=== PATIENT | female | born 1955 | race Caucasian/White ===

== ENCOUNTER 2020-06-06 23:49 | Inpatient (IN) | payer BC ==
--- OUTSIDE RECORDS SUMMARY | 2020-06-06 23:52 | XMS REPORT | Continuity of Care Document ---
:1955 Author Organization [facility] t Address [address] [place] [address] Care Team Providers Name Role Phone Kael MEADOWS MD, A Primary Care Physician Yadira MURPHY Attending Clinician Unavailable Kaci PARSONS, R. 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 2-02 [facility] disease disease 00:00: st involving involving 00 [place] 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 pectoris SOB SOB Disease Active [place] (shortness (shortness 2-02 Me thodi of breath) of breath) 00:00: st 00 Aortic Aortic Disease Active [place] valve valve 2-02 [facility] disorder disorder 00:00: st 00 Allergies, Adverse Reactions, Alerts Allergy Allergy Status Severity Reaction(s) Onset Inactive Treating Comm ents Source Name Type Date Date Clinician Latex, Propensi Active Itching [place] Natural ty to Methodi Rubber adverse st reaction s to drug Family History Family Member Diagnosis Comments Start Date Stop Date Source Natural father Cancer [facility] Natural mother Heart disease [place] [facility] Social History Social Habit Start Date Stop Date Quantity Comments Source History [facility] Alcohol Std Drinks History [facility] Alcohol Binge Alcohol intake 2018-03-19 2018-03-19 Current [place] [facility] 00:00:00 00:00:00 non-drinker of alcohol (finding) History SDOH 2018-03-19 2018-03-19 1 [place] [facility] Alcohol Frequency 00:00:00 00:00:00 Tobacco use and 2018-03-19 2018-03-19 Never used [place] Ryan [facility]ist exposure 00:00:00 00:00:00 [birth year] [place] [facility] 00:00:00 00:00:00 Smoking Status Start Date Stop Date Source Former smoker 2018-03-19 00:00:00 2018-03-19 00:00:00 [place] [facility] Medications Ordered Filled Start Stop Current Ordering Indication Dosage Frequency Signature Comments Components Source Medication Medication Date Date Medication? Clinician (SIG) Name Name lisinopriL- Yes Aortic 1{tbl} QD Take 1 [place] hydrochloro 1-25 valve tablet by [place] thodi thiazide 00:00: disorder mouth st (PRINZIDE) 00 daily. 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 st enteric 47 coated tablet fexofenadin Yes Take by Timmy roberto e HCl 8- mouth as Methodi (JAYCOB 11:39: needed. st ODT ORAL) 47 cetirizine Yes 10mg Q24H Take 10 mg [place] (ZyrTEC) 10 8-13 by mouth Meth denis MG tablet 11:39: daily as st 47 needed for allergies. mvit,calc,m Yes Take by Timmy roberto in-folic 8- mouth. [facility] [id number] 11:39: st 200 mcg 47 tablet coenzyme Yes [place] Q10 (CO 09-23 [facility] Q-10) 100 00:00: st mg capsule 00 cholecalcif Yes Enrrique severino alex, 09-17 [facility] vitamin D3, 00:00: st (VITAMIN 00 D3) 5,000 unit tablet docusate Yes [place] sodium 01 [facility] (COLACE) 00:00: st 100 MG 00 capsule ferrous Yes [place] sulfate 325 7-17 [facility] (65 FE) MG 00:00: st tablet 00 sertraline Yes [place] (ZOLOFT) 7-15 [facility] 100 MG 00:00: st tablet 00 Vital Signs Vital Name Observation Time Observation Value Comments Source Systolic blood 2019-09-27 11:07:00 123 mm[Hg] Enrrique n [facility] pressure Diastolic blood 2019-09-27 11:07:00 80 mm[Hg] [place] on [facility] pressure Heart rate 2019-09-27 11:07:00 70 /min Marino Elliott Body height 2019-09-27 11:07:00 154.9 cm Marino Elliott Body weight 2019-09-27 11:07:00 129.275 kg Marino Elliott BMI 2019-09-27 11:07:00 53.85 kg/m2 Marino Elliott Procedures This patient has no known procedures. Plan of Care Planned Activity Planned Date Details Comments Source Future Scheduled 2020-09-16 INFLUENZA VACCINE [place] [facility] Test 00:00:00 [code = INFLUENZA VACCINE] Future Scheduled 2006 BREAST CANCER [facility] Test 00:00:00 SCREENING [code = BREAST CANCER SCREENING] Future Scheduled 2006 COLONOSCOPY SCREENING [place] [facility] Test 00:00:00 [code = COLONOSCOPY SCREENING] Future Scheduled 2006 SHINGLES VACCINES [place] [facility] Test 00:00:00 (#1) [code = SHINGLES VACCINES (#1)] Future Scheduled 1977 Screening for [facility] Test 00:00:00 malignant neoplasm of cervix (procedure) [code = 066165067] Future Scheduled 1974 Hepatitis C screening [place] [facility] Test 00:00:00 (procedure) [code = 187064200] Future Scheduled 1972 COVID-19 VACCINE (1) Timmy ston [facility] Test 00:00:00 [code = COVID-19 VACCINE (1)] Encounters Start End Encounter Admission Attending Care Care Encounter Source Date/Time Date/Time Type Type Clinicians Facility Department ID 2019-09-27 2019-09-27 Outpatient [facility] [id number] 395 [place] 00:00:00 00:00:00 [facility] [address] Results This patient has no known results.
[2020-06-07 00:56] LABS: Absolute Lymphocytes (CBC) 1.4 K/uL (0.7-4.9); Basophils % 1.1 % (0-1.3); Hematocrit 40.9 % (36.0-45.0); Lymphocytes % 14.7 % (15.3-44.8); MPV 8.1 fL (7.6-11.3); RBC Red Blood Cell Count 5.03 M/uL (3.86-4.86)
[2020-06-07] MEDS ORDERED: FAMOTIDINE 20 MG/2 ML VIAL IV ONE (01:01)
[2020-06-07] MEDS ORDERED: MORPHINE 2 MG/ML SYR ONE ×2 (01:01→03:08)
[2020-06-07] MEDS ORDERED: ONDANSETRON 4 MG/2 ML VIAL ONE ×3 (01:01→09:26)
[2020-06-07] MEDS ORDERED: NA CHLORIDE 0.9% 1,000 ML ONE ×3 (01:01→14:28)
[2020-06-07 01:03] LABS: ALT/SGPT 19 U/L (12-78); AST/SGOT 14 U/L (15-37); Albumin 3.5 g/dL (3.4-5.0); Alkaline Phosphatase 115 U/L (45-117); BUN Blood Urea Nitrogen 11 mg/dL (7-18); Bicarbonate 28 mmol/L (21-32); Bilirubin Direct < 0.1 mg/dL (0-0.2); Bilirubin Total 0.3 mg/dL (0.2-1.0); Glucose Level 114 mg/dL (74-106); Lipase 172 U/L (73-393); Magnesium 1.9 mg/dL (1.8-2.4); Potassium 3.5 mmol/L (3.5-5.1); Protein, Total 7.6 g/dL (6.4-8.2); Sodium Level 142 mmol/L (136-145); Troponin (Emerg Dept Use Only) < 0.02 ng/mL (0.0-0.045)
[2020-06-07] MEDS ORDERED: PIPER/TAZO/NS 3.375gm 3.375 GM/100 ML BAG ONE ×4 (02:35→18:36)
[2020-06-07] MEDS ORDERED: NA CHLORIDE 0.9% 500 ML ONE (02:35)
--- NOTE | 2020-06-07 03:09 | EDPHYS ---
Physician Documentation [facility] Name: Kindra Novoa Age: 64 yrs Sex: Female : 1955 Arrival Date: 06/06/2020 Time: 23:50 Bed 5 Private MD: ED Physician Esa Swain HPI: 06/07 00:39 This 64 yrs old Female presents to ER via Wheelchair with complaints of mingo Abdominal Pain. 00:39 The patient presents with abdominal pain in the upper abdomen, abdominal distention in mingo the upper abdomen, in the lower abdomen. Onset: The symptoms/episode began/occurred 14 day(s) ago. The symptoms do not radiate. Associated signs and symptoms: none. The symptoms are described as burning, crampy. Modifying factors: The symptoms are alleviated by nothing, the symptoms are aggravated by food. Severity of pain: At its worst the pain was mild moderate in the emergency department the pain is unchanged. The patient has experienced similar episodes in the past, a few times. Historical: - Allergies: 00:03 Latex, Natural Rubber; iw 00:03 BUSPIRONE; iw - Home Meds: 00:03 bupropion HCl 75 mg Oral tab 1 tab 3 times per day [Active]; ferrous sulfate 325 mg (65 iw mg iron) Oral tab daily [Active]; levothyroxine 25 mcg tab 1 tab once daily [Active]; lisinopril-hydrochlorothiazide 10-12.5 mg oral tab 1 tab once daily [Active]; metformin 500 mg Oral tr24 1 tab once daily [Active]; metoprolol tartrate 50 mg Oral tab 1 tab 2 times per day [Active]; sertraline 50 mg oral tab 1 tab once daily [Active]; sertraline 100 mg oral tab 1 tab nightly [Active]; naltrexone 50 mg oral tab 1 tab once daily [Active]; - PMHx: 00:03 Colitis; Hypothyroidism; Hypertension; Depression; iw - PSHx: 00:03 None; iw - Immunization history:: Adult Immunizations not up to date. - Social history:: Smoking status: Patient denies any tobacco usage or history of. - Family history:: not pertinent. ROS: 00:39 Constitutional: Negative for fever, chills, and weight loss, Eyes: Negative for injury, mingo pain, redness, and discharge, ENT: Negative for injury, pain, and discharge, Neck: Negative for injury, pain, and swelling, Cardiovascular: Negative for chest pain, palpitations, and edema, Respiratory: Negative for shortness of breath, cough, wheezing, and pleuritic chest pain, Back: Negative for injury and pain, : Negative for injury, bleeding, discharge, and swelling, MS/Extremity: Negative for injury and deformity, Skin: Negative for injury, rash, and discoloration, Neuro: Negative for headache, weakness, numbness, tingling, and seizure, Psych: Negative for depression, anxiety, suicide ideation, homicidal ideation, and hallucinations, Allergy/Immunology: Negative for hives, rash, and allergies, Endocrine: Negative for neck swelling, polydipsia, polyuria, polyphagia, and marked weight changes, Hematologic/Lymphatic: Negative for swollen nodes, abnormal bleeding, and unusual bruising. 00:39 Abdomen/GI: Positive for abdominal pain, nausea and vomiting, abdominal cramps, abdominal distension. Exam: 00:43 Constitutional: This is a well developed, well nourished patient who is awake, alert, mingo and in no acute distress. Head/Face: Normocephalic, atraumatic. Eyes: Pupils equal round and reactive to light, extra-ocular motions intact. Lids and lashes normal. Conjunctiva and sclera are non-icteric and not injected. Cornea within normal limits. Periorbital areas with no swelling, redness, or edema. ENT: Nares patent. No nasal discharge, no septal abnormalities noted. Tympanic membranes are normal and external auditory canals are clear. Oropharynx with no redness, swelling, or masses, exudates, or evidence of obstruction, uvula midline. Mucous membranes moist. Neck: Trachea midline, no thyromegaly or masses palpated, and no cervical lymphadenopathy. Supple, full range of motion without nuchal rigidity, or vertebral point tenderness. No Meningismus. Chest/axilla: Normal chest wall appearance and motion. Nontender with no deformity. No lesions are appreciated. Cardiovascular: Regular rate and rhythm with a normal S1 and S2. No gallops, murmurs, or rubs. Normal PMI, no JVD. No pulse deficits. Respiratory: Lungs have equal breath sounds bilaterally, clear to auscultation and percussion. No rales, rhonchi or wheezes noted. No increased work of breathing, no retractions or nasal flaring. Back: No spinal tenderness. No costovertebral tenderness. Full range of motion. Female : Normal external genitalia. Skin: Warm, dry with normal turgor. Normal color with no rashes, no lesions, and no evidence of cellulitis. MS/ Extremity: Pulses equal, no cyanosis. Neurovascular intact. Full, normal range of motion. Neuro: Awake and alert, GCS 15, oriented to person, place, time, and situation. Cranial nerves II-XII grossly intact. Motor strength 5/5 in all extremities. Sensory grossly intact. Cerebellar exam normal. Normal gait. Psych: Awake, alert, with orientation to person, place and time. Behavior, mood, and affect are within normal limits. 00:43 Abdomen/GI: Inspection: abdomen appears normal, Bowel sounds: normal, Palpation: moderate abdominal tenderness, in the umbilical area, right upper quadrant and left upper quadrant, Liver: no appreciated palpable abnormalities, Hernia: not appreciated. 01:41 ECG was reviewed by the Attending Physician. mingo Vital Signs: 06/06 23:59 BP 137 / 108; Pulse 81; Resp 16; Temp 97.9(O); Pulse Ox 96% on R/A; Weight 127.01 kg; iw Height 5 ft. 0 in. (152.40 cm); Pain 11/25; 06/07 02:38 BP 128 / 75; Pulse 74; Resp 16; Pulse Ox 100% on R/A; rv 03:58 BP 135 / 78; Pulse 68; Resp 16; Pulse Ox 94% on 2 lpm NC; rv 07:12 BP 119 / 67; Pulse 61; Resp 11; Pulse Ox 99% on R/A; ld1 09:00 BP 134 / 76; Pulse 69; Resp 12; Pulse Ox 96% on 2 lpm NC; Pain 8/10; ld1 10:55 BP 117 / 70; Pulse 63; Resp 13; Pulse Ox 99% on 2 lpm NC; ld1 12:47 BP 128 / 67; Pulse 77; Resp 12; Pulse Ox 98% on 2 lpm NC; Pain 4/10; ld1 14:00 BP 106 / 62; Pulse 68; Resp 12; Temp 97.7; Pulse Ox 98% on 2 lpm NC; Pain 3/10; ld1 15:50 BP 116 / 70; Pulse 66; Resp 12; Pulse Ox 98% on 2 lpm NC; Pain 3/10; ld1 06/06 23:59 Body Mass Index 54.68 (127.01 kg, 152.40 cm) iw MDM: 00:20 Patient medically screened. imngo 00:44 Differential diagnosis: bowel obstruction, coronary artery disease, cholecystitis, mingo Cholelithiasis, gastritis, gastroesophageal reflux disease, non-specific abd pain, pancreatitis, Peptic Ulcer Disease. Data reviewed: vital signs, nurses notes, lab test result(s), EKG, radiologic studies, CT scan, plain films. 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 Test interpretation: by ED physician or midlevel provider: ECG, plain radiologic studies. Counseling: I had a detailed discussion with the patient and/or guardian regarding: the historical points, exam findings, and any diagnostic results supporting the discharge/admit diagnosis, lab results, radiology results. 06/07 00:19 Order name: Basic Metabolic Panel; Complete Time: 02:01 06/07 00:19 Order name: CBC with Diff; Complete Time: 02: 06/07 00:19 Order name: Hepatic Function; Complete Time: 02:01 06/07 00:19 Order name: Lipase; Complete Time: 02:01 06/07 00:45 Order name: Troponin (Emerg Dept Use Only); Complete Time: 02:01 [facility] 06/07 00:45 Order name: Magnesium; Complete Time: 02:01 [facility] 06/07 03:31 Order name: SARS-COV-2 RT PCR [facility] 06/07 00:38 Order name: XRAY Chest (1 view) [facility] 06/07 00:38 Order name: CT Abd/Pelvis - IV Contrast Only [facility] 06/07 06:18 Order name: CBC with Automated Diff [facility] 06/07 06:42 Order name: Comprehensive Metabolic Panel [facility] 06/07 07:11 Order name: T4 Free EDCT 06/07 07:11 Order name: Thyroid Stimulating Hormone [facility] 06/07 08:30 Order name: Urinalysis [facility] 06/07 08:55 Order name: Urine Microscopic Only [facility] 06/07 16:14 Order name: RAD [facility] 06/07 00:19 Order name: IV Saline Lock; Complete Time: 00:19 06/07 00:19 Order name: Labs collected and sent; Complete Time: 00:19 rv 06/07 00:38 Order name: EKG; Complete Time: 00:39 06/07 00:38 Order name: Cardiac monitoring; Complete Time: 00:51 06/07 00:38 Order name: EKG - Nurse/Tech; Complete Time: 00:51 06/07 00:38 Order name: O2 Per Protocol; Complete Time: 00:51 06/07 00:38 Order name: O2 Sat Monitoring; Complete Time: 00:51 06/07 02:12 Order name: NPO; Complete Time: 02:13 06/07 04:08 Order name: CONS Physician Consult EDMS EC:41 Rate is 64 beats/min. Rhythm is regular. QRS [place] is Normal. [place] interval is normal. QRS mingo interval is normal. QT interval is normal. No Q waves. T waves are Normal. No ST changes noted. Clinical impression: NSR w/ Non-specific ST/T Changes and No evidence of ischemia. Interpreted by me. Reviewed by me. Administered Medications: 00:48 Drug: Pepcid (famotidine) 20 mg Route: IVP; Site: right wrist; rr5 04:10 Follow up: Response: No adverse reaction rv 00:50 Drug: morphine 2 mg {Note: rass 0.} Route: IVP; Site: right wrist; rr5 00:50 Drug: Zofran (Ondansetron) 4 mg Route: IVP; Site: right wrist; rr5 04:06 Follow up: Response: No adverse reaction rv 00:50 Drug: NS 0.9% 500 ml Route: IV; Rate: bolus; Site: right wrist; rr5 04:05 Follow up: IV Status: Completed infusion; IV Intake: 500ml rv 01:31 Drug: NS 0.9% 1000 ml Route: IV; Rate: 125 ml/hr; Site: right wrist; rr5 04:05 Follow up: IV Status: Completed infusion rv 02:27 Drug: NS 0.9% 500 ml Route: IV; Rate: bolus; Site: right wrist; iw 02:58 Follow up: IV Status: Completed infusion; IV Intake: 500ml rv 02:37 Drug: Zosyn 3.375 grams Route: IVPB; Infused Over: 60 mins; Site: right wrist; rv 04:05 Follow up: IV Status: Completed infusion; IV Intake: 100ml rv 02:58 Drug: morphine 2 mg Route: IVP; Site: right wrist; rv 04:09 Follow up: Response: No adverse reaction rv 03:23 Drug: morphine 4 mg Route: IVP; Site: right wrist; rv 04:04 Follow up: Response: No adverse reaction rv 03:23 Drug: Zofran (Ondansetron) 4 mg Route: IVP; Site: right wrist; rv 04:04 Follow up: Response: No adverse reaction rv Disposition: 06/07/20 03:08 Hospitalization ordered by Leon Oliveira for Inpatient Admission. Preliminary diagnosis are Abdominal tenderness, Ileus, unspecified, Diverticulitis of large intestine without perforation or abscess without bleeding, Obesity, unspecified. - Bed requested for Telemetry/MedSurg (Inpatient). - Status is Inpatient Admission. bp - Condition is Fair. - Problem is new. - Symptoms are unchanged. Signatures: Dispatcher [employer] EDTracy Holcomb, RN Esa Green MD MD cha Williams, Irene RN CHRISTIANO iw Danny Nam, RN RN Dov Pro RN RN rv Kevin Rascon, RN RN rr5 Corrections: (The following items were deleted from the chart) 00:20 00:20 IV Saline Lock ordered. rr5 rr5 00:20 00:20 Labs collected and sent ordered. rr5 rr5 00:27 00:20 BASIC METABOLIC PANEL+C.LAB.BRZ ordered. EDCT EDCT 00:27 00:20 CBC+H.LAB.BRZ ordered. EDCT EDCT 00:27 00:20 HEPATIC FUNCTION+C.LAB.BRZ ordered. EDCT EDMS 00:27 00:20 LIPASE+C.LAB.BRZ ordered. EDCT EDMS 00:44 00:39 MAGNESIUM+C.LAB.BRZ ordered. EDCT EDCT 00:44 00:39 TROPONIN (EMERG DEPT USE ONLY)+C.LAB.BRZ ordered. EDCT EDMS 02:41 02:12 CORONAVIRUS+MR.LAB.BRZ ordered. EDCT EDMS 04:41 03:08 Hospitalization Ordered by Leon Oliveira MD for Inpatient Admission. Preliminary iw diagnosis is Abdominal tenderness; Ileus, unspecified; Diverticulitis of large intestine without perforation or abscess without bleeding; Obesity, unspecified. Bed requested for Telemetry/MedSurg (Inpatient). Status is Inpatient Admission. Condition is Fair. Problem is new. Symptoms are unchanged. mingo 16:13 04:41 06/07/2020 03:08 Hospitalization Ordered by Leon Oliveira MD for Inpatient dw Admission. Preliminary diagnosis is Abdominal tenderness; Ileus, unspecified; Diverticulitis of large intestine without perforation or abscess without bleeding; Obesity, unspecified. Bed requested for [facility] ER HOLD. Status is Inpatient Admission. Condition is Fair. Problem is new. Symptoms are unchanged. iw 17:38 16:13 06/07/2020 03:08 Hospitalization Ordered by Leon Oliveira MD for Inpatient bp Admission. Preliminary diagnosis is Abdominal tenderness; Ileus, unspecified; Diverticulitis of large intestine without perforation or abscess without bleeding; Obesity, unspecified. Bed requested for Telemetry/MedSurg (Inpatient). Status is Inpatient Admission. Condition is Fair. Problem is new. Symptoms are unchanged. dw
--- NOTE | 2020-06-07 03:09 | ER ---
Nurse's Notes [facility] Name: Kindra Novoa Age: 64 yrs Sex: Female : 1955 Arrival Date: 06/06/2020 Time: 23:50 Bed 5 Private MD: Diagnosis: Abdominal tenderness;Ileus, unspecified;Diverticulitis of large intestine without perforation or abscess without bleeding;Obesity, unspecified Presentation: 06/06 23:59 Chief complaint: Patient states: upper abd pain X 2 weeks, hurts more after eating, no iw N/VD. Coronavirus screen: At this time, the client does not indicate any symptoms associated with coronavirus-19. Ebola Screen: Patient negative for fever greater than or equal to 101.5 degrees Fahrenheit, and additional compatible Ebola Virus Disease symptoms Patient denies exposure to infectious person. Patient denies travel to an Ebola-affected area in the 21 days before illness onset. No symptoms or risks identified at this time. Initial Sepsis Screen: Does the patient meet any 2 criteria? No. Patient's initial sepsis screen is negative. Does the patient have a suspected source of infection? No. Patient's initial sepsis screen is negative. Risk Assessment: Do you want to hurt yourself or someone else? Patient reports no desire to harm self or others. Onset of symptoms was May 26, 2020. 23:59 Method Of Arrival: Wheelchair iw 23:59 Acuity: KAROL 3 iw Historical: - Allergies: 06/07 00:03 Latex, Natural Rubber; iw 00:03 BUSPIRONE; iw - Home Meds: 00:03 bupropion HCl 75 mg Oral tab 1 tab 3 times per day [Active]; ferrous sulfate 325 mg (65 iw mg iron) Oral tab daily [Active]; levothyroxine 25 mcg tab 1 tab once daily [Active]; lisinopril-hydrochlorothiazide 10-12.5 mg oral tab 1 tab once daily [Active]; metformin 500 mg Oral tr24 1 tab once daily [Active]; metoprolol tartrate 50 mg Oral tab 1 tab 2 times per day [Active]; sertraline 50 mg oral tab 1 tab once daily [Active]; sertraline 100 mg oral tab 1 tab nightly [Active]; naltrexone 50 mg oral tab 1 tab once daily [Active]; - PMHx: 00:03 Colitis; Hypothyroidism; Hypertension; Depression; iw - PSHx: 00:03 None; iw - Immunization history:: Adult Immunizations not up to date. - Social history:: Smoking status: Patient denies any tobacco usage or history of. - Family history:: not pertinent. Screenin:30 Abuse screen: Denies threats or abuse. Denies injuries from another. Nutritional rr5 screening: No deficits noted. Tuberculosis screening: No symptoms or risk factors identified. 00:30 Fall Risk IV access (20 points). Mental Status- Oriented to own ability (0 pts). rr5 Assessment: 00:30 General: Appears in no apparent distress. uncomfortable, Behavior is calm, cooperative, rr5 appropriate for age. Pain: Complains of pain in epigastric area and left upper quadrant Pain currently is 10 out of 10 on a pain scale. Quality of pain is described as aching, Pain began gradually, Is intermittent. Neuro: Level of Consciousness is awake, alert, obeys commands, Oriented to person, place, time, situation. Cardiovascular: Capillary refill < 3 seconds Patient's skin is warm and dry. Respiratory: Airway is patent Respiratory effort is even, unlabored, Respiratory pattern is regular, symmetrical. GI: Abdomen is round obese, Abd is soft and non tender Reports upper abdominal pain, nausea, vomiting. : No signs and/or symptoms were reported regarding the genitourinary system. EENT: No signs and/or symptoms were reported regarding the EENT system. Derm: Skin is intact, is healthy with good turgor, Skin temperature is warm. Musculoskeletal: Capillary refill < 3 seconds. 01:32 Reassessment: Patient appears in no apparent distress at this time. Patient is alert, rr5 oriented x 3, equal unlabored respirations, skin warm/dry/pink. Patient states feeling better. Patient states symptoms have improved. 07:00 Reassessment: RECD REPORT FROM BOBBI ALVARADO. 64YO WF P/W BOWEL PERFORATION, TO BE TREATED bp WITHI IV ABX PER DR AGUIRRE. SEE [facility]. 11:02 Reassessment: Patient and/or family updated on plan of care and expected duration. Pain ld1 level reassessed. Patient is alert, oriented x 3, equal unlabored respirations, skin warm/dry/pink. Patient laying in bed talking with at bedside. 12:47 Reassessment: Patient and/or family updated on plan of care and expected duration. Pain ld1 level reassessed. Patient is alert, oriented x 3, equal unlabored respirations, skin warm/dry/pink. 15:50 Reassessment: Patient and/or family updated on plan of care and expected duration. Pain ld1 level reassessed. Patient is alert, oriented x 3, equal unlabored respirations, skin warm/dry/pink. Patient states her N/V is doing much better. Pain has decreased to a 3/10. No complaints at this time. Patient states feeling better. Patient states symptoms have improved. 17:37 Reassessment: ADMIT COMPLETE, PT CARLOS EDUARDO TO GERI ALVARADO. bp Vital Signs: 06/06 23:59 BP 137 / 108; Pulse 81; Resp 16; Temp 97.9(O); Pulse Ox 96% on R/A; Weight 127.01 kg; iw Height 5 ft. 0 in. (152.40 cm); Pain 10/10; 06/07 02:38 BP 128 / 75; Pulse 74; Resp 16; Pulse Ox 100% on R/A; rv 03:58 BP 135 / 78; Pulse 68; Resp 16; Pulse Ox 94% on 2 lpm NC; rv 07:12 BP 119 / 67; Pulse 61; Resp 11; Pulse Ox 99% on R/A; ld1 09:00 BP 134 / 76; Pulse 69; Resp 12; Pulse Ox 96% on 2 lpm NC; Pain 8/10; ld1 10:55 BP 117 / 70; Pulse 63; Resp 13; Pulse Ox 99% on 2 lpm NC; ld1 12:47 BP 128 / 67; Pulse 77; Resp 12; Pulse Ox 98% on 2 lpm NC; Pain 4/10; ld1 14:00 BP 106 / 62; Pulse 68; Resp 12; Temp 97.7; Pulse Ox 98% on 2 lpm NC; Pain 3/10; ld1 15:50 BP 116 / 70; Pulse 66; Resp 12; Pulse Ox 98% on 2 lpm NC; Pain 3/10; ld1 06/06 23:59 Body Mass Index 54.68 (127.01 kg, 152.40 cm) iw ED Course: 06/06 23:50 Patient arrived in ED. am4 06/07 00:00 Triage completed. iw 00:13 Kevin Rascon, RN is Primary Nurse. rr5 00:20 Esa Swain MD is Attending Physician. mingo 00:30 Patient has correct armband on for positive identification. Bed in low position. Call rr5 light in reach. Side rails up X 1. school lunch monitor on. Pulse ox on. NIBP on. 00:32 Arm band placed on right wrist. rr5 00:40 Inserted saline lock: 20 gauge in right wrist, using aseptic technique. Blood collected.rr5 00:51 EKG done, by ED staff, reviewed by Esa Swain MD. rr5 01:11 XRAY Chest (1 view) In Process Unspecified. EDMS 01:35 CT Abd/Pelvis - IV Contrast Only In Process Unspecified. EDMS 03:03 Leon Oliveira MD is Hospitalizing Provider. mingo 04:03 No provider procedures requiring assistance completed. IV is patent, with fluids rv infusing freely, Patient admitted, IV remains in place. Administered Medications: 00:48 Drug: Pepcid (famotidine) 20 mg Route: IVP; Site: right wrist; rr5 04:10 Follow up: Response: No adverse reaction rv 00:50 Drug: morphine 2 mg {Note: rass 0.} Route: IVP; Site: right wrist; rr5 00:50 Drug: Zofran (Ondansetron) 4 mg Route: IVP; Site: right wrist; rr5 04:06 Follow up: Response: No adverse reaction rv 00:50 Drug: NS 0.9% 500 ml Route: IV; Rate: bolus; Site: right wrist; rr5 04:05 Follow up: IV Status: Completed infusion; IV Intake: 500ml rv 01:31 Drug: NS 0.9% 1000 ml Route: IV; Rate: 125 ml/hr; Site: right wrist; rr5 04:05 Follow up: IV Status: Completed infusion rv 02:27 Drug: NS 0.9% 500 ml Route: IV; Rate: bolus; Site: right wrist; iw 02:58 Follow up: IV Status: Completed infusion; IV Intake: 500ml rv 02:37 Drug: Zosyn 3.375 grams Route: IVPB; Infused Over: 60 mins; Site: right wrist; rv 04:05 Follow up: IV Status: Completed infusion; IV Intake: 100ml rv 02:58 Drug: morphine 2 mg Route: IVP; Site: right wrist; rv 04:09 Follow up: Response: No adverse reaction rv 03:23 Drug: morphine 4 mg Route: IVP; Site: right wrist; rv 04:04 Follow up: Response: No adverse reaction rv 03:23 Drug: Zofran (Ondansetron) 4 mg Route: IVP; Site: right wrist; rv 04:04 Follow up: Response: No adverse reaction rv Intake: 02:58 IV: 500ml; Total: 500ml. rv 04:05 IV: 100ml; Total: 600ml. rv 04:05 IV: 500ml; Total: 1100ml. rv Outcome: 03:08 Decision to Hospitalize by Provider. mingo 04:03 Admitted to ER Hold. Please see [facility] for further documentation. rv 04:03 Condition: good 04:03 Instructed on the need for admit. 17:38 Patient left the ED. bp Signatures: Dispatcher [employer] EDMS Esa Swain MD MD cha Williams, Irene, RN RN Danny Nam RN RN bp Vicente, Ronaldo, RN RN rv Kevin Rascon RN RN rr5 Daphne Castañeda am4 Soraida Edmonds RN RN ld1 Corrections: (The following items were deleted from the chart) 07:11 07:08 Reassessment: Patient here for ABD pain, ER HOLD. Report received by CHRISTIANO Kraft. See [facility] for orders. ld1 10:58 10:55 BP 117 / 70; Pulse 63bpm; Resp 13bpm; Pulse Ox 90% 2 lpm Nasal Cannula; ld1 ld1
[2020-06-07] MEDS ORDERED: MORPHINE 4 MG/ML SYR ONE ×3 (03:35→11:55)
[2020-06-07] MEDS ORDERED: DIAZEPAM 10 MG/2 ML INJ SYRINGE ONE (04:14)
[2020-06-07 04:27] VITALS: BMI 54.6
--- NOTE | 2020-06-07 04:27 | P.HP ---
Certification for Inpatient Patient admitted to: Inpatient With expected LOS: >2 Midnights Patient will require the following post-hospital care: None Practitioner: I am a practitioner with admitting privileges, knowledge of patient current condition, hospital course, and medical plan of care. Services: Services provided to patient in accordance with Admission requirements found in Title 42 Section 412.3 of the Code of Federal Regulations <NilsonDavid Blair - Last Filed: 06/07/20 04:35> Patient History Date of Service: 06/07/20 Reason for admission: LBO History of Present Illness: Ms. Novoa is a 64 yo F with HTN, hypothyroidism here today for 2 weeks of worsening 10/10 abdominal pain and bloating. She reports night sweats, chills, nausea, vomiting, and constipation. Pain worse with eating, relieved by hot showers. She said she has had similar flares of abdominal pain in the past with certain food sbut never this bad. CT scan some distended loops of small bowel with air fl8uid levels measuring up to 4cm in diameter suggestive of ileus obstruction and fluid and stranding in the RLQ adjacent to proximal colon and terminal lumen with scattered locuses of air which may represent intraperitoneal free air. There are minimal colonic diverticula and bowel wall thickening involving adjacent loop of distended small bowel which may be reactive, suggestive of perforated diverticulitis or colitis. - Past Medical/Surgical History Diabetic: No -: HTN -: prediabetes -: hypothyroidism -: depression Past Surgical History: Patient denies surgical history - Family History Father -: Cancer Mother -: Heart disease - Social History Smoking Status: Never smoker Alcohol use: No CD- Drugs: No Caffeine use: Yes Place of Residence: Home <David Devine - Last Filed: 06/07/20 04:35> Date of Service: 06/07/20 <Leon Oliveira - Last Filed: 06/08/20 17:35> Allergies latex [Latex] Allergy (Verified 05/12/11 07:41) Itching/Hives/Rash Latex, Natural Rubber Allergy (Verified 06/07/20 05:52) Unknown Home Medications: Ciprofloxacin HCl [Cipro*] 500 mg PO BID 10 Days tab 02/15/13 Mesalamine [Pentasa*] 1,000 mg PO QID #120 capsule.er 02/15/13 metroNIDAZOLE [Flagyl*] 500 mg PO TID 10 Days tablet 02/15/13 Review of Systems General: Chills, Sweats, As per HPI Eyes: Unremarkable ENT: Unremarkable Respiratory: Unremarkable Cardiovascular: Unremarkable Gastrointestinal: Nausea, Vomiting, Abdominal Pain, Constipation, As per HPI Genitourinary: Unremarkable Musculoskeletal: Back Pain Integumentary: Unremarkable Neurological: Unremarkable Lymphatics: Unremarkable <NilsonDavid - Last Filed: 06/07/20 04:35> Physical Examination - Physical Exam General: Alert, In no apparent distress, Oriented x3, Cooperative HEENT: Atraumatic, Normocephalic, PERRLA, Mucous membr. moist/pink Neck: Supple, 2+ carotid pulse no bruit, JVD not distended, No Thyromegaly, No LAD Respiratory: Clear to auscultation bilaterally, Normal air movement Cardiovascular: No edema, Normal pulses, Regular rate/rhythm, Normal S1 S2, No gallops, No rubs, No murmurs Capillary refill: <2 Seconds Gastrointestinal: Hypoactive, Soft and benign, No ascites, No masses, No rebound, No guarding Musculoskeletal: No clubbing, No swelling, No contractures, No erythema, No tenderness, No warmth Integumentary: No rashes, No breakdown, No significant lesion, No tenderness/swelling, No erythema, No warmth Neurological: Normal speech, Normal strength at 5/5 x4 extr, Normal tone, Sensation intact, Cranial nerves 3-12 intact, Normal affect Lymphatics: No axilla or inguinal lymphadenopathy - Studies Laboratory Data (last 24 hrs) 06/07/20 00:38: Magnesium Cancelled 06/07/20 00:20: WBC Cancelled, Hgb Cancelled, Hct Cancelled, Plt Count Cancelled 06/07/20 00:20: Sodium Cancelled, Potassium Cancelled, BUN Cancelled, Creatinine Cancelled, Glucose Cancelled, Total Bilirubin Cancelled, AST Cancelled, ALT Cancelled, Alkaline Phosphatase Cancelled, Lipase Cancelled 06/07/20 00:20: WBC 9.80, Hgb 13.1, Hct 40.9, Plt Count 520 H 06/07/20 00:20: Sodium 142, Potassium 3.5, BUN 11, Creatinine 0.91, Glucose 114 H, Magnesium 1.9, Total Bilirubin 0.3, AST 14 L, ALT 19, Alkaline Phosphatase 115, Lipase 172 <David Devine S - Last Filed: 06/07/20 04:35> Assessment and Plan - Problems (Diagnosis) (1) Hypertension Current Visit: Yes Status: Chronic Qualifiers: Hypertension type: essential hypertension Qualified Code(s): I10 - Essential (primary) hypertension (2) Prediabetes Current Visit: Yes Status: Chronic (3) Hypothyroidism Current Visit: Yes Status: Chronic Qualifiers: Hypothyroidism type: unspecified Qualified Code(s): E03.9 - Hypothyroidism, unspecified (4) Depression Current Visit: Yes Status: Chronic Qualifiers: Depression Type: unspecified Qualified Code(s): F32.9 - Major depressive disorder, single episode, unspecified (5) Obstructive ileus of small intestine due to impaction Current Visit: Yes Status: Acute - Plan Surgery consulted clear liquid diet and continue IVF, Zosyn and Flagyl for abx coverage and morphine 4mg q2hr for pain control per surgery recommendations will continue to monitor BP, currently stable will continue to monitor BG, currently stable will reconcile and continue other home medications Discharge Plan: Home Plan to discharge in: 48 Hours - Advance Directives Does patient have a Living Will: No Does patient have a Durable POA for Healthcare: No - Code Status/Comfort Care Code Status Assessed: Yes (full code) Critical Care: No Time Spent Managing Pts Care (In Minutes): 70 <David Devine - Last Filed: 06/07/20 04:35> Date of Service: 06/07/20 Agree with findings as mentioned above. Await General surgery recommendations. <Leon Oliveira - Last Filed: 06/08/20 17:35>
[2020-06-07] MEDS: NA CHLORIDE 0.9% 1,000 ML IV SCH ×2 (04:30→15:00)
[2020-06-07] MEDS ORDERED: METRONIDAZOLE 500mg IVPB 500 MG/100 ML BAG IV ONE ×2 (04:59→11:55)
[2020-06-07] MEDS: METRONIDAZOLE 500mg IVPB 500 MG/100 ML BAG IV SCH ×3 (05:53→18:10)
[2020-06-07 06:10] LABS: Absolute Lymphocytes (CBC) 1.4 K/uL (0.7-4.9); Basophils % 0.7 % (0-1.3); Hematocrit 36.1 % (36.0-45.0); Lymphocytes % 15.1 % (15.3-44.8); MPV 7.8 fL (7.6-11.3); RBC Red Blood Cell Count 4.43 M/uL (3.86-4.86)
[2020-06-07 06:41] LABS: Albumin 2.9 g/dL (3.4-5.0); Bilirubin Total 0.4 mg/dL (0.2-1.0); Potassium 3.5 mmol/L (3.5-5.1); Protein, Total 6.7 g/dL (6.4-8.2)
--- NOTE | 2020-06-07 07:55 | RAD REPORT ---
EXAM DESCRIPTION: RAD - Chest Single View - 06/07/2020 1:11 am CLINICAL HISTORY: ABDOMINAL DISTENTION COMPARISON: Two view chest August 2016 TECHNIQUE: AP portable chest image was obtained 06/07/2020 1:11 am . FINDINGS: Lung volumes are low. Under penetrated portable technique and large body habitus further l imit the examination. No focal lung parenchymal process seen. Interstitial pattern is accentuated by the low lung volumes. Heart and vasculature are normal. No measurable pleural effusion and no pneumot horax. No acute bony abnormality seen. No acute aortic findings suspected. IMPRESSION: No acute cardiopulmonary finding confirmed. Low lung volumes accentuate the interstitial pattern which could potentially mask minimal interstitia l edema or infiltrate.
[2020-06-07] MEDS: PIPER/TAZO/NS 3.375gm 3.375 GM/100 ML BAG IVPB SCH ×3 (08:00→18:28)
[2020-06-07] MEDS ORDERED: ENOXAPARIN 40 MG/0.4 ML SQ ONE (08:11)
[2020-06-07] MEDS: ENOXAPARIN 40 MG/0.4 ML SQ SCH (08:23)
[2020-06-07 08:29] LABS: Urine Appearance CLEAR (Clear); Urine Bilirubin NEGATIVE (Negataive); Urine Blood TRACE (Negative); Urine Color YELLOW (Yellow); Urine Glucose NEGATIVE (Negative); Urine Protein NEGATIVE (Negative); Urine Specific Gravity >=1.030 (1.005-1.030); Urine Urobilinogen 0.2 mg/dL (0.2-1.0)
[2020-06-07 08:30] LABS: Urine Microscopic Reflex ORDER UMIC
[2020-06-07 08:55] LABS: Urine Bacteria NONE SEEN /HPF (<20); Urine RBC <5 /HPF (NONE SEEN)
[2020-06-07] MEDS: MORPHINE 4 MG/ML SYR IV PRN ×2 (09:00→11:30)
[2020-06-07] MEDS: ONDANSETRON 4 MG/2 ML VIAL IV PRN (09:00)
--- NOTE | 2020-06-07 11:22 | RAD REPORT ---
EXAM DESCRIPTION: CT - Abdomen Pelvis W Contrast - 06/07/2020 6:34 am ADDENDUM #1 THIS REPORT CONTAINS FINDINGS THAT MAY BE CRITICAL TO PATIENT CARE: The findings were verbally discu ssed via telephone conference with Dr. Esa Swain by Dr. Edouard Garber on 06/07/2020 2:12 AM CDT .The results were acknowledged and understood. Electronically signed by: Edouard Garber MD 06/07/2020 2:12 AM CDT End of Addendum CLINICAL HISTORY: The patient is 64 years old and is Female; ABD PAIN TECHNIQUE: Axial computed tomography images of the abdomen and pelvis with intravenous contrast. Sagittal and coronal reformatted images were created and reviewed. This CT exam was performed usin g one or more of the following dose reduction techniques: automated exposure control, adjustment of the mA and/or kV according to patient size, and/or use of iterative reconstruction technique. COMPARISON: No relevant prior studies available. FINDINGS: Lung bases: Unremarkable. No mass. No consolidation. ABDOMEN: Liver: Unremarkable. No mass. Gallbladder and bile ducts: Unremarkable. No calcified stones. No ductal dilation. Pancreas: Unremarkable. No mass. No ductal dilation. Spleen: Unremarkable. No splenomegaly. Adrenals: Unremarkable. No mass. Kidneys and ureters: Scattered simple appearing cysts of the kidney measuring up to 1.7 cm and t he right kidney. ACR White Paper guidelines (Hercaridad, et al. JACR 2018; 15(2):264-273) suggest no follo w-up is necessary. No hydronephrosis. Stomach and bowel: There are some distended loops of small bowel with air-fluid levels measuring up to 4 cm in diameter. Scattered colonic diverticula. No mucosal thickening. PELVIS: Appendix: No findings to suggest acute appendicitis. Bladder: Unremarkable. No mass. Reproductive: Unremarkable as visualized. ABDOMEN and PELVIS: Intraperitoneal space: There is fluid and stranding in the right lower quadrant adjacent to the proximal colon and terminal ileum. There are scattered locules of air, some of which may represent in traperitoneal free air. There are minimal colonic diverticula. There is bowel wall thickening involvi ng an adjacent loop of distended small bowel which may be reactive. Bones/joints: No acute fracture. No dislocation. Soft tissues: Unremarkable. Vasculature: Unremarkable. No abdominal aortic aneurysm. Lymph nodes: Unremarkable. No enlarged lymph nodes. IMPRESSION: 1. There are some distended loops of small bowel with air-fluid levels measuring up to 4 cm in diameter. Findings are suggestive of ileus or obstruction. 2. There is fluid and stranding in the right lower quadrant adjacent to the proximal colon and term inal ileum. There are scattered locules of air, some of which may represent intraperitoneal free air. There are minimal colonic diverticula. There is bowel wall thickening involving an adjacent loop of distended small bowel which may be reactive. Findings are suggestive of perforated diverticulitis o r colitis. Electronically signed by: Edouard Garber MD 06/07/2020 2:03 AM CDT Due to temporary technical issues with the PACS/Fluency reporting system, reports are being signed by the in house radiologist without review as a courtesy to ensure prompt reporting. The interpreting r adiologist is fully responsible for the content of the report.
--- NOTE | 2020-06-07 11:40 | P.CNS ---
Date of Consult: 06/07/20 PC: This 64-year-old female presents emergency room with severe lower abdominal pain for diagnosis and treatment. HPC: Patient is been home with abdominal pain for the last 2 weeks. During that time she has had intermittent bouts of cramping abdominal pain, some nausea, and occasional vomiting. No temperature or fever. Has not had much of an appetite. PMH: Hypertension, diabetes, depression PSHx: Denies any prior surgeries SOC: Allergic to latex SYS REVIEW: States in apart for abdominal pain she has been relatively good health. Pain however just got to the point where she could no longer stand it so she came to the ER for evaluation. Had a colonoscopy but it was a good number of years ago and she is not exactly sure but probably greater than 10. Denies any urinary complaints O/E awake alert vital signs are stable. Patient is afebrile. Does not look septic. HEENT: Not jaundiced Chest: Chest movement equal bilaterally ABD: Patient does have some lower abdominal tenderness no true guarding or rebound. Tenderness appears to be lower midline, about a half spread from the emboli kiss. LOCO: Intact DATA: White cell count normal but does have a left shift, CT scan suggests inflammatory process in the right lower quadrant with portions small-bowel obstruction. There is discussion of free air. But a minimal amount. IMPRESSION: Acute episode of diverticulitis with probable small micro perforation. PLAN: This patient is already 2 weeks in to this episode. There is not appear to be a large abscess or gross contamination of the peritoneal cavity. She has been admitted at this time for IV antibiotics, and pain medicine. We will continue to follow her clinically.
--- NOTE | 2020-06-07 13:09 | P.PN ---
Date of Service: 06/07/20 S: Patient states he feels somewhat better today, having some rumblings in her abdomen. Pain is under control and she feels better than yesterday. Had some nauseated earlier. O: Vital signs are stable, clinically patient looks better. The abdomen is softer, still has some abdominal tenderness. A: Appears to be responding to antibiotics and pain medicine. P: Continue current therapy.
[2020-06-07] MEDS ORDERED: METOCLOPRAMIDE 10 MG/2mL INJ ONE (13:30)
[2020-06-07] MEDS: METOCLOPRAMIDE 10 MG/2mL INJ IV PRN (13:30)
[2020-06-07] MEDS ORDERED: HYDROMORPHONE HCL 1 MG/ML INJ ONE (13:31)
[2020-06-07] MEDS ORDERED: HYDROMORPHONE HCL 1 MG/ML INJ IV ONE (14:03)
--- NOTE | 2020-06-07 16:14 | RAD REPORT ---
EXAM DESCRIPTION: RAD - Abdomen W Erect - 06/07/2020 4:08 pm CLINICAL HISTORY: SBO Pain COMPARISON: Abdomen Pelvis W Contrast dated 06/07/2020 FINDINGS: Several dilated small bowel loops in a stacked pattern are again seen in the mid and left aspect of abdomen. This is compatible with a mild to moderate mechanical obstruction. No suspicious c alcifications. Contrast is seen in the urinary bladder. No evidence of free air. IMPRESSION: Persistent findings of mild to moderate mechanical small-bowel obstruction seen.
[2020-06-08] MEDS: METRONIDAZOLE 500mg IVPB 500 MG/100 ML BAG IV SCH ×5 (00:55→23:46)
[2020-06-08] MEDS: PIPER/TAZO/NS 3.375gm 3.375 GM/100 ML BAG IVPB SCH ×3 (01:34→16:45)
[2020-06-08] MEDS: NA CHLORIDE 0.9% 1,000 ML IV SCH ×3 (01:37→21:00)
[2020-06-08] MEDS ORDERED: PIPER/TAZO/NS 3.375gm 3.375 GM/100 ML BAG ONE ×2 (01:46→02:05)
[2020-06-08 06:36] LABS: Absolute Lymphocytes (CBC) 1.2 K/uL (0.7-4.9); Basophils % 0.2 % (0-1.3); Hematocrit 32.8 % (36.0-45.0); Lymphocytes % 16.7 % (15.3-44.8); MPV 7.6 fL (7.6-11.3); RBC Red Blood Cell Count 3.97 M/uL (3.86-4.86)
[2020-06-08 06:55] LABS: Albumin 2.6 g/dL (3.4-5.0); Bilirubin Total 0.3 mg/dL (0.2-1.0); Phosphorus 2.4 mg/dL (2.5-4.9); Potassium 4.1 mmol/L (3.5-5.1); Protein, Total 5.9 g/dL (6.4-8.2)
[2020-06-08] MEDS ORDERED: CALCIUM ACETATE 667 MG TAB PO SCH (08:00)
--- NOTE | 2020-06-08 08:27 | RAD REPORT ---
EXAM DESCRIPTION: Bhakti Single View06/08/2020 5:18 am CLINICAL HISTORY: Chest pain COMPARISON: June 07, 2020 FINDINGS: Interstitial pattern appears mildly prominent within the right lung. Left lung appears eric ar. Heart is normal size IMPRESSION: Prominence of the interstitial pattern within the right lung may indicate viral pneumon ia or pneumonitis
[2020-06-08] MEDS: ENOXAPARIN 40 MG/0.4 ML SQ SCH (08:51)
[2020-06-08] MEDS: ACETAMINOPHEN 500 MG TAB PO PRN (11:48)
--- NOTE | 2020-06-08 17:37 | P.PN ---
Subjective Date of Service: 06/08/20 No worsening abnormality noted on chest x-ray. No free air. Remains with his obstructive picture. General surgery being covered by Dr. Soriano. NPO at this time. Review of Systems 10-point ROS is otherwise unremarkable Physical Examination - Vital Signs Temperature: 97.8 F Blood Pressure: 125/61 Pulse: 63 Respirations: 16 Pulse Ox (%): 100 - Physical Exam General: Alert, In no apparent distress, Oriented x3 HEENT: Atraumatic, PERRLA, EOMI Neck: Supple, JVD not distended Respiratory: Clear to auscultation bilaterally, Normal air movement Cardiovascular: Regular rate/rhythm, Normal S1 S2 Gastrointestinal: Hypoactive, No rebound, No guarding, Tenderness Musculoskeletal: No tenderness Integumentary: No rashes Neurological: Normal speech, Normal tone, Normal affect Lymphatics: No axilla or inguinal lymphadenopathy - Studies Medications List Reviewed: Yes Assessment & Plan - Problems (Diagnosis) (1) Diverticulitis of colon with perforation Current Visit: Yes Status: Acute (2) Small bowel obstruction Current Visit: Yes Status: Acute (3) Depression Current Visit: Yes Status: Chronic Qualifiers: Depression Type: unspecified Qualified Code(s): F32.9 - Major depressive disorder, single episode, unspecified (4) Hypertension Current Visit: Yes Status: Chronic Qualifiers: Hypertension type: essential hypertension Qualified Code(s): I10 - Essential (primary) hypertension (5) Hypothyroidism Current Visit: Yes Status: Chronic Qualifiers: Hypothyroidism type: unspecified Qualified Code(s): E03.9 - Hypothyroidism, unspecified - Plan 1. Continue with IV hydration 2. Continue with IV antibiotics 3. Continue with pain control 4. NPO 5. Appreciate general surgery consultation 6. Serial H&H, and we will monitor CBC, BMP, LFTs and lipase along with electrolytes. 7. Repeat imaging studies 8. GI and DVT prophylaxis Discharge Plan: Home Plan to discharge in: Greater than 2 days - Advance Directives Does patient have a Living Will: No Does patient have a Durable POA for Healthcare: No - Code Status/Comfort Care Code Status Assessed: Yes Code Status: Full Code Critical Care: No Time Spent Managing PTS Care (In Minutes): 45
[2020-06-08] MEDS: HYDROMORPHONE HCL 1 MG/ML INJ IV PRN (20:16)
[2020-06-08] MEDS: ONDANSETRON 4 MG/2 ML VIAL IV PRN (20:22)
[2020-06-09] MEDS: PIPER/TAZO/NS 3.375gm 3.375 GM/100 ML BAG IVPB SCH ×3 (00:57→19:51)
[2020-06-09] MEDS: METRONIDAZOLE 500mg IVPB 500 MG/100 ML BAG IV SCH ×3 (05:20→17:51)
[2020-06-09] MEDS: NA CHLORIDE 0.9% 1,000 ML IV SCH ×2 (06:36→19:56)
[2020-06-09] MEDS: ENOXAPARIN 40 MG/0.4 ML SQ SCH (10:02)
[2020-06-09] MEDS: ONDANSETRON 4 MG/2 ML VIAL IV PRN (12:42)
[2020-06-09] MEDS: HYDROMORPHONE HCL 1 MG/ML INJ IV PRN (12:42)
[2020-06-09] MEDS: METOCLOPRAMIDE 10 MG/2mL INJ IV PRN (19:56)
[2020-06-10] MEDS: METRONIDAZOLE 500mg IVPB 500 MG/100 ML BAG IV SCH ×4 (01:08→17:04)
[2020-06-10] MEDS: PIPER/TAZO/NS 3.375gm 3.375 GM/100 ML BAG IVPB SCH ×3 (01:09→17:00)
[2020-06-10] MEDS: NA CHLORIDE 0.9% 1,000 ML IV SCH ×3 (03:00→22:54)
[2020-06-10] MEDS: METOCLOPRAMIDE 10 MG/2mL INJ IV PRN (06:25)
[2020-06-10 06:43] LABS: Absolute Lymphocytes (CBC) 1.5 K/uL (0.7-4.9); Basophils % 0.3 % (0-1.3); Hematocrit 31.9 % (36.0-45.0); Lymphocytes % 23.7 % (15.3-44.8); MPV 7.7 fL (7.6-11.3); RBC Red Blood Cell Count 3.89 M/uL (3.86-4.86)
[2020-06-10 06:47] LABS: BUN Blood Urea Nitrogen 4 mg/dL (7-18); Bicarbonate 27 mmol/L (21-32); Glucose Level 88 mg/dL (74-106); Magnesium 1.8 mg/dL (1.8-2.4); Phosphorus 1.7 mg/dL (2.5-4.9); Potassium 3.3 mmol/L (3.5-5.1); Sodium Level 145 mmol/L (136-145)
[2020-06-10] MEDS: ENOXAPARIN 40 MG/0.4 ML SQ SCH (08:40)
--- NOTE | 2020-06-10 09:59 | RAD REPORT ---
EXAM DESCRIPTION: CT - Abdomen Pelvis W Contrast - 06/10/2020 9:24 am CLINICAL HISTORY: Abdominal pain COMPARISON: June 07, 2020 TECHNIQUE: Computed axial tomography of the abdomen pelvis was obtained. 100 cc Isovue-300 was admin istered intravenously. Oral contrast was given All CT scans are performed using dose optimization technique as appropriate and may include automated exposure control or mA/KV adjustment according to patient size. FINDINGS: Fatty liver. Spleen, pancreas, adrenal and left kidney appear unremarkable. Small right renal cyst. Moderate thickening involves the wall of several loops of distal ileum. Ill-defined fluid is present within the mesenteric. Extraluminal air bubbles seen on the prior exam have resolved. No pneumoperito neum. No abscess. Small amount of free fluid within the abdomen pelvis. Mild dilatation of small bowel probably an ileus IMPRESSION: Moderate thickening of the wall of several loops of distal ileum probably indicating inf lammation or infection. Pneumoperitoneum is not noted
[2020-06-10] MEDS ORDERED: POTASSIUM CL SA 10 MEQ TAB PO ONE ×2 (10:00→17:01)
[2020-06-11] MEDS: ONDANSETRON 4 MG/2 ML VIAL IV PRN (00:04)
[2020-06-11] MEDS: METRONIDAZOLE 500mg IVPB 500 MG/100 ML BAG IV SCH ×3 (00:04→12:00)
[2020-06-11] MEDS: PIPER/TAZO/NS 3.375gm 3.375 GM/100 ML BAG IVPB SCH ×3 (00:55→18:35)
[2020-06-11 06:12] LABS: BUN Blood Urea Nitrogen 3 mg/dL (7-18); Bicarbonate 23 mmol/L (21-32); Glucose Level 81 mg/dL (74-106); Potassium 3.5 mmol/L (3.5-5.1); Sodium Level 146 mmol/L (136-145)
--- NOTE | 2020-06-11 06:51 | P.PN ---
Date of Service: 06/09/20 Subjective Patient abdominal pain has improved. Will get a CT scan. Patient has had a bowel movement so will give some mineral oil to assist. Review of Systems 10-point ROS is otherwise unremarkable Physical Examination - Vital Signs Reviewed - Physical Exam General: Alert, In no apparent distress, Oriented x3 Respiratory: Clear to auscultation bilaterally, Normal air movement Cardiovascular: Regular rate/rhythm, Normal S1 S2 Gastrointestinal: Hypoactive, No rebound, No guarding, Tenderness Neurological: Normal speech, Normal tone, Normal affect Assessment & Plan - Problems (Diagnosis) (1) Diverticulitis of colon with perforation Current Visit: Yes Status: Acute (2) Small bowel obstruction Current Visit: Yes Status: Acute (3) Depression Current Visit: Yes Status: Chronic Qualifiers: Depression Type: unspecified Qualified Code(s): F32.9 - Major depressive disorder, single episode, unspecified (4) Hypertension Current Visit: Yes Status: Chronic Qualifiers: Hypertension type: essential hypertension Qualified Code(s): I10 - Essential (primary) hypertension (5) Hypothyroidism Current Visit: Yes Status: Chronic Qualifiers: Hypothyroidism type: unspecified Qualified Code(s): E03.9 - Hypothyroidism, unspecified - Plan Continue with plan of care as mentioned below 1. Continue with IV hydration 2. Continue with IV antibiotics 3. Continue with pain control 4. Started on clear liquid diet 5. Appreciate general surgery consultation ; will readdress on Thursday; repeat CT scan to see if patient needs any surgical intervention 6. Serial H&H, and we will monitor CBC, BMP, LFTs and lipase along with electrolytes. 7. Repeat imaging studies 8. GI and DVT prophylaxis Discharge Plan: Home Plan to discharge in: Greater than 2 days - Advance Directives Does patient have a Living Will: No Does patient have a Durable POA for Healthcare: No - Code Status/Comfort Care Code Status Assessed: Yes Code Status: Full Code Critical Care: No Time Spent Managing PTS Care (In Minutes): 45
--- NOTE | 2020-06-11 06:52 | P.PN ---
Date of Service: 06/10/20 Subjective Patient continues to improve with no new complaints. CT imaging study reveals improvement of diverticulitis Review of Systems 10-point ROS is otherwise unremarkable Physical Examination - Vital Signs Reviewed - Physical Exam General: Alert, In no apparent distress, Oriented x3 Respiratory: Clear to auscultation bilaterally, Normal air movement Cardiovascular: Regular rate/rhythm, Normal S1 S2 Gastrointestinal: Hypoactive, No rebound, No guarding, Tenderness Neurological: Normal speech, Normal tone, Normal affect Assessment & Plan - Problems (Diagnosis) (1) Diverticulitis of colon with perforation Current Visit: Yes Status: Acute (2) Small bowel obstruction Current Visit: Yes Status: Acute (3) Depression Current Visit: Yes Status: Chronic Qualifiers: Depression Type: unspecified Qualified Code(s): F32.9 - Major depressive disorder, single episode, unspecified (4) Hypertension Current Visit: Yes Status: Chronic Qualifiers: Hypertension type: essential hypertension Qualified Code(s): I10 - Essential (primary) hypertension (5) Hypothyroidism Current Visit: Yes Status: Chronic Qualifiers: Hypothyroidism type: unspecified Qualified Code(s): E03.9 - Hypothyroidism, unspecified - Plan Continue with plan of care as mentioned below 1. Continue with IV hydration 2. Continue with IV antibiotics 3. Continue with pain control 4. Started on clear liquid diet; may advance diet to a full liquid if surgery agreeable 5. Appreciate general surgery consultation ; will readdress on Thursday; repeat CT scan to see if patient needs any surgical intervention 6. Serial H&H, and we will monitor CBC, BMP, LFTs and lipase along with electrolytes. 7. Repeat imaging studies 8. GI and DVT prophylaxis Discharge Plan: Home Plan to discharge in: Greater than 2 days - Advance Directives Does patient have a Living Will: No Does patient have a Durable POA for Healthcare: No - Code Status/Comfort Care Code Status Assessed: Yes Code Status: Full Code Critical Care: No Time Spent Managing PTS Care (In Minutes): 45
[2020-06-11] MEDS: ENOXAPARIN 40 MG/0.4 ML SQ SCH (09:00)
[2020-06-11] MEDS ORDERED: POTASSIUM CL SA 10 MEQ TAB PO ONE (09:00)
[2020-06-11] MEDS: NA CHLORIDE 0.9% 1,000 ML IV SCH (09:41)
[2020-06-11 09:50] LABS: Absolute Lymphocytes (CBC) 1.2 K/uL (0.7-4.9); Basophils % 0.6 % (0-1.3); Hematocrit 33.8 % (36.0-45.0); Lymphocytes % 19.3 % (15.3-44.8); MPV 7.7 fL (7.6-11.3); RBC Red Blood Cell Count 4.13 M/uL (3.86-4.86)
--- NOTE | 2020-06-11 15:22 | P.PN ---
Subjective Date of Service: 06/11/20 Chief Complaint: LBO Subjective: Improving Physical Examination - Vital Signs Temperature: 97.8 F Blood Pressure: 145/70 Pulse: 69 Respirations: 17 Pulse Ox (%): 99 - Studies Medications List Reviewed: Yes Assessment & Plan Discharge Plan: Home Plan to discharge in: 24 Hours Physician Review Additional Text: Physical exam: Patient alert, cooperative. No complaints noted at this time. Tolerating full liquid diet. Heart: Regular rate and rhythm Lungs: Clear to auscultation Abdomen: Soft no significant pain noted. Pain improved. Extremities: Good range of motion to the upper lower extremities Impression: Acute diverticulitis with microperforation Anemia of chronic disease Obesity, BMI-54 Plan: Patient improved. Patient tolerating full liquid diet. Will advance to soft diet. If significantly improved will consider discharge as early as tomorrow. Will discuss with surgery as well. Time Spent Managing Pts Care (In Minutes): 55
[2020-06-11] MEDS: NACHLORIDE 0.45% 1,000 ML IV SCH (18:35)
[2020-06-12] MEDS: PIPER/TAZO/NS 3.375gm 3.375 GM/100 ML BAG IVPB SCH ×2 (00:39→09:00)
[2020-06-12] MEDS: ACETAMINOPHEN 500 MG TAB PO PRN (01:11)
[2020-06-12] MEDS: NACHLORIDE 0.45% 1,000 ML IV SCH (05:20)
[2020-06-12 05:46] LABS: BUN Blood Urea Nitrogen 2 mg/dL (7-18); Bicarbonate 26 mmol/L (21-32); Glucose Level 88 mg/dL (74-106); Magnesium 1.7 mg/dL (1.8-2.4); Phosphorus 2.7 mg/dL (2.5-4.9); Potassium 3.2 mmol/L (3.5-5.1); Sodium Level 145 mmol/L (136-145)
[2020-06-12] MEDS ORDERED: MAGNESIUM SULFATE 1 gm IVPB 1 GM/100 ML BAG IV ONE (06:03)
--- NOTE | 2020-06-12 08:34 | P.DS ---
Admission Date: 06/07/20 Discharge Date: 06/12/20 Primary Care Provider: Dr. Scruggs Disposition: ROUTINE DISCHARGE Discharge Condition: GOOD Reason for Admission: LBO Consultations: Surgery-Dr. Bella Procedures: COVID: Negative CT scan: COMPARISON: No relevant prior studies available. FINDINGS: Lung bases: Unremarkable. No mass. No consolidation. ABDOMEN: Liver: Unremarkable. No mass. Gallbladder and bile ducts: Unremarkable. No calcified stones. No ductal dilation. Pancreas: Unremarkable. No mass. No ductal dilation. Spleen: Unremarkable. No splenomegaly. Adrenals: Unremarkable. No mass. Kidneys and ureters: Scattered simple appearing cysts of the kidney me asuring up to 1.7 cm and the right kidney. ACR White Paper guidelines (Herts, et al. JACR 2018; 15(2):264-273) suggest no follow-up is necessary. No hydronephrosis. Stomach and bowel: There are some distended loops of small bowel with air- fluid levels measuring up to 4 cm in diameter. Scattered colonic diverticula. No mucosal thickening. PELVIS: Appendix: No findings to suggest acute appendicitis. Bladder: Unremarkable. No mass. Reproductive: Unremarkable as visualized. ABDOMEN and PELVIS: Intraperitoneal space: There is fluid and stranding in the right lower quadrant adjacent to the proximal colon and terminal ileum. There are scattered locules of air, some of which may represent intraperitoneal free air. There are minimal colonic diverticula. There is bowel wall thickening involving an adjacent loop of distended small bowel which may be reactive. Bones/joints: No acute fracture. No dislocation. Soft tissues: Unremarkable. Vasculature: Unremarkable. No abdominal aortic aneurysm. Lymph nodes: Unremarkable. No enlarged lymph nodes. IMPRESSION: 1. There are some distended loops of small bowel with air-fluid levels measuring up to 4 cm in diameter. Findings are suggestive of ileus or obstruction. 2. There is fluid and stranding in the right lower quadrant adjacent to the proximal colon and terminal ileum. There are scattered locules of air, some of which may represent intraperitoneal free air. There are minimal colonic diverticula. There is bowel wall thickening involving an adjacent loop of distended small bowel which may be reactive. Findings are suggestive of perforated diverticulitis or colitis. Follow up CT scan: FINDINGS: Fatty liver. Spleen, pancreas, adrenal and left kidney appear unremarkable. Small right renal cyst. Moderate thickening involves the wall of several loops of distal ileum. Ill- defined fluid is present within the mesenteric. Extraluminal air bubbles seen on the prior exam have resolved. No pneumoperitoneum. No abscess. Small amount of free fluid within the abdomen pelvis. Mild dilatation of small bowel probably an ileus IMPRESSION: Moderate thickening of the wall of several loops of distal ileum probably indicating inflammation or infection. Pneumoperitoneum is not noted Medical Problem List: Acute diverticulitis of distal ileum/proximal colon with microperforation Anemia of chronic disease Fatty liver Obesity, BMI-54 Brief History of Present Illness: 64 yo female presented with 2 weeks of worsening 10 out of 10 abdominal pain, bloating. She reports night sweats, chills, nausea, vomiting, and constipation. Pain worse with eating, relieved by hot showers. She said she has had similar flares of abdominal pain in the past with certain food but never this bad. CT scan revealed inflammation to the distal ileum and proximal colon suspicious for diverticulitis with microperforation. Patient was admitted for further evaluation and treatment. Surgery was consulted. Hospital Course: Patient presented with abdominal pain secondary to acute diverticulitis of the distal ileum/proximal colon with microperforation. Patient required hospitalization with IV antibiotic therapy and treatment. Her condition improved. No surgical intervention was required. Patient was seen and evaluated by surgery. Her diet was advanced. At discharge she is without significant abdominal pain. No significant nausea or vomiting. She is able to tolerate a soft diet. At discharge patient will continue with Cipro 500 mg 1 pill twice daily, Flagyl 500 mg 3 times a day for 10 days. Patient will continue with lactobacillus 3 times a day. Recommend follow-up with surgery in 1 to 2 weeks to follow-up hospitalization. Patient will need to follow-up and establish care with GI as an outpatient. Patient will require colonoscopy in 4 to 6 weeks with GI. Education on diverticulitis provided. If symptoms worsen she is to follow-up with surgery or GI or return back to the hospital. CT scan did reveal fatty liver. Education on fatty liver provided. BMI 54.7. Lifestyle modification education provided. Patient with mild anemia likely of chronic disease. Recommend to recheck CBC in 2 to 4 weeks to monitor her progress. This can be further monitored and addressed by GI in the future. Vital Signs/Physical Exam: Temp Pulse Resp BP Pulse Ox 98.2 F 62 16 145/70 H 99 06/12/20 04:00 06/12/20 04:00 06/12/20 04:00 06/12/20 04:00 06/12/20 04:00 General: Alert, In no apparent distress, Oriented x3, Cooperative HEENT: Atraumatic, Mucous membr. moist/pink Neck: Supple Respiratory: Clear to auscultation bilaterally, Normal air movement Cardiovascular: Normal pulses, Regular rate/rhythm Gastrointestinal: Normal bowel sounds, Soft and benign, Non-distended, No ascites, No tenderness, No masses, No rebound, No guarding Musculoskeletal: No erythema, No tenderness, No warmth Integumentary: No tenderness/swelling, No erythema, No warmth, No cyanosis Neurological: Normal speech, Normal strength at 5/5 x4 extr, Normal tone, Normal affect Laboratory Data at Discharge: WBC 6.40 K/uL (4.3-10.9) 06/11/20 09:27 Hgb 10.7 g/dL (12.0-15.0) L 06/11/20 09:27 Hct 33.8 % (36.0-45.0) L 06/11/20 09:27 Plt Count 386 K/uL (152-406) 06/11/20 09:27 Sodium 145 mmol/L (136-145) 06/12/20 05:06 Potassium 3.2 mmol/L (3.5-5.1) L 06/12/20 05:06 BUN 2 mg/dL (7-18) L 06/12/20 05:06 Creatinine 0.54 mg/dL (0.55-1.3) L 06/12/20 05:06 Glucose 88 mg/dL (74-106) 06/12/20 05:06 Phosphorus 2.7 mg/dL (2.5-4.9) D 06/12/20 05:06 Magnesium 1.7 mg/dL (1.8-2.4) L 06/12/20 05:06 Total Bilirubin 0.3 mg/dL (0.2-1.0) 06/08/20 06:20 AST 28 U/L (15-37) 06/08/20 06:20 ALT 40 U/L (12-78) 06/08/20 06:20 Alkaline Phosphatase 101 U/L (45-117) 06/08/20 06:20 Triglycerides 80 mg/dL (<150) 06/08/20 06:20 Cholesterol 129 mg/dL (<200) 06/08/20 06:20 HDL Cholesterol 48 mg/dL (40-60) 06/08/20 06:20 Cholesterol/HDL Ratio 2.69 06/08/20 06:20 Lipase 172 U/L (73-393) 06/07/20 00:20 Lipase Cancelled 06/07/20 00:20 Home Medications: Ciprofloxacin HCl [Cipro 500 MG Tablet] 500 mg PO BID #20 tab 06/12/20 Lactobacillus Acidophilus [Acidophilus Lactobacilli] 1 each PO TID #90 capsule 06/12/20 metroNIDAZOLE [Flagyl] 500 mg PO Q8H #30 tablet 06/12/20 New Medications: Lactobacillus Acidophilus [Acidophilus Lactobacilli] 1 each PO TID #90 capsule Ciprofloxacin HCl [Cipro 500 MG Tablet] 500 mg PO BID #20 tab metroNIDAZOLE [Flagyl] 500 mg PO Q8H #30 tablet Physician Discharge Instructions: Patient presented with abdominal pain secondary to acute diverticulitis of the distal ileum/proximal colon with microperforation. Patient required hospitalization with IV antibiotic therapy and treatment. Her condition improved. No surgical intervention was required. Patient was seen and evaluated by surgery. Her diet was advanced. At discharge she is without significant abdominal pain. No significant nausea or vomiting. She is able to tolerate a soft diet. At discharge patient will continue with Cipro 500 mg 1 pill twice daily, Flagyl 500 mg 3 times a day for 10 days. Patient will continue with lactobacillus 3 times a day. Recommend follow-up with surgery in 1 to 2 weeks to follow-up hospitalization. Patient will need to follow-up and establish care with GI as an outpatient. Patient will require colonoscopy in 4 to 6 weeks with GI. Education on diverticulitis provided. If symptoms worsen she is to follow-up with surgery or GI or return back to the hospital. CT scan did reveal fatty liver. Education on fatty liver provided. BMI 54.7. Lifestyle modification education provided. Patient with mild anemia likely of chronic disease. Recommend to recheck CBC in 2 to 4 weeks to monitor her progress. This can be further monitored and addressed by GI in the future. Diet: AHA Activity: Ad jaylen Followup: OOTOOT [Primary Care Provider] - Time spent managing pt's care (in minutes): 55
[2020-06-12] MEDS ORDERED: POTASSIUM 25 MEQ EFFERV TAB PO ONE (09:00)
[2020-06-12] MEDS: ENOXAPARIN 40 MG/0.4 ML SQ SCH (09:00)
[2020-06-12 09:25] VITALS: BP 178/81; TEMP 97.4
[2020-06-12 10:08] VITALS: O2SAT 100
== END 2020-06-12 10:35 | disposition home or self-care (01) | DRG 392 ==
LOC: ER 23:49 → ERHOLD 06-07 04:11 → 2ND 06-07 16:53
PROVIDERS: ADMIT Hospitalist; ATTEND Family Medicine
DX: K57.20 Diverticulitis of large intestine with perforation and abscess without bleeding (principal); K56.699 Other intestinal obstruction unspecified as to partial versus complete obstruction; K56.49 Other impaction of intestine; Z68.43 Body mass index [BMI] 50.0-59.9, adult; R73.03 Prediabetes; Z88.8 Allergy status to other drugs, medicaments and biological substances; Z91.040 Latex allergy status; Z79.890 Hormone replacement therapy; Z79.84 Long term (current) use of oral hypoglycemic drugs; Z79.899 Other long term (current) drug therapy; Z20.822 Contact with and (suspected) exposure to COVID-19; E03.9 Hypothyroidism, unspecified; I10 Essential (primary) hypertension; K59.00 Constipation, unspecified; F32.9 Major depressive disorder, single episode, unspecified; D63.8 Anemia in other chronic diseases classified elsewhere; E66.9 Obesity, unspecified; K76.0 Fatty (change of) liver, not elsewhere classified
CPT/HCPCS: 36415; 71045; 74019; 74177; 80048; 80053; 80061; 80076; 81003; 81015; 82947; 83605; 83690; 83735; 83880; 84100; 84132; 84145; 84439; 84443; 84484; 85025; 93005; 94010; 94760; 96361; 96365; 96375; 99285; J1170; J1650; J2270; J2405; J2543; J2765; J3360; J3475; J7030; J7040; Q9967; U0003

== ENCOUNTER 2020-07-12 16:05 | Inpatient (IN) | payer BC ==
--- OUTSIDE RECORDS SUMMARY | 2020-07-12 16:08 | XMS REPORT | Continuity of Care Document ---
:1955 Author Organization [facility] t Address [address] [place] [address] Care Team Providers Name Role Phone Kael MEADOWS MD, A Primary Care Physician Kaci PARSONS, R. Attending Clinician Yadira MURPHY Attending Clinician Unavailable Payers Payer Name Policy Type Policy Effective Date Expiration Date [facility] ce Number BCBSBCBS CHOICE [id number] 2010 [place] PPO/FEDERAL 00:00:00 Religious EMPL [id number] 2010-Presen tPPO Problems Condition Condition Condition Status Onset Resolution Last Treating Co mments Source Name Details Category Date Date Treatment Clinician Date Essential Essential Disease Active Timmy ston hypertensi hypertensi 8-13 [facility] on on 00:00: st 00 Chest pain Chest pain Disease Active [place] 2-02 [facility] 00:[facility]: st 00 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 2-02 [facility] disease disease 00:00: st involving involving 00 ione 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 pectoris SOB SOB Disease Active [place] (shortness (shortness 2-02 Me thodi of breath) of breath) 00:00: st 00 Aortic Aortic Disease Active [place] valve valve 2-02 [facility] disorder disorder 00:00: st 00 Allergies, Adverse Reactions, Alerts Allergy Allergy Status Severity Reaction(s) Onset Inactive Treating Comm ents Source Name Type Date Date Clinician Latex, Propensi Active Itching [place] Natural ty to [facility] Rubber adverse st reaction s to drug Family History Family Member Diagnosis Comments Start Date Stop Date Source Natural father Cancer [facility] thodist Natural mother Heart disease [facility] Social History Social Habit Start Date Stop Date Quantity Comments Source History [facility] od[facility] Alcohol Std Drinks History [facility] Alcohol Binge Tobacco use and 2018-03-19 2018-03-19 Never used [facility] exposure 00:00:00 00:00:00 Alcohol intake 2018-03-19 2018-03-19 Current [facility] 00:00:00 00:00:00 non-drinker of alcohol (finding) History [facility] 2018-03-19 2018-03-19 1 [place] [facility] Alcohol Frequency 00:00:00 00:00:00 [birth year] [facility] 00:00:00 00:00:00 Smoking Status Start Date Stop Date Source Former smoker 2018-03-19 00:00:00 2018-03-19 00:00:00 [facility] Medications Ordered Filled Start Stop Current Ordering Indication Dosage Frequency Signature Comments Components Source Medication Medication Date Date Medication? Clinician (SIG) Name Name metoprolol Yes Aortic TAKE 1 Timmy ston tartrate 4-26 valve TABLET(50 Metho di (LOPRESSOR) 00:00: disorder MG) BY st 50 mg 00 MOUTH tablet TWICE DAILY lisinopriL- Yes Aortic 1{tbl} QD TAKE 1 [place] hydrochloro 4-26 valve TABLET BY Ma [facility] thiazide 00:00: disorder MOUTH st (PRINZIDE) 00 DAILY 10-12.5 mg per tablet lisinopriL- 2020- No Aortic 1{tbl} QD Take 1 [facility] hydrochloro 1-25 04-[facility] (PRINZIDE) 00 :00 daily. 10-12.5 mg per tablet metoprolol 2020- No Aortic 50mg Q.5D Take 1 [place] tartrate 1-25 04-26 valve tablet (50 Met hodi (LOPRESSOR) 00:00: 00:00 disorder mg total) st 50 mg 00 :00 by mouth 2 tablet (two) times a day. lisinopril- Aortic 1{tbl} QD TAKE 1 [place] hydrochloro 03-17 valve TABLET BY Ryan zamarripadenis thiazide 00:00: 00:[address] (PRINZIDE) 00 :00 DAILY 10-12.5 mg per tablet metoprolol Aortic TAKE 1 [place] tartrate 03-17 valve TABLET(50 Meth denis (LOPRESSOR) 00:00: 00:00 [...] mvit,calc,m Yes Take by Timmy roberto in-folic 8-13 mouth. [facility] [id number] 11:39: st 200 mcg 47 tablet coenzyme Yes [place] Q10 (CO 09-23 [facility] Q-10) 100 00:00: st mg capsule 00 cholecalcif Yes Enrrique severino alex, 8 [facility] vitamin D3, 00:00: st (VITAMIN 00 D3) 5,000 unit tablet docusate Yes [place] sodium 8 [facility] (COLACE) 00:00: st 100 MG 00 capsule ferrous Yes [facility] sulfate 325 7-17 [facility] (65 FE) MG 00:00: st tablet 00 sertraline Yes [place] (ZOLOFT) 7-15 [facility] 100 MG 00:00: st tablet 00 Vital Signs Vital Name Observation Time Observation Value Comments Source Systolic blood 2019-09-27 11:07:00 123 mm[Hg] [place] [facility] pressure Diastolic blood 2019-09-27 11:07:00 80 mm[Hg] [place] [facility] pressure Heart rate 2019-09-27 11:07:00 70 /min Mar[place] Elliott Body height 2019-09-27 11:07:00 154.9 cm Mar[facility] Elliott Body weight 2019-09-27 11:07:00 129.275 kg Mar[place] Elliott BMI 2019-09-27 11:07:00 53.85 kg/m2 [facility] Procedures This patient has no known procedures. Plan of Care Planned Activity Planned Date Details Comments Source Future Scheduled 2020-09-16 INFLUENZA VACCINE [place] [facility] Test 00:00:00 [code = INFLUENZA VACCINE] Future Scheduled 2006 BREAST CANCER [facility] Test 00:00:00 SCREENING [code = BREAST CANCER SCREENING] Future Scheduled 2006 COLONOSCOPY SCREENING [place] [facility] Test 00:00:00 [code = COLONOSCOPY SCREENING] Future Scheduled 2006 SHINGLES VACCINES [place] [facility] Test 00:00:00 (#1) [code = SHINGLES VACCINES (#1)] Future Scheduled 1977 Screening for [facility] thodist Test 00:00:00 malignant neoplasm of cervix (procedure) [code = 888875471] Future Scheduled 1974 Hepatitis C screening [place] [facility] Test 00:00:00 (procedure) [code = 284984376] Future Scheduled 1968 COVID-19 VACCINE (1) Timmy ston [facility] Test 00:00:00 [code = COVID-19 VACCINE (1)] Encounters Start End Encounter Admission Attending Care Care Encounter Source Date/Time Date/Time Type Type Clinicians Facility Department ID 2019-09-27 2019-09-27 [id number] [place] 00:00:00 00:00:[facility] [address] Results This patient has no known results.
[2020-07-12] MEDS ORDERED: MORPHINE 4 MG/ML SYR ONE (17:15)
[2020-07-12] MEDS ORDERED: ONDANSETRON 4 MG/2 ML VIAL ONE (17:15)
[2020-07-12] MEDS ORDERED: NA CHLORIDE 0.9% 1,000 ML ONE ×2 (17:16→19:09)
[2020-07-12 17:22] LABS: Basophils % 0.9 % (0-1.3); Hematocrit 41.8 % (36.0-45.0); Lymphocytes % 21.4 % (15.3-44.8); MPV 8.1 fL (7.6-11.3); RBC Red Blood Cell Count 5.07 M/uL (3.86-4.86)
[2020-07-12 17:43] LABS: Albumin 3.5 g/dL (3.4-5.0); Bilirubin Direct 0.2 mg/dL (0-0.2); Bilirubin Total 0.6 mg/dL (0.2-1.0); Potassium 3.6 mmol/L (3.5-5.1); Protein, Total 7.7 g/dL (6.4-8.2)
--- NOTE | 2020-07-12 18:22 | RAD REPORT ---
EXAM DESCRIPTION: CT - Abdomen Pelvis W Contrast - 07/12/2020 6:04 pm CLINICAL HISTORY: ABD PAIN COMPARISON: Abdomen Pelvis W Contrast dated 06/10/2020; Abdomen Pelvis W Contrast dated 06/07/2020 TECHNIQUE: Biphasic, helical CT imaging of the abdomen and pelvis was performed following 100 ml non -ionic IV contrast. No oral contrast. All CT scans are performed using dose optimization technique as appropriate and may include automated exposure control or mA/KV adjustment according to patient size. FINDINGS: No suspicious findings in the lung bases. The liver, spleen, and pancreas show no suspicious findings. Liver does show diffuse fatty infiltrati on pattern. No biliary tree dilatation. Patient appears to have multiple gallstones. No gross evidenc e for acute cholecystitis. Symmetric renal function is seen with no hydronephrosis or suspicious renal mass. No pyelonephritis o r acute parenchymal process. Small renal cysts present on the right. Urinary bladder is fully contrac jennifer limiting assessment. Small uterus and atrophic ovaries show no suspicious findings. No adrenal ab normalities. Small hiatal hernia is present. No gastric wall thickening or mass. Stomach is decompressed. Fluid-fi lled nondilated duodenum is present. Jejunum progressively dilates in the dilatation extends into the distal ileum. Small bowel loops dilate to as much as 4.5 cm. Intraperitoneal findings focus primaril y around the ileocecal valve. There appears to be a pronounced postinfectious/postinflammatory strict ure. Jaquez of the terminal ileum show thickening. There is an additional stricture involving the mid ileum. This is the abrupt transition of the dilated small bowel loops. There are multiple small lymph nodes in this region. No calcifications are present. Possibility of carcinoid or other peritoneal ne oplastic process is possible. A normal appendix is not identified. Stomach is decompressed. Trace amount of free fluid is present. There is no free air or pneumatosis. No suspicious bony findings. IMPRESSION: Mechanical small bowel obstruction with small bowel dilated up to 4.5 cm. There is an ab rupt transition of the mid ileum which is in close proximity to the ileocecal valve. There is no free air, abscess or other surgically emergent finding. At the ileocecal valve there is additional stricture. The terminal ileum is not dilated but does show wall thickening. In the right lower quadrant ileocecal valve region there are numerous small lymph nodes present and i ll-defined soft tissue attenuation. Scarring and stricture related to inflammatory bowel disease is a probable etiology. Right lower quad rant carcinoid tumor is a lesser consideration. The appendix is not clearly defined but in acute appe ndicitis etiology is not suspected.
--- NOTE | 2020-07-12 18:47 | ER ---
Nurse's Notes [facility] Name: Kindra Novoa Age: 65 yrs Sex: Female : 1955 Arrival Date: 07/12/2020 Time: 16:08 Bed 7 Private MD: Diagnosis: Small Bowel Obstruction Presentation: 07/12 16:13 Chief complaint: Patient states: Was admitted on June 07 for abdominal pain, a week ca1 after discharge pain started again off and on. Today, has just been unbearable and am not ever eating much, but mashed potatoes, crackers and broth. Reports nausea. Coronavirus screen: Client denies travel out of the [place] in the last 14 days. nausea, Client presents with at least one sign or symptom that may indicate coronavirus-19. Standard/surgical mask placed on the client. Provider contacted for isolation considerations. Ebola Screen: Patient negative for fever greater than or equal to 101.5 degrees Fahrenheit, and additional compatible Ebola Virus Disease symptoms Patient denies exposure to infectious person. Patient denies travel to an Ebola-affected area in the 21 days before illness onset. No symptoms or risks identified at this time. Initial Sepsis Screen: Does the patient meet any 2 criteria? No. Patient's initial sepsis screen is negative. Does the patient have a suspected source of infection? No. Patient's initial sepsis screen is negative. Risk Assessment: Do you want to hurt yourself or someone else? Patient reports no desire to harm self or others. Onset of symptoms was July 12, 2020. 16:13 Method Of Arrival: Ambulatory ca1 16:13 Acuity: KAROL 3 ca1 Historical: - Allergies: 16:18 Latex, Natural Rubber; ca1 16:18 BUSPIRONE; ca1 20:01 Ciprofloxacin; rr5 20:01 Flagyl; rr5 - Home Meds: 16:18 bupropion HCl 75 mg Oral tab 1 tab 3 times per day [Active]; ferrous sulfate 325 mg (65 ca1 mg iron) Oral tab daily [Active]; levothyroxine 25 mcg tab 1 tab once daily [Active]; metformin 500 mg Oral tr24 1 tab once daily [Active]; metoprolol tartrate 50 mg Oral tab 1 tab 2 times per day [Active]; lisinopril-hydrochlorothiazide 10-12.5 mg Oral tab 1 tab once daily [Active]; sertraline 50 mg Oral tab 1 tab once daily [Active]; naltrexone 50 mg Oral tab 1 tab once daily [Active]; sertraline 100 mg Oral tab 1 tab nightly [Active]; - PMHx: 16:18 Colitis; Depression; Hypertension; Hypothyroidism; ca1 - PSHx: 16:18 None; ca1 - Immunization history:: Client reports having NOT received the Covid vaccine. Flu vaccine is not up to date. - Social history:: Smoking status: Patient denies any tobacco usage or history of. Screenin:55 Abuse screen: Denies threats or abuse. Nutritional screening: No deficits noted. em Tuberculosis screening: No symptoms or risk factors identified. Fall Risk None identified. Assessment: 17:00 General: Appears in no apparent distress. uncomfortable, Behavior is calm, cooperative, em appropriate for age. Pain: Complains of pain in abdomen Pain currently is 3 out of 10 on a pain scale. Neuro: Level of Consciousness is awake, alert, obeys commands, Oriented to person, place, time, situation. Cardiovascular: Capillary refill < 3 seconds Patient's skin is warm and dry. Respiratory: Airway is patent Respiratory effort is even, unlabored, Respiratory pattern is regular, symmetrical. GI: Bowel sounds present X 4 quads. Abd is soft and non tender X 4 quads. Derm: Skin is intact, is healthy with good turgor, Skin is pink, warm \T\ dry. Musculoskeletal: Capillary refill < 3 seconds, Range of motion: intact in all extremities. 17:15 Reassessment: Patient appears in no apparent distress at this time. Patient and/or em family updated on plan of care and expected duration. Pain level reassessed. Patient is alert, oriented x 3, equal unlabored respirations, skin warm/dry/pink. Patient states feeling better. Patient states symptoms have improved. 19:20 Reassessment: hospitalist at bedside examining the patient, patient complained of rr5 itchiness and redness at the IV site. antibiotics ( Flagyl and ciprofloxacin) and ordered for anti allergy medicine. 19:50 General: Appears in no apparent distress. uncomfortable, Behavior is calm, cooperative, rr5 appropriate for age. Neuro: Level of Consciousness is awake, alert, Oriented to person, place, time. Cardiovascular: Capillary refill < 3 seconds Patient's skin is warm and dry. Respiratory: Airway is patent Respiratory effort is even, unlabored, Respiratory pattern is regular, symmetrical. GI: Abdomen is round obese, Reports lower abdominal pain, upper abdominal pain, nausea, vomiting. : No signs and/or symptoms were reported regarding the genitourinary system. EENT: No signs and/or symptoms were reported regarding the EENT system. Derm: Skin temperature is warm. Musculoskeletal: Capillary refill < 3 seconds. 20:59 Reassessment: Patient appears in no apparent distress at this time. Patient is alert, rr5 oriented x 3, equal unlabored respirations, skin warm/dry/pink. awaiting for room assignment Patient states symptoms have improved. Vital Signs: 16:13 BP 157 / 97; Pulse 114; Resp 18 S; Temp 97.1(TE); Pulse Ox 99% on R/A; Weight 114.31 kg ca1 (R); Height 5 ft. 1 in. (154.94 cm) (R); Pain 5/10; 17:11 BP 139 / 93; Pulse 91; Resp 18; Pulse Ox 98% on R/A; Pain 0/10; em 19:00 BP 131 / 62; Pulse 89; Resp 17; Pulse Ox 97% ; rr5 20:00 BP 135 / 89; Pulse 85; Resp 15; Pulse Ox 100% ; rr5 20:59 BP 149 / 64; Pulse 90; Resp 17; Pulse Ox 98% ; rr5 16:13 Body Mass Index 47.61 (114.31 kg, 154.94 cm) ca1 ED Course: 16:08 Patient arrived in ED. mr 16:17 Triage completed. ca1 16:18 Arm band placed on right wrist. ca1 16:19 Selena Lerma FNP-C is PHCP. kb 16:19 Chad Xiong MD is Attending Physician. kb 16:50 Kwame Blackwood, CHRISTIANO is Primary Nurse. em 16:55 Patient has correct armband on for positive identification. Bed in low position. Call em light in reach. Adult w/ patient. Pulse ox on. NIBP on. 17:00 Initial lab(s) drawn, by me, sent to lab. Inserted saline lock: 20 gauge in right em forearm, using aseptic technique. Blood collected. 18:04 CT Abd/Pelvis - IV Contrast Only In Process Unspecified. EDMS 18:46 Juan Ramon Wahl DO is Hospitalizing Provider. kb 19:30 NGT: inserted 16 Fr. via left nare. verified placement of air over stomach, verified rr5 return of gastric contents, to intermittent suction. Returned gastric contents. Returned bile. Patient tolerated well. 21:50 No provider procedures requiring assistance completed. Patient admitted, IV remains in rr5 place. intact, No redness/swelling at site. Administered Medications: Discontinued: Flagyl (metroNIDAZOLE) 500 mg 100 ml IVPB at 200 ml/hr once over 30 mins Discontinued: Ciprofloxacin 400 mg 200 ml IVPB once over 60 mins 17:00 Drug: NS 0.9% 1000 ml Route: IV; Rate: 1000 ml; Site: right forearm; em 18:00 Follow up: Response: No adverse reaction; IV Status: Completed infusion; IV Intake: hb 1000ml 17:00 Drug: Zofran (Ondansetron) 4 mg Route: IVP; Site: right forearm; em 17:12 Follow up: Response: No adverse reaction; Marked relief of symptoms em 17:02 Drug: morphine 4 mg Route: IVP; Site: right forearm; em 17:12 Follow up: Response: No adverse reaction; Marked relief of symptoms; Pain is decreased em 18:57 Drug: Ciprofloxacin 400 mg Volume: 200 ml; Route: IVPB; Infused Over: 60 mins; Site: hb right forearm; 19:15 Follow up: Response: Adverse reaction, Physician notified; IV Status: Order to rr5 discontinue infusion 18:58 Drug: NS 0.9% 1000 ml Route: IV; Rate: 125 ml/hr; Site: right forearm; hb 21:52 Follow up: Response: No adverse reaction; IV Status: Infusion continued upon admission; rr5 IV Intake: 375ml 18:58 Drug: Flagyl (metroNIDAZOLE) 500 mg Volume: 100 ml; Route: IVPB; Rate: 200 ml/hr; hb Infused Over: 30 mins; Site: right forearm; 19:15 Follow up: Response: Adverse reaction, Physician notified rr5 19:25 Drug: SOLU-Medrol (methylPrednisoLONE) 60 mg Route: IVP; Site: right forearm; rr5 20:20 Follow up: Response: No adverse reaction rr5 19:27 Drug: Benadryl (diphenhydrAMINE) 12.5 mg Route: IVP; Site: right forearm; rr5 20:25 Follow up: Response: No adverse reaction rr5 19:31 Drug: morphine 2 mg {Note: Administered by CHRISTIANO Brown.} Route: IVP; Site: right wrist; jb4 20:30 Follow up: Response: No adverse reaction; RASS: Alert and Calm (0) rr5 19:34 Dru.375 grams of (Zosyn (piperacillin-tazobactam) 3.375 grams, NS 0.9% 100 ml) rr5 Route: IVPB; Infused Over: 60 mins; Site: right forearm; 20:22 Follow up: Response: No adverse reaction; IV Status: Completed infusion; IV Intake: rr5 100ml Intake: 18:00 IV: 1000ml; Total: 1000ml. hb 20:22 IV: 100ml; Total: 1100ml. rr5 21:52 IV: 375ml; Total: 1475ml. rr5 Outcome: 18:46 Decision to Hospitalize by Provider. kb 21:50 Admitted to Med/surg accompanied by nurse, via wheelchair, room 207, with chart, Report rr5 called to carnm 21:50 Condition: stable 21:50 Instructed on the need for admit. 21:56 Patient left the ED. rr5 Signatures: Dispatcher [employer] EDMS Selena Lerma, AUDIOLOGY DOCTORKimberleeC AUDIOLOGY DOCTOR-Ninfa Thapa Kwame Blackwood, Tana Nicole RN, RN RN hb Bryson, James, RN RN jb4 Kevin Rascon RN RN rr5 Martha Lo RN RN ca1
--- NOTE | 2020-07-12 18:47 | EDPHYS ---
Physician Documentation [facility] Name: Kindra Novoa Age: 65 yrs Sex: Female : 1955 Arrival Date: 07/12/2020 Time: 16:08 Bed 7 Private MD: ED Physician Chad Xiong HPI: 07/12 21:26 This 65 yrs old Female presents to ER via Ambulatory with complaints of kb Abdominal Pain. 21:26 The patient presents with abdominal pain in the upper abdomen. Onset: The kb symptoms/episode began/occurred 2.5 week(s) ago. The symptoms do not radiate. Associated signs and symptoms: Pertinent positives: nausea and vomiting. The symptoms are described as constant. Modifying factors: The symptoms are alleviated by nothing, the symptoms are aggravated by nothing. Severity of pain: At its worst the pain was moderate in the emergency department the pain is unchanged. The patient has not experienced similar symptoms in the past. The patient has not recently seen a physician. Pt reports abd pain for 2.5 weeks with nausea and intermittent vomiting. . Historical: - Allergies: 16:18 Latex, Natural Rubber; ca1 16:18 BUSPIRONE; ca1 20:01 Ciprofloxacin; rr5 20:01 Flagyl; rr5 - Home Meds: 16:18 bupropion HCl 75 mg Oral tab 1 tab 3 times per day [Active]; ferrous sulfate 325 mg (65 ca1 mg iron) Oral tab daily [Active]; levothyroxine 25 mcg tab 1 tab once daily [Active]; metformin 500 mg Oral tr24 1 tab once daily [Active]; metoprolol tartrate 50 mg Oral tab 1 tab 2 times per day [Active]; lisinopril-hydrochlorothiazide 10-12.5 mg Oral tab 1 tab once daily [Active]; sertraline 50 mg Oral tab 1 tab once daily [Active]; naltrexone 50 mg Oral tab 1 tab once daily [Active]; sertraline 100 mg Oral tab 1 tab nightly [Active]; - PMHx: 16:18 Colitis; Depression; Hypertension; Hypothyroidism; ca1 - PSHx: 16:18 None; ca1 - Immunization history:: Client reports having NOT received the Covid vaccine. Flu vaccine is not up to date. - Social history:: Smoking status: Patient denies any tobacco usage or history of. ROS: 21:26 Constitutional: Negative for fever, chills, and weight loss. kb 21:26 Abdomen/GI: Positive for abdominal pain, nausea and vomiting. 21:26 All other systems are negative. Exam: 21:33 Constitutional: This is a well developed, well nourished patient who is awake, alert, kb and in no acute distress. Head/Face: Normocephalic, atraumatic. ENT: Moist Mucous membranes Cardiovascular: Regular rate and rhythm with a normal S1 and S2. No gallops, murmurs, or rubs. No pulse deficits. Respiratory: Respirations even and unlabored. No increased work of breathing, no retractions or nasal flaring. Skin: Warm, dry with normal turgor. Normal color. MS/ Extremity: Pulses equal, no cyanosis. Neurovascular intact. Full, normal range of motion. Neuro: Awake and alert, GCS 15, oriented to person, place, time, and situation. Moves all extremities. Normal gait. Psych: Awake, alert, with orientation to person, place and time. Behavior, mood, and affect are within normal limits. 21:33 Abdomen/GI: Inspection: distension, that is mild, Bowel sounds: normal, in all quadrants, Palpation: soft, in all quadrants, moderate abdominal tenderness, in the right upper quadrant and left upper quadrant. Vital Signs: 16:13 BP 157 / 97; Pulse 114; Resp 18 S; Temp 97.1(TE); Pulse Ox 99% on R/A; Weight 114.31 kg ca1 (R); Height 5 ft. 1 in. (154.94 cm) (R); Pain 5/10; 17:11 BP 139 / 93; Pulse 91; Resp 18; Pulse Ox 98% on R/A; Pain 0/10; em 19:00 BP 131 / 62; Pulse 89; Resp 17; Pulse Ox 97% ; rr5 20:00 BP 135 / 89; Pulse 85; Resp 15; Pulse Ox 100% ; rr5 20:59 BP 149 / 64; Pulse 90; Resp 17; Pulse Ox 98% ; rr5 16:13 Body Mass Index 47.61 (114.31 kg, 154.94 cm) ca1 MDM: 16:44 Patient medically screened. kb 18:44 Data reviewed: vital signs, nurses notes. Data interpreted: Pulse oximetry: on room air kb is 98 %. Interpretation: normal. Counseling: I had a detailed discussion with the patient and/or guardian regarding: the historical points, exam findings, and any diagnostic results supporting the discharge/admit diagnosis, lab results, radiology results, the need for further work-up and treatment in the hospital. Physician consultation: Ray GAONA was contacted at 18:44, regarding admission, to the medical/surgical unit. patient's condition, and will see patient in ED, shortly. 18:57 Physician consultation: Samuel Bella MD was contacted at 18:45, regarding consult, patient's condition, Dr Bella is out of town and unavailable for consult. . 18:58 Physician consultation: Ken Soriano MD was contacted at 18:50, regarding consult, patient's condition, and will see patient in inpatient room. 07/12 16:45 Order name: Basic Metabolic Panel; Complete Time: 17:48 kb 07/12 16:45 Order name: CBC with Diff; Complete Time: 17:31 kb 07/12 16:45 Order name: Hepatic Function; Complete Time: 17:48 kb 07/12 16:45 Order name: Lipase; Complete Time: 17:48 kb 07/12 19:59 Order name: SARS-COV-2 RT PCR; Complete Time: 20:00 EDMS 07/12 16:45 Order name: CT Abd/Pelvis - IV Contrast Only; Complete Time: 18:24 kb 07/12 16:45 Order name: IV Saline Lock; Complete Time: 17:03 kb 07/12 16:45 Order name: Labs collected and sent; Complete Time: 17:03 kb 07/12 18:54 Order name: NG Tube; Complete Time: 19:35 kb Administered Medications: Discontinued: Flagyl (metroNIDAZOLE) 500 mg 100 ml IVPB at 200 ml/hr once over 30 mins Discontinued: Ciprofloxacin 400 mg 200 ml IVPB once over 60 mins 17:00 Drug: NS 0.9% 1000 ml Route: IV; Rate: 1000 ml; Site: right forearm; em 18:00 Follow up: Response: No adverse reaction; IV Status: Completed infusion; IV Intake: hb 1000ml 17:00 Drug: Zofran (Ondansetron) 4 mg Route: IVP; Site: right forearm; em 17:12 Follow up: Response: No adverse reaction; Marked relief of symptoms em 17:02 Drug: morphine 4 mg Route: IVP; Site: right forearm; em 17:12 Follow up: Response: No adverse reaction; Marked relief of symptoms; Pain is decreased em 18:57 Drug: Ciprofloxacin 400 mg Volume: 200 ml; Route: IVPB; Infused Over: 60 mins; Site: hb right forearm; 19:15 Follow up: Response: Adverse reaction, Physician notified; IV Status: Order to rr5 discontinue infusion 18:58 Drug: NS 0.9% 1000 ml Route: IV; Rate: 125 ml/hr; Site: right forearm; hb 21:52 Follow up: Response: No adverse reaction; IV Status: Infusion continued upon admission; rr5 IV Intake: 375ml 18:58 Drug: Flagyl (metroNIDAZOLE) 500 mg Volume: 100 ml; Route: IVPB; Rate: 200 ml/hr; hb Infused Over: 30 mins; Site: right forearm; 19:15 Follow up: Response: Adverse reaction, Physician notified rr5 19:25 Drug: SOLU-Medrol (methylPrednisoLONE) 60 mg Route: IVP; Site: right forearm; rr5 20:20 Follow up: Response: No adverse reaction rr5 19:27 Drug: Benadryl (diphenhydrAMINE) 12.5 mg Route: IVP; Site: right forearm; rr5 20:25 Follow up: Response: No adverse reaction rr5 19:31 Drug: morphine 2 mg {Note: Administered by CHRISTIANO Brown.} Route: IVP; Site: right wrist; jb4 20:30 Follow up: Response: No adverse reaction; RASS: Alert and Calm (0) rr5 19:34 Dru.375 grams of (Zosyn (piperacillin-tazobactam) 3.375 grams, NS 0.9% 100 ml) rr5 Route: IVPB; Infused Over: 60 mins; Site: right forearm; 20:22 Follow up: Response: No adverse reaction; IV Status: Completed infusion; IV Intake: rr5 100ml Disposition: 07/13 06:37 Co-signature as Attending Physician, Chad Xiong MD I agree with the assessment and kdr plan of care. Disposition: 07/12/20 18:46 Hospitalization ordered by Juan Ramon Wahl for Inpatient Admission. Preliminary diagnosis is Small Bowel Obstruction. - Bed requested for Telemetry/MedSurg (Inpatient). - Status is Inpatient Admission. rr5 - Condition is Stable. - Problem is new. - Symptoms are unchanged. Signatures: Dispatcher [employer] EDMT Selena Lerma, CHEMICAL RESEARCH WORKER-C CHEMICAL RESEARCH WORKER-Ckb Chad Xiong MD MD kdr Munoz, Edgar, RN RN em Elida Arriola, RN RN Tana Tam, RN RN Samuel Suarez, RN RN jb4 Kevin Rascon, RN RN rr5 Martha Lo RN RN ca1 Corrections: (The following items were deleted from the chart) 07/12 19:16 18:52 CORONAVIRUS+MR.LAB.BRZ ordered. [facility] 21:11 18:46 Hospitalization Ordered by Juan Ramon Wahl DO for Inpatient Admission. Preliminary cg diagnosis is Small Bowel Obstruction. Bed requested for Telemetry/MedSurg (Inpatient). Status is Inpatient Admission. Condition is Stable. Problem is new. Symptoms are unchanged. kb 21:56 21:11 07/12/2020 18:46 Hospitalization Ordered by Juan Ramon Wahl DO for Inpatient rr5 Admission. Preliminary diagnosis is Small Bowel Obstruction. Bed requested for Telemetry/MedSurg (Inpatient). Status is Inpatient Admission. Condition is Stable. Problem is new. Symptoms are unchanged. cg
[2020-07-12] MEDS ORDERED: METRONIDAZOLE 500mg IVPB 500 MG/100 ML BAG IV ONE (19:10)
[2020-07-12] MEDS ORDERED: CIPROFLOXACIN 400mg IV 400 MG/200 ML BAG IV ONE (19:10)
[2020-07-12] MEDS ORDERED: METHYLPREDNISOLONE 125 MG INJ ONE (19:31)
[2020-07-12] MEDS ORDERED: DIPHENHYDRAMINE 50 MG/ML VIAL ONE (19:31)
[2020-07-12] MEDS ORDERED: PIPER/TAZO/NS 3.375gm 3.375 GM/100 ML BAG ONE (19:31)
[2020-07-12] MEDS ORDERED: MORPHINE 2 MG/ML SYR ONE (19:49)
--- NOTE | 2020-07-12 20:27 | P.HP ---
Certification for Inpatient Patient admitted to: Inpatient With expected LOS: >2 Midnights Patient will require the following post-hospital care: None Practitioner: I am a practitioner with admitting privileges, knowledge of patient current condition, hospital course, and medical plan of care. Services: Services provided to patient in accordance with Admission requirements found in Title 42 Section 412.3 of the Code of Federal Regulations Patient History Date of Service: 07/12/20 Reason for admission: SBO History of Present Illness: 65-year-old female with history of hypertension, hypothyroidism, colitis, patient with admission last month for diverticulitis with microperforation. Patient was treated for diverticulitis with microperforation with IV antibiotics, no surgery was necessary, was discharged on p.o. antibiotics and recommended to have outpatient colonoscopy. Patient presented today for 2 weeks of abdominal pain, increasing. Patient reports small stools periodically. Patient was evaluated in the emergency department, labs significant for white blood cell count 9.4 GFR [address] abdomen pelvis with contrast demonstrates mechanical small bowel obstruction with small bowel dilated up to 4.5 cm with abrupt transition of the mid ileum which is in close proximity to the ileocecal valve. General surgery was consulted while patient was in the emergency department, recommended NGT to low intermittent wall suction, IV antibiotics, NPO and admission. Allergies latex [Latex] Allergy (Verified 05/12/11 07:41) Itching/Hives/Rash Latex, Natural Rubber Allergy (Verified 06/07/20 05:52) Unknown Home Medications: Ciprofloxacin HCl [Cipro 500 MG Tablet] 500 mg PO BID #20 tab 06/12/20 Lactobacillus Acidophilus [Acidophilus Lactobacilli] 1 each PO TID #90 capsule 06/12/20 metroNIDAZOLE [Flagyl] 500 mg PO Q8H #30 tablet 06/12/20 - Past Medical/Surgical History Diabetic: No -: HTN -: prediabetes -: hypothyroidism -: depression -: Diverticulitis with micro perforation -: Colitis -: Bowel obstruction -: - Family History Father -: Cancer Mother -: Heart disease - Social History Smoking Status: Former smoker Alcohol use: No CD- Drugs: No Caffeine use: Yes Place of Residence: Home Review of Systems 10-point ROS is otherwise unremarkable Gastrointestinal: Nausea, Abdominal Pain, Constipation Physical Examination - Physical Exam General: Alert, In no apparent distress, Oriented x3 HEENT: Atraumatic, PERRLA, Mucous membr. moist/pink, EOMI, Sclerae nonicteric Neck: Supple, 2+ carotid pulse no bruit, No LAD, Without JVD or thyroid abnormality Respiratory: Clear to auscultation bilaterally, Normal air movement Cardiovascular: Regular rate/rhythm, Normal S1 S2 Gastrointestinal: Normal bowel sounds, No tenderness, No masses, No rebound, No guarding Musculoskeletal: No tenderness Integumentary: No rashes Neurological: Normal speech, Normal strength at 5/5 x4 extr, Normal tone, Normal affect - Studies Laboratory Data (last 24 hrs) 07/12/20 17:00: WBC 9.40, Hgb 13.5, Hct 41.8, Plt Count 514 H 07/12/20 17:00: Sodium 141, Potassium 3.6, BUN 11, Creatinine 0.72, Glucose 107 H, Total Bilirubin 0.6, AST 22, ALT 25, Alkaline Phosphatase 125 H, Lipase 66 L Assessment and Plan - Plan Assessment Abdominal pain, constipation secondary to mechanical small bowel obstruction with history of diverticulitis with microperforation Hypertension, hyperlipidemia Plan Abdominal pain, constipation secondary to mechanical small bowel obstruction with history of diverticulitis with microperforation: Case was discussed with General Surgery. NPO, NGT to low intermittent wall suction, IV antibiotics. Patient was initially given Cipro and Flagyl but appear to have allergic reaction with itching and hives, unsure which antibiotic she is allergic to, will switch patient to Zosyn for now. P.r.n. anti emetics, antipyretics, pain medications. DVT prophylaxis Lovenox 40 mg once daily. Serial abdominal exams. Appreciate further input from general surgery. Hypertension, hyperlipidemia: Continue home medication when appropriate. Discharge Plan: Home Plan to discharge in: Greater than 2 days - Advance Directives Does patient have a Living Will: No Does patient have a Durable POA for Healthcare: No - Code Status/Comfort Care Code Status Assessed: Yes (Full code) Critical Care: No Time Spent Managing Pts Care (In Minutes): 55
[2020-07-12 22:30] VITALS: BMI 47.0
[2020-07-12] MEDS ORDERED: D5.45NS W/KCL 20MEQ 1,000 ML IV SCH (22:59)
[2020-07-12] MEDS ORDERED: ONDANSETRON 4 MG/2 ML VIAL IV PRN (22:59)
[2020-07-13] MEDS ORDERED: PIPER/TAZO/NS 3.375gm 3.375 GM/100 ML BAG ONE (00:19)
[2020-07-13] MEDS: PIPER/TAZO/NS 3.375gm 3.375 GM/100 ML BAG IVPB SCH ×3 (00:43→17:34)
[2020-07-13 05:55] LABS: Absolute Lymphocytes (CBC) 0.9 K/uL (0.7-4.9); Basophils % 0.4 % (0-1.3); Hematocrit 37.4 % (36.0-45.0)
[2020-07-13 06:07] LABS: Bilirubin Total 0.5 mg/dL (0.2-1.0); Magnesium 2.1 mg/dL (1.8-2.4); Potassium 3.9 mmol/L (3.5-5.1); Protein, Total 6.9 g/dL (6.4-8.2)
[2020-07-13] MEDS: ENOXAPARIN 40 MG/0.4 ML SQ SCH (09:00)
--- NOTE | 2020-07-13 09:10 | RAD REPORT ---
EXAM DESCRIPTION: RAD - Abdomen W Erect - 07/13/2020 5:01 am CLINICAL HISTORY: eval SBO Pain COMPARISON: Abdomen W Erect dated 06/07/2020 FINDINGS: Multiple dilated small bowel loops in the upper abdomen compatible with a moderate mechani mook small-bowel obstruction. Enteric tube coils in the stomach. No pneumoperitoneum. IMPRESSION: Moderately severe mechanical small bowel obstruction.
[2020-07-13] MEDS: MORPHINE 2 MG/ML SYR IV PRN (09:46)
[2020-07-13] MEDS: METHYLPREDNISOLONE 40 MG INJ IV SCH ×2 (09:46→17:34)
[2020-07-13] MEDS: D5 0.45 NS 1,000 ML IV SCH ×2 (09:47→18:00)
[2020-07-13 10:15] LABS: C-Reactive Protein 23.5 mg/L (<3.00)
--- NOTE | 2020-07-13 11:00 | CON ---
Date of Consultation: 07/13/2020 Brief History Of Present Illness: The patient is a 65-year-old female with a history of hy pertension, hypothyroidism, colitis, who was admitted last month for diverticulitis with microperfora tion, treated with antibiotics with Cipro and Flagyl, who ultimately presents back with approximately 1-week history of worsening abdominal pain, nausea, vomiting, inability to tolerate p.o. She states that whenever she takes p.o., she feels nausea, vomiting, multiple episodes of vomiting, decreased b owel function, increased abdominal distention, pain, bloating similar to her previous experience, but on a much worse basis at this particular occasion. Findings had a last colonoscopy in 2011, which h ad an incidental finding of multiple polyps, 1 of which she states was too large to remove at that po int and as such, she did not get it removed in 2012. She did state that she had a possible diagnosis of Crohn disease as well on that particular occasion, but it was never confirmed and she does not canseco ve any followup. 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 She did not want to continue care with that particular provider. As such, she has had no treatment for her possi ble inflammatory bowel disease. Now, she comes in with similar complaints as described above. Past Medical History: Significant for hypertension, diabetes, hypothyroidism, depression, diverticul itis, colitis, bowel obstructions in the past, possible inflammatory bowel disease/Crohn disease, pos sible colonic mass of uncertain etiology. Past Surgical History: She denies any abdominal surgery. She denies having any C-sections or any ot her types of abdominal surgery. She has only had a colonoscopy in 2012. Home Medications: Included Cipro, Flagyl, and lactobacillus. Allergies: TO LATEX, NATURAL RUBBER, BUSPAR, POSSIBLE REACTIONS. NOT ALLERGIES TO CIPRO AND FLAGYL BY HER REPORT. Family History: Significant for cancer in her father. Mother had heart disease. Social History: She is a former smoker. Denies alcohol or recreational drug use. Review of Systems: Ten-point review of systems other than HPI, denies. Physical Examination: Vital Signs: At the time of my examination; her BMI is 47. Her vital signs were blood pressure 148/ 89, pulse is 68, respiratory rate 20, temperature 98.4. General: She is awake, alert, and oriented. Psychiatric: She is appropriate. Conversive. HEENT: Normocephalic. Sclerae icteric. Mucous membranes are moist. Oropharynx is clear. Neck: Supple without JVD. Chest: Normal expansion and excursion. Cardiovascular: Regular rate and rhythm. Pulmonary: Clear to auscultation bilaterally. Abdomen: Soft with global tenderness to palpation. No rebound. No guarding. No focal peritonitis. She has an NG tube in place with greenish brown effluent. Her oxygen saturation was 99% on room ai r. Laboratory Data: Reveals a white blood count of 6.6, hemoglobin 12.0, hematocrit 37.4, platelet coun t was 457. Her neutrophils 84%. Her sodium is 142, potassium 3.9, chloride 109, carbon dioxide 27, BUN 9, creatinine 0.7, glucose was 145, total bilirubin was 0.5. Her AST is 22, ALT 25, alkaline germain sphatase is 114. She had a lipase of 66 on admission. Her COVID was negative. She had imaging perf ormed, which included a CT abdomen and pelvis on 07/12, officially read as a small hiatal hernia pres ent. No gastric wall thickening or mass. Fluid-filled nondilated duodenum is present. Jejunum prog ressively dilates in the dilatation, extends to the distal ileum. Small bowel loops are dilated too as much as 4.5 cm. Intraperitoneal findings focused primarily around the ileocecal valve. There parth ears to be pronounced post infectious/post inflammatory stricture hanson of the terminal ileum showed thickening. There is additional stricture involving the mid ileum. There is an abrupt transition of dilated small bowel loops. There are multiple small bowel lymph nodes in this region. No calcifica tions present, possibility of carcinoid or other peritoneal neoplastic process is a possibility. No appendix is not identified. Stomach is decompressed. Assessment And Plan: This is a 65-year-old female, who comes in with evidence of a bowel obstruction . I suspect this is likely related to her inflammatory bowel disease, although she has never had the diagnosis confirmed, however and also could be related to an obstructive mass near the ileocecal anusha ve, possible carcinoid as she had a long history of untreated possible mass by her description on her last colonoscopy. As such, I recommend steroid treatment to treat her inflammatory bowel disease at this point. If she does not resolve, I would recommend a bowel prep and possibly EGD and colonoscop y to see if there is an obstructing mass to the ileocecal valve on colonoscopy and possibly obtain bi opsies to confirm a possible diagnosis of inflammatory bowel disease. This could be done as an outpa tient if the patient continues to improve and as such, I recommend continued n.p.o., NG tube decompre ssion, serial abdominal exams and medical management. I have explained the risks, benefits, and alte rnatives of the above stated plan. The patient agrees to proceed as indicated. Thank you for this interesting consult. RODGER/ALIREZA Voice ID: [id number] Report ID: [id number]
--- NOTE | 2020-07-13 12:44 | P.PN ---
Subjective Date of Service: 07/13/20 Primary Care Provider: Unknown Chief Complaint: SBO Subjective: Other (NG tube in place. Patient reports no passage of gas or stool. Pain controlled) Physical Examination - Vital Signs Temperature: 97.8 F Blood Pressure: 159/71 Pulse: 61 Respirations: 20 Pulse Ox (%): 99 - Studies Laboratory Data (last 24 hrs) 07/12/20 17:00: WBC 9.40, Hgb 13.5, Hct 41.8, Plt Count 514 H 07/12/20 17:00: Sodium 141, Potassium 3.6, BUN 11, Creatinine 0.72, Glucose 107 H, Total Bilirubin 0.6, AST 22, ALT 25, Alkaline Phosphatase 125 H, Lipase 66 L Assessment & Plan Discharge Plan: Home Plan to discharge in: Greater than 2 days Physician Review Additional Text: Physical exam: Patient alert, cooperative. No significant distress noted. HEENT: NG tube in place Neck: Supple Heart: Regular rate rhythm Lungs: Clear to auscultation Abdomen: No significant distention. Pain well controlled. patient appears to be improved. Extremities: Good range of motion to the upper lower extremities Psych: Patient with good mentation Impression: Abdominal pain, constipation secondary to mechanical small bowel obstruction with history of diverticulitis with microperforation and Crohn's Hypertension Hyperlipidemia Obesity, BMI 47 Plan Abdominal pain, constipation secondary to mechanical small bowel obstruction with history of diverticulitis with microperforation and Crohn's: NG tube in place. Continue NPO status. Continue IV antibiotic therapy. Case discussed with General surgery. Patient with history of Crohn's. Surgery recommends to continue current management but add IV Solu-Medrol. Anticipate improvement with IV steroids. Continue monitor the patient closely with IV Zosyn. DVT prophylaxis in place. Encourage incentive spirometer. Encourage ambulation. Will continue monitor serial enzymes. If no improvement patient may require surgical intervention. If improved surgery will consider EGD/colonoscopy in the future. Anticipate improvement over the next 48-72 hr. Hypertension: Will provide medication IV if required. Hyperlipidemia: Hold medication Obesity, BMI 47: Continue lifestyle modification education. Code status: Patient is full code DVT prophylaxis: Patient currently on Lovenox Advanced care planning-30 min: Patient desires to go home at discharge.
[2020-07-13] MEDS ORDERED: KCL 20 MEQ/100 mL IVPB 20 MEQ/100 ML BAG IV SCH (13:00)
[2020-07-13] MEDS: FAMOTIDINE 20 MG/2 ML VIAL IV SCH (20:14)
[2020-07-13 22:14] LABS: Urine Appearance TURBID (Clear); Urine Blood NEGATIVE (Negative); Urine Color DK YELLOW (Yellow); Urine Glucose NEGATIVE (Negative); Urine Protein NEGATIVE (Negative); Urine Specific Gravity >=1.030 (1.005-1.030); Urine Urobilinogen 0.2 mg/dL (0.2-1.0)
[2020-07-13 22:22] LABS: Urine Bilirubin NEGATIVE (Negative)
[2020-07-13 22:23] LABS: Urine Microscopic Reflex ORDER UMIC
[2020-07-13 22:44] LABS: Urine Amorphous Sediment 2+ /HPF (NONE SEEN); Urine Bacteria LOADED /HPF (<20); Urine Mucus 2+ /HPF (NONE SEEN); Urine RBC NONE SEEN /HPF (NONE SEEN)
[2020-07-14] MEDS: PIPER/TAZO/NS 3.375gm 3.375 GM/100 ML BAG IVPB SCH ×3 (00:44→16:31)
[2020-07-14] MEDS: D5 0.45 NS 1,000 ML IV SCH ×2 (00:44→12:46)
[2020-07-14] MEDS: METHYLPREDNISOLONE 40 MG INJ IV SCH ×3 (00:45→16:30)
[2020-07-14] MEDS: MORPHINE 2 MG/ML SYR IV PRN ×2 (01:11→16:30)
[2020-07-14 05:57] LABS: Absolute Lymphocytes (CBC) 1.2 K/uL (0.7-4.9); Basophils % 0.7 % (0-1.3); Hematocrit 37.8 % (36.0-45.0); Lymphocytes % 12.5 % (15.3-44.8); MPV 8.4 fL (7.6-11.3); RBC Red Blood Cell Count 4.53 M/uL (3.86-4.86)
[2020-07-14 06:17] LABS: Bilirubin Total 0.3 mg/dL (0.2-1.0); Magnesium 2.2 mg/dL (1.8-2.4); Potassium 3.7 mmol/L (3.5-5.1); Protein, Total 6.9 g/dL (6.4-8.2)
[2020-07-14] MEDS: ENOXAPARIN 40 MG/0.4 ML SQ SCH (08:59)
[2020-07-14] MEDS: FAMOTIDINE 20 MG/2 ML VIAL IV SCH ×2 (08:59→21:23)
--- NOTE | 2020-07-14 12:28 | P.PN ---
Subjective Date of Service: 07/14/20 Primary Care Provider: Unknown Chief Complaint: SBO Subjective: Improving, Doing well (Pain well controlled. Patient without significant bowel movement or gas.) Physical Examination - Vital Signs Temperature: 97.1 F Blood Pressure: 169/72 Pulse: 58 Respirations: 16 Pulse Ox (%): 97 Assessment & Plan Discharge Plan: Home Plan to discharge in: 48 Hours Physician Review Additional Text: Physical exam: Patient alert, cooperative. No significant distress noted. HEENT: NG tube in place Neck: Supple Heart: Regular rate rhythm Lungs: Clear to auscultation Abdomen: No significant pain noted Extremities: Good range of motion to the upper lower extremities Psych: Patient with good mentation Impression: Abdominal pain, constipation secondary to mechanical small bowel obstruction with history of diverticulitis with microperforation and Crohn's Hypertension Hyperlipidemia Obesity, BMI 47 Plan Abdominal pain, constipation secondary to mechanical small bowel obstruction with history of diverticulitis with microperforation and Crohn's: NG tube in place. Continue NPO status. Continue IV antibiotic therapy and IV Solu-Medrol. Patient overall improved. Continue to encourage ambulation. Still no bowel movement or passage of gas. Will discuss with surgery on further plan of care. Anticipate continued improvement. DVT prophylaxis in place. Encourage incentive spirometer. Encourage ambulation. Will continue monitor serial enzymes. If no improvement patient may require surgical intervention. If improved surgery will consider EGD/colonoscopy in the future. Anticipate improvement over the next 48-72 hr. Hypertension: Will provide medication IV if required. Hyperlipidemia: Hold medication Obesity, BMI 47: Continue lifestyle modification education. Code status: Patient is full code DVT prophylaxis: Patient currently on Lovenox Advanced care planning-30 min: Patient desires to go home at discharge. Time Spent Managing Pts Care (In Minutes): 55
[2020-07-15] MEDS: D5 0.45 NS 1,000 ML IV SCH
[2020-07-15] MEDS: PIPER/TAZO/NS 3.375gm 3.375 GM/100 ML BAG IVPB SCH ×3 (00:37→16:45)
[2020-07-15] MEDS: METHYLPREDNISOLONE 40 MG INJ IV SCH ×3 (00:37→17:00)
[2020-07-15 04:42] VITALS: O2SAT 97
[2020-07-15] MEDS ORDERED: LEVOTHYROXINE SODIUM 100 MCG VIAL IV SCH (06:00)
[2020-07-15 06:09] LABS: Potassium 4.2 mmol/L (3.5-5.1)
--- NOTE | 2020-07-15 07:32 | RAD REPORT ---
EXAM DESCRIPTION: RAD - Abdomen 1 View ([facility]) - 07/15/2020 7:00 am CLINICAL HISTORY: follow up SBO Abdominal pain COMPARISON: Abdomen W Erect dated 07/13/2020; Abdomen Pelvis W Contrast dated 07/12/2020 FINDINGS: Multiple air-filled distended to mildly dilated small bowel loops are present showing impr ovement from the July 13 imaging. Colon is decompressed. Tip of the NG tube is in the third portion of the duodenum. No free air or pneumatosis identified. No suspicious calcifications. No significant bony findings IMPRESSION: Small bowel dilation pattern has significantly improved but not fully resolved since July 13. No free air or pneumatosis have developed. Tip of the NG tube is well into the duodenum.
[2020-07-15] MEDS: D5W 1,000 ML IV SCH (07:55)
[2020-07-15] MEDS: ENOXAPARIN 40 MG/0.4 ML SQ SCH (08:54)
[2020-07-15] MEDS: FAMOTIDINE 20 MG/2 ML VIAL IV SCH ×2 (08:55→20:38)
[2020-07-15] MEDS: HYDRALAZINE HCL 20 MG/ML VIAL IV PRN ×2 (11:53→20:43)
--- NOTE | 2020-07-15 13:22 | P.PN ---
Subjective Date of Service: 07/15/20 Primary Care Provider: Unknown Chief Complaint: SBO Subjective: Improving (She is passing gas. No pain.) Physical Examination - Vital Signs Temperature: 97.4 F Blood Pressure: 180/68 Pulse: 60 Respirations: 18 Pulse Ox (%): 99 Assessment & Plan Discharge Plan: Home Plan to discharge in: 48 Hours Physician Review Additional Text: Physical exam: Patient alert, cooperative. No significant distress noted. HEENT: NG tube in place Neck: Supple Heart: Regular rate rhythm Lungs: Clear to auscultation Abdomen: No significant pain noted Extremities: Good range of motion to the upper lower extremities Psych: Patient with good mentation Impression: Abdominal pain, constipation secondary to mechanical small bowel obstruction with history of diverticulitis with microperforation and Crohn's Hypernatremia Hypertension Hyperlipidemia Diabetes mellitus type 2 Hypothyroidism Depression Obesity, BMI 47 Plan Abdominal pain, constipation secondary to mechanical small bowel obstruction with history of diverticulitis with microperforation and Crohn's: Patient has improved. Spoke with surgery. Surgery plans to remove NG tube and start on clear liquid diet. X-ray shows improvement. Continue IV fluids, antibiotic therapy and Solu-Medrol. DVT prophylaxis in place. Encourage incentive spirometer. Encourage ambulation. Anticipate continued improvement over the next 48 hr. I will turn the service over to the hospitalist team tomorrow. I will go plan of care with him. Hypernatremia: IV fluids changed to D5 W. Recheck lab this afternoon. If improved will adjust IV fluids appropriately. Hypertension: Restart home medication. Will provide medication IV if required. Hypothyroidism: Restart home medication. Diabetes mellitus type 2: Hold metformin. Continue sliding scale. Accu-Cheks in place. Check A1c. Depression: Restart home medication. Hyperlipidemia: Restart home medication Obesity, BMI 47: Continue lifestyle modification education. Code status: Patient is full code DVT prophylaxis: Patient currently on Lovenox Advanced care planning-30 min: Patient desires to go home at discharge. Time Spent Managing Pts Care (In Minutes): 55
[2020-07-15 15:05] LABS: Potassium 4.1 mmol/L (3.5-5.1)
[2020-07-15] MEDS: METOPROLOL TAR 50 MG TAB PO SCH (20:36)
[2020-07-15] MEDS ORDERED: buPROPion HCL 100 MG TAB PO SCH (21:00)
[2020-07-15] MEDS ORDERED: Bupropion Hcl [Wellbutrin] 75 MG Tablet PO SCH (21:00)
[2020-07-16] MEDS: MORPHINE 2 MG/ML SYR IV PRN (00:10)
[2020-07-16] MEDS: PIPER/TAZO/NS 3.375gm 3.375 GM/100 ML BAG IVPB SCH ×2 (00:10→10:04)
[2020-07-16] MEDS: METHYLPREDNISOLONE 40 MG INJ IV SCH ×2 (00:11→10:04)
[2020-07-16 05:39] LABS: Magnesium 2.2 mg/dL (1.8-2.4)
[2020-07-16 05:48] LABS: Absolute Lymphocytes (CBC) 1.4 K/uL (0.7-4.9); Basophils % 0.1 % (0-1.3); Hematocrit 37.4 % (36.0-45.0); Lymphocytes % 16.8 % (15.3-44.8); MPV 8.2 fL (7.6-11.3); RBC Red Blood Cell Count 4.51 M/uL (3.86-4.86)
[2020-07-16] MEDS: D5W 1,000 ML IV SCH (05:52)
[2020-07-16] MEDS ORDERED: LEVOTHYROXINE SOD 0.025 MG TAB PO SCH (06:30)
[2020-07-16] MEDS ORDERED: VITAMIN D 5,000 UNIT CAP PO SCH (09:00)
[2020-07-16] MEDS ORDERED: buPROPion HCL 100 MG TAB PO SCH (09:00)
[2020-07-16] MEDS ORDERED: HOME MED 1 EA UNK (Levothyroxine Sodium [Levothyroxine] 25 MCG Capsule) PO SCH (09:00)
[2020-07-16] MEDS ORDERED: SERTRALINE HCL 100 MG TAB PO SCH (09:00)
[2020-07-16] MEDS ORDERED: SERTRALINE HCL 50 MG TAB PO SCH (09:00)
[2020-07-16] MEDS ORDERED: HOME MED 1 EA UNK (Bupropion Hcl [Wellbutrin] 75 MG Tablet) PO SCH (09:00)
[2020-07-16] MEDS ORDERED: lisinopriL 10 MG TAB PO SCH (09:00)
[2020-07-16] MEDS: ENOXAPARIN 40 MG/0.4 ML SQ SCH (09:00)
[2020-07-16] MEDS ORDERED: hydroCHLOROthiazide 12.5 MG CAP PO SCH (09:00)
[2020-07-16] MEDS ORDERED: HOME MED 1 EA UNK (Lisinopril/Hydrochlorothiazide [Lisinopril-Hctz 10-12.5 Mg Tab] Tablet) PO SCH (09:00)
[2020-07-16] MEDS: METOPROLOL TAR 50 MG TAB PO SCH (10:03)
[2020-07-16] MEDS: FAMOTIDINE 20 MG/2 ML VIAL IV SCH (10:04)
--- NOTE | 2020-07-16 10:20 | RAD REPORT ---
EXAM DESCRIPTION: RAD - Abdomen 1 View ([facility]) - 07/16/2020 6:11 am CLINICAL HISTORY: Abdomen pain. FINDINGS: Several moderately dilated loops small bowel have mildly increased in caliber. Air in the colon is diminished. This is compatible with a mild worsening in the small bowel obstruction
[2020-07-16 17:17] VITALS: BP 177/80; TEMP 97.5
--- NOTE | 2020-07-17 18:30 | P.PN ---
Subjective Date of Service: 07/14/20 Primary Care Provider: Unknown Chief Complaint: SBO Subjective: Improving (Patient feeling better, no gas, minimal pain, no BM) Physical Examination - Vital Signs Temperature: 97.5 F Blood Pressure: 177/80 Pulse: 51 Respirations: 18 Pulse Ox (%): 97 - Physical Exam General: Alert, In no apparent distress, Cooperative Respiratory: Clear to auscultation bilaterally Cardiovascular: Regular rate/rhythm Gastrointestinal: Other (soft, mild global TTP, ND, no peritonitis) Assessment And Plan - Current Problems (Diagnosis) (1) Small bowel obstruction Status: Acute Plan: - NGT to LIWS - Continue IV Hydration - Steroids - Antibiotics - Patient will need EGD / Colonoscopy for possible IBD Physician Review Additional Text: Physical exam: Patient alert, cooperative. No significant distress noted. HEENT: NG tube in place Neck: Supple Heart: Regular rate rhythm Lungs: Clear to auscultation Abdomen: No significant pain noted Extremities: Good range of motion to the upper lower extremities Psych: Patient with good mentation Impression: Abdominal pain, constipation secondary to mechanical small bowel obstruction with history of diverticulitis with microperforation and Crohn's Hypernatremia Hypertension Hyperlipidemia Diabetes mellitus type 2 Hypothyroidism Depression Obesity, BMI 47 Plan Abdominal pain, constipation secondary to mechanical small bowel obstruction with history of diverticulitis with microperforation and Crohn's: Patient has improved. Spoke with surgery. Surgery plans to remove NG tube and start on clear liquid diet. X-ray shows improvement. Continue IV fluids, antibiotic therapy and Solu-Medrol. DVT prophylaxis in place. Encourage incentive spirometer. Encourage ambulation. Anticipate continued improvement over the next 48 hr. I will turn the service over to the hospitalist team tomorrow. I will go plan of care with him. Hypernatremia: IV fluids changed to D5 W. Recheck lab this afternoon. If improved will adjust IV fluids appropriately. Hypertension: Restart home medication. Will provide medication IV if required. Hypothyroidism: Restart home medication. Diabetes mellitus type 2: Hold metformin. Continue sliding scale. Accu-Cheks in place. Check A1c. Depression: Restart home medication. Hyperlipidemia: Restart home medication Obesity, BMI 47: Continue lifestyle modification education. Code status: Patient is full code DVT prophylaxis: Patient currently on Lovenox Advanced care planning-30 min: Patient desires to go home at discharge.
--- NOTE | 2020-07-17 18:32 | P.PN ---
Subjective Date of Service: 08/15/20 Primary Care Provider: Unknown Chief Complaint: SBO Subjective: Improving (passing gas, non-tender) Physical Examination - Vital Signs Temperature: 97.5 F Blood Pressure: 177/80 Pulse: 51 Respirations: 18 Pulse Ox (%): 97 - Physical Exam General: Alert, In no apparent distress, Cooperative HEENT: Mucous membr. moist/pink Neck: Other (NGT in place) Respiratory: Clear to auscultation bilaterally, Normal air movement Cardiovascular: Regular rate/rhythm Gastrointestinal: Soft and benign, Non-distended, No ascites, No tenderness, No masses, No rebound, No guarding Assessment And Plan - Current Problems (Diagnosis) (1) Small bowel obstruction Status: Acute Plan: - DC NGT - Continue IV Hydration - Steroids - Antibiotics - Patient will need EGD / Colonoscopy for possible IBD Physician Review Additional Text: Physical exam: Patient alert, cooperative. No significant distress noted. HEENT: NG tube in place Neck: Supple Heart: Regular rate rhythm Lungs: Clear to auscultation Abdomen: No significant pain noted Extremities: Good range of motion to the upper lower extremities Psych: Patient with good mentation Impression: Abdominal pain, constipation secondary to mechanical small bowel obstruction with history of diverticulitis with microperforation and Crohn's Hypernatremia Hypertension Hyperlipidemia Diabetes mellitus type 2 Hypothyroidism Depression Obesity, BMI 47 Plan Abdominal pain, constipation secondary to mechanical small bowel obstruction with history of diverticulitis with microperforation and Crohn's: Patient has improved. Spoke with surgery. Surgery plans to remove NG tube and start on clear liquid diet. X-ray shows improvement. Continue IV fluids, antibiotic therapy and Solu-Medrol. DVT prophylaxis in place. Encourage incentive spirometer. Encourage ambulation. Anticipate continued improvement over the next 48 hr. I will turn the service over to the hospitalist team tomorrow. I will go plan of care with him. Hypernatremia: IV fluids changed to D5 W. Recheck lab this afternoon. If impro jonny will adjust IV fluids appropriately. Hypertension: Restart home medication. Will provide medication IV if required. Hypothyroidism: Restart home medication. Diabetes mellitus type 2: Hold metformin. Continue sliding scale. Accu-Cheks in place. Check A1c. Depression: Restart home medication. Hyperlipidemia: Restart home medication Obesity, BMI 47: Continue lifestyle modification education. Code status: Patient is full code DVT prophylaxis: Patient currently on Lovenox Advanced care planning-30 min: Patient desires to go home at discharge.
--- NOTE | 2020-07-17 18:33 | P.PN ---
Subjective Date of Service: 07/16/20 Primary Care Provider: Unknown Chief Complaint: SBO Subjective: Improving (NGT out, passing gas, +BM, pain free,) Physical Examination - Vital Signs Temperature: 97.5 F Blood Pressure: 177/80 Pulse: 51 Respirations: 18 Pulse Ox (%): 97 - Physical Exam General: Alert, In no apparent distress, Cooperative HEENT: Mucous membr. moist/pink Respiratory: Clear to auscultation bilaterally, Normal air movement Cardiovascular: Regular rate/rhythm Gastrointestinal: Soft and benign, Non-distended, No ascites, No tenderness, No rebound Assessment And Plan - Current Problems (Diagnosis) (1) Small bowel obstruction Status: Acute Plan: - Start clears - Continue IV Hydration - wean - Steroids - Antibiotics - wean - Patient will need EGD / Colonoscopy for possible IBD Physician Review Additional Text: Physical exam: Patient alert, cooperative. No significant distress noted. HEENT: NG tube in place Neck: Supple Heart: Regular rate rhythm Lungs: Clear to auscultation Abdomen: No significant pain noted Extremities: Good range of motion to the upper lower extremities Psych: Patient with good mentation Impression: Abdominal pain, constipation secondary to mechanical small bowel obstruction with history of diverticulitis with microperforation and Crohn's Hypernatremia Hypertension Hyperlipidemia Diabetes mellitus type 2 Hypothyroidism Depression Obesity, BMI 47 Plan Abdominal pain, constipation secondary to mechanical small bowel obstruction with history of diverticulitis with microperforation and Crohn's: Patient has improved. Spoke with surgery. Surgery plans to remove NG tube and start on clear liquid diet. X-ray shows improvement. Continue IV fluids, antibiotic therapy and Solu-Medrol. DVT prophylaxis in place. Encourage incentive spirometer. Encourage ambulation. Anticipate continued improvement over the next 48 hr. I will turn the service over to the hospitalist team tomorrow. I will go plan of care with him. Hypernatremia: IV fluids changed to D5 W. Recheck lab this afternoon. If improved will adjust IV fluids appropriately. Hypertension: Restart home medication. Will provide medication IV if required. Hypothyroidism: Restart home medication. Diabetes mellitus type 2: Hold metformin. Continue sliding scale. Accu-Cheks in place. Check A1c. Depression: Restart home medication. Hyperlipidemia: Restart home medication Obesity, BMI 47: Continue lifestyle modification education. Code status: Patient is full code DVT prophylaxis: Patient currently on Lovenox Advanced care planning-30 min: Patient desires to go home at discharge.
--- NOTE | 2020-07-17 18:34 | P.PN ---
Subjective Date of Service: 07/17/20 Primary Care Provider: Unknown Chief Complaint: SBO Subjective: Improving (Tolerated diet, passing gas, having bowel movements, pain free, ambulatory) Physical Examination - Vital Signs Temperature: 97.5 F Blood Pressure: 177/80 Pulse: 51 Respirations: 18 Pulse Ox (%): 97 - Physical Exam General: Alert, In no apparent distress, Cooperative HEENT: Mucous membr. moist/pink Respiratory: Normal air movement Cardiovascular: Regular rate/rhythm Gastrointestinal: Soft and benign, Non-distended, No ascites, No tenderness, No masses, No rebound, No guarding Assessment And Plan - Current Problems (Diagnosis) (1) Small bowel obstruction Status: Acute Plan: - Advance diet, low residue diet - Continue IV Hydration - wean - Steroids - taper - Antibiotics - wean - Patient will need EGD / Colonoscopy for possible IBD Physician Review Additional Text: Physical exam: Patient alert, cooperative. No significant distress noted. HEENT: NG tube in place Neck: Supple Heart: Regular rate rhythm Lungs: Clear to auscultation Abdomen: No significant pain noted Extremities: Good range of motion to the upper lower extremities Psych: Patient with good mentation Impression: Abdominal pain, constipation secondary to mechanical small bowel obstruction with history of diverticulitis with microperforation and Crohn's Hypernatremia Hypertension Hyperlipidemia Diabetes mellitus type 2 Hypothyroidism Depression Obesity, BMI 47 Plan Abdominal pain, constipation secondary to mechanical small bowel obstruction wit h history of diverticulitis with microperforation and Crohn's: Patient has improved. Spoke with surgery. Surgery plans to remove NG tube and start on clear liquid diet. X-ray shows improvement. Continue IV fluids, antibiotic therapy and Solu-Medrol. DVT prophylaxis in place. Encourage incentive spirometer. Encourage ambulation. Anticipate continued improvement over the next 48 hr. I will turn the service over to the hospitalist team tomorrow. I will go plan of care with him. Hypernatremia: IV fluids changed to D5 W. Recheck lab this afternoon. If improved will adjust IV fluids appropriately. Hypertension: Restart home medication. Will provide medication IV if required. Hypothyroidism: Restart home medication. Diabetes mellitus type 2: Hold metformin. Continue sliding scale. Accu-Cheks in place. Check A1c. Depression: Restart home medication. Hyperlipidemia: Restart home medication Obesity, BMI 47: Continue lifestyle modification education. Code status: Patient is full code DVT prophylaxis: Patient currently on Lovenox Advanced care planning-30 min: Patient desires to go home at discharge.
--- NOTE | 2020-07-23 03:42 | P.DS ---
Discharge Date: 07/16/20 Primary Care Provider: Unknown Disposition: ROUTINE DISCHARGE Discharge Condition: GOOD Reason for Admission: SBO Consultations: General surgeon Brief History of Present Illness: 65-year-old female with history of hypertension, hypothyroidism, colitis, patient with admission last month for diverticulitis with microperforation. Patient was treated for diverticulitis with microperforation with IV antibiotics, no surgery was necessary, was discharged on p.o. antibiotics and recommended to have outpatient colonoscopy. Patient presented today for 2 weeks of abdominal pain, increasing. Patient reports small stools periodically. Patient was evaluated in the emergency department, labs significant for white blood cell count 9.4 GFR [address] abdomen pelvis with contrast demonstrates mechanical small bowel obstruction with small bowel dilated up to 4.5 cm with abrupt transition of the mid ileum which is in close proximity to the ileocecal valve. General surgery was consulted while patient was in the emergency department, recommended NGT to low intermittent wall suction, IV antibiotics, NPO and admission. Hospital Course: Patient done well during hospitalization. Patient is clinically doing well. Patient small-bowel obstruction has resolved and patient is tolerating diet and moving bowels. At this time, patient is stable for discharge with outpatient follow-up. Vital Signs/Physical Exam: Temp Pulse Resp BP Pulse Ox 97.5 F 51 18 177/80 H 97 07/17/20 18:34 07/17/20 18:34 07/17/20 18:34 07/17/20 18:34 07/17/20 18:34 General: Alert, In no apparent distress, Oriented x3 Laboratory Data at Discharge: WBC 8.10 K/uL (4.3-10.9) D 07/16/20 05:15 Hgb 12.2 g/dL (12.0-15.0) 07/16/20 05:15 Hct 37.4 % (36.0-45.0) 07/16/20 05:15 Plt Count 468 K/uL (152-406) H 07/16/20 05:15 Sodium 144 mmol/L (136-145) 07/16/20 05:15 Potassium 4.0 mmol/L (3.5-5.1) 07/16/20 05:15 BUN 10 mg/dL (7-18) 07/16/20 05:15 Creatinine 0.69 mg/dL (0.55-1.3) 07/16/20 05:15 Glucose 115 mg/dL (74-106) H 07/16/20 05:15 Magnesium 2.2 mg/dL (1.8-2.4) 07/16/20 05:15 Total Bilirubin 0.3 mg/dL (0.2-1.0) 07/14/20 05:26 AST 12 U/L (15-37) L 07/14/20 05:26 ALT 22 U/L (12-78) 07/14/20 05:26 Alkaline Phosphatase 102 U/L (45-117) 07/14/20 05:26 Lipase 66 U/L (73-393) L 07/12/20 17:00 Home Medications: Bupropion HCl [Wellbutrin] 75 mg PO BEDTIME 07/13/20 Bupropion HCl [Wellbutrin] 150 mg PO DAILY 07/13/20 Cholecalciferol (Vitamin D3) [Vitamin D 5,000 IU Cap*] 5,000 units PO DAILY 07/13/20 Ferrous Sulfate 325 mg PO BID 07/13/20 Levothyroxine Sodium [Levothyroxine] 25 mcg PO DAILY 07/13/20 Lisinopril/Hydrochlorothiazide [Lisinopril-Hctz 10-12.5 mg Tab] 1 each PO DAILY 07/13/20 Metformin HCl [Glucophage Xr] 500 mg PO DAILY AT SUPPER 07/13/20 Metoprolol Tartrate 50 mg PO BID 07/13/20 Naltrexone [Naltrexone Base Monohydrate] 50 mg PO DAILY 07/13/20 Sertraline [Zoloft*] 50 mg PO DAILY 07/13/20 Sertraline [Zoloft*] 100 mg PO DAILY 07/13/20 Cefdinir [Omnicef] 300 mg PO BID #14 capsule 07/16/20 Mesalamine [Asacol Hd] 800 mg PO DAILY #30 tablet. 07/16/20 predniSONE [Deltasone] 20 mg PO DAILY #5 tab 07/16/20 New Medications: Mesalamine [Asacol Hd] 800 mg PO DAILY #30 tablet. Cefdinir [Omnicef] 300 mg PO BID #14 capsule predniSONE [Deltasone] 20 mg PO DAILY #5 tab Physician Discharge Instructions: OK TO DC IV AND DC HOME FOLLOW-UP WITH PRIMARY CARE PROVIDER IN 1-2 WEEKS FOLLOW-UP WITH Surgery IN 1-2 WEEKS RETURN TO THE ER IF symptoms worsen CALL or TEXT DR. MOORE AT [phone] IF ANY QUESTIONS REGARDING HOSPITAL STAY. PLEASE CALL THE FLOOR AT [phone] IF ANY MEDICATION OR NURSING QUESTIONS. Diet: AHA Activity: Fall precautions Followup: Ken Soriano MD [ACTIVE - CAN ADMIT] - Moriah Vasquez NP [Primary Care Provider] - Time spent managing pt's care (in minutes): 35
== END 2020-07-16 17:21 | disposition home or self-care (01) | DRG 389 ==
LOC: ER 16:05 → ERHOLD 20:01 → 2ND 21:50
PROVIDERS: ADMIT Family Medicine; ATTEND Hospitalist
DX: K56.609 Unspecified intestinal obstruction, unspecified as to partial versus complete obstruction (principal); Z68.42 Body mass index [BMI] 45.0-49.9, adult; E87.0 Hyperosmolality and hypernatremia; E66.9 Obesity, unspecified; K59.00 Constipation, unspecified; E03.9 Hypothyroidism, unspecified; E78.5 Hyperlipidemia, unspecified; E11.9 Type 2 diabetes mellitus without complications; F32.9 Major depressive disorder, single episode, unspecified; I10 Essential (primary) hypertension; Z88.8 Allergy status to other drugs, medicaments and biological substances; Z88.1 Allergy status to other antibiotic agents; Z91.040 Latex allergy status; Z79.890 Hormone replacement therapy; Z79.84 Long term (current) use of oral hypoglycemic drugs; Z79.52 Long term (current) use of systemic steroids; Z79.899 Other long term (current) drug therapy; Z87.891 Personal history of nicotine dependence; Z20.822 Contact with and (suspected) exposure to COVID-19
CPT/HCPCS: 36415; 74018; 74019; 74177; 80048; 80053; 80076; 81003; 81015; 82378; 83036; 83690; 83735; 85025; 85652; 86038; 86140; 87086; 87088; 94010; 99285; J0360; J0744; J1200; J1650; J2270; J2405; J2543; J2920; J2930; J3480; J7030; J7799; Q9967; U0003

== ENCOUNTER 2020-07-27 12:47 | Inpatient (IN) | payer BC ==
[2020-07-27] MEDS ORDERED: ONDANSETRON 4 MG/2 ML VIAL ONE (13:36)
[2020-07-27] MEDS ORDERED: MORPHINE 4 MG/ML SYR ONE (13:36)
[2020-07-27] MEDS ORDERED: NA CHLORIDE 0.9% 500 ML ONE (13:37)
[2020-07-27 13:44] LABS: Absolute Lymphocytes (CBC) 1.3 K/uL (0.7-4.9); Basophils % 0.3 % (0-1.3); Lymphocytes % 6.6 % (15.3-44.8); MPV 8.1 fL (7.6-11.3); RBC Red Blood Cell Count 5.37 M/uL (3.86-4.86)
[2020-07-27 14:00] LABS: Albumin 3.5 g/dL (3.4-5.0); Bilirubin Direct 0.2 mg/dL (0-0.2); Bilirubin Total 0.7 mg/dL (0.2-1.0); Potassium 3.8 mmol/L (3.5-5.1); Protein, Total 7.8 g/dL (6.4-8.2)
--- NOTE | 2020-07-27 14:08 | RAD REPORT ---
EXAM DESCRIPTION: CTAbdomen Pelvis W Contrast - 07/27/2020 1:55 pm CLINICAL HISTORY: Abdominal pain. ABD PAIN COMPARISON: Abdomen Pelvis W Contrast dated 07/12/2020; Abdomen Pelvis W Contrast dated 06/10/2020 ; Abdomen Pelvis W Contrast dated 06/07/2020; CT ABD PELVIS W CONTRAST dated 02/13/2013 TECHNIQUE: Biphasic CT imaging of the abdomen and pelvis was performed with 100 ml non-ionic IV cont rast. All CT scans are performed using dose optimization technique as appropriate and may include automated exposure control or mA/KV adjustment according to patient size. FINDINGS: The lung bases are clear. The liver, spleen, pancreas, adrenal glands and kidneys are within normal limits. 17 mm superior righ t renal cyst. Multiple dilated small bowel loops are present in the left abdomen compatible with moderate to signif icant mechanical small-bowel obstruction. The most dilated small bowel loop measures 5.6 cm in transv erse dimension. There is an abrupt caliber change with tapering of the small bowel in the lower abdom en (image 64/94). Mild sigmoid diverticulosis coli without diverticulitis. Small umbilical hernia. No pneumoperitoneum. No free fluid or abscess. No evidence of significant lymphadenopathy. No suspicious bony findings. IMPRESSION: Significant small-bowel obstruction is present with very abrupt transition point in the lower midline abdomen as detailed. This may be indicate a significant adhesion or closed loop obstruc tion.
[2020-07-27] MEDS ORDERED: PIPER/TAZO/NS 3.375gm 3.375 GM/100 ML BAG ONE (14:50)
[2020-07-27] MEDS ORDERED: METRONIDAZOLE 500mg IVPB 500 MG/100 ML BAG IV ONE (14:51)
--- NOTE | 2020-07-27 15:43 | ER ---
Nurse's Notes [facility] Name: Kindra Novoa Age: 65 yrs Sex: Female : 1955 Arrival Date: 07/27/2020 Time: 12:48 Bed 7 Private MD: Diagnosis: Abdominal and pelvic pain;Small Bowel Obstruction Presentation: 07/27 13:03 Chief complaint: Patient states: abd pain since yesterday , also having vomiting, was iw here two weeks ago with bowel obstruction. Coronavirus screen: At this time, the client does not indicate any symptoms associated with coronavirus-19. Ebola Screen: Patient negative for fever greater than or equal to 101.5 degrees Fahrenheit, and additional compatible Ebola Virus Disease symptoms Patient denies exposure to infectious person. Patient denies travel to an Ebola-affected area in the 21 days before illness onset. No symptoms or risks identified at this time. Initial Sepsis Screen: Does the patient meet any 2 criteria? No. Patient's initial sepsis screen is negative. Does the patient have a suspected source of infection? No. Patient's initial sepsis screen is negative. Risk Assessment: Do you want to hurt yourself or someone else? Patient reports no desire to harm self or others. Onset of symptoms was July 26, 2020. 13:03 Method Of Arrival: Wheelchair iw 13:03 Acuity: KAROL 3 iw Triage Assessment: 13:08 General: Appears distressed, uncomfortable, obese, Behavior is cooperative, appropriate bp for age, agitated, anxious. Pain: Complains of pain in abdomen. EENT: No deficits noted. Neuro: No deficits noted. Cardiovascular: No deficits noted. Respiratory: No deficits noted. GI: Reports lower abdominal pain, nausea, vomiting. : No signs and/or symptoms were reported regarding the genitourinary system. Derm: No deficits noted. Musculoskeletal: No deficits noted. Historical: - Allergies: 13:07 BUSPIRONE; iw 13:07 Ciprofloxacin; iw 13:07 Flagyl; iw 13:07 Latex, Natural Rubber; iw - Home Meds: 13:07 bupropion HCl 150 mg oral Tb24 once daily [Active]; bupropion HCl 75 mg Oral tab iw nightly [Active]; cholecalciferol (vitamin D3) 5,000 unit oral cap daily [Active]; ferrous sulfate 325 mg (65 mg iron) Oral tab daily [Active]; levothyroxine 25 mcg tab 1 tab once daily [Active]; lisinopril-hydrochlorothiazide 10-12.5 mg Oral tab 1 tab once daily [Active]; metformin 500 mg Oral tr24 1 tab once daily [Active]; sertraline 100 mg Oral tab 1 tab nightly [Active]; metoprolol tartrate 50 mg Oral tab 1 tab 2 times per day [Active]; - PMHx: 13:07 Colitis; Depression; Hypertension; Hypothyroidism; iw - Immunization history:: Client reports having NOT received the Covid vaccine. - Social history:: Smoking status: Patient denies any tobacco usage or history of. Screenin:09 Abuse screen: Denies threats or abuse. Denies injuries from another. Nutritional bp screening: No deficits noted. Tuberculosis screening: No symptoms or risk factors identified. Fall Risk None identified. Assessment: 13:09 General: SEE TRIAGE NOTE. bp 13:45 Reassessment: Patient and/or family updated on plan of care and expected duration. Pain bp level reassessed. Patient is alert, oriented x 3, equal unlabored respirations, skin warm/dry/pink. PT TO CT. 15:39 Reassessment: Patient and/or family updated on plan of care and expected duration. Pain bp level reassessed. Patient is alert, oriented x 3, equal unlabored respirations, skin warm/dry/pink. 16:18 Reassessment: No changes from previously documented assessment. Patient and/or family bp updated on plan of care and expected duration. Pain level reassessed. Patient is alert, oriented x 3, equal unlabored respirations, skin warm/dry/pink. NGT PLACED, PT TOLERATED WELL. ADMIT INITIATED. 17:09 Reassessment: ADMIT COMPLETE, REPORT TO VILMA ALVARADO FOR RM 409. TRANSPORT ON HOLD PENDING bp COVID RESULTS. Vital Signs: 12:50 BP 161 / 90; Pulse 115; Resp 16; Pulse Ox 96% ; bp 13:00 BP 153 / 96; Pulse 115; Resp 16; Pulse Ox 96% ; bp 13:03 Height 5 ft. 1 in. (154.94 cm); Pain 10/10; iw 14:00 BP 117 / 83; Pulse 102; Resp 17; Pulse Ox 99% ; bp 15:00 BP 139 / 69; Pulse 75; Resp 16; Pulse Ox 93% ; bp 16:00 BP 118 / 71; Pulse 76; Resp 17; Pulse Ox 94% ; bp ED Course: 12:48 Patient arrived in ED. am2 13:04 Triage completed. iw 13:06 Danny Nam, RN is Primary Nurse. bp 13:07 Arm band placed on. iw 13:09 Patient has correct armband on for positive identification. Bed in low position. Call bp light in reach. Side rails up X2. Adult w/ patient. 13:13 Chad Xiong MD is Attending Physician. kdr 13:30 Inserted saline lock: 20 gauge in left antecubital area, using aseptic technique. Blood bp collected. 13:55 CT Abd/Pelvis - IV Contrast Only In Process Unspecified. EDMS 15:40 Juan Ramon Wahl DO is Hospitalizing Provider. kdr 16:15 NGT: inserted 14 Fr. via right nare. verified placement of air over stomach, verified bp return of gastric contents, to intermittent suction. Returned bile. Patient tolerated well. 17:11 No provider procedures requiring assistance completed. Patient admitted, IV remains in bp place. Administered Medications: 13:30 Drug: NS 0.9% 500 ml Route: IV; Rate: bolus; Site: left antecubital; bp 17:13 Follow up: IV Status: Completed infusion; IV Intake: 500ml bp 13:30 Drug: morphine 4 mg Route: IVP; Site: left antecubital; bp 14:11 Follow up: Response: Pain is decreased bp 13:30 Drug: Zofran (Ondansetron) 4 mg Route: IVP; Site: left antecubital; bp 14:11 Follow up: Response: No adverse reaction bp 14:30 Drug: Zosyn (piperacillin-tazobactam) 3.375 grams Route: IVPB; Infused Over: 60 mins; bp Site: left antecubital; 17:12 Follow up: IV Status: Completed infusion; IV Intake: 100ml bp 15:38 Drug: Flagyl (metroNIDAZOLE) 500 mg Volume: 100 ml; Route: IVPB; Rate: 200 ml/hr; bp Infused Over: 30 mins; Site: left antecubital; 17:12 Follow up: IV Status: Completed infusion; IV Intake: 100ml bp Intake: 17:12 IV: 100ml; Total: 100ml. bp 17:12 IV: 100ml; Total: 200ml. bp 17:13 IV: 500ml; Total: 700ml. bp Outcome: 15:42 Decision to Hospitalize by Provider. kdr 17:10 Admitted to Med/surg accompanied by sebastien, room 409, with chart, Report called to bp VILMA ALVARADO 17:10 Condition: stable 17:10 Instructed on the need for admit. 18:05 Patient left the ED. bp Signatures: Dispatcher [employer] EDMS Chad Xiong MD MD kdr Adriane Moran, RN RN Maida Mead Danny Looney RN RN bp Corrections: (The following items were deleted from the chart) 16:20 16:18 Reassessment: No changes from previously documented assessment. Patient and/or bp family updated on plan of care and expected duration. Pain level reassessed. Patient is alert, oriented x 3, equal unlabored respirations, skin warm/dry/pink. NGT PLACED, PT TOLERATED WELL. DISPO PENDING bp
--- NOTE | 2020-07-27 15:43 | EDPHYS ---
Physician Documentation [facility] Name: Kindra Novoa Age: 65 yrs Sex: Female : 1955 Arrival Date: 07/27/2020 Time: 12:48 Bed 7 Private MD: ED Physician Chad Xiong HPI: 07/27 18:06 This 65 yrs old Female presents to ER via Wheelchair with complaints of kdr Abdominal Pain. 18:06 The patient presents with abdominal pain that is diffuse. Onset: The symptoms/episode kdr began/occurred yesterday. The symptoms do not radiate. Associated signs and symptoms: Pertinent positives: nausea and vomiting, Pertinent negatives: chest pain, constipation, diarrhea, dysuria, fever, headache, hematuria, palpitations, shortness of breath, vaginal discharge, vomiting blood. The symptoms are described as achy, constant, crampy, steady. Modifying factors: The symptoms are alleviated by nothing, the symptoms are aggravated by movement, pressure, touching the area. Severity of pain: At its worst the pain was mild moderate just prior to arrival, in the emergency department the pain is unchanged. The patient has experienced similar episodes in the past, a few times. The patient has been recently seen by a physician: The patient has been recently been admitted at [facility], was discharged last week. Historical: - Allergies: 13:07 BUSPIRONE; iw 13:07 Ciprofloxacin; iw 13:07 Flagyl; iw 13:07 Latex, Natural Rubber; iw - Home Meds: 13:07 bupropion HCl 150 mg oral Tb24 once daily [Active]; bupropion HCl 75 mg Oral tab iw nightly [Active]; cholecalciferol (vitamin D3) 5,000 unit oral cap daily [Active]; ferrous sulfate 325 mg (65 mg iron) Oral tab daily [Active]; levothyroxine 25 mcg tab 1 tab once daily [Active]; lisinopril-hydrochlorothiazide 10-12.5 mg Oral tab 1 tab once daily [Active]; metformin 500 mg Oral tr24 1 tab once daily [Active]; sertraline 100 mg Oral tab 1 tab nightly [Active]; metoprolol tartrate 50 mg Oral tab 1 tab 2 times per day [Active]; - PMHx: 13:07 Colitis; Depression; Hypertension; Hypothyroidism; iw - Immunization history:: Client reports having NOT received the Covid vaccine. - Social history:: Smoking status: Patient denies any tobacco usage or history of. ROS: 18:06 Constitutional: Negative for fever, chills, and weight loss, Eyes: Negative for injury, kdr pain, redness, and discharge, ENT: Negative for injury, pain, and discharge, Neck: Negative for injury, pain, and swelling, Cardiovascular: Negative for chest pain, palpitations, and edema, Respiratory: Negative for shortness of breath, cough, wheezing, and pleuritic chest pain, Back: Negative for injury and pain, : Negative for injury, bleeding, discharge, and swelling, MS/Extremity: Negative for injury and deformity, Skin: Negative for injury, rash, and discoloration, Neuro: Negative for headache, weakness, numbness, tingling, and seizure activity. Psych: Negative for depression, anxiety, suicide ideation, homicidal ideation, and hallucinations, Allergy/Immunology: Negative for hives, rash, and allergies, Endocrine: Negative for neck swelling, polydipsia, polyuria, polyphagia, and marked weight changes, Hematologic/Lymphatic: Negative for swollen nodes, abnormal bleeding, and unusual bruising. 18:06 Abdomen/GI: Positive for abdominal pain, nausea and vomiting, Negative for diarrhea, constipation, abdominal cramps, black/tarry stool, rectal pain, rectal bleeding. Exam: 18:06 Constitutional: This is a well developed, well nourished patient who is awake, alert, kdr and in no acute distress. Head/Face: Normocephalic, atraumatic. Eyes: Pupils equal round and reactive to light, extra-ocular motions intact. Lids and lashes normal. Conjunctiva and sclera are non-icteric and not injected. Cornea within normal limits. Periorbital areas with no swelling, redness, or edema. Neck: Trachea midline, no thyromegaly or masses palpated, and no cervical lymphadenopathy. Supple, full range of motion without nuchal rigidity, or vertebral point tenderness. No Meningismus. Chest/axilla: Normal chest wall appearance and motion. Nontender with no deformity. No lesions are appreciated. Cardiovascular: Regular rate and rhythm with a normal S1 and S2. No gallops, murmurs, or rubs. Normal PMI, no JVD. No pulse deficits. Respiratory: Lungs have equal breath sounds bilaterally, clear to auscultation and percussion. No rales, rhonchi or wheezes noted. No increased work of breathing, no retractions or nasal flaring. Back: No spinal tenderness. No costovertebral tenderness. Full range of motion. Skin: Warm, dry with normal turgor. Normal color with no rashes, no lesions, and no evidence of cellulitis. MS/ Extremity: Pulses equal, no cyanosis. Neurovascular intact. Full, normal range of motion. Neuro: Awake and alert, GCS 15, oriented to person, place, time, and situation. Cranial nerves II-XII grossly intact. Motor strength 5/5 in all extremities. Sensory grossly intact. Cerebellar exam normal. Normal gait. Psych: Awake, alert, with orientation to person, place and time. Behavior, mood, and affect are within normal limits. 18:06 Abdomen/GI: Inspection: abdomen appears normal, Bowel sounds: active, diminished, in all quadrants, Palpation: soft, mild abdominal tenderness, in all quadrants. Vital Signs: 12:50 BP 161 / 90; Pulse 115; Resp 16; Pulse Ox 96% ; bp 13:00 BP 153 / 96; Pulse 115; Resp 16; Pulse Ox 96% ; bp 13:03 Height 5 ft. 1 in. (154.94 cm); Pain 10/10; iw 14:00 BP 117 / 83; Pulse 102; Resp 17; Pulse Ox 99% ; bp 15:00 BP 139 / 69; Pulse 75; Resp 16; Pulse Ox 93% ; bp 16:00 BP 118 / 71; Pulse 76; Resp 17; Pulse Ox 94% ; bp MDM: 15:42 Patient medically screened. kdr 18:06 Data reviewed: vital signs, nurses notes, lab test result(s), radiologic studies. kdr Counseling: I had a detailed discussion with the patient and/or guardian regarding: the historical points, exam findings, and any diagnostic results supporting the discharge/admit diagnosis, lab results, radiology results, the need for further work-up and treatment in the hospital. Physician consultation:. 18:10 Physician consultation: Shoaib Bahena MD and will see patient in inpatient room, If Dr. sánchez Soriano not available. 07/27 13:09 Order name: Basic Metabolic Panel; Complete Time: 14:18 iw 06/11 13:09 Order name: CBC with Diff iw 07/27 13:09 Order name: Hepatic Function; Complete Time: 14:18 iw 07/27 13:09 Order name: Lipase; Complete Time: 14:18 iw 07/27 13:51 Order name: CREATININE WHOLE BLOOD; Complete Time: 13:56 EDCT 07/27 15:44 Order name: COVID-19 : Document "Date of Symptom Onset" if Symptomatic. kdr 07/27 13:24 Order name: CT Abd/Pelvis - IV Contrast Only; Complete Time: 14:18 kdr 07/27 16:11 Order name: CBC Smear Scan EDCT 07/27 17:21 Order name: SARS-COV-2 RT PCR EDCT 07/27 13:09 Order name: IV Saline Lock; Complete Time: 13:44 iw 07/27 13:09 Order name: Labs collected and sent; Complete Time: 13:43 iw 07/27 15:40 Order name: NG Tube; Complete Time: 16:18 kdr Administered Medications: 13:30 Drug: NS 0.9% 500 ml Route: IV; Rate: bolus; Site: left antecubital; bp 17:13 Follow up: IV Status: Completed infusion; IV Intake: 500ml bp 13:30 Drug: morphine 4 mg Route: IVP; Site: left antecubital; bp 14:11 Follow up: Response: Pain is decreased bp 13:30 Drug: Zofran (Ondansetron) 4 mg Route: IVP; Site: left antecubital; bp 14:11 Follow up: Response: No adverse reaction bp 14:30 Drug: Zosyn (piperacillin-tazobactam) 3.375 grams Route: IVPB; Infused Over: 60 mins; bp Site: left antecubital; 17:12 Follow up: IV Status: Completed infusion; IV Intake: 100ml bp 15:38 Drug: Flagyl (metroNIDAZOLE) 500 mg Volume: 100 ml; Route: IVPB; Rate: 200 ml/hr; bp Infused Over: 30 mins; Site: left antecubital; 17:12 Follow up: IV Status: Completed infusion; IV Intake: 100ml bp Disposition: 07/27/20 15:42 Hospitalization ordered by Juan Ramon Wahl for Inpatient Admission. Preliminary diagnosis are Abdominal and pelvic pain, Small Bowel Obstruction. - Bed requested for Telemetry/MedSurg (Inpatient). - Status is Inpatient Admission. bp - Condition is Fair. - Problem is an acute exacerbation. - Symptoms have improved. Signatures: Dispatcher [employer] EDMS Chad Xiong MD MD [facility] Adriane Moran, CHRISTIANO ALVARADO Danny Nam RN RN bp Botello, Elizabeth eb Corrections: (The following items were deleted from the chart) 16:29 15:42 Hospitalization Ordered by Juan Ramon Wahl DO for Inpatient Admission. Preliminary eb diagnosis is Abdominal and pelvic pain; Small Bowel Obstruction. Bed requested for Telemetry/MedSurg (Inpatient). Status is Inpatient Admission. Condition is Fair. Problem is an acute exacerbation. Symptoms have improved. kdr 18:05 16:29 07/27/2020 15:42 Hospitalization Ordered by Juan Ramon Wahl DO for Inpatient bp Admission. Preliminary diagnosis is Abdominal and pelvic pain; Small Bowel Obstruction. Bed requested for Telemetry/MedSurg (Inpatient). Status is Inpatient Admission. Condition is Fair. Problem is an acute exacerbation. Symptoms have improved. eb
--- NOTE | 2020-07-27 16:08 | P.HP ---
Certification for Inpatient Patient admitted to: Inpatient With expected LOS: >2 Midnights Patient will require the following post-hospital care: None Practitioner: I am a practitioner with admitting privileges, knowledge of patient current condition, hospital course, and medical plan of care. Services: Services provided to patient in accordance with Admission requirements found in Title 42 Section 412.3 of the Code of Federal Regulations Patient History Date of Service: 07/27/20 Primary Care Provider: Fox Vasquez NP; Surgery-Dr. Soriano Reason for admission: Recurrent abdominal pain, nausea, vomiting History of Present Illness: 65-year-old female with history of HTN, Prediabetesm hypothyroidism, depression, and Crohn's. Patient presents with recurrent nausea, vomiting and abdominal pain. Patient has been hospitalized multiple times over the last 3 months for recurrent small-bowel obstruction. Most recently patient hospitalized last month for similar issues thought to be related to Crohn's. Patient has responded well to antibiotics and steroids. There was a plan in place for her to follow up with surgery-Dr. Soriano for a colonoscopy. She had just finished her oral antibiotics and steroids when she start to have increasing abdominal pain. Pain mainly to the periumbilical region. Pain was 10/10 in intensity. He was associated with some increased nausea and vomiting. She was not able to keep anything down. She reports some small bowel movement. Some mild fever and poor intake. She came to the ER for further evaluation. In the ER patient was seen. Vital signs stable. White count elevated at 18.9, hemoglobin 14. Platelet count 488. Sodium 139, potassium 3.8. BUN 18, creatinine 0.89 with a GFR 56. Glucose 129. AST 40, ALT 178. CT scan revealed significant small-bowel obstruction present with very abrupt transition point in the lower midline abdomen. This may indicate significant adhesion or closed- loop obstruction. Patient admitted for further treatment. ER discussed case with both Drs. Soriano and Josef. Dr. Soriano is out of town. Dr. Soriano spoke to Dr. Bahena who will cover. Allergies ciprofloxacin Allergy (Verified 07/12/20 22:34) Itching/Hives/Rash latex [Latex] Allergy (Verified 05/12/11 07:41) Itching/Hives/Rash Latex, Natural Rubber Allergy (Verified 06/07/20 05:52) Unknown metronidazole Allergy (Verified 07/12/20 22:34) Itching/Hives/Rash buspirone Adverse Reaction (Verified 07/12/20 22:35) Nausea/Vomiting Home medications list reviewed: Yes Home Medications: Bupropion HCl [Wellbutrin] 75 mg PO BEDTIME 07/13/20 Bupropion HCl [Wellbutrin] 150 mg PO DAILY 07/13/20 Cholecalciferol (Vitamin D3) [Vitamin D 5,000 IU Cap*] 5,000 units PO DAILY 07/13/20 Ferrous Sulfate 325 mg PO BID 07/13/20 Levothyroxine Sodium [Levothyroxine] 25 mcg PO DAILY 07/13/20 Lisinopril/Hydrochlorothiazide [Lisinopril-Hctz 10-12.5 mg Tab] 1 each PO DAILY 07/13/20 Metformin HCl [Glucophage Xr] 500 mg PO DAILY AT SUPPER 07/13/20 Metoprolol Tartrate 50 mg PO BID 07/13/20 Naltrexone [Naltrexone Base Monohydrate] 50 mg PO DAILY 07/13/20 Sertraline [Zoloft*] 50 mg PO DAILY 07/13/20 Sertraline [Zoloft*] 100 mg PO DAILY 07/13/20 Cefdinir [Omnicef] 300 mg PO BID #14 capsule 07/16/20 Mesalamine [Asacol Hd] 800 mg PO DAILY #30 tablet. 07/16/20 predniSONE [Deltasone] 20 mg PO DAILY #5 tab 07/16/20 - Past Medical/Surgical History Diabetic: No -: HTN -: Prediabetes -: Hypothyroidism -: Depression -: Recurrent SBO -: GERD -: Psychosocial/ Personal History: Patient is . - Family History Father -: Cancer Mother -: Heart disease - Social History Smoking Status: Never smoker Alcohol use: No CD- Drugs: No Caffeine use: Yes Place of Residence: Home Review of Systems General: Fever, Weakness, Malaise, As per HPI Eyes: Unremarkable ENT: Unremarkable Respiratory: Unremarkable Cardiovascular: Unremarkable Gastrointestinal: Nausea, Abdominal Pain, As per HPI Genitourinary: Unremarkable Musculoskeletal: Unremarkable Integumentary: Unremarkable Neurological: Unremarkable Lymphatics: Unremarkable Physical Examination - Physical Exam General: Alert, In no apparent distress, Oriented x3, Cooperative HEENT: Atraumatic, Normocephalic, Other (dry mucous membranes) Respiratory: Clear to auscultation bilaterally, Normal air movement Cardiovascular: Normal pulses, Regular rate/rhythm Gastrointestinal: Hypoactive, Non-distended, Tenderness (pain to the upper quadrant and periumbilical region) Musculoskeletal: No erythema, No tenderness, No warmth Integumentary: No tenderness/swelling, No erythema, No warmth, No cyanosis Neurological: Normal speech, Normal strength at 5/5 x4 extr, Normal tone, Normal affect - Studies Laboratory Data (last 24 hrs) 07/27/20 13:30: WBC 18.90 H D, Hgb 14.4, Hct 45.0 D, Plt Count 488 H 07/27/20 13:30: Sodium 139, Potassium 3.8, BUN 18, Creatinine 0.99, Glucose 129 H, Total Bilirubin 0.7, AST 40 H, ALT 101 H, Alkaline Phosphatase 178 H, Lipase 113 Assessment and Plan - Plan Impression: Abdominal pain, nausea and vomiting secondary to recurrent small-bowel obstruction complicated with history of Crohn's Elevated liver function with history of fatty liver Hypertension Hypothyroidism Depression Prediabetes Plan: Abdominal pain, nausea and vomiting secondary to recurrent small-bowel obstruction complicated with history of Crohn's: Patient will be admitted for further evaluation and treatment. Will keep the patient NPO. Will start IV Zosyn. Will also start IV Solu-Medrol. NG tube will be placed. Recheck abdominal x-ray tomorrow. Case discussed at length with Dr. Soriano-surgery. He has spoken to Dr. Bahena who has been consulted to help cover until Dr. Soriano returns back on Thursday to see the patient. Dr. Soriano planned for colonoscopy as an outpatient. Will monitor serial exams. Anticipate improvement on IV fluids, bowel rest, and IV antibiotic therapy. Will provide medication for pain. DVT prophylaxis-Lovenox in place. Anticipate improvement over the next 3-5 days. Elevated liver function likely related to above: Will monitor liver function test. Hypertension: Will provide medication for blood pressure control. Hypothyroidism: Will continue with IV medication Depression: Will provide medication for agitation. Once the patient is able to take oral intake then will restart home medication. Prediabetes: Will monitor blood sugars. DVT prophylaxis: Lovenox Code status: Patient is full code Advanced care planning-30 min: Patient desires to go home at discharge. Discharge Plan: Home Plan to discharge in: Greater than 2 days - Advance Directives Does patient have a Living Will: No Does patient have a Durable POA for Healthcare: No - Code Status/Comfort Care Code Status Assessed: Yes (Patient is full code) Time Spent Managing Pts Care (In Minutes): 55
[2020-07-27 16:10] LABS: Blood Morphology Comment NOT SEEN (NOT SEEN); Platelet Estimate INCR; White Blood Cell Scan OK (OK)
[2020-07-27] MEDS ORDERED: MORPHINE 2 MG/ML SYR IV PRN (18:06)
[2020-07-27] MEDS ORDERED: SODIUM CHLORIDE 0.9% 10ML INJ IV PRN (18:06)
[2020-07-27] MEDS ORDERED: LORazepam 2 MG/ML VIAL IV PRN (18:06)
[2020-07-27] MEDS ORDERED: ONDANSETRON 4 MG/2 ML VIAL IV PRN (18:06)
[2020-07-27] MEDS ORDERED: ACETAMINOPHEN 650MG/RECT SUPP PR PRN (18:06)
[2020-07-27 18:30] VITALS: BMI 46.5
[2020-07-27] MEDS ORDERED: NA CHLORIDE 0.9% 1,000 ML IV ONE (19:00)
[2020-07-27] MEDS ORDERED: PIPER/TAZO/NS 3.375gm 3.375 GM/100 ML BAG IVPB SCH (19:00)
[2020-07-27] MEDS: D5 0.9 NS 1,000 ML IV SCH (19:57)
[2020-07-27] MEDS: METHYLPREDNISOLONE 40 MG INJ IV SCH (19:59)
[2020-07-27] MEDS: ENOXAPARIN 40 MG/0.4 ML SQ SCH (20:00)
[2020-07-27] MEDS ORDERED: KCL 20 MEQ/100 mL IVPB 20 MEQ/100 ML BAG IV SCH (21:00)
[2020-07-27 21:32] LABS: Urine Appearance CLEAR (Clear); Urine Blood NEGATIVE (Negative); Urine Color DK YELLOW (Yellow); Urine Glucose NEGATIVE (Negative); Urine Protein TRACE (Negative); Urine Specific Gravity >=1.030 (1.005-1.030)
[2020-07-27 21:46] LABS: Urine Bilirubin NEGATIVE (Negative); Urine Microscopic Reflex ORDER UMIC
[2020-07-27 22:07] LABS: Calcium Oxalate Crystals- Ur FEW (NONE SEEN); Urine Bacteria <20 /HPF (<20); Urine Mucus 1+ /HPF (NONE SEEN); Urine RBC <5 /HPF (NONE SEEN)
[2020-07-28] MEDS: METHYLPREDNISOLONE 40 MG INJ IV SCH ×3 (01:07→16:01)
[2020-07-28] MEDS: PIPER/TAZO/NS 3.375gm 3.375 GM/100 ML BAG IVPB SCH ×3 (01:08→16:01)
[2020-07-28] MEDS: LEVOTHYROXINE SODIUM 100 MCG VIAL IV SCH (05:15)
--- NOTE | 2020-07-28 06:00 | P.PN ---
Subjective Date of Service: 07/28/20 Primary Care Provider: Fox Vasquez NP; Surgery-Dr. Soriano Chief Complaint: Recurrent abdominal pain, nausea, vomiting Subjective: Other (Pain is better controlled. No more nausea or vomiting. Currently NPO with NG tube. No gas or passge of stool.) Physical Examination - Vital Signs Temperature: 97.4 F Blood Pressure: 131/64 Pulse: 63 Respirations: 16 Pulse Ox (%): 95 - Studies Laboratory Data (last 24 hrs) 07/27/20 13:30: WBC 18.90 H D, Hgb 14.4, Hct 45.0 D, Plt Count 488 H 07/27/20 13:30: Sodium 139, Potassium 3.8, BUN 18, Creatinine 0.99, Glucose 129 H, Total Bilirubin 0.7, AST 40 H, ALT 101 H, Alkaline Phosphatase 178 H, Lipase 113 Assessment & Plan Discharge Plan: Home Plan to discharge in: Greater than 2 days Physician Review Additional Text: CT Scan: COMPARISON: Abdomen Pelvis W Contrast dated 07/12/2020; Abdomen Pelvis W Contrast dated 06/10/2020; Abdomen Pelvis W Contrast dated 06/07/2020; CT ABD PELVIS W CONTRAST dated 02/13/2013 TECHNIQUE: Biphasic CT imaging of the abdomen and pelvis was performed with 100 ml non-ionic IV contrast. All CT scans are performed using dose optimization technique as appropriate and may include automated exposure control or mA/KV adjustment according to patient size. FINDINGS: The lung bases are clear. The liver, spleen, pancreas, adrenal glands and kidneys are within normal limits. 17 mm superior right renal cyst. Multiple dilated small bowel loops are present in the left abdomen compatible with moderate to significant mechanical small-bowel obstruction. The most dilated small bowel loop measures 5.6 cm in transverse dimension. There is an abrupt caliber change with tapering of the small bowel in the lower abdomen (image 64/94). Mild sigmoid diverticulosis coli without diverticulitis. Small umbilical hernia. No pneumoperitoneum. No free fluid or abscess. No evidence of significant lymphadenopathy. No suspicious bony findings. IMPRESSION: Significant small-bowel obstruction is present with very abrupt transition point in the lower midline abdomen as detailed. This may be indicate a significant adhesion or closed loop obstruction. Follow up KUB: COMPARISON: Abdomen 1 View (KUB) dated 07/16/2020; Abdomen Pelvis W Contrast dated 07/27/2020 FINDINGS: CT imaging showed multiple dilated fluid-filled small bowel loops. Current pattern is consistent with the prior day finding. There does appear to be some diminished prominence of the small bowel. No free air or pneumatosis have developed. Contrast is present in the urinary bladder from earlier CT study. No suspicious calcifications. Stomach is decompressed around an NG tube. No significant bony findings IMPRESSION: Dilated fluid-filled small bowel pattern has improved but not fully resolved. Stomach is fully decompressed around the NG tube. Impression: Abdominal pain, nausea and vomiting secondary to recurrent small-bowel obstruction complicated with history of Crohn's Elevated liver function with history of fatty liver Hypertension Hypothyroidism Depression Prediabetes Plan: Abdominal pain, nausea and vomiting secondary to recurrent small-bowel obstruction complicated with history of Crohn's: Patient doing slightly better. Continue n.p.o. status. NG tube remains in place. Continue IV antibiotic therapyZosyn, continue IV Solu-Medrol, continue IV fluids. KUB shows improvement but not completely resolved. Encourage incentive spirometer. Encourage ambulation. Case discussed at length with Dr. Soriano-surgery yesterday. He has spoken to Dr. Bahena who has been consulted to help cover until Dr. Soriano returns back on Thursday to see the patient. Dr. Soriano planned for colonoscopy as an outpatient. Will continue to monitor serial exams. Anticipate improvement on IV fluids, bowel rest, and IV antibiotic therapy. Will discuss with surgery today. Will provide medication for pain. DVT prophylaxis-Lovenox in place. Anticipate improvement over the next 3-5 days. Elevated liver function likely related to above: Will monitor liver function test. Hypertension: Will provide medication for blood pressure control. Hypothyroidism: Will continue with IV medication Depression: Will provide medication for agitation. Once the patient is able to take oral intake then will restart home medication. Prediabetes: Will monitor blood sugars. DVT prophylaxis: Lovenox Code status: Patient is full code Advanced care planning-30 min: Patient desires to go home at discharge. Time Spent Managing Pts Care (In Minutes): 55
[2020-07-28 06:12] LABS: Absolute Lymphocytes (CBC) 0.8 K/uL (0.7-4.9); Basophils % 0.5 % (0-1.3); Hematocrit 37.9 % (36.0-45.0); Lymphocytes % 10.5 % (15.3-44.8); MPV 7.9 fL (7.6-11.3)
[2020-07-28 06:26] LABS: Magnesium 2.2 mg/dL (1.8-2.4); Potassium 3.9 mmol/L (3.5-5.1)
[2020-07-28] MEDS: ENOXAPARIN 40 MG/0.4 ML SQ SCH (07:49)
[2020-07-28] MEDS: PANTOPRAZOLE 40 MG INJ IVP SCH (07:49)
[2020-07-28] MEDS: THIAMINE 200 MG/2 ML INJ IVP SCH (07:49)
[2020-07-28] MEDS: D5 0.9 NS 1,000 ML IV SCH ×2 (07:51→15:14)
[2020-07-28] MEDS ORDERED: KCL 20 MEQ/100 mL IVPB 20 MEQ/100 ML BAG IV SCH (08:00)
--- NOTE | 2020-07-28 08:07 | RAD REPORT ---
EXAM DESCRIPTION: RAD - Abdomen 1 View (KUB) - 07/28/2020 6:19 am CLINICAL HISTORY: follow up recurrent SBO COMPARISON: Abdomen 1 View (KUB) dated 07/16/2020; Abdomen Pelvis W Contrast dated 07/27/2020 FINDINGS: CT imaging showed multiple dilated fluid-filled small bowel loops. Current pattern is cons istent with the prior day finding. There does appear to be some diminished prominence of the small delicia wel. No free air or pneumatosis have developed. Contrast is present in the urinary bladder from [facility] CT study. No suspicious calcifications. Stomach is decompressed around an NG tube. No significant bony findings IMPRESSION: Dilated fluid-filled small bowel pattern has improved but not fully resolved. Stomach is fully decompressed around the NG tube.
[2020-07-28] MEDS ORDERED: FOLIC ACID 5 MG/ML VIAL IVP SCH (09:00)
[2020-07-28] MEDS: FOLIC ACID 1 MG in NA CHLORIDE 0.9% 50 ML IV SCH (09:00)
--- NOTE | 2020-07-28 11:09 | CON ---
Date of Consultation: 07/27/2020 Reason For Consultation: Small bowel obstruction. History Of Present Illness: The patient is a 65-year-old female who comes in with recurrent abdomina l pain for the third time in the last couple of months. She was seen by Dr. Soriano and he was plann ing on doing the colonoscopy as she has a history of Crohn disease, however, she had just finished he r oral antibiotics and steroids and then she started having increasing abdominal pain in the periumbi lical region. There was some nausea and vomiting. She was not able to keep anything down. She did have a small bowel movement yesterday and passed gas, but has not today. She had some mild fever and she came to the emergency room. She is today awake and alert. No pain. No nausea or vomiting. No sore throat, runny nose, cough, headaches, or dizziness. Please note, Dr. Soriano did contact me an d he helped with the history of this patient. Review of Systems: Otherwise unremarkable. Past Medical History: Significant for Crohn disease which was reportedly diagnosed by Dr. Milton in 2011, hypertension, prediabetes, hypothyroidism, depression, GERD. Past Surgical History: . Allergies: CIPRO, LATEX, METRONIDAZOLE, BUSPIRONE. Habits: The patient does not smoke or drink alcohol. Family History: Significant for unknown type of cancer in the father and mother with heart disease. Physical Examination: Vital Signs: Stable. She is afebrile. General: She is awake, alert, and oriented x3. Head and Neck: Cranial nerves 2 through 12 are grossly within normal limits. No neck masses. No JV D. Throat clear. Neck is supple. Chest: Clear. Heart: S1 and S2. Abdomen: Soft, nondistended. Positive bowel sounds, somewhat hypoactive, and nondistended. No tend erness. No rebound, rigidity, or guarding. Extremities: Adequately perfused. Nontender. Neuro: Nonfocal. Laboratory Data: Showed a white count of 18.9 yesterday, however, today it is normal and there is a slight left shift. Chemistry reviewed, essentially unremarkable. Urinalysis unremarkable and COVID test negative. CT of the abdomen and pelvis shows significant small bowel obstruction present with v kathrine abrupt transition point in the lower midline abdomen as detailed, may indicate a significant adhe belkys or closed loop obstruction. The patient had an x-ray this morning which showed dilated fluid fi lled small bowel pattern has improved, but not fully resolved. Stomach is fully decompressed around the NG tube. Assessment: Small bowel obstruction in a patient with a history of Crohn disease. Recommendations: Continue steroids and antibiotics as ordered, n.p.o. NG tube today until the x-ray looks a little bit better and she starts having more bowel function. Medical management right now fo r the Crohn disease as this may be an exacerbation and then GI followup for further management. Ther e is no need for any acute surgical intervention at this time and Dr. Soriano will take over care of the patient on Thursday when he returns. We will follow this patient through the weekend. JOHN/ALIREZA Voice ID: [id number] Report ID: [id number]
[2020-07-29] MEDS: METHYLPREDNISOLONE 40 MG INJ IV SCH ×3 (00:30→16:58)
[2020-07-29] MEDS: PIPER/TAZO/NS 3.375gm 3.375 GM/100 ML BAG IVPB SCH ×3 (00:30→16:58)
[2020-07-29] MEDS: D5 0.9 NS 1,000 ML IV SCH (00:32)
--- NOTE | 2020-07-29 06:08 | P.PN ---
Subjective Date of Service: 07/29/20 Primary Care Provider: Fox Vasquez NP; Surgery-Dr. Soriano Chief Complaint: Recurrent abdominal pain, nausea, vomiting Subjective: Other (Doing well. No nausea or vomiting. No pain. No passage of gas or stool.) Physical Examination - Vital Signs Temperature: 97.0 F Blood Pressure: 139/66 Pulse: 69 Respirations: 16 Pulse Ox (%): 96 Assessment & Plan Discharge Plan: Home Plan to discharge in: Greater than 2 days Physician Review Additional Text: CT Scan: COMPARISON: Abdomen Pelvis W Contrast dated 07/12/2020; Abdomen Pelvis W Contrast dated 06/10/2020; Abdomen Pelvis W Contrast dated 06/07/2020; CT ABD PELVIS W CONTRAST dated 02/13/2013 TECHNIQUE: Biphasic CT imaging of the abdomen and pelvis was performed with 100 ml non-ionic IV contrast. All CT scans are performed using dose optimization technique as appropriate and may include automated exposure control or mA/KV adjustment according to patient size. FINDINGS: The lung bases are clear. The liver, spleen, pancreas, adrenal glands and kidneys are within normal limits. 17 mm superior right renal cyst. Multiple dilated small bowel loops are present in the left abdomen compatible with moderate to significant mechanical small-bowel obstruction. The most dilated small bowel loop measures 5.6 cm in transverse dimension. There is an abrupt caliber change with tapering of the small bowel in the lower abdomen (image 64/94). Mild sigmoid diverticulosis coli without diverticulitis. Small umbilical hernia. No pneumoperitoneum. No free fluid or abscess. No evidence of significant lymphadenopathy. No suspicious bony findings. IMPRESSION: Significant small-bowel obstruction is present with very abrupt transition point in the lower midline abdomen as detailed. This may be indicate a significant adhesion or closed loop obstruction. Follow up AB cxr: COMPARISON: Abdomen W Erect dated 07/13/2020; Abdomen 1 View (KUB) dated 07/28/2020 FINDINGS: Enteric tube coils in the stomach. Mildly prominent small bowel loop in the left abdomen appear unchanged since prior study. No pneumothorax seen. Impression: Abdominal pain, nausea and vomiting secondary to recurrent small-bowel obstruction complicated with history of Crohn's Elevated liver function with history of fatty liver Hypertension Hypothyroidism Depression Prediabetes Plan: Abdominal pain, nausea and vomiting secondary to recurrent small-bowel obstruction complicated with history of Crohn's: Patient remains stable. Still no passage of gas her stool. Repeat x-ray shows no significant change since yesterday. Continue n.p.o. status. NG tube remains in place. Continue IV antibiotic therapyZosyn, continue IV Solu-Medrol, continue IV fluids. Encourage incentive spirometer. Encourage ambulation. Dr. Bahena who has been consulted to help cover until Dr. Soriano returns back on Thursday to see the pat ient. Spoke with Dr. Bahena yesterday. Will discuss further with him today. Will also try to reach GI-Dr. Cesar who has seen the patient in the past for further recommendation. Will continue to monitor serial exams. Anticipate improvement on IV fluids, bowel rest, and IV antibiotic therapy. Will provide medication for pain. DVT prophylaxis-Lovenox in place. Anticipate improvement over the next 3-[address] Soriano to return tomorrow. I will turn the service over to the hospitalist team tomorrow. I will go plan of care with him. Elevated liver function likely related to above: Liver function test back to baseline. Hypertension: Will provide medication for blood pressure control. Hypothyroidism: Will continue with IV medication Depression: Will provide medication for agitation. Once the patient is able to take oral intake then will restart home medication. Prediabetes: Will monitor blood sugars. DVT prophylaxis: Lovenox Code status: Patient is full code Advanced care planning-30 min: Patient desires to go home at discharge. Time Spent Managing Pts Care (In Minutes): 55
[2020-07-29] MEDS: LEVOTHYROXINE SODIUM 100 MCG VIAL IV SCH (06:22)
[2020-07-29 06:23] LABS: Absolute Lymphocytes (CBC) 0.9 K/uL (0.7-4.9); Basophils % 0.2 % (0-1.3); Hematocrit 36.5 % (36.0-45.0); Lymphocytes % 12.7 % (15.3-44.8); MPV 8.1 fL (7.6-11.3)
[2020-07-29 06:42] LABS: Albumin 2.6 g/dL (3.4-5.0); Bilirubin Total 0.2 mg/dL (0.2-1.0); Magnesium 2.3 mg/dL (1.8-2.4); Potassium 4.1 mmol/L (3.5-5.1); Protein, Total 6.2 g/dL (6.4-8.2)
[2020-07-29] MEDS: D5 0.45 NS 1,000 ML IV SCH ×2 (08:06→17:00)
[2020-07-29] MEDS: ENOXAPARIN 40 MG/0.4 ML SQ SCH (08:07)
[2020-07-29] MEDS: PANTOPRAZOLE 40 MG INJ IVP SCH (08:08)
[2020-07-29] MEDS: THIAMINE 200 MG/2 ML INJ IVP SCH (08:10)
[2020-07-29] MEDS: FOLIC ACID 1 MG in NA CHLORIDE 0.9% 50 ML IV SCH (09:32)
--- NOTE | 2020-07-29 10:44 | RAD REPORT ---
EXAM DESCRIPTION: RAD - Abdomen W Erect - 07/29/2020 8:40 am CLINICAL HISTORY: SBO Pain COMPARISON: Abdomen W Erect dated 07/13/2020; Abdomen 1 View (KUB) dated 07/28/2020 FINDINGS: Enteric tube coils in the stomach. Mildly prominent small bowel loop in the left abdomen a ppear unchanged since prior study. No pneumothorax seen.
--- NOTE | 2020-07-29 14:16 | PN ---
Date of Progress Note: 07/29/2020 Subjective: The patient is awake and alert, had a bowel movement, passing gas. No nausea or vomitin g. Minimal amount of gastric output. No abdominal pain. Objective: Vital Signs: Stable, afebrile. Imaging Studies: X-ray has been done and report is pending. Laboratory Data: Reviewed. White count is normal. Left shift is improving. Chemistry reviewed. Assessment: Small bowel obstruction in the patient with Crohn disease. Recommendation: Continue current medical management. We will clamp NG tube and start the patient on clear liquids after we get the official report of the x-ray to make sure it has not gotten worse. T he patient is clinically slowly improving. She may need outpatient workup for her Crohn disease and if she continues to have recurrent bowel obstruction, may benefit from surgical intervention. /MODL Voice ID: [id number] Report ID: [id number]
[2020-07-30] MEDS: PIPER/TAZO/NS 3.375gm 3.375 GM/100 ML BAG IVPB SCH ×3 (00:29→16:31)
[2020-07-30] MEDS: METHYLPREDNISOLONE 40 MG INJ IV SCH ×3 (00:29→16:32)
[2020-07-30 04:09] LABS: Absolute Lymphocytes (CBC) 1.1 K/uL (0.7-4.9); Basophils % 0.3 % (0-1.3); Hematocrit 34.4 % (36.0-45.0); Lymphocytes % 15.8 % (15.3-44.8); RBC Red Blood Cell Count 4.07 M/uL (3.86-4.86)
[2020-07-30 04:24] LABS: Albumin 2.6 g/dL (3.4-5.0); Bilirubin Total 0.2 mg/dL (0.2-1.0); Magnesium 1.9 mg/dL (1.8-2.4)
[2020-07-30] MEDS: LEVOTHYROXINE SODIUM 100 MCG VIAL IV SCH (06:29)
[2020-07-30] MEDS: D5 0.45 NS 1,000 ML IV SCH ×2 (06:29→12:44)
[2020-07-30] MEDS: FOLIC ACID 1 MG in NA CHLORIDE 0.9% 50 ML IV SCH (08:21)
[2020-07-30] MEDS: ENOXAPARIN 40 MG/0.4 ML SQ SCH (08:22)
[2020-07-30] MEDS: THIAMINE 200 MG/2 ML INJ IVP SCH (08:22)
[2020-07-30] MEDS: PANTOPRAZOLE 40 MG INJ IVP SCH (08:22)
--- NOTE | 2020-07-30 08:55 | RAD REPORT ---
EXAM DESCRIPTION: RAD - Abdomen W Erect - 07/30/2020 6:32 am CLINICAL HISTORY: SBO Pain COMPARISON: Abdomen W Erect dated 07/29/2020 FINDINGS: Multiple dilated small bowel loops are present in the upper and left upper quadrant compat ible with mechanical bowel obstruction. This appears to have mildly to moderately worsened since yest terry's study. No pneumoperitoneum seen.
--- NOTE | 2020-07-30 12:41 | P.PN ---
Subjective Date of Service: 07/30/20 Abdominal x-ray showed worsening small-bowel obstruction. Patient is had numerous admissions in the recent past for similar events. Patient is recent abdominal x-ray revealed a transition point in the midline of the lower abdomen. It was felt to be secondary to an adhesion. Repeat x-ray in the morning. Continue NPO with NG tube in place. Patient may benefit from small-bowel series. Review of Systems 10-point ROS is otherwise unremarkable Physical Examination - Vital Signs Temperature: 97.9 F Blood Pressure: 164/73 Pulse: 50 Respirations: 16 Pulse Ox (%): 97 - Physical Exam General: Alert, In no apparent distress, Oriented x3 HEENT: Other (NG tube in place) Respiratory: Crackles/rales, Expiratory wheezes Cardiovascular: Regular rate/rhythm, Normal S1 S2, No murmurs Gastrointestinal: Normal bowel sounds, Soft and benign, Non-distended, No tenderness Musculoskeletal: No clubbing, No swelling, No tenderness Integumentary: No rashes Neurological: Normal strength at 5/5 x4 extr, Normal tone, Sensation intact, Cranial nerves 3-12 intact, Normal affect - Studies Medications List Reviewed: Yes Assessment & Plan - Problems (Diagnosis) (1) Small bowel obstruction Current Visit: No Status: Acute (2) Depression Current Visit: No Status: Chronic Qualifiers: Depression Type: unspecified Qualified Code(s): F32.9 - Major depressive disorder, single episode, unspecified (3) Hypertension Current Visit: No Status: Chronic Qualifiers: Hypertension type: essential hypertension Qualified Code(s): I10 - Essential (primary) hypertension (4) Hypothyroidism Current Visit: No Status: Chronic Qualifiers: Hypothyroidism type: unspecified Qualified Code(s): E03.9 - Hypothyroidism, unspecified - Plan 1. Continue with IV hydration 2. Continue with IV antibiotics 3. Continue with pain control 4. NPO 5. Surgery consultation appreciated. 6. Serial H&H, and we will monitor CBC, BMP, LFTs and lipase along with electrolytes. 7. Repeat abdominal film in the morning/may perform small-bowel series if obstruction relieved 8. GI and DVT prophylaxis Discharge Plan: Home - Advance Directives Does patient have a Living Will: No Does patient have a Durable POA for Healthcare: No - Code Status/Comfort Care Code Status Assessed: Yes Code Status: Full Code Critical Care: No Time Spent Managing PTS Care (In Minutes): 35
[2020-07-30] MEDS: HYDRALAZINE HCL 20 MG/ML VIAL IV PRN (14:33)
[2020-07-31] MEDS: PIPER/TAZO/NS 3.375gm 3.375 GM/100 ML BAG IVPB SCH ×3 (00:58→16:14)
[2020-07-31] MEDS: METHYLPREDNISOLONE 40 MG INJ IV SCH ×3 (00:58→16:14)
[2020-07-31] MEDS: D5 0.45 NS 1,000 ML IV SCH ×3 (02:00→16:15)
[2020-07-31 04:01] LABS: Absolute Lymphocytes (CBC) 1.1 K/uL (0.7-4.9); Basophils % 0.3 % (0-1.3); Hematocrit 36.4 % (36.0-45.0); Lymphocytes % 17.7 % (15.3-44.8); MPV 8.1 fL (7.6-11.3); RBC Red Blood Cell Count 4.32 M/uL (3.86-4.86)
[2020-07-31] MEDS: LEVOTHYROXINE SODIUM 100 MCG VIAL IV SCH (05:58)
--- NOTE | 2020-07-31 06:57 | RAD REPORT ---
EXAM DESCRIPTION: RAD - Abdomen 1 View (KUB) - 07/31/2020 6:02 am CLINICAL HISTORY: SBO COMPARISON: Abdomen 1 View (KUB) dated 07/28/2020; Abdomen W Erect dated 07/30/2020 FINDINGS: Multiple distended and dilated air-filled small bowel loops are present. Air is seen in no ndilated colon down to the level of the distal rectum. No free air or pneumatosis have developed. No obstruction, free air or pneumatosis. No suspicious calcifications. No significant bony findings IMPRESSION: Multiple dilated small bowel loops with no free air or pneumatosis identifiable. Pattern is not significantly different from prior day imaging.
[2020-07-31] MEDS: PANTOPRAZOLE 40 MG INJ IVP SCH (08:10)
[2020-07-31] MEDS: ENOXAPARIN 40 MG/0.4 ML SQ SCH (08:10)
[2020-07-31] MEDS: THIAMINE 200 MG/2 ML INJ IVP SCH (08:15)
[2020-07-31] MEDS: HYDRALAZINE HCL 20 MG/ML VIAL IV PRN (08:17)
[2020-07-31] MEDS: FOLIC ACID 1 MG in NA CHLORIDE 0.9% 50 ML IV SCH (09:55)
--- NOTE | 2020-07-31 10:14 | P.PN ---
Date of Service: 07/31/20 Subjective Will proceed with a small-bowel series. Patient with chronic obstruction. Patient states she has been here before and will review medical records. There is a questionable history of Crohn's disease. Review of Systems 10-point ROS is otherwise unremarkable Physical Examination - Vital Signs reviewed - Physical Exam General: Alert, In no apparent distress, Oriented x3 HEENT: Other (NG tube in place) Respiratory: Crackles/rales, Expiratory wheezes Cardiovascular: Regular rate/rhythm, Normal S1 S2, No murmurs Gastrointestinal: Soft and benign, Non-distended, mildly tender in the bilateral lower quadrants; bowel sounds hypoactive Musculoskeletal: No clubbing, No swelling, No tenderness Integumentary: No rashes Neurological: Normal strength at 5/5 x4 extr, Normal tone, Sensation intact, Cranial nerves 3-12 intact, Normal affect Assessment & Plan - Problems (Diagnosis) (1) Small bowel obstruction Current Visit: No Status: Acute (2) Depression Current Visit: No Status: Chronic Qualifiers: Depression Type: unspecified Qualified Code(s): F32.9 - Major depressive disorder, single episode, unspecified (3) Hypertension Current Visit: No Status: Chronic Qualifiers: Hypertension type: essential hypertension Qualified Code(s): I10 - Essential (primary) hypertension (4) Hypothyroidism Current Visit: No Status: Chronic Qualifiers: Hypothyroidism type: unspecified Qualified Code(s): E03.9 - Hypothyroidism, unspecified - Plan Continue with plan of care as mentioned below: 1. Continue with IV hydration 2. Continue with IV antibiotics 3. Continue with pain control 4. Depending on results of small-bowel series will probably start clear liquids today 5. Surgery consultation appreciated. 6. Serial H&H, and we will monitor CBC, BMP, LFTs and lipase along with electrolytes. Prior Prometheus screening was positive for Crohn's disease 7. Small-bowel series pending 8. GI and DVT prophylaxis
--- NOTE | 2020-07-31 14:00 | RAD REPORT ---
EXAM DESCRIPTION: RAD - Small Bowel Series - 07/31/2020 1:51 pm CLINICAL HISTORY: contrast (through NGT) COMPARISON: Abdomen Pelvis W Contrast dated 07/27/2020 FINDINGS: Private [employer] images show multiple distended to dilated small bowel loops in the mid and left-side d abdomen. Air is present in nondilated colon. NG tube is curled in the stomach which is decompressed . No free air or pneumatosis. No suspicious calcifications. Gastric size and mucosal fold pattern are normal. No delay in transit of contrast into the small juan jose l. Proximal small bowel loops are normal in diameter with a normal mucosal fold pattern seen. Distend ed and dilated distal small bowel loops are identifiable. Strictured small bowel loops are present in the distal ileum and ileocecal valve region corresponding to the areas of stricture on the CT study. No extravasation of contrast. No mass lesion identifiable. Transit time to the colon is 2.5 hours. IMPRESSION: Strictured and narrowed small bowel loops near the ileocecal valve and terminal ileum ma tching the July 27 CT study. Transit time to the colon was 2.5 hours, slightly delayed.
[2020-07-31] MEDS: ACETAMINOPHEN 500 MG TAB PO PRN (21:52)
[2020-08-01] MEDS: PIPER/TAZO/NS 3.375gm 3.375 GM/100 ML BAG IVPB SCH ×3 (00:54→16:01)
[2020-08-01] MEDS: METHYLPREDNISOLONE 40 MG INJ IV SCH ×2 (00:57→08:33)
[2020-08-01] MEDS ORDERED: KETOROLAC 30 MG/ML INJ IV ONE (03:54)
[2020-08-01] MEDS: D5 0.45 NS 1,000 ML IV SCH ×4 (04:08→16:01)
[2020-08-01] MEDS: LEVOTHYROXINE SODIUM 100 MCG VIAL IV SCH (06:00)
[2020-08-01] MEDS: HYDRALAZINE HCL 20 MG/ML VIAL IV PRN (08:28)
[2020-08-01] MEDS: ENOXAPARIN 40 MG/0.4 ML SQ SCH (08:32)
[2020-08-01] MEDS: PANTOPRAZOLE 40 MG INJ IVP SCH (08:33)
[2020-08-01] MEDS: THIAMINE 200 MG/2 ML INJ IVP SCH (08:33)
--- NOTE | 2020-08-01 09:15 | P.PN ---
Subjective Date of Service: 07/31/20 Primary Care Provider: Fox Vasquez NP; Surgery-Dr. Soriano Chief Complaint: Recurrent abdominal pain, nausea, vomiting Subjective: Improving Physical Examination - Vital Signs Temperature: 97.1 F Blood Pressure: 178/79 Pulse: 52 Respirations: 15 Pulse Ox (%): 96 - Physical Exam General: Alert, In no apparent distress, Cooperative Respiratory: Clear to auscultation bilaterally, Normal air movement Cardiovascular: Regular rate/rhythm Gastrointestinal: Soft and benign, No ascites, No tenderness, No masses, No rebound, No guarding - Studies Medications List Reviewed: Yes Assessment And Plan - Current Problems (Diagnosis) (1) Small bowel obstruction Current Visit: No Status: Acute Plan: Small bowel series shows contrast gets to colon in 2.5 hrs with stricture @ ilececal valve - DC NGT - start clears - patient will need outpatient endoscopy and workup for crohns and possible lower GI neoplasm - continue medical management Physician Review Additional Text: CT Scan: COMPARISON: Abdomen Pelvis W Contrast dated 07/12/2020; Abdomen Pelvis W Contrast dated 06/10/2020; Abdomen Pelvis W Contrast dated 06/07/2020; CT ABD PELVIS W CONTRAST dated 02/13/2013 TECHNIQUE: Biphasic CT imaging of the abdomen and pelvis was performed with 100 ml non-ionic IV contrast. All CT scans are performed using dose optimization technique as appropriate and may include automated exposure control or mA/KV adjustment according to patient size. FINDINGS: The lung bases are clear. The liver, spleen, pancreas, adrenal glands and kidneys are within normal limits. 17 mm superior right renal cyst. Multiple dilated small bowel loops are present in the left abdomen compatible with moderate to significant mechanical small-bowel obstruction. The most dilated small bowel loop measures 5.6 cm in transverse dimension. There is an abrupt caliber change with tapering of the small bowel in the lower abdomen (image 64/94). Mild sigmoid diverticulosis coli without diverticulitis. Small umbilical hernia. No pneumoperitoneum. No free fluid or abscess. No evidence of significant lymphadenopathy. No suspicious bony findings. IMPRESSION: Significant small-bowel obstruction is present with very abrupt transition point in the lower midline abdomen as detailed. This may be indicate a significant adhesion or closed loop obstruction. Follow up AB cxr: COMPARISON: Abdomen W Erect dated 07/13/2020; Abdomen 1 View (KUB) dated 07/28/2020 FINDINGS: Enteric tube coils in the stomach. Mildly prominent small bowel loop in the left abdomen appear unchanged since prior study. No pneumothorax seen. Impression: Abdominal pain, nausea and vomiting secondary to recurrent small-bowel obstruction complicated with history of Crohn's Elevated liver function with history of fatty liver Hypertension Hypothyroidism Depression Prediabetes Plan: Abdominal pain, nausea and vomiting secondary to recurrent small-bowel obstruction complicated with history of Crohn's: Patient remains stable. Still no passage of gas her stool. Repeat x-ray shows no significant change since yesterday. Continue n.p.o. status. NG tube remains in place. Continue IV antibiotic therapyZosyn, continue IV Solu-Medrol, continue IV fluids. Encourage incentive spirometer. Encourage ambulation. Dr. Bahena who has been consulted to help cover until Dr. Soriano returns back on Thursday to see the patient. Spoke with Dr. Bahena yesterday. Will discuss further with him today. Will also try to reach GI-Dr. Cesar who has seen the patient in the past for further recommendation. Will continue to monitor serial exams. Anticipate improvement on IV fluids, bowel rest, and IV antibiotic therapy. Will provide medication for pain. DVT prophylaxis-Lovenox in place. Anticipate improvement over the next 3-[address] Soriano to return tomorrow. I will turn the service over to the hospitalist team tomorrow. I will go plan of care with him. Elevated liver function likely related to above: Liver function test back to baseline. Hypertension: Will provide medication for blood pressure control. Hypothyroidism: Will continue with IV medication Depression: Will provide medication for agitation. Once the patient is able to take oral intake then will restart home medication. Prediabetes: Will monitor blood sugars. DVT prophylaxis: Lovenox Code status: Patient is full code Advanced care planning-30 min: Patient desires to go home at discharge.
[2020-08-01] MEDS: FOLIC ACID 1 MG in NA CHLORIDE 0.9% 50 ML IV SCH (09:45)
[2020-08-01] MEDS: KETOROLAC 10 MG TAB PO PRN ×2 (11:10→21:08)
[2020-08-01] MEDS: METHYLPREDNISOLONE 125 MG INJ IV SCH ×2 (12:27→17:26)
--- NOTE | 2020-08-01 13:28 | CON ---
Date of Consultation: 07/30/2020 Brief History Of Present Illness: The patient is a 65-year-old female with past medical hi story of hypertension, diabetes, hypothyroidism, depression, and possible Crohn disease, who was rece ntly seen by myself in the hospital with concern of a small bowel obstruction likely due to Crohn str icture at the ileocecal valve. She presents with similar complaints on this particular occasion with enlargement of intestine. She had been noncompliant with her diet when given a diet for low residue diet and predominantly liquid diet as an outpatient. As such, she came back with nausea, vomiting, and abdominal pain and inability to have a bowel movement for approximately a day and a half. Upon m y examination of her, she had been here for several days, seen by Dr. Bahena and Dr. Wahl, feeling s ignificantly better and started to have return of her bowel function with passage of gas and bowel mo vement prior to my arrival. She told me she was pain free at this point and as such, she felt signif icant improvement. Past Medical History: Hypertension, diabetes, hypothyroidism, depression, small bowel obstruction, G ERD, possible Crohn disease. Past Surgical History: Includes only . Social History: The patient is . She denies smoking, alcohol, or recreational drug use. Medications: Include Wellbutrin, vitamin D, ferrous sulfate, levothyroxine, lisinopril, hydrochlorot hiazide, Glucophage, metoprolol, Zoloft, naltrexone, Omnicef, Asacol, and Deltasone. Allergies: TO CIPRO, LATEX, FLAGYL, AND BUSPAR. Review of Systems: Ten-point review of systems other than HPI, denies. Physical Examination: General: At the time of my examination; she is awake, alert, and oriented. Psychiatric: She is appropriate, conversive. HEENT: Normocephalic. Sclerae anicteric. Mucous membranes moist. Oropharynx clear. Neck: Supple without JVD. Chest: Normal expansion and excursion. Cardiovascular: Regular rate and rhythm. Pulmonary: Clear to auscultation bilaterally. Abdomen: Soft, nontender, nondistended. No rebound. No guarding. No focal peritonitis. Extremities: No clubbing, cyanosis, edema. Skin: Warm and dry. Laboratory Data: Revealed a white blood cell count of 7.0, hemoglobin 11.1, hematocrit 34.4, platele t count is 321. Her neutrophil is 81%. Her sodium is 145, potassium 4.0, chloride 112, carbon dioxi de 28, BUN 8, creatinine 0.7, glucose is 139. AST 12, ALT 47, alkaline phosphatase 122. She had chad ging performed, which included a CT of the abdomen and pelvis, showed significant small bowel obstruc tion present with a very abrupt transition point in lower midline of abdomen, detailed may be indicat ed of significant adhesions or closed loop obstruction. She had further KUBs, which showed no change in her overall clinical picture. Assessment And Plan: This is a 65-year-old female, who comes in with possible Crohn disease of the i leocecal versus partial small bowel obstruction versus possible mass in the colon/ileocecal valve. 1.IV fluid hydration. 2.NG tube decompression. 3.Serial abdominal exams. 4.We will get small bowel series. 5.The patient needs a proper workup for Crohn disease and an endoscopy to rule out possible mass, wh ich may be causing obstruction as she believes there was a mass in her colon/small bowel last time sh e had an endoscopy in 2011. I have explained risks, benefits, and alternatives of the above stated p sanjana. The patient agrees to proceed as indicated. Thank you for this interesting consult. Thank you Dr. Bahena for cross-coverage. RODGER/ALIREZA Voice ID: [id number] Report ID: [id number]
[2020-08-01] MEDS: MESALAMINE 400 MG CAPSULE.DR PO SCH (21:03)
[2020-08-02] MEDS: METHYLPREDNISOLONE 125 MG INJ IV SCH ×4 (00:04→17:22)
[2020-08-02] MEDS: PIPER/TAZO/NS 3.375gm 3.375 GM/100 ML BAG IVPB SCH ×3 (00:04→17:22)
[2020-08-02] MEDS: KETOROLAC 10 MG TAB PO PRN (04:43)
[2020-08-02] MEDS: D5 0.45 NS 1,000 ML IV SCH ×3 (04:44→17:21)
[2020-08-02] MEDS: LEVOTHYROXINE SODIUM 100 MCG VIAL IV SCH (06:00)
[2020-08-02] MEDS: HYDRALAZINE HCL 20 MG/ML VIAL IV PRN (06:02)
[2020-08-02 06:50] LABS: Potassium 3.1 mmol/L (3.5-5.1)
[2020-08-02] MEDS ORDERED: POTASSIUM 25 MEQ EFFERV TAB PO ONE (08:00)
[2020-08-02] MEDS: THIAMINE 200 MG/2 ML INJ IVP SCH (09:00)
[2020-08-02] MEDS: MESALAMINE 400 MG CAPSULE.DR PO SCH ×2 (09:07→20:57)
[2020-08-02] MEDS: ENOXAPARIN 40 MG/0.4 ML SQ SCH (09:07)
[2020-08-02] MEDS: ACETAMINOPHEN 500 MG TAB PO PRN (09:08)
[2020-08-02] MEDS: PANTOPRAZOLE 40 MG INJ IVP SCH (09:08)
[2020-08-02] MEDS: FOLIC ACID 1 MG in NA CHLORIDE 0.9% 50 ML IV SCH (09:32)
[2020-08-02] MEDS ORDERED: POTASSIUM CL SA 10 MEQ TAB PO ONE ×2 (21:01→21:21)
[2020-08-03] MEDS: KETOROLAC 10 MG TAB PO PRN (00:30)
[2020-08-03] MEDS: HYDRALAZINE HCL 20 MG/ML VIAL IV PRN ×2 (00:30→07:57)
[2020-08-03] MEDS: METHYLPREDNISOLONE 125 MG INJ IV SCH ×3 (00:30→14:13)
[2020-08-03] MEDS: PIPER/TAZO/NS 3.375gm 3.375 GM/100 ML BAG IVPB SCH ×2 (00:30→07:57)
--- NOTE | 2020-08-03 01:36 | P.PN ---
Date of Service: 08/01/20 Subjective Small-bowel series did not reveal an obstruction. Patient tolerating clear liquid diet. Slowly advance diet. Patient with numerous readmissions and will make sure patient is doing well prior to discharging on this hospitalization. Review of Systems 10-point ROS is otherwise unremarkable Physical Examination - Vital Signs reviewed - Physical Exam General: Alert, In no apparent distress, Oriented x3 HEENT: Within normal limits Respiratory: Clear bilaterally Cardiovascular: Regular rate/rhythm, Normal S1 S2, No murmurs Gastrointestinal: Soft and benign, Non-distended, still mildly tender in the bilateral lower quadrants; bowel sounds hypoactive Musculoskeletal: No clubbing, No swelling, No tenderness Integumentary: No rashes Neurological: Normal strength at 5/5 x4 extr, Normal tone, Sensation intact, Cranial nerves 3-12 intact, Normal affect Assessment & Plan - Problems (Diagnosis) (1) Small bowel obstruction Current Visit: No Status: Acute (2) Depression Current Visit: No Status: Chronic Qualifiers: Depression Type: unspecified Qualified Code(s): F32.9 - Major depressive disorder, single episode, unspecified (3) Hypertension Current Visit: No Status: Chronic Qualifiers: Hypertension type: essential hypertension Qualified Code(s): I10 - Essential (primary) hypertension (4) Hypothyroidism Current Visit: No Status: Chronic Qualifiers: Hypothyroidism type: unspecified Qualified Code(s): E03.9 - Hypothyroidism, unspecified - Plan Continue with plan of care as mentioned below: 1. Continue with IV hydration 2. Continue with IV antibiotics 3. Continue with pain control 4. Started on clear liquids and slowly advanced diet 5. Surgery consultation appreciated. 6. Monitor labs and check Prometheus screening 7. Small-bowel series with no evidence of obstruction 8. GI and DVT prophylaxis
--- NOTE | 2020-08-03 01:38 | P.PN ---
Date of Service: 08/02/20 Subjective Patient continues to do well. However, she was really nervous about being discharged home. Her potassium was a little low today. She is still having some abdominal discomfort. She got tearful will we talked about her discharging today. However, if she continues to tolerate soft diet. I did advise her that she should be stable for discharge in the morning. Do not have any additional information that with require continued hospitalization. Tolerating full liquid diet. Reviewed prior medical records and patient with Prometheus screening positive for Crohn's disease. Review of Systems 10-point ROS is otherwise unremarkable Physical Examination - Vital Signs reviewed - Physical Exam General: Alert, In no apparent distress, Oriented x3 HEENT: Within normal limits Respiratory: Clear bilaterally Cardiovascular: Regular rate/rhythm, Normal S1 S2, No murmurs Gastrointestinal: Soft and benign, Non-distended, still mildly tender in the bilateral lower quadrants; bowel sounds hypoactive Musculoskeletal: No clubbing, No swelling, No tenderness Integumentary: No rashes Neurological: Normal strength at 5/5 x4 extr, Normal tone, Sensation intact, Cranial nerves 3-12 intact, Normal affect Assessment & Plan - Problems (Diagnosis) (1) Small bowel obstruction Current Visit: No Status: Acute (2) Depression Current Visit: No Status: Chronic Qualifiers: Depression Type: unspecified Qualified Code(s): F32.9 - Major depressive disorder, single episode, unspecified (3) Hypertension Current Visit: No Status: Chronic Qualifiers: Hypertension type: essential hypertension Qualified Code(s): I10 - Essential (primary) hypertension (4) Hypothyroidism Current Visit: No Status: Chronic Qualifiers: Hypothyroidism type: unspecified Qualified Code(s): E03.9 - Hypothyroidism, unspecified - Plan Continue with plan of care as mentioned below: 1. Continue with IV hydration and continue with IV steroids; will start Pentasa 1g Q i.d. 2. Continue with IV antibiotics 3. Continue with pain control 4. Advanced to full liquid diet 5. Surgery consultation appreciated. 6. Monitor labs and check Prometheus screening 7. Small-bowel series with no evidence of obstruction 8. GI and DVT prophylaxis
[2020-08-03 04:08] LABS: Absolute Lymphocytes (CBC) 0.7 K/uL (0.7-4.9); Basophils % 0.3 % (0-1.3); Hematocrit 37.3 % (36.0-45.0); Lymphocytes % 10.1 % (15.3-44.8); MPV 8.3 fL (7.6-11.3); RBC Red Blood Cell Count 4.46 M/uL (3.86-4.86)
[2020-08-03 04:26] LABS: Potassium 3.6 mmol/L (3.5-5.1)
[2020-08-03] MEDS: D5 0.45 NS 1,000 ML IV SCH ×2 (05:31→07:00)
[2020-08-03] MEDS ORDERED: POTASSIUM CL SA 10 MEQ TAB PO ONE (06:00)
[2020-08-03] MEDS: ENOXAPARIN 40 MG/0.4 ML SQ SCH (07:55)
[2020-08-03] MEDS: THIAMINE 200 MG/2 ML INJ IVP SCH (07:56)
[2020-08-03] MEDS: PANTOPRAZOLE 40 MG INJ IVP SCH (07:56)
[2020-08-03] MEDS: MESALAMINE 400 MG CAPSULE.DR PO SCH (07:56)
--- NOTE | 2020-08-03 09:03 | RAD REPORT ---
EXAM DESCRIPTION: RAD - Abdomen W Erect - 08/03/2020 6:49 am CLINICAL HISTORY: SBO Pain COMPARISON: Abdomen W Erect dated 07/30/2020; Small Bowel Series dated 07/31/2020 FINDINGS: There continues to be several dilated small bowel loops in the left aspect of the abdomen, likely related to partial obstruction. This appears mildly improved since comparative radiograph Con trast is noted in the colon, however. No pneumoperitoneum.
--- NOTE | 2020-08-03 09:10 | P.PN ---
Subjective Date of Service: 08/02/20 Primary Care Provider: Fox Vasquez NP; Surgery-Dr. Soriano Chief Complaint: Recurrent abdominal pain, nausea, vomiting Subjective: Improving (normal bowel function, no pain, tolerating diet) Physical Examination - Vital Signs Temperature: 97.0 F Blood Pressure: 195/90 Pulse: 56 Respirations: 16 Pulse Ox (%): 96 - Physical Exam General: Alert, In no apparent distress, Cooperative Respiratory: Clear to auscultation bilaterally Gastrointestinal: Soft and benign, Non-distended, No ascites, No tenderness, No masses, No rebound, No guarding - Studies Medications List Reviewed: Yes Assessment And Plan - Current Problems (Diagnosis) (1) Small bowel obstruction Current Visit: No Status: Acute Plan: Small bowel series shows contrast gets to colon in 2.5 hrs with stricture @ ilececal valve - recommend predominantly liquid diet with ensure, then supplement soft diet - patient will need outpatient endoscopy and workup for crohns and possible lower GI neoplasm - continue medical management Physician Review Additional Text: CT Scan: COMPARISON: Abdomen Pelvis W Contrast dated 07/12/2020; Abdomen Pelvis W Contrast dated 06/10/2020; Abdomen Pelvis W Contrast dated 06/07/2020; CT ABD PELVIS W CONTRAST dated 02/13/2013 TECHNIQUE: Biphasic CT imaging of the abdomen and pelvis was performed with 100 ml non-ionic IV contrast. All CT scans are performed using dose optimization technique as appropriate and may include automated exposure control or mA/KV adjustment according to patient size. FINDINGS: The lung bases are clear. The liver, spleen, pancreas, adrenal glands and kidneys are within normal limits. 17 mm superior right renal cyst. Multiple dilated small bowel loops are present in the left abdomen compatible with moderate to significant mechanical small-bowel obstruction. The most dilated small bowel loop measures 5.6 cm in transverse dimension. There is an abrupt caliber change with tapering of the small bowel in the lower abdomen (image 64/94). Mild sigmoid diverticulosis coli without diverticulitis. Small umbilical hernia. No pneumoperitoneum. No free fluid or abscess. No evidence of significant lymphadenopathy. No suspicious bony findings. IMPRESSION: Significant small-bowel obstruction is present with very abrupt transition point in the lower midline abdomen as detailed. This may be indicate a significant adhesion or closed loop obstruction. Follow up AB cxr: COMPARISON: Abdomen W Erect dated 07/13/2020; Abdomen 1 View (KUB) dated 07/28/2020 FINDINGS: Enteric tube coils in the stomach. Mildly prominent small bowel loop in the left abdomen appear unchanged since prior study. No pneumothorax seen. Impression: Abdominal pain, nausea and vomiting secondary to recurrent small-bowel obstruction complicated with history of Crohn's Elevated liver function with history of fatty liver Hypertension Hypothyroidism Depression Prediabetes Plan: Abdominal pain, nausea and vomiting secondary to recurrent small-bowel obstruction complicated with history of Crohn's: Patient remains stable. Still no passage of gas her stool. Repeat x-ray shows no significant change since yesterday. Continue n.p.o. status. NG tube remains in place. Continue IV antibiotic therapyZosyn, continue IV Solu-Medrol, continue IV fluids. Encourage incentive spirometer. Encourage ambulation. Dr. Bahena who has been consulted to help cover until Dr. Soraino returns back on Thursday to see the patient. Spoke with Dr. Bahena yesterday. Will discuss further with him today. Will also try to reach GI-Dr. Cesar who has seen the patient in the past for further recommendation. Will continue to monitor serial exams. Anticipate improvement on IV fluids, bowel rest, and IV antibiotic therapy. Will provide medication for pain. DVT prophylaxis-Lovenox in place. Anticipate improvement over the next 3-[address] Soriano to return tomorrow. I will turn the service over to the hospitalist team tomorrow. I will go plan of care with him. Elevated liver function likely related to above: Liver function test back to baseline. Hypertension: Will provide medication for blood pressure control. Hypothyroidism: Will continue with IV medication Depression: Will provide medication for agitation. Once the patient is able to take oral intake then will restart home medication. Prediabetes: Will monitor blood sugars. DVT prophylaxis: Lovenox Code status: Patient is full code Advanced care planning-30 min: Patient desires to go home at discharge.
--- NOTE | 2020-08-03 09:11 | P.PN ---
Subjective Date of Service: 08/03/20 Primary Care Provider: Fox Vasquez NP; Surgery-Dr. Soriano Chief Complaint: Recurrent abdominal pain, nausea, vomiting Subjective: No new changes Review of Systems 10-point ROS is otherwise unremarkable Neurological: Other (headache) Physical Examination - Vital Signs Temperature: 97.0 F Blood Pressure: 195/90 Pulse: 56 Respirations: 16 Pulse Ox (%): 96 - Physical Exam General: Alert, In no apparent distress, Cooperative HEENT: Atraumatic, Normocephalic Neck: Supple Respiratory: Clear to auscultation bilaterally Cardiovascular: No edema, Normal pulses, Regular rate/rhythm Gastrointestinal: Soft and benign, Non-distended, No tenderness, No masses, No rebound, No guarding Neurological: Normal speech - Studies Medications List Reviewed: Yes Assessment And Plan - Current Problems (Diagnosis) (1) Small bowel obstruction Current Visit: No Status: Acute Plan: Small bowel series shows contrast gets to colon in 2.5 hrs with stricture @ ilececal valve - recommend predominantly liquid diet with ensure, then supplement soft diet - patient will need outpatient endoscopy and workup for crohns and possible lower GI neoplasm - continue medical management Physician Review Additional Text: CT Scan: COMPARISON: Abdomen Pelvis W Contrast dated 07/12/2020; Abdomen Pelvis W Contrast dated 06/10/2020; Abdomen Pelvis W Contrast dated 06/07/2020; CT ABD PELVIS W CONTRAST dated 02/13/2013 TECHNIQUE: Biphasic CT imaging of the abdomen and pelvis was performed with 100 ml non-ionic IV contrast. All CT scans are performed using dose optimization technique as appropriate and may include automated exposure control or mA/KV adjustment according to patient size. FINDINGS: The lung bases are clear. The liver, spleen, pancreas, adrenal glands and kidneys are within normal limits. 17 mm superior right renal cyst. Multiple dilated small bowel loops are present in the left abdomen compatible with moderate to significant mechanical small-bowel obstruction. The most dilated small bowel loop measures 5.6 cm in transverse dimension. There is an abrupt caliber change with tapering of the small bowel in the lower abdomen (image 64/94). Mild sigmoid diverticulosis coli without diverticulitis. Small umbilical hernia. No pneumoperitoneum. No free fluid or abscess. No evidence of significant lymphadenopathy. No suspicious bony findings. IMPRESSION: Significant small-bowel obstruction is present with very abrupt transition point in the lower midline abdomen as detailed. This may be indicate a significant adhesion or closed loop obstruction. Follow up AB cxr: COMPARISON: Abdomen W Erect dated 07/13/2020; Abdomen 1 View (KUB) dated 07/28/2020 FINDINGS: Enteric tube coils in the stomach. Mildly prominent small bowel loop in the left abdomen appear unchanged since prior study. No pneumothorax seen. Impression: Abdominal pain, nausea and vomiting secondary to recurrent small-bowel obstruction complicated with history of Crohn's Elevated liver function with history of fatty liver Hypertension Hypothyroidism Depression Prediabetes Plan: Abdominal pain, nausea and vomiting secondary to recurrent small-bowel obstruction complicated with history of Crohn's: Patient remains stable. Still no passage of gas her stool. Repeat x-ray shows no significant change since yesterday. Continue n.p.o. status. NG tube remains in place. Continue IV antibiotic therapyZosyn, continue IV Solu-Medrol, continue IV fluids. Encourage incentive spirometer. Encourage ambulation. Dr. Bahena who has been consulted to help cover until Dr. Soriano returns back on Thursday to see the patient. Spoke with Dr. Bahena yesterday. Will discuss further with him today. Will also try to reach GI-Dr. Cesar who has seen the patient in the past for further recommendation. Will continue to monitor serial exams. Anticipate improvement on IV fluids, bowel rest, and IV antibiotic therapy. Will provide medication for pain. DVT prophylaxis-Lovenox in place. Anticipate improvement over the next 3-[address] Soriano to return tomorrow. I will turn the service over to the hospitalist team tomorrow. I will go plan of care with him. Elevated liver function likely related to above: Liver function test back to baseline. Hypertension: Will provide medication for blood pressure control. Hypothyroidism: Will continue with IV medication Depression: Will provide medication for agitation. Once the patient is able to take oral intake then will restart home medication. Prediabetes: Will monitor blood sugars. DVT prophylaxis: Lovenox Code status: Patient is full code Advanced care planning-30 min: Patient desires to go home at discharge.
[2020-08-03 11:06] VITALS: O2SAT 98
[2020-08-03] MEDS: FOLIC ACID 1 MG in NA CHLORIDE 0.9% 50 ML IV SCH (11:10)
[2020-08-03] MEDS: LEVOTHYROXINE SODIUM 100 MCG VIAL IV SCH (11:11)
[2020-08-03] MEDS: ACETAMINOPHEN 500 MG TAB PO PRN (11:22)
[2020-08-03 12:42] VITALS: BP 146/70; TEMP 97.5
== END 2020-08-03 14:30 | disposition home or self-care (01) | DRG 389 ==
LOC: ER 12:47 → ERHOLD 15:39 → 4TH 17:22
PROVIDERS: ADMIT Family Medicine; ATTEND Family Medicine
DX: K56.609 Unspecified intestinal obstruction, unspecified as to partial versus complete obstruction (principal); K50.90 Crohn's disease, unspecified, without complications; R73.03 Prediabetes; I10 Essential (primary) hypertension; E03.9 Hypothyroidism, unspecified; F32.9 Major depressive disorder, single episode, unspecified; R79.89 Other specified abnormal findings of blood chemistry; Z91.040 Latex allergy status; Z20.822 Contact with and (suspected) exposure to COVID-19
CPT/HCPCS: 36415; 74018; 74019; 74177; 74250; 80048; 80053; 80076; 81003; 81015; 82565; 83690; 83735; 84132; 84145; 85025; 85652; 86140; 87040; 87205; 94010; 96361; 96365; 96366; 96375; 99285; C9113; J0360; J1650; J2405; J2543; J2920; J2930; J3411; J3480; J7030; J7040; J7042; J7799; Q9967; U0003

== ENCOUNTER 2020-10-27 23:11 | Inpatient (IN) | payer BC ==
--- OUTSIDE RECORDS SUMMARY | 2020-10-27 23:15 | XMS REPORT | Continuity of Care Document ---
:1955 Author Organization [facility] t Address [address] [place] [address] Care Team Providers Name Role Phone Kael MEADOWS MD, A Primary Care Physician Silas PARSONS, R. 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:00: [facility]osp[facility] involving involving 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 pectoris SOB SOB Disease Active [facility] (shortness (shortness 2-02 st of breath) of breath) 00:00: Ho spita 00 l Aortic Aortic Disease Active [facility] valve valve 2-02 st disorder disorder 00:00: Hospit a 00 l Allergies, Adverse Reactions, Alerts Allergy Allergy Status Severity Reaction(s) Onset Inactive Treating Comm ents Source Name Type Date Date Clinician Latex, Propensi Active Itching [facility] Natural ty to st Rubber adverse Hospita reaction l s to drug Family History Family Member Diagnosis Comments Start Date Stop Date Source [facility] Social History Social Habit Start Date Stop Date Quantity Comments Source History [facility] St[facility] Drinks [facility] History [facility] Alcohol intake 2018-03-19 2018-03-19 Current [facility] 00:[facility]:00:00 non-drinker of Hospital alcohol (finding) History SDOH 2018-03-19 2018-03-19 1 [facility] Frequency 00:00:00 00:00:00 Hospita l Tobacco use and 2018-03-19 2018-03-19 Never used Church exposure 00:00:00 00:00:00 Hospital Sex Ass[birth year] At [birth year] [facility] 00:[facility]00 Hospital Smoking Status Start Date Stop Date Source Former smoker 2018-03-19 00:00:00 2018-03-19 00:00:00 [facility] Medications Ordered Filled Start Stop Current Ordering Indication Dosage Frequency Signature Comments Components Source Medication Medication Date Date Medication? Clinician (SIG) Name Name lisinopriL- 0 Yes [id number] 1{tbl} QD TAKE 1 [facility] hydrochloro 7-[address] thiazide 00:00: MOUTH Hospita (PRINZIDE) 00 DAILY l 10-12.5 mg per tablet metoprolol 0 Yes [id number] TAKE 1 Me thodi tartrate 7-29 TABLET(50 st (LOPRESSOR) 00:00: MG) BY Hosp [facility] 50 mg 00 MOUTH l tablet TWICE DAILY metoprolol 2020- No [id number] TAKE 1 M [facility] tartrate 4-26 07-29 TABLET(50 st (LOPRESSOR) 00:00: 00:00 MG) BY Hos alba 50 mg 00 :00 MOUTH l tablet TWICE DAILY lisinopriL- 0 2020- No [id number] 1{tbl} QD TAKE 1 [facility] hydrochloro 4-26 07-[address] thiazide 00:00: 00:00 MOUTH [facility]ospita (PRINZIDE) 00 :00 DAILY l 10-12.5 mg per tablet lisinopriL- 2020- No [id number] 1{tbl} QD Take 1 [facility] hydrochloro 1-25 04-[address] thiazide 00:00: 00:00 mouth Hospita (PRINZIDE) 00 :00 daily. l 10-12.5 mg per tablet metoprolol 2020- No [id number] 50mg Q.5D Take 1 M [facility]i tartrate 1-10 06-26 tablet (50 st (LOPRESSOR) 00:00: 00:00 mg total) Hospita 50 mg 00 :00 by mouth 2 l tablet (two) times a day. lisinopril- 2020- No [id number] 1{tbl} QD TAKE 1 [facility] hydrochloro -30 -[address] thiazide 00:00: 00:00 MOUTH [facility]ospita (PRINZIDE) 00 :00 DAILY l 10-12.5 mg per tablet metoprolol 2020- No [id number] TAKE 1 M [facility]i tartrate 03-17- TABLET(50 st (LOPRESSOR) 00:00: 00:00 MG) BY Hos alba 50 mg 00 :00 MOUTH l tablet TWICE DAILY aspirin Yes 81mg QD Take 81 mg Meth denis (ECOTRIN) 8-[address] 81 MG 16:39: daily. Hospita enteric 47 l coated tablet fexofenadin Yes Take by Met brianne e HCl 8-[address] (JAYCOB 16:39: needed. Hospit a ODT ORAL) 47 l cetirizine Yes 10mg Q24H Take 10 mg M [facility]i (ZyrTEC) 10 8-[address] MG tablet 16:39: daily as Hosp mich 47 needed for l allergies. mvit,calc,m Yes Take by Met brianne in-folic 8-[address] [id number] 16:39: Hospita 200 mcg 47 l tablet coenzyme Yes [facility] Q10 (CO 09-23 st Q-10) 100 00:00: Hospita mg capsule 00 l cholecalcif Yes Method i alex, 09-17 st vitamin D3, 00:00: Hospit a (VITAMIN 00 l D3) 5,000 unit tablet docusate Yes [facility] sodium 8-01 st (COLACE) 00:00: Hospita 100 MG 00 l capsule ferrous 2019-0 Yes [facility] sulfate 325 7-17 st (65 FE) MG 00:00: Hospita tablet 00 l sertraline 2019-0 Yes [facility] (ZOLOFT) 7-15 st 100 MG 00:00: Hospita tablet 00 l Procedures This patient has no known procedures. Plan of Care Planned Activity Planned Date Details Comments Source Future Scheduled Test COVID-19 VACCINE (1) [facility] [code = COVID-19 VACCINE (1)] Future Scheduled Test Hepatitis C screening [facility] (procedure) [code = 739332809] Future Scheduled Test Screening for malignant [facility] neoplasm of cervix (procedure) [code = 023432508] Future Scheduled Test BREAST CANCER SCREENING [facility] [code = BREAST CANCER SCREENING] Future Scheduled Test COLONOSCOPY SCREENING [facility] [code = COLONOSCOPY SCREENING] Future Scheduled Test SHINGLES VACCINES (#1) [facility] [code = SHINGLES VACCINES (#1)] Future Scheduled Test INFLUENZA VACCINE [code [facility] = INFLUENZA VACCINE] Encounters Start End Encounter Admission Attending Care Care Encounter Source Date/Time Date/Time Type Type Clinicians Facility Department ID 2020-09-12 2020-09-12 Refevan Clemons, [id number] [facility] 00:00:00 00:00:[address] Gu[id number] [id number] Hospit a .[id number] l .8 2020-06-11 2020-06-11 Toby Clemons [id number] [facility] 00:00:00 00:00:00 Guerline [id number] 3.430.2.7 Hospit a .[id number] l .8 2020-03-12 2020-03-12 Javier Kelly [id number] [facility] 00:00:00 00:00:[id number] 3.430.2.7 Hospit a .3.077000 l .8 2019-09-27 2019-09-27 Outpatient [facility]ILAS [facility] [id number] [address] [place] [address] 00:00:00 00:00:[address] Results This patient has no known results.
[2020-10-28 01:01] LABS: Basophils % 0.7 % (0-1.3); Hematocrit 41.9 % (36.0-45.0); MPV 7.6 fL (7.6-11.3); RBC Red Blood Cell Count 4.89 M/uL (3.86-4.86)
[2020-10-28] MEDS ORDERED: ONDANSETRON 4 MG/2 ML VIAL ONE ×2 (01:15→08:12)
[2020-10-28] MEDS ORDERED: MORPHINE 4 MG/ML SYR ONE ×2 (01:15→04:17)
[2020-10-28 01:17] LABS: Albumin 3.3 g/dL (3.4-5.0); Bilirubin Direct 0.1 mg/dL (0-0.2); Bilirubin Total 0.4 mg/dL (0.2-1.0); Potassium 3.2 mmol/L (3.5-5.1); Protein, Total 7.2 g/dL (6.4-8.2)
--- NOTE | 2020-10-28 03:04 | EDPHYS ---
Physician Documentation [facility] Name: Kindra Novoa Age: 65 yrs Sex: Female : 1955 Arrival Date: 10/27/2020 Time: 23:18 Bed 19 Private MD: ED Physician Wild Lilly HPI: 10/28 05:16 This 65 yrs old Female presents to ER via Ambulatory with complaints of tw4 Abdominal Pain, Nausea, SIDE AND LOW BACK PAIN. 05:16 The patient presents to the emergency department with nausea, vomiting, abdominal pain. tw4 Onset: The symptoms/episode began/occurred today. Possible causes: unknown. The symptoms are aggravated by nothing. The symptoms are alleviated by nothing. Associated signs and symptoms: Pertinent positives: abdominal pain. Severity of symptoms: At their worst the symptoms were moderate in the emergency department the symptoms have resolved. The patient has experienced similar episodes in the past, several times. Patient has a history of small bowel obstruction she states that her abdominal pain started tonight it was been intense. She has had nausea vomiting with it. Patient denies any diarrhea. Patient has any fevers or chills. There are no sick contacts no recent travel. Generally very infectious related to patient's pain.. Historical: - Allergies: 10/27 23:49 Flagyl; bs2 23:49 Ciprofloxacin; bs2 23:49 Latex, Natural Rubber; bs2 23:49 buspirone; bs2 - Home Meds: 23:49 bupropion HCl 150 mg Oral Tb24 once daily [Active]; bupropion HCl 75 mg Oral tab bs2 nightly [Active]; cholecalciferol (vitamin D3) 5,000 unit Oral cap daily [Active]; ferrous sulfate 325 mg (65 mg iron) Oral tab daily [Active]; levothyroxine 25 mcg tab 1 tab once daily [Active]; lisinopril-hydrochlorothiazide 10-12.5 mg Oral tab 1 tab once daily [Active]; metformin 500 mg Oral tr24 1 tab once daily [Active]; metoprolol tartrate 50 mg Oral tab 1 tab 2 times per day [Active]; sertraline 100 mg Oral tab 1 tab nightly [Active]; sertraline 50 mg Oral tab 1 tab once daily [Active]; Pentasa Oral [Active]; Humira Pen subcutaneous [Active]; - PMHx: 23:49 Colitis; Depression; Hypertension; Hypothyroidism; insulin resistance; Crohn's disease; bs2 - PSHx: 23:49 None; bs2 - Immunization history:: Adult Immunizations not up to date, Client reports having NOT received the Covid vaccine. - Social history:: Smoking status: Patient denies any tobacco usage or history of. ROS: 10/28 05:16 Constitutional: Negative for fever, chills, and weight loss, Eyes: Negative for injury, tw4 pain, redness, and discharge. Back: Negative for injury and pain, MS/Extremity: Negative for injury and deformity, Skin: Negative for injury, rash, and discoloration, Neuro: Negative for headache, weakness, numbness, tingling, and seizure. Abdomen/GI: Positive for abdominal pain, nausea and vomiting, nausea, vomiting, and diarrhea, nausea, vomiting, Negative for diarrhea, constipation, abdominal cramps, black/tarry stool, rectal pain, rectal bleeding, bowel incontinence. Exam: 05:16 Constitutional: This is a well developed, well nourished patient who is awake, alert, tw4 and in no acute distress. Head/Face: Normocephalic, atraumatic. Chest/axilla: Normal chest wall appearance and motion. Nontender with no deformity. No lesions are appreciated. Cardiovascular: Regular rate and rhythm with a normal S1 and S2. No gallops, murmurs, or rubs. Normal PMI, no JVD. No pulse deficits. Respiratory: Lungs have equal breath sounds bilaterally, clear to auscultation and percussion. No rales, rhonchi or wheezes noted. No increased work of breathing, no retractions or nasal flaring. 05:16 Back: No spinal tenderness. No costovertebral tenderness. Full range of motion. MS/ Extremity: Pulses equal, no cyanosis. Neurovascular intact. Full, normal range of motion. Neuro: Awake and alert, GCS 15, oriented to person, place, time, and situation. Cranial nerves II-XII grossly intact. Motor strength 5/5 in all extremities. Sensory grossly intact. Cerebellar exam normal. Normal gait. 05:16 Abdomen/GI: Inspection: abdomen appears normal, Bowel sounds: diminished, Palpation: moderate abdominal tenderness, in all quadrants. Vital Signs: 10/27 23:47 BP 139 / 78; Pulse 77; Resp 20; Temp 98.1(O); Pulse Ox 97% on R/A; Weight 101.15 kg bs2 (R); Height 5 ft. 0 in. (152.40 cm); Pain 1010; 10/28 02:17 BP 114 / 64; Pulse 66; Resp 18; Pulse Ox 99% on R/A; lp1 03:04 BP 105 / 61; Pulse 64; Resp 18; Pulse Ox 95% on R/A; lp1 04:07 BP 125 / 75; Pulse 68; Resp 18; Pulse Ox 99% on R/A; lp1 05:58 BP 123 / 75; Pulse 72; Resp 18; Pulse Ox 95% on R/A; lp1 10/27 23:47 Body Mass Index 43.55 (101.15 kg, 152.40 cm) bs2 MDM: 00:49 Patient medically screened. tw4 05:16 Differential diagnosis: Nonspecific abd pain, gastritis, cholecystitis, pancreatitis. tw4 Data reviewed: vital signs, nurses notes. Data reviewed: lab test result(s), CBC, electrolytes, radiologic studies, CT scan. Data interpreted: Pulse oximetry: Interpretation: normal. Test interpretation: by ED physician or midlevel provider: not applicable. Counseling: I had a detailed discussion with the patient and/or guardian regarding: the historical points, exam findings, and any diagnostic results supporting the discharge/admit diagnosis, lab results, radiology results. Physician consultation: Jefferson Mac MD regarding admission, to the medical/surgical unit. patient's condition, and will see patient in inpatient room. ED course: Patient was complaining surgeon emergency room. Patient CT scan revealed small bowel obstruction. Patient has had previous from obstructions. We will place in the G-tube and consult surgery for further management. 10/28 00:49 Order name: Basic Metabolic Panel tw4 10/28 00:49 Order name: CBC with Diff tw4 10/28 00:49 Order name: Hepatic Function tw4 10/28 00:49 Order name: Lipase tw4 10/28 00:50 Order name: Basic Metabolic Panel EDMS 10/28 00:50 Order name: CBC with Automated Diff EDMS 10/28 00:50 Order name: Liver (Hepatic) Function EDMS 10/28 00:50 Order name: Lipase EDMS 10/28 04:37 Order name: SARS-COV-2 RT PCR EDMS 10/28 05:04 Order name: CBC with Automated Diff EDMS 10/28 05:04 Order name: CBC with Automated Diff EDMS 10/28 05:04 Order name: Comprehensive Metabolic Panel EDMS 10/28 05:04 Order name: Comprehensive Metabolic Panel EDMS 10/28 00:49 Order name: IV Saline Lock; Complete Time: 00:54 tw4 10/28 00:49 Order name: Labs collected and sent; Complete Time: 00:54 tw4 10/28 00:49 Order name: CT Abd/Pelvis - IV Contrast Only tw4 10/28 04:57 Order name: CONS Physician Consult EDMS 10/28 05:04 Order name: NPO EDMS 10/28 05:04 Order name: Magnesium EDMS 10/28 05:04 Order name: Magnesium EDMS 10/28 05:04 Order name: Phosphorus EDMS 10/28 05:04 Order name: Phosphorus EDMS 10/28 05:22 Order name: Nasogastric Tube; Complete Time: 07:14 tw4 Administered Medications: 00:50 Drug: morphine 4 mg Route: IVP; Site: right antecubital; lp1 03:05 Follow up: Response: Pain is decreased lp1 00:50 Drug: Zofran (Ondansetron) 4 mg Route: IVP; Site: right antecubital; lp1 03:06 Follow up: Response: No adverse reaction lp1 04:05 Drug: morphine 4 mg Route: IVP; Site: right antecubital; lp1 07:40 Follow up: Response: No adverse reaction ll1 07:50 Drug: Zofran (Ondansetron) 4 mg Route: IVP; Site: left antecubital; ll1 Disposition Summary: 10/28/20 03:03 Hospitalization Ordered Hospitalization Status: Inpatient Admission tw4 Provider: Jefferson Mac tw4 Condition: Stable tw4 Problem: new tw4 Symptoms: have improved tw4 Bed/Room Type: Standard tw4 Location: Telemetry/MedSurg (Inpatient)(10/28/20 07:18) dw Room Assignment: [facility](10/28/20 07:18) dw Diagnosis - Other intestinal obstruction tw4 Forms: - Medication Reconciliation Form tw4 - SBAR form tw4 Signatures: Dispatcher [employer] EDMS Mariposa Green RN RN mw Tracy Mandujano RN RN dw Ros Solis, RN RN lp1 Wild Lilly MD MD tw4 [place] RN RN ll1 Sara Eduardo RN RN bs2 Corrections: (The following items were deleted from the chart) 03:28 03:09 CORONAVIRUS+MR.LAB.BRZ ordered. EDPA EDMS 03:44 03:03 Telemetry/MedSurg (Inpatient) 4 mw 03:44 03:03 tw mw 07:18 03:44 [facility] ER HOLD mw dw 07:18 03:44 ERHOLD- mw dw
--- NOTE | 2020-10-28 03:04 | ER ---
Nurse's Notes [facility] Name: Kindra Novoa Age: 65 yrs Sex: Female : 1955 Arrival Date: 10/27/2020 Time: 23:18 Bed 19 Private MD: Diagnosis: Other intestinal obstruction Presentation: 10/27 23:47 Chief complaint: Patient states: diagnosed with Chrons here. having flare up, abd pain, bs2 constipation. Coronavirus screen: Vaccine status: Patient reports being unvaccinated. Ebola Screen: No symptoms or risks identified at this time. Initial Sepsis Screen: Does the patient meet any 2 criteria? No. Patient's initial sepsis screen is negative. Does the patient have a suspected source of infection? No. Patient's initial sepsis screen is negative. Risk Assessment: Do you want to hurt yourself or someone else? Patient reports no desire to harm self or others. Onset of symptoms was October 27, 2020. 23:47 Method Of Arrival: Ambulatory bs2 23:47 Acuity: KAROL 3 bs2 Triage Assessment: 23:49 General: Appears uncomfortable, obese, Behavior is calm, cooperative, appropriate for bs2 age. Pain: Complains of pain in back and abdomen Pain currently is 10 out of 10 on a pain scale. GI: Reports lower abdominal pain, upper abdominal pain, constipation, nausea. Historical: - Allergies: 23:49 Flagyl; bs2 23:49 Ciprofloxacin; bs2 23:49 Latex, Natural Rubber; bs2 23:49 buspirone; bs2 - Home Meds: 23:49 bupropion HCl 150 mg Oral Tb24 once daily [Active]; bupropion HCl 75 mg Oral tab bs2 nightly [Active]; cholecalciferol (vitamin D3) 5,000 unit Oral cap daily [Active]; ferrous sulfate 325 mg (65 mg iron) Oral tab daily [Active]; levothyroxine 25 mcg tab 1 tab once daily [Active]; lisinopril-hydrochlorothiazide 10-12.5 mg Oral tab 1 tab once daily [Active]; metformin 500 mg Oral tr24 1 tab once daily [Active]; metoprolol tartrate 50 mg Oral tab 1 tab 2 times per day [Active]; sertraline 100 mg Oral tab 1 tab nightly [Active]; sertraline 50 mg Oral tab 1 tab once daily [Active]; Pentasa Oral [Active]; Humira Pen subcutaneous [Active]; - PMHx: 23:49 Colitis; Depression; Hypertension; Hypothyroidism; insulin resistance; Crohn's disease; bs2 - PSHx: 23:49 None; bs2 - Immunization history:: Adult Immunizations not up to date, Client reports having NOT received the Covid vaccine. - Social history:: Smoking status: Patient denies any tobacco usage or history of. Screenin/12 00:18 Abuse screen: Denies threats or abuse. Denies injuries from another. Nutritional lp1 screening: No deficits noted. Tuberculosis screening: No symptoms or risk factors identified. 04:05 Fall Risk None identified. lp1 Assessment: 02:55 GI: Abdomen is round distended, Last BM was October 27, 2020. Bowel sounds present X lp1 4 quads. 04:05 GI: Abdomen is tender to palpation X 4 quads. lp1 04:05 Pain: Complains of pain in abdomen Goal of pain control is to sleep comfortably. lp1 04:06 Reassessment: Pt states pain 10/10 diffuse through abd. No N/V noted. Abd round and lp1 firm. Bowel sounds present. 07:00 Reassessment: No changes from previously documented assessment. Patient and/or family ll1 updated on plan of care and expected duration. Pain level reassessed. Patient is alert, oriented x 3, equal unlabored respirations, skin warm/dry/pink. going to room 215 after report is given.. Vital Signs: 10/27 23:47 BP 139 / 78; Pulse 77; Resp 20; Temp 98.1(O); Pulse Ox 97% on R/A; Weight 101.15 kg bs2 (R); Height 5 ft. 0 in. (152.40 cm); Pain 11/25; 10/28 02:17 BP 114 / 64; Pulse 66; Resp 18; Pulse Ox 99% on R/A; lp1 03:04 BP 105 / 61; Pulse 64; Resp 18; Pulse Ox 95% on R/A; lp1 04:07 BP 125 / 75; Pulse 68; Resp 18; Pulse Ox 99% on R/A; lp1 05:58 BP 123 / 75; Pulse 72; Resp 18; Pulse Ox 95% on R/A; lp1 10/27 23:47 Body Mass Index 43.55 (101.15 kg, 152.40 cm) bs2 ED Course: 10/27 23:18 Patient arrived in ED. cf2 23:33 Triage completed. bs2 23:49 Arm band placed on right wrist. bs2 10/28 00:17 Ros Solis RN is Primary Nurse. lp1 00:49 Wild Lilly MD is Attending Physician. tw4 00:53 Inserted saline lock: 20 gauge in right antecubital area, using aseptic technique. lp1 Blood collected. 00:54 Patient has correct armband on for positive identification. Placed in gown. Pulse ox lp1 on. NIBP on. 02:08 CT Abd/Pelvis - IV Contrast Only In Process Unspecified. EDMS 03:03 Jefferson Mac MD is Hospitalizing Provider. tw4 03:06 Basic Metabolic Panel Sent. lp1 03:06 CBC with Diff Sent. lp1 03:06 Hepatic Function Sent. lp1 03:06 Lipase Sent. lp1 05:58 No provider procedures requiring assistance completed. lp1 05:59 Patient admitted, IV remains in place. lp1 07:13 NGT: inserted 14 Fr. via left nare. lp1 Administered Medications: 00:50 Drug: morphine 4 mg Route: IVP; Site: right antecubital; lp1 03:05 Follow up: Response: Pain is decreased lp1 00:50 Drug: Zofran (Ondansetron) 4 mg Route: IVP; Site: right antecubital; lp1 03:06 Follow up: Response: No adverse reaction lp1 04:05 Drug: morphine 4 mg Route: IVP; Site: right antecubital; lp1 07:40 Follow up: Response: No adverse reaction ll1 07:50 Drug: Zofran (Ondansetron) 4 mg Route: IVP; Site: left antecubital; ll1 Outcome: 03:03 Decision to Hospitalize by Provider. tw4 05:59 Admitted to ER Hold. Please see [facility] for further documentation. lp1 05:59 Condition: stable 05:59 Instructed on the need for admit. 08:20 Patient left the ED. ll1 Signatures: Dispatcher [employer] EDDE Ros Solis RN RN lp1 Wild Lilly MD MD tw4 Vandana Saucedo cf2 Santo Ceballos RN RN ll1 Sara dEuardo RN RN bs2 Corrections: (The following items were deleted from the chart) 10/27 23:28 Chief complaint: Patient states: pt tested covid positive yesterday bs2 bs2 23:28 Coronavirus screen: Vaccine status: Patient reports receiving the 2nd dose of the bs2 covid vaccine. Date May 07, 2020 maderna, Patient reports receiving the 1st dose of the Covid vaccine. Date April 11, 2020 chills, congestion, cough unrelated to allergies, difficulty breathing, fatigue, headache, nausea, shortness of breath, loss of taste or smell, pt was covid positive February of 2020, as well bs2 23:28 Ebola Screen: No symptoms or risks identified at this time. bs2 bs2 23:28 Initial Sepsis Screen: Does the patient meet any 2 criteria? RR > 20 per min. HR bs2 > 90 bpm. Does the patient have a suspected source of infection? No. Patient's initial sepsis screen is negative. 2 23:28 Risk Assessment: Do you want to hurt yourself or someone else? Patient reports no bs2 desire to harm self or others. 2 23:28 Onset of symptoms was October 27, 2020 bs2 2 23:28 Method Of Arrival: Ambulatory bs2 bs2 23:28 BP 149 / 92; Pulse 145bpm; Resp 23bpm; Pulse Ox 100% RA; Temp 98.7F Oral; 61.23 bs2 kg; Height 5 ft. 3 in.; BMI: 23.9; Pain 3/10; bs2 23:28 Acuity: KAROL 3 bs2 bs2 10/28 03:28 03:12 CORONAVIRUS+MR.LAB.BRZ drawn and sent. lp1 EDMS
[2020-10-28] MEDS: KCL 20 MEQ/100 mL IVPB 20 MEQ/100 ML BAG IV SCH ×2 (05:02→09:40)
[2020-10-28] MEDS: NA CHLORIDE 0.9% 1,000 ML IV SCH ×2 (05:02→16:15)
[2020-10-28] MEDS ORDERED: ACETAMINOPHEN 500 MG TAB PO PRN (05:02)
[2020-10-28] MEDS: PIPER/TAZO/NS 3.375gm 3.375 GM/100 ML BAG IVPB SCH ×2 (05:30→16:14)
--- NOTE | 2020-10-28 05:36 | P.HP ---
Certification for Inpatient Patient admitted to: Inpatient With expected LOS: <2 Midnights Patient will require the following post-hospital care: None Practitioner: I am a practitioner with admitting privileges, knowledge of patient current condition, hospital course, and medical plan of care. Services: Services provided to patient in accordance with Admission requirements found in Title 42 Section 412.3 of the Code of Federal Regulations Patient History Date of Service: 10/28/20 Reason for admission: SBO History of Present Illness: Ms. Novoa is a 65 yo F with HTN, hypothyroidism and Crohns who presents with nausea, vomiting, abdominal pain and distension. She reports she is also having some back pain. She had a small meal at 6pm yesterday and a small BM at 8pm last night. She has been hospitalized multiple times over the last few months for recurrent SBO. She is now following with Dr. Adair for her Crohns and her next appointment is Thursday. CT shows small bowel obstruction with transition point in the RLQ with similar appearnce to 07/27/2020 study, severe sigmoid colon diverticulosis and hepatomegaly. K 3.2. Allergies ciprofloxacin Allergy (Verified 07/12/20 22:34) Itching/Hives/Rash latex [Latex] Allergy (Verified 05/12/11 07:41) Itching/Hives/Rash Latex, Natural Rubber Allergy (Verified 06/07/20 05:52) Unknown metronidazole Allergy (Verified 07/12/20 22:34) Itching/Hives/Rash buspirone Adverse Reaction (Verified 07/12/20 22:35) Nausea/Vomiting Home Medications: Bupropion HCl [Wellbutrin] 75 mg PO BEDTIME 07/27/20 Cholecalciferol (Vitamin D3) [Vitamin D3] 5,000 unit PO DAILY 07/27/20 Ferrous Sulfate 325 mg PO BID 07/27/20 Levothyroxine Sodium 25 mcg PO DAILY 07/27/20 Lisinopril/Hydrochlorothiazide [Lisinopril-Hctz 10-12.5 mg Tab] 1 tab PO DAILY 07/27/20 Metformin HCl [Glucophage*] 1 tab PO DAILY AT SUPPER 07/27/20 Metoprolol Tartrate 1 tab PO BID 07/27/20 Sertraline [Zoloft*] 150 mg PO DAILY 07/27/20 buPROPion HCL [Wellbutrin*] 150 mg PO DAILY 07/27/20 predniSONE [Prednisone*] 20 mg PO DAILY 07/27/20 Mesalamine [Pentasa] 1,000 mg PO TID #130 capsule.er 08/03/20 predniSONE [Deltasone] 20 mg PO TID #25 tab 08/31/20 - Past Medical/Surgical History Diabetic: No -: HTN -: Prediabetes -: Hypothyroidism -: Depression -: Recurrent SBO -: GERD -: Bowel obstruction -: Psychosocial/ Personal History: Patient is . - Family History Father -: Cancer Mother -: Heart disease - Social History Smoking Status: Never smoker Alcohol use: No CD- Drugs: No Caffeine use: Yes Place of Residence: Home Review of Systems 10-point ROS is otherwise unremarkable Gastrointestinal: Nausea, Vomiting, Abdominal Pain, Distention Musculoskeletal: Back Pain Physical Examination - Physical Exam General: Alert, In no apparent distress HEENT: Atraumatic, PERRLA, Mucous membr. moist/pink, EOMI, Sclerae nonicteric Neck: Supple, 2+ carotid pulse no bruit, No LAD, Without JVD or thyroid abnormality Respiratory: Clear to auscultation bilaterally, Normal air movement Cardiovascular: Regular rate/rhythm, Normal S1 S2 Gastrointestinal: Normal bowel sounds, Soft and benign, No ascites, No masses, No rebound, No guarding, Tenderness Musculoskeletal: No tenderness Integumentary: No rashes Neurological: Normal gait, Normal speech, Normal strength at 5/5 x4 extr, Normal tone, Normal affect Lymphatics: No axilla or inguinal lymphadenopathy - Studies Laboratory Data (last 24 hrs) 10/28/20 00:50: WBC 11.00 H, Hgb 13.8, Hct 41.9, Plt Count 445 H 10/28/20 00:50: Sodium 140, Potassium 3.2 L, BUN 20 H, Creatinine 0.96, Glucose 107 H, Total Bilirubin 0.4, AST 11 L, ALT 17, Alkaline Phosphatase 131 H, Lipase 54 L Assessment and Plan - Problems (Diagnosis) (1) Small bowel obstruction Current Visit: No Status: Acute (2) Depression Current Visit: No Status: Chronic Qualifiers: Depression Type: unspecified Qualified Code(s): F32.9 - Major depressive disorder, single episode, unspecified (3) Hypertension Current Visit: No Status: Chronic Qualifiers: Hypertension type: primary hypertension Qualified Code(s): I10 - Essential (primary) hypertension (4) Hypothyroidism Current Visit: No Status: Chronic Qualifiers: Hypothyroidism type: unspecified Qualified Code(s): E03.9 - Hypothyroidism, unspecified (5) Prediabetes Current Visit: No Status: Chronic - Plan surgery consulted NPO, IV antibiotics, IVF hydration morphine and zofran PRN DVT ppx reconcile and continue home medications Discharge Plan: Home Plan to discharge in: 48 Hours - Advance Directives Does patient have a Living Will: No Does patient have a Durable POA for Healthcare: No - Code Status/Comfort Care Code Status Assessed: Yes (full code ) Critical Care: No Time Spent Managing Pts Care (In Minutes): 70
[2020-10-28] MEDS ORDERED: KCL 20 MEQ/100 mL IVPB 20 MEQ/100 ML BAG IV ONE (06:33)
[2020-10-28] MEDS ORDERED: NA CHLORIDE 0.9% 1,000 ML ONE (06:33)
[2020-10-28] MEDS ORDERED: PIPER/TAZO/NS 3.375gm 3.375 GM/100 ML BAG ONE (06:34)
[2020-10-28] MEDS: MORPHINE 2 MG/ML SYR IV PRN ×2 (07:15→18:28)
[2020-10-28] MEDS ORDERED: MORPHINE 2 MG/ML SYR ONE (07:23)
[2020-10-28] MEDS: INSULIN -REGULAR HUMAN 50 UNIT/0.5 ML ML SQ SCH ×4 (07:30→21:00)
[2020-10-28] MEDS: ONDANSETRON 4 MG/2 ML VIAL IV PRN ×2 (07:58→18:28)
[2020-10-28 08:07] VITALS: BMI 43.3
--- NOTE | 2020-10-28 10:45 | P.PN ---
Date of Service: 10/28/20 Patient is in her room She is still NPO. Will continue bowel rest and antibiotics.
--- NOTE | 2020-10-28 18:32 | CON ---
Date of Consultation: 10/28/2020 Brief History Of Present Illness: The patient is a 65-year-old female, known to me from previous admissions with small bowel obstruction, who in the interim has been diagnosed with confirmed Crohn disease via Dr. Adair. She also has a history of hypertension and hypothyroidism, who presented with nausea, vomiting, abdominal pain, distention consistent with bowel obstructions that she has had multiple in the past. Since being admitted and as is her typical course, she was treated medically and had significant improvement of symptoms. An NG-tube is in place. She no longer has any nausea, vomiting. She has had multiple bowel movements with significant relief of her abdominal distention, pain, and she essentially feels asymptomatic at this time. She has just initiated her Crohn treatment by her report and is due to follow up with Dr. Adair for ongoing treatment. Past Medical History: As above. Hypertension, hypothyroidism, Crohn disease, depression, bowel obstructions, GERD. Past Surgical History: Includes . Home Medications: Include Wellbutrin, vitamin D, ferrous sulfate, levothyroxine, lisinopril, hydrochlorothiazide, metformin, metoprolol, Zoloft, bupropion, prednisone, Pentasa, on occasion, but those were last given on 08/31/2020. Social History: She denies smoking, alcohol, or recreational drug use. Review of Systems: Ten-point review of systems other than HPI, denies. Physical Examination: Vital Signs: At the time of my examination; her BMI is 43.4. Her blood pressure 138/72, heart rate 73, respiratory rate 17, temperature 97.9, SpO2 94% on room air. General: She is awake, alert, oriented. Psychiatric: She is appropriate, conversive. HEENT: She is normocephalic. Sclerae anicteric. Mucous membranes are moist. Oropharynx is clear. Neck: Supple without JVD. Chest: Normal expansion and excursion. Cardiovascular: Regular rate and rhythm. Pulmonary: Clear to auscultation bilaterally. Abdomen: Soft, nontender, nondistended. No rebound or guarding. No focal peritonitis. She is obese generally. Extremities: No clubbing, cyanosis, or edema. Skin: Warm and dry. Laboratory Data: Reveals a white blood cell count of 11.0, hemoglobin 13.8, hematocrit of 41.9, platelet count was 445. Neutrophils are normal at 62%. Her sodium 140, potassium 3.2, chloride 107, carbon dioxide 26, BUN 20, creatinine 0.9, glucose was 107. Her total bilirubin was 0.4, direct component was 0.1, AST is 11, ALT 17, alkaline phosphatase 131, lipase is 54. COVID was negative. She had imaging performed, which included a CT of the abdomen and pelvis, which was read as small bowel obstruction with transition point in right lower quadrant is similar to July 27, 2020. Neoplasm at the site of obstruction is not excluded the absence of other causes, severe sigmoid colonic diverticulosis and hepatomegaly. Assessment And Plan: 1. This is a 65-year-old female, who comes in with recurrent small bowel obstruction right lower quadrant, likely ileocecal valve and history of Crohn disease. The etiology of her intermittent obstructions has not been completely elicited; however, it is believed to be due to Crohn disease versus a possible neoplastic process. Dr. Adair is working this up. I continued to await the confirmatory diagnosis to rule out a neoplastic process. 2. Continue medical management at this point with nonoperative management for her bowel obstruction. If she continues to improve, I recommend p.o. diet at that point and we will treat her nonoperatively going forward. 3. I have explained risks, benefits, and alternatives to the patient. She agrees to proceed as indicated. RODGER/ALIREZA Voice ID: [id number] Report ID: [id number] JIL
--- NOTE | 2020-10-28 22:25 | RAD REPORT ---
EXAM DESCRIPTION: CT Abdomen and Pelvis COMPARISON: CT abdomen pelvis July 27, 2020 CLINICAL HISTORY: [facility] MAIN ABD PAIN TECHNIQUE: CT of the abdomen and pelvis was acquired with IV contrast material. Coronal and sagitt al reconstructions were obtained. Automated exposure control was utilized on this examination as a dose lowering technique. FINDINGS: Lung bases: Clear. Liver: The liver measures 18.1 cm midclavicular line. Gallbladder and biliary: Normal gallbladder. Unremarkable biliary tree. Pancreas: Normal. Spleen: Normal. Adrenal glands: Normal adrenal glands. Kidneys: Small right renal cyst. Stomach and Small Bowel: Normal stomach. There are multiple dilated loops of small bowel measuring up to 4.7 cm with areas of bowel wall thickening. There is a transition point in the right lower quadra nt. Urinary bladder: Normal. Uterus and Adnexa: Normal. Colon and Appendix: Severe sigmoid colon diverticulosis. No evidence of appendicitis. Retroperitoneum and lymph nodes: Mild central mesenteric fat stranding. A few mesenteric lymph nodes are likely reactive. Vascular: Mild atherosclerosis. Peritoneal cavity: No ascites or free air. Musculoskeletal and soft tissues: Soft tissues are unremarkable. No aggressive bone lesions. No com pression fracture. ABDOMEN/PELVIS IMPRESSION 1. Small bowel obstruction with transition point in the right lower quad rant. This has a similar appearance to July 27, 2020. Neoplasm at the site of obstruction is not excl uded in the absence of other causes. 2. Severe sigmoid colon diverticulosis. 3. Hepatomegaly. Electronically signed by: Luis Fernando Cain MD 10/28/2020 2:26 AM CDT Due to temporary technical issues with the PACS/Fluency reporting system, reports are being signed by the in house radiologists without review as a courtesy to insure prompt reporting. The interpreting radiologist is fully responsible for the content of the report.
[2020-10-29] MEDS: PIPER/TAZO/NS 3.375gm 3.375 GM/100 ML BAG IVPB SCH ×3 (00:15→17:04)
[2020-10-29] MEDS: NA CHLORIDE 0.9% 1,000 ML IV SCH ×2 (00:15→08:41)
[2020-10-29 05:54] LABS: Albumin 2.6 g/dL (3.4-5.0); Bilirubin Total 0.4 mg/dL (0.2-1.0); Magnesium 1.7 mg/dL (1.8-2.4); Phosphorus 3.3 mg/dL (2.5-4.9); Potassium 4.1 mmol/L (3.5-5.1); Protein, Total 5.6 g/dL (6.4-8.2)
[2020-10-29 06:05] LABS: Absolute Lymphocytes (CBC) 2.4 K/uL (0.7-4.9); Basophils % 0.5 % (0-1.3); Hematocrit 35.4 % (36.0-45.0); Lymphocytes % 39.9 % (15.3-44.8); MPV 7.7 fL (7.6-11.3); RBC Red Blood Cell Count 4.04 M/uL (3.86-4.86)
[2020-10-29] MEDS: INSULIN -REGULAR HUMAN 50 UNIT/0.5 ML ML SQ SCH ×4 (07:20→21:00)
[2020-10-29] MEDS ORDERED: MAGNESIUM SULFATE 1 gm IVPB 1 GM/100 ML BAG IV ONE (09:00)
--- NOTE | 2020-10-29 09:55 | P.PN ---
Subjective Date of Service: 10/29/20 Chief Complaint: SBO Subjective: Improving (Patient feels well, no pain, + BM) Physical Examination - Vital Signs Temperature: 97.4 F Blood Pressure: 121/63 Pulse: 69 Respirations: 18 Pulse Ox (%): 93 - Physical Exam General: Alert, In no apparent distress, Cooperative Respiratory: Normal air movement Cardiovascular: Regular rate/rhythm Gastrointestinal: Soft and benign, Non-distended, No tenderness, No masses, No rebound, No guarding Assessment And Plan - Current Problems (Diagnosis) (1) Crohn's disease Current Visit: Yes Status: Acute Plan: - continue medical management - keep NGT for today, likely DC tomorrow if output drops - serial exams
--- NOTE | 2020-10-29 14:00 | P.PN ---
Subjective Date of Service: 10/29/20 Chief Complaint: SBO Subjective: No new changes Review of Systems 10-point ROS is otherwise unremarkable Physical Examination - Vital Signs Temperature: 97.5 F Blood Pressure: 125/64 Pulse: 78 Respirations: 18 Pulse Ox (%): 97 - Physical Exam General: Alert, In no apparent distress HEENT: Atraumatic, PERRLA, EOMI Neck: Supple, JVD not distended Respiratory: Clear to auscultation bilaterally, Normal air movement Cardiovascular: Regular rate/rhythm, Normal S1 S2 Gastrointestinal: Normal bowel sounds, No tenderness Musculoskeletal: No tenderness Integumentary: No rashes Neurological: Normal speech, Normal tone, Normal affect Lymphatics: No axilla or inguinal lymphadenopathy Assessment & Plan - Problems (Diagnosis) (1) Small bowel obstruction Current Visit: No Status: Acute Plan: continue ng to suction. Possible clamp and po trial tomorrow. (2) Crohn's disease Current Visit: Yes Status: Acute Plan: Patient is stable Qualifiers: Gastrointestinal tract location: unspecified location (3) Hypertension Current Visit: No Status: Chronic Plan: stable at this time. Will give the patient hydralazine if elevated Qualifiers: Hypertension type: primary hypertension Qualified Code(s): I10 - Essential (primary) hypertension Discharge Plan: Home Plan to discharge in: 24 Hours - Code Status/Comfort Care Code Status Assessed: No Code Status: Full Code Physician Review: Patient Assessed, Agree with Above Assessment and Plan Critical Care: No Time Spent Managing Pts Care (In Minutes): 20
[2020-10-29] MEDS: D5 0.45 NS 1,000 ML IV SCH (17:04)
[2020-10-30] MEDS: PIPER/TAZO/NS 3.375gm 3.375 GM/100 ML BAG IVPB SCH ×3 (01:05→16:17)
[2020-10-30] MEDS: D5 0.45 NS 1,000 ML IV SCH ×3 (02:07→23:00)
[2020-10-30] MEDS: INSULIN -REGULAR HUMAN 50 UNIT/0.5 ML ML SQ SCH ×4 (07:30→21:00)
[2020-10-30] MEDS ORDERED: MAGNESIUM SULFATE 1 gm IVPB 1 GM/100 ML BAG IV ONE (09:00)
--- NOTE | 2020-10-30 11:27 | P.PN ---
Subjective Date of Service: 10/30/20 Chief Complaint: SBO Subjective: No new changes (still has significant drainaged from her NG tube.) Review of Systems 10-point ROS is otherwise unremarkable Gastrointestinal: Other (difficulty with the NG tube. ) Physical Examination - Vital Signs Temperature: 96.6 F Blood Pressure: 137/66 Pulse: 72 Respirations: 18 Pulse Ox (%): 94 - Physical Exam General: Alert, In no apparent distress HEENT: Atraumatic, PERRLA, Other (ng tube in place), EOMI Neck: Supple, JVD not distended Respiratory: Clear to auscultation bilaterally, Normal air movement Cardiovascular: Regular rate/rhythm, Normal S1 S2 Gastrointestinal: Normal bowel sounds, No tenderness Musculoskeletal: No tenderness Integumentary: No rashes Neurological: Normal speech, Normal tone, Normal affect Lymphatics: No axilla or inguinal lymphadenopathy Assessment & Plan - Problems (Diagnosis) (1) Small bowel obstruction Current Visit: No Status: Acute Plan: continue ng to suction. Possible clamp and po trial tomorrow. 10/30 Continue ng tube to suction. Will consult Dr. Adair (2) Crohn's disease Current Visit: Yes Status: Acute Plan: Patient is stable Qualifiers: Gastrointestinal tract location: unspecified location (3) Hypertension Current Visit: No Status: Chronic Plan: stable at this time. Will give the patient hydralazine if elevated Qualifiers: Hypertension type: primary hypertension Qualified Code(s): I10 - Essential (primary) hypertension Discharge Plan: Home Plan to discharge in: Greater than 2 days - Code Status/Comfort Care Code Status Assessed: No Physician Review: Patient Assessed, Agree with Above Assessment and Plan Critical Care: No Time Spent Managing Pts Care (In Minutes): 20
--- NOTE | 2020-10-30 11:48 | P.PN ---
Subjective Date of Service: 10/30/20 Chief Complaint: SBO Subjective: Improving (patient feels well generally but has some bloating in epigastrium) Physical Examination - Vital Signs Temperature: 96.6 F Blood Pressure: 137/66 Pulse: 72 Respirations: 18 Pulse Ox (%): 94 - Physical Exam General: Alert, In no apparent distress, Cooperative Respiratory: Clear to auscultation bilaterally Gastrointestinal: Soft and benign, No ascites, No tenderness, No masses, No rebound, No guarding, Distended (minimal epigastric fullness, non-tender) Assessment And Plan - Current Problems (Diagnosis) (1) Crohn's disease Current Visit: Yes Status: Acute Plan: - continue medical management - keep NGT for today, likely DC tomorrow if output drops - serial exams - Dr. Adair recs pending Qualifiers: Gastrointestinal tract location: unspecified location Physician Review: Patient Assessed, Agree with Above Assessment and Plan
[2020-10-30] MEDS: MORPHINE 2 MG/ML SYR IV PRN (12:03)
[2020-10-30] MEDS: METHYLPREDNISOLONE 125 MG INJ IV SCH ×2 (13:22→19:42)
[2020-10-30] MEDS ORDERED: METHYLPRED NA SUC 80 MG in NA CHLORIDE 0.9% 100 ML IV SCH (21:00)
[2020-10-31] MEDS: PIPER/TAZO/NS 3.375gm 3.375 GM/100 ML BAG IVPB SCH ×3 (00:23→17:57)
[2020-10-31] MEDS: MORPHINE 2 MG/ML SYR IV PRN (00:30)
[2020-10-31] MEDS: D5 0.45 NS 1,000 ML IV SCH ×2 (05:37→17:57)
[2020-10-31] MEDS: INSULIN -REGULAR HUMAN 50 UNIT/0.5 ML ML SQ SCH ×4 (07:30→21:00)
[2020-10-31 08:03] LABS: Absolute Lymphocytes (CBC) 1.4 K/uL (0.7-4.9); Basophils % 0.2 % (0-1.3); Hematocrit 36.5 % (36.0-45.0); Lymphocytes % 23.6 % (15.3-44.8); MPV 7.3 fL (7.6-11.3); RBC Red Blood Cell Count 4.21 M/uL (3.86-4.86)
[2020-10-31 08:13] LABS: BUN Blood Urea Nitrogen 6 mg/dL (7-18); Bicarbonate 28 mmol/L (21-32); Glucose Level 110 mg/dL (74-106); Potassium 3.3 mmol/L (3.5-5.1); Sodium Level 144 mmol/L (136-145)
[2020-10-31] MEDS: METHYLPREDNISOLONE 125 MG INJ IV SCH ×2 (09:40→20:12)
[2020-10-31] MEDS ORDERED: POTASSIUM 25 MEQ EFFERV TAB PO ONE ×2 (10:00→21:09)
--- NOTE | 2020-10-31 10:53 | P.PN ---
Subjective Date of Service: 10/31/20 Chief Complaint: SBO Subjective: Improving Review of Systems 10-point ROS is otherwise unremarkable Gastrointestinal: Other (had a bowel movement) Physical Examination - Vital Signs Temperature: 97.5 F Blood Pressure: 146/69 Pulse: 72 Respirations: 18 Pulse Ox (%): 98 - Physical Exam General: Alert, In no apparent distress HEENT: Atraumatic, PERRLA, EOMI Neck: Supple, JVD not distended Respiratory: Clear to auscultation bilaterally, Normal air movement Cardiovascular: Regular rate/rhythm, Normal S1 S2 Gastrointestinal: Normal bowel sounds, No tenderness Musculoskeletal: No tenderness Integumentary: No rashes Neurological: Normal speech, Normal tone, Normal affect Lymphatics: No axilla or inguinal lymphadenopathy Assessment & Plan - Problems (Diagnosis) (1) Small bowel obstruction Current Visit: No Status: Acute Plan: continue ng to suction. Possible clamp and po trial tomorrow. 10/31 Improving on nasal suction. She was going to have humira injection on Thursday. She most likely will be seen by Dr. Adair before discharge (2) Crohn's disease Current Visit: Yes Status: Acute Plan: Patient is stable Qualifiers: Gastrointestinal tract location: unspecified location (3) Hypertension Current Visit: No Status: Chronic Plan: stable at this time. Will give the patient hydralazine if elevated Qualifiers: Hypertension type: primary hypertension Qualified Code(s): I10 - Essential (primary) hypertension Discharge Plan: Home Plan to discharge in: 24 Hours - Code Status/Comfort Care Code Status Assessed: No Physician Review: Patient Assessed, Agree with Above Assessment and Plan Critical Care: No Time Spent Managing Pts Care (In Minutes): 20
[2020-10-31] MEDS: KCL 20 MEQ/100 mL IVPB 20 MEQ/100 ML BAG IV SCH ×2 (11:17→14:37)
--- NOTE | 2020-10-31 18:17 | P.PN ---
Subjective Date of Service: 10/31/20 Chief Complaint: SBO Subjective: Improving (no pain, +BM, no other complaints) Physical Examination - Vital Signs Temperature: 97.3 F Blood Pressure: 141/72 Pulse: 70 Respirations: 18 Pulse Ox (%): 95 - Physical Exam General: Alert, In no apparent distress, Cooperative Gastrointestinal: Soft and benign, Non-distended, No ascites, No tenderness, No masses, No rebound Assessment And Plan - Current Problems (Diagnosis) (1) Crohn's disease Current Visit: Yes Status: Acute Plan: - continue medical management - keep NGT for today, likely DC tomorrow if output drops - serial exams - Dr. Mana frazier pending - steroid pulse - ambulate with assist Qualifiers: Gastrointestinal tract location: unspecified location Physician Review: Patient Assessed, Agree with Above Assessment and Plan
[2020-10-31 21:13] VITALS: O2SAT 96
[2020-11-01] MEDS: PIPER/TAZO/NS 3.375gm 3.375 GM/100 ML BAG IVPB SCH ×3 (00:35→18:55)
[2020-11-01] MEDS: D5 0.45 NS 1,000 ML IV SCH ×3 (04:40→21:38)
[2020-11-01 05:50] LABS: Absolute Lymphocytes (CBC) 1.6 K/uL (0.7-4.9); Basophils % 0.6 % (0-1.3); Hematocrit 33.8 % (36.0-45.0); Lymphocytes % 19.6 % (15.3-44.8); MPV 7.6 fL (7.6-11.3); RBC Red Blood Cell Count 3.93 M/uL (3.86-4.86)
[2020-11-01 05:59] LABS: BUN Blood Urea Nitrogen 7 mg/dL (7-18); Bicarbonate 26 mmol/L (21-32); Glucose Level 118 mg/dL (74-106); Potassium 3.6 mmol/L (3.5-5.1); Sodium Level 142 mmol/L (136-145)
[2020-11-01] MEDS: INSULIN -REGULAR HUMAN 50 UNIT/0.5 ML ML SQ SCH ×4 (07:30→21:00)
[2020-11-01] MEDS ORDERED: POTASSIUM 25 MEQ EFFERV TAB PO ONE (09:00)
[2020-11-01] MEDS: METHYLPREDNISOLONE 125 MG INJ IV SCH ×2 (10:52→21:28)
--- NOTE | 2020-11-01 14:19 | P.PN ---
Subjective Date of Service: 11/01/20 Chief Complaint: SBO Subjective: Improving (pain free, no complaints) Physical Examination - Vital Signs Temperature: 97.3 F Blood Pressure: 158/72 Pulse: 62 Respirations: 16 Pulse Ox (%): 98 - Physical Exam General: Alert, In no apparent distress, Cooperative Respiratory: Diminished Gastrointestinal: Soft and benign, Non-distended, No ascites, No tenderness, No masses, No rebound, No guarding Assessment And Plan - Current Problems (Diagnosis) (1) Crohn's disease Current Visit: Yes Status: Acute Plan: - continue medical management - keep NGT for today, likely DC tomorrow if output drops - serial exams - Dr. Mana frazier pending - steroid pulse - ambulate with assist - advance diet Qualifiers: Gastrointestinal tract location: unspecified location Physician Review: Patient Assessed, Agree with Above Assessment and Plan
--- NOTE | 2020-11-01 16:50 | P.PN ---
Subjective Date of Service: 11/01/20 Chief Complaint: SBO Subjective: Improving ng tube has been removed. tolerating a liquid diet. Review of Systems 10-point ROS is otherwise unremarkable Physical Examination - Vital Signs Temperature: 97.3 F Blood Pressure: 158/72 Pulse: 62 Respirations: 16 Pulse Ox (%): 98 - Physical Exam General: Alert, In no apparent distress HEENT: Atraumatic, PERRLA, EOMI Neck: Supple, JVD not distended Respiratory: Clear to auscultation bilaterally, Normal air movement Cardiovascular: Regular rate/rhythm, Normal S1 S2 Gastrointestinal: Normal bowel sounds, No tenderness Musculoskeletal: No tenderness Integumentary: No rashes Neurological: Normal speech, Normal tone, Normal affect Lymphatics: No axilla or inguinal lymphadenopathy Assessment & Plan - Problems (Diagnosis) (1) Small bowel obstruction Current Visit: No Status: Acute Plan: continue ng to suction. Possible clamp and po trial tomorrow. 11/01 NG has been removed. Will advance the diet as tolerated. (2) Crohn's disease Current Visit: Yes Status: Acute Plan: Patient is stable 11/01 discussed the patient with Dr. Adair. She is improving on steroids. will consider discharge tomorrow. She can get her outpatient humira injection tomorrow. A delay till Thursday is also acceptable. Qualifiers: Gastrointestinal tract location: unspecified location (3) Hypertension Current Visit: No Status: Chronic Plan: stable at this time. Will give the patient hydralazine if elevated Qualifiers: Hypertension type: primary hypertension Qualified Code(s): I10 - Essential (primary) hypertension Discharge Plan: Home Plan to discharge in: 24 Hours - Code Status/Comfort Care Code Status Assessed: No Physician Review: Patient Assessed, Agree with Above Assessment and Plan Critical Care: No Time Spent Managing Pts Care (In Minutes): 20
[2020-11-02] MEDS: PIPER/TAZO/NS 3.375gm 3.375 GM/100 ML BAG IVPB SCH ×2 (00:48→10:30)
[2020-11-02 05:47] LABS: Absolute Lymphocytes (CBC) 1.3 K/uL (0.7-4.9); Basophils % 0.3 % (0-1.3); Hematocrit 34.1 % (36.0-45.0); Lymphocytes % 21.2 % (15.3-44.8); MPV 7.3 fL (7.6-11.3)
[2020-11-02 05:56] LABS: Potassium 4.4 mmol/L (3.5-5.1)
[2020-11-02] MEDS: INSULIN -REGULAR HUMAN 50 UNIT/0.5 ML ML SQ SCH (07:30)
--- NOTE | 2020-11-02 09:43 | P.PN ---
Subjective Date of Service: 11/02/20 Chief Complaint: SBO Subjective: Improving (tolerating diet, normal bowel function, no pain no other complaints) Physical Examination - Vital Signs Temperature: 96.9 F Blood Pressure: 162/76 Pulse: 61 Respirations: 19 Pulse Ox (%): 98 - Physical Exam General: Alert, In no apparent distress, Oriented x3 Cardiovascular: Regular rate/rhythm Gastrointestinal: Soft and benign, No tenderness, No masses, No rebound, No guarding Assessment And Plan - Current Problems (Diagnosis) (1) Crohn's disease Current Visit: Yes Status: Acute Plan: - continue medical management - serial exams - Dr. Mana frazier pending - steroid pulse - ambulate with assist - DC home from surgical standpoint Qualifiers: Gastrointestinal tract location: unspecified location Physician Review: Patient Assessed, Agree with Above Assessment and Plan
[2020-11-02] MEDS: METHYLPREDNISOLONE 125 MG INJ IV SCH (10:30)
--- NOTE | 2020-11-02 10:51 | P.DS ---
Admission Date: 10/28/20 Discharge Date: 11/02/20 Disposition: ROUTINE DISCHARGE Discharge Condition: GOOD Reason for Admission: SBO - Problems (1) Small bowel obstruction Current Visit: No Status: Acute (2) Crohn's disease Current Visit: Yes Status: Acute Qualifiers: Gastrointestinal tract location: unspecified location (3) Hypertension Current Visit: No Status: Chronic Qualifiers: Hypertension type: primary hypertension Qualified Code(s): I10 - Essential (primary) hypertension Brief History of Present Illness: Patient presented with small bowel obstruction. Placed on an ng tube. Kept npo. Hospital Course: Patient is doing better started on steroids. Discussed the patient with Dr. Adair and Dr. Soriano. NG tube was dc. She is tolerating a soft diet and is has been having regular bowel movement. Will have her follow up with Dr. Adair for her humira. Will start her on prednisone with a weekly taper 40-30-20-10 then 5mg continuously. Thank you for allowing me to take part in her care. Vital Signs/Physical Exam: Temp Pulse Resp BP Pulse Ox 96.9 F 61 19 162/76 H 98 11/02/20 09:42 11/02/20 09:42 11/02/20 09:42 11/02/20 09:42 11/02/20 09:42 Laboratory Data at Discharge: WBC 6.20 K/uL (4.3-10.9) D 11/02/20 04:55 Hgb 11.2 g/dL (12.0-15.0) L 11/02/20 04:55 Hct 34.1 % (36.0-45.0) L 11/02/20 04:55 Plt Count 386 K/uL (152-406) 11/02/20 04:55 Sodium 144 mmol/L (136-145) 11/02/20 04:55 Potassium 4.4 mmol/L (3.5-5.1) 11/02/20 04:55 BUN 6 mg/dL (7-18) L 11/02/20 04:55 Creatinine 0.73 mg/dL (0.55-1.3) 11/02/20 04:55 Glucose 132 mg/dL (74-106) H 11/02/20 04:55 Phosphorus 3.3 mg/dL (2.5-4.9) 10/29/20 05:03 Magnesium 1.8 mg/dL (1.8-2.4) 10/30/20 05:32 Total Bilirubin 0.4 mg/dL (0.2-1.0) 10/29/20 05:03 AST 13 U/L (15-37) L 10/29/20 05:03 ALT 17 U/L (12-78) 10/29/20 05:03 Alkaline Phosphatase 140 U/L (45-117) H 10/29/20 05:03 Lipase 54 U/L (73-393) L 10/28/20 00:50 Home Medications: Bupropion HCl [Wellbutrin] 75 mg PO BEDTIME 07/27/20 Cholecalciferol (Vitamin D3) [Vitamin D3] 5,000 unit PO DAILY 07/27/20 Ferrous Sulfate 325 mg PO BID 07/27/20 Levothyroxine Sodium 25 mcg PO DAILY 07/27/20 Lisinopril/Hydrochlorothiazide [Lisinopril-Hctz 10-12.5 mg Tab] 1 tab PO DAILY 07/27/20 Metformin HCl [Glucophage*] 1 tab PO DAILY AT SUPPER 07/27/20 Metoprolol Tartrate 1 tab PO DAILY 07/27/20 Sertraline [Zoloft*] 150 mg PO DAILY 07/27/20 buPROPion HCL [Wellbutrin*] 150 mg PO DAILY 07/27/20 Adalimumab [Humira 40 MG/0.8 ML*] 40 mg SQ Q14D 10/28/20 Mesalamine [Pentasa*] 500 mg PO BID 10/28/20 Mesalamine [Pentasa] 500 mg PO BID 10/28/20 predniSONE [Deltasone] 10 mg PO DAILY 28 Days #75 tab 11/02/20 New Medications: predniSONE [Deltasone] 10 mg PO DAILY 28 Days #75 tab Followup: Neris CUMMINGSOT [Primary Care Provider] - Ash Adair MD [ACTIVE - CAN ADMIT] -
[2020-11-02 12:46] VITALS: BP 141/61; TEMP 97
== END 2020-11-02 12:26 | disposition home or self-care (01) | DRG 389 ==
LOC: ER 23:11 → ERHOLD 10-28 05:20 → 2ND 10-28 07:32
PROVIDERS: ADMIT Internal Medicine; ATTEND Internal Medicine
DX: K56.609 Unspecified intestinal obstruction, unspecified as to partial versus complete obstruction (principal); K50.90 Crohn's disease, unspecified, without complications; I10 Essential (primary) hypertension; E03.9 Hypothyroidism, unspecified; F32.9 Major depressive disorder, single episode, unspecified; Z91.040 Latex allergy status; Z20.822 Contact with and (suspected) exposure to COVID-19
CPT/HCPCS: 36415; 74177; 80048; 80053; 80076; 82565; 82947; 83690; 83735; 84100; 84132; 85025; 94760; 99285; J2270; J2405; J2543; J2930; J3475; J3480; J7030; J7799; Q9967; U0003

== ENCOUNTER 2020-12-09 16:30 | Inpatient (IN) | payer BC ==
[2020-12-09] MEDS ORDERED: ONDANSETRON 4 MG/2 ML VIAL ONE (17:25)
[2020-12-09] MEDS ORDERED: FAMOTIDINE 20 MG/2 ML VIAL IV ONE (17:25)
[2020-12-09] MEDS ORDERED: MORPHINE 2 MG/ML SYR ONE ×2 (17:25→19:47)
--- NOTE | 2020-12-09 17:30 | RAD REPORT ---
EXAM DESCRIPTION: RAD - Chest Single View - 12/09/2020 5:20 pm CLINICAL HISTORY: ABDOMINAL DISTENTION Chest pain. COMPARISON: Abdomen 1 View (KUB) dated 07/31/2020; Abdomen 1 View (KUB) dated 07/28/2020; Abdomen 1 Vi ew (KUB) dated 07/16/2020; Abdomen 1 View (KUB) dated 07/15/2020 FINDINGS: Portable technique limits examination quality. The lungs are grossly clear. The heart is normal in size. No displaced fractures. IMPRESSION: No acute intrathoracic process suspected.
[2020-12-09 17:33] LABS: Absolute Lymphocytes (CBC) 1.6 K/uL (0.7-4.9); Basophils % 0.5 % (0-1.3); Hematocrit 40.8 % (36.0-45.0); Lymphocytes % 22.4 % (15.3-44.8); MPV 6.9 fL (7.6-11.3); Protime INR 0.93
[2020-12-09 17:48] LABS: ALT/SGPT 27 U/L (12-78); AST/SGOT 13 U/L (15-37); Albumin 2.7 g/dL (3.4-5.0); Alkaline Phosphatase 113 U/L (45-117); BUN Blood Urea Nitrogen 13 mg/dL (7-18); Bicarbonate 30 mmol/L (21-32); Bilirubin Direct 0.2 mg/dL (0-0.2); Bilirubin Total 0.4 mg/dL (0.2-1.0); Glucose Level 132 mg/dL (74-106); Lipase 55 U/L (73-393); Magnesium 1.9 mg/dL (1.8-2.4); NT PRO-BNP 200 pg/mL (<125); Potassium 3.8 mmol/L (3.5-5.1); Protein, Total 6.5 g/dL (6.4-8.2); Sodium Level 142 mmol/L (136-145); Troponin (Emerg Dept Use Only) < 0.02 ng/mL (0.0-0.045)
--- NOTE | 2020-12-09 17:56 | RAD REPORT ---
EXAM DESCRIPTION: CTAbdomen Pelvis W Contrast - 12/09/2020 5:44 pm CLINICAL HISTORY: Abdominal pain. ABD PAIN COMPARISON: Abdomen Pelvis W Contrast dated 10/28/2020; Abdomen Pelvis W Contrast dated 07/27/2020 ; Abdomen Pelvis W Contrast dated 07/12/2020; Abdomen Pelvis W Contrast dated 06/10/2020 TECHNIQUE: Biphasic CT imaging of the abdomen and pelvis was performed with 100 ml non-ionic IV cont rast. All CT scans are performed using dose optimization technique as appropriate and may include automated exposure control or mA/KV adjustment according to patient size. FINDINGS: The lung bases are clear. The liver, spleen, pancreas, adrenal glands and kidneys are within normal limits. 17 mm benign cyst r ight kidney noted. Moderate small bowel dilatation is seen in the left aspect the abdomen extending inferiorly compatibl e with mechanical small bowel obstruction. Small bowel loops are dilated up to 5 cm in transverse dim ension. There is abrupt point transition seen where soft tissue is noted in the lower abdomen (image 64/95). Sigmoid diverticulosis is present without diverticulitis. No free intraperitoneal air. No abs cess seen. No evidence of significant lymphadenopathy. Small fat containing umbilical hernia. No suspicious bony findings. IMPRESSION: Moderate mechanical small-bowel obstruction is present as detailed above.
--- NOTE | 2020-12-09 18:25 | EDPHYS ---
Physician Documentation [facility] Name: Kindra Novoa Age: 65 yrs Sex: Female : 1955 Arrival Date: 12/09/2020 Time: 16:31 Bed 16 Private MD: ED Physician Esa Swain HPI: 12/09 18:14 This 65 yrs old Female presents to ER via Ambulatory with complaints of mingo Abdominal Pain, Vomiting. 18:14 The patient presents to the emergency department with nausea, abdominal pain, of the mingo right upper quadrant and left upper quadrant. Onset: The symptoms/episode began/occurred 2 day(s) ago. Possible causes: flare up of bowel problem, Crohn's disease. The symptoms are aggravated by movement, pressure, food , The symptoms are alleviated by nothing. Associated signs and symptoms: Pertinent positives: abdominal pain, nausea. Severity of symptoms: At their worst the symptoms were moderate in the emergency department the symptoms are unchanged. The patient has experienced similar episodes in the past, multiple times. Historical: - Allergies: 16:50 buspirone; ll1 16:50 Ciprofloxacin; ll1 16:50 Flagyl; ll1 16:50 Latex, Natural Rubber; ll1 - Home Meds: 17:31 bupropion HCl 150 mg Oral Tb24 once daily [Active]; bupropion HCl 75 mg Oral tab jw6 nightly [Active]; cholecalciferol (vitamin D3) 5,000 unit Oral cap daily [Active]; ferrous sulfate 325 mg (65 mg iron) Oral tab daily [Active]; Humira Pen subcutaneous [Active]; levothyroxine 25 mcg tab 1 tab once daily [Active]; lisinopril-hydrochlorothiazide 10-12.5 mg Oral tab 1 tab once daily [Active]; metformin 500 mg Oral tr24 1 tab once daily [Active]; metoprolol tartrate 50 mg Oral tab 1 tab 2 times per day [Active]; Pentasa Oral [Active]; sertraline 50 mg Oral tab 1 tab once daily [Active]; sertraline 100 mg Oral tab 1 tab nightly [Active]; - PMHx: 16:50 Colitis; Hypertension; Depression; Crohn's Disease; Hypothyroidism; Insulin Resistance; ll1 - Immunization history:: Client reports having NOT received the Covid vaccine. - Social history:: Smoking status: Patient denies any tobacco usage or history of. ROS: 18:15 Constitutional: Negative for fever, chills, and weight loss, Eyes: Negative for injury, mingo pain, redness, and discharge, ENT: Negative for injury, pain, and discharge, Neck: Negative for injury, pain, and swelling, Cardiovascular: Negative for chest pain, palpitations, and edema, Respiratory: Negative for shortness of breath, cough, wheezing, and pleuritic chest pain, Back: Negative for injury and pain, : Negative for injury, bleeding, discharge, and swelling, MS/Extremity: Negative for injury and deformity, Skin: Negative for injury, rash, and discoloration, Neuro: Negative for headache, weakness, numbness, tingling, and seizure. 18:15 Abdomen/GI: Positive for abdominal pain, nausea and vomiting, of the right upper quadrant and left upper quadrant. Exam: 18:15 Constitutional: This is a well developed, well nourished patient who is awake, alert, mingo and in no acute distress. Head/Face: Normocephalic, atraumatic. Eyes: Pupils equal round and reactive to light, extra-ocular motions intact. Lids and lashes normal. Conjunctiva and sclera are non-icteric and not injected. Cornea within normal limits. Periorbital areas with no swelling, redness, or edema. ENT: Nares patent. No nasal discharge, no septal abnormalities noted. Tympanic membranes are normal and external auditory canals are clear. Oropharynx with no redness, swelling, or masses, exudates, or evidence of obstruction, uvula midline. Mucous membranes moist. Neck: Trachea midline, no thyromegaly or masses palpated, and no cervical lymphadenopathy. Supple, full range of motion without nuchal rigidity, or vertebral point tenderness. No Meningismus. Chest/axilla: Normal chest wall appearance and motion. Nontender with no deformity. No lesions are appreciated. Cardiovascular: Regular rate and rhythm with a normal S1 and S2. No gallops, murmurs, or rubs. Normal PMI, no JVD. No pulse deficits. Respiratory: Lungs have equal breath sounds bilaterally, clear to auscultation and percussion. No rales, rhonchi or wheezes noted. No increased work of breathing, no retractions or nasal flaring. Back: No spinal tenderness. No costovertebral tenderness. Full range of motion. Female : Normal external genitalia. Skin: Warm, dry with normal turgor. Normal color with no rashes, no lesions, and no evidence of cellulitis. MS/ Extremity: Pulses equal, no cyanosis. Neurovascular intact. Full, normal range of motion. Neuro: Awake and alert, GCS 15, oriented to person, place, time, and situation. Cranial nerves II-XII grossly intact. Motor strength 5/5 in all extremities. Sensory grossly intact. Cerebellar exam normal. Normal gait. Psych: Awake, alert, with orientation to person, place and time. Behavior, mood, and affect are within normal limits. 18:15 Abdomen/GI: Inspection: distension, that is moderate, Bowel sounds: active, Palpation: mild abdominal tenderness, in the right upper quadrant and left upper quadrant, Liver: no appreciated palpable abnormalities, Hernia: not appreciated. 18:43 ECG was reviewed by the Attending Physician. [facility] Vital Signs: 16:51 BP 126 / 79; Pulse 89; Resp 17; Temp 97.4; Pulse Ox 97% on R/A; Weight 105.23 kg; ll1 Height 5 ft. 0 in. (152.40 cm); Pain 10/10; 17:27 BP 121 / 82; Pulse 78; Resp 22; Pulse Ox 97% on R/A; jw6 19:30 BP 112 / 79; Pulse 71; Resp 18; Temp 97.2; Pulse Ox 98% ; Pain 8/10; dc2 20:00 BP 137 / 75; Pulse 65; Resp 18; Pulse Ox 96% ; Pain 3/10; dc2 21:00 BP 142 / 81; Pulse 68; Resp 18; Pulse Ox 96% ; Pain 3/10; dc2 22:30 BP 139 / 76; Pulse 71; Resp 17; Temp 98.0; Pulse Ox 98% ; Pain 4/10; dc2 16:51 Body Mass Index 45.31 (105.23 kg, 152.40 cm) ll1 MDM: 16:53 Patient medically screened. [facility] 18:18 Differential diagnosis: Nonspecific abd pain, gastritis, cholecystitis, pancreatitis, mingo diverticulitis. Data reviewed: vital signs, nurses notes, lab test result(s), EKG, radiologic studies, CT scan, plain films. Data interpreted: internet security specialist: not applicable for this patient encounter. rate is 78 beats/min, rhythm is regular. Test interpretation: by ED physician or midlevel provider: ECG, plain radiologic studies. Counseling: I had a detailed discussion with the patient and/or guardian regarding: the historical points, exam findings, and any diagnostic results supporting the discharge/admit diagnosis, lab results, radiology results, the need for further work-up and treatment in the hospital. 12/09 16:55 Order name: Basic Metabolic Panel; Complete Time: 17:51 [facility] 12/09 16:55 Order name: CBC with Diff; Complete Time: 17:51 12/09 16:55 Order name: LFT's; Complete Time: 17:51 mingo 12/09 16:55 Order name: Magnesium; Complete Time: 17:51 [facility] 12/09 16:55 Order name: NT PRO-BNP; Complete Time: 17:51 12/09 16:55 Order name: PT-INR; Complete Time: 17:51 [facility] 12/09 16:55 Order name: Troponin (emerg Dept Use Only); Complete Time: 17:51 [facility] 12/09 16:55 Order name: XRAY Chest (1 view); Complete Time: 17:51 12/09 16:55 Order name: Lipase; Complete Time: 17:51 [facility] 12/09 16:55 Order name: Urine Culture [facility] 12/09 16:55 Order name: CT Abd/Pelvis - IV Contrast Only; Complete Time: 18:13 12/09 16:55 Order name: Lactate; Complete Time: 17:51 [facility] 12/09 19:21 Order name: COVID-19 SARS RT PCR (Document "Date of Onset" if Symptomatic) tt3 12/09 21:19 Order name: COVID-19/FLU A+B/RSV EDMS 12/09 16:55 Order name: EKG; Complete Time: 16:56 12/09 16:55 Order name: Cardiac monitoring; Complete Time: 17:14 [facility] 12/09 16:55 Order name: EKG - Nurse/Tech; Complete Time: 18:38 [facility] 12/09 16:55 Order name: IV Saline Lock; Complete Time: 17:22 [facility] 12/09 16:55 Order name: Labs collected and sent; Complete Time: 17:22 [facility] 12/09 16:55 Order name: O2 Per Protocol; Complete Time: 17:14 [facility] 12/09 16:55 Order name: O2 Sat Monitoring; Complete Time: 17:14 [facility] 12/09 16:55 Order name: Urine Dipstick-Ancillary (obtain specimen) [facility] 12/09 18:18 Order name: NG Tube: to low int suction; Complete Time: 19:54 [facility] 12/09 19:17 Order name: CONS Physician Consult; Complete Time: 20:32 EDMS EC:43 Rate is 78 beats/min. Rhythm is regular. QRS [place] is Normal. NC interval is normal. QRS mingo interval is normal. QT interval is normal. No Q waves. T waves are Normal. No ST changes noted. Clinical impression: Normal ECG and No evidence of ischemia. Interpreted by me. Reviewed by me. Administered Medications: 17:32 Drug: Pepcid (famotidine) 20 mg Route: IVP; Site: left antecubital; jw6 17:32 Follow up: Response: No adverse reaction [facility] 17:32 Drug: Zofran (Ondansetron) 4 mg Route: IVP; Site: left antecubital; jw6 17:32 Follow up: Response: No adverse reaction [facility] 17:32 Drug: morphine 2 mg Route: IVP; Site: left antecubital; jw6 19:08 Drug: Zosyn (piperacillin-tazobactam) 3.375 grams Route: IVPB; Infused Over: 60 mins; jw6 Site: right antecubital; 20:08 Follow up: IV Status: Completed infusion; IV Intake: 100ml dc2 19:29 Drug: morphine 2 mg Route: IVP; Site: left antecubital; dc2 20:10 Follow up: Response: Pain is decreased dc2 Disposition Summary: 12/09/20 18:24 Hospitalization Ordered Hospitalization Status: Inpatient Admission mingo Provider: Leon Oliveira cha Location: Telemetry/MedSurg (Inpatient) mingo Condition: Stable mingo Problem: new mingo Symptoms: have improved mingo Bed/Room Type: Standard [facility] Room Assignment: 216(12/09/20 22:01) em Diagnosis - Abdominal pain, Generalized mingo - Vomiting mingo - Crohn's disease, unspecified, without complications - history mingo - Other intestinal obstruction - mechanical small bowel obs mingo Forms: - Medication Reconciliation Form mingo - SBAR form mingo Signatures: Dispatcher [employer] EDEsa Vanegas MD MD cha Munoz, Edgar, RN RN Santo Ventura RN RN ll1 Bernie Alcocer RN RN [email or web address] Lucille [email or web address] Corrections: (The following items were deleted from the chart) 22:01 18:24 mingo love
--- NOTE | 2020-12-09 18:25 | ER ---
Nurse's Notes [facility] Name: Kindra Novoa Age: 65 yrs Sex: Female : 1955 Arrival Date: 12/09/2020 Time: 16:31 Bed 16 Private MD: Diagnosis: Abdominal pain, Generalized;Vomiting;Crohn's disease, unspecified, without complications-history;Other intestinal obstruction-mechanical small bowel obs Presentation: 12/09 16:51 Chief complaint: Patient states: Abd pain with N/V for 2 days. Has history of Chron's. ll1 No known fever. Coronavirus screen: Vaccine status: Patient reports being unvaccinated. Client denies travel out of the [place] in the last 14 days. At this time, the client does not indicate any symptoms associated with coronavirus-19. Ebola Screen: Patient denies travel to an Ebola-affected area in the 21 days before illness onset. Initial Sepsis Screen: Does the patient meet any 2 criteria? No. Patient's initial sepsis screen is negative. Does the patient have a suspected source of infection? Yes: Acute abdominal pain. Risk Assessment: Do you want to hurt yourself or someone else? Patient reports no desire to harm self or others. Onset of symptoms was December 08, 2020. 16:51 Method Of Arrival: Ambulatory ll1 16:51 Acuity: KAROL 3 ll1 Triage Assessment: 17:30 General: Appears distressed, Behavior is restless. Pain: Complains of pain in abdomen jw6 Pain does not radiate. Pain currently is 10 out of 10 on a pain scale. EENT: No deficits noted. Neuro: No deficits noted. Cardiovascular: No deficits noted. Respiratory: No deficits noted. GI: Reports Pain is 10 out of 10 on a pain scale. : No deficits noted. Derm: No deficits noted. Musculoskeletal: No deficits noted. Historical: - Allergies: 16:50 buspirone; ll1 16:50 Ciprofloxacin; ll1 16:50 Flagyl; ll1 16:50 Latex, Natural Rubber; ll1 - Home Meds: 17:31 bupropion HCl 150 mg Oral Tb24 once daily [Active]; bupropion HCl 75 mg Oral tab jw6 nightly [Active]; cholecalciferol (vitamin D3) 5,000 unit Oral cap daily [Active]; ferrous sulfate 325 mg (65 mg iron) Oral tab daily [Active]; Humira Pen subcutaneous [Active]; levothyroxine 25 mcg tab 1 tab once daily [Active]; lisinopril-hydrochlorothiazide 10-12.5 mg Oral tab 1 tab once daily [Active]; metformin 500 mg Oral tr24 1 tab once daily [Active]; metoprolol tartrate 50 mg Oral tab 1 tab 2 times per day [Active]; Pentasa Oral [Active]; sertraline 50 mg Oral tab 1 tab once daily [Active]; sertraline 100 mg Oral tab 1 tab nightly [Active]; - PMHx: 16:50 Colitis; Hypertension; Depression; Crohn's Disease; Hypothyroidism; Insulin Resistance; ll1 - Immunization history:: Client reports having NOT received the Covid vaccine. - Social history:: Smoking status: Patient denies any tobacco usage or history of. Screenin:27 Abuse screen: Denies threats or abuse. Denies injuries from another. Nutritional jw6 screening: No deficits noted. Tuberculosis screening: No symptoms or risk factors identified. Fall Risk IV access (20 points). Assessment: 17:27 General: Appears distressed, Behavior is restless. Pain: Complains of pain in abdomen jw6 Pain does not radiate. Pain currently is 10 out of 10 on a pain scale. Neuro: No deficits noted. Cardiovascular: No deficits noted. Respiratory: No deficits noted. GI: Bowel sounds present X 4 quads. Abd is soft Abdomen is tender to palpation X 4 quads. : No deficits noted. EENT: No deficits noted. Derm: No deficits noted. Musculoskeletal: No deficits noted. 22:46 Reassessment: attempt report, Per Kelvin Ulloa is in with patient and will call back. dc2 23:09 Reassessment: Report given to CHRISTIANO Warren on 2nd floor at this time. dc2 Vital Signs: 16:51 BP 126 / 79; Pulse 89; Resp 17; Temp 97.4; Pulse Ox 97% on R/A; Weight 105.23 kg; ll1 Height 5 ft. 0 in. (152.40 cm); Pain 10/10; 17:27 BP 121 / 82; Pulse 78; Resp 22; Pulse Ox 97% on R/A; jw6 19:30 BP 112 / 79; Pulse 71; Resp 18; Temp 97.2; Pulse Ox 98% ; Pain 8/10; dc2 20:00 BP 137 / 75; Pulse 65; Resp 18; Pulse Ox 96% ; Pain 3/10; dc2 21:00 BP 142 / 81; Pulse 68; Resp 18; Pulse Ox 96% ; Pain 3/10; dc2 22:30 BP 139 / 76; Pulse 71; Resp 17; Temp 98.0; Pulse Ox 98% ; Pain 4/10; dc2 16:51 Body Mass Index 45.31 (105.23 kg, 152.40 cm) 1 ED Course: 16:31 Patient arrived in ED. as 16:42 Esa Swain MD is Attending Physician. [facility] 16:52 Triage completed. 1 16:52 Arm band placed on Patient placed in an exam room, on a stretcher. 1 16:56 Lucille Eugene is Primary Nurse. 6 17:16 Initial lab(s) drawn, by tn, sent to lab. Inserted saline lock: 20 gauge in left 3 antecubital area, using aseptic technique. Blood collected. 17:20 XRAY Chest (1 view) In Process Unspecified. EDMS 17:27 Patient has correct armband on for positive identification. Bed in low position. Call jw6 light in reach. Side rails up X 1. childhood development teacher on. Pulse ox on. NIBP on. 17:27 No provider procedures requiring assistance completed. jw6 17:44 CT Abd/Pelvis - IV Contrast Only In Process Unspecified. EDMS 18:20 Leon Oliveira MD is Hospitalizing Provider. [facility] 18:38 EKG done, by ED staff, reviewed by Esa Swain MD. [facility] 19:20 NGT: inserted 14 Fr. via left nare. verified placement of air over stomach, verified dc2 return of gastric contents, to intermittent suction. Returned gastric contents. contents cloudy water. 19:45 Admitting physician to see patient. dc2 19:54 COVID-19 SARS RT PCR (Document "Date of Onset" if Symptomatic) Sent. dc2 21:00 No apparent distress. Awaiting bed assignment. dc2 22:00 childhood development teacher on. Pulse ox on. NIBP on. dc2 22:00 IV Flushed Converted IV to saline lock on left antecubital area dc2 22:05 No apparent distress. Resting quietly. Awaiting bed assignment. dc2 Administered Medications: 17:32 Drug: Pepcid (famotidine) 20 mg Route: IVP; Site: left antecubital; jw6 17:32 Follow up: Response: No adverse reaction jw6 17:32 Drug: Zofran (Ondansetron) 4 mg Route: IVP; Site: left antecubital; jw6 17:32 Follow up: Response: No adverse reaction jw6 17:32 Drug: morphine 2 mg Route: IVP; Site: left antecubital; jw6 19:08 Drug: Zosyn (piperacillin-tazobactam) 3.375 grams Route: IVPB; Infused Over: 60 mins; jw6 Site: right antecubital; 20:08 Follow up: IV Status: Completed infusion; IV Intake: 100ml dc2 19:29 Drug: morphine 2 mg Route: IVP; Site: left antecubital; dc2 20:10 Follow up: Response: Pain is decreased dc2 Intake: 20:08 IV: 100ml; Total: 100ml. dc2 Output: 22:50 Gastric: 100ml (NGT); Total: 100ml. dc2 Outcome: 18:24 Decision to Hospitalize by Provider. [place] 22:45 Admitted to Tele accompanied by tech, via stretcher, room 216, with chart. dc2 22:45 Condition: stable 12/10 00:11 Patient left the ED. dc2 Signatures: Dispatcher [employer] EDEsa Vanegas MD MD cha Martinez, Amelia as Herrera, Deanna 3 Santo Ceballos RN RN 1 Bernie Alcocer RN RN [email or web address] Lucille Eugene jw6
[2020-12-09] MEDS ORDERED: NA CHLORIDE 0.9% 0 ML ONE (18:57)
[2020-12-09] MEDS ORDERED: PIPERACIL/TAZO 3.375 GM VIAL IV ONE (18:57)
--- NOTE | 2020-12-09 20:05 | P.HP ---
Certification for Inpatient Patient admitted to: Inpatient With expected LOS: >2 Midnights Patient will require the following post-hospital care: None Practitioner: I am a practitioner with admitting privileges, knowledge of patient current condition, hospital course, and medical plan of care. Services: Services provided to patient in accordance with Admission requirements found in Title 42 Section 412.3 of the Code of Federal Regulations Patient History Date of Service: 12/09/20 Reason for admission: SBO History of Present Illness: Ms. Novoa is a 65 yo F with HTN, hypothyroidism and Crohns who presents with RUQ and LUQ abdominal pain beginning yesterday. She reports nausea but no vomiting. She had a piece of toast this morning. She had her last BM right before arrival to the ED. She has been hospitalized multiple times over the last few months for recurrent SBO. She follows with Dr. Adair for her Crohns disease. NG Tube placed in the ED. CT ABDOMEN PELVIS: Moderate small bowel dilatation is seen in the left aspect the abdomen extending inferiorly compatible with mechanical small bowel obstruction. Small bowel loops are dilated up to 5 cm in transverse dimension. There is abrupt point transition seen where soft tissue is noted in the lower abdomen (image 64/95). Sigmoid diverticulosis is present without diverticulitis. No free intraperitoneal air. No abscess seen. No evidence of significant lymphadenopathy. Small fat containing umbilical hernia. Allergies ciprofloxacin Allergy (Verified 07/12/20 22:34) Itching/Hives/Rash latex [Latex] Allergy (Verified 05/12/11 07:41) Itching/Hives/Rash Latex, Natural Rubber Allergy (Verified 06/07/20 05:52) Unknown metronidazole Allergy (Verified 07/12/20 22:34) Itching/Hives/Rash buspirone Adverse Reaction (Verified 07/12/20 22:35) Nausea/Vomiting Home Medications: Bupropion HCl [Wellbutrin] 75 mg PO BEDTIME 07/27/20 Cholecalciferol (Vitamin D3) [Vitamin D3] 5,000 unit PO DAILY 07/27/20 Ferrous Sulfate 325 mg PO BID 07/27/20 Levothyroxine Sodium 25 mcg PO DAILY 07/27/20 Lisinopril/Hydrochlorothiazide [Lisinopril-Hctz 10-12.5 mg Tab] 1 tab PO DAILY 07/27/20 Metformin HCl [Glucophage*] 1 tab PO DAILY AT SUPPER 07/27/20 Metoprolol Tartrate 1 tab PO DAILY 07/27/20 Sertraline [Zoloft*] 150 mg PO DAILY 07/27/20 buPROPion HCL [Wellbutrin*] 150 mg PO DAILY 07/27/20 Adalimumab [Humira 40 MG/0.8 ML*] 40 mg SQ Q14D 10/28/20 Mesalamine [Pentasa*] 500 mg PO BID 10/28/20 Mesalamine [Pentasa] 500 mg PO BID 10/28/20 predniSONE [Deltasone] 10 mg PO DAILY 28 Days #75 tab 11/02/20 - Past Medical/Surgical History Diabetic: No -: HTN -: Prediabetes -: Hypothyroidism -: Depression -: Recurrent SBO -: GERD -: Bowel obstruction -: Psychosocial/ Personal History: Patient is . - Family History Family History: Reviewed- Non-Contributory - Family History Father -: Cancer Mother -: Heart disease - Social History Smoking Status: Never smoker Alcohol use: No CD- Drugs: No Caffeine use: Yes Place of Residence: Home Review of Systems 10-point ROS is otherwise unremarkable Gastrointestinal: Nausea, Abdominal Pain Physical Examination - Physical Exam General: Alert, In no apparent distress HEENT: Atraumatic, PERRLA, Mucous membr. moist/pink, EOMI, Sclerae nonicteric Neck: Supple, 2+ carotid pulse no bruit, No LAD, Without JVD or thyroid abnormality Respiratory: Clear to auscultation bilaterally, Normal air movement Cardiovascular: Regular rate/rhythm, Normal S1 S2 Gastrointestinal: Normal bowel sounds, Soft and benign, Non-distended, No ascites, No masses, No rebound, No guarding, Tenderness Musculoskeletal: No tenderness Integumentary: No rashes Neurological: Normal gait, Normal speech, Normal strength at 5/5 x4 extr, Normal tone, Normal affect Lymphatics: No axilla or inguinal lymphadenopathy - Studies Laboratory Data (last 24 hrs) 12/09/20 17:16: PT 10.7, INR 0.93 12/09/20 17:16: WBC 7.20, Hgb 13.4, Hct 40.8, Plt Count 348 12/09/20 17:16: Sodium 142, Potassium 3.8, BUN 13, Creatinine 0.99, Glucose 132 H, Magnesium 1.9, Total Bilirubin 0.4, AST 13 L, ALT 27, Alkaline Phosphatase 113, Lipase 55 L Assessment and Plan - Problems (Diagnosis) (1) Crohn's disease Current Visit: No Status: Chronic Qualifiers: Gastrointestinal tract location: unspecified location Digestive disease complication type: with intestinal obstruction Qualified Code(s): K50.912 - Crohn's disease, unspecified, with intestinal obstruction (2) Small bowel obstruction Current Visit: No Status: Acute (3) Hypertension Current Visit: No Status: Chronic Qualifiers: (4) Hypothyroidism Current Visit: No Status: Chronic Qualifiers: - Plan NPO, NG tube placed in ED Surgery and GI consult continue IV fluids, antiemetics, and IV anbiotics pain management as needed DVT ppx Discharge Plan: Home Plan to discharge in: 48 Hours - Advance Directives Does patient have a Living Will: No Does patient have a Durable POA for Healthcare: No - Code Status/Comfort Care Code Status Assessed: Yes (full code ) Critical Care: No Time Spent Managing Pts Care (In Minutes): 70
[2020-12-09 21:18] LABS: SARS-COV-2 RT PCR NEGATIVE (NEGATIVE)
[2020-12-09] MEDS ORDERED: ACETAMINOPHEN 500 MG TAB PO PRN (23:15)
[2020-12-09] MEDS ORDERED: NA CHLORIDE 0.9% 1,000 ML IV SCH (23:15)
[2020-12-10] MEDS: PIPER TAZO 3.375 GM in NA CHLORIDE 0.9% 100 ML IV SCH ×3 (00:35→17:37)
[2020-12-10] MEDS: ONDANSETRON 4 MG/2 ML VIAL IV PRN (00:36)
[2020-12-10] MEDS: MORPHINE 2 MG/ML SYR IV PRN ×4 (00:36→18:55)
[2020-12-10 00:54] VITALS: BMI 44.1
[2020-12-10 01:58] LABS: Urine Appearance CLEAR (Clear); Urine Bilirubin NEGATIVE (Negative); Urine Blood NEGATIVE (Negative); Urine Color YELLOW (Yellow); Urine Glucose NEGATIVE (Negative); Urine Protein NEGATIVE (Negative); Urine Specific Gravity >=1.030 (1.005-1.030); Urine Urobilinogen 0.2 mg/dL (0.2-1.0)
[2020-12-10 02:11] LABS: Urine Microscopic Reflex NO UMIC
[2020-12-10 05:41] LABS: Absolute Lymphocytes (CBC) 2.1 K/uL (0.7-4.9); Basophils % 0.5 % (0-1.3); Hematocrit 35.9 % (36.0-45.0); Lymphocytes % 33.8 % (15.3-44.8); MPV 7.1 fL (7.6-11.3); RBC Red Blood Cell Count 4.05 M/uL (3.86-4.86)
[2020-12-10 06:04] LABS: Albumin 2.4 g/dL (3.4-5.0); Bilirubin Total 0.4 mg/dL (0.2-1.0); Phosphorus 3.2 mg/dL (2.5-4.9); Potassium 3.6 mmol/L (3.5-5.1); Protein, Total 5.6 g/dL (6.4-8.2)
[2020-12-10 06:05] LABS: Magnesium 1.9 mg/dL (1.8-2.4)
[2020-12-10] MEDS ORDERED: MAGNESIUM SULFATE 1 gm IVPB 1 GM/100 ML BAG IV ONE (06:26)
[2020-12-10] MEDS ORDERED: KCL 20 MEQ/100 mL IVPB 20 MEQ/100 ML BAG IV ONE (07:00)
[2020-12-10] MEDS ORDERED: INFLUENZA VACCINE (for 6+ mo) 0.5 ML DOSE IMVAC ONE (08:00)
[2020-12-10] MEDS: D5 0.45 NS 1,000 ML IV SCH ×2 (08:00→20:50)
[2020-12-10] MEDS: METHYLPREDNISOLONE 40 MG INJ IV SCH ×2 (09:55→20:50)
--- NOTE | 2020-12-10 12:51 | P.PN ---
Subjective Date of Service: 12/10/20 Chief Complaint: SBO Subjective: Other (NG tube in place. Pain improved. No passage of gas noted. Patient reported bowel movement yesterday prior to admission.) Physical Examination - Vital Signs Temperature: 97.5 F Blood Pressure: 116/57 Pulse: 69 Respirations: 16 Pulse Ox (%): 95 - Studies Laboratory Data (last 24 hrs) 12/09/20 17:16: PT 10.7, INR 0.93 12/09/20 17:16: WBC 7.20, Hgb 13.4, Hct 40.8, Plt Count 348 12/09/20 17:16: Sodium 142, Potassium 3.8, BUN 13, Creatinine 0.99, Glucose 132 H, Magnesium 1.9, Total Bilirubin 0.4, AST 13 L, ALT 27, Alkaline Phosphatase 113, Lipase 55 L Assessment & Plan Discharge Plan: Home Plan to discharge in: Greater than 2 days Physician Review Additional Text: COVID: Negative CT Scan Ab/Pelvis: COMPARISON: Abdomen Pelvis W Contrast dated 10/28/2020; Abdomen Pelvis W Contrast dated 07/27/2020; Abdomen Pelvis W Contrast dated 07/12/2020; Abdomen Pelvis W Contrast dated 06/10/2020 TECHNIQUE: Biphasic CT imaging of the abdomen and pelvis was performed with 100 ml non-ionic IV contrast. All CT scans are performed using dose optimization technique as appropriate and may include automated exposure control or mA/KV adjustment according to patient size. FINDINGS: The lung bases are clear. The liver, spleen, pancreas, adrenal glands and kidneys are within normal limits. 17 mm benign cyst right kidney noted. Moderate small bowel dilatation is seen in the left aspect the abdomen extending inferiorly compatible with mechanical small bowel obstruction. Small bowel loops are dilated up to 5 cm in transverse dimension. There is abrupt point transition seen where soft tissue is noted in the lower abdomen (image 64/95). Sigmoid diverticulosis is present without diverticulitis. No free intraperitoneal air. No abscess seen. No evidence of significant lymphadenopathy. Small fat containing umbilical hernia. No suspicious bony findings. IMPRESSION: Moderate mechanical small-bowel obstruction is present as detailed above. CXR: COMPARISON: Abdomen 1 View (KUB) dated 07/31/2020; Abdomen 1 View (KUB) dated 07/28/2020; Abdomen 1 View (KUB) dated 07/16/2020; Abdomen 1 View (KUB) dated 07/15/2020 FINDINGS: Portable technique limits examination quality. The lungs are grossly clear. The heart is normal in size. No displaced fractures. IMPRESSION: No acute intrathoracic process suspected Physical Exam: General: Alert, In no apparent distress HEENT: NG tube in place Respiratory: Clear to auscultation bilaterally, Normal air movement Cardiovascular: Regular rate/rhythm, Normal S1 S2 Gastrointestinal: Decreased bowel sounds, Soft and benign, Non-distended, No ascites, No masses, No rebound, No guarding, minimal tenderness tenderness Musculoskeletal: No tenderness Integumentary: No rashes Neurological: Normal gait, Normal speech, Normal strength at 5/5 x4 extr, Normal tone, Normal affect Lymphatics: No axilla or inguinal lymphadenopathy Impression: Nausea, vomiting secondary to moderate mechanical recurrent small bowel obstruction complicated with history of Crohn's disease Hypertension Hypothyroidism Depression with anxiety Diabetes mellitus type 2 Plan: Nausea, vomiting secondary to moderate mechanical recurrent small bowel obstruction complicated with history of Crohn's disease: Patient remains n.p.o. at this time. NG tube in place. We will continue to monitor closely. Will provide medication for pain. Patient on IV antibiotic therapyZosyn. Will start IV Solu-Medrol as the patient was taking prednisone recently. Patient had been taking Humira and Pentasa for Crohn's. Will consult GI for further recommendation. Await recommendations by surgery. Anticipate continued improvement over the next 72 hours. Hypertension: Blood pressure stable off medication. Continue to hold metoprolol and lisinopril/hydrochlorothiazide. Will provide IV medication as needed Hypothyroidism: Will provide IV levothyroxine 25 mcg daily. Depression with anxiety: Restart home medication of Zoloft, bupropion once patient is able to take good oral intake. Diabetes mellitus type 2: Hold Metformin. June 2020 A1c 5.5. Continue Accu- Cheks and sliding scale. DVT prophylaxis: Lovenox CODE STATUS: Full code Advanced care [id number] minutes: Home at discharge Time Spent Managing Pts Care (In Minutes): 55
[2020-12-10] MEDS: ENOXAPARIN 40 MG/0.4 ML SQ SCH (17:37)
[2020-12-10] MEDS: ENSURE HIGH PROTEIN 237 ML CAN PO SCH ×2 (20:48→21:00)
[2020-12-11] MEDS: MORPHINE 2 MG/ML SYR IV PRN ×5 (00:22→22:19)
[2020-12-11] MEDS: PIPER TAZO 3.375 GM in NA CHLORIDE 0.9% 100 ML IV SCH ×3 (00:53→15:48)
[2020-12-11] MEDS: D5 0.45 NS 1,000 ML IV SCH ×2 (03:29→14:00)
[2020-12-11 05:44] LABS: Magnesium 2.7 mg/dL (1.8-2.4); Potassium 4.1 mmol/L (3.5-5.1)
[2020-12-11 05:46] LABS: Basophils % 0.3 % (0-1.3); Hematocrit 36.6 % (36.0-45.0); Lymphocytes % 23.2 % (15.3-44.8)
[2020-12-11] MEDS ORDERED: LEVOTHYROXINE SODIUM 100 MCG VIAL IV SCH (06:00)
--- NOTE | 2020-12-11 06:29 | P.PN ---
Subjective Date of Service: 12/11/20 Chief Complaint: SBO Subjective: Other (No nausea or vomiting noted. Still no passage of gas or stool.) Physical Examination - Vital Signs Temperature: 97.1 F Blood Pressure: 148/80 Pulse: 66 Respirations: 18 Pulse Ox (%): 98 Assessment & Plan Discharge Plan: Home Plan to discharge in: 72 Hours Physician Review Additional Text: COVID: Negative CT Scan Ab/Pelvis: COMPARISON: Abdomen Pelvis W Contrast dated 10/28/2020; Abdomen Pelvis W Contrast dated 07/27/2020; Abdomen Pelvis W Contrast dated 07/12/2020; Abdomen Pelvis W Contrast dated 06/10/2020 TECHNIQUE: Biphasic CT imaging of the abdomen and pelvis was performed with 100 ml non-ionic IV contrast. All CT scans are performed using dose optimization technique as appropriate and may include automated exposure control or mA/KV adjustment according to patient size. FINDINGS: The lung bases are clear. The liver, spleen, pancreas, adrenal glands and kidneys are within normal limits . 17 mm benign cyst right kidney noted. Moderate small bowel dilatation is seen in the left aspect the abdomen extending inferiorly compatible with mechanical small bowel obstruction. Small bowel loops are dilated up to 5 cm in transverse dimension. There is abrupt point transition seen where soft tissue is noted in the lower abdomen (image 64/95). Sigmoid diverticulosis is present without diverticulitis. No free intraperitoneal air. No abscess seen. No evidence of significant lymphadenopathy. Small fat containing umbilical hernia. No suspicious bony findings. IMPRESSION: Moderate mechanical small-bowel obstruction is present as detailed above. CXR: COMPARISON: Abdomen 1 View (KUB) dated 07/31/2020; Abdomen 1 View (KUB) dated 07/28/2020; Abdomen 1 View (KUB) dated 07/16/2020; Abdomen 1 View (KUB) dated 07/15/2020 FINDINGS: Portable technique limits examination quality. The lungs are grossly clear. The heart is normal in size. No displaced fract ures. IMPRESSION: No acute intrathoracic process suspected Follow up KUB 12/11/2020: FINDINGS: No significant change in the dilated small bowel with diminished air in the colon compatible with an obstruction. Nasogastric tube lies 4 centimeters from the GE junction Physical Exam: General: Alert, In no apparent distress HEENT: NG tube in place Respiratory: Clear to auscultation bilaterally, Normal air movement Cardiovascular: Regular rate/rhythm, Normal S1 S2 Gastrointestinal: Decreased bowel sounds, Soft and benign, Non-distended, No ascites, No masses, No rebound, No guarding, minimal tenderness tenderness Musculoskeletal: No tenderness Integumentary: No rashes Neurological: Normal gait, Normal speech, Normal strength at 5/5 x4 extr, Normal tone, Normal affect Lymphatics: No axilla or inguinal lymphadenopathy Impression: Nausea, vomiting secondary to moderate mechanical recurrent small bowel obstruction complicated with history of Crohn's disease Hypertension Hypothyroidism Depression with anxiety Diabetes mellitus type 2 Plan: Nausea, vomiting secondary to moderate mechanical recurrent small bowel obstruction complicated with history of Crohn's disease: Patient remains n.p.o. at this time. NG tube in place. Still no passage of gas or stool. KUB today still shows no change in obstruction. Continue IV Zosyn and Solu-Medrol. Will discuss with GI. Await surgical recommendations. Patient had been taking Humira and Pentasa for Crohn's. Encourage ambulation. Provide incentive spirometer. Anticipate improvement over the next 72 hours. Hypertension: Blood pressure stable off medication. Continue to hold metoprolol and lisinopril/hydrochlorothiazide. Will provide IV medication as needed Hypothyroidism: Will provide IV levothyroxine 25 mcg daily. Depression with anxiety: Restart home medication of Zoloft, bupropion once patient is able to take good oral intake. Diabetes mellitus type 2: Hold Metformin. June 2020 A1c 5.5. Continue Accu- Cheks and sliding scale. DVT prophylaxis: Lovenox CODE STATUS: Full code Advanced care [id number] minutes: Home at discharge Time Spent Managing Pts Care (In Minutes): 55
--- NOTE | 2020-12-11 07:53 | RAD REPORT ---
EXAM DESCRIPTION: RAD - Abdomen 1 View (KUB) - 12/11/2020 5:59 am CLINICAL HISTORY: Abdomen pain. FINDINGS: No significant change in the dilated small bowel with diminished air in the colon compatib le with an obstruction. Nasogastric tube lies 4 centimeters from the GE junction
[2020-12-11] MEDS: ENSURE HIGH PROTEIN 237 ML CAN PO SCH ×2 (09:00→21:00)
[2020-12-11] MEDS: METHYLPREDNISOLONE 40 MG INJ IV SCH ×2 (09:06→22:19)
[2020-12-11] MEDS: ENOXAPARIN 40 MG/0.4 ML SQ SCH (15:49)
--- NOTE | 2020-12-11 21:51 | RAD REPORT ---
EXAM DESCRIPTION: RAD - Abdomen 1 View (KUB) - 12/11/2020 8:03 pm CLINICAL HISTORY: advanced ngt COMPARISON: Abdomen 1 View (KUB) dated 12/11/2020; Abdomen 1 View (KUB) dated 07/31/2020; Abdomen 1 V iew (KUB) dated 07/28/2020; Abdomen 1 View (KUB) dated 07/16/2020 FINDINGS: NG tube terminates in the proximal stomach. The proximal side port terminates in the dista l esophagus. Lungs are clear. Dilated small bowel which is only partially imaged. IMPRESSION: The NG tube has only been slightly advanced with proximal side-port in the distal esopha brian. Suggest advancing by an additional 6 cm
[2020-12-11] MEDS ORDERED: PHENOL 1.4% ORAL SPRAY 180ML MM PRN (22:46)
[2020-12-12] MEDS: PIPER TAZO 3.375 GM in NA CHLORIDE 0.9% 100 ML IV SCH ×3 (00:01→16:04)
[2020-12-12] MEDS: MORPHINE 2 MG/ML SYR IV PRN ×3 (05:14→19:52)
--- NOTE | 2020-12-12 06:05 | P.PN ---
Subjective Date of Service: 12/12/20 Chief Complaint: SBO Subjective: Other (No pain noted. Still no bowel movement or passage of gas.) Physical Examination - Vital Signs Temperature: 97.2 F Blood Pressure: 162/80 Pulse: 78 Respirations: 18 Pulse Ox (%): 96 Assessment & Plan Discharge Plan: Home Plan to discharge in: 48 Hours Physician Review Additional Text: COVID: Negative CT Scan Ab/Pelvis: COMPARISON: Abdomen Pelvis W Contrast dated 10/28/2020; Abdomen Pelvis W Contrast dated 07/27/2020; Abdomen Pelvis W Contrast dated 07/12/2020; Abdomen Pelvis W Contrast dated 06/10/2020 TECHNIQUE: Biphasic CT imaging of the abdomen and pelvis was performed with 100 ml non-ionic IV contrast. All CT scans are performed using dose optimization technique as appropriate and may include automated exposure control or mA/KV adjustment according to patient size. FINDINGS: The lung bases are clear. The liver, spleen, pancreas, adrenal glands and kidneys are within normal limits. 17 mm benign cyst right kidney noted. Moderate small bowel dilatation is seen in the left aspect the abdomen extending inferiorly compatible with mechanical small bowel obstruction. Small bowel loops are dilated up to 5 cm in transverse dimension. There is abrupt point transition seen where soft tissue is noted in the lower abdomen (image 64/95). Sigmoid diverticulosis is present without diverticulitis. No free intraperitoneal air. No abscess seen. No evidence of significant lymphadenopathy. Small fat containing umbilical hernia. No suspicious bony findings. IMPRESSION: Moderate mechanical small-bowel obstruction is present as detailed above. CXR: COMPARISON: Abdomen 1 View (KUB) dated 07/31/2020; Abdomen 1 View (KUB) dated 07/28/2020; Abdomen 1 View (KUB) dated 07/16/2020; Abdomen 1 View (KUB) dated 07/15/2020 FINDINGS: Portable technique limits examination quality. The lungs are grossly clear. The heart is normal in size. No displaced fractures. IMPRESSION: No acute intrathoracic process suspected Follow up KUB 12/12/2020: COMPARISON: Abdomen 1 View (KUB) dated 12/11/2020; Abdomen 1 View (KUB) dated 12/11/2020; Abdomen 1 View (KUB) dated 07/31/2020; Abdomen 1 View (KUB) dated 07/28/2020; Abdomen Pelvis W Contrast dated 12/09/2020; Abdomen Pelvis W Contrast dated 10/28/2020 FINDINGS: Persistent dilated small bowel within the central abdomen without significant change. No acute osseous abnormality.Visualized lungs are unremarkable.No abnormal calcifications. NG tube overlies the stomach. IMPRESSION: Persistent, unchanged small-bowel dilatation consistent with known small bowel obstruction Physical Exam: General: Alert, In no apparent distress HEENT: NG tube in place Respiratory: Clear to auscultation bilaterally, Normal air movement Cardiovascular: Regular rate/rhythm, Normal S1 S2 Gastrointestinal: Decreased bowel sounds, Soft and benign, Non-distended, No ascites, No masses, No rebound, No guarding, minimal tenderness tenderness Musculoskeletal: No tenderness Integumentary: No rashes Neurological: Normal gait, Normal speech, Normal strength at 5/5 x4 extr, Normal tone, Normal affect Lymphatics: No axilla or inguinal lymphadenopathy Impression: Nausea, vomiting secondary to moderate mechanical recurrent small bowel obstruction complicated with history of Crohn's disease Hypertension Hypothyroidism Depression with anxiety Diabetes mellitus type 2 Plan: Nausea, vomiting secondary to moderate mechanical recurrent small bowel obstruction complicated with history of Crohn's disease: Patient remains n.p.o. at this time. NG tube was advanced with good placement. Still no passage of gas or stool. KUB still shows obstruction unchanged. Case discussed with surgery yesterday. Await to discuss with surgery today. Continue IV Zosyn and Solu-Medrol. No changes from GI noted.Patient had been taking Humira and Pentasa for Crohn's. Encourage ambulation. Provide incentive spirometer. Anticipate improvement over the next 72 hours. Hypertension: Blood pressure stable off medication. Continue to hold metoprolol and lisinopril/hydrochlorothiazide. Will provide IV medication as needed Hypothyroidism: Restart home medication once taking good oral intake. Depression with anxiety: Restart home medication of Zoloft, bupropion once patient is able to take good oral intake. Diabetes mellitus type 2: Hold Metformin. June 2020 A1c 5.5. Continue Accu- Cheks and sliding scale. DVT prophylaxis: Lovenox CODE STATUS: Full code Advanced care minutes: Home at discharge Time Spent Managing Pts Care (In Minutes): 55
[2020-12-12 06:22] LABS: Absolute Lymphocytes (CBC) 1.3 K/uL (0.7-4.9); Basophils % 0.6 % (0-1.3); Hematocrit 35.3 % (36.0-45.0); Lymphocytes % 22.6 % (15.3-44.8); MPV 7.2 fL (7.6-11.3); RBC Red Blood Cell Count 3.96 M/uL (3.86-4.86)
[2020-12-12 06:31] LABS: Magnesium 2.2 mg/dL (1.8-2.4); Potassium 4.4 mmol/L (3.5-5.1)
[2020-12-12 07:54] LABS: Blood Morphology Comment NOT SEEN (NOT SEEN); Platelet Estimate ADEQ
[2020-12-12] MEDS: METHYLPREDNISOLONE 40 MG INJ IV SCH ×2 (08:23→19:51)
[2020-12-12] MEDS: ENSURE HIGH PROTEIN 237 ML CAN PO SCH ×2 (08:27→19:37)
--- NOTE | 2020-12-12 08:34 | RAD REPORT ---
EXAM DESCRIPTION: RAD - Abdomen 1 View (KUB) - 12/12/2020 6:27 am CLINICAL HISTORY: follow up SBO COMPARISON: Abdomen 1 View (KUB) dated 12/11/2020; Abdomen 1 View (KUB) dated 12/11/2020; Abdomen 1 View (KUB) dated 07/31/2020; Abdomen 1 View (KUB) dated 07/28/2020; Abdomen Pelvis W Contrast dated ; Abdomen Pelvis W Contrast dated 10/28/2020 FINDINGS: Persistent dilated small bowel within the central abdomen without significant change. No a cute osseous abnormality.Visualized lungs are unremarkable.No abnormal calcifications. NG tube overli es the stomach. IMPRESSION: Persistent, unchanged small-bowel dilatation consistent with known small bowel obstructi on
[2020-12-12] MEDS: D5 0.45 NS 1,000 ML IV SCH ×3 (12:33→19:52)
--- NOTE | 2020-12-12 15:01 | P.PN ---
Date of Service: 12/12/20 S: Patient feels much better today, has noticed that her stomach is growling. Also had a large bowel movement. Pain is much improved. O: Vital signs are stable, abdomen remains soft, A: Appears to be much improved P: We will DC NG tube, patient will have mineral oil after it has been removed. We will repeat mineral oil in the a.m. Anticipate discharge soon.
[2020-12-12] MEDS ORDERED: MINERAL OIL 30 ML UCUP FT ONE (16:00)
[2020-12-12] MEDS: ENOXAPARIN 40 MG/0.4 ML SQ SCH (16:04)
[2020-12-12] MEDS: ONDANSETRON 4 MG/2 ML VIAL IV PRN (23:35)
[2020-12-13] MEDS: PIPER TAZO 3.375 GM in NA CHLORIDE 0.9% 100 ML IV SCH ×2 (00:47→09:28)
[2020-12-13] MEDS: MORPHINE 2 MG/ML SYR IV PRN (04:03)
[2020-12-13 04:55] VITALS: BP 144/70; TEMP 97.1
--- NOTE | 2020-12-13 05:55 | P.PN ---
Subjective Date of Service: 12/13/20 Chief Complaint: SBO Subjective: Improving (Patient had bowel movement yesterday and last night. Patient much improved. No significant abdominal pain noted. No nausea vomiting.) Physical Examination - Vital Signs Temperature: 97.1 F Blood Pressure: 144/70 Pulse: 58 Respirations: 18 Pulse Ox (%): 97 Assessment & Plan Discharge Plan: Home Plan to discharge in: 24 Hours Physician Review Additional Text: COVID: Negative CT Scan Ab/Pelvis: COMPARISON: Abdomen Pelvis W Contrast dated 10/28/2020; Abdomen Pelvis W Contrast dated 07/27/2020; Abdomen Pelvis W Contrast dated 07/12/2020; Abdomen Pelvis W Contrast dated 06/10/2020 TECHNIQUE: Biphasic CT imaging of the abdomen and pelvis was performed with 100 ml non-ionic IV contrast. All CT scans are performed using dose optimization technique as appropriate and may include automated exposure control or mA/KV adjustment according to patient size. FINDINGS: The lung bases are clear. The liver, spleen, pancreas, adrenal glands and kidneys are within normal limits. 17 mm benign cyst right kidney noted. Moderate small bowel dilatation is seen in the left aspect the abdomen extending inferiorly compatible with mechanical small bowel obstruction. Small bowel loops are dilated up to 5 cm in transverse dimension. There is abrupt point transition seen where soft tissue is noted in the lower abdomen (image 64/95). Sigmoid diverticulosis is present without diverticulitis. No free intraperitoneal air. No abscess seen. No evidence of significant lymphadenopathy. Small fat containing umbilical hernia. No suspicious bony findings. IMPRESSION: Moderate mechanical small-bowel obstruction is present as detailed above. CXR: COMPARISON: Abdomen 1 View (KUB) dated 07/31/2020; Abdomen 1 View (KUB) dated 07/28/2020; Abdomen 1 View (KUB) dated 07/16/2020; Abdomen 1 View (KUB) dated 07/15/2020 FINDINGS: Portable technique limits examination quality. The lungs are grossly clear. The heart is normal in size. No displaced fractures. IMPRESSION: No acute intrathoracic process suspected Follow up KUB 12/12/2020: COMPARISON: Abdomen 1 View (KUB) dated 12/11/2020; Abdomen 1 View (KUB) dated 12/11/2020; Abdomen 1 View (KUB) dated 07/31/2020; Abdomen 1 View (KUB) dated 07/28/2020; Abdomen Pelvis W Contrast dated 12/09/2020; Abdomen Pelvis W Contrast dated 10/28/2020 FINDINGS: Persistent dilated small bowel within the central abdomen without significant change. No acute osseous abnormality.Visualized lungs are unremarkab le.No abnormal calcifications. NG tube overlies the stomach. IMPRESSION: Persistent, unchanged small-bowel dilatation consistent with known small bowel obstruction Physical Exam: General: Alert, In no apparent distress HEENT: NG tube in place Respiratory: Clear to auscultation bilaterally, Normal air movement Cardiovascular: Regular rate/rhythm, Normal S1 S2 Gastrointestinal: Good bowel sounds noted. Soft, nondistended. No pain noted. Musculoskeletal: No tenderness Integumentary: No rashes Neurological: Normal gait, Normal speech, Normal strength at 5/5 x4 extr, Normal tone, Normal affect Lymphatics: No axilla or inguinal lymphadenopathy Impression: Nausea, vomiting secondary to moderate mechanical recurrent small bowel obstruction complicated with history of Crohn's disease Hypertension Hypothyroidism Depression with anxiety Diabetes mellitus type 2 Plan: Nausea, vomiting secondary to moderate mechanical recurrent small bowel obstruction complicated with history of Crohn's disease: Patient has passed gas and had bowel movement yesterday and last night. Patient much improved. Obstruction appears resolved. Will start clear liquid diet and advance as tolerated. Continue with ambulation. Continue with IV antibiotic therapy and IV steroid. Case discussed with surgery yesterday. Consider possible discharge later today if much improved. Discussed at length about the importance of a strict low residue GI diet. Will reassess this afternoon for possible discharge. Hypertension: Blood pressure slightly elevated. Will restart lisinopril. Hold metoprolol and hydrochlorothiazide. Hypothyroidism: Restart levothyroxine. Depression with anxiety: Restart home medication of Zoloft, bupropion. Diabetes mellitus type 2: Blood sugars well controlled. Continue to hold Metformin. June 2020 A1c 5.5. Continue Accu-Cheks and sliding scale. DVT prophylaxis: Lovenox CODE STATUS: Full code Advanced care minutes: Home at discharge Time Spent Managing Pts Care (In Minutes): 55
[2020-12-13 05:57] LABS: Absolute Lymphocytes (CBC) 1.6 K/uL (0.7-4.9); Basophils % 0.2 % (0-1.3); Hematocrit 35.7 % (36.0-45.0); Lymphocytes % 27.5 % (15.3-44.8); RBC Red Blood Cell Count 3.98 M/uL (3.86-4.86)
[2020-12-13 05:59] LABS: Magnesium 2.1 mg/dL (1.8-2.4); Potassium 3.3 mmol/L (3.5-5.1)
[2020-12-13] MEDS: D5 0.45 NS 1,000 ML IV SCH (06:00)
[2020-12-13] MEDS ORDERED: MINERAL OIL 30 ML UCUP FT ONE (08:01)
[2020-12-13 08:32] VITALS: O2SAT 97
[2020-12-13] MEDS ORDERED: SERTRALINE HCL 100 MG TAB PO SCH (09:00)
[2020-12-13] MEDS: ENSURE HIGH PROTEIN 237 ML CAN PO SCH (09:00)
[2020-12-13] MEDS ORDERED: lisinopriL 5 MG TAB PO SCH (09:00)
[2020-12-13] MEDS ORDERED: buPROPion HCL 100 MG TAB PO SCH ×2 (09:00→21:00)
[2020-12-13] MEDS ORDERED: KCL 20 MEQ/100 mL IVPB 20 MEQ/100 ML BAG IV SCH ×2 (09:00)
[2020-12-13] MEDS: METHYLPREDNISOLONE 40 MG INJ IV SCH (09:28)
[2020-12-13] MEDS ORDERED: POTASSIUM CL SA 10 MEQ TAB PO ONE (10:12)
--- NOTE | 2020-12-13 13:40 | P.DS ---
Admission Date: 12/09/20 Discharge Date: 12/13/20 Primary Care Provider: Fox Vasquez NP; GI-Dr. Adair Disposition: ROUTINE DISCHARGE Discharge Condition: GOOD Reason for Admission: SBO Consultations: Surgery-Dr. Bella GI-Dr. Adair Procedures: COVID: Negative CT Scan Ab/Pelvis: COMPARISON: Abdomen Pelvis W Contrast dated 10/28/2020; Abdomen Pelvis W Contrast dated 07/27/2020; Abdomen Pelvis W Contrast dated 07/12/2020; Abdomen Pelvis W Contrast dated 06/10/2020 TECHNIQUE: Biphasic CT imaging of the abdomen and pelvis was performed with 100 ml non-ionic IV contrast. All CT scans are performed using dose optimization technique as appropriate and may include automated exposure control or mA/KV adjustment according to patient size. FINDINGS: The lung bases are clear. The liver, spleen, pancreas, adrenal glands and kidneys are within normal limits. 17 mm benign cyst right kidney noted. Moderate small bowel dilatation is seen in the left aspect the abdomen extending inferiorly compatible with mechanical small bowel obstruction. Small bowel loops are dilated up to 5 cm in transverse dimension. There is abrupt point transition seen where soft tissue is noted in the lower abdomen (image 64/95). Sigmoid diverticulosis is present without diverticulitis. No free intraperitoneal air. No abscess seen. No evidence of significant lymphadenopathy. Small fat containing umbilical hernia. No suspicious bony findings. IMPRESSION: Moderate mechanical small-bowel obstruction is present as detailed above. CXR: COMPARISON: Abdomen 1 View (KUB) dated 07/31/2020; Abdomen 1 View (KUB) dated 07/28/2020; Abdomen 1 View (KUB) dated 07/16/2020; Abdomen 1 View (KUB) dated 07/15/2020 FINDINGS: Portable technique limits examination quality. The lungs are grossly clear. The heart is normal in size. No displaced fractures. IMPRESSION: No acute intrathoracic process suspected Medical Problem List: Nausea, vomiting secondary to moderate mechanical recurrent small bowel obstruction complicated Crohn's disease Hypertension Hypothyroidism Depression with anxiety Prediabetes Obesity, BMI 44.1 Brief History of Present Illness: 65-year-old female with history of hypertension, hypothyroidism, and Crohn's disease. Patient came in with abdominal pain. Patient found to have recurrent small bowel obstruction. This was likely related to Crohn's exacerbation. Patient admitted for treatment. Hospital Course: Patient presented with nausea, vomiting secondary to moderate mechanical recurrent small bowel obstruction complicated with Crohn's disease. Patient required hospitalization. Patient did require NG tube with improvement. Her condition improved. Obstruction resolved. Patient was seen and evaluated by GI and surgery. No surgical intervention was required. At discharge she is without significant nausea, vomiting or abdominal pain. She was able to pass gas and have multiple BMs. At discharge the patient will continue with a low residue diet. Patient will continue with prednisone 20 mg 1 pill twice daily for 7 days then 1 pill once daily for 7 days then half a tablet 1 pill daily for 7 days. The patient will continue with lactobacillus 1 pill 3 times a day to help replenish GI normal kareen. Patient will continue with Augmentin 500 mg 1 pill twice daily for 5 days. At discharge the patient will also continue with her medications including Pentasa 500 mg 1 pill twice daily and Humira every 14 days. Recommend follow-up with GI in 1 to 2 weeks to follow-up his hospitalization and continue her care. GI will consider sending patient to a Crohn's specialist in the near future. Compliance with low residue diet was addressed in detail. Recommend follow-up with her PCP to monitor her condition. Patient with hypertension. Medications were adjusted during the course of her stay as the patient did not require her multiple medications. Patient previously on lisinopril hydrochlorothiazide 10/12.5 mg and metoprolol 25 mg pilo ly. Blood pressures have remained stable with low-dose lisinopril. At discharge patient will continue with lisinopril 5 mg 1 pill daily. Recommend to maintain blood pressure less than 130/80. Hold medication if blood pressure systolic less than 110. If blood pressures remain above 140/90 further adjustment in medication may be required. This can be done with the help of her PCP. Patient with hypothyroidism. At discharge patient will continue with levothyroxine 25 mcg daily. Patient with depression with anxiety. At discharge patient will continue with Zoloft 150 mg daily and bupropion 150 mg daily and 75 mg at bedtime. Patient with prediabetes. Patient previously on Metformin 500 mg daily. Prior hemoglobin A1c in June 2020 was 5.5. Will recommend to discontinue Metformin as this may cause some GI irritation. Recommend to recheck hemoglobin A1c every 3 to 6 months to monitor her progress. Patient previously on naltrexone for weight loss. Recommend to discontinue medication and continue with dietary changes. Vital Signs/Physical Exam: Temp Pulse Resp BP Pulse Ox 97.1 F 58 18 144/70 H 97 12/13/20 08:52 12/13/20 08:52 12/13/20 08:52 12/13/20 09:29 12/13/20 08:52 General: Alert, In no apparent distress, Oriented x3, Cooperative HEENT: Atraumatic Neck: Supple Respiratory: Clear to auscultation bilaterally, Normal air movement Cardiovascular: Normal pulses, Regular rate/rhythm Gastrointestinal: Normal bowel sounds, No ascites, No tenderness, No masses, No rebound, No guarding Musculoskeletal: No tenderness, No warmth Integumentary: No tenderness/swelling, No erythema, No warmth, No cyanosis Neurological: Normal speech, Normal strength at 5/5 x4 extr, Normal tone, Normal affect Laboratory Data at Discharge: WBC 5.90 K/uL (4.3-10.9) 12/13/20 05:27 Hgb 11.6 g/dL (12.0-15.0) L 12/13/20 05:27 Hct 35.7 % (36.0-45.0) L 12/13/20 05:27 Plt Count 321 K/uL (152-406) 12/13/20 05:27 PT 10.7 SECONDS (9.5-12.5) 12/09/20 17:16 INR 0.93 12/09/20 17:16 Sodium 145 mmol/L (136-145) 12/13/20 05:27 Potassium 3.3 mmol/L (3.5-5.1) L 12/13/20 05:27 BUN 6 mg/dL (7-18) L 12/13/20 05:27 Creatinine 0.80 mg/dL (0.55-1.3) 12/13/20 05:27 Glucose 130 mg/dL (74-106) H 12/13/20 05:27 Phosphorus 3.2 mg/dL (2.5-4.9) 12/10/20 05:07 Magnesium 2.1 mg/dL (1.8-2.4) 12/13/20 05:27 Total Bilirubin 0.4 mg/dL (0.2-1.0) 12/10/20 05:07 AST 31 U/L (15-37) 12/10/20 05:07 ALT 33 U/L (12-78) 12/10/20 05:07 Alkaline Phosphatase 117 U/L (45-117) 12/10/20 05:07 Lipase 55 U/L (73-393) L 12/09/20 17:16 Home Medications: Bupropion HCl [Wellbutrin] 75 mg PO BEDTIME 07/27/20 Cholecalciferol (Vitamin D3) [Vitamin D3] 5,000 unit PO DAILY 07/27/20 Levothyroxine Sodium 25 mcg PO DAILY 07/27/20 Sertraline [Zoloft*] 150 mg PO DAILY 07/27/20 Adalimumab [Humira 40 MG/0.8 ML*] 40 mg SQ Q14D 10/28/20 Mesalamine [Pentasa*] 500 mg PO BID 10/28/20 Ondansetron [Zofran (Odt)*] 4 mg PO Q6H PRN 12/10/20 buPROPion HCL [Bupropion HCl] 150 mg PO DAILY 12/10/20 Amoxicillin/Potassium Clav [Augmentin 500-125 Tablet] 1 each PO BID #10 tablet 12/13/20 Lactobacillus Acidophilus [Acidophilus Lactobacilli] 1 each PO TID #90 capsule 12/13/20 lisinopriL [Prinivil*] 5 mg PO DAILY #30 tab 12/13/20 predniSONE [Prednisone*] 20 mg PO SEECOM #25 tab 12/13/20 New Medications: Lactobacillus Acidophilus [Acidophilus Lactobacilli] 1 each PO TID #90 capsule Amoxicillin/Potassium Clav [Augmentin 500-125 Tablet] 1 each PO BID #10 tablet predniSONE [Prednisone*] 20 mg PO SEECOM #25 tab lisinopriL [Prinivil*] 5 mg PO DAILY #30 tab Physician Discharge Instructions: Patient presented with nausea, vomiting secondary to moderate mechanical recurrent small bowel obstruction complicated with Crohn's disease. Patient required hospitalization. Patient did require NG tube with improvement. Her condition improved. Obstruction resolved. Patient was seen and evaluated by GI and surgery. No surgical intervention was required. At discharge she is without significant nausea, vomiting or abdominal pain. She was able to pass gas and have multiple BMs. At discharge the patient will continue with a low residue diet. Patient will continue with prednisone 20 mg 1 pill twice daily for 7 days then 1 pill once daily for 7 days then half a tablet 1 pill daily for 7 days. The patient will continue with lactobacillus 1 pill 3 times a day to help replenish GI normal kareen. Patient will continue with Augmentin 500 mg 1 pill twice daily for 5 days. At discharge the patient will also continue with her medications including Pentasa 500 mg 1 pill twice daily and Humira every 14 days. Recommend follow-up with GI in 1 to 2 weeks to follow-up his hospit alization and continue her care. GI will consider sending patient to a Crohn's specialist in the near future. Compliance with low residue diet was addressed in detail. Recommend follow-up with her PCP to monitor her condition. Patient with hypertension. Medications were adjusted during the course of her stay as the patient did not require her multiple medications. Patient previously on lisinopril hydrochlorothiazide 10/12.5 mg and metoprolol 25 mg daily. Blood pressures have remained stable with low-dose lisinopril. At discharge patient will continue with lisinopril 5 mg 1 pill daily. Recommend to maintain blood pressure less than 130/80. Hold medication if blood pressure systolic less than 110. If blood pressures remain above 140/90 further adjustment in medication may be required. This can be done with the help of her PCP. Patient with hypothyroidism. At discharge patient will continue with levothyroxine 25 mcg daily. Patient with depression with anxiety. At discharge patient will continue with Zoloft 150 mg daily and bupropion 150 mg daily and 75 mg at bedtime. Patient with prediabetes. Patient previously on Metformin 500 mg daily. Prior hemoglobin A1c in June 2020 was 5.5. Will recommend to discontinue Metformin as this may cause some GI irritation. Recommend to recheck hemoglobin A1c every 3 to 6 months to monitor her progress. Patient previously on naltrexone for weight loss. Recommend to discontinue medication and continue with dietary changes. Diet: low residu Followup: NONE,NONE [Primary Care Provider] - Time spent managing pt's care (in minutes): 55
[2020-12-14] MEDS ORDERED: LEVOTHYROXINE SOD 0.025 MG TAB PO SCH (07:30)
== END 2020-12-13 15:22 | disposition home or self-care (01) | DRG 386 ==
LOC: ER 16:30 → ERHOLD 19:16 → 2ND 23:01
PROVIDERS: ADMIT Family Medicine; ATTEND Family Medicine
DX: K50.012 Crohn's disease of small intestine with intestinal obstruction (principal); Z68.41 Body mass index [BMI] 40.0-44.9, adult; I10 Essential (primary) hypertension; E03.9 Hypothyroidism, unspecified; F41.8 Other specified anxiety disorders; E11.65 Type 2 diabetes mellitus with hyperglycemia; E66.9 Obesity, unspecified; Z91.040 Latex allergy status; Z20.822 Contact with and (suspected) exposure to COVID-19
CPT/HCPCS: 0241U; 36415; 71045; 74018; 74177; 80048; 80053; 80076; 81003; 82565; 83605; 83690; 83735; 83880; 84100; 84484; 85025; 85610; 93005; 94010; 94760; 96365; 96375; 99285; J1650; J2270; J2405; J2543; J2920; J3475; J3480; J7030; J7799; Q9967

== ENCOUNTER 2021-01-08 16:48 | Inpatient (IN) | payer BC ==
--- OUTSIDE RECORDS SUMMARY | 2021-01-08 16:51 | XMS REPORT | Continuity of Care Document ---
:[address] [facility] t Address 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 [...] Date Stop Date Source Natural father [facility] Natural mother [facility] Social History Social Habit Start Date Stop Date Quantity Comments Source History [facility] History SDOH 2018-03-19 2018-03-19 1 [facility] Frequency 00:00:00 00:00:00 Hospita l Tobacco use and 2018-03-19 2018-03-19 Never used [facility] 00:[facility]:00 00:00:00 Hospital Alcohol intake 2018-03-19 2018-03-19 Current [facility] 00:[facility]:00 00:[facility]:00 non-drinker of Hospital alcohol (finding) Sex Ass[birth year] At [birth year] [facility] Smoking Status Start Date Stop Date Source Former smoker 2018-03-19 00:00:00 2018-03-19 00:00:00 [facility] Medications Ordered Filled Start Stop Current Ordering Indication Dosage Frequency Signature Comments Components Source Medication Medication Date Date Medication? Clinician (SIG) Name Name lisinopriL- Yes [id number] 1{tbl} QD TAKE 1 [facility] hydrochloro 7-[address] thiazide 00:00: MOUTH Hospita (PRINZIDE) 00 DAILY l 10-12.5 mg per tablet metoprolol Yes [id number] TAKE 1 Me thodi tartrate 7-29 TABLET(50 st (LOPRESSOR) 00:00: MG) BY Hosp [facility] 50 mg 00 MOUTH l tablet TWICE DAILY metoprolol 2020- No [id number] TAKE 1 M [facility] tartrate 4-26 07-29 TABLET(50 st (LOPRESSOR) 00:00: 00:00 MG) BY Hos [facility] 50 mg 00 :00 MOUTH l tablet TWICE DAILY lisinopriL- 0 2020- No [id number] 1{tbl} QD TAKE 1 [facility] hydrochloro 4-26 07-[address] thiazide 00:00: 00:00 MOUTH [facility]osp[facility] (PRINZIDE) 00 :00 DAILY l 10-12.5 mg per tablet lisinopriL- 2020- No [id number] 1{tbl} QD Take 1 [facility] hydrochloro 1-25 04-[address] thiazide 00:00: 00:00 mouth Hospita (PRINZIDE) 00 :00 daily. l 10-12.5 mg per tablet metoprolol 2020- No [id number] 50mg Q.5D Take 1 M [facility] tartrate 1-25 04-26 tablet (50 st (LOPRESSOR) 00:00: 00:00 mg total) Hospita 50 mg 00 :00 by mouth 2 l tablet (two) times a day. lisinopril- 2020- No [id number] 1{tbl} QD TAKE 1 [facility] hydrochloro 1-30 -[address] thiazide 00:00: 00:00 MOUTH [facility]osp[facility] (PRINZIDE) 00 :00 DAILY l 10-12.5 mg per tablet metoprolol 2020- No [id number] TAKE 1 M [facility] tartrate 03-17-25 TABLET(50 st (LOPRESSOR) 00:00: 00:00 MG) BY [...] by Met brianne in-folic 8-[address] [id number] 16:39: Hospita 200 mcg 47 l tablet [...] Source Future Scheduled Test COVID-19 VACCINE (1) [facility] [code = COVID-19 VACCINE (1)] Future Scheduled Test Hepatitis C screening [facility] (procedure) [code = 769241053] Future Scheduled Test Screening for malignant [facility] neoplasm of cervix (procedure) [code = 666713207] Future Scheduled Test BREAST CANCER SCREENING [facility] [code = BREAST CANCER SCREENING] Future Scheduled Test COLONOSCOPY SCREENING [facility] [code = COLONOSCOPY SCREENING] Future Scheduled Test SHINGLES VACCINES (#1) [facility] [code = SHINGLES VACCINES (#1)] Future Scheduled Test INFLUENZA VACCINE [code [facility] = INFLUENZA VACCINE] Encounters Start End Encounter Admission Attending Care Care Encounter Source Date/Time Date/Time Type Type Clinicians Facility Department ID 2020-09-12 2020-09-12 Refill Kaci, 1.2.840.1 [id number] [facility] 00:00:00 00:00:00 Ace Taylor [address] 3.430.2.7 Hospit a .3.135401 l .8 2020-06-11 2020-06-11 Refill Kaci [id number] [facility] 00:00:00 00:00:00 Ace Taylor [address] 3.430.2.7 Hospit a .3.669103 l .8 2020-03-12 2020-03-12 Orders Javier May 1.2.840.1 [id number] [facility] 00:[facility]:00 00:00:[address] 3.430.2.7 Hospit a .3.765810 l .8 Results This patient has no known results.
[2021-01-08] MEDS ORDERED: ONDANSETRON 4 MG/2 ML VIAL ONE ×2 (17:13→18:32)
[2021-01-08] MEDS ORDERED: MORPHINE 4 MG/ML SYR ONE ×2 (17:13→18:32)
[2021-01-08 17:32] LABS: Absolute Lymphocytes (CBC) 2.4 K/uL (0.7-4.9); Basophils % 0.6 % (0-1.3); Hematocrit 39.5 % (36.0-45.0); Lymphocytes % 30.4 % (15.3-44.8); MPV 7.1 fL (7.6-11.3); RBC Red Blood Cell Count 4.37 M/uL (3.86-4.86)
[2021-01-08 17:43] LABS: Bilirubin Direct 0.1 mg/dL (0-0.2); Bilirubin Total 0.3 mg/dL (0.2-1.0); Potassium 3.6 mmol/L (3.5-5.1); Protein, Total 6.6 g/dL (6.4-8.2)
--- NOTE | 2021-01-08 18:35 | RAD REPORT ---
EXAM DESCRIPTION: CT - Abdomen Pelvis W Contrast - 01/08/2021 6:19 pm CLINICAL HISTORY: ABD PAIN COMPARISON: Abdomen Pelvis W Contrast dated 12/09/2020 TECHNIQUE: Biphasic, helical CT imaging of the abdomen and pelvis was performed following 100 ml non -ionic IV contrast. No oral contrast administered. All CT scans are performed using dose optimization technique as appropriate and may include automated exposure control or mA/KV adjustment according to patient size. FINDINGS: No suspicious findings in the lung bases. The liver, spleen, and pancreas show no suspicious findings. Jaquez of the gallbladder appears slightl y thickened but not clearly different from comparison. An acute gallbladder process is not suspected. No abnormal biliary tree dilatation. Symmetric renal function is seen with no hydronephrosis or suspicious renal mass. No pyelonephritis o r acute parenchymal process. No bladder abnormalities. No adrenal abnormalities. Upper pole right benji al cyst again noted. Uterus and ovaries show no suspicious findings. Fluid fills but does not dilate the stomach. No outlet obstruction. No duodenum abnormality identifie d. Proximal jejunum is unremarkable. Dilated small bowel loops are present in the mid abdomen. Small bowel is dilated up to 6 cm. Where the small bowel extends into the right lower quadrant there is sof t tissue mass density and stranding that radiates from the small bowel to the terminal ileum and ileo cecal valve region. This is a region of scarring and lumen stricture that matches the December 09 imag ing. Distal ileum is otherwise decompressed. Colon is mostly decompressed. Prominent sigmoid divertic ulosis present without diverticulitis. No abscess, extraluminal free air or other surgically emergent finding. No pneumatosis seen. No bulky lymphadenopathy or new mass lesion. Stable bony degenerative changes noted. IMPRESSION: Mechanical small bowel obstruction with small bowel dilated to 6 cm. Abrupt transition with scarring and stricture seen in the right lower quadrant similar to the December 09 study. No abscess, free air or surgically emergent complication.
[2021-01-08] MEDS ORDERED: METHYLPREDNISOLONE 125 MG INJ ONE (18:55)
[2021-01-08] MEDS ORDERED: PIPERACIL/TAZO 3.375 GM VIAL IV ONE (18:55)
[2021-01-08] MEDS ORDERED: NA CHLORIDE 0.9% 100 ML ONE (18:55)
--- NOTE | 2021-01-08 18:56 | EDPHYS ---
Physician Documentation [facility] Name: Kindra Novoa Age: 65 yrs Sex: Female : 1955 Arrival Date: 01/08/2021 Time: 16:50 Bed 13 Private MD: ED Physician Chad Xiong HPI: 01/08 18:28 This 65 yrs old Female presents to ER via Ambulatory with complaints of Abdominal Pain. jr8 18:28 This is a 65-year-old female with a history of Crohn's disease and bowel obstructions jr8 that presented to the emergency room with a 1 day history of acute onset mid upper abdominal pain with nausea. Denies any vomiting or abnormal bowel movements at this time. Denies fevers as well. Patient stated that the pain that she is feeling today is similar to that of which she has had in the past and the being a bowel obstruction.. Historical: - Allergies: 16:58 buspirone; iw 16:58 Ciprofloxacin; iw 16:58 Flagyl; iw 16:58 Latex, Natural Rubber; iw - Home Meds: 16:58 bupropion HCl 150 mg Oral Tb24 once daily [Active]; bupropion HCl 75 mg Oral tab iw nightly [Active]; cholecalciferol (vitamin D3) 5,000 unit Oral cap daily [Active]; ferrous sulfate 325 mg (65 mg iron) Oral tab daily [Active]; Humira Pen subcutaneous [Active]; levothyroxine 25 mcg tab 1 tab once daily [Active]; lisinopril-hydrochlorothiazide 10-12.5 mg Oral tab 1 tab once daily [Active]; metformin 500 mg Oral tr24 1 tab once daily [Active]; metoprolol tartrate 50 mg Oral tab 1 tab 2 times per day [Active]; Pentasa Oral [Active]; sertraline 50 mg Oral tab 1 tab once daily [Active]; sertraline 100 mg Oral tab 1 tab nightly [Active]; - PMHx: 16:58 Colitis; Crohn's Disease; Depression; Hypertension; Hypothyroidism; Insulin Resistance; iw - Immunization history:: Client reports having NOT received the Covid vaccine. - Social history:: Smoking status: Patient reports the use of cigarette tobacco products, Patient denies any tobacco usage or history of. ROS: 18:28 Eyes: Negative for injury, pain, redness, and discharge, ENT: Negative for injury, jr8 pain, and discharge, Neck: Negative for injury, pain, and swelling, Cardiovascular: Negative for chest pain, palpitations, and edema, Respiratory: Negative for shortness of breath, cough, wheezing, and pleuritic chest pain, Back: Negative for injury and pain, MS/Extremity: Negative for injury and deformity, Skin: Negative for injury, rash, and discoloration, Neuro: Negative for headache, weakness, numbness, tingling, and seizure. 18:28 Abdomen/GI: Positive for abdominal pain, nausea, Negative for vomiting, diarrhea, abdominal distension, hematemesis, black/tarry stool, rectal pain, rectal bleeding, bowel incontinence, flatulence. Exam: 18:28 Cardiovascular: Regular rate and rhythm with a normal S1 and S2. No gallops, murmurs, jr8 or rubs. Normal PMI, no JVD. No pulse deficits. Respiratory: Lungs have equal breath sounds bilaterally, clear to auscultation and percussion. No rales, rhonchi or wheezes noted. No increased work of breathing, no retractions or nasal flaring. Back: No spinal tenderness. No costovertebral tenderness. Full range of motion. Skin: Warm, dry with normal turgor. Normal color with no rashes, no lesions, and no evidence of cellulitis. MS/ Extremity: Pulses equal, no cyanosis. Neurovascular intact. Full, normal range of motion. Neuro: Awake and alert, GCS 15, oriented to person, place, time, and situation. Cranial nerves II-XII grossly intact. Motor strength 5/5 in all extremities. Sensory grossly intact. 18:28 Constitutional: The patient appears alert, awake, in obvious pain. 18:28 Abdomen/GI: Inspection: obese Bowel sounds: active, all quadrants, Palpation: soft, in all quadrants, moderate abdominal tenderness, in the Mid upper abdomen, mass, is not appreciated, rebound tenderness, is not appreciated, voluntary guarding, is not appreciated, involuntary guarding, is not appreciated, no appreciated organomegaly, Indicators: McBurney's point is not tender, Rios's sign is negative, Rovsing's sign is negative. Vital Signs: 16:57 BP 162 / 68; Pulse 102; Resp 20 S; Pulse Ox 95% on R/A; Weight 105.23 kg; Height 5 ft. iw 1 in. (154.94 cm); Pain 10/10; 17:15 BP 114 / 69; Pulse 84; Resp 18; Pulse Ox 100% on R/A; Pain 10/10; jh6 20:40 BP 131 / 64; Pulse 79; Resp 18; Pulse Ox 91% on R/A; df1 16:57 Body Mass Index 43.84 (105.23 kg, 154.94 cm) iw MDM: 17:08 Patient medically screened. jr8 18:53 Data reviewed: vital signs, nurses notes, lab test result(s), radiologic studies, CT jr8 scan. Data interpreted: Pulse oximetry: on room air is 100 %. Interpretation: normal. Counseling: I had a detailed discussion with the patient and/or guardian regarding: the historical points, exam findings, and any diagnostic results supporting the discharge/admit diagnosis, lab results, radiology results, the need for further work-up and treatment in the hospital. ED course: Dr. Soriano notified about bowel obstruction. Will see patient for consult . 01/08 17:02 Order name: Basic Metabolic Panel; Complete Time: 18:34 iw 01/08 17:02 Order name: CBC with Diff; Complete Time: 18:34 iw 01/08 17:02 Order name: Hepatic Function; Complete Time: 18:34 iw 01/08 17:02 Order name: Lipase; Complete Time: 18:34 iw 01/08 17:07 Order name: CT Abd/Pelvis - IV Contrast Only; Complete Time: 18:46 [facility] 01/08 18:50 Order name: SARS-COV-2 RT PCR (Document "Date of Onset" if Symptomatic); Complete Time: iw 20:11 01/08 17:02 Order name: IV Saline Lock; Complete Time: 17:23 iw 01/08 20:06 Order name: XRAY Chest (1 view) bb 01/08 17:02 Order name: Labs collected and sent; Complete Time: 17:23 iw Administered Medications: 17:21 Drug: morphine 4 mg Route: IVP; Site: left antecubital; iw 17:30 Follow up: Response: Pain is decreased jh6 18:22 Follow up: Response: No adverse reaction jh6 17:21 Drug: Zofran (Ondansetron) 4 mg Route: IVP; Site: left antecubital; iw 17:30 Follow up: Response: Pain is decreased jh6 18:22 Follow up: Response: No adverse reaction jh6 20:43 Follow up: Response: No adverse reaction df1 18:45 Drug: morphine 4 mg Route: IVP; Site: left antecubital; jh6 20:43 Follow up: Response: Pain is decreased df1 18:45 Drug: Zofran (Ondansetron) 4 mg Route: IVP; Site: left antecubital; jh6 20:43 Follow up: Response: No adverse reaction df1 19:06 Drug: SOLU-Medrol (methylPrednisoLONE) 125 mg Route: IVP; Site: left antecubital; 6 20:43 Follow up: Response: No adverse reaction df1 19:06 Drug: Zosyn (piperacillin-tazobactam) 3.375 grams Route: IVPB; Infused Over: 60 mins; 6 Site: left antecubital; Disposition: 01/09 08:16 Co-signature as Attending Physician, Chad Xiong MD I agree with the assessment and kdr plan of care. Disposition Summary: 01/08/21 18:55 Hospitalization Ordered Hospitalization Status: Inpatient Admission 8 Provider: Kevin Costa jr Location: Telemetry/MedSurg (Inpatient) 8 Condition: Stable jr8 Problem: new jr8 Symptoms: have improved jr8 Bed/Room Type: Standard [facility] Room Assignment: 216(01/08/21 20:21) Diagnosis - Small Bowel Obstruction jr8 - Crohn's disease of small intestine with intestinal obstruction jr8 Forms: - Medication Reconciliation Form jr8 - SBAR form jr8 Signatures: Dispatcher [employer] Mariposa Mckeon RN RN mw Rittger, Kevin, MD MD kdr Williams, Irene, RN RN iw Roszak, Josh, PA PA jr8 Ray Barroso FNP-C [employer]-Moriah Gregory RN RN 6 Padmini Bonilla df1 Corrections: (The following items were deleted from the chart) 01/08 20:21 18:55 jr8 mw
--- NOTE | 2021-01-08 18:56 | ER ---
Nurse's Notes [facility] Name: Kindra Novoa Age: 65 yrs Sex: Female : 1955 Arrival Date: 01/08/2021 Time: 16:50 Bed 13 Private MD: Diagnosis: Small Bowel Obstruction;Crohn's disease of small intestine with intestinal obstruction Presentation: 01/08 16:57 Chief complaint: Patient states: mid abd pain started today, no vomiting or diarrhea, iw +nausea, hx of bowel obstruction. Coronavirus screen: At this time, the client does not indicate any symptoms associated with coronavirus-19. Ebola Screen: Patient negative for fever greater than or equal to 101.5 degrees Fahrenheit, and additional compatible Ebola Virus Disease symptoms Patient denies exposure to infectious person. Patient denies travel to an Ebola-affected area in the 21 days before illness onset. No symptoms or risks identified at this time. Initial Sepsis Screen: Does the patient meet any 2 criteria? No. Patient's initial sepsis screen is negative. Does the patient have a suspected source of infection? No. Patient's initial sepsis screen is negative. Risk Assessment: Do you want to hurt yourself or someone else? Patient reports no desire to harm self or others. Onset of symptoms was January 08, 2021. 16:57 Method Of Arrival: Ambulatory iw 16:57 Acuity: KAROL 3 iw Historical: - Allergies: 16:58 buspirone; iw 16:58 Ciprofloxacin; iw 16:58 Flagyl; iw 16:58 Latex, Natural Rubber; iw - Home Meds: 16:58 bupropion HCl 150 mg Oral Tb24 once daily [Active]; bupropion HCl 75 mg Oral tab iw nightly [Active]; cholecalciferol (vitamin D3) 5,000 unit Oral cap daily [Active]; ferrous sulfate 325 mg (65 mg iron) Oral tab daily [Active]; Humira Pen subcutaneous [Active]; levothyroxine 25 mcg tab 1 tab once daily [Active]; lisinopril-hydrochlorothiazide 10-12.5 mg Oral tab 1 tab once daily [Active]; metformin 500 mg Oral tr24 1 tab once daily [Active]; metoprolol tartrate 50 mg Oral tab 1 tab 2 times per day [Active]; Pentasa Oral [Active]; sertraline 50 mg Oral tab 1 tab once daily [Active]; sertraline 100 mg Oral tab 1 tab nightly [Active]; - PMHx: 16:58 Colitis; Crohn's Disease; Depression; Hypertension; Hypothyroidism; Insulin Resistance; iw - Immunization history:: Client reports having NOT received the Covid vaccine. - Social history:: Smoking status: Patient reports the use of cigarette tobacco products, Patient denies any tobacco usage or history of. Screenin:15 Abuse screen: Denies threats or abuse. Nutritional screening: No deficits noted. jh6 Tuberculosis screening: No symptoms or risk factors identified. Fall Risk None identified. Assessment: 17:15 Pain: Complains of pain in abdomen Pain does not radiate. Pain currently is 10 out of jh6 10 on a pain scale. Quality of pain is described as crampy, Pain began Is continuous, Aggravated by eating, increased activity. 17:15 GI: Bowel sounds present X 4 quads. present in right upper quadrant, left upper jh6 quadrant, right lower quadrant and left lower quadrant Abd is soft Abdomen is tender to palpation in left upper quadrant. 17:20 General: Appears in no apparent distress. uncomfortable, Behavior is calm, cooperative. 6 Vital Signs: 16:57 BP 162 / 68; Pulse 102; Resp 20 S; Pulse Ox 95% on R/A; Weight 105.23 kg; Height 5 ft. iw 1 in. (154.94 cm); Pain 10/10; 17:15 BP 114 / 69; Pulse 84; Resp 18; Pulse Ox 100% on R/A; Pain 10/10; jh6 20:40 BP 131 / 64; Pulse 79; Resp 18; Pulse Ox 91% on R/A; df1 16:57 Body Mass Index 43.84 (105.23 kg, 154.94 cm) iw ED Course: 16:50 Patient arrived in ED. rg4 16:58 Triage completed. iw 16:59 Arm band placed on. iw 17:07 Jb Doherty PA is PHCP. jr8 17:07 Chad Xiong MD is Attending Physician. jr8 17:09 Moriah Godinez, CHRISTIANO is Primary Nurse. 6 17:17 Initial lab(s) drawn, by in, sent to lab. Inserted saline lock: 22 gauge in left kj1 antecubital area, using aseptic technique. Blood collected. 18:18 CT Abd/Pelvis - IV Contrast Only In Process Unspecified. EDMS 18:[address] Scan. jh6 18:55 Kevin Costa MD is Hospitalizing Provider. jr8 19:06 SARS-COV-2 RT PCR (Document "Date of Onset" if Symptomatic) Sent. jh6 20:40 Patient has correct armband on for positive identification. Placed in gown. Bed in low df1 position. Call light in reach. Side rails up X 1. Adult w/ patient. 20:40 No provider procedures requiring assistance completed. df1 21:05 Patient admitted, IV remains in place. df1 Administered Medications: 17:21 Drug: morphine 4 mg Route: IVP; Site: left antecubital; iw 17:30 Follow up: Response: Pain is decreased jh6 18:22 Follow up: Response: No adverse reaction jh6 17:21 Drug: Zofran (Ondansetron) 4 mg Route: IVP; Site: left antecubital; iw 17:30 Follow up: Response: Pain is decreased jh6 18:22 Follow up: Response: No adverse reaction jh6 20:43 Follow up: Response: No adverse reaction df1 18:45 Drug: morphine 4 mg Route: IVP; Site: left antecubital; jh6 20:43 Follow up: Response: Pain is decreased df1 18:45 Drug: Zofran (Ondansetron) 4 mg Route: IVP; Site: left antecubital; jh6 20:43 Follow up: Response: No adverse reaction df1 19:06 Drug: SOLU-Medrol (methylPrednisoLONE) 125 mg Route: IVP; Site: left antecubital; jh6 20:43 Follow up: Response: No adverse reaction df1 19:06 Drug: Zosyn (piperacillin-tazobactam) 3.375 grams Route: IVPB; Infused Over: 60 mins; 6 Site: left antecubital; Outcome: 18:55 Decision to Hospitalize by Provider. jr8 21:05 Admitted to Med/surg accompanied by tech. df1 21:05 Condition: good 21:05 Instructed on the need for admit. 21:05 Patient left the ED. df1 Signatures: Dispatcher [employer] EDMS Adriane Moran RN RN iw Jb Doherty PA PA jr8 Uyen Arriola rg4 Irene Lerma kj1 Padmini Bonilla df1 Moriah Godinez, RN RN jh6
--- NOTE | 2021-01-08 19:41 | P.HP ---
Certification for Inpatient Patient admitted to: Inpatient With expected LOS: >2 Midnights Patient will require the following post-hospital care: None Practitioner: I am a practitioner with admitting privileges, knowledge of patient current condition, hospital course, and medical plan of care. Services: Services provided to patient in accordance with Admission requirements found in Title 42 Section 412.3 of the Code of Federal Regulations Patient History Date of Service: 01/08/21 Primary Care Provider: Moriah Vasquez Reason for admission: SBO History of Present Illness: 65-year-old female with history of Crohn's disease, hypertension, hypothyroidism, prediabetes, obesity presents emergency department for abdominal pain that began yesterday. Patient with history of multiple small bowel obstructions in the past, none have required surgery. Patient was evaluated in the emergency department labs were unremarkable CT abdomen pelvis with IV contrast demonstrated mechanical small bowel obstruction with small bowel dilated to 6 cm with abrupt transition with scarring and stricture seen in the right lower quadrant similar to the December 09 study. No abscess, free air or surgically emergent complication noted. Emergency department provider discussed case with general surgery who recommended admission to hospital service, n.p.o., IV fluids, IV antibiotics and steroids. When I saw and examined patient she is alert, oriented x4 in no distress with mild abdominal pain and mild abdominal tenderness. Patient without active vomiting no NG tube in place at this time. Allergies ciprofloxacin Allergy (Verified 07/12/20 22:34) Itching/Hives/Rash latex [Latex] Allergy (Verified 05/12/11 07:41) Itching/Hives/Rash Latex, Natural Rubber Allergy (Verified 06/07/20 05:52) Unknown metronidazole Allergy (Verified 07/12/20 22:34) Itching/Hives/Rash buspirone Adverse Reaction (Verified 07/12/20 22:35) Nausea/Vomiting Home Medications: Bupropion HCl [Wellbutrin] 75 mg PO BEDTIME 07/27/20 Cholecalciferol (Vitamin D3) [Vitamin D3] 5,000 unit PO DAILY 07/27/20 Levothyroxine Sodium 25 mcg PO DAILY 07/27/20 Sertraline [Zoloft*] 150 mg PO DAILY 07/27/20 Adalimumab [Humira 40 MG/0.8 ML*] 40 mg SQ Q14D 10/28/20 Mesalamine [Pentasa*] 500 mg PO BID 10/28/20 Ondansetron [Zofran (Odt)*] 4 mg PO Q6H PRN 12/10/20 buPROPion HCL [Bupropion HCl] 150 mg PO DAILY 12/10/20 Amoxicillin/Potassium Clav [Augmentin 500-125 Tablet] 1 each PO BID #10 tablet 12/13/20 Lactobacillus Acidophilus [Acidophilus Lactobacilli] 1 each PO TID #90 capsule 12/13/20 lisinopriL [Prinivil*] 5 mg PO DAILY #30 tab 12/13/20 predniSONE [Prednisone*] 20 mg PO SEECOM #25 tab 12/13/20 - Past Medical/Surgical History Diabetic: No -: HTN -: Prediabetes -: Hypothyroidism -: Depression -: Recurrent SBO -: GERD -: Psychosocial/ Personal History: Patient is . - Family History Father -: Cancer Mother -: Heart disease - Social History Smoking Status: Never smoker Alcohol use: No CD- Drugs: No Caffeine use: Yes Place of Residence: Home Review of Systems 10-point ROS is otherwise unremarkable Gastrointestinal: Nausea, Abdominal Pain, Distention Physical Examination - Physical Exam General: Alert, In no apparent distress, Oriented x3 HEENT: Atraumatic, PERRLA, Mucous membr. moist/pink, EOMI, Sclerae nonicteric Neck: Supple, 2+ carotid pulse no bruit, No LAD, Without JVD or thyroid abnormality Respiratory: Clear to auscultation bilaterally, Normal air movement Cardiovascular: Regular rate/rhythm, Normal S1 S2 Gastrointestinal: Hypoactive, No rebound, No guarding, Distended, Tenderness (Mild generalized abdominal tenderness) Musculoskeletal: No tenderness Integumentary: No rashes Neurological: Normal speech, Normal strength at 5/5 x4 extr, Normal tone, Normal affect - Studies Laboratory Data (last 24 hrs) 01/08/21 17:17: WBC 8.00, Hgb 12.9, Hct 39.5, Plt Count 351 01/08/21 17:17: Sodium 144, Potassium 3.6, BUN 14, Creatinine 0.89, Glucose 104, Total Bilirubin 0.3, AST 15, ALT 22, Alkaline Phosphatase 112, Lipase 89 Assessment and Plan - Plan Assessment: Recurrent small bowel obstruction complicated with history of Crohn's disease Hypertension Hypothyroidism Prediabetes Obesity Plan: Recurrent small bowel obstruction complicated with history of Crohn's disease: Continue with IV fluids, IV steroids, IV Zosyn. N.p.o. General surgery consult in place, encouraged ambulation. NG tube for worsening abdominal pain, distention or vomiting. Hypertension: Patient is n.p.o. at this time will need to provide as needed medications through IV, restart home medications when appropriate Hypothyroidism: Obtain thyroid panel, continue home medications when appropriate Prediabetes: Patient reports that during her last hospitalization she was taken off of her Metformin as she was told it could be contributing to her GI issues. Patient reports insulin resistance without diagnosis of diabetes obtain A1c. Obesity: Counseled on Lifestyle Changes DVT PPX: Lovenox Code status: Full Discharge Plan: Home Plan to discharge in: Greater than 2 days - Advance Directives Does patient have a Living Will: No Does patient have a Durable POA for Healthcare: No - Code Status/Comfort Care Code Status Assessed: Yes (Full code) Critical Care: No Time Spent Managing Pts Care (In Minutes): 55
--- NOTE | 2021-01-08 21:09 | RAD REPORT ---
EXAM DESCRIPTION: RAD - Chest Single View - 01/08/2021 8:56 pm CLINICAL HISTORY: abdominal pain COMPARISON: December 11, December 09 TECHNIQUE: AP portable chest image was obtained 01/08/2021 8:56 pm . FINDINGS: Lungs are clear. Interstitial pattern matches comparison. Heart and vasculature are normal . No measurable pleural effusion and no pneumothorax. No acute bony abnormality seen. No acute aortic findings suspected. IMPRESSION: No acute cardiopulmonary process. No significant change from comparison study.
[2021-01-08 21:13] VITALS: BMI 44.6
[2021-01-08] MEDS: INSULIN -REGULAR HUMAN 50 UNIT/0.5 ML ML SQ SCH (21:40)
[2021-01-08] MEDS ORDERED: GLUCAGON 1 MG/VIAL IM PRN (21:58)
[2021-01-08] MEDS ORDERED: D50W 25 GM/50 ML SYRINGE IV PRN (21:58)
[2021-01-08] MEDS: D5.45NS W/KCL 20MEQ 1,000 ML IV SCH (22:28)
[2021-01-08] MEDS: MORPHINE 2 MG/ML SYR IV PRN (22:29)
[2021-01-08] MEDS: ONDANSETRON 4 MG/2 ML VIAL IV PRN (22:39)
[2021-01-09] MEDS ORDERED: INSULIN -REGULAR HUMAN 50 UNIT/0.5 ML ML SQ SCH
[2021-01-09] MEDS: METHYLPREDNISOLONE 40 MG INJ IV SCH ×3 (00:30→16:18)
[2021-01-09] MEDS: ONDANSETRON 4 MG/2 ML VIAL IV PRN (04:09)
[2021-01-09] MEDS: MORPHINE 2 MG/ML SYR IV PRN ×4 (04:09→21:32)
[2021-01-09 05:33] LABS: Basophils % 0.2 % (0-1.3); Hematocrit 37.8 % (36.0-45.0); Lymphocytes % 20.7 % (15.3-44.8); MPV 7.2 fL (7.6-11.3); RBC Red Blood Cell Count 4.17 M/uL (3.86-4.86)
[2021-01-09 06:01] LABS: Albumin 2.6 g/dL (3.4-5.0); Bilirubin Total 0.2 mg/dL (0.2-1.0); Magnesium 2.2 mg/dL (1.8-2.4); Protein, Total 6.2 g/dL (6.4-8.2); Thyroid Stimulating Hormone 0.619 uIU/mL (0.360-3.740)
[2021-01-09] MEDS: INSULIN -REGULAR HUMAN 50 UNIT/0.5 ML ML SQ SCH ×4 (07:30→20:10)
[2021-01-09] MEDS: D5.45NS W/KCL 20MEQ 1,000 ML IV SCH ×2 (07:40→16:18)
[2021-01-09] MEDS ORDERED: INFLUENZA VACCINE (for 6+ mo) 0.5 ML DOSE IMVAC ONE (08:00)
[2021-01-09] MEDS: ENOXAPARIN 40 MG/0.4 ML SQ SCH (11:53)
--- NOTE | 2021-01-09 14:44 | P.PN ---
Date of Service: 01/09/21 Subjective: No acute events since admission Reports a little bit of improvement in her pain/discomfort No flatus, no BM. Urinating without issue No nausea/vomiting this morning Pain is in the upper abdomen ROS: 10 point ROS as noted above, otherwise negative Physical exam GEN: Alert, oriented, NAD HEENT: Normal conjunctiva, sclera anicteric CV: Regular rate and rhythm, no edema Pulm: Nonlabored respiration on room air ABD: mild tenderness in epigastrium, minimally distended MSK: No joint tenderness Integumentary: No rashes Neuro: Normal speech, normal affect Problem List Recurrent small bowel obstruction complicated with history of Crohn's disease Hypertension Hypothyroidism Prediabetes Obesity Continue n.p.o., IV fluids, Zosyn. Started on steroids given history of Crohn's disease General surgery consulted No nausea/vomiting, can hold off on NG tube for now Patient needs bowel rest for this mechanical obstruction Hopefully can avoid surgery She has had multiple episodes of this Check KUB in a.m. Dispo: Anticipate DC home in 1-2 days, once obstruction resolves Time Spent Managing Pts Care (In Minutes): 35
--- NOTE | 2021-01-09 19:14 | CON ---
Date of Consultation: 01/09/2021 Brief History Of Present Illness: The patient is a 65-year-old female known to me with a p revious history of Crohn disease particularly in the terminal ileum, who presents with hypertension, hypothyroidism, prediabetes, obesity, and multiple abdominal partial obstruction due to Crohn exacerb ations. She was treated successfully on multiple occasions with bowel obstructions, with steroid pul se treatment of her Crohn disease and she usually has significant improvement within the several days of her admission. She is currently receiving Humira and Pentasa by her report. Whenever she attemp ts a steroid taper, she states she gets recurrence of her intraabdominal complications. She currentl y states that she had pain similar to her previous episodes with some nausea, no vomiting, but she di d have a bowel movement yesterday and has significant symptomatic improvement at this point and is hu ngry and has no abdominal pain during my examination. Past Medical History: As described Crohn disease, hypertension, hypothyroidism, prediabetes, and obe sity. Past Surgical History: She has had a . Social History: She is . She denies smoking, alcohol, or recreational drug use. Medications: Her home medications include potassium, Humira, Zofran, bupropion, Augmentin, lactobaci llus, lisinopril, and prednisone. Allergies: SHE IS ALLERGIC TO LASIX, CIPRO, FLAGYL, AND BUSPAR. Review of Systems: Ten-point review of systems other than HPI, denies. Physical Examination: Vital Signs: At the time of my examination, her BMI is 44.6, blood pressure is 130/70, SpO2 is 99% o n room air, heart rate is 60, respiratory rate 18, and temperature 97.0. General: She is awake, alert, and oriented. Psychiatric: She is appropriately conversive. HEENT: Normocephalic. Sclerae anicteric. Mucous membranes moist. Oropharynx clear. Neck: Supple without JVD. Chest: Normal expansion and excursion. Cardiovascular: Regular rate and rhythm. Pulmonary: Clear to auscultation bilaterally. Abdomen: Soft, nontender, and nondistended. No rebound. No guarding. No focal peritonitis. She i s obese generally. Extremities: No clubbing, cyanosis, or edema. Skin: Warm and dry. Laboratory Data: Laboratory exam reveals a white blood cell count of 5.0, hemoglobin 12.2, hematocri t 37.8, platelet count is 305, and neutrophils are 77%. Her sodium is 143, potassium 5.0, chloride 1 10, carbon dioxide 29, BUN 11, creatinine 0.8, and glucose is 151. COVID was negative. She had imag ing performed, which included an abdomen and pelvis CT, officially read as mechanical small bowel obs truction with small bowel dilated to 6 cm abrupt transition with scarring and stricture seen in the r ight lower quadrant similar to December 09 study. No free air, abscess, or surgically emergent compli cation. Assessment And Plan: This is a 65-year-old female with a history of Crohn disease, who presents with recurrent Crohn exacerbation causing small-bowel obstruction of similar location. 1.IV fluid hydration. 2.N.p.o. 3.Serial abdominal exams. 4.Pulse steroids per Gastroenterology recommendation. 5.The patient is going to follow up with gastrologist for likely modification of her Crohn disease t reatment plan to help reduce these exacerbations. I do not recommend surgical intervention at this t sara and we will continue to follow. RODGER/ALIREZA Voice ID: [id number] Report ID: [id number]
[2021-01-09 23:07] VITALS: O2SAT 96
[2021-01-10] MEDS: MORPHINE 2 MG/ML SYR IV PRN ×2 (01:43→08:24)
[2021-01-10] MEDS: METHYLPREDNISOLONE 40 MG INJ IV SCH ×3 (01:43→16:52)
[2021-01-10] MEDS: D5.45NS W/KCL 20MEQ 1,000 ML IV SCH ×2 (01:53→11:45)
[2021-01-10 06:19] LABS: Basophils % 0.2 % (0-1.3); Hematocrit 39.6 % (36.0-45.0); Lymphocytes % 16.4 % (15.3-44.8); MPV 7.4 fL (7.6-11.3); RBC Red Blood Cell Count 4.34 M/uL (3.86-4.86)
[2021-01-10 06:40] LABS: Bilirubin Total 0.2 mg/dL (0.2-1.0); C-Reactive Protein 4.26 mg/L (<3.00); Magnesium 2.3 mg/dL (1.8-2.4); Potassium 4.7 mmol/L (3.5-5.1); Protein, Total 6.6 g/dL (6.4-8.2)
--- NOTE | 2021-01-10 07:18 | RAD REPORT ---
EXAM DESCRIPTION: RAD - Abdomen 1 View (KUB) - 01/10/2021 6:43 am CLINICAL HISTORY: Abdomen pain. FINDINGS: A few moderately dilated loops of small bowel are mild diminished in size from the CAT scan. This probably indicates mild improvement in a small bowel obstruction Air is present within portions of the colon. No free air is not visualized.
[2021-01-10] MEDS: INSULIN -REGULAR HUMAN 50 UNIT/0.5 ML ML SQ SCH ×4 (07:30→20:48)
[2021-01-10] MEDS: lisinopriL 5 MG TAB PO SCH (08:23)
[2021-01-10] MEDS: buPROPion HCL 100 MG TAB PO SCH (08:23)
[2021-01-10] MEDS: LEVOTHYROXINE SOD 0.025 MG TAB PO SCH (08:23)
[2021-01-10] MEDS: SERTRALINE HCL 100 MG TAB PO SCH (08:24)
[2021-01-10] MEDS: ENOXAPARIN 40 MG/0.4 ML SQ SCH (08:24)
--- NOTE | 2021-01-10 13:19 | P.PN ---
Subjective Date of Service: 01/10/21 Primary Care Provider: Moriah Vasquez Chief Complaint: SBO Subjective: Improving (tolerated clears and fulls, no pain, passing gas) Physical Examination - Vital Signs Temperature: 97.2 F Blood Pressure: 150/67 Pulse: 70 Respirations: 18 Pulse Ox (%): 97 - Physical Exam General: Alert, In no apparent distress, Cooperative Respiratory: Clear to auscultation bilaterally, Normal air movement Cardiovascular: Regular rate/rhythm Gastrointestinal: Soft and benign, Non-distended, No ascites, No tenderness, No masses, No rebound, No guarding Assessment And Plan - Current Problems (Diagnosis) (1) Crohn's disease Current Visit: No Status: Chronic Plan: - advance diet - continue medical management - no surgical intervention - follow up with Dr. Maki as outpatient Qualifiers: Gastrointestinal tract location: unspecified location Digestive disease complication type: with intestinal obstruction Qualified Code(s): K50.912 - Crohn's disease, unspecified, with intestinal obstruction
--- NOTE | 2021-01-10 14:00 | P.PN ---
Date of Service: 01/10/21 Subjective: No BM, passing more flatus overnight Feels less distended/bloated, no nausea/vomiting Tolerated some clear liquid diet, overall feeling better ROS: 10 point ROS as noted above, otherwise negative Physical exam GEN: Alert, oriented, NAD HEENT: Normal conjunctiva, sclera anicteric CV: Regular rate and rhythm, no edema Pulm: Nonlabored respirations on room air ABD: mild tenderness in epigastrium, no distention MSK: No joint tenderness Integumentary: No rashes Neuro: Normal speech, normal affect Problem List Recurrent small bowel obstruction complicated with history of Crohn's disease Hypertension Hypothyroidism Prediabetes Obesity Advanced to clear liquid diet yesterday evening, tolerating well, KUB with improvement as well. Advance to full liquid diet for lunch, possibly soft diet for dinner Continue empiric antibiotics, continue steroids given history of Crohn's disease Has had another recent Crohn's flareup. Patient will need to follow-up with GI on discharge General surgery consulted -recommend continued medical management, advance diet slowly Continue home medication, levothyroxine and antihypertensive Dispo: Anticipate DC home in 24-48 hours Time Spent Managing Pts Care (In Minutes): 35
[2021-01-10] MEDS ORDERED: buPROPion HCL 100 MG TAB PO SCH (21:00)
[2021-01-10 22:14] LABS: Urine Appearance Clear (Clear); Urine Bilirubin Negative (Negative); Urine Blood Negative (Negative); Urine Color Yellow (Yellow); Urine Glucose Negative (Negative); Urine Protein Negative (Negative); Urine Urobilinogen 0.2 mg/dL (0.2-1.0)
[2021-01-10 22:17] LABS: Urine Microscopic Reflex NO UMIC
[2021-01-11] MEDS: METHYLPREDNISOLONE 40 MG INJ IV SCH ×3 (00:29→08:25)
[2021-01-11] MEDS: MORPHINE 2 MG/ML SYR IV PRN (01:01)
[2021-01-11 05:50] LABS: Albumin 2.8 g/dL (3.4-5.0); Bilirubin Total 0.2 mg/dL (0.2-1.0); Magnesium 2.1 mg/dL (1.8-2.4); Potassium 3.9 mmol/L (3.5-5.1); Protein, Total 6.1 g/dL (6.4-8.2)
--- NOTE | 2021-01-11 07:24 | P.DS ---
Admission Date: 01/08/21 Discharge Date: 01/11/21 Primary Care Provider: Moriah Vasquez Disposition: ROUTINE DISCHARGE Reason for Admission: SBO Consultations: General surgery - Dr. Soriano Procedures: CT Abd/pelvis (01/08): IMPRESSION: Mechanical small bowel obstruction with small bowel dilated to 6 cm. Abrupt transition with scarring and stricture seen in the right lower quadrant similar to the December 09 study. No abscess, free air or surgically emergent complication. CXR (01/08): IMPRESSION: No acute cardiopulmonary process. No significant change from comparison study. KUB (01/10): FINDINGS: A few moderately dilated loops of small bowel are mild diminished in size from the January 08 CT scan. This probably indicates mild improvement in a small bowel obstruction Air is present within portions of the colon. No free air is not visualized. Problem List Recurrent small bowel obstruction complicated with history of Crohn's disease, with possible crohn's flare Hypertension Hypothyroidism Prediabetes Obesity Brief History of Present Illness: 65-year-old female with history of Crohn's disease, hypertension, hypothyroidism, prediabetes, obesity presents emergency department for abdominal pain that began yesterday. Patient with history of multiple small bowel obstructions in the past, none have required surgery. Patient was evaluated in the emergency department labs were unremarkable CT abdomen pelvis with IV contrast demonstrated mechanical small bowel obstruction with small bowel dilated to 6 cm with abrupt transition with scarring and stricture seen in the right lower quadrant similar to the December 09 study. No abscess, free air or surgically emergent complication noted. Emergency department provider discussed case with general surgery who recommended admission to hospital service, n.p.o., IV fluids, IV antibiotics and steroids. When I saw and examined patient she is alert, oriented x4 in no distress with mild abdominal pain and mild abdominal tenderness. Patient without active vomiting no NG tube in place at this time. Hospital Course: Patient was empirically treated with steroids, as this was suspected to be part of a Crohn's flareup, CT noted some peripheral stranding. General surgery was consulted, and recommended medical management. Patient had gradual improvement, and diet was advanced to soft foods which patient tolerated well. She was having bowel movements and feeling back to her baseline. Discharge home to continue prednisone taper. She remained afebrile and did not receive antibiotics She is to follow-up with her GI doctor in the next few weeks. Vital Signs/Physical Exam: Physical exam GEN: Alert, oriented, NAD HEENT: Normal conjunctiva, sclera anicteric CV: Regular rate and rhythm, no edema Pulm: Nonlabored respirations on room air ABD: non-tender, no distention Temp Pulse Resp BP Pulse Ox 97.3 F 77 18 155/79 H 98 01/11/21 04:00 01/11/21 04:00 01/11/21 04:00 01/11/21 04:00 01/11/21 04:00 Laboratory Data at Discharge: WBC 5.90 K/uL (4.3-10.9) D 01/10/21 05:53 Hgb 12.9 g/dL (12.0-15.0) 01/10/21 05:53 Hct 39.6 % (36.0-45.0) 01/10/21 05:53 Plt Count 341 K/uL (152-406) 01/10/21 05:53 Sodium 146 mmol/L (136-145) H 01/11/21 05:02 Potassium 3.9 mmol/L (3.5-5.1) 01/11/21 05:02 BUN 7 mg/dL (7-18) 01/11/21 05:02 Creatinine 0.72 mg/dL (0.55-1.3) 01/11/21 05:02 Glucose 120 mg/dL (74-106) H 01/11/21 05:02 Magnesium 2.1 mg/dL (1.8-2.4) 01/11/21 05:02 Total Bilirubin 0.2 mg/dL (0.2-1.0) 01/11/21 05:02 AST 7 U/L (15-37) L 01/11/21 05:02 ALT 22 U/L (12-78) 01/11/21 05:02 Alkaline Phosphatase 96 U/L (45-117) 01/11/21 05:02 Triglycerides 66 mg/dL (<150) 01/09/21 05:05 Cholesterol 196 mg/dL (<200) 01/09/21 05:05 HDL Cholesterol 76 mg/dL (40-60) H 01/09/21 05:05 Cholesterol/HDL Ratio 2.58 01/09/21 05:05 Lipase 89 U/L (73-393) 01/08/21 17:17 Home Medications: Bupropion HCl [Wellbutrin] 75 mg PO BEDTIME 07/27/20 Cholecalciferol (Vitamin D3) [Vitamin D3] 1,000 unit PO DAILY 07/27/20 Levothyroxine Sodium 25 mcg PO DAILY 07/27/20 Sertraline [Zoloft*] 150 mg PO DAILY 07/27/20 Adalimumab [Humira 40 MG/0.8 ML*] 40 mg SQ Q14D 10/28/20 Mesalamine [Pentasa*] 500 mg PO BID 10/28/20 Ondansetron [Zofran (Odt)*] 4 mg PO Q6H PRN 12/10/20 buPROPion HCL [Bupropion HCl] 150 mg PO DAILY 12/10/20 Lactobacillus Acidophilus [Acidophilus Lactobacilli] 1 each PO TID #90 capsule 12/13/20 lisinopriL [Prinivil*] 5 mg PO DAILY #30 tab 12/13/20 predniSONE [Prednisone*] 20 mg PO DAILY 28 Days #35 tab 01/11/21 New Medications: predniSONE [Prednisone*] 20 mg PO DAILY 28 Days #35 tab Physician Discharge Instructions: Small bowel obstruction, possible start of crohns flare up. improved with bowel rest and steroids. no evidence of infection. follow up with GI in next few weeks. Diet: soft Activity: Ad jaylen Followup: Moriah Vasquez NP [Primary Care Provider] - Time spent managing pt's care (in minutes): 45
[2021-01-11] MEDS: INSULIN -REGULAR HUMAN 50 UNIT/0.5 ML ML SQ SCH (07:30)
[2021-01-11] MEDS: buPROPion HCL 100 MG TAB PO SCH (08:14)
[2021-01-11] MEDS: SERTRALINE HCL 100 MG TAB PO SCH (08:14)
[2021-01-11] MEDS: ENOXAPARIN 40 MG/0.4 ML SQ SCH (08:14)
[2021-01-11] MEDS: LEVOTHYROXINE SOD 0.025 MG TAB PO SCH (08:15)
[2021-01-11] MEDS: lisinopriL 5 MG TAB PO SCH (08:15)
[2021-01-11 08:16] VITALS: BP 134/79
[2021-01-11] MEDS ORDERED: POTASSIUM CL SA 10 MEQ TAB PO ONE (09:00)
[2021-01-11 09:14] VITALS: TEMP 97.2
== END 2021-01-11 10:03 | disposition home or self-care (01) | DRG 386 ==
LOC: ER 16:48 → ERHOLD 19:44 → 2ND 20:30
PROVIDERS: ADMIT Hospitalist; ATTEND Hospitalist
DX: K50.912 Crohn's disease, unspecified, with intestinal obstruction (principal); Z68.41 Body mass index [BMI] 40.0-44.9, adult; I10 Essential (primary) hypertension; E03.9 Hypothyroidism, unspecified; R73.03 Prediabetes; E66.9 Obesity, unspecified; Z91.040 Latex allergy status; Z20.822 Contact with and (suspected) exposure to COVID-19
CPT/HCPCS: 36415; 71045; 74018; 74177; 80048; 80053; 80061; 80076; 81003; 82947; 83036; 83690; 83735; 84439; 84443; 85025; 85652; 86140; 96374; 96375; 99285; J1650; J2270; J2405; J2543; J2920; J2930; Q9967; U0003

== ENCOUNTER 2021-02-02 21:39 | Emergency (ER) | payer BC ==
--- OUTSIDE RECORDS SUMMARY | 2021-02-02 21:42 | XMS REPORT | Continuity of Care Document ---
:1955 Author Organization [facility] t Address [address] [place] [address] Care Team Providers Name Role Phone Kael MEADOWS MD, A Primary Care Physician MARTA Attending Clinician Unavailable Kaci PARSONS, R. Attending Clinician Yadira MURPYH Attending Clinician Unavailable Payers Payer Name Policy Type Policy Number Effective Date Expiration Date S ource PPO/EPO - BCBS [id number] Problems Condition Condition Condition Status Onset Resolution [...] disease 00:00: Hospita involving involving 00 l [employer] shell tribe little shell tribe 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 pectoris SOB SOB Disease Active [facility] (shortness (shortness 2-02 st of breath) of breath) 00:00: Ho spita 00 l Aortic Aortic Disease Active [facility] valve valve 2-02 st disorder disorder 00:00: Hospit a 00 l Allergies, Adverse Reactions, Alerts Allergy Allergy Status Severity Reaction(s) Onset Inactive Treating Comm ents Source Name Type Date Date Clinician Latex Propensi Active Rash 2020-02 [facility] ty to 2-10 College adverse 00:00: of reaction 00 Medicin s to e substanc e Latex, Propensi Active Itching [facility] Natural ty to st Rubber adverse Hospita reaction l s to drug Family History Family Member Diagnosis Comments Start Date Stop Date Source Natural father [facility] Natural mother Heart disease [facility] Social History Social Habit Start Date Stop Date Quantity Comments Source Exposure to Not sure [facility] SARS-CoV-2 Medicine (event) History [facility] Drinks History [facility] Tobacco use and 2021-01-25 2021-01-25 Smokeless tobacco [employer] of exposure 00:00:00 00:00:00 non-user Medicine History SDOH 2018-03-19 2018-03-19 1 [facility] Alcohol Frequency 00:00:00 00:00:00 Hospita l Alcohol intake 2018-03-19 2018-03-19 Current [facility] 00:00:00 00:00:00 non-drinker of Hospital alcohol (finding) Sex Ass[birth year] F [facility] [employer] of 00:00:00 00:00:00 Medicine Smoking Status Start Date Stop Date Source Never smoked tobacco [facility] Former smoker 2018-03-19 00:00:00 2018-03-19 00:00:00 [facility] Medications Ordered Filled Start Stop Current Ordering Indication Dosage Frequency Signature Comments Components Source Medication Medication Date Date Medication? Clinician (SIG) Name Name MINERAL OIL 2020-02 Yes Take by Sixto adams OR 2-10 mouth. College 09:20: of 34 Medicin e Cholecalcif 2020-02 Yes Take by Sixto adams alex 2-[address] [facility] (VITAMIN D) 09:20: of 125 MCG 34 Medicin (5000 UT) e CAPS ferrous 2020-02 Yes 325mg Take 325 Baylo r sulfate 2-[address] [facility] (FEROSUL) 09:19: mouth of 325 (65 Fe) 41 daily. Medici n MG tablet e Mesalamine 2020-02 Yes Take by [facility] (PENTASA) 2-[address] [facility] 500 MG CPCR 09:19: of 41 Medicin e predniSONE 2020-02 Yes [facility] (DELTASONE) 1- [facility] 20 MG 00:00: of tablet 00 Medicin e ondansetron 2020-02 Yes TAKE 1 [facility] or (ZOFRAN) 4 1-15 TABLET BY [facility] ege MG tablet 00:00: MOUTH of 00 EVERY 6 Medicin HOURS e NEEDED FORNAUSEA AND VOMITING pantoprazol 2020-02 Yes 40mg Take 40 mg [facility] e 1-[address] [facility] (PROTONIX) 00:00: daily. of 40 MG 00 Medicin tablet e lisinopril 2020-02 Yes 1 po daily B ambrocio (PRINIVIL, [address] [facility] ZESTRIL) 5 00:00: morning of MG tablet 00 Medicin e sertraline 2020-02 Yes [facility] (ZOLOFT) 1 [facility] 100 MG 00:00: of tablet 00 Medicin e buPROPion 2020-02 Yes TAKE 2 [facility] (WELLBUTRIN 1-02 TABLETS BY [facility]uis ) 75 MG 00:00: MOUTH of tablet 00 EVERY Medicin MORNING e AND 1 TABLET BY MOUTH EVERY EVENING Adalimumab 2020-02 Yes [facility] (HUMIRA 0-25 [facility] PEN) 40 00:00: of MG/0.8ML 00 Medicin injection e levothyroxi Yes levothyrox [facility] ne 8-[facility] [address] [facility] [place] (SYNTHROID) 00:00: tablet of 25 MCG 00 TAKE 1 Medicin tablet TABLET BY e MOUTH DAILY IN THE MORNING WITH JUST A SIP OF WATER. WAIT 30 MINUTES BEFORE EATING OR DRINKING ANYTHING lisinopriL- Yes [id number] 1{tbl} QD TAKE 1 [facility] hydrochloro 7-[address] thiazide 00:00: MOUTH Hospita (PRINZIDE) 00 DAILY l 10-12.5 mg per tablet metoprolol Yes [id number] TAKE 1 Me thodi tartrate 7-29 TABLET(50 st (LOPRESSOR) 00:00: MG) BY Hosp [facility] 50 mg 00 MOUTH l tablet TWICE DAILY metoprolol 2020- No [id number] TAKE 1 M [facility] tartrate 4-26 07-29 TABLET(50 st (LOPRESSOR) 00:00: 00:00 MG) BY Hos alba 50 mg 00 :00 MOUTH l tablet TWICE DAILY lisinopriL- 2020- No [id number] 1{tbl} QD TAKE 1 [facility] hydrochloro -10 09-[address] thiazide 00:00: 00:00 MOUTH Hospita (PRINZIDE) 00 :00 DAILY l 10-12.5 mg per tablet lisinopriL- 2020- No [id number] 1{tbl} QD Take 1 [facility] hydrochloro -10 06- tablet by st thiazide 00:00: 00:00 mouth Hospita (PRINZIDE) 00 :00 daily. l 10-12.5 mg per tablet metoprolol 2020- No [id number] 50mg Q.5D Take 1 M [facility] tartrate 03-12- tablet (50 st (LOPRESSOR) 00:00: 00:00 mg total) Hospita 50 mg 00 :00 by mouth 2 l tablet (two) times a day. lisinopril- No [id number] 1{tbl} QD TAKE 1 [facility] hydrochloro 03-17- TABLET BY st thiazide 00:00: 00:00 MOUTH Hospita (PRINZIDE) 00 :00 DAILY l 10-12.5 mg per tablet metoprolol 2020- No [id number] TAKE 1 M [facility] tartrate 03-17-25 TABLET(50 st (LOPRESSOR) 00:00: 00:00 MG) BY Hos alba 50 mg 00 :00 MOUTH l tablet TWICE DAILY sertraline Yes sertraline [facility] (ZOLOFT) 50 1-02 50 mg College MG tablet 00:00: tablet of 00 Medicin e aspirin Yes 81mg QD Take 81 mg Meth denis (ECOTRIN) 8-[address] 81 MG 16:39: daily. Hospita enteric 47 l coated tablet fexofenadin Yes Take by Met hodi e HCl 8-[address] (JAYCOB 16:39: needed. Hospit a ODT ORAL) 47 l cetirizine Yes 10mg Q24H Take 10 mg M [facility]i (ZyrTEC) 10 8-[address] MG tablet 16:39: daily as Hosp mich 47 needed for l allergies. mvit,calc,m Yes Take by Met hodi in-folic 09-[address] [id number] 16:39: Hospita 200 mcg 47 l tablet coenzyme Yes [facility] Q10 (CO 09-23 st Q-10) 100 00:00: Hospita mg capsule 00 l cholecalcif Yes [facility] alex, 09-17 st vitamin D3, 00:00: Hospit a (VITAMIN 00 l D3) 5,000 unit tablet docusate Yes [facility] sodium 8 st (COLACE) 00:00: Hospita 100 MG 00 l capsule ferrous Yes [facility] sulfate [address] (65 FE) MG 00:00: Hospita tablet 00 l sertraline Yes [facility] (ZOLOFT) 7-15 st 100 MG 00:00: Hospita tablet 00 l Vital Signs Vital Name Observation Time Observation Value Comments Source Systolic blood 2021-01-25 15:06:00 122 mm[Hg] [facility] pressure Medicine Diastolic blood 2021-01-25 15:06:00 80 mm[Hg] [facility] pressure Medicine Heart rate 2021-01-25 15:06:00 81 /min [facility] Body temperature 2021-01-25 15:06:00 36.28 Nadiya [facility] Respiratory rate 2021-01-25 15:06:00 14 /min [facility] Body height 2021-01-25 15:06:00 154.9 cm [facility] Body weight 2021-01-25 15:06:00 106.142 kg [facility] BMI 2021-01-25 15:06:00 44.21 kg/m2 [facility] Procedures This patient has no known procedures. Plan of Care Planned Activity Planned Date Details Comments Source Future Scheduled 2021-01-25 Screening for malignant [facility] 09:15:59 neoplasm of colon Medicine (procedure) [code = 089661619] Future Scheduled 2021-01-25 Screening for malignant [facility] Test 09:15:59 neoplasm of breast Medicine (procedure) [code = 373024743] Future Scheduled 2021-01-25 TETANUS SHOT (ADULT) [facility] Test 09:15:59 [code = TETANUS SHOT Medicin e (ADULT)] Future Scheduled 2021-01-25 Hepatitis C screening [facility] 09:15:59 (procedure) [code = Medicine 165526461] Future Scheduled 2021-01-25 Human immunodeficiency B [facility] 09:15:59 virus screening Medicine (procedure) [code = 718146215] Future Scheduled 2021-01-25 Screening for malignant [facility] 09:15:59 neoplasm of cervix Medicine (procedure) [code = 433948570] Future Scheduled 2021-01-25 ZOSTER VACCINE (1 of 2) [facility] 09:15:59 [code = ZOSTER VACCINE (1 Me dicine of 2)] Future Scheduled 2021-01-25 FLU VACCINE > 6 MONTHS B [facility] Test 09:15:59 [code = FLU VACCINE > 6 Medi cine MONTHS] Future Scheduled 2021-01-25 COVID-19 Vaccine (2 - Ba [facility] Test 09:15:59 Pfizer 2-dose series) Medici ne [code = COVID-19 Vaccine (2 - Pfizer 2-dose series)] Future Scheduled COVID-19 VACCINE (1) [facility] Test [code = COVID-19 VACCINE Hos pital (1)] Future Scheduled Hepatitis C screening [facility] Test (procedure) [code = Hospital 327517168] Future Scheduled Screening for malignant [facility] neoplasm of cervix Hospital (procedure) [code = 248520372] Future Scheduled BREAST CANCER SCREENING [facility] [code = BREAST CANCER Hospit al SCREENING] Future Scheduled COLONOSCOPY SCREENING [facility] Test [code = COLONOSCOPY Hospital SCREENING] Future Scheduled SHINGLES VACCINES (#1) M [facility] Test [code = SHINGLES VACCINES Ho spital (#1)] Future Scheduled INFLUENZA VACCINE [code = [facility] INFLUENZA VACCINE] Hospital Encounters Start End Encounter Admission Attending Care Care Encounter Source Date/Time Date/Time Type Type Clinicians Facility Department ID 2021-01-25 2021-01-25 Office ADINA LOZANO [id number] [facility] 00:00:00 00:00:00 Visit [facility] [id number] College Y [id number] of [id number] Medi renea 325 e 2020-09-12 2020-09-12 Toby Clemons, 1.2.840.1 [id number] [facility] 00:00:00 00:00:00 [place] 3.430.2.7 Hospit a .3.160337 l .8 2020-06-11 2020-06-11 Toby Clemons [id number] [facility] 00:00:00 00:00:00 Ace R. [address]70.1.[address] 3.430.2.7 Hospit a .3.974930 l .8 2020-03-12 2020-03-12 Javier Kelly 1.2.840.1 [id number] [facility] 00:00:00 00:00:[address] 3.430.2.7 Hospit a .3.601814 l .8 Results This patient has no known results.
[2021-02-02 23:04] LABS: Absolute Lymphocytes (CBC) 3.2 K/uL (0.7-4.9); Hematocrit 41.9 % (36.0-45.0); Lymphocytes % 30.6 % (15.3-44.8); MPV 6.9 fL (7.6-11.3); RBC Red Blood Cell Count 4.64 M/uL (3.86-4.86)
[2021-02-02] MEDS ORDERED: NA CHLORIDE 0.9% 1,000 ML ONE (23:06)
[2021-02-02] MEDS ORDERED: ONDANSETRON 4 MG/2 ML VIAL ONE (23:06)
[2021-02-02] MEDS ORDERED: MORPHINE 4 MG/ML SYR ONE (23:06)
[2021-02-02] MEDS ORDERED: FAMOTIDINE 20 MG/2 ML VIAL IV ONE (23:06)
[2021-02-02 23:22] LABS: Urine Blood Negative (Negative); Urine Glucose Negative (Negative); Urine Protein Negative (Negative); Urine Specific Gravity 1.015 (1.005-1.030)
[2021-02-02 23:28] LABS: Albumin 2.9 g/dL (3.4-5.0); Bilirubin Direct 0.1 mg/dL (0-0.2); Bilirubin Total 0.4 mg/dL (0.2-1.0); Protein, Total 6.4 g/dL (6.4-8.2)
--- NOTE | 2021-02-03 01:36 | EDPHYS ---
Physician Documentation [facility] Name: Kindra Novoa Age: 65 yrs Sex: Female : 1955 Arrival Date: 02/02/2021 Time: 21:44 Bed 14 Private MD: Moriah Vasquez ED Physician Phillip Mccray HPI: 02/02 22:50 This 65 yrs old Female presents to ER via Wheelchair with complaints of mh7 Abdominal Pain. 22:50 The patient presents with abdominal pain in the upper abdomen. Onset: The mh7 symptoms/episode began/occurred yesterday. The symptoms do not radiate. Associated signs and symptoms: Pertinent positives: nausea, Pertinent negatives: anorexia, blood in stools, chest pain, constipation, diarrhea, dysuria, fever, headache, hematuria, palpitations, shortness of breath, vaginal discharge, vomiting, vomiting blood. The symptoms are described as intermittent, vague, waxing/waning. Modifying factors: The symptoms are alleviated by nothing, the symptoms are aggravated by nothing. Severity of pain: At its worst the pain was moderate last night, in the emergency department the pain is unchanged. The patient has experienced similar episodes in the past, multiple times. Historical: - Allergies: 22:30 buspirone; bb 22:30 Ciprofloxacin; bb 22:30 Flagyl; bb 22:30 Latex, Natural Rubber; bb - PMHx: 22:30 Colitis; Crohn's Disease; Depression; Hypertension; Hypothyroidism; Insulin Resistance; bb - Immunization history:: Adult Immunizations up to date, Client reports having NOT received the Covid vaccine. - Social history:: Smoking status: Patient denies any tobacco usage or history of. Patient uses alcohol, occasionally. Patient/guardian denies using street drugs. ROS: 22:50 Constitutional: Negative for fever, chills, and weight loss, Eyes: Negative for injury, mh7 pain, redness, and discharge, ENT: Negative for injury, pain, and discharge, Neck: Negative for injury, pain, and swelling, Cardiovascular: Negative for chest pain, palpitations, and edema, Respiratory: Negative for shortness of breath, cough, wheezing, and pleuritic chest pain, Back: Negative for injury and pain, : Negative for injury, bleeding, discharge, and swelling, MS/Extremity: Negative for injury and deformity, Skin: Negative for injury, rash, and discoloration, Neuro: Negative for headache, weakness, numbness, tingling, and seizure, Psych: Negative for depression, anxiety, suicide ideation, homicidal ideation, and hallucinations, Allergy/Immunology: Negative for hives, rash, and allergies, Endocrine: Negative for neck swelling, polydipsia, polyuria, polyphagia, and marked weight changes, Hematologic/Lymphatic: Negative for swollen nodes, abnormal bleeding, and unusual bruising. Exam: 22:50 Head/Face: Normocephalic, atraumatic. Eyes: Pupils equal round and reactive to light, mh7 extra-ocular motions intact. Lids and lashes normal. Conjunctiva and sclera are non-icteric and not injected. Cornea within normal limits. Periorbital areas with no swelling, redness, or edema. Neck: Trachea midline, no thyromegaly or masses palpated, and no cervical lymphadenopathy. Supple, full range of motion without nuchal rigidity, or vertebral point tenderness. No Meningismus. Chest/axilla: Normal chest wall appearance and motion. Nontender with no deformity. No lesions are appreciated. Cardiovascular: Regular rate and rhythm with a normal S1 and S2. No gallops, murmurs, or rubs. Normal PMI, no JVD. No pulse deficits. Respiratory: Lungs have equal breath sounds bilaterally, clear to auscultation and percussion. No rales, rhonchi or wheezes noted. No increased work of breathing, no retractions or nasal flaring. 22:50 Back: No spinal tenderness. No costovertebral tenderness. Full range of motion. Skin: Warm, dry with normal turgor. Normal color with no rashes, no lesions, and no evidence of cellulitis. MS/ Extremity: Pulses equal, no cyanosis. Neurovascular intact. Full, normal range of motion. Neuro: Awake and alert, GCS 15, oriented to person, place, time, and situation. Cranial nerves II-XII grossly intact. Motor strength 5/5 in all extremities. Sensory grossly intact. Cerebellar exam normal. Normal gait. Psych: Awake, alert, with orientation to person, place and time. Behavior, mood, and affect are within normal limits. 22:50 Constitutional: The patient appears in no acute distress, alert, awake, uncomfortable. 22:50 Abdomen/GI: Inspection: obese Bowel sounds: active, all quadrants, Palpation: moderate abdominal tenderness, in the epigastric area, right upper quadrant and left upper quadrant, mass, is not appreciated, rebound tenderness, is not appreciated, voluntary guarding, is not appreciated, involuntary guarding, is not appreciated, no appreciated organomegaly, Rectal exam: the exam is deferred, because of patient request, Indicators: McBurney's point is not tender, Rios's sign is negative, Rovsing's sign is negative, Obturator sign is negative, Psoas sign is negative, Liver: no appreciated palpable abnormalities, Hernia: not appreciated. Vital Signs: 22:28 BP 107 / 77; Pulse 94; Resp 20 S; Temp 97.6(O); Pulse Ox 96% on R/A; Weight 105.23 kg bb (R); Height 5 ft. 1 in. (154.94 cm) (R); Pain 10/10; 23:35 BP 124 / 64; Pulse 76; Resp 18; Pulse Ox 98% on R/A; mk 02/03 00:00 BP 121 / 74; Pulse 82; Resp 18; Pulse Ox 100% on R/A; mk 00:32 BP 94 / 78; Pulse 73; Resp 16; Pulse Ox 98% on R/A; mk 01:00 BP 110 / 61; Pulse 76; Resp 18; Pulse Ox 96% on R/A; mk 02:06 BP 111 / 57; Pulse 74; Resp 16; Pulse Ox 100% on R/A; mk 03:01 BP 137 / 74; Pulse 81; Resp 18; Pulse Ox 97% on R/A; mk 04:03 BP 114 / 80; Pulse 75; Resp 18; Pulse Ox 97% on R/A; mk 02/02 22:28 Body Mass Index 43.84 (105.23 kg, 154.94 cm) bb Bangs Coma Score: 02/02 23:35 Eye Response: spontaneous(4). Verbal Response: oriented(5). Motor Response: obeys mk commands(6). Total: 15. 23:35 Eye Response: spontaneous(4). Verbal Response: oriented(5). Motor Response: obeys mk commands(6). Total: 15. 19 00:32 Eye Response: spontaneous(4). Verbal Response: oriented(5). Motor Response: obeys mk commands(6). Total: 15. 01:00 Eye Response: spontaneous(4). Verbal Response: oriented(5). Motor Response: obeys mk commands(6). Total: 15. 02:06 Eye Response: spontaneous(4). Verbal Response: oriented(5). Motor Response: obeys mk commands(6). Total: 15. 03:01 Eye Response: spontaneous(4). Verbal Response: oriented(5). Motor Response: obeys mk commands(6). Total: 15. 04:03 Eye Response: spontaneous(4). Verbal Response: oriented(5). Motor Response: obeys mk commands(6). Total: 15. MDM: 01:31 Differential diagnosis: bowel obstruction, diverticulitis, gastritis, gastroesophageal mh7 reflux disease, non-specific abd pain, pancreatitis, Peptic Ulcer Disease, urinary tract infection. Data reviewed: vital signs, nurses notes, old medical records, lab test result(s), CBC, electrolytes, urinalysis, EKG, radiologic studies, CT scan. Data interpreted: Pulse oximetry: on room air is 96 %. Interpretation: normal. Counseling: I had a detailed discussion with the patient and/or guardian regarding: the historical points, exam findings, and any diagnostic results supporting the discharge/admit diagnosis, lab results, radiology results, the need to transfer to another facility, [facility] does not immediately have the required specialist. Response to treatment: the patient's symptoms have mildly improved after treatment. Physician consultation: Samuel Bella MD was contacted at 00:45, regarding patient's condition, after a discussion of the case, a recommendation for transfer for higher level of care is made, Discussed with Dr. Barry for general surgery. He recommends transfer due to patient will need colorectal specialist.. 01:36 Patient medically screened. [facility] 02/02 22:50 Order name: Basic Metabolic Panel; Complete Time: 23:29 [facility] 02/02 22:50 Order name: CBC with Diff; Complete Time: 23:29 [facility] 02/02 22:50 Order name: Hepatic Function; Complete Time: 23:29 [facility] 02/02 22:50 Order name: Lipase; Complete Time: 23:29 [facility] 02/02 23:21 Order name: Urine Dipstick-Ancillary; Complete Time: 23:29 [facility] 02/02 22:50 Order name: CT Abd/Pelvis - IV Contrast Only [facility] 02/03 01:13 Order name: SARS-COV-2 RT PCR; Complete Time: 02:05 [facility] 02/03 02:40 Order name: Urine Dipstick-Ancillary; Complete Time: 02:42 [facility] 02/02 22:50 Order name: IV Saline Lock; Complete Time: 23:17 [facility] 02/02 22:50 Order name: Labs collected and sent; Complete Time: 23:17 [facility] 02/02 22:50 Order name: Urine Dipstick-Ancillary (obtain specimen); Complete Time: 23:23 [facility] 02/02 22:50 Order name: EKG; Complete Time: 22:50 [facility] 02/02 22:50 Order name: EKG - Nurse/Tech; Complete Time: 23:17 [facility] Administered Medications: 02/02 23:29 Drug: NS 0.9% 1000 ml Route: IV; Rate: 1000 ml; Site: left antecubital; 23:29 Drug: morphine 2 mg Route: IVP; Site: left antecubital; 23:29 Drug: Zofran (Ondansetron) 4 mg Route: IVP; Site: left antecubital; 02/03 02:06 Follow up: Response: No adverse reaction 02/02 23:29 Drug: Pepcid (famotidine) 20 mg Route: IVP; Site: left antecubital; 02/03 02:06 Follow up: Response: No adverse reaction 02:06 Drug: morphine 2 mg Route: IVP; Site: left antecubital; 02:06 Drug: Zosyn (piperacillin-tazobactam) 3.375 grams Route: IVPB; Infused Over: 60 mins; Site: left antecubital; 04:00 Drug: morphine 2 mg Route: IVP; Site: left antecubital; 04:00 Drug: Zofran (Ondansetron) 2 mg Route: IVP; Site: left antecubital; Disposition Summary: 02/03/21 01:36 Transfer Ordered Transfer Location: [place] [id number] Reason: Higher level of care [facility] Condition: Stable [facility] Problem: an acute exacerbation [facility] Symptoms: have improved mh7 Accepting Physician: Dr. 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 EDMS EDMS 02:48 01:36 Colorectal [place] [id number] 04:11 02:48 Dr. Dunham [facility]
--- NOTE | 2021-02-03 01:36 | ER ---
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 Coronavirus screen: At this time, the client does not indicate any symptoms associated with coronavirus-19. Ebola Screen: No symptoms or risks identified at this time. Initial Sepsis Screen: Does the patient meet any 2 criteria? No. Patient's initial sepsis screen is negative. Does the patient have a suspected source of infection? No. Patient's initial sepsis screen is negative. Risk Assessment: Do you want to hurt yourself or someone else? Patient reports no desire to harm self or others. Onset of symptoms was February 01, 2021. 22:28 Method Of Arrival: Wheelchair bb 22:28 Acuity: KAROL 3 bb Triage Assessment: 23:35 General: Appears distressed, uncomfortable, Behavior is cooperative. Pain: Complains of mk pain in abdomen Pain currently is 10 out of 10 on a pain scale. Quality of pain is described as crampy, Pain began 2-3 days ago. Is continuous, intermittent, Current management is with. Neuro: Level of Consciousness is awake, alert, obeys commands, Oriented to person, place, time, situation, Auto Headlight Mechanic are equal bilaterally Gait is steady, Speech is normal. Cardiovascular:. Cardiovascular: Heart tones S1 S2 Capillary refill < 3 seconds fingers toes Pulses are 2+ in right radial artery, right dorsalis pedis artery, left radial artery and left dorsalis pedis artery Rhythm is regular. Respiratory: Airway is patent Breath sounds are clear bilaterally. GI: Abdomen is flat, round Bowel sounds Abdomen is tender to palpation in right upper quadrant and left upper quadrant. GI: Reports upper abdominal pain, cramping, Patient currently denies constipation, diarrhea. : Derm: Skin Skin is dry, Skin is pink, warm \T\ dry. Skin temperature is warm. Musculoskeletal: Range of motion: intact in all extremities. Historical: - Allergies: 22:30 buspirone; bb 22:30 Ciprofloxacin; bb 22:30 Flagyl; bb 22:30 Latex, Natural Rubber; bb - PMHx: 22:30 Colitis; Crohn's Disease; Depression; Hypertension; Hypothyroidism; Insulin Resistance; bb - Immunization history:: Adult Immunizations up to date, Client reports having NOT received the Covid vaccine. - Social history:: Smoking status: Patient denies any tobacco usage or history of. Patient uses alcohol, occasionally. Patient/guardian denies using street drugs. Screenin/19 01:20 Abuse screen: Denies threats or abuse. Nutritional screening: No deficits noted. mk 01:24 Fall Risk No fall in past 12 months (0 pts). No secondary diagnosis (0 pts). IV access mk (20 points). Ambulatory Aid- None/Bed Rest/Nurse Assist (0 pts). Gait- Normal/Bed Rest/Wheelchair (0 pts) Mental Status- Oriented to own ability (0 pts). 01:25 Tuberculosis screening: No symptoms or risk factors identified. mk Assessment: 02/02 23:35 General: Appears uncomfortable, Behavior is cooperative, appropriate for age. Pain: mk Complains of pain in abdomen Pain currently is 10 out of 10 on a pain scale. Pain began gradually, 2-3 days ago. Is lasting more than 1 hour. Alleviated by rest. Neuro: Level of Consciousness is awake, alert, obeys commands, Oriented to person, place, time, situation, Auto Headlight Mechanic are equal bilaterally Moves all extremities. Full function Gait is steady, Speech is normal, Facial symmetry appears normal. Cardiovascular: Heart tones S1 S2 present Capillary refill < 3 seconds fingers toes Patient's skin is warm and dry. Pulses are 2+ in right radial artery, right dorsalis pedis artery, left radial artery and left dorsalis pedis artery Rhythm is regular. Respiratory: Airway is patent Respiratory effort is even, unlabored, Respiratory pattern is regular, symmetrical, Breath sounds are clear. GI: Abdomen is round Abd is soft Abdomen is tender to palpation in right upper quadrant and left upper quadrant Reports anorexia, bloating, epigastric pain, Pain is 10 out of 10 on a pain scale. : No signs and/or symptoms were reported regarding the genitourinary system. Derm: Skin is intact, Skin is dry, Skin is pink, warm \T\ dry. Skin temperature is warm. Musculoskeletal: Range of motion: intact in all extremities. 02/03 01:05 Reassessment: Patient and/or family updated on plan of care and expected duration. Pain mk level reassessed. Patient is alert, oriented x 3, equal unlabored respirations, skin warm/dry/pink. Patient states feeling better. Pain: Complains of pain in abdomen Pain currently is 7 out of 10 on a pain scale. 02:05 Reassessment: Patient appears in no apparent distress at this time. Patient and/or mk family updated on plan of care and expected duration. Pain level reassessed. Patient is alert, oriented x 3, equal unlabored respirations, skin warm/dry/pink. Patient states feeling better. 02:05 Pain: Pain currently is 9 out of 10 on a pain scale. mk 03:09 Reassessment: Patient appears in no apparent distress at this time. Patient and/or mk family updated on plan of care and expected duration. Pain level reassessed. Patient is alert, oriented x 3, equal unlabored respirations, skin warm/dry/pink. 04:04 General: Appears uncomfortable, Behavior is cooperative, appropriate for age. Pain: mk Complains of pain in abdomen Pain currently is 10 out of 10 on a pain scale. Is lasting a few minutes. Alleviated by medications. 04:16 Reassessment: this RN called report to Soha ALVARADO at [facility] for transfer and mk report given to EMS. Pain:. Vital Signs: 02/02 22:28 BP 107 / 77; Pulse 94; Resp 20 S; Temp 97.6(O); Pulse Ox 96% on R/A; Weight 105.23 kg bb (R); Height 5 ft. 1 in. (154.94 cm) (R); Pain 10/10; 23:35 BP 124 / 64; Pulse 76; Resp 18; Pulse Ox 98% on R/A; mk 02/03 00:00 BP 121 / 74; Pulse 82; Resp 18; Pulse Ox 100% on R/A; mk 00:32 BP 94 / 78; Pulse 73; Resp 16; Pulse Ox 98% on R/A; mk 01:00 BP 110 / 61; Pulse 76; Resp 18; Pulse Ox 96% on R/A; mk 02:06 BP 111 / 57; Pulse 74; Resp 16; Pulse Ox 100% on R/A; mk 03:01 BP 137 / 74; Pulse 81; Resp 18; Pulse Ox 97% on R/A; mk 04:03 BP 114 / 80; Pulse 75; Resp 18; Pulse Ox 97% on R/A; mk 02/02 22:28 Body Mass Index 43.84 (105.23 kg, 154.94 cm) bb Eliseo Coma Score: 02/02 23:35 Eye Response: spontaneous(4). Verbal Response: oriented(5). Motor Response: obeys mk commands(6). Total: 15. 23:35 Eye Response: spontaneous(4). Verbal Response: oriented(5). Motor Response: obeys mk commands(6). Total: 15. 02/03 00:32 Eye Response: spontaneous(4). Verbal Response: oriented(5). Motor Response: obeys mk commands(6). Total: 15. 01:00 Eye Response: spontaneous(4). Verbal Response: oriented(5). Motor Response: obeys mk commands(6). Total: 15. 02:06 Eye Response: spontaneous(4). Verbal Response: oriented(5). Motor Response: obeys mk commands(6). Total: 15. 03:01 Eye Response: spontaneous(4). Verbal Response: oriented(5). Motor Response: obeys mk commands(6). Total: 15. 04:03 Eye Response: spontaneous(4). Verbal Response: oriented(5). Motor Response: obeys mk commands(6). Total: 15. ED Course: 02/02 21:44 Patient arrived in ED. mr 21:44 Moriah Vasquez is Private Physician. mr 22:30 Triage completed. bb 22:30 Arm band placed on Patient placed in an exam room, on a stretcher, on pulse oximetry. bb Family accompanied patient. 22:37 Phillip Mccray MD is Attending Physician. mh7 23:01 Alessandro Mathew, CHRISTIANO is Primary Nurse. as6 23:03 Basic Metabolic Panel Sent. mk 23:03 CBC with Diff Sent. mk 23:03 Hepatic Function Sent. mk 23:03 Lipase Sent. mk 23:05 Inserted saline lock: 18 gauge in left antecubital area, using aseptic technique. mk 23:54 CT Abd/Pelvis - IV Contrast Only In Process Unspecified. EDHI 02/03 00:13 Primary Nurse role handed off by Alessandro Mathew, CHRISTIANO cs9 00:31 Bernice Carrera, CHRISTIANO is Primary Nurse. mk 01:20 No provider procedures requiring assistance completed. mk 01:25 Patient has correct armband on for positive identification. Allergy band placed. Fall mk risk band placed. Side rails up X 1. 01:44 SARS-COV-2 RT PCR Sent. mk 03:41 NGT: inserted 12 Fr. via left nare. mk 04:11 Patient transferred, IV remains in place. mk Administered Medications: 02/02 23:29 Drug: NS 0.9% 1000 ml Route: IV; Rate: 1000 ml; Site: left antecubital; 23:29 Drug: morphine 2 mg Route: IVP; Site: left antecubital; 23:29 Drug: Zofran (Ondansetron) 4 mg Route: IVP; Site: left antecubital; 02/03 02:06 Follow up: Response: No adverse reaction 02/02 23:29 Drug: Pepcid (famotidine) 20 mg Route: IVP; Site: left antecubital; 02/03 02:06 Follow up: Response: No adverse reaction mk 02:06 Drug: morphine 2 mg Route: IVP; Site: left antecubital; 02:06 Drug: Zosyn (piperacillin-tazobactam) 3.375 grams Route: IVPB; Infused Over: 60 mins; Site: left antecubital; 04:00 Drug: morphine 2 mg Route: IVP; Site: left antecubital; 04:00 Drug: Zofran (Ondansetron) 2 mg Route: IVP; Site: left antecubital; Outcome: 01:36 ER care complete, transfer ordered by . Raisa 04:10 Transferred by ground EMS to [facility], Transfer form completed. 04:10 Condition: improved 04:10 Condition: improved 04:10 Instructed on the need for transfer. 04:11 Patient left the ED. mk Signatures: Dispatcher [facility] Ninfa Salazar Brenda, CHRISTIANO Phillip Charles MD MD [id number] Teresa Atkinson 9 Alessandro Mathew RN RN as6 Bernice Carrera RN RN iris Corrections: (The following items were deleted from the chart) 01:20 18 23:35 BP 135 / 87; Pulse 63bpm; Resp 18bpm; Pulse Ox 98% RA; mk mk
[2021-02-03] MEDS ORDERED: NA CHLORIDE 0.9% 100 ML ONE (01:50)
[2021-02-03] MEDS ORDERED: MORPHINE 2 MG/ML SYR ONE ×2 (01:50→03:57)
[2021-02-03] MEDS ORDERED: PIPERACIL/TAZO 3.375 GM VIAL IV ONE (01:51)
[2021-02-03 02:40] LABS: Urine Blood Negative (Negative); Urine Glucose Negative (Negative); Urine Protein Negative (Negative); Urine pH 5.5 (5.0-7.0)
[2021-02-03] MEDS ORDERED: LIDOCAINE VISCOUS 2% SOLN 15 ML UDC ONE (03:12)
[2021-02-03] MEDS ORDERED: ONDANSETRON 4 MG/2 ML VIAL ONE (03:38)
[2021-02-03 04:33] VITALS: TEMP 97.6
[2021-02-03 04:53] VITALS: O2SAT 97
[2021-02-03 04:54] VITALS: BP 114/80
--- NOTE | 2021-02-03 15:53 | RAD REPORT ---
EXAM DESCRIPTION: CT - Abdomen Pelvis W Contrast - 02/03/2021 6:00 am CLINICAL HISTORY: 65 years Female ABD PAIN COMPARISON: None TECHNIQUE: Images were obtained in axial, sagittal, and coronal planes. Intravenous contrast was adm inistered. This exam was performed according to our departmental dose-optimization program which includes use of Automated Exposure Control, adjustment of the mA and/or kV according to patient size and/or use of iterative reconstruction technique. Arterial and venous phase axial imaging was performed. FINDINGS: No abnormality involving the liver, spleen, pancreas, or adrenal glands bilaterally. The e longated gallbladder with mild gallbladder wall thickening. No obstructing renal or ureteral calculi bilaterally. No hydronephrosis bilaterally. Unremarkable star dder. Right renal cyst. Appendix not well identified. Abnormal mucosal thickening terminal ileum and distal ileum with deform ity and spiculation involving small bowel loops right lower abdomen. Mild mesenteric adenopathy. No p erforation or abscess. Dilated air and fluid-filled small bowel loops proximal to distal ileum consis tent with small bowel obstruction. Appearance is similar to prior study. Focal narrowing and small delicia wel strictures identified. Fistulous communication of the terminal ileum and right colon suspected. Dependent atelectatic change right lower lobe. No acute osseous abnormality. No abnormality of abdominal aorta or portal vein. IMPRESSION: 1. Abnormal mucosal thickening terminal ileum and distal ileum with deformity and spic ulation involving bowel loops right lower abdomen. Focal narrowing with small bowel strictures identi fied. The findings could be consistent with Crohn's disease however other etiologies such as carcinoi d or lymphoma could have a similar appearance. Fistulous communication of the terminal ileum and righ t colon suspected. 2. Small bowel obstruction proximal to the distal ileum. 3. Elongated gallbladder with mild gallbladder wall thickening. Electronically signed by: Cristal Arita MD 02/03/2021 12:17 AM SOFTWARE ARCHITECT Due to temporary technical issues with the PACS/Fluency reporting system, reports are being signed by the in house radiologists without review as a courtesy to insure prompt reporting. The interpreting radiologist is fully responsible for the content of the report.
--- NOTE | 2021-02-04 08:11 | EKG ---
Test Date: 2021-02-02 Test Time: 23:13:31 Graining Operator: MEASUREMENT RESULTS: Intervals: Rate: 87 AL: 132 QRSD: 66 QT: 358 QTc: 430 [place]: P: 32 AL: 132 QRS: 12 T: 30 INTERPRETIVE STATEMENTS: Normal sinus rhythm Normal ECG Compared to ECG 12/09/2020 18:32:20 No significant changes Electronically Signed On 02-04-21 08:10:46 HOME APPRAISER by Curt Hanley
== END 2021-02-03 04:11 | disposition short-term general hospital (02) ==
LOC: ER 21:39
DX: K56.609 Unspecified intestinal obstruction, unspecified as to partial versus complete obstruction (principal); K50.90 Crohn's disease, unspecified, without complications; I10 Essential (primary) hypertension; Z88.1 Allergy status to other antibiotic agents; Z88.8 Allergy status to other drugs, medicaments and biological substances; Z91.040 Latex allergy status; Z91.048 Other nonmedicinal substance allergy status
CPT/HCPCS: 93005; 85025; 80048; 36415; 80076; 81003 ×2; 83690; 74177; 96375; 96374; 99285; U0003; Q9967; J2543; J2270 ×2; J7030; J2405 ×2

== ENCOUNTER 2021-03-06 23:13 | Observation (INO) | payer BC ==
--- OUTSIDE RECORDS SUMMARY | 2021-03-06 23:17 | XMS REPORT | Continuity of Care Document ---
:1955 Author Organization [facility] t Address [address] [place] [address] Care Team Providers Name Role Phone Kael MEADOWS MD, A Primary Care Physician MARTA Attending Clinician Unavailable LUIS FELIPE Attending Clinician Unavailable Ca VANN Attending Clinician Unavailable Kaci PARSONS, R. Attending Clinician Yadira MURPHY Attending Clinician Unavailable Ca VANN Admitting Clinician Unavailable Payers Payer Name Policy Type Policy Number Effective Date Expiration Date S ource PPO/EPO - BCBS [id number] BCBS PPO POS EPO [id number] 2010 00:00:00 CHOICE Problems Condition Condition Condition Status Onset Resolution Last Treating Co mments Source Name Details Category Date Date Treatment Clinician Date Essential Essential Disease Active 2018- Met hodi hypertensi hypertensi 8-13 st on on 00:00: Hospita 00 l Chest pain Chest pain Disease Active 2018- M ethodi 2-02 st 00:00: Hospita 00 l Coronary Coronary Disease Active 2018- Metho di artery artery 2-02 st disease disease 00:00: Hospita involving involving 00 l [place] 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 pectoris SOB SOB Disease Active [facility] (shortness (shortness 2-02 st of breath) of breath) 00:00: Ho spita 00 l Aortic Aortic Disease Active [facility] valve valve 2-02 st disorder disorder 00:00: Hospit a 00 l Allergies, Adverse Reactions, Alerts Allergy Allergy Status Severity Reaction(s) Onset Inactive Treating Comm ents Source Name Type Date Date Clinician LATEX Allergy Active Low Itching 2020-[address] [facility] Latex Propensi Active Rash 2020-02 [facility] ty to 2-10 College adverse 00:00: of reaction 00 Medicin s to e substanc e NO KNOWN Allergy Active [facility] S Latex, Propensi Active Itching [facility] Natural ty to st Rubber adverse Hospita reaction l s to drug Family History Family Member Diagnosis Comments Start Date Stop Date Source Natural father [facility] Natural mother Heart disease [facility] Social History Social Habit Start Date Stop Date Quantity Comments Source Exposure to Not sure [facility] of SARS-CoV-2 Medicine (event) History [facility] Drinks History [facility] Tobacco use and 2021-01-25 2021-01-25 Smokeless tobacco [facility]o [facility] [employer] of exposure 00:00:00 00:00:00 non-user Medicine History SDOH 2018-03-19 2018-03-19 1 [facility] Frequency 00:00:00 00:00:00 Hospita l Alcohol intake 2018-03-19 2018-03-19 Current [facility] 00:00:00 00:00:00 non-drinker of Hospital alcohol (finding) Sex Ass[birth year] F [facility] [employer] of 00:00:00 00:00:00 Medicine Smoking Status Start Date Stop Date Source Never smoked tobacco [facility] Eric ege of Medicine Former smoker 2018-03-19 00:00:00 2018-03-19 [facility] Ordered Filled Start Stop Current Ordering Indication Dosage Frequency Signature Comments Components Source Medication Medication Date Date Medication? Clinician (SIG) Name Name MINERAL OIL 2020-02 Yes Take by Sixto adams OR 2-10 mouth. College 09:20: of 34 Medicin e Cholecalcif 2020-02 Yes Take by [facility] alex 2-10 mouth. [facility] (VITAMIN D) 09:20: of 125 MCG 34 Medicin (5000 UT) e CAPS ferrous 2020-02 Yes 325mg Take 325 Baylo r sulfate 2-10 mg by [facility] (FEROSUL) 09:19: mouth of 325 (65 Fe) 41 daily. Medici n MG tablet e Mesalamine 2020-02 Yes Take by [facility] (PENTASA) 2-10 mouth. [facility] 500 MG CPCR 09:19: of 41 Medicin e predniSONE 2020-02 Yes [facility] (DELTASONE) 1 [facility] 20 MG 00:00: of tablet 00 Medicin e ondansetron 2020-02 Yes TAKE 1 [facility] or (ZOFRAN) 4 1-15 TABLET BY [facility] ege MG tablet 00:00: MOUTH of 00 EVERY 6 Medicin HOURS e NEEDED FORNAUSEA AND VOMITING pantoprazol 2020-02 Yes 40mg Take 40 mg [facility] e 1-12 by mouth [facility] (PROTONIX) 00:00: daily. of 40 MG 00 Medicin tablet e lisinopril 2020-02 Yes 1 po daily [facility] (PRINIVIL, 02-23 in the [facility] ZESTRIL) 5 00:00: morning of MG tablet 00 Medicin e sertraline 2020-02 Yes [facility] (ZOLOFT) 02-17 [facility] 100 MG 00:00: of tablet 00 Medicin e buPROPion 2020-02 Yes TAKE 2 [facility] (WELLBUTRIN 1-02 TABLETS BY Co jose luis ) 75 MG 00:00: MOUTH of tablet 00 EVERY Medicin MORNING e AND 1 TABLET BY MOUTH EVERY EVENING Adalimumab 2020-02 Yes [facility] (HUMIRA 0-25 [facility] PEN) 40 00:00: of MG/0.8ML 00 Medicin injection e levothyroxi Yes levothyrox [facility] ne 8 ine 25 mcg [facility] (SYNTHROID) 00:00: tablet of 25 MCG 00 TAKE 1 Medicin tablet TABLET BY e MOUTH DAILY IN THE MORNING WITH JUST A SIP OF WATER. WAIT 30 MINUTES BEFORE EATING OR DRINKING ANYTHING lisinopriL- Yes [id number] 1{tbl} QD TAKE 1 [facility] hydrochloro 7-29 TABLET BY thiazide 00:00: MOUTH Hospita (PRINZIDE) 00 DAILY l 10-12.5 mg per tablet metoprolol Yes [id number] TAKE 1 Me thodi tartrate 7-29 TABLET(50 st (LOPRESSOR) 00:00: MG) BY Hosp mich 50 mg 00 MOUTH l tablet TWICE DAILY metoprolol 2020- No [id number] TAKE 1 M ethodi tartrate 06-11- TABLET(50 st (LOPRESSOR) 00:00: 00:00 MG) BY Hos alba 50 mg 00 :00 MOUTH l tablet TWICE DAILY lisinopriL- 2020- No [id number] 1{tbl} QD TAKE 1 [facility] hydrochloro -10 09- TABLET BY st thiazide 00:00: 00:00 MOUTH Hospita (PRINZIDE) 00 :00 DAILY l 10-12.5 mg per tablet lisinopriL- 2020- No [id number] 1{tbl} QD Take 1 [facility] hydrochloro 03-12- tablet by st thiazide 00:00: 00:00 mouth Hospita (PRINZIDE) 00 :00 daily. l 10-12.5 mg per tablet metoprolol 2020- No [id number] 50mg Q.5D Take 1 M ethodi tartrate 1- tablet (50 st (LOPRESSOR) 00:00: 00:00 mg total) Hospita 50 mg 00 :00 by mouth 2 l tablet (two) times a day. lisinopril- 2020- No [id number] 1{tbl} QD TAKE 1 [facility] hydrochloro -17 03- TABLET BY st thiazide 00:00: 00:00 MOUTH Hospita (PRINZIDE) 00 :00 DAILY l 10-12.5 mg per tablet metoprolol 2020- No [id number] TAKE 1 M ethodi tartrate 1- TABLET(50 st (LOPRESSOR) 00:00: 00:00 MG) BY [...] Take 10 mg M ethodi (ZyrTEC) [address] MG tablet 16:39: daily as Hosp mich 47 needed for l allergies. mvit,calc,m Yes Take by Met brianne in-folic [address] [id number] 16:39: Hospita 200 mcg 47 l tablet coenzyme Yes [facility] Q10 (CO 09-23 st Q-10) 100 00:00: Hospita mg capsule 00 l cholecalcif Yes Method i alex, 8 st vitamin D3, 00:00: Hospit a (VITAMIN 00 l D3) 5,000 unit tablet docusate Yes [facility] sodium 8-01 st (COLACE) 00:00: Hospita 100 MG 00 l capsule ferrous Yes [facility] sulfate 325 7-17 st (65 FE) MG 00:00: Hospita tablet 00 l sertraline Yes [facility] (ZOLOFT) 7-15 st 100 MG 00:00: Hospita tablet 00 l Vital Signs Vital Name Observation Time Observation Value Comments Source HEIGHT 2021-02-03 05:20:00 154.9 cm WEIGHT 2021-02-03 05:20:00 106.505 kg HEIGHT 2021-02-03 05:20:00 154.9 cm WEIGHT 2021-02-03 05:20:00 106.505 kg Systolic blood 2021-01-25 15:06:00 122 mm[Hg] [facility] pressure Medicine Diastolic blood 2021-01-25 15:06:00 80 mm[Hg] [facility] pressure Medicine Heart rate 2021-01-25 15:06:00 81 /min [facility] Body temperature 2021-01-25 15:06:00 36.28 Nadiya [facility] Respiratory rate 2021-01-25 15:06:00 14 /min [facility] Body height 2021-01-25 15:06:00 154.9 cm [facility] Body weight 2021-01-25 15:06:00 106.142 kg [facility] BMI 2021-01-25 15:06:00 44.21 kg/m2 [facility] Procedures This patient has no known procedures. Plan of Care Planned Activity Planned Date Details Comments Source Future Scheduled 2021-01-25 Screening for malignant [facility] Test 09:15:59 neoplasm of colon Medicine (procedure) [code = 138013538] Future Scheduled 2021-01-25 Screening for malignant [facility] Test 09:15:59 neoplasm of breast Medicine (procedure) [code = 410154974] Future Scheduled 2021-01-25 TETANUS SHOT (ADULT) [facility] 09:15:59 [code = TETANUS SHOT Medicin e (ADULT)] Future Scheduled 2021-01-25 Hepatitis C screening [facility] 09:15:59 (procedure) [code = Medicine 751044817] Future Scheduled 2021-01-25 Human immunodeficiency B [facility] 09:15:59 virus screening Medicine (procedure) [code = 397420492] Future Scheduled 2021-01-25 Screening for malignant [facility] 09:15:59 neoplasm of cervix Medicine (procedure) [code = 005658721] Future Scheduled 2021-01-25 ZOSTER VACCINE (1 of 2) [facility] 09:15:59 [code = ZOSTER VACCINE (1 Me dicine of 2)] Future Scheduled 2021-01-25 FLU VACCINE > 6 MONTHS B [facility] Test 09:15:59 [code = FLU VACCINE > 6 Medi cine MONTHS] Future Scheduled 2021-01-25 COVID-19 Vaccine (2 - [facility] Test 09:15:59 Pfizer 2-dose series) Medici ne [code = COVID-19 Vaccine (2 - Pfizer 2-dose series)] Future Scheduled COVID-19 VACCINE (1) Met [facility]odist Test [code = COVID-19 VACCINE Hos pital (1)] Future Scheduled Hepatitis C screening [facility] Test (procedure) [code = Hospital 412532228] Future Scheduled Screening for malignant [facility] neoplasm of cervix Hospital (procedure) [code = 396413894] Future Scheduled BREAST CANCER SCREENING [facility] [code = BREAST CANCER Hospit al SCREENING] Future Scheduled COLONOSCOPY SCREENING Me [facility] Test [code = COLONOSCOPY Hospital SCREENING] Future Scheduled SHINGLES VACCINES (#1) M ethodist Test [code = SHINGLES VACCINES Ho spital (#1)] Future Scheduled INFLUENZA VACCINE [code = [facility] INFLUENZA VACCINE] Hospital Encounters Start End Encounter Admission Attending Care Care Encounter Source Date/Time Date/Time Type Type Clinicians Facility Department ID 2021-03-01 2021-03-01 Outpatient ADINA LOZANO [facility] [id number] [facility] 08:19:59 11:07:59 [facility] [employer] [facility] 2021-02-03 2021-02-06 Inpatient ER [facility] [id number] [facility] 05:14:00 16:07:00 FANG-JAMAL 2021-01-25 2021-01-25 Office ADINA LOZANO [id number] [facility] 00:00:00 19:54:04 Visit [facility] [id number] College Y 0.2.7.2.686 of [id number] Medi renea 325 e 2020-09-12 2020-09-12 Refill Kaci 1.2.840.1 [id number] [facility] 00:00:00 00:00:00 Ace Taylor [address] 3.430.2.7 Hospit a .3.605091 l .8 2020-06-11 2020-06-11 Refill Kaci 1.2.840.1 [id number] [facility] 00:00:00 00:00:00 Ace Taylor [address]1.[address] 3.430.2.7 Hospit a .3.577505 l .8 2020-03-12 2020-03-12 Javier Kelly 1.2.840.1 [id number] [facility] 00:00:00 00:00:[address] 3.430.2.7 Hospit a .3.985508 l .8 Results Test Description Test Time Test Comments Results Result Comments Source HEPATITIS B PANEL 2021-02-06 20:49:20 Test Item Value Reference Range Interpretation Comme nts HEPATITIS B CORE TOTAL ANTIBODY (BEAKER) (test code = Nonreactive Nonreactive 497) HEPATITIS B SURFACE ANTIBODY (BEAKER) (test code = 647) < mIU/mL <8.0 HEPATITIS B SURFACE ANTIGEN (2) (BEAKER) (test code = Nonreactive Nonreactive 2585) Demand Generator Manager ID - BSOperator ID - BSVITAMIN D, [id number] 18:58:29 Test Item Value Reference Range Interpretation Comments VITAMIN D 25-OH (BEAKER) (test 48.0 ng/mL 6.6-49.9 code = 2764) Effective 11/26/2016: Reference Range ChangeNew: 6.6-49.9 ng/mL Previous: 13.0-47.8 ng/mLRecommended Vitamin D Target Range: 30.0-40.0 ng/mLOperator ID - BSC. DIFFICILE GDH [id number] 13:19:34 Test Item Value Reference Range Interpretation Comments CDT TOXIN (test code Negative Negative = [id number]) CDT GDH ANTIGEN (test Negative Negative No ind ication of code = 9607207665) Clostridi um difficile infection and n o colonization. Discontinue ent randy isolation and t herapy. Testing performed by [employer] Rapid Cassette Assay. For GDH, published sensitivity of the assay is 98.7% compared to cytotoxicity testing. For Toxin AB, published sensitivity is 87.8% and specificity 99.4% compared to cytotoxicity testing.Verification of kit performance was done by the [facility] Microbiology Lab prior to clinical use.BASIC METABOLIC [id number] 05:52:32 Test Item Value Reference Range Interpretation Comments SODIUM (BEAKER) 142 meq/L 136-145 (test code = 381) POTASSIUM (BEAKER) 3.8 meq/L 3.5-5.1 (test code = 379) CHLORIDE (BEAKER) 104 meq/L 98-107 (test code = 382) CO2 (BEAKER) (test 31 meq/L 22-29 H code = 355) BLOOD UREA NITROGEN 7 mg/dL 7-21 (BEAKER) (test code = 354) CREATININE (BEAKER) 0.73 mg/dL 0.57-1.25 (test code = 358) GLUCOSE RANDOM 107 mg/dL 70-105 H (BEAKER) (test code = 652) CALCIUM (BEAKER) 9.5 mg/dL 8.4-10.2 (test code = 697) EGFR (BEAKER) (test 80 mL/min/1.73 ESTIMA CHAPARRO GFR IS code = 1092) sq m NOT ACCURATE CREATININE CLEARANCE IN PREDICTING GLOMERULAR FILTRATION RATE . ESTIMATED GFR I S NOT APPLICABLE FOR DIALYSIS PATIEN TS. Demand Generator Manager ID - PIAYA LCBC (HEMOGRAM ONLY)2021-02-06 05:38:48 Test Item Value Reference Range Interpretation Comments WHITE BLOOD CELL COUNT (BEAKER) 5.9 K/ L 3.5-10.5 (test code = 775) RED BLOOD CELL COUNT (BEAKER) 4.01 M/ L 3.93-5.22 (test code = 761) HEMOGLOBIN (BEAKER) (test code = 11.9 GM/DL 11.2-15.7 410) HEMATOCRIT (BEAKER) (test code = 37.8 % 34.1-44.9 411) MEAN CORPUSCULAR VOLUME (BEAKER) 94.3 fL 79.4-94.8 (test code = 753) MEAN CORPUSCULAR HEMOGLOBIN 29.7 pg 25.6-32.2 (BEAKER) (test code = 751) MEAN CORPUSCULAR HEMOGLOBIN CONC 31.5 GM/DL 32.2-35.5 L (BEAKER) (test code = 752) RED CELL DISTRIBUTION WIDTH 14.3 % 11.7-14.4 (BEAKER) (test code = 412) PLATELET COUNT (BEAKER) (test 276 K/CU MM 150-450 code = 756) MEAN PLATELET VOLUME (BEAKER) 9.1 fL 9.4-12.3 L (test code = 754) NUCLEATED RED BLOOD CELLS 0 /100 WBC 0-0 (BEAKER) (test code = 413) BASIC METABOLIC [id number] 05:38:29 Test Item Value Reference Range Interpretation Comments SODIUM (BEAKER) 143 meq/L 136-145 (test code = 381) POTASSIUM (BEAKER) 3.9 meq/L 3.5-5.1 (test code = 379) CHLORIDE (BEAKER) 102 meq/L 98-107 (test code = 382) CO2 (BEAKER) (test 33 meq/L 22-29 H code = 355) BLOOD UREA NITROGEN 6 mg/dL 7-21 L (BEAKER) (test code = 354) CREATININE (BEAKER) 0.76 mg/dL 0.57-1.25 (test code = 358) GLUCOSE RANDOM 75 mg/dL 70-105 (BEAKER) (test code = 652) CALCIUM (BEAKER) 9.5 mg/dL 8.4-10.2 (test code = 697) EGFR (BEAKER) (test 77 mL/min/1.73 ESTIMA CHAPARRO GFR IS code = 1092) sq m NOT ACCURATE CREATININE CLEARANCE IN PREDICTING GLOMERULAR FILTRATION RATE . ESTIMATED GFR I S NOT APPLICABLE FOR DIALYSIS PATIEN TS. Demand Generator Manager ID - DEANNA MC-REACTIVE [id number] 05:38:29 Test Item Value Reference Range Interpretation Comments C-REACTIVE PROTEIN (BEAKER) (test 3.86 mg/dL 0.00-0.50 H code = 676) Demand Generator Manager ID - DEANNA MCBC (HEMOGRAM ONLY)2021-02-05 05:28:27 Test Item Value Reference Range Interpretation Comments WHITE BLOOD CELL COUNT (BEAKER) 6.1 K/ L 3.5-10.5 (test code = 775) RED BLOOD CELL COUNT (BEAKER) 4.17 M/ L 3.93-5.22 (test code = 761) HEMOGLOBIN (BEAKER) (test code = 12.5 GM/DL 11.2-15.7 410) HEMATOCRIT (BEAKER) (test code = 39.9 % 34.1-44.9 411) MEAN CORPUSCULAR VOLUME (BEAKER) 95.7 fL 79.4-94.8 H (test code = 753) MEAN CORPUSCULAR HEMOGLOBIN 30.0 pg 25.6-32.2 (BEAKER) (test code = 751) MEAN CORPUSCULAR HEMOGLOBIN CONC 31.3 GM/DL 32.2-35.5 L (BEAKER) (test code = 752) RED CELL DISTRIBUTION WIDTH 14.5 % 11.7-14.4 H (BEAKER) (test code = 412) PLATELET COUNT (BEAKER) (test 265 K/CU MM 150-450 code = 756) MEAN PLATELET VOLUME (BEAKER) 9.1 fL 9.4-12.3 L (test code = 754) NUCLEATED RED BLOOD CELLS 0 /100 WBC 0-0 (BEAKER) (test code = 413) CT, [id number] 16:56:00Unlisted Reason for Exam - Click Yes and Enter Reason Below->NoIs this for enterography?->NoWill this procedure require oral contrast?->No [facility] 1955 Sex: FFINAL REPORT TECHNIQUE: CT of the abdomen and pelvis WITH intravenous contrast and WITHOUT oral contrast. Dose modulation, iterative reconstruction, and/or weight-based adjustment of the mA/kV was utilized to reduce the radiation dose to as low as reasonably achievable. INDICATION: Abdominal infection suspected. COMPARISON: None. FINDINGS: LOWER THORAX: Mild bibasilar ate lectasis. Calcification of the aortic valve. HEPATOBILIARY: No focal hepatic lesions. There is mild,nonspecific thickening of the gallbladder wall. No biliary ductal dilatation.SPLEEN: No splenomegaly. The spleen measures 11.9 cm in length.PANCREAS: No focal masses or ductal dilatation. ADRENALS: A right adrenal nodule measures 1.5 cm and less than 10 Hounsfield units, consistent with an adenoma. KIDNEYS/URETERS: No hydronephrosis or stones. A right upper pole simple renal cyst measures 2.2 cm. A left interpolar fat density renal mass measures 2 cm. PELVIC ORGANS/BLADDER: Unremarkable. PERITONEUM/RETROPERITONEUM: No free air or fluid. Small, fat filled umbilical hernia. LYMPH NODES: No lymphadenopathy.VESSELS: Unremarkable. GI TRACT: Moderate diverticulosis of the sigmoid colon. A NG tube has its tip in the first portion the duodenum. There is thickening with engorged vasculature along the terminal ileum which measures at least 10 cm in length. There is also abnormal thickening and fat stranding adjacent to a portion of distal jejunum which measures at least 18 cm in length. A complex fistulain the right lower quadrant connects the right colon (at a few sites) with the abnormally thickened terminal ileum, abnormally thickened jejunum, and an additional portion of ileum. This is best seen on coronal image 41. BONES AND SOFT TISSUES: Moderate degenerative facet changes of the lower lumbar spine. 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 2.There is mild, nonspecific thickening of the gallbladder wall. 3.A right adrenal adenoma measures 1.5 cm. No routine follow-up imaging is recommended. 4.A left interpolar fat density renal mass is most consistent with an angiomyolipoma. Signed: Reed Hunter MDReport Verified Date/Time: 02/04/2021 16:56:27 Reading Location: [facility] Diagnostic Imaging Reading Room - [place] [address] VITAMIN B12 AND [id number] 07:14:11 Test Item Value Reference Range Interpretation Comments VITAMIN B12 187 pg/mL 213-816 L (BEAKER) (test code = 774) FOLATE (BEAKER) 18.90 ng/mL See_Comment [Automated message] (test code = 362) The system which generated this result transmitted ref erence range: >=7.00. The reference range was not used to interpr et this result as normal/abnormal . Demand Generator Manager ID - LIDA [id number] 07:14:10 Test Item Value Reference Range Interpretation Comments FERRITIN (BEAKER) (test code = 110.79 ng/mL 5.00-275.00 361) Demand Generator Manager ID - LIDA FIRON, TIBC, % SAT. (WITHOUT FERRITIN)2021-02-04 06:55:40 Test Item Value Reference Range Interpretation Comments IRON (BEAKER) (test code = 547) 75.0 ug/dL 40.0-160.0 TOTAL IRON BINDING CAPACITY 258 ug/dL 250-450 (BEAKER) (test code = 769) IRON % SATURATION (2) (BEAKER) 29 % 20-55 (test code = 2590) Demand Generator Manager ID - LIDA FHEPATIC FUNCTION [id number] 16:57:11 Test Item Value Reference Range Interpretation Comments TOTAL PROTEIN (BEAKER) 6.2 gm/dL 6.0-8.3 Speci men slightly (test code = 770) hemolyzed ALBUMIN (BEAKER) (test 3.5 g/dL 3.5-5.0 Speci men slightly code = 1145) hemolyzed BILIRUBIN TOTAL 0.7 mg/dL 0.2-1.2 Specimen sli ghtly (BEAKER) (test code = hemoly zed 377) BILIRUBIN DIRECT 0.2 mg/dL 0.1-0.5 Specimen sl ightly (BEAKER) (test code = hemoly zed 706) ALKALINE PHOSPHATASE 149 U/L 40-150 (BEAKER) (test code = 346) AST (SGOT) (BEAKER) 73 U/L 5-34 H Specimen slightly (test code = 353) hemolyzed ALT (SGPT) (BEAKER) 51 U/L 6-55 Specimen slightly (test code = 347) hemolyzed Demand Generator Manager ID Kimberlee PERAZA LHEMOGLOBIN [id number] 12:28:44 Test Item Value Reference Range Interpretation Comments HEMOGLOBIN A1C (BEAKER) (test code = 5.3 % 4.3-6.1 368) [id number] 09:47:42 Test Item Value Reference Range Interpretation Comments PHOSPHORUS (BEAKER) 3.5 mg/dL 2.3-4.7 Specimen slightly (test code = 604) hemolyzed Demand Generator Manager ID Kimberlee PERAZA LBASIC METABOLIC [id number] 09:47:42 Test Item Value Reference Range Interpretation Comments SODIUM (BEAKER) 138 meq/L 136-145 (test code = 381) POTASSIUM (BEAKER) 4.1 meq/L 3.5-5.1 Specimen slightly (test code = 379) hemolyzed CHLORIDE (BEAKER) 101 meq/L 98-107 (test code = 382) CO2 (BEAKER) (test 28 meq/L 22-29 code = 355) BLOOD UREA NITROGEN 14 mg/dL 7-21 (BEAKER) (test code = 354) CREATININE (BEAKER) 0.84 mg/dL 0.57-1.25 Specimen slightly (test code = 358) hemolyzed GLUCOSE RANDOM 95 mg/dL 70-105 (BEAKER) (test code = 652) CALCIUM (BEAKER) 9.1 mg/dL 8.4-10.2 (test code = 697) EGFR (BEAKER) (test 68 mL/min/1.73 ESTIMA CHAPARRO GFR IS code = 1092) sq m NOT ACCURATE CREATININE CLEARANCE IN PREDICTING GLOMERULAR FILTRATION RATE . ESTIMATED GFR I S NOT APPLICABLE FOR DIALYSIS PATIEN TS. Demand Generator Manager ID - KARMEN [id number] 09:47:41 Test Item Value Reference Range Interpretation Comments MAGNESIUM (BEAKER) 2.2 mg/dL 1.6-2.6 Specimen slightly (test code = 627) hemolyzed Demand Generator Manager ID - KARMEN LC-REACTIVE [id number] 09:45:23 Test Item Value Reference Range Interpretation Comments C-REACTIVE PROTEIN (BEAKER) (test 3.67 mg/dL 0.00-0.50 H code = 676) Demand Generator Manager ID - KARMEN LCBC W/PLT COUNT & AUTO [id number] 09:23:38 Test Item Value Reference Range Interpretation Comments WHITE BLOOD CELL COUNT (BEAKER) 12.2 K/ L 3.5-10.5 H (test code = 775) RED BLOOD CELL COUNT (BEAKER) 4.45 M/ L 3.93-5.22 (test code = 761) HEMOGLOBIN (BEAKER) (test code = 13.4 GM/DL 11.2-15.7 410) HEMATOCRIT (BEAKER) (test code = 40.8 % 34.1-44.9 411) MEAN CORPUSCULAR VOLUME (BEAKER) 91.7 fL 79.4-94.8 (test code = 753) MEAN CORPUSCULAR HEMOGLOBIN 30.1 pg 25.6-32.2 (BEAKER) (test code = 751) MEAN CORPUSCULAR HEMOGLOBIN CONC 32.8 GM/DL 32.2-35.5 (BEAKER) (test code = 752) RED CELL DISTRIBUTION WIDTH 14.6 % 11.7-14.4 H (BEAKER) (test code = 412) PLATELET COUNT (BEAKER) (test 346 K/CU MM 150-450 code = 756) MEAN PLATELET VOLUME (BEAKER) 8.8 fL 9.4-12.3 L (test code = 754) NUCLEATED RED BLOOD CELLS 0 /100 WBC 0-0 (BEAKER) (test code = 413) NEUTROPHILS RELATIVE PERCENT 76 % (BEAKER) (test code = 429) LYMPHOCYTES RELATIVE PERCENT 17 % (BEAKER) (test code = 430) MONOCYTES RELATIVE PERCENT 6 % (BEAKER) (test code = 431) EOSINOPHILS RELATIVE PERCENT 1 % (BEAKER) (test code = 432) BASOPHILS RELATIVE PERCENT 0 % (BEAKER) (test code = 437) NEUTROPHILS ABSOLUTE COUNT 9.24 K/ L 1.56-6.13 H (BEAKER) (test code = 670) LYMPHOCYTES ABSOLUTE COUNT 2.02 K/ L 1.18-3.74 (BEAKER) (test code = 414) MONOCYTES ABSOLUTE COUNT (BEAKER) 0.76 K/ L 0.24-0.36 H (test code = 415) EOSINOPHILS ABSOLUTE COUNT 0.07 K/ L 0.04-0.36 (BEAKER) (test code = 416) BASOPHILS ABSOLUTE COUNT (BEAKER) 0.03 K/ L 0.01-0.08 (test code = 417) IMMATURE GRANULOCYTES-RELATIVE 1 % 0-1 PERCENT (BEAKER) (test code = 2801) RAD, ABDOMEN/KUB, 1 VIEW [id number] 07:28:00Reason for exam:->NGT tube placementShould this be performed at the bedside?->Yes [facility] 1955 Sex: FFINAL REPORT RAD, ABDOMEN/KUB, 1 VIEW AP INDICATION: NGT tube placementCOMPARISON: None TECHNIQUE: Limited portable radiograph of the lower chest and upper abdomen was acquired for purposes of evaluating tube placement FINDINGS/IMPRESSION:NG side-port overlies the stomach Signed: Rory Grossman Verified Date/Time: 02/03/2021 07:28:00
[2021-03-06] MEDS ORDERED: METHYLPREDNISOLONE 125 MG INJ ONE (23:44)
[2021-03-06] MEDS ORDERED: NA CHLORIDE 0.9% 1,000 ML ONE (23:45)
[2021-03-06] MEDS ORDERED: ONDANSETRON 4 MG/2 ML VIAL ONE (23:45)
[2021-03-06] MEDS ORDERED: MORPHINE 4 MG/ML SYR ONE (23:45)
[2021-03-07 00:22] LABS: Absolute Lymphocytes (CBC) 1.5 K/uL (0.7-4.9); Hematocrit 42.4 % (36.0-45.0); Lymphocytes % 13.2 % (15.3-44.8); MPV 7.2 fL (7.6-11.3); RBC Red Blood Cell Count 4.63 M/uL (3.86-4.86)
[2021-03-07 00:33] LABS: ALT/SGPT 30 U/L (12-78); AST/SGOT 15 U/L (15-37); Alkaline Phosphatase 96 U/L (45-117); BUN Blood Urea Nitrogen 24 mg/dL (7-18); Bicarbonate 27 mmol/L (21-32); Bilirubin Direct < 0.1 mg/dL (0-0.2); Bilirubin Total 0.3 mg/dL (0.2-1.0); Glucose Level 162 mg/dL (74-106); Lipase 93 U/L (73-393); Potassium 4.2 mmol/L (3.5-5.1); Protein, Total 6.4 g/dL (6.4-8.2); Sodium Level 140 mmol/L (136-145)
--- NOTE | 2021-03-07 02:59 | ER ---
Nurse's Notes [facility] Name: Kindra Novoa Age: 65 yrs Sex: Female : 1955 Arrival Date: 03/06/2021 Time: 23:15 Bed 4 Private MD: Diagnosis: Crohn's disease of small intestine with intestinal obstruction-Partial Presentation: 03/06 23:34 Chief complaint: Patient states: has a hx of Crohn's dx, abd pain started this morning, sm5 no diarrhea but had bowel movement today. Coronavirus screen: Vaccine status: Patient reports being unvaccinated. Ebola Screen: No symptoms or risks identified at this time. Initial Sepsis Screen: Does the patient meet any 2 criteria? No. Patient's initial sepsis screen is negative. Does the patient have a suspected source of infection? No. Patient's initial sepsis screen is negative. Risk Assessment: Do you want to hurt yourself or someone else? Patient reports no desire to harm self or others. Onset of symptoms was March 06, 2021. 23:34 Method Of Arrival: Wheelchair [facility] 23:34 Acuity: KAROL 3 sm5 Triage Assessment: 23:36 General: Appears distressed, Behavior is crying. Pain: Complains of pain in abdomen 5 Pain currently is 10 out of 10 on a pain scale. Neuro: No deficits noted. Level of Consciousness is awake, alert, Oriented to person, place, time, situation. Cardiovascular: No deficits noted. Capillary refill < 3 seconds Patient's skin is warm and dry. Respiratory: No deficits noted. Airway is patent Trachea midline Respiratory effort is even, unlabored. GI: Abdomen is obese, Reports lower abdominal pain, upper abdominal pain, Patient currently denies diarrhea. Historical: - Allergies: 23:36 buspirone; sm5 23:36 Ciprofloxacin; sm5 23:36 Flagyl; sm5 23:36 Latex, Natural Rubber; sm5 - PMHx: 23:36 Colitis; Crohn's Disease; Depression; Hypertension; Hypothyroidism; Insulin Resistance; sm5 - PSHx: 23:36 None; sm5 - Immunization history:: Client reports having NOT received the Covid vaccine. - Social history:: Smoking status: unknown. - Family history:: not pertinent. - Hospitalizations: : No recent hospitalization is reported. Screenin/20 00:08 Abuse screen: Denies threats or abuse. Denies injuries from another. Nutritional as6 screening: No deficits noted. Tuberculosis screening: No symptoms or risk factors identified. Fall Risk None identified. Assessment: 00:01 General: Appears uncomfortable, Behavior is cooperative, crying, restless. Pain: as6 Complains of pain in abdomen Noted to be crying, grimacing, restless. Neuro: Level of Consciousness is awake, alert, obeys commands, Oriented to person, place, time. Cardiovascular: Capillary refill < 3 seconds Patient's skin is warm and dry. Respiratory: Airway is patent Trachea midline Respiratory effort is even, unlabored, Respiratory pattern is regular, symmetrical. GI: Reports lower abdominal pain, upper abdominal pain, cramping, nausea, normal bowel habits. Derm: Skin is intact. 01:13 Reassessment: Patient and/or family updated on plan of care and expected duration. Pain as6 level reassessed. Patient is alert, oriented x 3, equal unlabored respirations, skin warm/dry/pink. Vital Signs: 03/06 23:34 BP 158 / 85; Pulse 68; Resp 21; Temp 98.1(O); Pulse Ox 98% on R/A; Weight 107.05 kg; 5 Height 5 ft. (152.40 cm); Pain 10/10; 03/07 01:12 BP 110 / 58; Pulse 55; Resp 18 S; Pulse Ox 93% on R/A; as6 04:00 BP 100 / 61; Pulse 51; Resp 18 S; Pulse Ox 94% on R/A; as6 03/06 23:34 Body Mass Index 46.09 (107.05 kg, 152.40 cm) [facility] ED Course: 03/06 23:15 Patient arrived in ED. kc5 23:29 Cindy Villa, RN is Primary Nurse. st1 23:31 Patrick Costa MD is Attending Physician. rn 23:35 Triage completed. 5 23:59 Liver (Hepatic) Function Sent. as6 23:59 Basic Metabolic Panel Sent. as6 23:59 COVID-19 SARS RT PCR (Document "Date of Onset" if Symptomatic) Sent. as6 23:59 Basic Metabolic Panel Sent. as6 23:59 Hepatic Function Sent. as6 03/07 00:00 CBC with Diff Sent. as6 00:00 Lipase Sent. as6 00:00 Inserted saline lock: 20 gauge in left antecubital area, using aseptic technique. Blood as6 collected. 00:08 Arm band placed on. as6 00:08 Bed in low position. Call light in reach. Side rails up X2. Adult w/ patient. Pulse ox as6 on. NIBP on. Warm blanket given. 02:01 CT Abd/Pelvis - PO and IV Contrast In Process Unspecified. EDMS 02:58 Juan Ramon Wahl DO is Hospitalizing Provider. rn 09:03 No provider procedures requiring assistance completed. Patient admitted, IV remains in vg1 place. Administered Medications: 03/06 23:58 Drug: NS 0.9% 1000 ml Route: IV; Rate: 1000 ml; Site: left antecubital; as6 03/07 03:17 Follow up: Response: No adverse reaction; IV Status: Completed infusion; IV Intake: as6 1000ml 03/06 23:59 Drug: morphine 4 mg Route: IVP; Site: left antecubital; as6 03/07 03:16 Follow up: Response: No adverse reaction; RASS: Alert and Calm (0) as6 03/06 23:59 Drug: Zofran (Ondansetron) 4 mg Route: IVP; Site: left antecubital; as6 03/07 03:17 Follow up: Response: No adverse reaction as6 03/06 23:59 Drug: SOLU-Medrol (methylPrednisoLONE) 125 mg Route: IVP; Site: left antecubital; as6 03/07 03:17 Follow up: Response: No adverse reaction as6 03:12 Drug: Zosyn (piperacillin-tazobactam) 3.375 grams Route: IVPB; Infused Over: 60 mins; as6 Site: left antecubital; Intake: 03:17 IV: 1000ml; Total: 1000ml. as6 Outcome: 02:58 Decision to Hospitalize by Provider. rn 09:02 Admitted to Tele accompanied by tech, via wheelchair, with chart, Report called to 1 Zahra ALVARADO 09:02 Condition: good vg1 09:02 Instructed on the need for admit. 09:09 Patient left the ED. vg1 Signatures: Dispatcher [employer] EDDC Patrick Costa MD MD rn Garcia, Victoria, RN RN vg1 Alessandro Mathew RN RN as6 Madelyn Pelayo kc5 Nargis Maldonado, RN RN sm5 Cindy Villa, RN RN st1 Corrections: (The following items were deleted from the chart) 09:03 09:02 Admitted to Tele accompanied by tech, via wheelchair, with oxygen, vg1 vg1
--- NOTE | 2021-03-07 02:59 | EDPHYS ---
Physician Documentation [facility] Name: Kindra Novoa Age: 65 yrs Sex: Female : 1955 Arrival Date: 03/06/2021 Time: 23:15 Bed 4 Private MD: ED Physician Patrick Costa HPI: 03/06 23:41 This 65 yrs old Female presents to ER via Wheelchair with complaints of rn Abdominal Pain, Crohn's flare up. 23:41 The patient presents with abdominal pain that is diffuse. Onset: The symptoms/episode rn began/occurred today. The symptoms do not radiate. Associated signs and symptoms: Pertinent positives: nausea, Pertinent negatives: blood in stools, chest pain, constipation, diarrhea, dysuria, fever. The symptoms are described as intermittent, sharp. Modifying factors: The symptoms are alleviated by nothing, the symptoms are aggravated by pressure, touching the area. Severity of pain: At its worst the pain was moderate in the emergency department the pain is unchanged. The patient has experienced similar episodes in the past. The patient has not recently seen a physician. Patient reports abdominal pain, diffuse, intermittent, began earlier today. Reports nausea but has been having normal bowel movements. Is passing gas. Does not feel as bad as when had bowel obstruction last visit. At that time was transferred to [place] for possible fistula but surgery was not performed, got better with fluids and symptomatic treatment. Patient reports pain continued to worsen so came in for evaluation today. No fever. No blood in stool.. Historical: - Allergies: 23:36 buspirone; sm5 23:36 Ciprofloxacin; sm5 23:36 Flagyl; sm5 23:36 Latex, Natural Rubber; sm5 - PMHx: 23:36 Colitis; Crohn's Disease; Depression; Hypertension; Hypothyroidism; Insulin Resistance; sm5 - PSHx: 23:36 None; sm5 - Immunization history:: Client reports having NOT received the Covid vaccine. - Social history:: Smoking status: unknown. - Family history:: not pertinent. - Hospitalizations: : No recent hospitalization is reported. ROS: 23:41 Constitutional: Negative for fever, chills, and weight loss, Eyes: Negative for injury, rn pain, redness, and discharge, Neck: Negative for injury, pain, and swelling, Cardiovascular: Negative for chest pain, palpitations, and edema, Respiratory: Negative for shortness of breath, cough, wheezing, and pleuritic chest pain, Abdomen/GI: Positive for abdominal pain and nausea Back: Negative for injury and pain, : Negative for injury, bleeding, discharge, and swelling, MS/Extremity: Negative for injury and deformity, Skin: Negative for injury, rash, and discoloration, Neuro: Negative for headache, weakness, numbness, tingling, and seizure. Exam: 23:41 Constitutional: This is a well developed, well nourished patient who is awake, alert, rn appears uncomfortable, holding abdomen while being pushed to room in wheelchair Head/Face: Normocephalic, atraumatic. Eyes: Periorbital areas with no swelling, redness, or edema. Cardiovascular: Regular rate and rhythm. No pulse deficits. Respiratory: Mild tachypnea, speaking full sentences, tearful Abdomen/GI: Soft, tender periumbilical and epigastric region, no peritoneal signs Skin: Warm, dry MS/ Extremity: Pulses equal, no cyanosis. Neuro: Awake and alert, GCS 15 Vital Signs: 23:34 BP 158 / 85; Pulse 68; Resp 21; Temp 98.1(O); Pulse Ox 98% on R/A; Weight 107.05 kg; 5 Height 5 ft. (152.40 cm); Pain 10/10; 03/07 01:12 BP 110 / 58; Pulse 55; Resp 18 S; Pulse Ox 93% on R/A; as6 04:00 BP 100 / 61; Pulse 51; Resp 18 S; Pulse Ox 94% on R/A; as6 03/06 23:34 Body Mass Index 46.09 (107.05 kg, 152.40 cm) [facility] MDM: 03/06 23:31 Patient medically screened. rn 03/07 00:58 ED course: Marked improvement in pain, patient resting comfortably and is thankful. rn Able to tolerate entire bottle of contrast. Pending CT and labs.. 02:56 Differential diagnosis: appendicitis, bowel obstruction, diverticulitis, gastritis, rn non-specific abd pain, Peptic Ulcer Disease, Colitis, enteritis, Crohn's flare. Data reviewed: vital signs, nurses notes, lab test result(s), radiologic studies, CT scan, and as a result, I will admit patient. Counseling: I had a detailed discussion with the patient and/or guardian regarding: the historical points, exam findings, and any diagnostic results supporting the discharge/admit diagnosis, lab results, radiology results, the need for further work-up and treatment in the hospital. Response to treatment: the patient's symptoms have markedly improved after treatment, and as a result, I will admit patient. Admission orders: after a detailed discussion of the patient's condition and case, the admit orders are written by me. ED course: CT shows similar findings to previous with possible partial small bowel obstruction and irregular appearing ileum. Patient with a history of Crohn's disease and this is likely inflammation causing narrowing of the lumen and not a true mechanical bowel obstruction. Patient was treated medically last visit as well and showed more severe findings of bowel obstruction. Patient without any emesis here and pain nearly resolved after 1 dose of pain medication. Will admit to hospitalist service and consult GI. Patient states has seen Dr. Adair in past. 03/06 23:33 Order name: Basic Metabolic Panel rn 03/06 23:33 Order name: CBC with Diff; Complete Time: 01: rn 03/06 23:33 Order name: Hepatic Function rn 03/06 23:33 Order name: Lipase; Complete Time: 01: rn 03/06 23:33 Order name: COVID-19 SARS RT PCR (Document "Date of Onset" if Symptomatic); Complete rn Time: 03:04 03/06 23:33 Order name: Basic Metabolic Panel; Complete Time: 01: EDLA 03/06 23:33 Order name: IV Saline Lock; Complete Time: 23:59 rn 03/06 23:33 Order name: CT Abd/Pelvis - PO and IV Contrast rn 03/06 23:34 Order name: Liver (Hepatic) Function; Complete Time: 01:13 EDLA 03/06 23:33 Order name: Labs collected and sent; Complete Time: 23:59 rn Administered Medications: 03/06 23:58 Drug: NS 0.9% 1000 ml Route: IV; Rate: 1000 ml; Site: left antecubital; 03/07 03:17 Follow up: Response: No adverse reaction; IV Status: Completed infusion; IV Intake: as6 1000ml 03/06 23:59 Drug: morphine 4 mg Route: IVP; Site: left antecubital; 03/07 03:16 Follow up: Response: No adverse reaction; RASS: Alert and Calm (0) as6 03/06 23:59 Drug: Zofran (Ondansetron) 4 mg Route: IVP; Site: left antecubital; as6 03/07 03:17 Follow up: Response: No adverse reaction as6 03/06 23:59 Drug: SOLU-Medrol (methylPrednisoLONE) 125 mg Route: IVP; Site: left antecubital; as6 03/07 03:17 Follow up: Response: No adverse reaction as6 03:12 Drug: Zosyn (piperacillin-tazobactam) 3.375 grams Route: IVPB; Infused Over: 60 mins; as6 Site: left antecubital; Disposition Summary: 03/07/21 02:58 Hospitalization Ordered Hospitalization Status: Inpatient Admission rn Provider: Juan Ramon Wahl rn Condition: Stable rn Problem: an acute exacerbation rn Symptoms: have improved rn Bed/Room Type: Standard rn Location: Telemetry/MedSurg (Inpatient)(03/07/21 06:03) eb1 Room Assignment: 219(03/07/21 06:03) eb1 Diagnosis - Crohn's disease of small intestine with intestinal obstruction - Partial rn Forms: - Medication Reconciliation Form rn - SBAR form rn Signatures: Dispatcher [employer] EDMS Patrick Costa MD MD rn Attema, Lee, FLIGHT COMMUNICATIONS SPECIALIST-C FLIGHT COMMUNICATIONS SPECIALIST-Cla1 Marlen Morillo, RN RN eb1 Alessandro Mathew, RN RN as6 Nargis Maldonado, RN RN sm5 Corrections: (The following items were deleted from the chart) 03:01 02:58 Telemetry/MedSurg (Inpatient) rn eb1 03:01 02:58 rn eb1 06:03 03:01 [facility] ER HOLD eb1 eb1 06:03 03:01 ERHOLD- eb1 eb1
[2021-03-07] MEDS ORDERED: NA CHLORIDE 0.9% 100 ML ONE (03:02)
[2021-03-07] MEDS ORDERED: PIPERACIL/TAZO 3.375 GM VIAL IV ONE (03:02)
--- NOTE | 2021-03-07 03:10 | P.HP ---
Certification for Inpatient Patient admitted to: Inpatient With expected LOS: >2 Midnights Patient will require the following post-hospital care: None Practitioner: I am a practitioner with admitting privileges, knowledge of patient current condition, hospital course, and medical plan of care. Services: Services provided to patient in accordance with Admission requirements found in Title 42 Section 412.3 of the Code of Federal Regulations Patient History Date of Service: 03/07/21 Reason for admission: Crohn's flare History of Present Illness: 65-year-old female with history of Crohn's, bowel obstructions, hypertension, hypothyroidism, depression presents emergency department for abdominal pain. Patient reports epigastric pain increasing over the course of last 24 hours, reports last bowel movement was yesterday evening and normal for her, still passing gas, no vomiting but does report some nausea. Patient reports this pain feels typical of a Crohn's flare to her, white blood cell count 11.6 creatinine 1.48 GFR 36 glucose 162 baseline creatinine around 0.9. COVID-negative CT abdomen pelvis with IV contrast and p.o. contrast demonstrates persistent distention of proximal and mid small bowel loops possibly secondary to partial small bowel obstruction, continued irregular appearance of the terminal ileum. Her identification and records commander is on-call currently will admit for further evaluation and management of Crohn's flare with possible partial small bowel obstruction. Allergies ciprofloxacin Allergy (Verified 07/12/20 22:34) Itching/Hives/Rash latex [Latex] Allergy (Verified 05/12/11 07:41) Itching/Hives/Rash Latex, Natural Rubber Allergy (Verified 06/07/20 05:52) Unknown metronidazole Allergy (Verified 07/12/20 22:34) Itching/Hives/Rash buspirone Adverse Reaction (Verified 07/12/20 22:35) Nausea/Vomiting Home Medications: Bupropion HCl [Wellbutrin] 75 mg PO BEDTIME 07/27/20 Cholecalciferol (Vitamin D3) [Vitamin D3] 1,000 unit PO DAILY 07/27/20 Levothyroxine Sodium 25 mcg PO DAILY 07/27/20 Sertraline [Zoloft*] 150 mg PO DAILY 07/27/20 Adalimumab [Humira 40 MG/0.8 ML*] 40 mg SQ Q14D 10/28/20 Mesalamine [Pentasa*] 500 mg PO BID 09/12/21 Ondansetron [Zofran (Odt)*] 4 mg PO Q6H PRN 12/10/20 buPROPion HCL [Bupropion HCl] 150 mg PO DAILY 12/10/20 Lactobacillus Acidophilus [Acidophilus Lactobacilli] 1 each PO TID #90 capsule 12/13/20 lisinopriL [Prinivil*] 5 mg PO DAILY #30 tab 12/13/20 predniSONE [Prednisone*] 20 mg PO DAILY 28 Days #35 tab 01/11/21 - Past Medical/Surgical History Diabetic: No -: HTN -: Prediabetes -: Hypothyroidism -: Depression -: Recurrent SBO -: GERD -: Bowel obstruction -: Psychosocial/ Personal History: Patient is . - Family History Father -: Cancer Mother -: Heart disease - Social History Smoking Status: Never smoker Alcohol use: No CD- Drugs: No Caffeine use: No Place of Residence: Home Review of Systems 10-point ROS is otherwise unremarkable Gastrointestinal: Nausea, Abdominal Pain Physical Examination - Physical Exam General: Alert, In no apparent distress, Oriented x3 HEENT: Atraumatic, PERRLA, Mucous membr. moist/pink, EOMI, Sclerae nonicteric Neck: Supple, 2+ carotid pulse no bruit, No LAD, Without JVD or thyroid abnormality Respiratory: Clear to auscultation bilaterally, Normal air movement Cardiovascular: Regular rate/rhythm, Normal S1 S2 Gastrointestinal: Normal bowel sounds, Tenderness (Mild epigastric abdominal tenderness) Musculoskeletal: No tenderness Integumentary: No rashes Neurological: Normal gait, Normal speech, Normal strength at 5/5 x4 extr, Normal tone, Normal affect Lymphatics: No axilla or inguinal lymphadenopathy - Studies Laboratory Data (last 24 hrs) 03/06/21 23:56: WBC 11.60 H, Hgb 13.5, Hct 42.4, Plt Count 342 03/06/21 23:56: Sodium 140, Potassium 4.2, BUN 24 H, Creatinine 1.48 H, Glucose 162 H, Total Bilirubin 0.3, AST 15, ALT 30, Alkaline Phosphatase 96, Lipase 93 Assessment and Plan - Plan Assessment: Abdominal pain, nausea secondary to suspected Crohn's flare with possible partial small bowel obstruction Acute kidney injury Hypertension Hypothyroidism Depression with anxiety Plan: Abdominal pain, nausea secondary to suspected Crohn's flare with possible partial small bowel obstruction: N.p.o., IV fluids, IV antibiotics, IV steroids. We will consult GI, patient reports last bowel movement this last evening and normal for her still passing gas without vomiting doubt significant bowel obstruction this time. We will consult general surgery as necessary. Acute kidney injury: Continue IV fluids, recheck renal function daily, consult nephrology for worsening. Hypertension: Obtain and continue home medications when appropriate, n.p.o. at this time. Hypothyroidism:Obtain and continue home medications when appropriate, n.p.o. at this time. Depression with anxiety:Obtain and continue home medications when appropriate, n.p.o. at this time. DVT PPX: SCD Code status: Full Discharge Plan: Home Plan to discharge in: 72 Hours - Advance Directives Does patient have a Living Will: No Does patient have a Durable POA for Healthcare: No - Code Status/Comfort Care Code Status Assessed: Yes (Full code) Critical Care: No Time Spent Managing Pts Care (In Minutes): 55
[2021-03-07] MEDS ORDERED: ONDANSETRON 4 MG/2 ML VIAL IV PRN (03:30)
--- NOTE | 2021-03-07 06:15 | P.PN ---
Subjective Date of Service: 03/07/21 Chief Complaint: Crohn's flare Subjective: Improving (Patient reports some improvement. Passage of gas. Less pain noted.) Physical Examination - Studies Laboratory Data (last 24 hrs) 03/06/21 23:56: WBC 11.60 H, Hgb 13.5, Hct 42.4, Plt Count 342 03/06/21 23:56: Sodium 140, Potassium 4.2, BUN 24 H, Creatinine 1.48 H, Glucose 162 H, Total Bilirubin 0.3, AST 15, ALT 30, Alkaline Phosphatase 96, Lipase 93 Assessment & Plan Discharge Plan: Home Plan to discharge in: 48 Hours Physician Review Additional Text: COVID: negative CT scan: Impression: Persistent distention of proximal to mid small bowel loops, possible secondary to partial small bowel obstruction. Continued irregular appearance of terminal ileum. Physical exam: General: Alert, In no apparent distress, Oriented x3 HEENT: Atraumatic, PERRLA, Mucous membr. moist/pink, EOMI, Sclerae nonicteric Neck: Supple, 2+ carotid pulse no bruit, No LAD, Without JVD or thyroid abnormality Respiratory: Clear to auscultation bilaterally, Normal air movement Cardiovascular: Regular rate/rhythm, Normal S1 S2 Gastrointestinal: No significant pain to the abdomen noted. Normal bowel sounds noted. Musculoskeletal: No tenderness Integumentary: No rashes Neurological: Normal gait, Normal speech, Normal strength at 5/5 x4 extr, Normal tone, Normal affect Lymphatics: No axilla or inguinal lymphadenopathy Impression: Abdominal pain, nausea secondary to Crohn's exacerbation Acute kidney injury Hypertension Hypothyroidism Depression with anxiety Plan: Abdominal pain, nausea secondary to Crohn's exacerbation: Patient is passing gas. Less pain noted. Doubt partial small bowel obstruction. We will start clear liquid diet. Continue IV antibiotic therapyZosyn. Continue IV steroid. GI consulted. Await further recommendations. Encourage ambulation. Anticipate improvement over the next 2 to 3 days. Acute kidney injury: Continue IV fluids. Will monitor renal function. Electrolyte protocol in place. Hypertension: Blood pressure stable without medication at this time. Hold lisinopril 5 mg daily. Consider restarting if blood pressure remains elevated. Hypothyroidism: Continue levothyroxine 25 mcg daily. Depression with anxiety: Continue bupropion 150 mg daily and Zoloft 150 mg daily. DVT PPX: Heparin Code status: Full code Discharge Plan: Home at discharge Time Spent Managing Pts Care (In Minutes): 55
[2021-03-07] MEDS: buPROPion HCL 100 MG TAB PO SCH (09:38)
[2021-03-07] MEDS: THIAMINE HCL 100 MG TABLET PO SCH (09:38)
[2021-03-07] MEDS: METHYLPREDNISOLONE 40 MG INJ IV SCH ×2 (09:39→16:16)
[2021-03-07] MEDS: VITAMIN D 1000 UNIT TAB PO SCH (09:39)
[2021-03-07] MEDS: MORPHINE 2 MG/ML SYR IV PRN ×3 (09:39→21:01)
[2021-03-07] MEDS: PIPER TAZO 3.375 GM in NA CHLORIDE 0.9% 100 ML IV SCH ×2 (09:40→16:16)
[2021-03-07] MEDS: LEVOTHYROXINE SOD 0.025 MG TAB PO SCH (09:41)
[2021-03-07] MEDS: SERTRALINE HCL 100 MG TAB PO SCH (09:41)
[2021-03-07] MEDS: FOLIC ACID 1 MG TABLET PO SCH (09:42)
[2021-03-07] MEDS: D5 0.45 NS 1,000 ML IV SCH (09:58)
--- NOTE | 2021-03-07 14:08 | RAD REPORT ---
EXAM DESCRIPTION: CT - Abdomen Pelvis W Contrast - 03/07/2021 7:07 am CLINICAL HISTORY: ABD PAIN COMPARISON: 02/02/2021. TECHNIQUE: CT ABDOMEN PELVIS WITH IV CONTRAST on 03/06/2021 11:33 PM FORGING DIE FINISHER This exam was performed according to our departmental dose-optimization program, which includes autom ated exposure control, adjustment of the mA and/or kV according to patient size and/or use of iterati ve reconstruction technique. FINDINGS: Lower lungs are clear. Abdomen: The liver is normal in appearance. There is no biliary dilatation. Gallbladder is mildly dis tended. There is a tiny hiatal hernia. The gallbladder wall is slightly irregular. The pancreas and s pleen are normal in appearance. Adrenal glands are normal. Kidneys are mildly atrophic with a small c yst in the mid to upper pole of the right kidney. Abdominal aorta is normal in course and caliber without aneurysm. There is no free air. There is no r etroperitoneal adenopathy. The terminal ileum is slightly hyperenhancing with irregularity of the wal l.. Pelvis: There is moderate diverticulosis of the distal colon. There is mild distention of multiple sm all bowel loops in the left mid to upper abdomen with relative decompression of distal abdominal loop s. Urinary bladder is unremarkable. There is no free fluid. Uterus is normal in size. The appendix is only partially visualized. Skeleton: There are no acute osseous findings. No suspicious bony lesions. IMPRESSION: Persistent distention of proximal to mid small bowel loops, possibly secondary to a part ial small bowel obstruction. Continued irregular appearance of the terminal ileum. Electronically signed by: Karel Chandler MD 03/07/2021 2:23 AM FORGING DIE FINISHER Due to temporary technical issues with the PACS/Fluency reporting system, reports are being signed by the in house radiologists without review as a courtesy to insure prompt reporting. The interpreting radiologist is fully responsible for the content of the report.
[2021-03-07 17:25] VITALS: BMI 46.0
[2021-03-07 18:32] LABS: Urine Appearance CLEAR (Clear); Urine Bilirubin NEGATIVE (Negative); Urine Blood NEGATIVE (Negative); Urine Color YELLOW (Yellow); Urine Glucose NEGATIVE (Negative); Urine Protein NEGATIVE (Negative); Urine Specific Gravity >=1.030 (1.005-1.030); Urine Urobilinogen 0.2 mg/dL (0.2-1.0); Urine pH 5.5 (5.0-7.0)
[2021-03-07 18:35] LABS: Urine Microscopic Reflex NO UMIC
[2021-03-08 00:42] VITALS: O2SAT 93
[2021-03-08 00:56] VITALS: BP 106/52; TEMP 97.6
[2021-03-08] MEDS: PIPER TAZO 3.375 GM in NA CHLORIDE 0.9% 100 ML IV SCH ×2 (01:28→10:37)
[2021-03-08] MEDS: METHYLPREDNISOLONE 40 MG INJ IV SCH ×2 (01:28→10:38)
[2021-03-08] MEDS: MORPHINE 2 MG/ML SYR IV PRN (02:37)
[2021-03-08 05:25] LABS: Absolute Lymphocytes (CBC) 1.2 K/uL (0.7-4.9); Hematocrit 39.1 % (36.0-45.0); Lymphocytes % 13.5 % (15.3-44.8); MPV 7.1 fL (7.6-11.3); RBC Red Blood Cell Count 4.24 M/uL (3.86-4.86)
[2021-03-08] MEDS: D5 0.45 NS 1,000 ML IV SCH ×2 (05:37→10:00)
[2021-03-08 05:41] LABS: Albumin 2.9 g/dL (3.4-5.0); Bilirubin Total 0.4 mg/dL (0.2-1.0); Potassium 4.9 mmol/L (3.5-5.1); Protein, Total 6.2 g/dL (6.4-8.2)
--- NOTE | 2021-03-08 06:02 | P.PN ---
Subjective Date of Service: 03/08/21 Primary Care Provider: GI-Dr. Lopez(Crohn specialist) Chief Complaint: Crohn's flare Subjective: Improving Physical Examination - Vital Signs Temperature: 97.6 F Blood Pressure: 106/52 Pulse: 53 Respirations: 18 Pulse Ox (%): 97 Assessment & Plan Discharge Plan: Home Plan to discharge in: 24 Hours Physician Review Additional Text: COVID: negative CT scan: Impression: Persistent distention of proximal to mid small bowel loops, possible secondary to partial small bowel obstruction. Continued irregular appearance of terminal ileum. Physical exam: General: Alert, In no apparent distress, Oriented x3 HEENT: Atraumatic, PERRLA, Mucous membr. moist/pink, EOMI, Sclerae nonicteric Neck: Supple, 2+ carotid pulse no bruit, No LAD, Without JVD or thyroid abnormality Respiratory: Clear to auscultation bilaterally, Normal air movement Cardiovascular: Regular rate/rhythm, Normal S1 S2 Gastrointestinal: No significant pain to the abdomen noted. Normal bowel sounds noted. Musculoskeletal: No tenderness Integumentary: No rashes Neurological: Normal gait, Normal speech, Normal strength at 5/5 x4 extr, Normal tone, Normal affect Lymphatics: No axilla or inguinal lymphadenopathy Impression: Abdominal pain, nausea secondary to Crohn's exacerbation Acute kidney injury Hypertension Hypothyroidism Depression with anxiety Plan: Abdominal pain, nausea secondary to Crohn's exacerbation: Patient doing well. No significant nausea, vomiting or abdominal pain. Patient tolerated clear liquid diet. Will try GI soft diet this morning. If doing well will discharge home. Spoke with GI yesterday. Patient is seen by Crohn's specialistDr. Cantu in [place]. She is to start infusions for treatment April 08. Anticipate likely discharge later today with antibiotics in steroid treatment. Will reassess later for possible discharge. Acute kidney injury: Continue IV fluids. Will monitor renal function. Electrolyte protocol in place. Hypertension: Blood pressure stable without medication at this time. Hold lisinopril 5 mg daily. Consider restarting if blood pressure remains elevated. Hypothyroidism: Continue levothyroxine 25 mcg daily. Depression with anxiety: Continue bupropion 150 mg daily and Zoloft 150 mg daily. DVT PPX: Heparin Code status: Full code Discharge Plan: Home at discharge Time Spent Managing Pts Care (In Minutes): 55
--- NOTE | 2021-03-08 10:10 | P.DS ---
Admission Date: 03/07/21 Discharge Date: 03/08/21 Primary Care Provider: [facility]-Dr. Lopez(Crohn specialist) Disposition: ROUTINE DISCHARGE Discharge Condition: GOOD Reason for Admission: Crohn's flare Consultations: GI-Dr. Adair Procedures: COVID: negative CT scan: Impression: Persistent distention of proximal to mid small bowel loops, possible secondary to partial small bowel obstruction. Continued irregular appearance of terminal ileum. Medical Problem List: Abdominal pain, nausea secondary to Crohn's exacerbation Acute kidney injury Hypertension Hypothyroidism Depression with anxiety Brief History of Present Illness: 65-year-old female with history of Crohn's, bowel obstructions, hypertension, hypothyroidism, depression presents emergency department for abdominal pain. Patient reports epigastric pain increasing over the course of last 24 hours, reports last bowel movement was yesterday evening and normal for her, still passing gas, no vomiting but does report some nausea. Patient reports this pain feels typical of a Crohn's flare to her, white blood cell count 11.6 creatinine 1.48 GFR 36 glucose 162 baseline creatinine around 0.9. COVID-negative CT abdomen pelvis with IV contrast and p.o. contrast demonstrates persistent distention of proximal and mid small bowel loops possibly secondary to partial small bowel obstruction vs Crohn's flareup. Patient admitted for treatment. Hospital Course: Patient presented with nausea, abdominal pain secondary to Crohn's colitis. Patient has had a history of Crohn's in the past. Patient is seen by GI specialistDr. Cantu. Dr. Cantu is a specialist that deals with Crohn's colitis. Patient is to start IV infusion treatments in March. Patient required hospitalization. Patient improved with IV antibiotic therapy, IV steroids. Patient had mild acute renal insufficiency likely from dehydration. This improved. At discharge patient tolerating soft diet. No further intervention required. Case discussed with GI who was consulted. No GI intervention recommended. At discharge patient will continue with a soft diet. At discharge she will continue with prednisone 20 mg 1 pill twice daily for 7 days then continue with prednisone 20 mg daily. Patient will continue with her 20 mg of prednisone daily thereafter to maintain her Crohn's. Patient had been using prednisone prior to admission. Patient will also continue with lactobacillus 3 times a day. Patient will continue with her Pentasa 500 mg 1 pill twice daily as well. Patient will follow-up with her GI specialist in [place] in the next 1 to 2 weeks to follow-up his hospitalization. Patient will start IV infusions for her Crohn's April 08. Education on Crohn's provided. Follow-up with PCP to further monitor and follow-up this hospitalization. Recommend to recheck labBMP in 1 week to monitor progress. Patient with history of hypertension. Patient has been taking lisinopril. Medication has been discontinued as blood pressure is well controlled. No need for lisinopril at discharge. Recommend to monitor her blood pressure daily. Recommend to maintain blood pressure less than 130/80. If blood pressure remains above 140/90 medication may need to be started. Will recommend to use a different type of medication instead of lisinopril if required in the future. This can be further addressed by her PCP. Patient with hypothyroidism. At discharge we will continue with levothyroxine 25 mcg daily. Patient with depression with anxiety. At discharge we will continue with Wellbutrin 150 mg daily and 75 mg at bedtime along with Zoloft 150 mg daily. Vital Signs/Physical Exam: Temp Pulse Resp BP Pulse Ox 97.6 F 53 18 106/52 L 97 03/08/21 08:56 03/08/21 08:56 03/08/21 08:56 03/08/21 08:56 03/08/21 08:56 General: Alert, In no apparent distress, Oriented x3, Cooperative HEENT: Atraumatic Neck: Supple Respiratory: Clear to auscultation bilaterally, Normal air movement Cardiovascular: Normal pulses, Regular rate/rhythm Gastrointestinal: Normal bowel sounds, No tenderness, No masses, No rebound, No guarding Musculoskeletal: No erythema, No tenderness, No warmth Integumentary: No tenderness/swelling, No erythema, No warmth, No cyanosis Neurological: Normal speech, Normal strength at 5/5 x4 extr, Normal tone, Normal affect Laboratory Data at Discharge: WBC 8.90 K/uL (4.3-10.9) D 03/08/21 05:04 Hgb 12.4 g/dL (12.0-15.0) 03/08/21 05:04 Hct 39.1 % (36.0-45.0) 03/08/21 05:04 Plt Count 308 K/uL (152-406) 03/08/21 05:04 Sodium 141 mmol/L (136-145) 03/08/21 05:04 Potassium 4.9 mmol/L (3.5-5.1) 03/08/21 05:04 BUN 13 mg/dL (7-18) 03/08/21 05:04 Creatinine 1.17 mg/dL (0.55-1.3) 03/08/21 05:04 Glucose 143 mg/dL (74-106) H 03/08/21 05:04 Total Bilirubin 0.4 mg/dL (0.2-1.0) 03/08/21 05:04 AST 11 U/L (15-37) L 03/08/21 05:04 ALT 28 U/L (12-78) 03/08/21 05:04 Alkaline Phosphatase 74 U/L (45-117) 03/08/21 05:04 Lipase 93 U/L (73-393) 03/06/21 23:56 Home Medications: Bupropion HCl [Wellbutrin] 75 mg PO BEDTIME 07/27/20 Cholecalciferol (Vitamin D3) [Vitamin D3] 1,000 unit PO DAILY 07/27/20 Levothyroxine Sodium 25 mcg PO DAILY 07/27/20 Sertraline [Zoloft*] 150 mg PO DAILY 07/27/20 Adalimumab [Humira 40 MG/0.8 ML*] 40 mg SQ Q14D 10/28/20 Mesalamine [Pentasa*] 500 mg PO BID 10/28/20 buPROPion HCL [Bupropion HCl] 150 mg PO DAILY 12/10/20 predniSONE [Prednisone*] 20 mg PO DAILY 28 Days #35 tab 01/11/21 Amoxicillin/Potassium Clav [Augmentin 500-125 Tablet] 1 each PO BID #14 tablet 03/08/21 Lactobacillus Acidophilus [Acidophilus Lactobacilli] 1 each PO TID #90 capsule 03/08/21 Ondansetron [Zofran (Odt)*] 4 mg PO Q6H PRN #10 tab 03/08/21 predniSONE [Prednisone*] 20 mg PO SEECOM #21 tab 03/08/21 New Medications: Lactobacillus Acidophilus [Acidophilus Lactobacilli] 1 each PO TID #90 capsule Amoxicillin/Potassium Clav [Augmentin 500-125 Tablet] 1 each PO BID #14 tablet predniSONE [Prednisone*] 20 mg PO SEECOM #21 tab Ondansetron [Zofran (Odt)*] 4 mg PO Q6H PRN #10 tab PRN Reason: Nausea / Vomiting Physician Discharge Instructions: Patient presented with nausea, abdominal pain secondary to Crohn's colitis. Patient has had a history of Crohn's in the past. Patient is seen by GI specialistDr. Cantu. Dr. Cantu is a specialist that deals with Crohn's colitis. Patient is to start IV infusion treatments in March. Patient required hospitalization. Patient improved with IV antibiotic therapy, IV steroids. Patient had mild acute renal insufficiency likely from dehydration. This im proved. At discharge patient tolerating soft diet. No further intervention required. Case discussed with GI who was consulted. No GI intervention recommended. At discharge patient will continue with a soft diet. At discharge she will continue with prednisone 20 mg 1 pill twice daily for 7 days then continue with prednisone 20 mg daily. Patient will continue with her 20 mg of prednisone daily thereafter to maintain her Crohn's. Patient had been using prednisone prior to admission. Patient will also continue with lactobacillus 3 times a day. Patient will continue with her Pentasa 500 mg 1 pill twice daily as well. Patient will follow-up with her GI specialist in [place] in the next 1 to 2 weeks to follow-up his hospitalization. Patient will start IV infusions for her Crohn's April 08. Education on Crohn's provided. Follow-up with PCP to further monitor and follow-up this hospitalization. Recommend to recheck labBMP in 1 week to monitor progress. Patient with history of hypertension. Patient has been taking lisinopril. Medication has been discontinued as blood pressure is well controlled. No need for lisinopril at discharge. Recommend to monitor her blood pressure daily. Recommend to maintain blood pressure less than 130/80. If blood pressure remains above 140/90 medication may need to be started. Will recommend to use a different type of medication instead of lisinopril if required in the future. This can be further addressed by her PCP. Patient with hypothyroidism. At discharge we will continue with levothyroxine 25 mcg daily. Patient with depression with anxiety. At discharge we will continue with Wellbutrin 150 mg daily and 75 mg at bedtime along with Zoloft 150 mg daily. Diet: Soft Activity: Ad jaylen Followup: NONE,NONE [Primary Care Provider] - Time spent managing pt's care (in minutes): 55
[2021-03-08] MEDS: SERTRALINE HCL 100 MG TAB PO SCH (10:38)
[2021-03-08] MEDS: LEVOTHYROXINE SOD 0.025 MG TAB PO SCH (10:38)
[2021-03-08] MEDS: buPROPion HCL 100 MG TAB PO SCH (10:38)
[2021-03-08] MEDS: VITAMIN D 1000 UNIT TAB PO SCH (10:38)
[2021-03-08] MEDS: THIAMINE HCL 100 MG TABLET PO SCH (10:38)
[2021-03-08] MEDS: FOLIC ACID 1 MG TABLET PO SCH (10:39)
== END 2021-03-08 13:20 | disposition home or self-care (01) ==
LOC: ER 23:13 → INTOOBSV 03-07 03:20 → ERHOLD 03-07 03:20 → 2ND 03-07 06:25
PROVIDERS: ADMIT Family Medicine; ATTEND Family Medicine
DX: K50.90 Crohn's disease, unspecified, without complications (principal); N17.9 Acute kidney failure, unspecified; I10 Essential (primary) hypertension; E03.9 Hypothyroidism, unspecified; F41.8 Other specified anxiety disorders; K21.9 Gastro-esophageal reflux disease without esophagitis; R73.03 Prediabetes; Z20.822 Contact with and (suspected) exposure to COVID-19; Z88.8 Allergy status to other drugs, medicaments and biological substances; Z88.3 Allergy status to other anti-infective agents; Z91.040 Latex allergy status; Z82.49 Family history of ischemic heart disease and other diseases of the circulatory system; Z80.9 Family history of malignant neoplasm, unspecified
CPT/HCPCS: 96361; 85025 ×2; 80048; 36415 ×2; 80076; 81003; 83690; 80053; 74177; 96375; 96374; 99285; U0003; Q9967; J2543 ×5; J2270 ×4; J7799 ×2; J7030; J2930; J2405; J2920 ×4

== ENCOUNTER 2021-04-04 20:32 | Inpatient (IN) | payer BC ==
--- OUTSIDE RECORDS SUMMARY | 2021-04-04 20:35 | XMS REPORT | Continuity of Care Document ---
:1955 Author Organization [facility] t Address [address] [place] [address] Care Team Providers Name Role Phone Kael MEADOWS MD, A Primary Care Physician Karin PARSONS Attending Clinician Ca VANN Attending Clinician Unavailable LUIS FELIPE Attending Clinician Unavailable KARIN Attending Clinician Unavailable Kaci PARSONS, R. Attending Clinician Yadira MURPHY Attending Clinician Unavailable Ca VANN Admitting Clinician Unavailable Payers Payer Name Policy Type Policy Number Effective Date Expiration Date S ource BCBS PPO POS EPO [id number] 2010 00:00:00 CHOICE Problems Condition Condition Condition Status Onset Resolution Last Treating Co mments Source Name Details Category Date Date Treatment Clinician Date Crohn's Crohn's Disease Active 2020-02 [facility] disease disease 2-22 [place] (HCCode) (HCCode) 00:00: of 00 Medicin e Essential Essential Disease Active 2018-0 [facility] hypertensi hypertensi [facility]-13 [facility] on on 00:00: Hospita 00 l Chest pain Chest pain Disease Active M ethodi 2-02 st 00:00: Hospita 00 l 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:00: Hospita 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 [...] Allergy Active Low Itching 2020-[address] [facility] Latex Propensi Active Rash 2020-02 [facility] ty to 2-10 College adverse 00:00: of reaction 00 Medicin s to e substanc e Latex, Propensi Active Itching [facility] Natural ty to st Rubber adverse Hospita reaction l s to drug NO KNOWN Allergy Active SLEH ALLERGIE S Family History Family Member Diagnosis Comments Start Date Stop Date Source Natural father Cancer [facility] Natural mother Heart disease [facility] Social History Social Habit Start Date Stop Date Quantity Comments Source Exposure to Not sure [facility] SARS-CoV-2 Medicine (event) History [facility] Std [facility] Drinks History [facility] Binge [facility] Tobacco use and 2021-01-25 2021-01-25 Smokeless tobacco [facility] of exposure 00:00:00 00:00:00 non-user Medicine History SDOH 2018-03-19 2018-03-19 1 [facility] Alcohol Frequency 00:00:00 00:00:00 Hospita l Alcohol intake 2018-03-19 2018-03-19 Current [facility] 00:00:00 00:00:00 non-drinker of Hospital alcohol (finding) Sex Ass[birth year] F [facility] Co llege of 00:00:00 00:00:00 Medicine Smoking Status Start Date Stop Date Source Never smoked tobacco [facility] ege [facility] Former smoker 2018-03-19 00:00:00 2018-03-19 00:00:00 [facility] Medications Ordered Filled Start Stop Current Ordering Indication Dosage Frequency Signature Comments Components Source Medication Medication Date Date Medication? Clinician (SIG) Name Name MINERAL OIL 2021- No Take by Kamala albrecht OR 03-29 mouth. [place] 12:06: 00:00 of 07 :00 Medicin e MINERAL OIL 2021- No Take by Kamala albrecht OR 03-29 mouth. [place] 12:06: 00:00 of 07 :00 Medicin e Mesalamine 2021- No Take by Sixto ylor (PENTASA) 03-29 mouth. [place] 500 MG CPCR 12:04: 00:00 of 57 :00 Medicin e Mesalamine 2021- No Take by Ba ylor (PENTASA) 03-29 mouth. [place] 500 MG CPCR 12:04: 00:00 of 57 :00 Medicin e ferrous 2021- No 325mg Take 325 [facility] or sulfate 325 03-29 mg by Colleg e (65 Fe) MG 12:04: 00:00 mouth of tablet 30 :00 daily. Medicin e ferrous 2021- No 325mg Take 325 [facility] or sulfate 325 03-29 mg by Colleg e (65 Fe) MG 12:04: 00:00 mouth of tablet 30 :00 daily. Medicin e bisacodyl 2021- No 5mg Take 5 mg Ba ylor (DULCOLAX) 03-29 by mouth Eric ege 5 MG EC 12:03: 00:00 daily as of tablet 26 :00 needed for Medicin Constipati e on. Lactobacill 2021- No Take by Kamala albrecht us 03-29 mouth. [place] (ACIDOPHILU 12:03: 00:00 of S OR) 05 :00 Medicin e Cholecalcif 0 Yes Take by Ba ylor laex - mouth. [place] (VITAMIN D) 11:46: of 125 MCG 58 Medicin (5000 UT) e CAPS Cholecalcif 2021-0 Yes Take by Sixto ylor alex -11 mouth. [place] (VITAMIN D) 11:46: of 125 MCG 58 Medicin (5000 UT) e CAPS atorvastati Yes 10mg Take 10 mg Ran n (LIPITOR) 2-11 by mouth Eric ege 10 MG 11:46: daily. of tablet 58 Medicin e Cetirizine Yes Take 1 Baylo r HCl (ZYRTEC 2-11 Chew Tab Eric ege ALLERGY) 10 11:46: by mouth of MG CAPS 58 daily. Medicin e hyoscyamine Yes .125mg Take 0.125 [facility] (LEVSIN) 2-11 mg by [place] 0.125 MG 11:46: mouth of tablet 58 every 4 Medicin hours as e needed for Cramping. metFORMIN Yes Take 1 Ran 500 MG TB24 2-11 capsule by Co jose luis 11:46: mouth of 58 daily. Medicin e metoprolol Yes 50mg Take 50 mg [facility] (TOPROL-XL) 2-11 by mouth Eric ege 50 MG XL 11:46: daily. of tablet 58 Medicin e Acetaminoph Yes Take by Sixto adams en (TYLENOL 2-11 mouth. Colleg e CHILDRENS) 11:29: Take by of 160 MG/5ML 58 mouth q 4 Medi renea SUSP hours prn e predniSONE Yes [id number] 20mg Take 1 B [facility] (DELTASONE) 2-11 Tablet by Col lege 20 MG 00:00: mouth of tablet 00 daily. Medicin Taper by 5 e mg every week. MINERAL OIL 2020-02 Yes Take by Sixto adams OR 2-10 mouth. [place] 09:20: of 34 Medicin e Cholecalcif 2020-02 Yes Take by Sixto adams alex 2-10 mouth. [place] (VITAMIN D) 09:20: of 125 MCG 34 Medicin (5000 UT) e CAPS ferrous 2020-02 Yes 325mg Take 325 Baylo r sulfate 2-10 mg by [place] (FEROSUL) 09:19: mouth of 325 (65 Fe) 41 daily. Medici n MG tablet e Mesalamine 2020-02 Yes Take by Niko herman (PENTASA) 2-10 mouth. [place] 500 MG CPCR 09:19: of 41 Medicin e predniSONE 2020-02 Yes [facility] (DELTASONE) 1-26 College 20 MG 00:00: of tablet 00 Medicin e predniSONE 2020-02- No 20mg Take 20 mg [facility] (DELTASONE) 03-13 by mouth Col lege 20 MG 00:00: 00:00 daily. of tablet 00 :00 Medicin e predniSONE 2020-02- No 20mg Take 20 mg [facility] (DELTASONE) 03-13 by mouth Col lege 20 MG 00:00: 00:00 daily. of tablet 00 :00 Medicin e ondansetron 2020-02 Yes TAKE 1 [facility] (ZOFRAN) 4 1-15 TABLET BY Eric ege MG tablet 00:00: MOUTH of 00 EVERY 6 Medicin HOURS e NEEDED FORNAUSEA AND VOMITING ondansetron 2020-02 Yes TAKE 1 [facility] or (ZOFRAN) 4 1-15 TABLET BY Reic ege MG tablet 00:00: MOUTH of 00 EVERY 6 Medicin HOURS e NEEDED FORNAUSEA AND VOMITING ondansetron 2020-02 Yes TAKE 1 [facility] or (ZOFRAN) 4 1-15 TABLET BY Eric ege MG tablet 00:00: MOUTH of 00 EVERY 6 Medicin HOURS e NEEDED FORNAUSEA AND VOMITING pantoprazol 2020-02 Yes 40mg Take 40 mg Ran e 02-27 by [facility] (PROTONIX) 00:00: daily. of 40 MG 00 Medicin tablet e pantoprazol 2020-02- No 40mg Take 40 mg [facility] e 02-27 by [facility] (PROTONIX) 00:00: 00:00 daily. of 40 MG 00 :00 Medicin tablet e pantoprazol 2020-02- No 40mg Take 40 mg [facility] e 02-27 by [facility] (PROTONIX) 00:00: 00:00 daily. of 40 MG 00 :00 Medicin tablet e lisinopril 2020-02 Yes 1 po daily [facility] (PRINIVIL, 02-23 in [facility]) 5 00:00: morning of MG tablet 00 Medicin e lisinopril 2020-02 Yes 1 po daily B [facility] (PRINIVIL, 02-23 in [facility]) 5 00:00: morning of MG tablet 00 Medicin e lisinopril 2020-02 Yes 1 po daily B ayherman (PRINIVIL, 08 in the [facility]) 5 00:00: morning of MG tablet 00 Medicin e sertraline 2020-02 Yes [facility] (ZOLOFT) 02-17 [place] 100 MG 00:00: of tablet 00 Medicin e buPROPion 2020-02 Yes TAKE 2 [facility] (WELLBUTRIN 1-02 TABLETS BY Co llSignicaste ) 75 MG 00:00: MOUTH of tablet 00 EVERY Medicin MORNING e AND 1 TABLET BY MOUTH EVERY EVENING sertraline 2020-02 Yes [facility] (ZOLOFT) 02-17 [place] 100 MG 00:00: of tablet 00 Medicin e buPROPion 2020-02 Yes TAKE 2 [facility] (WELLBUTRIN 1-02 TABLETS BY Co llege ) 75 MG 00:00: MOUTH of tablet 00 EVERY Medicin MORNING e AND 1 TABLET BY MOUTH EVERY EVENING sertraline 2020-02 Yes [facility] (ZOLOFT) 02-17 [place] 100 MG 00:00: of tablet 00 Medicin e buPROPion 2020-02 Yes TAKE 2 Ran (WELLBUTRIN 1-02 TABLETS BY Co llege ) 75 MG 00:00: MOUTH of tablet 00 EVERY Medicin MORNING e AND 1 TABLET BY MOUTH EVERY EVENING Adalimumab 2020-02 Yes [facility] (HUMIRA 0-25 [facility]) 40 00:00: of MG/0.8ML 00 Medicin injection e Adalimumab 2020-02- No [facility] (HUMIRA 0-25 01-14 [place] PEN) 40 00:00: 00:00 of MG/0.8ML 00 :00 Medicin injection e levothyroxi Yes levothyrox [facility] 09-17 ine 25 mcg [place] (SYNTHROID) 00:00: tablet of 25 MCG 00 TAKE 1 Medicin tablet TABLET BY e MOUTH DAILY IN THE MORNING WITH JUST A SIP OF WATER. WAIT 30 MINUTES BEFORE EATING OR DRINKING ANYTHING levothyroxi Yes levothyrox [facility] 09-17 ine 25 mcg [place] (SYNTHROID) 00:00: tablet of 25 MCG 00 TAKE 1 Medicin tablet TABLET BY e MOUTH DAILY IN THE MORNING WITH JUST A SIP OF WATER. WAIT 30 MINUTES BEFORE EATING OR DRINKING ANYTHING levothyroxi Yes levothyrox [facility] 09-17 ine 25 mcg College (SYNTHROID) 00:00: tablet of 25 MCG 00 TAKE 1 Medicin tablet TABLET BY e MOUTH DAILY IN THE MORNING WITH JUST A SIP OF WATER. WAIT 30 MINUTES BEFORE EATING OR DRINKING ANYTHING lisinopriL- Yes [id number] 1{tbl} QD TAKE 1 [facility] hydrochloro 7-[address] thiazide 00:00: MOUTH Hospita (PRINZIDE) 00 DAILY l 10-12.5 mg per tablet metoprolol Yes [id number] TAKE 1 Me thodi tartrate 7-29 TABLET(50 st (LOPRESSOR) 00:00: MG) BY Hosp mich 50 mg 00 MOUTH l tablet TWICE DAILY metoprolol 2020- No [id number] TAKE 1 M ethodi tartrate 4-10 09- TABLET(50 st (LOPRESSOR) 00:00: 00:00 MG) BY Hos alba 50 mg 00 :00 MOUTH l tablet TWICE DAILY lisinopriL- 2020- No [id number] 1{tbl} QD TAKE 1 [facility] hydrochloro -10 09- TABLET BY st thiazide 00:00: 00:00 MOUTH Hospita (PRINZIDE) 00 :00 DAILY l 10-12.5 mg per tablet lisinopriL- 2020- No [id number] 1{tbl} QD Take 1 [facility] hydrochloro 1-25 04- tablet by st thiazide 00:00: 00:00 mouth Hospita (PRINZIDE) 00 :00 daily. l 10-12.5 mg per tablet metoprolol 2020- No [id number] 50mg Q.5D Take 1 M ethodi tartrate 1-10 06-26 tablet (50 st (LOPRESSOR) 00:00: 00:00 mg total) Hospita 50 mg 00 :00 by mouth 2 l tablet (two) times a day. lisinopril- 2020- No [id number] 1{tbl} QD TAKE 1 [facility] hydrochloro -30 -[address] thiazide 00:00: 00:00 MOUTH Hospita (PRINZIDE) 00 :00 DAILY l 10-12.5 mg per tablet metoprolol 2020- No [id number] TAKE 1 M ethodi tartrate 1-30 -25 TABLET(50 st (LOPRESSOR) 00:00: 00:00 MG) BY Hos alba 50 mg 00 :00 MOUTH l tablet TWICE DAILY sertraline Yes sertraline B [facility] (ZOLOFT) 50 02-17 50 mg College MG tablet 00:00: tablet of 00 Medicin e sertraline 2021- No sertraline Ran (ZOLOFT) 50 02-17 50 mg Colleg e MG tablet 00:00: 00:00 tablet of 00 :00 Medicin e sertraline 2021- No sertraline Ran (ZOLOFT) 50 02-17 50 mg Colleg e MG tablet 00:00: 00:00 tablet of 00 :00 Medicin e aspirin Yes 81mg QD Take 81 mg Meth denis (ECOTRIN) [address] 81 MG 16:39: daily. Hospita enteric 47 l coated tablet fexofenadin Yes Take by Met brianne e HCl [address] (JAYCOB 16:39: needed. Hospit a ODT ORAL) 47 l cetirizine Yes 10mg Q24H Take 10 mg M ethodi (ZyrTEC) 10 8-[address] MG tablet 16:39: daily as Hosp mich 47 needed for l allergies. mvit,calc,m Yes Take by Met brianne in-folic 8-[address] [id number] 16:39: Hospita 200 mcg 47 l tablet [...] Name Observation Time Observation Value Comments Source Body weight 2021-03-29 17:28:00 110.678 kg [facility] BMI 2021-03-29 17:28:00 46.10 [facility] Systolic blood 2021-03-29 17:28:00 143 mm[Hg] [facility] pressure Medicine Diastolic blood 2021-03-29 17:28:00 82 mm[Hg] [facility] Medicine Heart rate 2021-03-29 17:28:00 60 /min [facility] Body temperature 2021-03-29 17:28:00 36.22 [facility] Respiratory rate 2021-03-29 17:28:00 16 /min [facility] Body height 2021-03-29 17:28:00 154.9 cm [facility] Body height 2021-03-01 15:04:00 154.9 [facility] Body weight 2021-03-01 15:04:00 107.593 [facility] BMI 2021-03-01 15:04:00 44.82 kg/m2 [facility] HEIGHT 2021-02-03 05:20:00 154.9 cm WEIGHT 2021-02-03 05:20:00 106.505 kg HEIGHT 2021-02-03 05:20:00 154.9 cm WEIGHT 2021-02-03 05:20:00 106.505 kg Systolic blood 2021-01-25 15:06:00 122 mm[Hg] [facility] Medicine Diastolic blood 2021-01-25 15:06:00 80 mm[Hg] [facility] Medicine Heart rate 2021-01-25 15:06:00 81 /min [facility] Body temperature 2021-01-25 15:06:00 36.28 [facility] Respiratory rate 2021-01-25 15:06:00 14 /min [facility] Body height 2021-01-25 15:06:00 154.9 cm [facility] Body weight 2021-01-25 15:06:00 106.142 kg [facility] C ollege of Medicine BMI 2021-01-25 15:06:00 44.21 kg/m2 [facility] Procedures This patient has no known procedures. Plan of Care Planned Activity Planned Date Details Comments Source Future Scheduled 2021-04-04 Screening for malignant [facility] of Test 13:40:02 neoplasm of colon Medicine (procedure) [code = 478736438] Future Scheduled 2021-04-04 Screening for malignant [facility] of Test 13:40:02 neoplasm of breast Medicine (procedure) [code = 041403622] Future Scheduled 2021-04-04 TETANUS SHOT (ADULT) [facility] of Test 13:40:02 [code = TETANUS SHOT Medicin e (ADULT)] Future Scheduled 2021-04-04 BMI FOLLOW UP PLAN [code [facility] of Test 13:40:02 = BMI FOLLOW UP PLAN] Medici ne Future Scheduled 2021-04-04 Hepatitis C screening [facility] Test 13:40:02 (procedure) [code = Medicine 268605953] Future Scheduled 2021-04-04 Human immunodeficiency B [facility] Test 13:40:02 virus screening Medicine (procedure) [code = 944812860] Future Scheduled 2021-04-04 Screening for malignant [facility] of Test 13:40:02 neoplasm of cervix Medicine (procedure) [code = 334483310] Future Scheduled 2021-04-04 ZOSTER VACCINE (1 of 2) [facility] Test 13:40:02 [code = ZOSTER VACCINE Medic ine (1 of 2)] Future Scheduled 2021-04-04 FLU VACCINE > 6 MONTHS B [facility] Test 13:40:02 [code = FLU VACCINE > 6 Medi cine MONTHS] Future Scheduled 2021-04-04 COVID-19 Vaccine (2 - Ba [facility] of Test 13:40:02 Pfizer 3-dose series) Medici ne [code = COVID-19 Vaccine (2 - Pfizer 3-dose series)] Future Scheduled 2021-04-04 Screening for malignant [facility] of Test 13:40:02 neoplasm of colon Medicine (procedure) [code = 261810932] Future Scheduled 2021-04-04 Screening for malignant [facility] of Test 13:40:02 neoplasm of breast Medicine (procedure) [code = 905653943] Future Scheduled 2021-04-04 TETANUS SHOT (ADULT) [facility] of Test 13:40:02 [code = TETANUS SHOT Medicin e (ADULT)] Future Scheduled 2021-04-04 BMI FOLLOW UP PLAN [code [facility] of Test 13:40:02 = BMI FOLLOW UP PLAN] Medici ne Future Scheduled 2021-04-04 Hepatitis C screening [facility] Test 13:40:02 (procedure) [code = Medicine 006736293] Future Scheduled 2021-04-04 Human immunodeficiency B [facility] of Test 13:40:02 virus screening Medicine (procedure) [code = 103440960] Future Scheduled 2021-04-04 Screening for malignant [facility] Test 13:40:02 neoplasm of cervix Medicine (procedure) [code = 274285229] Future Scheduled 2021-04-04 ZOSTER VACCINE (1 of 2) [facility] Test 13:40:02 [code = ZOSTER VACCINE Medic ine (1 of 2)] Future Scheduled 2021-04-04 FLU VACCINE > 6 MONTHS B [facility] Test 13:40:02 [code = FLU VACCINE > 6 Medi cine MONTHS] Future Scheduled 2021-04-04 COVID-19 Vaccine (2 - Ba [facility] of Test 13:40:02 Pfizer 3-dose series) Medici ne [code = COVID-19 Vaccine (2 - Pfizer 3-dose series)] Future Scheduled 2021-01-25 Screening for malignant [facility] of Test 09:15:59 neoplasm of colon Medicine (procedure) [code = 086868297] Future Scheduled 2021-01-25 Screening for malignant [facility] of Test 09:15:59 neoplasm of breast Medicine (procedure) [code = 744639012] Future Scheduled 2021-01-25 TETANUS SHOT (ADULT) [facility] of Test 09:15:59 [code = TETANUS SHOT Medicin e (ADULT)] Future Scheduled 2021-01-25 Hepatitis C screening [facility] of Test 09:15:59 (procedure) [code = Medicine 992593382] Future Scheduled 2021-01-25 Human immunodeficiency B [facility] of Test 09:15:59 virus screening Medicine (procedure) [code = 937015280] Future Scheduled 2021-01-25 Screening for malignant [facility] of Test 09:15:59 neoplasm of cervix Medicine (procedure) [code = 136369404] Future Scheduled 2021-01-25 ZOSTER VACCINE (1 of 2) [facility] Test 09:15:59 [code = ZOSTER VACCINE Medic ine (1 of 2)] Future Scheduled 2021-01-25 FLU VACCINE > 6 MONTHS B [facility] Test 09:15:59 [code = FLU VACCINE > 6 Medi cine MONTHS] Future Scheduled 2021-01-25 COVID-19 Vaccine (2 - Ba [facility] Test 09:15:59 Pfizer 2-dose series) Medici ne [code = COVID-19 Vaccine (2 - Pfizer 2-dose series)] Future Scheduled COVID-19 VACCINE (1) [facility] Test [code = COVID-19 VACCINE Hos pital (1)] Future Scheduled Hepatitis C screening [facility] Test (procedure) [code = Hospital 083261055] Future Scheduled Screening for malignant [facility] neoplasm of cervix Hospital (procedure) [code = 991049410] Future Scheduled BREAST CANCER SCREENING [facility] Test [code = BREAST CANCER Hospit al SCREENING] Future Scheduled COLONOSCOPY SCREENING [facility] Test [code = COLONOSCOPY Hospital SCREENING] Future Scheduled SHINGLES VACCINES (#1) M ethodist Test [code = SHINGLES Hospital VACCINES (#1)] Future Scheduled INFLUENZA VACCINE [code [facility] Test = INFLUENZA VACCINE] Hospita l Future Appointment 2021-04-08 Mn 1, [facility] llege of 09:00:00 Medicine Future Appointment 2021-04-08 Mn 1, [facility] llege of 09:00:00 Medicine Encounters Start End Encounter Admission Attending Care Care Encounter Source Date/Time Date/Time Type Type Clinicians Facility Department ID 2021-03-29 2021-03-29 Office ADINA Frazier [id number] [facility] 11:00:00 13:34:50 Visit Manreet AMBULATOR 350.1.13.21 College Y 0.2.7.2.686 of [id number] Medi renea 325 e 2021-03-01 2021-03-01 Office ADINA Frazier [id number] [facility] 09:00:00 11:07:59 Visit Manreet AMBULATOR 350.1.13.21 College Y 0.2.7.2.686 of [id number] Medi renea 325 e 2021-02-03 2021-02-06 Inpatient ER LUIS FELIPE [facility] [id number] [facility] 05:14:00 16:07:00 OBINNA 2021-01-25 2021-01-25 Office ADINA FRAZIER [id number] [place] [address] 00:00:00 19:54:04 Visit MANREET AMBULATOR 350.1.13.21 College Y 0.2.7.2.686 of [id number] Medi renea 325 e 2020-09-12 2020-09-12 Refill Kaci, 1.2.840.1 [id number] [facility]i 00:00:00 00:00:[address] [place] 3.430.2.7 Hospit a .3.856539 l .8 2020-06-11 2020-06-11 Refill Kaci, 1.2.840.1 [id number] [facility]i 00:00:00 00:00:00 [place] R[address]06.1.[address] 3.430.2.7 Hospit a .3.746905 l .8 2020-03-12 2020-03-12 Orders Javier May 1.2.840.1 [id number] Methodi 00:00:00 00:00:[address] 3.430.2.7 Hospit a .3.982716 l .8 Results Test Description Test Time Test Comments Results Result Comments Source HEPATITIS B PANEL 2021-02-06 20:49:20 Test Item Value Reference Range Interpretation Comme nts HEPATITIS B CORE TOTAL ANTIBODY (BEAKER) (test code = Nonreactive Nonreactive 497) HEPATITIS B SURFACE ANTIBODY (BEAKER) (test code = 647) < mIU/mL <8.0 HEPATITIS B SURFACE ANTIGEN (2) (BEAKER) (test code = Nonreactive Nonreactive 2585) Second Watch Sergeant ID - BSOperator ID - BSVITAMIN D, [id number] 18:58:29 Test Item Value Reference Range Interpretation Comments VITAMIN D 25-OH (BEAKER) (test 48.0 ng/mL 6.6-49.9 code = 2764) Effective 11/26/2016: Reference Range ChangeNew: 6.6-49.9 ng/mL Previous: 13.0-47.8 ng/mLRecommended Vitamin D Target Range: 30.0-40.0 ng/mLOperator ID - [facility]. DIFFICILE GDH [id number] 13:19:34 Test Item Value Reference Range Interpretation Comments CDT TOXIN (test code Negative Negative = [id number]) CDT GDH ANTIGEN (test Negative Negative No ind ication of code = 2421664302) Clostridi um difficile infection and n o colonization. Discontinue ent randy isolation and t herapy. Testing performed by [employer] Rapid Cassette Assay. For GDH, published sensitivity of the assay is 98.7% compared to cytotoxicity testing. For Toxin AB, published sensitivity is 87.8% and specificity 99.4% compared to cytotoxicity testing.Verification of kit performance was done by the [facility] Microbiology Lab prior to clinical use.BASIC METABOLIC [id number] 05:52:32 Test Item Value Reference Range Interpretation [...] S NOT APPLICABLE FOR DIALYSIS PATIEN TS. Second Watch Sergeant ID - PIAYA LCBC (HEMOGRAM ONLY)2021-02-06 05:38:48 [...] (BEAKER) (test code = 413) BASIC METABOLIC [id number] 05:38:29 Test Item Value Reference Range Interpretation [...] S NOT APPLICABLE FOR DIALYSIS PATIEN TS. Second Watch Sergeant ID - DEANNA MC-REACTIVE [id number] 05:38:29 Test Item Value Reference Range Interpretation Comments C-REACTIVE PROTEIN (BEAKER) (test 3.86 mg/dL 0.00-0.50 H code = 676) Second Watch Sergeant ID - DEANNA MCBC (HEMOGRAM ONLY)2021-02-05 05:28:27 [...] 0-0 (BEAKER) (test code = 413) CT, [id number] 16:56:00Unlisted Reason for Exam - Click Yes and Enter Reason Below->NoIs this for enterography?->NoWill this procedure require oral contrast?->No [facility] 1955 Sex: FFINAL [...] MDReport Verified Date/Time: 02/04/2021 16:56:27 Reading Location: [facility] Diagnostic Imaging Reading Room - [place] [id number] VITAMIN B12 AND [id number] 07:14:11 Test Item Value Reference Range Interpretation Comments VITAMIN B12 187 pg/mL 213-816 L (BEAKER) (test code = 774) FOLATE (BEAKER) 18.90 ng/mL See_Comment [Automated message] (test code = 362) The system which generated this result transmitted ref erence range: >=7.00. The reference range was not used to interpr et this result as normal/abnormal . Second Watch Sergeant ID - LIDA [id number] 07:14:10 Test Item Value Reference Range Interpretation Comments FERRITIN (BEAKER) (test code = 110.79 ng/mL 5.00-275.00 361) Second Watch Sergeant ID - LIDA FIRON, TIBC, % SAT. (WITHOUT FERRITIN)2021-02-04 06:55:40 Test Item Value Reference Range Interpretation Comments IRON (BEAKER) (test code = 547) 75.0 ug/dL 40.0-160.0 TOTAL IRON BINDING CAPACITY 258 ug/dL 250-450 (BEAKER) (test code = 769) IRON % SATURATION (2) (BEAKER) 29 % 20-55 (test code = 2590) Second Watch Sergeant ID - LIDA FHEPATIC FUNCTION [id number] 16:57:11 Test Item Value Reference Range Interpretation [...] Specimen slightly (test code = 347) hemolyzed Second Watch Sergeant ID - PIAYA LHEMOGLOBIN [id number] 12:28:44 Test Item Value Reference Range Interpretation Comments HEMOGLOBIN A1C (BEAKER) (test code = 5.3 % 4.3-6.1 368) [id number] 09:47:42 Test Item Value Reference Range Interpretation Comments PHOSPHORUS (BEAKER) 3.5 mg/dL 2.3-4.7 Specimen slightly (test code = 604) hemolyzed Second Watch Sergeant ID - PIAYA LBASIC METABOLIC [id number] 09:47:42 Test Item Value Reference Range Interpretation [...] S NOT APPLICABLE FOR DIALYSIS PATIEN TS. Second Watch Sergeant ID - PIAYA [id number] 09:47:41 Test Item Value Reference Range Interpretation Comments MAGNESIUM (BEAKER) 2.2 mg/dL 1.6-2.6 Specimen slightly (test code = 627) hemolyzed Second Watch Sergeant ID - PIAYA LC-REACTIVE [id number] 09:45:23 Test Item Value Reference Range Interpretation Comments C-REACTIVE PROTEIN (BEAKER) (test 3.67 mg/dL 0.00-0.50 H code = 676) Second Watch Sergeant AMADA PERAZA LCBC W/PLT COUNT & AUTO [id number] 09:23:38 Test Item Value Reference Range Interpretation [...] code = 2801) RAD, ABDOMEN/KUB, 1 VIEW [id number] 07:28:00Reason for exam:->NGT tube placementShould this be performed at the bedside?->Yes [facility] 1955 Sex: FFINAL REPORT RAD, ABDOMEN/KUB, 1 VIEW AP INDICATION: NGT tube placementCOMPARISON: None TECHNIQUE: Limited portable radiograph of the lower chest and upper abdomen was acquired for purposes of evaluating tube placement FINDINGS/IMPRESSION:NG side-port overlies the stomach Signed: Rory Grossman [facility] Verified Date/Time: 02/03/2021 07:28:00
[2021-04-04] MEDS ORDERED: NA CHLORIDE 0.9% 1,000 ML ONE (22:57)
[2021-04-04] MEDS ORDERED: FAMOTIDINE 20 MG/2 ML VIAL IV ONE (22:57)
[2021-04-04] MEDS ORDERED: MORPHINE 2 MG/ML SYR ONE (22:58)
[2021-04-04] MEDS ORDERED: ONDANSETRON 4 MG/2 ML VIAL ONE (22:58)
[2021-04-04 23:07] LABS: Protime INR 0.88
[2021-04-04 23:11] LABS: Absolute Lymphocytes (CBC) 1.9 K/uL (0.7-4.9); Hematocrit 40.5 % (36.0-45.0); Lymphocytes % 16.9 % (15.3-44.8); MPV 7.4 fL (7.6-11.3); RBC Red Blood Cell Count 4.49 M/uL (3.86-4.86)
[2021-04-04 23:20] LABS: ALT/SGPT 22 U/L (12-78); AST/SGOT 11 U/L (15-37); Albumin 2.9 g/dL (3.4-5.0); Alkaline Phosphatase 93 U/L (45-117); BUN Blood Urea Nitrogen 19 mg/dL (7-18); Bicarbonate 28 mmol/L (21-32); Bilirubin Direct < 0.1 mg/dL (0-0.2); Bilirubin Total 0.3 mg/dL (0.2-1.0); Glucose Level 154 mg/dL (74-106); Lipase 95 U/L (73-393); NT PRO-BNP 196 pg/mL (<125); Potassium 3.6 mmol/L (3.5-5.1); Protein, Total 6.6 g/dL (6.4-8.2); Sodium Level 142 mmol/L (136-145)
[2021-04-05] MEDS ORDERED: PIPERACIL/TAZO 3.375 GM VIAL IV ONE (00:45)
[2021-04-05] MEDS ORDERED: NA CHLORIDE 0.9% 100 ML IV ONE (00:45)
--- NOTE | 2021-04-05 00:45 | ER ---
Nurse's Notes [facility] Name: Kindra Novoa Age: 65 yrs Sex: Female : 1955 Arrival Date: 04/04/2021 Time: 20:34 Bed 18 Private MD: Diagnosis: Nausea;Obesity due to excess calories;Other intestinal obstruction-small bowel;Crohn's disease, unspecified, without complications;Other cholelithiasis without obstruction Presentation: 04/04 20:50 Chief complaint: Patient states: Was eating crab and potatoes and a little while later ll3 started having nausea and abdominal pain. Coronavirus screen: Vaccine status: Patient reports being unvaccinated. Ebola Screen: No symptoms or risks identified at this time. Initial Sepsis Screen: Does the patient meet any 2 criteria? No. Patient's initial sepsis screen is negative. Does the patient have a suspected source of infection? No. Patient's initial sepsis screen is negative. Risk Assessment: Do you want to hurt yourself or someone else? Patient reports no desire to harm self or others. Onset of symptoms was April 04, 2021 at 19:00. 20:50 Method Of Arrival: Wheelchair ll3 20:50 Acuity: KAROL 3 ll3 Triage Assessment: 20:54 General: Appears comfortable, Behavior is cooperative, crying, fussy, Moaning . Pain: 3 Complains of pain in epigastric area Pain currently is 10 out of 10 on a pain scale. Quality of pain is described as pressure, Pain began 7 PM. Neuro: Level of Consciousness is awake, alert, obeys commands, Oriented to person, place, time, situation. Respiratory: Respiratory effort is even, unlabored, Respiratory pattern is regular, symmetrical. GI: Abdomen is round Reports upper abdominal pain, epigastric pain, nausea. Derm: Skin is pink, warm \\T\\ dry. Historical: - Allergies: 20:54 Ciprofloxacin; ll3 20:54 Latex, Natural Rubber; ll3 - Home Meds: 20:54 atorvastatin 10 mg oral tab [Active]; bupropion HCl 75 mg Oral tab [Active]; ll3 hyoscyamine sulfate 0.125 mg oral tab [Active]; metoprolol tartrate 50 mg Oral tab [Active]; ondansetron HCl 4 mg Oral tab [Active]; sertraline 100 mg oral tab [Active]; - PMHx: 20:54 Colitis; Crohn's Disease; Depression; Hypertension; Hypothyroidism; Insulin Resistance; ll3 - Immunization history:: Client reports having NOT received the Covid vaccine. - Social history:: Smoking status: Patient denies any tobacco usage or history of. - Family history:: not pertinent. Screenin/18 02:24 Abuse screen: Denies threats or abuse. Nutritional screening: No deficits noted. al4 Tuberculosis screening: No symptoms or risk factors identified. Fall Risk No fall in past 12 months (0 pts). IV access (20 points). Ambulatory Aid- None/Bed Rest/Nurse Assist (0 pts). Gait- Normal/Bed Rest/Wheelchair (0 pts) Mental Status- Oriented to own ability (0 pts). Total Ferrell Fall Scale indicates No Risk (0-24 pts). Assessment: 04/04 23:17 General: Appears in no apparent distress. uncomfortable, Behavior is calm, cooperative, al4 patient reports upper abdominal pain on both sides that started yesterday. patient states "this is my chrons acting up" and is at bedside. Pain: Complains of pain in abdomen Pain currently is 10 out of 10 on a pain scale. Neuro: Level of Consciousness is awake, alert, obeys commands, Oriented to person, place, time, situation. Cardiovascular: Capillary refill < 3 seconds Patient's skin is warm and dry. Respiratory: Airway is patent Respiratory effort is even, unlabored, Respiratory pattern is regular, symmetrical. GI: Abdomen is round Bowel sounds present X 4 quads. Reports upper abdominal pain, Patient currently denies diarrhea, nausea, vomiting. : Denies burning with urination, urinary frequency. EENT: No signs and/or symptoms were reported regarding the EENT system. Derm: No signs and/or symptoms reported regarding the dermatologic system. Musculoskeletal: Range of motion: intact in all extremities. 04/05 00:30 Reassessment: Patient is alert, oriented x 3, equal unlabored respirations, skin al4 warm/dry/pink. 01:33 Reassessment: Patient is alert, oriented x 3, equal unlabored respirations, skin al4 warm/dry/pink. Patient denies pain at this time. 02:23 Reassessment: patient ambulated to restroom. alert and oriented. . al4 02:25 Reassessment: called lab and they confirmed they have the covid test for patient. al4 03:07 Reassessment: Patient is alert, oriented x 3, equal unlabored respirations, skin al4 warm/dry/pink. Vital Signs: 04/04 20:50 BP 138 / 84; Pulse 75; Resp 19; Temp 97.7(TE); Pulse Ox 98% on R/A; Weight 108.86 kg ll3 (R); Height 5 ft. 1 in. (154.94 cm) (R); Pain 10/10; 23:00 BP 139 / 73; Pulse 62; Resp 18; Pulse Ox 98% on R/A; Pain 10/10; al4 04/05 01:19 BP 101 / 47; Pulse 63; Resp 17; Pulse Ox 95% on R/A; al4 02:15 BP 118 / 58; Pulse 60; Resp 18 S; Pulse Ox 98% on R/A; al4 02:45 BP 131 / 72; Pulse 62; Resp 18 S; Pulse Ox 95% on R/A; al4 04/04 20:50 Body Mass Index 45.35 (108.86 kg, 154.94 cm) ll3 ED Course: 04/04 20:34 Patient arrived in ED. wm 20:54 Triage completed. ll3 20:54 Arm band placed on. ll3 22:15 Esa Swain MD is Attending Physician. mingo 22:24 Jigar Sharma is Primary Nurse. al4 22:41 US Abdomen Limited In Process Unspecified. EDMS 22:48 XRAY Chest (1 view) In Process Unspecified. EDMS 22:55 Inserted saline lock: 20 gauge in left antecubital area, using aseptic technique. Blood ds4 collected. 23:53 CT Abd/Pelvis - IV Contrast Only In Process Unspecified. EDMS 04/05 00:41 Santos Avina MD is Hospitalizing Provider. mingo 00:51 SARS-COV-2 RT PCR (Document "Date of Onset" if Symptomatic) Sent. al4 02:23 SARS-COV-2 RT PCR (Document "Date of Onset" if Symptomatic) Sent. al4 02:25 Patient has correct armband on for positive identification. Bed in low position. Call al4 light in reach. Side rails up X2. 03:10 No provider procedures requiring assistance completed. Patient admitted, IV remains in al4 place. Administered Medications: 04/04 23:17 Drug: NS 0.9% 1000 ml Route: IV; Rate: 125 ml/hr; Site: left antecubital; al4 23:17 Drug: Pepcid (famotidine) 20 mg Route: IVP; Site: left antecubital; al4 04/05 00:00 Follow up: Response: No adverse reaction al4 04/04 23:17 Drug: morphine 2 mg Route: IVP; Site: left antecubital; al4 04/05 00:00 Follow up: Response: No adverse reaction; RASS: Alert and Calm (0) al4 04/04 23:17 Drug: Zofran (Ondansetron) 4 mg Route: IVP; Site: left antecubital; al4 04/05 00:00 Follow up: Response: No adverse reaction al4 00:47 Drug: Zosyn (piperacillin-tazobactam) 3.375 grams Route: IVPB; Infused Over: 60 mins; al4 Site: left antecubital; 02:23 Follow up: Response: No adverse reaction; IV Status: Completed infusion al4 01:19 Drug: SOLU-Medrol (methylPrednisoLONE) 125 mg {Note: given by CHRISTIANO Malagon.} Route: IVP; al4 Site: left antecubital; 02:23 Follow up: Response: No adverse reaction al4 02:22 Drug: morphine 2 mg Route: IVP; Site: left antecubital; al4 02:54 Follow up: Response: No adverse reaction; RASS: Alert and Calm (0) al4 Outcome: 00:45 Decision to Hospitalize by Provider. mingo 03:10 Admitted to Med/surg room 225, Report called to CHRISTIANO Cortes al4 03:10 Condition: stable 03:10 Instructed on the need for admit, Demonstrated understanding of instructions. 03:25 Patient left the ED. al4 Signatures: Dispatcher [employer] EDMS Esa Swain MD MD cha Swanson, Donovan ds4 Jocelyn Saab Lyn[place], RN RN ll3 Jigar Sharma al4 Corrections: (The following items were deleted from the chart) 04/04 20:58 20:54 Allergies: buspirone; ll3 ll3
--- NOTE | 2021-04-05 00:45 | EDPHYS ---
Physician Documentation [facility] Name: Kindra Novoa Age: 65 yrs Sex: Female : 1955 Arrival Date: 04/04/2021 Time: 20:34 Bed 18 Private MD: ED Physician Esa Swain HPI: 04/05 00:35 This 65 yrs old Female presents to ER via Wheelchair with complaints of mingo Epigastric Pain. 00:35 The patient presents with abdominal pain in the epigastric area, in the upper abdomen, mingo abdominal distention in the upper abdomen, in the lower abdomen. Onset: The symptoms/episode began/occurred 1 day(s) ago. The patient presents to the emergency department with nausea, abdominal pain, of the right upper quadrant and left upper quadrant, described as crampy. Onset: The symptoms/episode began/occurred today. Possible causes: unknown. The symptoms are aggravated by nothing. The symptoms are alleviated by remaining still. Associated signs and symptoms: Pertinent positives: abdominal pain, nausea. The symptoms do not radiate. Historical: - Allergies: 04/04 20:54 Ciprofloxacin; ll3 20:54 Latex, Natural Rubber; ll3 - Home Meds: 20:54 atorvastatin 10 mg oral tab [Active]; bupropion HCl 75 mg Oral tab [Active]; ll3 hyoscyamine sulfate 0.125 mg oral tab [Active]; metoprolol tartrate 50 mg Oral tab [Active]; ondansetron HCl 4 mg Oral tab [Active]; sertraline 100 mg oral tab [Active]; - PMHx: 20:54 Colitis; Crohn's Disease; Depression; Hypertension; Hypothyroidism; Insulin Resistance; ll3 - Immunization history:: Client reports having NOT received the Covid vaccine. - Social history:: Smoking status: Patient denies any tobacco usage or history of. - Family history:: not pertinent. ROS: 04/05 00:35 Constitutional: Negative for fever, chills, and weight loss, Eyes: Negative for injury, mingo pain, redness, and discharge, ENT: Negative for injury, pain, and discharge, Neck: Negative for injury, pain, and swelling, Cardiovascular: Negative for chest pain, palpitations, and edema, Respiratory: Negative for shortness of breath, cough, wheezing, and pleuritic chest pain, Back: Negative for injury and pain, : Negative for injury, bleeding, discharge, and swelling, MS/Extremity: Negative for injury and deformity, Skin: Negative for injury, rash, and discoloration, Neuro: Negative for headache, weakness, numbness, tingling, and seizure, Psych: Negative for depression, anxiety, suicide ideation, homicidal ideation, and hallucinations, Allergy/Immunology: Negative for hives, rash, and allergies, Endocrine: Negative for neck swelling, polydipsia, polyuria, polyphagia, and marked weight changes, Hematologic/Lymphatic: Negative for swollen nodes, abnormal bleeding, and unusual bruising. Abdomen/GI: Positive for abdominal pain, nausea, of the right upper quadrant and left upper quadrant. Exam: 00:35 Constitutional: This is a well developed, well nourished patient who is awake, alert, mingo and in no acute distress. Head/Face: Normocephalic, atraumatic. Eyes: Pupils equal round and reactive to light, extra-ocular motions intact. Lids and lashes normal. Conjunctiva and sclera are non-icteric and not injected. Cornea within normal limits. Periorbital areas with no swelling, redness, or edema. ENT: Nares patent. No nasal discharge, no septal abnormalities noted. Tympanic membranes are normal and external auditory canals are clear. Oropharynx with no redness, swelling, or masses, exudates, or evidence of obstruction, uvula midline. Mucous membranes moist. Neck: Trachea midline, no thyromegaly or masses palpated, and no cervical lymphadenopathy. Supple, full range of motion without nuchal rigidity, or vertebral point tenderness. No Meningismus. Chest/axilla: Normal chest wall appearance and motion. Nontender with no deformity. No lesions are appreciated. Cardiovascular: Regular rate and rhythm with a normal S1 and S2. No gallops, murmurs, or rubs. Normal PMI, no JVD. No pulse deficits. Respiratory: Lungs have equal breath sounds bilaterally, clear to auscultation and percussion. No rales, rhonchi or wheezes noted. No increased work of breathing, no retractions or nasal flaring. Back: No spinal tenderness. No costovertebral tenderness. Full range of motion. Female : Normal external genitalia. Skin: Warm, dry with normal turgor. Normal color with no rashes, no lesions, and no evidence of cellulitis. MS/ Extremity: Pulses equal, no cyanosis. Neurovascular intact. Full, normal range of motion. Neuro: Awake and alert, GCS 15, oriented to person, place, time, and situation. Cranial nerves II-XII grossly intact. Motor strength 5/5 in all extremities. Sensory grossly intact. Cerebellar exam normal. Normal gait. Psych: Awake, alert, with orientation to person, place and time. Behavior, mood, and affect are within normal limits. 00:35 Abdomen/GI: Inspection: abdomen appears normal, Bowel sounds: active, Palpation: mild abdominal tenderness, in all quadrants, Liver: no appreciated palpable abnormalities, Hernia: not appreciated. 00:45 ECG was reviewed by the Attending Physician. [facility] Vital Signs: 04/04 20:50 BP 138 / 84; Pulse 75; Resp 19; Temp 97.7(TE); Pulse Ox 98% on R/A; Weight 108.86 kg ll3 (R); Height 5 ft. 1 in. (154.94 cm) (R); Pain 10/10; 23:00 BP 139 / 73; Pulse 62; Resp 18; Pulse Ox 98% on R/A; Pain 10/10; al4 18 01:19 BP 101 / 47; Pulse 63; Resp 17; Pulse Ox 95% on R/A; al4 02:15 BP 118 / 58; Pulse 60; Resp 18 S; Pulse Ox 98% on R/A; al4 02:45 BP 131 / 72; Pulse 62; Resp 18 S; Pulse Ox 95% on R/A; al4 04/04 20:50 Body Mass Index 45.35 (108.86 kg, 154.94 cm) ll3 MDM: 04/04 22:15 Patient medically screened. [facility] 04/05 00:39 Differential diagnosis: Nonspecific abd pain, cholecystitis, pancreatitis, mingo appendicitis, diverticulitis, viral gastroenteritis, gastroenteritis, cholecystitis, Cholelithiasis, diverticulitis, gastritis, non-specific abd pain, Peptic Ulcer Disease, Peritonitis, Pyelonephritis, Ureterolithiasis, urinary tract infection. Data reviewed: vital signs, nurses notes, lab test result(s), EKG, radiologic studies, CT scan, plain films, ultrasound. Data interpreted: mixing machine attendant: rate is 62 beats/min, rhythm is regular, Pulse oximetry: on room air is 98 %. Test interpretation: by ED physician or midlevel provider: ECG, plain radiologic studies. Counseling: I had a detailed discussion with the patient and/or guardian regarding: the historical points, exam findings, and any diagnostic results supporting the discharge/admit diagnosis, lab results, radiology results, the need for further work-up and treatment in the hospital. 04/04 21: Order name: Basic Metabolic Panel; Complete Time: 00:27 04/04: Order name: CBC with Diff; Complete Time: 00:09 04/04: Order name: LFT's; Complete Time: 00:27 04/04 22: Order name: Magnesium; Complete Time: 00:27 04/04: Order name: NT PRO-BNP; Complete Time: 00:27 04/04: Order name: PT-INR; Complete Time: 00:27 04/04: Order name: Troponin HS; Complete Time: 00:27 04/04 22:17 Order name: XRAY Chest (1 view) 04/04 22: Order name: Lipase; Complete Time: 00:27 04/04 22:17 Order name: US Abdomen Limited 04/04 22:17 Order name: CT Abd/Pelvis - IV Contrast Only 04/05 00:47 Order name: SARS-COV-2 RT PCR (Document "Date of Onset" if Symptomatic) 04/04: Order name: EKG; Complete Time: 22:18 04/04 22: Order name: Cardiac monitoring; Complete Time: 22:55 04/04: Order name: EKG - Nurse/Tech; Complete Time: 22:55 04/04: Order name: IV Saline Lock; Complete Time: 22:55 04/04 22: Order name: Labs collected and sent; Complete Time: 22:55 04/04: Order name: O2 Per Protocol; Complete Time: 22:55 04/04: Order name: O2 Sat Monitoring; Complete Time: 22:55 04/05 00:27 Order name: NPO; Complete Time: 00:51 la1 EC:45 Rate is 64 beats/min. Rhythm is regular. QRS [place] is Normal. [place] interval is normal. QRS mingo interval is normal. QT interval is normal. No Q waves. T waves are Normal. No ST changes noted. Clinical impression: No evidence of ischemia. Interpreted by me. Reviewed by me. Administered Medications: 04/04 23:17 Drug: NS 0.9% 1000 ml Route: IV; Rate: 125 ml/hr; Site: left antecubital; al4 23:17 Drug: Pepcid (famotidine) 20 mg Route: IVP; Site: left antecubital; al4 04/05 00:00 Follow up: Response: No adverse reaction al4 04/04 23:17 Drug: morphine 2 mg Route: IVP; Site: left antecubital; al4 04/05 00:00 Follow up: Response: No adverse reaction; RASS: Alert and Calm (0) al4 04/04 23:17 Drug: Zofran (Ondansetron) 4 mg Route: IVP; Site: left antecubital; al4 04/05 00:00 Follow up: Response: No adverse reaction al4 00:47 Drug: Zosyn (piperacillin-tazobactam) 3.375 grams Route: IVPB; Infused Over: 60 mins; al4 Site: left antecubital; 02:23 Follow up: Response: No adverse reaction; IV Status: Completed infusion al4 01:19 Drug: SOLU-Medrol (methylPrednisoLONE) 125 mg {Note: given by CHRISTIANO Malagon.} Route: IVP; al4 Site: left antecubital; 02:23 Follow up: Response: No adverse reaction al4 02:22 Drug: morphine 2 mg Route: IVP; Site: left antecubital; al4 02:54 Follow up: Response: No adverse reaction; RASS: Alert and Calm (0) al4 Disposition Summary: 04/05/21 00:45 Hospitalization Ordered Hospitalization Status: Inpatient Admission mingo Provider: Santos Avina cha Location: Telemetry/MedSurg (Inpatient) mingo Condition: Fair mingo Problem: new mingo Symptoms: have improved mingo Bed/Room Type: Standard mingo Room Assignment: 225(04/05/21 02:49) cg Diagnosis - Nausea mingo - Obesity due to excess calories mingo - Other intestinal obstruction - small bowel mingo - Crohn's disease, unspecified, without complications mingo - Other cholelithiasis without obstruction mingo Forms: - Medication Reconciliation Form mingo - SBAR form mingo Signatures: Dispatcher [employer] EDEsa Vanegas MD MD cha Attema, Lee, LADLE LINER-C [id number] Elida Arriola RN RN Vesna Clark RN RN 3 Jigar Sharma Corrections: (The following items were deleted from the chart) 04/04 20:58 20:54 Allergies: buspirone; ll3 ll3 04/05 02:49 00:45 mingo
--- NOTE | 2021-04-05 01:00 | P.HP ---
Certification for Inpatient Patient admitted to: Inpatient With expected LOS: >2 Midnights Patient will require the following post-hospital care: None Practitioner: I am a practitioner with admitting privileges, knowledge of patient current condition, hospital course, and medical plan of care. Services: Services provided to patient in accordance with Admission requirements found in Title 42 Section 412.3 of the Code of Federal Regulations Patient History Date of Service: 04/05/21 Reason for admission: SBO History of Present Illness: 65-year-old female with history of Crohn's, hypertension, hypothyroidism and multiple small bowel obstructions in the past presents emergency department for epigastric pain. Patient reports that her last bowel movement was yesterday around noon and normal reports some nausea today after eating potato and crab followed by severe epigastric pain which led her to the emergency department. Patient was evaluated in the emergency department her labs were significant for white blood cell count 1.3 GFR 42 glucose 154 BNP [address] abdomen pelvis demonstrates small bowel obstruction with transition zone in the right lower quadrant as well as irregular scarring in the region of the terminal ileum with adherent small bowel loops focal narrowing and small bowel strictures with possible fistula formation between the loops of small bowel in the proximal colon these findings suggest changes from Crohn's disease, these findings are similar when compared to previous studies. also noted cholelithiasis with gallbladder wall thickening. Ultrasound of the gallbladder reviewed again cholelithiasis with gallbladder wall thickening normal size CBD no pericholecystic fluid. Patient was started on Zosyn given a dose of IV steroids in the ER, ED provider wishes to admit for further evaluation and management. Allergies ciprofloxacin Allergy (Verified 07/12/20 22:34) Itching/Hives/Rash latex [Latex] Allergy (Verified 05/12/11 07:41) Itching/Hives/Rash Latex, Natural Rubber Allergy (Verified 06/07/20 05:52) Unknown metronidazole Allergy (Verified 07/12/20 22:34) Itching/Hives/Rash buspirone Adverse Reaction (Verified 07/12/20 22:35) Nausea/Vomiting Home Medications: Bupropion HCl [Wellbutrin] 75 mg PO BEDTIME 07/27/20 Cholecalciferol (Vitamin D3) [Vitamin D3] 1,000 unit PO DAILY 07/27/20 Levothyroxine Sodium 25 mcg PO DAILY 07/27/20 Sertraline [Zoloft*] 150 mg PO DAILY 07/27/20 Adalimumab [Humira 40 MG/0.8 ML*] 40 mg SQ Q14D 10/28/20 Mesalamine [Pentasa*] 500 mg PO BID 10/28/20 buPROPion HCL [Bupropion HCl] 150 mg PO DAILY 12/10/20 predniSONE [Prednisone*] 20 mg PO DAILY 28 Days #35 tab 01/11/21 Amoxicillin/Potassium Clav [Augmentin 500-125 Tablet] 1 each PO BID #14 tablet 03/08/21 Lactobacillus Acidophilus [Acidophilus Lactobacilli] 1 each PO TID #90 capsule 03/08/21 Ondansetron [Zofran (Odt)*] 4 mg PO Q6H PRN #10 tab 03/08/21 predniSONE [Prednisone*] 20 mg PO SEECOM #21 tab 03/08/21 - Past Medical/Surgical History Diabetic: No -: HTN -: Prediabetes -: Hypothyroidism -: Depression -: Recurrent SBO -: GERD -: Bowel obstruction -: Psychosocial/ Personal History: Patient is . - Family History Father -: Cancer Mother -: Heart disease - Social History Smoking Status: Never smoker Alcohol use: No CD- Drugs: No Caffeine use: No Place of Residence: Home Review of Systems 10-point ROS is otherwise unremarkable Gastrointestinal: Nausea, Abdominal Pain Physical Examination - Physical Exam General: Alert, In no apparent distress, Oriented x3, Obese HEENT: Atraumatic, PERRLA, Mucous membr. moist/pink, EOMI, Sclerae nonicteric Neck: Supple, 2+ carotid pulse no bruit, No LAD, Without JVD or thyroid abnormality Respiratory: Clear to auscultation bilaterally, Normal air movement Cardiovascular: Regular rate/rhythm, Normal S1 S2 Gastrointestinal: Normal bowel sounds, Tenderness (Mild generalized abdominal tenderness slightly worse in right upper quadrant) Musculoskeletal: No tenderness Integumentary: No rashes Neurological: Normal speech, Normal strength at 5/5 x4 extr, Normal tone, Normal affect Lymphatics: No axilla or inguinal lymphadenopathy - Studies Laboratory Data (last 24 hrs) 04/04/21 22:41: PT 10.1, INR 0.88 04/04/21 22:41: WBC 11.30 H, Hgb 13.2, Hct 40.5, Plt Count 342 04/04/21 22:41: Sodium 142, Potassium 3.6, BUN 19 H, Creatinine 1.28, Glucose 154 H, Magnesium 2.0, Total Bilirubin 0.3, AST 11 L, ALT 22, Alkaline Phosphatase 93, Lipase 95 Assessment and Plan - Plan Assessment: Recurrent small bowel obstruction complicated with history of Crohn's Hypertension Hyperlipidemia Hypothyroidism Plan: Recurrent small bowel obstruction complicated with history of Crohn's: N.p.o., IVF, IV Zosyn, IV steroids, as needed pain medications and antiemetics, KUB in the morning daily. General surgery consulted, case discussed. Hypertension: As needed IV antihypertensive until patient is tolerating p.o. Hyperlipidemia: Hold oral medications at this time restart when appropriate Hypothyroidism: Hold oral medications at this time restart when appropriate DVT PPX: SCD Code status: Full Discharge Plan: Home Plan to discharge in: 48 Hours - Advance Directives Does patient have a Living Will: No Does patient have a Durable POA for Healthcare: No - Code Status/Comfort Care Code Status Assessed: Yes (Full code) Critical Care: No Time Spent Managing Pts Care (In Minutes): 55
[2021-04-05] MEDS ORDERED: METHYLPREDNISOLONE 125 MG INJ ONE (01:13)
[2021-04-05] MEDS ORDERED: MORPHINE 2 MG/ML SYR ONE (02:19)
[2021-04-05] MEDS: PIPER TAZO 3.375 GM in NA CHLORIDE 0.9% 100 ML IV SCH ×3 (03:28→18:16)
[2021-04-05] MEDS ORDERED: HYDRALAZINE HCL 20 MG/ML VIAL IV PRN (03:28)
[2021-04-05] MEDS: METHYLPREDNISOLONE 40 MG INJ IV SCH ×3 (03:28→18:17)
[2021-04-05] MEDS: MORPHINE 2 MG/ML SYR IV PRN ×4 (04:05→22:21)
[2021-04-05] MEDS: ONDANSETRON 4 MG/2 ML VIAL IV PRN ×4 (04:05→22:21)
[2021-04-05] MEDS: D5 0.45 NS 1,000 ML IV SCH ×4 (04:06→23:24)
[2021-04-05 05:01] VITALS: BMI 44.9
[2021-04-05 05:26] LABS: Hematocrit 38.3 % (36.0-45.0); Lymphocytes % 12.6 % (15.3-44.8); MPV 7.2 fL (7.6-11.3); RBC Red Blood Cell Count 4.27 M/uL (3.86-4.86)
[2021-04-05 05:43] LABS: Albumin 2.8 g/dL (3.4-5.0); Bilirubin Total 0.3 mg/dL (0.2-1.0); Potassium 3.8 mmol/L (3.5-5.1); Protein, Total 6.3 g/dL (6.4-8.2)
[2021-04-05 05:58] LABS: Blood Morphology Comment NOT SEEN (NOT SEEN); Platelet Estimate ADEQ; White Blood Cell Scan OK (OK)
[2021-04-05 06:20] LABS: Urine Appearance CLEAR (Clear); Urine Bilirubin NEGATIVE (Negative); Urine Blood NEGATIVE (Negative); Urine Color YELLOW (Yellow); Urine Glucose NEGATIVE (Negative); Urine Protein NEGATIVE (Negative); Urine Specific Gravity >=1.030 (1.005-1.030); Urine Urobilinogen 0.2 mg/dL (0.2-1.0); Urine pH 5.5 (5.0-7.0)
[2021-04-05 06:23] LABS: Urine Microscopic Reflex NO UMIC
--- NOTE | 2021-04-05 07:50 | RAD REPORT ---
EXAM DESCRIPTION: RAD - Abdomen 1 View (KUB) - 04/05/2021 5:35 am CLINICAL HISTORY: eval SBO COMPARISON: Abdomen 1 View (KUB) dated 01/10/2021; Abdomen 1 View (KUB) dated 12/12/2020; Abdomen 1 View (KUB) dated 12/11/2020; Abdomen 1 View (KUB) dated 12/11/2020; Abdomen Pelvis W Contrast dated 04/04/2021 FINDINGS: Dilated small bowel centrally. Less gas is seen distally within the colon. No acute osseou s abnormality.Visualized lungs are unremarkable.No abnormal calcifications. IMPRESSION: Findings remain consistent with mechanical small-bowel obstruction. No improvement noted .
--- NOTE | 2021-04-05 07:52 | RAD REPORT ---
EXAM DESCRIPTION: RAD - Chest Single View - 04/04/2021 10:48 pm CLINICAL HISTORY: ABDOMINAL DISTENTION COMPARISON: Abdomen 1 View (KUB) dated 01/10/2021; Chest Single View dated 01/08/2021; Abdomen 1 Vie w (KUB) dated 12/12/2020; Abdomen 1 View (KUB) dated 12/11/2020 FINDINGS: Lines: None. Lungs: No evidence of edema or pneumonia. Pleural: No significant pleural effusions or pneumothorax. Cardiac: The heart size is within normal limits. Bones: No acute fractures. Other: IMPRESSION: No acute cardiopulmonary disease.
[2021-04-05] MEDS ORDERED: KCL 20 MEQ/100 mL IVPB 20 MEQ/100 ML BAG IV SCH (09:00)
--- NOTE | 2021-04-05 11:34 | P.PN ---
Subjective Date of Service: 04/05/21 Chief Complaint: SBO Subjective: No new changes (No nausea, states no bowel movement intact or gas passage yet) Physical Examination - Vital Signs Temperature: 97.9 F Blood Pressure: 95/50 Pulse: 59 Respirations: 20 Pulse Ox (%): 95 - Studies Laboratory Data (last 24 hrs) 04/04/21 22:41: PT 10.1, INR 0.88 04/04/21 22:41: WBC 11.30 H, Hgb 13.2, Hct 40.5, Plt Count 342 04/04/21 22:41: Sodium 142, Potassium 3.6, BUN 19 H, Creatinine 1.28, Glucose 154 H, Magnesium 2.0, Total Bilirubin 0.3, AST 11 L, ALT 22, Alkaline Phosphatase 93, Lipase 95 Assessment And Plan Physician Review: Patient Assessed, Agree with Above Assessment and Plan Physician Review Additional Text: 04/05/21 11:32 Physical examination Generalobese elderly female, calm HEENT pupil equal reactive to extraocular motor movement intact, pink conjunctiva Neckno JVD no carotid bruit Respiratorygood air entry bilaterally no crepitation CardiovascularS1-S2 GIfull abdomen, mild right upper quadrant tenderness, + hyperactive Extremityno pedal edema Neuroalert oriented Assessment: Recurrent small bowel obstruction complicated with history of Crohn's Hypertension Hyperlipidemia Hypothyroidism Plan: Recurrent small bowel obstruction complicated with history of Crohn's: Extensive open small bowel obstruction with adhesions of the lower intestine and possible fistula in the colon noted on CT. Follow general surgery KUB today and daily Continue n.p.o. status Continue empiric antibiotics with Zosyn since likely due to chronic Crohn's enteritis with obstruction Hypokalemiaresolved Hypertension: As needed IV antihypertensive until patient is tolerating p.o. Hyperlipidemia: Hold oral medications at this time restart when appropriate Hypothyroidism: Hold oral medications at this time restart when appropriate DVT PPX: SCD Code status: Full
--- NOTE | 2021-04-05 12:55 | RAD REPORT ---
EXAM DESCRIPTION: US - Abdomen Exam Limited - 04/04/2021 11:01 pm CLINICAL HISTORY: 65 years, Female, ABD PAIN COMPARISON: Previous CT scan performed 03/07/2021. TECHNIQUE: Utilizing a curved array transducer, real-time ultrasound evaluation of the abdominal vis cera was performed. Color Doppler imaging was used to assess vascular flow. FINDINGS: The liver demonstrate to be within normal limits. There is normal portal flow. There is lack of normal visualization of the gallbladder with the presence of a several echogenic str uctures with posterior shadowing corresponding to cholelithiasis. There is global thickening measurin g 5.8 mm. No pericholecystic fluid. The common bile duct measures 4.0 mm. No intra or extrahepati c biliary duct dilatation was identified. There is no evidence for significant free fluid within the upper abdomen. The right kidney, liver, pancreas were fully assessed. IMPRESSION: CHOLELITHIASIS. GALLBLADDER WALL THICKENING. NORMAL SIZE COMMON BILE DUCT. Electronically signed by: David Estrella MD 04/04/2021 10:54 PM PROGRAM PRODUCTION SPECIALIST Due to temporary technical issues with the PACS/Fluency reporting system, reports are being signed by the in house radiologist without review as a courtesy to ensure prompt reporting. The interpreting r adiologist is fully responsible for the content of the report.
--- NOTE | 2021-04-05 13:04 | EKG ---
Test Date: 2021-04-04 Test Time: 22:53:28 Dehydrating Press Operator: AGUSTIN MEASUREMENT RESULTS: Intervals: Rate: 64 CT: 142 QRSD: 80 QT: 394 QTc: 406 [place]: P: 29 CT: 142 QRS: 14 T: 108 INTERPRETIVE STATEMENTS: Normal sinus rhythm Cannot rule out Anterior infarct, age undetermined Abnormal ECG Compared to ECG 02/02/2021 23:13:31 Myocardial infarct finding now present Electronically Signed On 04-05-21 13:02:51 CIRCUIT BOARD INSPECTOR by Curt Hanley
--- NOTE | 2021-04-05 13:50 | RAD REPORT ---
EXAM DESCRIPTION: CT - Abdomen Pelvis W Contrast - 04/05/2021 6:43 am CLINICAL HISTORY: 65 years Female ABD PAIN COMPARISON: 03/07/2021. TECHNIQUE: Contiguous axial images obtained through the abdomen and pelvis following IV contrast. Re formatted images obtained. This exam was performed according to our department optimization program which includes automated exp osure control, adjustment of the mA and/or kv according to patient size and/or use of iterative recon struction technique. FINDINGS: Minimal atelectatic changes. The liver measures 19 cm in length. The spleen and pancreas appear unremarkable. No adrenal masses. 2.3 cm diameter right renal cyst. Probable 0.7 cm left renal angiomyolipoma. No hydronephrosis. There are probable stones in the gallbladder with mild gallbladder wall thickening. The appearance is similar compared to the prior study. No aneurysmal dilatation of the aorta. There are dilated loops of small bowel in the central abdomen measuring up to approximately 5.2 cm in diameter. There is a transition zone in the right lower quadrant. There appears to be irregular scar ring in the region of the terminal ileum with adherent small bowel loops, focal narrowing and small b owel structures with possible fistula formation between the loops of small bowel and the proximal col on. The findings suggest changes from Crohn's disease. The appearance of these findings is similar co mpared to the prior study. The appendix is not visualized. There is colonic diverticulosis most pro nounced in the sigmoid colon. No significant free pelvic fluid. Small fat-containing umbilical hernia. Degenerative changes in the lower lumbar spine. IMPRESSION: 1. There are dilated loops of small bowel in the central abdomen with a transition zon e in the right lower quadrant suggesting small bowel obstruction. 2. There appears to be irregular scarring in the region of the terminal ileum with adherent small b owel loops, focal narrowing and small bowel strictures with possible fistula formation between the lo ops of small bowel and the proximal colon. The findings suggest changes from Crohn's disease. 3. Cholelithiasis with mild gallbladder wall thickening. 4. The appearance of the above findings is similar compared to the prior study. Electronically signed by: Laith Quick MD 04/05/2021 12:18 AM WEIGHT REDUCTION SPECIALIST Due to temporary technical issues with the PACS/Fluency reporting system, reports are being signed by the in house radiologist without review as a courtesy to ensure prompt reporting. The interpreting r zachogist is fully responsible for the content of the report.
--- NOTE | 2021-04-05 14:15 | CON ---
Date of Consultation: 04/05/2021 Brief History Of Present Illness: Patient is a 65-year-old female, known to me from previous admissi ons with a history of Crohn disease and multiple bowel obstructions secondary to Crohn's inflammatory process, resolved with nonoperative management with pulse steroid treatment, who presents with simil ar complaints before and a similar type obstructive pattern, which she recognized at this point. She has been admitted. She says in the range of 9 times to different facilities, I know her well. Jarrod luis managed her nonoperatively. She is currently being managed with a physician respooler osman Pichardo, due to start Remicade. She is no longer taking Humira. She presents with the same type o f symptoms, nausea, no vomiting, abdominal pain predominantly. She has been having gas and bowel move ments as of yesterday. She continues to pass gas as of today. Her abdominal pain is significantly i mproved at this point. She has been given steroids overnight, but she states this is similar to all of her previous episodes. Past Medical History: Significant for hypertension, diabetes, hypothyroidism, depression, bowel obst ructions, GERD, Crohn disease. Past Surgical History: Includes . Allergies: CIPRO, LATEX, FLAGYL, BUSPAR. Home Medications: Include Wellbutrin, vitamin D, levothyroxine, Zoloft, Humira, Pentasa, bupropion, prednisone, Augmentin, Zofran. Family History: Significant for cancer in the father and heart disease in the mother. Social History: She denies smoking, alcohol, recreational drug use. Review of Systems: 10-point review of systems other than HPI, denies. Physical Examination: At the time of my examination: General: She is awake, alert, oriented. Psychiatric: She is appropriate, conversive. HEENT: She is normocephalic. Sclerae icteric. Mucous membranes moist. Oropharynx is clear. Neck: Supple without JVD. Chest: Normal expansion and excursion. Cardiovascular: Regular rhythm. Pulmonary: Clear to auscultation bilaterally. Abdomen: Soft, nontender at this point, nondistended. No rebound. No guarding. No focal peritonit is. Extremities: No clubbing, cyanosis, or edema. Skin: Warm and dry. Her BMI is 45. Laboratory Data: Revealed a white blood cell count of 7.7, hemoglobin 12.7, hematocrit 38.3, platele t count is 299. Her neutrophils were 85.9. PT 10.1, INR 0.88. Sodium is 142, potassium 3.8, chlori de 108, carbon dioxide 29, BUN 17, creatinine 0.9, glucose was 161. Her UA was negative. Her COVID was negative. She had imaging performed, which included a CT of the abdomen and pelvis on 04/04, [facility] was read by the night radiologist. Official read is there are dilated loops of small bowel in the central abdomen with transition zone in the right lower quadrant suggesting small bowel obstruction, appears to be irregular, scarring in the region of the terminal ileum with adherent small bowel loop s, focal narrowing, and small bowel strictures with possible fistula formation between loops of small bowel in the proximal colon. The findings suggest changes of Crohn disease, cholelithiasis with mil d gallbladder wall thickening. The appearance of above is similar compared to the previous study. Assessment And Plan: This is a 65-year-old female, who comes in with a likely recurrent flare of her Crohn disease. 1.IV fluid hydration. 2.N.p.o. 3.Serial abdominal exams. 4.Steroid treatment. 5.Patient is due to follow up with her respooler as an outpatient regarding this. 6.Continue medical management. I explained. 7.the risks, benefits, and alternatives to the above-stated plan. Patient agrees to proceed as cielo cated. RODGER/ALIREZA Voice ID: [id number] Report ID: [id number]
[2021-04-06] MEDS: METHYLPREDNISOLONE 40 MG INJ IV SCH ×3 (00:01→18:51)
[2021-04-06] MEDS: PIPER TAZO 3.375 GM in NA CHLORIDE 0.9% 100 ML IV SCH ×3 (00:01→18:52)
[2021-04-06] MEDS: D5 0.45 NS 1,000 ML IV SCH ×3 (02:26→19:28)
[2021-04-06 05:46] LABS: Absolute Lymphocytes (CBC) 1.1 K/uL (0.7-4.9); Hematocrit 37.7 % (36.0-45.0); Lymphocytes % 13.6 % (15.3-44.8); MPV 7.3 fL (7.6-11.3)
[2021-04-06 06:12] LABS: Albumin 2.6 g/dL (3.4-5.0); Bilirubin Total 0.3 mg/dL (0.2-1.0); Potassium 3.6 mmol/L (3.5-5.1)
[2021-04-06] MEDS ORDERED: KCL 20 MEQ/100 mL IVPB 20 MEQ/100 ML BAG IV SCH (08:00)
--- NOTE | 2021-04-06 08:03 | RAD REPORT ---
EXAM DESCRIPTION: RAD - Abdomen 1 View (KUB) - 04/06/2021 6:54 am CLINICAL HISTORY: eval SBO COMPARISON: Abdomen 1 View (KUB) dated 04/05/2021; Abdomen 1 View (KUB) dated 01/10/2021 FINDINGS: Multiple prominent air-filled small bowel loops are present in the mid upper abdomen. Smal l bowel diameter has decreased since April 05. Colon remains decompressed. No free air or pneumato sis identifiable. No suspicious calcifications. IMPRESSION: Moderate improvement in the small bowel dilatation pattern since prior day imaging. No free air or pneumatosis.
[2021-04-06] MEDS: MORPHINE 2 MG/ML SYR IV PRN ×2 (10:14→18:51)
[2021-04-06] MEDS: ONDANSETRON 4 MG/2 ML VIAL IV PRN ×2 (10:15→18:51)
--- NOTE | 2021-04-06 12:51 | P.PN ---
Subjective Date of Service: 04/06/21 Chief Complaint: SBO Subjective: No new changes, No C/O voiced Physical Examination - Vital Signs Temperature: 98.0 F Blood Pressure: 131/63 Pulse: 58 Respirations: 17 Pulse Ox (%): 94 Assessment And Plan Physician Review: Patient Assessed, Agree with Above Assessment and Plan Physician Review Additional Text: 04/05/21 11:32 Physical examination Generalobese elderly female, calm HEENT pupil equal reactive to extraocular motor movement intact, pink conjunctiva Neckno JVD no carotid bruit Respiratorygood air entry bilaterally no crepitation CardiovascularS1-S2 GIfull abdomen, mild right upper quadrant tenderness, + hyperactive Extremityno pedal edema Neuroalert oriented Assessment: Recurrent small bowel obstruction complicated with history of Crohn's Hypertension Hyperlipidemia Hypothyroidism Plan: Recurrent small bowel obstruction complicated with history of Crohn's: KUB shows improving bowel obstruction Abdominal pain much improved Start full liquid diet and advance as tolerated today Extensive open small bowel obstruction with adhesions of the lower intestine and possible fistula in the colon noted on CT. Continue empiric antibiotics with Zosyn since likely due to chronic Crohn's enteritis with obstruction Hypokalemiaresolved Hypertension: As needed IV antihypertensive until patient is tolerating p.o. Hyperlipidemia: Hold oral medications Hypothyroidism: Resume Synthroid DVT PPX: SCD Code status: Full 04/06/21 12:49 Time Spent Managing PTS Care (In Minutes): 35
[2021-04-06 13:53] VITALS: O2SAT 99
[2021-04-07] MEDS: D5 0.45 NS 1,000 ML IV SCH (00:47)
[2021-04-07] MEDS: PIPER TAZO 3.375 GM in NA CHLORIDE 0.9% 100 ML IV SCH ×2 (00:47→09:01)
[2021-04-07] MEDS: METHYLPREDNISOLONE 40 MG INJ IV SCH ×2 (00:48→09:01)
[2021-04-07] MEDS: MORPHINE 2 MG/ML SYR IV PRN ×2 (03:38→09:06)
[2021-04-07] MEDS: ONDANSETRON 4 MG/2 ML VIAL IV PRN ×2 (03:38→09:06)
[2021-04-07 05:51] LABS: Absolute Lymphocytes (CBC) 0.9 K/uL (0.7-4.9); Hematocrit 38.5 % (36.0-45.0); Lymphocytes % 9.9 % (15.3-44.8); MPV 7.4 fL (7.6-11.3)
[2021-04-07 06:04] LABS: Albumin 2.9 g/dL (3.4-5.0); Bilirubin Total 0.2 mg/dL (0.2-1.0); Potassium 3.8 mmol/L (3.5-5.1); Protein, Total 6.3 g/dL (6.4-8.2)
[2021-04-07] MEDS ORDERED: LEVOTHYROXINE SOD 0.025 MG TAB PO SCH (09:00)
[2021-04-07] MEDS ORDERED: POTASSIUM CL SA 10 MEQ TAB PO ONE (09:00)
--- NOTE | 2021-04-07 09:31 | RAD REPORT ---
EXAM DESCRIPTION: RAD - Abdomen 1 View (KUB) - 04/07/2021 6:44 am CLINICAL HISTORY: Abdomen pain. FINDINGS: Since April 06, 2021 the small bowel caliber has increased with moderate dilatation pre sent. Air within the colon is diminished This is compatible with worsening small bowel obstruction
[2021-04-07 09:46] VITALS: BP 144/66; TEMP 96.9
--- NOTE | 2021-04-07 10:05 | P.DS ---
Admission Date: 04/05/21 Discharge Date: 04/07/21 Disposition: ROUTINE DISCHARGE Discharge Condition: GOOD Reason for Admission: SBO Brief History of Present Illness: History of Present Illness: 65-year-old female with history of Crohn's, hypertension, hypothyroidism and multiple small bowel obstructions in the past presents emergency department for epigastric pain. Patient reports that her last bowel movement was yesterday around noon and normal reports some nausea today after eating potato and crab followed by severe epigastric pain which led her to the emergency department. Patient was evaluated in the emergency department her labs were significant for white blood cell count 1.3 GFR 42 glucose 154 BNP [address] abdomen pelvis demonstrates small bowel obstruction with transition zone in the right lower quadrant as well as irregular scarring in the region of the terminal ileum with adherent small bowel loops focal narrowing and small bowel strictures with possible fistula formation between the loops of small bowel in the proximal colon these findings suggest changes from Crohn's disease, these findings are similar when compared to previous studies. also noted cholelithiasis with gallbladder wall thickening. Ultrasound of the gallbladder reviewed again cholelithiasis with gallbladder wall thickening normal size CBD no pericholecystic fluid. Patient was started on Zosyn given a dose of IV steroids in the ER, ED provider wishes to admit for further evaluation and management. Hospital Course: Hospital course Patient with history of Crohn's, recurrent small bowel obstruction admitted for nausea vomiting and abdominal pain. Noted with recurrent small bowel obstruction with high-grade adhesions and possible fistula. Patient was kept n.p.o., surgical evaluation was obtained. Serial KUB shows improving level of obstruction. She was started on clear liquids which was gradually advanced. She is tolerating p.o. better now. Abdominal pain has significantly improved. She will be discharged home today. She is scheduled to receive her outpatient dose of Remicade for Crohn's disease in a.m. in [place]. Physical Examination - Physical Exam General: Alert, In no apparent distress, Oriented x3, Obese HEENT: Atraumatic, PERRLA, Mucous membr. moist/pink, EOMI, Sclerae nonicteric Neck: Supple, 2+ carotid pulse no bruit, No LAD, Without JVD or thyroid abnormality Respiratory: Clear to auscultation bilaterally, Normal air movement Cardiovascular: Regular rate/rhythm, Normal S1 S2 Gastrointestinal: Normal bowel sounds, resolved tenderness Musculoskeletal: No tenderness Integumentary: No rashes Neurological: Normal speech, Normal strength at 5/5 x4 extr, Normal tone, Normal affect Lymphatics: No axilla or inguinal lymphadenopathy Vital Signs/Physical Exam: Temp Pulse Resp BP Pulse Ox 96.9 F 61 18 144/66 H 98 04/07/21 08:00 04/07/21 08:00 04/07/21 08:00 04/07/21 08:00 04/07/21 08:00 Laboratory Data at Discharge: WBC 8.60 K/uL (4.3-10.9) 04/07/21 05:23 Hgb 12.7 g/dL (12.0-15.0) 04/07/21 05:23 Hct 38.5 % (36.0-45.0) 04/07/21 05:23 Plt Count 327 K/uL (152-406) 04/07/21 05:23 PT 10.1 SECONDS (9.5-12.5) 04/04/21 22:41 INR 0.88 04/04/21 22:41 Sodium 141 mmol/L (136-145) 04/07/21 05:23 Potassium 3.8 mmol/L (3.5-5.1) 04/07/21 05:23 BUN 14 mg/dL (7-18) 04/07/21 05:23 Creatinine 0.95 mg/dL (0.55-1.3) 04/07/21 05:23 Glucose 139 mg/dL (74-106) H 04/07/21 05:23 Magnesium 2.0 mg/dL (1.8-2.4) 04/04/21 22:41 Total Bilirubin 0.2 mg/dL (0.2-1.0) 04/07/21 05:23 AST 8 U/L (15-37) L 04/07/21 05:23 ALT 19 U/L (12-78) 04/07/21 05:23 Alkaline Phosphatase 71 U/L (45-117) 04/07/21 05:23 Lipase 95 U/L (73-393) 04/04/21 22:41 Home Medications: Levothyroxine Sodium 25 mcg PO DAILY 07/27/20 Sertraline [Zoloft*] 200 mg PO BEDTIME 07/27/20 buPROPion HCL [Bupropion HCl] 150 mg PO DAILY 12/10/20 Ondansetron [Zofran (Odt)*] 4 mg PO Q6H PRN #10 tab 03/08/21 predniSONE [Prednisone*] 20 mg PO SEECOM #21 tab 03/08/21 Acetaminophen 160 mg PO Q4HR PRN 04/05/21 Atorvastatin Calcium 10 mg PO DAILY 04/05/21 Cetirizine HCl [Zyrtec] 10 mg PO DAILY 04/05/21 Hyoscyamine Sulfate [Levsin TAB*] 0.125 mg PO Q4H PRN 04/05/21 Lisinopril [Zestril] 5 mg PO DAILY 04/05/21 Metoprolol Succinate [Toprol Xl*] 50 mg PO DAILY 04/05/21 Diet: ADA Activity: Ad jaylen Followup: EMILIANO CUMMINGS [Primary Care Provider] - Physician Review: Patient Assessed, Agree with Above Assessment and Plan Time spent managing pt's care (in minutes): 35
== END 2021-04-07 12:00 | disposition home or self-care (01) | DRG 386 ==
LOC: ER 20:32 → ERHOLD 04-05 01:05 → 2ND 04-05 03:12
PROVIDERS: ADMIT Internal Medicine; ATTEND Internal Medicine
DX: K50.012 Crohn's disease of small intestine with intestinal obstruction (principal); Z68.42 Body mass index [BMI] 45.0-49.9, adult; I10 Essential (primary) hypertension; E03.9 Hypothyroidism, unspecified; E78.5 Hyperlipidemia, unspecified; K80.20 Calculus of gallbladder without cholecystitis without obstruction; K50.013 Crohn's disease of small intestine with fistula; E87.6 Hypokalemia; E11.9 Type 2 diabetes mellitus without complications; E66.9 Obesity, unspecified; Z20.822 Contact with and (suspected) exposure to COVID-19; Z91.040 Latex allergy status
CPT/HCPCS: 36415; 71045; 74018; 74177; 76705; 80048; 80053; 80076; 81003; 83690; 83735; 83880; 84484; 85025; 85610; 93005; 96365; 96366; 96375; 99285; J2270; J2405; J2543; J2920; J2930; J3480; J7030; J7799; Q9967; U0003

== ENCOUNTER 2021-04-16 23:33 | Inpatient (IN) | payer BC ==
--- OUTSIDE RECORDS SUMMARY | 2021-04-16 23:36 | XMS REPORT | Continuity of Care Document ---
:1955 Author Organization [facility] t Address [address] [place] [address] Care Team Providers Name Role Phone Kael MEADOWS MD, A Primary Care Physician Karin PARSONS Attending Clinician LUIS FELIPE Attending Clinician Unavailable Ca VANN Attending Clinician Unavailable KARIN Attending Clinician Unavailable Kaci PARSONS, R. Attending Clinician Yadira MURPHY Attending Clinician Unavailable Ca VANN Admitting Clinician Unavailable Payers Payer Name Policy Type Policy Number Effective Date Expiration Date S ource PPO/EPO - BCBS [id number] BCBS PPO POS EPO [id number] 2010 00:00:00 CHOICE Problems Condition Condition Condition Status Onset Resolution Last Treating Co mments Source Name Details Category Date Date Treatment Clinician Date Crohn's Crohn's Disease Active 2020-02 [facility] disease disease 2-22 [facility] of 00 Medicin e Essential Essential Disease Active Met hodi hypertensi hypertensi 8-13 st on on 00:00: Hospita 00 l Chest pain Chest pain Disease Active M ethodi 2-02 st 00:00: Hospita 00 l 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:00: Hospita involving involving 00 l blackfeet blackfeet 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 [...] 00 Center Latex Propensi Active Rash 2020-02 [facility] ty to 2-10 College adverse 00:00: of reaction 00 Medicin s to e substanc e Latex, Propensi Active Itching Methodi Natural ty to st Rubber adverse Hospita reaction l s to drug NO KNOWN Allergy Active [facility] ALLERGIE S Family History Family Member Diagnosis Comments Start Date Stop Date Source Natural father Cancer [facility] Natural mother Heart disease [facility] Social History Social Habit Start Date Stop Date Quantity Comments Source Exposure to Not sure [facility] of SARS-CoV-2 Medicine (event) History [facility] St[facility] Drinks History [facility] Binge [facility] Tobacco use and 2021-01-25 2021-01-25 Smokeless tobacco [facility] of exposure 00:00:00 00:00:00 non-user Medicine History SDOH 2018-03-19 2018-03-19 1 [facility] Alcohol Frequency 00:00:00 00:00:00 Hospita l Alcohol intake 2018-03-19 2018-03-19 Current [facility] 00:00:00 00:00:00 non-drinker of Hospital alcohol (finding) Sex Ass[birth year] F [facility] Co llege of 00:00:00 00:00:00 Medicine Smoking Status Start Date Stop Date Source Never smoked tobacco [facility] Eric ege of Medicine Former smoker 2018-03-19 00:00:00 2018-03-19 00:00:00 [facility] Medications Ordered Filled Start Stop Current Ordering Indication Dosage Frequency Signature Comments Components Source Medication Medication Date Date Medication? Clinician (SIG) Name Name MINERAL OIL 2021- No Take by Kamala albrecht OR 03-29 mouth. [facility]ra 12:06: 00:00 of 07 :00 Medicin e MINERAL OIL 2021- No Take by Kamala albrecht OR 03-29 mouth. [facility] 12:06: 00:00 of 07 :00 Medicin e Mesalamine 2021- No Take by Ba ylor (PENTASA) 03-29 mouth. [facility]ra 500 MG CPCR 12:04: 00:00 of 57 :00 Medicin e Mesalamine 2021- No Take by [facility] (PENTASA) 03-29 mouth. [facility] 500 MG CPCR 12:04: 00:00 of 57 [...] Take by Kamala albrecht us 03-29 mouth. [facility] (ACIDOPHILU 12:03: 00:00 of S OR) 05 :00 Medicin e Cholecalcif Yes Take by Ba [facility]lor alex - mouth. [facility] (VITAMIN D) 11:46: of 125 MCG 58 Medicin (5000 UT) e CAPS Cholecalcif Yes Take by Ba [facility]lor alex - mouth. [facility] (VITAMIN D) 11:46: of 125 MCG 58 [...] Medicin e hyoscyamine Yes .125mg Take 0.125 Ran (LEVSIN) 2-11 mg by Electra 0.125 MG 11:46: mouth of tablet 58 every 4 Medicin hours as e needed for Cramping. metFORMIN Yes Take 1 [facility] 500 MG TB24 2-11 capsule by Co llege 11:46: mouth of 58 daily. Medicin e metoprolol Yes 50mg Take 50 mg [facility] (TOPROL-XL) 2-11 by mouth Eric ege 50 MG XL 11:46: daily. of tablet 58 Medicin e Acetaminoph Yes Take by Sixto adams en (TYLENOL 2-11 mouth. Colleg e CHILDRENS) 11:29: Take by of 160 MG/5ML 58 mouth q 4 Medi renea SUSP hours prn e predniSONE Yes [id number] 20mg Take 1 [facility] (DELTASONE) 2-11 Tablet by Col lege 20 MG 00:00: mouth of tablet 00 daily. Medicin Taper by 5 e mg every week. MINERAL OIL 2020-02 Yes Take by Sixto adams OR 2-10 mouth. Electra 09:20: of 34 Medicin e Cholecalcif 2020-02 Yes Take by Sixto adams alex 2-10 mouth. [facility] (VITAMIN D) 09:20: of 125 MCG 34 Medicin (5000 UT) e CAPS ferrous 2020-02 Yes 325mg Take 325 Baylo r sulfate 2-10 mg by [facility] (FEROSUL) 09:19: mouth of 325 (65 Fe) 41 daily. Medici n MG tablet e Mesalamine 2020-02 Yes Take by [facility] (PENTASA) 2-10 mouth. Electra 500 MG CPCR 09:19: of 41 Medicin e predniSONE 2020-02 Yes [facility] (DELTASONE) 03-13 College 20 MG 00:00: of tablet 00 Medicin e predniSONE 2020-02- No 20mg Take 20 mg Ran (DELTASONE) 03-13 by mouth Col lege 20 MG 00:00: 00:00 daily. of tablet 00 :00 Medicin e predniSONE 2020-02- No 20mg Take 20 mg [facility] (DELTASONE) 03-13 by mouth Col [...] pantoprazol 2020-02 Yes 40mg Take 40 mg [facility] e 02-27 [place] [facility] [place]IX) 00:00: daily. of 40 MG 00 Medicin tablet e pantoprazol 2020-02- No 40mg Take 40 mg Ran e 02-27 [place] [facility] [place]PROTONIX) 00:00: 00:00 daily. of 40 MG 00 :00 Medicin tablet e pantoprazol 2020-02- No 40mg Take 40 mg Ran e 02-27 [place] [facility] [place]PROTONIX) 00:00: 00:00 daily. of 40 MG 00 :00 Medicin tablet e lisinopril 2020-02 Yes 1 po daily [facility] (PRINIVIL, 02-23 in [facility]) 5 00:00: morning of MG tablet 00 Medicin e lisinopril 2020-02 Yes 1 po daily [facility] (PRINIVIL, 02-23 in [facility]) 5 00:00: morning of MG tablet 00 Medicin e lisinopril 2020-02 Yes 1 po daily B ayherman (PRINIVIL, 02-23 in the [facility]) 5 00:00: morning of MG tablet 00 Medicin e sertraline 2020-02 Yes Ran (ZOLOFT) 1 College 100 MG 00:00: of tablet 00 Medicin e buPROPion 2020-02 Yes TAKE 2 [facility] (WELLBUTRIN 1-02 TABLETS BY Co llege ) 75 MG 00:00: MOUTH of tablet 00 EVERY Medicin MORNING e AND 1 TABLET BY MOUTH EVERY EVENING sertraline 2020-02 Yes [facility] (ZOLOFT) 02-17 College 100 MG 00:00: of tablet 00 Medicin e buPROPion 2020-02 Yes TAKE 2 [facility] (WELLBUTRIN 1-02 TABLETS BY Co llege ) 75 MG 00:00: MOUTH of tablet 00 EVERY Medicin MORNING e AND 1 TABLET BY MOUTH EVERY EVENING sertraline 2020-02 Yes [facility] (ZOLOFT) 02-17 [facility] 100 MG 00:00: of tablet 00 Medicin e buPROPion 2020-02 Yes TAKE 2 [facility] (WELLBUTRIN 1-02 TABLETS BY Co llege ) 75 MG 00:00: MOUTH of tablet 00 EVERY Medicin MORNING e AND 1 TABLET BY MOUTH EVERY EVENING Adalimumab 2020-02 Yes [facility] (HUMIRA 0-25 [facility]ra PEN) 40 00:00: of MG/0.8ML 00 Medicin injection e Adalimumab 2020-02- No [facility] (HUMIRA 0-25 -14 [facility]ra PEN) 40 00:00: 00:00 of MG/0.8ML 00 :00 Medicin injection e levothyroxi Yes levothyrox [facility] 09-17 ine 25 mcg [facility] (SYNTHROID) 00:00: tablet of 25 MCG 00 TAKE 1 Medicin tablet TABLET BY e MOUTH DAILY IN THE MORNING WITH JUST A SIP OF WATER. WAIT 30 MINUTES BEFORE EATING OR DRINKING ANYTHING levothyroxi Yes levothyrox [facility] 09-17 ine 25 mcg [facility] (SYNTHROID) 00:00: tablet of 25 MCG 00 TAKE 1 Medicin tablet TABLET BY e MOUTH DAILY IN THE MORNING WITH JUST A SIP OF WATER. WAIT 30 MINUTES BEFORE EATING OR DRINKING ANYTHING levothyroxi Yes levothyrox [facility] ne 802 ine 25 mcg College (SYNTHROID) 00:00: tablet of 25 MCG 00 TAKE 1 Medicin tablet TABLET BY e MOUTH DAILY IN THE MORNING WITH JUST A SIP OF WATER. WAIT 30 MINUTES BEFORE EATING OR DRINKING ANYTHING lisinopriL- Yes [id number] 1{tbl} QD TAKE 1 [facility] hydrochloro 7-[address] thiazide 00:00: MOUTH Hospita (PRINZIDE) 00 DAILY l 10-12.5 mg per tablet metoprolol Yes [id number] TAKE 1 Me thodi tartrate 7-29 TABLET(50 st (LOPRESSOR) 00:00: MG) BY Hosp mich 50 mg 00 MOUTH l tablet TWICE DAILY metoprolol 2020- No [id number] TAKE 1 M ethodi tartrate 4-26 07-29 TABLET(50 st (LOPRESSOR) 00:00: 00:00 MG) BY Hos alba 50 mg 00 :00 MOUTH l tablet TWICE DAILY lisinopriL- 2020- No [id number] 1{tbl} QD TAKE 1 [facility] hydrochloro 4-26 07-[address] thiazide 00:00: 00:00 MOUTH Hospita (PRINZIDE) 00 :00 DAILY l 10-12.5 mg per tablet lisinopriL- 2020- No [id number] 1{tbl} QD Take 1 [facility] hydrochloro 1-25 04-[address] thiazide 00:00: 00:00 mouth Hospita (PRINZIDE) 00 :00 daily. l 10-12.5 mg per tablet metoprolol 2020- No [id number] 50mg Q.5D Take 1 M ethodi tartrate 1-25 04-26 tablet (50 st (LOPRESSOR) 00:00: 00:00 mg total) Hospita 50 mg 00 :00 by mouth 2 l tablet (two) times a day. lisinopril- 2020- No [id number] 1{tbl} QD TAKE 1 [facility] hydrochloro 1-30 01-[address] thiazide 00:00: 00:00 MOUTH Hospita (PRINZIDE) 00 :00 DAILY l 10-12.5 mg per tablet metoprolol 2020- No [id number] TAKE 1 M ethodi tartrate 03-17- TABLET(50 st (LOPRESSOR) 00:00: 00:00 MG) BY Hos alba 50 mg 00 :00 MOUTH l tablet TWICE DAILY sertraline Yes sertraline [facility] (ZOLOFT) 50 02-17 50 mg College MG tablet 00:00: tablet of 00 Medicin e sertraline 2021- No sertraline [facility] (ZOLOFT) 50 02-17- 50 mg Colleg e MG tablet 00:00: 00:00 tablet of 00 :00 Medicin e sertraline 2021- No sertraline Ran (ZOLOFT) 50 02-17- 50 mg Colleg e MG tablet 00:00: 00:00 tablet of 00 :00 Medicin e aspirin Yes 81mg QD Take 81 mg Meth denis (ECOTRIN) [address] 81 MG 16:39: daily. Hospita enteric 47 l coated tablet fexofenadin Yes Take by Met brianne e HCl 09-[address] (JAYCOB 16:39: needed. Hospit a ODT ORAL) 47 l cetirizine Yes 10mg Q24H Take 10 mg M ethodi (ZyrTEC) 10 09-[address] MG tablet 16:39: daily as Hosp mich 47 needed for l allergies. mvit,calc,m Yes Take by Met [facility] in-folic [address] [id number] 16:39: Hospita 200 mcg 47 l tablet coenzyme Yes [facility] Q10 (CO 09-23 st Q-10) 100 00:00: Hospita mg capsule 00 l cholecalcif Yes Method i alex, 8 st vitamin D3, 00:00: Hospit a (VITAMIN 00 l D3) 5,000 unit tablet docusate Yes [facility] sodium 8- st (COLACE) 00:00: Hospita 100 MG 00 l capsule ferrous Yes [facility] sulfate 325 7-17 st (65 FE) MG 00:00: Hospita tablet 00 l sertraline Yes [facility]i (ZOLOFT) 7-15 st 100 MG 00:00: Hospita tablet 00 l Vital Signs Vital Name Observation Time Observation Value Comments Source Body weight 2021-03-29 17:28:00 110.678 kg [facility] BMI 2021-03-29 17:28:00 46.10 [facility] Systolic blood 2021-03-29 17:28:00 143 mm[Hg] [facility] Medicine Diastolic blood 2021-03-29 17:28:00 82 mm[Hg] [facility] Medicine Heart rate 2021-03-29 17:28:00 60 /min [facility] Body temperature 2021-03-29 17:28:00 36.22 Nadiya [facility] Respiratory rate 2021-03-29 17:28:00 16 /min [facility] Body height 2021-03-29 17:28:00 154.9 cm [facility] Body height 2021-03-01 15:04:00 154.9 cm [facility] Body weight 2021-03-01 15:04:00 107.593 kg [facility] BMI 2021-03-01 15:04:00 44.82 kg/m2 [facility] HEIGHT 2021-02-03 05:20:00 154.9 cm WEIGHT 2021-02-03 05:20:00 106.505 kg HEIGHT 2021-02-03 05:20:00 154.9 cm WEIGHT 2021-02-03 05:20:00 106.505 kg Systolic blood 2021-01-25 15:06:00 122 mm[Hg] [facility] Medicine Diastolic blood 2021-01-25 15:06:00 80 mm[Hg] [facility] Medicine Heart rate 2021-01-25 15:06:00 81 /min [facility] Body temperature 2021-01-25 15:06:00 36.28 Nadiya [facility] Respiratory rate 2021-01-25 15:06:00 14 /min [facility] Body height 2021-01-25 15:06:00 154.9 cm [facility] Body weight 2021-01-25 15:06:00 106.142 kg [facility] BMI 2021-01-25 15:06:00 44.21 kg/m2 [facility] Procedures This patient has no known procedures. Plan of Care Planned Activity Planned Date Details Comments Source Future Scheduled 2021-04-04 Screening for malignant [facility] Test 13:40:02 neoplasm of colon Medicine (procedure) [code = 670999092] Future Scheduled 2021-04-04 Screening for malignant [facility] Test 13:40:02 neoplasm of breast Medicine (procedure) [code = 506974548] Future Scheduled 2021-04-04 TETANUS SHOT (ADULT) [facility] Test 13:40:02 [code = TETANUS SHOT Medicin e (ADULT)] Future Scheduled 2021-04-04 BMI FOLLOW UP PLAN [code [facility] Test 13:40:02 = BMI FOLLOW UP PLAN] Medici ne Future Scheduled 2021-04-04 Hepatitis C screening [facility] Test 13:40:02 (procedure) [code = Medicine [id number]] Future Scheduled 2021-04-[address] [facility] Test 13:40:02 virus screening Medicine (procedure) [code = 409405408] Future Scheduled 2021-04-04 Screening for malignant [facility] Test 13:40:02 neoplasm of cervix Medicine (procedure) [code = 887564277] Future Scheduled 2021-04-04 ZOSTER VACCINE (1 of 2) [facility] Test 13:40:02 [code = ZOSTER VACCINE (1 Me dicine of 2)] Future Scheduled 2021-04-04 FLU VACCINE > 6 MONTHS B [facility] of Test 13:40:02 [code = FLU VACCINE > 6 Medi cine MONTHS] Future Scheduled 2021-04-04 COVID-19 Vaccine (2 - Ba [facility] of Test 13:40:02 Pfizer 3-dose series) Medici ne [code = COVID-19 Vaccine (2 - Pfizer 3-dose series)] Future Scheduled 2021-04-04 Screening for malignant [facility] Test 13:40:02 neoplasm of colon Medicine (procedure) [code = 048974704] Future Scheduled 2021-04-04 Screening for malignant [facility] Test 13:40:02 neoplasm of breast Medicine (procedure) [code = 488743900] Future Scheduled 2021-04-04 TETANUS SHOT (ADULT) [facility] of Test 13:40:02 [code = TETANUS SHOT Medicin e (ADULT)] Future Scheduled 2021-04-04 BMI FOLLOW UP PLAN [code [facility] Test 13:40:02 = BMI FOLLOW UP PLAN] Medici ne Future Scheduled 2021-04-04 Hepatitis C screening [facility] Test 13:40:02 (procedure) [code = Medicine 084762844] Future Scheduled 2021-04-[address] [facility] Test 13:40:02 virus screening Medicine (procedure) [code = 738455185] Future Scheduled 2021-04-04 Screening for malignant [facility] Test 13:40:02 neoplasm of cervix Medicine (procedure) [code = 619122520] Future Scheduled 2021-04-04 ZOSTER VACCINE (1 of 2) [facility] Test 13:40:02 [code = ZOSTER VACCINE (1 Me dicine of 2)] Future Scheduled 2021-04-04 FLU VACCINE > [address] [facility] Test 13:40:02 [code = FLU VACCINE > 6 Medi cine MONTHS] Future Scheduled 2021-04-04 COVID-19 Vaccine (2 - Ba [facility] Test 13:40:02 Pfizer 3-dose series) Medici ne [code = COVID-19 Vaccine (2 - Pfizer 3-dose series)] Future Scheduled 2021-01-25 Screening for malignant [facility] Test 09:15:59 neoplasm of colon Medicine (procedure) [code = 493207725] Future Scheduled 2021-01-25 Screening for malignant [facility] Test 09:15:59 neoplasm of breast Medicine (procedure) [code = 065313418] Future Scheduled 2021-01-25 TETANUS SHOT (ADULT) [facility] of Test 09:15:59 [code = TETANUS SHOT Medicin e (ADULT)] Future Scheduled 2021-01-25 Hepatitis C screening [facility] of Test 09:15:59 (procedure) [code = Medicine 840826175] Future Scheduled 2021-01-[address] [facility] Test 09:15:59 virus screening Medicine (procedure) [code = 544796116] Future Scheduled 2021-01-25 Screening for malignant [facility] Test 09:15:59 neoplasm of cervix Medicine (procedure) [code = 253374349] Future Scheduled 2021-01-25 ZOSTER VACCINE (1 of 2) [facility] Test 09:15:59 [code = ZOSTER VACCINE (1 Me dicine of 2)] Future Scheduled 2021-01-25 FLU VACCINE > 6 MONTHS B [facility] of Test 09:15:59 [code = FLU VACCINE > 6 Medi cine MONTHS] Future Scheduled 2021-01-25 COVID-19 Vaccine (2 - Ba [facility] of Test 09:15:59 Pfizer 2-dose series) Medici ne [code = COVID-19 Vaccine (2 - Pfizer 2-dose series)] Future Scheduled COVID-19 VACCINE (1) Met [facility] Test [code = COVID-19 VACCINE Hos pital (1)] Future Scheduled Hepatitis C screening [facility] Test (procedure) [code = Hospital 809172290] Future Scheduled Screening for malignant [facility] neoplasm of cervix Hospital (procedure) [code = 694130911] Future Scheduled BREAST CANCER SCREENING [facility] [code = BREAST CANCER Hospit al SCREENING] Future Scheduled COLONOSCOPY SCREENING [facility] Test [code = COLONOSCOPY Hospital SCREENING] Future Scheduled SHINGLES VACCINES (#1) M ethodist Test [code = SHINGLES VACCINES Ho spital (#1)] Future Scheduled INFLUENZA VACCINE [code = [facility] Test INFLUENZA VACCINE] Hospital Encounters Start End Encounter Admission Attending Care Care Encounter Source Date/Time Date/Time Type Type Clinicians Facility Department ID 2021-04-08 2021-04-08 Outpatient [facility] [id number] [facility] 08:22:34 23:59:00 Colleg e of Medicin e 2021-03-29 2021-03-29 Office ADINA Frazier [id number] [facility] 11:00:00 13:34:50 Visit Manreet AMBULATOR 350.1.13.21 College Y 0.2.7.2.686 of [id number] Medi renea 325 e 2021-03-01 2021-03-01 Office ADINA Frazier [id number] [facility] 09:00:00 11:07:59 Visit Manreet AMBULATOR 350.1.13.21 College Y 0.2.7.2.686 of [id number] Medi renea 325 e 2021-02-03 2021-02-06 Inpatient ER LUIS FELIPE, [facility] [id number] [facility] 05:14:00 16:07:00 OBINNA 2021-01-25 2021-01-25 Office ADINA FRAZIER [id number] [place] [address] 00:00:00 19:54:04 Visit MANREET AMBULATOR 350.1.13.21 College Y 0.2.7.2.686 of [id number] [facility] 325 e 2020-09-12 2020-09-12 Refill Kaci, 1.2.840.1 [id number] Methodi 00:00:00 00:00:00 [place]. [address]1.[address] 3.430.2.7 Hospit a .3.976895 l .8 2020-06-11 2020-06-11 Refill Kaci, 1.2.840.1 [id number] [facility]i 00:00:00 00:00:00 Ace R. [address]69.1.[address] 3.430.2.7 Hospit a .3.872011 l .8 2020-03-12 2020-03-12 Javier Kelly 1.2.840.1 [id number] Methodi 00:00:00 00:00:[address] 3.430.2.7 Hospit a .3.222193 l .8 Results Test Description Test Time Test Comments Results Result Comments Source HEPATITIS B PANEL 2021-02-06 20:49:20 Test Item Value Reference Range Interpretation Comme nts HEPATITIS B CORE TOTAL ANTIBODY (BEAKER) (test code = Nonreactive Nonreactive 497) HEPATITIS B SURFACE ANTIBODY (BEAKER) (test code = 647) < mIU/mL <8.0 HEPATITIS B SURFACE ANTIGEN (2) (BEAKER) (test code = Nonreactive Nonreactive 2585) Electronic Components Assembler ID - BSOperator ID - BSVITAMIN D, [id number] 18:58:29 Test Item Value Reference Range Interpretation Comments VITAMIN D 25-OH (BEAKER) (test 48.0 ng/mL 6.6-49.9 code = 2764) Effective 11/26/2016: Reference Range ChangeNew: 6.6-49.9 ng/mL Previous: 13.0-47.8 ng/mLRecommended Vitamin D Target Range: 30.0-40.0 ng/mLOperator ID - [facility] [place] [place]. DIFFICILE GDH [id number] 13:19:34 Test Item Value Reference Range Interpretation Comments CDT TOXIN (test code Negative Negative = [id number]) CDT GDH ANTIGEN (test Negative Negative No ind ication of code = 8204714094) Clostridi um difficile infection and n o colonization. Discontinue ent randy isolation and t herapy. Testing performed by [employer] Rapid Cassette Assay. For GDH, published sensitivity of the assay is 98.7% compared to cytotoxicity testing. For Toxin AB, published sensitivity is 87.8% and specificity 99.4% compared to cytotoxicity testing.Verification of kit performance was done by the [facility] Microbiology Lab prior to clinical use.BASIC METABOLIC [id number] 05:52:32 Test Item Value Reference Range Interpretation [...] S NOT APPLICABLE FOR DIALYSIS PATIEN TS. Electronic Components Assembler ID - PIAYA LCBC (HEMOGRAM ONLY)2021-02-06 05:38:48 [...] (BEAKER) (test code = 413) BASIC METABOLIC [id number] 05:38:29 Test Item Value Reference Range Interpretation [...] S NOT APPLICABLE FOR DIALYSIS PATIEN TS. Electronic Components Assembler ID - DEANNA MC-REACTIVE [id number] 05:38:29 Test Item Value Reference Range Interpretation Comments C-REACTIVE PROTEIN (BEAKER) (test 3.86 mg/dL 0.00-0.50 H code = 676) Electronic Components Assembler ID - DEANNA MCBC (HEMOGRAM ONLY)2021-02-05 05:28:27 [...] 0-0 (BEAKER) (test code = 413) CT, [id number] 16:56:00Unlisted Reason for Exam - Click Yes and Enter Reason Below->NoIs this for enterography?->NoWill this procedure require oral contrast?->No [facility] : 1955 Sex: FFINAL REPORT [...] MDReport Verified Date/Time: 02/04/2021 16:56:27 Reading Location: [facility] Diagnostic Imaging Reading Room - [place] [id number] VITAMIN B12 AND [id number] 07:14:11 Test Item Value Reference Range Interpretation Comments VITAMIN B12 187 pg/mL 213-816 L (BEAKER) (test code = 774) FOLATE (BEAKER) 18.90 ng/mL See_Comment [Automated message] (test code = 362) The system which generated this result transmitted ref erence range: >=7.00. The reference range was not used to interpr et this result as normal/abnormal . Electronic Components Assembler ID - LIDA [id number] 07:14:10 Test Item Value Reference Range Interpretation Comments FERRITIN (BEAKER) (test code = 110.79 ng/mL 5.00-275.00 361) Electronic Components Assembler ID - LIDA FIRON, TIBC, % SAT. (WITHOUT FERRITIN)2021-02-04 06:55:40 Test Item Value Reference Range Interpretation Comments IRON (BEAKER) (test code = 547) 75.0 ug/dL 40.0-160.0 TOTAL IRON BINDING CAPACITY 258 ug/dL 250-450 (BEAKER) (test code = 769) IRON % SATURATION (2) (BEAKER) 29 % 20-55 (test code = 2590) [employer]onents Assembler ID - LIDA FHEPATIC FUNCTION [id number] 16:57:11 Test Item Value Reference Range Interpretation [...] Specimen slightly (test code = 347) hemolyzed Electronic Components Assembler ID - PIAYA LHEMOGLOBIN [id number] 12:28:44 Test Item Value Reference Range Interpretation Comments HEMOGLOBIN A1C (BEAKER) (test code = 5.3 % 4.3-6.1 368) [id number] 09:47:42 Test Item Value Reference Range Interpretation Comments PHOSPHORUS (BEAKER) 3.5 mg/dL 2.3-4.7 Specimen slightly (test code = 604) hemolyzed [employer] Assembler ID - PIAYA LBASIC METABOLIC [id number] 09:47:42 Test Item Value Reference Range Interpretation [...] S NOT APPLICABLE FOR DIALYSIS PATIEN TS. Electronic Components Assembler ID - PIAYA [id number] 09:47:41 Test Item Value Reference Range Interpretation Comments MAGNESIUM (BEAKER) 2.2 mg/dL 1.6-2.6 Specimen slightly (test code = 627) hemolyzed [employer] Assembler ID - PIAYA LC-REACTIVE [id number] 09:45:23 Test Item Value Reference Range Interpretation Comments C-REACTIVE PROTEIN (BEAKER) (test 3.67 mg/dL 0.00-0.50 H code = 676) Electronic Components Assembler AMADA PERAZA LCBC W/PLT COUNT & AUTO [id number] 09:23:38 Test Item Value Reference Range Interpretation [...] code = 2801) RAD, ABDOMEN/KUB, 1 VIEW [id number] 07:28:00Reason for exam:->NGT tube placementShould this be performed at the bedside?->Yes [facility] 1955 Sex: FFINAL REPORT RAD, ABDOMEN/KUB, 1 VIEW AP INDICATION: NGT tube placementCOMPARISON: None TECHNIQUE: Limited portable radiograph of the lower chest and upper abdomen was acquired for purposes of evaluating tube placement FINDINGS/IMPRESSION:NG side-port overlies the stomach Signed: [facility] Verified Date/Time: 02/03/2021 07:28:00
[2021-04-16 23:53] LABS: Urine Blood Negative (Negative); Urine Glucose Negative (Negative); Urine Protein Negative (Negative); Urine Specific Gravity 1.025 (1.005-1.030)
[2021-04-17] MEDS ORDERED: ONDANSETRON 4 MG/2 ML VIAL ONE (00:08)
[2021-04-17] MEDS ORDERED: NA CHLORIDE 0.9% 500 ML ONE (00:08)
[2021-04-17] MEDS ORDERED: MORPHINE 4 MG/ML SYR ONE ×2 (00:08→02:06)
[2021-04-17 00:22] LABS: Absolute Lymphocytes (CBC) 1.8 K/uL (0.7-4.9); Hematocrit 40.3 % (36.0-45.0); Lymphocytes % 15.3 % (15.3-44.8); MPV 7.5 fL (7.6-11.3); RBC Red Blood Cell Count 4.49 M/uL (3.86-4.86)
[2021-04-17 00:34] LABS: Albumin 3.1 g/dL (3.4-5.0); Bilirubin Direct 0.1 mg/dL (0-0.2); Bilirubin Total 0.4 mg/dL (0.2-1.0); Protein, Total 6.5 g/dL (6.4-8.2); Urine Bacteria <20 /HPF (<20); Urine RBC <5 /HPF (NONE SEEN); Urine Urothelial Cells <5 /HPF (NONE SEEN)
[2021-04-17] MEDS ORDERED: METHYLPREDNISOLONE 125 MG INJ ONE (01:47)
[2021-04-17] MEDS ORDERED: NA CHLORIDE 0.9% 1,000 ML ONE (02:07)
[2021-04-17] MEDS ORDERED: NA CHLORIDE 0.9% 100 ML IV ONE (02:07)
[2021-04-17] MEDS ORDERED: PIPERACIL/TAZO 3.375 GM VIAL IV ONE (02:07)
--- NOTE | 2021-04-17 02:19 | ER ---
Nurse's Notes [facility] Name: Kindra Novoa Age: 65 yrs Sex: Female : 1955 Arrival Date: 04/16/2021 Time: 23:36 Bed 18 Private MD: Moriah Vasquez Diagnosis: Crohn's disease of both small and large intestine with intestinal obstruction Presentation: 04/16 23:40 Chief complaint: Patient states: Pt c/o epigastric pain due to crohn's disease. Began ss7 at noon today. + nausea. denies vomiting. + diarrhea on yesterday. Coronavirus screen: Vaccine status: Patient reports being unvaccinated. Ebola Screen: No symptoms or risks identified at this time. Initial Sepsis Screen: Does the patient meet any 2 criteria? No. Patient's initial sepsis screen is negative. Does the patient have a suspected source of infection? No. Patient's initial sepsis screen is negative. Risk Assessment: Do you want to hurt yourself or someone else? Patient reports no desire to harm self or others. Onset of symptoms was April 15, 2021. 23:40 Method Of Arrival: Wheelchair ss7 23:40 Acuity: KAROL 3 ss7 Triage Assessment: 23:56 General: Appears in no apparent distress. uncomfortable, Behavior is cooperative, lr4 anxious. Pain: Complains of pain in abdomen Pain currently is 10 out of 10 on a pain scale. Quality of pain is described as aching, crampy. Neuro: No deficits noted. Cardiovascular: No deficits noted. Respiratory: No deficits noted. GI: Reports upper abdominal pain, cramping, diarrhea, epigastric pain, nausea, Pain is 10 out of 10 on a pain scale. Historical: - Allergies: 23:42 Ciprofloxacin; ss7 23:42 Flagyl; ss7 23:42 Latex, Natural Rubber; ss7 - PMHx: 23:42 Colitis; Crohn's Disease; Depression; Hypertension; Hypothyroidism; Insulin Resistance; ss7 - PSHx: 23:42 None; ss7 - Immunization history:: Adult Immunizations Client reports having NOT received the Covid vaccine. Pneumococcal vaccine is not up to date, Flu vaccine is not up to date. - Social history:: Smoking status: Patient denies any tobacco usage or history of. Patient/guardian denies using tobacco, but has a distant history of tobacco abuse. Screenin:58 Abuse screen: Denies threats or abuse. Nutritional screening: No deficits noted. lr4 Tuberculosis screening: No symptoms or risk factors identified. Fall Risk None identified. Assessment: 04/17 03:40 General: Appears in no apparent distress. uncomfortable, Behavior is calm, cooperative, sf1 appropriate for age. Pain: Complains of pain in abdomen. Neuro: No deficits noted. Cardiovascular: No deficits noted. Respiratory: No deficits noted. GI: Bowel sounds present X 4 quads. hyperactive in umbilical area, right upper quadrant, left upper quadrant, right lower quadrant and left lower quadrant. : No deficits noted. Musculoskeletal: No deficits noted. 03:42 GI: sf1 Vital Signs: 04/16 23:40 BP 150 / 74; Pulse 72; Resp 22; Pulse Ox 97% ; Weight 108.86 kg; Height 5 ft. 1 in. ss7 (154.94 cm); Pain 10/10; 23:54 Temp 98.2; sf1 04/17 01:02 BP 116 / 62; Pulse 57; Resp 20; Pulse Ox 91% ; sf1 01:45 Pain 2/10; sf1 01:49 BP 105 / 59; Pulse 58; Resp 18; Pulse Ox 94% on R/A; Pain 5/10; sf1 03/ 23:40 Body Mass Index 45.35 (108.86 kg, 154.94 cm) 7 ED Course: 04/16 23:36 Patient arrived in ED. es 23:36 Moriah Vasquez is Private Physician. es 23:39 Esa Betts PA is PHCP. cp 23:39 Patrick Costa MD is Attending Physician. cp 23:42 Triage completed. ss7 23:42 Arm band placed on left wrist. ss7 23:54 Conchita Varela RN is Primary Nurse. sf1 23:56 Inserted saline lock: 20 gauge in left wrist, using aseptic technique. lr4 04/17 00:13 Liver (Hepatic) Function Sent. sf1 00:13 Basic Metabolic Panel Sent. sf1 00:13 Urine Microscopic Only Sent. sf1 00:13 Basic Metabolic Panel Sent. sf1 00:13 Hepatic Function Sent. sf1 00:14 CBC with Diff Sent. sf1 00:14 Lipase Sent. sf1 01:30 CT Abd/Pelvis - IV Contrast Only In Process Unspecified. EDMS 02:17 Prince Mendez MD is Hospitalizing Provider. cp 02:21 COVID-19 SARS RT PCR (Document "Date of Onset" if Symptomatic) Sent. sf1 03:40 Patient has correct armband on for positive identification. Bed in low position. Call sf1 light in reach. 03:40 No provider procedures requiring assistance completed. sf1 Administered Medications: 00:12 Drug: NS 0.9% 500 ml Route: IV; Rate: 500 ml/hr; Site: left hand; sf1 02:21 Follow up: IV Status: Completed infusion; IV Intake: 500ml sf1 00:13 Drug: morphine 4 mg Route: IVP; Site: left hand; sf1 01:45 Follow up: Pain 2/10 Adult; Response: Pain is decreased sf1 00:13 Drug: Zofran (Ondansetron) 4 mg Route: IVP; Site: left hand; sf1 02:24 Follow up: Response: Nausea is decreased sf1 01:49 Drug: SOLU-Medrol (methylPrednisoLONE) 125 mg Route: IVP; Site: left hand; sf1 02:22 Follow up: Response: No adverse reaction sf1 02:10 Drug: morphine 4 mg Route: IVP; Site: left hand; sf1 02:22 Follow up: Response: Pain is decreased sf1 02:16 Drug: NS 0.9% 1000 ml Route: IV; Rate: 100 ml/hr; Site: left hand; sf1 02:16 Drug: Zosyn (piperacillin-tazobactam) 3.375 grams Route: IVPB; Infused Over: 60 mins; sf1 Site: left hand; Intake: 02:21 IV: 500ml; Total: 500ml. sf1 Outcome: 02:18 Decision to Hospitalize by Provider. cp 03:42 Admitted to Med/surg accompanied by tech, via wheelchair, Report called to ayla hines rn 03:42 Condition: stable 04:06 Patient left the ED. sf1 Signatures: Dispatcher [employer] Irene Watters Corey, PA PA cp Fillers, Samantha, RN RN sf1 Viola Eduardo RN RN ss7 Lori Hills RN RN lr4
--- NOTE | 2021-04-17 02:19 | EDPHYS ---
Physician Documentation [facility] Name: Kindra Novoa Age: 65 yrs Sex: Female : 1955 Arrival Date: 04/16/2021 Time: 23:36 Bed 18 Private MD: Moriah Vasquez ED Physician Patrick Costa HPI: 04/16 23:50 This 65 yrs old Female presents to ER via Wheelchair with complaints of cp Abdominal Pain. 23:50 The patient presents with abdominal pain in the upper abdomen. cp 23:50 Onset: The symptoms/episode began/occurred today, around noon. cp 23:50 The symptoms do not radiate. Associated signs and symptoms: Pertinent positives: cp nausea, diarrhea yesterday, Pertinent negatives: blood in stools, chest pain, constipation, dysuria, fever, vomiting. The symptoms are described as constant. Severity of pain: in the emergency department the pain is unchanged despite home interventions. The patient has experienced similar episodes in the past, multiple times. Historical: - Allergies: 23:42 Ciprofloxacin; ss7 23:42 Flagyl; ss7 23:42 Latex, Natural Rubber; ss7 - PMHx: 23:42 Colitis; Crohn's Disease; Depression; Hypertension; Hypothyroidism; Insulin Resistance; ss7 - PSHx: 23:42 None; ss7 - Immunization history:: Adult Immunizations Client reports having NOT received the Covid vaccine. Pneumococcal vaccine is not up to date, Flu vaccine is not up to date. - Social history:: Smoking status: Patient denies any tobacco usage or history of. Patient/guardian denies using tobacco, but has a distant history of tobacco abuse. ROS: 23:55 Constitutional: Negative for body aches, chills, fever, poor PO intake. cp 23:55 Eyes: Negative for injury, pain, redness, and discharge. cp 23:55 Cardiovascular: Negative for chest pain, edema, palpitations. 23:55 Respiratory: Negative for cough, shortness of breath, wheezing. 23:55 Abdomen/GI: Positive for abdominal pain, nausea, Negative for vomiting, diarrhea, constipation. Exam: 23:59 Constitutional: The patient appears in no acute distress, alert, awake, cp non-diaphoretic, non-toxic, well developed, well nourished, obese. 23:59 Head/Face: Normocephalic, atraumatic. cp 23:59 Eyes: Periorbital structures: appear normal, Conjunctiva: normal, no exudate, no injection, Sclera: no appreciated abnormality, Lids and lashes: appear normal, bilaterally. 23:59 ENT: External ear(s): are unremarkable, Nose: is normal, Mouth: Lips: moist, Posterior pharynx: Airway: no evidence of obstruction, patent. 23:59 Chest/axilla: Inspection: normal. 23:59 Cardiovascular: Rate: normal, Rhythm: regular. 23:59 Respiratory: the patient does not display signs of respiratory distress, Respirations: normal, no use of accessory muscles, no retractions, labored breathing, is not present, Breath sounds: are clear throughout, no decreased breath sounds, no stridor, no wheezing. 23:59 Abdomen/GI: Inspection: obese Bowel sounds: active, all quadrants, Palpation: soft, in all quadrants, severe abdominal tenderness, in the right upper quadrant and left upper quadrant, rebound tenderness, is not appreciated, voluntary guarding, is elicited in the right upper quadrant and left upper quadrant. 23:59 Back: pain, is absent, ROM is normal. Vital Signs: 23:40 BP 150 / 74; Pulse 72; Resp 22; Pulse Ox 97% ; Weight 108.86 kg; Height 5 ft. 1 in. ss7 (154.94 cm); Pain 10/10; 23:54 Temp 98.2; sf1 03/02 01:02 BP 116 / 62; Pulse 57; Resp 20; Pulse Ox 91% ; sf1 01:45 Pain 2/10; sf1 01:49 BP 105 / 59; Pulse 58; Resp 18; Pulse Ox 94% on R/A; Pain 5/10; sf1 03/ 23:40 Body Mass Index 45.35 (108.86 kg, 154.94 cm) ss7 MDM: 03 23:40 Patient medically screened. cp 04/17 00:00 Differential diagnosis: bowel obstruction, diverticulitis, non-specific abd pain, cp pancreatitis, Pyelonephritis, Ureterolithiasis, urinary tract infection, colitis. 02:18 Data reviewed: vital signs, nurses notes, lab test result(s), radiologic studies, CT cp scan. 02:18 Counseling: I had a detailed discussion with the patient and/or guardian regarding: the cp historical points, exam findings, and any diagnostic results supporting the discharge/admit diagnosis, lab results, radiology results, the need for further work-up and treatment in the hospital. Response to treatment: the patient's symptoms have mildly improved after treatment, and as a result, I will admit patient. 04/16 23:53 Order name: Urine Dipstick-Ancillary; Complete Time: 00:23 EDMS 04/16 23:58 Order name: Basic Metabolic Panel cp 04/16 23:58 Order name: CBC with Diff; Complete Time: 00:23 cp 04/17 00:51 Interpretation: Normal except: WBC 11.70; MPV 7.5; AIREL% 79.7; NEUT A 9.3. cp 04/16 23:58 Order name: Hepatic Function cp 04/16 23:58 Order name: Lipase; Complete Time: 00:50 cp 04/16 23:59 Order name: Urine Microscopic Only; Complete Time: 00:50 cp 04/17 00:50 Interpretation: Reviewed. 04/16 23:59 Order name: Basic Metabolic Panel; Complete Time: 00:35 EDMS 04/16 23:59 Order name: Liver (Hepatic) Function; Complete Time: 00:50 EDMS 04/17 00:50 Interpretation: Normal except: AST 13; ALB 3.1; A/G 0.9. 04/17 00:23 Order name: CT Abd/Pelvis - IV Contrast Only cp 04/17 02:15 Order name: COVID-19 SARS RT PCR (Document "Date of Onset" if Symptomatic) la1 04/16 23:58 Order name: IV Saline Lock; Complete Time: 00:13 cp 04/16 23:58 Order name: Labs collected and sent; Complete Time: 00:13 cp Administered Medications: 00:12 Drug: NS 0.9% 500 ml Route: IV; Rate: 500 ml/hr; Site: left hand; sf1 02:21 Follow up: IV Status: Completed infusion; IV Intake: 500ml sf1 00:13 Drug: morphine 4 mg Route: IVP; Site: left hand; sf1 01:45 Follow up: Pain 2/10 Adult; Response: Pain is decreased sf1 00:13 Drug: Zofran (Ondansetron) 4 mg Route: IVP; Site: left hand; sf1 02:24 Follow up: Response: Nausea is decreased sf1 01:49 Drug: SOLU-Medrol (methylPrednisoLONE) 125 mg Route: IVP; Site: left hand; sf1 02:22 Follow up: Response: No adverse reaction sf1 02:10 Drug: morphine 4 mg Route: IVP; Site: left hand; sf1 02:22 Follow up: Response: Pain is decreased sf1 02:16 Drug: NS 0.9% 1000 ml Route: IV; Rate: 100 ml/hr; Site: left hand; sf1 02:16 Drug: Zosyn (piperacillin-tazobactam) 3.375 grams Route: IVPB; Infused Over: 60 mins; sf1 Site: left hand; Disposition: 04:15 Co-signature as Attending Physician, Patrick Costa MD I agree with the assessment and rn plan of care. Attestation: The patient's history, exam findings, diagnostics, and a summary of any interventions or procedures was reviewed in detail with Esa SKINNER. Disposition Summary: 04/17/21 02:18 Hospitalization Ordered Hospitalization Status: Inpatient Admission cp Provider: Prince lavon Mendez Location: Telemetry/MedSurg (Inpatient) cp Condition: Stable cp Problem: an acute exacerbation cp Symptoms: have improved cp Bed/Room Type: Standard Room Assignment: 202(04/17/21 03:24) Diagnosis - Crohn's disease of both small and large intestine with intestinal obstruction cp Forms: - Medication Reconciliation Form cp - SBAR form cp Signatures: Dispatcher [employer] EDMS Mariposa Green RN RN mw Nieto, Roman, MD MD rn Attema, Lee, BERNICE-C [employer]CH[employer]-[facility] Esa Betts PA PA cp Conchita Varela RN RN sf1 Viola Eduardo RN RN ss7 Corrections: (The following items were deleted from the chart) 00:24 00:23 Abdomen Pelvis W Con+CT.RAD.BRZ ordered. EDMS EDMS 03:24 02:18 cp mw
--- NOTE | 2021-04-17 02:34 | P.HP ---
Certification for Inpatient Patient admitted to: Inpatient With expected LOS: >2 Midnights Patient will require the following post-hospital care: None Practitioner: I am a practitioner with admitting privileges, knowledge of patient current condition, hospital course, and medical plan of care. Services: Services provided to patient in accordance with Admission requirements found in Title 42 Section 412.3 of the Code of Federal Regulations Patient History Date of Service: 04/17/21 Reason for admission: Recurrent small bowel obstruction History of Present Illness: 65-year-old female with history of Crohn's, recurrent small bowel obstructions presents the emergency department with epigastric pain, nausea and some diarrhea. Patient was evaluated here in the emergency department her labs were significant for white blood cell count 11.7 with left shift GFR 42 glucose 137 urinalysis negative Covid test pending CT abdomen pelvis with IV contrast demonstrated recurrent small bowel obstruction with inflammatory and scarlike changes within the right lower quadrant consistent with Crohn's disease. Patient was started on Zosyn, IV fluids and given pain medications. Will need to admit for further evaluation and management of recurrent small bowel obstruction. Allergies ciprofloxacin Allergy (Verified 07/12/20 22:34) Itching/Hives/Rash latex [Latex] Allergy (Verified 05/12/11 07:41) Itching/Hives/Rash Latex, Natural Rubber Allergy (Verified 06/07/20 05:52) Unknown metronidazole Allergy (Verified 07/12/20 22:34) Itching/Hives/Rash buspirone Adverse Reaction (Verified 07/12/20 22:35) Nausea/Vomiting Home Medications: Levothyroxine Sodium 25 mcg PO DAILY 07/27/20 Sertraline [Zoloft*] 200 mg PO BEDTIME 07/27/20 buPROPion HCL [Bupropion HCl] 150 mg PO DAILY 12/10/20 Ondansetron [Zofran (Odt)*] 4 mg PO Q6H PRN #10 tab 03/08/21 predniSONE [Prednisone*] 20 mg PO SEECOM #21 tab 03/08/21 Acetaminophen 160 mg PO Q4HR PRN 04/05/21 Atorvastatin Calcium 10 mg PO DAILY 04/05/21 Cetirizine HCl [Zyrtec] 10 mg PO DAILY 04/05/21 Hyoscyamine Sulfate [Levsin TAB*] 0.125 mg PO Q4H PRN 04/05/21 Lisinopril [Zestril] 5 mg PO DAILY 04/05/21 Metoprolol Succinate [Toprol Xl*] 50 mg PO DAILY 04/05/21 - Past Medical/Surgical History Diabetic: No -: HTN -: Prediabetes -: Hypothyroidism -: Depression -: Recurrent SBO -: GERD -: Bowel obstruction -: Psychosocial/ Personal History: Patient is . - Family History Father -: Cancer Mother -: Heart disease - Social History Smoking Status: Never smoker Alcohol use: No CD- Drugs: No Caffeine use: No Place of Residence: Home Review of Systems 10-point ROS is otherwise unremarkable Gastrointestinal: Nausea, Abdominal Pain, Diarrhea, As per HPI Physical Examination - Physical Exam General: Alert, In no apparent distress, Oriented x3, Obese HEENT: Atraumatic, PERRLA, Mucous membr. moist/pink, EOMI, Sclerae nonicteric Neck: Supple, 2+ carotid pulse no bruit, No LAD, Without JVD or thyroid abnormality Respiratory: Clear to auscultation bilaterally, Normal air movement Cardiovascular: Regular rate/rhythm, Normal S1 S2 Gastrointestinal: Normal bowel sounds, No rebound, No guarding, Tenderness (Mild epigastric tenderness) Musculoskeletal: No tenderness Integumentary: No rashes Neurological: Normal gait, Normal speech, Normal strength at 5/5 x4 extr, Normal tone, Normal affect Lymphatics: No axilla or inguinal lymphadenopathy - Studies Laboratory Data (last 24 hrs) 04/16/21 23:51: WBC 11.70 H D, Hgb 13.4, Hct 40.3, Plt Count 348 04/16/21 23:51: Sodium 140, Potassium 4.0, BUN 18, Creatinine 1.27, Glucose 137 H, Total Bilirubin 0.4, AST 13 L, ALT 23, Alkaline Phosphatase 99, Lipase 104 Assessment and Plan - Plan Assessment: Recurrent small bowel obstruction with history of Crohn's disease Hypothyroidism Prediabetes GERD Plan: Recurrent small bowel obstruction with history of Crohn's disease: N.p.o., IVF, Zosyn, general surgery consult in place. We will also give IV steroids as patient has improved with these in the past. NGT if patient has worsening abdominal distention, vomiting or pain. Hypothyroidism: Continue home medications when appropriate Prediabetes: Every 6 hours Accu-Chek, mild sliding scale insulin GERD: Daily Protonix IV. DVT PPX: Lovenox Code status: Full Discharge Plan: Home Plan to discharge in: Greater than 2 days - Advance Directives Does patient have a Living Will: No Does patient have a Durable POA for Healthcare: No - Code Status/Comfort Care Code Status Assessed: Yes (Full code) Critical Care: No Time Spent Managing Pts Care (In Minutes): 55
[2021-04-17] MEDS ORDERED: SODIUM CHLORIDE 0.9% 10ML INJ IV PRN (04:11)
[2021-04-17] MEDS ORDERED: HYDROMORPHONE HCL 0.5 MG/0.5 ML INJ IV ONE (04:23)
[2021-04-17] MEDS ORDERED: D50W 25 GM/50 ML SYRINGE IV PRN (04:43)
[2021-04-17] MEDS ORDERED: GLUCAGON 1 MG/VIAL IM PRN (04:43)
[2021-04-17 05:02] VITALS: BMI 44.9
[2021-04-17] MEDS: INSULIN -REGULAR HUMAN 50 UNIT/0.5 ML ML SQ SCH ×3 (06:00→18:00)
[2021-04-17] MEDS: D5 0.45 NS 1,000 ML IV SCH ×3 (06:15→20:33)
[2021-04-17] MEDS ORDERED: INSULIN -REGULAR HUMAN 50 UNIT/0.5 ML ML SQ SCH (07:30)
[2021-04-17 08:16] LABS: Hematocrit 38.2 % (36.0-45.0); Lymphocytes % 12.9 % (15.3-44.8); MPV 7.6 fL (7.6-11.3); RBC Red Blood Cell Count 4.25 M/uL (3.86-4.86)
[2021-04-17] MEDS: METHYLPREDNISOLONE 40 MG INJ IV SCH ×2 (09:25→16:08)
[2021-04-17] MEDS: ENOXAPARIN 40 MG/0.4 ML SQ SCH (09:25)
[2021-04-17] MEDS: PANTOPRAZOLE 40 MG INJ IVP SCH (09:25)
[2021-04-17] MEDS: PIPER TAZO 3.375 GM in NA CHLORIDE 0.9% 100 ML IV SCH ×2 (09:25→16:08)
[2021-04-17] MEDS: MORPHINE 4 MG/ML SYR IV PRN ×3 (09:37→21:08)
[2021-04-17] MEDS: ONDANSETRON 4 MG/2 ML VIAL IV PRN ×3 (09:38→21:08)
--- NOTE | 2021-04-17 12:18 | RAD REPORT ---
EXAM DESCRIPTION: CT - Abdomen Pelvis W Contrast - 04/17/2021 6:30 am CLINICAL HISTORY: ABD PAIN COMPARISON: 04/04/2021. TECHNIQUE: CT ABDOMEN PELVIS WITH IV CONTRAST on 04/17/2021 12:23 AM OFFICE SUPERVISOR This exam was performed according to our departmental dose-optimization program, which includes autom ated exposure control, adjustment of the mA and/or kV according to patient size and/or use of iterati ve reconstruction technique. FINDINGS: Lower lungs are clear. Abdomen: The liver is normal in appearance. There is no biliary dilatation. Gallbladder is normally d istended. The pancreas and spleen are normal in appearance. Adrenal glands are normal. Kidneys are mi ldly atrophic. There is a small upper pole right renal cyst. Abdominal aorta is normal in course and caliber without aneurysm. There is no free air. There is no r etroperitoneal adenopathy. Pelvis: There is mild colonic diverticulosis. There are mildly dilated small bowel loops within most of the left abdomen. There is scarring and mild inflammation in the region of the terminal ileum. Uri nary bladder is unremarkable. There is no free fluid. Uterus is normal in size. The appendix is not c learly seen. Skeleton: There are no acute osseous findings. No suspicious bony lesions. IMPRESSION: Recurrent or persistent small bowel obstruction, slightly improved. Inflammatory and scarlike changes within the right lower quadrant, consistent with Crohn's disease. Electronically signed by: Karel Chandler MD 04/17/2021 1:54 AM OFFICE SUPERVISOR Due to temporary technical issues with the PACS/Fluency reporting system, reports are being signed by the in house radiologist without review as a courtesy to ensure prompt reporting. The interpreting r adiologist is fully responsible for the content of the report.
--- NOTE | 2021-04-17 13:28 | CON ---
Date of Consultation: 04/17/2021 Brief History Of Present Illness: The patient is a 65-year-old female, known to me from pr evious admissions with known history of Crohn disease with exacerbation, who presents to the hospital with recurrent epigastric and generalized abdominal pain. She has had multiple admissions for the s brady issues, which were related to her Crohn disease and partial small bowel obstructions. She comes with similar complaints before. She generally had been admitted very frequently with nonoperative ma vikki being her primary treatment. She is generally treated with pulse steroids. She recognized her symptoms and as such, she states that she returns with similar complaints. Since being discharge d from her last admission less than a month ago, she was discontinued on her Humira treatment and sta rted infliximab/Remicade treatment, but she has only received 1 treatment of this. She states that w hile her pain returned in a similar fashion, it has been much worse than her previous exacerbations a nd she already feels significantly better than her previous admissions. Past Medical History: Significant for hypertension, diabetes, hypothyroidism, depression, multiple b owel obstructions, GERD, Crohn disease. Past Surgical History: Includes . Allergies: CIPRO, LATEX, FLAGYL, AND BUSPAR. Home Medications: Include Wellbutrin, vitamin D, levothyroxine, Zoloft, infliximab/Remicade, antacid , bupropion, prednisone, Augmentin, and Zofran. Family History: Significant for cancer in father, heart disease in her mother. Social History: She denies smoking, alcohol, or recreational drug use. Review of Systems: Ten-point review of systems other than HPI, denies. Physical Examination: Vital Signs: At the time of my examination; her blood pressure was 109/57, pulse was 56, respiratory rate was 18, temperature 97.5, her O2 saturations were 91% on room air. General: She is awake, alert, oriented. Psychiatric: She is appropriate, conversive. HEENT: Normocephalic. Sclerae icteric. Mucous membranes moist. Oropharynx clear. Neck: Supple without JVD. Chest: Normal expansion and excursion. Cardiovascular: Regular rate and rhythm. Pulmonary: Clear to auscultation bilaterally. Abdomen: Soft with mild global tenderness to palpation. Very minimal tenderness overall. No reboun d. No guarding. No focal peritonitis. Extremities: No clubbing, cyanosis, or edema. Skin: Warm and dry. Laboratory Data: Reveals a white blood cell count of 7.8, hemoglobin of 12.6, hematocrit of 38.2, pl atelet count was 304. Neutrophils were 86%. Her sodium is 141, potassium 4.0, chloride 108, carbon dioxide 30, BUN 16, creatinine 1.02, her glucose was 156. AST 13, ALT 23, alkaline phosphatase was 9 9. She had UA, which was essentially negative with the exception of trace leukocyte esterase. COVID was negative. She had imaging performed, which included a CT of the abdomen and pelvis, which was r ead by the night radiologist as recurrent or persistent small bowel obstruction, slightly improved, i nflammatory and scar like changes to the right lower quadrant consistent with Crohn disease. Assessment And Plan: This is a 65-year-old female, who comes in with an additional episode of recurr ent partial small bowel obstruction due to Crohn exacerbation, recently started on infliximab. 1.IV fluid hydration. 2.N.p.o. 3.Serial abdominal exams. 4.Recommend steroid treatment once again with pulse steroid treatment into a taper and continued med ical management. 5.I have explained risks, benefits, and alternatives of the above stated plan and the patient agrees to proceed as indicated. Thank you for this interesting consult. RODGER/ALIREZA Voice ID: [id number] Report ID: [id number]
[2021-04-17 22:15] VITALS: O2SAT 96
[2021-04-18] MEDS: METHYLPREDNISOLONE 40 MG INJ IV SCH ×3 (00:16→18:03)
[2021-04-18] MEDS: PIPER TAZO 3.375 GM in NA CHLORIDE 0.9% 100 ML IV SCH ×3 (00:16→18:03)
[2021-04-18] MEDS ORDERED: ONDANSETRON 4 MG/2 ML VIAL IV PRN (00:30)
[2021-04-18] MEDS: MORPHINE 4 MG/ML SYR IV PRN ×3 (00:45→20:22)
[2021-04-18 05:37] LABS: Absolute Lymphocytes (CBC) 1.1 K/uL (0.7-4.9); Hematocrit 36.3 % (36.0-45.0); MPV 7.5 fL (7.6-11.3); RBC Red Blood Cell Count 4.05 M/uL (3.86-4.86)
[2021-04-18 05:55] LABS: Albumin 2.9 g/dL (3.4-5.0); Bilirubin Total 0.4 mg/dL (0.2-1.0); Magnesium 2.1 mg/dL (1.8-2.4); Potassium 3.8 mmol/L (3.5-5.1); Protein, Total 6.1 g/dL (6.4-8.2)
[2021-04-18] MEDS: INSULIN -REGULAR HUMAN 50 UNIT/0.5 ML ML SQ SCH ×3 (06:00→12:00)
[2021-04-18 07:14] LABS: Blood Morphology Comment NOT SEEN (NOT SEEN); Platelet Estimate ADEQ
--- NOTE | 2021-04-18 08:32 | RAD REPORT ---
EXAM DESCRIPTION: RAD - Abdomen 1 View (KUB) - 04/18/2021 5:39 am CLINICAL HISTORY: eval sbo Pain COMPARISON: Abdomen 1 View (KUB) dated 04/07/2021; Abdomen 1 View (KUB) dated 04/06/2021; Abdomen 1 Vi ew (KUB) dated 04/05/2021; Abdomen 1 View (KUB) dated 01/10/2021; Abdomen Pelvis W Contrast dated 04/17/2021 FINDINGS: Distention of small bowel loops in the central abdomen is again noted, appearing slightly less prominent relative to yesterday's CT study. No free intraperitoneal air or abnormal calcificatio ns seen. No significant bony findings. IMPRESSION: Slight improvement is suspected SBO pattern since yesterday.
[2021-04-18] MEDS ORDERED: POTASSIUM CL SA 10 MEQ TAB PO ONE (09:00)
[2021-04-18] MEDS: PANTOPRAZOLE 40 MG INJ IVP SCH (09:14)
[2021-04-18] MEDS: ENOXAPARIN 40 MG/0.4 ML SQ SCH (09:15)
[2021-04-18] MEDS: D5 0.45 NS 1,000 ML IV SCH ×2 (09:20→20:23)
--- NOTE | 2021-04-18 14:57 | P.PN ---
Subjective Date of Service: 04/18/21 Chief Complaint: Recurrent small bowel obstruction Subjective: Improving (Patient's diet advanced today. This improvement is also reflected in her KUB.) Physical Examination - Vital Signs Temperature: 96.9 F Blood Pressure: 135/60 Pulse: 59 Respirations: 17 Pulse Ox (%): 97 - Physical Exam General: Alert, In no apparent distress, Cooperative, Obese HEENT: Atraumatic, Normocephalic Respiratory: Clear to auscultation bilaterally, Normal air movement Cardiovascular: Regular rate/rhythm, Normal S1 S2, Systolic murmur Gastrointestinal: Normal bowel sounds, Soft and benign, Non-distended Neurological: Normal speech, Normal affect Assessment And Plan - Current Problems (Diagnosis) (1) Small bowel obstruction Current Visit: No Status: Acute (2) Crohn's disease Current Visit: No Status: Chronic Qualifiers: Gastrointestinal tract location: unspecified location Digestive disease complication type: with intestinal obstruction Qualified Code(s): K50.912 - Crohn's disease, unspecified, with intestinal obstruction (3) Depression Current Visit: No Status: Chronic Qualifiers: Depression Type: unspecified Qualified Code(s): F32.9 - Major depressive disorder, single episode, unspecified (4) Hypertension Current Visit: No Status: Chronic Qualifiers: (5) Hypothyroidism Current Visit: No Status: Chronic Qualifiers: Physician Review Additional Text: 04/18/21 14:56 Assessment Patient is a 65-year-old female with known history of Crohn's disease and recurrent bowel obstructions. She is currently admitted with another small bowel obstruction after she presented with epigastric pain. She has responded to conservative therapy which mainly consisted of bowel rest and IV fluid. No NG tube was placed. Small bowel obstruction Crohn disease Morbid obesity Hypothyroidism Hypertension Plan: Advance diet as tolerated Continue systemic steroids She is due for another treatment of infliximab early next week I am obtaining a 2D echo today to assess her murmur If the above echo is normal, he can be discharged home tomorrow
[2021-04-18] MEDS ORDERED: ONDANSETRON 4 MG (ODT) TAB PO PRN (15:00)
[2021-04-18] MEDS ORDERED: HYOSCYAMINE SULF 0.125 MG TAB PO PRN (15:00)
[2021-04-18] MEDS ORDERED: ACETAMINOPHEN 160 MG/5 ML UCUP PO PRN (15:25)
[2021-04-18] MEDS: METOPROLOL XL 50 MG TAB PO SCH (20:23)
[2021-04-18] MEDS ORDERED: SERTRALINE HCL 100 MG TAB PO SCH (21:00)
[2021-04-19] MEDS: INSULIN -REGULAR HUMAN 50 UNIT/0.5 ML ML SQ SCH
[2021-04-19] MEDS: METHYLPREDNISOLONE 40 MG INJ IV SCH ×2 (01:30→09:50)
[2021-04-19] MEDS: PIPER TAZO 3.375 GM in NA CHLORIDE 0.9% 100 ML IV SCH ×2 (01:30→09:00)
[2021-04-19] MEDS: MORPHINE 4 MG/ML SYR IV PRN (01:40)
[2021-04-19 05:39] VITALS: BP 167/76; TEMP 97
[2021-04-19 06:20] LABS: Absolute Lymphocytes (CBC) 0.9 K/uL (0.7-4.9); Hematocrit 34.9 % (36.0-45.0); Lymphocytes % 10.4 % (15.3-44.8); MPV 7.4 fL (7.6-11.3); RBC Red Blood Cell Count 3.91 M/uL (3.86-4.86)
[2021-04-19 06:49] LABS: Bilirubin Total 0.3 mg/dL (0.2-1.0); Magnesium 2.1 mg/dL (1.8-2.4); Potassium 3.7 mmol/L (3.5-5.1)
--- NOTE | 2021-04-19 06:51 | ECHO ---
HEIGHT: 5 ft 1 in WEIGHT: 237 lb 6.4 oz DATE OF STUDY: 04/18/[address]: Prince Mireille Mendez MD 2-DIMENSIONAL: YES M.MODE: YES DOPPLER: YES COLOR FLOW: YES TDS: NO PORTABLE: NO DEFINITY: NO BUBBLE STUDY: NO DIAGNOSIS: SBO CARDIAC HISTORY: CATHERIZATION: SURGERY: PROSTHETIC VALVE: PACEMAKER: MEASUREMENTS (cm) DIASTOLIC (NORMALS) SYSTOLIC (NORMALS) IVSd 1.0 (0.6-1.2) LA Diam 4.3 (1.9-4.0) LVEF >60% LVIDd 4.2 (3.5-5.7) LVIDs 2.3 (2.0-3.5) %FS 46% LVPWd 0.9 (0.6-1.2) Ao Diam 2.0 (2.0-3.7) 2 DIMENSIONAL ASSESSMENT: RIGHT ATRIUM: NORMAL LEFT ATRIUM: ENLARGED RIGHT VENTRICLE: NORMAL LEFT VENTRICLE: NORMAL TRICUSPID VALVE: MILD TRICUSPID REGURGITATION MITRAL VALVE: MILD MITRAL ANNULAR CALCIFICATION, MILD MITRAL REGURGITATION PULMONIC VALVE: NORMAL AORTIC VALVE: MILD AORTIC STENOSIS PERICARDIAL EFFUSION: NONE AORTIC ROOT: NORMAL LEFT VENTRICULAR WALL MOTION: NORMAL. DOPPLER/COLOR FLOW: SEE BELOW. COMMENTS: NORMAL LEFT VENTRICULAR EJECTION FRACTION GREATER THAN 60% WITH NORMAL WALL MOTION. MILD TRICUSPID AND MITRAL REGURGITATION. MILD AORTIC STENOSIS. LEFT ATRIAL ENLARGEMENT. DIASTOLIC DYSFUNCTION - (MODERATE). TECHNOLOGIST: ENRIQUE MELENDEZ
--- NOTE | 2021-04-19 07:22 | RAD REPORT ---
EXAM DESCRIPTION: RAD - Abdomen 1 View (KUB) - 04/19/2021 5:47 am CLINICAL HISTORY: eval sbo COMPARISON: Abdomen 1 View (KUB) dated 04/18/2021; Abdomen 1 View (KUB) dated 04/07/2021; Abdomen 1 Vie w (KUB) dated 04/06/2021; Abdomen 1 View (KUB) dated 04/05/2021; Abdomen Pelvis W Contrast dated 2021; Abdomen Pelvis W Contrast dated 04/04/2021 FINDINGS: Slight decreased small bowel dilatation centrally with diminished bowel gas. No acute osse ous abnormality.Visualized lungs are unremarkable.No abnormal calcifications. IMPRESSION: Mild decreased bowel gas and slight decreased small bowel dilatation. Overall, stable to minimally improved.
--- NOTE | 2021-04-19 08:54 | P.PN ---
Subjective Date of Service: 04/18/21 Chief Complaint: Recurrent small bowel obstruction Subjective: Improving (Patient feels much better, no pain, passing gas. no nausea or emesis) Physical Examination - Vital Signs Temperature: 97.0 F Blood Pressure: 167/76 Pulse: 55 Respirations: 18 Pulse Ox (%): 97 - Physical Exam General: Alert, In no apparent distress, Cooperative Neck: Supple Respiratory: Clear to auscultation bilaterally Gastrointestinal: Soft and benign, Non-distended, No tenderness, No masses, No rebound, No guarding Assessment And Plan - Current Problems (Diagnosis) (1) Crohn's disease Current Visit: No Status: Chronic Plan: - continue medical management - advance diet as tolerated - follow up with outpatient GI regarding maintenance therapy Qualifiers: Gastrointestinal tract location: unspecified location Digestive disease complication type: with intestinal obstruction Qualified Code(s): K50.912 - Crohn's disease, unspecified, with intestinal obstruction
--- NOTE | 2021-04-19 08:55 | P.PN ---
Subjective Date of Service: 04/19/21 Chief Complaint: Recurrent small bowel obstruction Subjective: Improving Review of Systems 10-point ROS is otherwise unremarkable Physical Examination - Vital Signs Temperature: 97.0 F Blood Pressure: 167/76 Pulse: 55 Respirations: 18 Pulse Ox (%): 97 - Physical Exam General: Alert, In no apparent distress, Cooperative Respiratory: Clear to auscultation bilaterally Cardiovascular: Regular rate/rhythm Gastrointestinal: Soft and benign, Non-distended, No tenderness, No masses, No rebound, No guarding Assessment And Plan - Current Problems (Diagnosis) (1) Crohn's disease Current Visit: No Status: Chronic Plan: - continue medical management - advance diet as tolerated - follow up with outpatient GI regarding maintenance therapy Qualifiers: Gastrointestinal tract location: unspecified location Digestive disease complication type: with intestinal obstruction Qualified Code(s): K50.912 - Crohn's disease, unspecified, with intestinal obstruction
[2021-04-19] MEDS ORDERED: CETIRIZINE HCL 5 MG TABLET PO SCH (09:00)
[2021-04-19] MEDS ORDERED: POTASSIUM 25 MEQ EFFERV TAB PO ONE (09:00)
[2021-04-19] MEDS ORDERED: BUPROPION HCL XL 150 MG TAB PO SCH (09:00)
[2021-04-19] MEDS ORDERED: ATORVASTATIN 10 MG TAB PO SCH (09:00)
[2021-04-19] MEDS ORDERED: lisinopriL 5 MG TAB PO SCH (09:00)
[2021-04-19] MEDS ORDERED: LEVOTHYROXINE SOD 0.025 MG TAB PO SCH (09:00)
[2021-04-19 09:05] LABS: Urine Appearance CLEAR (Clear); Urine Bilirubin NEGATIVE (Negative); Urine Blood NEGATIVE (Negative); Urine Color YELLOW (Yellow); Urine Glucose NEGATIVE (Negative); Urine Microscopic Reflex NO UMIC; Urine Protein NEGATIVE (Negative); Urine Specific Gravity <=1.005 (1.005-1.030); Urine Urobilinogen 0.2 mg/dL (0.2-1.0); Urine pH 5.5 (5.0-7.0)
--- NOTE | 2021-04-19 09:44 | P.DS ---
Admission Date: 04/17/21 Discharge Date: 04/19/21 Disposition: ROUTINE DISCHARGE Reason for Admission: Recurrent small bowel obstruction - Problems (1) Small bowel obstruction Current Visit: No Status: Acute (2) Crohn's disease Current Visit: No Status: Chronic Qualifiers: Gastrointestinal tract location: unspecified location Digestive disease complication type: with intestinal obstruction Qualified Code(s): K50.912 - Crohn's disease, unspecified, with intestinal obstruction (3) Depression Current Visit: No Status: Chronic Qualifiers: Depression Type: unspecified Qualified Code(s): F32.A - Depression, unspecified (4) Hypertension Current Visit: No Status: Chronic Qualifiers: (5) Hypothyroidism Current Visit: No Status: Chronic Qualifiers: Hospital Course: Patient is a 65-year-old female with known history of Crohn's disease and recurrent bowel obstructions. She was admitted with another small bowel obstruction after she presented with epigastric pain. She has responded to conservative therapy which mainly consisted of bowel rest and IV fluid. No NG tube was placed. Her diet was advanced. She is now having bowel movement. She is due for a treatment of Infliximab in 3 days. Vital Signs/Physical Exam: Temp Pulse Resp BP Pulse Ox 97.0 F 55 18 167/76 H 97 04/19/21 08:55 04/19/21 08:55 04/19/21 08:55 04/19/21 08:55 04/19/21 08:55 General: Alert, In no apparent distress, Cooperative HEENT: Atraumatic, Normocephalic Neck: Supple Respiratory: Clear to auscultation bilaterally, Normal air movement Cardiovascular: Regular rate/rhythm, Normal S1 S2, Systolic murmur Gastrointestinal: Normal bowel sounds, Soft and benign, Non-distended Musculoskeletal: No clubbing, No swelling, No contractures, No erythema Neurological: Normal speech, Normal affect Laboratory Data at Discharge: WBC 8.90 K/uL (4.3-10.9) 04/19/21 05:55 Hgb 11.8 g/dL (12.0-15.0) L 04/19/21 05:55 Hct 34.9 % (36.0-45.0) L 04/19/21 05:55 Plt Count 285 K/uL (152-406) 04/19/21 05:55 Sodium 140 mmol/L (136-145) 04/19/21 05:55 Potassium 3.7 mmol/L (3.5-5.1) 04/19/21 05:55 BUN 9 mg/dL (7-18) 04/19/21 05:55 Creatinine 1.01 mg/dL (0.55-1.3) 04/19/21 05:55 Glucose 151 mg/dL (74-106) H 04/19/21 05:55 Magnesium 2.1 mg/dL (1.8-2.4) 04/19/21 05:55 Total Bilirubin 0.3 mg/dL (0.2-1.0) 04/19/21 05:55 AST 14 U/L (15-37) L 04/19/21 05:55 ALT 24 U/L (12-78) 04/19/21 05:55 Alkaline Phosphatase 69 U/L (45-117) 04/19/21 05:55 Lipase 104 U/L (73-393) 04/16/21 23:51 Home Medications: Levothyroxine Sodium 25 mcg PO DAILY 07/27/20 Sertraline [Zoloft*] 200 mg PO BEDTIME 07/27/20 buPROPion HCL [Bupropion HCl] 150 mg PO DAILY 12/10/20 Ondansetron [Zofran (Odt)*] 4 mg PO Q6H PRN #10 tab 03/08/21 Acetaminophen 160 mg PO Q4HR PRN 04/05/21 Atorvastatin Calcium 10 mg PO DAILY 04/05/21 Cetirizine HCl [Zyrtec] 10 mg PO DAILY 04/05/21 Hyoscyamine Sulfate [Levsin TAB*] 0.125 mg PO Q4H PRN 04/05/21 Lisinopril [Zestril] 5 mg PO DAILY 04/05/21 Metoprolol Succinate [Toprol Xl*] 50 mg PO BID 04/05/21 predniSONE [Prednisone*] 10 mg PO SEECOM 04/17/21 Followup: NONE,NONE [Primary Care Provider] -
[2021-04-19] MEDS: PANTOPRAZOLE 40 MG INJ IVP SCH (09:50)
[2021-04-19] MEDS: METOPROLOL XL 50 MG TAB PO SCH (09:50)
[2021-04-19] MEDS: ENOXAPARIN 40 MG/0.4 ML SQ SCH (09:52)
== END 2021-04-19 11:00 | disposition home or self-care (01) | DRG 386 ==
LOC: ER 23:33 → ERHOLD 04-17 02:16 → 2ND 04-17 03:43
PROVIDERS: ADMIT Internal Medicine; ATTEND Internal Medicine
DX: K50.812 Crohn's disease of both small and large intestine with intestinal obstruction (principal); Z68.41 Body mass index [BMI] 40.0-44.9, adult; E66.01 Morbid (severe) obesity due to excess calories; E03.9 Hypothyroidism, unspecified; F32.A Depression, unspecified; K21.9 Gastro-esophageal reflux disease without esophagitis; I10 Essential (primary) hypertension; R73.03 Prediabetes; Z88.8 Allergy status to other drugs, medicaments and biological substances; Z91.040 Latex allergy status; Z88.1 Allergy status to other antibiotic agents; Z79.890 Hormone replacement therapy; Z79.52 Long term (current) use of systemic steroids; Z79.899 Other long term (current) drug therapy
CPT/HCPCS: 36415; 74018; 74177; 80048; 80053; 80076; 81003; 81015; 82947; 83690; 83735; 85025; 93306; 96361; 96374; 96375; 99285; C9113; J1170; J1650; J2405; J2543; J2920; J2930; J7030; J7040; J7799; Q9967; U0003

== ENCOUNTER 2021-05-03 15:01 | Inpatient (IN) | payer BC ==
--- OUTSIDE RECORDS SUMMARY | 2021-05-03 15:05 | XMS REPORT | Continuity of Care Document ---
:1955 Author Organization [facility] t Address Formerly [facility] [place] [address] Care Team Providers Name Role Phone Kael MEADOWS MD, A Primary Care Physician Karin PARSONS Attending Clinician Ca VANN Attending Clinician Unavailable LUIS FELIPE Attending Clinician Unavailable KARIN Attending Clinician Unavailable Kaci PARSONS, R. Attending Clinician Yadira MURPHY Attending Clinician Unavailable Ca VANN Admitting Clinician Unavailable Payers Payer Name Policy Type Policy Number Effective Date Expiration Date S ource PPO/EPO - BCBS [id number] BCBS PPO POS EPO [id number] 2010 00:00:00 CHOICE Problems Condition Condition Condition Status Onset Resolution Last Treating Co mments Source Name Details Category Date Date Treatment Clinician Date Crohn's Crohn's Disease Active 2020-02 [facility] disease disease 2-22 [place] [facility] 00:[facility]: of 00 Medicin e Essential Essential Disease Active Met hodi hypertensi hypertensi 8-13 st on on 00:00: Hospita 00 l Chest pain Chest pain Disease Active M ethodi 2-02 st 00:00: Hospita 00 l 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 Social History Social Habit Start Date Stop Date Quantity Comments Source Exposure to Not sure [facility] Colle e of SARS-CoV-2 Medicine (event) History [facility] Drinks History [facility] Tobacco use and 2021-01-25 2021-01-25 Smokeless tobacco [facility] of exposure 00:00:00 00:00:00 non-user Medicine History SDOH 2018-03-19 2018-03-19 1 [facility] Frequency 00:00:00 00:00:00 Hospita l Alcohol intake 2018-03-19 2018-03-19 Current [facility] 00:00:00 00:00:00 non-drinker of Hospital alcohol (finding) Sex Ass[birth year] F [facility] Co llege of 00:00:00 00:00:00 Medicine Smoking Status Start Date Stop Date Source Never smoked tobacco [facility] Eric ege of Medicine Former smoker 2018-03-19 00:00:00 2018-03-19 00:00:[address] [facility] Medications Ordered Filled Start Stop Current Ordering Indication Dosage Frequency Signature Comments Components Source Medication Medication Date Date Medication? Clinician (SIG) Name Name MINERAL OIL 2021- No Take by Kamala albrecht OR 03-29 mouth. [place] 12:06: 00:00 of 07 :00 Medicin e MINERAL OIL 2021- No Take by Kamala albrecht OR 03-29 mouth. [place] 12:06: 00:00 of 07 :00 Medicin e Mesalamine 2021- No Take by Sixto ylor (PENTASA) 03-29 mouth. [place] 500 MG CPCR 12:04: 00:00 of 57 :00 Medicin e Mesalamine 2021- No Take by Sixto ylor (PENTASA) 03-29 mouth. [place] 500 MG CPCR 12:04: 00:00 of 57 [...] Take by Kamala albrecht us 03-29 mouth. [place] (ACIDOPHILU 12:03: 00:00 of S OR) 05 :00 Medicin e Cholecalcif Yes Take by Ba ylor alex 03-29 mouth. [place] (VITAMIN D) 11:46: of 125 MCG 58 Medicin (5000 UT) e CAPS Cholecalcif Yes Take by Ba ylor alex - mouth. [place] (VITAMIN D) 11:46: of 125 MCG 58 Medicin (5000 UT) e CAPS atorvastati Yes 10mg Take 10 mg [facility] n (LIPITOR) 2-11 by mouth Eric ege 10 MG 11:46: daily. of tablet 58 Medicin e Cetirizine Yes Take 1 Baylo r HCl (ZYRTEC 2-11 Chew Tab Eric ege ALLERGY) 10 11:46: by mouth of MG CAPS 58 daily. Medicin e hyoscyamine Yes .125mg Take 0.125 [facility] (LEVSIN) 2-11 mg by [place] 0.125 MG 11:46: mouth of tablet 58 every 4 Medicin hours as e needed for Cramping. metFORMIN Yes Take 1 [facility] 500 MG TB24 2-11 capsule [...] renea SUSP hours prn e predniSONE Yes [id number] 20mg Take 1 [facility] (DELTASONE) 2-11 Tablet by Col lege 20 MG 00:00: mouth of tablet 00 daily. Medicin Taper by 5 e mg every week. MINERAL OIL 2020-02 Yes Take by Sixto adams OR 2-10 mouth. [place] 09:20: of 34 Medicin e Cholecalcif 2020-02 Yes Take by Sixto adams alex 2-10 mouth. [place] (VITAMIN D) 09:20: of 125 MCG 34 Medicin (5000 UT) e CAPS ferrous 2020-02 Yes 325mg Take 325 Baylo r sulfate 2-10 mg by [place] (FEROSUL) 09:19: mouth of 325 (65 Fe) 41 daily. Medici n MG tablet e Mesalamine 2020-02 Yes Take by [facility] (PENTASA) 2-10 mouth. [place] 500 MG CPCR 09:19: of 41 Medicin e predniSONE 2020-02 Yes [facility] (DELTASONE) 03-13 College 20 MG 00:00: of tablet 00 Medicin e predniSONE 2020-02- No 20mg Take 20 mg Ran (DELTASONE) 03-13 by mouth Col lege 20 MG 00:00: 00:00 daily. of tablet 00 :00 Medicin e predniSONE 2020-02- No 20mg Take 20 mg [facility] (DELTASONE) 03-13 by mouth Col [...] Take 40 mg Ran e 02-27 by [facility] (PROTONIX) 00:00: daily. of 40 MG 00 Medicin tablet e pantoprazol 2020-02- No 40mg Take 40 mg [facility] e 02-27 by [facility] (PROTONIX) 00:00: 00:00 daily. of 40 MG 00 :00 Medicin tablet e pantoprazol 2020-02- No 40mg Take 40 mg Ran e 02-27 by [facility] (PROTONIX) 00:00: 00:00 daily. of 40 MG 00 :00 Medicin tablet e lisinopril 2020-02 Yes 1 po daily [facility] (PRINIVIL, 02-23 in [facility]) 5 00:00: morning of MG tablet 00 Medicin e lisinopril 2020-02 Yes 1 po daily [facility] (PRINIVIL, 02-23 in the College ZESTRIL) 5 00:00: morning of MG tablet 00 Medicin e lisinopril 2020-02 Yes 1 po daily [facility] (PRINIVIL, 08 in the [facility]) 5 00:00: morning of MG tablet 00 Medicin e sertraline 2020-02 Yes [facility] (ZOLOFT) 02-17 College 100 MG 00:00: of tablet 00 Medicin e buPROPion 2020-02 Yes TAKE 2 [facility] (WELLBUTRIN 1-02 TABLETS BY Co llRethinkDBe ) 75 MG 00:00: MOUTH of tablet 00 EVERY Medicin MORNING e AND 1 TABLET BY MOUTH EVERY EVENING sertraline 2020-02 Yes [facility] (ZOLOFT) 02-17 College 100 MG 00:00: of tablet 00 Medicin e buPROPion 2020-02 Yes TAKE 2 [facility] (WELLBUTRIN 1-02 TABLETS BY Co llege ) 75 MG 00:00: MOUTH of tablet 00 EVERY Medicin MORNING e AND 1 TABLET BY MOUTH EVERY EVENING sertraline 2020-02 Yes [facility] (ZOLOFT) 02-17 [place] 100 MG 00:00: of tablet 00 Medicin e buPROPion 2020-02 Yes TAKE 2 Ran (WELLBUTRIN 1-02 TABLETS BY Co llege ) 75 MG 00:00: MOUTH of tablet 00 EVERY Medicin MORNING e AND 1 TABLET BY MOUTH EVERY EVENING Adalimumab 2020-02 Yes [facility] (HUMIRA 0-25 [place] PEN) 40 00:00: of MG/0.8ML 00 Medicin injection e Adalimumab 2020-02- No [facility] (HUMIRA 0-25 -14 [place] PEN) 40 00:00: 00:00 of MG/0.8ML 00 :00 Medicin injection e levothyroxi Yes levothyrox [facility] 09-17 ine 25 mcg [place] (SYNTHROID) 00:00: tablet of 25 MCG 00 TAKE 1 Medicin tablet TABLET BY e MOUTH DAILY IN THE MORNING WITH JUST A SIP OF WATER. WAIT 30 MINUTES BEFORE EATING OR DRINKING ANYTHING levothyroxi Yes levothyrox [facility] 09-17 ine 25 mcg [place] (SYNTHROID) 00:00: tablet of 25 MCG 00 TAKE 1 Medicin tablet TABLET BY e MOUTH DAILY IN THE MORNING WITH JUST A SIP OF WATER. WAIT 30 MINUTES BEFORE EATING OR DRINKING ANYTHING levothyroxi Yes levothyrox [facility] 8-02 ine 25 mcg College (SYNTHROID) 00:00: tablet of 25 MCG 00 TAKE 1 Medicin tablet TABLET BY e MOUTH DAILY IN THE MORNING WITH JUST A SIP OF WATER. WAIT 30 MINUTES BEFORE EATING OR DRINKING ANYTHING lisinopriL- Yes [id number] 1{tbl} QD TAKE 1 [facility] hydrochloro 7-[address] thiazide 00:00: MOUTH Hospita (PRINZIDE) 00 DAILY l 10-12.5 mg per tablet metoprolol Yes [id number] TAKE 1 Me thodi tartrate 7-29 TABLET(50 st (LOPRESSOR) 00:00: MG) BY [facility]osp [facility] 50 mg 00 MOUTH l tablet TWICE DAILY metoprolol 2020- No [id number] TAKE 1 M ethodi tartrate 4-26 07-29 TABLET(50 st (LOPRESSOR) 00:00: 00:00 MG) BY Hos alba 50 mg 00 :00 MOUTH l tablet TWICE DAILY lisinopriL- 2020- No [id number] 1{tbl} QD TAKE 1 [facility] hydrochloro 4-26 07-[address] thiazide 00:00: 00:00 MOUTH Hospita (PRINZIDE) 00 :00 DAILY l 10-12.5 mg per tablet lisinopriL- 2020- No [id number] 1{tbl} QD Take 1 [facility] hydrochloro 1-25 04-[address] thiazide 00:00: 00:00 mouth Hospita (PRINZIDE) 00 :00 daily. l 10-12.5 mg per tablet metoprolol 2020- No [id number] 50mg Q.5D Take 1 M ethodi tartrate 1-25 04-26 tablet (50 st (LOPRESSOR) 00:00: 00:00 mg total) Hospita 50 mg 00 :00 by mouth 2 l tablet (two) times a day. lisinopril- 2020- No [id number] 1{tbl} QD TAKE 1 [facility] hydrochloro 1-30 01-[address] thiazide 00:00: 00:00 MOUTH Hospita (PRINZIDE) 00 :00 DAILY l 10-12.5 mg per tablet metoprolol 2020- No [id number] TAKE 1 M ethodi tartrate 03-17 01-25 TABLET(50 st (LOPRESSOR) 00:00: 00:00 MG) BY Hos alba 50 mg 00 :00 MOUTH l tablet TWICE DAILY sertraline Yes sertraline [facility] (ZOLOFT) 50 02-17 50 mg College MG tablet 00:00: tablet of 00 Medicin e sertraline 2021- No sertraline Ran (ZOLOFT) 50 02-17- 50 mg Colleg e MG tablet 00:00: 00:00 tablet of 00 :00 Medicin e sertraline 2021- No sertraline [facility] (ZOLOFT) 50 02-17- 50 mg [...] mvit,calc,m Yes Take by [facility] in-folic 8- mouth. st [id number] 16:39: Hospita 200 mcg 47 l tablet [...] Source Body weight 2021-03-29 17:28:00 [facility] BMI 2021-03-29 17:28:00 46.10 kg/m2 [facility] Medicine Systolic blood 2021-03-29 17:28:00 143 mm[Hg] [facility] pressure Medicine Diastolic blood 2021-03-29 17:28:00 82 mm[Hg] [facility] Medicine Heart rate 2021-03-29 17:28:00 60 /min [facility] Body temperature 2021-03-29 17:28:00 36.22 [facility] Respiratory rate 2021-03-29 17:28:00 16 /min [facility] Body height 2021-03-29 17:28:00 [facility]9 [facility] Body height 2021-03-01 15:04:00 154.9 [facility] Body weight 2021-03-01 15:04:00 107.593 [facility] BMI 2021-03-01 15:04:00 44.82 kg/m2 [facility] HEIGHT 2021-02-03 05:20:00 154.9 cm WEIGHT 2021-02-03 05:20:00 106.505 kg HEIGHT 2021-02-03 05:20:00 154.9 cm WEIGHT 2021-02-03 05:20:00 106.505 kg Systolic blood 2021-01-25 15:06:00 122 mm[Hg] [facility] pressure Medicine Diastolic blood 2021-01-25 15:06:00 80 mm[Hg] [facility] Medicine Heart rate 2021-01-25 15:06:00 81 /min [facility] Body temperature 2021-01-25 15:06:00 36.28 [facility] Respiratory rate 2021-01-25 15:06:00 14 /min [facility] Body height 2021-01-25 15:06:00 154.9 cm [facility] Body weight 2021-01-25 15:06:00 106.142 kg [facility] BMI 2021-01-25 15:06:00 44.21 kg/m2 [facility] Procedures This patient has no known procedures. Plan of Care Planned Activity Planned Date Details Comments Source Future Scheduled 2021-04-04 Screening for malignant [facility] Test 13:40:02 neoplasm of colon Medicine (procedure) [code = 651622636] Future Scheduled 2021-04-04 Screening for malignant [facility] Test 13:40:02 neoplasm of breast Medicine (procedure) [code = 193326246] Future Scheduled 2021-04-04 TETANUS SHOT (ADULT) [facility] Test 13:40:02 [code = TETANUS SHOT Medicin e (ADULT)] Future Scheduled 2021-04-04 BMI FOLLOW UP PLAN [code [facility] Test 13:40:02 = BMI FOLLOW UP PLAN] Medici ne Future Scheduled 2021-04-04 Hepatitis C screening [facility] Test 13:40:02 (procedure) [code = Medicine 971691965] Future Scheduled 2021-04-04 Human immunodeficiency B [facility] Test 13:40:02 virus screening Medicine (procedure) [code = 076802437] Future Scheduled 2021-04-04 Screening for malignant [facility] Test 13:40:02 neoplasm of cervix Medicine (procedure) [code = 466894954] Future Scheduled 2021-04-04 ZOSTER VACCINE (1 of 2) [facility] Test 13:40:02 [code = ZOSTER VACCINE (1 Me dicine of 2)] Future Scheduled 2021-04-04 FLU VACCINE > 6 MONTHS B [facility] Test 13:40:02 [code = FLU VACCINE > 6 Medi cine MONTHS] Future Scheduled 2021-04-04 COVID-19 Vaccine (2 - Ba [facility] of Test 13:40:02 Pfizer 3-dose series) Medici ne [code = COVID-19 Vaccine (2 - Pfizer 3-dose series)] Future Scheduled 2021-04-04 Screening for malignant [facility] Test 13:40:02 neoplasm of colon Medicine (procedure) [code = 754796682] Future Scheduled 2021-04-04 Screening for malignant [facility] Test 13:40:02 neoplasm of breast Medicine (procedure) [code = 766064606] Future Scheduled 2021-04-04 TETANUS SHOT (ADULT) [facility] of Test 13:40:02 [code = TETANUS SHOT Medicin e (ADULT)] Future Scheduled 2021-04-04 BMI FOLLOW UP PLAN [code [facility] Test 13:40:02 = BMI FOLLOW UP PLAN] Medici ne Future Scheduled 2021-04-04 Hepatitis C screening [facility] Test 13:40:02 (procedure) [code = Medicine 967785794] Future Scheduled 2021-04-04 Human immunodeficiency B [facility] Test 13:40:02 virus screening Medicine (procedure) [code = 523524506] Future Scheduled 2021-04-04 Screening for malignant [facility] Test 13:40:02 neoplasm of cervix Medicine (procedure) [code = 739992460] Future Scheduled 2021-04-04 ZOSTER VACCINE (1 of 2) [facility] Test 13:40:02 [code = ZOSTER VACCINE (1 Me dicine of 2)] Future Scheduled 2021-04-04 FLU VACCINE > 6 MONTHS B [facility] Test 13:40:02 [code = FLU VACCINE > 6 Medi cine MONTHS] Future Scheduled 2021-04-04 COVID-19 Vaccine (2 - Ba [facility] Test 13:40:02 Pfizer 3-dose series) Medici ne [code = COVID-19 Vaccine (2 - Pfizer 3-dose series)] Future Scheduled 2021-01-25 Screening for malignant [facility] Test 09:15:59 neoplasm of colon Medicine (procedure) [code = 289048504] Future Scheduled 2021-01-25 Screening for malignant [facility] Test 09:15:59 neoplasm of breast Medicine (procedure) [code = 877685259] Future Scheduled 2021-01-25 TETANUS SHOT (ADULT) [facility] of Test 09:15:59 [code = TETANUS SHOT Medicin e (ADULT)] Future Scheduled 2021-01-25 Hepatitis C screening [facility] of Test 09:15:59 (procedure) [code = Medicine 147821492] Future Scheduled 2021-01-25 Human immunodeficiency B [facility] of Test 09:15:59 virus screening Medicine (procedure) [code = 644192458] Future Scheduled 2021-01-25 Screening for malignant [facility] Test 09:15:59 neoplasm of cervix Medicine (procedure) [code = 206668649] Future Scheduled 2021-01-25 ZOSTER VACCINE (1 of 2) [facility] Test 09:15:59 [code = ZOSTER VACCINE (1 Me dicine of 2)] Future Scheduled 2021-01-25 FLU VACCINE > 6 MONTHS B [facility] of Test 09:15:59 [code = FLU VACCINE > 6 Medi cine MONTHS] Future Scheduled 2021-01-25 COVID-19 Vaccine (2 - Ba [facility] Test 09:15:59 Pfizer 2-dose series) Medici ne [code = COVID-19 Vaccine (2 - Pfizer 2-dose series)] Future Scheduled COVID-19 VACCINE (1) [facility] Test [code = COVID-19 VACCINE Hos pital (1)] Future Scheduled Hepatitis C screening [facility] Test (procedure) [code = Hospital 684935929] Future Scheduled Screening for malignant [facility] neoplasm of cervix Hospital (procedure) [code = 035190755] Future Scheduled BREAST CANCER SCREENING [facility] [code = BREAST CANCER Hospit al SCREENING] Future Scheduled COLONOSCOPY SCREENING [facility] Test [code = COLONOSCOPY Hospital SCREENING] Future Scheduled SHINGLES VACCINES (#1) M ethodist Test [code = SHINGLES VACCINES Ho spital (#1)] Future Scheduled INFLUENZA VACCINE [code = [facility] INFLUENZA VACCINE] Hospital Encounters Start End Encounter Admission Attending Care Care Encounter Source Date/Time Date/Time Type Type Clinicians Facility Department ID 2021-04-22 2021-04-22 Outpatient [facility] [id number] [facility] 08:34:02 23:59:00 Colleg e of Medicin e 2021-04-08 2021-04-08 Outpatient [facility] [id number] [facility] 08:22:34 23:59:00 Colleg e of Medicin e 2021-03-29 2021-03-29 Office ADINA Frazier [id number] [facility] 11:00:00 13:34:50 Visit Manreet AMBULATOR 350.1.13.21 College Y 0.2.7.2.686 of [id number] Medi renea 325 e 2021-03-01 2021-03-01 Office ADINA Frazier [id number] [facility] 09:00:00 11:07:59 Visit Manreet AMBULATOR 350.1.13.21 College Y 0.2.7.2.686 of [id number] [facility] 325 e 2021-02-03 2021-02-06 Inpatient ER PAULO BRISCO[facility] 3 [id number] [facility] 05:14:00 16:07:00 OBINNA 2021-01-25 2021-01-25 Office ADINA FRAZIER [id number] [facility] 00:00:00 19:54:04 Visit MANREET AMBULATOR 350.1.13.21 College Y 0.2.7.2.686 of [id number] [facility] 325 e 2020-09-12 2020-09-12 Refevan Clemons 1.2.840.1 [id number] Methodi 00:00:00 00:00:00 Ace Taylor [address] 3.430.2.7 Hospit a .3.713215 l .8 2020-06-11 2020-06-11 Refevan Clemons 1.2.840.1 [id number] Methodi 00:00:00 00:00:00 Ace Taylor [address]883.1.[address] 3.430.2.7 Hospit a .3.468829 l .8 2020-03-12 2020-03-12 Javier Kelly 1.2.840.1 [id number] Methodi 00:00:00 00:00:[address] 3.430.2.7 Hospit a .3.570814 l .8 Results Test Description Test Time Test Comments Results Result Comments Source HEPATITIS B PANEL 2021-02-06 20:49:20 Test Item Value Reference Range Interpretation Comme nts HEPATITIS B CORE TOTAL ANTIBODY (BEAKER) (test code = Nonreactive Nonreactive 497) HEPATITIS B SURFACE ANTIBODY (BEAKER) (test code = 647) < mIU/mL <8.0 HEPATITIS B SURFACE ANTIGEN (2) (BEAKER) (test code = Nonreactive Nonreactive 2585) Hazardous Materials Handler ID - BSOperator ID - BSVITAMIN D, [id number] 18:58:29 Test Item Value Reference Range Interpretation Comments VITAMIN D 25-OH (BEAKER) (test 48.0 ng/mL 6.6-49.9 code = 2764) Effective 11/26/2016: Reference Range ChangeNew: 6.6-49.9 ng/mL Previous: 13.0-47.8 ng/mLRecommended Vitamin D Target Range: 30.0-40.0 ng/mLOperator ID - BSC. DIFFICILE GDH [id number] 13:19:34 Test Item Value Reference Range Interpretation Comments CDT TOXIN (test code Negative Negative = [id number]) CDT GDH ANTIGEN (test Negative Negative No ind ication of code = 0508307387) Clostridi um difficile infection and n o colonization. Discontinue ent randy isolation and t herapy. Testing performed by [email or web address] Rapid Cassette Assay. For GDH, published sensitivity of the assay is 98.7% compared to cytotoxicity testing. For Toxin AB, published sensitivity is 87.8% and specificity 99.4% compared to cytotoxicity testing.Verification of kit performance was done by the [facility] Microbiology Lab prior to clinical use.BASIC METABOLIC [id number] 05:52:32 Test Item Value Reference Range Interpretation [...] S NOT APPLICABLE FOR DIALYSIS PATIEN TS. Hazardous Materials Handler ID - PIAYA LCBC (HEMOGRAM ONLY)2021-02-06 05:38:48 [...] (BEAKER) (test code = 413) BASIC METABOLIC [id number] 05:38:29 Test Item Value Reference Range Interpretation [...] S NOT APPLICABLE FOR DIALYSIS PATIEN TS. Hazardous Materials Handler ID - DEANNA MC-REACTIVE [id number] 05:38:29 Test Item Value Reference Range Interpretation Comments C-REACTIVE PROTEIN (BEAKER) (test 3.86 mg/dL 0.00-0.50 H code = 676) Hazardous Materials Handler ID - DEANNA MCBC (HEMOGRAM ONLY)2021-02-05 05:28:27 [...] 0-0 (BEAKER) (test code = 413) CT, [id number] 16:56:00Unlisted Reason for Exam - Click Yes and Enter Reason Below->NoIs this for enterography?->NoWill this procedure require oral contrast?->No [facility]ENTER[facility]ESH [facility]OA : 1955 Sex: FFINAL [...] MDReport Verified Date/Time: 02/04/2021 16:56:27 Reading Location: [facility] Diagnostic Imaging Reading Room - [place] [id number] VITAMIN B12 AND [id number] 07:14:11 Test Item Value Reference Range Interpretation Comments VITAMIN B12 187 pg/mL 213-816 L (BEAKER) (test code = 774) FOLATE (BEAKER) 18.90 ng/mL See_Comment [Automated message] (test code = 362) The system which generated this result transmitted ref erence range: >=7.00. The reference range was not used to interpr et this result as normal/abnormal . Hazardous Materials Handler ID - LIDA [id number] 07:14:10 Test Item Value Reference Range Interpretation Comments FERRITIN (BEAKER) (test code = 110.79 ng/mL 5.00-275.00 361) Hazardous Materials Handler ID - LIDA FIRON, TIBC, % SAT. (WITHOUT FERRITIN)2021-02-04 06:55:40 Test Item Value Reference Range Interpretation Comments IRON (BEAKER) (test code = 547) 75.0 ug/dL 40.0-160.0 TOTAL IRON BINDING CAPACITY 258 ug/dL 250-450 (BEAKER) (test code = 769) IRON % SATURATION (2) (BEAKER) 29 % 20-55 (test code = 2590) Hazardous Materials Handler ID - LIDA FHEPATIC FUNCTION [id number] 16:57:11 Test Item Value Reference Range Interpretation [...] Specimen slightly (test code = 347) hemolyzed Hazardous Materials Handler ID - PINANCIE LHEMOGLOBIN [id number] 12:28:44 Test Item Value Reference Range Interpretation Comments HEMOGLOBIN A1C (BEAKER) (test code = 5.3 % 4.3-6.1 368) [id number] 09:47:42 Test Item Value Reference Range Interpretation Comments PHOSPHORUS (BEAKER) 3.5 mg/dL 2.3-4.7 Specimen slightly (test code = 604) hemolyzed Hazardous Materials Handler ID - PIAYA LBASIC METABOLIC [id number] 09:47:42 Test Item Value Reference Range Interpretation [...] S NOT APPLICABLE FOR DIALYSIS PATIEN TS. Hazardous Materials Handler ID - PIAYA [id number] 09:47:41 Test Item Value Reference Range Interpretation Comments MAGNESIUM (BEAKER) 2.2 mg/dL 1.6-2.6 Specimen slightly (test code = 627) hemolyzed Hazardous Materials Handler AMADA PERZAA LC-REACTIVE [id number] 09:45:23 Test Item Value Reference Range Interpretation Comments C-REACTIVE PROTEIN (BEAKER) (test 3.67 mg/dL 0.00-0.50 H code = 676) Hazardous Materials Handler AMADA PERAZA LCBC W/PLT COUNT & AUTO [id number] 09:23:38 Test Item Value Reference Range Interpretation [...] code = 2801) RAD, ABDOMEN/KUB, 1 VIEW [id number] 07:28:00Reason for exam:->NGT tube placementShould this be performed at the bedside?->Yes [facility] 1955 Sex: FFINAL REPORT RAD, ABDOMEN/KUB, 1 VIEW AP INDICATION: NGT tube placementCOMPARISON: None TECHNIQUE: Limited portable radiograph of the lower chest and upper abdomen was acquired for purposes of evaluating tube placement FINDINGS/IMPRESSION:NG side-port overlies the stomach Signed: Rory Quiroga Verified Date/Time: 02/03/2021 07:28:00
[2021-05-03 20:37] LABS: Absolute Lymphocytes (CBC) 2.7 K/uL (0.7-4.9); Hematocrit 38.7 % (36.0-45.0); Lymphocytes % 32.6 % (15.3-44.8); MPV 7.1 fL (7.6-11.3); RBC Red Blood Cell Count 4.32 M/uL (3.86-4.86)
[2021-05-03] MEDS ORDERED: MORPHINE 4 MG/ML SYR ONE (20:40)
[2021-05-03] MEDS ORDERED: NA CHLORIDE 0.9% 1,000 ML ONE (20:41)
[2021-05-03] MEDS ORDERED: ONDANSETRON 4 MG/2 ML VIAL ONE (20:41)
[2021-05-03 20:52] LABS: Urine Blood Negative (Negative); Urine Glucose Negative (Negative); Urine Protein Negative (Negative)
[2021-05-03 20:59] LABS: Albumin 3.2 g/dL (3.4-5.0); Bilirubin Total 0.5 mg/dL (0.2-1.0); Potassium 3.5 mmol/L (3.5-5.1); Protein, Total 6.8 g/dL (6.4-8.2)
--- NOTE | 2021-05-03 22:15 | RAD REPORT ---
EXAM DESCRIPTION: CTAbdomen Pelvis W Contrast - 05/03/2021 9:53 pm CLINICAL HISTORY: Abdominal pain. ABD PAIN COMPARISON: Abdomen Pelvis W Contrast dated 04/17/2021; Abdomen Pelvis W Contrast dated 04/04/2021; Abdomen Pelvis W Contrast dated 03/07/2021; Abdomen Pelvis W Contrast dated 02/02/2021 TECHNIQUE: Biphasic CT imaging of the abdomen and pelvis was performed with 100 ml non-ionic IV cont rast. All CT scans are performed using dose optimization technique as appropriate and may include automated exposure control or mA/KV adjustment according to patient size. FINDINGS: The lung bases are clear. The liver, spleen, pancreas, adrenal glands and kidneys are within normal limits. Bilateral renal cys ts are present, benign in appearance. Multiple moderately dilated small bowel loops are seen in the central abdomen likely mechanical small -bowel obstruction. This is likely attributable to adhesions/ scarring present in the right lower fay drant (image 67/92). Mild sigmoid diverticulosis is present without diverticulitis. Nonvisualized parth endix. Small fat containing umbilical hernia. No evidence of significant lymphadenopathy. No free intraperitoneal air is seen. No free fluid or abscess. Mild lumbosacral degenerative changes. IMPRESSION: Moderate mechanical small-bowel obstruction is present. No pneumoperitoneum is seen.
[2021-05-03 22:22] LABS: Urine Bacteria 20-50 /HPF (<20); Urine RBC <5 /HPF (NONE SEEN)
--- NOTE | 2021-05-03 23:13 | EDPHYS ---
Physician Documentation [facility] Name: Kindra Novoa Age: 65 yrs Sex: Female : 1955 Arrival Date: 05/03/2021 Time: 15:03 Bed 25 Private MD: Moriah Vasquez ED Physician Chad Xiong HPI: 05/03 20:30 This 65 yrs old Female presents to ER via Wheelchair with complaints of crohns cp flare- pain. 20:30 The patient presents with abdominal pain mid abdomen. cp 20:30 Onset: The symptoms/episode began/occurred 3 day(s) ago. The symptoms do not radiate. cp Associated signs and symptoms: Pertinent positives: diarrhea, nausea, Pertinent negatives: blood in stools, chest pain, constipation, dysuria, fever, vomiting. The symptoms are described as constant. Modifying factors: the symptoms are aggravated by movement, pressure. Severity of pain: in the emergency department the pain is unchanged despite home interventions. 20:30 The patient has experienced similar episodes in the past, multiple times, today's cp symptoms are similar, to previous flare up of Crohn's disease. Historical: - Allergies: 15:48 Ciprofloxacin; ll1 15:48 Flagyl; ll1 15:48 Latex, Natural Rubber; ll1 - PMHx: 15:48 Colitis; Crohn's Disease; Depression; Hypertension; Hypothyroidism; Insulin Resistance; ll1 - PSHx: 15:48 None; ll1 - Immunization history:: Client reports having NOT received the Covid vaccine. Flu vaccine status is unknown. - Social history:: Smoking status: Patient denies any tobacco usage or history of. ROS: 20:35 Constitutional: Negative for body aches, chills, fever, poor PO intake. cp 20:35 Eyes: Negative for injury, pain, redness, and discharge. cp 20:35 ENT: Negative for ear pain, sore throat, difficulty swallowing, difficulty handling secretions. 20:35 Cardiovascular: Negative for chest pain, edema, palpitations. 20:35 Respiratory: Negative for cough, shortness of breath, wheezing. 20:35 Abdomen/GI: Positive for abdominal pain, nausea, diarrhea, Negative for vomiting, constipation, black/tarry stool, rectal bleeding. 20:35 : Negative for urinary symptoms. 20:35 Neuro: Negative for altered mental status, headache, weakness. 20:35 All other systems are negative. Exam: 20:40 Constitutional: The patient appears in no acute distress, alert, awake, cp non-diaphoretic, non-toxic, well developed, well nourished, uncomfortable. 20:40 Head/Face: Normocephalic, atraumatic. cp 20:40 Eyes: Periorbital structures: appear normal, Conjunctiva: normal, no exudate, no injection, Sclera: no appreciated abnormality, Lids and lashes: appear normal, bilaterally. 20:40 ENT: External ear(s): are unremarkable, Nose: is normal, Mouth: Lips: moist, Oral mucosa: moist, Posterior pharynx: Airway: no evidence of obstruction, patent. 20:40 Chest/axilla: Inspection: normal, Palpation: is normal, no crepitus, no tenderness. 20:40 Cardiovascular: Rate: normal, Rhythm: regular, Edema: is not appreciated, JVD: is not appreciated. 20:40 Respiratory: the patient does not display signs of respiratory distress, Respirations: normal, no use of accessory muscles, no retractions, labored breathing, is not present, Breath sounds: are clear throughout, no decreased breath sounds, no stridor, no wheezing. 20:40 Abdomen/GI: Inspection: distension, that is moderate, Bowel sounds: active, all quadrants, Palpation: soft, in all quadrants, moderate abdominal tenderness, in the mid abdomen, rebound tenderness, is not appreciated, voluntary guarding, is elicited in the mid abdomen. 20:40 Back: CVA tenderness, is absent. 20:40 Neuro: Orientation: to person, place \\T\\ time. Mentation: is normal, Motor: moves all fours, strength is normal, Sensation: is normal. Vital Signs: 15:49 Pulse 82; Resp 16; Temp 98.2; Pulse Ox 97% ; Weight 107.95 kg; Height 5 ft. 1 in. ll1 (154.94 cm); Pain 10/10; 15:49 BP 131 / 72; ll1 20:10 BP 134 / 70; Pulse 69; Resp 18; Temp 97.8; Pulse Ox 99% ; cs9 22:03 BP 116 / 46; Pulse 78; Resp 18; Temp 97.9; Pulse Ox 98% ; cs9 15:49 Body Mass Index 44.97 (107.95 kg, 154.94 cm) ll1 MDM: 20:20 Patient medically screened. 23:15 Data reviewed: vital signs, nurses notes, lab test result(s), radiologic studies, CT cp scan. 23:15 Counseling: I had a detailed discussion with the patient and/or guardian regarding: the cp historical points, exam findings, and any diagnostic results supporting the discharge/admit diagnosis, lab results, radiology results, the need for further work-up and treatment in the hospital. Response to treatment: the patient's symptoms have mildly improved after treatment. Physician consultation: Ray Barroso was contacted at 23:10, regarding admission, to the medical/surgical unit. patient's condition, and will see patient in ED, shortly. 05/03 20:20 Order name: CBC with Diff; Complete Time: 21:15 cp 05/03 20:20 Order name: CMP; Complete Time: 21:15 cp 05/03 20:20 Order name: Lipase; Complete Time: 21:15 cp 05/03 20:20 Order name: Urine Microscopic Only; Complete Time: 23:10 cp 05/03 20:52 Order name: Urine Dipstick-Ancillary; Complete Time: 21:15 EDMS 05/03 20:53 Order name: Urine Culture 2 05/03 21:17 Order name: CT Abd/Pelvis - IV Contrast Only; Complete Time: 23:10 cp 05/03 23:10 Interpretation: Report reviewed. 05/03 22:39 Order name: COVID-19/FLU A+B (Document "Date of Onset" if Symptomatic) 05/04 00:22 Order name: Lactate la1 05/04 04:24 Order name: CBC with Automated Diff EDMS 05/04 04:32 Order name: Lactate EDMS 05/04 04:34 Order name: Comprehensive Metabolic Panel EDMS 05/03 20:20 Order name: IV Saline Lock; Complete Time: 20:40 cp 05/03 20:20 Order name: Labs collected and sent; Complete Time: 20:40 cp 05/03 20:20 Order name: Urine Dipstick-Ancillary (obtain specimen); Complete Time: 20:51 cp Administered Medications: 20:45 Drug: Zofran (Ondansetron) 4 mg Route: IVP; Site: left antecubital; bb 21:00 Follow up: Response: No adverse reaction bb 20:45 Drug: NS 0.9% 500 ml Route: IV; Rate: bolus; Site: left antecubital; bb :45 Follow up: IV Status: Completed infusion; IV Intake: 500ml bb :47 Drug: morphine 4 mg {Note: RASS 0.} Route: IVP; Site: left antecubital; bb 21:00 Follow up: Response: No adverse reaction; Pain is decreased; RASS: Alert and Calm (0) bb :45 Drug: NS 0.9% 500 ml Route: IV; Rate: 125 ml/hr; Site: left antecubital; bb 23:29 Drug: SOLU-Medrol (methylPrednisoLONE) 125 mg Route: IVP; Site: left antecubital; bb 23:47 Follow up: Response: No adverse reaction bb 23: Drug: Zosyn (piperacillin-tazobactam) 4.5 grams Route: IVPB; Infused Over: 60 mins; bb Site: left antecubital; 05/04 00:40 Not Given (Other Intervention Used): morphine 4 mg IVP once; RASS on ADMIN: Combtv4, bb Very Agttd3, Agttd2, Rstlss1, AlertClm0, Drwsy-1, Lt Sdtn-2, Mod Sdtn-3, Dp Sdtn-4, UnArsble-5 00:40 Not Given (Other Intervention Used): Zofran (Ondansetron) 4 mg IVP once; over 2 minutes bb Disposition: 05/05 09:35 Co-signature as Attending Physician, Chad Xiong MD I agree with the assessment and kdr plan of care. Disposition Summary: 05/03/21 23:12 Hospitalization Ordered Hospitalization Status: Inpatient Admission cp Provider: eKvin Costa cp Condition: Stable cp Problem: an acute exacerbation cp Symptoms: have improved cp Bed/Room Type: Standard cp Location: Telemetry/MedSurg (Inpatient)(05/04/21 17:21) ja1 Room Assignment: 407(05/04/21 17:21) ja1 Diagnosis - Small Bowel Obstruction cp Forms: - Medication Reconciliation Form cp - SBAR form cp Signatures: Dispatcher [employer] EDChad Chong MD MD kdr Ballard, Brenda, RN RN Esa Espino PA PA cp Garcia, Cindy, RN RN cg Helder Wilson RN RN ja1 Santo Ceballos RN RN 1 Corrections: (The following items were deleted from the chart) 05/03 23:48 23:12 Telemetry/MedSurg (Inpatient) cp cg 23:48 23:12 cp cg 05/04 17:21 05/03 23:48 [facility] ER HOLD cg ja 05/04 17:05/03 23:48 ERHOLD- cg [facility]
--- NOTE | 2021-05-03 23:13 | ER ---
Nurse's Notes [facility] Name: Kindra Novoa Age: 65 yrs Sex: Female : 1955 Arrival Date: 05/03/2021 Time: 15:03 Bed 25 Private MD: Moriah Vasquez Diagnosis: Small Bowel Obstruction Presentation: 05/03 15:49 Chief complaint: Patient states: Abd pain for 3 days. Diarrhea for 1 week. Coronavirus ll1 screen: Vaccine status: Patient reports being unvaccinated. Client denies travel out of the [place] in the last 14 days. At this time, the client does not indicate any symptoms associated with coronavirus-19. Ebola Screen: Patient denies travel to an Ebola-affected area in the 21 days before illness onset. Initial Sepsis Screen: Does the patient meet any 2 criteria? No. Patient's initial sepsis screen is negative. Does the patient have a suspected source of infection? Yes: Acute abdominal pain. Risk Assessment: Do you want to hurt yourself or someone else? Patient reports no desire to harm self or others. Onset of symptoms was April 26, 2021. 15:49 Method Of Arrival: Wheelchair ll1 15:49 Acuity: KAROL 3 ll1 Triage Assessment: 15:50 General: Appears uncomfortable, Behavior is calm, cooperative, appropriate for age. ll1 Pain: Complains of pain in abd. Historical: - Allergies: 15:48 Ciprofloxacin; ll1 15:48 Flagyl; ll1 15:48 Latex, Natural Rubber; ll1 - PMHx: 15:48 Colitis; Crohn's Disease; Depression; Hypertension; Hypothyroidism; Insulin Resistance; ll1 - PSHx: 15:48 None; ll1 - Immunization history:: Client reports having NOT received the Covid vaccine. Flu vaccine status is unknown. - Social history:: Smoking status: Patient denies any tobacco usage or history of. Screenin:30 Abuse screen: Denies threats or abuse. Nutritional screening: No deficits noted. bb Tuberculosis screening: No symptoms or risk factors identified. Fall Risk None identified. Assessment: 20:30 General: Appears uncomfortable, obese, Behavior is cooperative, anxious. Pain: bb Complains of pain in abdomen. Neuro: Level of Consciousness is awake, alert, obeys commands, Oriented to person, place, time, situation. Cardiovascular: Heart tones S1 S2 present Capillary refill < 3 seconds. Respiratory: Airway is patent Respiratory effort is even, unlabored, Respiratory pattern is regular. GI: Abdomen is distended, Bowel sounds diminished in right upper quadrant, left upper quadrant, right lower quadrant and left lower quadrant Abdomen is tender to palpation in right upper quadrant and left upper quadrant Reports nausea. Derm: Skin is pink, warm \T\ dry. 22:15 Reassessment: Patient is alert, oriented x 3, equal unlabored respirations, skin bb warm/dry/pink. IV site intact, patent, with fluids infusing, family at bedside. 23:45 Reassessment: Patient is alert, oriented x 3, equal unlabored respirations, skin bb warm/dry/pink. pt states pain is coming back. Report given to Miko ALVARADO pt IV site intact, patent with fluids infusing. Vital Signs: 15:49 Pulse 82; Resp 16; Temp 98.2; Pulse Ox 97% ; Weight 107.95 kg; Height 5 ft. 1 in. ll1 (154.94 cm); Pain 10/10; 15:49 BP 131 / 72; ll1 20:10 BP 134 / 70; Pulse 69; Resp 18; Temp 97.8; Pulse Ox 99% ; cs9 22:03 BP 116 / 46; Pulse 78; Resp 18; Temp 97.9; Pulse Ox 98% ; cs9 15:49 Body Mass Index 44.97 (107.95 kg, 154.94 cm) ll1 ED Course: 15:03 Patient arrived in ED. as 15:04 Moriah Vasquez is Private Physician. as 15:49 Arm band placed on. ll1 15:50 Triage completed. ll1 20:04 Esa Betts PA is PHCP. cp 20:04 Chad Xiong MD is Attending Physician. cp 20:30 Patient has correct armband on for positive identification. Placed in gown. Bed in low bb position. Call light in reach. Side rails up X 1. Adult w/ patient. Pulse ox on. NIBP on. Warm blanket given. 20:35 Estephania Thacker, CHRISTIANO is Primary Nurse. bb 20:40 CMP Sent. cs9 20:40 Lipase Sent. cs9 21:53 CT Abd/Pelvis - IV Contrast Only In Process Unspecified. EDMS 23:11 Kevin Costa MD is Hospitalizing Provider. cp 23:49 No provider procedures requiring assistance completed. Patient admitted, IV remains in bb place. Administered Medications: 20:45 Drug: Zofran (Ondansetron) 4 mg Route: IVP; Site: left antecubital; bb 21:00 Follow up: Response: No adverse reaction bb 20:45 Drug: NS 0.9% 500 ml Route: IV; Rate: bolus; Site: left antecubital; bb 21:45 Follow up: IV Status: Completed infusion; IV Intake: 500ml bb 20:47 Drug: morphine 4 mg {Note: RASS 0.} Route: IVP; Site: left antecubital; bb 21:00 Follow up: Response: No adverse reaction; Pain is decreased; RASS: Alert and Calm (0) bb :45 Drug: NS 0.9% 500 ml Route: IV; Rate: 125 ml/hr; Site: left antecubital; bb 23:29 Drug: SOLU-Medrol (methylPrednisoLONE) 125 mg Route: IVP; Site: left antecubital; bb 23:47 Follow up: Response: No adverse reaction bb 23:29 Drug: Zosyn (piperacillin-tazobactam) 4.5 grams Route: IVPB; Infused Over: 60 mins; bb Site: left antecubital; 05/04 00:40 Not Given (Other Intervention Used): morphine 4 mg IVP once; RASS on ADMIN: Combtv4, bb Very Agttd3, Agttd2, Rstlss1, AlertClm0, Drwsy-1, Lt Sdtn-2, Mod Sdtn-3, Dp Sdtn-4, UnArsble-5 00:40 Not Given (Other Intervention Used): Zofran (Ondansetron) 4 mg IVP once; over 2 minutes bb Intake: 05/03 21:45 IV: 500ml; Total: 500ml. bb Outcome: 23:12 Decision to Hospitalize by Provider. cp 23:48 Admitted to ER Hold. Please see [facility] for further documentation. bb 23:48 Condition: stable 23:48 Instructed on the need for admit. 05/04 18:41 Patient left the ED. ll1 Signatures: Dispatcher [employer] EDLaura Sharpe Brenda, RN RN bb Esa Betts PA PA cp Lewis, Lynsay RN RN ll1 Teresa Atkinson 9
[2021-05-03] MEDS ORDERED: PIPERACIL/TAZO 4.5 GM VIAL IV ONE (23:22)
[2021-05-03] MEDS ORDERED: METHYLPREDNISOLONE 125 MG INJ ONE (23:22)
[2021-05-03] MEDS ORDERED: NA CHLORIDE 0.9% 100 ML IV ONE (23:23)
--- NOTE | 2021-05-03 23:43 | P.HP ---
Certification for Inpatient Patient admitted to: Inpatient With expected LOS: >2 Midnights Patient will require the following post-hospital care: None Practitioner: I am a practitioner with admitting privileges, knowledge of patient current condition, hospital course, and medical plan of care. Services: Services provided to patient in accordance with Admission requirements found in Title 42 Section 412.3 of the Code of Federal Regulations Patient History Date of Service: 05/03/21 Reason for admission: SBO History of Present Illness: 65-year-old female who has frequent small obstructions, Crohn's presents emergency department with abdominal pain, last bowel movement this morning, has not had any gas at the day today. She was evaluated in the emergency department her labs were significant for unremarkable CT was positive for recurrent small bowel obstruction. Patient without severe abdominal distention/pain or active vomiting will hold off on NG tube at this time admit for further evaluation and management with surgical consult. Allergies ciprofloxacin Allergy (Verified 07/12/20 22:34) Itching/Hives/Rash latex [Latex] Allergy (Verified 05/12/11 07:41) Itching/Hives/Rash Latex, Natural Rubber Allergy (Verified 06/07/20 05:52) Unknown metronidazole Allergy (Verified 07/12/20 22:34) Itching/Hives/Rash buspirone Adverse Reaction (Verified 07/12/20 22:35) Nausea/Vomiting Home Medications: Levothyroxine Sodium 25 mcg PO DAILY 07/27/20 Sertraline [Zoloft*] 200 mg PO BEDTIME 07/27/20 buPROPion HCL [Bupropion HCl] 150 mg PO DAILY 12/10/20 Ondansetron [Zofran (Odt)*] 4 mg PO Q6H PRN #10 tab 03/08/21 Acetaminophen 160 mg PO Q4HR PRN 04/05/21 Atorvastatin Calcium 10 mg PO DAILY 04/05/21 Cetirizine HCl [Zyrtec] 10 mg PO DAILY 04/05/21 Hyoscyamine Sulfate [Levsin TAB*] 0.125 mg PO Q4H PRN 04/05/21 Lisinopril [Zestril] 5 mg PO DAILY 04/05/21 Metoprolol Succinate [Toprol Xl*] 50 mg PO BID 04/05/21 predniSONE [Prednisone*] 10 mg PO SEECOM 04/17/21 - Past Medical/Surgical History Diabetic: No -: HTN -: Prediabetes -: Hypothyroidism -: Depression -: Recurrent SBO -: GERD -: Psychosocial/ Personal History: Patient is . - Family History Father -: Cancer Notes: lung Cx Mother -: Heart disease - Social History Alcohol use: No CD- Drugs: No Caffeine use: Yes Place of Residence: Home Review of Systems 10-point ROS is otherwise unremarkable Gastrointestinal: Nausea, Abdominal Pain Physical Examination - Physical Exam General: Alert, In no apparent distress, Oriented x3 HEENT: Atraumatic, PERRLA, Mucous membr. moist/pink, EOMI, Sclerae nonicteric Neck: Supple, 2+ carotid pulse no bruit, No LAD, Without JVD or thyroid abnormality Respiratory: Clear to auscultation bilaterally, Normal air movement Cardiovascular: Regular rate/rhythm, Normal S1 S2 Gastrointestinal: Normal bowel sounds, Tenderness (Mild generalized abdominal tenderness) Musculoskeletal: No tenderness Integumentary: No rashes Neurological: Normal speech, Normal strength at 5/5 x4 extr, Normal tone, Normal affect - Studies Laboratory Data (last 24 hrs) 05/03/21 20:25: Sodium 142, Potassium 3.5, BUN 11, Creatinine 1.00, Glucose 97, Total Bilirubin 0.5, AST 16, ALT 21, Alkaline Phosphatase 103, Lipase 76 05/03/21 20:25: WBC 8.10, Hgb 13.0, Hct 38.7, Plt Count 296 Assessment and Plan - Plan Assessment: Recurrent small bowel obstruction with history of Crohn's hypertension hypothyroidism Plan: Recurrent small bowel obstruction with history of Crohn's: NPO, IVF, Zosyn, IV steroids, encourage ambulation. Surgical consult in place. Repeat KUB in AM. hypertension: PRN antihypertensives hypothyroidism: continue home meds when appropriate. DVT PPX: Lovenox Code status: Full Discharge Plan: Home Plan to discharge in: Greater than 2 days - Advance Directives Does patient have a Living Will: No Does patient have a Durable POA for Healthcare: No - Code Status/Comfort Care Code Status Assessed: Yes (Full code) Critical Care: No Time Spent Managing Pts Care (In Minutes): 55
[2021-05-03] MEDS ORDERED: ONDANSETRON 4 MG/2 ML VIAL IV PRN (23:59)
[2021-05-04] MEDS ORDERED: NA CHLORIDE 0.9% 1,000 ML ONE ×2 (00:12→08:22)
[2021-05-04] MEDS ORDERED: ONDANSETRON 4 MG/2 ML VIAL ONE (00:12)
[2021-05-04] MEDS ORDERED: FENTANYL CITR 100 MCG/2 ML IV ONE (00:14)
[2021-05-04] MEDS: NA CHLORIDE 0.9% 1,000 ML IV SCH ×3 (00:19→19:59)
[2021-05-04 00:29] LABS: SARS-COV-2 RT PCR NEGATIVE (NEGATIVE)
[2021-05-04] MEDS ORDERED: FENTANYL CITR 100 MCG/2 ML ONE (00:32)
[2021-05-04] MEDS ORDERED: METHYLPREDNISOLONE 40 MG INJ ONE ×3 (00:33→17:13)
[2021-05-04] MEDS: METHYLPREDNISOLONE 40 MG INJ IV SCH ×3 (00:34→17:13)
[2021-05-04 01:06] VITALS: BMI 44.9
[2021-05-04 04:22] LABS: Hematocrit 37.4 % (36.0-45.0); Lymphocytes % 14.3 % (15.3-44.8); MPV 7.3 fL (7.6-11.3); RBC Red Blood Cell Count 4.15 M/uL (3.86-4.86)
[2021-05-04 04:32] LABS: Albumin 2.9 g/dL (3.4-5.0); Bilirubin Total 0.6 mg/dL (0.2-1.0); Potassium 3.8 mmol/L (3.5-5.1); Protein, Total 6.4 g/dL (6.4-8.2)
--- NOTE | 2021-05-04 06:39 | P.PN ---
Date of Service: 05/04/21 Subjective: No significant change, may be slightly better, less distended/more soft No flatus/no BM overnight ROS: 10 point ROS as noted above, otherwise negative Physical exam GEN: Alert, oriented, NAD HEENT: Normal conjunctiva, sclera anicteric CV: Regular rate and rhythm, no edema Pulm: Nonlabored respiration on room air ABD: Soft, mild generalized abdominal tenderness Problem List Recurrent small bowel obstruction with history of Crohn's hypertension hypothyroidism NPO, IVF, Zosyn IV steroids, encourage ambulation. Surgical consult in place. Repeat KUB in AM. Continue antihypertensive as needed Continue home medications bowel rest Has not worked with PT yet Code: Full Dispo: Home, 2 days Time Spent Managing Pts Care (In Minutes): 35
[2021-05-04] MEDS ORDERED: KCL 20 MEQ/100 mL IVPB 20 MEQ/100 ML BAG IV SCH (08:00)
[2021-05-04] MEDS ORDERED: ENOXAPARIN 40 MG/0.4 ML SQ ONE (08:21)
[2021-05-04] MEDS ORDERED: PIPERACIL/TAZO 3.375 GM VIAL IV ONE ×2 (08:21→17:13)
[2021-05-04] MEDS ORDERED: MORPHINE 2 MG/ML SYR ONE ×2 (08:48→17:09)
[2021-05-04] MEDS ORDERED: NA CHLORIDE 0.9% 100 ML IV ONE ×2 (08:48→17:13)
[2021-05-04] MEDS: ENOXAPARIN 40 MG/0.4 ML SQ SCH (09:48)
[2021-05-04] MEDS: PIPER TAZO 3.375 GM in NA CHLORIDE 0.9% 100 ML IV SCH ×2 (09:49→17:13)
[2021-05-04] MEDS: MORPHINE 2 MG/ML SYR IV PRN ×2 (09:49→17:12)
[2021-05-04] MEDS ORDERED: KCL 20 MEQ/100 mL IVPB 100 ML IV ONE (10:11)
--- NOTE | 2021-05-04 23:22 | P.CNS ---
Date of Consult: 05/04/21 PC: This 65-year-old female presented to the emergency room with severe abdominal pain for diagnosis and treatment. HPC: Patient is known to have Crohn's disease. She has presented on numerous occasions with partial small bowel obstruction. I had seen her on one of her prior visits. She stated the pain became so severe she had a choice to come to the emergency room to try and get some relief. At the current time she feels somewhat better and has began to pass some flatus per rectum. 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 Social Hx: Allergies noted Sys R: No cough, wheeze, shortness of breath. Patient has a classic history however of sleep apnea. No urinary complaints. States she has been doing better with her abdominal pain, has been on this treatment for 2 months. O/E: Awake alert comfortable tonight HEENT: Within normal limits Chest: Chest movement equal bilaterally Abd: Soft nontender not tympanic anymore [place]: Intact Data: Strengths areas of narrowing small bowel. Impression: Patient has a history of probable strictures from her prior inflammatory disease episodes. Plan: Patient appears to be much improved this evening. She is is in good spirits. She states that her pain started to subside. Anticipate patient being started on a regular diet tomorrow, and anticipate discharge soon. She will follow-up with her truck cleaner, and maybe start conversations with her about having elective surgery. A sleep study as she has significant sleep apnea. May explain that while she gets so bloated when she sleeps .
[2021-05-05] MEDS: METHYLPREDNISOLONE 40 MG INJ IV SCH ×3 (00:13→16:30)
[2021-05-05] MEDS: PIPER TAZO 3.375 GM in NA CHLORIDE 0.9% 100 ML IV SCH ×3 (00:13→16:17)
[2021-05-05] MEDS: MORPHINE 2 MG/ML SYR IV PRN ×3 (00:14→23:30)
[2021-05-05] MEDS: NA CHLORIDE 0.9% 1,000 ML IV SCH ×2 (02:23→13:04)
[2021-05-05 03:56] LABS: Absolute Lymphocytes (CBC) 0.9 K/uL (0.7-4.9); Hematocrit 34.2 % (36.0-45.0); Lymphocytes % 13.5 % (15.3-44.8); MPV 7.2 fL (7.6-11.3); RBC Red Blood Cell Count 3.87 M/uL (3.86-4.86)
[2021-05-05 04:15] LABS: Albumin 2.9 g/dL (3.4-5.0); Bilirubin Total 0.4 mg/dL (0.2-1.0); Potassium 3.6 mmol/L (3.5-5.1); Protein, Total 6.3 g/dL (6.4-8.2)
[2021-05-05] MEDS ORDERED: KCL 20 MEQ/100 mL IVPB 20 MEQ/100 ML BAG IV SCH (06:00)
[2021-05-05] MEDS ORDERED: INFLUENZA VACCINE (for 6+ mo) 0.5 ML DOSE IMVAC ONE (09:00)
--- NOTE | 2021-05-05 09:31 | RAD REPORT ---
EXAM DESCRIPTION: RAD - Abdomen 1 View (KUB) - 05/05/2021 8:46 am CLINICAL HISTORY: f/u SBO COMPARISON: Abdomen 1 View (KUB) dated 04/19/2021; Abdomen Pelvis W Contrast dated 05/03/2021 FINDINGS: Multiple dilated small bowel loops are present. Pattern has improved slightly from the Apr imaging. No free air or pneumatosis identifiable. No suspicious calcifications. IMPRESSION: Multiple dilated small bowel loops showing a slight improvement from the May 03 CT chad ging.
[2021-05-05] MEDS: ENOXAPARIN 40 MG/0.4 ML SQ SCH (09:42)
--- NOTE | 2021-05-05 13:54 | P.PN ---
Date of Service: 05/05/21 Subjective: Passing flatus since yesterday afternoon, no BM Pain is less severe, less frequent, but still continues Feels slightly less distended ROS: 10 point ROS as noted above, otherwise negative Physical exam GEN: Alert, oriented, NAD HEENT: Normal conjunctiva, sclera anicteric CV: Regular rate and rhythm, no edema Pulm: Non-labored respiration on room air ABD: Soft, mild generalized abdominal tenderness Problem List Recurrent small bowel obstruction with history of Crohn's UTI hypertension hypothyroidism Decrease IV fluids, continue Zosyn Start clear liquid diet for lunch Repeat KUB with slight improvement General surgery consulted Urine growing Klebsiella pneumonia, patient denies any significant UTI symptoms, however states that she does not get symptoms with prior infections zosyn covers this for now, with ongoing abd pain, unclear if this is truly asymptomatic bacteriuria PT consulted Code: Full Dispo: Home, 1-2 days Time Spent Managing Pts Care (In Minutes): 35
--- NOTE | 2021-05-05 16:39 | P.PN ---
Date of Service: 05/05/21 S: Patient has no specific complaints today. States she feels much better actually had small BM today. O: Vital signs are stable, patient looks well, has been up ambulating. A: Partial small bowel obstruction appears to be relieved. P: Patient is easily much improved. Looks much more relaxed today. 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 She is going to also inquire about getting a sleep study done locally.
[2021-05-05] MEDS ORDERED: SERTRALINE HCL 100 MG TAB PO SCH (21:00)
[2021-05-06] MEDS: PIPER TAZO 3.375 GM in NA CHLORIDE 0.9% 100 ML IV SCH ×2 (00:37→08:47)
[2021-05-06] MEDS: METHYLPREDNISOLONE 40 MG INJ IV SCH ×2 (00:37→08:48)
[2021-05-06] MEDS: NA CHLORIDE 0.9% 1,000 ML IV SCH (00:38)
[2021-05-06 01:56] VITALS: O2SAT 99
[2021-05-06 03:49] LABS: Absolute Lymphocytes (CBC) 1.1 K/uL (0.7-4.9); Hematocrit 32.8 % (36.0-45.0); Lymphocytes % 16.4 % (15.3-44.8); MPV 7.3 fL (7.6-11.3); RBC Red Blood Cell Count 3.73 M/uL (3.86-4.86)
[2021-05-06 04:13] LABS: Albumin 2.9 g/dL (3.4-5.0); Bilirubin Total 0.3 mg/dL (0.2-1.0); Potassium 3.9 mmol/L (3.5-5.1)
[2021-05-06] MEDS ORDERED: POTASSIUM CL SA 10 MEQ TAB PO ONE ×2 (04:58→09:00)
--- NOTE | 2021-05-06 06:20 | P.PN ---
Date of Service: 05/06/21 Subjective: ROS: 10 point ROS as noted above, otherwise negative Physical exam GEN: Alert, oriented, NAD HEENT: Normal conjunctiva, sclera anicteric CV: Regular rate and rhythm, no edema Pulm: Non-labored respiration on room air ABD: Soft, mild generalized abdominal tenderness Problem List Recurrent small bowel obstruction with history of Crohn's UTI hypertension hypothyroidism Decrease IV fluids, continue Zosyn Start clear liquid diet for lunch Repeat KUB with slight improvement General surgery consulted Urine growing Klebsiella pneumonia, patient denies any significant UTI symptoms, however states that she does not get symptoms with prior infections zosyn covers this for now, with ongoing abd pain, unclear if this is truly asymptomatic bacteriuria PT consulted Code: Full Dispo: Home, 1-2 days Time Spent Managing Pts Care (In Minutes): 35
[2021-05-06] MEDS ORDERED: LEVOTHYROXINE SOD 0.025 MG TAB PO SCH (06:30)
[2021-05-06] MEDS: ENOXAPARIN 40 MG/0.4 ML SQ SCH (08:47)
[2021-05-06] MEDS ORDERED: ATORVASTATIN 10 MG TAB PO SCH (09:00)
[2021-05-06] MEDS ORDERED: BUPROPION HCL XL 150 MG TAB PO SCH (09:00)
[2021-05-06] MEDS ORDERED: BUPROPION HCL 75 MG PO SCH (09:00)
[2021-05-06 13:54] VITALS: BP 169/87; TEMP 97.7
--- NOTE | 2021-05-06 17:52 | P.DS ---
Admission Date: 05/03/21 Discharge Date: 05/06/21 Disposition: ROUTINE DISCHARGE Discharge Condition: GOOD Reason for Admission: SBO Consultations: General Surgery - Dr. Bella Procedures: Problem List Recurrent small bowel obstruction with history of Crohn's UTI hypertension hypothyroidism Brief History of Present Illness: 65-year-old female who has frequent small obstructions, Crohn's presents emergency department with abdominal pain, last bowel movement this morning, has not had any gas at the day today. She was evaluated in the emergency department her labs were significant for unremarkable CT was positive for recurrent small bowel obstruction. Patient without severe abdominal distention/pain or active vomiting will hold off on NG tube at this time admit for further evaluation and management with surgical consult. Hospital Course: Patient was found to have partial small bowel obstruction. Improved with bowel rest and IV hydration. She was empirically treated with IV antibiotics as well. On day of discharge she was passing flatus and had 2 small bowel movements She was also noted to have klebsiella in her urine concerning for UTI. Patient is discharged with 7 more days of antibiotic (augmentin). Follow up with PCP within 1 week. Follow up with GI as scheduled in the next few weeks. Recommend discussing with your PCP or following up with a Data Capture Clerk, Dr. Martini, to discuss having a sleep study performed. Vital Signs/Physical Exam: Temp Pulse Resp BP Pulse Ox 97.7 F 56 20 169/87 H 99 05/06/21 12:00 05/06/21 12:00 05/06/21 12:00 05/06/21 12:00 05/06/21 12:00 General: Alert, In no apparent distress, Oriented x3 HEENT: Sclerae nonicteric Neck: Supple Respiratory: Clear to auscultation bilaterally, Normal air movement Cardiovascular: No edema, Regular rate/rhythm Gastrointestinal: Soft and benign, Non-distended, No tenderness Musculoskeletal: No erythema, No tenderness Neurological: Normal speech, Normal affect Laboratory Data at Discharge: WBC 7.00 K/uL (4.3-10.9) 05/06/21 03:15 Hgb 11.3 g/dL (12.0-15.0) L 05/06/21 03:15 Hct 32.8 % (36.0-45.0) L 05/06/21 03:15 Plt Count 272 K/uL (152-406) 05/06/21 03:15 Sodium 142 mmol/L (136-145) 05/06/21 03:15 Potassium 3.9 mmol/L (3.5-5.1) 05/06/21 03:15 BUN 9 mg/dL (7-18) 05/06/21 03:15 Creatinine 0.75 mg/dL (0.55-1.3) 05/06/21 03:15 Glucose 116 mg/dL (74-106) H 05/06/21 03:15 Total Bilirubin 0.3 mg/dL (0.2-1.0) 05/06/21 03:15 AST 12 U/L (15-37) L 05/06/21 03:15 ALT 19 U/L (12-78) 05/06/21 03:15 Alkaline Phosphatase 77 U/L (45-117) 05/06/21 03:15 Lipase 76 U/L (73-393) 05/03/21 20:25 Home Medications: Levothyroxine Sodium 25 mcg PO DAILY 07/27/20 Sertraline [Zoloft*] 200 mg PO BEDTIME 07/27/20 buPROPion HCL [Bupropion HCl] 150 mg PO DAILY 12/10/20 Ondansetron [Zofran (Odt)*] 4 mg PO Q6H PRN #10 tab 03/08/21 Acetaminophen 160 mg PO Q4HR PRN 04/05/21 Atorvastatin Calcium 10 mg PO DAILY 04/05/21 Cetirizine HCl [Zyrtec] 10 mg PO DAILY 04/05/21 Hyoscyamine Sulfate [Levsin TAB*] 0.125 mg PO Q4H PRN 04/05/21 Lisinopril [Zestril] 5 mg PO DAILY 04/05/21 Metoprolol Succinate [Toprol Xl*] 50 mg PO BID 04/05/21 predniSONE [Prednisone*] 10 mg PO SEECOM 04/17/21 Amox/Clavulanate [Augmentin 875-125 Tab] 875 mg PO BID 7 Days #14 tab 05/06/21 New Medications: Amox/Clavulanate [Augmentin 875-125 Tab] 875 mg PO BID 7 Days #14 tab Physician Discharge Instructions: Patient was found to have partial small bowel obstruction. Improved with bowel rest and IV hydration. She was empirically treated with IV antibiotics as well. On day of discharge she was passing flatus and had 2 small bowel movements She was also noted to have klebsiella in her urine concerning for UTI. Patient is discharged with 7 more days of antibiotic (augmentin). Follow up with PCP within 1 week. Follow up with GI as scheduled in the next few weeks. Recommend discussing with your PCP or following up with a Data Capture Clerk, Dr. Martini, to discuss having a sleep study performed. Diet: soft Activity: Ad jaylen Followup: Abel Martini MD [ACTIVE - CAN ADMIT] - (desktop support manager- call to schedule an appointment ) Moriah Vasquez NP [Primary Care Provider] - 1 Week (Call to schedule an appointment ) Time spent managing pt's care (in minutes): 45
== END 2021-05-06 14:02 | disposition home or self-care (01) | DRG 386 ==
LOC: ER 15:01 → ERHOLD 23:35 → 4TH 05-04 17:58
PROVIDERS: ADMIT Hospitalist; ATTEND Hospitalist
DX: K50.012 Crohn's disease of small intestine with intestinal obstruction (principal); N39.0 Urinary tract infection, site not specified; E03.9 Hypothyroidism, unspecified; I10 Essential (primary) hypertension; K21.9 Gastro-esophageal reflux disease without esophagitis; B96.1 Klebsiella pneumoniae [K. pneumoniae] as the cause of diseases classified elsewhere; Z88.8 Allergy status to other drugs, medicaments and biological substances; Z88.1 Allergy status to other antibiotic agents; Z91.040 Latex allergy status; Z79.890 Hormone replacement therapy; Z79.52 Long term (current) use of systemic steroids; Z79.899 Other long term (current) drug therapy; Z20.822 Contact with and (suspected) exposure to COVID-19
CPT/HCPCS: 0240U; 36415; 74018; 74177; 80053; 81003; 81015; 83605; 83690; 85025; 87077; 87086; 87088; 87186; 96361; 96374; 96375; 99285; J1650; J2270; J2405; J2543; J2920; J2930; J3010; J3480; J7030; Q9967

== ENCOUNTER 2021-05-16 16:00 | Emergency (ER) | payer BC ==
--- OUTSIDE RECORDS SUMMARY | 2021-05-16 16:03 | XMS REPORT | Continuity of Care Document ---
:1955 Author Organization [facility] t Address [address] [place] [address] Care Team Providers Name Role Phone Kael MEADOWS MD, A Primary Care Physician Karin PARSONS Attending Clinician LUIS FELIEP Attending Clinician Unavailable Ca VANN Attending Clinician Unavailable KARIN Attending Clinician Unavailable Kaci PARSONS, R. Attending Clinician Yadira MURPHY Attending Clinician Unavailable Ca VANN Admitting Clinician Unavailable Payers Payer Name Policy Type Policy Number Effective Date Expiration Date S ource PPO/EPO - BCBS [id number] BCBS PPO POS EPO [id number] 2010 00:00:00 CHOICE Problems Condition Condition Condition Status Onset Resolution Last Treating Co mments Source Name Details Category Date Date Treatment Clinician Date Crohn's Crohn's Disease Active 2020-02 [facility] disease disease 2-22 [facility] of 00 Medicin e Essential Essential Disease Active Met hodi hypertensi hypertensi 8-13 st on on 00:00: Hospita 00 l Chest pain Chest pain Disease Active M ethodi 2-02 st 00:00: Hospita 00 l 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:00: [facility] involving involving [place] 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 [...] 00 Center Latex Propensi Active Rash 2020-02 [facility] ty to 2-10 College adverse 00:00: of reaction 00 Medicin s to e substanc e Latex, Propensi Active Itching Methodi Natural ty to st Rubber adverse Hospita reaction l s to drug NO KNOWN Allergy Active SLEH ALLERGIE S Family History Family Member Diagnosis Comments Start Date Stop Date Source Natural father [facility] Natural mother Heart disease [facility] Social History Social Habit Start Date Stop Date Quantity Comments Source History [facility] Drinks History [facility] Exposure to Not sure [facility] of SARS-CoV-2 Medicine (event) Tobacco use and 2021-01-25 2021-01-25 Smokeless tobacco [facility] of exposure 00:00:00 00:00:00 non-user Medicine History SDOH 2018-03-19 2018-03-19 1 [facility] Frequency 00:00:00 00:00:00 Hospita l Alcohol intake 2018-03-19 2018-03-19 Current [facility] 00:00:00 00:00:00 non-drinker of Hospital alcohol (finding) Sex Ass[birth year] F [facility] llege of 00:00:00 00:00:00 Medicine Smoking Status Start Date Stop Date Source Never smoked tobacco [facility] Eric ege of Medicine Former smoker 2018-03-19 00:00:00 2018-03-19 00:00:00 [facility] Medications Ordered Filled Start Stop Current Ordering Indication Dosage Frequency Signature Comments Components Source Medication Medication Date Date Medication? Clinician (SIG) Name Name MINERAL OIL 2021- No Take by Kamala albrecht OR 03-29 mouth. [place] 12:06: 00:00 of 07 :00 Medicin e MINERAL OIL 2021- No Take by Kamala albrecht OR 03-29 mouth. [place] 12:06: 00:00 of 07 :00 Medicin e Mesalamine 2021- No Take by [facility] (PENTASA) 03-29 mouth. [place] 500 MG CPCR 12:04: 00:00 of 57 :00 Medicin e Mesalamine 2021- No Take by [facility] (PENTASA) 03-29 mouth. [place] 500 MG CPCR 12:04: 00:00 of 57 [...] Take by Kamala albrecht us 03-29 mouth. [place] (ACIDOPHILU 12:03: 00:00 of S OR) 05 :00 Medicin e Cholecalcif Yes Take by [facility] alex - mouth. [place] (VITAMIN D) 11:46: of 125 MCG 58 Medicin (5000 UT) e CAPS Cholecalcif Yes Take by [facility] alex - mouth. [place] (VITAMIN D) 11:46: of 125 MCG 58 [...] Take 0.125 Ran (LEVSIN) 2-11 mg by [place] 0.125 MG 11:46: mouth of tablet 58 every 4 Medicin hours as e needed for Cramping. metFORMIN Yes Take 1 [facility] 500 MG TB24 2-11 capsule by Co [...] renea SUSP hours prn e predniSONE Yes [id number] 20mg Take 1 [facility] (DELTASONE) 2-11 Tablet by Col lege 20 MG 00:00: mouth of tablet 00 daily. Medicin Taper by 5 e mg every week. MINERAL OIL 2020-02 Yes Take by Sixto adams OR 2-10 mouth. [place] 09:20: of 34 Medicin e Cholecalcif 2020-02 Yes Take by Sixto adams alex 2-10 mouth. [place] (VITAMIN D) 09:20: of 125 MCG 34 Medicin (5000 UT) e CAPS ferrous 2020-02 Yes 325mg Take 325 Baylo r sulfate 2-10 mg by [place] (FEROSUL) 09:19: mouth of 325 (65 Fe) 41 daily. Medici n MG tablet e Mesalamine 2020-02 Yes Take by [facility] (PENTASA) 2-10 mouth. [place] 500 MG CPCR 09:19: of 41 Medicin e predniSONE 2020-02 Yes [facility] (DELTASONE) 03-13 College 20 MG 00:00: of tablet 00 Medicin e predniSONE 2020-02- No 20mg Take 20 mg Ran (DELTASONE) 03-13 by mouth Col lege 20 MG 00:00: 00:00 daily. of tablet 00 :00 Medicin e predniSONE 2020-02- No 20mg Take 20 mg [facility] (DELTASONE) 03-13 by mouth Col lege 20 [...] pantoprazol 2020-02 Yes 40mg Take 40 mg [facility] e 02-27 by [facility] (PROTONIX) 00:00: daily. of 40 MG 00 Medicin tablet e pantoprazol 2020-02- No 40mg Take 40 mg Ran e 02-27 by [facility] (PROTONIX) 00:00: 00:00 daily. of 40 MG 00 :00 Medicin tablet e pantoprazol 2020-02- No 40mg Take 40 mg Ran e 02-27 by [facility] (PROTONIX) 00:00: 00:00 daily. of 40 MG 00 :00 Medicin tablet e lisinopril 2020-02 Yes 1 po daily [facility] (PRINIVIL, 02-23 in [facility]) 5 00:00: morning of MG tablet 00 Medicin e lisinopril 2020-02 Yes 1 po daily [facility] (PRINIVIL, 02-23 in [facility]) 5 00:00: morning of MG tablet 00 Medicin e lisinopril 2020-02 Yes 1 po daily B ayherman (PRINIVIL, 02-23 in the [facility]) 5 00:00: morning of MG tablet 00 Medicin e sertraline 2020-02 Yes Ran (ZOLOFT) 1 College 100 MG 00:00: of tablet 00 Medicin e buPROPion 2020-02 Yes TAKE 2 [facility] (WELLBUTRIN 1-02 TABLETS BY Co llege ) 75 MG 00:00: MOUTH of tablet 00 EVERY Medicin MORNING e AND 1 TABLET BY MOUTH EVERY EVENING sertraline 2020-02 Yes [facility] (ZOLOFT) 02-17 College 100 MG 00:00: of tablet 00 Medicin e buPROPion 2020-02 Yes TAKE 2 [facility] (WELLBUTRIN 1-02 TABLETS BY Co llege ) 75 MG 00:00: MOUTH of tablet 00 EVERY Medicin MORNING e AND 1 TABLET BY MOUTH EVERY EVENING sertraline 2020-02 Yes [facility] (ZOLOFT) 02-17 [place] 100 MG 00:00: of tablet 00 Medicin e buPROPion 2020-02 Yes TAKE 2 [facility] (WELLBUTRIN 1-02 TABLETS BY Co llege ) 75 MG 00:00: MOUTH of tablet 00 EVERY Medicin MORNING e AND 1 TABLET BY MOUTH EVERY EVENING Adalimumab 2020-02 Yes [facility] (HUMIRA 0-25 [place] PEN) 40 00:00: of MG/0.8ML 00 Medicin injection e Adalimumab 2020-02- No [facility] (HUMIRA 0-25 -14 [place] PEN) 40 00:00: 00:00 of MG/0.8ML 00 :00 Medicin injection e levothyroxi Yes levothyrox [facility] 09-17 ine 25 mcg [facility] (SYNTHROID) 00:00: tablet of 25 MCG 00 TAKE 1 Medicin tablet TABLET BY e MOUTH DAILY IN THE MORNING WITH JUST A SIP OF WATER. WAIT 30 MINUTES BEFORE EATING OR DRINKING ANYTHING levothyroxi Yes levothyrox [facility] 09-17 ine 25 mcg [facility] (SYNTHROID) 00:00: tablet of 25 MCG 00 TAKE 1 Medicin tablet TABLET BY e MOUTH DAILY IN THE MORNING WITH JUST A SIP OF WATER. WAIT 30 MINUTES BEFORE EATING OR DRINKING ANYTHING levothyroxi Yes levothyrox [facility] ne 802 ine 25 mcg College (SYNTHROID) 00:00: tablet of 25 MCG 00 TAKE 1 Medicin tablet TABLET BY e MOUTH DAILY IN THE MORNING WITH JUST A SIP OF WATER. WAIT 30 MINUTES BEFORE EATING OR DRINKING ANYTHING lisinopriL- Yes [id number] 1{tbl} QD TAKE 1 [facility] hydrochloro 7-[address] thiazide 00:00: MOUTH Hospita (PRINZIDE) 00 DAILY l 10-12.5 mg per tablet metoprolol Yes [id number] TAKE 1 Me thodi tartrate 7-29 TABLET(50 st (LOPRESSOR) 00:00: MG) BY Hosp [facility] 50 mg 00 MOUTH l tablet TWICE DAILY metoprolol 2020- No [id number] TAKE 1 M ethodi tartrate 4-26 07-29 TABLET(50 st (LOPRESSOR) 00:00: 00:00 MG) BY Hos alba 50 mg 00 :00 MOUTH l tablet TWICE DAILY lisinopriL- 2020- No [id number] 1{tbl} QD TAKE 1 [facility] hydrochloro 4-26 07-[address] thiazide 00:00: 00:00 MOUTH Hospita (PRINZIDE) 00 :00 DAILY l 10-12.5 mg per tablet lisinopriL- 2020- No [id number] 1{tbl} QD Take 1 [facility] hydrochloro 1-25 04-[address] thiazide 00:00: 00:00 mouth Hospita (PRINZIDE) 00 :00 daily. l 10-12.5 mg per tablet metoprolol 2020- No [id number] 50mg Q.5D Take 1 M ethodi tartrate 1-25 04-26 tablet (50 st (LOPRESSOR) 00:00: 00:00 mg total) Hospita 50 mg 00 :00 by mouth 2 l tablet (two) times a day. lisinopril- 2020- No [id number] 1{tbl} QD TAKE 1 [facility] hydrochloro 1-30 01-[address] thiazide 00:00: 00:00 MOUTH Hospita (PRINZIDE) 00 :00 DAILY l 10-12.5 mg per tablet metoprolol 2020- No [id number] TAKE 1 M ethodi tartrate 03-17 01-25 TABLET(50 st (LOPRESSOR) 00:00: 00:00 MG) BY Hos alba 50 mg 00 :00 MOUTH l tablet TWICE DAILY sertraline Yes sertraline [facility] (ZOLOFT) 50 02-17 50 mg College MG tablet 00:00: tablet of 00 Medicin e sertraline 2021- No sertraline [facility] (ZOLOFT) 50 02-17- 50 mg Colleg e MG tablet 00:00: 00:00 tablet of 00 :00 Medicin e sertraline 2021- No sertraline Ran (ZOLOFT) 50 02-17- 50 mg Colleg e MG tablet 00:00: 00:00 tablet of 00 :00 Medicin e cetirizine Yes 10mg Q24H Take 10 mg M ethodi (ZyrTEC) [address] MG tablet 16:39: daily as Hosp [facility] 47 needed for l allergies. mvit,calc,m Yes Take by Met hodi in-folic 8-[address] [id number] 16:39: Hospita 200 mcg 47 l tablet aspirin Yes 81mg QD Take 81 mg Meth denis (ECOTRIN) [address] 81 MG 16:39: daily. Hospita enteric 47 l coated tablet fexofenadin Yes Take by Met hodosman e HCl 8-[address] (JAYCOB 16:39: needed. Hospit a ODT ORAL) 47 l coenzyme Yes [facility] Q10 (CO 09-23 st [...] Source Body weight 2021-03-29 17:28:00 110.678 kg [place] [facility] BMI 2021-03-29 17:28:00 46.10 [facility] Systolic blood 2021-03-29 17:28:00 143 mm[Hg] [facility] Medicine Diastolic blood 2021-03-29 17:28:00 82 mm[Hg] [facility] Medicine Heart rate 2021-03-29 17:28:00 60 /min [facility] Body temperature 2021-03-29 17:28:00 36.22 Nadiya [facility] Respiratory rate 2021-03-29 17:28:00 16 /min [facility] Body height 2021-03-29 17:28:00 154.9 cm [facility] Body height 2021-03-01 15:04:00 154.9 cm [place] [facility] Body weight 2021-03-01 15:04:00 107.593 kg [facility] BMI 2021-03-01 15:04:00 44.82 kg/m2 [facility] HEIGHT 2021-02-03 05:20:00 154.9 cm WEIGHT 2021-02-03 05:20:00 106.505 kg HEIGHT 2021-02-03 05:20:00 154.9 cm WEIGHT 2021-02-03 05:20:00 106.505 kg Systolic blood 2021-01-25 15:06:00 122 mm[Hg] [facility] Medicine Diastolic blood 2021-01-25 15:06:00 80 mm[Hg] [facility] Medicine Heart rate 2021-01-25 15:06:00 81 /min [facility] Body temperature 2021-01-25 15:06:00 36.28 Nadiya [facility] Respiratory rate 2021-01-25 15:06:00 14 /min [facility] Body height 2021-01-25 15:06:00 154.9 cm [facility] Body weight 2021-01-25 15:06:00 106.142 kg [facility] BMI 2021-01-25 15:06:00 44.21 kg/m2 [facility] Procedures This patient has no known procedures. Plan of Care Planned Activity Planned Date Details Comments Source Future Scheduled 2021-04-[address] [facility] of Test 13:40:02 neoplasm of colon Medicine (procedure) [code = 196365195] Future Scheduled 2021-04-[address] [facility] Test 13:40:02 neoplasm of breast Medicine (procedure) [code = 617048189] Future Scheduled 2021-04-04 TETANUS SHOT (ADULT) [facility] Test 13:40:02 [code = TETANUS SHOT Medicin e (ADULT)] Future Scheduled 2021-04-04 BMI FOLLOW UP PLAN [code [facility] Test 13:40:02 = BMI FOLLOW UP PLAN] Medici ne Future Scheduled 2021-04-04 Hepatitis C screening [facility] Test 13:40:02 (procedure) [code = Medicine [id number]] Future Scheduled 2021-04-04 Human immunodeficiency B [facility] Test 13:40:02 virus screening Medicine (procedure) [code = 843154484] Future Scheduled 2021-04-[address] [facility] of Test 13:40:02 neoplasm of cervix Medicine (procedure) [code = 398994065] Future Scheduled 2021-04-04 ZOSTER VACCINE (1 of 2) [facility] Test 13:40:02 [code = ZOSTER VACCINE (1 Me dicine of 2)] Future Scheduled 2021-04-04 FLU VACCINE > 6 MONTHS B [facility] of Test 13:40:02 [code = FLU VACCINE > 6 Medi cine MONTHS] Future Scheduled 2021-04-04 COVID-19 Vaccine (2 - Ba [facility] of Test 13:40:02 Pfizer 3-dose series) Medici ne [code = COVID-19 Vaccine (2 - Pfizer 3-dose series)] Future Scheduled 2021-04-[address] [facility] Test 13:40:02 neoplasm of colon Medicine (procedure) [code = 925361816] Future Scheduled 2021-04-[address] [facility] Test 13:40:02 neoplasm of breast Medicine (procedure) [code = 073736597] Future Scheduled 2021-04-04 TETANUS SHOT (ADULT) [facility] of Test 13:40:02 [code = TETANUS SHOT Medicin e (ADULT)] Future Scheduled 2021-04-04 BMI FOLLOW UP PLAN [code [facility] Test 13:40:02 = BMI FOLLOW UP PLAN] Medici ne Future Scheduled 2021-04-04 Hepatitis C screening [facility] Test 13:40:02 (procedure) [code = Medicine 045230998] Future Scheduled 2021-04-04 Human immunodeficiency B [facility] Test 13:40:02 virus screening Medicine (procedure) [code = 369227316] Future Scheduled 2021-04-[address] [facility] Test 13:40:02 neoplasm of cervix Medicine (procedure) [code = 554195653] Future Scheduled 2021-04-04 ZOSTER VACCINE (1 of 2) [facility] Test 13:40:02 [code = ZOSTER VACCINE (1 Me dicine of 2)] Future Scheduled 2021-04-04 FLU VACCINE > 6 MONTHS B [facility] Test 13:40:02 [code = FLU VACCINE > 6 Medi cine MONTHS] Future Scheduled 2021-04-04 COVID-19 Vaccine (2 - [facility] 13:40:02 Pfizer 3-dose series) Medici ne [code = COVID-19 Vaccine (2 - Pfizer 3-dose series)] Future Scheduled 2021-01-[address] [facility] of Test 09:15:59 neoplasm of colon Medicine (procedure) [code = 459917406] Future Scheduled 2021-01-[address] [facility] of Test 09:15:59 neoplasm of breast Medicine (procedure) [code = 659582452] Future Scheduled 2021-01-25 TETANUS SHOT (ADULT) [facility] of Test 09:15:59 [code = TETANUS SHOT Medicin e (ADULT)] Future Scheduled 2021-01-25 Hepatitis C screening [facility] of Test 09:15:59 (procedure) [code = Medicine 267442202] Future Scheduled 2021-01-25 Human immunodeficiency B [facility] Test 09:15:59 virus screening Medicine (procedure) [code = 583051967] Future Scheduled 2021-01-[address] [facility] of Test 09:15:59 neoplasm of cervix Medicine (procedure) [code = 178363528] Future Scheduled 2021-01-25 ZOSTER VACCINE (1 of 2) [facility] Test 09:15:59 [code = ZOSTER VACCINE (1 Me dicine of 2)] Future Scheduled 2021-01-25 FLU VACCINE > 6 MONTHS B [facility] of Test 09:15:59 [code = FLU VACCINE > 6 Medi cine MONTHS] Future Scheduled 2021-01-25 COVID-19 Vaccine (2 - [facility] [place] 09:15:59 Pfizer 2-dose series) Medici ne [code = COVID-19 Vaccine (2 - Pfizer 2-dose series)] Future Scheduled COVID-19 VACCINE (1) [facility] Test [code = COVID-19 VACCINE Hos pital (1)] Future Scheduled Hepatitis C screening [facility] Test (procedure) [code = Hospital 682770509] Future Scheduled Screening for malignant [facility] neoplasm of cervix Hospital (procedure) [code = 055074488] Future Scheduled BREAST CANCER SCREENING [facility] Test [code = BREAST CANCER Hospit al SCREENING] Future Scheduled COLONOSCOPY SCREENING [facility] Test [code = COLONOSCOPY Hospital SCREENING] Future Scheduled SHINGLES VACCINES (#1) M [facility]ist Test [code = SHINGLES VACCINES Ho spital (#1)] Future Scheduled INFLUENZA VACCINE [code = [facility] Test INFLUENZA VACCINE] Hospital Encounters Start End Encounter Admission Attending Care Care Encounter Source Date/Time Date/Time Type Type Clinicians Facility Department ID 2021-04-22 2021-04-22 Outpatient [facility] [id number] [facility] 08:34:02 23:59:00 [facility] Medic[facility] e 2021-04-08 2021-04-08 Outpatient [facility] [id number] [facility] 08:22:34 23:59:00 Colleg e of Medicin e 2021-03-29 2021-03-29 Office ADINA Frazier [id number] [facility] 11:00:00 13:34:50 Visit Manreet AMBULATOR 350.1.13.21 College Y 0.2.7.2.686 of [id number] Medi renea 325 e 2021-03-01 2021-03-01 Office ADINA Frazier [id number] [facility] 09:00:00 11:07:59 Visit Manreet AMBULATOR 350.1.13.21 College Y 0.2.7.2.686 of [id number] [facility] 325 e 2021-02-03 2021-02-06 Inpatient ER PAULO BRISCOE [facility] 3 [id number] [facility] 05:14:00 16:07:00 OBINNA 2021-01-25 2021-01-25 Office ADINA FRAZIER [id number] [facility] 00:00:00 19:54:04 Visit MANREET AMBULATOR 350.1.13.21 College Y 0.2.7.2.686 of [id number] [facility] 325 e 2020-09-12 2020-09-12 Refevan Clemons 1.2.840.1 [id number] [facility] 00:00:00 00:00:[address] 3.430.2.7 Hospit a .3.918575 l .8 2020-06-11 2020-06-11 Toby Clemons 1.2.840.1 [id number] [facility] 00:00:00 00:00:00 Ace RFelix [address]676.1.[address] 3.430.2.7 Hospit a .3.857109 l .8 2020-03-12 2020-03-12 Javier Kelly 1.2.840.1 [id number] [facility] 00:00:00 00:00:[address] 3.430.2.7 Hospit a .3.180421 l .8 Results Test Description Test Time Test Comments Results Result Comments Source HEPATITIS B PANEL 2021-02-06 20:49:20 Test Item Value Reference Range Interpretation Comme nts HEPATITIS B CORE TOTAL ANTIBODY (BEAKER) (test code = Nonreactive Nonreactive 497) HEPATITIS B SURFACE ANTIBODY (BEAKER) (test code = 647) < mIU/mL <8.0 HEPATITIS B SURFACE ANTIGEN (2) (BEAKER) (test code = Nonreactive Nonreactive 2585) [facility] ID - BSOperator ID - BSVITAMIN D, [id number] 18:58:29 Test Item Value Reference Range Interpretation Comments VITAMIN D 25-OH (BEAKER) (test 48.0 ng/mL 6.6-49.9 code = 2764) Effective 11/26/2016: Reference Range ChangeNew: 6.6-49.9 ng/mL Previous: 13.0-47.8 ng/mLRecommended Vitamin D Target Range: 30.0-40.0 ng/mLOperator ID - BS. DIFFICILE GDH [id number] 13:19:34 Test Item Value Reference Range Interpretation Comments CDT TOXIN (test code Negative Negative = [id number]) CDT GDH ANTIGEN (test Negative Negative No ind ication of code = 9521535800) Clostridi um difficile infection and n o colonization. Discontinue ent randy isolation and t herapy. Testing performed by Intersect ENT Rapid Cassette Assay. For GDH, published sensitivity of the assay is 98.7% compared to cytotoxicity testing. For Toxin AB, published sensitivity is 87.8% and specificity 99.4% compared to cytotoxicity testing.Verification of kit performance was done by the [facility] prior to clinical use.BASIC METABOLIC [id number] 05:52:32 Test Item Value Reference Range Interpretation [...] S NOT APPLICABLE FOR DIALYSIS PATIEN TS. [facility] ID - KARMEN PALAFOXBC (HEMOGRAM ONLY)2021-02-06 05:38:48 Test Item Value Reference [...] (BEAKER) (test code = 413) BASIC METABOLIC [id number] 05:38:29 Test Item Value Reference Range Interpretation [...] S NOT APPLICABLE FOR DIALYSIS PATIEN TS. [facility] ID - DEANNA MC-REACTIVE [id number] 05:38:29 Test Item Value Reference Range Interpretation Comments C-REACTIVE PROTEIN (BEAKER) (test 3.86 mg/dL 0.00-0.50 H code = 676) [facility] ID - DEANNA MCBC (HEMOGRAM ONLY)2021-02-05 05:28:27 [...] 0-0 (BEAKER) (test code = 413) CT, [id number] 16:56:00Unlisted Reason for Exam - Click Yes and Enter Reason Below->NoIs this for enterography?->NoWill this procedure require oral contrast?->No [facility] : 1955 Sex: FFINAL [...] MDReport Verified Date/Time: 02/04/2021 16:56:27 Reading Location: [facility] Diagnostic Imaging Reading Room - [place] [address] VITAMIN B12 AND [id number] 07:14:11 Test Item Value Reference Range Interpretation Comments VITAMIN B12 187 pg/mL 213-816 L (BEAKER) (test code = 774) FOLATE (BEAKER) 18.90 ng/mL See_Comment [Automated message] (test code = 362) The system which generated this result transmitted ref erence range: >=7.00. The reference range was not used to interpr et this result as normal/abnormal . [facility] ID - LIDA [id number] 07:14:10 Test Item Value Reference Range Interpretation Comments FERRITIN (BEAKER) (test code = 110.79 ng/mL 5.00-275.00 361) [facility] ID - LIDA ALANIZON, TIBC, % SAT. (WITHOUT FERRITIN)2021-02-04 06:55:40 Test Item Value Reference Range Interpretation Comments IRON (BEAKER) (test code = 547) 75.0 ug/dL 40.0-160.0 TOTAL IRON BINDING CAPACITY 258 ug/dL 250-450 (BEAKER) (test code = 769) IRON % SATURATION (2) (BEAKER) 29 % 20-55 (test code = 2590) [facility] ID - LIDA FHEPATIC FUNCTION [id number] 16:57:11 Test Item Value Reference Range Interpretation [...] Specimen slightly (test code = 347) hemolyzed [facility] ID - KARMEN LHEMOGLOBIN [id number] 12:28:44 Test Item Value Reference Range Interpretation Comments HEMOGLOBIN A1C (BEAKER) (test code = 5.3 % 4.3-6.1 368) [id number] 09:47:42 Test Item Value Reference Range Interpretation Comments PHOSPHORUS (BEAKER) 3.5 mg/dL 2.3-4.7 Specimen slightly (test code = 604) hemolyzed [facility] ID - KARMEN LBASIC METABOLIC [id number] 09:47:42 Test Item Value Reference Range Interpretation [...] S NOT APPLICABLE FOR DIALYSIS PATIEN TS. [facility] ID - PINANCIE [id number] 09:47:41 Test Item Value Reference Range Interpretation Comments MAGNESIUM (BEAKER) 2.2 mg/dL 1.6-2.6 Specimen slightly (test code = 627) hemolyzed [facility] AMADA PERAZA LC-REACTIVE [id number] 09:45:23 Test Item Value Reference Range Interpretation Comments C-REACTIVE PROTEIN (BEAKER) (test 3.67 mg/dL 0.00-0.50 H code = 676) [facility] ID - KARMEN LCBC W/PLT COUNT & AUTO [id number] 09:23:38 Test Item Value Reference Range Interpretation [...] code = 2801) RAD, ABDOMEN/KUB, 1 VIEW [id number] 07:28:00Reason for exam:->NGT tube placementShould this be performed at the bedside?->Yes [facility] : 1955 Sex: FFINAL REPORT RAD, ABDOMEN/KUB, 1 VIEW AP INDICATION: NGT tube placementCOMPARISON: None TECHNIQUE: Limited portable radiograph of the lower chest and upper abdomen was acquired for purposes of evaluating tube placement FINDINGS/IMPRESSION:NG side-port overlies the stomach Signed: Rory Quiroga Verified Date/Time: 02/03/2021 07:28:00
[2021-05-16] MEDS ORDERED: ONDANSETRON 4 MG/2 ML VIAL ONE ×2 (17:33→20:09)
[2021-05-16] MEDS ORDERED: MORPHINE 4 MG/ML SYR ONE (17:33)
[2021-05-16] MEDS ORDERED: FAMOTIDINE 20 MG/2 ML VIAL IV ONE (17:34)
[2021-05-16 17:52] LABS: Absolute Lymphocytes (CBC) 2.7 K/uL (0.7-4.9); Hematocrit 36.7 % (36.0-45.0); Lymphocytes % 36.4 % (15.3-44.8); MPV 7.3 fL (7.6-11.3); RBC Red Blood Cell Count 4.09 M/uL (3.86-4.86)
[2021-05-16] MEDS ORDERED: NA CHLORIDE 0.9% 500 ML ONE ×2 (17:56→20:01)
[2021-05-16 18:08] LABS: Albumin 3.2 g/dL (3.4-5.0); Bilirubin Total 0.3 mg/dL (0.2-1.0); Potassium 3.6 mmol/L (3.5-5.1); Protein, Total 6.6 g/dL (6.4-8.2)
--- NOTE | 2021-05-16 18:46 | RAD REPORT ---
EXAM DESCRIPTION: CT - Abdomen Pelvis W Contrast - 05/16/2021 6:29 pm CLINICAL HISTORY: ABD PAIN COMPARISON: CT study 05/03/2021 TECHNIQUE: Biphasic, helical CT imaging of the abdomen and pelvis was performed following 100 ml non -ionic IV contrast. No oral contrast administered. All CT scans are performed using dose optimization technique as appropriate and may include automated exposure control or mA/KV adjustment according to patient size. FINDINGS: No suspicious findings in the lung bases. The liver, spleen, and pancreas show no suspicious findings. Gallbladder and biliary tree are also wi thout suspicious finding. Symmetric renal function is seen with no hydronephrosis or suspicious renal mass. No pyelonephritis o r acute parenchymal process. No bladder abnormalities. No adrenal abnormalities. Benign right renal c yst matches comparison. Uterus and ovaries show no suspicious findings. Fluid fills but does not distend the stomach. No acute gastric finding. Duodenum is unremarkable. Pro ximal jejunum is unremarkable. There is multiple dilated small bowel loops in the mid abdomen. There is a transition point evident in the low pelvis. Stranding is seen in the mesenteric fat. This is in proximity to the terminal ileum which itself is not dilated. This mechanical small bowel obstruction is very similar to the May 03 study. No pneumatosis or free air have developed. There is no abscess or spill of intraluminal content. No mass or bulky lymphadenopathy. Small periumbilical fat only her wali seen. No suspicious bony findings. IMPRESSION: Mechanical small bowel obstruction is present similar to the May 03 study. This is lik trace due to adhesions in the lower pelvis near the terminal ileum which itself is not obstructed. No abscess, free air or spill of intraluminal content.
--- NOTE | 2021-05-16 18:54 | ER ---
Nurse's Notes [facility] Name: Kindra Novoa Age: 65 yrs Sex: Female : 1955 Arrival Date: 05/16/2021 Time: 16:04 Bed 20 Private MD: Diagnosis: Crohn's disease of both small and large intestine with intestinal obstruction Presentation: 05/16 16:24 Chief complaint: Patient states: she started having upper abdominal pain Estefany night. ap3 Patient denies nausea and vomiting, but reports Diarrhea. Patient states her current pain is a 9/10. Coronavirus screen: At this time, the client does not indicate any symptoms associated with coronavirus-19. Ebola Screen: No symptoms or risks identified at this time. Initial Sepsis Screen: Does the patient meet any 2 criteria? RR > 20 per min. Does the patient have a suspected source of infection? No. Patient's initial sepsis screen is negative. Risk Assessment: Do you want to hurt yourself or someone else? Patient reports no desire to harm self or others. Onset of symptoms was May 14, 2021. 16:24 Method Of Arrival: Ambulatory ap3 16:24 Acuity: KAROL 3 ap3 Triage Assessment: 16:29 General: Appears uncomfortable, Behavior is calm, cooperative. Pain: Complains of pain ap3 in right upper quadrant and left upper quadrant Pain currently is 9 out of 10 on a pain scale. Pain began 2-3 days ago. Noted to be guarding. Neuro: Level of Consciousness is awake, alert, obeys commands, Oriented to person, place, time, situation, Appropriate for age Gait is steady, Speech is normal. Cardiovascular: Patient's skin is warm and dry. Respiratory: Airway is patent Respiratory effort is even, unlabored, Respiratory pattern is regular, symmetrical. GI: Reports upper abdominal pain, diarrhea. Historical: - Allergies: 16:26 Ciprofloxacin; ap3 16:26 Flagyl; ap3 16:26 Latex, Natural Rubber; ap3 - Home Meds: 16:26 atorvastatin 10 mg Oral tab [Active]; bupropion HCl 75 mg Oral tab [Active]; ap3 hyoscyamine sulfate 0.125 mg Oral tab [Active]; metoprolol tartrate 50 mg Oral tab [Active]; ondansetron HCl 4 mg Oral tab [Active]; sertraline 100 mg Oral tab [Active]; cetirizine 10 mg oral cap [Active]; levothyroxine 25 mcg cap [Active]; lisinopril 5 mg Oral tab [Active]; prednisone 10 mg Oral tab [Active]; - PMHx: 16:26 Colitis; Crohn's Disease; Depression; Hypertension; Hypothyroidism; Insulin Resistance; ap3 - Immunization history:: Client reports having NOT received the Covid vaccine. Flu vaccine is not up to date. - Social history:: Smoking status: Patient denies any tobacco usage or history of. Screenin:30 Abuse screen: Denies threats or abuse. Nutritional screening: No deficits noted. ap3 Tuberculosis screening: No symptoms or risk factors identified. 18:13 Fall Risk IV access (20 points). canseco Assessment: 18:13 GI: Bowel sounds present X 4 quads. Abd is soft Abd is non tender. canseco 19:25 General: Appears in no apparent distress. Behavior is cooperative. Pain: Complains of sm5 pain in abdomen and left upper quadrant and right upper quadrant. Neuro: No deficits noted. Level of Consciousness is awake, alert, obeys commands, Oriented to person, place, time, situation. Cardiovascular: No deficits noted. Capillary refill < 3 seconds Patient's skin is warm and dry. Respiratory: No deficits noted. Airway is patent Trachea midline Respiratory effort is even, unlabored. GI: Abd is soft Abd is non tender Reports upper abdominal pain, Patient currently denies vomiting. 21:00 General: Spoke to patient and at the bedside. They were updated on transfer tw5 process.. 21:32 Reassessment: No changes from previously documented assessment. Patient and/or family sm5 updated on plan of care and expected duration. Pain level reassessed. 05/17 02:06 Reassessment: No changes from previously documented assessment. Patient and/or family sm5 updated on plan of care and expected duration. Pain level reassessed. 04:33 Reassessment: Patient and/or family updated on plan of care and expected duration. Pain sm5 level reassessed. Patient is alert, oriented x 3, equal unlabored respirations, skin warm/dry/pink. Vital Signs: 05/16 16:24 BP 120 / 82; Pulse 68; Resp 20; Temp 97.7; Pulse Ox 96% on R/A; Weight 108.86 kg; ap3 Height 5 ft. (152.40 cm); Pain 9/10; 18:12 BP 115 / 52; Pulse 62; Resp 18; Pulse Ox 96% on R/A; canseco 21:31 BP 94 / 48; Pulse 62; Resp 18; Pulse Ox 94% on R/A; sm5 22:47 BP 108 / 52; Pulse 58; Resp 18; Pulse Ox 97% on R/A; sm5 05/17 02:05 BP 105 / 49; Pulse 60; Resp 17; Pulse Ox 94% on R/A; sm5 04:33 BP 112 / 50; Pulse 60; Resp 19; Pulse Ox 97% on R/A; sm5 05/16 16:24 Body Mass Index 46.87 (108.86 kg, 152.40 cm) ap3 ED Course: 05/16 16:04 Patient arrived in ED. kz 16:26 Triage completed. ap3 16:30 Arm band placed on left wrist. ap3 16:37 Esa Betts PA is PHCP. cp 16:38 Patrick Costa MD is Attending Physician. cp 17:50 CBC with Diff Sent. canseco 18:13 Placed in gown. Bed in low position. canseco 18:13 No provider procedures requiring assistance completed. Inserted saline lock: 20 gauge canseco in left antecubital area, using aseptic technique. 18:31 CT Abd/Pelvis - IV Contrast Only In Process Unspecified. EDMS 18:41 Maida Russo, CHRISTIANO is Primary Nurse. ap3 18:52 Kevin Costa MD is Hospitalizing Provider. cp 05/17 04:17 Lactate Sent. [facility] 04:34 Patient transferred, IV remains in place. 5 Administered Medications: 05/16 17:50 Drug: Pepcid (famotidine) 20 mg Route: IVP; Site: left antecubital; canseco 17:50 Follow up: Response: No adverse reaction canseco 17:50 Drug: Zofran (Ondansetron) 4 mg Route: IVP; Site: left antecubital; canseco 17:51 Follow up: Response: No adverse reaction canseco 17:50 Drug: morphine 4 mg Route: IVP; Site: left antecubital; canseco 17:50 Follow up: Response: No adverse reaction canseco 18:12 Drug: NS 0.9% 500 ml Route: IV; Rate: bolus; Site: left antecubital; canseco 20:15 Drug: NS 0.9% 500 ml Route: IV; Rate: bolus; Site: left antecubital; 5 20:15 Drug: morphine 2 mg Route: IVP; Site: left antecubital; sm5 20:15 Drug: Zofran (Ondansetron) 4 mg Route: IVP; Site: left antecubital; 5 20:16 Drug: SOLU-Medrol (methylPrednisoLONE) 125 mg Route: IVP; Site: left antecubital; 5 20:16 Drug: Zosyn (piperacillin-tazobactam) 3.375 grams Route: IVPB; Infused Over: 60 mins; 5 Site: left antecubital; 21:48 Drug: NS 0.9% 1000 ml Route: IV; Rate: 125 ml/hr; Site: left antecubital; 5 21:48 Drug: NS 0.9% 1000 ml Route: IV; Rate: 1 bolus; Site: left antecubital; 5 05/17 02:50 Drug: morphine 2 mg Route: IVP; Site: left antecubital; 5 Outcome: 05/16 18:53 Decision to Hospitalize by Provider. cp 19:53 ER care complete, transfer ordered by MD. 05/17 04:33 Transferred by ground EMS to [facility], Transfer form completed. 5 X-rays sent w/ patient. Condition: stable Instructed on the need for transfer. 05:10 Patient left the ED. 5 Signatures: Dispatcher [employer] EDMS Esa Betts PA PA cp Prokisch, Amanda, RN RN ap3 Wood, Tiffany tw5 Nargis Maldonado RN RN 5 Tana Rangel RN RN ha Zapata, Kelly kz
--- NOTE | 2021-05-16 18:54 | EDPHYS ---
Physician Documentation [facility] Name: Kindra Novoa Age: 65 yrs Sex: Female : 1955 Arrival Date: 05/16/2021 Time: 16:04 Bed 20 Private MD: ED Physician Patrick Costa HPI: 05/16 17:30 This 65 yrs old Female presents to ER via Ambulatory with complaints of cp Abdominal Pain. 17:30 The patient presents with abdominal pain in the upper abdomen, abdominal distention cp that is diffuse. 17:30 Onset: The symptoms/episode began/occurred 2 day(s) ago. The symptoms do not radiate. cp Associated signs and symptoms: Pertinent positives: diarrhea, nausea, Pertinent negatives: blood in stools, constipation, fever, headache, vomiting. The symptoms are described as constant. Historical: - Allergies: 16:26 Ciprofloxacin; ap3 16:26 Flagyl; ap3 16:26 Latex, Natural Rubber; ap3 - Home Meds: 16:26 atorvastatin 10 mg Oral tab [Active]; bupropion HCl 75 mg Oral tab [Active]; ap3 hyoscyamine sulfate 0.125 mg Oral tab [Active]; metoprolol tartrate 50 mg Oral tab [Active]; ondansetron HCl 4 mg Oral tab [Active]; sertraline 100 mg Oral tab [Active]; cetirizine 10 mg oral cap [Active]; levothyroxine 25 mcg cap [Active]; lisinopril 5 mg Oral tab [Active]; prednisone 10 mg Oral tab [Active]; - PMHx: 16:26 Colitis; Crohn's Disease; Depression; Hypertension; Hypothyroidism; Insulin Resistance; ap3 - Immunization history:: Client reports having NOT received the Covid vaccine. Flu vaccine is not up to date. - Social history:: Smoking status: Patient denies any tobacco usage or history of. ROS: 17:35 Constitutional: Negative for body aches, chills, fever, poor PO intake. cp 17:35 Eyes: Negative for injury, pain, redness, and discharge. cp 17:35 Cardiovascular: Negative for chest pain, palpitations. 17:35 Respiratory: Negative for cough, shortness of breath, wheezing. 17:35 Abdomen/GI: Positive for abdominal pain, nausea, diarrhea, Negative for vomiting, constipation, black/tarry stool, rectal bleeding. 17:35 Back: Negative for pain at rest, pain with movement, radiated pain. 17:35 : Negative for urinary symptoms. 17:35 Neuro: Negative for altered mental status, dizziness, headache, weakness. 17:35 All other systems are negative. Exam: 17:40 Constitutional: The patient appears in no acute distress, alert, awake, cp non-diaphoretic, non-toxic, well developed, well nourished, obese. 17:40 Head/Face: Normocephalic, atraumatic. cp 17:40 Eyes: Periorbital structures: appear normal, Conjunctiva: normal, no exudate, no injection, Sclera: no appreciated abnormality, Lids and lashes: appear normal, bilaterally. 17:40 ENT: External ear(s): are unremarkable, Nose: is normal, Mouth: Lips: moist, Oral mucosa: pink and intact, moist, Posterior pharynx: Airway: no evidence of obstruction, patent. 17:40 Chest/axilla: Inspection: normal, Palpation: is normal, no crepitus, no tenderness. 17:40 Cardiovascular: Rate: normal, Rhythm: regular, Edema: is not appreciated, JVD: is not appreciated. 17:40 Respiratory: the patient does not display signs of respiratory distress, Respirations: normal, no use of accessory muscles, no retractions, labored breathing, is not present, Breath sounds: are clear throughout, no decreased breath sounds, no stridor, no wheezing. 17:40 Abdomen/GI: Inspection: distension, that is mild, Bowel sounds: active, all quadrants, Palpation: soft, in all quadrants, moderate abdominal tenderness, in all quadrants, rebound tenderness, is not appreciated, voluntary guarding, is elicited in all quadrants. 17:40 Back: CVA tenderness, is absent. 17:40 Neuro: Orientation: to person, place \\T\\ time. Mentation: is normal. Vital Signs: 16:24 BP 120 / 82; Pulse 68; Resp 20; Temp 97.7; Pulse Ox 96% on R/A; Weight 108.86 kg; ap3 Height 5 ft. (152.40 cm); Pain 9/10; 18:12 BP 115 / 52; Pulse 62; Resp 18; Pulse Ox 96% on R/A; canseco 21:31 BP 94 / 48; Pulse 62; Resp 18; Pulse Ox 94% on R/A; sm5 22:47 BP 108 / 52; Pulse 58; Resp 18; Pulse Ox 97% on R/A; sm5 04/01 02:05 BP 105 / 49; Pulse 60; Resp 17; Pulse Ox 94% on R/A; sm5 04:33 BP 112 / 50; Pulse 60; Resp 19; Pulse Ox 97% on R/A; sm5 05/16 16:24 Body Mass Index 46.87 (108.86 kg, 152.40 cm) ap3 MDM: 05/16 17:21 Patient medically screened. 19:00 Data reviewed: vital signs, nurses notes, lab test result(s), radiologic studies, CT scan. 19:00 Counseling: I had a detailed discussion with the patient and/or guardian regarding: the historical points, exam findings, and any diagnostic results supporting the discharge/admit diagnosis, lab results, radiology results. Response to treatment: the patient's symptoms have mildly improved after treatment. 19:50 Physician consultation: Ray Barroso was contacted at 19:50, regarding admission, to the medical/surgical unit. patient's condition, after a discussion of the case, a recommendation for transfer for higher level of care is made, spoke with DR Castañeda who requests transfer for GI consult due to history of Crohn's Disease and multiple bowel obstructions. 21:31 Physician consultation: was contacted at 21:20, regarding regarding transfer, to [facility]. consult, patient's condition, spoke with DR García, general surgery, will consult on patient and requests transfer to hospitalist services. 22:45 Physician consultation: was contacted at 22:45, regarding regarding transfer, to [facility]. patient's condition, spoke with hospitalist, DR Tipton, who requests repeat lactate and blood pressure monitoring. 05/16 17:21 Order name: CBC with Diff; Complete Time: 18:49 05/16 18:49 Interpretation: Normal except: RDW 15.3; MPV 7.3. 05/16 17:21 Order name: CMP; Complete Time: 18:49 05/16 18:49 Interpretation: Normal except: CO2 33; GFR 56. 05/16 17:21 Order name: Lipase; Complete Time: 18:49 05/16 17:28 Order name: Lactate; Complete Time: 21:04 cp 05/16 17:28 Order name: Procalcitonin; Complete Time: 21:04 cp 05/16 17:28 Order name: Blood Culture Adult (2) cp 05/16 17:28 Order name: Magnesium; Complete Time: 21:04 cp 05/16 17:28 Order name: PT-INR; Complete Time: 21:04 cp 05/16 17:50 Order name: CT Abd/Pelvis - IV Contrast Only; Complete Time: 18:49 cp 05/16 19:51 Order name: COVID-19/FLU A+B (Document "Date of Onset" if Symptomatic); Complete Time: sm5 22:00 05/16 22:50 Order name: Lactate cp 05/17 03:47 Order name: Lactate EDMS 05/16 17:21 Order name: IV Saline Lock; Complete Time: 17:50 cp 05/16 17:21 Order name: Labs collected and sent; Complete Time: 17:50 cp Administered Medications: 17:50 Drug: Pepcid (famotidine) 20 mg Route: IVP; Site: left antecubital; canseco 17:50 Follow up: Response: No adverse reaction canseco 17:50 Drug: Zofran (Ondansetron) 4 mg Route: IVP; Site: left antecubital; canseco 17:51 Follow up: Response: No adverse reaction canseco 17:50 Drug: morphine 4 mg Route: IVP; Site: left antecubital; canseco 17:50 Follow up: Response: No adverse reaction canseco 18:12 Drug: NS 0.9% 500 ml Route: IV; Rate: bolus; Site: left antecubital; canseco 20:15 Drug: NS 0.9% 500 ml Route: IV; Rate: bolus; Site: left antecubital; sm5 20:15 Drug: morphine 2 mg Route: IVP; Site: left antecubital; sm5 20:15 Drug: Zofran (Ondansetron) 4 mg Route: IVP; Site: left antecubital; sm5 20:16 Drug: SOLU-Medrol (methylPrednisoLONE) 125 mg Route: IVP; Site: left antecubital; sm5 20:16 Drug: Zosyn (piperacillin-tazobactam) 3.375 grams Route: IVPB; Infused Over: 60 mins; 5 Site: left antecubital; 21:48 Drug: NS 0.9% 1000 ml Route: IV; Rate: 125 ml/hr; Site: left antecubital; 5 21:48 Drug: NS 0.9% 1000 ml Route: IV; Rate: 1 bolus; Site: left antecubital; 5 05/17 02:50 Drug: morphine 2 mg Route: IVP; Site: left antecubital; 5 Disposition: 16:30 Co-signature as Attending Physician, Patrick Costa MD. rn Disposition Summary: 05/16/21 19:53 Transfer Ordered Transfer Location: [facility] cp Reason: Higher level of care cp Condition: Stable(05/16/21 19:53) cp Problem: an ongoing problem(05/16/21 19:53) cp Symptoms: have improved(05/16/21 19:53) cp Accepting Physician: DR Tipton(05/17/21 05:10) 5 Diagnosis - Crohn's disease of both small and large intestine with intestinal obstruction cp Forms: - Medication Reconciliation Form cp - SBAR form cp Signatures: Dispatcher [employer] EDPatrick Macdonald MD MD rn Page, Corey, PA PA cp Maida Russo RN RN ap3 Florinda Nagel 5 Nargis Maldonado RN RN 5 Tana Rangel RN RN Corrections: (The following items were deleted from the chart) 05/16 19:53 18:53 Inpatient Admission cp cp 19:53 18:53 Kevin Costa cp cp 19:53 18:53 Telemetry/MedSurg (Inpatient) cp cp 19:53 18:53 Stable cp cp 19:53 18:53 an ongoing problem cp cp 19:53 18:53 have improved cp cp 19:53 18:53 Standard cp cp 19:53 18:53 cp cp 19:53 18:53 Small Bowel Obstruction cp cp 05/17 00:42 05/16 19:53 Doctor cp cp 05/17 01:50 05/16 17:30 The patient presents with abdominal pain that is diffuse, abdominal cp distention that is diffuse. cp 05/17 01:57 05/16 22:05 Physician consultation: was contacted at 22:05, regarding regarding cp transfer, to [facility]. patient's condition, spoke with hospitalist, DR Tipton, who requests repeat lactate and blood pressure monitoring, cp 05/17 05:10 00:42 DR Tipton sm5
[2021-05-16 19:48] LABS: Protime INR 0.9
[2021-05-16] MEDS ORDERED: MORPHINE 2 MG/ML SYR ONE (20:01)
[2021-05-16] MEDS ORDERED: METHYLPREDNISOLONE 125 MG INJ ONE (20:01)
[2021-05-16] MEDS ORDERED: PIPERACIL/TAZO 3.375 GM VIAL IV ONE (20:01)
[2021-05-16] MEDS ORDERED: NA CHLORIDE 0.9% 100 ML IV ONE (20:02)
[2021-05-16 21:26] LABS: SARS-COV-2 RT PCR NEGATIVE (NEGATIVE)
[2021-05-16] MEDS ORDERED: NA CHLORIDE 0.9% 2,000 ML ONE (21:37)
[2021-05-17] MEDS ORDERED: MORPHINE 2 MG/ML SYR ONE (02:48)
[2021-05-17 07:22] VITALS: TEMP 97.7
[2021-05-17 07:28] VITALS: BP 112/50; O2SAT 97
== END 2021-05-17 05:10 | disposition short-term general hospital (02) ==
LOC: ER 16:00 → UNDOADMIN 20:53 → ERHOLD 20:53 → UNDODISIN 05-17 05:10
DX: K50.112 Crohn's disease of large intestine with intestinal obstruction (principal); K50.012 Crohn's disease of small intestine with intestinal obstruction; I10 Essential (primary) hypertension; E03.9 Hypothyroidism, unspecified; F32.A Depression, unspecified; Z20.822 Contact with and (suspected) exposure to COVID-19
CPT/HCPCS: 87040 ×2; 85025; 36415; 83735; 85610; 83605 ×2; 83690; 80053; 84145; 0240U; 74177; 96375; 96374; 99285; Q9967; J2543; J2270 ×2; J7040 ×2; J7030; J2930; J2405 ×2

== ENCOUNTER 2021-05-20 19:14 | Inpatient (IN) | payer BC ==
--- OUTSIDE RECORDS SUMMARY | 2021-05-20 19:19 | XMS REPORT | Continuity of Care Document ---
:1955 Author Organization [facility] t Address [address] [place] [address] Care Team Providers Name Role Phone Kael MEADOWS MD, A Primary Care Physician NILDA PEREZ Attending Clinician Unavailable CASEY Attending Clinician Unavailable Karin PARSONS Attending Clinician Ca VANN Attending Clinician Unavailable LUIS FELIPE Attending Clinician Unavailable KARIN Attending Clinician Unavailable Kaic PARSONS, R. Attending Clinician Yadira MURPHY Attending Clinician Unavailable CASEY Admitting Clinician Unavailable Ca VANN Admitting Clinician Unavailable Payers Payer Name Policy Type Policy Number Effective Date Expiration Date S ource PPO/EPO - BCBS [id number] BCBS PPO POS EPO [id number] 2010 00:00:00 CHOICE Problems Condition Condition Condition Status Onset Resolution Last Treating Co mments Source Name Details Category Date Date Treatment Clinician Date Crohn's Crohn's Disease Active 2020-02 [facility] disease disease 2-22 College (HCCode) (HCCode) 00:00: of 00 Medicin e Essential Essential Disease Active Met hodi hypertensi hypertensi 8-13 [facility] on on 00:00: Hospita 00 l Chest pain Chest pain Disease Active M ethodi 2-02 st 00:00: Hospita 00 l 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:00: [facility]ospita involving involving 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 pectoris SOB SOB Disease Active Methodi (shortness (shortness 2-02 st of breath) of breath) 00:00: Ho spita 00 l Aortic Aortic Disease Active Methodi valve valve 2-02 st disorder disorder 00:00: Hospit a 00 l Allergies, Adverse Reactions, Alerts Allergy Allergy Status Severity Reaction(s) Onset Inactive Treating Comm ents Source Name Type Date Date Clinician BUSPIRON Allergy Active [facility] E 4- 00:00: 00 CIPROFLO Allergy Active [facility] XACIN 4-01 00:00: 00 FUROSEMI Allergy Active [facility] DE 4-01 00:00: 00 METRONID Allergy Active [facility] AZOLE 4-01 HCL 00:00: 00 LATEX Allergy Active Low Itching 2020-[address] [facility] Latex Propensi Active Rash 2020-02 [facility] ty to 2-10 College adverse 00:00: of reaction 00 Medicin s to e substanc e Latex, Propensi Active Itching Methodi Natural ty to st Rubber adverse Hospita reaction l s to drug NO KNOWN Allergy Active [facility] ALLERGIE S Family History Family Member Diagnosis Comments Start Date Stop Date Source Natural father [facility] Natural mother Heart disease [facility]i [facility] Social History Social Habit Start Date Stop Date Quantity Comments Source Exposure to Not sure [facility] of SARS-CoV-2 Medicine (event) History [facility] Drinks History [facility] Tobacco use and 2021-01-25 2021-01-25 Smokeless tobacco [facility] College of exposure 00:00:00 00:00:00 non-user Medicine History SDIA 2018-03-19 2018-03-19 1 [facility] Frequency 00:00:00 00:00:00 Hospita l Alcohol intake 2018-03-19 2018-03-19 Current [facility] 00:00:00 00:00:00 non-drinker of Hospital alcohol (finding) Sex [birth year] [facility] llege of 00:00:00 00:00:00 Medicine Smoking Status Start Date Stop Date Source Never smoked tobacco [facility] Eric ege of Medicine Former smoker 2018-03-19 00:00:00 2018-03-19 [facility] Medic[facility] Ordered Filled Start Stop Current Ordering Indication Dosage Frequency Signature Comments Components Source Medication Medication Date Date Medication? Clinician (SIG) Name Name MINERAL OIL 2021- No Take by Kamala aylor OR 03-29 mouth. College 12:06: 00:00 of 07 :00 Medicin e MINERAL OIL 2021- No Take by B ayherman OR 03-29 mouth. College 12:06: 00:00 of 07 :00 Medicin e Mesalamine 2021- No Take by Ba ylor (PENTASA) 03-29 mouth. College 500 MG CPCR 12:04: 00:00 of 57 :00 Medicin e Mesalamine 2021- No Take by Ba ylor (PENTASA) 03-29 mouth. College 500 MG CPCR 12:04: 00:00 of 57 [...] e on. Lactobacill 2021- No Take by B ambrocio us 2-11 02-11 mouth. Bier (ACIDOPHILU 12:03: 00:00 of S OR) 05 :00 Medicin e Cholecalcif Yes Take by Sixto adams alex 2-11 mouth. Bier (VITAMIN D) 11:46: of 125 MCG 58 Medicin (5000 UT) e CAPS Cholecalcif 0 Yes Take by Sixto adams alex 2-11 mouth. Bier (VITAMIN D) 11:46: of 125 MCG 58 [...] Take 0.125 Ran (LEVSIN) 2-11 mg by Bier 0.125 MG 11:46: mouth of tablet 58 every 4 Medicin hours as e needed for Cramping. metFORMIN Yes Take 1 Ran 500 MG TB24 2-11 capsule by Kirk amaya 11:46: mouth of 58 daily. Medicin e metoprolol Yes 50mg Take 50 mg B aylor (TOPROL-XL) 2-11 by mouth Eric ege 50 MG XL 11:46: daily. of tablet 58 Medicin e Acetaminoph Yes Take by Sixto adams en (TYLENOL 2-11 mouth. Colleg e CHILDRENS) 11:29: Take by of 160 MG/5ML 58 mouth q 4 Medi renea SUSP hours prn e predniSONE Yes [id number] 20mg Take 1 B aylor (DELTASONE) 2-11 Tablet by Col lege 20 MG 00:00: mouth of tablet 00 daily. Medicin Taper by 5 e mg every week. MINERAL OIL 2020-02 Yes Take by Sixto adams OR 2-10 mouth. College 09:20: of 34 Medicin e Cholecalcif 2020-02 Yes Take by Sixto adams alex 2-10 mouth. Bier (VITAMIN D) 09:20: of 125 MCG 34 Medicin (5000 UT) e CAPS ferrous 2020-02 Yes 325mg Take 325 Baylo r sulfate 2-10 mg by Bier (FEROSUL) 09:19: mouth of 325 (65 Fe) 41 daily. Medici n MG tablet e Mesalamine 2020-02 Yes Take by [facility] (PENTASA) 2-10 mouth. Bier 500 MG CPCR 09:19: of 41 Medicin e predniSONE 2020-02 Yes [facility] (DELTASONE) 03-13 College 20 MG 00:00: of tablet 00 Medicin e predniSONE 2020-02- No 20mg Take 20 mg [facility] (DELTASONE) 03-13 by mouth Col [...] 2020-02 Yes 40mg Take 40 mg [facility] e 02-27 by mouth Bier (PROTONIX) 00:00: daily. of 40 MG 00 Medicin tablet e pantoprazol 2020-02- No 40mg Take 40 mg [facility] e 02-27 by [facility] [place]PROTONIX) 00:00: 00:00 daily. of 40 MG 00 :00 Medicin tablet e pantoprazol 2020-02- No 40mg Take 40 mg Ran e 02-27 by mouth Bier (PROTONIX) 00:00: 00:00 daily. of 40 MG 00 :00 Medicin tablet e lisinopril 2020-02 Yes 1 po daily B aylor (PRINIVIL, 02-23 in the [facility]) 5 00:00: morning of MG tablet 00 Medicin e lisinopril 2020-02 Yes 1 po daily B aylor (PRINIVIL, 02-23 in the [facility]) 5 00:00: morning of MG tablet 00 Medicin e lisinopril 2020-02 Yes 1 po daily B aylor (PRINIVIL, 02-23 in the [facility]) 5 00:00: morning of MG tablet 00 Medicin e sertraline 2020-02 Yes [facility] (ZOLOFT) 02-17 Bier 100 MG 00:00: of tablet 00 Medicin e buPROPion 2020-02 Yes TAKE 2 Ran (WELLBUTRIN 1-02 TABLETS BY Co llege ) 75 MG 00:00: MOUTH of tablet 00 EVERY Medicin MORNING e AND 1 TABLET BY MOUTH EVERY EVENING sertraline 2020-02 Yes [facility] (ZOLOFT) 02-17 Bier 100 MG 00:00: of tablet 00 Medicin e buPROPion 2020-02 Yes TAKE 2 Ran (WELLBUTRIN 1-02 TABLETS BY Co llege ) 75 MG 00:00: MOUTH of tablet 00 EVERY Medicin MORNING e AND 1 TABLET BY MOUTH EVERY EVENING sertraline 2020-02 Yes [facility] (ZOLOFT) 02-17 Bier 100 MG 00:00: of tablet 00 Medicin e buPROPion 2020-02 Yes TAKE 2 Ran (WELLBUTRIN 1-02 TABLETS BY Co llege ) 75 MG 00:00: MOUTH of tablet 00 EVERY Medicin MORNING e AND 1 TABLET BY MOUTH EVERY EVENING Adalimumab 2020-02 Yes [facility] (HUMIRA 0-25 Bier PEN) 40 00:00: of MG/0.8ML 00 Medicin injection e Adalimumab 2020-02- No [facility] (HUMIRA 0-25 -14 Bier PEN) 40 00:00: 00:00 of MG/0.8ML 00 :00 Medicin injection e levothyroxi Yes levothyrox [facility] 25 mcg Bier (SYNTHROID) 00:00: tablet of 25 MCG 00 TAKE 1 Medicin tablet TABLET BY e MOUTH DAILY IN THE MORNING WITH JUST A SIP OF WATER. WAIT 30 MINUTES BEFORE EATING OR DRINKING ANYTHING levothyroxi 0 Yes levothyrox [facility] 09-17 ine 25 mcg Bier (SYNTHROID) 00:00: tablet of 25 MCG 00 TAKE 1 Medicin tablet TABLET BY e MOUTH DAILY IN THE MORNING WITH JUST A SIP OF WATER. WAIT 30 MINUTES BEFORE EATING OR DRINKING ANYTHING levothyroxi 0 Yes levothyrox [facility] 09-17 ine 25 mcg Bier (SYNTHROID) 00:00: tablet of 25 MCG 00 TAKE 1 Medicin tablet TABLET BY e MOUTH DAILY IN THE MORNING WITH JUST A SIP OF WATER. WAIT 30 MINUTES BEFORE EATING OR DRINKING ANYTHING lisinopriL- 0 Yes [id number] 1{tbl} QD TAKE 1 [facility]i hydrochloro 7-[address] thiazide 00:00: MOUTH Hospita (PRINZIDE) 00 DAILY l 10-12.5 mg per tablet metoprolol 2020-0 Yes [id number] TAKE 1 Me thodi tartrate 7-29 TABLET(50 st (LOPRESSOR) 00:00: MG) BY Hosp mich 50 mg 00 MOUTH l tablet TWICE DAILY metoprolol 2020-0 202- No [id number] TAKE 1 M ethodi tartrate 4-26 07-29 TABLET(50 st (LOPRESSOR) 00:00: 00:00 MG) BY Hos alba 50 mg 00 :00 MOUTH l tablet TWICE DAILY lisinopriL- 2020-0 202- No [id number] 1{tbl} QD TAKE 1 [facility] hydrochloro 4-26 07-[address] thiazide 00:00: 00:00 MOUTH Hospita (PRINZIDE) 00 :00 DAILY l 10-12.5 mg per tablet lisinopriL- 2020-0 202- No [id number] 1{tbl} QD Take 1 [facility] hydrochloro 1-25 04-[address] thiazide 00:00: 00:00 mouth Hospita (PRINZIDE) 00 :00 daily. l 10-12.5 mg per tablet metoprolol 2020-0 202- No [id number] 50mg Q.5D Take 1 M ethodi tartrate 1-25 04-26 tablet (50 st (LOPRESSOR) 00:00: 00:00 mg total) Hospita 50 mg 00 :00 by mouth 2 l tablet (two) times a day. lisinopril- 2020- No [id number] 1{tbl} QD TAKE 1 [facility] hydrochloro 03-[address] thiazide 00:00: 00:00 MOUTH Hospita (PRINZIDE) 00 :00 DAILY l 10-12.5 mg per tablet metoprolol 2020- No [id number] TAKE 1 M ethodi tartrate 03-17 TABLET(50 st (LOPRESSOR) 00:00: 00:00 MG) BY [...] 2021- No sertraline Ran (ZOLOFT) 50 02-17 02-11 50 mg Colleg e MG tablet 00:00: [...] by Met hodi in-folic 8-[address] ac-vet703 16:39: Hospita 200 mcg 47 l tablet coenzyme Yes [facility] Q10 (CO 09-23 st Q-10) 100 00:00: Hospita mg capsule 00 l cholecalcif Yes Method i alex, 8-02 st vitamin D3, 00:00: Hospit a (VITAMIN 00 l D3) 5,000 unit tablet docusate 2018-0 Yes [facility] sodium 8-01 st (COLACE) 00:00: Hospita 100 MG 00 l capsule ferrous 2018-0 Yes [facility] sulfate 325 7-17 st (65 FE) MG 00:00: Hospita tablet 00 l sertraline 0 Yes [facility] (ZOLOFT) 7-15 st 100 MG 00:00: Hospita tablet 00 l Vital Signs Vital Name Observation Time Observation Value Comments Source WEIGHT 2021-05-17 12:46:00 52.98 kg WEIGHT 2021-05-17 06:25:00 107.911 kg WEIGHT 2021-05-17 12:46:00 52.98 kg WEIGHT 2021-05-17 06:25:00 107.911 kg Body weight 2021-03-29 17:28:00 [facility] BMI 2021-03-29 17:28:00 46.10 kg/m2 [facility] Systolic blood 2021-03-29 17:28:00 143 mm[Hg] [facility] pressure Medicine Diastolic blood 2021-03-29 17:28:00 82 mm[Hg] [facility] pressure Medicine Heart rate 2021-03-29 17:28:00 60 /min [facility] Body temperature 2021-03-29 17:28:00 36.22 Nadiya [facility] Respiratory rate 2021-03-29 17:28:00 16 /min [facility] Body height 2021-03-29 17:28:00 154.[address] [facility] ollege of Medicine Body height 2021-03-01 15:04:00 154.9 [facility] weight 2021-03-01 15:04:00 107.593 kg [facility] BMI 2021-03-01 15:04:00 44.82 kg/m2 [facility] HEIGHT 2021-02-03 05:20:00 154.9 cm WEIGHT 2021-02-03 05:20:00 106.505 kg HEIGHT 2021-02-03 05:20:00 154.9 cm WEIGHT 2021-02-03 05:20:00 106.505 kg Systolic blood 2021-01-25 15:06:00 122 mm[Hg] [facility] Medicine Diastolic blood 2021-01-25 15:06:00 80 mm[Hg] [facility] Medicine Heart rate 2021-01-25 15:06:00 81 /min [facility] Body temperature 2021-01-25 15:06:00 36.28 Nadiya [facility] Respiratory rate 2021-01-25 15:06:00 14 /min [facility] Body height 2021-01-25 15:06:00 154.9 cm [facility] Body weight 2021-01-25 15:06:00 106.142 kg [facility] BMI 2021-01-25 15:06:00 44.21 kg/m2 [facility] Procedures This patient has no known procedures. Plan of Care Planned Activity Planned Date Details Comments Source Future Scheduled 2021-04-04 Screening for malignant [facility] Test 13:40:02 neoplasm of colon Medicine (procedure) [code = 670940413] Future Scheduled 2021-04-04 Screening for malignant [facility] Test 13:40:02 neoplasm of breast Medicine (procedure) [code = 726695077] Future Scheduled 2021-04-04 TETANUS SHOT (ADULT) [facility] Test 13:40:02 [code = TETANUS SHOT Medicin e (ADULT)] Future Scheduled 2021-04-04 BMI FOLLOW UP PLAN [code [facility] Test 13:40:02 = BMI FOLLOW UP PLAN] Medici ne Future Scheduled 2021-04-04 Hepatitis C screening [facility] Test 13:40:02 (procedure) [code = Medicine 272016473] Future Scheduled 2021-04-04 Human immunodeficiency B [facility] Test 13:40:02 virus screening Medicine (procedure) [code = 835442340] Future Scheduled 2021-04-04 Screening for malignant [facility] Test 13:40:02 neoplasm of cervix Medicine (procedure) [code = 266741863] Future Scheduled 2021-04-04 ZOSTER VACCINE (1 of 2) [facility] Test 13:40:02 [code = ZOSTER VACCINE (1 Me dicine of 2)] Future Scheduled 2021-04-04 FLU VACCINE > 6 MONTHS B [facility] of Test 13:40:02 [code = FLU VACCINE > 6 Medi cine MONTHS] Future Scheduled 2021-04-04 COVID-19 Vaccine (2 - Ba [facility] of Test 13:40:02 Pfizer 3-dose series) Medici ne [code = COVID-19 Vaccine (2 - Pfizer 3-dose series)] Future Scheduled 2021-04-04 Screening for malignant [facility] of Test 13:40:02 neoplasm of colon Medicine (procedure) [code = 677777939] Future Scheduled 2021-04-04 Screening for malignant [facility] of Test 13:40:02 neoplasm of breast Medicine (procedure) [code = 034377464] Future Scheduled 2021-04-04 TETANUS SHOT (ADULT) [facility] of Test 13:40:02 [code = TETANUS SHOT Medicin e (ADULT)] Future Scheduled 2021-04-04 BMI FOLLOW UP PLAN [code [facility] of Test 13:40:02 = BMI FOLLOW UP PLAN] Medici ne Future Scheduled 2021-04-04 Hepatitis C screening [facility] of Test 13:40:02 (procedure) [code = Medicine 520096759] Future Scheduled 2021-04-04 Human immunodeficiency [facility] of Test 13:40:02 virus screening Medicine (procedure) [code = 588302888] Future Scheduled 2021-04-04 Screening for malignant [facility] of Test 13:40:02 neoplasm of cervix Medicine (procedure) [code = 673238955] Future Scheduled 2021-04-04 ZOSTER VACCINE (1 of 2) [facility] Test 13:40:02 [code = ZOSTER VACCINE (1 Me dicine of 2)] Future Scheduled 2021-04-04 FLU VACCINE > 6 MONTHS B [facility] of Test 13:40:02 [code = FLU VACCINE > 6 Medi cine MONTHS] Future Scheduled 2021-04-04 COVID-19 Vaccine (2 - Ba [facility] of Test 13:40:02 Pfizer 3-dose series) Medici ne [code = COVID-19 Vaccine (2 - Pfizer 3-dose series)] Future Scheduled 2021-01-25 Screening for malignant [facility] of Test 09:15:59 neoplasm of colon Medicine (procedure) [code = 497586484] Future Scheduled 2021-01-25 Screening for malignant [facility] Test 09:15:59 neoplasm of breast Medicine (procedure) [code = 509469177] Future Scheduled 2021-01-25 TETANUS SHOT (ADULT) [facility] Test 09:15:59 [code = TETANUS SHOT Medicin e (ADULT)] Future Scheduled 2021-01-25 Hepatitis C screening [facility] 09:15:59 (procedure) [code = Medicine 839214811] Future Scheduled 2021-01-25 Human immunodeficiency B [facility] 09:15:59 virus screening Medicine (procedure) [code = 939445060] Future Scheduled 2021-01-25 Screening for malignant [facility] Test 09:15:59 neoplasm of cervix Medicine (procedure) [code = 461078427] Future Scheduled 2021-01-25 ZOSTER VACCINE (1 of 2) [facility] 09:15:59 [code = ZOSTER VACCINE (1 Me dicine of 2)] Future Scheduled 2021-01-25 FLU VACCINE > 6 MONTHS B [facility] Test 09:15:59 [code = FLU VACCINE > 6 Medi cine MONTHS] Future Scheduled 2021-01-25 COVID-19 Vaccine (2 - Ba [facility] Test 09:15:59 Pfizer 2-dose series) Medici ne [code = COVID-19 Vaccine (2 - Pfizer 2-dose series)] Future Scheduled COVID-19 VACCINE (1) [facility] Test [code = COVID-19 VACCINE Hos pital (1)] Future Scheduled Hepatitis C screening [facility] Test (procedure) [code = Hospital 340216852] Future Scheduled [facility] malignant [facility] neoplasm of cervix Hospital (procedure) [code = 118012117] Future Scheduled BREAST CANCER SCREENING [facility] [code = BREAST CANCER Hospit al SCREENING] Future Scheduled COLONOSCOPY SCREENING [facility] Test [code = COLONOSCOPY Hospital SCREENING] Future Scheduled SHINGLES VACCINES (#1) M ethodist Test [code = SHINGLES VACCINES Ho spital (#1)] Future Scheduled INFLUENZA VACCINE [code = [facility] INFLUENZA VACCINE] Hospital Encounters Start End Encounter Admission Attending Care Care Encounter Source Date/Time Date/Time Type Type Clinicians Facility Department ID 2021-05-20 2021-05-20 Outpatient M [facility] [id number] [facility] 08:32:32 08:32:32 Colleg e of Medicin e 2021-05-17 2021-05-19 [id number] 05:35:00 16:42:00 AHMED 2021-04-22 2021-04-22 [id number] [facility] 08:34:02 23:59:00 Colleg e of Medicin e 2021-04-08 2021-04-08 [id number] 08:22:34 23:59:00 Colleg e of Medicin e 2021-03-29 2021-03-29 Office Frazier ADINA [id number] [facility] 11:00:00 13:34:50 Visit Manreet AMBULATOR [id number] College Y 0.2.7.2.686 of [id number] Medi renea 325 e 2021-03-01 2021-03-01 Office KIM Frazier [id number] [place] [address] 09:00:00 11:07:59 Visit Manreet AMBULATOR [id number] College Y 0.2.7.2.686 of [id number] Medi renea 325 e 2021-02-03 2021-02-06 Inpatient ER [facility] [id number] [facility] 05:14:00 16:07:00 LIYAVENUG 2021-01-25 2021-01-25 Office FRAZIER KIM [id number] [place] [address] 00:00:00 19:54:04 Visit MANREET AMBULATOR 350.1.13.21 College Y 0.2.7.2.686 of [id number] Medi renea 325 e 2020-09-12 2020-09-12 Kiki Barone2.840.1 [id number] Method 00:00:00 00:00:00 Ace Taylor [address]74.1.[address] 3.430.2.7 Hospit a .3.530124 l .8 2020-06-11 2020-06-11 Toby Clemons 1.2.840.1 [id number] Methodi 00:00:00 00:00:00 Ace Taylor [address]0002.1.[address] 3.430.2.7 Hospit a .3.505169 l .8 2020-03-12 2020-03-12 Orders Javier May 1.2.840.1 [id number] Methodi 00:00:00 00:00:[address] 3.430.2.7 Hospit a .3.007425 l .8 Results Test Description Test Time Test Comments Results Result Comments Source BASIC METABOLIC PANEL 2021-05-19 05:35:09 Test Item Value Reference Range Interpretation Comme nts SODIUM (BEAKER) (test code 143 meq/L 136-145 = 381) POTASSIUM (BEAKER) (test 4.1 meq/L 3.5-5.1 code = 379) CHLORIDE (BEAKER) (test 107 meq/L 98-107 code = 382) CO2 (BEAKER) (test code = 30 meq/L 22-29 H 355) BLOOD UREA NITROGEN 7 mg/dL 7-21 (BEAKER) (test code = 354) CREATININE (BEAKER) (test 0.89 mg/dL 0.57-1.25 code = 358) GLUCOSE RANDOM (BEAKER) 82 mg/dL 70-105 (test code = 652) CALCIUM (BEAKER) (test code 8.9 mg/dL 8.4-10.2 = 697) EGFR (BEAKER) (test code = 64 mL/min/1.73 sq m ESTIMATED GFR IS NOT 1092) ACCURATE CRE ATININE CLEARANCE IN NM EDICTING GLOMERULAR FILT RATION RATE. ESTIMATED GFR IS NOT APPLICABLE FOR DIALYSIS PATIENTS. Trial Manager ID - PIAYA LLACTIC ACID, [id number] 05:11:20 Test Item Value Reference Range Interpretation Comments LACTATE BLOOD VENOUS (2) (BEAKER) 2.49 mmol/L 0.50-2.20 H (test code = 2872) Trial Manager ID - DBCBC W/PLT COUNT & AUTO [id number] 05:00:57 Test Item Value Reference Range Interpretation Comments WHITE BLOOD CELL COUNT (BEAKER) 7.2 K/ L 3.5-10.5 (test code = 775) RED BLOOD CELL COUNT (BEAKER) 3.72 M/ L 3.93-5.22 L (test code = 761) HEMOGLOBIN (BEAKER) (test code = 10.8 GM/DL 11.2-15.7 L 410) HEMATOCRIT (BEAKER) (test code = 35.9 % 34.1-44.9 411) MEAN CORPUSCULAR VOLUME (BEAKER) 96.5 fL 79.4-94.8 H (test code = 753) MEAN CORPUSCULAR HEMOGLOBIN 29.0 pg 25.6-32.2 (BEAKER) (test code = 751) MEAN CORPUSCULAR HEMOGLOBIN CONC 30.1 GM/DL 32.2-35.5 L (BEAKER) (test code = 752) RED CELL DISTRIBUTION WIDTH 14.8 % 11.7-14.4 H (BEAKER) (test code = 412) PLATELET COUNT (BEAKER) (test 250 K/CU MM 150-450 code = 756) MEAN PLATELET VOLUME (BEAKER) 9.2 fL 9.4-12.3 L (test code = 754) NUCLEATED RED BLOOD CELLS 0 /100 WBC 0-0 (BEAKER) (test code = 413) NEUTROPHILS RELATIVE PERCENT 47 % (BEAKER) (test code = 429) LYMPHOCYTES RELATIVE PERCENT 42 % (BEAKER) (test code = 430) MONOCYTES RELATIVE PERCENT 9 % (BEAKER) (test code = 431) EOSINOPHILS RELATIVE PERCENT 2 % (BEAKER) (test code = 432) BASOPHILS RELATIVE PERCENT 0 % (BEAKER) (test code = 437) NEUTROPHILS ABSOLUTE COUNT 3.34 K/ L 1.56-6.13 (BEAKER) (test code = 670) LYMPHOCYTES ABSOLUTE COUNT 2.97 K/ L 1.18-3.74 (BEAKER) (test code = 414) MONOCYTES ABSOLUTE COUNT (BEAKER) 0.62 K/ L 0.24-0.36 H (test code = 415) EOSINOPHILS ABSOLUTE COUNT 0.15 K/ L 0.04-0.36 (BEAKER) (test code = 416) BASOPHILS ABSOLUTE COUNT (BEAKER) 0.03 K/ L 0.01-0.08 (test code = 417) IMMATURE GRANULOCYTES-RELATIVE 1 % 0-1 PERCENT (BEAKER) (test code = 2801) [id number] 06:40:18 Test Item Value Reference Range Interpretation Comments PHOSPHORUS (BEAKER) 3.3 mg/dL 2.3-4.7 Specimen slightly (test code = 604) hemolyzed Trial Manager ID - DBBASIC METABOLIC [id number] 06:40:18 Test Item Value Reference Range Interpretation Comments SODIUM (BEAKER) 141 meq/L 136-145 (test code = 381) POTASSIUM (BEAKER) 3.7 meq/L 3.5-5.1 Specimen slightly (test code = 379) hemolyzed CHLORIDE (BEAKER) 106 meq/L 98-107 (test code = 382) CO2 (BEAKER) (test 24 meq/L 22-29 code = 355) BLOOD UREA NITROGEN 9 mg/dL 7-21 (BEAKER) (test code = 354) CREATININE (BEAKER) 0.94 mg/dL 0.57-1.25 Specimen slightly (test code = 358) hemolyzed GLUCOSE RANDOM 76 mg/dL 70-105 (BEAKER) (test code = 652) CALCIUM (BEAKER) 9.0 mg/dL 8.4-10.2 (test code = 697) EGFR (BEAKER) (test 60 mL/min/1.73 ESTIMA CHAPARRO GFR IS code = 1092) sq m NOT ACCURATE CREATININE CLEARANCE IN PREDICTING GLOMERULAR FILTRATION RATE . ESTIMATED GFR I S NOT APPLICABLE FOR DIALYSIS PATIEN TS. Trial Manager ID - [id number] 06:40:17 Test Item Value Reference Range Interpretation Comments MAGNESIUM (BEAKER) 1.9 mg/dL 1.6-2.6 Specimen slightly (test code = 627) hemolyzed Trial Manager ID - DBCBC (HEMOGRAM ONLY)2021-05-18 05:39:35 Test Item Value Reference Range Interpretation Comments WHITE BLOOD CELL COUNT (BEAKER) 7.3 K/ L 3.5-10.5 (test code = 775) RED BLOOD CELL COUNT (BEAKER) 3.87 M/ L 3.93-5.22 L (test code = 761) HEMOGLOBIN (BEAKER) (test code = 11.5 GM/DL 11.2-15.7 410) HEMATOCRIT (BEAKER) (test code = 36.4 % 34.1-44.9 411) MEAN CORPUSCULAR VOLUME (BEAKER) 94.1 fL 79.4-94.8 (test code = 753) MEAN CORPUSCULAR HEMOGLOBIN 29.7 pg 25.6-32.2 (BEAKER) (test code = 751) MEAN CORPUSCULAR HEMOGLOBIN CONC 31.6 GM/DL 32.2-35.5 L (BEAKER) (test code = 752) RED CELL DISTRIBUTION WIDTH 14.8 % 11.7-14.4 H (BEAKER) (test code = 412) PLATELET COUNT (BEAKER) (test 291 K/CU MM 150-450 code = 756) MEAN PLATELET VOLUME (BEAKER) 9.2 fL 9.4-12.3 L (test code = 754) NUCLEATED RED BLOOD CELLS 0 /100 WBC 0-0 (BEAKER) (test code = 413) SARS-COV2/RT-PCR ([facility])2021-05-17 14:30:52 Test Item Value Reference Range Interpretation Comments SARS-COV2/RT-PCR (test Negative Not Detected, Negative, code = 3150702) See external report for linked test SARS-COV-2 PERFORMING LAB [facility] (test code = 1729851) Negative result for this test determines that SARS-CoV-2 RNA was not present in the specimen above the Limit of Detection (LOD). However, Negative results do not preclude SARS-CoV-2 infection and should not be used as the sole basis for treatment or patient management decisions. Negative results mustbe combined with clinical observations, patient history, and epidemiological information. A false negative result may occur if a specimen is improperly collected, transported or handled. A false negative result should be considered if patient's recent exposures or clinical presentation indicate that COVID-19 (SARS-CoV-2) is likely and diagnostic tests for other causes of illness are negative. Re-testing should be considered in cases of suspected false negatives.The limit of detection for this assay is 800 copies/mL.This SARS CoV-2 test is a real-time RT-PCR test intended for the qualitative detection of nucleic acid from SARS-CoV-2 in a nasopharyngeal swab specimen collected from individuals susp ected of COVID-19 by their healthcare provider.This test has not been Food and Drug Administration (FDA) cleared or approved. This is a modified version of an approved Emergency Use Authorization (EUA) and is in the process of review by the FDA. Once authorized by the FDA, the issued EUA will be effective until the declaration that circumstances exist justifying the authorization of the emergency use of in vitro diagnostic tests for detection and/or diagnosis of COVID-19 is terminated under Section 564(b)(2) of the Act or the EUA is revoked under Section 564(g) of the Act.Fact Sheet for Healthcare Providers:https://www.BME[employer]/sites/default/files/product/documents/Fact_Shee l_XD_Pvluhnfoc_Aeba_GPGY-BzU-8.pdfFact Sheet for Healthcare Patients:https://www.[employer]/sites/default/files/product/ documents/Rmxz_Jzohl_Izcguzeg_Zufr_KJKW-VdN-7.pdfPerforming Laboratory:[facility], [place] [address]ZLY, CHEST, 1 VIEW, NON [id number] 11:04:00Reason for exam:->new admission with possible entero-enteric fistulaShould this be performed at the bedside?->Yes [facility] 1955 Sex: FFINAL REPORT 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 FINDINGS: Lines, tubes, and devices: None.Lungs and pleura: Clear lungs. No effusion.Heart and mediastinum: Normal heart size. Unremarkable mediastinal contours.Osseous structures: No acute abnormality. Mild spondylosis and facet arthropathy are present within the spine. Other: None. IMPRESSION: No acute intrathoracic abnormality. Signed: John Becerril MDReport Verified Date/Time: 05/17/2021 11:04:57 Reading Location: [facility] Radiology Reading Room RAD, ABDOMEN/KUB, 1 VIEW [id number] 10:21:00Reason for exam:->concern for small bowel obstructionShould this be performed at the bedside?->Yes [facility] 1955 Sex: FFINAL REPORT RAD, ABDOMEN/KUB, 1 VIEW AP CLINICAL INDICATION: concern for small bowel obstruction COMPARISON: 02/03/2021 TECHNIQUE: Frontal radiograph(s) of the abdomen.FINDINGS: The bowel gas pattern consists of dilated small bowel loops and air- filled large bowel loops. Evaluation for free air is limited by portable supine technique. Within these limitations, no f ree air is identified. Contrast is seen within the urinary bladder. IMPRESSION: Dilated small bowel loops with air-filled large bowel loops, which may represent ileus or partial small bowel obstruction. Signed: John Becerril MDReport Verified Date/Time: 05/17/2021 10:21:20 Reading Location: [facility] Radiology Reading Room [id number] 09:42:25 Test Item Value Reference Range Interpretation Comments PHOSPHORUS (BEAKER) (test code = 2.6 mg/dL 2.3-4.7 604) Trial Manager ID - DBBASIC METABOLIC [id number] 09:42:24 Test Item Value Reference Range Interpretation Comments SODIUM (BEAKER) 142 meq/L 136-145 (test code = 381) POTASSIUM (BEAKER) 4.0 meq/L 3.5-5.1 (test code = 379) CHLORIDE (BEAKER) 106 meq/L 98-107 (test code = 382) CO2 (BEAKER) (test 26 meq/L 22-29 code = 355) BLOOD UREA NITROGEN 10 mg/dL 7-21 (BEAKER) (test code = 354) CREATININE (BEAKER) 0.84 mg/dL 0.57-1.25 (test code = 358) GLUCOSE RANDOM 122 mg/dL 70-105 H (BEAKER) (test code = 652) CALCIUM (BEAKER) 8.8 mg/dL 8.4-10.2 (test code = 697) EGFR (BEAKER) (test 68 mL/min/1.73 ESTIMA CHAPARRO GFR IS code = 1092) sq m NOT ACCURATE CREATININE CLEARANCE IN PREDICTING GLOMERULAR FILTRATION RATE . ESTIMATED GFR I S NOT APPLICABLE FOR DIALYSIS PATIEN TS. Trial Manager ID - [id number] 09:42:24 Test Item Value Reference Range Interpretation Comments MAGNESIUM (BEAKER) (test code = 1.9 mg/dL 1.6-2.6 627) Trial Manager ID - DBPROTHROMBIN [id number] 09:28:59 Test Item Value Reference Range Interpretation Comments PROTIME (BEAKER) 12.9 seconds 11.9-14.2 (test code = 759) INR (BEAKER) (test 0.99 See_Comment [Automat ed message] code = 370) The system [employer] generated this result transmitted ref erence range: <=5.90. The reference range was not used to int erpret this result as normal/abnormal . RECOMMENDED COUMADIN/WARFARIN INR THERAPY RANGESSTANDARD DOSE: 2.0 - 3.0 Includes: PROPHYLAXIS forvenous thrombosis, systemic embolization; TREATMENT for venous thrombosis and/or pulmonary embolus.HIGH RISK: Target INR is 2.5-3.5 for patients with mechanical heart valves.CBC (HEMOGRAM ONLY)2021-05-17 09:16:15 Test Item Value Reference Range Interpretation Comments WHITE BLOOD CELL COUNT (BEAKER) 6.1 K/ L 3.5-10.5 (test code = 775) RED BLOOD CELL COUNT (BEAKER) 3.71 M/ L 3.93-5.22 L (test code = 761) HEMOGLOBIN (BEAKER) (test code = 10.9 GM/DL 11.2-15.7 L 410) HEMATOCRIT (BEAKER) (test code = 35.2 % 34.1-44.9 411) MEAN CORPUSCULAR VOLUME (BEAKER) 94.9 fL 79.4-94.8 H (test code = 753) MEAN CORPUSCULAR HEMOGLOBIN 29.4 pg 25.6-32.2 (BEAKER) (test code = 751) MEAN CORPUSCULAR HEMOGLOBIN CONC 31.0 GM/DL 32.2-35.5 L (BEAKER) (test code = 752) RED CELL DISTRIBUTION WIDTH 14.5 % 11.7-14.4 H (BEAKER) (test code = 412) PLATELET COUNT (BEAKER) (test 261 K/CU MM 150-450 code = 756) MEAN PLATELET VOLUME (BEAKER) 9.2 fL 9.4-12.3 L (test code = 754) NUCLEATED RED BLOOD CELLS 0 /100 WBC 0-0 (BEAKER) (test code = 413) HEPATITIS B [id number] 20:49:20 Test Item Value Reference Range Interpretation Comments HEPATITIS B CORE TOTAL ANTIBODY Nonreactive Nonreactive (BEAKER) (test code = 497) HEPATITIS B SURFACE ANTIBODY < mIU/mL <8.0 (BEAKER) (test code = 647) HEPATITIS B SURFACE ANTIGEN (2) Nonreactive Nonreactive (BEAKER) (test code = 2585) Trial Manager ID - BSOperator ID - BSVITAMIN D, [id number] 18:58:29 Test Item Value Reference Range Interpretation Comments VITAMIN D 25-OH (BEAKER) (test 48.0 ng/mL 6.6-49.9 code = 2764) Effective 11/26/2016: Reference Range ChangeNew: 6.6-49.9 ng/mL Previous: 13.0-47.8 ng/mLRecommended Vitamin D Target Range: 30.0-40.0 ng/mLOperator ID - BSC. DIFFICILE GDH [id number] 13:19:34 Test Item Value Reference Range Interpretation Comments CDT TOXIN (test code Negative Negative = [id number]) CDT GDH ANTIGEN (test Negative Negative No ind ication of code = [id number]) Clostridi um difficile infection and n o colonization. Discontinue ent randy isolation and t herapy. Testing performed by [employer] Rapid Cassette Assay. For GDH, published sensitivity of the assay is 98.7% compared to cytotoxicity testing. For Toxin AB, published sensitivity is 87.8% and specificity 99.4% compared to cytotoxicity testing.Verification of kit performance was done by the [facility] Microbiology Lab prior to clinical use.BASIC METABOLIC [id number] 05:52:32 Test Item Value Reference Range Interpretation [...] S NOT APPLICABLE FOR DIALYSIS PATIEN TS. Trial Manager ID - PIAYA LCBC (HEMOGRAM ONLY)2021-02-06 [...] (BEAKER) (test code = 413) BASIC METABOLIC [id number] 05:38:29 Test Item Value Reference Range Interpretation [...] S NOT APPLICABLE FOR DIALYSIS PATIEN TS. Trial Manager ID - DEANNA MC-REACTIVE [id number] 05:38:29 Test Item Value Reference Range Interpretation Comments C-REACTIVE PROTEIN (BEAKER) (test 3.86 mg/dL 0.00-0.50 H code = 676) Trial Manager ID - DEANNA MCBC (HEMOGRAM ONLY)2021-02-05 [...] 0-0 (BEAKER) (test code = 413) CT, [id number] 16:56:00Unlisted Reason for Exam - Click Yes and Enter Reason Below->NoIs this for enterography?->NoWill this procedure require oral contrast?->No [facility] 1955 Sex: FFINAL REPORT TECHNIQUE: CT [...] MDReport Verified Date/Time: 02/04/2021 16:56:27 Reading Location: [facility] Diagnostic Imaging Reading Room - [place] [address] VITAMIN B12 AND [id number] 07:14:11 Test Item Value Reference Range Interpretation Comments VITAMIN B12 187 pg/mL 213-816 L (BEAKER) (test code = 774) FOLATE (BEAKER) 18.90 ng/mL See_Comment [Automated message] (test code = 362) The system which generated this result transmitted ref erence range: >=7.00. The reference range was not used to interpr et this result as normal/abnormal . Trial Manager ID - LIDA [id number] 07:14:10 Test Item Value Reference Range Interpretation Comments FERRITIN (BEAKER) (test code = 110.79 ng/mL 5.00-275.00 361) Trial Manager ID - LIDA ALANIZON, TIBC, % SAT. (WITHOUT FERRITIN)2021-02-04 06:55:40 Test Item Value Reference Range Interpretation Comments IRON (BEAKER) (test code = 547) 75.0 ug/dL 40.0-160.0 TOTAL IRON BINDING CAPACITY 258 ug/dL 250-450 (BEAKER) (test code = 769) IRON % SATURATION (2) (BEAKER) 29 % 20-55 (test code = 2590) Trial Manager ID - LIDA FHEPATIC FUNCTION [id number] 16:57:11 Test Item Value Reference Range Interpretation [...] Specimen slightly (test code = 347) hemolyzed Trial Manager ID Kimberlee PERAZA LHEMOGLOBIN [id number] 12:28:44 Test Item Value Reference Range Interpretation Comments HEMOGLOBIN A1C (BEAKER) (test code = 5.3 % 4.3-6.1 368) [id number] 09:47:42 Test Item Value Reference Range Interpretation Comments PHOSPHORUS (BEAKER) 3.5 mg/dL 2.3-4.7 Specimen slightly (test code = 604) hemolyzed Trial Manager ID - KARMEN LBASIC METABOLIC [id number] 09:47:42 Test Item Value Reference Range Interpretation [...] S NOT APPLICABLE FOR DIALYSIS PATIEN TS. Trial Manager ID - KARMEN [id number] 09:47:41 Test Item Value Reference Range Interpretation Comments MAGNESIUM (BEAKER) 2.2 mg/dL 1.6-2.6 Specimen slightly (test code = 627) hemolyzed Trial Manager ID - KARMEN LC-REACTIVE [id number] 09:45:23 Test Item Value Reference Range Interpretation Comments C-REACTIVE PROTEIN (BEAKER) (test 3.67 mg/dL 0.00-0.50 H code = 676) Trial Manager ID - KARMEN LCBC W/PLT COUNT & AUTO [id number] 09:23:38 Test Item Value Reference Range Interpretation [...] code = 2801) RAD, ABDOMEN/KUB, 1 VIEW [id number] 07:28:00Reason for exam:->NGT tube placementShould this be performed at the bedside?->Yes [facility] 1955 Sex: FFINAL REPORT RAD, ABDOMEN/KUB, 1 VIEW AP INDICATION: NGT tube placementCOMPARISON: None TECHNIQUE: Limited portable radiograph of the lower chest and upper abdomen was acquired for purposes of evaluating tube placement FINDINGS/IMPRESSION:NG side-port overlies the stomach Signed: Rory Quiroga Verified Date/Time: 02/03/2021 07:28:00
[2021-05-20] MEDS ORDERED: METHYLPREDNISOLONE 125 MG INJ ONE (20:24)
[2021-05-20 20:26] LABS: Absolute Lymphocytes (CBC) 1.8 K/uL (0.7-4.9); Lymphocytes % 24.6 % (15.3-44.8); RBC Red Blood Cell Count 4.17 M/uL (3.86-4.86)
[2021-05-20] MEDS ORDERED: NA CHLORIDE 0.9% 1,000 ML ONE (20:26)
[2021-05-20] MEDS ORDERED: ONDANSETRON 4 MG/2 ML VIAL ONE (20:26)
[2021-05-20] MEDS ORDERED: MORPHINE 4 MG/ML SYR ONE ×2 (20:26→22:16)
[2021-05-20 20:47] LABS: Albumin 3.2 g/dL (3.4-5.0); Bilirubin Total 0.5 mg/dL (0.2-1.0); Potassium 3.4 mmol/L (3.5-5.1); Protein, Total 6.6 g/dL (6.4-8.2)
--- NOTE | 2021-05-20 21:46 | RAD REPORT ---
EXAM DESCRIPTION: CT - Abdomen Pelvis W Contrast - 05/20/2021 9:27 pm CLINICAL HISTORY: Abdominal pain COMPARISON: April 2021 TECHNIQUE: Computed axial tomography of the abdomen pelvis was obtained. 100 cc Isovue-300 was admin istered intravenously. Oral contrast was not requested which limits evaluation of bowel. All CT scans are performed using dose optimization technique as appropriate and may include automated exposure control or mA/KV adjustment according to patient size. FINDINGS: The liver, spleen, pancreas, adrenal and kidneys appear unremarkable. Moderate to marked dilatation of jejunum. There is an abrupt transition within the central upper abdo men of small bowel caliber. The ileum is decompressed. There is questionable soft tissue within and t he jejunum at the transition point. Mucosal thickening involves the cecum and terminal ileum with stranding in the adjacent fat. Small umbilical hernia IMPRESSION: Small bowel obstruction. Questionable soft tissue within the distal jejunum at the site of obstruction. Mucosal thickening involving cecum and terminal ileum with stricture may be the sequela of Crohn's di mirnae
--- NOTE | 2021-05-20 21:59 | EDPHYS ---
Physician Documentation [facility] Name: Kindra Novoa Age: 65 yrs Sex: Female : 1955 Arrival Date: 05/20/2021 Time: 19:16 Bed 20 Private MD: DANETTE Physician Esa Swain HPI: 05/20 19:59 This 65 yrs old Female presents to ER via Wheelchair with complaints of jmm Abdominal Pain. 19:59 The patient presents with abdominal pain. Onset: The symptoms/episode began/occurred jmm gradually, this morning. The symptoms do not radiate. Associated signs and symptoms: Pertinent positives: nausea and vomiting. The symptoms are described as achy. The patient has experienced similar episodes in the past, chronically. This is a 65-year-old female with a history of Crohn's disease the presents emerged department with complaints of diffuse abdominal pain beginning earlier this morning. Symptoms began after an IV infusion of Remicade. Patient is 1day after being discharged from an inpatient stay for Crohn's flare.. Historical: - Allergies: 19:50 Ciprofloxacin; bb 19:50 Flagyl; bb 19:50 Latex, Natural Rubber; bb - Home Meds: 05/21 00:19 sertraline 100 mg Oral tab [Active]; prednisone 10 mg Oral tab [Active]; ondansetron sm5 HCl 4 mg Oral tab [Active]; metoprolol tartrate 50 mg Oral tab [Active]; lisinopril 5 mg Oral tab [Active]; levothyroxine 25 mcg cap [Active]; hyoscyamine sulfate 0.125 mg Oral tab [Active]; cetirizine 10 mg Oral cap [Active]; bupropion HCl 75 mg Oral tab [Active]; atorvastatin 10 mg Oral tab [Active]; - PMHx: 00:19 Colitis; Crohn's Disease; Depression; Hypertension; Hypothyroidism; Insulin Resistance; sm5 - Immunization history:: Client reports having NOT received the Covid vaccine. - Social history:: Smoking status: Patient denies any tobacco usage or history of. ROS: 05/20 19:59 Constitutional: Negative for fever, chills, and weight loss, Cardiovascular: Negative jm for chest pain, palpitations, and edema, Respiratory: Negative for shortness of breath, cough, wheezing, and pleuritic chest pain. Abdomen/GI: Positive for abdominal pain, nausea and vomiting. All other systems are negative. Exam: 19:59 Constitutional: This is a well developed, well nourished patient who is awake, alert, jmm and in no acute distress. Head/Face: atraumatic. Eyes: EOMI, no conjunctival erythema appreciated ENT: Moist Mucus Membranes Neck: Trachea midline, Supple Chest/axilla: Normal chest wall appearance and motion. Cardiovascular: Regular rate and rhythm. No edema appreciated Respiratory: Normal respirations, no respiratory distress appreciated 19:59 Back: Normal ROM Skin: General appearance color normal MS/ Extremity: Moves all extremities, no obvious deformities appreciated, no edema noted to the lower extremities Neuro: Awake and alert Psych: Behavior is normal, Mood is normal, Patient is cooperative and pleasant 19:59 Abdomen/GI: Inspection: obese Bowel sounds: normal, Palpation: soft, moderate abdominal tenderness, in all quadrants. Vital Signs: 19:48 BP 170 / 78; Pulse 68; Resp 18 S; Temp 98.5(O); Pulse Ox 100% on R/A; Weight 109.77 kg bb (R); Height 5 ft. 1 in. (154.94 cm) (R); Pain 10/10; 22:16 BP 140 / 66; Pulse 68; Resp 17; Pulse Ox 95% on R/A; sm5 23:16 BP 135 / 78; Pulse 64; Resp 18; Pulse Ox 91% on R/A; sm5 05/21 00:00 BP 121 / 65; Pulse 64; Resp 17; Pulse Ox 95% on R/A; sm5 05/20 19:48 Body Mass Index 45.73 (109.77 kg, 154.94 cm) MDM: 05/20 19:59 Patient medically screened. [facility] 21:56 Data reviewed: vital signs, nurses notes. Counseling: I had a detailed discussion with [facility] the patient and/or guardian regarding: the historical points, exam findings, and any diagnostic results supporting the discharge/admit diagnosis, lab results, radiology results, the need for further work-up and treatment in the hospital. ED course: I discussed the patient with Dr. Soriano whom will consult on the admission. patient has a preference to stay in the hospital and not be transferred. I discussed the patient with Mrs Sena whom accepted the patient to Dr. ellis's service. . 04/04 20:06 Order name: CBC with Diff; Complete Time: 20:34 [facility] 05/20 20:06 Order name: CMP; Complete Time: 20:48 [facility] 05/20 20:06 Order name: Lipase; Complete Time: 20:48 [facility] 05/20 20:25 Order name: Lactate; Complete Time: 21:41 [facility] 05/20 22:57 Order name: COVID-19/FLU A+B (Document "Date of Onset" if Symptomatic) [facility] 05/21 02:19 Order name: Urinalysis [facility] 05/20 20:18 Order name: CT Abd/Pelvis - IV Contrast Only; Complete Time: 21:48 [facility] 05/21 03:40 Order name: Urine Microscopic Only [facility] 05/21 03:58 Order name: CBC with Automated Diff [facility] 05/21 04:16 Order name: Comprehensive Metabolic Panel [facility] 05/20 20:06 Order name: IV Saline Lock; Complete Time: 20:23 [facility] 05/20 20:06 Order name: Labs collected and sent; Complete Time: 20:23 [facility] Administered Medications: 20:33 Drug: morphine 4 mg Route: IVP; Site: left antecubital; 5 05/21 00:21 Follow up: Response: Pain is unchanged, physician notified 5 05/20 20:33 Drug: Zofran (Ondansetron) 4 mg Route: IVP; Site: left antecubital; 5 05/21 00:22 Follow up: Response: Nausea is decreased 5 05/20 20:33 Drug: SOLU-Medrol (methylPrednisoLONE) 125 mg Route: IVP; Site: left antecubital; 5 05/21 00:22 Follow up: Response: No adverse reaction 5 05/20 20:33 Drug: NS 0.9% 1000 ml Route: IV; Rate: 1 bolus; Site: left antecubital; 5 21:40 Follow up: IV Status: Completed infusion; IV Intake: 1000ml 5 22:16 Drug: morphine 4 mg Route: IVP; Site: left antecubital; 5 05/21 00:21 Follow up: Response: Pain is decreased [facility] Disposition Summary: 05/20/21 21:58 Hospitalization Ordered Hospitalization Status: Inpatient Admission aje Provider: Kovacev, Ken jmm Condition: Stable jmm Problem: an acute exacerbation jmm Symptoms: have improved jmm Bed/Room Type: Standard jmm Location: Telemetry/MedSurg (Inpatient)(05/21/21 11:24) bd Room Assignment: 207(05/21/21 11:24) bd Diagnosis - Small Bowel Obstruction jmm - Crohn's Flare jmm Forms: - Medication Reconciliation Form jmm - SBAR form jmm Addendum: 05/23/2021 07:19 Co-signature as Attending Physician, Esa Swain MD I agree with the assessment and c [facility] plan of care. Signatures: Dispatcher [employer] EDMS Pat Vieira Corey, MD MD cha Mickail, Joel, PA PA jmm Ballard, Brenda, RN RN Elida Smart, RN RN Nargis Medeiros RN RN sm5 Corrections: (The following items were deleted from the chart) 05/20 22:28 21:58 Telemetry/MedSurg (Inpatient) jmm cg 22:28 21:58 jmm cg 05/21 11:24 05/20 22:28 [facility] ER HOLD cg bd 05/21 11:24 05/20 22:28 ERHOLD- cg bd
--- NOTE | 2021-05-20 21:59 | ER ---
Nurse's Notes [facility] Name: Kindra Novoa Age: 65 yrs Sex: Female : 1955 Arrival Date: 05/20/2021 Time: 19:16 Bed 20 Private MD: Diagnosis: Small Bowel Obstruction;Crohn's Flare Presentation: 05/20 19:48 Chief complaint: Patient states: she was discharged from [facility] yesterday and bb had a Remicade injection today on the way home from that she started having severe abdominal pain again. Coronavirus screen: At this time, the client does not indicate any symptoms associated with coronavirus-19. Ebola Screen: No symptoms or risks identified at this time. Initial Sepsis Screen: Does the patient meet any 2 criteria? No. Patient's initial sepsis screen is negative. Does the patient have a suspected source of infection? No. Patient's initial sepsis screen is negative. Risk Assessment: Do you want to hurt yourself or someone else? Patient reports no desire to harm self or others. Onset of symptoms was May 20, 2021. 19:48 Method Of Arrival: Wheelchair 19:48 Acuity: KAROL 2 bb Triage Assessment: 19:50 General: Appears uncomfortable, Behavior is anxious, crying. Pain: Complains of pain in bb abdomen Pain currently is 10 out of 10 on a pain scale. Neuro: Level of Consciousness is awake, alert, obeys commands, Oriented to person, place, time, situation. Cardiovascular: Capillary refill < 3 seconds. Respiratory: Respiratory effort is even, unlabored, Respiratory pattern is regular. GI: Abdomen is obese, Abdomen is tender to palpation X 4 quads. Derm: Skin is pink, warm \T\ dry. Musculoskeletal: Circulation, motion, and sensation intact. Historical: - Allergies: 19:50 Ciprofloxacin; bb 19:50 Flagyl; bb 19:50 Latex, Natural Rubber; bb - Home Meds: 05/21 00:19 sertraline 100 mg Oral tab [Active]; prednisone 10 mg Oral tab [Active]; ondansetron sm5 HCl 4 mg Oral tab [Active]; metoprolol tartrate 50 mg Oral tab [Active]; lisinopril 5 mg Oral tab [Active]; levothyroxine 25 mcg cap [Active]; hyoscyamine sulfate 0.125 mg Oral tab [Active]; cetirizine 10 mg Oral cap [Active]; bupropion HCl 75 mg Oral tab [Active]; atorvastatin 10 mg Oral tab [Active]; - PMHx: 00:19 Colitis; Crohn's Disease; Depression; Hypertension; Hypothyroidism; Insulin Resistance; sm5 - Immunization history:: Client reports having NOT received the Covid vaccine. - Social history:: Smoking status: Patient denies any tobacco usage or history of. Screenin:19 Abuse screen: Denies threats or abuse. Denies injuries from another. Nutritional 5 screening: No deficits noted. Tuberculosis screening: No symptoms or risk factors identified. Fall Risk IV access (20 points). Total Ferrell Fall Scale indicates No Risk (0-24 pts). Assessment: 05/20 22:17 General: Appears uncomfortable, Behavior is cooperative. Pain: Complains of pain in 5 abdomen. Neuro: Level of Consciousness is awake, alert, obeys commands, Oriented to person, place, time, situation. Cardiovascular: No deficits noted. Capillary refill < 3 seconds Patient's skin is warm and dry. Respiratory: No deficits noted. Airway is patent Trachea midline Respiratory effort is even, unlabored. GI: Abdomen is round obese, Bowel sounds present X 4 quads. Reports lower abdominal pain, upper abdominal pain. 23:20 Reassessment: No changes from previously documented assessment. Patient and/or family 5 updated on plan of care and expected duration. Pain level reassessed. 05/21 00:23 Reassessment: No changes from previously documented assessment. [facility] Vital Signs: 05/20 19:48 BP 170 / 78; Pulse 68; Resp 18 S; Temp 98.5(O); Pulse Ox 100% on R/A; Weight 109.77 kg bb (R); Height 5 ft. 1 in. (154.94 cm) (R); Pain 10/10; 22:16 BP 140 / 66; Pulse 68; Resp 17; Pulse Ox 95% on R/A; 5 23:16 BP 135 / 78; Pulse 64; Resp 18; Pulse Ox 91% on R/A; sm5 05/21 00:00 BP 121 / 65; Pulse 64; Resp 17; Pulse Ox 95% on R/A; sm5 05/20 19:48 Body Mass Index 45.73 (109.77 kg, 154.94 cm) bb ED Course: 05/20 19:16 Patient arrived in ED. ds1 19:50 Triage completed. bb 19:50 Arm band placed on Patient placed in waiting room, Patient notified of wait time. bb Family accompanied patient. 19:59 Julian Cadet PA is PHCP. [facility] 19:59 Esa Sawin MD is Attending Physician. [facility] 20:02 Nargis Maldonado RN is Primary Nurse. 5 20:23 CBC with Diff Sent. sm5 20:23 CMP Sent. sm5 20:23 Lipase Sent. 5 21:29 CT Abd/Pelvis - IV Contrast Only In Process Unspecified. EDMS 21:57 Ken Soriano MD is Hospitalizing Provider. [facility] 05/21 00:19 Patient has correct armband on for positive identification. Placed in gown. Bed in low sm5 position. Call light in reach. Side rails up X2. Pulse ox on. NIBP on. 00:20 No provider procedures requiring assistance completed. [facility] Administered Medications: 05/20 20:33 Drug: morphine 4 mg Route: IVP; Site: left antecubital; 5 05/21 00:21 Follow up: Response: Pain is unchanged, physician notified [facility] 05/20 20:33 Drug: Zofran (Ondansetron) 4 mg Route: IVP; Site: left antecubital; 5 05/21 00:22 Follow up: Response: Nausea is decreased [facility] 05/20 20:33 Drug: SOLU-Medrol (methylPrednisoLONE) 125 mg Route: IVP; Site: left antecubital; 5 05/21 00:22 Follow up: Response: No adverse reaction 5 05/20 20:33 Drug: NS 0.9% 1000 ml Route: IV; Rate: 1 bolus; Site: left antecubital; 5 21:40 Follow up: IV Status: Completed infusion; IV Intake: 1000ml [facility] 22:16 Drug: morphine 4 mg Route: IVP; Site: left antecubital; 5 05/21 00:21 Follow up: Response: Pain is decreased [facility] Intake: 05/20 21:40 IV: 1000ml; Total: 1000ml. [facility] Outcome: 21:58 Decision to Hospitalize by Provider. tessa 05/21 12:27 Patient left the ED. [facility] Signatures: Dispatcher [employer] EDNC Julian Cadet PA PA jmm Sanford, Demi ds1 Estephania Thacker RN RN Nargis Arcos RN RN sm5 Tana Rangel RN RN ha
[2021-05-21] MEDS: D5.45NS W/KCL 20MEQ 1,000 ML IV SCH ×3 (00:31→20:31)
[2021-05-21] MEDS ORDERED: ZOLPIDEM TARTRATE 5 MG TABLET PO PRN (00:31)
[2021-05-21] MEDS ORDERED: ONDANSETRON 4 MG/2 ML VIAL IV PRN (00:31)
[2021-05-21 00:37] VITALS: BMI 45.7
[2021-05-21 01:08] LABS: SARS-COV-2 RT PCR NEGATIVE (NEGATIVE)
--- NOTE | 2021-05-21 01:14 | P.HP ---
Certification for Inpatient Patient admitted to: Inpatient With expected LOS: >2 Midnights Patient will require the following post-hospital care: None Practitioner: I am a practitioner with admitting privileges, knowledge of patient current condition, hospital course, and medical plan of care. Services: Services provided to patient in accordance with Admission requirements found in Title 42 Section 412.3 of the Code of Federal Regulations Patient History Date of Service: 05/21/21 Primary Care Provider: Ladonna Reason for admission: SBO, Crohns Flare History of Present Illness: Patient is a 65-year-old female who presented to the ED with complaints of severe abdominal pain. Patient was recently admitted here and transferred to the [facility] for treatment of small bowel obstruction. She was treated medically and discharged 2 days ago. She states today her pain became a 10/10 but she has been having bowel movements and passing gas. WBC within normal limits. CT abdomen pelvis showed small bowel obstruction with questionable soft tissue within the distal jejunum at the site obstruction. I spoke with patient after she had received morphine. She states her pain had greatly improved. She denies nausea or vomiting. Dr. Soriano has been notified and has agreed to consult. Will admit patient for medical management. Allergies ciprofloxacin Allergy (Verified 07/12/20 22:34) Itching/Hives/Rash latex [Latex] Allergy (Verified 05/12/11 07:41) Itching/Hives/Rash Latex, Natural Rubber Allergy (Verified 06/07/20 05:52) Unknown metronidazole Allergy (Verified 07/12/20 22:34) Itching/Hives/Rash buspirone Adverse Reaction (Verified 07/12/20 22:35) Nausea/Vomiting Home medications list reviewed: Yes Home Medications: Levothyroxine Sodium 25 mcg PO DAILY 07/27/20 Sertraline [Zoloft*] 200 mg PO BEDTIME 07/27/20 buPROPion HCL [Bupropion HCl] 150 mg PO DAILY 12/10/20 Ondansetron [Zofran (Odt)*] 4 mg PO Q6H PRN #10 tab 03/08/21 Acetaminophen 160 mg PO Q4HR PRN 04/05/21 Atorvastatin Calcium 10 mg PO DAILY 04/05/21 Cetirizine HCl [Zyrtec] 10 mg PO DAILY 04/05/21 Hyoscyamine Sulfate [Levsin TAB*] 0.125 mg PO Q4H PRN 04/05/21 Lisinopril [Zestril] 5 mg PO DAILY 04/05/21 Metoprolol Succinate [Toprol Xl*] 50 mg PO BID 04/05/21 predniSONE [Prednisone*] 10 mg PO SEECOM 04/17/21 Amox/Clavulanate [Augmentin 875-125 Tab] 875 mg PO BID 7 Days #14 tab 05/06/21 - Past Medical/Surgical History Has patient received pneumonia vaccine in the past: No Diabetic: No -: HTN -: Prediabetes -: Hypothyroidism -: Depression -: Recurrent SBO -: GERD -: Crohn's disease -: Psychosocial/ Personal History: Patient is . - Family History Father -: Cancer Notes: lung Cx Mother -: Heart disease - Social History Smoking Status: Never smoker Alcohol use: No CD- Drugs: No Caffeine use: Yes Place of Residence: Home Review of Systems Gastrointestinal: Abdominal Pain, As per HPI Physical Examination - Physical Exam General: Alert, In no apparent distress, Oriented x3, Obese HEENT: Atraumatic, PERRLA, Mucous membr. moist/pink, EOMI, Sclerae nonicteric Neck: Supple, 2+ carotid pulse no bruit, No LAD, Without JVD or thyroid abnormality Respiratory: Clear to auscultation bilaterally, Normal air movement Cardiovascular: Regular rate/rhythm, Normal S1 S2 Gastrointestinal: Normal bowel sounds, Hypoactive, No masses, No rebound, No guarding, Tenderness Musculoskeletal: No tenderness Integumentary: No rashes Neurological: Normal speech, Normal strength at 5/5 x4 extr, Normal tone, Normal affect - Studies Laboratory Data (last 24 hrs) 05/20/21 20:19: Sodium 144, Potassium 3.4 L, BUN 7, Creatinine 0.80, Glucose 104, Total Bilirubin 0.5, AST 14 L, ALT 23, Alkaline Phosphatase 83, Lipase 71 L 05/20/21 20:19: WBC 7.5, Hgb 12.4, Hct 37.0, Plt Count 295 Assessment and Plan - Problems (Diagnosis) (1) Small bowel obstruction Current Visit: Yes Status: Chronic (2) Crohn's disease Current Visit: Yes Status: Chronic Qualifiers: Gastrointestinal tract location: small and large intestine Digestive disease complication type: with intestinal obstruction Qualified Code(s): K50.812 - Crohn's disease of both small and large intestine with intestinal obstruction (3) Hypertension Current Visit: Yes Status: Chronic Qualifiers: Hypertension type: primary hypertension (4) Hypothyroidism Current Visit: Yes Status: Chronic Qualifiers: Hypothyroidism type: acquired Qualified Code(s): E03.9 - Hypothyroidism, unspecified (5) Prediabetes Current Visit: No Status: Chronic - Plan -We will admit patient for pain control and medical management with general surgery consulting. -N.p.o. and IV fluids -Zofran as needed nausea -We will hold off on NG tube unless intractable vomiting occurs -WBC is not elevated. Will hold off on antibiotics -Patient reports she has been having bowel movements and passing gas today. We will continue to monitor. Vital signs stable -Continue home medications as appropriate DVT PPx: Lovenox Code: Full Discharge Plan: Home Plan to discharge in: Greater than 2 days - Advance Directives Does patient have a Living Will: No Does patient have a Durable POA for Healthcare: No - Code Status/Comfort Care Code Status Assessed: Yes (Full) Critical Care: No Time Spent Managing Pts Care (In Minutes): 70
[2021-05-21] MEDS ORDERED: D5.45NS W/KCL 20MEQ 1,000 ML IV ONE (02:03)
[2021-05-21] MEDS: MORPHINE 4 MG/ML SYR IV PRN ×5 (02:14→21:53)
[2021-05-21] MEDS ORDERED: MORPHINE 4 MG/ML SYR ONE ×3 (02:15→11:24)
[2021-05-21 02:19] LABS: Urine Appearance Clear (Clear); Urine Bilirubin Negative (Negative); Urine Blood Trace-intact (Negative); Urine Color Yellow (Yellow); Urine Glucose Negative (Negative); Urine Protein Negative (Negative); Urine Specific Gravity 1.015 (1.005-1.030); Urine Urobilinogen 0.2 mg/dL (0.2-1.0); Urine pH 6.5 (5.0-7.0)
[2021-05-21 02:22] LABS: Urine Microscopic Reflex ORDER UMIC
[2021-05-21 03:40] LABS: Urine Bacteria >50 /HPF (<20); Urine RBC <5 /HPF (NONE SEEN); Urine Urothelial Cells <5 /HPF (NONE SEEN)
[2021-05-21 03:57] LABS: Absolute Lymphocytes (CBC) 0.9 K/uL (0.7-4.9); Hematocrit 33.9 % (36.0-45.0); Lymphocytes % 14.1 % (15.3-44.8); MPV 7.3 fL (7.6-11.3)
[2021-05-21 04:16] LABS: Albumin 2.9 g/dL (3.4-5.0); Bilirubin Total 0.4 mg/dL (0.2-1.0); Potassium 3.9 mmol/L (3.5-5.1); Protein, Total 6.2 g/dL (6.4-8.2)
[2021-05-21] MEDS: ENOXAPARIN 40 MG/0.4 ML SQ SCH (09:00)
[2021-05-21] MEDS ORDERED: ENOXAPARIN 40 MG/0.4 ML SQ ONE (11:24)
[2021-05-21 16:37] VITALS: O2SAT 95
--- NOTE | 2021-05-21 18:09 | CON ---
Date of Consultation: 05/21/2021 Brief History Of Present Illness: The patient is a 65-year-old female, known to me from pr evious multiple admissions for small bowel obstruction due to Crohn exacerbations. She has been curr ently changing her Crohn treatment due to a new treatment protocol. She is activated with a gastroen terologist in [facility]. She was previously on Humira, but is now currently on Remicade treatment . She was treated yesterday with the last treatment prior to her arrival. She noted that she had si milar abdominal pain, nausea, and some cramping as she has had multiple times before in the past rela jennifer to her multiple small bowel obstructions. She states that her pain is significantly improved aft er being given steroids in the ER and is currently having bowel movements prior to my arrival and her pain is almost completely resolved at this point. There is no nausea, no vomiting. Past Medical History: Significant for Crohn disease, hypertension, diabetes, depression, small bowel obstruction, GERD. Past Surgical History: Includes C-sections. Allergies: TO CIPRO, LATEX, FLAGYL, BUSPAR. Home Medications: Include levothyroxine, Zoloft, bupropion, Zofran, acetaminophen, atorvastatin, Zyr juancarlos, Hyoscyamine, Zestril, metoprolol, prednisone, and Augmentin. Review of Systems: Ten-point review of systems other than HPI, then denies currently. Social History: She denies smoking, alcohol, recreational drug use. Physical Examination: General: At the time of my examination; she is awake, alert, and oriented. Psychiatric: She is appropriate, conversive. HEENT: She is normocephalic. Sclerae anicteric. Mucous membranes moist. Oropharynx clear. Neck: Supple without JVD. Chest: Normal expansion and excursion. Cardiovascular: Regular rate and rhythm. Pulmonary: Clear to auscultation bilaterally. Abdomen: Soft, nontender, nondistended. No rebound. No guarding. No focal peritonitis. Extremities: No clubbing, cyanosis, or edema. Skin: Warm and dry. Laboratory Data: Revealed a white blood cell count of 7.5, hemoglobin 12.4, hematocrit 37.0, platele t count was 295. Her sodium 144, potassium 3.4, chloride 109, carbon dioxide 29, BUN 7, creatinine 0 .8, glucose was 104, lactic acid 0.6, total bilirubin 0.5, direct component was not measured. AST 14 , ALT 23, alkaline phosphatase is 83, lipase is 71. She had imaging, which included a CT of the abdo men and pelvis on 05/20, which was officially read as small bowel obstruction, questionable soft tiss ue within the distal jejunum at the site of obstruction, mucosal thickening involving the cecum and t erminal ileum with stricture may be a sequela of Crohn disease. Assessment And Plan: This is a 65-year-old female with a recurrent small bowel obstruction likely du e to Crohn exacerbation. 1.IV fluid hydration. 2.N.p.o. status. 3.Serial abdominal exams. 4.Pulse steroid treatment. 5.Explained risks, benefits, and alternatives of nonoperative versus operative management. We will attempt nonoperative measures again, which would have been successful on multiple times for the past. The patient agrees to proceed as indicated. Thank you for this interesting consult. RODGER/ALIREZA Voice ID: [id number] Report ID: [id number]
--- NOTE | 2021-05-21 20:05 | P.PN ---
Date of Service: 05/21/21 Patient seen and examined. She states she feels better. She reports passing gas. She reports bowel movement before her abdominal pain and after onset of her abdominal pain. Diagnosis: Small bowel obstruction. Crohn's disease flare. Plan: Continue medical management Supportive measures with IV hydration, pain management as needed. N.p.o. Serial abdominal examination Serial KUB. Monitor and optimize electrolytes.
[2021-05-22] MEDS: D5.45NS W/KCL 20MEQ 1,000 ML IV SCH (00:53)
[2021-05-22] MEDS: PIPER TAZO 3.375 GM in NA CHLORIDE 0.9% 100 ML IV SCH ×2 (00:54→09:01)
[2021-05-22] MEDS: METHYLPREDNISOLONE 40 MG INJ IV SCH ×2 (00:54→09:02)
[2021-05-22] MEDS: MORPHINE 4 MG/ML SYR IV PRN ×3 (03:34→13:56)
[2021-05-22 06:32] LABS: Albumin 2.9 g/dL (3.4-5.0); Bilirubin Total 0.3 mg/dL (0.2-1.0); Potassium 4.2 mmol/L (3.5-5.1); Protein, Total 5.9 g/dL (6.4-8.2)
[2021-05-22 06:38] LABS: Absolute Lymphocytes (CBC) 0.6 K/uL (0.7-4.9); Hematocrit 42.1 % (36.0-45.0); Lymphocytes % 11.7 % (15.3-44.8)
[2021-05-22] MEDS: ENOXAPARIN 40 MG/0.4 ML SQ SCH (09:02)
[2021-05-22 12:14] VITALS: BP 135/61; TEMP 97.5
--- NOTE | 2021-05-22 13:05 | P.DS ---
Admission Date: 05/20/21 Discharge Date: 05/22/21 Primary Care Provider: Ladonna Disposition: ROUTINE DISCHARGE Discharge Condition: FAIR Reason for Admission: SBO, Crohns Flare Consultations: General Surgery-Dr. Soriano. - Problems (1) Crohn's disease Status: Chronic Qualifiers: Gastrointestinal tract location: small and large intestine Digestive disease complication type: with intestinal obstruction Qualified Code(s): K50.812 - Crohn's disease of both small and large intestine with intestinal obstruction (2) Small bowel obstruction Status: Chronic Brief History of Present Illness: Patient is a 65-year-old female who presented to the ED with complaints of severe abdominal pain. Patient was recently admitted here and transferred to the [facility] for treatment of small bowel obstruction. She was treated medically and discharged 2 days ago. She states today her pain became a 10/10 but she has been having bowel movements and passing gas. WBC within normal limits. CT abdomen pelvis showed small bowel obstruction with questionable soft tissue within the distal jejunum at the site obstruction. She denied any nausea or vomiting. Dr. Soriano was notified of the bowel ob struction and patient admitted for further management. Hospital Course: Patient was treated with IV steroid, IV antibiotics and supportive measures. She was seen and evaluated by general surgery Dr. Soriano who recommended medical management. Patient continued to have bowel movement and flatus. She tolerated diet advancement from clear liquid to soft diet. Patient deemed stable for discharge per general surgery. She is prescribed a tapering dose of prednisone. She will follow with GI as an outpatient to continue Remicade. Vital Signs/Physical Exam: Temp Pulse Resp BP Pulse Ox 97.5 F 65 16 135/61 96 05/22/21 12:00 05/22/21 12:00 05/22/21 12:00 05/22/21 12:00 05/22/21 12:00 General: In no apparent distress, Oriented x3 HEENT: Mucous membr. moist/pink Neck: JVD not distended Respiratory: Clear to auscultation bilaterally, Normal air movement Cardiovascular: No edema, Regular rate/rhythm, Normal S1 S2 Gastrointestinal: Normal bowel sounds, Soft and benign, Non-distended, No tenderness Musculoskeletal: No swelling Integumentary: No rashes Neurological: Normal strength at 5/5 x4 extr Laboratory Data at Discharge: WBC 5.2 K/uL (4.3-10.9) D 05/22/21 06:00 Hgb 13.8 g/dL (12.0-15.0) 05/22/21 06:00 Hct 42.1 % (36.0-45.0) D 05/22/21 06:00 Plt Count 186 K/uL (152-406) D 05/22/21 06:00 Sodium 144 mmol/L (136-145) 05/22/21 06:00 Potassium 4.2 mmol/L (3.5-5.1) 05/22/21 06:00 BUN 7 mg/dL (7-18) 05/22/21 06:00 Creatinine 0.90 mg/dL (0.55-1.3) 05/22/21 06:00 Glucose 140 mg/dL (74-106) H 05/22/21 06:00 Total Bilirubin 0.3 mg/dL (0.2-1.0) 05/22/21 06:00 AST 13 U/L (15-37) L 05/22/21 06:00 ALT 20 U/L (12-78) 05/22/21 06:00 Alkaline Phosphatase 71 U/L (45-117) 05/22/21 06:00 Lipase 71 U/L (73-393) L 05/20/21 20:19 Home Medications: Levothyroxine Sodium 25 mcg PO DAILY 07/27/20 Sertraline [Zoloft*] 150 mg PO BEDTIME 07/27/20 buPROPion HCL [Bupropion HCl] 150 mg PO BID 12/10/20 Ondansetron [Zofran (Odt)*] 4 mg PO Q6H PRN #10 tab 03/08/21 Atorvastatin Calcium 10 mg PO DAILY 04/05/21 Metoprolol Succinate [Toprol Xl*] 50 mg PO BID 04/05/21 Pantoprazole [Protonix Tab*] 1 tab PO DAILY 05/21/21 predniSONE [Deltasone*] 10 mg PO DAILY #30 tab 05/22/21 New Medications: predniSONE [Deltasone*] 10 mg PO DAILY #30 tab Followup: NONE,NONE [Primary Care Provider] - Time spent managing pt's care (in minutes): 38
== END 2021-05-22 14:21 | disposition home or self-care (01) | DRG 386 ==
LOC: ER 19:14 → ERHOLD 22:56 → 2ND 05-21 12:15
PROVIDERS: ADMIT Internal Medicine; ATTEND Internal Medicine
DX: K50.812 Crohn's disease of both small and large intestine with intestinal obstruction (principal); Z68.42 Body mass index [BMI] 45.0-49.9, adult; I10 Essential (primary) hypertension; E03.9 Hypothyroidism, unspecified; F32.A Depression, unspecified; K21.9 Gastro-esophageal reflux disease without esophagitis; E66.9 Obesity, unspecified; R73.03 Prediabetes; Z91.040 Latex allergy status; Z20.822 Contact with and (suspected) exposure to COVID-19
CPT/HCPCS: 0240U; 36415; 74177; 80053; 81003; 81015; 83605; 83690; 85025; 87077; 87086; 87088; 87186; 96361; 96374; 96375; 99284; J1650; J2405; J2543; J2920; J2930; J7030; Q9967

== ENCOUNTER 2021-06-04 15:18 | Inpatient (IN) | payer BC ==
--- OUTSIDE RECORDS SUMMARY | 2021-06-04 15:22 | XMS REPORT | Continuity of Care Document ---
:1955 Author Organization [facility] t Address [address] [place] [address] Dr. Sandoval [address] [place] [address] Care Team Providers Name Role Phone Kael [...] Expiration Date S ource PPO/EPO - BCBS [id number] BCBS PPO POS EPO [id number] 2010 00:00:00 CHOICE Problems Condition Condition Condition Status Onset Resolution Last Treating Co mments Source Name Details Category Date Date Treatment Clinician Date Crohn's Crohn's Disease Active 2020-02 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:00: Hospita involving involving 00 l tribe tribe 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 pectoris SOB SOB Disease Active [facility] (shortness (shortness 2-02 st of breath) of breath) 00:00: Ho spita 00 l Aortic Aortic Disease Active [facility] valve valve 2 st disorder disorder 00:00: Hospit a 00 l Allergies, Adverse Reactions, Alerts Allergy Allergy Status Severity Reaction(s) Onset Inactive Treating Comm ents Source Name Type Date Date Clinician BUSPIRON Allergy Active [facility] E 4-01 00:00: 00 CIPROFLO Allergy Active [facility] XACIN 4-01 00:00: 00 FUROSEMI Allergy Active [facility] DE 4-01 00:00: 00 METRONID Allergy Active [facility] AZOLE 4-01 HCL 00:00: 00 LATEX Allergy Active Low Itching 2020-[address] [facility] [address] [facility] Latex Propensi Active Rash 2020-02 [facility] ty to 2-10 College adverse 00:00: of reaction 00 Medicin s to e substanc e NO KNOWN Allergy Active [facility] ALLERGIE S Latex, Propensi Active Itching [facility] Natural ty to st Rubber adverse Hospita reaction l s to drug Family History Family Member Diagnosis Comments Start Date Stop Date Source Natural father [facility] Natural mother [facility] disease [facility] Social History Social Habit Start Date Stop Date Quantity Comments Source Exposure to Not sure [facility] SARS-[facility]2 Medicine (event) History [facility] Worship Alcohol Std Hospital Drinks History [facility] Worship Alcohol Binge Hospital Tobacco use and 2021-01-25 2021-01-25 Smokeless tobacco [facility] of exposure 00:00:00 00:00:00 non-user Medicine History SDAZ 2018-03-19 2018-03-19 1 Worship Alcohol Frequency 00:00:00 00:00:00 Hospita l Alcohol intake 2018-03-19 2018-03-19 Current Worship 00:00:00 00:00:00 non-drinker of Hospital alcohol (finding) Sex Assigned At [address] [facility] Co llege of 00:00:00 00:00:00 Medicine Smoking Status Start Date Stop Date Source Never smoked tobacco [facility] Eric ege of Medicine Former smoker 2018-03-19 00:00:00 2018-03-19 00:00:00 [facility] Medications Ordered Filled Start Stop Current Ordering Indication Dosage Frequency Signature Comments Components Source Medication Medication Date Date Medication? Clinician (SIG) Name Name MINERAL OIL 2021- No Take by Kamala albrecht OR 03-29 mouth. College 12:06: 00:00 of 07 :00 Medicin e MINERAL OIL 2021- No Take by Kamala albrecht OR 03-29 mouth. College 12:06: 00:00 of [...] tablet 30 :00 daily. Medicin e ferrous 0 2021- No 325mg Take 325 Bayl or sulfate 325 03-29 mg by Colleg e (65 Fe) MG 12:04: 00:00 mouth of tablet 30 :00 daily. Medicin e bisacodyl 2021- No 5mg Take 5 mg Ba ylor (DULCOLAX) 03-29 by mouth Eric ege 5 MG EC 12:03: 00:00 daily as of tablet 26 :00 needed for Medicin Constipati e on. Lactobacill 0 2021- No Take by Kamala bernardlor us 2-11 02-11 mouth. College (ACIDOPHILU 12:03: 00:00 of S OR) 05 :00 Medicin e Cholecalcif Yes Take by Sixto adams alex 2-11 mouth. [place] (VITAMIN D) 11:46: of 125 MCG 58 Medicin (5000 UT) e CAPS Cholecalcif 0 Yes Take by Sixto lior alex 2-11 mouth. [place] (VITAMIN D) 11:46: of 125 MCG 58 Medicin (5000 UT) e CAPS atorvastati Yes 10mg Take [address] [facility] n (LIPITOR) 2-11 by mouth Eric ege 10 MG 11:46: daily. of tablet 58 Medicin e Cetirizine Yes Take 1 Baylo r HCl (ZYRTEC 2-11 Chew Tab Eric ege ALLERGY) 10 11:46: by mouth of MG CAPS 58 daily. Medicin e hyoscyamine Yes .125mg Take 0.125 Ran (LEVSIN) 2-11 mg by [place] 0.125 MG 11:46: mouth of tablet 58 [...] renea SUSP hours prn e predniSONE Yes [id number] 20mg Take 1 B [facility] (DELTASONE) 2-11 Tablet by Col lege 20 MG 00:00: mouth of tablet 00 daily. Medicin Taper by 5 e mg every week. MINERAL OIL 2020-02 Yes Take by Sixto adams OR 2-10 mouth. College 09:20: of 34 Medicin e Cholecalcif 2020-02 Yes Take by Sixto lior alex 2-10 mouth. [place] (VITAMIN D) 09:20: of 125 MCG 34 Medicin (5000 UT) e CAPS ferrous 2020-02 Yes 325mg Take 325 Baylo r sulfate 2-10 mg by [place] (FEROSUL) 09:19: mouth of 325 (65 Fe) 41 daily. Medici n MG tablet e Mesalamine 2020-02 Yes Take by [facility] (PENTASA) 2-10 mouth. [place] 500 MG CPCR 09:19: of 41 Medicin e predniSONE 2020-[address] [facility] (DELTASONE) 03-13 College 20 MG 00:00: of [...] 40 mg Ran e 02-27 by mouth [place] (PROTONIX) 00:00: daily. of 40 MG 00 Medicin tablet e pantoprazol 2020-02- No 40mg Take 40 mg Ran e 02-27 by [facility] (PROTONIX) 00:00: 00:00 daily. of 40 MG 00 :00 Medicin tablet e pantoprazol 2020-02- No 40mg Take [address] [facility] e 1-12 02-11 by mouth [place] (PROTONIX) 00:00: 00:00 daily. of 40 MG 00 :00 Medicin tablet e lisinopril 2020-02 Yes 1 po daily [facility] (PRINIVIL, 02-23 in the [facility]) 5 00:00: morning of MG tablet 00 Medicin e lisinopril 2020-02 Yes 1 po daily [facility] (PRINIVIL, 02-23 in the [facility]) 5 00:00: morning of MG tablet 00 Medicin e lisinopril 2020-02 Yes 1 po daily B [facility] (PRINIVIL, 02-23 in the [facility]) 5 00:00: morning of MG tablet 00 Medicin e sertraline 2020-[address] [facility] (ZOLOFT) 02-17 [place] 100 MG 00:00: of tablet 00 Medicin e buPROPion 2020-02 Yes TAKE 2 Ran (WELLBUTRIN 1-02 TABLETS BY Co llege ) 75 MG 00:00: MOUTH of tablet 00 EVERY Medicin MORNING e AND 1 TABLET BY MOUTH EVERY EVENING sertraline 2020-[address] [facility] (ZOLOFT) 1- [place] 100 MG 00:00: of tablet 00 Medicin e buPROPion 2020-[address] [facility] (WELLBUTRIN 1-02 TABLETS BY Co llege ) 75 MG 00:00: MOUTH of tablet 00 EVERY Medicin MORNING e AND 1 TABLET BY MOUTH EVERY EVENING sertraline 2020-[address] [facility] (ZOLOFT) 02-17 [place] 100 MG 00:00: of tablet 00 Medicin e buPROPion 2020-02 Yes TAKE 2 Ran (WELLBUTRIN 1-02 TABLETS BY Co llege ) 75 MG 00:00: MOUTH of tablet 00 EVERY Medicin MORNING e AND 1 TABLET BY MOUTH EVERY EVENING Adalimumab 2020-[address] [facility] (HUMIRA 0-25 [place] PEN) 40 00:00: of MG/0.8ML 00 Medicin injection e Adalimumab 2020-02- No [facility] (HUMIRA 0-25 01-14 [place] PEN) 40 00:00: 00:00 of MG/0.8ML 00 :00 Medicin injection e levothyroxi Yes levothyrox [facility] 8- [facility] 25 mcg [place] (SYNTHROID) 00:00: tablet of 25 MCG 00 TAKE 1 Medicin tablet TABLET BY e MOUTH DAILY IN THE MORNING WITH JUST A SIP OF WATER. WAIT 30 MINUTES BEFORE EATING OR DRINKING ANYTHING levothyroxi Yes levothyrox [facility] 09-17 ine 25 mcg [place] (SYNTHROID) 00:00: tablet of 25 MCG 00 TAKE 1 Medicin tablet TABLET BY e MOUTH DAILY IN THE MORNING WITH JUST A SIP OF WATER. WAIT 30 MINUTES BEFORE EATING OR DRINKING ANYTHING levothyroxi Yes levothyrox [facility] 09-17 ine 25 mcg [place] (SYNTHROID) 00:00: tablet of 25 MCG 00 TAKE 1 Medicin tablet TABLET BY e MOUTH DAILY IN THE MORNING WITH JUST A SIP OF WATER. WAIT 30 MINUTES BEFORE EATING OR DRINKING ANYTHING lisinopriL- 0 Yes [id number] 1{tbl} QD TAKE 1 [facility] hydrochloro 7-[address] thiazide 00:00: MOUTH Hospita (PRINZIDE) 00 DAILY l 10-12.5 mg per tablet metoprolol 0 Yes [id number] TAKE 1 Me thodi tartrate 7-29 TABLET(50 st (LOPRESSOR) 00:00: MG) BY Hosp [facility] 50 mg 00 MOUTH l tablet TWICE DAILY metoprolol 2020-0 2020- No [id number] TAKE 1 M ethodi tartrate 4-26 07-29 TABLET(50 st (LOPRESSOR) 00:00: 00:00 MG) BY Hos alba 50 mg 00 :00 MOUTH l tablet TWICE DAILY lisinopriL- 2020-0 2020- No [id number] 1{tbl} QD TAKE 1 [facility] hydrochloro 4-26 07-[address] thiazide 00:00: 00:00 MOUTH Hospita (PRINZIDE) 00 :00 DAILY l 10-12.5 mg per tablet lisinopriL- 2020-0 2020- No [id number] 1{tbl} QD Take 1 [facility] hydrochloro 1-25 04-[address] thiazide 00:00: 00:00 mouth Hospita (PRINZIDE) 00 :00 daily. l 10-12.5 mg per tablet metoprolol 2020-0 2020- No [id number] 50mg Q.5D Take 1 M ethodi tartrate 1-25 04-26 tablet (50 st (LOPRESSOR) 00:00: 00:00 mg total) Hospita 50 mg 00 :00 by mouth 2 l tablet (two) times a day. lisinopril- 2020- No [id number] 1{tbl} QD TAKE 1 [facility] hydrochloro 03-[address] thiazide 00:00: 00:00 MOUTH Hospita (PRINZIDE) 00 :00 DAILY l 10-12.5 mg per tablet metoprolol 2020- No [id number] TAKE 1 M ethodi tartrate 03-17 TABLET(50 [...] 2021- No sertraline Ran (ZOLOFT) 50 02-17 02- 50 mg Colleg e MG tablet 00:00: [...] by Met brianne in-folic 8-[address] [id number] 16:39: Hospita 200 mcg 47 l tablet coenzyme Yes [facility] Q10 (CO 09-23 st Q-10) 100 00:00: Hospita mg capsule 00 l cholecalcif Yes Method i alex, 09-17 st vitamin D3, 00:00: Hospit a (VITAMIN 00 l D3) 5,000 unit tablet docusate 0 Yes [facility] sodium 8 st (COLACE) 00:00: Hospita 100 MG 00 l capsule ferrous 2018-0 Yes [facility] sulfate [address] (65 FE) MG 00:00: Hospita tablet 00 l sertraline 0 Yes [facility] (ZOLOFT) 715 st 100 MG 00:00: Hospita tablet 00 l Vital Signs Vital Name Observation Time Observation Value Comments Source WEIGHT 2021-05-17 12:46:00 52.98 kg WEIGHT 2021-05-17 06:25:00 107.911 kg WEIGHT 2021-05-17 12:46:00 52.98 kg WEIGHT 2021-05-17 06:25:00 107.911 kg Body weight 2021-03-29 17:28:00 110.678 kg [facility] BMI 2021-03-29 17:28:00 46.10 kg/m2 [facility] Systolic blood 2021-03-29 17:28:00 143 mm[Hg] [facility] pressure Medicine Diastolic blood 2021-03-29 17:28:00 82 mm[Hg] [facility] pressure Medicine Heart rate 2021-03-29 17:28:00 60 /min [facility] Body temperature 2021-03-29 17:28:00 36.22 Nadiya [facility] Respiratory rate 2021-03-29 17:28:00 16 /min [facility] Body height 2021-03-29 17:28:00 154.9 cm [facility] Body height 2021-03-01 15:04:00 [facility].9 [facility] Body weight 2021-03-01 15:04:00 107.593 kg [facility] BMI 2021-03-01 15:04:00 44.82 kg/m2 [facility] HEIGHT 2021-02-03 05:20:00 154.9 cm WEIGHT 2021-02-03 05:20:00 106.505 kg HEIGHT 2021-02-03 05:20:00 154.9 cm WEIGHT 2021-02-03 05:20:00 106.505 kg Systolic blood 2021-01-25 15:06:00 122 mm[Hg] [facility] pressure Medicine Diastolic blood 2021-01-25 15:06:00 80 mm[Hg] [facility] Medicine Heart rate 2021-01-25 15:06:00 81 /min [facility] Body temperature 2021-01-25 15:06:00 36.28 Nadiya [facility] Respiratory rate 2021-01-25 15:06:00 14 /min [facility] Body height 2021-01-25 15:06:00 154.9 cm [facility] Body weight 2021-01-25 15:06:00 106.142 kg [facility] BMI 2021-01-25 15:06:00 44.21 kg/m2 [facility] Procedures This patient has no known procedures. Plan of Care Planned Activity Planned Date Details Comments Source Future Scheduled 2021-04-04 Screening for malignant [facility] Test 13:40:02 neoplasm of colon Medicine (procedure) [code = 201868617] Future Scheduled 2021-04-04 Screening for malignant [facility] Test 13:40:02 neoplasm of breast Medicine (procedure) [code = 705011937] Future Scheduled 2021-04-04 TETANUS SHOT (ADULT) [facility] Test 13:40:02 [code = TETANUS SHOT Medicin e (ADULT)] Future Scheduled 2021-04-04 BMI FOLLOW UP PLAN [code [facility] Test 13:40:02 = BMI FOLLOW UP PLAN] Medici ne Future Scheduled 2021-04-04 Hepatitis C screening [facility] Test 13:40:02 (procedure) [code = Medicine 357768553] Future Scheduled 2021-04-04 Human immunodeficiency B [facility] Test 13:40:02 virus screening Medicine (procedure) [code = 470665285] Future Scheduled 2021-04-04 Screening for malignant [facility] Test 13:40:02 neoplasm of cervix Medicine (procedure) [code = 894868543] Future Scheduled 2021-04-04 ZOSTER VACCINE (1 of 2) [facility] Test 13:40:02 [code = ZOSTER VACCINE (1 Me dicine of 2)] Future Scheduled 2021-04-04 FLU VACCINE > 6 MONTHS B [facility] of Test 13:40:02 [code = FLU VACCINE > 6 Medi cine MONTHS] Future Scheduled 2021-04-04 COVID-19 Vaccine (2 - Ba [facility] of Test 13:40:02 Pfizer 3-dose series) Medici ne [code = COVID-19 Vaccine (2 - Pfizer 3-dose series)] Future Scheduled 2021-04-04 Screening for malignant [facility] of Test 13:40:02 neoplasm of colon Medicine (procedure) [code = 346374006] Future Scheduled 2021-04-04 Screening for malignant [facility] of Test 13:40:02 neoplasm of breast Medicine (procedure) [code = 817937067] Future Scheduled 2021-04-04 TETANUS SHOT (ADULT) [facility] of Test 13:40:02 [code = TETANUS SHOT Medicin e (ADULT)] Future Scheduled 2021-04-04 BMI FOLLOW UP PLAN [code [facility] of Test 13:40:02 = BMI FOLLOW UP PLAN] Medici ne Future Scheduled 2021-04-04 Hepatitis C screening [facility] of Test 13:40:02 (procedure) [code = Medicine 233400408] Future Scheduled 2021-04-04 Human immunodeficiency B [facility] of Test 13:40:02 virus screening Medicine (procedure) [code = 196528124] Future Scheduled 2021-04-04 Screening for malignant [facility] of Test 13:40:02 neoplasm of cervix Medicine (procedure) [code = 855932713] Future Scheduled 2021-04-04 ZOSTER VACCINE (1 of 2) [facility] of Test 13:40:02 [code = ZOSTER VACCINE (1 Me dicine of 2)] Future Scheduled 2021-04-04 FLU VACCINE > 6 MONTHS B [facility] of Test 13:40:02 [code = FLU VACCINE > 6 Medi cine MONTHS] Future Scheduled 2021-04-04 COVID-19 Vaccine (2 - Ba [facility] of Test 13:40:02 Pfizer 3-dose series) Medici ne [code = COVID-19 Vaccine (2 - Pfizer 3-dose series)] Future Scheduled 2021-01-25 Screening for malignant [facility] of Test 09:15:59 neoplasm of colon Medicine (procedure) [code = 550433279] Future Scheduled 2021-01-25 Screening for malignant [facility] 09:15:59 neoplasm of breast Medicine (procedure) [code = 730025621] Future Scheduled 2021-01-25 TETANUS SHOT (ADULT) [facility] Test 09:15:59 [code = TETANUS SHOT Medicin e (ADULT)] Future Scheduled 2021-01-25 Hepatitis C screening [facility] 09:15:59 (procedure) [code = Medicine 012573166] Future Scheduled 2021-01-25 Human immunodeficiency B [facility] 09:15:59 virus screening Medicine (procedure) [code = 599609310] Future Scheduled 2021-01-25 Screening for malignant [facility] Test 09:15:59 neoplasm of cervix Medicine (procedure) [code = 094828191] Future Scheduled 2021-01-25 ZOSTER VACCINE (1 of 2) [facility] 09:15:59 [code = ZOSTER VACCINE (1 Me dicine of 2)] Future Scheduled 2021-01-25 FLU VACCINE > 6 MONTHS B [facility] Test 09:15:59 [code = FLU VACCINE > 6 Medi cine MONTHS] Future Scheduled 2021-01-25 COVID-19 Vaccine (2 - Ba [facility] Test 09:15:59 Pfizer 2-dose series) Medici ne [code = COVID-19 Vaccine (2 - Pfizer 2-dose series)] Future Scheduled COVID-19 VACCINE (1) [facility] Test [code = COVID-19 VACCINE Hos pital (1)] Future Scheduled Hepatitis C screening [facility] Test (procedure) [code = Hospital 965228061] Future Scheduled Screening for malignant [facility]orship Test neoplasm of cervix Hospital (procedure) [code = 730666288] Future Scheduled BREAST CANCER SCREENING Worship Test [code = BREAST CANCER Hospit al SCREENING] Future Scheduled COLONOSCOPY SCREENING [facility]ist Test [code = COLONOSCOPY Hospital SCREENING] Future Scheduled SHINGLES VACCINES (#1) M ethodist Test [code = SHINGLES VACCINES Ho spital (#1)] Future Scheduled INFLUENZA VACCINE [code = Worship Test INFLUENZA VACCINE] Hospital Encounters Start End Encounter Admission Attending Care Care Encounter Source Date/Time Date/Time Type Type Clinicians Facility Department ID 2021-05-20 2021-05-20 Outpatient [facility] [id number] [facility] 08:32:32 23:59:00 Colleg e of Medicin e 2021-05-17 2021-05-19 [id number] [facility] 05:35:00 16:42:00 AHMED 2021-05-17 2021-05-17 Outpatient [facility] [id number] [facility] 00:00:00 23:59:00 Colleg e of Medicin e 2021-04-22 2021-04-22 Outpatient B[facility] [id number] [facility] 08:34:02 23:59:00 Colleg e of Medicin e 2021-04-08 2021-04-08 Outpatient [facility] [id number] [facility] 08:22:34 23:59:00 Colleg e of Medicin e 2021-03-29 2021-03-29 Office Frazier, KIM [id number] [facility] 11:00:00 13:34:50 Visit Manreet AMBULATOR 350.1.13.21 College Y 0.2.7.2.686 of [id number] Medi renea 325 e 2021-03-01 2021-03-01 Office Frazier, [facility] [id number] [facility] 09:00:00 11:07:59 Visit Manreet AMBULATOR 350.1.13.21 College Y 0.2.7.2.686 of [id number] Medi renea 325 e 2021-02-03 2021-02-06 Inpatient ER [facility] [id number] [facility] 05:14:00 16:07:00 FANG-JAMAL 2021-01-25 2021-01-25 Office FRAZIER, [facility] [id number] [facility] 00:00:00 19:54:04 Visit MANREET AMBULATOR 350.1.13.21 College Y 0.2.7.2.686 of [id number] Medi renea 325 e 2020-09-12 2020-09-12 Toby Clemons 1.2.840.1 [id number] [address] 00:00:00 00:00:00 [place]. [address].1.[address] 3.430.2.7 Hospit a .3.018849 l .8 2020-06-11 2020-06-11 Refill Kaci 1.2.840.1 [id number] [facility]i 00:00:00 00:00:00 Ace R. [address]37.1.[address] 3.430.2.7 Hospit a .3.576744 l .8 2020-03-12 2020-03-12 Orders Javier May 1.2.840.1 [id number] [facility] 00:00:00 00:00:[address] 3.430.2.7 Hospit a .3.335512 l .8 Results Test Description Test Time [...] NOT 1092) ACCURATE CRE ATININE CLEARANCE IN [place] EDICTING GLOMERULAR FILT RATION RATE. ESTIMATED GFR IS NOT APPLICABLE FOR DIALYSIS PATIENTS. Waste Collector ID - KARMEN LLACTIC ACID, [id number] 05:11:20 Test Item Value Reference Range Interpretation Comments LACTATE BLOOD VENOUS (2) (BEAKER) 2.49 mmol/L 0.50-2.20 H (test code = 2872) Waste Collector ID - DBCBC W/PLT COUNT & AUTO [id number] 05:00:57 Test Item Value Reference Range Interpretation [...] 0-1 PERCENT (BEAKER) (test code = 2801) [id number] 06:40:18 Test Item Value Reference Range Interpretation Comments PHOSPHORUS (BEAKER) 3.3 mg/dL 2.3-4.7 Specimen slightly (test code = 604) hemolyzed Waste Collector ID - DBBASIC METABOLIC [id number] 06:40:18 Test Item Value Reference Range Interpretation [...] S NOT APPLICABLE FOR DIALYSIS PATIEN TS. Waste Collector ID - [id number] 06:40:17 Test Item Value Reference Range Interpretation Comments MAGNESIUM (BEAKER) 1.9 mg/dL 1.6-2.6 Specimen slightly (test code = 627) hemolyzed Waste Collector ID - DBCBC (HEMOGRAM ONLY)2021-05-18 05:39:35 Test [...] 0-0 (BEAKER) (test code = 413) SARS-COV2/RT-PCR ([facility])2021-05-17 14:30:52 Test Item Value Reference Range Interpretation Comments SARS-COV2/RT-PCR (test Negative Not Detected, Negative, code = 8820103) See external report for linked test SARS-COV-2 PERFORMING LAB [facility] (test code = 1309837) Negative result for this test determines that [...] 564(g) of the Act.Fact Sheet for Healthcare Providers:https://www.SQMOS/sites/default/files/product/documents/Fact_Shee w_JK_Pwdjrynmc_Leww_ZMSS-RhR-5.pdfFact Sheet for Healthcare Patients:https://www.SQMOS/sites/default/files/product/ documents/Oarl_Fdnop_Lqatrbnl_Bgml_ZHXF-RbT-7.pdfPerforming Laboratory:[facility], [place] [address]YVO, CHEST, 1 VIEW, NON [id number] 11:04:00Reason for exam:->new admission with possible entero-enteric fistulaShould this be performed at the bedside?->Yes [facility] 1955 Sex: FFINAL [...] No acute intrathoracic abnormality. Signed: John Becerril Verified Date/Time: 05/17/2021 11:04:57 Reading Location: [facility] Radiology Reading Room RAD, ABDOMEN/KUB, 1 VIEW [id number] 10:21:00Reason for exam:->concern for small bowel obstructionShould this be performed at the bedside?->Yes [facility] 1955 Sex: FFINAL [...] partial small bowel obstruction. Signed: John Becerril Verified Date/Time: 05/17/2021 10:21:20 Reading Location: [facility] Radiology Reading Room [id number] 09:42:25 Test Item Value Reference Range Interpretation Comments PHOSPHORUS (BEAKER) (test code = 2.6 mg/dL 2.3-4.7 604) Waste Collector ID - DBBASIC METABOLIC [id number] 09:42:24 Test Item Value Reference Range Interpretation [...] S NOT APPLICABLE FOR DIALYSIS PATIEN TS. Waste Collector ID - [id number] 09:42:24 Test Item Value Reference Range Interpretation Comments MAGNESIUM (BEAKER) (test code = 1.9 mg/dL 1.6-2.6 627) Waste Collector ID - DBPROTHROMBIN [id number] 09:28:59 Test Item Value Reference Range Interpretation Comments PROTIME (BEAKER) 12.9 seconds 11.9-14.2 (test code = 759) INR (BEAKER) (test 0.99 See_Comment [Automat ed message] code = 370) The system PPI generated this result transmitted ref erence range: [...] (BEAKER) (test code = 413) HEPATITIS B [id number] 20:49:20 Test Item Value Reference Range Interpretation Comments HEPATITIS B CORE TOTAL ANTIBODY Nonreactive Nonreactive (BEAKER) (test code = 497) HEPATITIS B SURFACE ANTIBODY < mIU/mL <8.0 (BEAKER) (test code = 647) HEPATITIS B SURFACE ANTIGEN (2) Nonreactive Nonreactive (BEAKER) (test code = 2585) Waste Collector ID - BSOperator ID - BSVITAMIN D, [id number] 18:58:29 Test Item Value Reference Range Interpretation Comments VITAMIN D 25-OH (BEAKER) (test 48.0 ng/mL 6.6-49.9 code = 2764) Effective 11/26/2016: Reference Range ChangeNew: 6.6-49.9 ng/mL Previous: 13.0-47.8 ng/mLRecommended Vitamin D Target Range: 30.0-40.0 ng/mLOperator ID - BS. DIFFICILE GDH [id number] 13:19:34 Test Item Value Reference Range Interpretation Comments CDT TOXIN (test code Negative Negative = [id number]) CDT GDH ANTIGEN (test Negative Negative No ind ication of code = 9907977419) Clostridi um difficile infection and n o colonization. Discontinue ent randy isolation and t herapy. Testing performed by [employer] Rapid Cassette Assay. For GDH, published sensitivity of the assay is 98.7% compared to cytotoxicity testing. For Toxin AB, published sensitivity is 87.8% and specificity 99.4% compared to cytotoxicity testing.Verification of kit performance was done by the [facility] Microbiology Lab prior to clinical use.BASIC METABOLIC [id number] 05:52:32 Test Item Value Reference Range Interpretation [...] S NOT APPLICABLE FOR DIALYSIS PATIEN TS. Waste Collector ID - PIAYA LCBC (HEMOGRAM ONLY)2021-02-06 05:38:48 [...] (BEAKER) (test code = 413) BASIC METABOLIC [id number] 05:38:29 Test Item Value Reference Range Interpretation [...] S NOT APPLICABLE FOR DIALYSIS PATIEN TS. Waste Collector ID - DEANNA MC-REACTIVE [id number] 05:38:29 Test Item Value Reference Range Interpretation Comments C-REACTIVE PROTEIN (BEAKER) (test 3.86 mg/dL 0.00-0.50 H code = 676) Waste Collector ID - DEANNA MCBC (HEMOGRAM ONLY)2021-02-05 05:28:27 [...] 0-0 (BEAKER) (test code = 413) CT, [id number] 16:56:00Unlisted Reason for Exam - Click Yes and Enter Reason Below->NoIs this for enterography?->NoWill this procedure require oral contrast?->No [facility] 1955 Sex: FFINAL [...] MDReport Verified Date/Time: 02/04/2021 16:56:27 Reading Location: [facility] Diagnostic Imaging Reading Room - [place] [id number] VITAMIN B12 AND [id number] 07:14:11 Test Item Value Reference Range Interpretation Comments VITAMIN B12 187 pg/mL 213-816 L (BEAKER) (test code = 774) FOLATE (BEAKER) 18.90 ng/mL See_Comment [Automated message] (test code = 362) The system which generated this result transmitted ref erence range: >=7.00. The reference range was not used to interpr et this result as normal/abnormal . Waste Collector ID - LIDA [id number] 07:14:10 Test Item Value Reference Range Interpretation Comments FERRITIN (BEAKER) (test code = 110.79 ng/mL 5.00-275.00 361) Waste Collector ID - LIDA FIRON, TIBC, % SAT. (WITHOUT FERRITIN)2021-02-04 06:55:40 Test Item Value Reference Range Interpretation Comments IRON (BEAKER) (test code = 547) 75.0 ug/dL 40.0-160.0 TOTAL IRON BINDING CAPACITY 258 ug/dL 250-450 (BEAKER) (test code = 769) IRON % SATURATION (2) (BEAKER) 29 % 20-55 (test code = 2590) Waste Collector ID - LIDA FHEPATIC FUNCTION [id number] 16:57:11 Test Item Value Reference Range Interpretation [...] Specimen slightly (test code = 347) hemolyzed Waste Collector ID - KARMEN LHEMOGLOBIN [id number] 12:28:44 Test Item Value Reference Range Interpretation Comments HEMOGLOBIN A1C (BEAKER) (test code = 5.3 % 4.3-6.1 368) [id number] 09:47:42 Test Item Value Reference Range Interpretation Comments PHOSPHORUS (BEAKER) 3.5 mg/dL 2.3-4.7 Specimen slightly (test code = 604) hemolyzed Waste Collector ID - PINANCIE LBASIC METABOLIC [id number] 09:47:42 Test Item Value Reference Range Interpretation [...] S NOT APPLICABLE FOR DIALYSIS PATIEN TS. Waste Collector ID - PINANCIE [id number] 09:47:41 Test Item Value Reference Range Interpretation Comments MAGNESIUM (BEAKER) 2.2 mg/dL 1.6-2.6 Specimen slightly (test code = 627) hemolyzed Waste Collector ID - KARMEN LC-REACTIVE [id number] 09:45:23 Test Item Value Reference Range Interpretation Comments C-REACTIVE PROTEIN (BEAKER) (test 3.67 mg/dL 0.00-0.50 H code = 676) Waste Collector ID - PIAYA LCBC W/PLT COUNT & AUTO [id number] 09:23:38 Test Item Value Reference Range Interpretation [...] code = 2801) RAD, ABDOMEN/KUB, 1 VIEW [id number] 07:28:00Reason for exam:->NGT tube placementShould this be performed at the bedside?->Yes [facility] 1955 Sex: FFINAL REPORT RAD, ABDOMEN/KUB, 1 VIEW AP INDICATION: NGT tube placementCOMPARISON: None TECHNIQUE: Limited portable radiograph of the lower chest and upper abdomen was acquired for purposes of evaluating tube placement FINDINGS/IMPRESSION:NG side-port overlies the stomach Signed: Rory Quiroga Verified Date/Time: 02/03/2021 07:28:00
[2021-06-04 17:11] LABS: Absolute Lymphocytes (CBC) 3.8 K/uL (0.7-4.9); Hematocrit 39.5 % (36.0-45.0); Lymphocytes % 32.2 % (15.3-44.8); MPV 7.2 fL (7.6-11.3); RBC Red Blood Cell Count 4.39 M/uL (3.86-4.86)
[2021-06-04 17:25] LABS: Albumin 3.3 g/dL (3.4-5.0); Bilirubin Total 0.4 mg/dL (0.2-1.0); Potassium 3.4 mmol/L (3.5-5.1); Protein, Total 6.9 g/dL (6.4-8.2)
[2021-06-04] MEDS ORDERED: MORPHINE 4 MG/ML SYR ONE ×2 (18:03→20:57)
[2021-06-04] MEDS ORDERED: ONDANSETRON 4 MG/2 ML VIAL ONE ×2 (18:03→20:57)
[2021-06-04] MEDS ORDERED: NA CHLORIDE 0.9% 1,000 ML ONE (18:03)
--- NOTE | 2021-06-04 18:36 | RAD REPORT ---
EXAM DESCRIPTION: CT - Abdomen Pelvis W Contrast - 06/04/2021 6:12 pm CLINICAL HISTORY: Abdominal pain, acute, nonlocalized COMPARISON: Abdomen Pelvis W Contrast dated 05/20/2021 TECHNIQUE: Biphasic, helical CT imaging of the abdomen and pelvis was performed following 100 ml non -ionic IV contrast. No oral contrast administered. All CT scans are performed using dose optimization technique as appropriate and may include automated exposure control or mA/KV adjustment according to patient size. FINDINGS: No suspicious findings in the lung bases. The liver, spleen, and pancreas show no suspicious findings. Gallbladder and biliary tree are also wi thout suspicious finding. Symmetric renal function is seen with no hydronephrosis or suspicious renal mass. Small renal cysts a re unchanged. No pyelonephritis or acute parenchymal process. No bladder abnormalities. No adrenal ab normalities. Uterus and ovaries show no suspicious findings. Food and fluid distended do not dilate the stomach. No acute gastric finding. No duodenal abnormality seen. Multiple dilated mid small bowel loops are present. Transition point is present in the lower r ight abdomen where there is adhesion and scarring changes that involve the mid small bowel and termin al ileum. Small bowel obstruction pattern is very similar to the May 20 examination. No free air or pneumatosis. No abnormal free fluid. No new mass or bulky lymphadenopathy. No omental thickening. No suspicious bony findings. IMPRESSION: Small bowel obstruction pattern without free air, pneumatosis or other surgically emerge nt finding. The obstruction pattern matches the May 20 study. There are focal bowel and mesenteric scarring hollingsworth ges in the lower right abdomen near the ileocecal valve involving the terminal ileum and loops of mid small bowel.
--- NOTE | 2021-06-04 19:30 | ER ---
Nurse's Notes [facility] Name: Kindra Novoa Age: 65 yrs Sex: Female : 1955 Arrival Date: 06/04/2021 Time: 15:33 Bed 17 Private MD: Moriah Vasquez Diagnosis: Small Bowel Obstruction Presentation: 06/04 16:28 Chief complaint: Patient states: upper abd pain since this morning, no vomiting, mild iw nausea, is having watery stools, this feels the same as when she has had bowel obstructions. Coronavirus screen: At this time, the client does not indicate any symptoms associated with coronavirus-19. Ebola Screen: Patient negative for fever greater than or equal to 101.5 degrees Fahrenheit, and additional compatible Ebola Virus Disease symptoms Patient denies exposure to infectious person. Patient denies travel to an Ebola-affected area in the 21 days before illness onset. No symptoms or risks identified at this time. Initial Sepsis Screen: Does the patient meet any 2 criteria? No. Patient's initial sepsis screen is negative. Does the patient have a suspected source of infection? No. Patient's initial sepsis screen is negative. Risk Assessment: Do you want to hurt yourself or someone else? Patient reports no desire to harm self or others. Onset of symptoms was June 04, 2021. 16:28 Method Of Arrival: Ambulatory iw 16:28 Acuity: KAROL 3 iw Triage Assessment: 23:02 General: Appears in no apparent distress. Behavior is calm, cooperative, appropriate ag7 for age. Historical: - Allergies: 16:30 Ciprofloxacin; iw 16:30 Flagyl; iw 16:30 Latex, Natural Rubber; iw - PMHx: 16:30 Colitis; Crohn's Disease; Depression; Hypertension; Hypothyroidism; Insulin Resistance; iw bowel obstruction; - Immunization history:: Adult Immunizations up to date. - Social history:: Smoking status: Patient denies any tobacco usage or history of. Screenin:45 Abuse screen: Denies threats or abuse. Nutritional screening: No deficits noted. vg1 Tuberculosis screening: No symptoms or risk factors identified. Fall Risk No fall in past 12 months (0 pts). No secondary diagnosis (0 pts). IV access (20 points). Ambulatory Aid- None/Bed Rest/Nurse Assist (0 pts). Gait- Normal/Bed Rest/Wheelchair (0 pts) Mental Status- Oriented to own ability (0 pts). Total Ferrell Fall Scale indicates No Risk (0-24 pts). Assessment: 17:45 Pain: Complains of pain in epigastric area Pain currently is 9 out of 10 on a pain vg1 scale. Pain began this morning. Neuro: Level of Consciousness is awake, alert, obeys commands, Oriented to person, place, time, situation. Cardiovascular: Patient's skin is warm and dry. Respiratory: Airway is patent Respiratory effort is even, unlabored. GI: Abdomen is round Bowel sounds present X 4 quads. Abdomen is tender to palpation in epigastric area Reports diarrhea, nausea. : No signs and/or symptoms were reported regarding the genitourinary system. EENT: No signs and/or symptoms were reported regarding the EENT system. Derm: Skin is intact, is healthy with good turgor. Musculoskeletal: Circulation, motion, and sensation intact. 19:15 Reassessment: Patient and/or family updated on plan of care and expected duration. Pain ag7 level reassessed. Patient is alert, oriented x 3, equal unlabored respirations, skin warm/dry/pink. pain to abdomen 5/10 Patient states feeling better. Patient states symptoms have improved. 20:15 Reassessment: Patient and/or family updated on plan of care and expected duration. Pain ag7 level reassessed. Patient is alert, oriented x 3, equal unlabored respirations, skin warm/dry/pink. Patient states feeling better. Patient states symptoms have improved. 21:15 Reassessment: No changes from previously documented assessment. ag7 22:15 Reassessment: No changes from previously documented assessment. ag7 06/05 02:14 Reassessment: Verbal order received from Janina SKINNER Morphine 4 mg and Zofran 4 mg ag7 IVP, read back. Vital Signs: 06/04 16:28 BP 124 / 81; Pulse 68; Resp 16; Temp 98.1; Pulse Ox 97% on R/A; iw 17:45 BP 114 / 58; Pulse 60; Resp 16; Pulse Ox 96% on R/A; vg1 19:00 BP 117 / 49; Pulse 53; Resp 16 S; Pulse Ox 96% ; Pain 5/10; ag7 20:00 BP 99 / 33; Pulse 53; Resp 16 S; Pulse Ox 94% ; Pain 5/10; ag7 20:12 BP 139 / 59; Pulse 54; Resp 16; Pulse Ox 94% ; Pain 5/10; ag7 21:00 BP 93 / 52; Pulse 55; Resp 16; Pulse Ox 92% on R/A; Pain 9/10; ag7 21:30 Pain 3/10; ag7 21:30 BP 92 / 66; Pulse 55; Resp 16 S; Pulse Ox 92% on R/A; Pain 3/10; ag7 22:00 BP 99 / 83; Pulse 58; Resp 16; Pulse Ox 96% ; Pain 3/10; ag7 04/20 03:10 Pain 6/10; ag7 03:10 Pain 6/10; ag7 03:15 Pain 7/10; ag7 ED Course: 06/04 15:33 Patient arrived in ED. am2 15:34 Moriah Vasquez is Private Physician. am2 15:49 Esa Betts PA is PHCP. cp 15:49 Leon Tian MD is Attending Physician. cp 16:30 Triage completed. iw 16:30 Arm band placed on. iw 17:15 COVID-19 SARS RT PCR (Document "Date of Onset" if Symptomatic) Sent. ll1 17:41 Vandana Arriola, RN is Primary Nurse. vg1 17:45 Patient has correct armband on for positive identification. Bed in low position. Call vg1 light in reach. Side rails up X 1. Adult w/ patient. 18:13 CT Abd/Pelvis - IV Contrast Only In Process Unspecified. EDMS 19:05 Report given to Vane ALVARADO. vg1 19:29 Janina Sena PA is Hospitalizing Provider. cp 21:53 No provider procedures requiring assistance completed. ag7 Administered Medications: 16:02 Drug: morphine 4 mg Route: IVP; Site: right antecubital; vg1 18:44 Follow up: Response: No adverse reaction; Marked relief of symptoms vg1 17:58 Drug: NS 0.9% 1000 ml Route: IV; Rate: 500 ml/hr; Site: right antecubital; vg1 18:00 Drug: Zofran (Ondansetron) 4 mg Route: IVP; Site: right antecubital; vg1 18:44 Follow up: Response: No adverse reaction; Marked relief of symptoms vg1 19:43 Drug: SOLU-Medrol (methylPrednisoLONE) 125 mg Route: IVP; Site: right antecubital; ag7 20:15 Follow up: Response: No adverse reaction; Marked relief of symptoms ag7 19:43 Drug: Zosyn (piperacillin-tazobactam) 3.375 grams Route: IVPB; Infused Over: 60 mins; ag7 Site: right antecubital; 21:30 Follow up: Response: No adverse reaction; IV Status: Completed infusion; IV Intake: ag7 100ml 21:02 Drug: morphine 4 mg {Note: RASS 0.} Route: IVP; Site: right antecubital; ag7 21:30 Follow up: Pain 3/10 Adult; Response: No adverse reaction; Marked relief of symptoms ag7 06/05 03:15 Follow up: Pain 7/10 Adult; Response: No adverse reaction ag7 06/04 21:02 Drug: Zofran (Ondansetron) 4 mg Route: IVP; Site: right antecubital; ag7 21:30 Follow up: Response: No adverse reaction; Marked relief of symptoms 7 06/05 02:39 CANCELLED (Different dose orderedd): morphine 4 mg IVP once; RASS on ADMIN: Combtv4, vc1 Very Agttd3, Agttd2, Rstlss1, AlertClm0, Drwsy-1, Lt Sdtn-2, Mod Sdtn-3, Dp Sdtn-4, UnArsble-5 02:41 Drug: Zofran (Ondansetron) 4 mg Route: IVP; Site: right antecubital; vc1 03:10 Follow up: Pain 6/10 Adult; Response: No adverse reaction ag7 03:15 Follow up: Response: No adverse reaction ag7 02:41 Drug: morphine 2 mg Route: IVP; Site: right antecubital; vc1 03:10 Follow up: Pain 6/10 Adult; Response: No adverse reaction; Pain is decreased ag7 Intake: 06/04 21:30 IV: 100ml; Total: 100ml. ag7 Outcome: 19:29 Decision to Hospitalize by Provider. cp 06/05 13:52 Patient left the ED. vg1 Signatures: Dispatcher [employer] Adriane Melo RN RN iw Esa Betts PA PA cp Moreno, Amanda am2 Vandana Arriola RN RN vg1 [place], RN RN ll1 Oneida Covington RN RN vc1 Vane Aparicio RN RN ag7 Corrections: (The following items were deleted from the chart) 06/04 16:30 16:28 Pulse 68bpm; Resp 16bpm; Pulse Ox 97% RA; Temp 98.1F; iw ammy
--- NOTE | 2021-06-04 19:30 | EDPHYS ---
Physician Documentation [facility] Name: Kindra Novoa Age: 65 yrs Sex: Female : 1955 Arrival Date: 06/04/2021 Time: 15:33 Bed 17 Private MD: Moriah Vasquez ED Physician Leon Tian HPI: 06/04 17:00 This 65 yrs old Female presents to ER via Ambulatory with complaints of cp Abdominal Pain. 17:00 The patient presents with abdominal pain in the upper abdomen. cp 17:00 Onset: The symptoms/episode began/occurred this morning. Associated signs and symptoms: cp Pertinent positives: diarrhea, nausea, Pertinent negatives: blood in stools, chest pain, vomiting. The symptoms are described as constant. Severity of pain: in the emergency department the pain is unchanged despite home interventions. The patient has experienced similar episodes in the past, multiple times, today's symptoms are similar, to when the patient was apparently diagnosed with bowel obstruction. Historical: - Allergies: 16:30 Ciprofloxacin; iw 16:30 Flagyl; iw 16:30 Latex, Natural Rubber; iw - PMHx: 16:30 Colitis; Crohn's Disease; Depression; Hypertension; Hypothyroidism; Insulin Resistance; iw bowel obstruction; - Immunization history:: Adult Immunizations up to date. - Social history:: Smoking status: Patient denies any tobacco usage or history of. ROS: 17:05 Constitutional: Negative for body aches, chills, fever, poor PO intake. cp 17:05 Eyes: Negative for injury, pain, redness, and discharge. cp 17:05 ENT: Negative for drainage from ear(s), ear pain, sore throat, difficulty swallowing, difficulty handling secretions. 17:05 Cardiovascular: Negative for chest pain, edema, palpitations. 17:05 Respiratory: Negative for cough, shortness of breath, wheezing. 17:05 Abdomen/GI: Positive for abdominal pain, nausea, diarrhea, Negative for vomiting, hematemesis, black/tarry stool, rectal bleeding. 17:05 : Negative for urinary symptoms. 17:05 Neuro: Negative for altered mental status, headache, weakness. 17:05 All other systems are negative. Exam: 17:10 Constitutional: The patient appears in no acute distress, alert, awake, cp non-diaphoretic, non-toxic, well developed, well nourished, obese. 17:10 Head/Face: Normocephalic, atraumatic. cp 17:10 Eyes: Periorbital structures: appear normal, Conjunctiva: normal, no exudate, no injection, Sclera: no appreciated abnormality, Lids and lashes: appear normal, bilaterally. 17:10 ENT: External ear(s): are unremarkable, Nose: is normal, Mouth: Lips: moist, Oral mucosa: pink and intact, moist, Posterior pharynx: Airway: no evidence of obstruction, patent. 17:10 Chest/axilla: Inspection: normal. 17:10 Cardiovascular: Rate: normal, Rhythm: regular, Edema: is not appreciated, JVD: is not appreciated. 17:10 Respiratory: the patient does not display signs of respiratory distress, Respirations: normal, no use of accessory muscles, no retractions, labored breathing, is not present, Breath sounds: are clear throughout, no decreased breath sounds, no stridor, no wheezing. 17:10 Abdomen/GI: Inspection: distension, that is moderate, in the abdomen diffusely, Bowel sounds: active, all quadrants, Palpation: soft, in all quadrants, moderate abdominal tenderness, in the right upper quadrant and left upper quadrant, rebound tenderness, is not appreciated, voluntary guarding, is elicited in the right upper quadrant and left upper quadrant. 17:10 Back: CVA tenderness, is absent. 17:10 Neuro: Orientation: to person, place \\T\\ time. Mentation: is normal, Motor: moves all fours, strength is normal. Vital Signs: 16:28 BP 124 / 81; Pulse 68; Resp 16; Temp 98.1; Pulse Ox 97% on R/A; iw 17:45 BP 114 / 58; Pulse 60; Resp 16; Pulse Ox 96% on R/A; vg1 19:00 BP 117 / 49; Pulse 53; Resp 16 S; Pulse Ox 96% ; Pain 5/10; ag7 20:00 BP 99 / 33; Pulse 53; Resp 16 S; Pulse Ox 94% ; Pain 5/10; ag7 20:12 BP 139 / 59; Pulse 54; Resp 16; Pulse Ox 94% ; Pain 5/10; ag7 21:00 BP 93 / 52; Pulse 55; Resp 16; Pulse Ox 92% on R/A; Pain 9/10; ag7 21:30 Pain 3/10; ag7 21:30 BP 92 / 66; Pulse 55; Resp 16 S; Pulse Ox 92% on R/A; Pain 3/10; ag7 22:00 BP 99 / 83; Pulse 58; Resp 16; Pulse Ox 96% ; Pain 3/10; ag7 06/05 03:10 Pain 6/10; ag7 03:10 Pain 6/10; ag7 03:15 Pain 7/10; ag7 MDM: 06/04 17:05 Patient medically screened. 19:25 Data reviewed: vital signs, nurses notes, lab test result(s), radiologic studies, CT cp scan. 06/04 16:32 Order name: CBC with Diff; Complete Time: 17:45 iw 06/04 19:25 Interpretation: Normal except: WBC 11.9; PLT 372; MPV 7.2. 06/04 16:32 Order name: CMP; Complete Time: 17:45 iw 06/04 16:32 Order name: Lipase; Complete Time: 17:45 06/04 16:54 Order name: COVID-19 SARS RT PCR (Document "Date of Onset" if Symptomatic); Complete iw Time: 19:24 06/04 17:06 Order name: Lactate; Complete Time: 18:44 cp 06/05 04:02 Order name: Urine Dipstick-Ancillary EDUT 06/04 17:46 Order name: CT Abd/Pelvis - IV Contrast Only; Complete Time: 18:44 cp 06/04 18:44 Interpretation: Report reviewed. 06/05 04:25 Order name: Urinalysis EDUT 06/05 04:52 Order name: Urine Microscopic Only EDUT 06/05 05:43 Order name: CBC with Automated Diff EDMS 06/05 05:57 Order name: Comprehensive Metabolic Panel EDMS 06/05 05:57 Order name: Phosphorus EDMS 06/05 05:57 Order name: Magnesium EDMS 06/04 16:32 Order name: IV Saline Lock; Complete Time: 17:15 iw 06/04 16:32 Order name: Labs collected and sent; Complete Time: 17:15 iw Administered Medications: 16:02 Drug: morphine 4 mg Route: IVP; Site: right antecubital; vg1 18:44 Follow up: Response: No adverse reaction; Marked relief of symptoms vg1 17:58 Drug: NS 0.9% 1000 ml Route: IV; Rate: 500 ml/hr; Site: right antecubital; vg1 18:00 Drug: Zofran (Ondansetron) 4 mg Route: IVP; Site: right antecubital; vg1 18:44 Follow up: Response: No adverse reaction; Marked relief of symptoms vg1 19:43 Drug: SOLU-Medrol (methylPrednisoLONE) 125 mg Route: IVP; Site: right antecubital; ag7 20:15 Follow up: Response: No adverse reaction; Marked relief of symptoms ag7 19:43 Drug: Zosyn (piperacillin-tazobactam) 3.375 grams Route: IVPB; Infused Over: 60 mins; ag7 Site: right antecubital; 21:30 Follow up: Response: No adverse reaction; IV Status: Completed infusion; IV Intake: ag7 100ml 21:02 Drug: morphine 4 mg {Note: RASS 0.} Route: IVP; Site: right antecubital; ag7 21:30 Follow up: Pain 3/10 Adult; Response: No adverse reaction; Marked relief of symptoms ag7 06/05 03:15 Follow up: Pain 7/10 Adult; Response: No adverse reaction ag7 06/04 21:02 Drug: Zofran (Ondansetron) 4 mg Route: IVP; Site: right antecubital; ag7 21:30 Follow up: Response: No adverse reaction; Marked relief of symptoms ag7 06/05 02:39 CANCELLED (Different dose orderedd): morphine 4 mg IVP once; RASS on ADMIN: Combtv4, vc1 Very Agttd3, Agttd2, Rstlss1, AlertClm0, Drwsy-1, Lt Sdtn-2, Mod Sdtn-3, Dp Sdtn-4, UnArsble-5 02:41 Drug: Zofran (Ondansetron) 4 mg Route: IVP; Site: right antecubital; vc1 03:10 Follow up: Pain 6/10 Adult; Response: No adverse reaction ag7 03:15 Follow up: Response: No adverse reaction ag7 02:41 Drug: morphine 2 mg Route: IVP; Site: right antecubital; vc1 03:10 Follow up: Pain 6/10 Adult; Response: No adverse reaction; Pain is decreased ag7 Disposition Summary: 06/04/21 19:29 Hospitalization Ordered Hospitalization Status: Inpatient Admission cp Provider: Janina Sena cp Condition: Stable cp Problem: an ongoing problem cp Symptoms: have improved cp Bed/Room Type: Standard cp Location: Telemetry/MedSurg (Inpatient)(06/05/21 09:16) dw Room Assignment: 403(06/05/21 09:16) dw Diagnosis - Small Bowel Obstruction cp Forms: - Medication Reconciliation Form cp - SBAR form cp Addendum: 06/06/2021 18:37 Co-signature as Attending Physician, Leon jc a2 Signatures: Dispatcher [employer] EDMS Pat Vieira Diana, RN RN dw Williams, Irene RN CHRISTIANO iw Esa Betts PA PA cp Garcia, Cindy, Leon Vora RN, MD MD ma2 Vandana Arriola RN RN vg1 Oneida Covington RN RN vc1 Janina Sena, BRODY PA sb3 Vane Aparicio, RN RN ag7 Corrections: (The following items were deleted from the chart) 06/04 21:14 19:29 Telemetry/MedSurg (Inpatient) cp cg 21:14 19:29 cp cg 23:42 17:00 The patient presents with abdominal pain that is diffuse, cp cp 06/05 02:39 02:14 morphine 4 mg IVP once; RASS on ADMIN: Combtv4, Very Agttd3, Agttd2, Rstlss1, vc1 AlertClm0, Drwsy-1, Lt Sdtn-2, Mod Sdtn-3, Dp Sdtn-4, UnArsble-5 ordered. ag7 09:15 06/04 21:14 [facility] ER HOLD cg bd 06/05 09:15 06/04 21:14 ERHOLD- cg bd 06/05 09:16 09:15 Telemetry/MedSurg (Inpatient) bd dw 09:16 09:15 403 bd dw
[2021-06-04] MEDS ORDERED: METHYLPREDNISOLONE 125 MG INJ ONE (19:37)
[2021-06-04] MEDS ORDERED: PIPERACIL/TAZO 3.375 GM VIAL IV ONE (19:37)
[2021-06-04] MEDS ORDERED: NA CHLORIDE 0.9% 100 ML IV ONE (19:37)
--- NOTE | 2021-06-04 20:40 | P.HP ---
Certification for Inpatient Patient admitted to: Inpatient With expected LOS: <2 Midnights Patient will require the following post-hospital care: None Practitioner: I am a practitioner with admitting privileges, knowledge of patient current condition, hospital course, and medical plan of care. Services: Services provided to patient in accordance with Admission requirements found in Title 42 Section 412.3 of the Code of Federal Regulations Patient History Date of Service: 06/04/21 Reason for admission: SBO History of Present Illness: Patient is a 65-year-old female with past medical history of hypertension, hypothyroidism, Crohn's disease, recurrent small bowel obstructions who presented to the ED with complaints of abdominal pain that b angelito last night. Patient reports the pain is similar to her previous bowel obstructions. She reports having a bowel movement this morning and passing gas throughout the day. She reports some nausea but denies vomiting. She states that her abdominal pain has been under control since her last discharge. In the ED, labs are significant for white blood cell count of 11.4. CT abdomen pelvis "Small bowel obstruction pattern without free air, pneumatosis or other surgically emergent finding. The obstruction pattern matches the May 20 study. There are focal bowel and mesenteric scarring changes in the lower right abdomen near the ileocecal valve involving the terminal ileum and loops of mid small bowel." GI and general surgery both notified. They wish for patient to be started on Zosyn, Solu-Medrol, and NPO. Patient reports her pain is improved after morphine. Will admit patient for further evaluation and treatment. Allergies ciprofloxacin Allergy (Verified 07/12/20 22:34) Itching/Hives/Rash latex [Latex] Allergy (Verified 05/12/11 07:41) Itching/Hives/Rash Latex, Natural Rubber Allergy (Verified 06/07/20 05:52) Unknown metronidazole Allergy (Verified 07/12/20 22:34) Itching/Hives/Rash buspirone Adverse Reaction (Verified 07/12/20 22:35) Nausea/Vomiting Home medications list reviewed: Yes Home Medications: Levothyroxine Sodium 25 mcg PO DAILY 07/27/20 Sertraline [Zoloft*] 150 mg PO BEDTIME 07/27/20 buPROPion HCL [Bupropion HCl] 150 mg PO BID 12/10/20 Ondansetron [Zofran (Odt)*] 4 mg PO Q6H PRN #10 tab 03/08/21 Atorvastatin Calcium 10 mg PO DAILY 04/05/21 Metoprolol Succinate [Toprol Xl*] 50 mg PO BID 04/05/21 Pantoprazole [Protonix Tab*] 1 tab PO DAILY 05/21/21 predniSONE [Deltasone*] 10 mg PO DAILY #30 tab 05/22/21 - Past Medical/Surgical History Diabetic: No -: HTN -: Prediabetes -: Hypothyroidism -: Depression -: Recurrent SBO -: GERD -: Crohn's disease -: Psychosocial/ Personal History: Patient is . - Family History Father -: Cancer Notes: lung Cx Mother -: Heart disease - Social History Smoking Status: Never smoker Alcohol use: No CD- Drugs: No Caffeine use: Yes Place of Residence: Home Review of Systems Gastrointestinal: Nausea, Abdominal Pain, No Distention, As per HPI Physical Examination - Physical Exam General: Alert, In no apparent distress HEENT: Atraumatic, PERRLA, Mucous membr. moist/pink, EOMI, Sclerae nonicteric Neck: Supple, 2+ carotid pulse no bruit, No LAD, Without JVD or thyroid abnormality Respiratory: Clear to auscultation bilaterally, Normal air movement Cardiovascular: Regular rate/rhythm, Normal S1 S2 Gastrointestinal: Normal bowel sounds, Soft and benign, Non-distended, No masses, No rebound, No guarding, Tenderness (mild) Musculoskeletal: No tenderness Integumentary: No rashes Neurological: Normal speech, Normal strength at 5/5 x4 extr, Normal tone, Normal affect - Studies Laboratory Data (last 24 hrs) 06/04/21 17:00: Sodium 141, Potassium 3.4 L, BUN 21 H, Creatinine 1.35 H, Glucose 100, Total Bilirubin 0.4, AST 9 L, ALT 21, Alkaline Phosphatase 96, Lipase 91 06/04/21 17:00: WBC 11.9 H D, Hgb 13.0, Hct 39.5, Plt Count 372 D Assessment and Plan - Problems (Diagnosis) (1) Small bowel obstruction Current Visit: Yes Status: Chronic (2) Crohn's disease Current Visit: Yes Status: Chronic Qualifiers: Gastrointestinal tract location: unspecified location Digestive disease co mplication type: with intestinal obstruction Qualified Code(s): K50.912 - Crohn's disease, unspecified, with intestinal obstruction (3) Hypertension Current Visit: Yes Status: Chronic Qualifiers: Hypertension type: primary hypertension Qualified Code(s): I10 - Essential (primary) hypertension (4) Hypothyroidism Current Visit: Yes Status: Chronic Qualifiers: Hypothyroidism type: acquired Qualified Code(s): E03.9 - Hypothyroidism, unspecified - Plan -General surgery and GI consulted -White blood cell count slightly elevated 11.4. Started on Zosyn and Solu- Medrol -N.p.o. and IV fluids -Zofran as needed nausea -hold off on NG tube unless intractable vomiting occurs -Patient reports she has been having bowel movements and passing gas today. We will continue to monitor. Vital signs stable -Continue home medications as appropriate -Lovenox for DVT prophylaxis Discharge Plan: Home Plan to discharge in: 48 Hours - Advance Directives Does patient have a Living Will: No Does patient have a Durable POA for Healthcare: No - Code Status/Comfort Care Code Status Assessed: Yes (Full) Critical Care: No Time Spent Managing Pts Care (In Minutes): 50
[2021-06-05 00:21] VITALS: BMI 44.7
[2021-06-05] MEDS: NA CHLORIDE 0.9% 1,000 ML IV SCH ×3 (00:22→22:16)
[2021-06-05] MEDS: METHYLPREDNISOLONE 125 MG INJ IV SCH ×4 (00:22→17:47)
[2021-06-05] MEDS ORDERED: NA CHLORIDE 0.9% 1,000 ML ONE ×2 (00:30→09:16)
[2021-06-05] MEDS: PIPER TAZO 3.375 GM in NA CHLORIDE 0.9% 100 ML IV SCH ×3 (01:00→16:12)
[2021-06-05] MEDS ORDERED: PIPERACIL/TAZO 3.375 GM VIAL IV ONE ×2 (01:10→09:16)
[2021-06-05] MEDS ORDERED: NA CHLORIDE 0.9% 100 ML IV ONE ×2 (01:10→09:16)
[2021-06-05] MEDS ORDERED: METHYLPREDNISOLONE 125 MG INJ ONE ×3 (01:10→11:50)
[2021-06-05] MEDS ORDERED: MORPHINE 4 MG/ML SYR ONE ×3 (02:26→11:50)
[2021-06-05] MEDS ORDERED: ONDANSETRON 4 MG/2 ML VIAL ONE ×3 (02:27→11:50)
[2021-06-05 04:02] LABS: Urine Blood Negative (Negative); Urine Glucose Negative (Negative); Urine Protein Negative (Negative); Urine Specific Gravity 1.025 (1.005-1.030); Urine pH 5.5 (5.0-7.0)
[2021-06-05 04:25] LABS: Urine Appearance Clear (Clear); Urine Bilirubin Negative (Negative); Urine Blood Negative (Negative); Urine Color Yellow (Yellow); Urine Glucose Negative (Negative); Urine Protein Negative (Negative); Urine Urobilinogen 0.2 mg/dL (0.2-1.0); Urine pH 5.5 (5.0-7.0)
[2021-06-05 04:26] LABS: Urine Microscopic Reflex ORDER UMIC
[2021-06-05 04:52] LABS: Urine Bacteria 20-50 /HPF (<20); Urine RBC <5 /HPF (NONE SEEN)
[2021-06-05 05:40] LABS: Absolute Lymphocytes (CBC) 1.1 K/uL (0.7-4.9); Hematocrit 37.2 % (36.0-45.0); MPV 7.5 fL (7.6-11.3)
[2021-06-05] MEDS: MORPHINE 4 MG/ML SYR IV PRN ×4 (05:40→22:13)
[2021-06-05] MEDS: ONDANSETRON 4 MG/2 ML VIAL IV PRN ×4 (05:41→22:13)
[2021-06-05 05:55] LABS: Albumin 3.2 g/dL (3.4-5.0); Bilirubin Total 0.4 mg/dL (0.2-1.0); Phosphorus 3.8 mg/dL (2.5-4.9); Protein, Total 6.9 g/dL (6.4-8.2)
[2021-06-05] MEDS: ENOXAPARIN 40 MG/0.4 ML SQ SCH (09:00)
[2021-06-05] MEDS ORDERED: ENOXAPARIN 40 MG/0.4 ML SQ ONE (09:16)
--- NOTE | 2021-06-05 16:01 | P.PN ---
Subjective Date of Service: 06/05/21 Chief Complaint: SBO Patient states she is already feeling better. She is passing flatus. Abdominal pain is improved. No nausea or vomiting. No BM yet. Physical Examination - Vital Signs Temperature: 97.8 F Blood Pressure: 108/59 Pulse: 58 Respirations: 18 Pulse Ox (%): 96 - Physical Exam General: Alert, In no apparent distress, Oriented x3 HEENT: Mucous membr. moist/pink, Sclerae nonicteric Neck: Supple, JVD not distended Respiratory: Clear to auscultation bilaterally, Normal air movement Cardiovascular: No edema, Regular rate/rhythm, Normal S1 S2, No murmurs Gastrointestinal: Normal bowel sounds, Soft and benign, Non-distended, No tenderness Musculoskeletal: No swelling, No tenderness Integumentary: No rashes, No cyanosis Neurological: Normal strength at 5/5 x4 extr, Cranial nerves 3-12 intact - Studies Laboratory Data (last 24 hrs) 06/04/21 17:00: Sodium 141, Potassium 3.4 L, BUN 21 H, Creatinine 1.35 H, Glucose 100, Total Bilirubin 0.4, AST 9 L, ALT 21, Alkaline Phosphatase 96, Lipase 91 06/04/21 17:00: WBC 11.9 H D, Hgb 13.0, Hct 39.5, Plt Count 372 D Assessment And Plan - Current Problems (Diagnosis) (1) Crohn's disease Current Visit: Yes Status: Chronic Qualifiers: Gastrointestinal tract location: unspecified location Digestive disease complication type: with intestinal obstruction Qualified Code(s): K50.912 - Crohn's disease, unspecified, with intestinal obstruction (2) Hypertension Current Visit: Yes Status: Chronic Qualifiers: Hypertension type: primary hypertension Qualified Code(s): I10 - Essential (primary) hypertension (3) Hypothyroidism Current Visit: Yes Status: Chronic Qualifiers: Hypothyroidism type: acquired Qualified Code(s): E03.9 - Hypothyroidism, unspecified (4) Small bowel obstruction Current Visit: Yes Status: Chronic (5) Prediabetes Current Visit: No Status: Chronic - Plan Patient is clinically improving. Continue supportive measures with IV fluid. IV steroid, IV antibiotics. Serial abdominal examination. GI and general surgery consulted. Clear liquid diet when okay by surgery. Blood sugar readings within normal range. Soft blood pressure. Hold antihypertensives. Monitor and optimize electrolytes especially potassium and magnesium.
[2021-06-05 18:09] VITALS: O2SAT 96
--- NOTE | 2021-06-05 22:53 | CON ---
Date of Consultation: 06/05/2021 Brief History Of Present Illness: The patient is a 65-year-old female, known to me, with a past medical history of hypertension, hypothyroidism, and Crohn disease with recurrent small bowel o bstructions multiple times, particularly isolated to the ileocecal valve, who has been on a new treat ment with Humira with her change management up in [place] without much improvement of her symptoms, who presents with recurrent small bowel obstruction. She has had this multiple times before in the p ast and is familiar with her particular sensations and comes in with similar findings. Past Medical History: As described above, hypertension, diabetes, hypothyroidism, depression, recurr ent small bowel obstruction, GERD, Crohn disease. Past Surgical History: Includes C-sections. Allergies: CIPRO, LATEX, FLAGYL, BUSPAR. Home Medications: Include levothyroxine, Zoloft, bupropion, atorvastatin, metoprolol, pantoprazole, prednisone, and Humira. Social History: She denies smoking, alcohol, recreational drug use from the social history standpoin t. Family History: Significant for lung cancer in the father. Mother had heart disease. Review of Systems: Ten-point review of systems other than HPI denies. Physical Examination: General: She is awake, alert, oriented. Psychiatric: Appropriate and conversive. HEENT: She is normocephalic. Sclerae anicteric. Mucous membranes moist. Oropharynx clear. She canseco s some swelling and erythema of the right eye sclera. Neck: Supple without JVD. Chest: Normal expansion and excursion. Cardiovascular: Regular rate and rhythm. Pulmonary: Clear to auscultation bilaterally. Abdomen: Soft, nontender, nondistended. No rebound. No guarding. No focal peritonitis. Extremities: No clubbing, cyanosis, or edema. Skin: Warm and dry. Laboratory Data: Revealed a white blood cell count of 7.8, hemoglobin 12.3, hematocrit 37.2, platele t count was 346. Sodium 144, potassium 4.0, chloride 109, carbon dioxide 28, BUN 21, creatinine 1.22 , glucose was 140, lactic acid is 1.5 on admission. AST 20, ALT 31, alkaline phosphatase 104, lipase is 91. UA showed 20-50 bacteria, 2+ leukocyte esterase. She had imaging which includes a CT scan o f the abdomen and pelvis, officially read as small bowel obstruction pattern without free air, pneuma tosis, or other surgically emergent findings. The obstruction pattern matches the May 20 study. There are focal bowel and mesentery scarring changes in the right lower abdomen near the ileocecal va lve involving the terminal ileum and loops of mid bowel. Assessment And Plan: This is a 65-year-old woman, who comes in with resolving partial small bowel ob struction, likely due to Crohn's exacerbation. 1.IV fluids. 2.Antibiotic coverage. 3.Pulse steroids. 4.Clear liquid diet and advance slowly as tolerated. 5.The patient should follow up with her change management to discuss the change of her medication t herapy, as she has had multiple recurrent bowel obstructions while attempts at Humira treatments have been ongoing. Thank you for this interesting consult. RODGER/ALIREZA Voice ID: [id number] Report ID: [id number]
[2021-06-06] MEDS: PIPER TAZO 3.375 GM in NA CHLORIDE 0.9% 100 ML IV SCH ×2 (00:35→08:29)
[2021-06-06] MEDS: METHYLPREDNISOLONE 125 MG INJ IV SCH ×3 (00:35→12:38)
[2021-06-06 03:56] LABS: Absolute Lymphocytes (CBC) 1.2 K/uL (0.7-4.9); Hematocrit 33.5 % (36.0-45.0); Lymphocytes % 16.4 % (15.3-44.8); MPV 7.5 fL (7.6-11.3); RBC Red Blood Cell Count 3.69 M/uL (3.86-4.86)
[2021-06-06 04:33] LABS: Albumin 2.9 g/dL (3.4-5.0); Bilirubin Total 0.3 mg/dL (0.2-1.0); Potassium 4.6 mmol/L (3.5-5.1); Protein, Total 6.1 g/dL (6.4-8.2)
[2021-06-06] MEDS: ONDANSETRON 4 MG/2 ML VIAL IV PRN (04:45)
[2021-06-06] MEDS: MORPHINE 4 MG/ML SYR IV PRN ×2 (04:45→10:37)
[2021-06-06] MEDS: NA CHLORIDE 0.9% 1,000 ML IV SCH (06:22)
[2021-06-06] MEDS: ENOXAPARIN 40 MG/0.4 ML SQ SCH (08:29)
[2021-06-06 12:05] VITALS: BP 143/60; TEMP 97.3
--- NOTE | 2021-06-06 14:12 | P.DS ---
Admission Date: 06/04/21 Discharge Date: 06/06/21 Disposition: ROUTINE DISCHARGE Discharge Condition: FAIR Reason for Admission: SBO Consultations: General surgery_Dr. Soriano - Problems (1) Crohn's disease Current Visit: Yes Status: Chronic Qualifiers: Gastrointestinal tract location: unspecified location Digestive disease complication type: with intestinal obstruction Qualified Code(s): K50.912 - Crohn's disease, unspecified, with intestinal obstruction (2) Hypertension Current Visit: Yes Status: Chronic Qualifiers: Hypertension type: primary hypertension Qualified Code(s): I10 - Essential (primary) hypertension (3) Hypothyroidism Current Visit: Yes Status: Chronic Qualifiers: Hypothyroidism type: acquired Qualified Code(s): E03.9 - Hypothyroidism, unspecified (4) Small bowel obstruction Current Visit: Yes Status: Chronic (5) Prediabetes Current Visit: No Status: Chronic Brief History of Present Illness: Patient is a 65-year-old female with past medical history of hypertension, hypothyroidism, Crohn's disease, recurrent small bowel obstructions who presented to the ED with complaints of abdominal pain that began last night. Patient reports the pain is similar to her previous bowel obstructions. She reports having a bowel movement this morning and passing gas throughout the day. She reported some nausea but denied vomiting. She stated that her abdominal pain has been under control since her last discharge. In the ED, labs are significant for white blood cell count of 11.4. CT abdomen pelvis "Small bowel obstruction pattern without free air, pneumatosis or other surgically emergent finding. The obstruction pattern matches the May 20 study. There are focal bowel and mesenteric scarring changes in the lower right abdomen near the ileocecal valve involving the terminal ileum and loops of mid small bowel." GI and general surgery both notified. Patient admitted for further management. Hospital Course: Patient admitted to the medical floor and started on supportive measures with IV fluid. Seen by general surgery and medical management recommended. Patient treated with IV antibiotic, initially kept n.p.o.. Her symptoms improved, had flatus. She later tolerated diet advancement to soft consistency. No abdominal distention. Abdominal pain significantly improved. Patient deemed stable for discharge per general surgery. She is prescribed a tapering dose of prednisone and antibiotics. Vital Signs/Physical Exam: Temp Pulse Resp BP Pulse Ox 97.3 F 62 18 143/60 H 98 06/06/21 12:00 06/06/21 12:00 06/06/21 12:00 06/06/21 12:00 06/06/21 12:00 General: Alert, In no apparent distress, Oriented x3 HEENT: Mucous membr. moist/pink Neck: JVD not distended Respiratory: Clear to auscultation bilaterally, Normal air movement Cardiovascular: No edema, Regular rate/rhythm, Normal S1 S2 Gastrointestinal: Soft and benign, Non-distended, No tenderness Musculoskeletal: No swelling Integumentary: No rashes Neurological: Normal strength at 5/5 x4 extr Laboratory Data at Discharge: WBC 7.4 K/uL (4.3-10.9) 06/06/21 03:32 Hgb 11.0 g/dL (12.0-15.0) L 06/06/21 03:32 Hct 33.5 % (36.0-45.0) L 06/06/21 03:32 Plt Count 288 K/uL (152-406) 06/06/21 03:32 Sodium 144 mmol/L (136-145) 06/06/21 03:32 Potassium 4.6 mmol/L (3.5-5.1) 06/06/21 03:32 BUN 14 mg/dL (7-18) 06/06/21 03:32 Creatinine 0.87 mg/dL (0.55-1.3) 06/06/21 03:32 Glucose 144 mg/dL (74-106) H 06/06/21 03:32 Phosphorus 3.8 mg/dL (2.5-4.9) 06/05/21 05:15 Magnesium 1.9 mg/dL (1.8-2.4) 06/05/21 17:47 Total Bilirubin 0.3 mg/dL (0.2-1.0) 06/06/21 03:32 AST 10 U/L (15-37) L 06/06/21 03:32 ALT 22 U/L (12-78) 06/06/21 03:32 Alkaline Phosphatase 76 U/L (45-117) 06/06/21 03:32 Lipase 91 U/L (73-393) 06/04/21 17:00 Home Medications: Levothyroxine Sodium 25 mcg PO DAILY 07/27/20 Sertraline [Zoloft*] 200 mg PO BEDTIME 07/27/20 buPROPion HCL [Bupropion HCl] 150 mg PO BID 12/10/20 Ondansetron [Zofran (Odt)*] 4 mg PO Q6H PRN #10 tab 03/08/21 Atorvastatin Calcium 10 mg PO DAILY 04/05/21 Metoprolol Succinate [Toprol Xl*] 50 mg PO BID 04/05/21 predniSONE [Deltasone*] 10 mg PO DAILY #30 tab 05/22/21 Acetaminophen 160 mg PO Q4H PRN 06/05/21 Cetirizine HCl [Zyrtec] 1 tab PO DAILY 06/05/21 Hyoscyamine Sulfate [Levsin TAB*] 0.125 tab PO Q4H 06/05/21 Lisinopril [Zestril] 5 mg PO DAILY 06/05/21 Pantoprazole Sodium [Protonix] 1 tab PO DAILY 06/05/21 Amox/Clavulanate [Augmentin 875-125 Tab] 1 each PO BID #10 tab 06/06/21 Hydrocodone 5/APAP 325 [[place] 5/325] 1 tab PO Q6H PRN #20 tab 06/06/21 predniSONE [Deltasone*] 10 mg PO DAILY #45 tab 06/06/21 New Medications: Amox/Clavulanate [Augmentin 875-125 Tab] 1 each PO BID #10 tab predniSONE [Deltasone*] 10 mg PO DAILY #45 tab Hydrocodone 5/APAP 325 [[place] 5/325] 1 tab PO Q6H PRN #20 tab PRN Reason: Pain Diet: AHA (Progress from soft diet and advance as tolerated) Activity: Ad jaylen Followup: Moriah Vasquez NP [Primary Care Provider] - Time spent managing pt's care (in minutes): 35
== END 2021-06-06 14:29 | disposition home or self-care (01) | DRG 387 ==
LOC: ER 15:18 → ERHOLD 19:59 → 4TH 06-05 13:14
PROVIDERS: ADMIT Internal Medicine; ATTEND Internal Medicine
DX: K50.012 Crohn's disease of small intestine with intestinal obstruction (principal); I10 Essential (primary) hypertension; E03.9 Hypothyroidism, unspecified; R73.03 Prediabetes; F32.A Depression, unspecified; K21.9 Gastro-esophageal reflux disease without esophagitis; N30.90 Cystitis, unspecified without hematuria; B96.1 Klebsiella pneumoniae [K. pneumoniae] as the cause of diseases classified elsewhere; Z82.49 Family history of ischemic heart disease and other diseases of the circulatory system; Z80.1 Family history of malignant neoplasm of trachea, bronchus and lung; Z20.822 Contact with and (suspected) exposure to COVID-19; Z91.040 Latex allergy status
CPT/HCPCS: 36415; 74177; 80053; 81003; 81015; 82947; 83605; 83690; 83735; 84100; 85025; 87077; 87086; 87088; 87186; 96365; 96366; 96375; 99284; J1650; J2405; J2543; J2930; J7030; Q9967; U0003

== ENCOUNTER 2021-06-19 18:40 | Inpatient (IN) | payer BC, OTHER ==
--- OUTSIDE RECORDS SUMMARY | 2021-06-19 18:43 | XMS REPORT | Continuity of Care Document ---
:1955 Author Organization [facility] t Address [address] [place] [address] Care Team Providers Name Role Phone Kael MEADOWS MD, A Primary Care Physician JENKINS Attending Clinician Unavailable NILDA PEREZ Attending Clinician Unavailable CASEY Attending Clinician Unavailable Karin PARSONS Attending Clinician Ca VANN Attending Clinician Unavailable LUIS FELIPE Attending Clinician Unavailable KARIN Attending Clinician Unavailable Kaci PARSONS, R. Attending Clinician Yadira MURPHY Attending Clinician Unavailable CASEY Admitting Clinician Unavailable Ca VANN Admitting Clinician Unavailable Payers Payer Name Policy Type Policy Number Effective Date Expiration Date S ource PPO/EPO - BCBS [id number] BCBS PPO POS EPO [id number] 2010 00:00:00 CHOICE Problems Condition Condition Condition Status Onset Resolution Last Treating Co mments Source Name Details Category Date Date Treatment Clinician Date Crohn's Crohn's Disease Active 2020-02 [facility] disease disease 2-22 [place] (HCCode) (HCCode) 00:00: of 00 Medicin e Essential Essential Disease Active Met hodi hypertensi hypertensi 8-13 [facility] on on 00:00: Hospita 00 l Chest pain Chest pain Disease Active M ethodi 2-02 st 00:00: Hospita 00 l 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:00: Hospita 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 [...] 00 Center Latex Propensi Active Rash 2020-02 [facility] ty to 2-10 College adverse 00:00: of reaction 00 Medicin s to e substanc e Latex, Propensi Active Itching Methodi Natural ty to st Rubber adverse Hospita reaction l s to drug NO KNOWN Allergy Active [facility] ALLERGIE S Family History Family Member Diagnosis Comments Start Date Stop Date Source Natural father [facility] Natural mother Heart disease [facility] Social History Social Habit Start Date Stop Date Quantity Comments Source Exposure to Not sure [facility] of SARS-CoV-2 Medicine (event) History [facility] Alcohol Std Hospital Drinks History [facility] Tobacco use and 2021-01-25 2021-01-25 Smokeless tobacco [facility] of exposure 00:00:00 00:00:00 non-user Medicine History SDOH 2018-03-19 2018-03-19 1 [facility] Alcohol Frequency 00:00:00 00:00:00 Hospita l Alcohol intake 2018-03-19 2018-03-19 Current [facility] 00:00:00 00:00:00 non-drinker of Hospital alcohol (finding) Sex Ass[birth year] F [facility] Co llege of 00:00:00 00:00:00 Medicine Smoking Status Start Date Stop Date Source Never smoked tobacco [facility] Eric ege of Medicine Former smoker 2018-03-19 00:00:00 2018-03-19 00:00:00 [facility] Medications Ordered Filled Start Stop Current Ordering Indication Dosage Frequency Signature Comments Components Source Medication Medication Date Date Medication? Clinician (SIG) Name Name MINERAL OIL 2021- No Take by B ayl[facility] OR 03-29 mouth. College 12:06: 00:00 [...] Lactobacill 0 2021- No Take by Kamala albrecht us 2-11 02-11 mouth. [place] (ACIDOPHILU 12:03: 00:00 of S OR) 05 :00 Medicin e Cholecalcif Yes Take by Sixto lior alex 2-11 mouth. [place] (VITAMIN D) 11:46: of 125 MCG 58 Medicin (5000 UT) e CAPS Cholecalcif Yes Take by Sixto lior alex 2-11 mouth. [place] (VITAMIN D) 11:46: of 125 MCG 58 Medicin (5000 UT) e CAPS atorvastati Yes 10mg Take 10 mg [facility] n (LIPITOR) 2-11 by mouth Eric ege 10 MG 11:46: daily. of tablet 58 Medicin e Cetirizine Yes Take 1 Baylo r HCl (ZYRTEC 2-11 Chew Tab Eric ege ALLERGY) 10 11:46: by mouth of MG CAPS 58 daily. Medicin e hyoscyamine Yes .125mg Take 0.125 Ran (LEVSIN) 2-11 mg by [place] 0.125 MG 11:46: mouth of tablet 58 [...] renea SUSP hours prn e predniSONE Yes [id number] 20mg Take 1 [facility] (DELTASONE) 2-11 Tablet by Col lege 20 MG 00:00: mouth of tablet 00 daily. Medicin Taper by 5 e mg every week. MINERAL OIL 2020-02 Yes Take by Sixto adams OR 2-10 mouth. College 09:20: of 34 Medicin e Cholecalcif 2020-02 Yes Take by Sixto lior alex 2-10 mouth. [place] (VITAMIN D) 09:20: of 125 MCG 34 Medicin (5000 UT) e CAPS ferrous 2020-02 Yes 325mg Take 325 Baylo r sulfate 2-10 mg by [place] (FEROSUL) 09:19: mouth of 325 (65 Fe) 41 daily. Medici n MG tablet e Mesalamine 2020-02 Yes Take by [facility] (PENTASA) 2-10 mouth. [place] 500 MG CPCR 09:19: of 41 Medicin e predniSONE 2020-02 Yes [facility] (DELTASONE) 03-13 College 20 MG 00:00: of tablet 00 Medicin e predniSONE 2020-02- No 20mg Take 20 mg [facility] (DELTASONE) 03-13 by mouth Col lege 20 [...] 40 mg Ran e 02-27 by mouth [place] (PROTONIX) 00:00: daily. of 40 MG 00 Medicin tablet e pantoprazol 2020-02- No 40mg Take 40 mg [facility] e 02-27 by mouth [place] (PROTONIX) 00:00: 00:00 daily. of 40 MG 00 :00 Medicin tablet e pantoprazol 2020-02- No 40mg Take 40 mg Ran e 02-27 by mouth [place] (PROTONIX) 00:00: 00:00 daily. of 40 MG 00 :00 Medicin tablet e lisinopril 2020-02 Yes 1 po daily [facility] (PRINIVIL, 02-23 in [facility]) 5 00:00: morning of MG tablet 00 Medicin e lisinopril 2020-02 Yes 1 po daily [facility] (PRINIVIL, 02-23 in [facility]) 5 00:00: morning of MG tablet 00 Medicin e lisinopril 2020-02 Yes 1 po daily [facility] (PRINIVIL, 02-23 in [facility]) 5 00:00: morning of MG tablet 00 Medicin e sertraline 2020-02 Yes [facility] (ZOLOFT) 02-17 [place] 100 MG 00:00: of tablet 00 Medicin e buPROPion 2020-02 Yes TAKE 2 [facility] (WELLBUTRIN 1-02 TABLETS BY Co llege ) 75 MG 00:00: MOUTH of tablet 00 EVERY Medicin MORNING e AND 1 TABLET BY MOUTH EVERY EVENING sertraline 2020-02 Yes [facility] (ZOLOFT) 1 [place] 100 MG 00:00: of tablet 00 Medicin e buPROPion 2020-02 Yes TAKE 2 [facility] (WELLBUTRIN 1-02 TABLETS BY Co llege ) 75 MG 00:00: MOUTH of tablet 00 EVERY Medicin MORNING e AND 1 TABLET BY MOUTH EVERY EVENING sertraline 2020-02 Yes [facility] (ZOLOFT) 02-17 [place] 100 MG 00:00: of tablet 00 Medicin e buPROPion 2020-02 Yes TAKE 2 [facility] (WELLBUTRIN 1-02 TABLETS BY Co llege ) 75 MG 00:00: MOUTH of tablet 00 EVERY Medicin MORNING e AND 1 TABLET BY MOUTH EVERY EVENING Adalimumab 2020-02 Yes [facility] (HUMIRA 0-25 [place] PEN) 40 00:00: of MG/0.8ML 00 Medicin injection e Adalimumab 2020-02 No [facility] (HUMIRA 0-25 -14 [place] PEN) 40 00:00: 00:00 of MG/0.8ML 00 :00 Medicin injection e levothyroxi Yes levothyrox [facility] 8- ine 25 mcg [place] (SYNTHROID) 00:00: tablet of 25 MCG 00 TAKE 1 Medicin tablet TABLET BY e MOUTH DAILY IN THE MORNING WITH JUST A SIP OF WATER. WAIT 30 MINUTES BEFORE EATING OR DRINKING ANYTHING levothyroxi Yes levothyrox [facility] 09-17 ine 25 mcg [place] (SYNTHROID) 00:00: tablet of 25 MCG 00 TAKE 1 Medicin tablet TABLET BY e MOUTH DAILY IN THE MORNING WITH JUST A SIP OF WATER. WAIT 30 MINUTES BEFORE EATING OR DRINKING ANYTHING levothyroxi Yes levothyrox [facility] 09-17 ine 25 mcg [place] (SYNTHROID) 00:00: tablet of 25 MCG 00 TAKE 1 Medicin tablet TABLET BY e MOUTH DAILY IN THE MORNING WITH JUST A SIP OF WATER. WAIT 30 MINUTES BEFORE EATING OR DRINKING ANYTHING lisinopriL- Yes [id number] 1{tbl} QD TAKE 1 [facility] hydrochloro 7-[address] thiazide 00:00: MOUTH Hospita (PRINZIDE) 00 DAILY l 10-12.5 mg per tablet metoprolol 0 Yes [id number] TAKE 1 Me thodi tartrate 7-29 TABLET(50 st (LOPRESSOR) 00:00: MG) BY Hosp mich 50 mg 00 MOUTH l tablet TWICE DAILY metoprolol 0 2020- No [id number] TAKE 1 M ethodi tartrate 4-26 07-29 TABLET(50 st (LOPRESSOR) 00:00: 00:00 MG) BY Hos alba 50 mg 00 :00 MOUTH l tablet TWICE DAILY lisinopriL- 2020-0 2020- No [id number] 1{tbl} QD TAKE 1 [facility] hydrochloro 4-26 07-[address] thiazide 00:00: 00:00 MOUTH Hospita (PRINZIDE) 00 :00 DAILY l 10-12.5 mg per tablet lisinopriL- 2020-0 2020- No [id number] 1{tbl} QD Take 1 [facility] hydrochloro 1-25 04-[address] thiazide 00:00: 00:00 mouth Hospita (PRINZIDE) 00 :00 daily. l 10-12.5 mg per tablet metoprolol 2020-0 2020- No [id number] 50mg Q.5D Take 1 M ethodi tartrate 1-25 04-26 tablet (50 st (LOPRESSOR) 00:00: 00:00 mg total) Hospita 50 mg 00 :00 by mouth 2 l tablet (two) times a day. lisinopril- 2020- No [id number] 1{tbl} QD TAKE 1 [facility] hydrochloro 03-[address] thiazide 00:00: 00:00 MOUTH Hospita (PRINZIDE) 00 :00 DAILY l 10-12.5 mg per tablet metoprolol 2020- No [id number] TAKE 1 M ethodi tartrate 03-17 TABLET(50 [...] st MG tablet 16:39: daily as Hosp mcih 47 needed for l allergies. mvit,calc,m Yes Take by Met brianne in-folic 8-[address] [id number] 16:39: Hospita 200 mcg 47 l tablet [...] kg Body weight 2021-03-29 17:28:00 110.678 kg [facility] BMI 2021-03-29 17:28:00 46.10 kg/m2 [facility] Systolic blood 2021-03-29 17:28:00 143 mm[Hg] [facility] pressure Medicine Diastolic blood 2021-03-29 17:28:00 82 mm[Hg] [facility] pressure Medicine Heart rate 2021-03-29 17:28:00 60 /min [facility] Body temperature 2021-03-29 17:28:00 36.22 Nadiya [facility] Respiratory rate 2021-03-29 17:28:00 16 /min [facility] Body height 2021-03-29 17:28:00 [facility] Body height 2021-03-01 15:04:00 154.9 cm [facility] Body weight 2021-03-01 15:04:00 107.593 kg [facility] BMI 2021-03-01 15:04:00 44.82 [facility] HEIGHT 2021-02-03 05:20:00 154.9 cm WEIGHT 2021-02-03 05:20:00 106.505 kg HEIGHT 2021-02-03 05:20:00 154.9 cm WEIGHT 2021-02-03 05:20:00 106.505 kg Systolic blood 2021-01-25 15:06:00 122 mm[Hg] [facility] pressure Medicine Diastolic blood 2021-01-25 15:06:00 80 mm[Hg] [facility] Medicine Heart rate 2021-01-25 15:06:00 81 /min [facility] Body temperature 2021-01-25 15:06:00 36.28 Nadiya [facility] Respiratory rate 2021-01-25 15:06:00 14 /min [facility] Body height 2021-01-25 15:06:00 154.9 cm [facility] Body weight 2021-01-25 15:06:00 106.142 kg [facility] BMI 2021-01-25 15:06:00 44.21 kg/m2 [facility] Procedures This patient has no known procedures. Plan of Care Planned Activity Planned Date Details Comments Source Future Scheduled 2021-04-04 Screening for malignant [facility] Test 13:40:02 neoplasm of colon Medicine (procedure) [code = 006105917] Future Scheduled 2021-04-04 Screening for malignant [facility] Test 13:40:02 neoplasm of breast Medicine (procedure) [code = 416881209] Future Scheduled 2021-04-04 TETANUS SHOT (ADULT) [facility] Test 13:40:02 [code = TETANUS SHOT Medicin e (ADULT)] Future Scheduled 2021-04-04 BMI FOLLOW UP PLAN [code [facility] Test 13:40:02 = BMI FOLLOW UP PLAN] Medici ne Future Scheduled 2021-04-04 Hepatitis C screening [facility] Test 13:40:02 (procedure) [code = Medicine 455353561] Future Scheduled 2021-04-04 Human immunodeficiency B [facility] Test 13:40:02 virus screening Medicine (procedure) [code = 826910449] Future Scheduled 2021-04-04 Screening for malignant [facility] Test 13:40:02 neoplasm of cervix Medicine (procedure) [code = 619107079] Future Scheduled 2021-04-04 ZOSTER VACCINE (1 of 2) [facility] Test 13:40:02 [code = ZOSTER VACCINE (1 Me dicine of 2)] Future Scheduled 2021-04-04 FLU VACCINE > 6 MONTHS B [facility] of Test 13:40:02 [code = FLU VACCINE > 6 Medi cine MONTHS] Future Scheduled 2021-04-04 COVID-19 Vaccine (2 - Ba [facility] of Test 13:40:02 Pfizer 3-dose series) Medici ne [code = COVID-19 Vaccine (2 - Pfizer 3-dose series)] Future Scheduled 2021-04-04 Screening for malignant [facility] of Test 13:40:02 neoplasm of colon Medicine (procedure) [code = 920672098] Future Scheduled 2021-04-04 Screening for malignant [facility] of Test 13:40:02 neoplasm of breast Medicine (procedure) [code = 858888442] Future Scheduled 2021-04-04 TETANUS SHOT (ADULT) [facility] of Test 13:40:02 [code = TETANUS SHOT Medicin e (ADULT)] Future Scheduled 2021-04-04 BMI FOLLOW UP PLAN [code [facility] of Test 13:40:02 = BMI FOLLOW UP PLAN] Medici ne Future Scheduled 2021-04-04 Hepatitis C screening [facility] of Test 13:40:02 (procedure) [code = Medicine 886203627] Future Scheduled 2021-04-04 Human immunodeficiency B [facility] of Test 13:40:02 virus screening Medicine (procedure) [code = 931200007] Future Scheduled 2021-04-04 Screening for malignant [facility] of Test 13:40:02 neoplasm of cervix Medicine (procedure) [code = 903121477] Future Scheduled 2021-04-04 ZOSTER VACCINE (1 of 2) [facility] of Test 13:40:02 [code = ZOSTER VACCINE (1 Me dicine of 2)] Future Scheduled 2021-04-04 FLU VACCINE > 6 MONTHS B [facility] of Test 13:40:02 [code = FLU VACCINE > 6 Medi cine MONTHS] Future Scheduled 2021-04-04 COVID-19 Vaccine (2 - Ba [facility] of Test 13:40:02 Pfizer 3-dose series) Medici ne [code = COVID-19 Vaccine (2 - Pfizer 3-dose series)] Future Scheduled 2021-01-25 Screening for malignant [facility] of Test 09:15:59 neoplasm of colon Medicine (procedure) [code = 462962746] Future Scheduled 2021-01-25 Screening for malignant [facility] 09:15:59 neoplasm of breast Medicine (procedure) [code = 111167900] Future Scheduled 2021-01-25 TETANUS SHOT (ADULT) [facility] Test 09:15:59 [code = TETANUS SHOT Medicin e (ADULT)] Future Scheduled 2021-01-25 Hepatitis C screening [facility] 09:15:59 (procedure) [code = Medicine 122664205] Future Scheduled 2021-01-25 Human immunodeficiency B [facility] 09:15:59 virus screening Medicine (procedure) [code = 952256024] Future Scheduled 2021-01-25 Screening for malignant [facility] Test 09:15:59 neoplasm of cervix Medicine (procedure) [code = 382265263] Future Scheduled 2021-01-25 ZOSTER VACCINE (1 of 2) [facility] 09:15:59 [code = ZOSTER VACCINE (1 Me dicine of 2)] Future Scheduled 2021-01-25 FLU VACCINE > 6 MONTHS B [facility] 09:15:59 [code = FLU VACCINE > 6 Medi cine MONTHS] Future Scheduled 2021-01-25 COVID-19 Vaccine (2 - [facility] 09:15:59 Pfizer 2-dose series) Medici ne [code = COVID-19 Vaccine (2 - Pfizer 2-dose series)] Future Scheduled COVID-19 VACCINE (1) [facility] Test [code = COVID-19 VACCINE Hos pital (1)] Future Scheduled Hepatitis C screening [facility] Test (procedure) [code = Hospital 445589392] Future Scheduled Screening for malignant [facility] Test neoplasm of cervix Hospital (procedure) [code = 909307980] Future Scheduled BREAST CANCER SCREENING [facility] Test [code = BREAST CANCER Hospit al SCREENING] Future Scheduled COLONOSCOPY SCREENING [facility] Test [code = COLONOSCOPY Hospital SCREENING] Future Scheduled SHINGLES VACCINES (#1) M ethodist Test [code = SHINGLES VACCINES Ho spital (#1)] Future Scheduled INFLUENZA VACCINE [code = [facility] Test INFLUENZA VACCINE] Hospital Encounters Start End Encounter Admission Attending Care Care Encounter Source Date/Time Date/Time Type Type Clinicians Facility Department ID 2021-06-11 2021-06-11 Outpatient JENKINS, MARCO BCM BC [id number] [facility] 14:50:55 15:38:46 Colleg e of Medicin e 2021-05-20 2021-05-20 Outpatient [facility] [id number] [facility] 08:32:32 23:59:00 Colleg e of Medicin e 2021-05-17 2021-05-19 [id number] 05:35:00 16:42:00 AHMED 2021-05-17 2021-05-17 [id number] [facility] 00:00:00 23:59:00 Colleg e of Medicin e 2021-04-22 2021-04-22 Outpatient [facility] [id number] [facility] 08:34:02 23:59:00 Colleg e of Medicin e 2021-04-08 2021-04-08 Outpatient [facility] [id number] [facility] 08:22:34 23:59:00 Colleg e of Medicin e 2021-03-29 2021-03-29 Office Frazier, [facility] [id number] [facility] 11:00:00 13:34:50 Visit Manreet AMBULATOR 350.1.13.21 College Y 0.2.7.2.686 of [id number] Medi renea 325 e 2021-03-01 2021-03-01 Office Frazier, [facility] [id number] [facility] 09:00:00 11:07:59 Visit Manreet AMBULATOR 350.1.13.21 College Y 0.2.7.2.686 of [id number] Medi renea 325 e 2021-02-03 2021-02-06 Inpatient ER [facility] Med [id number] [facility] 05:14:00 16:07:00 LIYA-JAMAL 2021-01-25 2021-01-25 Office FRAZIER, [facility] [id number] [facility] 00:00:00 19:54:04 Visit MANREET AMBULATOR 350.1.13.21 College Y 0.2.7.2.686 of [id number] Medi renea 325 e 2020-09-12 2020-09-12 Refill Kaci, 1.2.840.1 [id number] [facility]i 00:00:00 00:00:00 Ace R. [address].1.[address] 3.430.2.7 Hospit a .3.976551 l .8 2020-06-11 2020-06-11 Refill Kaci, 1.2.840.1 [id number] [facility] 00:00:00 00:00:00 Ace R. [address]177.1.[address] 3.430.2.7 Hospit a .3.102834 l .8 2020-03-12 2020-03-12 Orders Le, Javier 1.2.840.1 [id number] [facility]i 00:00:00 00:00:[address] 3.430.2.7 Hospit a .3.462149 l .8 Results Test Description Test Time [...] NOT 1092) ACCURATE CRE ATININE CLEARANCE IN TN EDICTING GLOMERULAR FILT RATION RATE. ESTIMATED GFR IS NOT APPLICABLE FOR DIALYSIS PATIENTS. Television Mechanic AMADA - KARMEN LLACTIC ACID, [id number] 05:11:20 Test Item Value Reference Range Interpretation Comments LACTATE BLOOD VENOUS (2) (BEAKER) 2.49 mmol/L 0.50-2.20 H (test code = 2872) Television Mechanic ID - DBCBC W/PLT COUNT & AUTO [id number] 05:00:57 Test Item Value Reference Range Interpretation [...] 0-1 PERCENT (BEAKER) (test code = 2801) [id number] 06:40:18 Test Item Value Reference Range Interpretation Comments PHOSPHORUS (BEAKER) 3.3 mg/dL 2.3-4.7 Specimen slightly (test code = 604) hemolyzed Television Mechanic ID - DBBASIC METABOLIC [id number] 06:40:18 Test Item Value Reference Range Interpretation [...] S NOT APPLICABLE FOR DIALYSIS PATIEN TS. Television Mechanic ID - [id number] 06:40:17 Test Item Value Reference Range Interpretation Comments MAGNESIUM (BEAKER) 1.9 mg/dL 1.6-2.6 Specimen slightly (test code = 627) hemolyzed Television Mechanic ID - DBCBC (HEMOGRAM ONLY)2021-05-18 05:39:35 Test [...] 0-0 (BEAKER) (test code = 413) SARS-COV2/RT-PCR ([facility])2021-05-17 14:30:52 Test Item Value Reference Range Interpretation Comments SARS-COV2/RT-PCR (test Negative Not Detected, Negative, code = 2545625) See external report for linked test SARS-COV-2 PERFORMING LAB [facility] (test code = 6457645) Negative result for this test determines that [...] 564(g) of the Act.Fact Sheet for Healthcare Providers:https://www.[employer]/sites/default/files/product/documents/Fact_Shee w_HH_Qyodljizg_Cfhj_NYTO-PiT-1.pdfFact Sheet for Healthcare Patients:https://www.[employer]/sites/default/files/product/ documents/Xwvw_Cfezk_Qqpfitak_Bksb_SWMU-BmZ-8.pdfPerforming Laboratory:[facility], [place] [address]BEL, CHEST, 1 VIEW, NON [id number] 11:04:00Reason for exam:->new admission with possible entero-enteric fistulaShould this be performed at the bedside?->Yes [facility] 1955 Sex: [...] Becerril Verified Date/Time: 05/17/2021 11:04:57 Reading Location: [facility] Radiology Reading Room RAD, ABDOMEN/KUB, 1 VIEW [id number] 10:21:00Reason for exam:->concern for small bowel obstructionShould this be performed at the bedside?->Yes [facility] 1955 Sex: [...] partial small bowel obstruction. Signed: John Becerril MDRepopal Verified Date/Time: 05/17/2021 10:21:20 Reading Location: [facility] Radiology Reading Room [id number] 09:42:25 Test Item Value Reference Range Interpretation Comments PHOSPHORUS (BEAKER) (test code = 2.6 mg/dL 2.3-4.7 604) Television Mechanic ID - DBBASIC METABOLIC [id number] 09:42:24 Test Item Value Reference Range Interpretation [...] S NOT APPLICABLE FOR DIALYSIS PATIEN TS. Television Mechanic ID - [id number] 09:42:24 Test Item Value Reference Range Interpretation Comments MAGNESIUM (BEAKER) (test code = 1.9 mg/dL 1.6-2.6 627) Television Mechanic ID - DBPROTHROMBIN [id number] 09:28:59 Test Item Value Reference Range Interpretation Comments PROTIME (BEAKER) 12.9 seconds 11.9-14.2 (test code = 759) INR (BEAKER) (test 0.99 See_Comment [Automat ed message] code = 370) The system [employer] generated this result transmitted ref erence range: [...] (BEAKER) (test code = 413) HEPATITIS B [id number] 20:49:20 Test Item Value Reference Range Interpretation Comments HEPATITIS B CORE TOTAL ANTIBODY Nonreactive Nonreactive (BEAKER) (test code = 497) HEPATITIS B SURFACE ANTIBODY < mIU/mL <8.0 (BEAKER) (test code = 647) HEPATITIS B SURFACE ANTIGEN (2) Nonreactive Nonreactive (BEAKER) (test code = 2585) Television Mechanic ID - BSOperator ID - BSVITAMIN D, [id number] 18:58:29 Test Item Value Reference Range Interpretation Comments VITAMIN D 25-OH (BEAKER) (test 48.0 ng/mL 6.6-49.9 code = 2764) Effective 11/26/2016: Reference Range ChangeNew: 6.6-49.9 ng/mL Previous: 13.0-47.8 ng/mLRecommended Vitamin D Target Range: 30.0-40.0 ng/mLOperator ID - BS. DIFFICILE GDH [id number] 13:19:34 Test Item Value Reference Range Interpretation Comments CDT TOXIN (test code Negative Negative = 9064813773) CDT GDH ANTIGEN (test Negative Negative No ind ication of code = 7920975257) Clostridi um difficile infection and n o colonization. Discontinue ent randy isolation and t herapy. Testing performed by [employer] Rapid Cassette Assay. For GDH, published sensitivity of the assay is 98.7% compared to cytotoxicity testing. For Toxin AB, published sensitivity is 87.8% and specificity 99.4% compared to cytotoxicity testing.Verification of kit performance was done by the [facility] Microbiology Lab prior to clinical use.BASIC METABOLIC [id number] 05:52:32 Test Item Value Reference Range Interpretation [...] S NOT APPLICABLE FOR DIALYSIS PATIEN TS. Television Mechanic ID - PIAYA LCBC (HEMOGRAM ONLY)2021-02-06 05:38:48 [...] (BEAKER) (test code = 413) BASIC METABOLIC [id number] 05:38:29 Test Item Value Reference Range Interpretation [...] S NOT APPLICABLE FOR DIALYSIS PATIEN TS. Television Mechanic ID - DEANNA MC-REACTIVE [id number] 05:38:29 Test Item Value Reference Range Interpretation Comments C-REACTIVE PROTEIN (BEAKER) (test 3.86 mg/dL 0.00-0.50 H code = 676) Television Mechanic ID - DEANNA MCBC (HEMOGRAM ONLY)2021-02-05 05:28:27 [...] 0-0 (BEAKER) (test code = 413) CT, [id number] 16:56:00Unlisted Reason for Exam - Click Yes and Enter Reason Below->NoIs this for enterography?->NoWill this procedure require oral contrast?->No [facility] 1955 Sex: [...] MDReport Verified Date/Time: 02/04/2021 16:56:27 Reading Location: [facility] Diagnostic Imaging Reading Room - [place] [address] VITAMIN B12 AND [id number] 07:14:11 Test Item Value Reference Range Interpretation Comments VITAMIN B12 187 pg/mL 213-816 L (BEAKER) (test code = 774) FOLATE (BEAKER) 18.90 ng/mL See_Comment [Automated message] (test code = 362) The system which generated this result transmitted ref erence range: >=7.00. The reference range was not used to interpr et this result as normal/abnormal . Television Mechanic ID - LIDA [id number] 07:14:10 Test Item Value Reference Range Interpretation Comments FERRITIN (BEAKER) (test code = 110.79 ng/mL 5.00-275.00 361) Television Mechanic ID - LIDA FIRON, TIBC, % SAT. (WITHOUT FERRITIN)2021-02-04 06:55:40 Test Item Value Reference Range Interpretation Comments IRON (BEAKER) (test code = 547) 75.0 ug/dL 40.0-160.0 TOTAL IRON BINDING CAPACITY 258 ug/dL 250-450 (BEAKER) (test code = 769) IRON % SATURATION (2) (BEAKER) 29 % 20-55 (test code = 2590) Television Mechanic ID - LIDA FHEPATIC FUNCTION [id number] 16:57:11 Test Item Value Reference Range Interpretation [...] Specimen slightly (test code = 347) hemolyzed Television Mechanic ID - PIAYA LHEMOGLOBIN [id number] 12:28:44 Test Item Value Reference Range Interpretation Comments HEMOGLOBIN A1C (BEAKER) (test code = 5.3 % 4.3-6.1 368) [id number] 09:47:42 Test Item Value Reference Range Interpretation Comments PHOSPHORUS (BEAKER) 3.5 mg/dL 2.3-4.7 Specimen slightly (test code = 604) hemolyzed Television Mechanic ID - PIAYA LBASIC METABOLIC [id number] 09:47:42 Test Item Value Reference Range Interpretation [...] S NOT APPLICABLE FOR DIALYSIS PATIEN TS. Television Mechanic ID - PIAYA [id number] 09:47:41 Test Item Value Reference Range Interpretation Comments MAGNESIUM (BEAKER) 2.2 mg/dL 1.6-2.6 Specimen slightly (test code = 627) hemolyzed Television Mechanic ID - PIAYA LC-REACTIVE [id number] 09:45:23 Test Item Value Reference Range Interpretation Comments C-REACTIVE PROTEIN (BEAKER) (test 3.67 mg/dL 0.00-0.50 H code = 676) Television Mechanic AMADA PERAZA LCBC W/PLT COUNT & AUTO [id number] 09:23:38 Test Item Value Reference Range Interpretation [...] code = 2801) RAD, ABDOMEN/KUB, 1 VIEW [id number] 07:28:00Reason for exam:->NGT tube placementShould this be performed at the bedside?->Yes [facility] 1955 Sex: FFINAL REPORT RAD, ABDOMEN/KUB, 1 VIEW AP INDICATION: NGT tube placementCOMPARISON: None TECHNIQUE: Limited portable radiograph of the lower chest and upper abdomen was acquired for purposes of evaluating tube placement FINDINGS/IMPRESSION:NG side-port overlies the stomach Signed: Rory Quiroga Verified Date/Time: 02/03/2021 07:28:00
[2021-06-19] MEDS ORDERED: MORPHINE 4 MG/ML SYR ONE ×2 (19:51→21:43)
[2021-06-19] MEDS ORDERED: ONDANSETRON 4 MG/2 ML VIAL ONE (19:52)
[2021-06-19] MEDS ORDERED: FAMOTIDINE 20 MG/2 ML VIAL IV ONE (19:52)
[2021-06-19 19:57] LABS: Urine Blood Negative (Negative); Urine Glucose Negative (Negative); Urine Protein Negative (Negative); Urine Specific Gravity 1.015 (1.005-1.030)
[2021-06-19 19:59] LABS: Absolute Lymphocytes (CBC) 2.3 K/uL (0.7-4.9); Hematocrit 38.4 % (36.0-45.0); Lymphocytes % 17.9 % (15.3-44.8); MPV 7.3 fL (7.6-11.3); RBC Red Blood Cell Count 4.24 M/uL (3.86-4.86)
[2021-06-19 20:13] LABS: Urine Bacteria <20 /HPF (<20); Urine RBC <5 /HPF (NONE SEEN)
[2021-06-19 20:15] LABS: Albumin 3.4 g/dL (3.4-5.0); Bilirubin Total 0.4 mg/dL (0.2-1.0); Protein, Total 6.4 g/dL (6.4-8.2)
--- NOTE | 2021-06-19 21:12 | RAD REPORT ---
EXAM DESCRIPTION: RAD - Abdomen Acute Series - 06/19/2021 9:04 pm CLINICAL HISTORY: ABD PAIN COMPARISON: Abdomen 1 View (KUB) dated 05/05/2021; Abdomen 1 View (KUB) dated 04/19/2021; Abdomen 1 Vie w (KUB) dated 04/18/2021; Abdomen 1 View (KUB) dated 04/07/2021; Abdomen Pelvis W Contrast dated 2021 FINDINGS: Dilated small bowel centrally measuring up to 5.8 cm. Colon is decompressed. No acute osse ous abnormality.Visualized lungs are unremarkable.No abnormal calcifications. IMPRESSION: Findings suggestive of a small bowel obstruction similar to 06/04/2021.
--- NOTE | 2021-06-19 21:22 | ER ---
Nurse's Notes [facility] Name: Kindra Novoa Age: 66 yrs Sex: Female : 1955 Arrival Date: 06/19/2021 Time: 18:42 Bed 13 Private MD: Moriah Vasquez Diagnosis: Crohn's disease of both small and large intestine with intestinal obstruction Presentation: 06/19 18:56 Chief complaint: Patient states: It's my chron's. Reports stabbing upper abdominal pain jl7 x 2 days, denies N/V/D, denies fever. Coronavirus screen: At this time, the client does not indicate any symptoms associated with coronavirus-19. Ebola Screen: No symptoms or risks identified at this time. Initial Sepsis Screen: Does the patient meet any 2 criteria? No. Patient's initial sepsis screen is negative. Does the patient have a suspected source of infection? No. Patient's initial sepsis screen is negative. Risk Assessment: Do you want to hurt yourself or someone else? Patient reports no desire to harm self or others. Onset of symptoms was June 17, 2021. 18:56 Method Of Arrival: Wheelchair jl7 18:56 Acuity: KAROL 3 jl7 Triage Assessment: 18:58 General: Appears in no apparent distress. uncomfortable, Behavior is calm, cooperative, jl7 appropriate for age. Pain: Complains of pain in epigastric area, right upper quadrant and left upper quadrant Pain currently is 10 out of 10 on a pain scale. GI: Patient currently denies diarrhea, nausea, vomiting. Historical: - Allergies: 18:58 Ciprofloxacin; jl7 18:58 Flagyl; jl7 18:58 Latex, Natural Rubber; jl7 - Home Meds: 18:58 atorvastatin 10 mg Oral tab [Active]; cetirizine 10 mg Oral cap [Active]; hyoscyamine jl7 sulfate 0.125 mg Oral tab [Active]; levothyroxine 25 mcg cap [Active]; lisinopril 5 mg Oral tab [Active]; metoprolol tartrate 50 mg Oral tab [Active]; ondansetron HCl 4 mg Oral tab [Active]; sertraline 100 mg Oral tab [Active]; bupropion HCl 75 mg Oral tab [Active]; prednisone 10 mg Oral tab [Active]; - PMHx: 18:58 bowel obstruction; Colitis; Crohn's Disease; Depression; Hypertension; Hypothyroidism; jl7 Insulin Resistance; - Immunization history:: Adult Immunizations up to date. - Social history:: Smoking status: Patient denies any tobacco usage or history of. Screenin:40 Abuse screen: Denies threats or abuse. Nutritional screening: No deficits noted. ll3 Tuberculosis screening: No symptoms or risk factors identified. Fall Risk No fall in past 12 months (0 pts). No secondary diagnosis (0 pts). IV access (20 points). Ambulatory Aid- None/Bed Rest/Nurse Assist (0 pts). Gait- Normal/Bed Rest/Wheelchair (0 pts) Mental Status- Oriented to own ability (0 pts). Total Ferrell Fall Scale indicates No Risk (0-24 pts). Assessment: 19:30 General: Appears uncomfortable, Behavior is calm, cooperative. Pain: Complains of pain ll3 in epigastric area Pain currently is 10 out of 10 on a pain scale. Pain began 2-3 days ago. Is continuous. Neuro: Level of Consciousness is awake, alert, obeys commands, Oriented to person, place, time, situation. Respiratory: No deficits noted. GI: Bowel sounds present X 4 quads. Abd is soft and non tender X 4 quads. Reports upper abdominal pain, Patient currently denies diarrhea, vomiting. Derm: Skin is pink, warm \T\ dry. 20:51 Reassessment: Patient and/or family updated on plan of care and expected duration. Pain ll3 level reassessed. Patient is alert, oriented x 3, equal unlabored respirations, skin warm/dry/pink. States pain is 5/10 Patient states feeling better. 21:53 Reassessment: Patient and/or family updated on plan of care and expected duration. Pain ll3 level reassessed. Patient is alert, oriented x 3, equal unlabored respirations, skin warm/dry/pink. C/o abdominal pain 7/10, Esa SKINNER, notified, medicated as ordered, tolerated well. 23:07 Reassessment: Patient and/or family updated on plan of care and expected duration. Pain ll3 level reassessed. Patient is alert, oriented x 3, equal unlabored respirations, skin warm/dry/pink. States pain is 4/10 Patient states feeling better. 05/05 00:29 Reassessment: Patient and/or family updated on plan of care and expected duration. Pain ll3 level reassessed. Patient is alert, oriented x 3, equal unlabored respirations, skin warm/dry/pink. Vital Signs: 06/19 18:56 BP 140 / 71; Pulse 67; Resp 17; Temp 97.3; Pulse Ox 99% ; Weight 106.59 kg; Height 5 jl7 ft. 0 in. (152.40 cm); Pain 10/10; 19:40 BP 114 / 62; Pulse 63; Resp 17; Pulse Ox 98% on R/A; ll3 20:51 BP 107 / 70; Pulse 57; Resp 18; Pulse Ox 98% on R/A; ll3 21:53 BP 122 / 59; Pulse 55; Resp 18; Pulse Ox 98% on R/A; ll3 23:07 BP 92 / 49; Pulse 54; Resp 17; Pulse Ox 97% on R/A; ll3 06/20 00:29 BP 100 / 57; Pulse 50; Resp 16; Pulse Ox 99% on R/A; ll3 06/19 18:56 Body Mass Index 45.89 (106.59 kg, 152.40 cm) jl7 ED Course: 06/19 18:42 Patient arrived in ED. as 18:42 Moriah Vasquez is Private Physician. as 18:58 Triage completed. jl7 18:58 Arm band placed on right wrist. jl7 19:13 Esa Betts PA is PHCP. cp 19:13 Patrick Costa MD is Attending Physician. cp 19:20 Chad Xiong MD is Attending Physician. cp 19:40 Patient has correct armband on for positive identification. Bed in low position. Call ll3 light in reach. Side rails up X 1. Adult w/ patient. Pulse ox on. NIBP on. 19:40 Inserted saline lock: 22 gauge in left antecubital area, using aseptic technique. Blood ll3 collected. 19:55 Vesna Garsia, CHRISTIANO is Primary Nurse. ll3 21:05 XRAY Abdomen Acute Series In Process Unspecified. EDMS 21:19 Janina Sena PA is Hospitalizing Provider. cp 06/20 00:06 Ventura Castillo is Hospitalizing Provider. cp 00:46 No provider procedures requiring assistance completed. Patient admitted, IV remains in ll3 place. intact, No redness/swelling at site. Administered Medications: 06/19 19:40 Drug: Zofran (Ondansetron) 4 mg Route: IVP; Site: left antecubital; ll3 20:48 Follow up: Response: No adverse reaction ll3 19:45 Drug: Pepcid (famotidine) 20 mg Route: IVP; Site: left antecubital; ll3 20:47 Follow up: Response: No adverse reaction ll3 19:50 Drug: morphine 4 mg Route: IVP; Site: left antecubital; ll3 20:47 Follow up: Response: No adverse reaction ll3 21:35 Drug: SOLU-Medrol (methylPrednisoLONE) 125 mg Route: IVP; Site: left antecubital; ll3 22:34 Follow up: Response: No adverse reaction ll3 21:38 Drug: Zosyn (piperacillin-tazobactam) 3.375 grams Route: IVPB; Infused Over: 60 mins; ll3 Site: left antecubital; 23:09 Follow up: Response: No adverse reaction; IV Status: Completed infusion; IV Intake: ll3 100ml 21:46 Drug: morphine 4 mg Route: IVP; Site: left antecubital; ll3 22:34 Follow up: Response: No adverse reaction; Marked relief of symptoms ll3 22:40 Drug: NS 0.9% 1000 ml Route: IV; Rate: 100 ml/hr; Site: left antecubital; ll3 Intake: 23:09 IV: 100ml; Total: 100ml. ll3 Outcome: 21:22 Decision to Hospitalize by Provider. lavon 06/20 00:46 Admitted to Med/surg accompanied by tech, via wheelchair, room 222, with chart, Report ll3 called to CHRISTIANO Evangelista Condition: stable Instructed on the need for admit, Demonstrated understanding of instructions. 00:46 Patient left the ED. ll3 Signatures: Dispatcher [employer] Laura Little Corey, PA PA cp Shay Scruggs RN RN jl7 Vesna Garsia RN RN ll3
--- NOTE | 2021-06-19 21:22 | EDPHYS ---
Physician Documentation [facility] Name: Kindra Novoa Age: 66 yrs Sex: Female : 1955 Arrival Date: 06/19/2021 Time: 18:42 Bed 13 Private MD: Moriah Vasquez ED Physician Chad Xiong HPI: 06/19 19:35 This 66 yrs old Female presents to ER via Wheelchair with complaints of cp Abdominal Pain. 19:35 The patient presents with abdominal pain in the upper abdomen. Onset: The cp symptoms/episode began/occurred 2 day(s) ago. Associated signs and symptoms: Pertinent positives: nausea. 19:35 The symptoms are described as constant. cp 19:35 Severity of pain: in the emergency department the pain is unchanged despite home cp interventions. The patient has experienced similar episodes in the past, multiple times, today's symptoms are similar, to when the patient was apparently diagnosed with bowel obstruction. Historical: - Allergies: 18:58 Ciprofloxacin; jl7 18:58 Flagyl; jl7 18:58 Latex, Natural Rubber; jl7 - Home Meds: 18:58 atorvastatin 10 mg Oral tab [Active]; cetirizine 10 mg Oral cap [Active]; hyoscyamine jl7 sulfate 0.125 mg Oral tab [Active]; levothyroxine 25 mcg cap [Active]; lisinopril 5 mg Oral tab [Active]; metoprolol tartrate 50 mg Oral tab [Active]; ondansetron HCl 4 mg Oral tab [Active]; sertraline 100 mg Oral tab [Active]; bupropion HCl 75 mg Oral tab [Active]; prednisone 10 mg Oral tab [Active]; - PMHx: 18:58 bowel obstruction; Colitis; Crohn's Disease; Depression; Hypertension; Hypothyroidism; jl7 Insulin Resistance; - Immunization history:: Adult Immunizations up to date. - Social history:: Smoking status: Patient denies any tobacco usage or history of. ROS: 19:40 Constitutional: Negative for body aches, chills, fever, poor PO intake. cp 19:40 Eyes: Negative for injury, pain, redness, and discharge. cp 19:40 ENT: Negative for drainage from ear(s), ear pain, sore throat, difficulty swallowing, difficulty handling secretions. 19:40 Cardiovascular: Negative for chest pain, edema, palpitations. 19:40 Respiratory: Negative for cough, shortness of breath, wheezing. 19:40 Abdomen/GI: Positive for abdominal pain, nausea, anorexia, Negative for vomiting, diarrhea, constipation, hematemesis, black/tarry stool, rectal bleeding. 19:40 Back: Negative for radiated pain. 19:40 : Negative for urinary symptoms. 19:40 Neuro: Negative for altered mental status, dizziness, headache, weakness. 19:40 All other systems are negative. Exam: 19:45 Constitutional: The patient appears in no acute distress, alert, awake, non-toxic, well cp developed, well nourished, obese. 19:45 Head/Face: Normocephalic, atraumatic. cp 19:45 Eyes: Periorbital structures: appear normal, Conjunctiva: normal, no exudate, no injection, Sclera: no appreciated abnormality, Lids and lashes: appear normal, bilaterally. 19:45 ENT: External ear(s): are unremarkable, Nose: is normal, Mouth: Lips: moist, Oral mucosa: pink and intact, moist, Posterior pharynx: Airway: no evidence of obstruction, patent. 19:45 Chest/axilla: Inspection: normal. 19:45 Cardiovascular: Rate: normal, Rhythm: regular, Edema: is not appreciated, JVD: is not appreciated. 19:45 Respiratory: the patient does not display signs of respiratory distress, Respirations: normal, no use of accessory muscles, no retractions, labored breathing, is not present, Breath sounds: are clear throughout, no decreased breath sounds, no stridor, no wheezing. 19:45 Abdomen/GI: Inspection: obese Bowel sounds: active, all quadrants, Palpation: soft, in all quadrants, moderate abdominal tenderness, in the right upper quadrant and left upper quadrant, rebound tenderness, is not appreciated, voluntary guarding, is elicited in the right upper quadrant and left upper quadrant. 19:45 Back: CVA tenderness, is absent. 19:45 Neuro: Orientation: to person, place \\T\\ time. Mentation: is normal, Motor: moves all fours, strength is normal, Sensation: is normal. Vital Signs: 18:56 BP 140 / 71; Pulse 67; Resp 17; Temp 97.3; Pulse Ox 99% ; Weight 106.59 kg; Height 5 7 ft. 0 in. (152.40 cm); Pain 10/10; 19:40 BP 114 / 62; Pulse 63; Resp 17; Pulse Ox 98% on R/A; ll3 20:51 BP 107 / 70; Pulse 57; Resp 18; Pulse Ox 98% on R/A; ll3 21:53 BP 122 / 59; Pulse 55; Resp 18; Pulse Ox 98% on R/A; ll3 23:07 BP 92 / 49; Pulse 54; Resp 17; Pulse Ox 97% on R/A; ll3 05/05 00:29 BP 100 / 57; Pulse 50; Resp 16; Pulse Ox 99% on R/A; ll3 0504 18:56 Body Mass Index 45.89 (106.59 kg, 152.40 cm) [facility] MDM: 06/19 19:14 Patient medically screened. 21:30 Physician consultation: Ken Soriano MD was contacted at 21:30, regarding consult, cp patient's condition. 21:30 Data reviewed: vital signs, nurses notes, lab test result(s), radiologic studies, plain cp films. 06/19 19:32 Order name: CBC with Diff; Complete Time: 20:20 06/19 20:33 Interpretation: Normal except: WBC 12.8. 06/19 19:32 Order name: CMP; Complete Time: 20:20 06/19 19:32 Order name: Lipase; Complete Time: 20:20 06/19 19:32 Order name: Urine Microscopic Only; Complete Time: 20:20 06/19 19:32 Order name: Lactate; Complete Time: 20:20 06/19 19:57 Order name: Urine Dipstick-Ancillary; Complete Time: 20:03 EDNH 06/19 20:03 Interpretation: Reviewed. 06/19 20:15 Order name: Urine Culture EDNH 06/19 20:40 Order name: XRAY Abdomen Acute Series; Complete Time: 21:22 cp 06/19 21:22 Interpretation: Report reviewed. 06/19 21:18 Order name: COVID-19/FLU A+B (Document "Date of Onset" if Symptomatic) 06/19 19:32 Order name: IV Saline Lock; Complete Time: 19:58 06/19 19:32 Order name: Labs collected and sent; Complete Time: 19:58 cp 06/19 19:32 Order name: Urine Dipstick-Ancillary (obtain specimen); Complete Time: 19:58 cp Administered Medications: 19:40 Drug: Zofran (Ondansetron) 4 mg Route: IVP; Site: left antecubital; ll3 20:48 Follow up: Response: No adverse reaction ll3 19:45 Drug: Pepcid (famotidine) 20 mg Route: IVP; Site: left antecubital; ll3 20:47 Follow up: Response: No adverse reaction ll3 19:50 Drug: morphine 4 mg Route: IVP; Site: left antecubital; ll3 20:47 Follow up: Response: No adverse reaction ll3 21:35 Drug: SOLU-Medrol (methylPrednisoLONE) 125 mg Route: IVP; Site: left antecubital; ll3 22:34 Follow up: Response: No adverse reaction ll3 21:38 Drug: Zosyn (piperacillin-tazobactam) 3.375 grams Route: IVPB; Infused Over: 60 mins; ll3 Site: left antecubital; 23:09 Follow up: Response: No adverse reaction; IV Status: Completed infusion; IV Intake: ll3 100ml 21:46 Drug: morphine 4 mg Route: IVP; Site: left antecubital; ll3 22:34 Follow up: Response: No adverse reaction; Marked relief of symptoms ll3 22:40 Drug: NS 0.9% 1000 ml Route: IV; Rate: 100 ml/hr; Site: left antecubital; ll3 Disposition: 06/20 00:48 Co-signature as Attending Physician, Chad Xiong MD I agree with the assessment and kdr plan of care. Disposition Summary: 06/19/21 21:22 Hospitalization Ordered Hospitalization Status: Inpatient Admission cp [facility] cp Condition: Stable cp Problem: an ongoing problem cp Symptoms: have improved cp Bed/Room Type: Standard cp Provider: Ventura Castillo(06/20/21 00:06) cp Room Assignment: [facility](06/20/21 00:27) cg Diagnosis - Crohn's disease of both small and large intestine with intestinal obstruction cp Forms: - Medication Reconciliation Form cp - SBAR form cp Signatures: Dispatcher [employer] Chad Seay MD MD [facility] Esa Betts PA PA cp Garcia, Cindy RN RN cg Shay Scruggs RN RN jl7 Vesna Garsia RN RN ll3 Janina Sena PA PA sb3 Corrections: (The following items were deleted from the chart) 00:06 06/19 21:22 Janina Sena cp cp 06/20 00:27 06/19 21:22 cp
[2021-06-19] MEDS ORDERED: PIPERACIL/TAZO 3.375 GM VIAL IV ONE (21:27)
[2021-06-19] MEDS ORDERED: NA CHLORIDE 0.9% 100 ML IV ONE (21:27)
[2021-06-19] MEDS ORDERED: METHYLPREDNISOLONE 125 MG INJ ONE (21:27)
--- NOTE | 2021-06-19 21:36 | P.HP ---
Certification for Inpatient Patient admitted to: Inpatient With expected LOS: <2 Midnights Patient will require the following post-hospital care: None Practitioner: I am a practitioner with admitting privileges, knowledge of patient current condition, hospital course, and medical plan of care. Services: Services provided to patient in accordance with Admission requirements found in Title 42 Section 412.3 of the Code of Federal Regulations Patient History Date of Service: 06/19/21 Reason for admission: SBO History of Present Illness: Patient is a 66-year-old female with Crohn's disease and recurrent SBO who presented to the ED with complaints of abdominal pain that began today. She reports the pain is similar to her previous episodes. She is frustrated that she keeps having to come to the ER every 2 weeks for the same symptoms. she denies nausea or vomiting. She reports passing gas and having bowel movements. She denies any changes in her medical history or medications. Work-up revealed a white blood cell count of 12.7, urine positive for UTI, and acute abdomen series showed small bowel obstruction unchanged from prior visits. General surgery consulted. She was started on Solu-Medrol, Zosyn, and IV fluids. Will admit patient for further evaluation and treatment. Allergies ciprofloxacin Allergy (Verified 07/12/20 22:34) Itching/Hives/Rash latex [Latex] Allergy (Verified 05/12/11 07:41) Itching/Hives/Rash Latex, Natural Rubber Allergy (Verified 06/07/20 05:52) Unknown metronidazole Allergy (Verified 07/12/20 22:34) Itching/Hives/Rash buspirone Adverse Reaction (Verified 07/12/20 22:35) Nausea/Vomiting Home medications list reviewed: Yes Home Medications: Levothyroxine Sodium 25 mcg PO DAILY 07/27/20 Sertraline [Zoloft*] 200 mg PO BEDTIME 07/27/20 buPROPion HCL [Bupropion HCl] 150 mg PO BID 12/10/20 Ondansetron [Zofran (Odt)*] 4 mg PO Q6H PRN #10 tab 03/08/21 Atorvastatin Calcium 10 mg PO DAILY 04/05/21 Metoprolol Succinate [Toprol Xl*] 50 mg PO BID 04/05/21 predniSONE [Deltasone*] 10 mg PO DAILY #30 tab 05/22/21 Acetaminophen 160 mg PO Q4H PRN 06/05/21 Cetirizine HCl [Zyrtec] 1 tab PO DAILY 06/05/21 Hyoscyamine Sulfate [Levsin TAB*] 0.125 tab PO Q4H 06/05/21 Lisinopril [Zestril] 5 mg PO DAILY 06/05/21 Pantoprazole Sodium [Protonix] 1 tab PO DAILY 06/05/21 Amox/Clavulanate [Augmentin 875-125 Tab] 1 each PO BID #10 tab 06/06/21 Hydrocodone 5/APAP 325 [[place] 5/325] 1 tab PO Q6H PRN #20 tab 06/06/21 predniSONE [Deltasone*] 10 mg PO DAILY #45 tab 06/06/21 - Past Medical/Surgical History Diabetic: No -: HTN -: Prediabetes -: Hypothyroidism -: Depression -: Recurrent SBO -: GERD -: Crohn's disease -: Psychosocial/ Personal History: Patient is . - Family History Father -: Cancer Notes: lung Cx Mother -: Heart disease - Social History Smoking Status: Never smoker Alcohol use: No CD- Drugs: No Caffeine use: Yes Review of Systems 10-point ROS is otherwise unremarkable Gastrointestinal: Abdominal Pain, No Distention Physical Examination - Physical Exam General: Alert, In no apparent distress HEENT: Atraumatic, PERRLA, EOMI, Sclerae nonicteric Neck: Supple, 2+ carotid pulse no bruit, No LAD, Without JVD or thyroid abnormal ity Respiratory: Clear to auscultation bilaterally, Normal air movement Cardiovascular: Regular rate/rhythm, Normal S1 S2 Gastrointestinal: Normal bowel sounds, Soft and benign, Non-distended, Tenderness (mild) Musculoskeletal: No tenderness Integumentary: No rashes Neurological: Normal speech, Normal strength at 5/5 x4 extr, Normal tone, Normal affect - Studies Laboratory Data (last 24 hrs) 06/19/21 19:47: Sodium 140, Potassium 4.0, BUN 21 H, Creatinine 1.11, Glucose 114 H, Total Bilirubin 0.4, AST 11 L, ALT 21, Alkaline Phosphatase 100, Lipase 113 06/19/21 19:47: WBC 12.8 H D, Hgb 12.5, Hct 38.4, Plt Count 339 Assessment and Plan - Problems (Diagnosis) (1) Small bowel obstruction Current Visit: Yes Status: Chronic (2) Crohn's disease Current Visit: Yes Status: Chronic Qualifiers: Gastrointestinal tract location: unspecified location Digestive disease complication type: with intestinal obstruction Qualified Code(s): K50.912 - Crohn's disease, unspecified, with intestinal obstruction (3) Hypertension Current Visit: No Status: Chronic Qualifiers: Hypertension type: primary hypertension Qualified Code(s): I10 - Essential (primary) hypertension (4) Hypothyroidism Current Visit: No Status: Chronic Qualifiers: Hypothyroidism type: acquired Qualified Code(s): E03.9 - Hypothyroidism, unspecified (5) Prediabetes Current Visit: No Status: Chronic (6) UTI (urinary tract infection) Current Visit: Yes Status: Acute Qualifiers: Urinary tract infection type: acute cystitis Hematuria presence: without hematuria Qualified Code(s): N30.00 - Acute cystitis without hematuria - Plan -General surgery and GI consult -Continue Zosyn, Solu-Medrol, IV fluids. N.p.o. -Morphine as needed for pain -No nausea or vomiting. NG tube unnecessary at this -Blood sugar control with sliding scale -Monitor and replete electrolytes as necessary -Reconcile continue home medications -Lovenox for VTE prophylax Discharge Plan: Home Plan to discharge in: 48 Hours - Advance Directives Does patient have a Living Will: No Does patient have a Durable POA for Healthcare: No - Code Status/Comfort Care Code Status Assessed: Yes (Full) Critical Care: No Time Spent Managing Pts Care (In Minutes): 70
[2021-06-19] MEDS ORDERED: NA CHLORIDE 0.9% 1,000 ML ONE (21:45)
[2021-06-19 22:23] LABS: SARS-COV-2 RT PCR NEGATIVE (NEGATIVE)
[2021-06-20 01:25] VITALS: O2SAT 99
[2021-06-20 01:30] VITALS: BMI 45.8
[2021-06-20] MEDS: MORPHINE 2 MG/ML SYR IV PRN ×5 (01:43→19:53)
[2021-06-20] MEDS: ONDANSETRON 4 MG/2 ML VIAL IV PRN ×3 (01:44→19:53)
[2021-06-20 05:59] LABS: Absolute Lymphocytes (CBC) 1.1 K/uL (0.7-4.9); Hematocrit 35.8 % (36.0-45.0); Lymphocytes % 14.8 % (15.3-44.8); MPV 7.3 fL (7.6-11.3)
[2021-06-20 06:14] LABS: Magnesium 2.2 mg/dL (1.8-2.4); Phosphorus 3.1 mg/dL (2.5-4.9); Potassium 4.4 mmol/L (3.5-5.1)
[2021-06-20] MEDS: PIPER TAZO 3.375 GM in NA CHLORIDE 0.9% 100 ML IV SCH ×2 (06:21→17:25)
[2021-06-20] MEDS: METHYLPREDNISOLONE 125 MG INJ IV SCH ×3 (06:22→17:25)
[2021-06-20] MEDS: NA CHLORIDE 0.9% 1,000 ML IV SCH ×3 (06:27→19:52)
[2021-06-20] MEDS: INSULIN -REGULAR HUMAN 50 UNIT/0.5 ML ML SQ SCH ×4 (07:30→20:43)
[2021-06-20] MEDS: ENOXAPARIN 40 MG/0.4 ML SQ SCH (09:30)
--- NOTE | 2021-06-20 16:57 | P.PN ---
Subjective Date of Service: 06/20/21 Chief Complaint: SBO Patient states she feels better today. She was seen by general surgery Dr. Soriano this morning and started on clear liquid diet. Patient states she has been having bowel movement. No vomiting. Physical Examination - Vital Signs Temperature: 97.7 F Blood Pressure: 110/58 Pulse: 55 Respirations: 17 Pulse Ox (%): 96 - Physical Exam General: Alert, In no apparent distress, Oriented x3 HEENT: Mucous membr. moist/pink Neck: JVD not distended Respiratory: Clear to auscultation bilaterally, Normal air movement Cardiovascular: No edema, Regular rate/rhythm, Normal S1 S2 Gastrointestinal: Normal bowel sounds, Soft and benign, Non-distended, No tenderness Musculoskeletal: No swelling Integumentary: No rashes Neurological: Normal strength at 5/5 x4 extr - Studies Laboratory Data (last 24 hrs) 06/19/21 19:47: Sodium 140, Potassium 4.0, BUN 21 H, Creatinine 1.11, Glucose 114 H, Total Bilirubin 0.4, AST 11 L, ALT 21, Alkaline Phosphatase 100, Lipase 113 06/19/21 19:47: WBC 12.8 H D, Hgb 12.5, Hct 38.4, Plt Count 339 Assessment And Plan - Current Problems (Diagnosis) (1) Partial small bowel obstruction Current Visit: Yes Status: Acute (2) Crohn's disease Current Visit: Yes Status: Chronic Qualifiers: Gastrointestinal tract location: unspecified location Digestive disease complication type: with intestinal obstruction Qualified Code(s): K50.912 - Crohn's disease, unspecified, with intestinal obstruction (3) Hypertension Current Visit: No Status: Chronic Qualifiers: Hypertension type: primary hypertension Qualified Code(s): I10 - Essential (primary) hypertension (4) Hypothyroidism Current Visit: No Status: Chronic Qualifiers: Hypothyroidism type: acquired Qualified Code(s): E03.9 - Hypothyroidism, unspecified - Plan Continue IV steroid, IV antibiotics. Serial abdominal examination. Patient started on clear liquid diet. Diet to be advanced as tolerated. Monitor and optimize electrolytes Blood sugar within normal range. Patient with multiple readmissions. Awaiting GI input.
[2021-06-20] MEDS ORDERED: BUPROPION HCL XL 150 MG TAB PO ONE (20:12)
[2021-06-20] MEDS: METOPROLOL XL 50 MG TAB PO SCH (21:00)
[2021-06-20] MEDS ORDERED: BUPROPRION HCL S.R. 150MG TAB PO SCH (21:00)
[2021-06-20] MEDS ORDERED: SERTRALINE HCL 100 MG TAB PO SCH (21:00)
[2021-06-21] MEDS: PIPER TAZO 3.375 GM in NA CHLORIDE 0.9% 100 ML IV SCH ×2 (00:27→08:19)
[2021-06-21] MEDS: METHYLPREDNISOLONE 125 MG INJ IV SCH ×3 (00:28→11:27)
[2021-06-21] MEDS: MORPHINE 2 MG/ML SYR IV PRN ×3 (00:33→11:30)
[2021-06-21] MEDS: ONDANSETRON 4 MG/2 ML VIAL IV PRN ×2 (04:22→11:30)
[2021-06-21] MEDS: NA CHLORIDE 0.9% 1,000 ML IV SCH (05:44)
[2021-06-21 06:10] LABS: Absolute Lymphocytes (CBC) 0.9 K/uL (0.7-4.9); Hematocrit 34.8 % (36.0-45.0); Lymphocytes % 11.1 % (15.3-44.8); MPV 7.6 fL (7.6-11.3); RBC Red Blood Cell Count 3.85 M/uL (3.86-4.86)
[2021-06-21 06:27] LABS: Magnesium 2.3 mg/dL (1.8-2.4); Phosphorus 2.7 mg/dL (2.5-4.9); Potassium 4.1 mmol/L (3.5-5.1)
[2021-06-21] MEDS ORDERED: PANTOPRAZOLE 40MG TABLET PO SCH (06:30)
[2021-06-21 07:01] LABS: Blood Morphology Comment NOT SEEN (NOT SEEN); Platelet Estimate ADEQ; White Blood Cell Scan OK (OK)
[2021-06-21] MEDS: INSULIN -REGULAR HUMAN 50 UNIT/0.5 ML ML SQ SCH ×2 (07:30→11:27)
[2021-06-21] MEDS ORDERED: LEVOTHYROXINE SOD 0.025 MG TAB PO SCH (07:30)
[2021-06-21] MEDS ORDERED: PIPERACIL/TAZO 3.375 GM VIAL IV ONE (07:34)
[2021-06-21] MEDS ORDERED: NA CHLORIDE 0.9% 100 ML ONE (07:45)
[2021-06-21] MEDS: HYDROCODONE/APAP 5/325 MG TAB PO PRN ×2 (08:19→15:08)
[2021-06-21] MEDS: ENOXAPARIN 40 MG/0.4 ML SQ SCH (08:20)
[2021-06-21] MEDS: METOPROLOL XL 50 MG TAB PO SCH (08:21)
[2021-06-21] MEDS ORDERED: ATORVASTATIN 10 MG TAB PO SCH (09:00)
[2021-06-21] MEDS ORDERED: BUPROPRION HCL S.R. 150MG TAB PO SCH (09:00)
[2021-06-21] MEDS ORDERED: CETIRIZINE HCL 5 MG TABLET PO SCH (09:00)
[2021-06-21] MEDS ORDERED: lisinopriL 5 MG TAB PO SCH (09:00)
--- NOTE | 2021-06-21 10:12 | P.PN ---
Subjective Date of Service: 06/21/21 Chief Complaint: SBO Subjective: Improving (Tolerated full liquid diet) Physical Examination - Vital Signs Temperature: 97 F Blood Pressure: 142/70 Pulse: 59 Respirations: 17 Pulse Ox (%): 96 - Physical Exam General: Alert, In no apparent distress, Cooperative Gastrointestinal: Soft and benign, Non-distended, No ascites, No tenderness, No masses, No rebound, No guarding Assessment And Plan - Current Problems (Diagnosis) (1) Partial small bowel obstruction Current Visit: Yes Status: Acute Plan: - soft diet - serial exams - patient will need follow up with her GI to see if modification of Crohns treatment needs to be modified
--- NOTE | 2021-06-21 13:27 | CON ---
Date of Consultation: 06/20/2021 Brief History Of Present Illness: The patient is a 66-year-old female known to me with a history of Crohn's disease at the ileocecal valve with frequent hospitalizations for recurrent small bowel obstr uctions treated nonoperatively with pulse steroids on multiple occasions over the past few months. S he currently has a apprentice painter hand who started her on Humira. I believe she has had several round s of this without significant resolution but does have some improvement by her description. She came to the ER roughly every 2 weeks with recurrent small bowel obstruction at the ileocecal valve confir med on imaging. On this particular case, since she had similar episode of pain as described in the p revious times, she now says that she has no nausea, no vomiting. She has continued to have bowel fun ction. She is currently pain free, and her symptoms have improved significantly since admission. Ira rose is tolerating ice chips at the time of my examination. Past Medical History: Hypertension, diabetes, hypothyroidism, depression, recurrent small bowel obst ructions, GERD, Crohn's disease. Past Surgical History: Includes C-sections. Home Medications: Include Zoloft, levothyroxine, Buspar, Zofran, atorvastatin, Toprol, Deltasone p.r .n., Zyrtec, acetaminophen, hyoscyamine, Zestril, Protonix, Augmentin, [place]. She takes Humira. Allergies: CIPRO, LATEX, FLAGYL, AND BUSPAR. Review of Systems: Ten-point review of systems other than HPI denies. Social History: Denies smoking, alcohol, or recreational drug use. Physical Examination: At the time of my examination; General: She is awake, alert, and oriented. Psychiatric: She is appropriate and conversive. HEENT: She is normocephalic. Sclerae anicteric. Mucous membranes moist. Oropharynx clear. Neck: Supple without JVD. Chest: Normal expansion and excursion. Cardiovascular: Regular rate and rhythm. Pulmonary: Clear to auscultation bilaterally. Abdomen: Soft, nontender, nondistended. No rebound. No guarding. No focal peritonitis. Extremities: No clubbing, cyanosis, or edema. Skin: Warm and dry. Laboratory Exam: Reveals a white blood cell count of 7.4, hemoglobin 12.0, hematocrit 35.8, platelet count is 291. Her neutrophils are 83%. Her sodium 140, potassium 4.4, chloride 106, carbon dioxide 32, BUN 20, creatinine 1.9, glucose is 133. Her lactic acid is 1.6 on admission. She had a UA whic h showed squamous cells, white blood cells, and 1+ leukocyte esterase. She had imaging performed [facility] included a small bowel series on 06/19/2021, officially read as dilated small bowel, essentially m easuring 5.8 cm, colon is decompressed, no acute osseous abnormality. The patient's lungs are unrema rkable. Had a CT scan which showed small bowel obstruction similar to 06/04/2021. Assessment And Plan: This is a 66-year-old woman who comes in with recurrent small bowel obstruction , likely due to Crohn's exacerbation. 1.IV fluid hydration. 2.Antibiotic coverage. 3.Pulse steroids. 4.Serial exams. 5.I have explained the risks, benefits, and alternatives to the above stated plan. The patient agre es to proceed as indicated. Thank you for this interesting consult. RODGER/ALIREZA Voice ID: [id number] Report ID: [id number]
--- NOTE | 2021-06-21 14:45 | P.DS ---
Admission Date: 06/19/21 Discharge Date: 06/21/21 Disposition: ROUTINE DISCHARGE Discharge Condition: FAIR Reason for Admission: SBO - Problems (1) Partial small bowel obstruction Current Visit: Yes Status: Acute (2) Crohn's disease Current Visit: Yes Status: Chronic Qualifiers: Gastrointestinal tract location: unspecified location Digestive disease complication type: with intestinal obstruction Qualified Code(s): K50.912 - Crohn's disease, unspecified, with intestinal obstruction (3) Hypertension Current Visit: No Status: Chronic Qualifiers: Hypertension type: primary hypertension Qualified Code(s): I10 - Essential (primary) hypertension (4) Hypothyroidism Current Visit: No Status: Chronic Qualifiers: Hypothyroidism type: acquired Qualified Code(s): E03.9 - Hypothyroidism, unspecified Brief History of Present Illness: Patient is a 66-year-old female with Crohn's disease and recurrent SBO who presented to the ED with complaints of abdominal pain that began today. She reports the pain is similar to her previous episodes. She is frustrated that she keeps having to come to the ER every 2 weeks for the same symptoms. she denies nausea or vomiting. She reports passing gas and having bowel movements. She denies any changes in her medical history or medications. Work-up revealed a white blood cell count of 12.7, urine positive for UTI, and acute abdomen series showed small bowel obstruction unchanged from prior visits. General surgery consulted. She was started on Solu-Medrol, Zosyn, and IV fluids. Will admit patient for further evaluation and treatment. Hospital Course: Patient admitted to the medical floor and treated for Crohn's disease flare with IV steroid, antibiotics. She was seen and evaluated by general surgery who recommended medical management only. She had bowel movement and passed flatus. She tolerated diet advancement from clear liquid to soft diet. She was also ambulatory with no issues, abdominal pain resolved. Patient is deemed stable for discharge. An attempt to reach her risk management intern has been unsuccessful. Vital Signs/Physical Exam: Temp Pulse Resp BP Pulse Ox 97.4 F 57 16 122/61 96 06/21/21 12:00 06/21/21 12:00 06/21/21 12:00 06/21/21 12:00 06/21/21 12:00 General: Alert, In no apparent distress, Oriented x3 HEENT: Mucous membr. moist/pink Neck: JVD not distended Respiratory: Clear to auscultation bilaterally, Normal air movement Cardiovascular: No edema, Regular rate/rhythm, Normal S1 S2 Gastrointestinal: Soft and benign, Non-distended Musculoskeletal: No swelling, No tenderness Integumentary: No rashes, No erythema Neurological: Normal speech, Normal strength at 5/5 x4 extr Laboratory Data at Discharge: WBC 8.3 K/uL (4.3-10.9) 06/21/21 05:41 Hgb 11.5 g/dL (12.0-15.0) L 06/21/21 05:41 Hct 34.8 % (36.0-45.0) L 06/21/21 05:41 Plt Count 280 K/uL (152-406) 06/21/21 05:41 Sodium 141 mmol/L (136-145) 06/21/21 05:41 Potassium 4.1 mmol/L (3.5-5.1) 06/21/21 05:41 BUN 12 mg/dL (7-18) 06/21/21 05:41 Creatinine 0.88 mg/dL (0.55-1.3) 06/21/21 05:41 Glucose 126 mg/dL (74-106) H 06/21/21 05:41 Phosphorus 2.7 mg/dL (2.5-4.9) 06/21/21 05:41 Magnesium 2.3 mg/dL (1.8-2.4) 06/21/21 05:41 Total Bilirubin 0.4 mg/dL (0.2-1.0) 06/19/21 19:47 AST 11 U/L (15-37) L 06/19/21 19:47 ALT 21 U/L (12-78) 06/19/21 19:47 Alkaline Phosphatase 100 U/L (45-117) 06/19/21 19:47 Lipase 113 U/L (73-393) 06/19/21 19:47 Home Medications: Levothyroxine Sodium 25 mcg PO DAILY 07/27/20 Sertraline [Zoloft*] 200 mg PO BEDTIME 07/27/20 buPROPion HCL [Bupropion HCl] 150 mg PO BID 12/10/20 Ondansetron [Zofran (Odt)*] 4 mg PO Q6H PRN #10 tab 03/08/21 Atorvastatin Calcium 10 mg PO DAILY 04/05/21 Metoprolol Succinate [Toprol Xl*] 50 mg PO BID 04/05/21 Acetaminophen 160 mg PO Q4H PRN 06/05/21 Cetirizine HCl [Zyrtec] 1 tab PO DAILY 06/05/21 Hyoscyamine Sulfate [Levsin TAB*] 0.125 tab PO Q4H 06/05/21 Lisinopril [Zestril] 5 mg PO DAILY 06/05/21 Pantoprazole Sodium [Protonix] 1 tab PO DAILY 06/05/21 Hydrocodone 5/APAP 325 [[place] 5/325*] 1 tab PO Q6H PRN #20 tab 06/06/21 Amox/Clavulanate [Augmentin 875-125 Tab*] 1 each PO BID #10 tab 06/21/21 predniSONE [Deltasone*] 10 mg PO DAILY #45 tab 06/21/21 New Medications: Amox/Clavulanate [Augmentin 875-125 Tab*] 1 each PO BID #10 tab predniSONE [Deltasone*] 10 mg PO DAILY #45 tab Diet: Regular (Advance from soft diet as tolerated) Activity: Ad jaylen Followup: Moriah Vasquez NP [Primary Care Provider] - Time spent managing pt's care (in minutes): 36
[2021-06-21 16:21] VITALS: BP 155/73; TEMP 97.5
== END 2021-06-21 16:02 | disposition home or self-care (01) | DRG 386 ==
LOC: ER 18:40 → ERHOLD 21:26 → 2ND 06-20 00:30
PROVIDERS: ADMIT Internal Medicine; ATTEND Internal Medicine
DX: K50.012 Crohn's disease of small intestine with intestinal obstruction (principal); N30.00 Acute cystitis without hematuria; I10 Essential (primary) hypertension; E03.9 Hypothyroidism, unspecified; F32.A Depression, unspecified; K21.9 Gastro-esophageal reflux disease without esophagitis; Z91.040 Latex allergy status; Z20.822 Contact with and (suspected) exposure to COVID-19
CPT/HCPCS: 0240U; 36415; 74022; 80048; 80053; 81003; 81015; 82947; 83605; 83690; 83735; 84100; 85025; 87077; 87086; 87088; 87186; 96365; 96366; 96375; 99285; J1650; J2270; J2405; J2543; J2930; J3490; J7030

== ENCOUNTER 2021-08-30 15:10 | Inpatient (IN) | payer BC, OTHER ==
[2021-08-30] MEDS ORDERED: FENTANYL CITR 100 MCG/2 ML ONE ×2 (16:29→19:06)
[2021-08-30] MEDS ORDERED: ONDANSETRON 4 MG/2 ML VIAL ONE ×2 (16:30→19:06)
[2021-08-30 16:35] LABS: Absolute Lymphocytes (CBC) 1.1 K/uL (0.7-4.9); Hematocrit 35.3 % (36.0-45.0); Lymphocytes % 9.6 % (15.3-44.8); MCV 86.3 fL (80-100); MPV 6.9 fL (7.6-11.3); RBC Red Blood Cell Count 4.09 M/uL (3.86-4.86)
[2021-08-30 16:47] LABS: Albumin 3.3 g/dL (3.4-5.0); Bilirubin Total 0.5 mg/dL (0.2-1.0); Potassium 3.8 mmol/L (3.5-5.1); Protein, Total 6.9 g/dL (6.4-8.2)
--- NOTE | 2021-08-30 17:54 | RAD REPORT ---
EXAM DESCRIPTION: CT - Abdomen Pelvis W Contrast - 08/30/2021 5:40 pm CLINICAL HISTORY: Abdominal pain COMPARISON: 1999 TECHNIQUE: Computed axial tomography of the abdomen pelvis was obtained. 100 cc Isovue-300 was admin istered intravenously. Oral contrast was not requested which limits evaluation of bowel and appendix All CT scans are performed using dose optimization technique as appropriate and may include automated exposure control or mA/KV adjustment according to patient size. FINDINGS: Mild fatty infiltration Spleen, pancreas and adrenals unremarkable. Small renal cysts. Gallbladder wall is mildly to moderately thickened. Mild to moderate dilatation of several loops of jejunum. Ileum decompressed. A stricture within and the proximal ascending colon is present. Terminal ileum stricture suspected as well. No free air. No abscess. Small to moderate umbilical hernia IMPRESSION: Small bowel obstruction
--- NOTE | 2021-08-30 18:59 | EDPHYS ---
Physician Documentation [facility] Name: Kindra Novoa Age: 66 yrs Sex: Female : 1955 Arrival Date: 08/30/2021 Time: 15:12 Bed 8 Private MD: ED Physician Esa Swain HPI: 08/30 18:52 This 66 yrs old Female presents to ER via Wheelchair with complaints of mingo Abdominal Pain. 18:52 The patient presents with abdominal pain in the upper abdomen, in the lower abdomen, mingo abdominal distention in the upper abdomen, in the lower abdomen. Onset: The symptoms/episode began/occurred 2 day(s) ago. The patient presents to the emergency department with nausea, vomiting, that is intermittent, abdominal pain, of the right upper quadrant, left upper quadrant, right lower quadrant and left lower quadrant. Historical: - Allergies: 16:16 Ciprofloxacin; iw 16:16 Latex, Natural Rubber; iw 16:16 Flagyl; iw - Home Meds: 16:16 atorvastatin 10 mg Oral tab [Active]; bupropion HCl 150 mg Oral tab 2 times per day iw [Active]; cetirizine 10 mg Oral cap [Active]; hyoscyamine sulfate 0.125 mg Oral tab [Active]; levothyroxine 25 mcg cap [Active]; lisinopril 5 mg Oral tab [Active]; metoprolol tartrate 50 mg Oral tab 2 times per day [Active]; Dr[place]coll 5-325 mg Oral tab 1 tab every 6 hours [Active]; ondansetron HCl 4 mg Oral tab [Active]; pantoprazole 40 mg Oral TbEC once daily [Active]; sertraline 200mg Oral tab nightly [Active]; - PMHx: 16:16 Depression; Insulin Resistance; Hypothyroidism; Hypertension; Crohn's Disease; Colitis; iw bowel obstruction; - Immunization history:: Adult Immunizations unknown. - Social history:: Smoking status: Patient denies any tobacco usage or history of. ROS: 18:53 Constitutional: Negative for fever, chills, and weight loss, Eyes: Negative for injury, mingo pain, redness, and discharge, ENT: Negative for injury, pain, and discharge, Neck: Negative for injury, pain, and swelling, Cardiovascular: Negative for chest pain, palpitations, and edema, Respiratory: Negative for shortness of breath, cough, wheezing, and pleuritic chest pain, Back: Negative for injury and pain, : Negative for injury, bleeding, discharge, and swelling, MS/Extremity: Negative for injury and deformity, Skin: Negative for injury, rash, and discoloration, Neuro: Negative for headache, weakness, numbness, tingling, and seizure, Psych: Negative for depression, anxiety, suicide ideation, homicidal ideation, and hallucinations, Allergy/Immunology: Negative for hives, rash, and allergies, Endocrine: Negative for neck swelling, polydipsia, polyuria, polyphagia, and marked weight changes, Hematologic/Lymphatic: Negative for swollen nodes, abnormal bleeding, and unusual bruising. 18:53 Abdomen/GI: Positive for abdominal pain, nausea and vomiting, abdominal cramps, abdominal distension, of the right upper quadrant, left upper quadrant, right lower quadrant and left lower quadrant. Exam: 18:53 Constitutional: This is a well developed, well nourished patient who is awake, alert, mingo and in no acute distress. Head/Face: Normocephalic, atraumatic. Eyes: Pupils equal round and reactive to light, extra-ocular motions intact. Lids and lashes normal. Conjunctiva and sclera are non-icteric and not injected. Cornea within normal limits. Periorbital areas with no swelling, redness, or edema. ENT: Nares patent. No nasal discharge, no septal abnormalities noted. Tympanic membranes are normal and external auditory canals are clear. Oropharynx with no redness, swelling, or masses, exudates, or evidence of obstruction, uvula midline. Mucous membranes moist. Neck: Trachea midline, no thyromegaly or masses palpated, and no cervical lymphadenopathy. Supple, full range of motion without nuchal rigidity, or vertebral point tenderness. No Meningismus. Chest/axilla: Normal chest wall appearance and motion. Nontender with no deformity. No lesions are appreciated. Cardiovascular: Regular rate and rhythm with a normal S1 and S2. No gallops, murmurs, or rubs. Normal PMI, no JVD. No pulse deficits. Respiratory: Lungs have equal breath sounds bilaterally, clear to auscultation and percussion. No rales, rhonchi or wheezes noted. No increased work of breathing, no retractions or nasal flaring. Back: No spinal tenderness. No costovertebral tenderness. Full range of motion. Female : Normal external genitalia. Skin: Warm, dry with normal turgor. Normal color with no rashes, no lesions, and no evidence of cellulitis. MS/ Extremity: Pulses equal, no cyanosis. Neurovascular intact. Full, normal range of motion. Neuro: Awake and alert, GCS 15, oriented to person, place, time, and situation. Cranial nerves II-XII grossly intact. Motor strength 5/5 in all extremities. Sensory grossly intact. Cerebellar exam normal. Normal gait. Psych: Awake, alert, with orientation to person, place and time. Behavior, mood, and affect are within normal limits. 18:53 Abdomen/GI: Inspection: distension, Bowel sounds: diminished, in all quadrants, Palpation: mild abdominal tenderness, in all quadrants, Liver: no appreciated palpable abnormalities, Hernia: not appreciated. 19:13 ECG was reviewed by the Attending Physician. mingo Vital Signs: 16:13 BP 99 / 59; Pulse 103; Resp 20; Temp 97.9; Pulse Ox 98% on R/A; Weight 108.86 kg; iw Height 5 ft. (152.40 cm); 18:50 BP 123 / 66; Pulse 98; Resp 17 S; Pulse Ox 97% ; Pain 9/10; jg9 19:00 BP 124 / 72; Pulse 99; Resp 20 S; Pulse Ox 97% ; jg9 20:47 Pulse 96; Resp 18; Pulse Ox 100% on R/A; Pain 6/10; tw5 16:13 Body Mass Index 46.87 (108.86 kg, 152.40 cm) iw MDM: 16:19 Patient medically screened. mingo 18:54 Differential diagnosis: Nonspecific abd pain, gastritis, cholecystitis, pancreatitis, mingo viral gastroenteritis, gastroenteritis, bowel obstruction, Cholelithiasis, diverticulitis, gastritis, Mesenteric ischemia or infarction, non-specific abd pain, pancreatitis, Peptic Ulcer Disease, Pyelonephritis, Ureterolithiasis, urinary tract infection. Data reviewed: vital signs, nurses notes, lab test result(s), EKG, radiologic studies, plain films. Data interpreted: monitor technician: rate is 103 beats/min, rhythm is regular, Pulse oximetry: on room air is 98 %. Test interpretation: by ED physician or midlevel provider: ECG, plain radiologic studies. Counseling: I had a detailed discussion with the patient and/or guardian regarding: the historical points, exam findings, and any diagnostic results supporting the discharge/admit diagnosis, lab results, radiology results, the need for further work-up and treatment in the hospital. 08/30 16:11 Order name: CBC with Diff; Complete Time: 18:27 08/30 16:11 Order name: CMP; Complete Time: 18:27 08/30 16:11 Order name: Lipase; Complete Time: 18:27 08/30 16:25 Order name: Troponin High Sensitivity; Complete Time: 18:27 [facility] 08/30 16:25 Order name: SARS-COV-2 RT PCR (Document "Date of Onset" if Symptomatic) [facility] 08/30 19:48 Order name: Urinalysis [facility] 08/30 19:48 Order name: Basic Metabolic Panel [facility] 08/30 19:48 Order name: Basic Metabolic Panel [facility] 08/30 19:48 Order name: CBC with Automated Diff [facility] 08/30 19:48 Order name: CBC with Automated Diff [facility] 08/30 19:48 Order name: Magnesium [facility] 08/30 19:48 Order name: Magnesium [facility] 08/30 19:48 Order name: Phosphorus [facility] 08/30 19:48 Order name: Phosphorus [facility] 08/30 16:11 Order name: IV Saline Lock; Complete Time: 16:22 08/30 16:11 Order name: Labs collected and sent; Complete Time: 16:22 08/30 16:11 Order name: Urine Dipstick-Ancillary (obtain specimen) 08/30 16:25 Order name: EKG; Complete Time: 16:25 [facility] 08/30 16:25 Order name: CT Abd/Pelvis - IV Contrast Only; Complete Time: 18:27 [facility] 08/30 18:28 Order name: Chest Single View XRAY [facility] 08/30 18:51 Order name: Abdomen 1 View (KUB) XRAY [facility] 08/30 19:48 Order name: NPO [facility] 08/30 16:25 Order name: EKG - Nurse/Tech; Complete Time: 19:18 [facility] EC:13 Rate is 95 beats/min. Rhythm is regular. QRS Corinne is Normal. TN interval is normal. QRS mingo interval is normal. QT interval is normal. No Q waves. T waves are Normal. No ST changes noted. Clinical impression: Normal ECG and No evidence of ischemia. Interpreted by me. Reviewed by me. Administered Medications: 16:27 Drug: fentaNYL (PF) 25 mcg Route: IVP; Site: left antecubital; iw 20:19 Follow up: Response: No adverse reaction; Pain is unchanged, physician notified tw5 16:27 Drug: Zofran (Ondansetron) 4 mg Route: IVP; Site: left antecubital; iw 20:19 Follow up: Response: No adverse reaction tw5 19:14 Drug: Pepcid (famotidine) 20 mg Route: IVP; Site: left antecubital; jg9 20:17 Follow up: Response: No adverse reaction tw5 19:16 Drug: NS 0.9% 1000 ml Route: IV; Rate: 1 bolus; Site: left antecubital; jg9 20:18 Follow up: Response: No adverse reaction; IV Status: Completed infusion; IV Intake: tw5 1000ml 20:17 Drug: Zosyn (piperacillin-tazobactam) 3.375 grams Route: IVPB; Infused Over: 60 mins; tw5 Site: left antecubital; 20:18 Drug: NS 0.9% 1000 ml Route: IV; Rate: 125 ml/hr; Site: left antecubital; tw5 20:40 Drug: Viscous Lidocaine Liquid (4 %) 5 ml Route: Mucous Membrane; tw5 20:49 Follow up: Response: No adverse reaction tw5 20:40 Drug: Dilaudid (HYDROmorphone) 0.5 mg Route: IVP; Site: left antecubital; tw5 20:48 Follow up: Response: No adverse reaction; Pain is decreased; RASS: Alert and Calm (0) tw5 Disposition Summary: 08/30/21 18:59 Hospitalization Ordered Hospitalization Status: Inpatient Admission mingo Provider: Ventura Castillo cha Location: Telemetry/MedSurg (Inpatient) mingo Condition: Fair mingo Problem: new mingo Symptoms: have improved mingo Bed/Room Type: Standard mingo Room Assignment: 206(08/30/21 21:00) bb Diagnosis - Other intestinal obstruction - SMALL BOWEL mingo - Abdominal pain, Generalized mingo - COPD/ Chronic obstructive pulmonary disease, unspecified mingo - Obesity, unspecified mingo Forms: - Medication Reconciliation Form mingo - SBAR form mingo Signatures: Dispatcher [employer] Esa Brewer MD MD cha Ballard, Brenda RN RN bb Adriane Moran RN RN iw Wood, Tiffany tw5 Moriah Almeida RN RN jg9 Corrections: (The following items were deleted from the chart) 21:00 18:59 mingo ha
--- NOTE | 2021-08-30 18:59 | ER ---
Nurse's Notes [facility] Name: Kindra Novoa Age: 66 yrs Sex: Female : 1955 Arrival Date: 08/30/2021 Time: 15:12 Bed 8 Private MD: Diagnosis: Other intestinal obstruction-SMALL BOWEL;Abdominal pain, Generalized;COPD/ Chronic obstructive pulmonary disease, unspecified;Obesity, unspecified Presentation: 08/30 16:14 Chief complaint: Patient states: abd pain all day today, has been trying to get iw scheduled fro surgery, has been trying to taper off her steroids, has PICC line in place with TPN infusion. Coronavirus screen: At this time, the client does not indicate any symptoms associated with coronavirus-19. Ebola Screen: Patient negative for fever greater than or equal to 101.5 degrees Fahrenheit, and additional compatible Ebola Virus Disease symptoms Patient denies exposure to infectious person. Patient denies travel to an Ebola-affected area in the 21 days before illness onset. No symptoms or risks identified at this time. Initial Sepsis Screen: Does the patient meet any 2 criteria? No. Patient's initial sepsis screen is negative. Does the patient have a suspected source of infection? No. Patient's initial sepsis screen is negative. Risk Assessment: Do you want to hurt yourself or someone else? Patient reports no desire to harm self or others. Onset of symptoms was August 30, 2021. 16:14 Method Of Arrival: Wheelchair iw 16:14 Acuity: KAROL 3 iw Triage Assessment: 19:00 Pain: Complains of pain in left lower quadrant and right lower quadrant and left upper jg9 quadrant and right upper quadrant Pain currently is 9 out of 10 on a pain scale. GI: Reports lower abdominal pain, upper abdominal pain. 19:20 General: Appears distressed, uncomfortable, Behavior is anxious, crying. jg9 Historical: - Allergies: 16:16 Ciprofloxacin; iw 16:16 Latex, Natural Rubber; iw 16:16 Flagyl; iw - Home Meds: 16:16 atorvastatin 10 mg Oral tab [Active]; bupropion HCl 150 mg Oral tab 2 times per day iw [Active]; cetirizine 10 mg Oral cap [Active]; hyoscyamine sulfate 0.125 mg Oral tab [Active]; levothyroxine 25 mcg cap [Active]; lisinopril 5 mg Oral tab [Active]; metoprolol tartrate 50 mg Oral tab 2 times per day [Active]; [place] 5-325 mg Oral tab 1 tab every 6 hours [Active]; ondansetron HCl 4 mg Oral tab [Active]; pantoprazole 40 mg Oral TbEC once daily [Active]; sertraline 200mg Oral tab nightly [Active]; - PMHx: 16:16 Depression; Insulin Resistance; Hypothyroidism; Hypertension; Crohn's Disease; Colitis; iw bowel obstruction; - Immunization history:: Adult Immunizations unknown. - Social history:: Smoking status: Patient denies any tobacco usage or history of. Screenin:19 Abuse screen: Denies threats or abuse. Denies injuries from another. Nutritional jg9 screening: on TPN due to [place]. Tuberculosis screening: No symptoms or risk factors identified. Fall Risk None identified. Assessment: 18:50 GI: Bowel sounds present X 4 quads. Abd is soft X 4 quads Abdomen is tender to jg9 palpation X 4 quads. 20:47 General: Reports "I dont feel good. Someone help me.". Pain: Pain currently is 6 out of tw5 10 on a pain scale. Vital Signs: 16:13 BP 99 / 59; Pulse 103; Resp 20; Temp 97.9; Pulse Ox 98% on R/A; Weight 108.86 kg; iw Height 5 ft. (152.40 cm); 18:50 BP 123 / 66; Pulse 98; Resp 17 S; Pulse Ox 97% ; Pain 9/10; jg9 19:00 BP 124 / 72; Pulse 99; Resp 20 S; Pulse Ox 97% ; jg9 20:47 Pulse 96; Resp 18; Pulse Ox 100% on R/A; Pain 6/10; tw5 16:13 Body Mass Index 46.87 (108.86 kg, 152.40 cm) ED Course: 15:12 Patient arrived in ED. ja2 16:16 Triage completed. iw 16:17 Arm band placed on. iw 16:19 Esa Swain MD is Attending Physician. mingo 16:22 Inserted saline lock: 20 gauge in left antecubital area, using aseptic technique. Blood mb7 collected. 16:22 CBC with Diff Sent. mb7 16:22 CMP Sent. mb7 16:22 Lipase Sent. mb7 16:40 Troponin High Sensitivity Sent. mb7 17:42 CT Abd/Pelvis - IV Contrast Only In Process Unspecified. EDMS 18:49 Moriah Almeida, RN is Primary Nurse. jg9 18:56 Ventura Castillo is Hospitalizing Provider. mingo 19:00 Patient has correct armband on for positive identification. Bed in low position. Call jg9 light in reach. Side rails up X 1. 19:04 EKG done, by ED staff, reviewed by Esa Swain MD. mb7 19:05 Primary Nurse role handed off by Moriah Almeida, RN tw5 19:05 Florinda Nagel is Primary Nurse. tw5 19:35 Chest Single View XRAY In Process Unspecified. EDMS 19:35 Abdomen 1 View (KUB) XRAY In Process Unspecified. EDMS 20:47 Door closed. tw5 20:47 Romero cath inserted, using sterile technique, 16 Fr., by ar, balloon inflated, to tw5 gravity drainage, NGT: inserted 12 Fr. via right nare. verified placement of air over stomach, verified return of gastric contents, to intermittent suction. Patient tolerated well. Administered Medications: 16:27 Drug: fentaNYL (PF) 25 mcg Route: IVP; Site: left antecubital; iw 20:19 Follow up: Response: No adverse reaction; Pain is unchanged, physician notified tw5 16:27 Drug: Zofran (Ondansetron) 4 mg Route: IVP; Site: left antecubital; iw 20:19 Follow up: Response: No adverse reaction tw5 19:14 Drug: Pepcid (famotidine) 20 mg Route: IVP; Site: left antecubital; jg9 20:17 Follow up: Response: No adverse reaction tw5 19:16 Drug: NS 0.9% 1000 ml Route: IV; Rate: 1 bolus; Site: left antecubital; jg9 20:18 Follow up: Response: No adverse reaction; IV Status: Completed infusion; IV Intake: tw5 1000ml 20:17 Drug: Zosyn (piperacillin-tazobactam) 3.375 grams Route: IVPB; Infused Over: 60 mins; tw5 Site: left antecubital; 20:18 Drug: NS 0.9% 1000 ml Route: IV; Rate: 125 ml/hr; Site: left antecubital; tw5 20:40 Drug: Viscous Lidocaine Liquid (4 %) 5 ml Route: Mucous Membrane; tw5 20:49 Follow up: Response: No adverse reaction 20:40 Drug: Dilaudid (HYDROmorphone) 0.5 mg Route: IVP; Site: left antecubital; tw5 20:48 Follow up: Response: No adverse reaction; Pain is decreased; RASS: Alert and Calm (0) Intake: 20:18 IV: 1000ml; Total: 1000ml. Outcome: 18:59 Decision to Hospitalize by Provider. mingo 22:33 Patient left the ED. ll3 Signatures: Dispatcher [employer] Esa Brewer MD MD cha Williams, Irene, RN Lucille Dawn Tiffany tw5 Vesna Garsia RN RN ll3 Ninfa Calle Jennifer RN RN jg9
[2021-08-30] MEDS ORDERED: NA CHLORIDE 0.9% 100 ML ONE (19:07)
[2021-08-30] MEDS ORDERED: PIPERACIL/TAZO 3.375 GM VIAL IV ONE (19:07)
[2021-08-30] MEDS ORDERED: NA CHLORIDE 0.9% 1,000 ML ONE (19:07)
[2021-08-30] MEDS ORDERED: FAMOTIDINE 20 MG/2 ML VIAL IV ONE (19:07)
--- NOTE | 2021-08-30 19:43 | RAD REPORT ---
EXAM DESCRIPTION: RAD - Abdomen 1 View (KUB) - 08/30/2021 7:33 pm CLINICAL HISTORY: Abdomen pain FINDINGS: Mildly to moderately dilated loops of jejunum. Some are fluid-filled and not well seen on this exam. Remainder small bowel decompressed. This likely represents a mechanical obstruction
--- NOTE | 2021-08-30 19:44 | RAD REPORT ---
EXAM DESCRIPTION: Bhakti Single View08/30/2021 7:33 pm CLINICAL HISTORY: Abdominal pain COMPARISON: June 2021 FINDINGS: The lungs appear clear of acute infiltrate. The heart is normal size IMPRESSION: No acute abnormalities displayed
[2021-08-30] MEDS ORDERED: LIDOCAINE VISCOUS 2% SOLN 15 ML UDC ONE (20:17)
[2021-08-30] MEDS ORDERED: HYDROMORPHONE HCL 0.5 MG/0.5 ML INJ ONE (20:45)
--- NOTE | 2021-08-30 20:49 | P.HP ---
Certification for Inpatient Patient admitted to: Observation With expected LOS: <2 Midnights Patient will require the following post-hospital care: None Practitioner: I am a practitioner with admitting privileges, knowledge of patient current condition, hospital course, and medical plan of care. Services: Services provided to patient in accordance with Admission requirements found in Title 42 Section 412.3 of the Code of Federal Regulations Patient History Date of Service: 08/30/21 Reason for admission: Small bowel obstruction, abdominal pain, nausea and vomiting History of Present Illness: 66 y o female patient with medical history significant for hypothyroidism, prediabetes, hypertension, hyperlipidemia, history of depression and Crohn's disease with recurrent small bowel obstruction secondary to adhesions in the abdomen was evaluated for episode of abdominal pain with nausea vomiting and found to have small bowel obstruction. She started having issues with increased abdominal pain this morning and subsequently came to the ER with a diagnosis of small bowel obstruction after CT of the abdomen was done. She was admitted for observation and for surgeon evaluation. Allergies ciprofloxacin Allergy (Verified 08/30/21 22:33) Itching/Hives/Rash latex [Latex] Allergy (Verified 08/30/21 22:33) Itching/Hives/Rash Latex, Natural Rubber Allergy (Verified 08/30/21 22:33) Unknown metronidazole Allergy (Verified 08/30/21 22:33) Itching/Hives/Rash Home Medications: Levothyroxine Sodium 25 mcg PO [id number] 07/27/20 Sertraline [Zoloft*] 200 mg PO BEDTIME 07/27/20 buPROPion HCL [Bupropion HCl] 150 mg PO DAILY 12/10/20 Ondansetron [Zofran (Odt)*] 4 mg PO Q6H PRN #10 tab 03/08/21 Atorvastatin Calcium 10 mg PO DAILY 04/05/21 Metoprolol Succinate [Toprol Xl*] 50 mg PO BID 04/05/21 Acetaminophen 160 mg PO Q4H PRN 06/05/21 Cetirizine HCl [Zyrtec] 1 tab PO DAILY 06/05/21 Hyoscyamine Sulfate [Levsin TAB*] 0.125 tab PO Q4HP PRN 06/05/21 Pantoprazole Sodium [Protonix] 1 tab PO DAILY 06/05/21 Bupropion HCl [Wellbutrin] 1 tab PO BEDTIME 08/04/21 Gatifloxacin 1 drop EACH EYE QID 08/04/21 predniSONE [Deltasone*] 20 mg PO DAILY 08/04/21 Amlodipine [Norvasc*] 5 mg PO DAILY 30 Days #30 tab 08/07/21 Lisinopril [Zestril] 5 mg PO DAILY 30 Days #30 tab 08/07/21 predniSONE [Deltasone] 20 mg PO SEECOM 14 Days #20 tab 08/07/21 - Past Medical/Surgical History Diabetic: No -: HTN -: Prediabetes -: Hypothyroidism -: Depression -: Recurrent SBO -: GERD -: Crohn's disease -: Colitis -: Psychosocial/ Personal History: Patient is . - Family History Father -: Cancer Notes: lung Cx Mother -: Heart disease - Social History Alcohol use: No CD- Drugs: No Caffeine use: Yes Review of Systems General: Unremarkable Eyes: Unremarkable ENT: Unremarkable Respiratory: Unremarkable Cardiovascular: Unremarkable Gastrointestinal: Nausea, Vomiting, Abdominal Pain Genitourinary: Unremarkable Musculoskeletal: Unremarkable Integumentary: Unremarkable Neurological: Unremarkable Physical Examination - Physical Exam General: Alert, Moderate distress HEENT: Atraumatic, Normocephalic Neck: Supple Respiratory: Normal air movement Cardiovascular: Regular rate/rhythm, Normal S1 S2 Gastrointestinal: Absent bowel sounds, Tenderness Neurological: Normal speech - Studies Laboratory Data (last 24 hrs) 08/30/21 16:20: Sodium 138, Potassium 3.8, BUN 26 H, Creatinine 1.06, Glucose 107 H, Total Bilirubin 0.5, AST 12 L, ALT 21, Alkaline Phosphatase 111, Lipase 101 08/30/21 16:20: WBC 11.7 H, Hgb 11.6 L, Hct 35.3 L, Plt Count 334 Assessment and Plan - Plan Small bowel obstruction Abdominal pain Nausea with vomiting Hypothyroidism History of hypertension History of Crohn's disease. Plan: Her present episode of abdominal pain with nausea vomiting is deemed secondary to recurrence of small bowel obstruction from internal adhesions. She has been started on bowel rest and NG tube to low wall suction. We have started pain control with as needed Dilaudid. We have added surgeon consulted for management recommendation. Will continue bowel rest and IV fluid for hydration. We will continue home meds as deemed appropriate especially for hypothyroidism. Prophylaxis: Lovenox for DVT prophylaxis CODE STATUS: Full code Disposition: Pending surgeon evaluation for possible surgical intervention. - Advance Directives Does patient have a Living Will: Yes Does patient have a Durable POA for Healthcare: No
[2021-08-30 22:24] VITALS: BMI 46.6
[2021-08-30] MEDS: HYDROMORPHONE HCL 0.5 MG/0.5 ML INJ IV PRN (22:31)
[2021-08-30] MEDS: ONDANSETRON 4 MG/2 ML VIAL IV PRN (22:31)
[2021-08-30] MEDS ORDERED: SODIUM CHLORIDE 0.9% 10ML INJ IV PRN (23:00)
[2021-08-31 02:55] LABS: Specific Gravity 1.025 (1.005-1.030); Urine Bilirubin Negative (Negative); Urine Blood 3+ (Negative); Urine Color Yellow (Yellow); Urine Glucose Negative (Negative); Urine Protein Trace (Negative); Urine Urobilinogen 0.2 mg/dL (0.2-1.0); Urine pH 5.5 (5.0-7.0)
[2021-08-31 02:57] LABS: Urine Clarity Turbid (Clear)
[2021-08-31 03:01] LABS: Urine Bacteria 20-50 /HPF (<20); Urine Mucus 1+ /HPF (None Seen); Urine RBC 21-50 /HPF (None Seen)
[2021-08-31] MEDS: ONDANSETRON 4 MG/2 ML VIAL IV PRN ×3 (06:02→17:44)
[2021-08-31] MEDS: HYDROMORPHONE HCL 0.5 MG/0.5 ML INJ IV PRN ×4 (06:02→22:19)
[2021-08-31 06:25] LABS: Absolute Lymphocytes (CBC) 1.4 K/uL (0.7-4.9); Hematocrit 28.9 % (36.0-45.0); Lymphocytes % 17.5 % (15.3-44.8); MCV 84.8 fL (80-100); MPV 7.1 fL (7.6-11.3); RBC Red Blood Cell Count 3.41 M/uL (3.86-4.86)
[2021-08-31 06:27] LABS: Magnesium 1.8 mg/dL (1.8-2.4); Phosphorus 3.5 mg/dL (2.5-4.9); Potassium 3.8 mmol/L (3.5-5.1)
[2021-08-31] MEDS ORDERED: MAGNESIUM SULFATE 1 gm IVPB 1 GM/100 ML BAG IV ONE (06:30)
[2021-08-31] MEDS: ENOXAPARIN 40 MG/0.4 ML SQ SCH (08:52)
[2021-08-31] MEDS: PANTOPRAZOLE 40 MG INJ IVP SCH (08:52)
[2021-08-31] MEDS ORDERED: METHYLPREDNISOLONE 40 MG INJ IV SCH (09:00)
[2021-08-31] MEDS ORDERED: KCL 20 MEQ/100 mL IVPB 20 MEQ/100 ML BAG IV SCH (09:00)
--- NOTE | 2021-08-31 10:37 | RAD REPORT ---
EXAM DESCRIPTION: RAD - Abdomen 1 View (KUB) - 08/31/2021 9:47 am CLINICAL HISTORY: SBO COMPARISON: Abdomen 1 View (KUB) dated 08/30/2021; Abdomen Pelvis W Contrast dated 08/30/2021 FINDINGS: NG tube is in good position. Stomach is decompressed. Small bowel dilatation pattern has i mproved. Fluid-filled bowel loops can become isodense and difficult to evaluate. No free air or pneum atosis. IMPRESSION: Small bowel dilatation pattern appears improved. Fluid-filled small bowel loops can beco me isodense and difficult to evaluate.
--- NOTE | 2021-08-31 14:03 | CON ---
Date of Consultation: 08/31/2021 Reason For Service: Small bowel obstruction. History Of Present Illness: This is a case of a 66-year-old patient, known by the Surgical Service leonel arechiga not only here but in [place] due to a stricture in the terminal ileum. They believe the patie nt may have inflammatory bowel disease, not sure about it. She has extensive workup even by colorect al surgeons in [place]. Actually, she is scheduled for possible surgery in next month or so. She canseco s been on a clear liquid diet for several weeks with supplemental nutrition. She has been using, but yesterday she had a weak point and she decided to deviate from her diet and then caused bowel obstru ction. Today, she feels better. She came overnight to the hospital and she understood what deviatio n of her diet may cause and she is fully aware of that and she is trying to avoid that in the future. They are trying to wean her off from medications and get her ready for surgery and she understood t he importance of being compliance with treatment. Allergies: INCLUDE CIPRO, LATEX, METRONIDAZOLE. Medications: Reviewed. Past Medical History: Includes depression, insulin-resistant diabetes, hypothyroidism, hypertension, Crohn disease, bowel obstructions. Social History: She does not smoke. She does not drink alcohol. Family History: Noncontributory. Review of Systems: Nausea, vomiting, abdominal pain. Ten points otherwise unremarkable. Physical Examination: General: The patient is awake, alert. HEENT: Pupils are equal and reactive. Anicteric. Neck: Supple. Chest: Clear. Abdomen: Soft and depressible. No guarding or rebound. No peritoneal signs. Mild tenderness, bett er than last night. Rectal: Deferred. Extremities: Good capillary refill. Laboratory Data: Blood work shows WBC count of 8, coming down from 11, hemoglobin of 9.8 and platele ts of 276. Potassium 3.8. CAT scan of abdomen and pelvis interpreted by Dr. Pelaez as small bowel obstruction, stricture within the proximal ascending colon is present, terminal ileum stricture susp ect. Assessment: It is a 66-year-old patient with small bowel obstruction. She knows what to do. She canseco s been on a clear liquid diet, but yesterday before this happened the brought some crackers a nd some chips and some of the things that she is not supposed to be eating, but she had a weak point and we understand that. Today, she feels better. She is passing gas. The imaging looks resolving s mall bowel obstruction. So I discussed the case with the primary doctor and if she improves clinical ly today, we can start clear liquid diet. She knows what to do. She knows the diet she is supposed to and she has supplemental diet given by the doctors in [place]. If she gets worse and develops ful l obstruction, then we have to make a decision between surgery in this institution or bring her back to her surgeons that she has already assigned in [place]. We will cross that bridge when we get ther e. In the meantime, she is improving. The abdomen is benign. RO/ALIREZA Voice ID: [id number] Report ID: [id number]
--- NOTE | 2021-08-31 20:35 | P.PN ---
Subjective Date of Service: 08/31/21 Subjective: No new changes, No C/O voiced, Improving Review of Systems 10-point ROS is otherwise unremarkable Physical Examination - Vital Signs Temperature: 97.6 F Blood Pressure: 102/56 Pulse: 70 Respirations: 18 Pulse Ox (%): 93 - Physical Exam General: Alert, In no apparent distress, Oriented x3 HEENT: Atraumatic, PERRLA, Other (NGT), EOMI Respiratory: Clear to auscultation bilaterally, Normal air movement Cardiovascular: Regular rate/rhythm, Normal S1 S2 Gastrointestinal: Normal bowel sounds, Soft and benign, Non-distended, No tenderness Musculoskeletal: No clubbing, No swelling, No tenderness Neurological: Sensation intact, Cranial nerves 3-12 intact - Studies Laboratory Data (last 24 hrs) 08/31/21 05:35: Sodium 136, Potassium 3.8, BUN 25 H, Creatinine 0.91, Glucose 98, Phosphorus 3.5, Magnesium 1.8 08/31/21 05:35: WBC 8.0 D, Hgb 9.8 L, Hct 28.9 L D, Plt Count 276 Medications List Reviewed: Yes Assessment & Plan - Problems (Diagnosis) (1) Small bowel obstruction Current Visit: No Status: Chronic (2) UTI (urinary tract infection) Current Visit: No Status: Acute Qualifiers: Urinary tract infection type: acute cystitis Hematuria presence: without hematuria Qualified Code(s): N30.00 - Acute cystitis without hematuria (3) Crohn's disease Current Visit: No Status: Chronic Qualifiers: (4) Depression Current Visit: No Status: Chronic Qualifiers: (5) Hypertension Current Visit: No Status: Chronic Qualifiers: (6) Hypothyroidism Current Visit: No Status: Chronic Qualifiers: - Plan Plan to clamp NG tube and see if patient tolerates diet. If she does and hopefully we can remove the NG tube. Continue with IV steroids. Continue with IV antibiotics. Anticipate discharge over the next 48 hours the patient continued to improve and tolerate diet. - Advance Directives Does patient have a Living Will: Yes Does patient have a Durable POA for Healthcare: No - Code Status/Comfort Care Code Status Assessed: Yes Code Status: Full Code Critical Care: No Time Spent Managing PTS Care (In Minutes): 45
[2021-08-31 22:51] VITALS: O2SAT 95
[2021-09-01] MEDS: HYDROMORPHONE HCL 0.5 MG/0.5 ML INJ IV PRN ×2 (04:32→11:27)
[2021-09-01 05:03] LABS: Magnesium 2.2 mg/dL (1.8-2.4); Potassium 4.2 mmol/L (3.5-5.1)
--- NOTE | 2021-09-01 07:48 | RAD REPORT ---
EXAM DESCRIPTION: RAD - Abdomen W Erect - 09/01/2021 6:54 am CLINICAL HISTORY: SBO Pain COMPARISON: Abdomen W Erect dated 08/03/2020; Abdomen 1 View (KUB) dated 08/31/2021; Abdomen 1 View ( KUB) dated 08/30/2021; Abdomen Pelvis W Contrast dated 08/30/2021 FINDINGS: Enteric tube is in the stomach. Dilatation pattern of large and small bowel is mild-to-mod erate predominately filled with air and bowel-gas pattern appears mildly improved since 08/30/2021. No free air seen. IMPRESSION: Gas-filled large small bowel loops are noted in the central abdomen which have mildly pr ominent. Overall, the pattern has mildly improved since 08/30/2021 CT study. Enteric tube is coiled i n the stomach.
[2021-09-01] MEDS: ENOXAPARIN 40 MG/0.4 ML SQ SCH (08:58)
[2021-09-01] MEDS: PANTOPRAZOLE 40 MG INJ IVP SCH (08:59)
[2021-09-01] MEDS ORDERED: METHYLPREDNISOLONE 125 MG INJ IV SCH (09:00)
[2021-09-01 12:25] VITALS: BP 129/60; TEMP 97.8
--- NOTE | 2021-09-01 13:48 | PN ---
Date of Progress Note: 09/01/2021 Diagnosis: Small bowel obstruction. Subjective: The patient is doing well. No complaint. No nausea, no vomiting today, passing flatus and starting to tolerate diet. Objective: Chest: Clear. Abdomen: Soft and depressible. No guarding or rebound. No perineal signs. Extremities: Good capillary refill. Laboratory Data: Blood work reviewed. X-ray reviewed. Plan: Continue diet. She has specific diet that she is supposed to follow by her doctors in [place] . She deviated a little bit out of that. She understands that and she will correct those actions. From the surgical standpoint, we have no plan for surgical intervention at this moment. RO/ALIREZA Voice ID: [id number] Report ID: [id number]
--- NOTE | 2021-09-01 14:42 | EKG ---
Test Date: 2021-08-30 Test Time: 19:04:17 Medical Reception Specialist: MB MEASUREMENT RESULTS: Intervals: Rate: 95 IL: 136 QRSD: 78 QT: 334 QTc: 419 [place]: P: 34 IL: 136 QRS: 41 T: 49 INTERPRETIVE STATEMENTS: Normal sinus rhythm Normal ECG Compared to ECG 04/04/2021 22:53:28 Myocardial infarct finding no longer present Electronically Signed On 09-01-21 14:41:12 CDT by Curt Hanley
--- NOTE | 2021-09-03 01:30 | P.DS ---
Discharge Date: 09/01/21 Disposition: ROUTINE DISCHARGE Discharge Condition: GOOD Reason for Admission: Small bowel obstruction, abdominal pain, nausea and vomiting - Problems (1) Small bowel obstruction Status: Chronic (2) UTI (urinary tract infection) Status: Acute Qualifiers: Urinary tract infection type: acute cystitis Hematuria presence: without hematuria Qualified Code(s): N30.00 - Acute cystitis without hematuria (3) Crohn's disease Status: Chronic Qualifiers: (4) Depression Status: Chronic Qualifiers: (5) Hypertension Status: Chronic Qualifiers: (6) Hypothyroidism Status: Chronic Qualifiers: Brief History of Present Illness: 66 y o female patient with medical history significant for hypothyroidism, prediabetes, hypertension, hyperlipidemia, history of depression and Crohn's disease with recurrent small bowel obstruction secondary to adhesions in the abdomen was evaluated for episode of abdominal pain with nausea vomiting and found to have small bowel obstruction. She started having issues with increased abdominal pain this morning and subsequently came to the ER with a diagnosis of small bowel obstruction after CT of the abdomen was done. She was admitted for observation and for surgeon evaluation. Hospital Course: Patient is doing much better. Patient clinical symptoms have resolved. She is advised to refrain from eating any solid foods in the to stay on a clear liquid diet until your surgery next month. She is supposed to have a partial small-bowel resection and anastomosis with the colon. Hopefully she will be compliant with her diet and follow up outpatient as advised. Vital Signs/Physical Exam: Temp Pulse Resp BP Pulse Ox 97.8 F 71 16 129/60 94 09/01/21 12:00 09/01/21 12:00 09/01/21 12:00 09/01/21 12:00 09/01/21 12:00 General: Alert, In no apparent distress, Oriented x3 Laboratory Data at Discharge: WBC 8.0 K/uL (4.3-10.9) D 08/31/21 05:35 Hgb 9.8 g/dL (12.0-15.0) L 08/31/21 05:35 Hct 28.9 % (36.0-45.0) L D 08/31/21 05:35 Plt Count 276 K/uL (152-406) 08/31/21 05:35 Sodium 139 mmol/L (136-145) 09/01/21 04:11 Potassium 4.2 mmol/L (3.5-5.1) 09/01/21 04:11 BUN 17 mg/dL (7-18) 09/01/21 04:11 Creatinine 0.68 mg/dL (0.55-1.3) 09/01/21 04:11 Glucose 132 mg/dL (74-106) H 09/01/21 04:11 Phosphorus 3.5 mg/dL (2.5-4.9) 08/31/21 05:35 Magnesium 2.2 mg/dL (1.8-2.4) 09/01/21 04:11 Total Bilirubin 0.5 mg/dL (0.2-1.0) 08/30/21 16:20 AST 12 U/L (15-37) L 08/30/21 16:20 ALT 21 U/L (12-78) 08/30/21 16:20 Alkaline Phosphatase 111 U/L (45-117) 08/30/21 16:20 Lipase 101 U/L (73-393) 08/30/21 16:20 Home Medications: Levothyroxine Sodium 25 mcg PO [id number] 07/27/20 Sertraline [Zoloft*] 200 mg PO BEDTIME 07/27/20 buPROPion HCL [Bupropion HCl] 150 mg PO DAILY 12/10/20 Ondansetron [Zofran (Odt)*] 4 mg PO Q6H PRN #10 tab 03/08/21 Atorvastatin Calcium 10 mg PO DAILY 04/05/21 Metoprolol Succinate [Toprol Xl*] 50 mg PO BID 04/05/21 Acetaminophen 160 mg PO Q4H PRN 06/05/21 Cetirizine HCl [Zyrtec] 1 tab PO DAILY 06/05/21 Hyoscyamine Sulfate [Levsin TAB*] 0.125 tab PO Q4HP PRN 06/05/21 Pantoprazole Sodium [Protonix] 1 tab PO DAILY 06/05/21 Bupropion HCl [Wellbutrin] 1 tab PO BEDTIME 08/04/21 Gatifloxacin 1 drop EACH EYE QID 08/04/21 Amlodipine [Norvasc*] 5 mg PO DAILY 30 Days #30 tab 08/07/21 Lisinopril [Zestril] 5 mg PO DAILY 30 Days #30 tab 08/07/21 predniSONE [Prednisone*] 15 mg PO SEECOM 08/31/21 Hydrocodone 7.5/APAP 325 [[place] 7.5/325 mg] 1 tab PO Q6H PRN #30 tab 09/01/21 New Medications: Hydrocodone 7.5/APAP 325 [[place] 7.5/325 mg] 1 tab PO Q6H PRN #30 tab PRN Reason: Pain Physician Discharge Instructions: -DC IV and DC home -Continue with clear liquid diet -Follow-up with PCP in 1 to 2 weeks -Follow-up with Surgery in 1 to 2 weeks -Please call Dr. Oliveira at [phone] if any questions regarding hospital stay -Please call nursing station at [phone] if any nursing or medication questions -Return to the emergency room if symptoms worsen Diet: Regular Activity: Ad jaylen Followup: Jonathan Castañeda MD [ACTIVE - CAN ADMIT] - (surgeon- call to schedule an appointment ) OOT,OOT [Primary Care Provider] - Time spent managing pt's care (in minutes): 35
--- OUTSIDE RECORDS SUMMARY | 2021-09-05 07:22 | XMS REPORT | Continuity of Care Document ---
:1955 Author Organization [facility] t Address [address] [place] [address] Dr. [address]oval [address] [place] [address] Care Team Providers Name Role Phone Kael MEADOWS MD, A Primary Care Physician JENKINS Attending Clinician Unavailable Abiola FUNES Attending Clinician Unavailable ANUPAM SINGH Attending Clinician Unavailable KARIN Attending Clinician Unavailable NILDA PEREZ Attending Clinician Unavailable CASEY Attending Clinician Unavailable Karin PARSONS Attending Clinician Ca VANN Attending Clinician Unavailable LUIS FELIPE Attending Clinician Unavailable Kaci PARSONS, R. Attending Clinician Yadira MURPHY Attending Clinician Unavailable ANUPAM SINGH Admitting Clinician Unavailable CASEY Admitting Clinician Unavailable Ca VANN Admitting Clinician Unavailable Payers Payer Name Policy Type Policy Number Effective Date Expiration Date S ource PPO/EPO - BCBS [id number] MEDICARE PART A [id number] \T\ B - MEDICARE BCBS PPO POS EPO [id number] 2010 CHOICE 00:00:00 CVCP-BCBS [id number] Problems Condition Condition Condition Status Onset Resolution Last Treating Co mments Source Name Details Category Date Date Treatment Clinician Date Crohn's Crohn's Disease Active 2020-02 [facility] disease disease 2-22 College (HCCode) (HCCode) 00:00: of 00 Medicin e Essential Essential Disease Active [facility] hypertensi hypertensi [facility]-13 [facility]osp[facility] 00 l Chest pain Chest pain Disease Active M ethodi 2-02 [facility] 00[facility] 00 l 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:00: [facility]ospita involving involving 00 l [place] 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 [...] Type Date Date Clinician BUSPIRON [facility] CIPROFLO Allergy Active [facility] FUROSEMI Allergy Active [facility] METRONID Allergy Active [facility] LATEX Allergy Active Low Itching 2020-[address] [facility] Latex Propensi Active Rash 2020-02 [facility] ty to 2-10 College adverse 00:00: of reaction 00 Medicin s to e substanc e NO KNOWN Allergy Active [facility] S Latex, Propensi Active Itching [facility] Natural ty to [facility] Rubber adverse Hospita reaction l s to drug Family History Family Member Diagnosis Comments Start Date Stop Date Source Natural father [facility] mother Heart disease [facility] Social History Social Habit Start Date Stop Date Quantity Comments Source History SDOH [facility] St[facility] Hospit al History SDOH [facility] Exposure to 2021-08-17 2021-08-27 Not sure [facility] Colleg e SARS-CoV-2 (event) 00:00:00 08:46:00 of Med icine Cigarettes smoked 2021-08-27 2021-08-27 [facility] current (pack per 00:00:00 00:00:00 of Medi day) - Reported Alcohol intake 2021-08-27 2021-08-27 .14 /d [facility] Col lege 00:00:00 00:00:00 of Medicine Tobacco use and 2021-08-27 2021-08-27 Smokeless tobacco [facility] exposure 00:00:00 00:00:00 non-user of Medicine History [facility] 2018-03-19 2018-03-19 1 [facility] Frequency 00:00:00 00:00:00 Hospita l History of tobacco 1995-02-04 Cigarette Smoker [facility] use 00:00:00 of Medicine Sex [birth year] F [facility] Co llege 00:00:00 00:00:00 of Medicine Smoking Status Start Date Stop Date Source Ex-smoker 2021-08-27 00:00:00 2021-08-27 00:00:00 [facility]lege of Medicine Never smoked tobacco [facility] Eric ege of Medicine Medications Ordered Filled Start Stop Current Ordering Indication Dosage Frequency Signature Comments Components Source Medication Medication Date Date Medication? Clinician (SIG) Name Name sonal Yes 10mg Take 10 mg Ran n (LIPITOR) 7-12 by mouth Eric ege 10 MG 09:06: daily. of tablet 53 Medicin e Cetirizine Yes Take 1 Baylo r HCl (ZYRTEC 7-12 Chew Tab Eric ege ALLERGY) 10 09:06: by mouth of MG CAPS 53 daily. Medicin e hyoscyamine Yes .125mg Take 0.125 Ran (ANASPAZ, 7-12 mg by [facility] LEVSIN) 09:06: mouth of 0.125 MG 53 every 4 Medicin tablet hours as e needed for Cramping. metoprolol Yes 50mg Take 50 mg B [facility] (TOPROL-XL) 7-12 by mouth Eric ege 50 MG XL 09:06: daily. of tablet 53 Medicin e hyoscyamine 2-0 Yes .125mg Take 0.125 Ran (ANASPAZ, 7-12 mg by [facility]) 09:06: mouth of 0.125 MG 53 every 4 Medicin tablet hours as e needed for Cramping. gatifloxaci 2-0 Yes 1[drp] Place 1 [facility] n (ZYMAXID) 7-12 Drop into Col lege 0.5 % 09:06: both eyes of ophthalmic 53 four times Med icin solution daily. e atorvastati 2021-0 Yes 10mg Take 10 mg [facility] n (LIPITOR) 6-28 by mouth Eric ege 10 MG 08:19: daily. of tablet 36 Medicin e Cetirizine 2021-0 Yes Take 1 Baylo r HCl (ZYRTEC 6-28 Chew Tab Eric ege ALLERGY) 10 08:19: by mouth of MG CAPS 36 daily. Medicin e hyoscyamine 2021-0 Yes .125mg Take 0.125 Ran (ANASPAZ, 6-28 mg by [facility]) 08:19: mouth of 0.125 MG 36 every 4 Medicin tablet hours as e needed for Cramping. metoprolol 2021-0 Yes 50mg Take 50 mg [facility] (TOPROL-XL) 6-28 by mouth Eric ege 50 MG XL 08:19: daily. of tablet 36 Medicin e pantoprazol 2021-0 Yes 40mg Take 40 mg [facility] e 6-28 by mouth [facility] (PROTONIX) 08:19: daily. of 40 MG 36 Medicin tablet e hyoscyamine 2021-0 Yes .125mg Take 0.125 Ran (LEVSIN) 6-28 mg by [facility] 0.125 MG 08:19: mouth of tablet 36 every 4 Medicin hours as e needed for Cramping. gatifloxaci 2-0 Yes 1[drp] Place 1 [facility] n (ZYMAXID) 6-28 Drop into Col lege 0.5 % 08:19: both eyes of ophthalmic 36 four times Med icin solution daily. e pantoprazol 2-0 Yes 40mg Take 40 mg [facility] e 6-28 by mouth [facility] (PROTONIX) 08:19: daily. of 40 MG 36 Medicin tablet e hyoscyamine Yes .125mg Take 0.125 [facility] (ANASPAZ, 5-12 mg by [facility] LEVSIN) 14:22: mouth of 0.125 MG 31 every 4 Medicin tablet hours as e needed for Cramping. metoprolol Yes 50mg Take 50 mg [facility] (TOPROL-XL) 5-12 by mouth Eric ege 50 MG XL 14:22: daily. of tablet 31 Medicin e pantoprazol Yes 40mg Take 40 mg [facility] e 5-12 by mouth [facility] (PROTONIX) 14:22: daily. of 40 MG 31 Medicin tablet e atorvastati Yes 10mg Take 10 mg Ran n (LIPITOR) 4-26 by mouth Eric ege 10 MG 15:06: daily. of tablet 43 Medicin e Cetirizine Yes Take 1 Baylo r HCl (ZYRTEC 4-26 Chew Tab Eric ege ALLERGY) 10 15:06: by mouth of MG CAPS 43 daily. Medicin e MINERAL OIL 2021- No Take by B aylor OR 03-29 mouth. [facility] 12:06: 00:00 of 07 :00 Medicin e MINERAL OIL 2021- No Take by Kamala ayherman OR 03-29 mouth. [facility] 12:06: 00:00 of 07 :00 Medicin e Mesalamine 2021- No Take by Sixto adams (PENTASA) 03-29 mouth. [facility] 500 MG CPCR 12:04: 00:00 of 57 :00 Medicin e Mesalamine 2021- No Take by Ba ylor (PENTASA) 03-29- mouth. [facility] 500 MG CPCR 12:04: 00:00 of 57 :00 Medicin e ferrous 2021-2021- No 325mg Take 325 Bayl or sulfate 325 03-29-11 mg by Colleg e (65 Fe) MG 12:04: 00:00 mouth of tablet 30 :00 daily. Medicin e ferrous 2021-0 2021- No 325mg Take 325 Bayl or sulfate 325 - 02-11 mg by Colleg e (65 Fe) MG 12:04: 00:00 mouth of tablet 30 :00 daily. Medicin e bisacodyl 2021-0 2- No 5mg Take 5 mg [facility] (DULCOLAX) 03-29 by mouth Eric ege 5 MG EC 12:03: 00:00 daily as of tablet 26 :00 needed for Medicin Constipati e on. Lactobacill 2021-0 2021- No Take by Kamala garcia 03-29 mouth. [facility] (ACIDOPHILU 12:03: 00:00 of S OR) 05 :00 Medicin e Cholecalcif 2021-0 Yes Take by Ba [facility] alex -11 mouth. [facility] (VITAMIN D) 11:46: of 125 MCG 58 Medicin (5000 UT) e CAPS metFORMIN 2021-0 Yes Take 1 Ran 500 MG TB24 2-11 capsule by Co llege 11:46: mouth of 58 daily. Medicin e Cholecalcif 2021-0 Yes Take by [facility] alex -11 mouth. [facility] (VITAMIN D) 11:46: of 125 MCG 58 Medicin (5000 UT) e CAPS metFORMIN 2021-0 Yes Take 1 Ran 500 MG TB24 2-11 capsule by Co llege 11:46: mouth of 58 daily. Medicin e Cholecalcif 2021-0 Yes Take by Ba ylor alex -11 mouth. [facility] (VITAMIN D) 11:46: of 125 MCG 58 Medicin (5000 UT) e CAPS metFORMIN 2021-0 Yes Take 1 [facility] 500 MG TB24 2-11 capsule by Co llege 11:46: mouth of 58 daily. Medicin e Cholecalcif 2021-0 Yes Take by Ba ylor alex 2-11 mouth. [facility] (VITAMIN D) 11:46: of 125 MCG 58 Medicin (5000 UT) e CAPS Cholecalcif 2021-0 Yes Take by Ba ylor alex 2-11 mouth. [facility] (VITAMIN D) 11:46: of 125 MCG 58 Medicin (5000 UT) e CAPS atorvastati 2021-0 Yes 10mg Take 10 mg Ran n (LIPITOR) -11 by mouth Eric ege 10 MG 11:46: daily. of tablet 58 Medicin e Cetirizine 0 Yes Take 1 Baylo r HCl (ZYRTEC 2-11 Chew Tab Eric ege ALLERGY) 10 11:46: by mouth of MG CAPS 58 daily. Medicin e hyoscyamine Yes .125mg Take 0.125 Ran (LEVSIN) 2-11 mg by [facility] 0.125 MG 11:46: mouth of tablet 58 [...] 58 Medicin e Acetaminoph Yes Take by [facility] en (TYLENOL 2-11 mouth. Colleg e CHILDRENS) 11:29: Take by of 160 MG/5ML 58 mouth q 4 Medi renea SUSP hours prn e Acetaminoph 2021-0 Yes Take by [facility] en (TYLENOL 2-11 mouth. Colleg e CHILDRENS) 11:29: Take by of 160 MG/5ML 58 mouth q 4 Medi renea SUSP hours prn e Acetaminoph 2021-0 Yes Take by [facility] en (TYLENOL 2-11 mouth. Colleg e CHILDRENS) 11:29: Take by of 160 MG/5ML 58 mouth q 4 Medi renea SUSP hours prn e Acetaminoph 2021-0 Yes Take by [facility] en (TYLENOL 2-11 mouth. Colleg e CHILDRENS) 11:29: Take by of 160 MG/5ML 58 mouth q 4 Medi renea SUSP hours prn e predniSONE 2021-0 Yes [id number] 20mg Take 1 [facility] (DELTASONE) 2-11 Tablet by Col lege 20 MG 00:00: mouth of tablet 00 daily. Medicin Taper by 5 e mg every week. predniSONE 2021-0 Yes [id number] Take 20 mg [facility] (DELTASONE) 2-11 po qd. Colleg e 5 MG tablet 00:00: Start of 00 tapering Medicin off by 5 e mg every 7 days after the 04/08/21. predniSONE 2021-0 Yes [id number] 20mg Take 1 [facility] (DELTASONE) 2-11 Tablet by Col lege 20 MG 00:00: mouth of tablet 00 daily. Medicin Taper by 5 e mg every week. predniSONE 2021-0 Yes [id number] Take 20 mg [facility] (DELTASONE) 2-11 po qd. Colleg e 5 MG tablet 00:00: Start of 00 tapering Medicin off by 5 e mg every 7 days after the 04/08/21. predniSONE 2021-0 Yes [id number] 20mg Take 1 [facility] (DELTASONE) 2-11 Tablet by Col lege 20 MG 00:00: mouth of tablet 00 daily. Medicin Taper by 5 e mg every week. predniSONE 2021-0 Yes [id number] Take 20 mg [facility] (DELTASONE) 2-11 po qd. Colleg e 5 MG tablet 00:00: Start of 00 tapering Medicin off by 5 e mg every 7 days after the 04/08/21. predniSONE 2021-0 Yes [id number] 20mg Take 1 [facility] (DELTASONE) 2-11 Tablet by Col lege 20 MG 00:00: mouth of tablet 00 daily. Medicin Taper by 5 e mg every week. MINERAL OIL 2020-02 Yes Take by Sixto adams OR 2-10 mouth. [facility] 09:20: of 34 Medicin e Cholecalcif 2020-02 Yes Take by bryan alex 2-10 mouth. [facility] (VITAMIN D) 09:20: of 125 MCG 34 Medicin (5000 UT) e CAPS ferrous 2020-02 Yes 325mg Take 325 Baylo r sulfate 2-10 mg by [facility] (FEROSUL) 09:19: mouth of 325 (65 Fe) 41 daily. Medici n MG tablet e Mesalamine 2020-02 Yes Take by [facility] (PENTASA) 2-10 mouth. [facility] 500 MG CPCR 09:19: of 41 Medicin e predniSONE 2020-02 Yes Ran (DELTASONE) -26 College 20 MG 00:00: of tablet 00 Medicin e predniSONE 2020-02- No 20mg Take 20 mg Ran (DELTASONE) 03-13 by mouth Col lege 20 MG 00:00: 00:00 daily. of tablet 00 :00 Medicin e predniSONE 2020-02- No 20mg Take 20 mg [facility] (DELTASONE) 1-26 02-11 by mouth Col lege 20 MG 00:00: [...] 2020-02 Yes 40mg Take 40 mg [facility] e 12 by [facility] (PROTONIX) 00:00: daily. of 40 MG 00 Medicin tablet e pantoprazol 2020-02- No 40mg Take 40 mg Ran e 02-27 by [facility] (PROTONIX) 00:00: 00:00 daily. of 40 MG 00 :00 Medicin tablet e pantoprazol 2020-02- No 40mg Take 40 mg Ran e 02-27 by [facility] (PROTONIX) 00:00: 00:00 daily. of 40 MG 00 :00 Medicin tablet e lisinopril 2020-02 Yes 1 po daily B ambrocio (PRINIVIL, 08 in the [facility]) 5 00:00: morning of MG tablet 00 Medicin e lisinopril 2020-02 Yes 1 po daily B aylor (PRINIVIL, 02-23 in the [facility]) 5 00:00: morning of MG tablet 00 Medicin e lisinopril 2020-02 Yes 1 po daily B [facility] (PRINIVIL, 02-23 in the [facility]) 5 00:00: morning of MG tablet 00 Medicin e lisinopril 2020-02 Yes 1 po daily B [facility]or (PRINIVIL, 02-23 in the [facility]) 5 00:00: morning of MG tablet 00 Medicin e lisinopril 2020-02 Yes 1 po daily B [facility] (PRINIVIL, 02-23 in the [facility]) 5 00:00: morning of MG tablet 00 Medicin e lisinopril 2020-02 Yes 1 po daily B [facility] (PRINIVIL, 02-23 in the [facility]) 5 00:00: morning of MG tablet 00 Medicin e sertraline 2020-02 Yes Ran (ZOLOFT) 1 [facility] 100 MG 00:00: of tablet 00 Medicin e sertraline 2020-02 Yes [facility] (ZOLOFT) 02-17 [facility] 100 MG 00:00: of tablet 00 Medicin e buPROPion 2020-02 Yes TAKE 2 Ran (WELLBUTRIN 1-02 TABLETS BY Co llege ) 75 MG 00:00: MOUTH of tablet 00 EVERY Medicin MORNING e AND 1 TABLET BY MOUTH EVERY EVENING buPROPion 2020-02 Yes TAKE 2 [facility] (WELLBUTRIN 1-02 TABLETS BY Co llege ) 75 MG 00:00: MOUTH of tablet 00 EVERY Medicin MORNING e AND 1 TABLET BY MOUTH EVERY EVENING sertraline 2020-02 Yes [facility] (ZOLOFT) 02-17 [facility] 100 MG 00:00: of tablet 00 Medicin e buPROPion 2020-02 Yes TAKE 2 [facility] (WELLBUTRIN 1-02 TABLETS BY Co llege ) 75 MG 00:00: MOUTH of tablet 00 EVERY Medicin MORNING e AND 1 TABLET BY MOUTH EVERY EVENING sertraline 2020-02 Yes [facility] (ZOLOFT) 02-17 [facility] 100 MG 00:00: of tablet 00 Medicin e buPROPion 2020-02 Yes TAKE 2 [facility] (WELLBUTRIN 1-02 TABLETS BY [employer] ) 75 MG 00:00: MOUTH of tablet 00 EVERY Medicin MORNING e AND 1 TABLET BY MOUTH EVERY EVENING sertraline 2020-02 Yes [facility] (ZOLOFT) 1-02 [facility] 100 MG 00:00: of tablet 00 Medicin e buPROPion 2020-02 Yes TAKE 2 [facility] (WELLBUTRIN 1-02 TABLETS BY [employer] ) 75 MG 00:00: MOUTH of tablet 00 EVERY Medicin MORNING e AND 1 TABLET BY MOUTH EVERY EVENING sertraline 2020-02 Yes [facility] (ZOLOFT) 02-17 College 100 MG 00:00: of tablet 00 Medicin e buPROPion 2020-02 Yes TAKE 2 [facility] (WELLBUTRIN 1-02 TABLETS BY [employer] ) 75 MG 00:00: MOUTH of tablet 00 EVERY Medicin MORNING e AND 1 TABLET BY MOUTH EVERY EVENING Adalimumab 2020-02 Yes [facility] (HUMIRA 0-25 [facility] PEN) 40 00:00: of MG/0.8ML 00 Medicin injection e Adalimumab 2020-02- No [facility] (HUMIRA 0-25 01-14 College PEN) 40 00:00: 00:00 of MG/0.8ML 00 :00 Medicin injection e levothyroxi Yes levothyrox [facility] 09-17 ine 25 mcg [facility] (SYNTHROID) 00:00: tablet of 25 MCG 00 TAKE 1 Medicin tablet TABLET BY e MOUTH DAILY IN THE MORNING WITH JUST A SIP OF WATER. WAIT 30 MINUTES BEFORE EATING OR DRINKING ANYTHING levothyroxi 0 Yes levothyrox [facility] 09-17 ine 25 mcg [facility] (SYNTHROID) 00:00: tablet of 25 MCG 00 TAKE 1 Medicin tablet TABLET BY e MOUTH DAILY IN THE MORNING WITH JUST A SIP OF WATER. WAIT 30 MINUTES BEFORE EATING OR DRINKING ANYTHING levothyroxi 0 Yes levothyrox [facility] 09-17 ine 25 mcg [facility] (SYNTHROID) 00:00: tablet of 25 MCG 00 TAKE 1 Medicin tablet TABLET BY e MOUTH DAILY IN THE MORNING WITH JUST A SIP OF WATER. WAIT 30 MINUTES BEFORE EATING OR DRINKING ANYTHING levothyroxi 2020-0 Yes levothyrox [facility] 09-17 ine 25 mcg [facility] (SYNTHROID) 00:00: tablet of 25 MCG 00 TAKE 1 Medicin tablet TABLET BY e MOUTH DAILY IN THE MORNING WITH JUST A SIP OF WATER. WAIT 30 MINUTES BEFORE EATING OR DRINKING ANYTHING levothyroxi Yes levothyrox [facility] 09-17 ine 25 mcg [facility] (SYNTHROID) 00:00: tablet of 25 MCG 00 TAKE 1 Medicin tablet TABLET BY e MOUTH DAILY IN THE MORNING WITH JUST A SIP OF WATER. WAIT 30 MINUTES BEFORE EATING OR DRINKING ANYTHING levothyroxi 0 Yes levothyrox [facility] 09-17 ine 25 mcg [facility] (SYNTHROID) 00:00: tablet of 25 MCG 00 TAKE 1 Medicin tablet TABLET BY e MOUTH DAILY IN THE MORNING WITH JUST A SIP OF WATER. WAIT 30 MINUTES BEFORE EATING OR DRINKING ANYTHING lisinopriL- 0 Yes [id number] 1{tbl} QD TAKE 1 [facility] hydrochloro 7-[address] thiazide 00:00: MOUTH Hospita (PRINZIDE) 00 DAILY l 10-12.5 mg per tablet metoprolol 2020-0 Yes [id number] TAKE 1 Me thodi tartrate 7-29 TABLET(50 st (LOPRESSOR) 00:00: MG) BY [facility]osp [facility] 50 mg 00 MOUTH l tablet TWICE DAILY metoprolol 2020-0 2020- No [id number] TAKE 1 M ethodi tartrate 4-26 07-29 TABLET(50 st (LOPRESSOR) 00:00: 00:00 MG) BY Hos alba 50 mg 00 :00 MOUTH l tablet TWICE DAILY lisinopriL- 2020-0 202- No [id number] 1{tbl} QD TAKE 1 [facility] hydrochloro 4-26 07-[address] thiazide 00:00: 00:00 MOUTH [facility]osp[facility] (PRINZIDE) 00 :00 DAILY l 10-12.5 mg per tablet lisinopriL- 2020-0 2020- No [id number] 1{tbl} QD Take 1 [facility] hydrochloro 1-25 04-[address] thiazide 00:00: 00:00 mouth [facility]osp[facility] (PRINZIDE) 00 :00 daily. l 10-12.5 mg per tablet metoprolol 2020-0 2020- No [id number] 50mg Q.5D Take 1 M ethodi tartrate 1-25 04-26 tablet (50 st (LOPRESSOR) 00:00: 00:00 mg total) Hospita 50 mg 00 :00 by mouth 2 l tablet (two) times a day. lisinopril- 2020- No [id number] 1{tbl} QD TAKE 1 [facility] hydrochloro 03-[address] thiazide 00:00: 00:00 MOUTH [facility] (PRINZIDE) 00 :00 DAILY l 10-12.5 mg per tablet metoprolol 2020- No [id number] TAKE 1 M ethodi tartrate 03-17 TABLET(50 [...] by Met hodi in-folic 8-[address] ac-aui546 16:39: Hospita 200 mcg 47 l tablet coenzyme Yes [facility] Q10 (CO 09-23 st Q-10) 100 00:00: Hospita mg capsule 00 l cholecalcif Yes Method i alex, 8-02 st vitamin D3, 00:00: Hospit a (VITAMIN 00 l D3) 5,000 unit tablet docusate 2018-0 Yes [facility] sodium 8-01 st (COLACE) 00:00: Hospita 100 MG 00 l capsule ferrous 0 Yes [facility] sulfate 325 7-17 st (65 FE) MG 00:00: Hospita tablet 00 l sertraline 0 Yes [facility] (ZOLOFT) 7-15 st 100 MG 00:00: Hospita tablet 00 l Vital Signs Vital Name Observation Time Observation Value Comments Source Systolic blood 2021-08-27 14:02:00 95 mm[Hg] [facility] Medicine Diastolic blood 2021-08-27 14:02:00 56 mm[Hg] [facility] Medicine Heart rate 2021-08-27 14:02:00 76 /min sp02 97 [facility] Body temperature 2021-08-27 14:02:00 36.72 Nadiya [facility] Respiratory rate 2021-08-27 14:02:00 16 /min [facility] Body height 2021-08-27 14:02:00 154.9 cm [facility] Body weight 2021-08-27 14:02:00 116.756 kg [facility] BMI 2021-08-27 14:02:00 48.64 kg/m2 [facility] WEIGHT 2021-08-15 05:40:00 111.9 kg WEIGHT 2021-08-14 06:00:00 112.9 kg WEIGHT 2021-08-15 05:40:00 111.9 kg WEIGHT 2021-08-14 06:00:00 112.9 kg Systolic blood 2021-08-13 13:12:00 131 mm[Hg] [facility] Medicine Diastolic blood 2021-08-13 13:12:00 84 mm[Hg] [facility] Medicine Heart rate 2021-08-13 13:12:00 63 /min spo2 97 [facility] Body temperature 2021-08-13 13:12:00 36.67 Nadiya [facility] Body height 2021-08-13 13:12:00 154.9 cm Ran [facility] Body weight 2021-08-13 13:12:00 115.032 kg [facility] C [facility] Medicine BMI 2021-08-13 13:12:00 47.92 kg/m2 [facility] ollege of Medicine Systolic blood 2021-06-27 19:19:00 111 mm[Hg] [facility] pressure Medicine Diastolic blood 2021-06-27 19:19:00 70 mm[Hg] [facility] Medicine Heart rate 2021-06-27 19:19:00 67 /min [facility] ollege of Medicine Body temperature 2021-06-27 19:19:00 36.11 Nadiya [facility] Respiratory rate 2021-06-27 19:19:00 16 /min [facility] Body height 2021-06-27 19:19:00 154.9 cm [facility] ollege of [facility] Body weight 2021-06-27 19:19:00 109.77 kg [facility] ollege of Medicine BMI 2021-06-27 19:19:00 45.73 kg/m2 [facility] C [facility] of Medicine WEIGHT 2021-05-17 12:46:00 52.98 kg WEIGHT 2021-05-17 06:25:00 107.911 kg WEIGHT 2021-05-17 12:46:00 52.98 kg WEIGHT 2021-05-17 06:25:00 107.911 kg Body weight 2021-03-29 17:28:00 110.678 kg [facility] ollege of Medicine BMI 2021-03-29 17:28:00 46[facility]10 [facility] Systolic blood 2021-03-29 17:28:00 143 mm[Hg] [facility] pressure Medicine Diastolic blood 2021-03-29 17:28:00 82 mm[Hg] [facility] pressure Medicine Heart rate 2021-03-29 17:28:00 60 /min [facility] ol[facility] of Medicine Body temperature 2021-03-29 17:28:00 36.22 Nadiya [facility] Respiratory rate 2021-03-29 17:28:00 16 /min [facility] Body height 2021-03-29 17:28:00 154[facility]9 [facility] height 2021-03-01 15:04:00 154.9 cm [facility] olle of [facility] Body weight 2021-03-01 15:04:00 107.593 kg [facility] BMI 2021-03-01 15:04:00 44.82 kg/m2 [facility] olle of [facility] HEIGHT 2021-02-03 05:20:00 154.9 cm WEIGHT 2021-02-03 05:20:00 106.505 kg HEIGHT 2021-02-03 05:20:00 154.9 cm WEIGHT 2021-02-03 05:20:00 106.505 kg Systolic blood 2021-01-25 15:06:00 122 mm[Hg] [facility] Medicine Diastolic blood 2021-01-25 15:06:00 80 mm[Hg] [facility] Medicine Heart rate 2021-01-25 15:06:00 81 /min [facility] Body temperature 2021-01-25 15:06:00 36.28 Nadiya [facility] Respiratory rate 2021-01-25 15:06:00 14 /min [facility] Body height 2021-01-25 15:06:00 154.9 cm [facility] Body weight 2021-01-25 15:06:00 106.142 kg [facility] BMI 2021-01-25 15:06:00 44.21 kg/m2 [facility] Procedures Procedure Date / Time Performing Clinician Source Performed CBC W/AUTO DIFF WITH 2021-07-16 09:57:55 [facility] BASIC METABOLIC PANEL 2021-07-16 09:57:55 [facility] HEPATIC FUNCTION PANEL 2021-07-16 09:57:55 [facility] SEDIMENTATION RATE 2021-07-16 09:57:55 [facility] 2021-07-16 09:57:55 [facility] Plan of Care Planned Activity Planned Date Details Comments Source Future Scheduled 2021-08-27 Screening for malignant [facility] 09:36:56 neoplasm of colon Medicine (procedure) [code = [id number]] Future Scheduled 2021-08-27 Screening for malignant [facility] of Test 09:36:56 neoplasm of breast Medicine (procedure) [code = [id number]] Future Scheduled 2021-08-27 TETANUS SHOT (ADULT) [facility] of Test 09:36:56 [code = TETANUS SHOT Medicin e (ADULT)] Future Scheduled 2021-08-27 BMI FOLLOW UP PLAN [code [facility] of Test 09:36:56 = BMI FOLLOW UP PLAN] Medici ne Future Scheduled 2021-08-27 Hepatitis C screening [facility] Test 09:36:56 (procedure) [code = Medicine [id number]] Future Scheduled 2021-08-27 ZOSTER VACCINE (1 of 2) [facility] Test 09:36:56 [code = ZOSTER VACCINE (1 Me dicine of 2)] Future Scheduled 2021-08-27 COVID-19 Vaccine (2 - [facility] Test 09:36:56 Pfizer series) [code = Medic ine COVID-19 Vaccine (2 - Pfizer series)] Future Scheduled 2021-08-27 MEDICARE IPPE (WELCOME TO [facility] Test 09:36:56 MEDICARE) [code = Medicine MEDICARE IPPE (WELCOME TO MEDICARE)] Future Scheduled 2021-08-27 FALL SCREEN [code = FALL [facility] 09:36:56 SCREEN] Medicine Future Scheduled 2021-08-27 Screening for [facility] of Test 09:36:56 osteoporosis (procedure) Med icine [code = [id number]] Future Scheduled 2021-08-27 Pneumococcal 65+ (1 - Ba [facility] Test 09:36:56 PCV) [code = Pneumococcal Me dicine 65+ (1 - PCV)] Future Scheduled 2021-08-27 FLU VACCINE > 6 MONTHS B [facility] Test 09:36:56 [code = FLU VACCINE > 6 Medi cine MONTHS] Future Scheduled 2021-08-13 Screening for malignant [facility] 08:16:08 neoplasm of colon Medicine (procedure) [code = 197281408] Future Scheduled 2021-08-13 Screening for malignant [facility] 08:16:08 neoplasm of breast Medicine (procedure) [code = 937889321] Future Scheduled 2021-08-13 TETANUS SHOT (ADULT) [facility] Test 08:16:08 [code = TETANUS SHOT Medicin e (ADULT)] Future Scheduled 2021-08-13 BMI FOLLOW UP PLAN [code [facility] 08:16:08 = BMI FOLLOW UP PLAN] Medici ne Future Scheduled 2021-08-13 Hepatitis C screening [facility] Test 08:16:08 (procedure) [code = Medicine [id number]] Future Scheduled 2021-08-13 ZOSTER VACCINE (1 of 2) [facility] 08:16:08 [code = ZOSTER VACCINE (1 Me dicine of 2)] Future Scheduled 2021-08-13 COVID-19 Vaccine (2 - [facility] Test 08:16:08 Pfizer series) [code = Medic ine COVID-19 Vaccine (2 - Pfizer series)] Future Scheduled 2021-08-13 MEDICARE IPPE (WELCOME TO [facility] 08:16:08 MEDICARE) [code = Medicine MEDICARE IPPE (WELCOME TO MEDICARE)] Future Scheduled 2021-08-13 FALL SCREEN [code = FALL [facility] 08:16:08 SCREEN] Medicine Future Scheduled 2021-08-13 Screening for [facility] of Test 08:16:08 osteoporosis (procedure) Med icine [code = [id number]] Future Scheduled 2021-08-13 Pneumococcal 65+ (1 - Ba [facility] Test 08:16:08 PCV) [code = Pneumococcal Me dicine 65+ (1 - PCV)] Future Scheduled 2021-08-13 FLU VACCINE > 6 MONTHS B [facility] 08:16:08 [code = FLU VACCINE > 6 Medi cine MONTHS] Future Scheduled 2021-06-27 Screening for malignant [facility] 14:20:32 neoplasm of colon Medicine (procedure) [code = 221562998] Future Scheduled 2021-06-27 Screening for malignant [facility] 14:20:32 neoplasm of breast Medicine (procedure) [code = 568793000] Future Scheduled 2021-06-27 TETANUS SHOT (ADULT) [facility] Test 14:20:32 [code = TETANUS SHOT Medicin e (ADULT)] Future Scheduled 2021-06-27 BMI FOLLOW UP PLAN [code [facility] 14:20:32 = BMI FOLLOW UP PLAN] Medici ne Future Scheduled 2021-06-27 Hepatitis C screening [facility] Test 14:20:32 (procedure) [code = Medicine 806573403] Future Scheduled 2021-06-27 ZOSTER VACCINE (1 of 2) [facility] 14:20:32 [code = ZOSTER VACCINE (1 Me dicine of 2)] Future Scheduled 2021-06-27 COVID-19 Vaccine (2 - [facility] Test 14:20:32 Pfizer 3-dose series) Medici ne [code = COVID-19 Vaccine (2 - Pfizer 3-dose series)] Future Scheduled 2021-06-27 MEDICARE IPPE (WELCOME TO [facility] 14:20:32 MEDICARE) [code = Medicine MEDICARE IPPE (WELCOME TO MEDICARE)] Future Scheduled 2021-06-27 FALL SCREEN [code = FALL [facility] Test 14:20:32 SCREEN] Medicine Future Scheduled 2021-06-27 Screening for [facility] of Test 14:20:32 osteoporosis (procedure) Med icine [code = 303660258] Future Scheduled 2021-06-27 Pneumococcal 65+ ([address] [facility] Test 14:20:32 - PPSV23) [code = Medicine Pneumococcal 65+ (1 of 1 - PPSV23)] Future Scheduled 2021-06-27 FLU VACCINE > 6 MONTHS B [facility] Test 14:20:32 [code = FLU VACCINE > 6 Medi cine MONTHS] Future Scheduled 2021-04-[address] [facility] Test 13:40:02 neoplasm of colon Medicine (procedure) [code = 981336908] Future Scheduled 2021-04-[address] [facility] Test 13:40:02 neoplasm of breast Medicine (procedure) [code = 136856145] Future Scheduled 2021-04-04 TETANUS SHOT (ADULT) [facility] Test 13:40:02 [code = TETANUS SHOT Medicin e (ADULT)] Future Scheduled 2021-04-04 BMI FOLLOW UP PLAN [code [facility] 13:40:02 = BMI FOLLOW UP PLAN] Medici ne Future Scheduled 2021-04-04 Hepatitis C screening [facility] Test 13:40:02 (procedure) [code = Medicine 112134719] Future Scheduled 2021-04-04 Human immunodeficiency B [facility] Test 13:40:02 virus screening Medicine (procedure) [code = 157384389] Future Scheduled 2021-04-04 Screening for malignant [facility] 13:40:02 neoplasm of cervix Medicine (procedure) [code = 240192130] Future Scheduled 2021-04-04 ZOSTER VACCINE (1 of 2) [facility] Test 13:40:02 [code = ZOSTER VACCINE (1 Me dicine of 2)] Future Scheduled 2021-04-04 FLU VACCINE > 6 MONTHS B [facility] 13:40:02 [code = FLU VACCINE > 6 Medi cine MONTHS] Future Scheduled 2021-04-04 COVID-19 Vaccine (2 - [facility] Test 13:40:02 Pfizer 3-dose series) Medici ne [code = COVID-19 Vaccine (2 - Pfizer 3-dose series)] Future Scheduled 2021-04-04 Screening for malignant [facility] 13:40:02 neoplasm of colon Medicine (procedure) [code = 416978620] Future Scheduled 2021-04-04 Screening for malignant [facility] 13:40:02 neoplasm of breast Medicine (procedure) [code = 831389101] Future Scheduled 2021-04-04 TETANUS SHOT (ADULT) [facility] Test 13:40:02 [code = TETANUS SHOT Medicin e (ADULT)] Future Scheduled 2021-04-04 BMI FOLLOW UP PLAN [code [facility] 13:40:02 = BMI FOLLOW UP PLAN] Medici ne Future Scheduled 2021-04-04 Hepatitis C screening [facility] Test 13:40:02 (procedure) [code = Medicine 449156341] Future Scheduled 2021-04-04 Human immunodeficiency [facility] 13:40:02 virus screening Medicine (procedure) [code = 475756657] Future Scheduled 2021-04-04 Screening for malignant [facility] 13:40:02 neoplasm of cervix Medicine (procedure) [code = 686432181] Future Scheduled 2021-04-04 ZOSTER VACCINE (1 of 2) [facility] 13:40:02 [code = ZOSTER VACCINE (1 Me dicine of 2)] Future Scheduled 2021-04-04 FLU VACCINE > 6 MONTHS B [facility] 13:40:02 [code = FLU VACCINE > 6 Medi cine MONTHS] Future Scheduled 2021-04-04 COVID-19 Vaccine (2 - [facility] Test 13:40:02 Pfizer 3-dose series) Medici ne [code = COVID-19 Vaccine (2 - Pfizer 3-dose series)] Future Scheduled 2021-01-[address] [facility] Test 09:15:59 neoplasm of colon Medicine (procedure) [code = 952257803] Future Scheduled 2021-01-[address] [facility] Test 09:15:59 neoplasm of breast Medicine (procedure) [code = 465698815] Future Scheduled 2021-01-25 TETANUS SHOT (ADULT) [facility] Test 09:15:59 [code = TETANUS SHOT Medicin e (ADULT)] Future Scheduled 2021-01-25 Hepatitis C screening [facility] Test 09:15:59 (procedure) [code = Medicine 851586186] Future Scheduled 2021-01-25 Human immunodeficiency B [facility] Test 09:15:59 virus screening Medicine (procedure) [code = 728482611] Future Scheduled 2021-01-[address] [facility] Test 09:15:59 neoplasm of cervix Medicine (procedure) [code = 828332846] Future Scheduled 2021-01-25 ZOSTER VACCINE (1 of 2) [facility] Test 09:15:59 [code = ZOSTER VACCINE (1 Me dicine of 2)] Future Scheduled 2021-01-25 FLU VACCINE > 6 MONTHS B [facility] Test 09:15:59 [code = FLU VACCINE > 6 Medi cine MONTHS] Future Scheduled 2021-01-25 COVID-19 Vaccine (2 - [facility] Test 09:15:59 Pfizer 2-dose series) Medici ne [code = COVID-19 Vaccine (2 - Pfizer 2-dose series)] Future Scheduled COVID-19 VACCINE (1) [facility] [code = COVID-19 VACCINE Hos pital (1)] Future Scheduled Hepatitis C screening [facility] (procedure) [code = Hospital 962122093] Future Scheduled Screening for malignant [facility] neoplasm of cervix Hospital (procedure) [code = 870814082] Future Scheduled BREAST CANCER SCREENING [facility] [code = BREAST CANCER Hospit al SCREENING] Future Scheduled COLONOSCOPY SCREENING [facility] Test [code = COLONOSCOPY Hospital SCREENING] Future Scheduled SHINGLES VACCINES (#1) [facility]ist Test [code = SHINGLES VACCINES Ho spital (#1)] Future Scheduled INFLUENZA VACCINE [code = [facility] INFLUENZA VACCINE] Hospital Encounters Start End Encounter Admission Attending Care Care Encounter Source Date/Time Date/Time Type Type Clinicians Facility Department ID 2021-08-27 2021-08-27 [facility].2.840.114 [id number] [facility] 08:46:50 11:11:12 Visit Purvi 350.1.13.21 Co llege 0.2.7.2.686 of [id number] [facility] renea 510 e 2021-08-13 2021-08-15 Inpatient [facility] [id number] [facility] 13:37:00 20:00:00 [facility] Med 2021-08-13 2021-08-13 Office [facility] [id number] [facility] 07:25:12 09:53:42 Visit Purvi 350.1.13.21 Co llege 0.2.7.2.686 of [id number] [facility] renea 510 e 2021-07-16 2021-07-16 Outpatient [facility] [id number] [facility] 08:53:05 23:59:00 Colleg e of Medicin e 2021-06-27 2021-06-27 Office FRAZIERADINA MANZANO 1.2.840.114 [id number] [facility] 13:13:17 16:06:41 Visit MANREET AMBULATOR 350.1.13.21 College Y 0.2.7.2.686 of [id number] [facility] renea 325 e 2021-06-11 2021-06-11 Outpatient [facility] [id number] [facility] 14:50:55 15:38:46 Colleg e of Medicin e 2021-05-20 2021-05-20 Outpatient [facility] [id number] [facility] 08:32:32 23:59:00 Colleg e of Medicin e 2021-05-17 2021-05-19 Inpatient ER [facility] [id number] [facility] 05:35:00 16:42:00 AHMED 2021-05-17 2021-05-[address] [facility] [id number] [facility] 00:00:00 23:59:00 Colleg e of Medicin e 2021-04-22 2021-04-[address] [facility] [id number] [facility] 08:34:02 23:59:00 Colleg e of Medicin e 2021-04-08 2021-04-[address] [facility] [id number] [facility] 08:22:34 23:59:00 Colleg e of Medicin e 2021-03-29 2021-03-29 Office ADINA Frazier 1.2.840.114 [id number] [facility] 11:00:00 13:34:50 Visit Manreet AMBULATOR 350.1.13.21 College Y 0.2.7.2.686 of [id number] Medi renea 325 e 2021-03-01 2021-03-01 Office KIM Frazier 1.2.840.114 [id number] [facility] 09:00:00 11:07:59 Visit Manreet AMBULATOR 350.1.13.21 College Y 0.2.7.2.686 of [id number] Medi renea 325 e 2021-02-03 2021-02-06 Inpatient ER [facility] [id number] [facility] 05:14:00 16:07:00 OBINNA 2021-01-25 2021-01-25 Office KIM FRAZIER [id number] [facility] 00:00:00 19:54:04 Visit MANREET AMBULATOR 350.1.13.21 College Y 0.2.7.2.686 of [id number] Medi renea 325 e 2020-09-12 2020-09-12 Toby Clemons 1.2.840.1 [id number] [facility] 00:00:00 00:00:00 Ace Taylor [address]31.1.[address] 3.430.2.7 Hospit a .3.177510 l .8 2020-06-11 2020-06-11 Toby Clemons 1.2.840.1 [id number] [facility] 00:00:00 00:00:00 Ace Taylor [address]12.1.[address] 3.430.2.7 Hospit a .3.172637 l .8 2020-03-12 2020-03-12 Javier Kelly 1.2.840.1 [id number] [facility] 00:00:00 00:00:[address] 3.430.2.7 Hospit a .3.343073 l .8 Results Test Description Test Time Test Comments Results Result [facility] e Comments MR, ENTEROGRAPHY, 2021-07-19 Unlisted ABDOMEN / PELVIS, 0 Reason for WITHOUT / WITH IV 16:25:00 Exam - Click MERLENE CRISTOBAL - CONTRAST Yes and Enter MEDICAL CENTERName: BRIGHT, Rosamaria ZELAYA : Below->No 1955 Sex: F FINAL REPORT MR, ENTEROGRAPHY, ABDOMEN / PELVIS, WITHOUT / WITH IV CONTRAST HISTORY: Crohn's exacerbation (Age > 17y) COMPARISON: CT abdomen pelvis 02/04/2021. TECHNIQUE: VoLumen oral contrast was administered to distend the small bowel, after which MRI of the abdomen and pelvis using an enterography protocol was performed with and without gadolinium. FINDINGS: Bowel: Stomach: Normally distended with normal folds. 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 Terminal ileum is moderately thick-walled and hyperemic. The tethered small bowel loop in the right lower quadrant appears mildly thick-walled and hyperemic and narrowed. The tethered portion of the cecum/ascending colon appears mildly thick-walled medially. The appendix is not visualized. A small bowel loop medial to this area of complex interloop fistulization is less thick-walled than 02/04/2021. Jejunal small bowel loops are dilated with a transition point in the region of tethering and narrowing at the interloop fistula.Peritoneum: No significant free fluid and no loculated fluid collections. 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 Additional Findings:Lung bases: Trace bilateral pleural effusions.Liver: Mild hepatomegaly.Gallbladder and bile ducts: Gallstones and mild gallbladder wall thickening. No biliary ductal dilation or filling defect. Gallbladder is underdistended.Spleen: Borderline enlarged.Pancreas: Pancreas divisum. A 5 mm T2 hyperintensity in the pancreatic tail. No significant main pancreatic ductal dilation.Adrenals: Unremarkable.Kidneys and ureters: Simple 2.4 cm right renal cyst, and a 1 cm left renal angiomyolipoma, no follow-up recommended. No solid renal mass and no hydronephrosis.Bladder: Unremarkable.Reproductive organs: Endometrial stripe is thickened up to 15 mm.Lymph nodes: Unremarkable.Vessels: UnremarkableAbdominal wall: Small fat-containing umbilical hernia.Bones: An L1 intraosseous hemangioma and multilevel degenerative changes of the visible spine. 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 2.There is active inflammation of the terminal ileum as well as in the tethered small and large bowel loops. There is no other evidence for active inflammatory bowel disease. Jejunal bowel loops which were significantly thick-walled to the left of the interloop fistula on 02/04/2021 have improved in appearance. 3.A likely partial small bowel obstruction in the jejunum from tethering and luminal narrowing from this interloop fistula 4.Endometrial stripe is thickened up to 15 mm. A gynecology consultation is recommended for consideration of an endometrial biopsy. 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 No significant main pancreatic ductal dilation. A one year follow-up MRCP is recommended. 6.Cholelithiasis and unchanged mild gallbladder wall thickening, possibly chronic cholecystitis. Signed: Christopher Vgea Verified Date/Time: 08/15/2021 16:25:49 Reading Location: [facility] B1 C013Y CT Body Reading Room C METABOLIC PANEL 2021-08-15 06:25:19 Test Item Value Reference Range Interpretation Comme nts SODIUM (BEAKER) (test code 139 meq/L 136-145 = 381) POTASSIUM (BEAKER) (test 4.0 meq/L 3.5-5.1 code = 379) CHLORIDE (BEAKER) (test 105 meq/L 98-107 code = 382) CO2 (BEAKER) (test code = 27 meq/L 22-29 355) BLOOD UREA NITROGEN 18 mg/dL 7-21 (BEAKER) (test code = 354) CREATININE (BEAKER) (test 0.74 mg/dL 0.57-1.25 code = 358) GLUCOSE RANDOM (BEAKER) 92 mg/dL 70-105 (test code = 652) CALCIUM (BEAKER) (test code 8.5 mg/dL 8.4-10.2 = 697) EGFR (BEAKER) (test code = 79 mL/min/1.73 sq m ESTIMATED GFR IS NOT 1092) ACCURATE CRE ATININE CLEARANCE IN [place] EDICTING GLOMERULAR FILT RATION RATE. ESTIMATED GFR IS NOT APPLICABLE FOR DIALYSIS PATIENTS. Scourer ID - [id number] 06:25:19 Test Item Value Reference Range Interpretation Comments MAGNESIUM (BEAKER) (test code = 2.5 mg/dL 1.6-2.6 627) Scourer ID - [id number] 06:25:19 Test Item Value Reference Range Interpretation Comments PHOSPHORUS (BEAKER) (test code = 2.7 mg/dL 2.3-4.7 604) Scourer ID - BSCBC W/PLT COUNT & AUTO [id number] 05:50:37 Test Item Value Reference Range Interpretation Comments WHITE BLOOD CELL COUNT (BEAKER) 9.4 K/ L 3.5-10.5 (test code = 775) RED BLOOD CELL COUNT (BEAKER) 3.78 M/ L 3.93-5.22 L (test code = 761) HEMOGLOBIN (BEAKER) (test code = 10.8 GM/DL 11.2-15.7 L 410) HEMATOCRIT (BEAKER) (test code = 34.9 % 34.1-44.9 411) MEAN CORPUSCULAR VOLUME (BEAKER) 92.3 fL 79.4-94.8 (test code = 753) MEAN CORPUSCULAR HEMOGLOBIN 28.6 pg 25.6-32.2 (BEAKER) (test code = 751) MEAN CORPUSCULAR HEMOGLOBIN CONC 30.9 GM/DL 32.2-35.5 L (BEAKER) (test code = 752) RED CELL DISTRIBUTION WIDTH 13.9 % 11.7-14.4 (BEAKER) (test code = 412) PLATELET COUNT (BEAKER) (test 294 K/CU MM 150-450 code = 756) MEAN PLATELET VOLUME (BEAKER) 9.3 fL 9.4-12.3 L (test code = 754) NUCLEATED RED BLOOD CELLS 0 /100 WBC 0-0 (BEAKER) (test code = 413) NEUTROPHILS RELATIVE PERCENT 55 % (BEAKER) (test code = 429) LYMPHOCYTES RELATIVE PERCENT 33 % (BEAKER) (test code = 430) MONOCYTES RELATIVE PERCENT 9 % (BEAKER) (test code = 431) EOSINOPHILS RELATIVE PERCENT 1 % (BEAKER) (test code = 432) BASOPHILS RELATIVE PERCENT 0 % (BEAKER) (test code = 437) NEUTROPHILS ABSOLUTE COUNT 5.19 K/ L 1.56-6.13 (BEAKER) (test code = 670) LYMPHOCYTES ABSOLUTE COUNT 3.07 K/ L 1.18-3.74 (BEAKER) (test code = 414) MONOCYTES ABSOLUTE COUNT (BEAKER) 0.88 K/ L 0.24-0.36 H (test code = 415) EOSINOPHILS ABSOLUTE COUNT 0.11 K/ L 0.04-0.36 (BEAKER) (test code = 416) BASOPHILS ABSOLUTE COUNT (BEAKER) 0.03 K/ L 0.01-0.08 (test code = 417) IMMATURE GRANULOCYTES-RELATIVE 1 % 0-1 PERCENT (BEAKER) (test code = 2801) [id number] 14:14:38 Test Item Value Reference Range Interpretation Comments TRIGLYCERIDES (BEAKER) (test code = 163 mg/dL 540) TRIGLYCERIDE REFERENCE RANGELow Risk <150Borderline Risk 150-199High Risk 200-499Very High Risk>=500Operator ID - MOSARS-COV2/RT-PCR ([facility])2021-08-14 09:57:59 Test Item Value Reference Range Interpretation Comments SARS-COV2/RT-PCR (test Negative Not Detected, Negative, code = 0973371) See external report for linked test SARS-COV-2 PERFORMING LAB [facility] TAWNY (test code = 8112389) Negative result for this test determines that [...] 564(g) of the Act.Fact Sheet for Healthcare Providers:https://www.[employer]/sites/default/files/product/documents/Fact_Shee b_CS_Tmxzaxpmf_Dkrd_DDXV-HtW-1.pdfFact Sheet for Healthcare Patients:https://www.[employer]/sites/default/files/product/ documents/Trim_Dspkv_Utwwyfbu_Lrls_HPHI-EpV-3.pdfPerforming Laboratory:[facility] [facility].[place], [place] [address]SSJH-RLSTPCD METER 2021-08-14 06:10:11 Test Item Value Reference Range Interpretation Comments POC-GLUCOSE METER 119 mg/dL 70-110 H : Notified RN/MD: (SCOOTER) (test code = TESTED AT [place] [address] 1538) [facility], [address]: Scourer/Techni benjamin ID = [id number] for SYLVIA BARDALES POCT-GLUCOSE [id number] 00:23:47 Test Item Value Reference Range Interpretation Comments POC-GLUCOSE METER 178 mg/dL 70-110 H : Notified RN/MD: (SCOOTER) (test code = TESTED AT [place] [address] 1538) [facility], [address]: Scourer/Techni benjamin ID = [id number] for SYLVIA BARDALES COMPREHENSIVE METABOLIC [id number] 19:13:46 Test Item Value Reference Range Interpretation Comments TOTAL PROTEIN 6.0 gm/dL 6.0-8.3 (BEAKER) (test code = 770) ALBUMIN (BEAKER) 3.6 g/dL 3.5-5.0 (test code = 1145) ALKALINE PHOSPHATASE 86 U/L 40-150 (BEAKER) (test code = 346) BILIRUBIN TOTAL 0.4 mg/dL 0.2-1.2 (BEAKER) (test code = 377) SODIUM (BEAKER) (test 142 meq/L 136-145 code = 381) POTASSIUM (BEAKER) 3.7 meq/L 3.5-5.1 (test code = 379) CHLORIDE (BEAKER) 106 meq/L 98-107 (test code = 382) CO2 (BEAKER) (test 29 meq/L 22-29 code = 355) BLOOD UREA NITROGEN 21 mg/dL 7-21 (BEAKER) (test code = 354) CREATININE (BEAKER) 0.93 mg/dL 0.57-1.25 (test code = 358) GLUCOSE RANDOM 99 mg/dL 70-105 (BEAKER) (test code = 652) CALCIUM (BEAKER) 8.9 mg/dL 8.4-10.2 (test code = 697) AST (SGOT) (BEAKER) 10 U/L 5-34 (test code = 353) ALT (SGPT) (BEAKER) 12 U/L 6-55 (test code = 347) EGFR (BEAKER) (test 61 mL/min/1.73 ESTIMA CHAPARRO GFR IS code = 1092) sq m NOT ACCURATE CREATININE CLEARANCE IN PREDICTING GLOMERULAR FILTRATION RATE . ESTIMATED GFR I S NOT APPLICABLE FOR DIALYSIS PATIEN TS. Scourer ID - [id number] 19:02:27 Test Item Value Reference Range Interpretation Comments PROTIME (BEAKER) 12.3 seconds 11.9-14.2 (test code = 759) INR (BEAKER) (test 0.93 See_Comment [Automat ed message] code = 370) The system Zscaler generated this result transmitted ref erence range: <=5.90. The reference range was not used to int erpret this result as normal/abnormal . RECOMMENDED COUMADIN/WARFARIN INR THERAPY RANGESSTANDARD DOSE: 2.0 - 3.0 Includes: PROPHYLAXIS forvenous thrombosis, systemic embolization; TREATMENT for venous thrombosis and/or pulmonary embolus.HIGH RISK: Target INR is 2.5-3.5 for patients with mechanical heart valves.CBC W/PLT COUNT & AUTO DIFFERENTIAL 2021-08-13 18:51:23 Test Item Value Reference Range Interpretation Comments WHITE BLOOD CELL COUNT (BEAKER) 9.8 K/ L 3.5-10.5 (test code = 775) RED BLOOD CELL COUNT (BEAKER) 3.88 M/ L 3.93-5.22 L (test code = 761) HEMOGLOBIN (BEAKER) (test code = 11.0 GM/DL 11.2-15.7 L 410) HEMATOCRIT (BEAKER) (test code = 35.2 % 34.1-44.9 411) MEAN CORPUSCULAR VOLUME (BEAKER) 90.7 fL 79.4-94.8 (test code = 753) MEAN CORPUSCULAR HEMOGLOBIN 28.4 pg 25.6-32.2 (BEAKER) (test code = 751) MEAN CORPUSCULAR HEMOGLOBIN CONC 31.3 GM/DL 32.2-35.5 L (BEAKER) (test code = 752) RED CELL DISTRIBUTION WIDTH 14.1 % 11.7-14.4 (BEAKER) (test code = 412) PLATELET COUNT (BEAKER) (test 315 K/CU MM 150-450 code = 756) MEAN PLATELET VOLUME (BEAKER) 9.2 fL 9.4-12.3 L (test code = 754) NUCLEATED RED BLOOD CELLS 0 /100 WBC 0-0 (BEAKER) (test code = 413) NEUTROPHILS RELATIVE PERCENT 50 % (BEAKER) (test code = 429) LYMPHOCYTES RELATIVE PERCENT 38 % (BEAKER) (test code = 430) MONOCYTES RELATIVE PERCENT 9 % (BEAKER) (test code = 431) EOSINOPHILS RELATIVE PERCENT 2 % (BEAKER) (test code = 432) BASOPHILS RELATIVE PERCENT 1 % (BEAKER) (test code = 437) NEUTROPHILS ABSOLUTE COUNT 4.85 K/ L 1.56-6.13 (BEAKER) (test code = 670) LYMPHOCYTES ABSOLUTE COUNT 3.74 K/ L 1.18-3.74 (BEAKER) (test code = 414) MONOCYTES ABSOLUTE COUNT (BEAKER) 0.83 K/ L 0.24-0.36 H (test code = 415) EOSINOPHILS ABSOLUTE COUNT 0.24 K/ L 0.04-0.36 (BEAKER) (test code = 416) BASOPHILS ABSOLUTE COUNT (BEAKER) 0.05 K/ L 0.01-0.08 (test code = 417) IMMATURE GRANULOCYTES-RELATIVE 1 % 0-1 PERCENT (BEAKER) (test code = 2801) RAD, CHEST, 1 VIEW, NON [id number] 18:27:00Reason for exam:->post picc line insertionShould this be performed at the bedside?->Yes [facility] : 1955 Sex: FFINAL REPORT TECHNIQUE: Frontal view of the chest. INDICATION: post picc line insertion. COMPARISON: 05/17/2021. FINDINGS: LINES/TUBES: Right PICC line tip projected over the distal SVC. HEART AND MEDIASTINUM: Cardiomediastinal contour is within normal limits. LUNGS: The lungs are well inflated and clear. No consolidation or pulmonary edema. PLEURA: No pneumothorax. No significant pleural effusion. SOFT TISSUES AND BONES: Unremarkable. IMPRESSION:No acute cardiopulmonary process. Right PICC line tip projected over the distal SVC. Signed: Thelma Quiros MDReport Verified Date/Time: 08/13/2021 18:27:07 Electronically signed by: THELMA QUIROS MD on08/13/2021 06:27 PMBASI METABOLIC [id number] 05:35:09 Test Item Value Reference Range Interpretation Comments SODIUM (BEAKER) 143 meq/L 136-145 (test code = 381) POTASSIUM (BEAKER) 4.1 meq/L 3.5-5.1 (test code = 379) CHLORIDE (BEAKER) 107 meq/L 98-107 (test code = 382) CO2 (BEAKER) (test 30 meq/L 22-29 H code = 355) BLOOD UREA NITROGEN 7 mg/dL 7-21 (BEAKER) (test code = 354) CREATININE (BEAKER) 0.89 mg/dL 0.57-1.25 (test code = 358) GLUCOSE RANDOM 82 mg/dL 70-105 (BEAKER) (test code = 652) CALCIUM (BEAKER) 8.9 mg/dL 8.4-10.2 (test code = 697) EGFR (BEAKER) (test 64 mL/min/1.73 ESTIMA CHAPARRO GFR IS code = 1092) sq m NOT ACCURATE CREATININE CLEARANCE IN PREDICTING GLOMERULAR FILTRATION RATE . ESTIMATED GFR I S NOT APPLICABLE FOR DIALYSIS PATIEN TS. Scourer ID - PIAYA LLACTIC ACID, [id number] 05:11:20 Test Item Value Reference Range Interpretation Comments LACTATE BLOOD VENOUS (2) (BEAKER) 2.49 mmol/L 0.50-2.20 H (test code = 2872) Scourer ID - DBCBC W/PLT COUNT & AUTO [id number] 05:00:57 Test Item Value Reference Range Interpretation [...] 0-1 PERCENT (BEAKER) (test code = 2801) [id number] 06:40:18 Test Item Value Reference Range Interpretation Comments PHOSPHORUS (BEAKER) 3.3 mg/dL 2.3-4.7 Specimen slightly (test code = 604) hemolyzed Scourer ID - DBBASIC METABOLIC [id number] 06:40:18 Test Item Value Reference Range Interpretation [...] S NOT APPLICABLE FOR DIALYSIS PATIEN TS. Scourer ID - [id number] 06:40:17 Test Item Value Reference Range Interpretation Comments MAGNESIUM (BEAKER) 1.9 mg/dL 1.6-2.6 Specimen slightly (test code = 627) hemolyzed Scourer ID - DBCBC (HEMOGRAM ONLY)2021-05-18 05:39:35 Test [...] = 413) SARS-COV2/RT-PCR ([facility])2021-05-17 14:30:52 Test Item Value Reference Range Interpretation Comments SARS-COV2/RT-PCR (test Negative Not Detected, Negative, code = 5613721) See external report for linked test SARS-COV-2 PERFORMING LAB [facility] (test code = 5216151) Negative result for this test determines that [...] 564(g) of the Act.Fact Sheet for Healthcare Providers:https://www.UpNext/sites/default/files/product/documents/Fact_Shee v_OG_Optxapeid_Jvzc_TRJM-ZfD-0.pdfFact Sheet for Healthcare Patients:https://www.UpNext/sites/default/files/product/ documents/Zwql_Uyayr_Fcpzstyd_Rssa_WGRM-FlB-6.pdfPerforming Laboratory:[facility], [place] [address]IQC, CHEST, 1 VIEW, NON [id number] 11:04:00Reason for exam:->new admission with possible entero-enteric fistulaShould this be performed at the bedside?->Yes [facility] : 1955 Sex: FFINAL REPORT [...] Becerril Verified Date/Time: 05/17/2021 11:04:57 Reading Location: [facility] Radiology Reading Room RAD, ABDOMEN/KUB, 1 VIEW [id number] 10:21:00Reason for exam:->concern for small bowel obstructionShould this be performed at the bedside?->Yes [facility] : 1955 Sex: FFINAL REPORT [...] Becerril Verified Date/Time: 05/17/2021 10:21:20 Reading Location: [facility] Radiology Reading Room [id number] 09:42:25 Test Item Value Reference Range Interpretation Comments PHOSPHORUS (BEAKER) (test code = 2.6 mg/dL 2.3-4.7 604) Scourer ID - DBBASIC METABOLIC [id number] 09:42:24 Test Item Value Reference Range Interpretation [...] S NOT APPLICABLE FOR DIALYSIS PATIEN TS. Scourer ID - [id number] 09:42:24 Test Item Value Reference Range Interpretation Comments MAGNESIUM (BEAKER) (test code = 1.9 mg/dL 1.6-2.6 627) Scourer ID - DBPROTHROMBIN [id number] 09:28:59 Test Item Value Reference Range Interpretation Comments PROTIME (BEAKER) 12.9 seconds 11.9-14.2 (test code = 759) INR (BEAKER) (test 0.99 See_Comment [Automat ed message] code = 370) The system Zscaler generated this result transmitted ref erence range: [...] (BEAKER) (test code = 413) HEPATITIS B [id number] 20:49:20 Test Item Value Reference Range Interpretation Comments HEPATITIS B CORE TOTAL ANTIBODY Nonreactive Nonreactive (BEAKER) (test code = 497) HEPATITIS B SURFACE ANTIBODY < mIU/mL <8.0 (BEAKER) (test code = 647) HEPATITIS B SURFACE ANTIGEN (2) Nonreactive Nonreactive (BEAKER) (test code = 2585) Scourer ID - BSOperator ID - BSVITAMIN D, [id number] 18:58:29 Test Item Value Reference Range Interpretation Comments VITAMIN D 25-OH (BEAKER) (test 48.0 ng/mL 6.6-49.9 code = 2764) Effective 11/26/2016: Reference Range ChangeNew: 6.6-49.9 ng/mL Previous: 13.0-47.8 ng/mLRecommended Vitamin D Target Range: 30.0-40.0 ng/mLOperator ID - BSC. DIFFICILE GDH [id number] 13:19:34 Test Item Value Reference Range Interpretation Comments CDT TOXIN (test code Negative Negative = 0169750604) CDT GDH ANTIGEN (test Negative Negative No ind ication of code = 1451957100) Clostridi um difficile infection and n o colonization. Discontinue ent christopher isolation and t herapy. Testing performed by [employer] Rapid Cassette Assay. For GDH, published sensitivity of the assay is 98.7% compared to cytotoxicity testing. For Toxin AB, published sensitivity is 87.8% and specificity 99.4% compared to cytotoxicity testing.Verification of kit performance was done by the [facility] Microbiology Lab prior to clinical use.BASIC METABOLIC [id number] 05:52:32 Test Item Value Reference Range Interpretation [...] S NOT APPLICABLE FOR DIALYSIS PATIEN TS. Scourer ID - PIAYA LCBC (HEMOGRAM ONLY)2021-02-06 05:38:48 [...] (BEAKER) (test code = 413) BASIC METABOLIC [id number] 05:38:29 Test Item Value Reference Range Interpretation [...] S NOT APPLICABLE FOR DIALYSIS PATIEN TS. Scourer ID - DEANNA MC-REACTIVE [id number] 05:38:29 Test Item Value Reference Range Interpretation Comments C-REACTIVE PROTEIN (BEAKER) (test 3.86 mg/dL 0.00-0.50 H code = 676) Scourer ID - DEANNA MCBC (HEMOGRAM ONLY)2021-02-05 05:28:27 [...] 0-0 (BEAKER) (test code = 413) CT, [id number] 16:56:00Unlisted Reason for Exam - Click Yes and Enter Reason Below->NoIs this for enterography?->NoWill this procedure require oral contrast?->No [facility] 1955 Sex: [...] consistent with an angiomyolipoma. Signed: Reed Hunter [facility] Verified Date/Time: 02/04/2021 16:56:27 Reading Location: [facility] Diagnostic Imaging Reading Room - [facility] F1 1129 VITAMIN B12 AND [id number] 07:14:11 Test Item Value Reference Range Interpretation Comments VITAMIN B12 187 pg/mL 213-816 L (BEAKER) (test code = 774) FOLATE (BEAKER) 18.90 ng/mL See_Comment [Automated message] (test code = 362) The system which generated this result transmitted ref erence range: >=7.00. The reference range was not used to interpr et this result as normal/abnormal . Scourer ID - LIDA [id number] 07:14:10 Test Item Value Reference Range Interpretation Comments FERRITIN (BEAKER) (test code = 110.79 ng/mL 5.00-275.00 361) Scourer ID - LIDA FIRON, TIBC, % SAT. (WITHOUT FERRITIN)2021-02-04 06:55:40 Test Item Value Reference Range Interpretation Comments IRON (BEAKER) (test code = 547) 75.0 ug/dL 40.0-160.0 TOTAL IRON BINDING CAPACITY 258 ug/dL 250-450 (BEAKER) (test code = 769) IRON % SATURATION (2) (BEAKER) 29 % 20-55 (test code = 2590) Scourer ID - LIDA FHEPATIC FUNCTION [id number] 16:57:11 Test Item Value Reference Range Interpretation [...] Specimen slightly (test code = 347) hemolyzed Scourer ID - KARMEN LHEMOGLOBIN [id number] 12:28:44 Test Item Value Reference Range Interpretation Comments HEMOGLOBIN A1C (BEAKER) (test code = 5.3 % 4.3-6.1 368) [id number] 09:47:42 Test Item Value Reference Range Interpretation Comments PHOSPHORUS (BEAKER) 3.5 mg/dL 2.3-4.7 Specimen slightly (test code = 604) hemolyzed Scourer ID - PINANCIE LBASIC METABOLIC [id number] 09:47:42 Test Item Value Reference Range Interpretation [...] S NOT APPLICABLE FOR DIALYSIS PATIEN TS. Scourer ID - KARMEN [id number] 09:47:41 Test Item Value Reference Range Interpretation Comments MAGNESIUM (BEAKER) 2.2 mg/dL 1.6-2.6 Specimen slightly (test code = 627) hemolyzed Scourer ID - KARMEN LC-REACTIVE [id number] 09:45:23 Test Item Value Reference Range Interpretation Comments C-REACTIVE PROTEIN (BEAKER) (test 3.67 mg/dL 0.00-0.50 H code = 676) Scourer ID - KARMEN LCBC W/PLT COUNT & AUTO [id number] 09:23:38 Test Item Value Reference Range Interpretation [...] code = 2801) RAD, ABDOMEN/KUB, 1 VIEW [id number] 07:28:00Reason for exam:->NGT tube placementShould this be performed at the bedside?->Yes [facility] : 1955 Sex: FFINAL REPORT RAD, ABDOMEN/KUB, 1 VIEW AP INDICATION: NGT tube placementCOMPARISON: None TECHNIQUE: Limited portable radiograph of the lower chest and upper abdomen was acquired for purposes of evaluating tube placement FINDINGS/IMPRESSION:NG side-port overlies the stomach Signed: Rory Quiroga MDRborisort Verified Date/Time: 02/03/2021 07:28:00
== END 2021-09-01 14:04 | disposition home or self-care (01) | DRG 386 ==
LOC: ER 15:10 → ERHOLD 19:34 → 2ND 21:36 → OBSVTOIN 08-31 08:58
PROVIDERS: ADMIT Internal Medicine Nephrology; ATTEND Internal Medicine Nephrology
DX: K50.012 Crohn's disease of small intestine with intestinal obstruction (principal); N30.00 Acute cystitis without hematuria; E03.9 Hypothyroidism, unspecified; I10 Essential (primary) hypertension; E78.5 Hyperlipidemia, unspecified; R73.03 Prediabetes; F32.A Depression, unspecified; Z88.0 Allergy status to penicillin; Z91.040 Latex allergy status; Z20.822 Contact with and (suspected) exposure to COVID-19
CPT/HCPCS: 36415; 71045; 74018; 74019; 74177; 80048; 80053; 81001; 82947; 83690; 83735; 84100; 84484; 85025; 87077; 87086; 87088; 87186; 93005; 96361; 96374; 96375; 99284; C9113; G0378; J1170; J1650; J2405; J2543; J2920; J2930; J3010; J3475; J3480; J3490; J7030; Q9967; U0003

== ENCOUNTER 2021-09-12 18:13 | Inpatient (IN) | payer BC, OTHER ==
[2021-09-12] MEDS ORDERED: ONDANSETRON 4 MG/2 ML VIAL ONE (19:59)
[2021-09-12] MEDS ORDERED: NA CHLORIDE 0.9% 500 ML ONE (19:59)
[2021-09-12 20:08] LABS: Absolute Lymphocytes (CBC) 1.3 K/uL (0.7-4.9); Hematocrit 37.2 % (36.0-45.0); Lymphocytes % 20.4 % (15.3-44.8); MCV 83.5 fL (80-100); MPV 7.5 fL (7.6-11.3); RBC Red Blood Cell Count 4.46 M/uL (3.86-4.86)
[2021-09-12 20:33] LABS: Albumin 3.4 g/dL (3.4-5.0); Bilirubin Total 0.3 mg/dL (0.2-1.0); Potassium 3.7 mmol/L (3.5-5.1); Protein, Total 7.3 g/dL (6.4-8.2); Troponin High Sensitivity 3.4 pg/mL (<58.9)
[2021-09-12] MEDS ORDERED: MORPHINE 2 MG/ML SYR ONE (22:48)
--- NOTE | 2021-09-12 23:34 | ER ---
Nurse's Notes [facility] Name: Kindra Novoa Age: 66 yrs Sex: Female : 1955 Arrival Date: 09/12/2021 Time: 18:16 Bed 19 Private MD: Moriah Vasquez Diagnosis: Pneumonia due to SARS-associated coronavirus;Dehydration;Vomiting, unspecified Presentation: 09/12 19:40 Chief complaint: Patient states: "This feels different from my previous episodes. It tw5 hurts to take a deep breath, and it hurts all the way to my back.". Ebola Screen: Patient negative for fever greater than or equal to 101.5 degrees Fahrenheit, and additional compatible Ebola Virus Disease symptoms Patient denies exposure to infectious person. Patient denies travel to an Ebola-affected area in the 21 days before illness onset. Initial Sepsis Screen: Does the patient meet any 2 criteria? HR > 90 bpm. Does the patient have a suspected source of infection? Yes: Acute abdominal pain. Risk Assessment: Do you want to hurt yourself or someone else? Patient reports no desire to harm self or others. Onset of symptoms is unknown. 19:40 Method Of Arrival: Wheelchair tw5 19:40 Acuity: KAROL 3 tw5 19:46 Coronavirus screen: Vaccine status: Patient reports being unvaccinated. Patient reports tw5 having had a previously documented Covid positive illness. September 04, 2021. Triage Assessment: 19:46 General: Appears uncomfortable, obese, Behavior is agitated. Pain: Complains of pain in tw5 xiphoid area Pain radiates to back Pain currently is 10 out of 10 on a pain scale. GI: Reports upper abdominal pain, epigastric pain, nausea, vomiting. Historical: - Allergies: 19:46 Ciprofloxacin; tw5 19:46 Flagyl; tw5 19:46 Latex, Natural Rubber; tw5 - PMHx: 19:46 bowel obstruction; Colitis; Depression; Hypertension; Crohn's Disease; Hypothyroidism; tw5 Insulin Resistance; - Immunization history:: Pneumococcal vaccine is up to date. - Social history:: Smoking status: Patient/guardian denies using tobacco, the patient reports quitting approximately 20 years ago. - Family history:: not pertinent. - Hospitalizations: : The patient was recently seen at [facility]. Screenin:47 Abuse screen: Denies threats or abuse. Denies injuries from another. Nutritional sm5 screening: No deficits noted. Tuberculosis screening: No symptoms or risk factors identified. Fall Risk None identified. Vital Signs: 19:40 BP 120 / 70; Pulse 113; Resp 18; Temp 98.5; Pulse Ox 94% on R/A; Weight 111.58 kg; tw5 Height 5 ft. 1 in. (154.94 cm); Pain 10/10; 19:40 Body Mass Index 46.48 (111.58 kg, 154.94 cm) tw5 ED Course: 18:16 Patient arrived in ED. am2 18:16 Moriah Vasquez is Private Physician. am2 18:16 Moriah Vasquez FNP-C is Private Physician. am2 19:24 Patrick Costa MD is Attending Physician. rn 19:45 Triage completed. tw5 19:46 Arm band placed on right wrist. tw5 19:58 CBC with Diff Sent. tw5 19:58 CMP Sent. tw5 19:58 Lipase Sent. tw5 19:58 Initial lab(s) drawn, by mo, sent to lab. IV is reddened, with fluids infusing freely, tw5 with good blood return, Flushed PICC line with 5 ml normal saline. 20:01 SARS-COV-2 RT PCR (Document "Date of Onset" if Symptomatic) Sent. tw5 21:38 Nargis Maldonado, RN is Primary Nurse. sm5 21:47 Inserted saline lock: 20 gauge in left antecubital area, using aseptic technique. sm5 22:25 CT Abd/Pelvis - IV Contrast Only In Process Unspecified. EDMS 22:25 CT Chest For PE Angio In Process Unspecified. EDMS 23:32 Ventura Castillo is Hospitalizing Provider. rn 09/13 08:00 Primary Nurse role handed off by Nargis Maldonado RN eb 08:12 Danny Nam, RN is Primary Nurse. bp 19:04 Primary Nurse role handed off by Danny Nam, CHRISTIANO eb 20:23 No provider procedures requiring assistance completed. Assist provider with bone marrow vc1 aspiration. Patient admitted, IV remains in place. Administered Medications: 09/12 19:58 Drug: Zofran (Ondansetron) 4 mg Route: IVP; Site: right upper arm; tw5 19:58 Drug: NS 0.9% 500 ml Route: IV; Rate: bolus; Site: right upper arm; tw5 22:42 Drug: morphine 2 mg Route: IVP; Infused Over: 4 mins; Site: left antecubital; [facility] 09/13 00:03 Drug: SOLU-Medrol (methylPrednisoLONE) 125 mg Route: IVP; Site: left antecubital; [facility] 00:03 Drug: Xopenex (levalbuterol) (3) 1.25 mg Route: Inhalation; [facility] Medication: 20:24 VIS not applicable for this client. vc1 Outcome: 09/12 23:33 Decision to Hospitalize by Provider. rn 09/13 20:23 Admitted to Tele accompanied by tech, via stretcher, room 419, Report called to tila Diaz RN Condition: improved Instructed on the need for admit. 20:24 Patient left the ED. vc1 Signatures: Dispatcher [employer] EDMS Patrick Costa MD MD rn Moreno, Amanda am2 Peltier, Brian, RN RN Fernanda Forrest Tiffany 5 Nargis Maldonado RN RN 5 Oneida Covington RN RN vc1 Corrections: (The following items were deleted from the chart) 09/12 20:06 19:58 Troponin High Sensitivity+C.LAB.BRZ drawn and sent. [facility] EDPR
--- NOTE | 2021-09-12 23:34 | EDPHYS ---
Physician Documentation [facility] Name: Kindra Novoa Age: 66 yrs Sex: Female : 1955 Arrival Date: 09/12/2021 Time: 18:16 Bed 19 Private MD: Moriah Vasquez ED Physician Patrick Costa HPI: 09/12 19:51 This 66 yrs old Female presents to ER via Wheelchair with complaints of rn Abdominal Pain, Back Pain. 19:51 The patient presents with abdominal pain in the epigastric area. rn 19:51 Onset: The symptoms/episode began/occurred 3 day(s) ago. The symptoms radiate to back. rn Associated signs and symptoms: Pertinent positives: nausea and vomiting, chest pain, nausea, vomiting, Pertinent negatives: blood in stools, shortness of breath. The symptoms are described as intermittent, sharp. Modifying factors: The symptoms are alleviated by nothing, the symptoms are aggravated by coughing, breathing deeply, touching the area. Severity of pain: At its worst the pain was moderate in the emergency department the pain is unchanged. The patient has experienced similar episodes in the past. The patient has not recently seen a physician. Pt reports a few days of upper abd pain, radiates to back, assoc with cough/nausea/vomiting. Reports hx of crohn's and multiple partial small bowel obstructions, is planning for GI surgery in October, and has been on TPN for weeks. NO fever. NO blood in stool. Having small bowel movements. Only taking popsicles and jello by mouth.. Historical: - Allergies: 19:46 Ciprofloxacin; tw5 19:46 Flagyl; tw5 19:46 Latex, Natural Rubber; tw5 - PMHx: 19:46 bowel obstruction; Colitis; Depression; Hypertension; Crohn's Disease; Hypothyroidism; tw5 Insulin Resistance; - Immunization history:: Pneumococcal vaccine is up to date. - Social history:: Smoking status: Patient/guardian denies using tobacco, the patient reports quitting approximately 20 years ago. - Family history:: not pertinent. - Hospitalizations: : The patient was recently seen at [facility]. ROS: 19:51 Constitutional: Negative for fever, chills, and weight loss, Eyes: Negative for injury, rn pain, redness, and discharge, Neck: Negative for injury, pain, and swelling, Cardiovascular: Negative for palpitations, and edema, Respiratory: Negative for wheezing Abdomen/GI: + upper abd pain and nausea/vomiting Back: Negative for pain, : Negative for injury, bleeding, discharge, and swelling, MS/Extremity: Negative for injury and deformity, Skin: Negative for injury, rash, and discoloration, Neuro: Negative for headache, weakness, numbness, tingling, and seizure. Exam: 19:54 Constitutional: This is a well developed, well nourished patient who is awake, alert, rn appears uncomfortable Head/Face: Normocephalic, atraumatic. Eyes: Periorbital areas with no swelling, redness, or edema. ENT: dry MM Cardiovascular: Tachycardic, regular Respiratory: No increased work of breathing, no retractions or nasal flaring. + diffuse wheezing bilaterally. Abdomen/GI: soft, + tender epigastrium, no rebound or distension Skin: Warm, dry MS/ Extremity: Pulses equal, no cyanosis. Neuro: Awake and alert, GCS 15 20:25 ECG was reviewed by the Attending Physician. rn Vital Signs: 19:40 BP 120 / 70; Pulse 113; Resp 18; Temp 98.5; Pulse Ox 94% on R/A; Weight 111.58 kg; tw5 Height 5 ft. 1 in. (154.94 cm); Pain 10/10; 19:40 Body Mass Index 46.48 (111.58 kg, 154.94 cm) tw5 MDM: 19:24 Patient medically screened. rn 23:30 Differential diagnosis: bowel obstruction, non-specific abd pain, pancreatitis, Peptic rn Ulcer Disease, crohn's flare, COVID, COVID pneumonia, COPD exacerbation. 23:31 Data reviewed: vital signs, nurses notes, lab test result(s), radiologic studies, CT rn scan, and as a result, I will admit patient. Counseling: I had a detailed discussion with the patient and/or guardian regarding: the historical points, exam findings, and any diagnostic results supporting the discharge/admit diagnosis, lab results, radiology results, the need for further work-up and treatment in the hospital. Response to treatment: the patient's symptoms have mildly improved after treatment, and as a result, I will admit patient. Admission orders: after a detailed discussion of the patient's condition and case, the admit orders are written by me. ED course: Pt mildly improved, nausea seems better controlled, CXR with COVID pneumonia, oxygen not terrible but still wheezing and actually seems more tachypneic now. No bowel obstruction, just chronic stricture from Crohn's disease. . 09/12 19:30 Order name: CBC with Diff; Complete Time: 20:49 rn 09/12 19:30 Order name: CMP; Complete Time: 20:49 rn 09/12 19:30 Order name: Lipase; Complete Time: 20:49 rn 09/12 19:51 Order name: SARS-COV-2 RT PCR (Document "Date of Onset" if Symptomatic); Complete Time: rn 21:27 09/12 20:06 Order name: Troponin High Sensitivity; Complete Time: 20:49 EDHI 09/12 19:31 Order name: CT Abd/Pelvis - IV Contrast Only rn 09/12 19:47 Order name: CT Chest For PE Angio rn 09/13 00:51 Order name: Procalcitonin; Complete Time: 05:10 EDHI 09/13 03:19 Order name: C-Reactive Protein; Complete Time: 05:10 EDMS 09/13 03:20 Order name: Sedimentation Rate, Westergren; Complete Time: 05:10 EDMS 09/13 03:23 Order name: Lactate; Complete Time: 05:10 EDHI 09/12 19:30 Order name: IV Saline Lock; Complete Time: 19:58 rn 09/12 19:30 Order name: Labs collected and sent; Complete Time: 19:58 rn 09/12 19:48 Order name: EKG; Complete Time: 19:54 rn 09/12 19:48 Order name: EKG - Nurse/Tech; Complete Time: 00:04 rn EC:25 Rate is 102 beats/min. Rhythm is regular. QRS [place] is Normal. NE interval is normal. rn QRS interval is normal. QT interval is normal. No Q waves. T waves are Normal. No ST changes noted. Clinical impression: Sinus tachycardia. Interpreted by me. Reviewed by me. Administered Medications: 19:58 Drug: Zofran (Ondansetron) 4 mg Route: IVP; Site: right upper arm; tw5 19:58 Drug: NS 0.9% 500 ml Route: IV; Rate: bolus; Site: right upper arm; tw5 22:42 Drug: morphine 2 mg Route: IVP; Infused Over: 4 mins; Site: left antecubital; 5 09/13 00:03 Drug: SOLU-Medrol (methylPrednisoLONE) 125 mg Route: IVP; Site: left antecubital; 5 00:03 Drug: Xopenex (levalbuterol) (3) 1.25 mg Route: Inhalation; 5 Disposition Summary: 09/12/21 23:33 Hospitalization Ordered Hospitalization Status: Observation rn Provider: Ventura Castillo rn Condition: Stable rn Problem: new rn Symptoms: have improved rn Bed/Room Type: Standard rn Location: Telemetry/MedSurg (observation)(09/13/21 19:04) Room Assignment: 419(09/13/21 19:04) Diagnosis - Pneumonia due to SARS-associated coronavirus rn - Dehydration rn - Vomiting, unspecified rn Forms: - Medication Reconciliation Form rn - SBAR form rn Signatures: Dispatcher [employer] [facility] Tracy Mandujano RN RN Patrick Zapata MD MD rn Wood, Tiffany tw5 Nargis Maldonado RN RN sm5 Oneida Covington RN RN vc1 Janina Sena, PA PA sb3 Corrections: (The following items were deleted from the chart) 09/12 20:06 19:54 Troponin High Sensitivity+C.LAB.BRZ ordered. [facility] 23:31 19:54 Constitutional: This is a well developed, well nourished patient who is awake, rn alert, appears uncomfortable Head/Face: Normocephalic, atraumatic. Eyes: Periorbital areas with no swelling, redness, or edema. ENT: dry MM Cardiovascular: Tachycardic, regular Respiratory: No increased work of breathing, no retractions or nasal flaring. Abdomen/GI: soft, + tender epigastrium, no rebound or distension Skin: Warm, dry MS/ Extremity: Pulses equal, no cyanosis. Neuro: Awake and alert, GCS 15 rn 09/13 00:26 09/12 23:33 Telemetry/MedSurg (observation) rn vc1 09/13 00:26 09/12 23:33 rn vc1 09/13 19:04 00:[address] [facility] ER HOLD vc1 19:04 00:26 ERHOLD- vc1 dw
[2021-09-13] MEDS ORDERED: METHYLPREDNISOLONE 125 MG INJ ONE ×2 (00:06→08:57)
[2021-09-13] MEDS ORDERED: LEVALBUTEROL 1.25 MG/3 ML NEB ONE (00:06)
--- NOTE | 2021-09-13 00:51 | P.HP ---
Certification for Inpatient Patient admitted to: Inpatient With expected LOS: <2 Midnights Patient will require the following post-hospital care: None Practitioner: I am a practitioner with admitting privileges, knowledge of patient current condition, hospital course, and medical plan of care. Services: Services provided to patient in accordance with Admission requirements found in Title 42 Section 412.3 of the Code of Federal Regulations Patient History Date of Service: 09/13/21 Reason for admission: COVID Pneumonia History of Present Illness: Patient is a 66 y/o female with hypothyroidism, prediabetes, hypertension, hyperlipidemia, history Crohn's disease with recurrent small bowel obstruction secondary to adhesions who presented to the ED with complaints of cough, n/v, and chest pain. Patient states that she recently tested positive for COVID and has been feeling run down. She was tachypneic and tachycardic on presentation, saturating 94% on RA. Labs unremarkable. CT chest showed "mild peripheral groundglass opacities with basilar predominance. She was given 1/2L fluids, zofran, morphine, solumedrol, and breathing treatment. Upon my assessment, patient reports feeling mildly improved. ED provider wishes to admit patient for further evaluation and treatment. Allergies ciprofloxacin Allergy (Verified 08/30/21 22:33) Itching/Hives/Rash latex [Latex] Allergy (Verified 08/30/21 22:33) Itching/Hives/Rash Latex, Natural Rubber Allergy (Verified 08/30/21 22:33) Unknown metronidazole Allergy (Verified 08/30/21 22:33) Itching/Hives/Rash Home medications list reviewed: Yes Home Medications: Levothyroxine Sodium 25 mcg PO [id number] 07/27/20 Sertraline [Zoloft*] 200 mg PO BEDTIME 07/27/20 buPROPion HCL [Bupropion HCl] 150 mg PO DAILY 12/10/20 Ondansetron [Zofran (Odt)*] 4 mg PO Q6H PRN #10 tab 03/08/21 Atorvastatin Calcium 10 mg PO DAILY 04/05/21 Metoprolol Succinate [Toprol Xl*] 50 mg PO BID 04/05/21 Acetaminophen 160 mg PO Q4H PRN 06/05/21 Cetirizine HCl [Zyrtec] 1 tab PO DAILY 06/05/21 Hyoscyamine Sulfate [Levsin TAB*] 0.125 tab PO Q4HP PRN 06/05/21 Pantoprazole Sodium [Protonix] 1 tab PO DAILY 06/05/21 Bupropion HCl [Wellbutrin] 1 tab PO BEDTIME 08/04/21 Gatifloxacin 1 drop EACH EYE QID 08/04/21 Amlodipine [Norvasc*] 5 mg PO DAILY 30 Days #30 tab 08/07/21 Lisinopril [Zestril] 5 mg PO DAILY 30 Days #30 tab 08/07/21 predniSONE [Prednisone*] 15 mg PO SEECOM 08/31/21 Hydrocodone 7.5/APAP 325 [[place] 7.5/325 mg] 1 tab PO Q6H PRN #30 tab 09/01/21 - Past Medical/Surgical History Diabetic: No -: HTN -: Prediabetes -: Hypothyroidism -: Depression -: Recurrent SBO -: GERD -: Crohn's disease -: Colitis -: Psychosocial/ Personal History: Patient is . - Family History Father -: Cancer Notes: lung Cx Mother -: Heart disease - Social History Smoking Status: Never smoker Alcohol use: No CD- Drugs: No Caffeine use: Yes Place of Residence: Home Review of Systems General: Weakness Respiratory: Shortness of Breath, Pleuritic Pain Physical Examination - Physical Exam General: Alert, In no apparent distress, Obese HEENT: Atraumatic, PERRLA, EOMI, Sclerae nonicteric Neck: Supple, 2+ carotid pulse no bruit, No LAD, Without JVD or thyroid abnormality Respiratory: Dull Cardiovascular: Regular rate/rhythm, Normal S1 S2 Gastrointestinal: Normal bowel sounds, No tenderness Musculoskeletal: No tenderness Integumentary: No rashes Neurological: Normal speech, Normal strength at 5/5 x4 extr, Normal tone, Normal affect - Studies Laboratory Data (last 24 hrs) 09/12/21 20:00: Sodium 138, Potassium 3.7, BUN 22 H, Creatinine 0.66, Glucose 102, Total Bilirubin 0.3, AST 22, ALT 27, Alkaline Phosphatase 137 H, Lipase 146 09/12/21 20:00: WBC 6.2 D, Hgb 12.2, Hct 37.2 D, Plt Count 252 Assessment and Plan - Problems (Diagnosis) (1) Pneumonia due to COVID-19 virus Current Visit: Yes Status: Acute (2) Partial small bowel obstruction Current Visit: Yes Status: Chronic (3) Crohn's disease Current Visit: Yes Status: Chronic Qualifiers: Gastrointestinal tract location: small and large intestine Digestive disease complication type: unspecified complication Qualified Code(s): K50.819 - Crohn's disease of both small and large intestine with unspecified complications (4) Hypertension Current Visit: Yes Status: Chronic Qualifiers: Hypertension type: primary hypertension Qualified Code(s): I10 - Essential (primary) hypertension (5) Hypothyroidism Current Visit: Yes Status: Chronic Qualifiers: Hypothyroidism type: acquired Qualified Code(s): E03.9 - Hypothyroidism, unspecified (6) Prediabetes Current Visit: Yes Status: Chronic - Plan -Continue scheduled breathing treatments and IV steroids -CRP, ESR, lactate, and procal pending -Will hold off on antibiotics at this time as PNA is likely viral. WBC WNL. -Monitor pulse ox. Supplemental O2 as needed -Monitor on telemetry -Droplet precautions in place -Vitamin c and zinc daily -Monitor and replete electrolytes per protocol -Reconcile and continue home medications -Lovenox for VTE ppx -Full code Discharge Plan: Home Plan to discharge in: 48 Hours - Advance Directives Does patient have a Living Will: Yes Does patient have a Durable POA for Healthcare: No - Code Status/Comfort Care Code Status Assessed: Yes (Full) Critical Care: No Time Spent Managing Pts Care (In Minutes): 50
[2021-09-13] MEDS ORDERED: ACETAMINOPHEN 500 MG TAB PO PRN (01:31)
[2021-09-13 01:49] VITALS: BMI 46.5
[2021-09-13] MEDS ORDERED: ACETAMINOPHEN 500 MG TAB ONE (02:18)
[2021-09-13] MEDS: ALBUTEROL 2.5 MG/3 ML NEB SOL NEB SCH ×4 (02:35→20:45)
[2021-09-13] MEDS: IPRATROPIUM BROM 0.5MG/2.5ML NEB SCH ×4 (02:35→20:45)
[2021-09-13] MEDS ORDERED: IPRATROPIUM BROM 0.5MG/2.5ML ONE ×2 (02:36→08:58)
[2021-09-13] MEDS ORDERED: ALBUTEROL 2.5 MG/3 ML NEB SOL ONE ×2 (02:36→08:58)
[2021-09-13] MEDS ORDERED: METHYLPREDNISOLONE 125 MG INJ IV SCH (06:00)
[2021-09-13] MEDS ORDERED: ASCORBIC ACID 500 MG TABLET ONE (08:57)
[2021-09-13] MEDS ORDERED: ZINC SULFATE 220 MG CAP ONE (08:57)
[2021-09-13] MEDS ORDERED: ENOXAPARIN 40 MG/0.4 ML SQ ONE (08:58)
[2021-09-13] MEDS: ASCORBIC ACID 500 MG TABLET PO SCH (09:00)
[2021-09-13] MEDS: ZINC SULFATE 220 MG CAP PO SCH (09:00)
[2021-09-13] MEDS: ENOXAPARIN 40 MG/0.4 ML SQ SCH (09:00)
[2021-09-13] MEDS: AMOX/K CLAV 500 MG TAB PO SCH ×2 (10:30→21:21)
--- NOTE | 2021-09-13 10:48 | RAD REPORT ---
EXAM DESCRIPTION: CT - Abdomen Pelvis W Contrast - 09/13/2021 4:09 am CLINICAL HISTORY: Abd and back pain, hx of crohn's and bowel obstructions. COMPARISON: CT of the abdomen and pelvis from August 30, 2021. TECHNIQUE: CT of the abdomen and pelvis was performed following intravenous administration of iodina jennifer contrast. Arterial phase images through the abdomen, and portal venous phase images through the a bdomen and pelvis were obtained. Oral contrast was not administered. Axial, coronal, and sagittal sof t tissue window reconstructions were created and sent to PACS. This exam was performed according to our departmental dose-optimization program, which includes autom ated exposure control, adjustment of the mA and/or kV according to patient size and/or use of iterati ve reconstruction technique. FINDINGS: Thoracic: No significant abnormality. Hepatobiliary: No concerning hepatic lesion identified. The portal veins are patent. Similar appearan ce of mild diffuse wall thickening of the gallbladder. No biliary ductal dilatation. Pancreas: Unremarkable. Spleen: Unremarkable. Gastrointestinal: There is wall thickening involving the terminal ileum, similar to prior. Short segm ent fluid-filled distention of left lower abdomen small bowel loops, proximal to a decompressed regio n of small bowel (coronal series 502 image 28). This is similar to prior. No adjacent free air or flu id collections. There is mural fat deposition in the cecum indicating chronic inflammation. Mild left colonic diverticulosis. The majority of the colon is decompressed. The appendix is not visualized. Adrenals: No abnormality identified in either adrenal gland. Renal: Superior right renal 2.2 cm simple cyst tiny hypodensity in the left kidney, likely also a cys t. No follow-up imaging is recommended for these cysts. No concerning parenchymal abnormality in eith er kidney. No hydronephrosis or urolithiasis. Bladder/Reproductive: Unremarkable appearance of the urinary bladder by CT technique. Or uterus Vascular/Lymphatics: No lymphadenopathy identified by CT size criteria. Abdominal aorta is normal in caliber. Musculoskeletal: No concerning osseous lesion identified. Tiny fat-containing periumbilical hernia wi th no associated inflammatory changes. Fluid / peritoneum: No significant free fluid. No free intraperitoneal air identified. IMPRESSION: Sequela of chronic inflammation in right lower quadrant bowel. Mild fluid-filled promine nce of the left lower abdomen small bowel, proximal to a decompressed portion of small bowel. Finding s are suggestive of a chronic stricture in this location, with associated early/partial small bowel o bstruction versus ileus. Electronically signed by: Alicia Nuñez MD 09/12/2021 10:56 PM CDT Due to temporary technical issues with the PACS/Fluency reporting system, reports are being signed by the in house radiologists without review as a courtesy to insure prompt reporting. The interpreting radiologist is fully responsible for the content of the report.
[2021-09-13] MEDS ORDERED: AMOX/K CLAV 875 MG TAB ONE (12:09)
--- NOTE | 2021-09-13 12:36 | RAD REPORT ---
EXAM DESCRIPTION: CT - Chest For Pe Angio - 09/13/2021 4:09 am CLINICAL HISTORY: Recent COVID, pleuritic pain, tachycardic, rule out PE COMPARISON: None Available. TECHNIQUE: CTA of the chest obtained following the uncomplicated intravenous administration of iodin ated contrast.. 3-D/MIP reformatted images of the chest available for evaluation. This exam was perfo rmed according to our departmental dose-optimization program, which includes automated exposure contr ol, adjustment of the mA and/or kV according to patient size and/or use of iterative reconstruction t echnique. FINDINGS: Chest: Pulmonary arteries: Contrast bolus is adequate.No filling defects identified in the pulmonary arterie s to suggest pulmonary embolus. Thyroid: No abnormalities of the visualized thyroid. Great Vessels: Great vessels have normal anatomic configuration. Thoracic Aorta: Atherosclerotic calcification of the thoracic aorta with normal caliber. No evidence of dissection. Heart: No cardiomegaly, significant pericardial effusion, or coronary artery atherosclerosis Lymph Nodes: No enlarged mediastinal lymph nodes identified. Esophagus: Small hiatal hernia. Other: No additional findings. Lungs: Mild peripheral groundglass opacities with basilar predominance. 0.5 cm solid pulmonary nodule in the right lower lobe best seen on image #48, series #402. Pleura: No pleural effusion or pneumothorax. Trachea/Airways: No abnormalities of the visualized trachea or airways. Bones: Mild multilevel endplate spondylosis. Upper Abdomen: Please see dedicated CT of the abdomen and pelvis performed simultaneously for details regarding abdominal and pelvic structures. IMPRESSION: 1. No pulmonary embolus. 2. Mild peripheral groundglass opacities with basilar predominance. Commonly reported imaging featu res of viral pneumonia are present. Other processes such as influenza pneumonia and organizing pneumo wali, as can be seen with drug toxicity and connective tissue disease, can cause similar imaging patte rn. 3. 0.5 cm solid pulmonary nodule in the right lower lobe. No routine follow-up imaging is recommend ed per Fleischner Society Guidelines. If patient is high risk and 212 month follow-up CT of the chest . These guidelines do not apply to immunocompromised patients and patients with cancer. Follow up in patients with significant comorbidities as clinically warranted. For lung cancer screening, adhere to Lung-RADS guidelines. Reference: Radiology. 2017; 284(1):228-43. Electronically signed by: Bandar Dyer 09/12/2021 10:55 PM CDT Due to temporary technical issues with the PACS/Fluency reporting system, reports are being signed by the in house radiologists without review as a courtesy to insure prompt reporting. The interpreting radiologist is fully responsible for the content of the report.
[2021-09-13] MEDS: HYDROCODONE/APAP 5/325 MG TAB PO PRN ×2 (14:45→21:20)
[2021-09-13] MEDS: PROMETHAZINE-DM 5 ML OSYR PO PRN (14:45)
--- NOTE | 2021-09-13 15:20 | EKG ---
Test Date: 2021-09-12 Test Time: 20:21:23 Cobol Developer: MICHELLE MEASUREMENT RESULTS: Intervals: Rate: 102 CA: 142 QRSD: 76 QT: 324 QTc: 422 [place]: P: 27 CA: 142 QRS: 26 T: 94 INTERPRETIVE STATEMENTS: Sinus tachycardia Cannot rule out Anterior infarct, age undetermined Abnormal ECG Compared to ECG 08/30/2021 19:04:17 Myocardial infarct finding now present Sinus rhythm no longer present Electronically Signed On 09-13-21 15:18:47 CDT by Venkata Long
[2021-09-13] MEDS: dexAMETHasone 4 MG TAB PO SCH (21:21)
[2021-09-14] MEDS: IPRATROPIUM BROM 0.5MG/2.5ML NEB SCH ×4 (01:10→20:30)
[2021-09-14] MEDS: ALBUTEROL 2.5 MG/3 ML NEB SOL NEB SCH ×4 (01:10→20:30)
[2021-09-14 02:49] LABS: Urine Bilirubin Negative (Negative); Urine Blood Negative (Negative); Urine Clarity Clear (Clear); Urine Color Yellow (Yellow); Urine Glucose Negative (Negative); Urine Protein Trace (Negative); Urine Urobilinogen 0.2 mg/dL (0.2-1.0); Urine pH 5.5 (5.0-7.0)
[2021-09-14] MEDS: HYDROCODONE/APAP 5/325 MG TAB PO PRN ×4 (02:52→22:13)
[2021-09-14 03:16] LABS: Renal Epithelial <5 /HPF (None Seen); Urine Bacteria >50 /HPF (<20); Urine Granular Casts 0-5 /LPF (None Seen); Urine Mucus 2+ /HPF (None Seen)
[2021-09-14 03:54] LABS: Absolute Lymphocytes (CBC) 0.7 K/uL (0.7-4.9); Hematocrit 30.8 % (36.0-45.0); MCV 83.5 fL (80-100); MPV 7.9 fL (7.6-11.3); RBC Red Blood Cell Count 3.69 M/uL (3.86-4.86)
[2021-09-14 04:14] LABS: Albumin 2.9 g/dL (3.4-5.0); Bilirubin Total 0.2 mg/dL (0.2-1.0); Protein, Total 6.5 g/dL (6.4-8.2); Thyroid Stimulating Hormone 0.389 uIU/mL (0.360-3.740)
[2021-09-14] MEDS: ASCORBIC ACID 500 MG TABLET PO SCH (10:29)
[2021-09-14] MEDS: AMOX/K CLAV 500 MG TAB PO SCH ×2 (10:30→20:54)
[2021-09-14] MEDS: dexAMETHasone 4 MG TAB PO SCH ×2 (10:30→20:54)
[2021-09-14] MEDS: ENOXAPARIN 40 MG/0.4 ML SQ SCH (10:30)
[2021-09-14] MEDS: ZINC SULFATE 220 MG CAP PO SCH (10:30)
[2021-09-15] MEDS: IPRATROPIUM BROM 0.5MG/2.5ML NEB SCH ×4 (01:40→19:25)
[2021-09-15] MEDS: ALBUTEROL 2.5 MG/3 ML NEB SOL NEB SCH ×4 (01:40→19:25)
[2021-09-15] MEDS: HYDROCODONE/APAP 5/325 MG TAB PO PRN ×2 (05:24→20:01)
[2021-09-15] MEDS: ZINC SULFATE 220 MG CAP PO SCH (08:32)
[2021-09-15] MEDS: ENOXAPARIN 40 MG/0.4 ML SQ SCH (08:32)
[2021-09-15] MEDS: ASCORBIC ACID 500 MG TABLET PO SCH (08:32)
[2021-09-15] MEDS: dexAMETHasone 4 MG TAB PO SCH ×2 (08:32→20:01)
[2021-09-15] MEDS: AMOX/K CLAV 500 MG TAB PO SCH ×2 (08:32→20:02)
[2021-09-15] MEDS: ONDANSETRON 4 MG/2 ML VIAL IV PRN (09:34)
--- NOTE | 2021-09-15 11:57 | P.PN ---
Subjective Date of Service: 09/14/21 Patient continues to improve. Clinical symptoms are better. Still coughing and congested. Needs full liquid diet as she will have syrgery coming up in 1 months Review of Systems 10-point ROS is otherwise unremarkable Physical Examination - Vital Signs Temperature: 96.8 F Blood Pressure: 134/67 Pulse: 72 Respirations: 18 Pulse Ox (%): 97 - Physical Exam General: Alert, In no apparent distress, Oriented x3 HEENT: Atraumatic, PERRLA, EOMI Neck: Supple, JVD not distended Respiratory: Diminished, Expiratory wheezes Cardiovascular: Regular rate/rhythm, Normal S1 S2 Gastrointestinal: Normal bowel sounds, No tenderness Musculoskeletal: No tenderness Integumentary: No rashes Neurological: Normal speech, Normal tone, Normal affect Lymphatics: No axilla or inguinal lymphadenopathy - Studies Medications List Reviewed: Yes Assessment & Plan - Problems (Diagnosis) (1) Pneumonia due to COVID-19 virus Current Visit: Yes Status: Acute (2) Crohn's disease Current Visit: Yes Status: Chronic Qualifiers: Gastrointestinal tract location: small and large intestine Digestive disease complication type: unspecified complication Qualified Code(s): K50.819 - Crohn's disease of both small and large intestine with unspecified complications (3) Hypertension Current Visit: Yes Status: Chronic Qualifiers: Hypertension type: primary hypertension Qualified Code(s): I10 - Essential (primary) hypertension (4) Hypothyroidism Current Visit: Yes Status: Chronic Qualifiers: Hypothyroidism type: acquired Qualified Code(s): E03.9 - Hypothyroidism, unspecified - Plan PLAN: 1. Continue with steroids; patient actually does a slow wean. 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 continue with clear liquid diet; this was recommended by her surgeon at [facility] prior to surgery for stricture from Crohn's disease 3. oxygenating well. Still gets short of breath on ambulating; She is starting to feel better. She does not feel like she is ready to go home at this time. 4. Continue strict blood sugar control 5. GI and DVT prophylaxis Discharge Plan: Home Plan to discharge in: Greater than 2 days - Advance Directives Does patient have a Living Will: Yes Does patient have a Durable POA for Healthcare: No - Code Status/Comfort Care Code Status Assessed: Yes Code Status: Full Code Critical Care: No Time Spent Managing PTS Care (In Minutes): 35
[2021-09-15] MEDS: ACETAMIN/CAFFEINE/BUTALB TAB PO PRN ×2 (13:33→17:49)
[2021-09-15] MEDS: PROMETHAZINE-DM 5 ML OSYR PO PRN ×2 (14:45→20:02)
[2021-09-16] MEDS: ALBUTEROL 2.5 MG/3 ML NEB SOL NEB SCH ×2 (01:35→06:10)
[2021-09-16] MEDS: IPRATROPIUM BROM 0.5MG/2.5ML NEB SCH ×2 (01:35→06:10)
[2021-09-16 05:32] LABS: Absolute Lymphocytes (CBC) 0.8 K/uL (0.7-4.9); Hematocrit 29.6 % (36.0-45.0); Lymphocytes % 11.6 % (15.3-44.8); MCV 83.7 fL (80-100); MPV 7.5 fL (7.6-11.3); RBC Red Blood Cell Count 3.53 M/uL (3.86-4.86)
[2021-09-16 05:48] LABS: Magnesium 1.8 mg/dL (1.8-2.4); Potassium 4.2 mmol/L (3.5-5.1)
[2021-09-16] MEDS ORDERED: MAGNESIUM SULFATE 1 gm IVPB 1 GM/100 ML BAG IV ONE (05:54)
[2021-09-16] MEDS: ONDANSETRON 4 MG/2 ML VIAL IV PRN (06:13)
[2021-09-16] MEDS: ACETAMIN/CAFFEINE/BUTALB TAB PO PRN (06:13)
--- NOTE | 2021-09-16 06:39 | P.PN ---
Date of Service: 09/15/21 Subjective no significant changes. Patient feeling a little bit better today. Continue with clear liquid diet. Tolerating it. Overall she is doing well and anticipate discharge in the morning. Review of Systems 10-point ROS is otherwise unremarkable Physical Examination - Vital Signs Reviewed - Physical Exam General: Alert, In no apparent distress, Oriented x3 Respiratory: Diminished, Expiratory wheezes Cardiovascular: Regular rate/rhythm, Normal S1 S2 Gastrointestinal: Normal bowel sounds, No tenderness Neurological: Normal speech, Normal tone, Normal affect Assessment & Plan - Problems (Diagnosis) (1) Pneumonia due to COVID-19 virus Current Visit: Yes Status: Acute (2) Crohn's disease Current Visit: Yes Status: Chronic Qualifiers: Gastrointestinal tract location: small and large intestine Digestive disease complication type: unspecified complication Qualified Code(s): K50.819 - Crohn's disease of both small and large intestine with unspecified complications (3) Hypertension Current Visit: Yes Status: Chronic Qualifiers: Hypertension type: primary hypertension Qualified Code(s): I10 - Essential (primary) hypertension (4) Hypothyroidism Current Visit: Yes Status: Chronic Qualifiers: Hypothyroidism type: acquired Qualified Code(s): E03.9 - Hypothyroidism, unspecified - Plan continue with Clinical as mentioned below: 1. Continue with steroids; patient actually does a slow wean. 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 continue with clear liquid diet; this was recommended by her surgeon at [facility] prior to surgery for stricture from Crohn's disease 3. oxygenating well. Still gets short of breath on ambulating; She is starting to feel better. Her breathing is improved but she is feeling like she needs an additional day prior to discharge. 4. Continue strict blood sugar control 5. GI and DVT prophylaxis Discharge Plan: Home Plan to discharge in: Greater than 2 days - Advance Directives Does patient have a Living Will: Yes Does patient have a Durable POA for Healthcare: No - Code Status/Comfort Care Code Status Assessed: Yes Code Status: Full Code Critical Care: No Time Spent Managing PTS Care (In Minutes): 35
[2021-09-16 06:43] VITALS: O2SAT 97
--- NOTE | 2021-09-16 07:05 | P.DS ---
Admission Date: 09/13/21 Discharge Date: 09/16/21 Primary Care Provider: Moriah Vasquez NP Disposition: ROUTINE DISCHARGE Discharge Condition: GOOD Reason for Admission: COVID Pneumonia Consultations: None. Hospital Course: DIAGNOSES: # COVID-19 Pneumonia # Early/Partial Small Bowel Obstruction versus Ileus secondary to Chronic Stricture # Crohn's Disease complicated by recurrent small bowel obstructions # Right Lower Lobe Pulmonary Nodule (5 mm) # Bilateral Renal Cysts # Microscopic Hematuria # Hypertension # Hyperlipidemia # Hypothyroidism # Prediabetes # Depression # Gastroesophageal Reflux Disease HOSPITAL COURSE: Ms. Kindra Novoa is a pleasant 66-year-old female with a past medical history significant for Crohn's disease complicated by recurrent small bowel obstructions, hypertension, hyperlipidemia, hypothyroidism, and prediabetes who was admitted to the [facility] on 09/13/2021 for chest pain, cough, nausea, and vomiting. Upon further evaluation, she was found to have COVID-19 pneumonia as well as a possible early/partial small bowel obstruction. She was admitted to the Medicine service and treated with steroids and bronchodilators. Over the course of her hospitalization, she improved significantly and was able to ambulate around her room without de-satting. She is currently maintaining adequate SpO2 readings on room air. She is already on chronic steroids, so her steroid wean will be managed by her Doughnut Fryer. In regards to her possible SBO vs ileus. She has been on a clear liquid diet per her Doughnut Fryer, and she has been able to tolerate this diet without any issues. She has been passing flatus and bowel movements. During her evaluation, she was incidentally noted to have a pulmonary nodule, bilateral renal cysts, and microscopic hematuria. All of these findings were explained to her and she was advised to follow-up with her PCP for further evaluation. She verbalized understanding and stated that she will schedule the follow-up appointment sometime this week. On 09/16/2021, she was seen on morning rounds and deemed medically stable for discharge. She was discharged with instructions to schedule follow-up appointments with her PCP in 3-5 days and her Doughnut Fryer as previously scheduled. She was given the opportunity to ask questions and reported no further questions. Furthermore, all questions were answered to the best of my ability. Today, I personally spent 20 minutes on her case, of which greater than 50% of the time was spent in patient education, counseling, and coordination of care as described above. Vital Signs/Physical Exam: Temp Pulse Resp BP Pulse Ox 96.8 F 72 18 134/67 97 09/16/21 06:37 09/16/21 06:37 09/16/21 06:37 09/16/21 06:37 09/16/21 06:37 General: Alert, In no apparent distress, Oriented x3 HEENT: Atraumatic, PERRLA, Mucous membr. moist/pink, EOMI, Sclerae nonicteric Neck: Supple, Without JVD or thyroid abnormality Respiratory: Clear to auscultation bilaterally, Diminished Cardiovascular: No edema, Regular rate/rhythm, Normal S1 S2, No gallops, No rubs, No murmurs Gastrointestinal: Normal bowel sounds, Soft and benign, No tenderness, No rebound, No guarding Musculoskeletal: No clubbing Integumentary: No rashes Neurological: Normal speech, Cranial nerves 3-12 intact, Normal affect Other Physical/Emotional Findings: She has PICC line in place. States that this was placed as an outpatient for TPN per her Doughnut Fryer Laboratory Data at Discharge: WBC 7.0 K/uL (4.3-10.9) D 09/16/21 05:10 Hgb 9.9 g/dL (12.0-15.0) L 09/16/21 05:10 Hct 29.6 % (36.0-45.0) L 09/16/21 05:10 Plt Count 237 K/uL (152-406) 09/16/21 05:10 Sodium 139 mmol/L (136-145) 09/16/21 05:10 Potassium 4.2 mmol/L (3.5-5.1) 09/16/21 05:10 BUN 16 mg/dL (7-18) 09/16/21 05:10 Creatinine 0.63 mg/dL (0.55-1.3) 09/16/21 05:10 Glucose 103 mg/dL (74-106) 09/16/21 05:10 Magnesium 1.8 mg/dL (1.8-2.4) 09/16/21 05:10 Total Bilirubin 0.2 mg/dL (0.2-1.0) 09/14/21 03:18 AST 20 U/L (15-37) 09/14/21 03:18 ALT 30 U/L (12-78) 09/14/21 03:18 Alkaline Phosphatase 124 U/L (45-117) H 09/14/21 03:18 Triglycerides 134 mg/dL (<150) 09/14/21 03:18 Cholesterol 153 mg/dL (<200) 09/14/21 03:18 HDL Cholesterol 43 mg/dL (40-60) 09/14/21 03:18 Cholesterol/HDL Ratio 3.56 09/14/21 03:18 Lipase 146 U/L (73-393) 09/12/21 20:00 Home Medications: Levothyroxine Sodium 25 mcg PO [id number] 07/27/20 Sertraline [Zoloft*] 200 mg PO BEDTIME 07/27/20 buPROPion HCL [Bupropion HCl] 150 mg PO DAILY 12/10/20 Ondansetron [Zofran (Odt)*] 4 mg PO Q6H PRN #10 tab 03/08/21 Atorvastatin Calcium 10 mg PO DAILY 04/05/21 Metoprolol Succinate [Toprol Xl*] 50 mg PO BID 04/05/21 Acetaminophen 160 mg PO Q4H PRN 06/05/21 Cetirizine HCl [Zyrtec] 1 tab PO DAILY 06/05/21 Hyoscyamine Sulfate [Levsin TAB*] 0.125 tab PO Q4HP PRN 06/05/21 Pantoprazole Sodium [Protonix] 1 tab PO DAILY 06/05/21 Bupropion HCl [Wellbutrin] 1 tab PO BEDTIME 08/04/21 Gatifloxacin 1 drop EACH EYE QID 08/04/21 Amlodipine [Norvasc*] 5 mg PO DAILY 30 Days #30 tab 08/07/21 Lisinopril [Zestril] 5 mg PO DAILY 30 Days #30 tab 08/07/21 predniSONE [Prednisone*] 15 mg PO SEECOM 08/31/21 Hydrocodone 7.5/APAP 325 [[place] 7.5/325 mg*] 1 tab PO Q6H PRN #30 tab 09/01/21 Diet: Clear Liq Activity: Ad jaylen Followup: Moriah Vasquez NP [Primary Care Provider] - 1-2 Weeks (Call for appointment. ) Time spent managing pt's care (in minutes): 20
--- NOTE | 2021-09-16 07:48 | RAD REPORT ---
EXAM DESCRIPTION: QUINNNorberto Single View09/16/2021 7:02 am CLINICAL HISTORY: Pneumonia COMPARISON: September 12 2021 FINDINGS: Mild bilateral pulmonary opacities are unchanged Heart is normal size. PICC line in place
[2021-09-16] MEDS: ASCORBIC ACID 500 MG TABLET PO SCH (07:56)
[2021-09-16] MEDS: dexAMETHasone 4 MG TAB PO SCH (07:57)
[2021-09-16] MEDS: ZINC SULFATE 220 MG CAP PO SCH (07:57)
[2021-09-16] MEDS: AMOX/K CLAV 500 MG TAB PO SCH (07:58)
[2021-09-16] MEDS: ENOXAPARIN 40 MG/0.4 ML SQ SCH (07:59)
[2021-09-16] MEDS: PROMETHAZINE-DM 5 ML OSYR PO PRN (07:59)
[2021-09-16 08:30] VITALS: BP 140/77; TEMP 97.6
== END 2021-09-16 09:23 | disposition home or self-care (01) | DRG 177 ==
LOC: ER 18:13 → ERHOLD 09-13 00:52 → 4TH 09-13 19:57
PROVIDERS: ADMIT Internal Medicine Sleep Medicine; ATTEND Internal Medicine
DX: U07.1 COVID-19 (principal); J12.82 Pneumonia due to coronavirus disease 2019; K50.812 Crohn's disease of both small and large intestine with intestinal obstruction; E03.9 Hypothyroidism, unspecified; I10 Essential (primary) hypertension; R73.03 Prediabetes; E78.5 Hyperlipidemia, unspecified; K21.9 Gastro-esophageal reflux disease without esophagitis; K52.9 Noninfective gastroenteritis and colitis, unspecified; F32.A Depression, unspecified; R91.1 Solitary pulmonary nodule; N28.1 Cyst of kidney, acquired; R31.29 Other microscopic hematuria; Z79.52 Long term (current) use of systemic steroids; Z79.899 Other long term (current) drug therapy; Z88.3 Allergy status to other anti-infective agents; Z91.040 Latex allergy status; Z80.1 Family history of malignant neoplasm of trachea, bronchus and lung; Z82.49 Family history of ischemic heart disease and other diseases of the circulatory system
CPT/HCPCS: 36415; 71045; 71275; 74177; 80048; 80053; 80061; 81001; 83605; 83690; 83735; 83880; 84145; 84443; 84484; 85025; 85652; 86140; 87086; 87088; 93005; 94010; 94760; 99285; J1650; J2270; J2405; J2930; J3475; J7040; J8540; Q9967; U0003

== ENCOUNTER 2021-09-17 14:00 | Inpatient (IN) | payer OTHER ==
--- OUTSIDE RECORDS SUMMARY | 2021-09-17 14:06 | XMS REPORT | Continuity of Care Document ---
:1955 Author Organization [facility] t Address [address] [place] [address] Care Team Providers Name Role Phone Kael MEADOWS MD, Enrique A Primary Care Physician [phone] JENKINS, MARCO Attending Clinician Unavailable JENKINS, MARCO Attending Clinician Unavailable ANIBAL FUNES Attending Clinician Unavailable LESA SINGH Attending Clinician Unavailable MATIAS FRAZIER Attending Clinician Unavailable KIYA PEREZ Attending Clinician Unavailable LANCE PEÑA Attending Clinician Unavailable Matias Frazier MD Attending Clinician OBINNA BRISCOE Attending Clinician Unavailable CHARLY VANN Attending Clinician Unavailable Ace Clemons MD Attending Clinician Javier May MA Attending Clinician Unavailable JENKINS, MARCO Admitting Clinician Unavailable LESA SINGH Admitting Clinician Unavailable LANCE PEÑA Admitting Clinician Unavailable CHARLY VANN Admitting Clinician Unavailable Payers Payer Name Policy Type Policy Number Effective Date Expiration Date S faraz BCBS PPO POS EPO [id number] 2010 CHOICE 00:00:00 PPO/EPO - BCBS [id number] MEDICARE PART A [id number] \T\ B - MEDICARE CVCP-BCBS [id number] Problems Condition Condition Condition Status Onset Resolution Last Treating Co mments Source Name Details Category Date Date Treatment Clinician Date Crohn's Crohn's Disease Active 2020-02 [facility] disease disease 222 [place] (HCCode) (HCCode) 00:00: of 00 Medicin e Essential Essential Disease Active Met hodi hypertensi hypertensi 8-13 [facility] on on 00:00: Hospita 00 l Chest pain Chest pain Disease Active M ethodi 2-02 st 00:00: Hospita 00 l 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:00: Hospita 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 [...] 00 Center Latex Propensi Active Rash 2020-02 [facility] ty to 2-10 College adverse 00:00: of reaction 00 Medicin s to e substanc e NO KNOWN Allergy Active [facility] ALLERGIE S Latex, Propensi Active Itching [facility] Natural ty to st Rubber adverse Hospita reaction l s to drug Family History Family Member Diagnosis Comments Start Date Stop Date Source Natural father [facility] Natural mother Heart disease [facility] Social History Social Habit Start Date Stop Date Quantity Comments Source History [facility] Gnosticism Alcohol Std Drinks Hospit al History [facility] Alcohol [facility] Exposure to 2021-08-17 2021-08-27 Not sure [facility] Colleg e SARS-CoV-2 (event) 00:00:00 08:46:00 of Med icine Cigarettes smoked 2021-08-27 2021-08-27 [facility] current (pack per 00:00:00 00:00:00 of Medi day) - Reported Alcohol intake 2021-08-27 2021-08-27 .14 /d [facility] Col lege 00:00:00 00:00:00 of Medicine Tobacco use and 2021-08-27 2021-08-27 Smokeless tobacco [facility] exposure 00:00:00 00:00:00 non-user of Medicine History [facility] 2018-03-19 2018-03-19 1 Gnostic[facility] Alcohol Frequency 00:00:00 00:00:00 Hospita l History of tobacco 1995-02-04 Cigarette Smoker [facility] use 00:00:00 of Medicine Sex [birth year] F [facility] Co llege 00:00:00 00:00:00 of Medicine Smoking Status Start Date Stop Date Source Ex-smoker 2021-08-27 00:00:00 2021-08-27 00:00:00 [facility] C [facility]lege of Medicine Never smoked tobacco [facility] Eric ege of Medicine Medications Ordered Filled Start Stop Current Ordering Indication Dosage Frequency Signature Comments Components Source Medication Medication Date Date Medication? Clinician (SIG) Name Name atorvastati Yes 10mg Take 10 mg [facility] n (LIPITOR) 7-12 by mouth Eric ege 10 MG 09:06: daily. of tablet 53 Medicin e Cetirizine Yes Take 1 [facility]lo r HCl (ZYRTEC 7-12 Chew Tab Eric ege ALLERGY) 10 09:06: by mouth of MG CAPS 53 daily. Medicin e hyoscyamine 2021-0 Yes .125mg Take 0.125 [facility] (ANASPAZ, 7-12 mg by [facility]) 09:06: mouth of 0.125 MG 53 every 4 Medicin tablet hours as e needed for Cramping. metoprolol 2-0 Yes 50mg Take 50 mg [facility] (TOPROL-XL) 7-12 by mouth Eric ege 50 MG XL 09:06: daily. of tablet 53 Medicin e hyoscyamine 2-0 Yes .125mg Take 0.125 [facility] (ANASPAZ, 7-12 mg by [facility]) 09:06: mouth of 0.125 MG 53 every 4 Medicin tablet hours as e needed for Cramping. gatifloxaci 2021-0 Yes 1[drp] Place 1 [facility] n (ZYMAXID) 7-12 Drop into Col lege 0.5 % 09:06: both eyes of ophthalmic 53 four times Med icin solution daily. e atorvastati 2021-0 Yes 10mg Take 10 mg [facility] n (LIPITOR) 6-28 by mouth Eric ege 10 MG 08:19: daily. of tablet 36 Medicin e Cetirizine 2021-0 Yes Take 1 Baylo r HCl (ZYRTEC 6-28 Chew Tab Eric ege ALLERGY) 10 08:19: by mouth of MG CAPS 36 daily. Medicin e hyoscyamine 2021-0 Yes .125mg Take 0.125 Ran (ANASPAZ, 6-28 mg by [facility]) 08:19: mouth of 0.125 MG 36 every 4 Medicin tablet hours as e needed for Cramping. metoprolol 2-0 Yes 50mg Take 50 mg [facility] (TOPROL-XL) 6-28 by mouth Eric ege 50 MG XL 08:19: daily. of tablet 36 Medicin e pantoprazol 2021-0 Yes 40mg Take 40 mg Ran e 6-28 by mouth [place] (PROTONIX) 08:19: daily. of 40 MG 36 Medicin tablet e hyoscyamine 2021-0 Yes .125mg Take 0.125 Ran (LEVSIN) 6-28 mg by [place] 0.125 MG 08:19: mouth of tablet 36 every 4 Medicin hours as e needed for Cramping. gatifloxaci Yes 1[drp] Place 1 [facility] n (ZYMAXID) 6-28 Drop into Col lege 0.5 % 08:19: both eyes of ophthalmic 36 four times Med icin solution daily. e pantoprazol Yes 40mg Take 40 mg Ran e 6-28 by mouth [place] (PROTONIX) 08:19: daily. of 40 MG 36 Medicin tablet e hyoscyamine Yes .125mg Take 0.125 Ran (ANASPAZ, 5-12 mg by [place] LEVSIN) 14:22: mouth of 0.125 MG 31 every 4 Medicin tablet hours as e needed for Cramping. metoprolol Yes 50mg Take 50 mg [facility] (TOPROL-XL) 5-12 by mouth Eric ege 50 MG XL 14:22: daily. of tablet 31 Medicin e pantoprazol Yes 40mg Take 40 mg [facility] e 5-12 by mouth [place] (PROTONIX) 14:22: daily. of 40 MG 31 Medicin tablet e atorvastati Yes 10mg Take 10 mg [facility] n (LIPITOR) 4-26 by mouth Erci ege 10 MG 15:06: daily. of tablet 43 Medicin e Cetirizine Yes Take 1 Baylo r HCl (ZYRTEC 4-26 Chew Tab Eric ege ALLERGY) 10 15:06: by mouth of MG CAPS 43 daily. Medicin e MINERAL OIL 2021- No Take by Sixto adams [place] 03-29 mouth. [place] 12:06: 00:00 of 07 :00 Medicin e MINERAL OIL 2021- No Take by Sixto adams OR 03-29 mouth. [place] 12:06: 00:00 of 07 :00 Medicin e Mesalamine 2021- No Take by [facility] (PENTASA) 03-29 mouth. [place] 500 MG CPCR 12:04: 00:00 of 57 :00 Medicin e Mesalamine 0 2021- No Take by [facility] (PENTASA) 03-29 mouth. [place] 500 MG CPCR 12:04: 00:00 of 57 :00 Medicin e ferrous 2021-0 2021- No 325mg Take 325 Bayl or sulfate 325 03-29-11 mg by Colleg e (65 Fe) MG 12:04: 00:00 mouth of tablet 30 :00 daily. Medicin e ferrous 2021-0 2021- No 325mg Take 325 Bayl or sulfate 325 03-29- mg by Colleg e (65 Fe) MG 12:04: 00:00 mouth of tablet 30 :00 daily. Medicin e bisacodyl 2021-0 2021- No 5mg Take 5 mg [facility] (DULCOLAX) 03-29 by mouth Eric ege 5 MG EC 12:03: 00:00 daily as of tablet 26 :00 needed for Medicin Constipati e on. Lactobacill 0 2021- No Take by [facility] us 03-29 mouth. [place] (ACIDOPHILU 12:03: 00:00 of S OR) 05 :00 Medicin e Cholecalcif 2021-0 Yes Take by [facility] alex 2-11 mouth. [place] (VITAMIN D) 11:46: of 125 MCG 58 Medicin (5000 UT) e CAPS metFORMIN 2021-0 Yes Take 1 Ran 500 MG TB24 2-11 capsule by Co llege 11:46: mouth of 58 daily. Medicin e Cholecalcif 2021-0 Yes Take by [facility] alex 2-11 mouth. [place] (VITAMIN D) 11:46: of 125 MCG 58 Medicin (5000 UT) e CAPS metFORMIN 2021-0 Yes Take 1 [facility] 500 MG TB24 2-11 capsule by Co llege 11:46: mouth of 58 daily. Medicin e Cholecalcif 2021-0 Yes Take by [facility] alex 2-11 mouth. [place] (VITAMIN D) 11:46: of 125 MCG 58 Medicin (5000 UT) e CAPS metFORMIN 2-0 Yes Take 1 Ran 500 MG TB24 2-11 capsule by Co llege 11:46: mouth of 58 daily. Medicin e Cholecalcif 2021-0 Yes Take by [facility] alex 2-11 mouth. [place] (VITAMIN D) 11:46: of 125 MCG 58 Medicin (5000 UT) e CAPS Cholecalcif 2021-0 Yes Take by [facility] alex 2-11 mouth. [place] (VITAMIN D) 11:46: of 125 MCG 58 Medicin (5000 UT) e CAPS atorvastati Yes 10mg Take 10 mg [facility] n (LIPITOR) 2-11 by mouth Eric ege 10 MG 11:46: daily. of tablet 58 Medicin e Cetirizine Yes Take 1 Baylo r HCl (ZYRTEC 2-11 Chew Tab Eric ege ALLERGY) 10 11:46: by mouth of MG CAPS 58 daily. Medicin e hyoscyamine Yes .125mg Take 0.125 Ran (LEVSIN) 2-11 mg by [place] 0.125 MG 11:46: mouth of tablet 58 [...] 58 Medicin e Acetaminoph Yes Take by [facility] en (TYLENOL 2-11 mouth. Colleg e CHILDRENS) 11:29: Take by of 160 MG/5ML 58 mouth q 4 Medi renea SUSP hours prn e Acetaminoph 0 Yes Take by [facility] en (TYLENOL 2-11 mouth. Colleg e CHILDRENS) 11:29: Take by of 160 MG/5ML 58 mouth q 4 Medi renea SUSP hours prn e Acetaminoph 0 Yes Take by [facility] en (TYLENOL 2-11 mouth. Colleg e CHILDRENS) 11:29: Take by of 160 MG/5ML 58 mouth q 4 Medi renea SUSP hours prn e Acetaminoph 0 Yes Take by [facility] en (TYLENOL 2-11 mouth. Colleg e CHILDRENS) 11:29: Take by of 160 MG/5ML 58 mouth q 4 Medi renea SUSP hours prn e predniSONE Yes [id number] 20mg Take 1 [facility] (DELTASONE) 2-11 Tablet by Col lege 20 MG 00:00: mouth of tablet 00 daily. Medicin Taper by 5 e mg every week. predniSONE 2022-0 Yes [id number] Take 20 mg Ran (DELTASONE) 2-11 po qd. Colleg e 5 MG tablet 00:00: Start of 00 tapering Medicin off by 5 e mg every 7 days after the 04/08/21. predniSONE 2021-0 Yes [id number] 20mg Take 1 [facility] (DELTASONE) 2-11 Tablet by Col lege 20 MG 00:00: mouth of tablet 00 daily. Medicin Taper by 5 e mg every week. predniSONE 2021-0 Yes [id number] Take 20 mg [facility] (DELTASONE) 2-11 po qd. Colleg e 5 MG tablet 00:00: Start of 00 tapering Medicin off by 5 e mg every 7 days after the 04/08/21. predniSONE 2021-0 Yes [id number] 20mg Take 1 [facility] (DELTASONE) 2-11 Tablet by Col lege 20 MG 00:00: mouth of tablet 00 daily. Medicin Taper by 5 e mg every week. predniSONE 2021-0 Yes [id number] Take 20 mg [facility] (DELTASONE) 2-11 po qd. Colleg e 5 MG tablet 00:00: Start of 00 tapering Medicin off by 5 e mg every 7 days after the 04/08/21. predniSONE 2021-0 Yes [id number] 20mg Take 1 [facility] (DELTASONE) 2-11 Tablet by Col lege 20 MG 00:00: mouth of tablet 00 daily. Medicin Taper by 5 e mg every week. MINERAL OIL 2020-02 Yes Take by [facility] OR 2-10 mouth. [place] 09:20: of 34 Medicin e Cholecalcif 2020-02 Yes Take by [facility] alex 2-10 mouth. [place] (VITAMIN D) 09:20: of 125 MCG 34 Medicin (5000 UT) e CAPS ferrous 2020-02 Yes 325mg Take 325 Baylo r sulfate 2-10 mg by [place] (FEROSUL) 09:19: mouth of 325 (65 Fe) 41 daily. Medici n MG tablet e Mesalamine 2020-02 Yes Take by [facility] or (PENTASA) 2-10 mouth. [place] 500 MG CPCR 09:19: of 41 Medicin e predniSONE 2020-02 Yes [facility] (DELTASONE) 1-26 College 20 MG 00:00: of tablet 00 Medicin e predniSONE 2020-02- No 20mg Take 20 mg [facility] (DELTASONE) 03-13 by mouth Col lege 20 MG 00:00: 00:00 daily. of tablet 00 :00 Medicin e predniSONE 2020-02- No 20mg Take 20 mg [facility] (DELTASONE) 03-13 by mouth Col lege [...] Yes 40mg Take 40 mg [facility] e 12 by [facility] (PROTONIX) 00:00: daily. of 40 MG 00 Medicin tablet e pantoprazol 2020-02- No 40mg Take 40 mg [facility] e 02-27 by [facility] (PROTONIX) 00:00: 00:00 daily. of 40 MG 00 :00 Medicin tablet e pantoprazol 2020-02- No 40mg Take 40 mg Ran e 02-27 by mouth [place] (PROTONIX) 00:00: 00:00 daily. of 40 MG 00 :00 Medicin tablet e lisinopril 2020-02 Yes 1 po daily [facility] (PRINIVIL, 02-23 in the [facility]) 5 00:00: morning of MG tablet 00 Medicin e lisinopril 2020-02 Yes 1 po daily [facility] (PRINIVIL, 02-23 in [facility]) 5 00:00: morning of MG tablet 00 Medicin e lisinopril 2020-02 Yes 1 po daily [facility] (PRINIVIL, 02-23 in [facility]) 5 00:00: morning of MG tablet 00 Medicin e lisinopril 2020-02 Yes 1 po daily [facility] (PRINIVIL, 02-23 in [facility]) 5 00:00: morning of MG tablet 00 Medicin e lisinopril 2020-02 Yes 1 po daily [facility] (PRINIVIL, 02-23 in the [facility]) 5 00:00: morning of MG tablet 00 Medicin e lisinopril 2020-02 Yes 1 po daily [facility] (PRINIVIL, 02-23 in the [facility]) 5 00:00: morning of MG tablet 00 Medicin e sertraline 2020-02 Yes Ran (ZOLOFT) 02-17 [place] 100 MG 00:00: of tablet 00 Medicin e sertraline 2020-02 Yes Ran (ZOLOFT) 02-17 [place] 100 MG 00:00: of tablet 00 Medicin e buPROPion 2020-02 Yes TAKE 2 [facility] (WELLBUTRIN 1-02 TABLETS BY Co llege ) 75 MG 00:00: MOUTH of tablet 00 EVERY Medicin MORNING e AND 1 TABLET BY MOUTH EVERY EVENING buPROPion 2020-02 Yes TAKE 2 [facility] (WELLBUTRIN 1-02 TABLETS BY Co llege ) 75 MG 00:00: MOUTH of tablet 00 EVERY Medicin MORNING e AND 1 TABLET BY MOUTH EVERY EVENING sertraline 2020-02 Yes [facility] (ZOLOFT) 02-17 [place] 100 MG 00:00: of tablet 00 Medicin e buPROPion 2020-02 Yes TAKE 2 [facility] (WELLBUTRIN 1-02 TABLETS BY Co llege ) 75 MG 00:00: MOUTH of tablet 00 EVERY Medicin MORNING e AND 1 TABLET BY MOUTH EVERY EVENING sertraline 2020-02 Yes [facility] (ZOLOFT) 1-02 College 100 MG 00:00: of tablet 00 Medicin e buPROPion 2020-02 Yes TAKE 2 [facility] (WELLBUTRIN 1-02 TABLETS BY Co llege ) 75 MG 00:00: MOUTH of tablet 00 EVERY Medicin MORNING e AND 1 TABLET BY MOUTH EVERY EVENING sertraline 2020-02 Yes [facility] (ZOLOFT) 1 College 100 MG 00:00: of tablet 00 Medicin e buPROPion 2020-02 Yes TAKE 2 [facility] (WELLBUTRIN 1-02 TABLETS BY Co llege ) 75 MG 00:00: MOUTH of tablet 00 EVERY Medicin MORNING e AND 1 TABLET BY MOUTH EVERY EVENING sertraline 2020-02 Yes [facility] (ZOLOFT) 1 College 100 MG 00:00: of tablet 00 Medicin e buPROPion 2020-02 Yes TAKE 2 [facility] (WELLBUTRIN 1-02 TABLETS BY Co llege ) 75 MG 00:00: MOUTH of tablet 00 EVERY Medicin MORNING e AND 1 TABLET BY MOUTH EVERY EVENING Adalimumab 2020-02 Yes [facility] (HUMIRA 0-25 [place] PEN) 40 00:00: of MG/0.8ML 00 Medicin injection e Adalimumab 2020-02- No [facility] (HUMIRA 0-25 01-14 [place] PEN) 40 00:00: 00:00 of MG/0.8ML 00 :00 Medicin injection e levothyroxi Yes levothyrox [facility] 09-17 [facility] 25 mcg [place] (SYNTHROID) 00:00: tablet of 25 MCG 00 TAKE 1 Medicin tablet TABLET BY e MOUTH DAILY IN THE MORNING WITH JUST A SIP OF WATER. WAIT 30 MINUTES BEFORE EATING OR DRINKING ANYTHING levothyroxi Yes levothyrox [facility] 8 ine 25 mcg [place] (SYNTHROID) 00:00: tablet of 25 MCG 00 TAKE 1 Medicin tablet TABLET BY e MOUTH DAILY IN THE MORNING WITH JUST A SIP OF WATER. WAIT 30 MINUTES BEFORE EATING OR DRINKING ANYTHING levothyroxi 2021-[address] [facility] 09-17 ine 25 mcg [place] (SYNTHROID) 00:00: tablet of 25 MCG 00 TAKE 1 Medicin tablet TABLET BY e MOUTH DAILY IN THE MORNING WITH JUST A SIP OF WATER. WAIT 30 MINUTES BEFORE EATING OR DRINKING ANYTHING levothyroxi [address] [facility] 09-17 ine 25 mcg [place] (SYNTHROID) 00:00: tablet of 25 MCG 00 TAKE 1 Medicin tablet TABLET BY e MOUTH DAILY IN THE MORNING WITH JUST A SIP OF WATER. WAIT 30 MINUTES BEFORE EATING OR DRINKING ANYTHING levothyroxi [address] [facility] 09-17 ine 25 mcg [place] (SYNTHROID) 00:00: tablet of 25 MCG 00 TAKE 1 Medicin tablet TABLET BY e MOUTH DAILY IN THE MORNING WITH JUST A SIP OF WATER. WAIT 30 MINUTES BEFORE EATING OR DRINKING ANYTHING levothyroxi [address] [facility] 09-17 ine 25 mcg [place] (SYNTHROID) 00:00: tablet of 25 MCG 00 TAKE 1 Medicin tablet TABLET BY e MOUTH DAILY IN THE MORNING WITH JUST A SIP OF WATER. WAIT 30 MINUTES BEFORE EATING OR DRINKING ANYTHING lisinopriL- 0 Yes [id number] 1{tbl} QD TAKE 1 [facility] hydrochloro 7-[address] [facility] 00:00: MOUTH [facility]osp[facility] (PRINZIDE) 00 DAILY l 10-12.5 mg per tablet metoprolol 0 Yes [id number] TAKE 1 [facility] tartrate 7-29 TABLET(50 st (LOPRESSOR) 00:00: MG) BY [facility]osp [facility] 50 mg 00 MOUTH l tablet TWICE DAILY metoprolol 0 2020- No [id number] TAKE 1 M ethodi tartrate 4-26 07-29 TABLET(50 st (LOPRESSOR) 00:00: 00:00 MG) BY Hos alba 50 mg 00 :00 MOUTH l tablet TWICE DAILY lisinopriL- 2020-0 2020- No [id number] 1{tbl} QD TAKE 1 [facility] hydrochloro 4-26 07-[address] [facility]iazide 00:00: 00:00 MOUTH [facility] (PRINZIDE) 00 :00 DAILY l 10-12.5 mg per tablet lisinopriL- 2020-0 2020- No [id number] 1{tbl} QD Take 1 [facility] hydrochloro 1-25 04-[address] [facility]iazide 00:00: 00:00 mouth [facility]osp[facility] (PRINZIDE) 00 :00 daily. l 10-12.5 mg per tablet metoprolol 2020- No [id number] 50mg Q.5D Take 1 M ethodi tartrate 03-12 tablet (50 st (LOPRESSOR) 00:00: 00:00 mg total) Hospita 50 mg 00 :00 by mouth 2 l tablet (two) times a day. lisinopril- 2020- No [id number] 1{tbl} QD TAKE 1 [facility] hydrochloro 03-[address] thiazide 00:00: 00:00 MOUTH [facility] (PRINZIDE) 00 :00 DAILY l 10-12.5 mg per tablet metoprolol 2020- No [id number] TAKE 1 M ethodi tartrate 03-17 TABLET(50 st (LOPRESSOR) 00:00: 00:00 MG) BY Hos [facility] 50 mg 00 :00 MOUTH l tablet TWICE DAILY sertraline Yes sertraline [facility] (ZOLOFT) 50 - 50 mg College MG tablet 00:00: tablet of 00 Medicin e sertraline 2021- No sertraline [facility] (ZOLOFT) 50 -03 20- 50 mg Colleg e MG tablet 00:00: 00:00 tablet of 00 :00 Medicin e sertraline 2021- No sertraline [facility] (ZOLOFT) 50 -03 20- 50 mg Colleg e MG tablet 00:00: [...] mvit,calc,m Yes Take by Met brianne in-folic [address] [id number] 16:39: Hospita 200 mcg 47 l tablet coenzyme Yes [facility] Q10 (CO 09-23 st Q-10) 100 00:00: Hospita mg capsule 00 l cholecalcif Yes Method i alex, 09-17 st vitamin D3, 00:00: Hospit a (VITAMIN 00 l D3) 5,000 unit tablet docusate Yes [facility] sodium 8 st (COLACE) 00:00: Hospita 100 MG 00 l capsule ferrous Yes [facility] sulfate 325 09-01 st (65 FE) MG 00:00: Hospita tablet 00 l sertraline Yes [facility] (ZOLOFT) 15 st 100 MG 00:00: Hospita tablet 00 l Vital Signs Vital Name Observation Time Observation Value Comments Source Systolic blood 2021-08-27 14:02:00 95 mm[Hg] [facility] pressure Medicine Diastolic blood 2021-08-27 14:02:00 56 mm[Hg] [facility] Heart rate 2021-08-27 14:02:00 76 /min sp02 97 [facility] Body temperature 2021-08-27 14:02:00 36.72 Nadiya [facility] Respiratory rate 2021-08-27 14:02:00 16 /min [facility] Body height 2021-08-27 14:02:00 154.9 cm [facility] Body weight 2021-08-27 14:02:00 116.756 kg [facility] BMI 2021-08-27 14:02:00 48.64 kg/m2 [facility] WEIGHT 2021-08-15 05:40:00 111.9 kg WEIGHT 2021-08-14 06:00:00 112.9 kg WEIGHT 2021-08-15 05:40:00 111.9 kg WEIGHT 2021-08-14 06:00:00 112.9 kg Systolic blood 2021-08-13 13:12:00 131 mm[Hg] [facility] pressure Medicine Diastolic blood 2021-08-13 13:12:00 84 mm[Hg] [facility] Heart rate 2021-08-13 13:12:00 63 /min spo2 97 [facility] Body temperature 2021-08-13 13:12:00 36.67 Nadiya [facility] Body height 2021-08-13 13:12:00 154.9 cm [facility] C [facility]lege of Medicine Body weight 2021-08-13 13:12:00 115.032 kg [facility] C [facility] BMI 2021-08-13 13:12:00 47.92 kg/m2 [facility] ol[facility] of Medicine Systolic blood 2021-06-27 19:19:00 111 mm[Hg] [facility] pressure Medicine Diastolic blood 2021-06-27 19:19:00 70 mm[Hg] [facility] Heart rate 2021-06-27 19:19:00 67 /min [facility] Body temperature 2021-06-27 19:19:00 36.11 Nadiya [facility] Respiratory rate 2021-06-27 19:19:00 16 /min [facility] Body height 2021-06-27 19:19:00 154.9 cm [facility] Body weight 2021-06-27 19:19:00 109.77 kg [facility] BMI 2021-06-27 19:19:00 45.73 kg/m2 [facility] C [facility] of Medicine WEIGHT 2021-05-17 12:46:00 52.98 kg WEIGHT 2021-05-17 06:25:00 107.911 kg WEIGHT 2021-05-17 12:46:00 52.98 kg WEIGHT 2021-05-17 06:25:00 107.911 kg Body weight 2021-03-29 17:28:00 110.678 kg [facility] BMI 2021-03-29 17:28:00 46.10 kg/m2 [facility] ol[facility] of Medicine Systolic blood 2021-03-29 17:28:00 143 mm[Hg] [facility] pressure Medicine Diastolic blood 2021-03-29 17:28:00 82 mm[Hg] [facility] Heart rate 2021-03-29 17:28:00 60 /min [facility] Body temperature 2021-03-29 17:28:00 36.22 Nadiya [facility] Respiratory rate 2021-03-29 17:28:00 16 /min [facility] Body height 2021-03-29 17:28:00 154.9 cm [facility] Body height 2021-03-01 15:04:00 154.9 cm [facility] Body weight 2021-03-01 15:04:00 107.593 kg [facility] BMI 2021-03-01 15:04:00 44.82 kg/m2 [facility] HEIGHT 2021-02-03 05:20:00 154.9 cm WEIGHT 2021-02-03 05:20:00 106.505 kg HEIGHT 2021-02-03 05:20:00 154.9 cm WEIGHT 2021-02-03 05:20:00 106.505 kg Systolic blood 2021-01-25 15:06:00 122 mm[Hg] [facility] Medicine Diastolic blood 2021-01-25 15:06:00 80 mm[Hg] [facility] Heart rate 2021-01-25 15:06:00 81 /min [facility] Body temperature 2021-01-25 15:06:00 36.28 Nadiya [facility] Respiratory rate 2021-01-25 15:06:00 14 /min [facility] Body height 2021-01-25 15:06:00 154.9 cm [facility] Body weight 2021-01-25 15:06:00 106.142 kg [facility] BMI 2021-01-25 15:06:00 44.21 kg/m2 [facility] Procedures Procedure Date / Time Performing Clinician Source Performed CBC W/AUTO DIFF WITH 2021-07-16 09:57:55 [facility] BASIC METABOLIC PANEL 2021-07-16 09:57:55 [facility] HEPATIC FUNCTION PANEL 2021-07-16 09:57:55 [facility] SEDIMENTATION RATE 2021-07-16 09:57:55 [facility] Co llege of [facility] [place] Medicine TREATMENT CONDITIONS 2021-07-16 09:57:55 [facility] Plan of Care Planned Activity Planned Date Details Comments Source Future Scheduled 2021-08-27 Screening for malignant [facility] of Test 09:36:56 neoplasm of colon Medicine (procedure) [code = [id number]] Future Scheduled 2021-08-27 Screening for malignant [facility] of Test 09:36:56 neoplasm of breast Medicine (procedure) [code = [id number]] Future Scheduled 2021-08-27 TETANUS SHOT (ADULT) [facility] [facility] Test 09:36:56 [code = TETANUS SHOT Medicin e (ADULT)] Future Scheduled 2021-08-27 BMI FOLLOW UP PLAN [code [facility] Test 09:36:56 = BMI FOLLOW UP PLAN] Medici ne Future Scheduled 2021-08-27 Hepatitis C screening [facility] Test 09:36:56 (procedure) [code = Medicine [id number]] Future Scheduled 2021-08-27 ZOSTER VACCINE (1 of 2) [facility] Test 09:36:56 [code = ZOSTER VACCINE (1 Me dicine of 2)] Future Scheduled 2021-08-27 COVID-19 Vaccine (2 - [facility] Test 09:36:56 Pfizer series) [code = Medic ine COVID-19 Vaccine (2 - Pfizer series)] Future Scheduled 2021-08-27 MEDICARE IPPE (WELCOME TO [facility] Test 09:36:56 MEDICARE) [code = Medicine MEDICARE IPPE (WELCOME TO MEDICARE)] Future Scheduled 2021-08-27 FALL SCREEN [code = FALL [facility] Test 09:36:56 SCREEN] Medicine Future Scheduled 2021-08-27 Screening for [facility] of Test 09:36:56 osteoporosis (procedure) Med icine [code = 253249797] Future Scheduled 2021-08-27 Pneumococcal 65+ (1 - [facility] Test 09:36:56 PCV) [code = Pneumococcal Me dicine 65+ (1 - PCV)] Future Scheduled 2021-08-27 FLU VACCINE > 6 MONTHS B [facility] Test 09:36:56 [code = FLU VACCINE > 6 Medi cine MONTHS] Future Scheduled 2021-08-13 Screening for malignant [facility] Test 08:16:08 neoplasm of colon Medicine (procedure) [code = 304638787] Future Scheduled 2021-08-13 Screening for malignant [facility] Test 08:16:08 neoplasm of breast Medicine (procedure) [code = 500543114] Future Scheduled 2021-08-13 TETANUS SHOT (ADULT) [facility] Test 08:16:08 [code = TETANUS SHOT Medicin e (ADULT)] Future Scheduled 2021-08-13 BMI FOLLOW UP PLAN [code [facility] Test 08:16:08 = BMI FOLLOW UP PLAN] Medici ne Future Scheduled 2021-08-13 Hepatitis C screening [facility] Test 08:16:08 (procedure) [code = Medicine [id number]] Future Scheduled 2021-08-13 ZOSTER VACCINE (1 of 2) [facility] Test 08:16:08 [code = ZOSTER VACCINE (1 Me dicine of 2)] Future Scheduled 2021-08-13 COVID-19 Vaccine (2 - [facility] Test 08:16:08 Pfizer series) [code = Medic ine COVID-19 Vaccine (2 - Pfizer series)] Future Scheduled 2021-08-13 MEDICARE IPPE (WELCOME TO [facility] Test 08:16:08 MEDICARE) [code = Medicine MEDICARE IPPE (WELCOME TO MEDICARE)] Future Scheduled 2021-08-13 FALL SCREEN [code = FALL [facility] Test 08:16:08 SCREEN] Medicine Future Scheduled 2021-08-13 Screening for [facility] of Test 08:16:08 osteoporosis (procedure) Med icine [code = 240087997] Future Scheduled 2021-08-13 Pneumococcal 65+ (1 - [facility] Test 08:16:08 PCV) [code = Pneumococcal Me dicine 65+ (1 - PCV)] Future Scheduled 2021-08-13 FLU VACCINE > 6 MONTHS B [facility] Test 08:16:08 [code = FLU VACCINE > 6 Medi cine MONTHS] Future Scheduled 2021-06-27 Screening for malignant [facility] Test 14:20:32 neoplasm of colon Medicine (procedure) [code = 221136531] Future Scheduled 2021-06-27 Screening for malignant [facility] Test 14:20:32 neoplasm of breast Medicine (procedure) [code = 632700401] Future Scheduled 2021-06-27 TETANUS SHOT (ADULT) [facility] Test 14:20:32 [code = TETANUS SHOT Medicin e (ADULT)] Future Scheduled 2021-06-27 BMI FOLLOW UP PLAN [code [facility] Test 14:20:32 = BMI FOLLOW UP PLAN] Medici ne Future Scheduled 2021-06-27 Hepatitis C screening [facility] Test 14:20:32 (procedure) [code = Medicine 202003184] Future Scheduled 2021-06-27 ZOSTER VACCINE (1 of 2) [facility] Test 14:20:32 [code = ZOSTER VACCINE (1 Me dicine of 2)] Future Scheduled 2021-06-27 COVID-19 Vaccine (2 - [facility] Test 14:20:32 Pfizer 3-dose series) Medici ne [code = COVID-19 Vaccine (2 - Pfizer 3-dose series)] Future Scheduled 2021-06-27 MEDICARE IPPE (WELCOME TO [facility] Test 14:20:32 MEDICARE) [code = Medicine MEDICARE IPPE (WELCOME TO MEDICARE)] Future Scheduled 2021-06-27 FALL SCREEN [code = FALL [facility] Test 14:20:32 SCREEN] Medicine Future Scheduled 2021-06-27 Screening for [facility] of Test 14:20:32 osteoporosis (procedure) Med icine [code = 200563118] Future Scheduled 2021-06-27 Pneumococcal 65+ (1 of 1 [facility] Test 14:20:32 - PPSV23) [code = Medicine Pneumococcal 65+ (1 of 1 - PPSV23)] Future Scheduled 2021-06-27 FLU VACCINE > 6 MONTHS B [facility] of Test 14:20:32 [code = FLU VACCINE > 6 Medi cine MONTHS] Future Scheduled 2021-04-04 Screening for malignant [facility] Test 13:40:02 neoplasm of colon Medicine (procedure) [code = 004883737] Future Scheduled 2021-04-04 Screening for malignant [facility] Test 13:40:02 neoplasm of breast Medicine (procedure) [code = 176172008] Future Scheduled 2021-04-04 TETANUS SHOT (ADULT) [facility] Test 13:40:02 [code = TETANUS SHOT Medicin e (ADULT)] Future Scheduled 2021-04-04 BMI FOLLOW UP PLAN [code [facility] Test 13:40:02 = BMI FOLLOW UP PLAN] Medici ne Future Scheduled 2021-04-04 Hepatitis C screening [facility] Test 13:40:02 (procedure) [code = Medicine 898311473] Future Scheduled 2021-04-04 Human immunodeficiency B [facility] of Test 13:40:02 virus screening Medicine (procedure) [code = 540748530] Future Scheduled 2021-04-04 Screening for malignant [facility] Test 13:40:02 neoplasm of cervix Medicine (procedure) [code = 493945017] Future Scheduled 2021-04-04 ZOSTER VACCINE (1 of 2) [facility] Test 13:40:02 [code = ZOSTER VACCINE (1 Me dicine of 2)] Future Scheduled 2021-04-04 FLU VACCINE > 6 MONTHS B [facility] Test 13:40:02 [code = FLU VACCINE > 6 Medi cine MONTHS] Future Scheduled 2021-04-04 COVID-19 Vaccine (2 - [facility] Test 13:40:02 Pfizer 3-dose series) Medici ne [code = COVID-19 Vaccine (2 - Pfizer 3-dose series)] Future Scheduled 2021-04-04 Screening for malignant [facility] Test 13:40:02 neoplasm of colon Medicine (procedure) [code = 537471127] Future Scheduled 2021-04-04 Screening for malignant [facility] Test 13:40:02 neoplasm of breast Medicine (procedure) [code = 947224820] Future Scheduled 2021-04-04 TETANUS SHOT (ADULT) [facility] Test 13:40:02 [code = TETANUS SHOT Medicin e (ADULT)] Future Scheduled 2021-04-04 BMI FOLLOW UP PLAN [code [facility] Test 13:40:02 = BMI FOLLOW UP PLAN] Medici ne Future Scheduled 2021-04-04 Hepatitis C screening [facility] of Test 13:40:02 (procedure) [code = Medicine 224028888] Future Scheduled 2021-04-04 Human immunodeficiency B [facility] Test 13:40:02 virus screening Medicine (procedure) [code = 518804530] Future Scheduled 2021-04-04 Screening for malignant [facility] Test 13:40:02 neoplasm of cervix Medicine (procedure) [code = 216409420] Future Scheduled 2021-04-04 ZOSTER VACCINE (1 of 2) [facility] Test 13:40:02 [code = ZOSTER VACCINE (1 Me dicine of 2)] Future Scheduled 2021-04-04 FLU VACCINE > 6 MONTHS B [facility] Test 13:40:02 [code = FLU VACCINE > 6 Medi cine MONTHS] Future Scheduled 2021-04-04 COVID-19 Vaccine (2 - [facility] Test 13:40:02 Pfizer 3-dose series) Medici ne [code = COVID-19 Vaccine (2 - Pfizer 3-dose series)] Future Scheduled 2021-01-25 Screening for malignant [facility] Test 09:15:59 neoplasm of colon Medicine (procedure) [code = 315214361] Future Scheduled 2021-01-25 Screening for malignant [facility] Test 09:15:59 neoplasm of breast Medicine (procedure) [code = 800000943] Future Scheduled 2021-01-25 TETANUS SHOT (ADULT) [facility] Test 09:15:59 [code = TETANUS SHOT Medicin e (ADULT)] Future Scheduled 2021-01-25 Hepatitis C screening [facility] Test 09:15:59 (procedure) [code = Medicine 944978488] Future Scheduled 2021-01-25 Human immunodeficiency B [facility] Test 09:15:59 virus screening Medicine (procedure) [code = 741839253] Future Scheduled 2021-01-25 Screening for malignant [facility] Test 09:15:59 neoplasm of cervix Medicine (procedure) [code = 841946400] Future Scheduled 2021-01-25 ZOSTER VACCINE (1 of 2) [facility] Test 09:15:59 [code = ZOSTER VACCINE (1 Me dicine of 2)] Future Scheduled 2021-01-25 FLU VACCINE > 6 MONTHS B [facility] Test 09:15:59 [code = FLU VACCINE > 6 Medi cine MONTHS] Future Scheduled 2021-01-25 COVID-19 Vaccine (2 - [facility] Test 09:15:59 Pfizer 2-dose series) Medici ne [code = COVID-19 Vaccine (2 - Pfizer 2-dose series)] Future Scheduled COVID-19 VACCINE (1) [facility] [code = COVID-19 VACCINE Hos pital (1)] Future Scheduled Hepatitis C screening [facility] (procedure) [code = Hospital 409781092] Future Scheduled Screening for malignant [facility] neoplasm of cervix Hospital (procedure) [code = 829699496] Future Scheduled BREAST CANCER SCREENING [facility] [code = BREAST CANCER Hospit al SCREENING] Future Scheduled COLONOSCOPY SCREENING [facility] [code = COLONOSCOPY Hospital SCREENING] Future Scheduled SHINGLES VACCINES (#1) [facility] Test [code = SHINGLES VACCINES Ho spital (#1)] Future Scheduled INFLUENZA VACCINE [code = [facility] INFLUENZA VACCINE] Hospital Encounters Start End Encounter Admission Attending Care Care Encounter Source Date/Time Date/Time Type Type Clinicians Facility Department ID 2021-09-11 Inpatient [facility] Surgery [id number] [facility] 10:44:45 2021-09-17 2021-09-17 Outpatient GREGORY [facility] [id number] [facility] 12:47:54 13:23:39 [facility] Medicin e 2021-08-27 2021-08-27 [facility] 1.2.840.114 [id number] [facility] 08:46:50 11:11:12 Visit Purvi 350.1.13.21 Co llege 0.2.7.2.686 of [id number] Medi renea 510 e 2021-08-13 2021-08-15 Inpatient [facility] [id number] [facility] 13:37:00 20:00:00 [facility] 2021-08-13 2021-08-13 Office JENKINS [facility] 1.2.840.114 [id number] [facility] 07:25:12 09:53:42 Visit Purvi 350.1.13.21 Co llege 0.2.7.2.686 of [id number] Medi renea 510 e 2021-07-16 2021-07-16 Outpatient [facility] [id number] [facility] 08:53:05 23:59:00 Colleg e of Medicin e 2021-06-27 2021-06-27 Office ADINA FRAZIER 1.2.840.114 [id number] [facility] 13:13:17 16:06:41 Visit MANREET AMBULATOR 350.1.13.21 College Y 0.2.7.2.686 of [id number] Medi renea 325 e 2021-06-11 2021-06-11 Outpatient JENKINS, MARCO [facility] [id number] [facility] 14:50:55 15:38:46 Colleg e of Medicin e 2021-05-20 2021-05-20 [facility] [id number] [facility] 08:32:32 23:59:00 Colleg e of Medicin e 2021-05-17 2021-05-19 [facility]patient [facility] [id number] [facility] 05:35:00 16:42:00 AHMED 2021-05-17 2021-05-17 [facility] [id number] [facility] 00:00:00 23:59:00 Colleg e of Medicin e 2021-04-22 2021-04-22 Outpatient [facility] [id number] [facility] 08:34:02 23:59:00 Colleg e of Medicin e 2021-04-08 2021-04-08 Outpatient [facility] [id number] [facility] 08:22:34 23:59:00 Colleg e of Medicin e 2021-03-29 2021-03-29 Office ADINA Frazier 1.2.840.114 [id number] [facility] 11:00:00 13:34:50 Visit Manreet AMBULATOR 350.1.13.21 College Y 0.2.7.2.686 of [id number] Medi renea 325 e 2021-03-01 2021-03-01 Office ADINA Frazier 1.2.840.114 [id number] [facility] 09:00:00 11:07:59 Visit Manreet AMBULATOR 350.1.13.21 College Y 0.2.7.2.686 of [id number] Medi renea 325 e 2021-02-03 2021-02-06 Inpatient ER [facility] [id number] [facility] 05:14:00 16:07:00 LIYA-JAMAL 2021-01-25 2021-01-25 Office ADINA FRAZIER 1.2.840.114 [id number] [facility] 00:00:00 19:54:04 Visit MANREET AMBULATOR 350.1.13.21 College Y 0.2.7.2.686 of [id number] [facility] renea 325 e 2020-09-12 2020-09-12 Refill Kaci, 1.2.840.1 [id number] [facility] 00:00:00 00:00:00 [place] [address] 3.430.2.7 Hospit a .3.008555 l .8 2020-06-11 2020-06-11 Refill Kaci, 1.2.840.1 [id number] [facility] 00:00:00 00:00:00 Ace R. [address]1172.1.[address] 3.430.2.7 Hospit a .3.921132 l .8 2020-03-12 2020-03-12 Orders Le, Javier 1.2.840.1 [id number] [facility] 00:00:00 00:00:[address] 3.430.2.7 Hospit a .3.230729 l .8 Results Test Description Test Time Test Comments Results Result [facility] e Comments MR, ENTEROGRAPHY, 2021-07-19 Unlisted ABDOMEN / PELVIS, 0 Reason for WITHOUT / WITH IV 16:25:00 Exam - Click CHI LUENID - CONTRAST Yes and Enter [facility]ENTER[facility]: PROSPER, Rosamaria DURONIANNA GARCIA : Below->No 1955 Sex: F FINAL REPORT [...] wall thickening, possibly chronic cholecystitis. Signed: Christopher Vega MDReport Verified Date/Time: 08/15/2021 16:25:49 Reading Location: [facility] C013Y CT Body Reading Room C METABOLIC [...] NOT 1092) ACCURATE CRE ATININE CLEARANCE IN MD EDICTING GLOMERULAR FILT RATION RATE. ESTIMATED GFR IS NOT APPLICABLE FOR DIALYSIS PATIENTS. Varnish Mixer ID - [id number] 06:25:19 Test Item Value Reference Range Interpretation Comments MAGNESIUM (BEAKER) (test code = 2.5 mg/dL 1.6-2.6 627) [facility] ID - [id number] 06:25:19 Test Item Value Reference Range Interpretation Comments PHOSPHORUS (BEAKER) (test code = 2.7 mg/dL 2.3-4.7 604) Varnish Mixer ID - BSCBC W/PLT COUNT & AUTO [id number] 05:50:37 Test Item Value Reference Range Interpretation [...] 0-1 PERCENT (BEAKER) (test code = 2801) [id number] 14:14:38 Test Item Value Reference Range Interpretation Comments TRIGLYCERIDES (BEAKER) (test code = 163 mg/dL 540) TRIGLYCERIDE REFERENCE RANGELow Risk <150Borderline Risk 150-199High Risk 200-499Very High Risk >=500Operator ID - MOSARS-COV2/RT-PCR ([facility])2021-08-14 09:57:59 Test Item Value Reference Range Interpretation Comments SARS-COV2/RT-PCR (test Negative Not Detected, Negative, code = 5649753) See external report for linked test SARS-COV-2 PERFORMING LAB [facility] (test code = 1101790) Negative result for this test determines that SARS-CoV-2 RNA was not present in the specimen above the Limit of Detection (LOD). However, Negative results do not preclude SARS-CoV-2 infection and should not be used as the sole basis for treatment or patient management decisions. Negative results must be combined with clinical observations, patient history, and [...] a nasopharyngeal swab specimen collected from individuals suspected of COVID-19 by their healthcare provider.This test [...] justifying the authorization of the emergency use ofin vitro diagnostic tests for detection and/or diagnosis of COVID-19 is terminated under Section 564(b)(2) of the Act or the EUA is revoked under Section 564(g) of the Act.Fact Sheet for Healthcare Prov iders:https://www.CHORD/sites/default/files/product/documents/Fact_Sheet_HC _Gmaflmsze_Xlja_YIHX-GmP-9.pdfFact Sheet for Healthcare Patients:https://www.CHORD/sites/default/files/product/docume nts/Uqgy_Hgthj_Yzkxiqpe_Skky_ASYR-AfV-4.pdfPerforming Laboratory:[address], [place] [address]NIWC-RPMZKFP METER 2021-08-14 06:10:11 Test Item Value Reference Range Interpretation Comments POC-GLUCOSE METER 119 mg/dL 70-110 H : Notified RN/MD: (SCOOTER) (test code = TESTED AT [place] [address] 1538) [facility], [address]: Varnish Mixer/Techni benjamin ID = [id number] for SYLVIA BARDALES POCT-GLUCOSE [id number] 00:23:47 Test Item Value Reference Range Interpretation Comments POC-GLUCOSE METER 178 mg/dL 70-110 H : Notified RN/MD: (SCOOTER) (test code = TESTED AT [place] [address] 1538) [facility], [address]: Varnish Mixer/Techni benjamin ID = [id number] for SYLVIA BARDALES COMPREHENSIVE METABOLIC [id number] 19:13:46 Test Item Value Reference Range Interpretation Comments TOTAL PROTEIN 6.0 gm/dL 6.0-8.3 ([facility] (test code = 770) ALBUMIN (BEAKER) 3.6 [...] S NOT APPLICABLE FOR DIALYSIS PATIEN TS. Varnish Mixer ID - BSPROTHROMBIN [id number] 19:02:27 Test Item Value Reference Range Interpretation Comments PROTIME (BEAKER) 12.3 seconds 11.9-14.2 (test code = 759) INR (BEAKER) (test 0.93 See_Comment [Automat ed message] code = 370) The system DesignMyNight generated this result transmitted ref erence range: <=5.90. The reference range was not used to int erpret this result as normal/abnormal . RECOMMENDED COUMADIN/WARFARIN INR THERAPY RANGESSTANDARD DOSE: 2.0 - 3.0 Includes: PROPHYLAXIS for venous thrombosis, systemic embolization; TREATMENT for venous thrombosis and/or pulmonary embolus.HIGH RISK: Target INR is 2.5-3.5 for patients with mechanical heart valves.CBC W/PLT COUNT & AUTO [id number] 18:51:23 Test Item Value Reference Range Interpretation [...] = 2801) RAD, CHEST, 1 VIEW, NON [id number] 18:27:00Reason for exam:->post picc line insertionShould this be performed at the bedside?->Yes [facility] 1955 Sex: FFINAL REPORT TECHNIQUE: Frontal view of the chest. INDICATION: post picc line insertion. COMPARISON: 05/17/2021. FINDINGS: LINES/TUBES: Right PICC line tip projected over the distal SVC. HEART AND MEDIASTINUM: Cardiomediastinal contour is within normal limits. LUNGS: The lungs are wellinflated and clear. No consolidation or pulmonary edema. PLEURA: No pneumothorax. No significant pleu ral effusion. SOFT TISSUES AND BONES: Unremarkable. IMPRESSION:No acute cardiopulmonary process. Right PICC line tip projected over the distal SVC. Signed: Thelma Quiros [facility] Verified Date/Time: 08/13/2021 18:27:07 BASI METABOLIC [id number] 05:35:09 Test Item Value Reference Range Interpretation [...] S NOT APPLICABLE FOR DIALYSIS PATIEN TS. Varnish Mixer ID - PIAYA LLACTIC ACID, [id number] 05:11:20 Test Item Value Reference Range Interpretation Comments LACTATE BLOOD VENOUS (2) (BEAKER) 2.49 mmol/L 0.50-2.20 H (test code = 2872) Varnish Mixer ID - DBCBC W/PLT COUNT & AUTO [id number] 05:00:57 Test Item Value Reference Range Interpretation [...] 0-1 PERCENT (BEAKER) (test code = 2801) [id number] 06:40:18 Test Item Value Reference Range Interpretation Comments PHOSPHORUS (BEAKER) 3.3 mg/dL 2.3-4.7 Specimen slightly (test code = 604) hemolyzed Varnish Mixer ID - DBBASIC METABOLIC [id number] 06:40:18 Test Item Value Reference Range Interpretation [...] S NOT APPLICABLE FOR DIALYSIS PATIEN TS. Varnish Mixer ID - [id number] 06:40:17 Test Item Value Reference Range Interpretation Comments MAGNESIUM (BEAKER) 1.9 mg/dL 1.6-2.6 Specimen slightly (test code = 627) hemolyzed Varnish Mixer ID - DBCBC (HEMOGRAM ONLY)2021-05-18 05:39:35 Test [...] 0-0 (BEAKER) (test code = 413) SARS-COV2/RT-PCR ([facility])2021-05-17 14:30:52 Test Item Value Reference Range Interpretation Comments SARS-COV2/RT-PCR (test Negative Not Detected, Negative, code = 4383849) See external report for linked test SARS-COV-2 PERFORMING LAB [facility] (test code = 5168057) Negative result for this test determines that SARS-CoV-2 RNA was not present in the specimen above the Limit of Detection (LOD). However, Negative results do not preclude SARS-CoV-2 infection and should not be used as the sole basis for treatment or patient management decisions. Negative results must be combined with clinical observations, patient history, and [...] a nasopharyngeal swab specimen collected from individuals suspected of COVID-19 by their healthcare provider.This test [...] justifying the authorization of the emergency use ofin vitro diagnostic tests for detection and/or diagnosis of COVID-19 is terminated under Section 564(b)(2) of the Act or the EUA is revoked under Section 564(g) of the Act.Fact Sheet for Healthcare Prov iders:https://www.CHORD/sites/default/files/product/documents/Fact_Sheet_HC _Ehusimjok_Tkqg_KMBQ-NmB-3.pdfFact Sheet for Healthcare Patients:https://www.CHORD/sites/default/files/product/docume nts/Teab_Lupcz_Ymodbwxi_Jhnn_VTUR-PkF-5.pdfPerforming Laboratory:[facility], [place] [address]VQM, CHEST, 1 VIEW, NON [id number] 11:04:00Reason for exam:->new admission with possible entero- enteric fistulaShould this be performed at the bedside?->Yes [facility] 1955 Sex: FFINAL REPORT 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 FINDINGS: Lines, tubes, and devices: None.Lungs andpleura: Clear lungs. No effusion.Heart and mediastinum: Normal heart size. Unremarkable mediastinal contours.Osseous structures: No acute abnormality. Mild spondylosis and facet arthropathy are presentwithin the spine. Other: None. IMPRESSION: No acute intrathoracic abnormality. Signed: Abigail Becerril Verified Date/Time: 05/17/2021 11:04:57 Reading Location: [facility] Radiology Reading Room RAD, ABDOMEN/KUB, 1 VIEW [id number] 10:21:00Reason for exam:->concern for small bowel obstructionShould this be performed at the bedside?->Yes [facility] : 1955 Sex: FFINAL REPORT RAD, ABDOMEN/KUB, 1 VIEW AP CLINICAL INDICATION: concern for small bowel obstruction COMPARISON: 02/03/2021 TECHNIQUE: Frontal radiograph(s) of the abdomen. FINDINGS: The bowelgas pattern consists of dilated small bowel loops and air- filled large bowel loops. Evaluation for free air is limited by portable supine technique. Within these limitations, no free air is identified. Contrast is seen within the urinary bladder. IMPRESSION: Dilated small bowel loops with air-filled large bowel loops, which may represent ileus or partial small bowel obstruction. Signed: John Becerril MDReport Verified Date/Time: 05/17/2021 10:21:20 Reading Location: [facility] Radiology Reading Room [id number] 09:42:25 Test Item Value Reference Range Interpretation Comments PHOSPHORUS (BEAKER) (test code = 2.6 mg/dL 2.3-4.7 604) Varnish Mixer ID - DBBASIC METABOLIC [id number] 09:42:24 Test Item Value Reference Range Interpretation [...] S NOT APPLICABLE FOR DIALYSIS PATIEN TS. Varnish Mixer ID - [id number] 09:42:24 Test Item Value Reference Range Interpretation Comments MAGNESIUM (BEAKER) (test code = 1.9 mg/dL 1.6-2.6 627) Varnish Mixer ID - DBPROTHROMBIN [id number] 09:28:59 Test Item Value Reference Range Interpretation Comments PROTIME (BEAKER) 12.9 seconds 11.9-14.2 (test code = 759) INR (BEAKER) (test 0.99 See_Comment [Automat ed message] code = 370) The system DesignMyNight generated this result transmitted ref erence range: <=5.90. The reference range was not used to int erpret this result as normal/abnormal . RECOMMENDED COUMADIN/WARFARIN INR THERAPY RANGESSTANDARD DOSE: 2.0 - 3.0 Includes: PROPHYLAXIS for venous thrombosis, systemic embolization; TREATMENT for venous thrombosis [...] (BEAKER) (test code = 413) HEPATITIS B [id number] 20:49:20 Test Item Value Reference Range Interpretation Comments HEPATITIS B CORE TOTAL ANTIBODY Nonreactive Nonreactive (BEAKER) (test code = 497) HEPATITIS B SURFACE ANTIBODY < mIU/mL <8.0 (BEAKER) (test code = 647) HEPATITIS B SURFACE ANTIGEN (2) Nonreactive Nonreactive (BEAKER) (test code = 2585) Varnish Mixer ID - BSOperator ID - BSVITAMIN D, [id number] 18:58:29 Test Item Value Reference Range Interpretation Comments VITAMIN D 25-OH (BEAKER) (test 48.0 ng/mL 6.6-49.9 code = 2764) Effective 11/26/2016: Reference Range ChangeNew: 6.6-49.9 ng/mL Previous: 13.0- 47.8 ng/mLRecommendedVitamin D Target Range: 30.0-40.0 ng/mLOperator ID - BSC. DIFFICILE GDH [id number] 13:19:34 Test Item Value Reference Range Interpretation Comments CDT TOXIN (test code Negative Negative = [id number]) CDT GDH ANTIGEN (test Negative Negative No ind ication of code = 9086403630) Clostridi um difficile infection and n o colonization. Discontinue ent christopher isolation and t herapy. Testing performed by [employer] Rapid [employer]ette Assay. For GDH, published sensitivity of the assay is 98.7% compared to cytotoxicity testing. For Toxin AB, published sensitivity is 87.8% and specificity 99.4% compared to cytotoxicity testing.Verification of kit performance was done by the [facility] prior to clinical use.BASIC METABOLIC [id number] 05:52:32 Test Item Value Reference Range Interpretation [...] S NOT APPLICABLE FOR DIALYSIS PATIEN TS. Varnish Mixer ID - PIAYA LCBC (HEMOGRAM ONLY)2021-02-06 05:38:48 [...] (BEAKER) (test code = 413) BASIC METABOLIC [id number] 05:38:29 Test Item Value Reference Range Interpretation [...] S NOT APPLICABLE FOR DIALYSIS PATIEN TS. Varnish Mixer ID - DEANNA MC-REACTIVE [id number] 05:38:29 Test Item Value Reference Range Interpretation Comments C-REACTIVE PROTEIN (BEAKER) (test 3.86 mg/dL 0.00-0.50 H code = 676) Varnish Mixer ID - DEANNA MCBC (HEMOGRAM ONLY)2021-02-05 05:28:27 [...] 0-0 (BEAKER) (test code = 413) CT, [id number] 16:56:00Unlisted Reason for Exam - Click Yes and Enter Reason Below->NoIs this for enterography?->NoWill this procedure require oral contrast?->No [facility] 1955 Sex: FFINAL REPORT TECHNIQUE: CT of the abdomen and pelvis WITH intravenous contrast and WITHOUT oral contrast. Dose modulation, iterative reconstruction, and/or weight-based adjustment of the mA/kV was utilized to reduce the radiation dose to as low as reasonably achievable. INDICATION: Abdominal infection suspected. COMPARISON: None. FINDINGS: LOWER THORAX: Mild bibasilar atelectasis. Calcification of the aortic valve. HEPATOBILIARY: No focal hepatic lesions. There is mild, nonspecific thickening of the gallbladder wall. No biliary ductal dilatation.SPLEEN: No splenomegaly. The spleen measures 11.9 cm in length.PANCREAS: No focal masses or ductal dilatation. ADRENALS: A right adrenal nodule measures 1.5 cm and less than 10 Hounsfield units, consistent with an adenoma. KIDNEYS/URETERS: No hydronephrosis or stones. A right upper pole simple renal cyst measures 2.2 cm. A left interpolar fatdensity renal mass measures 2 cm. PELVIC ORGANS/BLADDER: Unremarkable. PERITONEUM/RETROPERITONEUM: No free air or fluid. Small, fat filled umbilical hernia. LYMPH NODES: No lymphadenopathy.VESSELS: Unremarkable. GI TRACT: Moderate diverticulosis of the sigmoid colon. A NG tube has its tip in the firstportion the duodenum. There is thickening with engorged vasculature along the terminal ileum which measures at least 10 cm in length. There is also abnormal thickening and fat stranding adjacent to a portion of distal jejunum which measures at least 18 cm in length. 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 The reference range was not used to interpr et this result as normal/abnormal . Varnish Mixer ID - LIDA [id number] 07:14:10 Test Item Value Reference Range Interpretation Comments FERRITIN (BEAKER) (test code = 110.79 ng/mL 5.00-275.00 361) Varnish Mixer ID - LIDA FIRON, TIBC, % SAT. (WITHOUT FERRITIN)2021-02-04 06:55:40 Test Item Value Reference Range Interpretation Comments IRON (BEAKER) (test code = 547) 75.0 ug/dL 40.0-160.0 TOTAL IRON BINDING CAPACITY 258 ug/dL 250-450 (BEAKER) (test code = 769) IRON % SATURATION (2) (BEAKER) 29 % 20-55 (test code = 2590) Varnish Mixer ID - LIDA FHEPATIC FUNCTION [id number] 16:57:11 Test Item Value Reference Range Interpretation [...] Specimen slightly (test code = 347) hemolyzed Varnish Mixer ID - KARMEN LHEMOGLOBIN [id number] 12:28:44 Test Item Value Reference Range Interpretation Comments HEMOGLOBIN A1C (BEAKER) (test code = 5.3 % 4.3-6.1 368) [id number] 09:47:42 Test Item Value Reference Range Interpretation Comments PHOSPHORUS (BEAKER) 3.5 mg/dL 2.3-4.7 Specimen slightly (test code = 604) hemolyzed Varnish Mixer ID - PINANCIE LBASIC METABOLIC [id number] 09:47:42 Test Item Value Reference Range Interpretation [...] S NOT APPLICABLE FOR DIALYSIS PATIEN TS. Varnish Mixer ID - KARMEN [id number] 09:47:41 Test Item Value Reference Range Interpretation Comments MAGNESIUM (BEAKER) 2.2 mg/dL 1.6-2.6 Specimen slightly (test code = 627) hemolyzed Varnish Mixer ID - KARMEN LC-REACTIVE [id number] 09:45:23 Test Item Value Reference Range Interpretation Comments C-REACTIVE PROTEIN (BEAKER) (test 3.67 mg/dL 0.00-0.50 H code = 676) Varnish Mixer ID - KARMEN LCBC W/PLT COUNT & AUTO [id number] 09:23:38 Test Item Value Reference Range Interpretation [...] code = 2801) RAD, ABDOMEN/KUB, 1 VIEW [id number] 07:28:00Reason for exam:->NGT tube placementShould this be performed at the bedside?->Yes [facility] : 1955 Sex: FFINAL REPORT RAD, ABDOMEN/KUB, 1 VIEW AP INDICATION: NGT tube placement COMPARISON: NoneTECHNIQUE: Limited portable radiograph of the lower chest and upper abdomen was acquired for purposes of evaluating tube placement FINDINGS/IMPRESSION:NG side-port overlies the stomach Signed: Rory Quiroga MDRborisort Verified Date/Time: 02/03/2021 07:28:00
[2021-09-17] MEDS ORDERED: NA CHLORIDE 0.9% 1,000 ML ONE ×2 (14:45→16:27)
[2021-09-17] MEDS ORDERED: NA CHLORIDE 0.9% 500 ML ONE (14:45)
[2021-09-17] MEDS ORDERED: ONDANSETRON 4 MG/2 ML VIAL ONE (14:45)
[2021-09-17] MEDS ORDERED: FAMOTIDINE 20 MG/2 ML VIAL IV ONE (14:45)
[2021-09-17] MEDS ORDERED: MORPHINE 4 MG/ML SYR ONE ×2 (14:46→16:51)
[2021-09-17 14:57] LABS: Urine Blood Negative (Negative); Urine Glucose Negative (Negative); Urine Protein Trace (Negative); Urine Specific Gravity 1.025 (1.005-1.030)
--- NOTE | 2021-09-17 14:59 | RAD REPORT ---
EXAM DESCRIPTION: RAD - Chest Single View - 09/17/2021 2:44 pm CLINICAL HISTORY: Cough Chest pain. COMPARISON: Chest Single View dated 09/16/2021; Abdomen 1 View (KUB) dated 08/31/2021; Chest Single Vie w dated 08/30/2021; Abdomen 1 View (KUB) dated 08/30/2021 FINDINGS: Portable technique limits examination quality. Asymmetric pulmonary opacities are present greatest in the left lung base, likely infiltrate/ pneumon ia. The heart is normal in size. Right-sided PICC line has tip in the SVC. IMPRESSION: Left lung base developing pneumonia
[2021-09-17 15:16] LABS: Absolute Lymphocytes (CBC) 1.5 K/uL (0.7-4.9); Hematocrit 34.8 % (36.0-45.0); MCV 85.2 fL (80-100); MPV 7.9 fL (7.6-11.3); Protime INR 1.01; RBC Red Blood Cell Count 4.08 M/uL (3.86-4.86)
[2021-09-17 15:24] LABS: Albumin 2.8 g/dL (3.4-5.0); Bilirubin Direct 0.1 mg/dL (0-0.2); Bilirubin Total 0.4 mg/dL (0.2-1.0); Potassium 3.7 mmol/L (3.5-5.1); Protein, Total 6.6 g/dL (6.4-8.2); SARS-CoV-2 Antigen Rapid Res Positive (Negative); Troponin High Sensitivity 5.4 pg/mL (<58.9)
--- NOTE | 2021-09-17 15:47 | RAD REPORT ---
EXAM DESCRIPTION: CT - Chest Abd Pelvis Wo Con - 09/17/2021 3:22 pm CLINICAL HISTORY: Chest and abdomen pain. CP/ABD PAIN COMPARISON: Chest For Pe Angio dated 09/12/2021 TECHNIQUE: A limited noncontrast study is performed. All CT scans are performed using dose optimization technique as appropriate and may include automated exposure control or mA/KV adjustment according to patient size. FINDINGS: Patchy areas of bilateral ground-glass opacity seen greatest in the left lower lobe, likel y infectious in etiology.This appears moderately worse relative to 09/12/2021.No pleural or pericardi al effusion.No intrathoracic adenopathy. The liver, spleen, pancreas, adrenal glands and kidneys are within normal limits. Benign cyst is pres ent anterior right kidney. Small fat containing umbilical hernia. No bowel obstruction, free air, free fluid or abscess. Nonvisualized appendix. Mild inflammation is s een surrounding the terminal in the right lower quadrant. Sigmoid diverticulosis coli without diverti culitis. No pathologic lymphadenopathy in the abdomen or pelvis. No worrisome osseous finding. IMPRESSION: Mild worsening in bilateral ground-glass lung opacities, greatest in the left lung base, suspicious for a viral infection. Mild inflammation surrounding the terminal ileum is likely related to inflammatory bowel disease.
[2021-09-17] MEDS ORDERED: AZITHROMYCIN 500 MG INJ IVPB ONE (16:27)
[2021-09-17] MEDS ORDERED: CEFTRIAXONE 1000 MG/VIAL ONE (16:27)
[2021-09-17] MEDS ORDERED: NA CHLORIDE 0.9% 250 ML ONE (16:27)
[2021-09-17] MEDS ORDERED: METHYLPREDNISOLONE 125 MG INJ ONE (17:21)
[2021-09-17] MEDS ORDERED: ASPIRIN 81 MG CHEWABLE TABLET ONE (17:21)
[2021-09-17] MEDS ORDERED: IPRATROPIUM BROM 0.5MG/2.5ML ONE (17:22)
[2021-09-17] MEDS ORDERED: ALBUTEROL 2.5 MG/3 ML NEB SOL ONE (17:22)
--- NOTE | 2021-09-17 19:54 | P.HP ---
Certification for Inpatient Patient admitted to: Inpatient With expected LOS: >2 Midnights Patient will require the following post-hospital care: None Practitioner: I am a practitioner with admitting privileges, knowledge of patient current condition, hospital course, and medical plan of care. Services: Services provided to patient in accordance with Admission requirements found in Title 42 Section 412.3 of the Code of Federal Regulations <Ray Barroso - Last Filed: 09/17/21 19:42> Patient History Date of Service: 09/17/21 Reason for admission: COVID-19 pneumonia History of Present Illness: 66-year-old female with history of Crohn's, recurrent bowel obstructions, hypertension, hypothyroidism presented to the emergency department with complaints of abdominal pain, nausea, shortness of breath. She has been COVID- positive for about 3 weeks now and she was recently discharged in the hospital yesterday at that time she had been feeling much better but began feeling worse after getting back home. She was again evaluated in the emergency department her white blood cell count was 6.4 hemoglobin 10.2 hematocrit 34.8 still testing COVID-positive CRP levels pending she had a CT scan of her chest abdomen and pelvis in the emergency department which showed mild worsening of bilateral groundglass opacities greater in the left lung base suspicious for viral infection as well as mild inflammation surrounding the terminal ileum likely related to inflammatory bowel disease. She was monitored on pulse and pulse ox imetry throughout her stay in the emergency department her sats stayed in the low 90s most the time but occasionally dipped into the 80s, patient feeling quite unwell at this time. ED provider wishes to admit for further managment of COVID pneumonia. - Past Medical/Surgical History Diabetic: No -: HTN -: Prediabetes -: Hypothyroidism -: Depression -: Recurrent SBO -: GERD -: Crohn's disease -: Colitis -: Psychosocial/ Personal History: Patient is . - Family History Father -: Cancer Notes: lung Cx Mother -: Heart disease - Social History Alcohol use: No CD- Drugs: No Caffeine use: Yes Place of Residence: Home <Ray Barroso - Last Filed: 09/17/21 19:42> Date of Service: 09/18/21 <Eric Brown - Last Filed: 09/18/21 20:09> Allergies ciprofloxacin Allergy (Verified 08/30/21 22:33) Itching/Hives/Rash latex [Latex] Allergy (Verified 08/30/21 22:33) Itching/Hives/Rash Latex, Natural Rubber Allergy (Verified 08/30/21 22:33) Unknown metronidazole Allergy (Verified 08/30/21 22:33) Itching/Hives/Rash Home Medications: RX: Levothyroxine Sodium 25 mcg PO [id number] 07/27/20 RX: Sertraline [Zoloft*] 200 mg PO BEDTIME 07/27/20 RX: buPROPion HCL [Bupropion HCl] 150 mg PO DAILY 12/10/20 RX: Ondansetron [Zofran (Odt)*] 4 mg PO Q6H PRN #10 tab 03/08/21 RX: Atorvastatin Calcium 10 mg PO DAILY 04/05/21 RX: Metoprolol Succinate [Toprol Xl*] 50 mg PO BID 04/05/21 RX: Acetaminophen 160 mg PO Q4H PRN 06/05/21 RX: Cetirizine HCl [Zyrtec] 1 tab PO DAILY 06/05/21 RX: Hyoscyamine Sulfate [Levsin TAB*] 0.125 tab PO Q4HP PRN 06/05/21 RX: Pantoprazole Sodium [Protonix] 1 tab PO DAILY 06/05/21 RX: Bupropion HCl [Wellbutrin] 1 tab PO BEDTIME 08/04/21 RX: Gatifloxacin 1 drop EACH EYE QID 08/04/21 RX: Amlodipine [Norvasc*] 5 mg PO DAILY 30 Days #30 tab 08/07/21 RX: Lisinopril [Zestril] 5 mg PO DAILY 30 Days #30 tab 08/07/21 RX: predniSONE [Prednisone*] 15 mg PO SEECOM 08/31/21 RX: Hydrocodone 7.5/APAP 325 [[place] 7.5/325 mg*] 1 tab PO Q6H PRN #30 tab 09/01/21 Review of Systems 10-point ROS is otherwise unremarkable General: Fever, Chills, Weakness, Malaise Respiratory: Shortness of Breath Gastrointestinal: Nausea, Vomiting, Abdominal Pain <Ray Barroso Casey - Last Filed: 09/17/21 19:42> Physical Examination - Physical Exam General: Alert, In no apparent distress, Oriented x3, Obese HEENT: Atraumatic, PERRLA, Mucous membr. moist/pink, EOMI, Sclerae nonicteric Neck: Supple, 2+ carotid pulse no bruit, No LAD, Without JVD or thyroid abnormality Respiratory: Normal air movement, Diminished, Other (Tachypnea, mild dyspnea) Cardiovascular: No edema, Regular rate/rhythm (Sinus tachycardia rate 115), Normal S1 S2 Capillary refill: <2 Seconds Gastrointestinal: Normal bowel sounds, No tenderness Musculoskeletal: No tenderness Integumentary: No rashes Neurological: Normal speech, Normal strength at 5/5 x4 extr, Normal tone, Normal affect - Studies Laboratory Data (last 24 hrs) 09/17/21 14:45: PT 11.1, INR 1.01 09/17/21 14:45: WBC 6.4, Hgb 11.2 L, Hct 34.8 L D, Plt Count 249 09/17/21 14:45: Sodium 136, Potassium 3.7, BUN 20 H, Creatinine 0.77, Glucose 106, Magnesium 2.0, Total Bilirubin 0.4, AST 28, ALT 48, Alkaline Phosphatase 142 H, Lipase 167 <Ray Barroso - Last Filed: 09/17/21 19:42> Assessment and Plan - Plan Assessment: Dyspnea, viral sepsis secondary to COVID-19 pneumonia: Abdominal pain/nausea likely secondary to Crohn's flare Hypertension Hypothyroidism Plan: Dyspnea, viral sepsis secondary to COVID-19 pneumonia: Patient with SIRS criteria for tachycardia and tachypnea with blood cell count normal lactate normal no severe sepsis or septic shock at this time likely viral in nature. CT/chest x-ray showed worsening of left lower lobe pneumonia and groundglass opacities. Patient's CHOSEN risk score is 6 given her age, tachypnea, 02 sats, and albumin level which falls under the category of unlikely suitable for discharge with increased risk for hypoxia, ICU admission and . Pulmonology to be consulted we will continue with oral steroids, daily right saturations, supplemental oxygen as necessary. Appreciate further input from pulmonology. Abdominal pain/nausea likely secondary to Crohn's flare: We will start with clear liquid diet advance as tolerated no signs of bowel obstruction currently on CT scan.. Pain medications. Continue home medications when appropriate. Hypertension: Continue home medications. Hypothyroidism:Continue home medications. DVT PPX: Lovenox Code status: Full Discharge Plan: Home Plan to discharge in: 48 Hours - Advance Directives Does patient have a Living Will: Yes Does patient have a Durable POA for Healthcare: No - Code Status/Comfort Care Code Status Assessed: Yes (Full code) Critical Care: No Time Spent Managing Pts Care (In Minutes): 70 <Ray Barroso - Last Filed: 09/17/21 19:42> Physician Review: Patient Assessed, Agree with Above Assessment and Plan <Eric Brown - Last Filed: 09/18/21 20:09>
[2021-09-17] MEDS: NA CHLORIDE 0.9% 1,000 ML IV SCH ×2 (20:12→23:13)
[2021-09-17] MEDS ORDERED: ACETAMINOPHEN 500 MG TAB PO PRN (20:12)
[2021-09-17] MEDS ORDERED: ONDANSETRON 4 MG/2 ML VIAL IV PRN (20:12)
[2021-09-17] MEDS: MORPHINE 2 MG/ML SYR IV PRN (23:58)
[2021-09-18 02:08] VITALS: BMI 46.5
[2021-09-18 03:52] LABS: Absolute Lymphocytes (CBC) 0.8 K/uL (0.7-4.9); Lymphocytes % 21.7 % (15.3-44.8); MCV 84.6 fL (80-100); MPV 7.7 fL (7.6-11.3); RBC Red Blood Cell Count 3.54 M/uL (3.86-4.86)
[2021-09-18 04:06] LABS: Albumin 2.5 g/dL (3.4-5.0); Bilirubin Total 0.1 mg/dL (0.2-1.0); Magnesium 2.2 mg/dL (1.8-2.4); Potassium 4.8 mmol/L (3.5-5.1); Protein, Total 6.1 g/dL (6.4-8.2)
[2021-09-18] MEDS: NA CHLORIDE 0.9% 1,000 ML IV SCH (06:18)
[2021-09-18 06:48] LABS: Specific Gravity 1.015 (1.005-1.030); Urine Bilirubin Negative (Negative); Urine Blood Negative (Negative); Urine Clarity Clear (Clear); Urine Color Yellow (Yellow); Urine Glucose Negative (Negative); Urine Protein Negative (Negative); Urine Urobilinogen 0.2 mg/dL (0.2-1.0); Urine pH 5.5 (5.0-7.0)
--- NOTE | 2021-09-18 07:22 | EKG ---
Test Date: 2021-09-17 Test Time: 14:52:53 Shake Out Worker: RUDY MEASUREMENT RESULTS: Intervals: Rate: 116 GA: 132 QRSD: 76 QT: 306 QTc: 425 [place]: P: 36 GA: 132 QRS: 17 T: 63 INTERPRETIVE STATEMENTS: Sinus tachycardia Nonspecific ST abnormality Abnormal ECG Compared to ECG 09/12/2021 20:21:23 ST (T wave) deviation now present Myocardial infarct finding no longer present Electronically Signed On 09-18-21 07:19:25 CDT by Curt Hanley
[2021-09-18] MEDS: MORPHINE 2 MG/ML SYR IV PRN ×3 (09:54→23:38)
[2021-09-18] MEDS: dexAMETHasone 4 MG TAB PO SCH (09:55)
[2021-09-18] MEDS: ENOXAPARIN 40 MG/0.4 ML SQ SCH (09:55)
--- NOTE | 2021-09-18 10:19 | ER ---
Nurse's Notes [facility] Name: Kindra Novoa Age: 66 yrs Sex: Female : 1955 Arrival Date: 09/17/2021 Time: 14:01 Bed 26 Private MD: Moriah Vasquez Diagnosis: Other viral pneumonia-BILATERAL COVID PNA;Crohn's disease, unspecified, without complications;Obesity, unspecified;Nausea Presentation: 09/17 14:11 Chief complaint: Patient states: epigastric pain started last night. Coronavirus 3 screen: Vaccine status: Patient reports being unvaccinated. Ebola Screen: No symptoms or risks identified at this time. Initial Sepsis Screen: Does the patient meet any 2 criteria? No. Patient's initial sepsis screen is negative. Does the patient have a suspected source of infection? No. Patient's initial sepsis screen is negative. Risk Assessment: Do you want to hurt yourself or someone else? Patient reports no desire to harm self or others. Onset of symptoms was September 16, 2021. 14:11 Method Of Arrival: Ambulatory [facility] 14:11 Acuity: KAROL 3 3 Triage Assessment: 14:15 General: Appears distressed, uncomfortable, Behavior is cooperative, appropriate for [facility] age, agitated, crying. Pain: Complains of pain in epigastric area Pain does not radiate. Pain currently is 10 out of 10 on a pain scale. Quality of pain is described as aching, stabbing, tender, throbbing, Pain began 1 day ago. Is continuous. Neuro: Level of Consciousness is awake, alert, obeys commands, Oriented to person, place, time, situation. Cardiovascular: Capillary refill < 3 seconds Patient's skin is warm and dry. Respiratory: Airway is patent Respiratory effort is even, labored. GI: Abdomen is round non-distended, Reports upper abdominal pain, epigastric pain, nausea, Pain is 10 out of 10 on a pain scale. 14:15 Pain: Complains of pain in head, back. 3 Historical: - Allergies: 14:15 Ciprofloxacin; 3 14:15 Flagyl; 3 14:15 Latex, Natural Rubber; eh3 - Home Meds: 14:15 atorvastatin 10 mg Oral tab [Active]; bupropion HCl 150 mg Oral tab 2 times per day eh3 [Active]; cetirizine 10 mg Oral cap [Active]; hyoscyamine sulfate 0.125 mg Oral tab [Active]; levothyroxine 25 mcg cap [Active]; lisinopril 5 mg Oral tab [Active]; metoprolol tartrate 50 mg Oral tab 2 times per day [Active]; [place] 5-325 mg Oral tab 1 tab every 6 hours [Active]; ondansetron HCl 4 mg Oral tab [Active]; pantoprazole 40 mg Oral TbEC once daily [Active]; sertraline 200mg Oral tab nightly [Active]; - PMHx: 14:15 bowel obstruction; Colitis; Crohn's Disease; Depression; Hypertension; Hypothyroidism; eh3 Insulin Resistance; - Immunization history:: Adult Immunizations up to date. - Social history:: Smoking status: Patient denies any tobacco usage or history of. Patient/guardian denies using alcohol. Screenin:30 Abuse screen: Denies threats or abuse. Denies injuries from another. Nutritional canseco screening: No deficits noted. Tuberculosis screening: No symptoms or risk factors identified. Fall Risk None identified. Assessment: 15:30 General: Appears in no apparent distress. Pain: Complains of pain in abdomen. GI: Bowel canseco sounds present X 4 quads. Abdomen is tender to palpation X 4 quads. 17:19 Respiratory: Airway is patent Breath sounds are coarse Breath sounds are diminished canseco bilaterally. 19:00 Reassessment: Pt noted to be desating, reported to off going nurse that she had sleep jb4 apnea. Sats noted at 83% on RA. Placed on 2L NC. 20:00 Reassessment: Patient appears in no apparent distress at this time. Patient and/or jb4 family updated on plan of care and expected duration. Pain level reassessed. Patient is alert, oriented x 3, equal unlabored respirations, skin warm/dry/pink. Pt reports feeling better after being placed on NC 2L. Sats maintaining in the 96%. 21:00 Reassessment: Patient appears in no apparent distress at this time. Patient and/or jb4 family updated on plan of care and expected duration. Pain level reassessed. Patient is alert, oriented x 3, equal unlabored respirations, skin warm/dry/pink. 22:00 Reassessment: Patient appears in no apparent distress at this time. Patient and/or jb4 family updated on plan of care and expected duration. Pain level reassessed. Patient is alert, oriented x 3, equal unlabored respirations, skin warm/dry/pink. 23:02 Reassessment: Patient appears in no apparent distress at this time. Patient and/or jb4 family updated on plan of care and expected duration. Pain level reassessed. Patient is alert, oriented x 3, equal unlabored respirations, skin warm/dry/pink. Vital Signs: 14:11 BP 131 / 76; Pulse 126; Resp 22; Temp 99.7; Pulse Ox 92% on R/A; Weight 108.86 kg; eh3 Height 5 ft. 1 in. (154.94 cm); Pain 10/10; 17:18 BP 120 / 70; Pulse 114; Resp 22; Pulse Ox 100% on Nebulizer Mask; canseco 19:00 BP 109 / 52; Pulse 88; Resp 22; Pulse Ox 83% on R/A; jb4 20:00 BP 110 / 48; Pulse 86; Resp 20; Pulse Ox 95% on 2 lpm NC; jb4 21:00 BP 112 / 74; Pulse 74; Resp 18; Pulse Ox 97% on 2 lpm NC; jb4 22:30 BP 105 / 59; Pulse 69; Resp 18; Pulse Ox 97% on 2 lpm NC; jb4 14:11 Body Mass Index 45.35 (108.86 kg, 154.94 cm) eh3 19:00 Pt sitting at 90 degrees resting in bed. 4 ED Course: 14:01 Patient arrived in ED. mr 14:02 Moriah Vasquez is Private Physician. mr 14:15 Triage completed. eh3 14:17 Arm band placed on. iw 14:18 Tana Rangel, RN is Primary Nurse. [place]seco 14:29 Esa Swain MD is Attending Physician. mingo 14:46 XRAY Chest (1 view) In Process Unspecified. EDMS 14:55 EKG done, by ED staff, reviewed by Esa Swain MD. 3 15:00 Urine Dipstick-Ancillary Sent. canseco 15:23 CT Chest Abdomen Pelvis W/O Contrast In Process Unspecified. EDMS 15:30 Patient has correct armband on for positive identification. Bed in low position. canseco 15:30 No provider procedures requiring assistance completed. Accessed PICC line. canseco 16:50 Stephanie, Eric, MD is Hospitalizing Provider. mingo 19:21 Primary Nurse role handed off by Tana Rangel RN mw2 Administered Medications: 14:57 Drug: Pepcid (famotidine) 20 mg Route: IVP; Site: PICC; canseco 15:00 Follow up: Response: No adverse reaction canseco 14:58 Drug: NS 0.9% 1000 ml Route: IV; Rate: 125 ml/hr; Site: PICC; canseco 14:58 Drug: Zofran (Ondansetron) 4 mg Route: IVP; Site: PICC; canseco 15:01 Follow up: Response: No adverse reaction canseco 14:59 Drug: NS 0.9% 500 ml Route: IV; Rate: bolus; Site: PICC; canseco 15:01 Drug: morphine 4 mg Route: IVP; Infused Over: 4 mins; Site: PICC; canseco 16:46 Drug: morphine 4 mg Route: IVP; Infused Over: 4 mins; Site: PICC; canseco 17:03 Follow up: Response: No adverse reaction canseco 17:02 Drug: NS 0.9% 1000 ml Route: IV; Rate: 1 bolus; Site: PICC; canseco 17:02 Drug: Zithromax (azithromycin) 500 mg Route: IVPB; Infused Over: 1 hrs; Site: PICC; canseco 17:03 Drug: Rocephin (cefTRIAXone) 1 grams Route: IV; Rate: per protocol; Site: PICC; canseco 17:03 Follow up: IV Status: Completed infusion canseco 17:21 Drug: SOLU-Medrol (methylPrednisoLONE) 125 mg Route: IVP; Site: PICC; canseco 17:21 Drug: Xopenex (levalbuterol) 2.5 mg Route: Inhalation; canseco 17:21 Drug: AtroVENT (ipratropium) Aerosol 0.5 mg Route: Inhalation; canseco 17:21 Drug: Aspirin Chewable Tablet 162 mg Route: PO; canseco 17:25 Follow up: Response: No adverse reaction canseco Medication: 15:30 VIS not applicable for this client. canseco Outcome: 16:56 Decision to Hospitalize by Provider. mingo 23:03 Admitted to [facility] accompanied by nurse, via stretcher, room 421, with oxygen, with jb4 chart, Report called to Marbella Diaz 23:03 Condition: stable 23:03 Discharge instructions given to patient, family, Instructed on the need for admit, Demonstrated understanding of instructions. 23:04 Patient left the ED. jb4 Signatures: Dispatcher [employer] Esa Brewer MD MD cha Rivera, Ninfa mr Dean, Adriane, RN Samuel Spaulding RN RN jb4 Jeff, Justine [facility] Shira [place] 2 YanethStageTana sanchez RN RN ha Hall, Erin [facility]
--- NOTE | 2021-09-18 10:19 | EDPHYS ---
Physician Documentation [facility] Name: Kindra Novoa Age: 66 yrs Sex: Female : 1955 Arrival Date: 09/17/2021 Time: 14:01 Bed 26 Private MD: Moriah Vasquez ED Physician Esa Swain HPI: 09/17 16:27 This 66 yrs old Female presents to ER via Ambulatory with complaints of mingo Abdominal Pain, Back Pain, Nausea. 16:27 The patient presents with pain that is acute, that is chronic, with no known mechanism mingo of injury. The symptoms are located in the low back. Onset: The symptoms/episode began/occurred 2 day(s) ago. The pain does not radiate. Historical: - Allergies: 14:15 Ciprofloxacin; eh3 14:15 Flagyl; eh3 14:15 Latex, Natural Rubber; eh3 - Home Meds: 14:15 atorvastatin 10 mg Oral tab [Active]; bupropion HCl 150 mg Oral tab 2 times per day eh3 [Active]; cetirizine 10 mg Oral cap [Active]; hyoscyamine sulfate 0.125 mg Oral tab [Active]; levothyroxine 25 mcg cap [Active]; lisinopril 5 mg Oral tab [Active]; metoprolol tartrate 50 mg Oral tab 2 times per day [Active]; [place] 5-325 mg Oral tab 1 tab every 6 hours [Active]; ondansetron HCl 4 mg Oral tab [Active]; pantoprazole 40 mg Oral TbEC once daily [Active]; sertraline 200mg Oral tab nightly [Active]; - PMHx: 14:15 bowel obstruction; Colitis; Crohn's Disease; Depression; Hypertension; Hypothyroidism; eh3 Insulin Resistance; - Immunization history:: Adult Immunizations up to date. - Social history:: Smoking status: Patient denies any tobacco usage or history of. Patient/guardian denies using alcohol. ROS: 16:29 Constitutional: Negative for fever, chills, and weight loss, Eyes: Negative for injury, mingo pain, redness, and discharge, ENT: Negative for injury, pain, and discharge, Neck: Negative for injury, pain, and swelling, Back: Negative for injury and pain, : Negative for injury, bleeding, discharge, and swelling, MS/Extremity: Negative for injury and deformity, Skin: Negative for injury, rash, and discoloration, Neuro: Negative for headache, weakness, numbness, tingling, and seizure, Psych: Negative for depression, anxiety, suicide ideation, homicidal ideation, and hallucinations, Allergy/Immunology: Negative for hives, rash, and allergies, Endocrine: Negative for neck swelling, polydipsia, polyuria, polyphagia, and marked weight changes, Hematologic/Lymphatic: Negative for swollen nodes, abnormal bleeding, and unusual bruising. 16:29 Cardiovascular: Positive for chest pain. 16:29 Respiratory: Positive for cough, shortness of breath, at rest. 16:29 Abdomen/GI: Positive for abdominal pain. Exam: 16:29 Constitutional: This is a well developed, well nourished patient who is awake, alert, mingo and in no acute distress. Head/Face: Normocephalic, atraumatic. Eyes: Pupils equal round and reactive to light, extra-ocular motions intact. Lids and lashes normal. Conjunctiva and sclera are non-icteric and not injected. Cornea within normal limits. Periorbital areas with no swelling, redness, or edema. ENT: Nares patent. No nasal discharge, no septal abnormalities noted. Tympanic membranes are normal and external auditory canals are clear. Oropharynx with no redness, swelling, or masses, exudates, or evidence of obstruction, uvula midline. Mucous membranes moist. Neck: Trachea midline, no thyromegaly or masses palpated, and no cervical lymphadenopathy. Supple, full range of motion without nuchal rigidity, or vertebral point tenderness. No Meningismus. Chest/axilla: Normal chest wall appearance and motion. Nontender with no deformity. No lesions are appreciated. Respiratory: Lungs have equal breath sounds bilaterally, clear to auscultation and percussion. No rales, rhonchi or wheezes noted. No increased work of breathing, no retractions or nasal flaring. Abdomen/GI: Soft, non-tender, with normal bowel sounds. No distension or tympany. No guarding or rebound. No evidence of tenderness throughout. Back: No spinal tenderness. No costovertebral tenderness. Full range of motion. Female : Normal external genitalia. Skin: Warm, dry with normal turgor. Normal color with no rashes, no lesions, and no evidence of cellulitis. MS/ Extremity: Pulses equal, no cyanosis. Neurovascular intact. Full, normal range of motion. Neuro: Awake and alert, GCS 15, oriented to person, place, time, and situation. Cranial nerves II-XII grossly intact. Motor strength 5/5 in all extremities. Sensory grossly intact. Cerebellar exam normal. Normal gait. Psych: Awake, alert, with orientation to person, place and time. Behavior, mood, and affect are within normal limits. 16:29 Cardiovascular: Rate: tachycardic, Rhythm: regular, Pulses: Pulses are 4+ in bilateral radial, brachial, femoral, popliteal, posterior tibial and and dorsalis pedis arteries.. Heart sounds: normal, normal S1and S2, no S3 or S4, no murmur, no rub, no gallop, murmur, not appreciated, Edema: is not appreciated, JVD: is not appreciated. 16:29 ECG was reviewed by the Attending Physician. 16:29 Neuro: Orientation: is normal, appropriate for stated age, no acute changes, Mentation: is normal, appropriate for stated age, no acute changes, Memory: is normal, appropriate for stated age, no acute changes, Cranial nerves: grossly normal, is grossly normal based on the patient's age, no acute changes, Cerebellar function: is grossly normal, is grossly normal based on the patient's age, no acute changes, Motor: is normal, is grossly normal based on the patient's age, Sensation: Gait: not applicable Babinski testing is normal. Vital Signs: 14:11 BP 131 / 76; Pulse 126; Resp 22; Temp 99.7; Pulse Ox 92% on R/A; Weight 108.86 kg; eh3 Height 5 ft. 1 in. (154.94 cm); Pain 10/10; 17:18 BP 120 / 70; Pulse 114; Resp 22; Pulse Ox 100% on Nebulizer Mask; canseco 19:00 BP 109 / 52; Pulse 88; Resp 22; Pulse Ox 83% on R/A; jb4 20:00 BP 110 / 48; Pulse 86; Resp 20; Pulse Ox 95% on 2 lpm NC; jb4 21:00 BP 112 / 74; Pulse 74; Resp 18; Pulse Ox 97% on 2 lpm NC; jb4 22:30 BP 105 / 59; Pulse 69; Resp 18; Pulse Ox 97% on 2 lpm NC; jb4 14:11 Body Mass Index 45.35 (108.86 kg, 154.94 cm) eh3 19:00 Pt sitting at 90 degrees resting in bed. jb4 MDM: 14:29 Patient medically screened. mingo 16:45 Antibiotic administration: Rocephin and Zithromax given. Differential diagnosis: mingo Bronchitis Obesity Osteoarthritis Peptic Ulcer pneumonia, pulmonary edema, Pulmonary Embolism reactive airway disease, bowel obstruction. The patient's Wells Deep Vein Thrombosis Score was calculated as follows: Heart Rate >100 BPM (1.5 Pts) Total Score: 0-2 Pts- Low Risk. Differential Diagnosis: Bronchitis Influenza Upper Respiratory Infection Sinusitis Asthma Exacerbation Viral Syndrome Pneumonia. The patient's pulmonary embolism risk score was calculated as follows: the patients heart rate is greater than 100 beats per minute (1.5 Pts) Total Score: 0-2 points. This patient was found to be at low risk for a pulmonary embolism by using the Well's assessment criteria. Immunization status: Pneumococcal vaccine: Influenza vaccine: Data reviewed: vital signs, nurses notes, lab test result(s), EKG, radiologic studies, CT scan, plain films. Data interpreted: hall monitor: rate is 126 beats/min, rhythm is regular, Pulse oximetry: on room air is 92 %. Test interpretation: by ED physician or midlevel provider: ECG, plain radiologic studies. 09/17 14:33 Order name: Basic Metabolic Panel; Complete Time: 16:13 [facility] 09/17 14:33 Order name: CBC with Diff; Complete Time: 16:13 [facility] 09/17 14:33 Order name: LFT's; Complete Time: 16:13 [facility] 09/17 14:33 Order name: Magnesium; Complete Time: 16:13 [facility] 09/17 14:33 Order name: NT PRO-BNP; Complete Time: 16:13 [facility] 09/17 14:33 Order name: PT-INR; Complete Time: 16:13 [facility] 09/17 14:33 Order name: Troponin HS; Complete Time: 16:13 [facility] 09/17 14:33 Order name: Lipase; Complete Time: 16:13 [facility] 09/17 14:33 Order name: SARS RAPID; Complete Time: 16:13 [facility] 09/17 14:58 Order name: Urine Dipstick-Ancillary; Complete Time: 16:13 [facility] 09/17 14:59 Order name: Urine Dipstick-Ancillary [facility] 09/17 16:14 Order name: Blood Culture Adult (2) [facility] 09/17 16:14 Order name: Lactate; Complete Time: 18:00 [facility] 09/17 16:14 Order name: Procalcitonin; Complete Time: 18:00 [facility] 09/17 14:33 Order name: XRAY Chest (1 view); Complete Time: 16:13 [facility] 09/17 14:33 Order name: EKG; Complete Time: 14:34 [facility] 09/17 14:33 Order name: CT Chest Abdomen Pelvis W/O Contrast; Complete Time: 16:13 [facility] 09/17 14:33 Order name: Cardiac monitoring; Complete Time: 14:55 [facility] 09/17 14:33 Order name: EKG - Nurse/Tech; Complete Time: 14:55 [facility] 09/17 14:33 Order name: IV Saline Lock; Complete Time: 15:01 [facility] 09/17 14:33 Order name: Labs collected and sent; Complete Time: 15:01 [facility] 09/17 14:33 Order name: O2 Per Protocol; Complete Time: 15:01 [facility] 09/17 14:33 Order name: O2 Sat Monitoring; Complete Time: 15:01 [facility] 09/17 14:33 Order name: Urine Dipstick-Ancillary (obtain specimen); Complete Time: 15:00 [facility] 09/17 14:33 Order name: IV Saline Lock - Large Bore; Complete Time: 15:00 [facility] EC:29 Rate is 116 beats/min. Rhythm is regular. QRS [place] is Normal. ND interval is normal. [facility] QRS interval is normal. QT interval is normal. No Q waves. T waves are Normal. No ST changes noted. Clinical impression: Sinus tachycardia and No evidence of ischemia. Interpreted by me. Reviewed by me. Administered Medications: 14:57 Drug: Pepcid (famotidine) 20 mg Route: IVP; Site: PICC; canseco 15:00 Follow up: Response: No adverse reaction [facility]o 14:58 Drug: NS 0.9% 1000 ml Route: IV; Rate: 125 ml/hr; Site: PICC; canseco 14:58 Drug: Zofran (Ondansetron) 4 mg Route: IVP; Site: PICC; canseco 15:01 Follow up: Response: No adverse reaction canseco 14:59 Drug: NS 0.9% 500 ml Route: IV; Rate: bolus; Site: PICC; canseco 15:01 Drug: morphine 4 mg Route: IVP; Infused Over: 4 mins; Site: PICC; canseco 16:46 Drug: morphine 4 mg Route: IVP; Infused Over: 4 mins; Site: PICC; canseco 17:03 Follow up: Response: No adverse reaction canseco 17:02 Drug: NS 0.9% 1000 ml Route: IV; Rate: 1 bolus; Site: PICC; canseco 17:02 Drug: Zithromax (azithromycin) 500 mg Route: IVPB; Infused Over: 1 hrs; Site: PICC; canseco 17:03 Drug: Rocephin (cefTRIAXone) 1 grams Route: IV; Rate: per protocol; Site: PICC; canseco 17:03 Follow up: IV Status: Completed infusion canseco 17:21 Drug: SOLU-Medrol (methylPrednisoLONE) 125 mg Route: IVP; Site: PICC; canseco 17:21 Drug: Xopenex (levalbuterol) 2.5 mg Route: Inhalation; canseco 17:21 Drug: AtroVENT (ipratropium) Aerosol 0.5 mg Route: Inhalation; canseco 17:21 Drug: Aspirin Chewable Tablet 162 mg Route: PO; canseco 17:25 Follow up: Response: No adverse reaction can[facility]o Disposition Summary: 09/17/21 16:56 Hospitalization Ordered Hospitalization Status: Inpatient Admission mingo Provider: Eric Brown cha [facility] mingo Condition: Fair mingo Problem: an acute exacerbation mingo Symptoms: have worsened mingo Bed/Room Type: Standard [facility] Room Assignment: 421(09/17/21 21:00) mw Diagnosis - Other viral pneumonia - BILATERAL COVID PNA mingo - Crohn's disease, unspecified, without complications mingo - Obesity, unspecified mingo - Nausea mingo Forms: - Medication Reconciliation Form mingo - SBAR form mingo Signatures: Dispatcher [employer] Mariposa Mckeon RN RN mw Anderson, Corey, MD MD cha Attema, Lee, FNP-C BERNICE-[id number] Tana Rangel RN RN ha Hall, Erin 3 Corrections: (The following items were deleted from the chart) 21:00 16:56 mingo mw
[2021-09-18] MEDS: BENZONATATE 100 MG CAP PO PRN ×2 (12:24→20:39)
--- NOTE | 2021-09-18 15:40 | P.CNS ---
Date of Consult: 09/18/21 Chief Complaint: COVID-19 pneumonia History of Present Illness: Age 66 aw abdominal pain, and SOb.Pos for COVID, Readmitted. AW COvid pneumonia/ C/o cough and congestion Allergies ciprofloxacin Allergy (Verified 08/30/21 22:33) Itching/Hives/Rash latex [Latex] Allergy (Verified 08/30/21 22:33) Itching/Hives/Rash Latex, Natural Rubber Allergy (Verified 08/30/21 22:33) Unknown metronidazole Allergy (Verified 08/30/21 22:33) Itching/Hives/Rash Home Medications: Levothyroxine Sodium 25 mcg PO [id number] 07/27/20 Sertraline [Zoloft*] 200 mg PO BEDTIME 07/27/20 buPROPion HCL [Bupropion HCl] 150 mg PO DAILY 12/10/20 Ondansetron [Zofran (Odt)*] 4 mg PO Q6H PRN #10 tab 03/08/21 Atorvastatin Calcium 10 mg PO DAILY 04/05/21 Metoprolol Succinate [Toprol Xl*] 50 mg PO BID 04/05/21 Acetaminophen 160 mg PO Q4H PRN 06/05/21 Cetirizine HCl [Zyrtec] 1 tab PO DAILY 06/05/21 Hyoscyamine Sulfate [Levsin TAB*] 0.125 tab PO Q4HP PRN 06/05/21 Pantoprazole Sodium [Protonix] 1 tab PO DAILY 06/05/21 Bupropion HCl [Wellbutrin] 1 tab PO BEDTIME 08/04/21 Gatifloxacin 1 drop EACH EYE QID 08/04/21 Amlodipine [Norvasc*] 5 mg PO DAILY 30 Days #30 tab 08/07/21 Lisinopril [Zestril] 5 mg PO DAILY 30 Days #30 tab 08/07/21 predniSONE [Prednisone*] 15 mg PO SEECOM 08/31/21 Hydrocodone 7.5/APAP 325 [[place] 7.5/325 mg*] 1 tab PO Q6H PRN #30 tab 09/01/21 - Past Medical/Surgical History Diabetic: No -: HTN -: Prediabetes -: Hypothyroidism -: Depression -: Recurrent SBO -: GERD -: Crohn's disease -: Colitis -: Psychosocial/ Personal History: Patient is . - Family History Father Medical History: Cancer Notes: lung Cx Mother Medical History: Heart disease - Social History Smoking Status: Unknown if ever smoked Alcohol use: No CD- Drugs: No Caffeine use: No Place of Residence: Home Review of Systems General: Weakness Respiratory: Cough, Shortness of Breath Physical Examination Temp Pulse Resp BP Pulse Ox 97.6 F 78 22 H 137/69 93 09/18/21 11:45 09/18/21 11:45 09/18/21 11:45 09/18/21 11:45 09/18/21 11:45 General: Alert, Oriented x3, Mild distress - Problems (1) Pneumonia due to COVID-19 virus Current Visit: No Status: Acute Plan: Age 66 AW COVID penumonia/CXRY rev/ VS stable labs reviewed/ Minimla changes on CXRY Poss DC am on decadron
[2021-09-18] MEDS: BUDESONIDE 0.5 MG/2 ML NEB NEB SCH ×2 (15:46→20:15)
[2021-09-18] MEDS ORDERED: ALTEPLASE 2 MG/VIAL IV SCH (17:00)
[2021-09-18] MEDS ORDERED: WATER FOR INJECTION,STERILE 5 ML ONE (17:54)
--- NOTE | 2021-09-18 20:16 | P.PN ---
Subjective Date of Service: 09/18/21 Chief Complaint: COVID-19 pneumonia Subjective: No new changes No acute events since admission. On morning rounds, she reports dyspnea, but is maintaining adequate SpO2 readings on room air. She appeared comfortable eating breakfast this morning. Pulmonary Medicine recommendations appreciated. Review of Systems 10-point ROS is otherwise unremarkable Respiratory: Cough, Shortness of Breath Physical Examination - Vital Signs Temperature: 97.5 F Blood Pressure: 143/88 Pulse: 66 Respirations: 17 Pulse Ox (%): 94 - Physical Exam General: Alert, In no apparent distress, Oriented x3 HEENT: Atraumatic, Mucous membr. moist/pink, EOMI, Sclerae nonicteric Neck: Supple, JVD not distended Respiratory: Diminished, Rhonchi/gurgles Cardiovascular: No edema, Regular rate/rhythm, Normal S1 S2, No gallops, No rubs, No murmurs Gastrointestinal: Normal bowel sounds, Soft and benign, Non-distended, No tenderness, No rebound, No guarding Musculoskeletal: No clubbing Integumentary: No rashes Neurological: Normal speech, Normal affect Assessment And Plan - Plan # Suspect Viral Sepsis secondary COVID-19 Pneumonia She met SIRS criteria based on HR > 90 bpm and RR > 20 breaths/min, and the suspected source is COVID-19 pneumonia. - Sepsis order set was initiated - Initial Lactate was 0.6 - Blood cultures drawn - Broad spectrum antibiotics not started given no clear source of bacterial infection - In regards to fluids: - 30 mL/kg of IV fluids was not administered given SBP > 90, MAP > 65, lactic acid < 4 - Pulmonary Medicine consulted - recommendations appreciated - Recommended dexamethasone 6 mg daily - Incentive spirometry - PRN benzonatate - Isolation precautions # Crohn's Disease complicated by recurrent small bowel obstructions # Recent Admission for Early/Partial Small Bowel Obstruction versus Ileus secondary to Chronic Stricture - Stable, 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 # Right Lower Lobe Pulmonary Nodule (5 mm) # Bilateral Renal Cysts # Microscopic Hematuria Noted on last admission. - Follow-up with PCP Discharge Plan: Home Plan to discharge in: 24 Hours Physician Review: Patient Assessed, Agree with Above Assessment and Plan
[2021-09-19] MEDS: MORPHINE 2 MG/ML SYR IV PRN ×3 (05:41→20:50)
[2021-09-19] MEDS: BENZONATATE 100 MG CAP PO PRN ×2 (05:41→20:49)
[2021-09-19] MEDS: BUDESONIDE 0.5 MG/2 ML NEB NEB SCH ×2 (06:20→20:55)
[2021-09-19 06:35] LABS: Absolute Lymphocytes (CBC) 1.5 K/uL (0.7-4.9); Hematocrit 27.4 % (36.0-45.0); Lymphocytes % 21.3 % (15.3-44.8); MCV 83.9 fL (80-100); RBC Red Blood Cell Count 3.27 M/uL (3.86-4.86)
[2021-09-19 06:42] LABS: Albumin 2.5 g/dL (3.4-5.0); Bilirubin Total 0.2 mg/dL (0.2-1.0); C-Reactive Protein 45.7 mg/L (<3.00); Potassium 3.8 mmol/L (3.5-5.1); Protein, Total 6.1 g/dL (6.4-8.2)
[2021-09-19] MEDS ORDERED: POTASSIUM CL SA 10 MEQ TAB PO ONE (09:00)
[2021-09-19] MEDS: ENOXAPARIN 40 MG/0.4 ML SQ SCH (09:06)
[2021-09-19] MEDS: dexAMETHasone 4 MG TAB PO SCH (09:07)
--- NOTE | 2021-09-19 15:13 | P.PN ---
Subjective Date of Service: 09/19/21 Chief Complaint: COVID-19 pneumonia No acute events overnight. She reports persistent shortness of breath; however, she is maintaining adequate pulse oximetry readings on room air. She ambulated around the nursing pod with the nursing staff and did not require any supplemental oxygen. She endorses generalized weakness and would like to be evaluated by physical therapy. Dr. Martini has cleared her for discharge. Review of Systems 10-point ROS is otherwise unremarkable Respiratory: Shortness of Breath Physical Examination - Vital Signs Temperature: 98.7 F Blood Pressure: 125/59 Pulse: 98 Respirations: 19 Pulse Ox (%): 95 Assessment And Plan - Plan - Physical Exam General: Alert, In no apparent distress, Oriented x3 HEENT: Atraumatic, Mucous membr. moist/pink, EOMI, Sclerae nonicteric Neck: Supple, JVD not distended Respiratory: SpO2 94 % on room air. Diminished, minimal rhonchi/gurgles Cardiovascular: No edema, Regular rate/rhythm, Normal S1 S2, No gallops, No rubs, No murmurs Gastrointestinal: Normal bowel sounds, Soft and benign, Non-distended, No tenderness, No rebound, No guarding Musculoskeletal: No clubbing Integumentary: No rashes Neurological: Normal speech, Normal affect # Suspect Viral Sepsis secondary COVID-19 Pneumonia She met SIRS criteria based on HR > 90 bpm and RR > 20 breaths/min, and the suspected source is COVID-19 pneumonia. - Sepsis order set was initiated - Initial Lactate was 0.6 - Blood cultures drawn - Broad spectrum antibiotics not started given no clear source of bacterial infection - In regards to fluids: - 30 mL/kg of IV fluids was not administered given SBP > 90, MAP > 65, lactic acid < 4 - Pulmonary Medicine consulted - recommendations appreciated - Recommended dexamethasone 6 mg daily - Incentive spirometry - PRN benzonatate - Isolation precautions - Consult PT for generalized weakness - appreciate recs # Crohn's Disease complicated by recurrent small bowel obstructions # Recent Admission for Early/Partial Small Bowel Obstruction versus Ileus secondary to Chronic Stricture - Stable, 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 # Right Lower Lobe Pulmonary Nodule (5 mm) # Bilateral Renal Cysts # Microscopic Hematuria Noted on last admission. - Follow-up with PCP Discharge Plan: Home Plan to discharge in: 24 Hours
--- NOTE | 2021-09-19 21:28 | RAD REPORT ---
EXAM DESCRIPTION: RAD - Chest Single View - 09/19/2021 9:16 pm CLINICAL HISTORY: dyspnea COMPARISON: Chest exam 09/17/2021 TECHNIQUE: AP portable chest image was obtained 09/19/2021 9:16 pm . FINDINGS: Lung volumes are low. Under penetrated portable technique, very large soft tissue body hab itus affects and shallow inspiration all accentuate heart, vasculature and lung markings. Patchy inte rstitial and alveolar opacities are similar or slightly worse than the comparison study. No change in positioning of the PICC line. Heart and vasculature are normal. No measurable pleural effusion and n o pneumothorax. No acute bony abnormality seen. No acute aortic findings suspected. IMPRESSION: Limited portable study showing interstitial and patchy alveolar opacities that are simil ar or slightly worse than September 17 imaging
[2021-09-19 23:56] LABS: Blood Gas Oxyhemoglobin 93.6 % (94-97); Blood O2 Saturation 95.4 % (92-98.5)
[2021-09-20] MEDS: MORPHINE 2 MG/ML SYR IV PRN (05:36)
[2021-09-20] MEDS: BENZONATATE 100 MG CAP PO PRN (05:37)
[2021-09-20 07:14] LABS: Albumin 2.4 g/dL (3.4-5.0); Bilirubin Total 0.2 mg/dL (0.2-1.0); Potassium 3.7 mmol/L (3.5-5.1); Protein, Total 6.3 g/dL (6.4-8.2)
[2021-09-20] MEDS ORDERED: POTASSIUM CL SA 10 MEQ TAB PO ONE (07:40)
[2021-09-20] MEDS: BUDESONIDE 0.5 MG/2 ML NEB NEB SCH (08:00)
[2021-09-20 08:11] VITALS: BP 143/70; TEMP 97.4
--- NOTE | 2021-09-20 08:33 | RAD REPORT ---
EXAM DESCRIPTION: CT - Chest For Pe Angio - 09/20/2021 7:44 am CLINICAL HISTORY: Chest pain. rule out PE COMPARISON: Chest Abd Pelvis Wo Con dated 09/17/2021 TECHNIQUE: CT angiogram of the pulmonary arteries was performed with MIP. All CT scans are performed using dose optimization technique as appropriate and may include automated exposure control or mA/KV adjustment according to patient size. FINDINGS: No evidence of pulmonary thromboembolism. No acute aortic finding demonstrated. Bilateral interstitial lung opacities are present, slightly improved since comparative study. No significant pericardial or pleural fluid. No concerning bony finding. IMPRESSION: No evidence of pulmonary thromboembolism. Slight improvement in bilateral pulmonary opacities since comparative examination.
[2021-09-20] MEDS: dexAMETHasone 4 MG TAB PO SCH (08:41)
[2021-09-20] MEDS: ENOXAPARIN 40 MG/0.4 ML SQ SCH (08:41)
--- NOTE | 2021-09-20 09:05 | P.DS ---
Admission Date: 09/17/21 Discharge Date: 09/20/21 Primary Care Provider: Moriah Vasquez NP Disposition: ROUTINE DISCHARGE Discharge Condition: GOOD Reason for Admission: COVID-19 pneumonia Consultations: 1. Pulmonary Medicine Hospital Course: DIAGNOSES: # Suspect Viral Sepsis secondary COVID-19 Pneumonia # Crohn's Disease complicated by recurrent small bowel obstructions # Recent Admission for Early/Partial Small Bowel Obstruction versus Ileus secondary to Chronic Stricture # Hypertension # Hyperlipidemia # Hypothyroidism # Prediabetes # Depression # Gastroesophageal Reflux Disease # Right Lower Lobe Pulmonary Nodule (5 mm) # Bilateral Renal Cysts # Microscopic Hematuria HOSPITAL COURSE: Ms. Kindra Novoa is a pleasant 66-year-old female with a past medical history significant for Crohn's disease complicated by recurrent small bowel obstructions, hypertension, hyperlipidemia, hypothyroidism, and prediabetes who was admitted to the [facility] [place] on 09/17/2021 for shortness of breath. Upon further evaluation, she was found to have severe viral sepsis due to COVID- 19 pneumonia. She was admitted to the Medicine service and treated with steroids and bronchodilators. Over the course of her hospitalization, she improved significantly and was able to ambulate around her room without de-satting. She is currently maintaining adequate SpO2 readings on room air. She was seen by Pulmonary Medicine and cleared for discharge with dexamethasone and Pulmicort. On 09/20/2021, she was seen on morning rounds and deemed medically stable for discharge. She was discharged with instructions to schedule follow-up appointments with her PCP in 3-5 days, Pulmonology in 3-5 days, and her Chief Diversity Officer as previously scheduled. She was given prescriptions for dexamethasone, Pulmicort, and benzonatate. She was given the opportunity to ask questions and reported no further questions. Furthermore, all questions were answered to the best of my ability. Today, I personally spent 20 minutes on her case, of which greater than 50% of the time was spent in patient education, counseling, and coordination of care as described above. - Physical Exam General: Alert, In no apparent distress, Oriented x3 HEENT: Atraumatic, Mucous membr. moist/pink, EOMI, Sclerae nonicteric Neck: Supple, JVD not distended Respiratory: SpO2 98 % on room air. Diminished, minimal rhonchi/gurgles Cardiovascular: No edema, Regular rate/rhythm, Normal S1 S2, No gallops, No rubs, No murmurs Gastrointestinal: Normal bowel sounds, Soft and benign, Non-distended, No tenderness, No rebound, No guarding Musculoskeletal: No clubbing Integumentary: No rashes Neurological: Normal speech, Normal affect Vital Signs/Physical Exam: Temp Pulse Resp BP Pulse Ox 97.4 F 79 20 143/70 H 98 09/20/21 08:00 09/20/21 08:00 09/20/21 08:00 09/20/21 08:00 09/20/21 08:00 Laboratory Data at Discharge: WBC 6.9 K/uL (4.3-10.9) D 09/19/21 05:25 Hgb 9.0 g/dL (12.0-15.0) L 09/19/21 05:25 Hct 27.4 % (36.0-45.0) L 09/19/21 05:25 Plt Count 245 K/uL (152-406) 09/19/21 05:25 PT 11.1 SECONDS (9.5-12.5) 09/17/21 14:45 INR 1.01 09/17/21 14:45 Sodium 138 mmol/L (136-145) 09/20/21 05:20 Potassium 3.7 mmol/L (3.5-5.1) 09/20/21 05:20 BUN 18 mg/dL (7-18) 09/20/21 05:20 Creatinine 0.53 mg/dL (0.55-1.3) L 09/20/21 05:20 Glucose 86 mg/dL (74-106) 09/20/21 05:20 Magnesium 2.0 mg/dL (1.8-2.4) 09/20/21 05:20 Total Bilirubin 0.2 mg/dL (0.2-1.0) 09/20/21 05:20 AST 20 U/L (15-37) 09/20/21 05:20 ALT 37 U/L (12-78) 09/20/21 05:20 Alkaline Phosphatase 121 U/L (45-117) H 09/20/21 05:20 Lipase 167 U/L (73-393) 09/17/21 14:45 Home Medications: Levothyroxine Sodium 25 mcg PO [id number] 07/27/20 Sertraline [Zoloft*] 200 mg PO BEDTIME 07/27/20 buPROPion HCL [Bupropion HCl] 150 mg PO DAILY 12/10/20 Ondansetron [Zofran (Odt)*] 4 mg PO Q6H PRN #10 tab 03/08/21 Atorvastatin Calcium 10 mg PO DAILY 04/05/21 Metoprolol Succinate [Toprol Xl*] 50 mg PO BID 04/05/21 Cetirizine HCl [Zyrtec] 1 tab PO DAILY 06/05/21 Hyoscyamine Sulfate [Levsin TAB*] 0.125 tab PO Q4HP PRN 06/05/21 Pantoprazole Sodium [Protonix] 1 tab PO DAILY 06/05/21 Gatifloxacin 1 drop EACH EYE QID 08/04/21 Amlodipine [Norvasc*] 5 mg PO DAILY 30 Days #30 tab 08/07/21 Lisinopril [Zestril] 5 mg PO DAILY 30 Days #30 tab 08/07/21 predniSONE [Prednisone*] 15 mg PO SEECOM 08/31/21 Hydrocodone 7.5/APAP 325 [[place] 7.5/325 mg*] 1 tab PO Q6H PRN #30 tab 09/01/21 Benzonatate [Tessalon Perle*] 100 mg PO TIDP PRN #20 cap 09/20/21 Budesonide [Pulmicort Flexhaler] 90 mcg IH BID #1 inhaler 09/20/21 dexAMETHasone [Decadron*] 6 mg PO DAILY 5 Days #5 tab 09/20/21 New Medications: dexAMETHasone [Decadron*] 6 mg PO DAILY 5 Days #5 tab Budesonide [Pulmicort Flexhaler] 90 mcg IH BID #1 inhaler Benzonatate [Tessalon Perle*] 100 mg PO TIDP PRN #20 cap PRN Reason: Cough Physician Discharge Instructions: 1. Please schedule a follow-up with your PCP in 3-5 days 2. Please schedule a follow-up with Pulmonary (Dr. Martini) in 3-5 days. Diet: Regular Activity: Ad jaylen Followup: Abel Martini MD [ACTIVE - CAN ADMIT] - Moriah Vasquez NP [Primary Care Provider] -
[2021-09-20 09:49] VITALS: O2SAT 98
== END 2021-09-20 10:59 | disposition home or self-care (01) | DRG 871 ==
LOC: ER 14:00 → ERHOLD 19:10 → 4TH 21:09
PROVIDERS: ADMIT Internal Medicine; ATTEND Internal Medicine
DX: A41.89 Other specified sepsis (principal); J12.82 Pneumonia due to coronavirus disease 2019; U07.1 COVID-19; K50.90 Crohn's disease, unspecified, without complications; I10 Essential (primary) hypertension; E78.5 Hyperlipidemia, unspecified; E03.9 Hypothyroidism, unspecified; R73.03 Prediabetes; F32.A Depression, unspecified; K21.9 Gastro-esophageal reflux disease without esophagitis; R91.1 Solitary pulmonary nodule; N28.1 Cyst of kidney, acquired; R31.29 Other microscopic hematuria; Z91.040 Latex allergy status
CPT/HCPCS: 36415; 71045; 71250; 71275; 74176; 80048; 80053; 80076; 81003; 82805; 83605; 83690; 83735; 83880; 84145; 84484; 85025; 85379; 85610; 86140; 87040; 87811; 93005; 94640; 96374; 96375; 97116; 97161; 99285; J0456; J1650; J2270; J2405; J2930; J2997; J7030; J7040; J7050; J8540; Q9967

== ENCOUNTER 2021-09-26 07:46 | Observation (INO) | payer OTHER ==
--- OUTSIDE RECORDS SUMMARY | 2021-09-26 07:53 | XMS REPORT | Continuity of Care Document ---
:1955 Author Organization [facility] t Address [facility] [place] [address] Care Team Providers Name Role Phone Kael MEADOWS MD, Enrique A Primary Care Physician [phone] JENKINS, MARCO Attending Clinician Unavailable JENKINS, MARCO Attending Clinician Unavailable ANIBAL FUNES Attending Clinician Unavailable LESA SINGH Attending Clinician Unavailable MATIAS FRAZIER Attending Clinician Unavailable KIYA PEREZ Attending Clinician Unavailable LANCE PEÑA Attending Clinician Unavailable Matias Frazier MD Attending Clinician CHARLY VANN Attending Clinician Unavailable OBINNA BRISCOE Attending Clinician Unavailable Kaci PARSONS, Ace Taylor Attending Clinician Javier May MA Attending Clinician Unavailable JENKINS, MARCO Admitting Clinician Unavailable LESA SINGH Admitting Clinician Unavailable LANCE PEÑA Admitting Clinician Unavailable CHARLY VANN Admitting Clinician Unavailable Payers Payer Name Policy Type Policy Number Effective Date Expiration Date Blair ruth MEDICARE A B [id number] 2021 00:00:00 BCBS PPO POS EPO [id number] 2010 CHOICE 00:00:00 PPO/EPO - BCBS [id number] MEDICARE PART A [id number] \T\ B - MEDICARE CVCP-BCBS [id number] Problems Condition Condition Condition Status Onset Resolution Last Treating Co mments Source Name Details Category Date Date Treatment Clinician Date Crohn's Crohn's Disease Active 2020-02 [facility] disease disease 2-22 Guy (HCCode) (HCCode) 00:00: of 00 Medicin e Essential Essential Disease Active Met hodi hypertensi hypertensi 8-13 [facility] on [facility] 00:00: [facility]osp[facility] 00 l Chest pain Chest pain Disease Active M ethodi 2-02 [facility] 00[facility] Hospita 00 l 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:00: Hospita involving involving 00 l [place] 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 [...] 00 Center Latex Propensi Active Rash 2020-02 [facility] ty to 2-10 Guy adverse 00:00: of reaction 00 Medicin s to e substanc e NO KNOWN Allergy Active [facility] ALLERGIE S Latex, Propensi Active Itching [facility] Natural ty to [facility] Rubber adverse Hospita reaction l s to drug Family History Family Member Diagnosis Comments Start Date Stop Date Source Natural father [facility] Social History Social Habit Start Date Stop Date Quantity Comments Source History [facility] Std Drinks Hospit al History [facility] Exposure to 2021-08-17 2021-08-27 Not sure [facility] Colleg e SARS-CoV-2 (event) 00:00:00 08:46:00 of Med icine Cigarettes smoked 2021-08-27 2021-08-27 [facility] current (pack per 00:00:00 00:00:00 of Medi day) - Reported Alcohol intake 2021-08-27 2021-08-27 .14 /d [facility] Col lege 00:00:00 00:00:00 of Medicine Tobacco use and 2021-08-27 2021-08-27 Smokeless tobacco [facility] exposure 00:00:00 00:00:00 non-user of Medicine History [facility] 2018-03-19 2018-03-19 1 [facility] Frequency 00:00:00 00:00:00 Hospita l History of tobacco 1995-02-04 Cigarette Smoker [facility] use 00:00:00 of Medicine Sex [birth year] F [facility] 00:00:00 00:00:00 of Medicine Smoking Status Start Date Stop Date Source Ex-smoker 2021-08-27 00:00:00 2021-08-27 00:00:00 [facility] ollege of Medicine Never smoked tobacco [facility] Eric ege of Medicine Medications Ordered Filled Start Stop Current Ordering Indication Dosage Frequency Signature Comments Components Source Medication Medication Date Date Medication? Clinician (SIG) Name Name atorvastati Yes 10mg Take 10 mg Ran n (LIPITOR) 7-12 by mouth Eric ege 10 MG 09:06: daily. of tablet 53 Medicin e Cetirizine Yes Take 1 [facility] (ZYRTEC 7-12 Chew Tab Eric ege ALLERGY) 10 09:06: by mouth of MG CAPS 53 daily. Medicin e hyoscyamine 2021-0 Yes .125mg Take 0.125 [facility] (ANASPAZ, 7-12 mg by [facility]) 09:06: mouth of 0.125 MG 53 every 4 Medicin tablet hours as e needed for Cramping. metoprolol 2021-0 Yes 50mg Take 50 mg [facility] (TOPROL-XL) 7-12 by mouth Eric ege 50 MG XL 09:06: daily. of tablet 53 Medicin e hyoscyamine 2021-0 Yes .125mg Take 0.125 Ran (ANASPAZ, 7-12 mg by [facility]) 09:06: mouth of 0.125 MG 53 every 4 Medicin tablet hours as e needed for Cramping. gatifloxaci 2021-0 Yes 1[drp] Place 1 [facility] (ZYMAXID) 7-12 Drop into Col lege 0.5 % 09:06: both eyes of ophthalmic 53 four times Med icin solution daily. e atorvastati 2021-0 Yes 10mg Take 10 mg Ran n (LIPITOR) 6-28 by mouth Eric ege 10 MG 08:19: daily. of tablet 36 Medicin e Cetirizine 0 Yes Take 1 [facility] (ZYRTEC 6-28 Chew Tab Eric ege ALLERGY) 10 08:19: by mouth of MG CAPS 36 daily. Medicin e hyoscyamine 2021-0 Yes .125mg Take 0.125 [facility] (ANASPAZ, 6-28 mg by [facility]) 08:19: mouth of 0.125 MG 36 every 4 Medicin tablet hours as e needed for Cramping. metoprolol 2021-0 Yes 50mg Take 50 mg [facility] (TOPROL-XL) 6-28 by mouth Eric ege 50 MG XL 08:19: daily. of tablet 36 Medicin e pantoprazol 2021-0 Yes 40mg Take 40 mg [facility] e 6-28 by mouth Guy (PROTONIX) 08:19: daily. of 40 MG 36 Medicin tablet e hyoscyamine 2021-0 Yes .125mg Take 0.125 Ran (LEVSIN) 6-28 mg by Guy 0.125 MG 08:19: mouth of tablet 36 every 4 Medicin hours as e needed for Cramping. gatifloxaci Yes 1[drp] Place 1 [facility] (ZYMAXID) 6-28 Drop into Col lege 0.5 % 08:19: both eyes of ophthalmic 36 four times Med icin solution daily. e pantoprazol Yes 40mg Take 40 mg [facility] e 6-28 by mouth Guy (PROTONIX) 08:19: daily. of 40 MG 36 Medicin tablet e hyoscyamine Yes .125mg Take 0.125 [facility] (ANASPAZ, 5-12 mg by Guy LEVSIN) 14:22: mouth of 0.125 MG 31 every 4 Medicin tablet hours as e needed for Cramping. metoprolol Yes 50mg Take 50 mg [facility] (TOPROL-XL) 5-12 by mouth Eric ege 50 MG XL 14:22: daily. of tablet 31 Medicin e pantoprazol Yes 40mg Take 40 mg Ran e 5-12 by mouth Guy (PROTONIX) 14:22: daily. of 40 MG 31 [...] Take by Sixto adams OR 03-29 mouth. Guy 12:06: 00:00 of 07 :00 Medicin e MINERAL OIL 2021- No Take by Sixto adams [place] 03-29 mouth. Guy 12:06: 00:00 of 07 :00 Medicin e Mesalamine 2021- No Take by [facility] (PENTASA) 03-29 mouth. Guy 500 MG CPCR 12:04: 00:00 of 57 :00 Medicin e Mesalamine 2021- No Take by [facility] (PENTASA) 03-29 mouth. Guy 500 MG CPCR 12:04: 00:00 of 57 :00 Medicin e ferrous 2021-0 2021- No 325mg Take 325 [facility] sulfate 325 -12 18-11 mg by Colleg e (65 Fe) MG 12:04: 00:00 mouth of tablet 30 :00 daily. Medicin e ferrous 2021-0 202- No 325mg Take 325 [facility] or sulfate [...] on. Lactobacill 2021-0 2021- No Take by Ba [facility]lor us 03-29 mouth. Guy (ACIDOPHILU 12:03: 00:00 of S OR) 05 :00 Medicin e Cholecalcif 2021-0 Yes Take by [facility] alex 2-11 mouth. Guy (VITAMIN D) 11:46: of 125 MCG 58 Medicin (5000 UT) e CAPS metFORMIN 2021-0 Yes Take 1 [facility] 500 MG TB24 2-11 capsule by Co llege 11:46: mouth of 58 daily. Medicin e Cholecalcif 2021-0 Yes Take by [facility] alex 2-11 mouth. Guy (VITAMIN D) 11:46: of 125 MCG 58 Medicin (5000 UT) e CAPS metFORMIN 2021-0 Yes Take 1 [facility] 500 MG TB24 2-11 capsule by Co llege 11:46: mouth of 58 daily. Medicin e Cholecalcif 2021-0 Yes Take by [facility] alex 2-11 mouth. Guy (VITAMIN D) 11:46: of 125 MCG 58 Medicin (5000 UT) e CAPS metFORMIN 2-0 Yes Take 1 [facility] 500 MG TB24 2-11 capsule by Co llege 11:46: mouth of 58 daily. Medicin e Cholecalcif 2021-0 Yes Take by [facility] alex 2-11 mouth. Guy (VITAMIN D) 11:46: of 125 MCG 58 Medicin (5000 UT) e CAPS Cholecalcif Yes Take by [facility] alex 2-11 mouth. Guy (VITAMIN D) 11:46: of 125 MCG 58 Medicin (5000 UT) e CAPS atorvastati Yes 10mg Take 10 mg [facility] n (LIPITOR) 2-11 by mouth Eric ege 10 MG 11:46: daily. of tablet 58 Medicin e Cetirizine Yes Take 1 [facility] (ZYRTEC 2-11 Chew Tab Eric ege ALLERGY) 10 11:46: by mouth of MG CAPS 58 daily. Medicin e hyoscyamine Yes .125mg Take 0.125 [facility] (LEVSIN) 2-11 mg by Guy 0.125 MG 11:46: mouth of tablet 58 [...] 58 Medicin e Acetaminoph Yes Take by [facility] en (TYLENOL 2-11 mouth. Colleg e CHILDRENS) 11:29: Take by of 160 MG/5ML 58 mouth q 4 Medi renea SUSP hours prn e Acetaminoph 0 Yes Take by [facility] en (TYLENOL 2-11 mouth. Colleg e CHILDRENS) 11:29: Take by of 160 MG/5ML 58 mouth q 4 Medi renea SUSP hours prn e Acetaminoph 2021-0 Yes Take by [facility] en (TYLENOL 2-11 mouth. Colleg e CHILDRENS) 11:29: Take by of 160 MG/5ML 58 mouth q 4 Medi renea SUSP hours prn e Acetaminoph 2021-0 Yes Take by [facility] (TYLENOL 2-11 mouth. Colleg e CHILDRENS) 11:29: Take by of 160 MG/5ML 58 mouth q 4 Medi renea SUSP hours prn e predniSONE 2021-0 Yes [id number] 20mg Take 1 [facility] (DELTASONE) 2-11 Tablet by Col lege 20 MG 00:00: mouth of tablet 00 daily. Medicin Taper by 5 e mg every week. predniSONE 2021-0 Yes [id number] Take 20 mg [facility] (DELTASONE) 2-11 po qd. Colleg e 5 MG tablet 00:00: Start of 00 tapering Medicin off by 5 e mg every 7 days after the 04/08/21. predniSONE 2021-0 Yes [id number] 20mg Take 1 [facility] (DELTASONE) 2-11 Tablet by Col lege 20 MG 00:00: mouth of tablet 00 daily. Medicin Taper by 5 e mg every week. predniSONE 2021-0 Yes [id number] Take 20 mg Ran (DELTASONE) 2-11 po qd. Colleg e 5 MG tablet 00:00: Start of 00 tapering Medicin off by 5 e mg every 7 days after the 04/08/21. predniSONE 2021-0 Yes [id number] 20mg Take 1 [facility] (DELTASONE) 2-11 Tablet by Col lege 20 MG 00:00: mouth of tablet 00 daily. Medicin Taper by 5 e mg every week. predniSONE 2021-0 Yes [id number] Take 20 mg [facility] (DELTASONE) 2-11 po qd. Colleg e 5 MG tablet 00:00: Start of 00 tapering Medicin off by 5 e mg every 7 days after the 04/08/21. predniSONE 2021-0 Yes [id number] 20mg Take 1 [facility] (DELTASONE) 2-11 Tablet by Col lege 20 MG 00:00: mouth of tablet 00 daily. Medicin Taper by 5 e mg every week. MINERAL OIL 2020-02 Yes Take by [facility] OR 2-10 mouth. College 09:20: of 34 Medicin e Cholecalcif 2020-02 Yes Take by [facility] alex 2-10 mouth. Guy (VITAMIN D) 09:20: of 125 MCG 34 Medicin (5000 UT) e CAPS ferrous 2020-02 Yes 325mg Take 325 [facility] sulfate 2-10 mg by Guy (FEROSUL) 09:19: mouth of 325 (65 Fe) 41 daily. Medici n MG tablet e Mesalamine 2020-02 Yes Take by [facility] or (PENTASA) 2-10 mouth. Guy 500 MG CPCR 09:19: of 41 Medicin e predniSONE 2020-02 Yes Ran (DELTASONE) 1-26 College 20 MG 00:00: of tablet 00 Medicin e predniSONE 2020-02- No 20mg Take 20 mg [facility] (DELTASONE) 03-13 by mouth Col lege 20 MG 00:00: 00:00 daily. of tablet 00 :00 Medicin e predniSONE 2020-02- No 20mg Take 20 mg [facility] (DELTASONE) 03-13 by mouth Col lege 20 [...] Take 40 mg Ran e 12 by [facility] (PROTONIX) 00:00: daily. of 40 MG 00 Medicin tablet e pantoprazol 2020-02- No 40mg Take 40 mg [facility] e 02-27 by [facility] (PROTONIX) 00:00: 00:00 daily. of 40 MG 00 :00 Medicin tablet e pantoprazol 2020-02- No 40mg Take 40 mg Ran e 02-27 by mouth Guy (PROTONIX) 00:00: 00:00 daily. of 40 MG 00 :00 Medicin tablet e lisinopril 2020-02 Yes 1 po daily [facility] (PRINIVIL, 02-23 in the [facility]) 5 00:00: morning of MG tablet 00 Medicin e lisinopril 2020-02 Yes 1 po daily [facility] (PRINIVIL, 02-23 in the [facility]) 5 00:00: morning of MG tablet 00 Medicin e lisinopril 2020-02 Yes 1 po daily [facility] (PRINIVIL, 02-23 in the [facility]) 5 00:00: morning of MG tablet 00 Medicin e lisinopril 2020-02 Yes 1 po daily [facility] (PRINIVIL, 02-23 in the [facility]) 5 00:00: morning of MG tablet 00 Medicin e lisinopril 2020-02 Yes 1 po daily [facility] (PRINIVIL, 02-23 in the [facility]) 5 00:00: morning of MG tablet 00 Medicin e lisinopril 2020-02 Yes 1 po daily [facility] (PRINIVIL, 02-23 in the [facility]) 5 00:00: morning of MG tablet 00 Medicin e sertraline 2020-02 Yes Ran (ZOLOFT) 02-17 Guy 100 MG 00:00: of tablet 00 Medicin e sertraline 2020-02 Yes [facility] (ZOLOFT) -02 Guy 100 MG 00:00: of tablet 00 Medicin e buPROPion 2020-02 Yes TAKE 2 [facility] (WELLBUTRIN 1-02 TABLETS BY Co llege ) 75 MG 00:00: MOUTH of tablet 00 EVERY Medicin MORNING e AND 1 TABLET BY MOUTH EVERY EVENING buPROPion 2020-02 Yes TAKE 2 [facility] (WELLBUTRIN 1-02 TABLETS BY Co llege ) [...] EVERY EVENING sertraline 2020-02 Yes Ran (ZOLOFT) 1- College 100 MG 00:00: of tablet 00 Medicin e buPROPion 2020-02 Yes TAKE 2 [facility] (WELLBUTRIN 1-02 TABLETS BY Co llege ) 75 MG 00:00: MOUTH of tablet 00 EVERY Medicin MORNING e AND 1 TABLET BY MOUTH EVERY EVENING sertraline 2020-02 Yes [facility] (ZOLOFT) 1 College 100 MG 00:00: of tablet 00 Medicin e buPROPion 2020-02 Yes TAKE 2 [facility] (WELLBUTRIN 1-02 TABLETS BY Co llege ) 75 MG 00:00: MOUTH of tablet 00 EVERY Medicin MORNING e AND 1 TABLET BY MOUTH EVERY EVENING sertraline 2020-02 Yes [facility] (ZOLOFT) 1 College 100 MG 00:00: of tablet 00 Medicin e buPROPion 2020-02 Yes TAKE 2 [facility] (WELLBUTRIN 1-02 TABLETS BY Co llege ) 75 MG 00:00: MOUTH of tablet 00 EVERY Medicin MORNING e AND 1 TABLET BY MOUTH EVERY EVENING Adalimumab 2020-02 Yes [facility] (HUMIRA 0-25 [facility]) 40 00:00: of MG/0.8ML 00 Medicin injection e Adalimumab 2020-02- No [facility] (HUMIRA 0-25 -14 Guy PEN) 40 00:00: 00:00 of MG/0.8ML 00 :00 Medicin injection e levothyroxi Yes levothyrox [facility] 09-17 ine 25 mcg Guy (SYNTHROID) 00:00: tablet of 25 MCG 00 TAKE 1 Medicin tablet TABLET BY e MOUTH DAILY IN THE MORNING WITH JUST A SIP OF WATER. WAIT 30 MINUTES BEFORE EATING OR DRINKING ANYTHING levothyroxi 0 Yes levothyrox [facility] 09-17 ine 25 mcg Guy (SYNTHROID) 00:00: tablet of 25 MCG 00 TAKE 1 Medicin tablet TABLET BY e MOUTH DAILY IN THE MORNING WITH JUST A SIP OF WATER. WAIT 30 MINUTES BEFORE EATING OR DRINKING ANYTHING levothyroxi 2020-0 Yes levothyrox [facility] 8 ine 25 mcg Guy (SYNTHROID) 00:00: tablet of 25 MCG 00 TAKE 1 Medicin tablet TABLET BY e MOUTH DAILY IN THE MORNING WITH JUST A SIP OF WATER. WAIT 30 MINUTES BEFORE EATING OR DRINKING ANYTHING levothyroxi 2020-0 Yes levothyrox [facility] 8 ine 25 mcg Guy (SYNTHROID) 00:00: tablet of 25 MCG 00 TAKE 1 Medicin tablet TABLET BY e MOUTH DAILY IN THE MORNING WITH JUST A SIP OF WATER. WAIT 30 MINUTES BEFORE EATING OR DRINKING ANYTHING levothyroxi 2020-0 Yes levothyrox [facility] 09-17 ine 25 mcg Guy (SYNTHROID) 00:00: tablet of 25 MCG 00 TAKE 1 Medicin tablet TABLET BY e MOUTH DAILY IN THE MORNING WITH JUST A SIP OF WATER. WAIT 30 MINUTES BEFORE EATING OR DRINKING ANYTHING levothyroxi 2020-0 Yes levothyrox [facility] 09-17 ine 25 mcg Guy (SYNTHROID) 00:00: tablet of 25 MCG 00 TAKE 1 Medicin tablet TABLET BY e MOUTH DAILY IN THE MORNING WITH JUST A SIP OF WATER. WAIT 30 MINUTES BEFORE EATING OR DRINKING ANYTHING lisinopriL- 2020-0 Yes [id number] 1{tbl} QD TAKE 1 [facility] hydrochloro 7-[address] thiazide 00:00: MOUTH Hospita (PRINZIDE) 00 DAILY l 10-12.5 mg per tablet metoprolol 2020-0 Yes [id number] TAKE 1 Me thodi tartrate 7-29 TABLET(50 st (LOPRESSOR) 00:00: MG) BY Hosp [facility] 50 mg 00 MOUTH l tablet TWICE DAILY metoprolol 2020-0 2020- No [id number] TAKE 1 M ethodi tartrate 4-26 07-29 TABLET(50 st (LOPRESSOR) 00:00: 00:00 MG) BY Hos alba 50 mg 00 :00 MOUTH l tablet TWICE DAILY lisinopriL- 2020-0 2020- No [id number] 1{tbl} QD TAKE 1 [facility] hydrochloro 4-26 07-[address] thiazide 00:00: 00:00 MOUTH Hospita (PRINZIDE) 00 :00 DAILY l 10-12.5 mg per tablet lisinopriL- 2022020- No [id number] 1{tbl} QD Take 1 [facility] hydrochloro 03-12- tablet by st thiazide 00:00: 00:00 mouth Hospita (PRINZIDE) 00 :00 daily. l 10-12.5 mg per tablet metoprolol 2020- No [id number] 50mg Q.5D Take 1 M [facility]i tartrate 03-12-26 tablet (50 st (LOPRESSOR) 00:00: 00:00 mg total) Hospita 50 mg 00 :00 by mouth 2 l tablet (two) times a day. lisinopril- 2020- No [id number] 1{tbl} QD TAKE 1 [facility] hydrochloro 03-[address] thiazide 00:00: 00:00 MOUTH [facility]ospita (PRINZIDE) 00 :00 DAILY l 10-12.5 mg per tablet metoprolol 2020- No [id number] TAKE 1 M ethodi tartrate 03-17 TABLET(50 st (LOPRESSOR) 00:00: 00:00 MG) BY Hos alba 50 mg 00 :00 MOUTH l tablet TWICE DAILY sertraline Yes sertraline [facility] (ZOLOFT) 50 - 50 mg College MG tablet 00:00: tablet of 00 Medicin e sertraline 2021- No sertraline Ran (ZOLOFT) 50 - 02-11 50 mg Colleg e MG tablet 00:00: 00:00 tablet of 00 :00 Medicin e sertraline 2021- No sertraline [facility] (ZOLOFT) 50 02-17 02-11 50 mg Colleg [...] mvit,calc,m Yes Take by Met brianne in-folic 09-[address] [id number] 16:39: Hospita 200 mcg 47 l tablet [...] Observation Time Observation Value Comments Source HEIGHT 2021-09-20 13:13:00 154.9 cm WEIGHT 2021-09-20 13:13:00 111.131 kg Systolic blood 2021-08-27 14:02:00 95 mm[Hg] [facility] pressure Medicine Diastolic blood 2021-08-27 14:02:00 56 mm[Hg] [facility] Medicine Heart rate 2021-08-27 14:02:00 76 /min sp02 97 [facility] Body temperature 2021-08-27 14:02:00 36.72 Nadiya [facility] Respiratory rate 2021-08-27 14:02:00 16 /min [facility] Body height 2021-08-27 14:02:00 154.9 cm [facility] Body weight 2021-08-27 14:02:00 116.756 kg [facility] BMI 2021-08-27 14:02:00 48.64 kg/m2 [facility] WEIGHT 2021-08-15 05:40:00 111.9 kg WEIGHT 2021-08-14 06:00:00 112.9 kg WEIGHT 2021-08-15 05:40:00 111.9 kg WEIGHT 2021-08-14 06:00:00 112.9 kg Systolic blood 2021-08-13 13:12:00 131 mm[Hg] [facility] pressure Medicine Diastolic blood 2021-08-13 13:12:00 84 mm[Hg] [facility] pressure Medicine Heart rate 2021-08-13 13:12:00 63 /min spo2 97 [facility] of [facility] Body temperature 2021-08-13 13:12:00 36.67 Nadiya [facility] Body height 2021-08-13 13:12:00 154.9 cm [facility]lege of Medicine Body weight 2021-08-13 13:12:00 115.032 kg [facility] of Medicine BMI 2021-08-13 13:12:00 47.92 kg/m2 [facility] ol[facility] of Medicine Systolic blood 2021-06-27 19:19:00 111 mm[Hg] [facility] Medicine Diastolic blood 2021-06-27 19:19:00 70 mm[Hg] [facility] Medicine Heart rate 2021-06-27 19:19:00 67 /min [facility] Body temperature 2021-06-27 19:19:00 36.11 Nadiya [facility] Respiratory rate 2021-06-27 19:19:00 16 /min [facility] Body height 2021-06-27 19:19:00 154.9 cm [facility] of Medicine Body weight 2021-06-27 19:19:00 109.77 kg [facility] of Medicine BMI 2021-06-27 19:19:00 45.73 kg/m2 [facility] of Medicine WEIGHT 2021-05-17 12:46:00 52.98 kg WEIGHT 2021-05-17 06:25:00 107.911 kg WEIGHT 2021-05-17 12:46:00 52.98 kg WEIGHT 2021-05-17 06:25:00 107.911 kg Body weight 2021-03-29 17:28:00 110.678 kg [facility] BMI 2021-03-29 17:28:00 46.10 kg/m2 [facility] of [facility] Systolic blood 2021-03-29 17:28:00 143 mm[Hg] [facility] Diastolic blood 2021-03-29 17:28:00 82 mm[Hg] [facility] Heart rate 2021-03-29 17:28:00 60 /min [facility] Body temperature 2021-03-29 17:28:00 36.22 Nadiya [facility] Respiratory rate 2021-03-29 17:28:00 16 /min [facility] Body height 2021-03-29 17:28:00 154.9 cm [facility] Body height 2021-03-01 15:04:00 154.9 cm [facility] Body weight 2021-03-01 15:04:00 107.593 kg [facility] BMI 2021-03-01 15:04:00 44.82 kg/m2 [facility] HEIGHT 2021-02-03 05:20:00 154.9 cm WEIGHT 2021-02-03 05:20:00 106.505 kg HEIGHT 2021-02-03 05:20:00 154.9 cm WEIGHT 2021-02-03 05:20:00 106.505 kg Systolic blood 2021-01-25 15:06:00 122 mm[Hg] [facility] Diastolic blood 2021-01-25 15:06:00 80 mm[Hg] [facility] Heart rate 2021-01-25 15:06:00 81 /min [facility] Body temperature 2021-01-25 15:06:00 36.28 Nadiya [facility] Respiratory rate 2021-01-25 15:06:00 14 /min [facility] Body height 2021-01-25 15:06:00 154.9 cm [facility] Body weight 2021-01-25 15:06:00 106.142 kg [facility] BMI 2021-01-25 15:06:00 44.21 kg/m2 [facility] Procedures Procedure Date / Time Performing Clinician Source Performed CBC W/AUTO DIFF WITH 2021-07-16 09:57:55 [facility] BASIC METABOLIC PANEL 2021-07-16 09:57:55 [facility] HEPATIC FUNCTION PANEL 2021-07-16 09:57:55 [facility] SEDIMENTATION RATE 2021-07-16 09:57:55 [facility]lege of [facility] TREATMENT CONDITIONS 2021-07-16 09:57:55 [facility] Plan of Care Planned Activity Planned Date Details Comments Source Future Scheduled 2021-08-27 Screening for malignant [facility] Test 09:36:56 neoplasm of colon Medicine (procedure) [code = 725569261] Future Scheduled 2021-08-27 Screening for malignant [facility] Test 09:36:56 neoplasm of breast Medicine (procedure) [code = [id number]] Future Scheduled 2021-08-27 TETANUS SHOT (ADULT) [facility] Test 09:36:56 [code = TETANUS SHOT Medicin e (ADULT)] Future Scheduled 2021-08-27 BMI FOLLOW UP PLAN [code [facility] Test 09:36:56 = BMI FOLLOW UP PLAN] Medici ne Future Scheduled 2021-08-27 Hepatitis C screening [facility] of Test 09:36:56 (procedure) [code = Medicine [id number]] Future Scheduled 2021-08-27 ZOSTER VACCINE (1 of 2) [facility] Test 09:36:56 [code = ZOSTER VACCINE (1 Me dicine of 2)] Future Scheduled 2021-08-27 COVID-19 Vaccine (2 - Ba [facility] of Test 09:36:56 Pfizer series) [code = Medic ine COVID-19 Vaccine (2 - Pfizer series)] Future Scheduled 2021-08-27 MEDICARE IPPE (WELCOME TO [facility] of Test 09:36:56 MEDICARE) [code = Medicine MEDICARE IPPE (WELCOME TO MEDICARE)] Future Scheduled 2021-08-27 FALL SCREEN [code = FALL [facility] of Test 09:36:56 SCREEN] Medicine Future Scheduled 2021-08-27 Screening for [facility] Col lege of Test 09:36:56 osteoporosis (procedure) Med icine [code = 333516745] Future Scheduled 2021-08-27 Pneumococcal 65+ (1 - Ba [facility] Test 09:36:56 PCV) [code = Pneumococcal Me dicine 65+ (1 - PCV)] Future Scheduled 2021-08-27 FLU VACCINE > 6 MONTHS B [facility] of Test 09:36:56 [code = FLU VACCINE > 6 Medi cine MONTHS] Future Scheduled 2021-08-13 Screening for malignant [facility] of Test 08:16:08 neoplasm of colon Medicine (procedure) [code = [id number]] Future Scheduled 2021-08-13 Screening for malignant [facility] of Test 08:16:08 neoplasm of breast Medicine (procedure) [code = [id number]] Future Scheduled 2021-08-13 TETANUS SHOT (ADULT) [facility] Test 08:16:08 [code = TETANUS SHOT Medicin e (ADULT)] Future Scheduled 2021-08-13 BMI FOLLOW UP PLAN [code [facility] of Test 08:16:08 = BMI FOLLOW UP PLAN] Medici ne Future Scheduled 2021-08-[address] [facility] Test 08:16:08 (procedure) [code = Medicine [id number]] Future Scheduled 2021-08-13 ZOSTER VACCINE (1 of 2) [facility] Test 08:16:08 [code = ZOSTER VACCINE (1 Me dicine of 2)] Future Scheduled 2021-08-13 COVID-19 Vaccine (2 - Ba [facility] Test 08:16:08 Pfizer series) [code = Medic ine COVID-19 Vaccine (2 - Pfizer series)] Future Scheduled 2021-08-13 MEDICARE IPPE (WELCOME TO [facility] Test 08:16:08 MEDICARE) [code = Medicine MEDICARE IPPE (WELCOME TO MEDICARE)] Future Scheduled 2021-08-13 FALL SCREEN [code = FALL [facility] Test 08:16:08 SCREEN] Medicine Future Scheduled 2021-08-13 Screening for [facility] of Test 08:16:08 osteoporosis (procedure) Med icine [code = 415724419] Future Scheduled 2021-08-13 Pneumococcal 65+ (1 - Ba [facility] of Test 08:16:08 PCV) [code = Pneumococcal Me dicine 65+ (1 - PCV)] Future Scheduled 2021-08-13 FLU VACCINE > 6 MONTHS B [facility] of Test 08:16:08 [code = FLU VACCINE > 6 Medi cine MONTHS] Future Scheduled 2021-06-27 Screening for malignant [facility] Test 14:20:32 neoplasm of colon Medicine (procedure) [code = 026655985] Future Scheduled 2021-06-27 Screening for malignant [facility] Test 14:20:32 neoplasm of breast Medicine (procedure) [code = 967043732] Future Scheduled 2021-06-27 TETANUS SHOT (ADULT) [facility] of Test 14:20:32 [code = TETANUS SHOT Medicin e (ADULT)] Future Scheduled 2021-06-27 BMI FOLLOW UP PLAN [code [facility] Test 14:20:32 = BMI FOLLOW UP PLAN] Medici ne Future Scheduled 2021-06-[address] [facility] Test 14:20:32 (procedure) [code = Medicine 728109722] Future Scheduled 2021-06-27 ZOSTER VACCINE (1 of 2) [facility] Test 14:20:32 [code = ZOSTER VACCINE (1 Me dicine of 2)] Future Scheduled 2021-06-27 COVID-19 Vaccine (2 - Ba [facility] Test 14:20:32 Pfizer 3-dose series) Medici ne [code = COVID-19 Vaccine (2 - Pfizer 3-dose series)] Future Scheduled 2021-06-27 MEDICARE IPPE (WELCOME TO [facility] Test 14:20:32 MEDICARE) [code = Medicine MEDICARE IPPE (WELCOME TO MEDICARE)] Future Scheduled 2021-06-27 FALL SCREEN [code = FALL [facility] Test 14:20:32 SCREEN] Medicine Future Scheduled 2021-06-27 Screening for [facility] of Test 14:20:32 osteoporosis (procedure) Med icine [code = 241752932] Future Scheduled 2021-06-27 Pneumococcal 65+ (1 of 1 [facility] Test 14:20:32 - PPSV23) [code = Medicine Pneumococcal 65+ (1 of 1 - PPSV23)] Future Scheduled 2021-06-27 FLU VACCINE > 6 MONTHS B [facility] Test 14:20:32 [code = FLU VACCINE > 6 Medi cine MONTHS] Future Scheduled 2021-04-04 Screening for malignant [facility] Test 13:40:02 neoplasm of colon Medicine (procedure) [code = 666028972] Future Scheduled 2021-04-04 Screening for malignant [facility] Test 13:40:02 neoplasm of breast Medicine (procedure) [code = 967248050] Future Scheduled 2021-04-04 TETANUS SHOT (ADULT) [facility] Test 13:40:02 [code = TETANUS SHOT Medicin e (ADULT)] Future Scheduled 2021-04-04 BMI FOLLOW UP PLAN [code [facility] Test 13:40:02 = BMI FOLLOW UP PLAN] Medici ne Future Scheduled 2021-04-[address] [facility] Test 13:40:02 (procedure) [code = Medicine 324233277] Future Scheduled 2021-04-04 Human immunodeficiency B [facility] Test 13:40:02 virus screening Medicine (procedure) [code = 437284605] Future Scheduled 2021-04-04 Screening for malignant [facility] Test 13:40:02 neoplasm of cervix Medicine (procedure) [code = 367446988] Future Scheduled 2021-04-04 ZOSTER VACCINE (1 of 2) [facility] Test 13:40:02 [code = ZOSTER VACCINE (1 Me dicine of 2)] Future Scheduled 2021-04-04 FLU VACCINE > 6 MONTHS B [facility] Test 13:40:02 [code = FLU VACCINE > 6 Medi cine MONTHS] Future Scheduled 2021-04-04 COVID-19 Vaccine (2 - Ba [facility] Test 13:40:02 Pfizer 3-dose series) Medici ne [code = COVID-19 Vaccine (2 - Pfizer 3-dose series)] Future Scheduled 2021-04-04 Screening for malignant [facility] Test 13:40:02 neoplasm of colon Medicine (procedure) [code = 194471694] Future Scheduled 2021-04-04 Screening for malignant [facility] Test 13:40:02 neoplasm of breast Medicine (procedure) [code = 245780459] Future Scheduled 2021-04-04 TETANUS SHOT (ADULT) [facility] Test 13:40:02 [code = TETANUS SHOT Medicin e (ADULT)] Future Scheduled 2021-04-04 BMI FOLLOW UP PLAN [code [facility] Test 13:40:02 = BMI FOLLOW UP PLAN] Medici ne Future Scheduled 2021-04-[address] [facility] Test 13:40:02 (procedure) [code = Medicine 355385652] Future Scheduled 2021-04-04 Human immunodeficiency B [facility] Test 13:40:02 virus screening Medicine (procedure) [code = 478844424] Future Scheduled 2021-04-04 Screening for malignant [facility] Test 13:40:02 neoplasm of cervix Medicine (procedure) [code = 483147571] Future Scheduled 2021-04-04 ZOSTER VACCINE (1 of 2) [facility] Test 13:40:02 [code = ZOSTER VACCINE (1 Me dicine of 2)] Future Scheduled 2021-04-04 FLU VACCINE > 6 MONTHS B [facility] Test 13:40:02 [code = FLU VACCINE > 6 Medi cine MONTHS] Future Scheduled 2021-04-04 COVID-19 Vaccine (2 - Ba [facility] Test 13:40:02 Pfizer 3-dose series) Medici ne [code = COVID-19 Vaccine (2 - Pfizer 3-dose series)] Future Scheduled 2021-01-25 Screening for malignant [facility] Test 09:15:59 neoplasm of colon Medicine (procedure) [code = 515507679] Future Scheduled 2021-01-25 Screening for malignant [facility] Test 09:15:59 neoplasm of breast Medicine (procedure) [code = 054045996] Future Scheduled 2021-01-25 TETANUS SHOT (ADULT) [facility] Test 09:15:59 [code = TETANUS SHOT Medicin e (ADULT)] Future Scheduled 2021-01-[address] [facility] Test 09:15:59 (procedure) [code = Medicine 310758779] Future Scheduled 2021-01-25 Human immunodeficiency B [facility] Test 09:15:59 virus screening Medicine (procedure) [code = 093145931] Future Scheduled 2021-01-25 Screening for malignant [facility] Test 09:15:59 neoplasm of cervix Medicine (procedure) [code = 200321652] Future Scheduled 2021-01-25 ZOSTER VACCINE (1 of 2) [facility] Test 09:15:59 [code = ZOSTER VACCINE (1 Me dicine of 2)] Future Scheduled 2021-01-25 FLU VACCINE > 6 MONTHS B [facility] Test 09:15:59 [code = FLU VACCINE > 6 Medi cine MONTHS] Future Scheduled 2021-01-25 COVID-19 Vaccine (2 - Ba [facility] of Test 09:15:59 Pfizer 2-dose series) Medici ne [code = COVID-19 Vaccine (2 - Pfizer 2-dose series)] Future Scheduled COVID-19 VACCINE (1) [facility] [code = COVID-19 VACCINE Hos pital (1)] Future Scheduled Hepatitis C screening [facility] (procedure) [code = Hospital 441378852] Future Scheduled Screening for malignant [facility] neoplasm of cervix Hospital (procedure) [code = 533853222] Future Scheduled BREAST CANCER SCREENING [facility] [code = BREAST CANCER Hospit al SCREENING] Future Scheduled COLONOSCOPY SCREENING [facility] [code = COLONOSCOPY Hospital SCREENING] Future Scheduled SHINGLES VACCINES (#1) [facility] [code = SHINGLES VACCINES Ho spital (#1)] Future Scheduled INFLUENZA VACCINE [code = [facility] INFLUENZA VACCINE] Hospital Encounters Start End Encounter Admission Attending Care Care Encounter Source Date/Time Date/Time Type Type Clinicians Facility Department ID 2021-09-11 Inpatient ALEJANDRO [facility] Surgery [id number] [facility] 10:44:45 2021-10-14 2021-10-14 Outpatient [facility] [id number] [facility] 00:00:00 00:00:00 2021-09-20 2021-09-20 Outpatient [facility] [id number] [facility] 13:50:46 23:59:00 2021-09-17 2021-09-17 Outpatient GREGORY [facility] [id number] [facility] 12:47:54 13:23:39 June Medicin e 2021-08-27 2021-08-27 [facility].2[facility]114 [id number] [facility] 08:46:50 11:11:12 Visit Purvi 350.1.13.21 Co llege 0.2.7.2.686 of 117.8426211 Medi renea 510 e 2021-08-13 2021-08-15 [id number]:37[facility]00 [facility] 2021-08-13 2021-08-13 Office GREGORY [facility] 1.2.840.114 [id number] [facility] 07:25:12 09:53:42 Visit Purvi 350.1.13.21 Co llege 0.2.7.2.686 of 485.1734381 Medi renea 510 e 2021-07-16 2021-07-16 Outpatient [facility] [id number] [facility] 08:53:05 23:59:00 Colleg e of Medicin e 2021-06-27 2021-06-27 Office ADINA FRAZIER 1.2.840.114 [id number] [facility] 13:13:17 16:06:41 Visit MANREET AMBULATOR 350.1.13.21 College Y 0.2.7.2.686 of [id number] Medi renea 325 e 2021-06-11 2021-06-11 Out[facility] [id number] [facility] 14:50:55 15:38:46 Colleg e of Medicin e 2021-05-20 2021-05-20 [facility] [id number] [facility] 08:32:32 23:59:00 Colleg e of Medicin e 2021-05-17 2021-05-19 Inpatient ER [facility] Med [id number] [facility] 05:35:00 16:42:00 AHMED 2021-05-17 2021-05-17 [facility] [id number] [facility] 00:00:00 23:59:00 Colleg e of Medicin e 2021-04-22 2021-04-22 Outpatient [facility] [id number] [facility] 08:34:02 23:59:00 Colleg e of Medicin e 2021-04-08 2021-04-08 Outpatient [facility] [id number] [facility] 08:22:34 23:59:00 Colleg e of Medicin e 2021-03-29 2021-03-29 Office KIM Frazier 1.2.840.114 [id number] [facility] 11:00:00 13:34:50 Visit Manreet AMBULATOR 350.1.13.21 College Y 0.2.7.2.686 of 062.6224443 Medi renea 325 e 2021-03-01 2021-03-01 Office ADINA Frazier 1.2.840.114 [id number] [facility] 09:00:00 11:07:59 Visit Manreet AMBULATOR 350.1.13.21 College Y 0.2.7.2.686 of [id number] [facility] 325 e 2021-02-03 2021-02-06 Inpatient ER PAULO BRISCOE [facility] [id number] [facility] 05:14:00 16:07:00 OBINNA 2021-01-25 2021-01-25 Office ADINA FRAZIER 1.2.840.[id number] [place] [address] 00:00:00 19:54:04 Visit MANREET AMBULATOR 350.1.13.21 College Y 0.2.7.2.686 of [id number] [facility] 325 e 2020-09-12 2020-09-12 Toby Clemons 1.2.840.1 [id number] [facility] 00:00:00 00:00:[address] 3.430.2.7 Hospit a .3.117853 l .8 2020-06-11 2020-06-11 Toby Clemons 1.2.840.1 [id number] 6207 [facility] 00:00:00 00:00:[address]17[address]1.[address] 3.430.2.7 Hospit a .3.767645 l .8 2020-03-12 2020-03-12 Javier Kelly 1.2.840.1 [id number] 2100 657674 [facility]i 00:00:00 00:00:[address] 3.430.2.7 Hospit a .3.307144 l .8 Results Test Description Test Time Test Comments Results Result [facility] e Comments MR, ENTEROGRAPHY, 2021-07-19 Unlisted ABDOMEN / PELVIS, 0 Reason for WITHOUT / WITH IV 16:25:00 Exam - Click [facility] Yes and Enter [facility] Rosamaria NOVOA : Below->No 1955 Sex: F FINAL REPORT [...] thickening, possibly chronic cholecystitis. Signed: Christopher Vega Verified Date/Time: 08/15/2021 16:25:49 Reading Location: [facility] C013Y CT Body Reading Room C METABOLIC [...] NOT 1092) ACCURATE CRE ATININE CLEARANCE IN LA EDICTING GLOMERULAR FILT RATION RATE. ESTIMATED GFR IS NOT APPLICABLE FOR DIALYSIS PATIENTS. Bushel Worker ID - [id number] 06:25:19 Test Item Value Reference Range Interpretation Comments MAGNESIUM (BEAKER) (test code = 2.5 mg/dL 1.6-2.6 627) Bushel Worker ID - [id number] 06:25:19 Test Item Value Reference Range Interpretation Comments PHOSPHORUS (BEAKER) (test code = 2.7 mg/dL 2.3-4.7 604) Bushel Worker ID - BSCBC W/PLT COUNT & AUTO [id number] 05:50:37 Test Item Value Reference Range Interpretation [...] 0-1 PERCENT (BEAKER) (test code = 2801) [id number] 14:14:38 Test Item Value Reference Range Interpretation Comments TRIGLYCERIDES (BEAKER) (test code = 163 mg/dL 540) TRIGLYCERIDE REFERENCE RANGELow Risk <150Borderline Risk 150-199High Risk 200-499Very High Risk >=500Operator ID - MOSARS-COV2/RT-PCR ([facility])2021-08-14 09:57:59 Test Item Value Reference Range Interpretation Comments SARS-COV2/RT-PCR (test Negative Not Detected, Negative, code = 2498204) See external report for linked test SARS-COV-2 PERFORMING LAB [facility] TAWNY (test code = 6554511) Negative result for this test determines that [...] of the Act.Fact Sheet for Healthcare Prov iders:https://www.[employer]/sites/default/files/product/documents/Fact_Sheet_HC _Ytrllwhpk_Ubyp_RFYF-JdK-7.pdfFact Sheet for Healthcare Patients:https://www.[employer]/sites/default/files/product/docume nts/Jmxg_Wfopu_Ltovxcfe_Sele_ZREQ-LeT-4.pdfPerforming Laboratory:[address].[place], [place] [address]VVGW-HGTLBBO METER 2021-08-14 06:10:11 Test Item Value Reference Range Interpretation Comments POC-GLUCOSE METER 119 mg/dL 70-110 H : Notified RN/: (SCOOTER) (test code = TESTED AT [place] [address] 1538) [facility], [address]: Bushel Worker/Techni benjamin ID = [id number] for SYLVIA BARDALES POCT-GLUCOSE [id number] 00:23:47 Test Item Value Reference Range Interpretation Comments POC-GLUCOSE METER 178 mg/dL 70-110 H : Notified RN/: (SCOOTER) (test code = TESTED AT [facility] 67 1538) [facility], [address]: Bushel Worker/Techni benjamin ID = [id number] for SYLVIA BARDALES COMPREHENSIVE METABOLIC [id number] 19:13:46 Test Item Value Reference Range Interpretation [...] S NOT APPLICABLE FOR DIALYSIS PATIEN TS. Bushel Worker ID - BSPROTHROMBIN TIME/[id number] 19:02:27 Test Item Value Reference Range Interpretation Comments PROTIME (BEAKER) 12.3 seconds 11.9-14.2 (test code = 759) INR (BEAKER) (test 0.93 See_Comment [Automat ed message] code = 370) The system [employer] generated this result transmitted ref erence range: <=5.90. The reference range was not used to int erpret this result as normal/abnormal . RECOMMENDED COUMADIN/WARFARIN INR THERAPY RANGESSTANDARD DOSE: 2.0 - 3.0 Includes: PROPHYLAXIS for venous thrombosis, systemic embolization; TREATMENT for venous thrombosis and/or pulmonary embolus.HIGH RISK: Target INR is 2.5-3.5 for patients with mechanical heart valves.CBC W/PLT COUNT & AUTO [id number] 18:51:23 Test Item Value Reference Range Interpretation [...] = 2801) RAD, CHEST, 1 VIEW, NON [id number] 18:27:00Reason for exam:->post picc line insertionShould this be performed at the bedside?->Yes [facility] 1955 Sex: FFINAL [...] Thelma Quiros MDReport Verified Date/Time: 08/13/2021 18:27:07 BASIC METABOLIC [id number] 05:35:09 Test Item Value Reference Range Interpretation [...] S NOT APPLICABLE FOR DIALYSIS PATIEN TS. Bushel Worker ID - PIAYA LLACTIC ACID, [id number] 05:11:20 Test Item Value Reference Range Interpretation Comments LACTATE BLOOD VENOUS (2) (BEAKER) 2.49 mmol/L 0.50-2.20 H (test code = 2872) Bushel Worker ID - DBCBC W/PLT COUNT & AUTO [id number] 05:00:57 Test Item Value Reference Range Interpretation [...] 0-1 PERCENT (BEAKER) (test code = 2801) [id number] 06:40:18 Test Item Value Reference Range Interpretation Comments PHOSPHORUS (BEAKER) 3.3 mg/dL 2.3-4.7 Specimen slightly (test code = 604) hemolyzed Bushel Worker ID - DBBASIC METABOLIC [id number] 06:40:18 Test Item Value Reference Range Interpretation [...] S NOT APPLICABLE FOR DIALYSIS PATIEN TS. Bushel Worker ID - [id number] 06:40:17 Test Item Value Reference Range Interpretation Comments MAGNESIUM (BEAKER) 1.9 mg/dL 1.6-2.6 Specimen slightly (test code = 627) hemolyzed Bushel Worker ID - DBCBC (HEMOGRAM ONLY)2021-05-18 05:39:35 Test [...] 0-0 (BEAKER) (test code = 413) SARS-COV2/RT-PCR ([facility])2021-05-17 14:30:52 Test Item Value Reference Range Interpretation Comments SARS-COV2/RT-PCR (test Negative Not Detected, Negative, code = 7980957) See external report for linked test SARS-COV-2 PERFORMING LAB [facility] TAWNY (test code = 5344244) Negative result for this test determines that [...] of the Act.Fact Sheet for Healthcare Prov iders:https://www.[employer].com/sites/default/files/product/documents/Fact_Sheet_HC _Fnlhoaqln_Dxmv_EPTY-XqU-4.pdfFact Sheet for Healthcare Patients:https://www.[employer].com/sites/default/files/product/docume nts/Xpan_Lzcog_Efsbkykk_Trgs_CLGK-QoA-7.pdfPerforming Laboratory:[facility], [place] [address]MOS, CHEST, 1 VIEW, NON [id number] 11:04:00Reason for exam:->new admission with possible entero- enteric fistulaShould this be performed at the bedside?->Yes [facility] 1955 Sex: [...] Becerril Verified Date/Time: 05/17/2021 11:04:57 Reading Location: [facility] Radiology Reading Room RAD, ABDOMEN/KUB, 1 VIEW [id number] 10:21:00Reason for exam:->concern for small bowel obstructionShould this be performed at the bedside?->Yes [facility] 1955 Sex: [...] partial small bowel obstruction. Signed: John Becerril MDReptexas county [facility] Verified Date/Time: 05/17/2021 10:21:20 Reading Location: [facility] Radiology Reading Room [id number] 09:42:25 Test Item Value Reference Range Interpretation Comments PHOSPHORUS (BEAKER) (test code = 2.6 mg/dL 2.3-4.7 604) Bushel Worker ID - DBBASIC METABOLIC [id number] 09:42:24 Test Item Value Reference Range Interpretation [...] S NOT APPLICABLE FOR DIALYSIS PATIEN TS. Bushel Worker ID - [id number] 09:42:24 Test Item Value Reference Range Interpretation Comments MAGNESIUM (BEAKER) (test code = 1.9 mg/dL 1.6-2.6 627) Bushel Worker ID - DBPROTHROMBIN [id number] 09:28:59 Test Item Value Reference Range Interpretation Comments PROTIME (BEAKER) 12.9 seconds 11.9-14.2 (test code = 759) INR (BEAKER) (test 0.99 See_Comment [Automat ed message] code = 370) The system [employer] generated this result transmitted ref erence range: [...] (BEAKER) (test code = 413) HEPATITIS B [id number] 20:49:20 Test Item Value Reference Range Interpretation Comments HEPATITIS B CORE TOTAL ANTIBODY Nonreactive Nonreactive (BEAKER) (test code = 497) HEPATITIS B SURFACE ANTIBODY < mIU/mL <8.0 (BEAKER) (test code = 647) HEPATITIS B SURFACE ANTIGEN (2) Nonreactive Nonreactive (BEAKER) (test code = 2585) Bushel Worker ID - BSOperator ID - BSVITAMIN D, [id number] 18:58:29 Test Item Value Reference Range Interpretation Comments VITAMIN D 25-OH (BEAKER) (test 48.0 ng/mL 6.6-49.9 code = 2764) Effective 11/26/2016: Reference Range ChangeNew: 6.6-49.9 ng/mL Previous: 13.0- 47.8 ng/mLRecommendedVitamin D Target Range: 30.0-40.0 ng/mLOperator ID - BSC. DIFFICILE GDH [id number] 13:19:34 Test Item Value Reference Range Interpretation Comments CDT TOXIN (test code Negative Negative = 0799830049) CDT GDH ANTIGEN (test Negative Negative No ind ication of code = 1095201646) Clostridi um difficile infection and n o colonization. Discontinue ent christopher isolation and t herapy. Testing performed by [employer] Rapid Cassette Assay. For GDH, published sensitivity of the assay is 98.7% compared to cytotoxicity testing. For Toxin AB, published sensitivity is 87.8% and specificity 99.4% compared to cytotoxicity testing.Verification of kit performance was done by the [facility] Microbiology[facility] prior to clinical use.BASIC METABOLIC [id number] 05:52:32 Test Item Value Reference Range Interpretation [...] S NOT APPLICABLE FOR DIALYSIS PATIEN TS. Bushel Worker ID - PIAYA LCBC (HEMOGRAM ONLY)2021-02-06 05:38:48 [...] (BEAKER) (test code = 413) BASIC METABOLIC [id number] 05:38:29 Test Item Value Reference Range Interpretation [...] S NOT APPLICABLE FOR DIALYSIS PATIEN TS. Bushel Worker AMADA - DEANNA PRETTY-REACTIVE [id number] 05:38:29 Test Item Value Reference Range Interpretation Comments C-REACTIVE PROTEIN (BEAKER) (test 3.86 mg/dL 0.00-0.50 H code = 676) Bushel Worker AMADA - DEANNA PRETTYBC (HEMOGRAM ONLY)2021-02-05 05:28:27 Test Item Value Reference [...] 0-0 (BEAKER) (test code = 413) CT, [id number] 16:56:00Unlisted Reason for Exam - Click Yes and Enter Reason Below->NoIs this for enterography?->NoWill this procedure require oral contrast?->No [facility] 1955 Sex: FFINAL [...] MDReport Verified Date/Time: 02/04/2021 16:56:27 Reading Location: [facility] Diagnostic Imaging Reading Room - [place] [address] VITAMIN B12 AND [id number] 07:14:11 Test Item Value Reference Range Interpretation Comments VITAMIN B12 187 pg/mL 213-816 L (BEAKER) (test code = 774) FOLATE (BEAKER) 18.90 ng/mL See_Comment [Automated message] (test code = 362) The system which generated this result transmitted ref erence range: >=7.00. The reference range was not used to interpr et this result as normal/abnormal . Bushel Worker ID - LIDA [id number] 07:14:10 Test Item Value Reference Range Interpretation Comments FERRITIN (BEAKER) (test code = 110.79 ng/mL 5.00-275.00 361) Bushel Worker ID - LIDA FIRON, TIBC, % SAT. (WITHOUT FERRITIN)2021-02-04 06:55:40 Test Item Value Reference Range Interpretation Comments IRON (BEAKER) (test code = 547) 75.0 ug/dL 40.0-160.0 TOTAL IRON BINDING CAPACITY 258 ug/dL 250-450 (BEAKER) (test code = 769) IRON % SATURATION (2) (BEAKER) 29 % 20-55 (test code = 2590) Bushel Worker ID Kimberlee HILTON FHEPATIC FUNCTION [id number] 16:57:11 Test Item Value Reference Range Interpretation [...] Specimen slightly (test code = 347) hemolyzed Bushel Worker ID Kimberlee PERAZA LHEMOGLOBIN [id number] 12:28:44 Test Item Value Reference Range Interpretation Comments HEMOGLOBIN A1C (BEAKER) (test code = 5.3 % 4.3-6.1 368) [id number] 09:47:42 Test Item Value Reference Range Interpretation Comments PHOSPHORUS (BEAKER) 3.5 mg/dL 2.3-4.7 Specimen slightly (test code = 604) hemolyzed Bushel Worker ID - KARMEN LBASIC METABOLIC [id number] 09:47:42 Test Item Value Reference Range Interpretation [...] S NOT APPLICABLE FOR DIALYSIS PATIEN TS. Bushel Worker ID - KARMEN [id number] 09:47:41 Test Item Value Reference Range Interpretation Comments MAGNESIUM (BEAKER) 2.2 mg/dL 1.6-2.6 Specimen slightly (test code = 627) hemolyzed Bushel Worker ID - AKRMEN LC-REACTIVE [id number] 09:45:23 Test Item Value Reference Range Interpretation Comments C-REACTIVE PROTEIN (BEAKER) (test 3.67 mg/dL 0.00-0.50 H code = 676) Bushel Worker ID - KARMEN LCBC W/PLT COUNT & AUTO [id number] 09:23:38 Test Item Value Reference Range Interpretation [...] code = 2801) RAD, ABDOMEN/KUB, 1 VIEW [id number] 07:28:00Reason for exam:->NGT tube placementShould this be performed at the bedside?->Yes [facility] 1955 Sex: FFINAL REPORT RAD, ABDOMEN/KUB, 1 VIEW AP INDICATION: NGT tube placement COMPARISON: NoneTECHNIQUE: Limited portable radiograph of the lower chest and upper abdomen was acquired for purposes of evaluating tube placement FINDINGS/IMPRESSION:NG side-port overlies the stomach Signed: Rory Quiroga Verified Date/Time: 02/03/2021 07:28:00
[2021-09-26] MEDS ORDERED: MORPHINE 4 MG/ML SYR ONE (08:15)
[2021-09-26] MEDS ORDERED: ONDANSETRON 4 MG/2 ML VIAL ONE (08:16)
--- NOTE | 2021-09-26 08:47 | RAD REPORT ---
EXAM DESCRIPTION: CTAbdomen Pelvis W Contrast - 09/26/2021 8:22 am CLINICAL HISTORY: Abdominal pain, acute, nonlocalized COMPARISON: Abdomen Pelvis W Contrast dated 09/12/2021; Abdomen Pelvis W Contrast dated 08/30/2021 ; Abdomen Pelvis W Contrast dated 08/04/2021; Abdomen Pelvis W Contrast dated 06/04/2021; Chest Abd Pelvis Wo Con dated 09/17/2021 TECHNIQUE: CT of the abdomen and pelvis was performed with contrast. All CT scans are performed using dose optimization technique as appropriate and may include automated exposure control or mA/KV adjustment according to patient size. FINDINGS: Lower chest: Mild bilateral lower lobe nodularity. Mild circumferential thickened distal e sophagus. Liver: No acute abnormality or suspicious lesions. Biliary: No biliary ductal dilatation. Stomach: No significant focal abnormality. Duodenum: No significant focal abnormality. Pancreas: No significant abnormality. Spleen: No significant abnormality. Adrenal: No suspicious lesions. Kidney/ureter: No hydronephrosis. No renal calculi. Renal cysts. Retroperitoneum: No retroperitoneal adenopathy. Vascular: No aneurysm. Bowel: Tethering of the small bowel in the right lower quadrant is noted. Mild inflammatory changes a re present at the terminal ileum. 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 Diverticulosis without diverticuli tis. Peritoneum: No ascites or free air. Periumbilical hernia. Bladder: Grossly unremarkable. Reproductive: No adnexal masses. Endometrial fluid versus thickening. This is unchanged. Bones: No acute fracture. Other: n/a IMPRESSION: Thickening and hyperenhancement of the terminal ileum suggesting mild Crohn's exacerbati on. 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 No bowel obstruction though a distal small bowel stricture has been previo usly identified.
[2021-09-26 08:58] LABS: Absolute Lymphocytes (CBC) 2.3 K/uL (0.7-4.9); Hematocrit 33.9 % (36.0-45.0); Lymphocytes % 11.7 % (15.3-44.8); MCV 80.7 fL (80-100); MPV 7.5 fL (7.6-11.3)
[2021-09-26 09:03] LABS: Bilirubin Total 0.6 mg/dL (0.2-1.0); Potassium 4.1 mmol/L (3.5-5.1); Protein, Total 7.2 g/dL (6.4-8.2)
[2021-09-26] MEDS ORDERED: NA CHLORIDE 0.9% 1,000 ML ONE (09:03)
--- NOTE | 2021-09-26 09:41 | EDPHYS ---
Physician Documentation [facility] Name: Kindra Novoa Age: 66 yrs Sex: Female : 1955 Arrival Date: 09/26/2021 Time: 07:49 Bed 8 Private MD: Moriah Vasquez ED Physician Patric Rossi HPI: 09/26 08:02 This 66 yrs old Female presents to ER via Unassigned with complaints of ms3 Abdominal Pain. 08:02 The patient presents with abdominal pain that is diffuse. Onset: The symptoms/episode ms3 began/occurred yesterday. The symptoms do not radiate. Associated signs and symptoms: none. The symptoms are described as achy. Modifying factors: The symptoms are alleviated by nothing, the symptoms are aggravated by nothing. Severity of pain: At its worst the pain was severe in the emergency department the pain is unchanged is a 10 / 10. 66 yo female with pmh of Crohn's disease presents for abdominal pain that recurred yesterday. Patient states her pain is a 10/10 and aching. Patient denies alleviating or inciting factors. Patient denies fever, chills, nausea, or vomiting.. Historical: - Allergies: 07:55 Ciprofloxacin; tw2 07:55 Flagyl; tw2 07:55 Latex, Natural Rubber; tw2 - Home Meds: 07:55 atorvastatin 10 mg Oral tab [Active]; bupropion HCl 150 mg Oral tab 2 times per day tw2 [Active]; cetirizine 10 mg Oral cap [Active]; hyoscyamine sulfate 0.125 mg Oral tab [Active]; levothyroxine 25 mcg cap [Active]; lisinopril 5 mg Oral tab [Active]; metoprolol tartrate 50 mg Oral tab 2 times per day [Active]; [place] 5-325 mg Oral tab 1 tab every 6 hours [Active]; ondansetron HCl 4 mg Oral tab [Active]; pantoprazole 40 mg Oral TbEC once daily [Active]; sertraline 200mg Oral tab nightly [Active]; - PMHx: 07:55 bowel obstruction; Colitis; Crohn's Disease; Depression; Hypertension; Hypothyroidism; tw2 Insulin Resistance; - Immunization history:: Adult Immunizations. - Social history:: Smoking status: . ROS: 08:02 Constitutional: Negative for fever, and chills. Neck: Negative for injury, pain, and ms3 swelling, Cardiovascular: Negative for chest pain, and palpitations. Respiratory: Negative for shortness of breath, cough, wheezing, and pleuritic chest pain. 08:02 MS/Extremity: Negative for injury and deformity, Skin: Negative for injury, rash, and discoloration. 08:02 Abdomen/GI: Positive for abdominal pain, Negative for nausea, vomiting, and diarrhea. 08:02 All other systems are negative. Exam: 08:02 Constitutional: This is a well developed, well nourished patient who is awake, alert, ms3 and in no acute distress. Chest/axilla: Normal chest wall appearance and motion. Nontender with no deformity. Cardiovascular: Regular rate and rhythm with a normal S1 and S2. No gallops, murmurs, or rubs. Normal PMI, no JVD. No pulse deficits. Respiratory: Lungs have equal breath sounds bilaterally, clear to auscultation and percussion. No rales, rhonchi or wheezes noted. No increased work of breathing, no retractions or nasal flaring. 08:02 Abdomen/GI: Inspection: Bowel sounds: normal, Palpation: moderate abdominal tenderness, in all quadrants. Vital Signs: 07:55 BP 108 / 74; Pulse 105; Resp 18 S; Temp 98.4; Pulse Ox 93% on R/A; iw 08:20 Pulse Ox 91% on R/A; tw2 08:40 BP 86 / 58 LL; Pulse 81; Resp 16; Pulse Ox 96% on 1 lpm NC; Pain 6/10; tw2 09:20 BP 88 / 58; Pulse 72; Resp 17; Pulse Ox 98% on 1 lpm NC; tw2 09:41 BP 112 / 55; Pulse 74; Resp 17; Pulse Ox 97% on R/A; tw2 10:35 BP 106 / 52; Pulse 69; Resp 17; Pulse Ox 100% on 1 lpm NC; tw2 11:30 BP 106 / 47; Pulse 70; Resp 17; Pulse Ox 96% on 1 lpm NC; tw2 12:26 BP 100 / 48; Pulse 66; Resp 17; Pulse Ox 95% on 1 lpm NC; tw2 08:20 pt encouraged to take deep breaths. pts spouse states "she always holds her breath or tw2 takes those shallow breaths i have to remind her to breathe". pt placed on 2L nc at this time. will continue to monitor MDM: 08:00 Patient medically screened. ms3 09:40 Differential diagnosis: bowel obstruction, diverticulitis, gastritis, gastroesophageal ms3 reflux disease, non-specific abd pain, pancreatitis, Peptic Ulcer Disease, Perf. Duodenal Ulcer, Perf. Gastric Ulcer. Data reviewed: vital signs, nurses notes, lab test result(s), radiologic studies, and as a result, I will admit patient. Counseling: I had a detailed discussion with the patient and/or guardian regarding: the historical points, exam findings, and any diagnostic results supporting the discharge/admit diagnosis, lab results, radiology results, the need for further work-up and treatment in the hospital. ED course: Discussed case with Dr Oliveira. He accepts patient as observation. Will give 100 mg Hydrocortisone as patient is steroid dependent with low BP. No source of infection is identified at this time.. 09/26 08:01 Order name: CBC with Diff; Complete Time: 09:33 ms3 09/26 08:01 Order name: CMP; Complete Time: 09:33 ms3 09/26 08:01 Order name: Lipase; Complete Time: 09:33 ms3 09/26 08:01 Order name: Urine Microscopic Only ms3 09/26 09:48 Order name: CBC with Automated Diff EDMS 09/26 09:48 Order name: CBC with Automated Diff EDMS 09/26 08:01 Order name: CT Abd/Pelvis - IV Contrast Only; Complete Time: 08:48 ms3 09/26 09:48 Order name: Comprehensive Metabolic Panel EDLA 09/26 09:48 Order name: Comprehensive Metabolic Panel EDLA 09/26 09:48 Order name: Lipid Profile EDMS 09/26 09:48 Order name: Lipid Profile EDMS 09/26 09:50 Order name: SARS RAPID eb 09/26 10:34 Order name: Urine Dipstick-Ancillary EDMS 09/26 12:43 Order name: SARS-COV-2 Antigen Rapid EDLA 09/26 08:01 Order name: IV Saline Lock; Complete Time: 08:05 ms3 09/26 08:01 Order name: Labs collected and sent; Complete Time: 08:15 ms3 09/26 08:01 Order name: Urine Dipstick-Ancillary (obtain specimen); Complete Time: 10:33 ms3 09/26 09:48 Order name: CONS Physician Consult EDMS 09/26 09:48 Order name: CONS Physician Consult EDMS 09/26 09:48 Order name: NPO EDMS Administered Medications: 08:09 Drug: Zofran (Ondansetron) 4 mg Route: IVP; Site: left antecubital; tw2 08:54 Follow up: Response: No adverse reaction tw2 08:11 Drug: morphine 4 mg {Note: RASS 0.} Route: IVP; Infused Over: 4 mins; Site: left tw2 antecubital; 08:54 Follow up: Response: No adverse reaction; Pain is decreased; RASS: Alert and Calm (0) tw2 09:01 Drug: NS 0.9% 1000 ml Route: IV; Rate: 1000 ml; Site: left antecubital; tw2 10:30 Follow up: Response: No adverse reaction; IV Status: Completed infusion; IV Intake: tw2 1000ml 09:50 Drug: HydroCORTISONE 100 mg Route: IVP; Site: left antecubital; tw2 10:29 Follow up: Response: No adverse reaction tw2 Disposition Summary: 09/26/21 09:40 Hospitalization Ordered Hospitalization Status: Observation ms3 Provider: Leon Oliveira ms3 Condition: Stable ms3 Problem: new ms3 Symptoms: have improved ms3 Bed/Room Type: Standard ms3 Location: [facility](09/26/21 12:11) dw Room Assignment: [facility](09/26/21 12:11) Diagnosis - Crohn's disease, unspecified, without complications ms3 - Abdominal pain, Generalized ms3 Forms: - Medication Reconciliation Form ms3 - SBAR form ms3 Signatures: Dispatcher [employer] EDTracy Holcomb RN RN dw Kait Ryan RN RN tw2 Patric Rossi DO DO ms3 Corrections: (The following items were deleted from the chart) 12: 09:40 Telemetry/MedSurg (observation) ms3 dw 12: 09:40 ms3 dw
--- NOTE | 2021-09-26 09:41 | ER ---
Nurse's Notes [facility] Name: Kindra Novoa Age: 66 yrs Sex: Female : 1955 Arrival Date: 09/26/2021 Time: 07:49 Bed 8 Private MD: Moriah Vasquez Diagnosis: Crohn's disease, unspecified, without complications;Abdominal pain, Generalized Presentation: 09/26 07:55 Chief complaint: Patient states: abd pain since last night, hx of bowel obstruction and iw Crohns disease, no vomiting. Coronavirus screen: At this time, the client does not indicate any symptoms associated with coronavirus-19. Ebola Screen: Patient negative for fever greater than or equal to 101.5 degrees Fahrenheit, and additional compatible Ebola Virus Disease symptoms Patient denies exposure to infectious person. Patient denies travel to an Ebola-affected area in the 21 days before illness onset. No symptoms or risks identified at this time. Initial Sepsis Screen: Does the patient meet any 2 criteria? Does the patient have a suspected source of infection? No. Patient's initial sepsis screen is negative. Risk Assessment: Do you want to hurt yourself or someone else? Patient reports no desire to harm self or others. Onset of symptoms was September 26, 2021. 07:55 Method Of Arrival: Wheelchair iw 07:55 Acuity: KAROL 3 iw 07:58 Note provider at bedside at this time. tw2 Historical: - Allergies: 07:55 Ciprofloxacin; tw2 07:55 Flagyl; tw2 07:55 Latex, Natural Rubber; tw2 - Home Meds: 07:55 atorvastatin 10 mg Oral tab [Active]; bupropion HCl 150 mg Oral tab 2 times per day tw2 [Active]; cetirizine 10 mg Oral cap [Active]; hyoscyamine sulfate 0.125 mg Oral tab [Active]; levothyroxine 25 mcg cap [Active]; lisinopril 5 mg Oral tab [Active]; metoprolol tartrate 50 mg Oral tab 2 times per day [Active]; [place] 5-325 mg Oral tab 1 tab every 6 hours [Active]; ondansetron HCl 4 mg Oral tab [Active]; pantoprazole 40 mg Oral TbEC once daily [Active]; sertraline 200mg Oral tab nightly [Active]; - PMHx: 07:55 bowel obstruction; Colitis; Crohn's Disease; Depression; Hypertension; Hypothyroidism; tw2 Insulin Resistance; - Immunization history:: Adult Immunizations. - Social history:: Smoking status: . Screenin:55 Abuse screen: Denies threats or abuse. Nutritional screening: No deficits noted. tw2 Tuberculosis screening: No symptoms or risk factors identified. Fall Risk Secondary diagnosis (15 points) impaired mobility. Assessment: 08:47 Reassessment: Patient and/or family updated on plan of care and expected duration. Pain tw2 level reassessed. Patient is alert, oriented x 3, equal unlabored respirations, skin warm/dry/pink. Patient states feeling better. 10:35 Reassessment: Patient appears in no apparent distress at this time. Patient and/or tw2 family updated on plan of care and expected duration. Pain level reassessed. Patient is alert, oriented x 3, equal unlabored respirations, skin warm/dry/pink. pt placed in hospital bed at this time for comfort. Patient states feeling better. 11:30 Reassessment: Patient appears in no apparent distress at this time. Patient and/or tw2 family updated on plan of care and expected duration. Pain level reassessed. Patient is alert, oriented x 3, equal unlabored respirations, skin warm/dry/pink. 12:27 Reassessment: Patient appears in no apparent distress at this time. Patient and/or tw2 family updated on plan of care and expected duration. Pain level reassessed. Patient is alert, oriented x 3, equal unlabored respirations, skin warm/dry/pink. Vital Signs: 07:55 BP 108 / 74; Pulse 105; Resp 18 S; Temp 98.4; Pulse Ox 93% on R/A; iw 08:20 Pulse Ox 91% on R/A; tw2 08:40 BP 86 / 58 LL; Pulse 81; Resp 16; Pulse Ox 96% on 1 lpm NC; Pain 6/10; tw2 09:20 BP 88 / 58; Pulse 72; Resp 17; Pulse Ox 98% on 1 lpm NC; tw2 09:41 BP 112 / 55; Pulse 74; Resp 17; Pulse Ox 97% on R/A; tw2 10:35 BP 106 / 52; Pulse 69; Resp 17; Pulse Ox 100% on 1 lpm NC; tw2 11:30 BP 106 / 47; Pulse 70; Resp 17; Pulse Ox 96% on 1 lpm NC; tw2 12:26 BP 100 / 48; Pulse 66; Resp 17; Pulse Ox 95% on 1 lpm NC; tw2 08:20 pt encouraged to take deep breaths. pts spouse states "she always holds her breath or tw2 takes those shallow breaths i have to remind her to breathe". pt placed on 2L nc at this time. will continue to monitor ED Course: 07:49 Patient arrived in ED. mr 07:49 Moriah Vasquez is Private Physician. mr 07:51 Patric Rossi DO is Attending Physician. ms3 07:54 Kait Ryan RN is Primary Nurse. tw2 07:55 Arm band placed on. tw2 07:55 Bed in low position. Call light in reach. Adult w/ patient. Pulse ox on. NIBP on. tw2 08:03 Triage completed. iw 08:05 Inserted saline lock: 20 gauge in left antecubital area, using aseptic technique. Blood tw2 collected. 08:24 CT Abd/Pelvis - IV Contrast Only In Process Unspecified. EDMS 09:39 Leon Oliveira MD is Hospitalizing Provider. ms3 10:35 Urine Microscopic Only Sent. tw2 12:23 SARS RAPID Sent. tw2 13:14 Report given to Zoe Harper RN. bm7 Administered Medications: 08:09 Drug: Zofran (Ondansetron) 4 mg Route: IVP; Site: left antecubital; tw2 08:54 Follow up: Response: No adverse reaction tw2 08:11 Drug: morphine 4 mg {Note: RASS 0.} Route: IVP; Infused Over: 4 mins; Site: left tw2 antecubital; 08:54 Follow up: Response: No adverse reaction; Pain is decreased; RASS: Alert and Calm (0) tw2 09:01 Drug: NS 0.9% 1000 ml Route: IV; Rate: 1000 ml; Site: left antecubital; tw2 10:30 Follow up: Response: No adverse reaction; IV Status: Completed infusion; IV Intake: tw2 1000ml 09:50 Drug: HydroCORTISONE 100 mg Route: IVP; Site: left antecubital; tw2 10:29 Follow up: Response: No adverse reaction tw2 Medication: 09:37 VIS not applicable for this client. tw2 Intake: 10:30 IV: 1000ml; Total: 1000ml. tw2 Outcome: 09:40 Decision to Hospitalize by Provider. ms3 13:14 Admitted to L \\T\\ D, accompanied by sebastien, via stretcher, room 270, with chart, Report bm7 called to CHRISTIANO Enriquez 13:14 Condition: stable 13:14 Instructed on the need for admit. 13:47 Patient left the ED. tw2 Signatures: Dispatcher [employer] EDAL Ninfa Salazar Irene, RN RN iw Kait Ryan RN RN tw2 Patric Rossi DO DO ms3 Ritu Rowell, RN RN bm7 Corrections: (The following items were deleted from the chart) 09:41 09:37 BP 88 / 58; Pulse 72bpm; Resp 17bpm; Pulse Ox 98% 1 lpm Nasal Cannula; tw2 tw2
[2021-09-26] MEDS ORDERED: ACETAMINOPHEN 500 MG TAB PO PRN (09:43)
[2021-09-26] MEDS ORDERED: HYDROCORTISONE SUC 100 MG INJ ONE (09:54)
[2021-09-26 10:34] LABS: Urine Blood Negative (Negative); Urine Glucose Negative (Negative); Urine Protein Negative (Negative)
[2021-09-26 10:55] LABS: Urine Bacteria 20-50 /HPF (<20); Urine RBC None Seen /HPF (None Seen)
[2021-09-26 12:42] LABS: SARS-CoV-2 Antigen Rapid Res Negative (Negative)
[2021-09-26] MEDS: NA CHLORIDE 0.9% 1,000 ML IV SCH ×2 (13:59→23:20)
[2021-09-26] MEDS: PIPER TAZO 3.375 GM in NA CHLORIDE 0.9% 100 ML IV SCH ×2 (14:00→21:15)
[2021-09-26] MEDS: MORPHINE 2 MG/ML SYR IV PRN (14:08)
[2021-09-26] MEDS: ONDANSETRON 4 MG/2 ML VIAL IV PRN (14:08)
[2021-09-26 15:04] VITALS: BMI 45.9
[2021-09-26] MEDS ORDERED: PIPER TAZO 3.375 GM in NA CHLORIDE 0.9% 100 ML IV SCH (17:00)
[2021-09-26] MEDS ORDERED: AA 5%/D20W/ELECTROLYTES-TPN 2,000 ML IV SCH (17:00)
[2021-09-26] MEDS: predniSONE 10 MG TAB PO SCH ×2 (21:00)
[2021-09-26] MEDS ORDERED: NA CHLORIDE 0.9% 100 ML ONE (21:12)
[2021-09-26] MEDS ORDERED: predniSONE 20 MG TAB ONE (21:19)
[2021-09-26 22:21] VITALS: O2SAT 99
[2021-09-27] MEDS: PIPER TAZO 3.375 GM in NA CHLORIDE 0.9% 100 ML IV SCH (05:26)
[2021-09-27 06:54] LABS: Albumin 2.6 g/dL (3.4-5.0); Bilirubin Total 0.3 mg/dL (0.2-1.0); Potassium 4.3 mmol/L (3.5-5.1); Protein, Total 6.5 g/dL (6.4-8.2)
[2021-09-27 06:57] LABS: Hematocrit 37.9 % (36.0-45.0); Lymphocytes % 18.8 % (15.3-44.8); MCV 82.5 fL (80-100); MPV 7.8 fL (7.6-11.3); RBC Red Blood Cell Count 4.59 M/uL (3.86-4.86)
[2021-09-27] MEDS: ONDANSETRON 4 MG/2 ML VIAL IV PRN ×2 (07:52→13:50)
[2021-09-27] MEDS: MORPHINE 2 MG/ML SYR IV PRN ×2 (07:52→13:49)
[2021-09-27] MEDS: predniSONE 10 MG TAB PO SCH (09:18)
--- NOTE | 2021-09-27 12:06 | RAD REPORT ---
EXAM DESCRIPTION: CT - Soft Tissue Neck W/Contr CLINICAL HISTORY: LAD; pain Neck pain and swelling. COMPARISON: No comparisons TECHNIQUE All CT scans are performed using dose optimization technique as appropriate and may includ e automated exposure control or mA/KV adjustment according to patient size. FINDINGS: Nasopharyngeal tissues are normal in appearance. Fossa Rosenmller are normal. Parapharyngeal fat triangles are symmetric. Tongue base structures are normal. Epiglottis and aryepiglottic folds are normal. Piriform sinuses are well aerated. The vocal cords are normal in appearance. Salivary glands are normal in appearance. Upper lung alamo are clear. Included intracranial contents are unremarkable. IMPRESSION: No pathologic neck finding is observed.
[2021-09-27 12:37] VITALS: BP 115/59; TEMP 98.3
--- NOTE | 2021-09-27 13:08 | P.HP ---
Certification for Inpatient Patient admitted to: Observation With expected LOS: <2 Midnights Patient will require the following post-hospital care: None Practitioner: I am a practitioner with admitting privileges, knowledge of patient current condition, hospital course, and medical plan of care. Services: Services provided to patient in accordance with Admission requirements found in Title 42 Section 412.3 of the Code of Federal Regulations Patient History Date of Service: 09/26/21 Reason for admission: Abd pain History of Present Illness: Pt is a 66yo who was admitted to the hospital with abdominal pain. She had a history of Crohn's disease. She has been having some abdominal discomfort so she came into the emergency room for further evaluation. In the emergency room, she had imaging studies which did not reveal any abnormalities. Patient has been on TPN awaiting surgery. At this time, she will be admitted for further treatment. Will observe for overnight and see how she does with IV steroids. She will need to go back to her baseline of prednisone 10 mg daily. She is going to have surgery October 17 for her strictures. Surgery only wants her on n.p.o. status. Allergies ciprofloxacin Allergy (Verified 08/30/21 22:33) Itching/Hives/Rash latex [Latex] Allergy (Verified 08/30/21 22:33) Itching/Hives/Rash Latex, Natural Rubber Allergy (Verified 08/30/21 22:33) Unknown metronidazole Allergy (Verified 08/30/21 22:33) Itching/Hives/Rash Home Medications: Levothyroxine Sodium 25 mcg PO [id number] 07/27/20 Sertraline [Zoloft*] 200 mg PO BEDTIME 07/27/20 buPROPion HCL [Bupropion HCl] 150 mg PO DAILY 12/10/20 Ondansetron [Zofran (Odt)*] 4 mg PO Q6H PRN #10 tab 03/08/21 Atorvastatin Calcium 10 mg PO DAILY 04/05/21 Metoprolol Succinate [Toprol Xl*] 50 mg PO BID 04/05/21 Cetirizine HCl [Zyrtec] 1 tab PO DAILY 06/05/21 Hyoscyamine Sulfate [Levsin TAB*] 0.125 tab PO Q4HP PRN 06/05/21 Pantoprazole Sodium [Protonix] 1 tab PO DAILY 06/05/21 Lisinopril [Zestril] 5 mg PO DAILY 30 Days #30 tab 08/07/21 Hydrocodone 5/APAP 325 [[place] 5/325] 1 tab PO Q6H PRN 09/26/21 - Past Medical/Surgical History Has patient received pneumonia vaccine in the past: Yes Diabetic: No -: HTN -: Prediabetes -: Hypothyroidism -: Depression -: Recurrent SBO -: GERD -: Crohn's disease -: Colitis -: Psychosocial/ Personal History: Patient is . - Family History Father Medical History: Cancer Notes: lung Cx Mother Medical History: Heart disease, GI disease Notes: chron's - Social History Smoking Status: Former smoker Alcohol use: No CD- Drugs: No Caffeine use: Yes Place of Residence: Home Review of Systems 10-point ROS is otherwise unremarkable Physical Examination - Vital Signs Temperature: 98.3 F Blood Pressure: 115/59 Pulse: 60 Respirations: 18 Pulse Ox (%): 94 - Physical Exam General: Alert, In no apparent distress, Oriented x3 HEENT: Atraumatic, PERRLA, Mucous membr. moist/pink, EOMI, Sclerae nonicteric Neck: Supple, 2+ carotid pulse no bruit, No LAD, Without JVD or thyroid abno rmality Respiratory: Clear to auscultation bilaterally, Normal air movement Cardiovascular: Regular rate/rhythm, Normal S1 S2 Gastrointestinal: Soft and benign, Tenderness Musculoskeletal: No tenderness Integumentary: No rashes Neurological: Normal gait, Normal speech, Normal strength at 5/5 x4 extr, Normal tone, Normal affect Lymphatics: No axilla or inguinal lymphadenopathy Assessment & Plan - Problems (Diagnosis) (1) Crohn's disease Current Visit: No Status: Chronic Qualifiers: Gastrointestinal tract location: small and large intestine Digestive disease complication type: unspecified complication Qualified Code(s): K50.819 - Crohn's disease of both small and large intestine with unspecified complications (2) Hypertension Current Visit: No Status: Chronic Qualifiers: Hypertension type: primary hypertension Qualified Code(s): I10 - Essential (primary) hypertension (3) Hypothyroidism Current Visit: No Status: Chronic Qualifiers: Hypothyroidism type: acquired Qualified Code(s): E03.9 - Hypothyroidism, unspecified - Plan -IV antibiotics and IV steroids x1 -Surgery and GI consultation -CBC, CMP, lipase, stool cultures -N.p.o. -TPN -Antiemetics Discharge Plan: Home Plan to discharge in: 24 Hours - Advance Directives Does patient have a Living Will: No Does patient have a Durable POA for Healthcare: No - Code Status/Comfort Care Code Status Assessed: Yes Code Status: Full Code Critical Care: No Time Spent Managing PTS Care (In Minutes): 45
--- NOTE | 2021-09-27 13:11 | P.DS ---
Discharge Date: 09/27/21 Disposition: ROUTINE DISCHARGE Discharge Condition: GOOD Reason for Admission: Abd pain - Problems (1) Crohn's disease Current Visit: No Status: Chronic Qualifiers: Gastrointestinal tract location: small and large intestine Digestive disease complication type: unspecified complication Qualified Code(s): K50.819 - Crohn's disease of both small and large intestine with unspecified complications (2) Hypertension Current Visit: No Status: Chronic Qualifiers: Hypertension type: primary hypertension Qualified Code(s): I10 - Essential (primary) hypertension (3) Hypothyroidism Current Visit: No Status: Chronic Qualifiers: Hypothyroidism type: acquired Qualified Code(s): E03.9 - Hypothyroidism, unspecified Brief History of Present Illness: Pt is a 66yo who was admitted to the hospital with abdominal pain. She had a history of Crohn's disease. She has been having some abdominal discomfort so she came into the emergency room for further evaluation. In the emergency room, she had imaging studies which did not reveal any abnormalities. Patient has been on TPN awaiting surgery. At this time, she will be admitted for further treatment. Will observe for overnight and see how she does with IV steroids. She will need to go back to her baseline of prednisone 10 mg daily. She is going to have surgery October 17 for her strictures. Surgery only wants her on n.p.o. status. Hospital Course: Patient was also complaining of some neck discomfort and we did a CT which did not reveal any abnormalities. She did have lymphadenopathy so that is why that he CT was performed. Clinically she appears to be doing back to her baseline and she is stable for discharge home. Vital Signs/Physical Exam: Temp Pulse Resp BP Pulse Ox 98.3 F 60 18 115/59 L 94 09/27/21 13:09 09/27/21 13:09 09/27/21 13:09 09/27/21 13:09 09/27/21 13:09 General: Alert, In no apparent distress, Oriented x3 Laboratory Data at Discharge: WBC 10.8 K/uL (4.3-10.9) D 09/27/21 06:03 Hgb 12.2 g/dL (12.0-15.0) 09/27/21 06:03 Hct 37.9 % (36.0-45.0) 09/27/21 06:03 Plt Count 240 K/uL (152-406) D 09/27/21 06:03 Sodium 139 mmol/L (136-145) 09/27/21 06:03 Potassium 4.3 mmol/L (3.5-5.1) 09/27/21 06:03 BUN 28 mg/dL (7-18) H 09/27/21 06:03 Creatinine 0.85 mg/dL (0.55-1.3) 09/27/21 06:03 Glucose 110 mg/dL (74-106) H 09/27/21 06:03 Total Bilirubin 0.3 mg/dL (0.2-1.0) 09/27/21 06:03 AST 14 U/L (15-37) L 09/27/21 06:03 ALT 30 U/L (12-78) 09/27/21 06:03 Alkaline Phosphatase 138 U/L (45-117) H 09/27/21 06:03 Triglycerides 166 mg/dL (<150) H 09/27/21 06:03 Cholesterol 163 mg/dL (<200) 09/27/21 06:03 HDL Cholesterol 42 mg/dL (40-60) 09/27/21 06:03 Cholesterol/HDL Ratio 3.88 09/27/21 06:03 Lipase 179 U/L (73-393) 09/26/21 08:05 Home Medications: Levothyroxine Sodium 25 mcg PO [id number] 07/27/20 Sertraline [Zoloft*] 200 mg PO BEDTIME 07/27/20 buPROPion HCL [Bupropion HCl] 150 mg PO DAILY 12/10/20 Ondansetron [Zofran (Odt)*] 4 mg PO Q6H PRN #10 tab 03/08/21 Atorvastatin Calcium 10 mg PO DAILY 04/05/21 Metoprolol Succinate [Toprol Xl*] 50 mg PO BID 04/05/21 Cetirizine HCl [Zyrtec] 1 tab PO DAILY 06/05/21 Hyoscyamine Sulfate [Levsin TAB*] 0.125 tab PO Q4HP PRN 06/05/21 Pantoprazole Sodium [Protonix] 1 tab PO DAILY 06/05/21 Lisinopril [Zestril] 5 mg PO DAILY 30 Days #30 tab 08/07/21 Hydrocodone 5/APAP 325 [[place] 5/325] 1 tab PO Q6H PRN 09/26/21 Physician Discharge Instructions: -DC IV and DC home -Follow-up with PCP in 1 to 2 weeks -Follow-up with Gastroenterology & Surgery as scheduled in 1 to 2 weeks -Please call Dr. Oliveira at [phone] if any questions regarding hospital stay -Please call nursing station at [phone] if any nursing or medication qu estions -Return to the emergency room if symptoms worsen Diet: npo Activity: Fall precautions Followup: Moriah Vasquez TMD TEACHER [Primary Care Provider] - Time spent managing pt's care (in minutes): 35
--- NOTE | 2021-09-27 15:24 | CON ---
Date of Consultation: 09/27/2021 Brief History Of Present Illness: The patient is a 66-year-old female known to me from her history o f Crohn disease at the ileocecal valve with frequent hospitalizations, recurrent partial small bowel obstructions, treated nonoperatively with pulse steroids on multiple occasions in the past. She is c urrently seeing a barrel loader who has changed her from Humira to infliximab/Remicade with decr easing steroid dose with anticipation of surgical intervention. She has been n.p.o. with a PICC line and TPN in anticipation for surgery. However, she does admit to eating over the past few days, and as such, she thinks that this is causing exacerbation of her Crohn's and she has had a recurrent flar e as her symptoms are typical for previous presentations. Her primary complaint was abdominal pain. She currently feels completely fine at this time without any pain whatsoever. Past Medical History: Significant for hypertension, diabetes, hypothyroidism, depression, recurrent small bowel obstructions, GERD, Crohn's disease. Past Surgical History: Includes . Home Medications: Include Zoloft, levothyroxine, BuSpar, Zofran, atorvastatin, Toprol, Deltasone, Zy rtec, acetaminophen, hyoscyamine, Zestril, Protonix, Augmentin, [place], and Remicade. Allergies: CIPRO, LATEX, FLAGYL, BUSPAR. Review of Systems: Ten-point review of systems other than HPI, denies. Social History: Denies smoking, alcohol, or recreational drug use. Physical Examination: At the time of my examination; General: She is awake, alert, and oriented. Psychiatric: Appropriate. Conversive. HEENT: Normocephalic. Sclerae icteric. Mucous membranes moist. Oropharynx clear. Neck: Supple without JVD. Chest: Normal expansion and excursion. Cardiovascular: Regular rate and rhythm. Pulmonary: Clear to auscultation bilaterally. Abdomen: Soft, nontender, nondistended. No rebound. No guarding. No focal peritonitis. Extremities: No clubbing, cyanosis, edema. SKIN: Warm and dry. She does have a bit more of a chronic steroid appearance with increasing adipos ity at the back of the neck consistent with a buffalo hump and [place] facies type appearance. Laboratory Data: Laboratory exam revealed a white blood cell count of 19.5 on admission, now 10.8, h emoglobin 12.2, hematocrit 37.9, platelet count is 240. Her neutrophils were 74%. Her sodium 139, p otassium 4.3, chloride 108, carbon dioxide 24, BUN 28, creatinine 0.85, glucose was 110, AST 14, ALT 30, alkaline phosphatase 138. Her UA was essentially negative with the exception of 20-50 bacteria. She had a CT scan performed of the abdomen and pelvis on 09/26/2021, officially read by Dr. Landa as t hickened and hyperenhancement of the terminal ileum suggesting mild Crohn's exacerbation, tethered sm all bowel loops in the right lower quadrant, suspected complex fistulizing process that is similar to prior. No bowel obstruction seen through the distal small bowel has been previously identified. Assessment And Plan: This is a 66-year-old female with Crohn disease with apparent Crohn's exacerbat ion. 1.N.P.O. 2.Continue medical management with pulse steroid treatment. 3.Supportive care per primary medical doctor. 4.I recommend serial exams, and as her symptoms have improved, there is no need for surgical image _ when the medical doctors feel she is appropriate for discharge, I am okay with discharging h er from surgical standpoint as she is currently being nutritionally supported by TPN via her PICC amanda e. She is instructed to follow up with her primary care doctor and diabetic management doctor as well as her surgeon who are surgical planning for the next few weeks. RODGER/ALIREZA Voice ID: [id number] Report ID: [id number]
[2021-09-27] MEDS ORDERED: AA 5%/D20W/ELECTROLYTES-TPN 2,000 ML, Lipids 20% 250 ML with MULTIVITAMINS INJ 10 ML IV SCH ×3 (17:00)
== END 2021-09-27 15:05 | disposition home or self-care (01) ==
LOC: ER 07:46 → ERHOLD 09:43 → 2ND-WC 13:14
PROVIDERS: ADMIT Hospitalist; ATTEND Hospitalist
DX: K50.819 Crohn's disease of both small and large intestine with unspecified complications (principal); I10 Essential (primary) hypertension; E03.9 Hypothyroidism, unspecified; R59.0 Localized enlarged lymph nodes; E11.9 Type 2 diabetes mellitus without complications; K21.9 Gastro-esophageal reflux disease without esophagitis; F32.A Depression, unspecified; Z20.822 Contact with and (suspected) exposure to COVID-19; Z79.899 Other long term (current) drug therapy; Z88.8 Allergy status to other drugs, medicaments and biological substances; Z88.3 Allergy status to other anti-infective agents; Z91.040 Latex allergy status; Z82.49 Family history of ischemic heart disease and other diseases of the circulatory system; Z83.79 Family history of other diseases of the digestive system; Z80.1 Family history of malignant neoplasm of trachea, bronchus and lung
CPT/HCPCS: 96361; 87088; 85025 ×2; 87086; 36415; 80061; 83690; 80053 ×2; 70491; 74177; 96375; 96374; 99285; 87811; Q9967 ×2; J2543 ×3; J7512 ×3; J2270 ×3; J7030 ×3; J1720; J2405 ×4; G0378 ×3; 81003; 81015

== ENCOUNTER 2021-10-01 17:21 | Emergency (ER) | payer OTHER ==
--- OUTSIDE RECORDS SUMMARY | 2021-10-01 17:27 | XMS REPORT | Continuity of Care Document ---
:1955 Author Organization [facility] t Address [facility] [place] [address] Care Team Providers Name Role Phone Kael MEADOWS MD, Enrique A Primary Care Physician [phone] JENKINS, MARCO Attending Clinician Unavailable JENKINS, [...] Expiration Date Blair ruth MEDICARE A B [id number] 2021 00:00:00 BCBS PPO POS EPO [id number] 2010 CHOICE 00:00:00 PPO/EPO - BCBS [id number] MEDICARE PART A [id number] \T\ B - MEDICARE CVCP-BCBS [id number] Problems Condition Condition Condition Status Onset Resolution Last Treating Co mments Source Name Details Category Date Date Treatment Clinician Date Crohn's Crohn's Disease Active 2020-02 [facility] disease disease 2-22 [facility] (HCCode) (HCCode) 00:00: of 00 Medicin e Essential Essential Disease Active Met hodi hypertensi hypertensi 8-13 st on on 00:00: Hospita 00 l Chest pain Chest pain Disease Active M ethodi 2-02 st 00:00: Hospita 00 l 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:00: Hospita 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 [...] 00 Center Latex Propensi Active Rash 2020-02 [facility] ty to 2-10 [facility] adverse 00:00: of reaction 00 Medicin s to e substanc e Latex, Propensi Active Itching [facility] Natural ty to st Rubber adverse Hospita reaction l s to drug NO KNOWN Allergy Active [facility] ALLERGIE S Family History Family Member Diagnosis Comments Start Date Stop Date Source [facility] Social History Social Habit Start Date Stop Date Quantity Comments Source History [facility] Alcohol Std Drinks Hospit al History [facility] Exposure to 2021-08-17 2021-08-27 Not sure [facility] Colleg e SARS-CoV-2 (event) 00:00:00 08:46:00 of Med icine Cigarettes smoked 2021-08-27 2021-08-27 [facility] current (pack per 00:00:00 00:00:00 of Medi day) - Reported Alcohol intake 2021-08-27 2021-08-27 .14 /d [facility] Col lege 00:00:00 00:00:00 of Medicine Tobacco use and 2021-08-27 2021-08-27 Smokeless tobacco [facility] exposure 00:00:00 00:00:00 non-user of Medicine History [facility] 2018-03-19 2018-03-19 1 [facility] Alcohol Frequency 00:00:00 00:00:00 Hospita l History of tobacco 1995-02-[address] [facility] use 00:00:00 of Medicine Sex [birth year] F [facility]lege 00:00:00 00:00:00 of Medicine Smoking Status Start Date Stop Date Source Ex-smoker 2021-08-27 00:00:00 2021-08-27 00:00:00 [facility] ollege of Medicine Never smoked tobacco [facility] Eric ege of Medicine Medications [...] e hyoscyamine 2021-0 Yes .125mg Take 0.125 [facility] (ANASPAZ, 7-12 mg by [facility]) 09:06: mouth of 0.125 MG 53 every 4 Medicin tablet hours as e needed for Cramping. metoprolol 2021-0 Yes 50mg Take 50 mg [facility] (TOPROL-XL) 7-12 by mouth Eric ege 50 MG XL 09:06: daily. of tablet 53 Medicin e hyoscyamine 2021-0 Yes .125mg Take 0.125 Ran (ANASPAZ, 7-12 mg by [facility]) 09:06: mouth of 0.125 MG 53 every [...] Take 0.125 Ran (ANASPAZ, 6-28 mg by [facility]) 08:19: mouth of 0.125 MG 36 every 4 Medicin tablet hours as e needed for Cramping. metoprolol 2021-0 Yes 50mg Take 50 mg [facility] (TOPROL-XL) 6-28 by mouth Eric ege 50 MG XL 08:19: daily. of tablet 36 Medicin e pantoprazol 2021-0 Yes 40mg Take 40 mg [facility] e 6-28 by mouth [facility] (PROTONIX) 08:19: daily. of 40 MG 36 Medicin tablet e hyoscyamine 2021-0 Yes .125mg Take 0.125 Ran (LEVSIN) 6-28 mg by [facility] 0.125 MG 08:19: mouth of tablet 36 every 4 Medicin hours as e needed for Cramping. gatifloxaci Yes 1[drp] Place 1 [facility] n (ZYMAXID) 6-28 Drop into Col lege 0.5 % 08:19: both eyes of ophthalmic 36 four times Med icin solution daily. e pantoprazol Yes 40mg Take 40 mg [facility] e 6-28 by mouth [facility] (PROTONIX) 08:19: daily. of 40 MG 36 Medicin tablet e hyoscyamine Yes .125mg Take 0.125 [facility] (ANASPAZ, 5-12 mg by [facility] LEVSIN) 14:22: mouth of 0.125 MG 31 every 4 Medicin tablet hours as e needed for Cramping. metoprolol Yes 50mg Take 50 mg [facility] (TOPROL-XL) 5-12 by mouth Eric ege 50 MG XL 14:22: daily. of tablet 31 Medicin e pantoprazol Yes 40mg Take 40 mg Ran e 5-12 by mouth [facility] (PROTONIX) 14:22: daily. of 40 MG 31 [...] Take by Sixto adams OR 03-29 mouth. [facility] 12:06: 00:00 of 07 :00 Medicin e MINERAL OIL 2021- No Take by Sixto adams OR 03-29 mouth. [facility] 12:06: 00:00 of 07 :00 Medicin e Mesalamine 2021- No Take by Milton herman (PENTASA) 03-29 mouth. [facility] 500 MG CPCR 12:04: 00:00 of 57 :00 Medicin e Mesalamine 2021- No Take by Milton herman (PENTASA) 03-29 mouth. [facility] 500 MG CPCR 12:04: 00:00 of 57 [...] Take by Ba ylor us 03-29 mouth. [facility] (ACIDOPHILU 12:03: 00:00 of S OR) 05 :00 Medicin e Cholecalcif 2021-0 Yes Take by Milton herman alex 2-11 mouth. [facility] (VITAMIN D) 11:46: of 125 MCG 58 Medicin (5000 UT) e CAPS metFORMIN 2021-0 Yes Take 1 [facility] 500 MG TB24 2-11 capsule by Co llege 11:46: mouth of 58 daily. Medicin e Cholecalcif 2021-0 Yes Take by Milton herman alex 2-11 mouth. [facility] (VITAMIN D) 11:46: of 125 MCG 58 Medicin (5000 UT) e CAPS metFORMIN 2021-0 Yes Take 1 [facility] 500 MG TB24 2-11 capsule by Co llege 11:46: mouth of 58 daily. Medicin e Cholecalcif 2021-0 Yes Take by Milton herman alex 2-11 mouth. [facility] (VITAMIN D) 11:46: of 125 MCG 58 Medicin (5000 UT) e CAPS metFORMIN 2-0 Yes Take 1 [facility] 500 MG TB24 2-11 capsule by Co llege 11:46: mouth of 58 daily. Medicin e Cholecalcif 2021-0 Yes Take by Milton herman alex 2-11 mouth. [facility] (VITAMIN D) 11:46: of 125 MCG 58 Medicin (5000 UT) e CAPS Cholecalcif Yes Take by Milton herman alex 2-11 mouth. [facility] (VITAMIN D) 11:46: of 125 MCG 58 Medicin (5000 UT) e CAPS atorvastati Yes 10mg Take 10 mg [facility] n (LIPITOR) 2-11 by mouth Eric ege 10 MG 11:46: daily. of tablet 58 Medicin e Cetirizine Yes Take 1 [facility] (ZYRTEC 2-11 Chew Tab Eric ege ALLERGY) 10 11:46: by mouth of MG CAPS 58 daily. Medicin e hyoscyamine Yes .125mg Take 0.125 [facility] (LEVSIN) 2-11 mg by Culp 0.125 MG 11:46: mouth of tablet 58 [...] 58 Medicin e Acetaminoph Yes Take by Milton herman en (TYLENOL 2-11 mouth. Colleg e CHILDRENS) 11:29: Take by of 160 MG/5ML 58 mouth q 4 Medi renea SUSP hours prn e Acetaminoph 0 Yes Take by Milton herman en (TYLENOL 2-11 mouth. Colleg e CHILDRENS) 11:29: Take by of 160 MG/5ML 58 mouth q 4 Medi renea SUSP hours prn e Acetaminoph 2021-0 Yes Take by Milton herman en (TYLENOL 2-11 mouth. Colleg e CHILDRENS) 11:29: Take by of 160 MG/5ML 58 mouth q 4 Medi renea SUSP hours prn e Acetaminoph 2021-0 Yes Take by Milton herman en (TYLENOL 2-11 mouth. Colleg e CHILDRENS) 11:29: Take by of 160 MG/5ML 58 mouth q 4 Medi renea SUSP hours prn e predniSONE 2021-0 Yes [id number] 20mg Take 1 [facility] (DELTASONE) 2-11 Tablet by Col lege 20 MG 00:00: mouth of tablet 00 daily. Medicin Taper by 5 e mg every week. predniSONE 2021-0 Yes [id number] Take 20 mg [facility] (DELTASONE) 2-11 po qd. Colleg e 5 MG tablet 00:00: Start of 00 tapering Medicin off by 5 e mg every 7 days after the 04/08/21. predniSONE 2021-0 Yes [id number] 20mg Take 1 [facility] (DELTASONE) 2-11 Tablet by Col lege 20 MG 00:00: mouth of tablet 00 daily. Medicin Taper by 5 e mg every week. predniSONE 2021-0 Yes [id number] Take 20 mg Ran (DELTASONE) 2-11 po qd. Colleg e 5 MG tablet 00:00: Start of 00 tapering Medicin off by 5 e mg every 7 days after the 04/08/21. predniSONE 2021-0 Yes [id number] 20mg Take 1 [facility] (DELTASONE) 2-11 Tablet by Col lege 20 MG 00:00: mouth of tablet 00 daily. Medicin Taper by 5 e mg every week. predniSONE 2021-0 Yes [id number] Take 20 mg [facility] (DELTASONE) 2-11 po qd. Colleg e 5 MG tablet 00:00: Start of 00 tapering Medicin off by 5 e mg every 7 days after the 04/08/21. predniSONE 2021-0 Yes [id number] 20mg Take 1 [facility] (DELTASONE) 2-11 Tablet by Col lege 20 MG 00:00: mouth of tablet 00 daily. Medicin Taper by 5 e mg every week. MINERAL OIL 2020-02 Yes Take by [facility] OR 2-10 mouth. College 09:20: of 34 Medicin e Cholecalcif 2020-02 Yes Take by Milton herman alex 2-10 mouth. [facility] (VITAMIN D) 09:20: of 125 MCG 34 Medicin (5000 UT) e CAPS ferrous 2020-02 Yes 325mg Take 325 Baylo r sulfate 2-10 mg by [facility] (FEROSUL) 09:19: mouth of 325 (65 Fe) 41 daily. Medici n MG tablet e Mesalamine 2020-02 Yes Take by [facility] or (PENTASA) 2-10 mouth. [facility] 500 MG CPCR 09:19: of 41 Medicin e predniSONE 2020-02 Yes Ran (DELTASONE) 1-26 College 20 MG 00:00: of tablet 00 Medicin e predniSONE 2020-02- No 20mg Take 20 mg [facility] (DELTASONE) 03-13 by mouth Col lege 20 MG 00:00: 00:00 daily. of tablet 00 :00 Medicin e predniSONE 2020-02- No 20mg Take 20 mg [facility] (DELTASONE) 03-13 by mouth Col [...] Take 40 mg Ran e 12 by [facility] (PROTONIX) 00:00: daily. of 40 MG 00 Medicin tablet e pantoprazol 2020-02- No 40mg Take 40 mg [facility] e 02-27 by [facility] (PROTONIX) 00:00: 00:00 daily. of 40 MG 00 :00 Medicin tablet e pantoprazol 2020-02- No 40mg Take 40 mg Ran e 02-27 by mouth [facility] (PROTONIX) 00:00: 00:00 daily. of 40 MG 00 :00 Medicin tablet e lisinopril 2020-02 Yes 1 po daily [facility] (PRINIVIL, 02-23 in the [facility]) 5 00:00: morning of MG tablet 00 Medicin e lisinopril 2020-02 Yes 1 po daily [facility] (PRINIVIL, 02-23 in the [facility]) 5 00:00: morning of MG tablet 00 Medicin e lisinopril 2020-02 Yes 1 po daily [facility] (PRINIVIL, 02-23 in the [facility]) 5 00:00: morning of MG tablet 00 Medicin e lisinopril 2020-02 Yes 1 po daily [facility] (PRINIVIL, 02-23 in the [facility]) 5 00:00: morning of MG tablet 00 Medicin e lisinopril 2020-02 Yes 1 po daily [facility] (PRINIVIL, 02-23 in the [facility]) 5 00:00: morning of MG tablet 00 Medicin e lisinopril 2020-02 Yes 1 po daily [facility] (PRINIVIL, 02-23 in the [facility]) 5 00:00: morning of MG tablet 00 Medicin e sertraline 2020-02 Yes Ran (ZOLOFT) 02-17 [facility] 100 MG 00:00: of tablet 00 Medicin e sertraline 2020-02 Yes [facility] (ZOLOFT) -02 [facility] 100 MG 00:00: of tablet 00 Medicin e buPROPion 2020-02 Yes TAKE 2 [facility] (WELLBUTRIN 1-02 TABLETS BY Co llege ) 75 MG 00:00: MOUTH of tablet 00 EVERY Medicin MORNING e AND 1 TABLET BY MOUTH EVERY EVENING buPROPion 2020-02 Yes TAKE 2 [facility] (WELLBUTRIN 1-02 TABLETS BY Co [...] Medicin e buPROPion 2020-02 Yes TAKE 2 [facility] (WELLBUTRIN 1-02 TABLETS BY Co llege ) 75 MG 00:00: MOUTH of tablet 00 EVERY Medicin MORNING e AND 1 TABLET BY MOUTH EVERY EVENING sertraline 2020-02 Yes [facility] (ZOLOFT) 1 College 100 MG 00:00: of tablet 00 Medicin e buPROPion 2020-02 Yes TAKE 2 [facility] (WELLBUTRIN 1-02 TABLETS BY Co llege ) 75 MG 00:00: MOUTH of tablet 00 EVERY Medicin MORNING e AND 1 TABLET BY MOUTH EVERY EVENING sertraline 2020-02 Yes [facility] (ZOLOFT) 1 College 100 MG 00:00: of tablet 00 Medicin e buPROPion 2020-02 Yes TAKE 2 [facility] (WELLBUTRIN 1-02 TABLETS BY Co llege ) 75 MG 00:00: MOUTH of tablet 00 EVERY Medicin MORNING e AND 1 TABLET BY MOUTH EVERY EVENING Adalimumab 2020-02 Yes [facility] (HUMIRA 0-25 [facility]) 40 00:00: of MG/0.8ML 00 Medicin injection e Adalimumab 2020-02- No [facility] (HUMIRA 0-25 -14 [facility] PEN) 40 00:00: 00:00 of MG/0.8ML 00 :00 Medicin injection e levothyroxi Yes levothyrox [facility] 09-17 ine 25 mcg [facility] (SYNTHROID) 00:00: tablet of 25 MCG 00 TAKE 1 Medicin tablet TABLET BY e MOUTH DAILY IN THE MORNING WITH JUST A SIP OF WATER. WAIT 30 MINUTES BEFORE EATING OR DRINKING ANYTHING levothyroxi 0 Yes levothyrox [facility] 09-17 ine 25 mcg [facility] (SYNTHROID) 00:00: tablet of 25 MCG 00 TAKE 1 Medicin tablet TABLET BY e MOUTH DAILY IN THE MORNING WITH JUST A SIP OF WATER. WAIT 30 MINUTES BEFORE EATING OR DRINKING ANYTHING levothyroxi 2020-0 Yes levothyrox [facility] 8 ine 25 mcg [facility] (SYNTHROID) 00:00: tablet of 25 MCG 00 TAKE 1 Medicin tablet TABLET BY e MOUTH DAILY IN THE MORNING WITH JUST A SIP OF WATER. WAIT 30 MINUTES BEFORE EATING OR DRINKING ANYTHING levothyroxi 2020-0 Yes levothyrox [facility] 8 ine 25 mcg [facility] (SYNTHROID) 00:00: tablet of 25 MCG 00 TAKE 1 Medicin tablet TABLET BY e MOUTH DAILY IN THE MORNING WITH JUST A SIP OF WATER. WAIT 30 MINUTES BEFORE EATING OR DRINKING ANYTHING levothyroxi 2020-0 Yes levothyrox [facility] 09-17 ine 25 mcg [facility] (SYNTHROID) 00:00: tablet of 25 MCG 00 TAKE 1 Medicin tablet TABLET BY e MOUTH DAILY IN THE MORNING WITH JUST A SIP OF WATER. WAIT 30 MINUTES BEFORE EATING OR DRINKING ANYTHING levothyroxi 2020-0 Yes levothyrox [facility] 09-17 ine 25 mcg [facility] (SYNTHROID) 00:00: tablet of 25 MCG 00 TAKE 1 Medicin tablet TABLET BY e MOUTH DAILY IN THE MORNING WITH JUST A SIP OF WATER. WAIT 30 MINUTES BEFORE EATING OR DRINKING ANYTHING lisinopriL- 2020-0 Yes [id number] 1{tbl} QD TAKE 1 [facility] hydrochloro 7-[address] thiazide 00:00: MOUTH Hospita (PRINZIDE) 00 DAILY l 10-12.5 mg per tablet metoprolol 2020-0 Yes [id number] TAKE 1 Me thodi tartrate 7-29 TABLET(50 st (LOPRESSOR) 00:00: MG) BY Hosp mich 50 mg 00 MOUTH l tablet TWICE DAILY metoprolol 2020-0 2020- No [id number] TAKE 1 M ethodi tartrate 4-26 07-29 TABLET(50 st (LOPRESSOR) 00:00: 00:00 MG) BY Hos alba 50 mg 00 :00 MOUTH l tablet TWICE DAILY lisinopriL- 2020-0 2020- No [id number] 1{tbl} QD TAKE 1 [facility] hydrochloro 4-26 07-[address] thiazide 00:00: 00:00 MOUTH Hospita (PRINZIDE) 00 :00 DAILY l 10-12.5 mg per tablet lisinopriL- 2022020- No [id number] 1{tbl} QD Take 1 [facility] hydrochloro 03-12- tablet by st thiazide 00:00: 00:00 mouth Hospita (PRINZIDE) 00 :00 daily. l 10-12.5 mg per tablet metoprolol 2020- No [id number] 50mg Q.5D Take 1 M ethodi tartrate 03-12-26 tablet (50 st (LOPRESSOR) 00:00: 00:00 mg total) Hospita 50 mg 00 :00 by mouth 2 l tablet (two) times a day. lisinopril- 2020- No [id number] 1{tbl} QD TAKE 1 [facility] hydrochloro 03-[address] thiazide 00:00: 00:00 MOUTH Hospita (PRINZIDE) 00 :00 DAILY l 10-12.5 mg per tablet metoprolol 2020- No [id number] TAKE 1 M ethodi tartrate 03-17 TABLET(50 [...] :00 Medicin e sertraline 2021- No sertraline [facility] (ZOLOFT) 50 02-17 02-11 50 mg Colleg [...] by Met brianne in-folic 09-[address] [id number] 16:39: Hospita 200 mcg 47 l tablet [...] kg Systolic blood 2021-08-27 14:02:00 95 mm[Hg] [facility] pressure Medicine Diastolic blood 2021-08-27 14:02:00 56 mm[Hg] [facility] Medicine Heart rate 2021-08-27 14:02:00 76 /min sp02 97 [facility] Body temperature 2021-08-27 14:02:00 36.72 Nadiya [facility] Respiratory rate 2021-08-27 14:02:00 16 /min [facility] Body height 2021-08-27 14:02:00 154.9 cm [facility] Body weight 2021-08-27 14:02:00 116.756 kg [facility] BMI 2021-08-27 14:02:00 48.64 kg/m2 [facility] WEIGHT 2021-08-15 05:40:00 111.9 kg WEIGHT 2021-08-14 06:00:00 112.9 kg WEIGHT 2021-08-15 05:40:00 111.9 kg WEIGHT 2021-08-14 06:00:00 112.9 kg Systolic blood 2021-08-13 13:12:00 131 mm[Hg] [facility] pressure Medicine Diastolic blood 2021-08-13 13:12:00 84 mm[Hg] [facility] pressure Medicine Heart rate 2021-08-13 13:12:00 63 /min spo2 97 [facility] ollege of [facility] Body temperature 2021-08-13 13:12:00 36.67 Nadiya [facility] Body height 2021-08-13 13:12:00 154.9 cm [facility] C ollege of Medicine Body weight 2021-08-13 13:12:00 115.032 kg [facility] C ollege of Medicine BMI 2021-08-13 13:12:00 47.92 kg/m2 [facility] ollege of Medicine Systolic blood 2021-06-27 19:19:00 111 mm[Hg] [facility] Medicine Diastolic blood 2021-06-27 19:19:00 70 mm[Hg] [facility] Medicine Heart rate 2021-06-27 19:19:00 67 /min [facility] ollege of [facility] Body temperature 2021-06-27 19:19:00 36.11 Nadiya [facility] Respiratory rate 2021-06-27 19:19:00 16 /min [facility] Body height 2021-06-27 19:19:00 154.9 cm [facility] ollege of Medicine Body weight 2021-06-27 19:19:00 109.77 kg [facility] ollege of Medicine BMI 2021-06-27 19:19:00 45.73 kg/m2 [facility] C ollege of Medicine WEIGHT 2021-05-17 12:46:00 52.98 kg WEIGHT 2021-05-17 06:25:00 107.911 kg WEIGHT 2021-05-17 12:46:00 52.98 kg WEIGHT 2021-05-17 06:25:00 107.911 kg Body weight 2021-03-29 17:28:00 110.678 kg [facility] C ollege of Medicine BMI 2021-03-29 17:28:00 46.10 kg/m2 [facility] C ollege of Medicine Systolic blood 2021-03-29 17:28:00 143 mm[Hg] [facility] Diastolic blood 2021-03-29 17:28:00 82 mm[Hg] [facility] Heart rate 2021-03-29 17:28:00 60 /min [facility] Body temperature 2021-03-29 17:28:00 36.22 Nadiya [facility] Respiratory rate 2021-03-29 17:28:00 16 /min [facility] Body height 2021-03-29 17:28:00 154.9 cm [facility] Body height 2021-03-01 15:04:00 154.9 cm [facility] Body weight 2021-03-01 15:04:00 107.593 kg [facility] BMI 2021-03-01 15:04:00 44.82 kg/m2 [facility] HEIGHT 2021-02-03 05:20:00 154.9 cm WEIGHT 2021-02-03 05:20:00 106.505 kg HEIGHT 2021-02-03 05:20:00 154.9 cm WEIGHT 2021-02-03 05:20:00 106.505 kg Systolic blood 2021-01-25 15:06:00 122 mm[Hg] [facility] Diastolic blood 2021-01-25 15:06:00 80 mm[Hg] [facility] Heart rate 2021-01-25 15:06:00 81 /min [facility] Body temperature 2021-01-25 15:06:00 36.28 Nadiya [facility] Respiratory rate 2021-01-25 15:06:00 14 /min [facility] Body height 2021-01-25 15:06:00 154.9 cm [facility] Body weight 2021-01-25 15:06:00 106.142 kg [facility] BMI 2021-01-25 15:06:00 44.21 kg/m2 [facility] Procedures Procedure Date / Time Performing Clinician Source Performed CBC W/AUTO DIFF WITH 2021-07-16 09:57:55 [facility] BASIC METABOLIC PANEL 2021-07-16 09:57:55 [facility] HEPATIC FUNCTION PANEL 2021-07-16 09:57:55 [facility] SEDIMENTATION RATE 2021-07-16 09:57:55 [facility] llege of [facility] TREATMENT CONDITIONS 2021-07-16 09:57:55 [facility] Plan of Care Planned Activity Planned Date Details Comments Source Future Scheduled 2021-08-27 Screening for malignant [facility] Test 09:36:56 neoplasm of colon Medicine (procedure) [code = 230879811] Future Scheduled 2021-08-27 Screening for malignant [facility] Test 09:36:56 neoplasm of breast Medicine (procedure) [code = 020638407] Future Scheduled 2021-08-27 TETANUS SHOT (ADULT) [facility] Test 09:36:56 [code = TETANUS SHOT Medicin e (ADULT)] Future Scheduled 2021-08-27 BMI FOLLOW UP PLAN [code [facility] Test 09:36:56 = BMI FOLLOW UP PLAN] Medici ne Future Scheduled 2021-08-27 Hepatitis C screening [facility] of Test 09:36:56 (procedure) [code = Medicine [id number]] Future Scheduled 2021-08-27 ZOSTER VACCINE (1 of 2) [facility] Test 09:36:56 [code = ZOSTER VACCINE (1 Me dicine of 2)] Future Scheduled 2021-08-27 COVID-19 Vaccine (2 - [facility] of Test 09:36:56 Pfizer series) [code = Medic ine COVID-19 Vaccine (2 - Pfizer series)] Future Scheduled 2021-08-27 MEDICARE IPPE (WELCOME TO [facility] of Test 09:36:56 MEDICARE) [code = Medicine MEDICARE IPPE (WELCOME TO MEDICARE)] Future Scheduled 2021-08-27 FALL SCREEN [code = FALL [facility] of Test 09:36:56 SCREEN] Medicine Future Scheduled 2021-08-27 Screening for [facility] Col lege of Test 09:36:56 osteoporosis (procedure) Med icine [code = [id number]] Future Scheduled 2021-08-27 Pneumococcal 65+ (1 - Ba [facility] Test 09:36:56 PCV) [code = Pneumococcal Me dicine 65+ (1 - PCV)] Future Scheduled 2021-08-27 FLU VACCINE > 6 MONTHS [facility] of Test 09:36:56 [code = FLU VACCINE > 6 Medi cine MONTHS] Future Scheduled 2021-08-[address] [facility] of Test 08:16:08 neoplasm of colon Medicine (procedure) [code = 063440113] Future Scheduled 2021-08-[address] [facility] of Test 08:16:08 neoplasm of breast Medicine (procedure) [code = 718000412] Future Scheduled 2021-08-13 TETANUS SHOT (ADULT) [facility] Test 08:16:08 [code = TETANUS SHOT Medicin e (ADULT)] Future Scheduled 2021-08-13 BMI FOLLOW UP PLAN [code [facility] of Test 08:16:08 = BMI FOLLOW UP PLAN] Medici ne Future Scheduled 2021-08-13 Hepatitis C screening [facility] Test 08:16:08 (procedure) [code = Medicine [id number]] Future Scheduled 2021-08-13 ZOSTER VACCINE (1 of 2) [facility] Test 08:16:08 [code = ZOSTER VACCINE (1 Me dicine of 2)] Future Scheduled 2021-08-13 COVID-19 Vaccine (2 - Ba [facility] Test 08:16:08 Pfizer series) [code = Medic ine COVID-19 Vaccine (2 - Pfizer series)] Future Scheduled 2021-08-13 MEDICARE IPPE (WELCOME TO [facility] Test 08:16:08 MEDICARE) [code = Medicine MEDICARE IPPE (WELCOME TO MEDICARE)] Future Scheduled 2021-08-13 FALL SCREEN [code = FALL [facility] of Test 08:16:08 SCREEN] Medicine Future Scheduled 2021-08-13 Screening for [facility] Col lege of Test 08:16:08 osteoporosis (procedure) Med icine [code = [id number]] Future Scheduled 2021-08-13 Pneumococcal 65+ (1 - Ba [facility] of Test 08:16:08 PCV) [code = Pneumococcal Me dicine 65+ (1 - PCV)] Future Scheduled 2021-08-13 FLU VACCINE > 6 MONTHS B [facility] of Test 08:16:08 [code = FLU VACCINE > 6 Medi cine MONTHS] Future Scheduled 2021-06-[address] [facility] of Test 14:20:32 neoplasm of colon Medicine (procedure) [code = 324949635] Future Scheduled 2021-06-[address] [facility] of Test 14:20:32 neoplasm of breast Medicine (procedure) [code = 741768833] Future Scheduled 2021-06-27 TETANUS SHOT (ADULT) [facility] of Test 14:20:32 [code = TETANUS SHOT Medicin e (ADULT)] Future Scheduled 2021-06-27 BMI FOLLOW UP PLAN [code [facility] of Test 14:20:32 = BMI FOLLOW UP PLAN] Medici ne Future Scheduled 2021-06-27 Hepatitis C screening [facility] Test 14:20:32 (procedure) [code = Medicine [id number]] Future Scheduled 2021-06-27 ZOSTER VACCINE (1 of 2) [facility] Test 14:20:32 [code = ZOSTER VACCINE (1 Me dicine of 2)] Future Scheduled 2021-06-27 COVID-19 Vaccine (2 - Ba [facility] Test 14:20:32 Pfizer 3-dose series) Medici ne [code = COVID-19 Vaccine (2 - Pfizer 3-dose series)] Future Scheduled 2021-06-27 MEDICARE IPPE (WELCOME TO [facility] Test 14:20:32 MEDICARE) [code = Medicine MEDICARE IPPE (WELCOME TO MEDICARE)] Future Scheduled 2021-06-27 FALL SCREEN [code = FALL [facility] Test 14:20:32 SCREEN] Medicine Future Scheduled 2021-06-27 Screening for [facility] of Test 14:20:32 osteoporosis (procedure) Med icine [code = 882471036] Future Scheduled 2021-06-27 Pneumococcal 65+ (1 of 1 [facility] Test 14:20:32 - PPSV23) [code = Medicine Pneumococcal 65+ (1 of 1 - PPSV23)] Future Scheduled 2021-06-27 FLU VACCINE > 6 MONTHS [facility] Test 14:20:32 [code = FLU VACCINE > 6 Medi cine MONTHS] Future Scheduled 2021-04-[address] [facility] of Test 13:40:02 neoplasm of colon Medicine (procedure) [code = 871052640] Future Scheduled 2021-04-[address] [facility] of Test 13:40:02 neoplasm of breast Medicine (procedure) [code = 366814818] Future Scheduled 2021-04-04 TETANUS SHOT (ADULT) [facility] of Test 13:40:02 [code = TETANUS SHOT Medicin e (ADULT)] Future Scheduled 2021-04-04 BMI FOLLOW UP PLAN [code [facility] of Test 13:40:02 = BMI FOLLOW UP PLAN] Medici ne Future Scheduled 2021-04-04 Hepatitis C screening [facility] Test 13:40:02 (procedure) [code = Medicine 066386473] Future Scheduled 2021-04-04 Human immunodeficiency B [facility] Test 13:40:02 virus screening Medicine (procedure) [code = 752074550] Future Scheduled 2021-04-04 Screening for malignant [facility] Test 13:40:02 neoplasm of cervix Medicine (procedure) [code = 850262865] Future Scheduled 2021-04-04 ZOSTER VACCINE (1 of 2) [facility] Test 13:40:02 [code = ZOSTER VACCINE (1 Me dicine of 2)] Future Scheduled 2021-04-04 FLU VACCINE > 6 MONTHS B [facility] Test 13:40:02 [code = FLU VACCINE > 6 Medi cine MONTHS] Future Scheduled 2021-04-04 COVID-19 Vaccine (2 - Ba [facility] Test 13:40:02 Pfizer 3-dose series) Medici ne [code = COVID-19 Vaccine (2 - Pfizer 3-dose series)] Future Scheduled 2021-04-[address] [facility] of Test 13:40:02 neoplasm of colon Medicine (procedure) [code = 647198302] Future Scheduled 2021-04-[address] [facility] of Test 13:40:02 neoplasm of breast Medicine (procedure) [code = 823096797] Future Scheduled 2021-04-04 TETANUS SHOT (ADULT) [facility] Test 13:40:02 [code = TETANUS SHOT Medicin e (ADULT)] Future Scheduled 2021-04-04 BMI FOLLOW UP PLAN [code [facility] of Test 13:40:02 = BMI FOLLOW UP PLAN] Medici ne Future Scheduled 2021-04-04 Hepatitis C screening [facility] Test 13:40:02 (procedure) [code = Medicine 448554179] Future Scheduled 2021-04-04 Human immunodeficiency B [facility] Test 13:40:02 virus screening Medicine (procedure) [code = 328972761] Future Scheduled 2021-04-[address] [facility] of Test 13:40:02 neoplasm of cervix Medicine (procedure) [code = 782867154] Future Scheduled 2021-04-04 ZOSTER VACCINE (1 of 2) [facility] Test 13:40:02 [code = ZOSTER VACCINE (1 Me dicine of 2)] Future Scheduled 2021-04-04 FLU VACCINE > 6 MONTHS B [facility] Test 13:40:02 [code = FLU VACCINE > 6 Medi cine MONTHS] Future Scheduled 2021-04-04 COVID-19 Vaccine (2 - Ba [facility] Test 13:40:02 Pfizer 3-dose series) Medici ne [code = COVID-19 Vaccine (2 - Pfizer 3-dose series)] Future Scheduled 2021-01-[address] [facility] of Test 09:15:59 neoplasm of colon Medicine (procedure) [code = 239983869] Future Scheduled 2021-01-25 Screening for malignant [facility] Test 09:15:59 neoplasm of breast Medicine (procedure) [code = 262045493] Future Scheduled 2021-01-25 TETANUS SHOT (ADULT) [facility] Test 09:15:59 [code = TETANUS SHOT Medicin e (ADULT)] Future Scheduled 2021-01-25 Hepatitis C screening [facility] Test 09:15:59 (procedure) [code = Medicine 521888777] Future Scheduled 2021-01-25 Human immunodeficiency B [facility] Test 09:15:59 virus screening Medicine (procedure) [code = 777226656] Future Scheduled 2021-01-[address] [facility] of Test 09:15:59 neoplasm of cervix Medicine (procedure) [code = 508678622] Future Scheduled 2021-01-25 ZOSTER VACCINE (1 of 2) [facility] of Test 09:15:59 [code = ZOSTER VACCINE (1 Me dicine of 2)] Future Scheduled 2021-01-25 FLU VACCINE > 6 MONTHS B [facility] of Test 09:15:59 [code = FLU VACCINE > 6 Medi cine MONTHS] Future Scheduled 2021-01-25 COVID-19 Vaccine (2 - Ba [facility] of Test 09:15:59 Pfizer 2-dose series) Medici ne [code = COVID-19 Vaccine (2 - Pfizer 2-dose series)] Future Scheduled COVID-19 VACCINE (1) [facility] [code = COVID-19 VACCINE Hos pital (1)] Future Scheduled Hepatitis C screening [facility] (procedure) [code = Hospital 182045711] Future Scheduled Screening for malignant [facility] neoplasm of cervix Hospital (procedure) [code = 043060241] Future Scheduled BREAST CANCER SCREENING [facility] [code = BREAST CANCER Hospit al SCREENING] Future Scheduled COLONOSCOPY SCREENING [facility] Test [code = COLONOSCOPY Hospital SCREENING] Future Scheduled SHINGLES VACCINES (#1) M [facility]ist Test [code = SHINGLES VACCINES Ho spital (#1)] Future Scheduled INFLUENZA VACCINE [code = [facility] INFLUENZA VACCINE] Hospital Encounters Start End Encounter Admission Attending Care Care Encounter Source Date/Time Date/Time Type Type Clinicians Facility Department ID 2021-09-11 Inpatient ALEJANDRO GREGORY [facility] Surgery [id number] [facility] 10:44:45 2021-10-14 2021-10-14 Outpatient [facility] [id number] SLE 00:00:00 00:00:00 2021-09-20 2021-09-20 Outpatient [facility] [id number] SLE 13:50:46 23:59:00 2021-09-17 2021-09-17 Outpatient GREGORY [facility] [id number] [facility] 12:47:54 13:23:39 June Medicin e 2021-08-27 2021-08-27 [facility] 1.2.840.114 [id number] [facility] 08:46:50 11:11:12 Visit Purvi 350.1.13.21 Co llege 0.2.7.2.686 of [id number] Medi renea 510 e 2021-08-13 2021-08-15 [id number] 13:37:00 20:00:00 [facility] 2021-08-13 2021-08-13 Office [facility]REGORY [facility] 1.2.840.114 [id number] [facility] 07:25:12 09:53:42 Visit Purvi 350.1.13.21 Co llege 0.2.7.2.686 of [id number] Medi renea 510 e 2021-07-16 2021-07-16 Outpatient BCM [facility] [id number] [facility] 08:53:05 23:59:00 Colleg e of Medicin e 2021-06-27 2021-06-27 Office ADINA FRAZIER 1.2.840.114 [id number] [facility] 13:13:17 16:06:41 Visit MANREET AMBULATOR 350.1.13.21 College Y 0.2.7.2.686 of [id number] Medi renea 325 e 2021-06-11 2021-06-11 Out[facility] [id number] [facility] 14:50:55 15:38:46 Colleg e of Medicin e 2021-05-20 2021-05-20 [facility] [id number] [facility] 08:32:32 23:59:00 Colleg e of Medicin e 2021-05-17 2021-05-[address] [facility] Med [id number] [facility] 05:35:00 16:42:00 AHMED 2021-05-17 2021-05-17 [facility] [id number] [facility] 00:00:00 23:59:00 Colleg e of Medicin e 2021-04-22 2021-04-22 Outpatient [facility] [id number] [facility] 08:34:02 23:59:00 Colleg e of Medicin e 2021-04-08 2021-04-08 Outpatient [facility] [id number] [facility] 08:22:34 23:59:00 Colleg e of Medicin e 2021-03-29 2021-03-29 Office KIM Frazier 1.2.840.114 [id number] [facility] 11:00:00 13:34:50 Visit Manreet AMBULATOR 350.1.13.21 College Y 0.2.7.2.686 of [id number] Medi renea 325 e 2021-03-01 2021-03-01 Office ADINA Frazier 1.2.840.114 [id number] [facility] 09:00:00 11:07:59 Visit Manreet AMBULATOR 350.1.13.21 College Y 0.2.7.2.686 of [id number] [facility] 325 e 2021-02-03 2021-02-06 Inpatient ER PAULO BRISCOE [facility] [id number] [facility] 05:14:00 16:07:00 OBINNA 2021-01-25 2021-01-25 Office ADINA FRAZIER 1.2.840.[id number] [place] [address] 00:00:00 19:54:04 Visit MANREET AMBULATOR 350.1.13.21 College Y 0.2.7.2.686 of [id number] [facility] 325 e 2020-09-12 2020-09-12 Toby Clemons 1.2.840.1 [id number] [facility]i 00:00:00 00:00:[address] 3.430.2.7 Hospit a .3.915361 l .8 2020-06-11 2020-06-11 Toby Clemons 1.2.840.1 [id number] 2541 Methodi 00:00:00 00:00:[address] Ace [address]ix 40975.1.[address] 3.430.2.7 Hospit a .3.744574 l .8 2020-03-12 2020-03-12 Javier Kelly 1.2.840.1 [id number] 2100 139067 Methodi 00:00:00 00:00:[address] 3.430.2.7 Hospit a .3.839988 l .8 Results Test Description Test Time [...] Vega Verified Date/Time: 08/15/2021 16:25:49 Reading Location: [facility] C013Y CT Body Reading Room C METABOLIC [...] NOT 1092) ACCURATE CRE ATININE CLEARANCE IN DC EDICTING GLOMERULAR FILT RATION RATE. ESTIMATED GFR IS NOT APPLICABLE FOR DIALYSIS PATIENTS. Business Intelligence Manager ID - [id number] 06:25:19 Test Item Value Reference Range Interpretation Comments MAGNESIUM (BEAKER) (test code = 2.5 mg/dL 1.6-2.6 627) Business Intelligence Manager ID - [id number] 06:25:19 Test Item Value Reference Range Interpretation Comments PHOSPHORUS (BEAKER) (test code = 2.7 mg/dL 2.3-4.7 604) Business Intelligence Manager ID - BSCBC W/PLT COUNT & AUTO [id number] 05:50:37 Test Item Value Reference Range Interpretation [...] 0-1 PERCENT (BEAKER) (test code = 2801) [id number] 14:14:38 Test Item Value Reference Range Interpretation Comments TRIGLYCERIDES (BEAKER) (test code = 163 mg/dL 540) TRIGLYCERIDE REFERENCE RANGELow Risk <150Borderline Risk 150-199High Risk 200-499Very High Risk >=500Operator ID - MOSARS-COV2/RT-PCR ([facility])2021-08-14 09:57:59 Test Item Value Reference Range Interpretation Comments SARS-COV2/RT-PCR (test Negative Not Detected, Negative, code = 2037532) See external report for linked test SARS-COV-[address] [facility] TAWNY (test code = 3071042) Negative result for this test determines that [...] of the Act.Fact Sheet for Healthcare Prov iders:https://www.[employer]/sites/default/files/product/documents/Fact_Sheet_HC _Hbekzyfys_Tdou_UMNU-PmY-4.pdfFact Sheet for Healthcare Patients:https://www.[employer]/sites/default/files/product/docume nts/Sivs_Hvwzp_Qyxsapli_Dich_GXDR-ZgV-8.pdfPerforming Laboratory:[address] [place].[place], [place] [address]MHZR-ENBKDVP METER 2021-08-14 06:10:11 Test Item Value Reference Range Interpretation Comments POC-GLUCOSE METER 119 mg/dL 70-110 H : Notified RN/: (SCOOTER) (test code = TESTED AT [place] [address] 1538) [facility], [address]: Business Intelligence Manager/Techni benjamin ID = [id number] for SYLVIA BRADALES POCT-GLUCOSE [id number] 00:23:47 Test Item Value Reference Range Interpretation Comments POC-GLUCOSE METER 178 mg/dL 70-110 H : Notified RN/: (SCOOTER) (test code = TESTED AT [facility] 67 1538) [facility], [address]: Business Intelligence Manager/Techni benjamin ID = [id number] for SYLVIA BARDALES COMPREHENSIVE METABOLIC [id number] 19:13:46 Test Item Value Reference Range Interpretation [...] S NOT APPLICABLE FOR DIALYSIS PATIEN TS. Business Intelligence Manager ID - BSPROTHROMBIN TIME/[id number] 19:02:27 Test Item Value Reference Range Interpretation Comments PROTIME (BEAKER) 12.3 seconds 11.9-14.2 (test code = 759) INR (BEAKER) (test 0.93 See_Comment [Automat ed message] code = 370) The system Smart Patients generated this result transmitted ref erence range: <=5.90. The reference range was not used to int erpret this result as normal/abnormal . RECOMMENDED COUMADIN/WARFARIN INR THERAPY RANGESSTANDARD DOSE: 2.0 - 3.0 Includes: PROPHYLAXIS for venous thrombosis, systemic embolization; TREATMENT for venous thrombosis and/or pulmonary embolus.HIGH RISK: Target INR is 2.5-3.5 for patients with mechanical heart valves.CBC W/PLT COUNT & AUTO [id number] 18:51:23 Test Item Value Reference Range Interpretation [...] = 2801) RAD, CHEST, 1 VIEW, NON [id number] 18:27:00Reason for exam:->post picc line insertionShould this be performed at the bedside?->Yes [facility] 1955 Sex: FFINAL [...] MDReport Verified Date/Time: 08/13/2021 18:27:07 BASIC METABOLIC [id number] 05:35:09 Test Item Value Reference Range Interpretation [...] S NOT APPLICABLE FOR DIALYSIS PATIEN TS. Business Intelligence Manager ID - PIAYA LLACTIC ACID, [id number] 05:11:20 Test Item Value Reference Range Interpretation Comments LACTATE BLOOD VENOUS (2) (BEAKER) 2.49 mmol/L 0.50-2.20 H (test code = 2872) Business Intelligence Manager ID - DBCBC W/PLT COUNT & AUTO [id number] 05:00:57 Test Item Value Reference Range Interpretation [...] 0-1 PERCENT (BEAKER) (test code = 2801) [id number] 06:40:18 Test Item Value Reference Range Interpretation Comments PHOSPHORUS (BEAKER) 3.3 mg/dL 2.3-4.7 Specimen slightly (test code = 604) hemolyzed Business Intelligence Manager ID - DBBASIC METABOLIC [id number] 06:40:18 Test Item Value Reference Range Interpretation [...] S NOT APPLICABLE FOR DIALYSIS PATIEN TS. Business Intelligence Manager ID - [id number] 06:40:17 Test Item Value Reference Range Interpretation Comments MAGNESIUM (BEAKER) 1.9 mg/dL 1.6-2.6 Specimen slightly (test code = 627) hemolyzed Business Intelligence Manager ID - DBCBC (HEMOGRAM ONLY)2021-05-18 05:39:35 [...] 0-0 (BEAKER) (test code = 413) SARS-COV2/RT-PCR ([facility])2021-05-17 14:30:52 Test Item Value Reference Range Interpretation Comments SARS-COV2/RT-PCR (test Negative Not Detected, Negative, code = 8307517) See external report for linked test SARS-COV-[address] [facility] TAWNY (test code = 9543884) Negative result for this test determines that [...] of the Act.Fact Sheet for Healthcare Prov iders:https://www.[employer].com/sites/default/files/product/documents/Fact_Sheet_HC _Ycuqhfjvb_Xjpv_ITFA-QqY-8.pdfFact Sheet for Healthcare Patients:https://www.[employer].com/sites/default/files/product/docume nts/Hbkv_Fimnu_Xiqonxlg_Qeho_RAXQ-YaK-9.pdfPerforming Laboratory:[facility] [place], [place] [address]HVY, CHEST, 1 VIEW, NON [id number] 11:04:00Reason for exam:->new admission with possible entero- enteric fistulaShould this be performed at the bedside?->Yes [facility] 1955 Sex: FFINAL REPORT [...] Becerril Verified Date/Time: 05/17/2021 11:04:57 Reading Location: [facility] Radiology Reading Room RAD, ABDOMEN/KUB, 1 VIEW [id number] 10:21:00Reason for exam:->concern for small bowel obstructionShould this be performed at the bedside?->Yes [facility] 1955 Sex: FFINAL REPORT [...] partial small bowel obstruction. Signed: John Becerril MDRepcox south Verified Date/Time: 05/17/2021 10:21:20 Reading Location: [facility] Radiology Reading Room [id number] 09:42:25 Test Item Value Reference Range Interpretation Comments PHOSPHORUS (BEAKER) (test code = 2.6 mg/dL 2.3-4.7 604) Business Intelligence Manager ID - DBBASIC METABOLIC [id number] 09:42:24 Test Item Value Reference Range Interpretation [...] S NOT APPLICABLE FOR DIALYSIS PATIEN TS. Business Intelligence Manager ID - [id number] 09:42:24 Test Item Value Reference Range Interpretation Comments MAGNESIUM (BEAKER) (test code = 1.9 mg/dL 1.6-2.6 627) Business Intelligence Manager ID - DBPROTHROMBIN TIME/[id number] 09:28:59 Test Item Value Reference Range Interpretation Comments PROTIME (BEAKER) 12.9 seconds 11.9-14.2 (test code = 759) INR (BEAKER) (test 0.99 See_Comment [Automat ed message] code = 370) The system Smart Patients generated this result transmitted ref erence range: [...] (BEAKER) (test code = 413) HEPATITIS B [id number] 20:49:20 Test Item Value Reference Range Interpretation Comments HEPATITIS B CORE TOTAL ANTIBODY Nonreactive Nonreactive (BEAKER) (test code = 497) HEPATITIS B SURFACE ANTIBODY < mIU/mL <8.0 (BEAKER) (test code = 647) HEPATITIS B SURFACE ANTIGEN (2) Nonreactive Nonreactive (BEAKER) (test code = 2585) Business Intelligence Manager ID - BSOperator ID - BSVITAMIN D, [id number] 18:58:29 Test Item Value Reference Range Interpretation Comments VITAMIN D 25-OH (BEAKER) (test 48.0 ng/mL 6.6-49.9 code = 2764) Effective 11/26/2016: Reference Range ChangeNew: 6.6-49.9 ng/mL Previous: 13.0- 47.8 ng/mLRecommendedVitamin D Target Range: 30.0-40.0 ng/mLOperator ID - BSC. DIFFICILE GDH [id number] 13:19:34 Test Item Value Reference Range Interpretation Comments CDT TOXIN (test code Negative Negative = 0523597724) CDT GDH ANTIGEN (test Negative Negative No ind ication of code = 4488702166) Clostridi um difficile infection and n o colonization. Discontinue ent christopher isolation and t herapy. Testing performed by [employer] Rapid Cassette Assay. For GDH, published sensitivity of the assay is 98.7% compared to cytotoxicity testing. For Toxin AB, published sensitivity is 87.8% and specificity 99.4% compared to cytotoxicity testing.Verification of kit performance was done by the [facility] MicrobiologyLab prior to clinical use.BASIC METABOLIC [id number] 05:52:32 Test Item Value Reference Range Interpretation [...] S NOT APPLICABLE FOR DIALYSIS PATIEN TS. Business Intelligence Manager ID - PIAYA LCBC (HEMOGRAM ONLY)2021-02-06 [...] (BEAKER) (test code = 413) BASIC METABOLIC [id number] 05:38:29 Test Item Value Reference Range Interpretation [...] S NOT APPLICABLE FOR DIALYSIS PATIEN TS. Business Intelligence Manager AMADA - DEANNA PRETTY-REACTIVE [id number] 05:38:29 Test Item Value Reference Range Interpretation Comments C-REACTIVE PROTEIN (BEAKER) (test 3.86 mg/dL 0.00-0.50 H code = 676) Business Intelligence Manager AMADA - DEANNA PRETTYBC (HEMOGRAM ONLY)2021-02-05 05:28:27 [...] 0-0 (BEAKER) (test code = 413) CT, [id number] 16:56:00Unlisted Reason for Exam - Click Yes and Enter Reason Below->NoIs this for enterography?->NoWill this procedure require oral contrast?->No [facility] 1955 Sex: FFINAL [...] Verified Date/Time: 02/04/2021 16:56:27 Reading Location: [facility] Diagnostic Imaging Reading Room - [place] [address] VITAMIN B12 AND [id number] 07:14:11 Test Item Value Reference Range Interpretation Comments VITAMIN B12 187 pg/mL 213-816 L (BEAKER) (test code = 774) FOLATE (BEAKER) 18.90 ng/mL See_Comment [Automated message] (test code = 362) The system which generated this result transmitted ref erence range: >=7.00. The reference range was not used to interpr et this result as normal/abnormal . Business Intelligence Manager ID - LIDA [id number] 07:14:10 Test Item Value Reference Range Interpretation Comments FERRITIN (BEAKER) (test code = 110.79 ng/mL 5.00-275.00 361) Business Intelligence Manager ID - LIDA FIRON, TIBC, % SAT. (WITHOUT FERRITIN)2021-02-04 06:55:40 Test Item Value Reference Range Interpretation Comments IRON (BEAKER) (test code = 547) 75.0 ug/dL 40.0-160.0 TOTAL IRON BINDING CAPACITY 258 ug/dL 250-450 (BEAKER) (test code = 769) IRON % SATURATION (2) (BEAKER) 29 % 20-55 (test code = 2590) Business Intelligence Manager ID Kimberlee HILTON FHEPATIC FUNCTION [id number] 16:57:11 Test Item Value Reference Range Interpretation [...] Specimen slightly (test code = 347) hemolyzed Business Intelligence Manager ID Kimberlee PERAZA LHEMOGLOBIN [id number] 12:28:44 Test Item Value Reference Range Interpretation Comments HEMOGLOBIN A1C (BEAKER) (test code = 5.3 % 4.3-6.1 368) [id number] 09:47:42 Test Item Value Reference Range Interpretation Comments PHOSPHORUS (BEAKER) 3.5 mg/dL 2.3-4.7 Specimen slightly (test code = 604) hemolyzed Business Intelligence Manager ID - KARMEN LBASIC METABOLIC [id number] 09:47:42 Test Item Value Reference Range Interpretation [...] S NOT APPLICABLE FOR DIALYSIS PATIEN TS. Business Intelligence Manager ID - KARMEN [id number] 09:47:41 Test Item Value Reference Range Interpretation Comments MAGNESIUM (BEAKER) 2.2 mg/dL 1.6-2.6 Specimen slightly (test code = 627) hemolyzed Business Intelligence Manager ID - KARMEN LC-REACTIVE [id number] 09:45:23 Test Item Value Reference Range Interpretation Comments C-REACTIVE PROTEIN (BEAKER) (test 3.67 mg/dL 0.00-0.50 H code = 676) Business Intelligence Manager ID - KARMEN LCBC W/PLT COUNT & AUTO [id number] 09:23:38 Test Item Value Reference Range Interpretation [...] code = 2801) RAD, ABDOMEN/KUB, 1 VIEW [id number] 07:28:00Reason for exam:->NGT tube placementShould this be performed at the bedside?->Yes [facility] 1955 Sex: FFINAL REPORT RAD, ABDOMEN/KUB, 1 VIEW AP INDICATION: NGT tube placement COMPARISON: NoneTECHNIQUE: Limited portable radiograph of the lower chest and upper abdomen was acquired for purposes of evaluating tube placement FINDINGS/IMPRESSION:NG side-port overlies the stomach Signed: Rory Quiroga Verified Date/Time: 02/03/2021 07:28:00
[2021-10-01] MEDS ORDERED: ONDANSETRON 4 MG/2 ML VIAL ONE (18:47)
[2021-10-01] MEDS ORDERED: FAMOTIDINE 20 MG/2 ML VIAL IV ONE (18:47)
[2021-10-01 19:24] LABS: Absolute Lymphocytes (CBC) 1.7 K/uL (0.7-4.9); Hematocrit 31.9 % (36.0-45.0); Lymphocytes % 17.3 % (15.3-44.8); MPV 7.6 fL (7.6-11.3); RBC Red Blood Cell Count 3.85 M/uL (3.86-4.86)
[2021-10-01] MEDS ORDERED: HYDROMORPHONE HCL 1 MG/ML INJ ONE ×2 (19:25→21:27)
[2021-10-01] MEDS ORDERED: NA CHLORIDE 0.9% 1,000 ML ONE (19:25)
[2021-10-01 19:30] LABS: Albumin 2.7 g/dL (3.4-5.0); Bilirubin Total 0.8 mg/dL (0.2-1.0); Protein, Total 6.9 g/dL (6.4-8.2)
[2021-10-01 20:38] LABS: Urine Bacteria <20 /HPF (<20); Urine Mucus 2+ /HPF (None Seen); Urine RBC <5 /HPF (None Seen)
--- NOTE | 2021-10-01 20:50 | RAD REPORT ---
EXAM DESCRIPTION: CT - Abdomen Pelvis W Contrast - 10/01/2021 8:36 pm CLINICAL HISTORY: Abdominal pain COMPARISON: September 26, 2021 TECHNIQUE: Computed axial tomography of the abdomen pelvis was obtained. 100 cc Isovue-300 was admin istered intravenously. Oral contrast was not requested which limits evaluation of bowel and appendix All CT scans are performed using dose optimization technique as appropriate and may include automated exposure control or mA/KV adjustment according to patient size. FINDINGS: The liver, spleen, pancreas, adrenals and left kidney are unremarkable. Small right renal cyst. Spleen measures 13 centimeters. Distal ileal stricture. . No bowel obstruction however. There is no evidence of diverticulitis. Moderate umbilical hernia Mild left lower lobe opacity IMPRESSION: Mild left lower lobe opacity may represent pneumonia
--- NOTE | 2021-10-01 20:52 | RAD REPORT ---
EXAM DESCRIPTION: Bhakti Single View10/01/2021 7:48 pm CLINICAL HISTORY: Chest pain COMPARISON: none FINDINGS: Mild left lower lobe opacity. Right lung appears clear. Heart is borderline enlarged What appears to be a right PICC line ascends the right neck IMPRESSION: Mild left lower lobe opacities the Robel oblique mild What appears to be a right PICC line ascends the right neck
[2021-10-01] MEDS ORDERED: CEFTRIAXONE 1000 MG/VIAL ONE (21:27)
[2021-10-01] MEDS ORDERED: AZITHROMYCIN 250 MG TAB ONE (21:40)
[2021-10-01 22:46] LABS: Urine Blood Negative (Negative); Urine Glucose Negative (Negative); Urine Protein 1+ (Negative); Urine Specific Gravity 1.025 (1.005-1.030); Urine pH 5.5 (5.0-7.0)
--- NOTE | 2021-10-01 23:10 | ER ---
Nurse's Notes [facility] Name: Kindra Novoa Age: 66 yrs Sex: Female : 1955 Arrival Date: 10/01/2021 Time: 17:49 Bed 25 Private MD: Moriah Vasquez Diagnosis: Abdominal pain, unspecified;Other pneumonia, unspecified organism Presentation: 10/01 18:09 Chief complaint: Upper abdominal pain that radiates to back x 2 days. Recently hb inpatient for same c/o, hx of Crohn's. Coronavirus screen: At this time, the client does not indicate any symptoms associated with coronavirus-19. Ebola Screen: No symptoms or risks identified at this time. Risk Assessment: Do you want to hurt yourself or someone else? Patient reports no desire to harm self or others. Onset of symptoms was September 30, 2021. 18:09 Method Of Arrival: Wheelchair hb 18:09 Acuity: KAROL 3 hb 18:29 Initial Sepsis Screen: Does the patient meet any 2 criteria? HR > 90 bpm. No. Patient's em6 initial sepsis screen is negative. Does the patient have a suspected source of infection? No. Patient's initial sepsis screen is negative. Historical: - Allergies: 18:11 Ciprofloxacin; hb 18:11 Flagyl; hb 18:11 Latex, Natural Rubber; hb - PMHx: 18:11 bowel obstruction; Crohn's Disease; Hypertension; Depression; Colitis; Hypothyroidism; hb Insulin Resistance; - Social history:: Smoking status: unknown. Screenin:29 Abuse screen: Denies threats or abuse. Nutritional screening: No deficits noted. em6 Tuberculosis screening: No symptoms or risk factors identified. 19:00 Fall Risk No fall in past 12 months (0 pts). No secondary diagnosis (0 pts). No IV (0 ke1 pts). Ambulatory Aid- None/Bed Rest/Nurse Assist (0 pts). Gait- Normal/Bed Rest/Wheelchair (0 pts) Mental Status- Oriented to own ability (0 pts). Total Ferrell Fall Scale indicates. Assessment: 18:24 General: Appears in no apparent distress. uncomfortable, Behavior is cooperative, em6 restless. Pain: Complains of pain in epigastric area Pain radiates to upper back Pain currently is 10 out of 10 on a pain scale. Quality of pain is described as radiating, sharp, Pain began 1 day ago. Is continuous. Neuro: Srivastava Agitation-Sedation Scale (RASS): 0 - Alert and Calm Level of Consciousness is awake, alert, obeys commands, Oriented to person, place, time, situation. Cardiovascular: Heart tones present Capillary refill < 3 seconds Patient's skin is warm and dry. Respiratory: Airway is patent Respiratory effort is even, unlabored, Respiratory pattern is regular, symmetrical, Breath sounds are clear bilaterally. GI: Abdomen is non-distended, Stools are reported to be normal. Last BM was October 01, 2021. Bowel sounds present X 4 quads. Abd is non tender X 4 quads. : No signs and/or symptoms were reported regarding the genitourinary system. EENT: No signs and/or symptoms were reported regarding the EENT system. Derm: No signs and/or symptoms reported regarding the dermatologic system. Musculoskeletal: No signs and/or symptoms reported regarding the musculoskeletal system. Circulation, motion, and sensation intact. 10/02 00:53 Reassessment: pt c/o pain Esa SKINNER notified new orders received pt medicated see bb APR. Vital Signs: 10/01 18:09 BP 118 / 70; Pulse 114; Resp 14; Temp 99.7(O); Pulse Ox 94% on R/A; Weight 107.95 kg; hb Height 5 ft. 1 in. (154.94 cm); Pain 10/10; 18:09 Body Mass Index 44.97 (107.95 kg, 154.94 cm) hb ED Course: 17:49 Patient arrived in ED. mr 17:49 Moriah Vasquez is Private Physician. mr 17:51 Esa Betts PA is PHCP. cp 17:51 Patric Rossi DO is Attending Physician. cp 18:11 Triage completed. hb 18:11 Arm band placed on. hb 18:14 Shay Scruggs, RN is Primary Nurse. jl7 18:30 Patient has correct armband on for positive identification. Bed in low position. Call em6 light in reach. Adult w/ patient. Pulse ox on. NIBP on. 19:05 Accessed PICC line. Blood collected. Clean \T\ dry. Dressing intact. Good blood return. em6 Flushes easily. 19:23 Primary Nurse role handed off by Shay Scruggs RN mw2 19:25 Harman Paul, CHRISTIANO is Primary Nurse. ke1 19:50 XRAY Chest (1 view) In Process Unspecified. EDMS 20:16 Phillip Mccray MD is Attending Physician. cp 20:37 CT Abd/Pelvis - IV Contrast Only In Process Unspecified. EDMS 10/02 00:12 No provider procedures requiring assistance completed. IV discontinued. ke1 Administered Medications: 10/01 19:05 Drug: Pepcid (famotidine) 20 mg Route: IVP; Site: PICC; em6 19:05 Drug: Zofran (Ondansetron) 4 mg Route: IVP; Site: PICC; em6 19:25 Drug: Dilaudid (HYDROmorphone) 1 mg Route: IVP; Site: right upper arm; ke1 19:25 Drug: NS 0.9% 500 ml Route: IV; Rate: bolus; Site: right upper arm; ke1 19:25 Drug: NS 0.9% 500 ml Route: IV; Rate: 125 ml/hr; Site: right upper arm; ke1 21:27 Drug: Rocephin - (cefTRIAXone) 1 grams Route: IVPB; Infused Over: 30 mins; Site: right ke1 upper arm; 21:27 Drug: Dilaudid (HYDROmorphone) 1 mg Route: IVP; Site: right upper arm; ke1 21:32 Drug: Zithromax (azithromycin) 500 mg Route: PO; ke1 10/02 00:13 Follow up: Response: No adverse reaction ke1 00:52 Drug: Dilaudid (HYDROmorphone) 1 mg Route: IVP; Site: PICC; bb 00:53 Follow up: Response: Medication administered at discharge. bb Medication: 10/01 18:30 VIS not applicable for this client. em6 Outcome: 23:09 Discharge ordered by . cp 10/02 00:49 Discharged to home via wheelchair. ke1 Condition: good Discharge instructions given to patient. 01:15 Patient left the ED. ke1 Signatures: Dispatcher [employer] [facility] Ninfa Salazar Brenda, RN RN bb Esa Betts PA PA cp Baxter, Heather, RN Shay Rey, CHRISTIANO RN jl7 VinnieShira ramos mw2 Harman Paul, RN RN ke1 Lissa Castañeda, RN RN em6 Corrections: (The following items were deleted from the chart) 00:24 00:12 Discharged to home via wheelchair, with family, ke1 ke1 00:24 00:12 Condition: good ke1 ke1 00:24 00:12 Discharge instructions given to family, ke1 ke1 00:25 10/01 22:00 Fall Risk Fall in past 12 months (25 points). No secondary diagnosis (0 ke1 pts). IV access (20 points). Ambulatory Aid- None/Bed Rest/Nurse Assist (0 pts). Gait- Normal/Bed Rest/Wheelchair (0 pts) Mental Status- Oriented to own ability (0 pts). Total Ferrell Fall Scale indicates High Risk Score (45 or more points). Fall prevention measures have been instituted. Side Rails Up X 2 Placed Close to Nursing Station 1:1 Attendant Assigned Frequent Obs/Assessments Occuring Family Present and informed to notify staff if the need to leave the bedside As available patient and family educated on Fall Prevention Program and Strategies. ke1
--- NOTE | 2021-10-01 23:10 | EDPHYS ---
Physician Documentation [facility] Name: Kindra Novoa Age: 66 yrs Sex: Female : 1955 Arrival Date: 10/01/2021 Time: 17:49 Bed 25 Private MD: Moriah Vasquez ED Physician Phillip Mccray HPI: 10/01 19:00 This 66 yrs old Female presents to ER via Wheelchair with complaints of cp Abdominal Pain. 19:00 The patient presents with abdominal pain. Onset: The symptoms/episode began/occurred 2 cp day(s) ago. The symptoms radiate to back. Associated signs and symptoms: Pertinent positives: nausea and vomiting, Pertinent negatives: blood in stools, chest pain, constipation, diarrhea, fever, vomiting blood. The symptoms are described as constant. 19:00 The patient has experienced similar episodes in the past, chronically. reports cp patient currently on clear liquid diet in preparation for colon surgery scheduled October 17 by GI at [facility]. Reports stool has been soft. Historical: - Allergies: 18:11 Ciprofloxacin; hb 18:11 Flagyl; hb 18:11 Latex, Natural Rubber; hb - PMHx: 18:11 bowel obstruction; Crohn's Disease; Hypertension; Depression; Colitis; Hypothyroidism; hb Insulin Resistance; - Social history:: Smoking status: unknown. ROS: 19:05 Constitutional: Negative for body aches, chills, fever, poor PO intake. cp 19:05 Eyes: Negative for injury, pain, redness, and discharge. cp 19:05 ENT: Negative for drainage from ear(s), ear pain, sore throat, difficulty swallowing, difficulty handling secretions. 19:05 Cardiovascular: Negative for chest pain, edema, palpitations. 19:05 Respiratory: Negative for cough, shortness of breath, wheezing. 19:05 Abdomen/GI: Positive for abdominal pain, nausea and vomiting, Negative for diarrhea, constipation, hematemesis, black/tarry stool, rectal bleeding. 19:05 Back: Positive for radiated pain. 19:05 : Negative for urinary symptoms. 19:05 Neuro: Negative for dizziness, headache, syncope, weakness. 19:05 All other systems are negative. Exam: 19:15 Constitutional: The patient appears in no acute distress, alert, awake, cp non-diaphoretic, non-toxic, well developed, well nourished, uncomfortable. 19:15 Head/Face: Normocephalic, atraumatic. cp 19:15 Eyes: Periorbital structures: appear normal, Conjunctiva: normal, no exudate, no injection, Sclera: no appreciated abnormality, Lids and lashes: appear normal, bilaterally. 19:15 ENT: External ear(s): are unremarkable, Nose: is normal, Mouth: Lips: moist, Oral mucosa: moist, Posterior pharynx: Airway: no evidence of obstruction, patent. 19:15 Chest/axilla: Inspection: normal. 19:15 Cardiovascular: Rate: tachycardic, Rhythm: regular, Edema: is not appreciated, JVD: is not appreciated. 19:15 Respiratory: the patient does not display signs of respiratory distress, Respirations: normal, no use of accessory muscles, no retractions, labored breathing, is not present, Breath sounds: are clear throughout, no decreased breath sounds, no stridor, no wheezing. 19:15 Abdomen/GI: Inspection: obese Bowel sounds: active, all quadrants, Palpation: soft, in all quadrants, severe abdominal tenderness, in the right upper quadrant and left upper quadrant, rebound tenderness, is not appreciated, voluntary guarding, is elicited in the right upper quadrant and left upper quadrant, involuntary guarding, is not appreciated. 19:15 Back: pain, that is moderate, of the mid back area, CVA tenderness, is absent. 19:15 Skin: cellulitis, is not appreciated, no rash present. 19:15 Neuro: Orientation: to person, place \T\ time. Mentation: is normal, Motor: moves all fours, strength is normal, Sensation: is normal. Vital Signs: 18:09 BP 118 / 70; Pulse 114; Resp 14; Temp 99.7(O); Pulse Ox 94% on R/A; Weight 107.95 kg; hb Height 5 ft. 1 in. (154.94 cm); Pain 10/10; 18:09 Body Mass Index 44.97 (107.95 kg, 154.94 cm) hb MDM: 18:17 Patient medically screened. cp 20:00 Differential diagnosis: bowel obstruction, diverticulitis, non-specific abd pain, cp pancreatitis, Peptic Ulcer Disease, Perf. Duodenal Ulcer, Perf. Gastric Ulcer, Pyelonephritis, Ureterolithiasis, urinary tract infection. 23:08 Data reviewed: vital signs, nurses notes, lab test result(s), radiologic studies, CT cp scan, and as a result, I will discharge patient. Counseling: I had a detailed discussion with the patient and/or guardian regarding: the historical points, exam findings, and any diagnostic results supporting the discharge/admit diagnosis, lab results, radiology results, to return to the emergency department if symptoms worsen or persist or if there are any questions or concerns that arise at home. Response to treatment: Pain and nausea improved. CT abdomen/pelvis negative for obstruction. Patient tolerating po. Will discharge to home for continued monitoring. 10/01 18:33 Order name: CBC with Diff; Complete Time: 19:47 10/01 20:56 Interpretation: Normal except: RBC 3.85; HGB 10.4; HCT 31.9; RDW 15.3; ARIEL% 73.9. 10/01 18:33 Order name: CMP; Complete Time: 19:47 10/01 20:57 Interpretation: Normal except: NA 135; GLUC 119; BUN 23; AST 60; ALT 96; ALK 197; ALB cp 2.7; GLOB 4.2; A/G 0.6. 10/01 18:33 Order name: Lipase; Complete Time: 19:47 10/01 18:33 Order name: Urine Microscopic Only; Complete Time: 20:55 10/01 20:55 Interpretation: Normal except: BILL Cx 1+. 10/01 20:41 Order name: Urine Culture [facility] 10/01 22:46 Order name: Urine Dipstick-Ancillary; Complete Time: 23:08 [facility] 10/01 23:08 Interpretation: Abnormal: UPROT 1+. 10/01 18:53 Order name: XRAY Chest (1 view); Complete Time: 20:55 10/01 20:56 Interpretation: Report review. 10/01 19:48 Order name: CT Abd/Pelvis - IV Contrast Only; Complete Time: 20:55 10/01 18:33 Order name: Labs collected and sent; Complete Time: 19:05 10/01 20:58 Order name: PO challenge; Complete Time: 21:17 cp Administered Medications: 19:05 Drug: Pepcid (famotidine) 20 mg Route: IVP; Site: PICC; em6 19:05 Drug: Zofran (Ondansetron) 4 mg Route: IVP; Site: PICC; em6 19:25 Drug: Dilaudid (HYDROmorphone) 1 mg Route: IVP; Site: right upper arm; ke1 19:25 Drug: NS 0.9% 500 ml Route: IV; Rate: bolus; Site: right upper arm; ke1 19:25 Drug: NS 0.9% 500 ml Route: IV; Rate: 125 ml/hr; Site: right upper arm; ke1 21:27 Drug: Rocephin - (cefTRIAXone) 1 grams Route: IVPB; Infused Over: 30 mins; Site: right ke1 upper arm; 21:27 Drug: Dilaudid (HYDROmorphone) 1 mg Route: IVP; Site: right upper arm; ke1 21:32 Drug: Zithromax (azithromycin) 500 mg Route: PO; ke1 10/02 00:13 Follow up: Response: No adverse reaction ke 00:52 Drug: Dilaudid (HYDROmorphone) 1 mg Route: IVP; Site: PICC; bb 00:53 Follow up: Response: Medication administered at discharge. bb Disposition: 06:39 Co-signature as Attending Physician, Phillip Mccray MD. mh7 Disposition Summary: 10/01/21 23:09 Discharge Ordered Location: Home cp Problem: an ongoing problem cp Symptoms: have improved cp Condition: Stable cp Diagnosis - Abdominal pain, unspecified cp - Other pneumonia, unspecified organism cp Followup: cp - With: Private Physician - When: 1 - 2 days - Reason: Recheck today's complaints Discharge Instructions: - Discharge Summary Sheet cp - Abdominal Pain, Adult cp - Community-Acquired Pneumonia, Adult cp Forms: - Medication Reconciliation Form cp - Thank You Letter cp - Antibiotic Education cp - Prescription Opioid Use cp Prescriptions: - Zofran 4 mg Oral Tablet - take 1 tablet by ORAL route every 12 hours As needed; 20 tablet; Refills: 0, cp Product Selection Permitted - Zithromax Z-Stephon 250 mg Oral Tablet - take 1 tablet by ORAL route as directed for 5 days Day 1 - take two (2) tablets cp one time. Day 2, 3, 4 , 5 take one (1) tablet once daily.; 6 tablet; Refills: 0, Product Selection Permitted Signatures: Dispatcher [employer] Estephania Padilla, RN RN Esa Espino PA PA cp Baxter, Heather RN RN Phillip Nelson MD MD mh7 Harman Paul RN RN ke1 Lissa Castañeda RN RN em6
[2021-10-02] MEDS ORDERED: HYDROMORPHONE HCL 1 MG/ML INJ ONE (00:50)
[2021-10-02 02:05] VITALS: BP 118/70; TEMP 99.7; O2SAT 94
== END 2021-10-02 01:15 | disposition home or self-care (01) ==
LOC: ER 17:21
DX: R10.10 Upper abdominal pain, unspecified (principal); J18.8 Other pneumonia, unspecified organism; K50.90 Crohn's disease, unspecified, without complications; I10 Essential (primary) hypertension; Z88.1 Allergy status to other antibiotic agents; Z88.8 Allergy status to other drugs, medicaments and biological substances; Z91.040 Latex allergy status; Z91.048 Other nonmedicinal substance allergy status
CPT/HCPCS: 87088; 85025; 87086; 36415; 83690; 80053; 74177; 71045; Q9967; J1170 ×3; J7030; J2405; 81003; 81015

== ENCOUNTER 2021-11-29 13:44 | Inpatient (IN) | payer OTHER ==
--- OUTSIDE RECORDS SUMMARY | 2021-11-29 13:54 | XMS REPORT | Continuity of Care Document ---
:1955 Author Organization [facility] t Address [address] [place] [address] Care Team Providers Name Role Phone Kael MEADOWS MD, Hung Kendrick Primary Care Physician [phone] HIRO JENKINS Attending Clinician Unavailable Alma Delia PARSONS, Antoni Chaparro Attending Clinician [phone] Alhaji PARSONS, Carin Clement Attending Clinician Mirian Gomez MD Attending Clinician Prachi Morgan MD Attending Clinician Samina Ladd MD Attending Clinician SAMINA LADD Attending Clinician Unavailable Kevan Noe MD Attending Clinician Radha Parnell Attending Clinician Samantha PARSONS, Caio Fortune Attending Clinician Cooper Chand CRNA Attending Clinician [phone] Redd PARSONS, Charlie Bonilla Attending Clinician Emil PARSONS, Hiro Attending Clinician JENKINS, HIRO Attending Clinician Unavailable Daphne Little DO Attending Clinician [phone] Adam PARSONS, Rashida Enriquez Attending Clinician Izzy PARSONS, Tana Park Attending Clinician [phone] TANA MAGANA Attending Clinician Unavailable Mohsen PARSONS, Lesa Stout Attending Clinician [phone] Padmini PARSONS, Melanie Attending Clinician Pretty Funes MD Attending Clinician PRETTY FUNES Attending Clinician Unavailable JOEL LOZANO Attending Clinician Unavailable Lance Toussaint MD Attending Clinician Bob Larson MD Attending Clinician Sandra Perez MD Attending Clinician SANDRA PEREZ Attending Clinician Unavailable Joel Lozano MD Attending Clinician Haven Vann MD Attending Clinician Laura Regan MD Attending Clinician Obinna Briscoe MD Attending Clinician OBINNA BRISCOE Attending Clinician Unavailable Ace Clemons MD Attending Clinician Javier aMy MA Attending Clinician Unavailable JENKINS, HIRO Admitting Clinician Unavailable CAIRN AMAYA Admitting Clinician Unavailable RASHIDA PEÑA Admitting Clinician Unavailable LESA SINGH Admitting Clinician Unavailable LANCE TOUSSAINT Admitting Clinician Unavailable HAVEN VANN Admitting Clinician Unavailable Payers Payer Name Policy Type Policy Number Effective Date Expiration Date Blair ruth MEDICARE A B [id number] 2021 00:00:00 [facility]AY [facility] [id number] 2021 00:00:00 PPO/EPO - BCBS [id number] MEDICARE PART A [id number] \\T\\ B - MEDICARE [facility] [id number] 2021 [facility] 00:00:00 BCBS PPO POS EPO [id number] 2010 CHOICE 00:00:00 CVCP-BCBS [id number] Problems Condition Condition Condition Status Onset Resolution Last Treating Co mments Source Name Details Category Date Date Treatment Clinician Date (HFpEF) (HFpEF) Disease Active [facility]18 [facility] failure failure 00:00: Medical with with 00 Center preserved preserved ejection ejection fraction fraction Sinus Sinus Disease Active [facility] tachycardi tachycardi 10-18 [facility] a a 00:00: Medical 00 Center Bacteremia Bacteremia Disease Active [facility] due to due to 10-18 [facility] Enterobact Enterobact 00:00: Me dical er species er species 00 Ce nter Compressio Compressio Disease Active [facility] n fracture n fracture 10-18 [facility] of T7 of T7 00:00: Medical vertebra vertebra 00 Center NSTEMI NSTEMI Disease Active [facility] (non-ST (non-ST 10-18 [facility] elevated elevated 00:00: Medica l myocardial myocardial 00 Ce nter infarction infarction ) ) Postoperat Postoperat Disease Active [facility] misael anemia misael anemia 10-18 [facility] 00:00: Medical 00 Center Atelectasi Atelectasi Disease Active [facility] s s 10-18 [facility] 00:[facility] Center Immunosupp Immunosupp Disease Active [facility] ression ression 10-18 [facility] due to due to 00:00: Medical chronic chronic 00 Center steroid steroid use use Nausea Nausea Disease Active 2022-[address] [facility] 8-31 [facility] 00[facility] 00 Center Abdominal Abdominal Disease Active [facility] pain pain 8-31 [facility] 00:[facility] 00 Center SBO (small SBO (small Disease Active [facility] bowel bowel 8-17 [facility] obstructio obstructio 00:00: Me dical n) n) 00 Center Crohn's Crohn's Disease Active [facility] disease disease 6-28 [facility] 00:00: Medical 00 Center Crohn's Crohn's Disease Active 2020-02 [facility] disease disease 2-22 College (HCCode) (HCCode) 00:00: of 00 Medicin e Small Small Disease Active 2020-[address] [facility] bowel bowel 2-19 [facility] obstructio obstructio 00:00: Me dical n n 00 Center Hypothyroi Hypothyroi Disease Active [facility] dism dism 6-25 [facility] 00:[facility]: Medical 00 Center Essential Essential Disease Active Met hodi hypertensi hypertensi 8-13 [facility] 00:00: Hospita 00 l Chest pain Chest pain Disease Active M ethodi 2-02 st 00:00: Hospita 00 l 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:00: Hospita involving involving 00 l [place] 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 pectoris SOB SOB Disease Active [facility] (shortness (shortness 2-02 st of breath) of breath) 00:00: Ho spita 00 l Aortic Aortic Disease Active [facility] valve valve 2-02 st disorder disorder 00:00: Hospit a 00 l Allergies, Adverse Reactions, Alerts Allergy Allergy Status Severity Reaction(s) Onset Inactive Treating Comm ents Source Name Type Date Date Clinician Buspiron Drug Active [facility] e Allergy 4-01 [facility] Ciproflo Drug Active [facility] xacin Allergy 4-01 [facility] 00:[facility]: Medical 00 [place] Metronid Drug Active [facility] azole Allergy 4-01 [facility] Hcl 00:00: Medical 00 Center BUSPIRON Allergy Active [facility] E 4-01 [facility] Center CIPROFLO Allergy Active 2022-[address] [facility] XACIN 4-01 [facility] 00:[facility] Medical 00 Center FUROSEMI Allergy Active [facility] DE 4- [facility] 00:[facility] Medical 00 Center METRONID Allergy Active [facility] AZOLE 4- [facility] HCL 00:00: Medical 00 Center BUSPIRON Allergy Active [facility] HCL 4- 00:00: 00 METRONID Allergy Active Low Itching [facility] AZOLE 4- 00:00: 00 LATEX Allergy Active Low Itching 2020-[address] [facility] 2- [facility] 00:[facility]: Medical 00 Center Latex Propensi Active Itching 2020-[address] [facility] ty to 04-06 [facility] adverse 00:00: Medical reaction 00 [place] s Latex Propensi Active Rash 2020-02 [facility] ty to 03-28 College adverse 00:00: of reaction 00 Medicin s to e substanc e Latex, Propensi Active Itching [facility]i Natural ty to st Rubber adverse Hospita reaction l s to drug NO KNOWN Allergy Active [facility] ALL[facility] S Family History Family Member Diagnosis Comments Start Date Stop Date Source Natural father Cancer [facility] Natural mother Heart disease [facility] Social History Social Habit Start Date Stop Date Quantity Comments Source History SDSD [facility] Non-Med Medical Center History [facility] Alcohol Std Drinks Hospit al History [facility] Alcohol Binge Hospital Exposure to 2021-10-07 2021-10-[address] [facility] SARS-CoV-2 (event) 00:00:00 01:50:00 Medica l Center History [facility] 2021-10-17 2021-10-[address] [facility] Transport Med 00:00:00 00:00:[address] History [facility] 2021-10-17 2021-10-[address] [facility] Housing Unable to 00:00:00 00:00:00 Medical Center Pay History [facility] 2021-10-17 2021-10-[address] [facility] Housing Homeless 00:00:00 00:00:00 Medical Center Last Year History [facility] 2021-10-03 2021-10-[address] [facility] Housing Places 00:00:00 00:00:00 Medical Ce nter Lived Cigarettes smoked 2021-08-27 2021-08-27 [facility] current (pack per 00:00:00 00:00:00 of ) - Reported Tobacco use and 2021-02-03 2021-02-[address] [facility] exposure 00:00:00 00:00:00 Medical Center Alcohol intake 2018-03-19 2018-03-19 Current [facility] 00:00:00 00:00:00 non-drinker of Hospital alcohol (finding) History SDOH 2018-03-19 2018-03-19 1 [facility] Alcohol Frequency 00:00:00 00:00:00 Hospita l History of tobacco 1995-02-04 Cigarette Smoker [facility] use 00:00:00 of Medicine [birth year] [facility] 00:00:00 00:00:00 Hospital Smoking Status Start Date Stop Date Source Former smoker 2021-02-03 00:00:00 2021-02-03 00:00:[address] [facility] Never smoked tobacco [facility] ege of Medicine Medications Ordered Filled Start Stop Current Ordering Indication Dosage Frequency Signature Comments Components Source Medication Medication Date Date Medication? Clinician (SIG) Name Name predniSONE 2021- 5mg QD Take [address] [facility] (DELTASONE) 9-15 09-25 tablet (5 [facility] 5 MG tablet 00:00: 23:59 mg total) Medical 00 :00 by mouth Center daily for 10 days. buPROPion Yes 75mg QD Take [address] (WELLBUTRIN 9-14 by mouth Luke s ) 75 MG 17:13: daily . Medical tablet 25 Center levothyroxi Yes 25ug Take [address] [facility] ne 9-14 mcg by [facility] (SYNTHROID, 17:13: mouth Medic al LEVOTHROID) 25 Every Center 25 MCG morning on tablet an empty stomach. ondansetron Yes 4mg Take [address] (ZOFRAN) 4 9-14 by mouth [facility] MG tablet 17:13: every 6 Medic al 25 (six) Center hours as needed for Nausea. sertraline Yes 100mg QD Take [address] (ZOLOFT) 9-14 mg by [facility] 100 MG 17:13: mouth Medical tablet 25 nightly . Center pantoprazol Yes 40mg QD Take [address] [facility] e 9-14 by mouth [facility] (PROTONIX) 17:13: daily. Medic al 40 MG 25 Center tablet atorvastati Yes 10mg QD Take [address] [facility] n (LIPITOR) 9-14 by mouth Luke s 10 MG 17:13: daily. Medical tablet 25 Center inFLIXimab Yes Inject [facility] (Remicade) -14 intravenou Jose es 100 mg 17:13: sly every Medica l injection 25 30 Center (thirty) days. ampicillin Yes 2g Inject [address] (OMNIPEN) 2 -14 intravenou [facility] g in NS 00:00: sly every Medic al 0.9% 100 mL 00 6 (six) Cente r (V2B) IVPB hours. cefTRIAXone Yes 2g Inject [address] (ROCEPHIN) 10-30 intravenou Jose es 2 g in 00:00: sly every Medica l sodium 00 12 Center chloride (twelve) 0.9 % (NS) hours. 100 mL (V2B) IVPB metoprolol 2022- Yes 25mg Q.[id number] Take [address] tartrate 10-30- [id number] tablet (25 [facility] (LOPRESSOR) 00:00: 23:59 3D mg total) Medical 25 MG 00 :00 by mouth 3 Center tablet (three) times daily. ergocalcife 2021- No 5000U QD Take 5,[address] [facility] rol 8-31 08-31 Units by [facility] (Vitamin 12:28: 00:00 mouth Medical D2) 1,250 51 :00 daily. Center mcg (50,000 unit) capsule ferrous 2021- No 325mg Q.5D Take [address] sulfate 325 8-31 08-31 mg by [facility] (65 FE) MG 12:28: 00:00 mouth 2 Med ical tablet 45 :00 (two) Center times daily. sertraline 2021- No 50mg QD Take [address] (ZOLOFT) 50 8-31 08-31 by mouth Jose es MG tablet 12:28: 00:00 daily. Medic al 35 :00 Center lisinopriL Yes 20mg QD Take 1 [facility] (PRINIVIL,Z 8-24 tablet (20 [facility] ESTRIL) 20 00:00: mg total) Me dical MG tablet 00 by mouth Center daily. furosemide 0 Yes 40mg QD Take 1 [facility] (LASIX) 40 8-24 tablet (40 Jose es MG tablet 00:00: mg total) Med ical 00 by mouth Center daily. lisinopriL 0 2021- No 5mg QD Take [address] (PRINIVIL,Z 10-08 by mouth Jose es ESTRIL) 5 15:11: 00:00 daily. Medic al MG tablet 27 :00 Center metoprolol 0 2021- No 50mg Q.5D Take [address] succinate 10-08 by mouth 2 Jose es (TOPROL-XL) 15:11: 00:00 (two) Medi mook 50 MG 24 hr 27 :00 times Center tablet daily. benzonatate Yes 100mg Take [address] [facility] (TESSALON) 8-23 capsule [facility] 100 MG 00:00: (100 mg Medical capsule 00 total) by Center mouth 3 (three) times daily as needed for Cough. hyoscyamine Yes 125ug Take [address] [facility] (LEVSIN/SL) 8-23 tablet [facility] 0.125 mg SL 00:00: (125 mcg Me dical tablet 00 total) by Center mouth every 6 (six) hours as needed for Cramping. albuterol-i Yes 2{puff} Inhale [address] [facility] pratropium 8-23 puffs by [facility] (COMBIVENT 00:00: mouth via De dical RESPIMAT) 00 inhaler Center 20-100 every 4 mcg/actuati (four) on Mist hours as inhaler needed for Wheezing or Shortness of Breath. budesonide- 0 Yes 2{puff} Q.5D Inhale [address] [facility] formoteroL 8-23 puffs by [facility] (SYMBICORT) 00:00: mouth via M edical 160-4.5 00 inhaler 2 Center mcg/actuati (two) on inhaler times daily. HYDROcodone Yes 1{tbl} Take [address] -acetaminop 8-23 tablet by Jose es hen (NORCO 00:00: mouth Medica l 10-325) 00 every 6 Center 10-325 mg (six) per tablet hours as needed for Pain. Max Daily Amount: 4 tablets metoprolol 0 2021- No 100mg Q.5D Take [address] [facility] succinate 10-08 09-14 tablet [facility] (TOPROL-XL) 00:00: 00:00 (100 mg Me dical 100 MG 24 00 :00 total) by Cente r hr tablet mouth 2 (two) times daily. atorvastati Yes 10mg Take 10 mg [facility] n (LIPITOR) 7-12 by mouth Eric ege 10 MG 09:06: daily. of tablet 53 Medicin e Cetirizine Yes Take 1 [facility] (ZYRTEC 7-12 Chew Tab Eric ege ALLERGY) 10 09:06: by mouth of MG CAPS 53 daily. Medicin e hyoscyamine Yes .125mg Take 0.125 Ran (ANASPAZ, 7-12 mg by [facility]) 09:06: mouth of 0.125 MG 53 every 4 Medicin tablet hours as e needed for Cramping. metoprolol Yes 50mg Take 50 mg [facility] (TOPROL-XL) 7-12 by mouth Eric ege 50 MG XL 09:06: daily. of tablet 53 Medicin e hyoscyamine 0 Yes .125mg Take 0.125 [facility] (ANASPAZ, 7-12 mg by [facility]) 09:06: mouth of 0.125 MG 53 every 4 Medicin tablet hours as e needed for Cramping. gatifloxaci Yes 1[drp] Place 1 [facility] n (ZYMAXID) 7-12 Drop into Col lege 0.5 % 09:06: both eyes of ophthalmic 53 four times Med icin solution daily. e Continue Yes Per [facility] current 6 Parenteral [facility] parenteral 00:00: nutrition Me dical nutrition 00 formulatio Cent er IV infusion n. ondansetron 2021- No 4mg Take [address] [facility] (ZOFRAN-ODT 08-15 07-07 tablet (4 [facility] ) 4 MG 00:00: 23:59 mg total) Medic al disintegrat 00 :00 by mouth Cent er ing tablet every 8 (eight) hours as needed for Nausea for up to 7 days. atorvastati 2021-0 Yes 10mg Take 10 mg [facility] n (LIPITOR) 6-28 by mouth Eric ege 10 MG 08:19: daily. of tablet 36 Medicin e Cetirizine 2021-0 Yes Take 1 [facility] (ZYRTEC 6-28 Chew Tab Eric ege ALLERGY) 10 08:19: by mouth of MG CAPS 36 daily. Medicin e hyoscyamine 2021-0 Yes .125mg Take 0.125 Ran (ANASPAZ, 6-28 mg by [place] [facility]) 08:19: mouth of 0.125 MG 36 every 4 Medicin tablet hours as e needed for Cramping. metoprolol 2021-0 Yes 50mg Take 50 mg [facility] (TOPROL-XL) 6-28 by mouth Eric ege 50 MG XL 08:19: daily. of tablet 36 Medicin e pantoprazol 2021-0 Yes 40mg Take 40 mg [facility] e 6-28 by mouth [place] (PROTONIX) 08:19: daily. of 40 MG 36 Medicin tablet e hyoscyamine 2021-0 Yes .125mg Take 0.125 [facility] (LEVSIN) 6-28 mg by [place] 0.125 MG 08:19: mouth of tablet 36 every 4 Medicin hours as e needed for Cramping. gatifloxaci 2021-0 Yes 1[drp] Place 1 [facility] (ZYMAXID) 6-28 Drop into Col lege 0.5 % 08:19: both eyes of ophthalmic 36 four times Med icin solution daily. e pantoprazol 2021-0 Yes 40mg Take 40 mg [facility] e 6-28 by mouth [place] (PROTONIX) 08:19: daily. of 40 MG 36 Medicin tablet e hyoscyamine 2021-0 Yes .125mg Take 0.125 Ran (ANASPAZ, 5-12 mg by [place] [facility]) 14:22: mouth of 0.125 MG 31 every 4 Medicin tablet hours as e needed for Cramping. metoprolol 2-0 Yes 50mg Take 50 mg [facility] (TOPROL-XL) 5-12 by mouth Eric ege 50 MG XL 14:22: daily. of tablet 31 Medicin e pantoprazol Yes 40mg Take 40 mg Ran e 5-12 by mouth [place] (PROTONIX) 14:22: daily. of 40 MG 31 [...] Take by Sixto adams OR 03-29 mouth. [place] 12:06: 00:00 of 07 :00 Medicin e MINERAL OIL 2021- No Take by Sixto adams OR 03-29 mouth. [place] 12:06: 00:00 of 07 :00 Medicin e Mesalamine 2021- No Take by Arbela herman (PENTASA) 03-29 mouth. [place] 500 MG CPCR 12:04: 00:00 of 57 :00 Medicin e Mesalamine 2021- No Take by Arbela herman (PENTASA) 03-29 mouth. [place] 500 MG CPCR 12:04: 00:00 of 57 [...] 2021- No 5mg Take 5 mg [facility] [place] (DULCOLAX) 03-29 by mouth Eric ege 5 MG EC 12:03: 00:00 daily as of tablet 26 :00 needed for Medicin Constipati e on. Lactobacill 2021- No Take by Sixto adams 03-29 mouth. [place] (ACIDOPHILU 12:03: 00:00 of S OR) 05 :00 Medicin e Cholecalcif 2021-0 Yes Take by Arbela herman alex 2-11 mouth. [place] (VITAMIN D) 11:46: of 125 MCG 58 Medicin (5000 UT) e CAPS metFORMIN 2021-0 Yes Take 1 Ran 500 MG TB24 2-11 capsule by Co llege 11:46: mouth of 58 daily. Medicin e Cholecalcif 2021-0 Yes Take by Arbela herman alex 2-11 mouth. [place] (VITAMIN D) 11:46: of 125 MCG 58 Medicin (5000 UT) e CAPS metFORMIN 2021-0 Yes Take 1 [facility] 500 MG TB24 2-11 capsule by Co llege 11:46: mouth of 58 daily. Medicin e Cholecalcif 2021-0 Yes Take by Arbela herman alex 2-11 mouth. [place] (VITAMIN D) 11:46: of 125 MCG 58 Medicin (5000 UT) e CAPS metFORMIN 2021-0 Yes Take 1 [facility] 500 MG TB24 2-11 capsule by Co llege 11:46: mouth of 58 daily. Medicin e Cholecalcif 2021-0 Yes Take by Arbela herman alex 2-11 mouth. [place] (VITAMIN D) 11:46: of 125 MCG 58 Medicin (5000 UT) e CAPS Cholecalcif 2021-0 Yes Take by Arbela herman alex 2-11 mouth. [place] (VITAMIN D) 11:46: of 125 MCG 58 Medicin (5000 UT) e CAPS atorvastati 2021-0 Yes 10mg Take 10 mg [facility] n (LIPITOR) 2-11 by mouth Eric ege 10 MG 11:46: daily. of tablet 58 Medicin e Cetirizine 2021-0 Yes Take 1 [facility] (ZYRTEC 2-11 Chew Tab Eric ege ALLERGY) 10 11:46: by mouth of MG CAPS 58 daily. Medicin e hyoscyamine 2021-0 Yes .125mg Take 0.125 [facility] (LEVSIN) 2-11 mg by [place] 0.125 MG 11:46: mouth of tablet 58 every 4 Medicin hours as e needed for Cramping. metFORMIN 2021-0 Yes Take 1 [facility] 500 MG TB24 2-11 capsule by Co llege 11:46: mouth of 58 daily. Medicin e metoprolol 0 Yes 50mg Take 50 mg [facility] (TOPROL-XL) 2-11 by mouth Eric ege 50 MG XL 11:46: daily. of tablet 58 Medicin e Acetaminoph 0 Yes Take by Arbela herman en (TYLENOL 2-11 mouth. [facility]) 11:29: Take by of 160 MG/5ML 58 mouth q 4 Medi renea SUSP hours prn e Acetaminoph 2021-0 Yes Take by Arbela herman en (TYLENOL 2-11 mouth. [facility]) 11:29: Take by of 160 MG/5ML 58 mouth q 4 Medi renea SUSP hours prn e Acetaminoph 2021-0 Yes Take by Arbela herman en (TYLENOL 2-11 mouth. [facility]) 11:29: Take by of 160 MG/5ML 58 mouth q 4 Medi renea SUSP hours prn e Acetaminoph 2021-0 Yes Take by Arbela herman en (TYLENOL 2-11 mouth. [facility]) 11:29: Take by of 160 MG/5ML 58 mouth q 4 Medi renea SUSP hours prn e predniSONE 2021-0 Yes [id number] 20mg Take 1 [facility] (DELTASONE) 2-11 Tablet by Col lege 20 MG 00:00: mouth of tablet 00 daily. Medicin Taper by 5 e mg every week. predniSONE 2021-0 Yes [id number] Take 20 mg [facility] (DELTASONE) 2-11 po qd. Colleg e 5 MG tablet 00:00: Start of 00 tapering Medicin off by 5 e mg every 7 days after the 04/08/21. predniSONE 2022-0 Yes [id number] 20mg Take 1 [facility] (DELTASONE) 2-11 Tablet by Col [facility] 20 MG 00:00: mouth of tablet 00 daily. Medicin Taper by 5 e mg every week. predniSONE 2022-0 Yes [id number] Take 20 mg [facility] (DELTASONE) 2-11 po qd. Colleg e 5 MG tablet 00:00: Start of 00 tapering Medicin off by 5 e mg every 7 days after the 04/08/21. predniSONE 2022-0 Yes [id number] 20mg Take 1 [facility] (DELTASONE) 2-11 Tablet by Col lege 20 MG 00:00: mouth of tablet 00 daily. Medicin Taper by 5 e mg every week. predniSONE Yes [id number] Take 20 mg [facility] (DELTASONE) 2-11 po qd. Colleg e 5 MG tablet 00:00: Start of 00 tapering Medicin off by 5 e mg every 7 days after the 04/08/21. predniSONE 0 Yes [id number] 20mg Take 1 [facility] (DELTASONE) 2-11 Tablet by Col lege 20 MG 00:00: mouth of tablet 00 daily. Medicin Taper by 5 e mg every week. cyanocobala 2020-02- No 1000ug Q7D Inject [address] [facility] min 01-01 mL (1,000 [facility] (VITAMIN 00:00: 23:59 mcg total) Me dical B-12) 1,000 00 :00 intramuscu Ce nter mcg/mL larly once injection a week for 3 days. predniSONE 2020-02- No 40mg QD Take [address] [facility] (DELTASONE) 04-10 09-14 tablets Luke s 10 MG 00:00: 00:00 (40 mg Medical tablet 00 :00 total) by Center mouth daily Decrease by 5 mg every . See your discharge instructio ns.. predniSONE 2020-02 No 20mg QD Take [address] (DELTASONE) 04-09-22 by mouth Jose es 20 MG 15:29: 00:00 daily. Medical tablet 16 :00 Center mesalamine 2020-02- No 500mg Q.[id number] Take [address] (PENTASA) 2- 12- [id number] mg by [facility] 500 MG CR 14:28: 00:00 3D mouth 3 Medi mook capsule 34 :00 (three) Center times daily . adalimumab 2020-02- No 40mg Inject [address] (Humira) 40 2- 12-22 mg [facility] mg/0.8 mL 08:41: 00:00 subcutaneo M edical injection 25 :00 usly once. Cent er sulfamethox 2020-02- No 160mg{t Q.[id number] Take [address] azole-trime - 08-17 rimetho [id number] tablet [facility] thoprim 00:00: 00:00 prim} 3W (160 mg of Me dical (BACTRIM 00 :00 trimethopr Cente r DS) 800-160 im total) mg per by mouth 3 tablet (three) times a week MON/THU/ I Antibiotic s to prevent infection. loperamide 2020-02- No 2mg Take [address] [facility] (IMODIUM) 2 04-09 capsule (2 L ukes mg capsule 00:00: 23:59 mg total) M edical 00 :00 by mouth 4 Center (four) times daily as needed for Diarrhea for up to 10 days. MINERAL OIL 2020-02 Yes Take by Arbela herman OR 2-10 mouth. College 09:20: of 34 Medicin e Cholecalcif 2020-02 Yes Take by Arbela herman alex 2-10 mouth. [place] (VITAMIN D) 09:20: of 125 MCG 34 Medicin (5000 UT) e CAPS ferrous 2020-02 Yes 325mg Take 325 [facility] sulfate 2-10 mg by [place] (FEROSUL) 09:19: mouth of 325 (65 Fe) 41 daily. Medici n MG tablet e Mesalamine 2020-02 Yes Take by [facility] (PENTASA) 2-10 mouth. [place] 500 MG CPCR 09:19: of 41 Medicin e predniSONE 2020-02 Yes [facility] (DELTASONE) 1-26 College 20 MG 00:00: of tablet 00 Medicin e predniSONE 2020-02- No 20mg Take 20 mg [facility] (DELTASONE) -13 04-11 by mouth Col lege 20 MG 00:00: 00:00 daily. of tablet 00 :00 Medicin e predniSONE 2020-02- No 20mg Take 20 mg [facility] (DELTASONE) -13 04-11 by mouth Col [facility]ge 20 MG 00:00: [...] Take 40 mg Ran e 12 by [facility] (PROTONIX) 00:00: daily. of 40 MG 00 Medicin tablet e pantoprazol 2020-02- No 40mg Take 40 mg Ran e 02-27 by [facility] (PROTONIX) 00:00: 00:00 daily. of 40 MG 00 :00 Medicin tablet e pantoprazol 2020-02- No 40mg Take 40 mg Ran e 02-27 by [facility] (PROTONIX) 00:00: 00:00 daily. of 40 MG 00 :00 Medicin tablet e lisinopril 2020-02 Yes 1 po daily [facility] (PRINIVIL, 02-23 in [facility]) 5 00:00: morning of MG tablet 00 Medicin e lisinopril 2020-02 Yes 1 po daily [facility] (PRINIVIL, 02-23 in [facility]) 5 00:00: morning of MG tablet 00 Medicin e lisinopril 2020-02 Yes 1 po daily [facility] (PRINIVIL, 02-23 in [facility]) 5 00:00: morning of MG tablet 00 Medicin e lisinopril 2020-02 Yes 1 po daily [facility] (PRINIVIL, 02-23 in [facility]) 5 00:00: morning of MG tablet 00 Medicin e lisinopril 2020-02 Yes 1 po daily [facility] (PRINIVIL, 02-23 in [facility]) 5 00:00: morning of MG tablet 00 Medicin e lisinopril 2020-02 Yes 1 po daily [facility] (PRINIVIL, 02-23 in [facility]) 5 00:00: morning of MG tablet 00 Medicin e sertraline 2020-02 Yes [facility] (ZOLOFT) 02-17 College 100 MG 00:00: of tablet 00 Medicin e sertraline 2020-02 Yes Ran (ZOLOFT) 02-17 [place] 100 MG 00:00: of tablet 00 Medicin e buPROPion 2020-02 Yes TAKE 2 [facility] (WELLBUTRIN 1-02 TABLETS BY Co [...] EVENING sertraline 2020-02 Yes Ran (ZOLOFT) 1- [place] 100 MG 00:00: of tablet 00 Medicin e buPROPion 2020-02 Yes TAKE 2 [facility] (WELLBUTRIN 1-02 TABLETS BY Co llege ) 75 MG 00:00: MOUTH of tablet 00 EVERY Medicin MORNING e AND 1 TABLET BY MOUTH EVERY EVENING sertraline 2020-02 Yes [facility] (ZOLOFT) 1-02 [facility] 100 MG 00:00: of tablet 00 Medicin e buPROPion 2020-02 Yes TAKE 2 [facility] (WELLBUTRIN 1-02 TABLETS BY Co llege ) 75 MG 00:00: MOUTH of tablet 00 EVERY Medicin MORNING e AND 1 TABLET BY MOUTH EVERY EVENING sertraline 2020-02 Yes [facility] (ZOLOFT) 1-02 [facility] 100 MG 00:00: of tablet 00 Medicin e buPROPion 2020-02 Yes TAKE 2 [facility] (WELLBUTRIN 1-02 TABLETS BY Co llege ) 75 MG 00:00: MOUTH of tablet 00 EVERY Medicin MORNING e AND 1 TABLET BY MOUTH EVERY EVENING sertraline 2020-02 Yes [facility] (ZOLOFT) 1-02 [place] 100 MG 00:00: of tablet 00 Medicin e buPROPion 2020-02 Yes TAKE 2 [facility] (WELLBUTRIN 1-02 TABLETS BY [facility] ) 75 MG 00:00: MOUTH of tablet 00 EVERY Medicin MORNING e AND 1 TABLET BY MOUTH EVERY EVENING Adalimumab 2020-02 Yes [facility] (HUMIRA 0-25 [place] PEN) 40 00:00: of MG/0.8ML 00 Medicin injection e Adalimumab 2020-02- No [facility] (HUMIRA 0-25 -14 [place] PEN) 40 00:00: 00:00 of MG/0.8ML 00 :00 Medicin injection e levothyroxi Yes levothyrox [facility] 09-17 [facility] 25 mcg [place] (SYNTHROID) 00:00: tablet of 25 MCG 00 TAKE 1 Medicin tablet TABLET BY e MOUTH DAILY IN THE MORNING WITH JUST A SIP OF WATER. WAIT 30 MINUTES BEFORE EATING OR DRINKING ANYTHING levothyroxi Yes levothyrox [facility] 09-17 [facility] 25 mcg [place] (SYNTHROID) 00:00: tablet of 25 MCG 00 TAKE 1 Medicin tablet TABLET BY e MOUTH DAILY IN THE MORNING WITH JUST A SIP OF WATER. WAIT 30 MINUTES BEFORE EATING OR DRINKING ANYTHING levothyroxi Yes levothyrox [facility] 09-17 [facility] 25 mcg [place] (SYNTHROID) 00:00: tablet of 25 MCG 00 TAKE 1 Medicin tablet TABLET BY e MOUTH DAILY IN THE MORNING WITH JUST A SIP OF WATER. WAIT 30 MINUTES BEFORE EATING OR DRINKING ANYTHING levothyroxi Yes levothyrox [facility] 09-17 [facility] 25 mcg [place] (SYNTHROID) 00:00: tablet of 25 MCG 00 TAKE 1 Medicin tablet TABLET BY e MOUTH DAILY IN THE MORNING WITH JUST A SIP OF WATER. WAIT 30 MINUTES BEFORE EATING OR DRINKING ANYTHING levothyroxi Yes levothyrox [facility] 09-17 ine 25 mcg [place] (SYNTHROID) 00:00: tablet of 25 MCG 00 TAKE 1 Medicin tablet TABLET BY e MOUTH DAILY IN THE MORNING WITH JUST A SIP OF WATER. WAIT 30 MINUTES BEFORE EATING OR DRINKING ANYTHING levothyroxi 0 Yes levothyrox [facility] ne 8-02 ine 25 mcg [employer] (SYNTHROID) 00:00: tablet of 25 MCG 00 TAKE 1 Medicin tablet TABLET BY e MOUTH DAILY IN THE MORNING WITH JUST A SIP OF WATER. WAIT 30 MINUTES BEFORE EATING OR DRINKING ANYTHING lisinopriL- 2020-0 Yes [id number] 1{tbl} QD TAKE 1 [facility] [facility]:00: [facility]OUTH [facility] (PRINZIDE) 00 DAILY l 10-12.5 mg per tablet metoprolol 0 Yes [id number] TAKE 1 [facility] tartrate 7-29 TABLET(50 st (LOPRESSOR) 00:00: MG) BY [facility] 50 mg 00 MOUTH l tablet TWICE DAILY lisinopriL- 0 Yes [id number] 1{tbl} QD TAKE 1 [facility] hydrochloro 7-[address] thiazide 00:00: MOUTH [facility] (PRINZIDE) 00 DAILY l 10-12.5 mg per tablet metoprolol 0 Yes [id number] TAKE 1 [facility] tartrate 7-29 TABLET(50 st (LOPRESSOR) 00:00: MG) BY [facility] 50 mg 00 MOUTH l tablet TWICE DAILY lisinopriL- 0 Yes [id number] 1{tbl} QD TAKE 1 [facility] hydrochloro 7-[address] thiazide 00:00: MOUTH [facility] (PRINZIDE) 00 DAILY l 10-12.5 mg per tablet metoprolol 2020-0 Yes [id number] TAKE 1 [facility] tartrate 7-29 TABLET(50 st (LOPRESSOR) 00:00: MG) BY [facility] 50 mg 00 MOUTH l tablet TWICE DAILY metoprolol 0 2020- No [id number] TAKE 1 M ethodi tartrate 4-26 07-29 TABLET(50 st (LOPRESSOR) 00:00: 00:00 MG) BY Hos [facility] 50 mg 00 :00 MOUTH l tablet TWICE DAILY lisinopriL- 2020-0 2020- No [id number] 1{tbl} QD TAKE 1 [facility] hydrochloro 4-26 07-[address] thiazide 00:00: 00:00 MOUTH [facility] (PRINZIDE) 00 :00 DAILY l 10-12.5 mg per tablet lisinopriL- 2020- No [id number] 1{tbl} QD Take 1 [facility] hydrochloro 03-[address] thiazide 00:00: 00:00 mouth [facility] (PRINZIDE) 00 :00 daily. l 10-12.5 mg per tablet metoprolol 2020- No [id number] 50mg Q.5D Take 1 M ethodi tartrate 03-12- tablet (50 st (LOPRESSOR) 00:00: 00:00 mg total) [facility] 50 mg 00 :00 by mouth 2 l tablet (two) times a day. lisinopril- No [id number] 1{tbl} QD TAKE 1 [facility] hydrochloro 03-[address] thiazide 00:00: 00:00 MOUTH [facility] (PRINZIDE) 00 :00 DAILY l 10-12.5 mg per tablet metoprolol 2020- No [id number] TAKE 1 M ethodi tartrate 03-17 TABLET(50 [...] by Met hodi in-folic 8-[address] -[id number] 16:39: Hospita 200 mcg 47 l tablet aspirin 2019-0 Yes 81mg QD Take 81 mg Meth denis (ECOTRIN) 8-[address] 81 MG 11:39: daily. [facility]ospita enteric 47 l coated tablet fexofenadin 2018- Yes Take by Met hodi e HCl 8-[address] (JAYCOB 11:39: needed. Hospit a ODT ORAL) 47 l cetirizine 2018-0 Yes 10mg Q24H Take 10 mg M ethodi (ZyrTEC) 10 8-[address] MG tablet 11:39: daily as [facility]osp [facility] 47 needed for l allergies. mvit,calc,m Yes Take by Met hodi in-folic 8-13 mouth. [place] [id number] 11:39: Hospita 200 mcg 47 l tablet aspirin 2018-0 Yes 81mg QD Take 81 mg Meth denis (ECOTRIN) 8-[address] 81 MG 11:39: daily. [facility]ospita enteric 47 l coated tablet fexofenadin 2018- Yes Take by Met hodi e HCl 8-[address] (JAYCOB 11:39: needed. Hospit a ODT ORAL) 47 l cetirizine 2018-0 Yes 10mg Q24H Take 10 mg M ethodi (ZyrTEC) 10 8-[address] MG tablet 11:39: daily as [facility]osp [facility] 47 needed for l allergies. mvit,calc,m Yes Take by Met hodi in-folic 8[facility] 11[facility]39: [facility] 200 mcg 47 l tablet coenzyme 2019-0 Yes [facility] Q10 (CO 09-23 st Q-10) 100 00:00: [facility]ospita mg capsule 00 l coenzyme 2019-0 Yes [facility] Q10 (CO 09-23 st Q-10) 100 00:00: [facility]ospita mg capsule 00 l coenzyme 2019-0 Yes [facility] Q10 (CO 09-23 st Q-10) 100 00:00: [facility]ospita mg capsule 00 l cholecalcif 2018- Yes [facility] i alex, 8 st vitamin D3, 00:00: Hospit a (VITAMIN 00 l D3) 5,000 unit tablet cholecalcif 2019-0 Yes [facility] alex, 8 st vitamin D3, 00:00: Hospit a (VITAMIN 00 l D3) 5,000 unit tablet cholecalcif 2019-0 Yes [facility] i alex, 8 st vitamin D3, 00:00: Hospit a (VITAMIN 00 l D3) 5,000 unit tablet docusate 2018-0 Yes [facility] sodium 8- st (COLACE) 00:00: [facility]ospita 100 MG 00 l capsule docusate 2019-0 Yes [facility] sodium 8 st (COLACE) 00:00: [facility]osp[facility] 100 MG 00 l capsule docusate 2019-0 Yes [facility] sodium 8 st (COLACE) 00:00: [facility]ospita 100 MG 00 l capsule ferrous 2019-0 Yes [facility] sulfate 325 7-17 st (65 FE) MG 00:00: Hospita tablet 00 l ferrous 2019-0 Yes [facility] sulfate 325 7-17 st (65 FE) MG 00:00: Hospita tablet 00 l ferrous 2019-0 Yes [facility] sulfate 325 7-17 st (65 FE) MG 00:00: Hospita tablet 00 l sertraline 2019-0 Yes [facility] (ZOLOFT) 7-15 st 100 MG 00:00: Hospita tablet 00 l sertraline 2019-0 Yes [facility] (ZOLOFT) 7-15 st 100 MG 00:00: Hospita tablet 00 l sertraline 2019-0 Yes [facility] (ZOLOFT) 7-15 st 100 MG 00:00: Hospita tablet 00 l Vital Signs Vital Name Observation Time Observation Value Comments Source HEIGHT 2021-09-20 13:13:00 154.9 cm WEIGHT 2021-09-20 13:13:00 111.131 kg WEIGHT 2021-10-29 08:01:00 118.3 kg WEIGHT 2021-10-28 08:35:00 118.3 kg WEIGHT 2021-10-19 08:00:00 118.3 kg WEIGHT 2021-10-19 06:00:00 114.715 kg WEIGHT 2021-10-18 05:00:00 108.591 kg HEIGHT 2021-10-16 10:28:00 154.9 cm WEIGHT 2021-10-16 10:28:00 108.863 kg WEIGHT 2021-10-29 08:01:00 118.3 kg WEIGHT 2021-10-28 08:35:00 118.3 kg WEIGHT 2021-10-19 08:00:00 118.3 kg WEIGHT 2021-10-19 06:00:00 114.715 kg WEIGHT 2021-10-18 05:00:00 108.591 kg HEIGHT 2021-10-16 10:28:00 154.9 cm WEIGHT 2021-10-16 10:28:00 108.863 kg WEIGHT 2021-10-05 03:00:00 110.2 kg HEIGHT 2021-10-02 14:22:00 154.9 cm WEIGHT 2021-10-02 14:22:00 108.863 kg WEIGHT 2021-10-05 03:00:00 110.2 kg HEIGHT 2021-10-02 14:22:00 154.9 cm WEIGHT 2021-10-02 14:22:00 108.863 kg Systolic blood 2021-08-27 14:02:00 95 mm[Hg] [facility] pressure Medicine Diastolic blood 2021-08-27 14:02:00 56 mm[Hg] [facility] Medicine Heart rate 2021-08-27 14:02:00 76 /min sp02 97 [facility] Body temperature 2021-08-27 14:02:00 36.72 Nadiya [facility] Respiratory rate 2021-08-27 14:02:00 16 /min [facility] Body height 2021-08-27 14:02:[address] [facility] Body weight 2021-08-27 14:02:[address] [facility] BMI 2021-08-27 14:02:00 48.64 kg/m2 [facility] WEIGHT 2021-08-15 05:40:00 111.9 kg WEIGHT 2021-08-14 06:00:00 112.9 kg WEIGHT 2021-08-15 05:40:00 111.9 kg WEIGHT 2021-08-14 06:00:00 112.9 kg Systolic blood 2021-08-13 13:12:00 131 mm[Hg] [facility] pressure Medicine Diastolic blood 2021-08-13 13:12:00 84 mm[Hg] [facility] Medicine Heart rate 2021-08-13 13:12:00 63 /min spo2 97 [facility] Body temperature 2021-08-13 13:12:00 36.67 Nadiya [facility] Body height 2021-08-13 13:12:00 154.9 cm [facility] Body weight 2021-08-13 13:12:00 115.032 kg [facility] BMI 2021-08-13 13:12:00 47.92 kg/m2 [facility] Systolic blood 2021-06-27 19:19:00 111 mm[Hg] [facility] Medicine Diastolic blood 2021-06-27 19:19:00 70 mm[Hg] [facility] Medicine Heart rate 2021-06-27 19:19:00 67 /min [facility] Body temperature 2021-06-27 19:19:00 36.11 Nadiya [facility] Respiratory rate 2021-06-27 19:19:00 16 /min [facility] Body height 2021-06-27 19:19:00 154.9 cm [facility] Body weight 2021-06-27 19:19:00 109.77 kg [facility] BMI 2021-06-27 19:19:00 45.73 kg/m2 [facility] WEIGHT 2021-05-17 12:46:00 52.98 kg WEIGHT 2021-05-17 06:25:00 107.911 kg WEIGHT 2021-05-17 12:46:00 52.98 kg WEIGHT 2021-05-17 06:25:00 107.911 kg Body weight 2021-03-29 17:28:00 110.678 kg [facility] BMI 2021-03-29 17:28:00 46.10 kg/m2 [facility] Systolic blood 2021-03-29 17:28:00 143 mm[Hg] [facility] pressure Medicine Diastolic blood 2021-03-29 17:28:00 82 mm[Hg] [facility] Medicine Heart rate 2021-03-29 17:28:00 60 /min [facility] Body temperature 2021-03-29 17:28:00 36.22 Nadiya [facility] Respiratory rate 2021-03-29 17:28:00 16 /min [facility] Body height 2021-03-29 17:28:00 154[facility]9 [facility] Body height 2021-03-01 15:04:00 154.9 cm [facility] Body weight 2021-03-01 15:04:00 107.593 [facility] BMI 2021-03-01 15:04:00 44.82 kg/m2 [facility] HEIGHT 2021-02-03 05:20:00 154.9 cm WEIGHT 2021-02-03 05:20:00 106.505 kg HEIGHT 2021-02-03 05:20:00 154.9 cm WEIGHT 2021-02-03 05:20:00 106.505 kg Systolic blood 2021-01-25 15:06:00 122 mm[Hg] [facility] Diastolic blood 2021-01-25 15:06:00 80 mm[Hg] [facility] Heart rate 2021-01-25 15:06:00 81 /min [facility] 2021-01-25 15:06:00 36.28 Nadiya [facility] Respiratory rate 2021-01-25 15:06:00 14 /min [facility] Body height 2021-01-25 15:06:00 154.9 cm [facility] Body weight 2021-01-25 15:06:00 106.142 kg [facility] BMI 2021-01-25 15:06:00 44.21 kg/m2 [facility] Systolic blood 2021-10-30 13:00:00 140 mm[Hg] [facility] Diastolic blood 2021-10-30 13:00:00 69 mm[Hg] [facility] Heart rate 2021-10-30 13:00:00 83 /min [facility] Respiratory rate 2021-10-30 13:00:00 18 /min [facility] Oxygen saturation in 2021-10-30 13:00:00 96 /min [facility] Arterial blood by Medical Ce nter Pulse oximetry Body temperature 2021-10-30 07:41:00 35.72 Nadiya [facility] Body weight 2021-10-29 08:01:00 118.3 kg [facility] BMI 2021-10-29 08:01:00 49.28 kg/m2 [facility] Body height 2021-10-17 14:23:00 154.9 cm [facility] Procedures Procedure Date / Time Performing Clinician Source Performed POCT-GLUCOSE METER 2021-10-30 13:13:00 Samina Ladd [facility] BASIC METABOLIC PANEL (7) 2021-10-30 05:49:00 Prachi Morgan [facility] CBC (HEMOGRAM ONLY) 2021-10-30 05:49:00 Prachi Morgan [facility] MAGNESIUM 2021-10-30 05:49:00 Prachi Morgan [facility] PHOSPHORUS 2021-10-30 05:49:00 Eddie [facility] POCT-GLUCOSE METER 2021-10-30 05:39:00 [facility] 2021-10-30 00:52:00 Prachi Morgan [facility] POCT-GLUCOSE METER 2021-10-29 17:04:[address] [facility] POCT-GLUCOSE METER 2021-10-29 13:07:00 [facility] (7) 2021-10-29 05:14:00 Prachi Morgan [facility] CBC (HEMOGRAM ONLY) 2021-10-29 05:14:00 Prachi Morgan [facility] MAGNESIUM 2021-10-29 05:14:00 [facility] 2021-10-29 05:14:00 Eddie [facility] POCT-GLUCOSE METER 2021-10-29 05:11:00 Eddie, [facility] POCT-GLUCOSE METER 2021-10-28 17:59:00 Eddie, [facility] POCT-GLUCOSE METER 2021-10-28 05:26:00 Eddie, [facility] BASIC METABOLIC PANEL (7) 2021-10-28 03:40:00 Prachi Morgan [facility] CBC (HEMOGRAM ONLY) 2021-10-28 03:40:00 Eddie [facility] MAGNESIUM 2021-10-28 03:40:00 Eddie [facility] PHOSPHORUS 2021-10-28 03:40[facility] 2021-10-27 23:25[facility]SE [facility]ER 2021-10-27 17:33:[facility] PO[facility]UCOSE METER 2021-10-27 12:00:[facility] POCT-GLUCOSE METER 2021-10-27 06:43:00 Eddie [facility] BASIC METABOLIC PANEL (7) 2021-10-27 05:03:00 Prachi Morgan [facility] CBC (HEMOGRAM ONLY) 2021-10-27 05:03:00 Eddie [facility] MAGNESIUM 2021-10-27 05:03:00 Eddie [facility] PHOSPHORUS 2021-10-27 05:03:[facility] PO[facility]UCOSE METER 2021-10-27 01:45:00 [facility] POCT-GLUCOSE METER 2021-10-26 23:21:00 Eddie [facility] BASIC METABOLIC PANEL (7) 2021-10-26 14:13:00 Prachi Morgan [facility] TRIGLYCERIDES 2021-10-26 14:13:00 Eddie [facility] CBC (HEMOGRAM ONLY) 2021-10-26 05:53:00 [facility] 2021-10-26 05:53:00 Eddie [facility] PHOSPHORUS 2021-10-26 05:53:00 Eddie [facility] CALCIUM, IONIZED 2021-10-26 05:53:00 Eddie [facility] TRANSESOPHAGEAL ECHO 2021-10-25 13:26:00 Henry Castanon [facility] BASIC METABOLIC PANEL (7) 2021-10-25 04:31:00 Prachi Morgan [facility] CBC (HEMOGRAM ONLY) 2021-10-25 04:31:00 Eddie [facility] MAGNESIUM 2021-10-25 04:31:00 Eddie [facility] PHOSPHORUS 2021-10-25 04:31:[facility] PT/[facility] 2021-10-25 04:27:00 Eddie, [facility] XR CHEST 1 VIEW PORTABLE / 2021-10-24 13:50:[address] [facility] BASIC METABOLIC PANEL (7) 2021-10-24 04:31:00 Prachi Morgan [facility] CBC (HEMOGRAM ONLY) 2021-10-24 04:31:00 Eddie [facility] MAGNESIUM 2021-10-24 04:31:00 Eddie [facility] PHOSPHORUS 2021-10-24 04:31:00 Eddie [facility] NM MYOCARDIAL PERFUSION 2021-10-23 15:00:00 Janette [facility] PET/CT (AT REST) [facility] TREADMILL 2021-10-23 14:26:55 Unknown, Hl7 [facility] TOLERANCE(NON-NUCLEAR Medical Ce nter TREADMILL) ECG 12-LEAD 2021-10-23 14:23:28 Unknown, Hl7 [facility] ECG 12-LEAD 2021-10-23 14:23:28 Unknown, 7 [facility] SARS-COV2/RT-PCR ([facility] & 2021-10-23 08:54:00 Sharon Malave [facility] REF LABS) [facility] COLOR-FLOW MAPPING 2021-10-23 08:39:30 [facility] WAVE PULSED DOPPLER 2021-10-23 08:39:[address] [facility] POCT-GLUCOSE METER 2021-10-23 06:06:00 [facility] W/PLT COUNT & AUTO 2021-10-23 04:33:00 [facility] COMPREHENSIVE METABOLIC 2021-10-23 04:33:00 Sharon Malave [facility] CBC (HEMOGRAM ONLY) 2021-10-23 04:33:00 [facility] MAGNESIUM 2021-10-23 04:33:00 Sharon Malave [facility] PHOSPHORUS 2021-10-23 04:33:00 Ananda [facility] C-REACTIVE PROTEIN 2021-10-23 04:33:00 Alem Sánchez [facility] CBC W/PLT COUNT & AUTO 2021-10-23 04:33:00 [facility] POCT-GLUCOSE METER 2021-10-22 23:15:00 Eddie [facility] CT THORACIC SPINE WITHOUT 2021-10-22 09:34:00 Stefani Oquendo [facility] IV CONTRAST [facility] POCT-GLUCOSE METER 2021-10-22 06:10:00 Mirian Gomez [facility] CBC W/PLT COUNT & AUTO 2021-10-22 04:32:00 Malave [facility] METABOLIC 2021-10-22 04:32:00 [facility] ([facility] ONLY) 2021-10-22 04:32:00 Ananda [facility] MAGNESIUM 2021-10-22 04:32:00 Ananda [facility] PHOSPHORUS 2021-10-22 04:32:00 Ananda [facility] CBC W/PLT COUNT & AUTO 2021-10-22 04:32[facility]00 [facility] LEUKO-REDUCED RBC 2021-10-21 23:54:[address] [facility] CBC W/PLT COUNT & AUTO 2021-10-21 04:15:00 Ananda [facility] COMPREHENSIVE [facility] 2021-10-21 04:15:[address] [facility] CBC (HEMOGRAM ONLY) 2021-10-21 04:15:00 Ananda [facility] MAGNESIUM 2021-10-21 04:15:00 [facility] 2021-10-21 04:15:00 Ananda [facility] CBC W/PLT COUNT & AUTO 2021-10-21 04:15:00 [facility] ONLY[facility] 2021-10-20 15:29:00 Kelsie Clayton [facility] BLOOD CULTURE 2021-10-20 12:30[facility] 2021-10-20 12:18:00 Luiza Carrion [facility] TRANSFUSE LEUKO-REDUCED RED 2021-10-20 11:06:00 Piter Ugalde [facility] BLOOD CELLS [facility] XR ABDOMEN / KUB 1 VIEW 2021-10-20 06:33:00 Kathleen Chavez [facility] TYPE AND SCREEN, AUTOMATED 2021-10-20 06:22:[address] [facility] CBC W/PLT COUNT & AUTO 2021-10-20 03:46:00 Sharon Malave [facility] COMPREHENSIVE METABOLIC 2021-10-20 03:46:00 Kobe Malavema Judy [facility] CBC (HEMOGRAM ONLY) 2021-10-20 03:46:00 [facility] MAGNESIUM 2021-10-20 03:46:00 Ananda Sharon Judy [facility] PHOSPHORUS 2021-10-20 03:46:00 Ananda [facility] CBC W/PLT COUNT & AUTO 2021-10-20 03:46:00 Srinivas Stern [facility] POCT-GLUCOSE METER 2021-10-20 00:21:00 Patricia [facility] PREPARE PLASMA 2021-10-19 23:55:00 Carin Amaya [facility] PREPARE LEUKO-REDUCED RBC 2021-10-19 23:54:00 Srinivas Stern [facility] MR THORACIC SPINE WITHOUT 2021-10-19 19:10:00 Stefani Oquendo [facility] IV CONTRAST [facility] XR CHEST 1 VIEW PORTABLE / 2021-10-19 09:37:[address] [facility] BLOOD GAS, ARTERIAL 2021-10-19 05:36:00 Kathleen Chavez [facility] POCT-GLUCOSE METER 2021-10-19 05:33:00 Patricia [facility] CBC W/PLT COUNT & AUTO 2021-10-19 05:16:00 Sharon Malave [facility] COMPREHENSIVE METABOLIC 2021-10-19 05:16:00 Kobe Malavema Judy [facility] CBC (HEMOGRAM ONLY) 2021-10-19 05:16:00 Malave [facility] MAGNESIUM 2021-10-19 05:16:00 [facility] PHOS[facility]US 2021-10-19 05:16:00 [facility] HEPATIC FUNCTION PANEL 2021-10-19 05:16:00 Catalino Connors [facility] CBC W/PLT COUNT & AUTO 2021-10-19 05:16:00 [facility] BLOOD GAS, ARTERIAL 2021-10-18 21:48:00 [facility] CBC W/PLT COUNT & AUTO 2021-10-18 21:47:00 [facility] BASIC METABOLIC PANEL (7) 2021-10-18 21:47:00 Stern [facility] MAGNESIUM 2021-10-18 21:47:00 [facility] PHOSPHORUS 2021-10-18 21:47:00 [facility] PT/APTT 2021-10-18 21:47:00 [facility] CALCIUM, IONIZED 2021-10-18 21:47:00 [facility] CBC W/PLT COUNT & AUTO 2021-10-18 21:47:00 Stern [facility] POCT-GLUCOSE METER 2021-10-18 21:45:00 Mirian Gomez [facility] PREPARE PLASMA 2021-10-18 21:15:00 Samantha Caio [facility] PREPARE PLASMA 2021-10-18 19:54:00 Caio Singh [facility] HC SOMATOSENSORY TEST, 4 2021-10-18 18:38:00 Charlie Rainey [facility] [place] FLUORO NON-SPECIFIC UP 2021-10-18 18:27:00 Charlie Rainey [address] TRANSFUSE LEUKO-REDUCED RED 2021-10-18 17:52:00 Caio Singh [facility] BLOOD CELLS [facility] Center RRL CRITICAL LABS 2021-10-18 16:54:39 Charlie Rainey [facility]efan[facility] (ABG,NA,K,H&H,GLUCOSE) Medical C enter CALCIUM, IONIZED 2021-10-18 16:54:39 Charlie Rainey [facility] BLOOD GAS, ARTERIAL 2021-10-18 16:54:39 Charlie Rainey [facility] SODIUM NA-STAT LAB 2021-10-18 16:54:39 Charlie Rainey [facility] POTASSIUM-STAT LAB 2021-10-18 16:54:39 Charlie Rainey [facility] GLUCOSE-STAT LAB 2021-10-18 16:54:39 Charlie Rainey [facility] HGB/HCT (H&H) - STAT LAB 2021-10-18 16:54:39 Charlie Rainey [facility] [place] FLUORO NON-SPECIFIC UP 2021-10-18 13:35:00 Charlie Rainey in [facility] TO [address] [place] [address] [place] FLUORO NON-SPECIFIC UP 2021-10-18 12:50:00 Charlie Rainey in [address] XR SPINE THORACIC 1 VIEW 2021-10-18 11:23:00 Charlie Rainey [facility] CORPECTOMY, SPINE, 2021-10-18 09:24:00 Charlie Rainey [facility] THORACIC, WITH FUSION Medical Ce nter LAMINECTOMY, SPINE, 2021-10-18 09:24:00 Charlie Rainey [facility] THORACIC, WITH FUSION Medical Ce nter NEUROPHYSIOLOGIC 2021-10-18 09:24:00 Charlie Rainey [facility] MONITORING, INTRAOPERATIVE Medic al Center PROCEDURE W/ C-ARM 2021-10-18 09:24:00 Charlie Rainey [facility] IR NON-TUNNELED DIALYSIS 2021-10-18 08:14:00 Mirian Gomez [facility] CATHETER (CENTRAL [facility] LINE/YULISA) BLOOD CULTURE 2021-10-18 04:44:00 Luiza Carrion [facility] CBC W/PLT COUNT & AUTO 2021-10-18 04:44:00 Ananda Sharon Rothmana [facility] COMPREHENSIVE METABOLIC 2021-10-18 04:44:00 Kobe Malavesarah Kim [facility] PROTHROMBIN TIME/INR 2021-10-18 04:44:00 [facility] W/[facility] & AUTO 2021-10-18 04:44:00 Patricia [facility] TRANSFUSE LEUKO-REDUCED RED 2021-10-18 01:06:00 [facility] TRANSFUSE LEUKO-REDUCED RED 2021-10-17 22:05:00 Stern [facility] MR THORACIC SPINE WITHOUT 2021-10-17 20:00:00 PatriciaMirian [facility] IV CONTRAST [facility] ECG 12-LEAD 2021-10-17 18:25:04 Isabel Bell [facility] ECG 12-LEAD 2021-10-17 18:25:04 Unknown, Hl7 [facility] 2D ECHO W/ DOPPLER 2021-10-17 14:02:10 Hiro Jenkins [facility] (CW/PW/COLOR) [facility] VENOUS DOPPLER LEGS 2021-10-17 13:32:00 Rashida Pineda [facility] BASIC METABOLIC PANEL (7) 2021-10-17 12:53:00 Carin Amaya [facility] MAGNESIUM 2021-10-17 12:53:00 Carin Amaya [facility] PHOSPHORUS 2021-10-17 12:53:00 Carin Amaya [facility] HEPATIC FUNCTION PANEL 2021-10-17 12:53:00 Carin Amaya [facility] CBC W/PLT COUNT & AUTO 2021-10-17 12:53:00 [facility] PT/APTT 2021-10-17 12:53:00 [facility] HIGH SENSITIVITY TROPONIN I 2021-10-17 12:53:00 Shaq [facility] LIPID PANEL 2021-10-17 12:53:[address] [facility] HEMOGLOBIN A1C 2021-10-17 12:53:[address] [facility] TSH/FREE T4 IF INDICATED 2021-10-17 12:53:[address] [facility] CBC W/PLT COUNT & AUTO 2021-10-17 12:53:00 [facility] CT CHEST FOR PULMONARY 2021-10-17 03:47:00 Dania [facility] EMBOLUS [facility] XR CHEST 1 VIEW PORTABLE / 2021-10-16 22:30:00 Aydee Solomon [facility] B-TYPE NATRIURETIC FACTOR 2021-10-16 22:21:00 [facility] D-DIMER 2021-10-16 22:21:00 CathieLake [facility] LACTIC ACID, VENOUS 2021-10-16 22:21:00 Aydee Solomon [facility] BASIC METABOLIC PANEL (7) 2021-10-16 22:21:00 Aydee Solomon [facility] CBC W/PLT COUNT & AUTO 2021-10-16 22:21:00 Aydee Solomno [facility] MAGNESIUM 2021-10-16 22:21:00 Aydee Solomon [facility] BLOOD GAS, VENOUS 2021-10-16 22:21:00 Aydee Solomon [facility] CBC W/PLT COUNT & AUTO 2021-10-16 22:21:00 Aydee Solomon [facility] HIGH SENSITIVITY TROPONIN I 2021-10-16 21:28:00 Shaq, Janette [facility] ECG 12-LEAD 2021-10-16 21:06:04 [facility] 2021-10-16 21:06:04 Unknown, Hl7 Doctor [facility] URINALYSIS W/ MICROSCOPIC 2021-10-16 16:07:00 Carin Amaya Immanueldustin valerio [facility] TYPE AND SCREEN, AUTOMATED 2021-10-16 15:01:00 Jenkins, Hiro C [facility] CT ABDOMEN/PELVIS WITH IV 2021-10-16 14:29:00 Jenkins, Hiro CH I [facility] CONTRAST [facility] SARS-COV2/RT-PCR ([facility] & 2021-10-16 11:48:00 Sharon Malave [facility] REF LABS) [facility] BLOOD GAS, VENOUS 2021-10-16 11:47:00 [facility] HIGH SENSITIVITY TROPONIN I 2021-10-16 11:47:00 [facility] LIPASE 2021-10-16 11:47:00 Luiza [facility] CBC W/PLT COUNT & AUTO 2021-10-16 11:47:00 [facility] 2021-10-16 11:47:00 [facility] BLOOD CULT[facility] 2021-10-16 11:47:00 [facility] CBC W/PLT COUNT & AUTO 2021-10-16 11:47:00 [facility] LACTIC ACID, VENOUS 2021-10-16 11:47:00 [facility] COMPREHENSIVE METABOLIC 2021-10-16 11:47:00 [facility] PROT[facility] TIME/INR 2021-10-16 11:47:00 [facility] APTT 2021-10-16 11:47:00 [facility] BLOOD CULTURE 2021-10-16 11:30:00 Antoni Flannery [facility] ECG 12-LEAD 2021-10-16 11:16:[address] [facility] ECG 12-LEAD 2021-10-16 11:16:31 Unknown, Hl7 [facility] XR CHEST 1 VIEW PORTABLE / 2021-10-16 10:11:[address] [facility] POCT-GLUCOSE METER 2021-10-08 11:51:00 Izzy Tana [facility] POCT-GLUCOSE METER 2021-10-08 07:18:00 Tana Magana [facility] METABOLIC 2021-10-08 05:49:[address] [facility] MAGNESIUM 2021-10-08 05:49:[address] [facility] CBC W/PLT COUNT & AUTO 2021-10-08 05:49:00 Tana Magana [facility] CBC W/PLT COUNT & AUTO 2021-10-08 05:49:00 Tana Magana [facility] POCT-GLUCOSE METER 2021-10-08 01:56:00 Izzy [facility] POCT-GLUCOSE METER 2021-10-07 12:21:00 Tana Magana [facility] MAGNESIUM 2021-10-07 06:22:[address] [facility] COMPREHENSIVE METABOLIC 2021-10-07 06:22:[address] [facility] PHOSPHORUS 2021-10-07 06:22:00 Izzy [facility] B-TYPE NATRIURETIC FACTOR 2021-10-07 04:06:[address] [facility] (BNP) [facility] MAGNESIUM 2021-10-07 04:06:[address] [facility] CBC W/PLT COUNT & AUTO 2021-10-07 04:06:00 Izzy [facility] CBC W/PLT COUNT & AUTO 2021-10-07 04:06:00 Izzy [facility] POCT-GLUCOSE METER 2021-10-07 00:20:00 [facility] POCT-GLUCOSE METER 2021-10-06 13:15:00 [facility] COMPREHENSIVE METABOLIC 2021-10-06 04:35:00 [facility] MAGNESIUM 2021-10-06 04:35:00 Izzy [facility] CBC W/PLT COUNT & AUTO 2021-10-06 04:35:00 [facility] CBC W/PLT COUNT & AUTO 2021-10-06 04:35:00 [facility] POCT-GLUCOSE METER 2021-10-05 17:15:00 [facility] METABOLIC 2021-10-05 08:02:00 [facility] MAGNESIUM 2021-10-05 06:39:00 [facility] CBC W/PLT COUNT & AUTO 2021-10-05 06:39:00 [facility] C-REACTIVE PROTEIN 2021-10-05 06:39:00 [facility] CBC W/PLT COUNT & AUTO 2021-10-05 06:39:00 [facility] POCT-GLUCOSE METER 2021-10-05 06:35:[address] [facility] [address] CHEST FOR PULMONARY 2021-10-05 02:51:00 [facility] EMBOLUS [facility] POCT-GLUCOSE METER 2021-10-05 00:51:00 [facility] PROCALCITONIN 2021-10-04 17:36:00 Ailyn Mayberry [facility] 2D ECHO W/ DOPPLER 2021-10-04 14:20:00 [facility] (CW/PW/COLOR) [facility] XR CHEST 1 VIEW PORTABLE / 2021-10-04 12:46:00 [facility] POCT-GLUCOSE METER 2021-10-04 12:29:00 [facility] BLOOD GAS, ARTERIAL 2021-10-04 11:56:00 [facility] B-TYPE NATRIURETIC FACTOR 2021-10-04 08:55:00 [facility] (BNP) [facility] POCT-GLUCOSE METER 2021-10-04 08:16:00 [facility] TRIGLYCERIDES 2021-10-04 03:11:00 [facility] HEMOGLOBIN A1C 2021-10-04 03:11:00 [facility] COMPREHENSIVE METABOLIC 2021-10-04 03:11:00 [facility] PANEL [facility] MAGNESIUM 2021-10-04 03:11:00 [facility] CBC W/PLT COUNT & AUTO 2021-10-04 03:11:00 [facility] DIFFERENTIAL [facility] CBC W/PLT COUNT & AUTO 2021-10-04 03:11:00 [facility] DIFFERENTIAL [facility] POCT-GLUCOSE METER 2021-10-03 22:12:00 [facility] C-REACTIVE PROTEIN 2021-10-03 15:16:00 Sunil Cantu [facility] XR CHEST 1 VIEW PORTABLE / 2021-10-03 10:53:00 [facility] XR CHEST 1 VIEW PORTABLE / 2021-10-02 21:16:[address] [facility] SARS-COV2/RT-PCR ([facility] & 2021-10-02 18:43:00 Yoko Martini CH I [facility] REF LABS) [facility] CT ABDOMEN/PELVIS WITH IV 2021-10-02 17:45:00 Sidney [facility] CONTRAST [facility] CBC W/PLT COUNT & AUTO 2021-10-02 15:34:00 Czaplickosman [facility] DIFFERENTIAL [facility] COMPREHENSIVE METABOLIC 2021-10-02 15:34:00 Czaplickosman [facility] I [facility] PANEL [facility] LIPASE 2021-10-02 15:34:[address] [facility] LACTIC ACID, VENOUS 2021-10-02 15:34:00 Czaplickosman [facility] HIGH SENSITIVITY TROPONIN I 2021-10-02 15:34:[address] [facility] CBC W/PLT COUNT & AUTO 2021-10-02 15:34:00 Czaplickosman [facility] ECG 12-LEAD 2021-10-02 14:28:48 Unknown, Hl7 [facility] ECG 12-LEAD 2021-10-02 14:28:48 Unknown, Hl7 [facility] EKG-SCANNED 2021-10-02 00:00:00 Provider, Javon [facility] CBC W/PLT COUNT & AUTO 2021-08-15 05:31:00 Pretty Funes [facility] BASIC METABOLIC PANEL (7) 2021-08-15 05:31:00 Pretty Funes [facility] PHOSPHORUS 2021-08-15 05:31:00 Pretty Funes [facility] MAGNESIUM 2021-08-15 05:31:00 Yovani Funesdowney Abiola [facility] CBC W/PLT COUNT & AUTO 2021-08-15 05:31:00 Yovani Funesdowney Abiola [facility] MR ENTEROGRAPHY - MR 2021-08-14 18:03:00 Jenkins, Hiro [facility] ABD/PELVIS WITHOUT & WITH Medica l Center IV CONTRAST TRIGLYCERIDES 2021-08-14 13:49:00 Pretty Funes [facility] POCT-GLUCOSE METER 2021-08-14 05:55:00 Padmini [facility] POCT-GLUCOSE METER 2021-08-14 00:12:00 Padmini [facility] SARS-COV2/RT-PCR ([facility] & 2021-08-13 18:24:00 Melanie [facility] REF LABS) [facility] CBC W/PLT COUNT & AUTO 2021-08-13 18:24:00 Padmini [facility] COMPREHENSIVE METABOLIC 2021-08-13 18:24:00 [facility] PROTHROMBIN TIME/INR 2021-08-13 18:24:00 Padmini [facility] CBC W/PLT COUNT & AUTO 2021-08-13 18:24:00 Padmini [facility] XR CHEST 1 VIEW PORTABLE / 2021-08-13 17:40:00 Padmini [facility] BEDSIDE [facility] CBC W/AUTO DIFF WITH 2021-07-16 09:57:55 [facility] BASIC METABOLIC PANEL 2021-07-16 09:57:55 [facility] HEPATIC FUNCTION PANEL 2021-07-16 09:57:55 [facility] SEDIMENTATION RATE MODIFIED 2021-07-16 09:57:55 [facility] TREATMENT CONDITIONS 2021-07-16 09:57:55 [facility] CBC W/PLT COUNT & AUTO 2021-05-19 04:44:00 Sandra Perez [facility] BASIC METABOLIC PANEL (7) 2021-05-19 04:44:00 EleazarSandra balderrama [facility] LACTIC ACID, VENOUS 2021-05-19 04:44:00 Sandra Perez [facility] CBC W/PLT COUNT & AUTO 2021-05-19 04:44:00 Sandra Pereznorm [facility] CBC (HEMOGRAM ONLY) 2021-05-18 05:10:[address] [facility] BASIC METABOLIC PANEL (7) 2021-05-18 05:10:00 Leighann Milian [facility] PHOSPHORUS 2021-05-18 05:10:00 [facility]UM 2021-05-18 05:10:00 Maicol [facility] ABORH, MANUAL 2021-05-17 18:16:00 Sophia Melo [facility] SARS-COV2/RT-PCR ([facility] & 2021-05-17 09:07:00 Maicol [facility] REF LABS) [facility] [place] ECG 12-LEAD 2021-05-17 09:00:51 [facility] 12-[facility]AD 2021-05-17 09:00:51 Unknown, Hl7 [facility] BASIC METABOLIC PANEL (7) 2021-05-17 08:58:00 Leighann Milian [facility] CBC (HEMOGRAM ONLY) 2021-05-17 08:58:[address] [facility] PHOSPHORUS 2021-05-17 08:58:00 [facility] MAGNESIUM 2021-05-17 08:58:00 Maicol [facility] PROTHROMBIN TIME/INR 2021-05-17 08:58:00 [facility] TYPE AND SCREEN, AUTOMATED 2021-05-17 08:58:00 Leighann Milian [facility] XR CHEST 1 VIEW PORTABLE / 2021-05-17 07:46:00 Leighann Milian [facility] XR ABDOMEN / KUB 1 VIEW 2021-05-17 07:46:00 Maicol [facility] EKG-SCANNED 2021-05-17 00:00:00 Provider, Javon [facility] C. DIFFICILE GDH TOXIN 2021-02-06 10:40:00 Guevara Grayson [facility] CBC (HEMOGRAM ONLY) 2021-02-06 05:18:00 WendyObinna [facility] BASIC METABOLIC PANEL (7) 2021-02-06 05:18:00 Wendy MoosekhoaPati [facility] CBC (HEMOGRAM ONLY) 2021-02-05 04:36:00 Wendy MoosekhoaPati [facility] BASIC METABOLIC PANEL (7) 2021-02-05 04:36:00 Wendy MoosekhoaPati [facility] C-REACTIVE PROTEIN 2021-02-05 04:36:00 [facility] ABDOMEN/PELVIS WITH IV 2021-02-04 09:35:00 Annia Newman [facility] T SPOT TB 2021-02-04 09:06:00 [facility] FERRITIN 2021-02-04 05:38:00 [facility] IRON, TIBC, % SAT. (WITHOUT 2021-02-04 05:38:[address] [facility] FERRITIN) [facility] VITAMIN B12 AND FOLATE 2021-02-04 05:38:00 [facility] VITAMIN D, 25-HYDROXY 2021-02-04 05:38:00 [facility] HEPATITIS B PANEL 2021-02-04 05:38:[address] [facility] HEMOGLOBIN A1C 2021-02-03 09:10:00 Laura Regan [facility] BASIC METABOLIC PANEL (7) 2021-02-03 09:09:00 Laura Regan [facility] CBC W/PLT COUNT & AUTO 2021-02-03 09:09:00 Laura Regan [facility] MAGNESIUM 2021-02-03 09:09:00 Laura Regan [facility] PHOSPHORUS 2021-02-03 09:09:00 [facility]-REACTIVE PROTEIN 2021-02-03 09:09:00 Regan [facility] HEPATIC FUNCTION PANEL 2021-02-03 09:09:00 [facility] CBC W/PLT COUNT & AUTO 2021-02-03 09:09:00 [facility] / KUB 1 VIEW 2021-02-03 07:18:00 Heath Eid CH I [facility] Plan of Care Planned Activity Planned Date Details Comments Source Future Scheduled 2024-10-17 Lipid panel (procedure) [facility] Test 00:00:00 [code = 84487419] Medical Ce nter Future Scheduled 2021-11-15 HEPATITIS B VACCINES (1 [facility] 16:12:43 of 3 - 3-dose series) Hospit al [code = HEPATITIS B VACCINES (1 of 3 - 3-dose series)] Future Scheduled 2021-11-15 COVID-19 VACCINE (#1) [facility] 16:12:43 [code = COVID-19 VACCINE Hos pital (#1)] Future Scheduled 2021-11-15 65+ PNEUMOCOCCAL VACCINE [facility] Test 16:12:43 (1 - PCV) [code = 65+ Hospit al PNEUMOCOCCAL VACCINE (1 - PCV)] Future Scheduled 2021-11-15 Hepatitis C screening [facility] 16:12:43 (procedure) [code = Hospital [id number]] Future Scheduled 2021-11-15 Screening for malignant [facility] Test 16:12:43 neoplasm of cervix Hospital (procedure) [code = 054237276] Future Scheduled 2021-11-15 BREAST CANCER SCREENING [facility] Test 16:12:43 [code = BREAST CANCER Hospit al SCREENING] Future Scheduled 2021-11-15 COLONOSCOPY SCREENING [facility] 16:12:43 [code = COLONOSCOPY Hospital SCREENING] Future Scheduled 2021-11-15 SHINGLES VACCINES (1 of [facility] Test 16:12:43 2) [code = SHINGLES Hospital VACCINES (1 of 2)] Future Scheduled 2021-11-15 INFLUENZA VACCINE [code = [facility] Test 16:12:43 INFLUENZA VACCINE] Hospital Future Scheduled 2021-11-05 HEPATITIS B VACCINES (1 [facility] Test 11:39:44 of 3 - 3-dose series) Hospit al [code = HEPATITIS B VACCINES (1 of 3 - 3-dose series)] Future Scheduled 2021-11-05 COVID-19 VACCINE (#1) [facility] 11:39:44 [code = COVID-19 VACCINE Hos pital (#1)] Future Scheduled 2021-11-05 65+ PNEUMOCOCCAL VACCINE [facility] Test 11:39:44 (1 - PCV) [code = 65+ Hospit al PNEUMOCOCCAL VACCINE (1 - PCV)] Future Scheduled 2021-11-05 Hepatitis C screening [facility] Test 11:39:44 (procedure) [code = Hospital [id number]] Future Scheduled 2021-11-05 Screening for malignant [facility] Test 11:39:44 neoplasm of cervix Hospital (procedure) [code = 352739851] Future Scheduled 2021-11-05 BREAST CANCER SCREENING [facility] Test 11:39:44 [code = BREAST CANCER Hospit al SCREENING] Future Scheduled 2021-11-05 COLONOSCOPY SCREENING [facility] 11:39:44 [code = COLONOSCOPY Hospital SCREENING] Future Scheduled 2021-11-05 SHINGLES VACCINES (1 of [facility] Test 11:39:44 2) [code = SHINGLES Hospital VACCINES (1 of 2)] Future Scheduled 2021-11-05 INFLUENZA VACCINE [code = [facility] Test 11:39:44 INFLUENZA VACCINE] Hospital Future Scheduled 2021-10-17 INFLUENZA VACCINE (#1) [facility] Test 00:[facility]:00 [code = INFLUENZA VACCINE [facility] (#1)] Future Scheduled 2021-08-27 Screening for malignant [facility] Test 09:36:56 neoplasm of colon Medicine (procedure) [code = 646775731] Future Scheduled 2021-08-27 Screening for malignant [facility] Test 09:36:56 neoplasm of breast Medicine (procedure) [code = 174470230] Future Scheduled 2021-08-27 TETANUS SHOT (ADULT) [facility] Test 09:36:56 [code = TETANUS SHOT Medicin e (ADULT)] Future Scheduled 2021-08-27 BMI FOLLOW UP PLAN [code [facility] Test 09:36:56 = BMI FOLLOW UP PLAN] Medici ne Future Scheduled 2021-08-27 Hepatitis C screening [facility] Test 09:36:56 (procedure) [code = Medicine [id number]] Future Scheduled 2021-08-27 ZOSTER VACCINE (1 of 2) [facility] Test 09:36:56 [code = ZOSTER VACCINE (1 Me dicine of 2)] Future Scheduled 2021-08-27 COVID-19 Vaccine (2 - [facility] Test 09:36:56 Pfizer series) [code = Medic ine COVID-19 Vaccine (2 - Pfizer series)] Future Scheduled 2021-08-27 MEDICARE IPPE (WELCOME TO [facility] Test 09:36:56 MEDICARE) [code = Medicine MEDICARE IPPE (WELCOME TO MEDICARE)] Future Scheduled 2021-08-27 FALL SCREEN [code = FALL [facility] Test 09:36:56 SCREEN] Medicine Future Scheduled 2021-08-27 Screening for [facility] Test 09:36:56 osteoporosis (procedure) Med icine [code = 044103462] Future Scheduled 2021-08-27 Pneumococcal 65+ (1 - Ba [facility] Test 09:36:56 PCV) [code = Pneumococcal Me dicine 65+ (1 - PCV)] Future Scheduled 2021-08-27 FLU VACCINE > 6 MONTHS B [facility] Test 09:36:56 [code = FLU VACCINE > 6 Medi cine MONTHS] Future Scheduled 2021-08-13 Screening for malignant [facility] Test 08:16:08 neoplasm of colon Medicine (procedure) [code = 093005904] Future Scheduled 2021-08-13 Screening for malignant [facility] Test 08:16:08 neoplasm of breast Medicine (procedure) [code = 504667206] Future Scheduled 2021-08-13 TETANUS SHOT (ADULT) [facility] Test 08:16:08 [code = TETANUS SHOT Medicin e (ADULT)] Future Scheduled 2021-08-13 BMI FOLLOW UP PLAN [code [facility] Test 08:16:08 = BMI FOLLOW UP PLAN] Medici ne Future Scheduled 2021-08-13 Hepatitis C screening [employer] [facility] Test 08:16:08 (procedure) [code = Medicine [id number]] Future Scheduled 2021-08-13 ZOSTER VACCINE (1 of 2) [facility] Test 08:16:08 [code = ZOSTER VACCINE (1 Me dicine of 2)] Future Scheduled 2021-08-13 COVID-19 Vaccine (2 - [facility] Test 08:16:08 Pfizer series) [code = Medic ine COVID-19 Vaccine (2 - Pfizer series)] Future Scheduled 2021-08-13 MEDICARE IPPE (WELCOME TO [facility] Test 08:16:08 MEDICARE) [code = Medicine MEDICARE IPPE (WELCOME TO MEDICARE)] Future Scheduled 2021-08-13 FALL SCREEN [code = FALL [facility] Test 08:16:08 SCREEN] Medicine Future Scheduled 2021-08-13 Screening for [facility] Test 08:16:08 osteoporosis (procedure) Med icine [code = 918632865] Future Scheduled 2021-08-13 Pneumococcal 65+ (1 - Ba [facility] Test 08:16:08 PCV) [code = Pneumococcal Me dicine 65+ (1 - PCV)] Future Scheduled 2021-08-13 FLU VACCINE > 6 MONTHS B [facility] Test 08:16:08 [code = FLU VACCINE > 6 Medi cine MONTHS] Future Scheduled 2021-06-27 Screening for malignant [facility] Test 14:20:32 neoplasm of colon Medicine (procedure) [code = 689017302] Future Scheduled 2021-06-27 Screening for malignant [facility] Test 14:20:32 neoplasm of breast Medicine (procedure) [code = 050229923] Future Scheduled 2021-06-27 TETANUS SHOT (ADULT) [facility] Test 14:20:32 [code = TETANUS SHOT Medicin e (ADULT)] Future Scheduled 2021-06-27 BMI FOLLOW UP PLAN [code [facility] Test 14:20:32 = BMI FOLLOW UP PLAN] Medici ne Future Scheduled 2021-06-27 Hepatitis C screening [facility] Test 14:20:32 (procedure) [code = Medicine 996888032] Future Scheduled 2021-06-27 ZOSTER VACCINE (1 of 2) [facility] Test 14:20:32 [code = ZOSTER VACCINE (1 Me dicine of 2)] Future Scheduled 2021-06-27 COVID-19 Vaccine (2 - [facility] Test 14:20:32 Pfizer 3-dose series) Medici ne [code = COVID-19 Vaccine (2 - Pfizer 3-dose series)] Future Scheduled 2021-06-27 MEDICARE IPPE (WELCOME TO [facility] Test 14:20:32 MEDICARE) [code = Medicine MEDICARE IPPE (WELCOME TO MEDICARE)] Future Scheduled 2021-06-27 FALL SCREEN [code = FALL [facility] Test 14:20:32 SCREEN] Medicine Future Scheduled 2021-06-27 Screening for [facility] Test 14:20:32 osteoporosis (procedure) Med icine [code = 288019037] Future Scheduled 2021-06-27 Pneumococcal 65+ (1 of 1 [facility] Test 14:20:32 - PPSV23) [code = Medicine Pneumococcal 65+ (1 of 1 - PPSV23)] Future Scheduled 2021-06-27 FLU VACCINE > 6 MONTHS B [facility] Test 14:20:32 [code = FLU VACCINE > 6 Medi cine MONTHS] Future Scheduled 2021-06-16 Medicare IPPE (WELCOME TO [facility] Test 00:00:00 MEDICARE) [code = Medical Ce nter Medicare IPPE (WELCOME TO MEDICARE)] Future Scheduled 2021-04-04 Screening for malignant [facility] Test 13:40:02 neoplasm of colon Medicine (procedure) [code = 963183831] Future Scheduled 2021-04-04 Screening for malignant [facility] Test 13:40:02 neoplasm of breast Medicine (procedure) [code = 014894787] Future Scheduled 2021-04-04 TETANUS SHOT (ADULT) [facility] Test 13:40:02 [code = TETANUS SHOT Medicin e (ADULT)] Future Scheduled 2021-04-04 BMI FOLLOW UP PLAN [code [facility] Test 13:40:02 = BMI FOLLOW UP PLAN] Medici ne Future Scheduled 2021-04-04 Hepatitis C screening [facility] Test 13:40:02 (procedure) [code = Medicine 421982668] Future Scheduled 2021-04-04 Human immunodeficiency B [facility] Test 13:40:02 virus screening Medicine (procedure) [code = 772900294] Future Scheduled 2021-04-04 Screening for malignant [employer] [facility] Test 13:40:02 neoplasm of cervix Medicine (procedure) [code = 276157646] Future Scheduled 2021-04-04 ZOSTER VACCINE (1 of 2) [facility] Test 13:40:02 [code = ZOSTER VACCINE (1 Me dicine of 2)] Future Scheduled 2021-04-04 FLU VACCINE > 6 MONTHS B [facility] Test 13:40:02 [code = FLU VACCINE > 6 Medi cine MONTHS] Future Scheduled 2021-04-04 COVID-19 Vaccine (2 - [facility] Test 13:40:02 Pfizer 3-dose series) Medici ne [code = COVID-19 Vaccine (2 - Pfizer 3-dose series)] Future Scheduled 2021-04-04 Screening for malignant [facility] Test 13:40:02 neoplasm of colon Medicine (procedure) [code = 330394985] Future Scheduled 2021-04-04 Screening for malignant [facility] Test 13:40:02 neoplasm of breast Medicine (procedure) [code = 810817948] Future Scheduled 2021-04-04 TETANUS SHOT (ADULT) [facility] Test 13:40:02 [code = TETANUS SHOT Medicin e (ADULT)] Future Scheduled 2021-04-04 BMI FOLLOW UP PLAN [code [facility] Test 13:40:02 = BMI FOLLOW UP PLAN] Medici ne Future Scheduled 2021-04-04 Hepatitis C screening [facility] [facility] Test 13:40:02 (procedure) [code = Medicine 752880263] Future Scheduled 2021-04-04 Human immunodeficiency B [facility] Test 13:40:02 virus screening Medicine (procedure) [code = 344244900] Future Scheduled 2021-04-04 Screening for malignant [facility] Test 13:40:02 neoplasm of cervix Medicine (procedure) [code = 122916603] Future Scheduled 2021-04-04 ZOSTER VACCINE (1 of 2) [facility] Test 13:40:02 [code = ZOSTER VACCINE (1 Me dicine of 2)] Future Scheduled 2021-04-04 FLU VACCINE > 6 MONTHS B [facility] Test 13:40:02 [code = FLU VACCINE > 6 Medi cine MONTHS] Future Scheduled 2021-04-04 COVID-19 Vaccine (2 - [facility] Test 13:40:02 Pfizer 3-dose series) Medici ne [code = COVID-19 Vaccine (2 - Pfizer 3-dose series)] Future Scheduled 2021-01-25 Screening for malignant [facility] Test 09:15:59 neoplasm of colon Medicine (procedure) [code = 918221621] Future Scheduled 2021-01-25 Screening for malignant [facility] Test 09:15:59 neoplasm of breast Medicine (procedure) [code = 611657574] Future Scheduled 2021-01-25 TETANUS SHOT (ADULT) [facility] Test 09:15:59 [code = TETANUS SHOT Medicin e (ADULT)] Future Scheduled 2021-01-25 Hepatitis C screening Ba [facility] Test 09:15:59 (procedure) [code = Medicine 738987040] Future Scheduled 2021-01-25 Human immunodeficiency B [facility] 09:15:59 virus screening Medicine (procedure) [code = 497644651] Future Scheduled 2021-01-25 Screening for malignant [facility] Test 09:15:59 neoplasm of cervix Medicine (procedure) [code = 678723202] Future Scheduled 2021-01-25 ZOSTER VACCINE (1 of 2) [facility] 09:15:59 [code = ZOSTER VACCINE (1 Me dicine of 2)] Future Scheduled 2021-01-25 FLU VACCINE > 6 MONTHS B [facility] Test 09:15:59 [code = FLU VACCINE > 6 Medi cine MONTHS] Future Scheduled 2021-01-25 COVID-19 Vaccine (2 - [facility] Test 09:15:59 Pfizer 2-dose series) Medici ne [code = COVID-19 Vaccine (2 - Pfizer 2-dose series)] Future Scheduled 2006 SHINGLES VACCINES ([address] [facility] Test 00:00:00 2) [code = SHINGLES Medical Center VACCINES (1 of 2)] Future Scheduled 1977 Screening for malignant [facility] Test 00:00:00 neoplasm of cervix Medical C enter (procedure) [code = 709762633] Future Scheduled 1975-06-20 DTAP/TDAP/TD VACCINES ([address] [facility] Test 00:00:00 - Tdap) [code = Medical Cent er DTAP/TDAP/TD VACCINES (1 - Tdap)] Future Scheduled 1974 HEPATITIS C SCREENING [facility] Test 00:00:00 [code = HEPATITIS C Medical Center SCREENING] Future Scheduled 1962 PNEUMOCOCCAL 65+ YRS (1 - [facility] Test 00:00:00 PCV) [code = PNEUMOCOCCAL Me dical Center 65+ YRS (1 - PCV)] Future Scheduled 1956 COVID-19 VACCINE (#1) [facility] Test 00:00:00 [code = COVID-19 VACCINE Med ical Center (#1)] Future Scheduled 1956 Screening for malignant [facility] Test 00:00:00 neoplasm of breast Medical C enter (procedure) [code = 130068134] Future Scheduled 1956 CT Colonography (combo) [facility] Test 00:00:00 [code = CT Colonography [facility] (combo)] Future Scheduled 1956 Screening for malignant [facility] Test 00:00:00 neoplasm of colon Medical Ce nter (procedure) [code = 208605340] Future Scheduled 1956 Screening for malignant [facility] Test 00:00:00 neoplasm of colon Medical Ce nter (procedure) [code = 439261652] Future Scheduled 1956 DXA SCAN [code = DXA [facility] Test 00:00:00 SCAN] Medical Center Future Scheduled 1956 Screening for malignant [facility] Test 00:00:00 neoplasm of colon Medical Ce nter (procedure) [code = 552982124] Future Scheduled 1956 Screening for malignant [facility] Test 00:00:00 neoplasm of colon Medical Ce nter (procedure) [code = 088434891] Future Scheduled 1956 Sigmoidoscopy [code = [facility] Test 00:[facility] S[facility]oscopy] Medical Cente r Future Scheduled COVID-19 VACCINE (1) [facility] Test [code = COVID-19 VACCINE Hos pital (1)] Future Scheduled Hepatitis C screening [facility] Test (procedure) [code = Hospital 508502861] Future Scheduled Screening for malignant [facility] neoplasm of cervix Hospital (procedure) [code = 549143456] Future Scheduled BREAST CANCER SCREENING [facility] [code = BREAST CANCER Hospit al SCREENING] Future Scheduled COLONOSCOPY SCREENING Me [facility]odist Test [code = COLONOSCOPY Hospital SCREENING] Future Scheduled SHINGLES VACCINES (#1) M ethodist Test [code = SHINGLES VACCINES Ho spital (#1)] Future Scheduled INFLUENZA VACCINE [code = [facility] INFLUENZA VACCINE] Hospital Encounters Start End Encounter Admission Attending Care Care Encounter Source Date/Time Date/Time Type Type Clinicians Facility Department ID 2021-11-14 Inpatient ALEJANDRO JENKINS [facility] Surgery [id number] [facility] 13:08:45 2021-09-11 Inpatient ALEJANDRO JENKINS [facility] Surgery [id number] [facility] 10:44:45 2021-11-15 2021-11-15 Outpatient [facility] [id number] [facility] 17:07:15 23:59:00 2021-10-16 2021-10-30 [facility] ER Antoni Flannery [facility] [id number] 10:06:00 15:30:[address] [facility] Mirian Gomez [facility] 2021-10-16 2021-10-30 Inpatient ER [facility] Surgery [id number] [facility] 10:06:00 15:30:00 2021-10-26 2021-10-26 Outpatient [facility] [id number] [facility] 11:45:00 23:59:00 Alfredo 2021-10-25 2021-10-25 Anesthesia Kevan Noe [facility] [id number] 13:19:00 13:54:00 Event Radha Parnell [facility] 2021-10-18 2021-10-18 Anesthesia Caio Singh [facility] [id number] 09:24:00 19:32:20 Event Cooper Chand [facility] 2021-10-18 2021-10-18 Surgery Redd [facility] [id number] 09:30:00 19:01:00 [facility] 2021-10-17 2021-10-17 Travel [facility] [id number] [facility] 00:00:00 00:00:00 [facility] 2021-10-16 2021-10-16 Outpatient [facility] [id number] [facility] 10:06:00 23:59:00 [facility] 2021-10-16 2021-10-16 Outpatient [facility] [id number] [facility] 00:00:00 23:59:00 [facility] 2021-10-16 2021-10-16 Outpatient EL [facility] [id number] SLE 08:06:53 10:05:00 2021-10-16 2021-10-16 [facility] [id number] 08:00:00 10:05:00 Encounter [facility] 2021-10-16 2021-10-16 Travel [facility] [id number] [facility] 00:[facility]:00 00:00:00 [facility] 2021-10-15 2021-10-15 Outpatient JENKINS, [facility] [id number] [facility] 12:50:33 13:55:27 [facility] 2021-10-14 2021-10-14 [facility] [id number] 23:59:00 23:59:00 Encounter [facility] 2021-10-14 2021-10-14 Outpatient [facility] [id number] SLE 00:00:00 23:59:00 2021-10-02 2021-10-08 Hospital ER Daphne Little [facility] [id number] 16:08:00 16:34:00 Encounter Rashida Peña [facility] 2021-10-02 2021-10-08 Inpatient ER IZZY [facility] Emergency [id number] SLE 16:08:00 16:34:00 [facility] 2021-10-02 2021-10-02 Outpatient [facility] [id number] [facility] 00:00:00 23:59:00 [facility] 2021-10-02 2021-10-02 [id number] [facility] 10:33:15 12:00:50 [facility] 2021-10-02 2021-10-02 Orders [facility] [id number] 00:00:00 00:00:00 Only [facility] 2021-10-02 2021-10-02 Travel [facility] [id number] [facility] 00:00[facility]00 00:00:00 [facility] 2021-09-20 2021-09-20 Outpatient [facility] [id number] [facility] 13:50:46 23:59:00 2021-09-20 2021-09-20 [facility] [id number] 11:05:00 23:59:00 Encounter [facility] 2021-09-17 2021-09-17 [id number] [facility] 12:47:54 13:23:39 [facility] 2021-08-27 2021-08-27 Office JENKINS, [facility] 1.2.840.114 [id number] [facility] 08:46:50 11:11:12 Visit Purvi 350.1.13.21 Co llege 0.2.7.2.686 of [id number] Medi renea 510 e 2021-08-13 2021-08-15 [facility] Lesa Louie [facility] [id number] 13:37:00 20:00:00 [facility]counter [facility] [place] [facility] 2021-08-13 2021-08-15 Inpatient [facility] [id number] [facility] 13:37:00 20:00:00 [facility] 2021-08-13 2021-08-13 Office JENKINS, [facility] 1.2.840.114 [id number] [facility] 07:25:12 09:53:42 Visit Purvi 350.1.13.21 Co llege 0.2.7.2.686 of [id number] Medi renea 510 e 2021-08-13 2021-08-13 Travel [facility] [id number] [facility] 00:00[facility]00 00:00:00 [facility] 2021-07-16 2021-07-16 Outpatient [facility] [id number] [facility] 08:53:05 23:59:00 [facility] 2021-06-27 2021-06-27 Office MARTA ADINA 1.2.840.114 [id number] [facility] 13:13:17 16:06:41 Visit MANREET AMBULATOR 350.1.13.21 College Y 0.2.7.2.686 [id number] Medi renea 325 e 2021-06-11 2021-06-11 Outpatient HIRO JENKINS [facility] [id number] [facility] 14:50:55 15:38:46 [facility] 2021-05-20 2021-05-20 Outpatient [facility] [id number] [facility] 08:32:32 23:59:00 [facility] 2021-05-17 2021-05-19 [facility] ER [facility] [id number] 05:35:00 16:42:00 Encounter Bob Larsonf, [facility] 2021-05-17 2021-05-19 Inpatient ER [facility] [id number] [facility] 05:35:00 16:42:00 [facility] 2021-05-17 2021-05-17 Outpatient [facility] [id number] [facility] 00:00:00 23:59:00 [facility] 2021-05-17 2021-05-17 Orders [facility] [id number] 00:00:00 00:00:00 Only [facility] 2021-05-17 2021-05-17 Travel [facility] [id number] [facility] 00:00:00 00:00:00 [facility] 2021-04-22 2021-04-22 Outpatient [facility] [id number] [facility] 08:34:02 23:59:00 [facility] 2021-04-08 2021-04-08 Outpatient [facility] [id number] [facility] 08:22:34 23:59:00 [facility] 2021-03-29 2021-03-29 Office ADINA Lozano 1.2.840.114 [id number] [facility] 11:00:00 13:34:50 Visit Manreet AMBULATOR 350.1.13.21 College Y 0.2.7.2.686 of [id number] Medi renea 325 e 2021-03-01 2021-03-01 Office KIM Lozano 1.2.840.114 [id number] [facility] 09:00:00 11:07:59 Visit Manreet AMBULATOR 350.1.13.21 College Y 0.2.7.2.686 of [id number] Medi renea 325 e 2021-02-03 2021-02-06 Hospital ER Haven Vann [facility] [id number] [facility] St 05:14:00 16:07:[address] [facility] 2021-02-03 2021-02-06 Inpatient ER [facility] [id number] [facility] 05:14:00 16:07:00 OBINNA 2021-02-03 2021-02-03 Travel [facility] [id number] [facility] 00:00[facility]00 00:00:00 [facility] 2021-01-25 2021-01-25 Office KIM LOZANO 1.2.840.114 [id number] [facility] 00:00:00 19:54:04 Visit MANREET AMBULATOR 350.1.13.21 College Y 0.2.7.2.686 of [id number] Medi renea 325 e 2020-09-12 2020-09-12 Toby Clemons 1.2.840.1 [id number] [facility] 00:00:00 00:00:00 Ace Taylor [address]69.1.[address] 3.430.2.7 Hospit a .3.855225 l .8 2020-06-11 2020-06-11 Refevan Clemons 1.2.840.1 [id number] [facility] 00:00:00 00:00:00 Ace Taylor [address]32.1.[address] 3.430.2.7 Hospit a .3.309492 l .8 2020-03-12 2020-03-12 Orders Javier May 1.2.840.1 [id number] [facility] 00:00:00 00:00:[address] 3.430.2.7 Hospit a .3.499121 l .8 Results Test Description Test Time Test Comments Results Result Comments Source POC-Glucose meter 2021-10-30 14:46:55 Test Item Value Reference Range Interpretation Comme nts POC-Glucose Meter (test code = 132 mg/dL 70-110 H : TESTED AT [facility] [address] 15[address]) [facility], 770 30: Laboratory Assistant/Techni benjamin ID = [id number] for JEFF LAZARO Lab Interpretation (test code = Abnormal 23188-4) [facility] [id number] 14:46:55 Test Item Value Reference Range Interpretation Comments POC-GLUCOSE METER 132 mg/dL 70-110 H : TESTED A T [facility] [address] (BEAKER) (test code = [address] [facility], 1538) [address]: Laboratory Assistant/Techni benjamin ID = [id number] for JEFF DURAN [id number] 07:32:29 Test Item Value Reference Range Interpretation Comments PHOSPHORUS (BEAKER) (test code = 3.8 mg/dL 2.3-4.7 604) Laboratory Assistant ID - DEANNA MBASIC METABOLIC [id number] 07:32:28 Test Item Value Reference Range Interpretation Comments SODIUM (BEAKER) 141 meq/L 136-145 (test code = 381) POTASSIUM 3.8 meq/L 3.5-5.1 (BEAKER) (test code = 379) CHLORIDE (BEAKER) 101 meq/L 98-107 (test code = 382) CO2 (BEAKER) 32 meq/L 22-29 H (test code = 355) BLOOD UREA 17 mg/dL 7-21 NITROGEN (BEAKER) (test code = 354) CREATININE 0.56 mg/dL 0.57-1.25 L (BEAKER) (test code = 358) GLUCOSE RANDOM 123 mg/dL 70-105 H (BEAKER) (test code = 652) CALCIUM (BEAKER) 8.8 mg/dL 8.4-10.2 (test code = 697) EGFR (BEAKER) 101 Interpretatio n of eGFR (test code = mL/min/1.73 values Stage De scription 1092) sq m Result G1 Edel l or high >=90 G2 Mildly decreased 60-89 G3a Mildl y to moderately 45-5 9 G3b Moderately to s everely 30-44 G4 Severl y decreased 15-29 G5 Kidney failure <15Reported eGF R is based on the CKD-EPI 2020 equation that d oes not use a race coefficientEsti mated GFR is not as accur ate as Creatinine Ama geoffrey in predicting glom erular filtration rate . Estimated GFR is not appl icable for dialysis patien ts Laboratory Assistant ID - DEANNA [id number] 07:32:28 Test Item Value Reference Range Interpretation Comments MAGNESIUM (BEAKER) (test code = 1.8 mg/dL 1.6-2.6 627) Laboratory Assistant ID - DEANNA MCBC (HEMOGRAM ONLY)2021-10-30 06:19:10 Test Item Value Reference Range Interpretation Comments WHITE BLOOD CELL COUNT (BEAKER) 5.2 K/ L 3.5-10.5 (test code = 775) RED BLOOD CELL COUNT (BEAKER) 3.03 M/ L 3.93-5.22 L (test code = 761) HEMOGLOBIN (BEAKER) (test code = 8.0 GM/DL 11.2-15.7 L 410) HEMATOCRIT (BEAKER) (test code = 27.3 % 34.1-44.9 L 411) MEAN CORPUSCULAR VOLUME (BEAKER) 90.1 fL 79.4-94.8 (test code = 753) MEAN CORPUSCULAR HEMOGLOBIN 26.4 pg 25.6-32.2 (BEAKER) (test code = 751) MEAN CORPUSCULAR HEMOGLOBIN CONC 29.3 GM/DL 32.2-35.5 L (BEAKER) (test code = 752) RED CELL DISTRIBUTION WIDTH 17.0 % 11.7-14.4 H (BEAKER) (test code = 412) PLATELET COUNT (BEAKER) (test 456 K/CU MM 150-450 H code = 756) MEAN PLATELET VOLUME (BEAKER) 9.5 fL 9.4-12.3 (test code = 754) NUCLEATED RED BLOOD CELLS 0 /100 WBC 0-0 (BEAKER) (test code = 413) POCT-GLUCOSE [id number] 05:53:28 Test Item Value Reference Range Interpretation Comments POC-GLUCOSE METER 138 mg/dL 70-110 H : TESTED A T [facility] 6720 (BEAKER) (test code = [facility], 1538) [address]: Laboratory Assistant/Techni benjamin ID = [id number] for Ty ler, Reshawn POCT-GLUCOSE [id number] 01:03:47 Test Item Value Reference Range Interpretation Comments POC-GLUCOSE METER 122 mg/dL 70-110 H : TESTED A T [facility] 6720 (BEAKER) (test code = [facility], [facility]8) [address]: Laboratory Assistant/Techni benjamin ID = [id number] for Ty ler, Reshawn POCT-GLUCOSE [id number] 17:48:41 Test Item Value Reference Range Interpretation Comments POC-GLUCOSE METER 92 mg/dL 70-110 : TESTED A T [facility] 6720 (BEAKER) (test code = [facility], 1538) [address]: Laboratory Assistant/Techni bejnamin ID = [id number] for KIESHA RODRIGUEZECA POCT-GLUCOSE [id number] 16:52:45 Test Item Value Reference Range Interpretation Comments POC-GLUCOSE METER 131 mg/dL 70-110 H : TESTED A T [facility] 6720 (BEAKER) (test code = [facility], 1538) 214[address]: Laboratory Assistant/Techni benjamin ID = [id number] for ZACKERY RODRIGUESERS, JAMECA BASIC METABOLIC [id number] 07:17:57 Test Item Value Reference Range Interpretation Comments SODIUM (BEAKER) 135 meq/L 136-145 L (test code = 381) POTASSIUM 4.4 meq/L 3.5-5.1 Specimen slight ly (BEAKER) (test hemolyzed code = 379) CHLORIDE (BEAKER) 99 meq/L 98-107 (test code = 382) CO2 (BEAKER) 24 meq/L 22-29 (test code = 355) BLOOD UREA 15 mg/dL 7-21 NITROGEN (BEAKER) (test code = 354) CREATININE 0.64 mg/dL 0.57-1.25 Specimen slight ly (BEAKER) (test hemolyzed code = 358) GLUCOSE RANDOM 224 mg/dL 70-105 H (BEAKER) (test code = 652) CALCIUM (BEAKER) 8.4 mg/dL 8.4-10.2 (test code = 697) EGFR (BEAKER) 98 Interpretatio n of eGFR (test code = mL/min/1.73 values Stage De scription 1092) sq m Result G1 Edel l or high >=90 G2 Mildly decreased 60-89 G3a Mildl y to moderately 45-5 9 G3b Moderately to s everely 30-44 G4 Severl y decreased 15-29 G5 Kidney failure <15Reported eGF R is based on the CKD-EPI 2020 equation that d oes not use a race coefficientEsti mated GFR is not as accur ate as Creatinine Ama geoffrey in predicting glom erular filtration rate . Estimated GFR is not appl icable for dialysis patien ts Laboratory Assistant ID - PINANCIE [id number] 07:17:56 Test Item Value Reference Range Interpretation Comments MAGNESIUM (BEAKER) 1.9 mg/dL 1.6-2.6 Specimen slightly (test code = 627) hemolyzed Laboratory Assistant ID - KARMEN [id number] 07:17:56 Test Item Value Reference Range Interpretation Comments PHOSPHORUS (BEAKER) 4.1 mg/dL 2.3-4.7 Specimen slightly (test code = 604) hemolyzed Laboratory Assistant ID - PINANCIE LCBC (HEMOGRAM ONLY)2021-10-29 05:48:09 Test Item Value Reference Range Interpretation Comments WHITE BLOOD CELL COUNT (BEAKER) 5.1 K/ L 3.5-10.5 (test code = 775) RED BLOOD CELL COUNT (BEAKER) 3.32 M/ L 3.93-5.22 L (test code = 761) HEMOGLOBIN (BEAKER) (test code = 8.6 GM/DL 11.2-15.7 L 410) HEMATOCRIT (BEAKER) (test code = 28.8 % 34.1-44.9 L 411) MEAN CORPUSCULAR VOLUME (BEAKER) 86.7 fL 79.4-94.8 (test code = 753) MEAN CORPUSCULAR HEMOGLOBIN 25.9 pg 25.6-32.2 (BEAKER) (test code = 751) MEAN CORPUSCULAR HEMOGLOBIN CONC 29.9 GM/DL 32.2-35.5 L (BEAKER) (test code = 752) RED CELL DISTRIBUTION WIDTH 17.2 % 11.7-14.4 H (BEAKER) (test code = 412) PLATELET COUNT (BEAKER) (test 510 K/CU MM 150-450 H code = 756) MEAN PLATELET VOLUME (BEAKER) 9.5 fL 9.4-12.3 (test code = 754) NUCLEATED RED BLOOD CELLS 0 /100 WBC 0-0 (BEAKER) (test code = 413) POCT-GLUCOSE [id number] 05:24:23 Test Item Value Reference Range Interpretation Comments POC-GLUCOSE METER 92 mg/dL 70-110 : TESTED A T [facility] 6720 (BEAKER) (test code = [facility], 153) [address]: Laboratory Assistant/Techni benjamin ID = [id number] for Merna garcia Rajeshmaycol POCT-GLUCOSE [id number] 18:10:52 Test Item Value Reference Range Interpretation Comments POC-GLUCOSE METER 99 mg/dL 70-110 : TESTED A T [facility] 6720 (BEAKER) (test code = [facility], 1538) [address]: Laboratory Assistant/Techni benjamin ID = [id number] for Clif Leyvace POCT-GLUCOSE [id number] 05:38:04 Test Item Value Reference Range Interpretation Comments POC-GLUCOSE METER 112 mg/dL 70-110 H : TESTED A T [facility] 6720 (BEAKER) (test code = [facility], 1538) [address]: Laboratory Assistant/Techni benjamin ID = [id number] for BRIAN QUIGLEY [id number] 04:41:29 Test Item Value Reference Range Interpretation Comments MAGNESIUM (BEAKER) (test code = 1.9 mg/dL 1.6-2.6 627) Laboratory Assistant ID - CASANDRA [id number] 04:41:29 Test Item Value Reference Range Interpretation Comments PHOSPHORUS (BEAKER) (test code = 4.0 mg/dL 2.3-4.7 604) Laboratory Assistant ID Kimberlee GUAJARDO WBASIC METABOLIC [id number] 04:41:28 Test Item Value Reference Range Interpretation Comments SODIUM (BEAKER) 139 meq/L 136-145 (test code = 381) POTASSIUM 3.8 meq/L 3.5-5.1 (BEAKER) (test code = 379) CHLORIDE (BEAKER) 101 meq/L 98-107 (test code = 382) CO2 (BEAKER) 31 meq/L 22-29 H (test code = 355) BLOOD UREA 17 mg/dL 7-21 NITROGEN (BEAKER) (test code = 354) CREATININE 0.58 mg/dL 0.57-1.25 (BEAKER) (test code = 358) GLUCOSE RANDOM 113 mg/dL 70-105 H (BEAKER) (test code = 652) CALCIUM (BEAKER) 8.7 mg/dL 8.4-10.2 (test code = 697) EGFR (BEAKER) 100 Interpretatio n of eGFR (test code = mL/min/1.73 values Stage De scription 1092) sq m Result G1 Edel l or high >=90 G2 Mildly decreased 60-89 G3a Mildl y to moderately 45-5 9 G3b Moderately to s everely 30-44 G4 Sever ly decreased 15-29 G5 Kidney failure <15Repo rted eGFR is based on the CKD-EPI 2020 equation t hat does not use a race coefficientEsti mated GFR is not as accur ate as Creatinine Ama hale in predicting glom erular filtration rate . Estimated GFR is not appl icable for dialysis patien ts Laboratory Assistant ID Kimberlee GUAJARDO WCBC (HEMOGRAM ONLY)2021-10-28 04:10:37 Test Item Value Reference Range Interpretation Comments WHITE BLOOD CELL COUNT (BEAKER) 4.4 K/ L 3.5-10.5 (test code = 775) RED BLOOD CELL COUNT (BEAKER) 3.19 M/ L 3.93-5.22 L (test code = 761) HEMOGLOBIN (BEAKER) (test code = 8.2 GM/DL 11.2-15.7 L 410) HEMATOCRIT (BEAKER) (test code = 28.0 % 34.1-44.9 L 411) MEAN CORPUSCULAR VOLUME (BEAKER) 87.8 fL 79.4-94.8 (test code = 753) MEAN CORPUSCULAR HEMOGLOBIN 25.7 pg 25.6-32.2 (BEAKER) (test code = 751) MEAN CORPUSCULAR HEMOGLOBIN CONC 29.3 GM/DL 32.2-35.5 L (BEAKER) (test code = 752) RED CELL DISTRIBUTION WIDTH 17.1 % 11.7-14.4 H (BEAKER) (test code = 412) PLATELET COUNT (BEAKER) (test 453 K/CU MM 150-450 H code = 756) MEAN PLATELET VOLUME (BEAKER) 9.5 fL 9.4-12.3 (test code = 754) NUCLEATED RED BLOOD CELLS 0 /100 WBC 0-0 (AKER) (test code = 413) POCT-GLUCOSE [id number] 23:36:46 Test Item Value Reference Range Interpretation Comments POC-GLUCOSE METER 95 mg/dL 70-110 : Notified RN/MD: TESTED ([facility]) (test code = AT [facility] [address] [address]) [facility], [facility] 30: Laboratory Assistant/Techni benjamin ID = [id number] for ANTONY HORVATH POCT-GLUCOSE [id number] 17:44:47 Test Item Value Reference Range Interpretation Comments POC-GLUCOSE METER 86 mg/dL 70-110 : TESTED A T [facility] 6720 ([facility]) (test code = [facility], [facility]8) [address]: Laboratory Assistant/Techni benjamin ID = [id number] for Samara prince, Saray POCT-GLUCOSE [id number] 12:11:27 Test Item Value Reference Range Interpretation Comments POC-GLUCOSE METER 122 mg/dL 70-110 H : TESTED A T [facility] 6720 ([facility]) (test code = [facility] R [facility], [facility]8) [address]: Laboratory Assistant/Techni benjamin ID = [id number] for Sixto shafer, Saray POCT-GLUCOSE [id number] 06:55:22 Test Item Value Reference Range Interpretation Comments POC-GLUCOSE METER 95 mg/dL 70-110 : Notified RN/MD: TESTED ([facility]) (test code = AT [facility] [address] [id number]) [place], [address]: Laboratory Assistant/Techni benjamin ID = [id number] for ANTONY HORVATH [id number] 06:37:06 Test Item Value Reference Range Interpretation Comments MAGNESIUM (BEAKER) (test code = 2.0 mg/dL 1.6-2.6 627) Laboratory Assistant ID - KARMEN [id number] 06:37:06 Test Item Value Reference Range Interpretation Comments PHOSPHORUS (BEAKER) (test code = 3.8 mg/dL 2.3-4.7 604) Laboratory Assistant ID - PINANCIE LBASIC METABOLIC [id number] 06:37:05 Test Item Value Reference Range Interpretation Comments SODIUM (BEAKER) 140 meq/L 136-145 (test code = 381) POTASSIUM 3.8 meq/L 3.5-5.1 (BEAKER) (test code = 379) CHLORIDE (BEAKER) 101 meq/L 98-107 (test code = 382) CO2 (BEAKER) 26 meq/L 22-29 (test code = 355) BLOOD UREA 15 mg/dL 7-21 NITROGEN (BEAKER) (test code = 354) CREATININE 0.58 mg/dL 0.57-1.25 (BEAKER) (test code = 358) GLUCOSE RANDOM 112 mg/dL 70-105 H (BEAKER) (test code = 652) CALCIUM (BEAKER) 8.9 mg/dL 8.4-10.2 (test code = 697) EGFR (BEAKER) 100 Interpretatio n of eGFR (test code = mL/min/1.73 values Stage De scription 1092) sq m Result G1 Edel l or high >=90 G2 Mildly decreased 60-89 G3a Mildl y to moderately 45-5 9 G3b Moderately to s everely 30-44 G4 Severl y decreased 15-29 G5 Kidney failure <15Reported eGF R is based on the CKD-EPI 2020 equation that d oes not use a race coefficientEsti mated GFR is not as accur ate as Creatinine Ama geoffrey in predicting glom erular filtration rate . Estimated GFR is not appl icable for dialysis patien ts Laboratory Assistant ID - KARMEN LCBC (HEMOGRAM ONLY)2021-10-27 05:49:14 Test Item Value Reference Range Interpretation Comments WHITE BLOOD CELL COUNT (BEAKER) 4.4 K/ L 3.5-10.5 (test code = 775) RED BLOOD CELL COUNT (BEAKER) 3.22 M/ L 3.93-5.22 L (test code = 761) HEMOGLOBIN (BEAKER) (test code = 8.6 GM/DL 11.2-15.7 L 410) HEMATOCRIT (BEAKER) (test code = 28.5 % 34.1-44.9 L 411) MEAN CORPUSCULAR VOLUME (BEAKER) 88.5 fL 79.4-94.8 (test code = 753) MEAN CORPUSCULAR HEMOGLOBIN 26.7 pg 25.6-32.2 (BEAKER) (test code = 751) MEAN CORPUSCULAR HEMOGLOBIN CONC 30.2 GM/DL 32.2-35.5 L (BEAKER) (test code = 752) RED CELL DISTRIBUTION WIDTH 17.0 % 11.7-14.4 H (BEAKER) (test code = 412) PLATELET COUNT (BEAKER) (test 462 K/CU MM 150-450 H code = 756) MEAN PLATELET VOLUME (BEAKER) 9.7 fL 9.4-12.3 (test code = 754) NUCLEATED RED BLOOD CELLS 0 /100 WBC 0-0 (BEAKER) (test code = 413) POCT-GLUCOSE [id number] 01:56:21 Test Item Value Reference Range Interpretation Comments POC-GLUCOSE METER 104 mg/dL 70-110 : TESTED A T [facility] 6720 ([facility]) (test code = MIHAELA Garcia [facility], 1538) [address]: Laboratory Assistant/Techni benjamin ID = [id number] for BRIAN QUIGLEY POCT-GLUCOSE [id number] 23:32:59 Test Item Value Reference Range Interpretation Comments POC-GLUCOSE METER 85 mg/dL 70-110 : Notified RN/MD: TESTED (BEAKER) (test code = AT [facility] 67[address] [facility] 1538) [facility], [address]: Laboratory Assistant/Techni benjamin ID = [id number] for ANTONY HORVATH SHORT-LATENCY SPE, ALL [id number] 20:09:00IOM [facility] KINDRA NOVOA : 1955 Sex: FINTRAOPERATIVE MONITORING REPORT Patient Name: Kindra Novoa Location: [facility], [facility] Surgery Date: 10/18/2021 [place] Pro: [id number] Surgeon: Yarely Roman Monitoring Technologist: Rachael Baker M.S. CNTHU Start time (hvac technician residential): 1028 End time (hvac technician residential): 183 Examining Neurologist #1: Stanley Briscoe M.D. Start time (incision): 113 End time: 183 Procedur e: Corpectomy T4-T10 Stimulation Parameters: Ulnar nerves individually stimulated at the wrist Rate 4.7Hz, Intensity 30mA, Duration 0.3ms Posterior Tibial nerves individually stimulated at the ankle Rate 4.7Hz, Intensity 60mA, Duration 0.3ms Filters 30-500Hz, Notch Off Intensity 100-600V, Train Rate 4-5, ROSALIE 2-3ms Motor strip stimulated anterior to C3 and C4 with alternating polarities Filters 30-2KHz, Notch Off Recording Parameters: EP1, EP2, CV, CP3, CP4, CPz, and FPz Free-running EEG recorded with bipolar derivation, using modified International 10/20 placements: C3-FPZ, C4-FPZ Technical Description: Bilateral SSEPs-Upper: SSEP baselines to individual median nerve stimulation at the wrists were reproducible and reliable. Cortical, subcortical and peripheral waveforms were recorded from the sensory, sub-thalamic, and peripheral generators. There were no significant changes in either the latency (>10%) or amplitude (>50%) from baselines throughout the case. The surgeon was apprised of all results. Bilateral SSEPs-Lower: SSEP baselines to left posterior tibial nerve stimulation were reproducible and reliable. Right posterior tibial nerve SSEP baselines were unobtainable. Cortical, sub-cortical, and peripheral waveforms were recorded from the sensory cortical, sub-thalamic, andperipheral generators. There were no significant changes in either the latency (>10%) or amplitude (>50%) from baselines throughout the case in the right tibial nerve SSEPs. The surgeon was apprised of all results.Bilateral TCeMEPs: Upper TCMEP waveforms were present and reliable at baseline. TCMEPs were run intermittently throughout the procedure until closing, and there were no significant changes observed in the bilateral upper extremities. Lower TceMEP baselines were unobtainable at baseline despite exhaustive technical troubleshooting and verification of appropriate anesthesia conducive to MEP recording. The surgeon was informed of the inability to reliably monitor the Lower motor pathways, and the surgeon acknowledged. The surgeon was informed of the status of TCMEP responses after each test and the final results at closing. IMPRESSION: No significant change in upper or lower somatosensory evoked potentials during the procedure. No significant changes in the transcranial motor evoked potentials during the procedure. Signature line: Stanley Briscoe MD, PhD ICD10/Diagnosis: S22.060A [id number] 14:57:07 Test Item Value Reference Range Interpretation Comments TRIGLYCERIDES (BEAKER) (test code = 97 mg/dL 540) TRIGLYCERIDE REFERENCE RANGELow Risk <150Borderline Risk 150-199High Risk 200-499Very High Risk >=500Operator ID - DEANNA MBASIC METABOLIC PANEL 2021-10-26 14:57:06 Test Item Value Reference Range Interpretation Comments SODIUM (BEAKER) 140 meq/L 136-145 (test code = 381) POTASSIUM 4.4 meq/L 3.5-5.1 (BEAKER) (test code = 379) CHLORIDE (BEAKER) 101 meq/L 98-107 (test code = 382) CO2 (BEAKER) 32 meq/L 22-29 H (test code = 355) BLOOD UREA 15 mg/dL 7-21 NITROGEN (BEAKER) (test code = 354) CREATININE 0.54 mg/dL 0.57-1.25 L (BEAKER) (test code = 358) GLUCOSE RANDOM 105 mg/dL 70-105 (BEAKER) (test code = 652) CALCIUM (BEAKER) 8.8 mg/dL 8.4-10.2 (test code = 697) EGFR (BEAKER) 102 Interpretatio n of eGFR (test code = mL/min/1.73 values Stage De scription 1092) sq m Result G1 Norm al or high >=90 G2 Mildly decreased 60-89 G3a Mildl y to moderately 45-5 9 G3b Moderately to s everely 30-44 G4 Severl y decreased 15-29 G5 Kidney failure <15Reported eGF R is based on the CKD-EPI 2020 equation that d oes not use a race coefficientEsti mated GFR is not as accur ate as Creatinine Ama geoffrey in predicting glom erular filtration rate . Estimated GFR is not appl icable for dialysis patien ts Laboratory Assistant ID - DEANNA [id number] 08:13:21 Test Item Value Reference Range Interpretation Comments MAGNESIUM (BEAKER) (test code = 2.9 mg/dL 1.6-2.6 H 627) Laboratory Assistant ID - DEANNA [id number] 08:13:21 Test Item Value Reference Range Interpretation Comments PHOSPHORUS (BEAKER) (test code = 4.7 mg/dL 2.3-4.7 604) Laboratory Assistant ID - DEANNA MCALCIUM, [id number] 06:52:07 Test Item Value Reference Range Interpretation Comments CALCIUM IONIZED (BEAKER) (test 1.11 mmol/L 1.12-1.27 L code = 698) PH, BLOOD (BEAKER) (test code = 7.27 1810) CBC (HEMOGRAM ONLY)2021-10-26 06:14:05 Test Item Value Reference Range Interpretation Comments WHITE BLOOD CELL COUNT (BEAKER) 4.7 K/ L 3.5-10.5 (test code = 775) RED BLOOD CELL COUNT (BEAKER) 2.90 M/ L 3.93-5.22 L (test code = 761) HEMOGLOBIN (BEAKER) (test code = 7.8 GM/DL 11.2-15.7 L 410) HEMATOCRIT (BEAKER) (test code = 25.3 % 34.1-44.9 L 411) MEAN CORPUSCULAR VOLUME (BEAKER) 87.2 fL 79.4-94.8 (test code = 753) MEAN CORPUSCULAR HEMOGLOBIN 26.9 pg 25.6-32.2 (BEAKER) (test code = 751) MEAN CORPUSCULAR HEMOGLOBIN CONC 30.8 GM/DL 32.2-35.5 L (BEAKER) (test code = 752) RED CELL DISTRIBUTION WIDTH 16.7 % 11.7-14.4 H (BEAKER) (test code = 412) PLATELET COUNT (BEAKER) (test 451 K/CU MM 150-450 H code = 756) MEAN PLATELET VOLUME (BEAKER) 9.7 fL 9.4-12.3 (test code = 754) NUCLEATED RED BLOOD CELLS 0 /100 WBC 0-0 (BEAKER) (test code = 413) Transesophageal [id number] 15:28:47Ejection FractionSLEH ECHO HEARTLAB MKCKESSON [facility] [id number] 14:00:54 Test Item Value Reference Range Interpretation Comments CULTURE (BEAKER) (test No growth in 5 days code = 1095) BLOOD [id number] 13:00:56 Test Item Value Reference Range Interpretation Comments CULTURE (BEAKER) (test No growth in 5 days code = 1095) CBC (HEMOGRAM ONLY)2021-10-25 06:09:38 Test Item Value Reference Range Interpretation Comments WHITE BLOOD CELL COUNT (BEAKER) 5.3 K/ L 3.5-10.5 (test code = 775) RED BLOOD CELL COUNT (BEAKER) 3.06 M/ L 3.93-5.22 L (test code = 761) HEMOGLOBIN (BEAKER) (test code = 8.0 GM/DL 11.2-15.7 L 410) HEMATOCRIT (BEAKER) (test code = 26.6 % 34.1-44.9 L 411) MEAN CORPUSCULAR VOLUME (BEAKER) 86.9 fL 79.4-94.8 (test code = 753) MEAN CORPUSCULAR HEMOGLOBIN 26.1 pg 25.6-32.2 (BEAKER) (test code = 751) MEAN CORPUSCULAR HEMOGLOBIN CONC 30.1 GM/DL 32.2-35.5 L (BEAKER) (test code = 752) RED CELL DISTRIBUTION WIDTH 16.6 % 11.7-14.4 H (BEAKER) (test code = 412) PLATELET COUNT (BEAKER) (test 414 K/CU MM 150-450 code = 756) MEAN PLATELET VOLUME (BEAKER) 9.7 fL 9.4-12.3 (test code = 754) NUCLEATED RED BLOOD CELLS 0 /100 WBC 0-0 (BEAKER) (test code = 413) [id number] 05:50:03 Test Item Value Reference Range Interpretation Comments PHOSPHORUS (BEAKER) (test code = 3.7 mg/dL 2.3-4.7 604) Laboratory Assistant ID - DEANNA [id number] 05:50:02 Test Item Value Reference Range Interpretation Comments MAGNESIUM (BEAKER) (test code = 1.9 mg/dL 1.6-2.6 627) Laboratory Assistant ID - DEANNA MBASIC METABOLIC [id number] 05:50:01 Test Item Value Reference Range Interpretation Comments SODIUM (BEAKER) 139 meq/L 136-145 (test code = 381) POTASSIUM 3.9 meq/L 3.5-5.1 (BEAKER) (test code = 379) CHLORIDE (BEAKER) 100 meq/L 98-107 (test code = 382) CO2 (BEAKER) 31 meq/L 22-29 H (test code = 355) BLOOD UREA 13 mg/dL 7-21 NITROGEN (BEAKER) (test code = 354) CREATININE 0.50 mg/dL 0.57-1.25 L (BEAKER) (test code = 358) GLUCOSE RANDOM 96 mg/dL 70-105 (BEAKER) (test code = 652) CALCIUM (BEAKER) 8.8 mg/dL 8.4-10.2 (test code = 697) EGFR (BEAKER) 104 Interpretatio n of eGFR (test code = mL/min/1.73 values Stage De scription 1092) sq m Result G1 Edel l or high >=90 G2 Mildly decreased 60-89 G3a Mildl y to moderately 45-5 9 G3b Moderately to s everely 30-44 G4 Severl y decreased 15-29 G5 Kidney failure <15Reported eGF R is based on the CKD-EPI 2020 equation that d oes not use a race coefficientEsti mated GFR is not as accur ate as Creatinine Ama hale in predicting glom erular filtration rate . Estimated GFR is not appl icable for dialysis patien ts Laboratory Assistant ID - DEANNA [id number] 05:30:10 Test Item Value Reference Range Interpretation Comments PROTIME (BEAKER) (test 15.0 seconds 11.9-14.2 H code = 759) INR (BEAKER) (test 1.26 See_Comment [Automat ed code = 370) message] The sy stem which generated this result transmitted reference range : <=5.90. The reference range was not used to interpret this result as normal/abnormal . PARTIAL THROMBOPLASTIN 45.4 seconds 22.5-36.0 H TIME (BEAKER) (test code = 760) RECOMMENDED COUMADIN/WARFARIN INR THERAPY RANGESSTANDARD DOSE: 2.0 - 3.0 Includes: PROPHYLAXIS for venous thrombosis, systemic embolization; TREATMENT for venous thrombosis and/or pulmonary embolus.HIGH RISK: Target INR is 2.5-3.5 for patients with mechanical heart valves.RAD, CHEST, 1 VIEW, NON [id number] 14:18:00Reason for exam:->PICC Tip location.Should this be performed at the bedside?->Yes[facility]EName: KINDRA NOVOA GARCIA : 1955 Sex: FFINAL REPORT RAD, CHEST, 1 VIEW, NON DEPT INDICATION: PICC Tip location. COMPARISON: 10/19/2021 TECHNIQUE: Portable frontal view of the chest. FINDINGS: Support Lines and Devices: RightPICC tip overlies the superior vena cava. A right-sided IJ catheter is partially imaged, and appearsextends to the right atriocaval junction.. Lungs and pleura: Hazy bilateral airspace opacities, sugge sting pulmonary edema with or without pneumonia. No pneumothorax identified. Heart and mediastinum: Stable contours. Stable surgical changes. Additional findings: The patient is rotated to the left. Postoperative hardware in the thoracic spine. IMPRESSION: 1.Right PICC tip overlies the superior vena cava.2. Hazy bilateral airspace opacities, suggesting pulmonary edema with or without pneumonia. Signed: Anita Romero MDReport Verified Date/Time: 10/24/2021 14:18:58 Reading Location: [address] Reading Room BLOOD [id number] 08:18:09 Test Item Value Reference Range Interpretation Comments CULTURE (BEAKER) A From Aerobi c Bottle (test code = Only Same organ ism has 1095) been isolated f rom cultures(s) of the same body site within 3 days. Repeat identification and susceptibility testing performed only after consultation wi th the clinical microb iology laboratory.Refe r to previous cultur e ofEnterococcus faecalis GRAM STAIN From aerobic RESULT (BEAKER) bottle only: (test code = gram positive 1123) cocci in chains and pairs The specimen volume collected for this blood culture was below the optimum (10 mL per bottle or 20 mL total). Use of lower volumes may adversely affect recovery and/or detection times of some organisms.[id number] 06:23:33 Test Item Value Reference Range Interpretation Comments MAGNESIUM (BEAKER) (test code = 1.7 mg/dL 1.6-2.6 627) Laboratory Assistant ID - DEANNA [id number] 06:23:33 Test Item Value Reference Range Interpretation Comments PHOSPHORUS (BEAKER) (test code = 3.8 mg/dL 2.3-4.7 604) Laboratory Assistant ID - DEANNA MBASIC METABOLIC [id number] 06:23:32 Test Item Value Reference Range Interpretation Comments SODIUM (BEAKER) 137 meq/L 136-145 (test code = 381) POTASSIUM 3.9 meq/L 3.5-5.1 (BEAKER) (test code = 379) CHLORIDE (BEAKER) 100 meq/L 98-107 (test code = 382) CO2 (BEAKER) 27 meq/L 22-29 (test code = 355) BLOOD UREA 13 mg/dL 7-21 NITROGEN (BEAKER) (test code = 354) CREATININE 0.54 mg/dL 0.57-1.25 L (BEAKER) (test code = 358) GLUCOSE RANDOM 109 mg/dL 70-105 H (BEAKER) (test code = 652) CALCIUM (BEAKER) 9.0 mg/dL 8.4-10.2 (test code = 697) EGFR (BEAKER) 102 Interpretatio n of eGFR (test code = mL/min/1.73 values Stage De scription 1092) sq m Result G1 Edel l or high >=90 G2 Mildly decreased 60-89 G3a Mildl y to moderately 45-5 9 G3b Moderately to s everely 30-44 G4 Severl y decreased 15-29 G5 Kidney failure <15Reported eGF R is based on the CKD-EPI 2020 equation that d oes not use a race coefficientEsti mated GFR is not as accur ate as Creatinine Ama geoffrey in predicting glom erular filtration rate . Estimated GFR is not appl icable for dialysis patien ts Laboratory Assistant ID - DEANNA MCBC (HEMOGRAM ONLY)2021-10-24 05:34:03 Test Item Value Reference Range Interpretation Comments WHITE BLOOD CELL COUNT (BEAKER) 5.3 K/ L 3.5-10.5 (test code = 775) RED BLOOD CELL COUNT (BEAKER) 3.00 M/ L 3.93-5.22 L (test code = 761) HEMOGLOBIN (BEAKER) (test code = 8.0 GM/DL 11.2-15.7 L 410) HEMATOCRIT (BEAKER) (test code = 25.9 % 34.1-44.9 L 411) MEAN CORPUSCULAR VOLUME (BEAKER) 86.3 fL 79.4-94.8 (test code = 753) MEAN CORPUSCULAR HEMOGLOBIN 26.7 pg 25.6-32.2 (BEAKER) (test code = 751) MEAN CORPUSCULAR HEMOGLOBIN CONC 30.9 GM/DL 32.2-35.5 L (BEAKER) (test code = 752) RED CELL DISTRIBUTION WIDTH 16.5 % 11.7-14.4 H (BEAKER) (test code = 412) PLATELET COUNT (BEAKER) (test 374 K/CU MM 150-450 code = 756) MEAN PLATELET VOLUME (BEAKER) 9.7 fL 9.4-12.3 (test code = 754) NUCLEATED RED BLOOD CELLS 0 /100 WBC 0-0 (BEAKER) (test code = 413) SARS-CoV2/RT-PCR (Asymptomatic ONLY)2021-10-23 17:07:13 Test Item Value Reference Range Interpretation Comments SARS-COV2/RT-PCR Negative Not Detected, (test code = Negative, See 18870-7) external report for linked test SARS-COV-2 [facility] (test code = 48751-0) YULI (test code = Negative result for this YULI) test determines that SARS-CoV-2 RNA was not [...] be considered in cases of suspected false negatives. The limit of detection for this assay is 800 copies/mL. This SARS CoV-2 test is a real-time RT-PCR test intended for the qualitative detection of nucleic acid from SARS-CoV-2 in a nasopharyngeal swab specimen collected from individuals suspected of COVID-19 by their healthcare provider. This test has not been Food and Drug [...] is revoked under Section 564(g) of the Act. Fact Sheet for Healthcare Providers:https://www.qu idel.com/sites/default/f arlene/product/documents/F act_Sheet_HC_Providers_L eug_QHVI-ZzW-6.pdf Fact Sheet for Healthcare Patients:https://www.HitMeUp/sites/default/fi les/product/documents/Fa ct_Sheet_Patients_Lyra_S ARS-CoV-2.pdf Performing Laboratory:[facility] [place] [address] [facility] ([facility])2021-10-23 17:07:13 Test Item Value Reference Range Interpretation Comments SARS-COV2/RT-PCR (test Negative Not Detected, Negative, code = 3380457) See external report for linked test SARS-COV-2 PERFORMING LAB [facility] (test code = 6939249) Negative result for this test determines that [...] of the Act.Fact Sheet for Healthcare Prov iders:https://www.Maozhao/sites/default/files/product/documents/Fact_Sheet_HC _Eapumbxdz_Chsg_BMNK-MaM-3.pdfFact Sheet for Healthcare Patients:https://www.Maozhao/sites/default/files/product/docume nts/Nzrh_Uhfny_Bghwgqhw_Vhbe_TGOE-HgF-6.pdfPerforming Laboratory:[facility], [place] [address]KWD/CT, CARDIAC PERF REST [id number] 16:29:00Reason for exam:->r/o myocardial ischemia prior to surgery; PET preferred due to obesity [facility]: KINDRA NOVOA : 1955 Sex: FFINAL REPORT PROCEDURE: MYOCARDIAL PERFUSION PET/CT IMAGING (Rest)CPT CODE: 53403 INDICATION: Risk stratification prior to surgery, obesity CARDIOVASCULAR PROFILE:CAD History: Known CAD, MIRisk Factors: Hypertension, diabetes, hyperlipidemia, anxietyBMI: 49.3 STRESS PROTOCOL:Pharmacologic stress was achieved with a 10-second intravenous infusion of regadenoson 0.4 mg. The radiopharmaceutical was administered 30 seconds after the start of the regadenoson infusion. IMAGING PROTOCOL:Limited low-dose CT imaging was performed for attenuation correction. 40.0 mCi of Rb-82 chloride was injected intravenously at rest, and gated PET images were obtained. Then, 40.2 mCi of Rb- 82 chloride was injected intravenously at peak stress. However, PET images could not be obtained as patient removed herself from the imaging table and refused further imaging. REST FINDINGS:HR: 113/minBP: 148/90 mmHgPrelim. EKG: Normal sinus rhythm.Perfusion: Normal.Wall Motion: Normal (LVEF >70%).LV Volume: Normal.RV Volume: Normal. IMPRESSION:1. Incomplete study.2. Normal myocardial perfusion at rest. The stress portion of the protocol was not able to be completed due to issue with patient cooperation.3. Normal resting LVEF.4. Normal extracardiac tracer distribution.5. There is no prior study for comparison. Signed: Ferdinand Ramirez MDReport Verified Date/Time: 10/23/2021 16:29:10 POCT- GLUCOSE [id number] 08:14:28 Test Item Value Reference Range Interpretation Comments POC-GLUCOSE METER 101 mg/dL 70-110 : Notified RN/MD: (SCOOTER) (test code = TESTED AT [facility] 6720 1538) [facility], [address]: Laboratory Assistant/Techni benjamin ID = [id number] for GUME THOMPSON C-REACTIVE [id number] 08:14:00 Test Item Value Reference Range Interpretation Comments C-REACTIVE PROTEIN (BEAKER) (test 8.92 mg/dL 0.00-0.50 H code = 676) Laboratory Assistant ID - KARMEN [id number] 08:13:59 Test Item Value Reference Range Interpretation Comments MAGNESIUM (BEAKER) (test code = 1.6 mg/dL 1.6-2.6 627) Laboratory Assistant ID - KARMEN [id number] 08:13:59 Test Item Value Reference Range Interpretation Comments PHOSPHORUS (BEAKER) (test code = 3.2 mg/dL 2.3-4.7 604) Laboratory Assistant ID - KARMEN LCOMPREHENSIVE METABOLIC [id number] 08:13:58 Test Item Value Reference Range Interpretation Comments TOTAL PROTEIN 5.4 gm/dL 6.0-8.3 L (BEAKER) (test code = 770) ALBUMIN (BEAKER) 2.3 g/dL 3.5-5.0 L (test code = 1145) ALKALINE 113 U/L 40-150 PHOSPHATASE (BEAKER) (test code = 346) BILIRUBIN TOTAL 0.3 mg/dL 0.2-1.2 (BEAKER) (test code = 377) SODIUM (BEAKER) 137 meq/L 136-145 (test code = 381) POTASSIUM (BEAKER) 3.9 meq/L 3.5-5.1 (test code = 379) CHLORIDE (BEAKER) 103 meq/L 98-107 (test code = 382) CO2 (BEAKER) (test 26 meq/L 22-29 code = 355) BLOOD UREA 13 mg/dL 7-21 NITROGEN (BEAKER) (test code = 354) CREATININE 0.51 mg/dL 0.57-1.25 L (BEAKER) (test code = 358) GLUCOSE RANDOM 110 mg/dL 70-105 H (BEAKER) (test code = 652) CALCIUM (BEAKER) 8.7 mg/dL 8.4-10.2 (test code = 697) AST (SGOT) 18 U/L 5-34 (BEAKER) (test code = 353) ALT (SGPT) 17 U/L 6-55 (BEAKER) (test code = 347) EGFR (BEAKER) 104 Interpretatio n of eGFR (test code = 1092) mL/min/1.[address] age Description sq m Result G1 Edel l or high >=90 G2 Mildly decreased 60-89 G3a Mildl y to moderately 45-5 9 G3b Moderately to s everely 30-44 G4 Severl y decreased 15-29 G5 Kidney failure <15Reported eGF R is based on the CKD-EPI 2020 equation that d oes not use a race coefficientEsti mated GFR is not as accur ate as Creatinine Ama geoffrey in predicting glom erular filtration rate . Estimated GFR is not appl icable for dialysis patien ts Laboratory Assistant ID - PIAYA LBLOOD [id number] 06:00:54 Test Item Value Reference Range Interpretation Comments CULTURE (BEAKER) (test No growth in 5 days code = 1095) CBC (HEMOGRAM ONLY)2021-10-23 05:23:21 Test Item Value Reference Range Interpretation Comments WHITE BLOOD CELL COUNT (BEAKER) 5.4 K/ L 3.5-10.5 (test code = 775) RED BLOOD CELL COUNT (BEAKER) 2.91 M/ L 3.93-5.22 L (test code = 761) HEMOGLOBIN (BEAKER) (test code = 7.8 GM/DL 11.2-15.7 L 410) HEMATOCRIT (BEAKER) (test code = 25.4 % 34.1-44.9 L 411) MEAN CORPUSCULAR VOLUME (BEAKER) 87.3 fL 79.4-94.8 (test code = 753) MEAN CORPUSCULAR HEMOGLOBIN 26.8 pg 25.6-32.2 (BEAKER) (test code = 751) MEAN CORPUSCULAR HEMOGLOBIN CONC 30.7 GM/DL 32.2-35.5 L (BEAKER) (test code = 752) RED CELL DISTRIBUTION WIDTH 16.6 % 11.7-14.4 H (BEAKER) (test code = 412) PLATELET COUNT (BEAKER) (test 373 K/CU MM 150-450 code = 756) MEAN PLATELET VOLUME (BEAKER) 9.8 fL 9.4-12.3 (test code = 754) NUCLEATED RED BLOOD CELLS 0 /100 WBC 0-0 (BEAKER) (test code = 413) CBC W/PLT COUNT & AUTO [id number] 05:23:19 Test Item Value Reference Range Interpretation Comments WHITE BLOOD CELL COUNT (BEAKER) 5.4 K/ L 3.5-10.5 (test code = 775) RED BLOOD CELL COUNT (BEAKER) 2.91 M/ L 3.93-5.22 L (test code = 761) HEMOGLOBIN (BEAKER) (test code = 7.8 GM/DL 11.2-15.7 L 410) HEMATOCRIT (BEAKER) (test code = 25.4 % 34.1-44.9 L 411) MEAN CORPUSCULAR VOLUME (BEAKER) 87.3 fL 79.4-94.8 (test code = 753) MEAN CORPUSCULAR HEMOGLOBIN 26.8 pg 25.6-32.2 (BEAKER) (test code = 751) MEAN CORPUSCULAR HEMOGLOBIN CONC 30.7 GM/DL 32.2-35.5 L (BEAKER) (test code = 752) RED CELL DISTRIBUTION WIDTH 16.6 % 11.7-14.4 H (BEAKER) (test code = 412) PLATELET COUNT (BEAKER) (test 373 K/CU MM 150-450 code = 756) MEAN PLATELET VOLUME (BEAKER) 9.8 fL 9.4-12.3 (test code = 754) NUCLEATED RED BLOOD CELLS 0 /100 WBC 0-0 (BEAKER) (test code = 413) NEUTROPHILS RELATIVE PERCENT 71 % (BEAKER) (test code = 429) LYMPHOCYTES RELATIVE PERCENT 16 % (BEAKER) (test code = 430) MONOCYTES RELATIVE PERCENT 11 % (BEAKER) (test code = 431) EOSINOPHILS RELATIVE PERCENT 2 % (BEAKER) (test code = 432) BASOPHILS RELATIVE PERCENT 0 % (BEAKER) (test code = 437) NEUTROPHILS ABSOLUTE COUNT 3.80 K/ L 1.56-6.13 (BEAKER) (test code = 670) LYMPHOCYTES ABSOLUTE COUNT 0.85 K/ L 1.18-3.74 L (BEAKER) (test code = 414) MONOCYTES ABSOLUTE COUNT (BEAKER) 0.58 K/ L 0.24-0.36 H (test code = 415) EOSINOPHILS ABSOLUTE COUNT 0.08 K/ L 0.04-0.36 (BEAKER) (test code = 416) BASOPHILS ABSOLUTE COUNT (BEAKER) 0.01 K/ L 0.01-0.08 (test code = 417) IMMATURE GRANULOCYTES-RELATIVE 1 % 0-1 PERCENT (BEAKER) (test code = 2801) POCT-GLUCOSE [id number] 23:26:30 Test Item Value Reference Range Interpretation Comments POC-GLUCOSE METER 114 mg/dL 70-110 H : Notified RN/MD: (SCOOTER) (test code = TESTED AT [facility] [id number]) [facility], [id number]: Laboratory Assistant/Techni benjamin ID = [id number] for LATHBLAUREANO, GUME ICE CT, SPINE, THORACIC, WO [id number] 11:00:00Unlisted Reason for Exam - Click Yes and Enter Reason Below->No [facility]OA : 1955 Sex: FFINAL REPORT CT Thoracic Spine CLINICAL HISTORY: Spinal fusion, thoracic, follow up TECHNIQUE: Contiguous axial images of the thoracic spine with coronal and sagittal reformations to assess the alignment. This exam was performed according to the departmental dose optimization programwhich includes automated exposure control, adjustment of the mA and/or kV according to the patient size, and/or use of an iterative reconstruction technique. COMPARISON: MRI 10/19/2021 and 10/17/2021, chest CT 10/17/2021 FINDINGS: The patient is status post bilateral posterior spinal johnathan and pedicle screw fusion of T4-T10 absent screws at T7. There is a T7 corpectomy with a vertical metallic cage and promin ent bone graft material. There is vertebroplasty cement the other T4-T10 vertebral bodies. There arelaminectomies of T5-T8 with a dorsal surgical drain. The hardware is intact. The thoracic curvature and alignment are maintained. The thoracic vertebral body heights are otherwise preserved. The central canal contents are not well evaluated due to metallic streak effect and the lack of intrathecal contrast. There is new bibasilar lung consolidation with small bilateral pleural effusions. IMPRESSION: Status post posterior instrumented fusion of T4-T10 with T7 corpectomy and metallic cage placement asdiscussed above. There are T5-T8 laminectomies with a dorsal surgical drain. Signed: Clayton Granados MDReport Verified Date/Time: 10/22/2021 11:00:49 POCT-GLUCOSE METER 2021-10-22 06:29:54 Test Item Value Reference Range Interpretation Comments POC-GLUCOSE METER 119 mg/dL 70-110 H : Notified RN/MD: (SCOOTER) (test code = TESTED AT [facility] 6720 1538) [facility], [id number]: Laboratory Assistant/Techni benjamin ID = [id number] for GUME THOMPSON [id number] 05:53:44 Test Item Value Reference Range Interpretation Comments PHOSPHORUS (BEAKER) (test code = 3.1 mg/dL 2.3-4.7 604) Laboratory Assistant AMADA [facility] MET[facility]OLIC [id number] 05:53:43 Test Item Value Reference Range Interpretation Comments TOTAL PROTEIN 5.7 gm/dL 6.0-8.3 L (BEAKER) (test code = 770) ALBUMIN (BEAKER) 2.5 g/dL 3.5-5.0 L (test code = 1145) ALKALINE 117 U/L 40-150 PHOSPHATASE (BEAKER) (test code = 346) BILIRUBIN TOTAL 0.2 mg/dL 0.2-1.2 (BEAKER) (test code = 377) SODIUM (BEAKER) 141 meq/L 136-145 (test code = 381) POTASSIUM (BEAKER) 4.2 meq/L 3.5-5.1 (test code = 379) CHLORIDE (BEAKER) 109 meq/L 98-107 H (test code = 382) CO2 (BEAKER) (test 24 meq/L 22-29 code = 355) BLOOD UREA 18 mg/dL 7-21 NITROGEN (BEAKER) (test code = 354) CREATININE 0.53 mg/dL 0.57-1.25 L (BEAKER) (test code = 358) GLUCOSE RANDOM 123 mg/dL 70-105 H (BEAKER) (test code = 652) CALCIUM (BEAKER) 9.0 mg/dL 8.4-10.2 (test code = 697) AST (SGOT) 22 U/L 5-34 (BEAKER) (test code = 353) ALT (SGPT) 20 U/L 6-55 (BEAKER) (test code = 347) EGFR (BEAKER) 103 Interpretatio n of eGFR (test code = 1092) mL/min/1.[address] age Description sq m Result G1 Edel l or high >=90 G2 Mildly decreased 60-89 G3a Mild ly to moderately 45-5 9 G3b Moderately to s everely 30-44 G4 Severl y decreased 15-29 G5 Kidney failure <15Reported eGF R is based on the CKD-EPI 2020 equation that d oes not use a race coefficientEsti mated GFR is not as accur ate as Creatinine Ama geoffrey in predicting glom erular filtration rate . Estimated GFR is not appl icable for dialysis patien ts Laboratory Assistant ID - CASANDRA [id number] 05:53:43 Test Item Value Reference Range Interpretation Comments MAGNESIUM (BEAKER) (test code = 2.0 mg/dL 1.6-2.6 627) Laboratory Assistant ID Kimberlee GUAJARDO WCBC (HEMOGRAM ONLY)2021-10-22 05:01:56 Test Item Value Reference Range Interpretation Comments WHITE BLOOD CELL COUNT (BEAKER) 5.8 K/ L 3.5-10.5 (test code = 775) RED BLOOD CELL COUNT (BEAKER) 3.01 M/ L 3.93-5.22 L (test code = 761) HEMOGLOBIN (BEAKER) (test code = 8.1 GM/DL 11.2-15.7 L 410) HEMATOCRIT (BEAKER) (test code = 26.5 % 34.1-44.9 L 411) MEAN CORPUSCULAR VOLUME (BEAKER) 88.0 fL 79.4-94.8 (test code = 753) MEAN CORPUSCULAR HEMOGLOBIN 26.9 pg 25.6-32.2 (BEAKER) (test code = 751) MEAN CORPUSCULAR HEMOGLOBIN CONC 30.6 GM/DL 32.2-35.5 L (BEAKER) (test code = 752) RED CELL DISTRIBUTION WIDTH 16.9 % 11.7-14.4 H (BEAKER) (test code = 412) PLATELET COUNT (BEAKER) (test 359 K/CU MM 150-450 code = 756) MEAN PLATELET VOLUME (BEAKER) 9.9 fL 9.4-12.3 (test code = 754) NUCLEATED RED BLOOD CELLS 0 /100 WBC 0-0 (BEAKER) (test code = 413) CBC W/PLT COUNT & AUTO [id number] 05:01:55 Test Item Value Reference Range Interpretation Comments WHITE BLOOD CELL COUNT (BEAKER) 5.8 K/ L 3.5-10.5 (test code = 775) RED BLOOD CELL COUNT (BEAKER) 3.01 M/ L 3.93-5.22 L (test code = 761) HEMOGLOBIN (BEAKER) (test code = 8.1 GM/DL 11.2-15.7 L 410) HEMATOCRIT (BEAKER) (test code = 26.5 % 34.1-44.9 L 411) MEAN CORPUSCULAR VOLUME (BEAKER) 88.0 fL 79.4-94.8 (test code = 753) MEAN CORPUSCULAR HEMOGLOBIN 26.9 pg 25.6-32.2 (BEAKER) (test code = 751) MEAN CORPUSCULAR HEMOGLOBIN CONC 30.6 GM/DL 32.2-35.5 L (BEAKER) (test code = 752) RED CELL DISTRIBUTION WIDTH 16.9 % 11.7-14.4 H (BEAKER) (test code = 412) PLATELET COUNT (BEAKER) (test 359 K/CU MM 150-450 code = 756) MEAN PLATELET VOLUME (BEAKER) 9.9 fL 9.4-12.3 (test code = 754) NUCLEATED RED BLOOD CELLS 0 /100 WBC 0-0 (BEAKER) (test code = 413) NEUTROPHILS RELATIVE PERCENT 72 % (BEAKER) (test code = 429) LYMPHOCYTES RELATIVE PERCENT 16 % (BEAKER) (test code = 430) MONOCYTES RELATIVE PERCENT 10 % (BEAKER) (test code = 431) EOSINOPHILS RELATIVE PERCENT 1 % (BEAKER) (test code = 432) BASOPHILS RELATIVE PERCENT 0 % (BEAKER) (test code = 437) NEUTROPHILS ABSOLUTE COUNT 4.21 K/ L 1.56-6.13 (BEAKER) (test code = 670) LYMPHOCYTES ABSOLUTE COUNT 0.95 K/ L 1.18-3.74 L (BEAKER) (test code = 414) MONOCYTES ABSOLUTE COUNT (BEAKER) 0.55 K/ L 0.24-0.36 H (test code = 415) EOSINOPHILS ABSOLUTE COUNT 0.08 K/ L 0.04-0.36 (BEAKER) (test code = 416) BASOPHILS ABSOLUTE COUNT (BEAKER) 0.01 K/ L 0.01-0.08 (test code = 417) IMMATURE GRANULOCYTES-RELATIVE 0 % 0-1 PERCENT (BEAKER) (test code = 2801) Prepare Leuko-Red [id number] 23:54:00 Test Item Value Reference Range Interpretation Comments CROSSMATCH (test code = 2264) COMPATIBLE Unit ABO (test code = O Pos 8061088) UNIT NUMBER (test code = [id number] 934-0) Status (test code = 8664351) TX_TIMEINCHART Blood Bank Product (test code RED BLOOD CELLS = 2263) PRODUCT CODE (test code = C5320Q15 933-2) [facility] 05:[facility]29 Test Item Value Reference Range Interpretation Comments PHOSPHORUS (BEAKER) (test code = 3.7 mg/dL 2.3-4.7 604) Laboratory Assistant ID - KARMEN [id number] 05:18:28 Test Item Value Reference Range Interpretation Comments MAGNESIUM (BEAKER) (test code = 1.9 mg/dL 1.6-2.6 627) Laboratory Assistant ID - PINANCIE LCOMPREHENSIVE METABOLIC [id number] 05:18:27 Test Item Value Reference Range Interpretation Comments TOTAL PROTEIN 5.3 gm/dL 6.0-8.3 L (BEAKER) (test code = 770) ALBUMIN (BEAKER) 2.3 g/dL 3.5-5.0 L (test code = 1145) ALKALINE 119 U/L 40-150 PHOSPHATASE (BEAKER) (test code = 346) BILIRUBIN TOTAL 0.2 mg/dL 0.2-1.2 (BEAKER) (test code = 377) SODIUM (BEAKER) 139 meq/L 136-145 (test code = 381) POTASSIUM (BEAKER) 4.0 meq/L 3.5-5.1 (test code = 379) CHLORIDE (BEAKER) 109 meq/L 98-107 H (test code = 382) CO2 (BEAKER) (test 21 meq/L 22-29 L code = 355) BLOOD UREA 21 mg/dL 7-21 NITROGEN (BEAKER) (test code = 354) CREATININE 0.57 mg/dL 0.57-1.25 (BEAKER) (test code = 358) GLUCOSE RANDOM 138 mg/dL 70-105 H (BEAKER) (test code = 652) CALCIUM (BEAKER) 9.0 mg/dL 8.4-10.2 (test code = 697) AST (SGOT) 27 U/L 5-34 (BEAKER) (test code = 353) ALT (SGPT) 18 U/L 6-55 (BEAKER) (test code = 347) EGFR (BEAKER) 101 Interpretatio n of eGFR (test code = 1092) mL/min/1.[address] age Description sq m Result G1 Edel l or high >=90 G2 Mildly decreased 60-89 G3a Mildl y to moderately 45-5 9 G3b Moderately to s everely 30-44 G4 Severl y decreased 15-29 G5 Kidney failure <15Reported eGF R is based on the CKD-EPI 2020 equation that d oes not use a race coefficientEsti mated GFR is not as accur ate as Creatinine Ama geoffrey in predicting glom erular filtration rate . Estimated GFR is not appl icable for dialysis patien ts Laboratory Assistant ID - PIAYA LCBC (HEMOGRAM ONLY)2021-10-21 04:33:29 Test Item Value Reference Range Interpretation Comments WHITE BLOOD CELL COUNT (BEAKER) 5.6 K/ L 3.5-10.5 (test code = 775) RED BLOOD CELL COUNT (BEAKER) 2.78 M/ L 3.93-5.22 L (test code = 761) HEMOGLOBIN (BEAKER) (test code = 7.5 GM/DL 11.2-15.7 L 410) HEMATOCRIT (BEAKER) (test code = 24.3 % 34.1-44.9 L 411) MEAN CORPUSCULAR VOLUME (BEAKER) 87.4 fL 79.4-94.8 (test code = 753) MEAN CORPUSCULAR HEMOGLOBIN 27.0 pg 25.6-32.2 (BEAKER) (test code = 751) MEAN CORPUSCULAR HEMOGLOBIN CONC 30.9 GM/DL 32.2-35.5 L (BEAKER) (test code = 752) RED CELL DISTRIBUTION WIDTH 16.7 % 11.7-14.4 H (BEAKER) (test code = 412) PLATELET COUNT (BEAKER) (test 252 K/CU MM 150-450 code = 756) MEAN PLATELET VOLUME (BEAKER) 9.5 fL 9.4-12.3 (test code = 754) NUCLEATED RED BLOOD CELLS 0 /100 WBC 0-0 (BEAKER) (test code = 413) CBC W/PLT COUNT & AUTO [id number] 04:33:28 Test Item Value Reference Range Interpretation Comments WHITE BLOOD CELL COUNT (BEAKER) 5.6 K/ L 3.5-10.5 (test code = 775) RED BLOOD CELL COUNT (BEAKER) 2.78 M/ L 3.93-5.22 L (test code = 761) HEMOGLOBIN (BEAKER) (test code = 7.5 GM/DL 11.2-15.7 L 410) HEMATOCRIT (BEAKER) (test code = 24.3 % 34.1-44.9 L 411) MEAN CORPUSCULAR VOLUME (BEAKER) 87.4 fL 79.4-94.8 (test code = 753) MEAN CORPUSCULAR HEMOGLOBIN 27.0 pg 25.6-32.2 (BEAKER) (test code = 751) MEAN CORPUSCULAR HEMOGLOBIN CONC 30.9 GM/DL 32.2-35.5 L (BEAKER) (test code = 752) RED CELL DISTRIBUTION WIDTH 16.7 % 11.7-14.4 H (BEAKER) (test code = 412) PLATELET COUNT (BEAKER) (test 252 K/CU MM 150-450 code = 756) MEAN PLATELET VOLUME (BEAKER) 9.5 fL 9.4-12.3 (test code = 754) NUCLEATED RED BLOOD CELLS 0 /100 WBC 0-0 (BEAKER) (test code = 413) NEUTROPHILS RELATIVE PERCENT 76 % (BEAKER) (test code = 429) LYMPHOCYTES RELATIVE PERCENT 14 % (BEAKER) (test code = 430) MONOCYTES RELATIVE PERCENT 7 % (BEAKER) (test code = 431) EOSINOPHILS RELATIVE PERCENT 2 % (BEAKER) (test code = 432) BASOPHILS RELATIVE PERCENT 0 % (BEAKER) (test code = 437) NEUTROPHILS ABSOLUTE COUNT 4.24 K/ L 1.56-6.13 (BEAKER) (test code = 670) LYMPHOCYTES ABSOLUTE COUNT 0.80 K/ L 1.18-3.74 L (BEAKER) (test code = 414) MONOCYTES ABSOLUTE COUNT (BEAKER) 0.37 K/ L 0.24-0.36 H (test code = 415) EOSINOPHILS ABSOLUTE COUNT 0.11 K/ L 0.04-0.36 (BEAKER) (test code = 416) BASOPHILS ABSOLUTE COUNT (BEAKER) 0.01 K/ L 0.01-0.08 (test code = 417) IMMATURE GRANULOCYTES-RELATIVE 0 % 0-1 PERCENT (BEAKER) (test code = 2801) CBC (HEMOGRAM ONLY)2021-10-20 15:56:59 Test Item Value Reference Range Interpretation Comments WHITE BLOOD CELL COUNT (BEAKER) 6.2 K/ L 3.5-10.5 (test code = 775) RED BLOOD CELL COUNT (BEAKER) 2.82 M/ L 3.93-5.22 L (test code = 761) HEMOGLOBIN (BEAKER) (test code = 7.5 GM/DL 11.2-15.7 L 410) HEMATOCRIT (BEAKER) (test code = 23.9 % 34.1-44.9 L 411) MEAN CORPUSCULAR VOLUME (BEAKER) 84.8 fL 79.4-94.8 (test code = 753) MEAN CORPUSCULAR HEMOGLOBIN 26.6 pg 25.6-32.2 (BEAKER) (test code = 751) MEAN CORPUSCULAR HEMOGLOBIN CONC 31.4 GM/DL 32.2-35.5 L (BEAKER) (test code = 752) RED CELL DISTRIBUTION WIDTH 16.5 % 11.7-14.4 H (BEAKER) (test code = 412) PLATELET COUNT (BEAKER) (test 285 K/CU MM 150-450 code = 756) MEAN PLATELET VOLUME (BEAKER) 9.8 fL 9.4-12.3 (test code = 754) NUCLEATED RED BLOOD CELLS 0 /100 WBC 0-0 (BEAKER) (test code = 413) RAD, ABDOMEN/KUB, 1 VIEW [id number] 07:00:00Reason for exam:->for corpak placementCHI ANAHE[facility]ENTERName: KINDRA NOVOA : 1955 Sex: FFINAL REPORT RAD, ABDOMEN/KUB, 1 VIEW AP INDICATION: for corpak placement COMPARISON: None TECHNIQUE: Limited portable radiograph of the lower chest and upper abdomen was acquired forpurposes of evaluating tube placement FINDINGS/IMPRESSION:Feeding tube tip overlies the distal duodenum. Signed: Nargis Grossman Verified Date/Time: 10/20/2021 07:00:20 PHOSPHORUS 2021-10-20 04:50:03 Test Item Value Reference Range Interpretation Comments PHOSPHORUS (BEAKER) (test code = 3.3 mg/dL 2.3-4.7 604) Laboratory Assistant ID - CASANDRA OMPREHENSIVE METABOLIC [id number] 04:50:02 Test Item Value Reference Range Interpretation Comments TOTAL PROTEIN 5.1 gm/dL 6.0-8.3 L (BEAKER) (test code = 770) ALBUMIN (BEAKER) 2.4 g/dL 3.5-5.0 L (test code = 1145) ALKALINE 115 U/L 40-150 PHOSPHATASE (BEAKER) (test code = 346) BILIRUBIN TOTAL 0.4 mg/dL 0.2-1.2 (BEAKER) (test code = 377) SODIUM (BEAKER) 138 meq/L 136-145 (test code = 381) POTASSIUM (BEAKER) 3.4 meq/L 3.5-5.1 L (test code = 379) CHLORIDE (BEAKER) 108 meq/L 98-107 H (test code = 382) CO2 (BEAKER) (test 23 meq/L 22-29 code = 355) BLOOD UREA 13 mg/dL 7-21 NITROGEN (BEAKER) (test code = 354) CREATININE 0.57 mg/dL 0.57-1.25 (BEAKER) (test code = 358) GLUCOSE RANDOM 148 mg/dL 70-105 H (BEAKER) (test code = 652) CALCIUM (BEAKER) 8.8 mg/dL 8.4-10.2 (test code = 697) AST (SGOT) 50 U/L 5-34 H (BEAKER) (test code = 353) ALT (SGPT) 23 U/L 6-55 (BEAKER) (test code = 347) EGFR (BEAKER) 101 Interpretatio n of eGFR (test code = 1092) mL/min/1.73 values S tage Description sq m Result G1 Edel l or high >=90 G2 Mildly decreased 60-89 G3a Mildl y to moderately 45-5 9 G3b Moderately to s everely 30-44 G4 Severl y decreased 15-29 G5 Kidney failure <15Reported eGF R is based on the CKD-EPI 1 equation that d oes not use a race coefficientEsti mated GFR is not as accur ate as Creatinine Ama geoffrey in predicting glom erular filtration rate . Estimated GFR is not appl icable for dialysis patien ts Laboratory Assistant ID - CASANDRA [id number] 04:50:02 Test Item Value Reference Range Interpretation Comments MAGNESIUM (BEAKER) (test code = 2.1 mg/dL 1.6-2.6 627) Laboratory Assistant ID - CASANDRA WCBC W/PLT COUNT & AUTO [id number] 04:09:41 Test Item Value Reference Range Interpretation Comments WHITE BLOOD CELL COUNT (BEAKER) 5.1 K/ L 3.5-10.5 (test code = 775) RED BLOOD CELL COUNT (BEAKER) 2.40 M/ L 3.93-5.22 L (test code = 761) HEMOGLOBIN (BEAKER) (test code = 6.4 GM/DL 11.2-15.7 L 410) HEMATOCRIT (BEAKER) (test code = 20.9 % 34.1-44.9 L 411) MEAN CORPUSCULAR VOLUME (BEAKER) 87.1 fL 79.4-94.8 (test code = 753) MEAN CORPUSCULAR HEMOGLOBIN 26.7 pg 25.6-32.2 (BEAKER) (test code = 751) MEAN CORPUSCULAR HEMOGLOBIN CONC 30.6 GM/DL 32.2-35.5 L (BEAKER) (test code = 752) RED CELL DISTRIBUTION WIDTH 16.4 % 11.7-14.4 H (BEAKER) (test code = 412) PLATELET COUNT (BEAKER) (test 227 K/CU MM 150-450 code = 756) MEAN PLATELET VOLUME (BEAKER) 9.6 fL 9.4-12.3 (test code = 754) NUCLEATED RED BLOOD CELLS 0 /100 WBC 0-0 (BEAKER) (test code = 413) NEUTROPHILS RELATIVE PERCENT 73 % (BEAKER) (test code = 429) LYMPHOCYTES RELATIVE PERCENT 16 % (BEAKER) (test code = 430) MONOCYTES RELATIVE PERCENT 9 % (BEAKER) (test code = 431) EOSINOPHILS RELATIVE PERCENT 1 % (BEAKER) (test code = 432) BASOPHILS RELATIVE PERCENT 0 % (BEAKER) (test code = 437) NEUTROPHILS ABSOLUTE COUNT 3.67 K/ L 1.56-6.13 (BEAKER) (test code = 670) LYMPHOCYTES ABSOLUTE COUNT 0.83 K/ L 1.18-3.74 L (BEAKER) (test code = 414) MONOCYTES ABSOLUTE COUNT (BEAKER) 0.45 K/ L 0.24-0.36 H (test code = 415) EOSINOPHILS ABSOLUTE COUNT 0.07 K/ L 0.04-0.36 (BEAKER) (test code = 416) BASOPHILS ABSOLUTE COUNT (BEAKER) 0.01 K/ L 0.01-0.08 (test code = 417) IMMATURE GRANULOCYTES-RELATIVE 0 % 0-1 PERCENT (BEAKER) (test code = 2801) CBC (HEMOGRAM ONLY)2021-10-20 04:09:35 Test Item Value Reference Range Interpretation Comments WHITE BLOOD CELL COUNT (BEAKER) 5.1 K/ L 3.5-10.5 (test code = 775) RED BLOOD CELL COUNT (BEAKER) 2.40 M/ L 3.93-5.22 L (test code = 761) HEMOGLOBIN (BEAKER) (test code = 6.4 GM/DL 11.2-15.7 L 410) HEMATOCRIT (BEAKER) (test code = 20.9 % 34.1-44.9 L 411) MEAN CORPUSCULAR VOLUME (BEAKER) 87.1 fL 79.4-94.8 (test code = 753) MEAN CORPUSCULAR HEMOGLOBIN 26.7 pg 25.6-32.2 (BEAKER) (test code = 751) MEAN CORPUSCULAR HEMOGLOBIN CONC 30.6 GM/DL 32.2-35.5 L (BEAKER) (test code = 752) RED CELL DISTRIBUTION WIDTH 16.4 % 11.7-14.4 H (BEAKER) (test code = 412) PLATELET COUNT (BEAKER) (test 227 K/CU MM 150-450 code = 756) MEAN PLATELET VOLUME (BEAKER) 9.6 fL 9.4-12.3 (test code = 754) NUCLEATED RED BLOOD CELLS 0 /100 WBC 0-0 (BEAKER) (test code = 413) POCT-GLUCOSE [id number] 00:35:21 Test Item Value Reference Range Interpretation Comments POC-GLUCOSE METER 120 mg/dL 70-110 H : TESTED A [facility] 6720 (BEAKER) (test code [facility], = 1538) [address]: Laboratory Assistant/Techni benjamin ID = [id number] for DENIS GERMAN Prepare [id number] 23:55:00 Test Item Value Reference Range Interpretation Comments Unit ABO (test code = 0540537) O Pos UNIT NUMBER (test code = [id number] 934-0) Status (test code = 0373140) TX_TIMEINCHART Blood Bank Product (test code FFP = 2263) PRODUCT CODE (test code = U1235C62 933-2) [facility] WITHOUT [id number] 19:26:00Unlisted Reason for Exam - Click Yes and Enter Reason Below->No [facility]A NOVOA : 1955 Sex: FFINAL REPORT EXAM/TECHNIQUE: MR, SPINE, THORACIC, WITHOUT CONTRAST INDICATION: Spinal fusion, thoracic follow-up. COMPARISON: MRI thoracic spine from 10/17/2021. FINDINGS: Exam is substantially limited by motion and metal artifact with nonvisualization of the cord and thoracic spine atthe surgical level. L1 vertebral body hemangioma is redemonstrated. The visualized segments of the cord are grossly unremarkable. The marrow is again relatively decreased in attenuation, possibly representing oncologic or hematologic process. Impression: Exam is substantially limited by motion and susceptibility artifact with nonvisualization of the surgical levels. Signed: Matthew Greeneort Verified Date/Time: 10/19/2021 19:26:42 RAD, CHEST, 1 VIEW, NON [id number] 18:13:00Reason for exam:->eval lung and ETTShould this be performed at the bedside?->Yes[facility]EName: KINDRA NOVOA : 1955 Sex: FFINAL REPORT RAD, CHEST, 1 VIEW, NON DEPT INDICATION: eval lung and ETT COMPARISON: Prior day's exam FINDINGS: Portable frontal view of the chest. IMPRESSION: Support Lines: PICC tip overlies the atriocaval junction. Status post multilevel thoracic fusion. Lungs and pleura: Small bilateral effusions and basilar atelectasis. No significant pneumothorax. Heart and mediastinum: Stable contours. Additional findings: None. Signed: Nargis Grossman Verified Date/Time: 10/19/2021 18:13:07 HEPATIC FUNCTION [id number] 12:12:39 Test Item Value Reference Range Interpretation Comments TOTAL PROTEIN (BEAKER) (test code = 5.5 gm/dL 6.0-8.3 L 770) ALBUMIN (BEAKER) (test code = 1145) 2.7 g/dL 3.5-5.0 L BILIRUBIN TOTAL (BEAKER) (test code 0.5 mg/dL 0.2-1.2 = 377) BILIRUBIN DIRECT (BEAKER) (test 0.4 mg/dL 0.1-0.5 code = 706) ALKALINE PHOSPHATASE (BEAKER) (test 138 U/L 40-150 code = 346) AST (SGOT) (BEAKER) (test code = 54 U/L 5-34 H 353) ALT (SGPT) (BEAKER) (test code = 22 U/L 6-55 347) Laboratory Assistant ID - DEANNA MBLOOD [id number] 09:18:12 Test Item Value Reference Range Interpretation Comments CULTURE (BEAKER) ENTEROCOCCUS A From Aerobi c And (test code = 1095) FAECALIS Anaerobic Bottles Enterococcus faecalis Ampicillin (test S code = 26) Gentamicin High S Level Synergy (test code = 241) Linezolid (test S code = 40) Streptomycin High S Level Synergy (test code = 242) Vancomycin (test S code = 13) GRAM STAIN RESULT From aerobic and (BEAKER) (test code anaerobic bottles: = 1123) gram positive cocci in chains and pairs [id number] 07:00:04 Test Item Value Reference Range Interpretation Comments MAGNESIUM (BEAKER) (test code = 1.9 mg/dL 1.6-2.6 627) Laboratory Assistant ID - DEANNA [id number] 07:00:04 Test Item Value Reference Range Interpretation Comments PHOSPHORUS (BEAKER) (test code = 3.6 mg/dL 2.3-4.7 604) Laboratory Assistant ID - DEANNA MCOMPREHENSIVE METABOLIC [id number] 07:00:03 Test Item Value Reference Range Interpretation Comments TOTAL PROTEIN 5.5 gm/dL 6.0-8.3 L (BEAKER) (test code = 770) ALBUMIN (BEAKER) 2.7 g/dL 3.5-5.0 L (test code = 1145) ALKALINE 137 U/L 40-150 PHOSPHATASE (BEAKER) (test code = 346) BILIRUBIN TOTAL 0.6 mg/dL 0.2-1.2 (BEAKER) (test code = 377) SODIUM (BEAKER) 137 meq/L 136-145 (test code = 381) POTASSIUM (BEAKER) 4.0 meq/L 3.5-5.1 (test code = 379) CHLORIDE (BEAKER) 108 meq/L 98-107 H (test code = 382) CO2 (BEAKER) (test 21 meq/L 22-29 L code = 355) BLOOD UREA 10 mg/dL 7-21 NITROGEN (BEAKER) (test code = 354) CREATININE 0.54 mg/dL 0.57-1.25 L (BEAKER) (test code = 358) GLUCOSE RANDOM 92 mg/dL 70-105 (BEAKER) (test code = 652) CALCIUM (BEAKER) 8.6 mg/dL 8.4-10.2 (test code = 697) AST (SGOT) 54 U/L 5-34 H (BEAKER) (test code = 353) ALT (SGPT) 23 U/L 6-55 (BEAKER) (test code = 347) EGFR (BEAKER) 102 Interpretatio n of eGFR (test code = 1092) mL/min/1.[address] age Description sq m Result G1 Edel l or high >=90 G2 Mildly decreased 60-89 G3a Mildl y to moderately 45-5 9 G3b Moderately to s everely 30-44 G4 Severl y decreased 15-29 G5 Kidney failure <15Reported eGF R is based on the CKD-EPI 2020 equation that d oes not use a race coefficientEsti mated GFR is not as accur ate as Creatinine Ama hale in predicting glom erular filtration rate . Estimated GFR is not appl icable for dialysis patien ts Laboratory Assistant ID - DEANNA MCBC W/PLT COUNT & AUTO [id number] 06:17:13 Test Item Value Reference Range Interpretation Comments WHITE BLOOD CELL COUNT (BEAKER) 6.0 K/ L 3.5-10.5 (test code = 775) RED BLOOD CELL COUNT (BEAKER) 2.84 M/ L 3.93-5.22 L (test code = 761) HEMOGLOBIN (BEAKER) (test code = 7.7 GM/DL 11.2-15.7 L 410) HEMATOCRIT (BEAKER) (test code = 24.0 % 34.1-44.9 L 411) MEAN CORPUSCULAR VOLUME (BEAKER) 84.5 fL 79.4-94.8 (test code = 753) MEAN CORPUSCULAR HEMOGLOBIN 27.1 pg 25.6-32.2 (BEAKER) (test code = 751) MEAN CORPUSCULAR HEMOGLOBIN CONC 32.1 GM/DL 32.2-35.5 L (BEAKER) (test code = 752) RED CELL DISTRIBUTION WIDTH 16.6 % 11.7-14.4 H (BEAKER) (test code = 412) PLATELET COUNT (BEAKER) (test 265 K/CU MM 150-450 code = 756) MEAN PLATELET VOLUME (BEAKER) 9.4 fL 9.4-12.3 (test code = 754) NUCLEATED RED BLOOD CELLS 0 /100 WBC 0-0 (BEAKER) (test code = 413) NEUTROPHILS RELATIVE PERCENT 84 % (BEAKER) (test code = 429) LYMPHOCYTES RELATIVE PERCENT 8 % (BEAKER) (test code = 430) MONOCYTES RELATIVE PERCENT 7 % (BEAKER) (test code = 431) EOSINOPHILS RELATIVE PERCENT 1 % (BEAKER) (test code = 432) BASOPHILS RELATIVE PERCENT 0 % (BEAKER) (test code = 437) NEUTROPHILS ABSOLUTE COUNT 5.01 K/ L 1.56-6.13 (BEAKER) (test code = 670) LYMPHOCYTES ABSOLUTE COUNT 0.50 K/ L 1.18-3.74 L (BEAKER) (test code = 414) MONOCYTES ABSOLUTE COUNT (BEAKER) 0.42 K/ L 0.24-0.36 H (test code = 415) EOSINOPHILS ABSOLUTE COUNT 0.03 K/ L 0.04-0.36 L (BEAKER) (test code = 416) BASOPHILS ABSOLUTE COUNT (BEAKER) 0.00 K/ L 0.01-0.08 L (test code = 417) IMMATURE GRANULOCYTES-RELATIVE 1 % 0-1 PERCENT (BEAKER) (test code = 2801) Blood gas, [id number] 05:56:19 Test Item Value Reference Range Interpretation Comments pH, Arterial (test code 7.40 7.35-7.45 = 2744-1) pCO2, Arterial (test 35 See_Comment [Autom ated code = 2019-8) message] The system which generated this result transmitted reference range : 35 - 45 mm Hg. The reference range was not used to interpret this result as normal/abnormal . pO2, Arterial (test 218 See_Comment H [Automa jennifer code = 2703-7) message] The system which generated this result transmitted reference range : 80 - 90 mm Hg. The reference range was not used to interpret this result as normal/abnormal . O2 Sat, Arterial (test 99.5 % 96.0-97.0 H code = 2708-6) HCO3, Arterial (test 21 mmol/L 21-29 code = 1960-4) Base Excess, Arterial -3.2 mmol/L -2.0-3.0 L (test code = 1925-7) Patient Temperature 37.5 (test code = 8310-5) FIO2 (test code = 1819) 60 Lab Interpretation Abnormal (test code = 39645-0) [facility] [id number] 05:56:19 Test Item Value Reference Range Interpretation Comments PH ARTERIAL (BEAKER) (test code = 7.40 7.35-7.45 383) PCO2 ARTERIAL (BEAKER) (test code 35 mm Hg 35-45 = 384) PO2 ARTERIAL (BEAKER) (test code 218 mm Hg 80-90 H = 385) O2 SATURATION ARTERIAL (BEAKER) 99.5 % 96.0-97.0 H (test code = 386) HCO3 ARTERIAL (BEAKER) (test code 21 mmol/L 21-29 = 388) BASE EXCESS ARTERIAL (BEAKER) -3.2 mmol/L -2.0-3.0 L (test code = 387) PATIENT TEMPERATURE (BEAKER) 37.5 (test code = 1818) FIO2 (BEAKER) (test code = 1819) 60.0 CBC (HEMOGRAM ONLY)2021-10-19 05:54:01 Test Item Value Reference Range Interpretation Comments WHITE BLOOD CELL COUNT (BEAKER) 6.0 K/ L 3.5-10.5 (test code = 775) RED BLOOD CELL COUNT (BEAKER) 2.84 M/ L 3.93-5.22 L (test code = 761) HEMOGLOBIN (BEAKER) (test code = 7.7 GM/DL 11.2-15.7 L 410) HEMATOCRIT (BEAKER) (test code = 24.0 % 34.1-44.9 L 411) MEAN CORPUSCULAR VOLUME (BEAKER) 84.5 fL 79.4-94.8 (test code = 753) MEAN CORPUSCULAR HEMOGLOBIN 27.1 pg 25.6-32.2 (BEAKER) (test code = 751) MEAN CORPUSCULAR HEMOGLOBIN CONC 32.1 GM/DL 32.2-35.5 L (BEAKER) (test code = 752) RED CELL DISTRIBUTION WIDTH 16.6 % 11.7-14.4 H (BEAKER) (test code = 412) PLATELET COUNT (BEAKER) (test 265 K/CU MM 150-450 code = 756) MEAN PLATELET VOLUME (BEAKER) 9.4 fL 9.4-12.3 (test code = 754) NUCLEATED RED BLOOD CELLS 0 /100 WBC 0-0 (BEAKER) (test code = 413) POCT-GLUCOSE [id number] 05:45:20 Test Item Value Reference Range Interpretation Comments POC-GLUCOSE METER 99 mg/dL 70-110 : TESTED A T [facility] 6720 (BEAKER) (test code = [facility], 1538) [address]: Laboratory Assistant/Techni benjamin ID = [id number] for Jigar Calderon POCT-GLUCOSE [id number] 23:32:06 Test Item Value Reference Range Interpretation Comments POC-GLUCOSE METER 93 mg/dL 70-110 : TESTED A T [facility] 6720 (BEAKER) (test code = [facility], 1538) 62119: Laboratory Assistant/Techni benjamin ID = [id number] for Jigar Calderon [id number] 22:34:59 Test Item Value Reference Range Interpretation Comments MAGNESIUM (BEAKER) (test code = 1.7 mg/dL 1.6-2.6 627) Laboratory Assistant ID - [id number] 22:34:59 Test Item Value Reference Range Interpretation Comments PHOSPHORUS (BEAKER) (test code = 4.4 mg/dL 2.3-4.7 604) Laboratory Assistant ID - BSBASIC METABOLIC [id number] 22:34:58 Test Item Value Reference Range Interpretation Comments SODIUM (BEAKER) 135 meq/L 136-145 L (test code = 381) POTASSIUM 4.1 meq/L 3.5-5.1 (BEAKER) (test code = 379) CHLORIDE (BEAKER) 107 meq/L 98-107 (test code = 382) CO2 (BEAKER) 17 meq/L 22-29 L (test code = 355) BLOOD UREA 13 mg/dL 7-21 NITROGEN (BEAKER) (test code = 354) CREATININE 0.57 mg/dL 0.57-1.25 (BEAKER) (test code = 358) GLUCOSE RANDOM 92 mg/dL 70-105 (BEAKER) (test code = 652) CALCIUM (BEAKER) 8.9 mg/dL 8.4-10.2 (test code = 697) EGFR (BEAKER) 101 Interpretatio n of eGFR (test code = mL/min/1.73 values Stage De scription 1092) sq m Result G1 Edel l or high >=90 G2 Mildly decreased 60-89 G3a Mildl y to moderately 45-5 9 G3b Moderately to s everely 30-44 G4 Severl y decreased 15-29 G5 Kidney failure <15Reported eGF R is based on the CKD-EPI 2020 equation that d oes not use a race coefficientEsti mated GFR is not as accur ate as Creatinine Ama geoffrey in predicting glom erular filtration rate . Estimated GFR is not appl icable for dialysis patien ts Laboratory Assistant ID - [id number] 22:26:00 Test Item Value Reference Range Interpretation Comments PROTIME (BEAKER) (test 15.8 seconds 11.9-14.2 H code = 759) INR (BEAKER) (test 1.34 See_Comment [Automat ed code = 370) message] The sy stem which generated this result transmitted reference range : <=5.90. The reference range was not used to interpret this result as normal/abnormal . PARTIAL THROMBOPLASTIN 42.0 seconds 22.5-36.0 H TIME (BEAKER) (test code = 760) RECOMMENDED COUMADIN/WARFARIN INR THERAPY RANGESSTANDARD DOSE: 2.0 - 3.0 Includes: PROPHYLAXIS for venous thrombosis, systemic embolization; TREATMENT for venous thrombosis and/or pulmonary embolus.HIGH RISK: Target INR is 2.5-3.5 for patients with mechanical heart valves.CBC W/PLT COUNT & AUTO [id number] 22:16:57 Test Item Value Reference Range Interpretation Comments WHITE BLOOD CELL COUNT (BEAKER) 6.8 K/ L 3.5-10.5 (test code = 775) RED BLOOD CELL COUNT (BEAKER) 2.88 M/ L 3.93-5.22 L (test code = 761) HEMOGLOBIN (BEAKER) (test code = 7.7 GM/DL 11.2-15.7 L 410) HEMATOCRIT (BEAKER) (test code = 24.9 % 34.1-44.9 L 411) MEAN CORPUSCULAR VOLUME (BEAKER) 86.5 fL 79.4-94.8 (test code = 753) MEAN CORPUSCULAR HEMOGLOBIN 26.7 pg 25.6-32.2 (BEAKER) (test code = 751) MEAN CORPUSCULAR HEMOGLOBIN CONC 30.9 GM/DL 32.2-35.5 L (BEAKER) (test code = 752) RED CELL DISTRIBUTION WIDTH 16.7 % 11.7-14.4 H (BEAKER) (test code = 412) PLATELET COUNT (BEAKER) (test 254 K/CU MM 150-450 code = 756) MEAN PLATELET VOLUME (BEAKER) 9.6 fL 9.4-12.3 (test code = 754) NUCLEATED RED BLOOD CELLS 0 /100 WBC 0-0 (BEAKER) (test code = 413) NEUTROPHILS RELATIVE PERCENT 78 % (BEAKER) (test code = 429) LYMPHOCYTES RELATIVE PERCENT 13 % (BEAKER) (test code = 430) MONOCYTES RELATIVE PERCENT 8 % (BEAKER) (test code = 431) EOSINOPHILS RELATIVE PERCENT 1 % (BEAKER) (test code = 432) BASOPHILS RELATIVE PERCENT 0 % (BEAKER) (test code = 437) NEUTROPHILS ABSOLUTE COUNT 5.24 K/ L 1.56-6.13 (BEAKER) (test code = 670) LYMPHOCYTES ABSOLUTE COUNT 0.88 K/ L 1.18-3.74 L (BEAKER) (test code = 414) MONOCYTES ABSOLUTE COUNT (BEAKER) 0.57 K/ L 0.24-0.36 H (test code = 415) EOSINOPHILS ABSOLUTE COUNT 0.04 K/ L 0.04-0.36 (BEAKER) (test code = 416) BASOPHILS ABSOLUTE COUNT (BEAKER) 0.01 K/ L 0.01-0.08 (test code = 417) IMMATURE GRANULOCYTES-RELATIVE 0 % 0-1 PERCENT (BEAKER) (test code = 2801) BLOOD GAS, [id number] 22:06:08 Test Item Value Reference Range Interpretation Comments PH ARTERIAL (BEAKER) (test code = 7.35 7.35-7.45 383) PCO2 ARTERIAL (BEAKER) (test code 40 mm Hg 35-45 = 384) PO2 ARTERIAL (BEAKER) (test code 215 mm Hg 80-90 H = 385) O2 SATURATION ARTERIAL (BEAKER) 99.4 % 96.0-97.0 H (test code = 386) HCO3 ARTERIAL (BEAKER) (test code 22 mmol/L 21-29 = 388) BASE EXCESS ARTERIAL (BEAKER) -3.4 mmol/L -2.0-3.0 L (test code = 387) PATIENT TEMPERATURE (BEAKER) 37.0 (test code = 1818) FIO2 (BEAKER) (test code = 1819) 21.0 CALCIUM, [id number] 21:55:10 Test Item Value Reference Range Interpretation Comments CALCIUM IONIZED (BEAKER) (test 1.16 mmol/L 1.12-1.27 code = 698) PH, BLOOD (BEAKER) (test code = 7.35 1810) FL, FLUORO, NON-SPECIFIC, UP TO 1 [id number] 18:27:00Reason for exam:- >THORACIC STENOSIS AND MYELOPATHY [facility] : 1955 Sex: FAnimaging unit was utilized for this procedure. No radiologist interpretation was requested. Refer to the EMR for findings. Refer to PACS for any patient radiation dose information.HGB/HCT (H&H)-Stat [id number] 17:25:27 Test Item Value Reference Range Interpretation Comments Hemoglobin (test code = 6.5 See_Comment L [Au tomated message] 786-4) The system [employer] generated this result transmitted ref erence range: 12.0 - 1 5.0 GM/DL. The refe rence range was not u sed to interpret this result as normal/abnor mal. Hematocrit (test code = 19.0 % 36.0-45.0 L 4544-3) Lab Interpretation (test Abnormal code = 97605-2) [facility] [id number] 17:25:27 Test Item Value Reference Range Interpretation Comments Sodium (test code = 2951-2) 133 meq/L 136-145 L Lab Interpretation (test code = Abnormal 88150-7) [facility] [id number] 17:25:27 Test Item Value Reference Range Interpretation Comments SODIUM (BEAKER) (test code = 381) 133 meq/L 136-145 L HGB/HCT (H&H) - STAT [id number] 17:25:27 Test Item Value Reference Range Interpretation Comments HEMOGLOBIN (BEAKER) (test code = 6.5 GM/DL 12.0-15.0 L 410) HEMATOCRIT (BEAKER) (test code = 19.0 % 36.0-45.0 L 411) BLOOD GAS, [id number] 17:25:26 Test Item Value Reference Range Interpretation Comments PH ARTERIAL (BEAKER) (test code = 7.31 7.35-7.45 L 383) PCO2 ARTERIAL (BEAKER) (test code 42 mm Hg 35-45 = 384) PO2 ARTERIAL (BEAKER) (test code 266 mm Hg 80-90 H = 385) O2 SATURATION ARTERIAL (BEAKER) 99.6 % 96.0-97.0 H (test code = 386) HCO3 ARTERIAL (BEAKER) (test code 21 mmol/L 21-29 = 388) BASE EXCESS ARTERIAL (BEAKER) -5.5 mmol/L -2.0-3.0 L (test code = 387) PATIENT TEMPERATURE (BEAKER) 36.3 (test code = 1818) FIO2 (BEAKER) (test code = 1819) 100.0 CALCIUM, [id number] 17:21:49 Test Item Value Reference Range Interpretation Comments CALCIUM IONIZED (BEAKER) (test 1.15 mmol/L 1.12-1.27 code = 698) PH, BLOOD (BEAKER) (test code = 7.30 1810) Glucose-Stat [id number] 17:21:48 Test Item Value Reference Range Interpretation Comments Glucose (test code = 2345-7) 96 mg/dL 70-110 Lab Interpretation (test code = Normal 02442-4) [facility] [id number] 17:21:48 Test Item Value Reference Range Interpretation Comments Potassium (test code = 2823-3) 3.7 meq/L 3.6-5.5 Lab Interpretation (test code = Normal 15957-1) [facility] [id number] 17:21:48 Test Item Value Reference Range Interpretation Comments GLUCOSE RANDOM (BEAKER) (test code = 96 mg/dL 70-110 652) POTASSIUM-STAT [id number] 17:21:48 Test Item Value Reference Range Interpretation Comments POTASSIUM (BEAKER) (test code = 3.7 meq/L 3.6-5.5 379) RAD, SPINE, THORACIC, 1 [id number] 15:13:00Reason for exam:->T7 CORPECTOMY,T4-T10 POSTERIOR SEGMENTAL INSTRUMENTATION AND FUSION WITH NAVIGATION [facility] : 1955 Sex: FFINAL REPORT CLINICAL HISTORY: T7 CORPECTOMY,T4-T10 POSTERIOR SEGMENTAL INSTRUMENTATION AND FUSION WITH NAVIGATION TECHNIQUE: AP view of the chest/thoracic spine COMPARISON: Chest CT 10/17/2021 IMPRESSION: An ETT projects at the do. There are two right central lines at and just below the cavoatrial junction. There are new diffuse bilateral airspace opacities Subpulmonic pleural effusions cannot be excluded. The cardiomediastinal silhouette is magnified by technique. There is a surgical clamp which projects over the lower thoracic and lumbar spine. Signed: Clayton Granados MDReport V erified Date/Time: 10/18/2021 15:13:35 Reading Location: [address] Reading Room FL, FLUORO, NON-SPECIFIC, UP TO 1 [id number] 13:35:00Reason for exam:- >T7 CORPECTOMY,T4-T10 POSTERIOR SEGMENTAL INSTRUMENTATION AND FUSION [facility]IN[facility]A N[facility]OA : 1955 Sex: FAnimaging unit was utilized for this procedure. No radiologist interpretation was requested. Refer to the EMR for findings. Refer to PACS for any patient radiation dose information.FL, FLUORO, NON-SPECIFIC, UP TO 1 [id number] 13:00:00Reason for exam:->T7 CORPECTOMY,T4-T10 POSTERIOR SEGMENTAL INSTRUMENTATION AND FUSION [facility]A NOVOA : 1955 Sex: FFINAL REPORT TECHNIQUE: 1 lateral fluoroscopic image of the mid thoracic spine forlocalization.Fluoroscopic time: 9 seconds. FINDINGS: Compared to the chest CT demonstrate a compression fracture of T7, the surgical probe appears to project behind the T6-T7 disc space, closer to T6 than T7. The findings were discussed with Dr. CHARLIE RAINEY's OR who concurred with the findings. IMPRESSION: Intraoperative localization plain film as described above. Signed: Clayton Granados MDReport Verified Date/Time: 10/18/2021 13:00:03 Reading Location: [address] Reading Room ANG, NON-TUNNELED CATH >5 Y.O. [id number] 10:33:00Reason for exam:->central line placement for TPN, old picc needs to come out sec to bacteremia [facility] : 1955 Sex: FFINAL REPORT Central catheter insertion, 10/18/2021. History: Need for TPN. Modality: Fluoroscopy and sonography. Sedation: None. Incident Handler: Thania. Telecommunications Linesworker: None. Approach: Internal jugular vein - right. Estimated blood loss: < 5 cc. Specimen: None. Fluoroscopy Time: 0.1 min. Dose (Ka,r): 7.2 mGy. Technique: Informed written consent was obtained. Discussion of risks, benefits, and alternatives were made with the patient. The patient expressed understanding and agreed toproceed. All aspects of maximal sterile barrier technique were utilized for this procedure, including washing hands with conventional soap and water or alcohol base hand rubs, utilization of sterile scrub solution for skin preparation, cap, mask, sterile gloves, sterile gown, and sterile full body drape. Sterile ultrasound techniques were followed, including sterile gel and sterile probe covers. The skin was anesthetized with 2% lidocaine. Ultrasound evaluation showed a patent and compressible right internal jugular vein, which was punctured under direct real-time ultrasound guidance with a micropuncture needle. An ultrasound image was saved to PACS. A microwire and sheath were placed. A 0.035 inch wire was placed through the sheath into the right atrium. The tract was dilated. The 16 cm 7 Frenchtriple- lumen catheter was placed over the wire with its distal tip terminating in the superior rightatrium. The ports were flushed and aspirated easily following placement. The catheter was sutured tothe skin to secure its placement. Vital signs were monitored throughout the procedure by a nurse, and remained stable. The patient tolerated the procedure well and left the department in the same condition. Results: Spot radiograph of the chest demonstrates the new triple- lumen catheter to lie in the expected position with its tip overlying the superior right atrium. Impression: Successful, uncomplicated placement of a right internal jugular triple lumen catheter using sonographic and fluoroscopic guidance. Signed: [facility]efri [facility] [place] Verified Date/Time: 10/18/2021 10:33:50 Reading Location: [place] [address] Angio Body Reading Room BLOOD [id number] 09:15:52 Test Item Value Reference Range Interpretation Comments CULTURE A From Aerobic An d (BEAKER) (test Anaerobic Bot tles Same code = 1095) organism has be en isolated from cultures(s) of the same body site and collection date . Repeat identifi cation and susceptibil ity testing perform ed only after consultat ion with the [facility] microbiology laboratory.Refe r to previous cultur e ofEnterococcus faecalis GRAM STAIN From aerobic and RESULT (BEAKER) anaerobic (test code = bottles: gram 1123) positive cocci in chains and pairs CBC W/PLT COUNT & AUTO [id number] 08:07:56 Test Item Value Reference Range Interpretation Comments WHITE BLOOD CELL COUNT (BEAKER) 6.9 K/ L 3.5-10.5 (test code = 775) RED BLOOD CELL COUNT (BEAKER) 3.69 M/ L 3.93-5.22 L (test code = 761) HEMOGLOBIN (BEAKER) (test code = 9.8 GM/DL 11.2-15.7 L 410) HEMATOCRIT (BEAKER) (test code = 31.7 % 34.1-44.9 L 411) MEAN CORPUSCULAR VOLUME (BEAKER) 85.9 fL 79.4-94.8 (test code = 753) MEAN CORPUSCULAR HEMOGLOBIN 26.6 pg 25.6-32.2 (BEAKER) (test code = 751) MEAN CORPUSCULAR HEMOGLOBIN CONC 30.9 GM/DL 32.2-35.5 L (BEAKER) (test code = 752) RED CELL DISTRIBUTION WIDTH 16.0 % 11.7-14.4 H (BEAKER) (test code = 412) PLATELET COUNT (BEAKER) (test 369 K/CU MM 150-450 code = 756) MEAN PLATELET VOLUME (BEAKER) 9.8 fL 9.4-12.3 (test code = 754) NUCLEATED RED BLOOD CELLS 0 /100 WBC 0-0 (BEAKER) (test code = 413) NEUTROPHILS RELATIVE PERCENT 76 % (BEAKER) (test code = 429) LYMPHOCYTES RELATIVE PERCENT 13 % (BEAKER) (test code = 430) MONOCYTES RELATIVE PERCENT 9 % (BEAKER) (test code = 431) EOSINOPHILS RELATIVE PERCENT 1 % (BEAKER) (test code = 432) BASOPHILS RELATIVE PERCENT 0 % (BEAKER) (test code = 437) NEUTROPHILS ABSOLUTE COUNT 5.24 K/ L 1.56-6.13 (BEAKER) (test code = 670) LYMPHOCYTES ABSOLUTE COUNT 0.90 K/ L 1.18-3.74 L (BEAKER) (test code = 414) MONOCYTES ABSOLUTE COUNT (BEAKER) 0.65 K/ L 0.24-0.36 H (test code = 415) EOSINOPHILS ABSOLUTE COUNT 0.04 K/ L 0.04-0.36 (BEAKER) (test code = 416) BASOPHILS ABSOLUTE COUNT (BEAKER) 0.03 K/ L 0.01-0.08 (test code = 417) IMMATURE GRANULOCYTES-RELATIVE 1 % 0-1 PERCENT (BEAKER) (test code = 2801) COMPREHENSIVE METABOLIC [id number] 06:00:48 Test Item Value Reference Range Interpretation Comments TOTAL PROTEIN 6.6 gm/dL 6.0-8.3 Specimen sligh tly (BEAKER) (test hemolyzed code = 770) ALBUMIN (BEAKER) 2.9 g/dL 3.5-5.0 L Specimen sl ightly (test code = 1145) hemolyzed ALKALINE 131 U/L 40-150 PHOSPHATASE (BEAKER) (test code = 346) BILIRUBIN TOTAL 0.4 mg/dL 0.2-1.2 Specimen sli ghtly (BEAKER) (test hemolyzed code = 377) SODIUM (BEAKER) 135 meq/L 136-145 L (test code = 381) POTASSIUM (BEAKER) 4.9 meq/L 3.5-5.1 Specimen slightly (test code = 379) hemolyzed CHLORIDE (BEAKER) 106 meq/L 98-107 (test code = 382) CO2 (BEAKER) (test 19 meq/L 22-29 L code = 355) BLOOD UREA 16 mg/dL 7-21 NITROGEN (BEAKER) (test code = 354) CREATININE 0.59 mg/dL 0.57-1.25 Specimen slight ly (BEAKER) (test hemolyzed code = 358) GLUCOSE RANDOM 100 mg/dL 70-105 (BEAKER) (test code = 652) CALCIUM (BEAKER) 9.4 mg/dL 8.4-10.2 (test code = 697) AST (SGOT) 31 U/L 5-34 Specimen slight ly (BEAKER) (test hemolyzed code = 353) ALT (SGPT) 20 U/L 6-55 Specimen slight ly (BEAKER) (test hemolyzed code = 347) EGFR (BEAKER) 100 Interpretatio n of eGFR (test code = 1092) mL/min/1.[address] age Description sq m Result G1 Edel l or high >=90 G2 Mildly decreased 60-89 G3a Mildl y to moderately 45-5 9 G3b Moderately to s everely 30-44 G4 Severl y decreased 15-29 G5 Kidney failure <15Reported eGF R is based on the CKD-EPI 2020 equation that d oes not use a race coefficientEsti mated GFR is not as accur ate as Creatinine Ama geoffrey in predicting glom erular filtration rate . Estimated GFR is not appl icable for dialysis patien ts Laboratory Assistant ID - DEANNA MPROTHROMBIN TIME/[id number] 05:14:59 Test Item Value Reference Range Interpretation Comments PROTIME (SCOOTER) 14.6 seconds 11.9-14.2 H (test code = 759) INR (SCOOTER) (test 1.21 See_Comment [Automat ed message] code = 370) The system [employer] generated this result transmitted ref erence range: <=5.90. The reference range was not used to int erpret this result as normal/abnormal . RECOMMENDED COUMADIN/WARFARIN INR THERAPY RANGESSTANDARD DOSE: 2.0 - 3.0 Includes: PROPHYLAXIS for venous thrombosis, systemic embolization; TREATMENT for venous thrombosis and/or pulmonary embolus.HIGH RISK: Target INR is 2.5-3.5 for patients with mechanical heart valves.Venous doppler legs bilateral 2021-10-17 23:13:26Ejection [facility] ECHO HEARTLAB ALLYSSA [facility], 1 VIEW, NON [id number] 22:59:00Reason for exam:->painShould this be performed at the bedside?->Yes [facility] PROSPERKINDRA : 1955 Sex: FFINAL REPORT TECHNIQUE: Frontal view of the chest. INDICATION: pain. COMPARISON: 10/16/2021. FINDINGS: LINES/TUBES: Right PICC line tip projected over the cavoatrial junction. HEART AND MEDIASTINUM: Cardiomediastinal contour is stable. LUNGS: The lungs are well inflated and clear. No consolidation or pulmonary edema. PLEURA: No pneumothorax. No significant pleural effusion. SOFT TISSUES AND BONES: Unremarkable. IMPRESSION:No acute cardiopulmonary process. Signed: Thelma Higgins MDReport Verified Date/Time: 10/17/2021 22:59:56 MR, SPINE, THORACIC, WITHOUT [id number] 20:29:00Unlisted Reason for Exam - Click Yes and Enter Reason Below->No [facility] : 1955 Sex: FAddendum BeginsREPORT STATUS:A Addendum: Spoke with neurosurgery regarding suspected cord compression, resulting from T6-T7 pathologic fracture. Upon review of the medical record, patient has a history of bacteremia and marrow replacement discussed within the initial report may represent sequela of discitis/osteomyelitis, resulting in pathologic fracture. Signed: Nargis Grossman MDReport Verified Date/Time: 10/17/2021 20:29:49 Addendum EndsFINAL REPORT MR, SPINE, THORACIC, WITH \\T\\ WITHOUT CONTRAST INDICATION: Myelopathy, acute or progressiveMid-back pain, neuro deficit TECHNIQUE: Multiplanar, multisequence MR imaging of the thoracic spine was performed withou t intravenous contrast. COMPARISON: CT PE 10/17/2021. FINDINGS: 1.Examination is exceptionally limitedas patient was unable to complete the exam.2.Multilevel marrow replacement, presumed to represent metastatic disease (although conceivably, multifocal osteomyelitis may have a similar appearance).3.There is a pathologic fracture at T6-T7 without further interval loss of vertebral body height compared to prior CT PE October 17, 2021. Retropulsion of fragments results in effacement of the CSF space with concern for cord compression, seen only on sagittal series as axial images were not acquired.4.Concomitant abnormal anterior paravertebral soft tissue, representing anterior epidural phlegmon and/or epidural disease spanning T6-T8. Signed: Nargis Grossman MDReport Verified Date/Time: 10/17/2021 20:16:35 2D Echo W/Doppler(CW/PW/Color) 2021-10-17 17:51:49Ejection FractionSLEH ECHO HEARTLAB MKCKESSON [facility]HE[facility] [id number] 14:04:17 Test Item Value Reference Range Interpretation Comments HEMOGLOBIN A1C 5.6 % See_Comment [Automated m essage] ELECTROPHORESIS ([email or web address]) The system which (test code = 3811) generated this result transmitted ref erence range: <=5.6%. The reference range was not used to int erpret this result as normal/abnormal . "The A1c is measured using a NGSP-certified method. HbA1c value equal to or greater than 6.5% as thediagnosis cutoff for diabetes. An HbA1c value of 5.7- 6.4% indicates increased risk for diabetes (prediabetes)."Laboratory Assistant ID - ADM TSH/FREE T4 IF [id number] 13:58:20 Test Item Value Reference Range Interpretation Comments THYROID STIMULATING HORMONE 0.630 uIU/mL 0.350-4.940 (BEAKER) (test code = 772) Laboratory Assistant ID - ADMINHEPATIC FUNCTION [id number] 13:51:54 Test Item Value Reference Range Interpretation Comments TOTAL PROTEIN (BEAKER) (test code = 6.2 gm/dL 6.0-8.3 770) ALBUMIN (BEAKER) (test code = 1145) 2.8 g/dL 3.5-5.0 L BILIRUBIN TOTAL (BEAKER) (test code 0.4 mg/dL 0.2-1.2 = 377) BILIRUBIN DIRECT (BEAKER) (test 0.2 mg/dL 0.1-0.5 code = 706) ALKALINE PHOSPHATASE (BEAKER) (test 137 U/L 40-150 code = 346) AST (SGOT) (BEAKER) (test code = 21 U/L 5-34 353) ALT (SGPT) (BEAKER) (test code = 15 U/L 6-55 347) Laboratory Assistant ID - [id number] 13:51:53 Test Item Value Reference Range Interpretation Comments PHOSPHORUS (BEAKER) (test code = 2.9 mg/dL 2.3-4.7 604) Laboratory Assistant ID - ADMINLIPID [id number] 13:51:53 Test Item Value Reference Range Interpretation Comments TRIGLYCERIDES (BEAKER) (test code = 152 mg/dL 540) CHOLESTEROL (BEAKER) (test code = 103 mg/dL 631) HDL CHOLESTEROL (BEAKER) (test code 13 mg/dL = 976) LDL CHOLESTEROL CALCULATED (BEAKER) 60 mg/dL (test code = 633) Triglyceride Reference Range: Low Risk <150 Borderline 150-199 High Risk 200- 499 Very High Risk >=500Cholesterol Reference Range: Low Risk <200 Borderline 200-239 High Risk >240HDL Cholesterol Reference Range: Low Risk >=60 High Risk <40LDL Cholesterol Reference Range: Optimal <100 Near Optimal 100-129 Borderline 130-159 High 160-189 Very High >=190 Laboratory Assistant ID - ADMINBASIC METABOLIC [id number] 13:51:52 Test Item Value Reference Range Interpretation Comments SODIUM (BEAKER) 133 meq/L 136-145 L (test code = 381) POTASSIUM 4.1 meq/L 3.5-5.1 (BEAKER) (test code = 379) CHLORIDE (BEAKER) 105 meq/L 98-107 (test code = 382) CO2 (BEAKER) 19 meq/L 22-29 L (test code = 355) BLOOD UREA 20 mg/dL 7-21 NITROGEN (BEAKER) (test code = 354) CREATININE 0.64 mg/dL 0.57-1.25 (BEAKER) (test code = 358) GLUCOSE RANDOM 128 mg/dL 70-105 H (BEAKER) (test code = 652) CALCIUM (BEAKER) 8.8 mg/dL 8.4-10.2 (test code = 697) EGFR (BEAKER) 98 Interpretatio n of eGFR (test code = mL/min/1.73 values Stage De scription 1092) sq m Result G1 Edel l or high >=90 G2 Mildly decreased 60-89 G3a Mildl y to moderately 45-5 9 G3b Moderately to s everely 30-44 G4 Severl y decreased 15-29 G5 Kidney failure <15Reported eGF R is based on the CKD-EPI 202 equation that d oes not use a race coefficientEsti mated GFR is not as accur ate as Creatinine Ama geoffrey in predicting glom erular filtration rate . Estimated GFR is not appl icable for dialysis patien ts Laboratory Assistant ID - [id number] 13:51:52 Test Item Value Reference Range Interpretation Comments MAGNESIUM (SCOOTER) (test code = 2.1 mg/dL 1.6-2.6 627) Laboratory Assistant ID - ADMINHIGH SENSITIVITY TROPONIN [id number] 13:39:12 Test Item Value Reference Range Interpretation Comments HIGH SENSITIVITY 197 pg/ml See_Comment H [Automated message] TROPONIN I (test code The sy stem which = [id number]) generated this result transmitted ref erence range: <=17. Th e reference range was not used to int erpret this result as normal/abnormal . Laboratory Assistant ID - ADMINThe CIVIL ENGINEERING SPECIALIST STAT High Sensitivity Troponin-I results should be used in conjunction with other diagnostic information such as ECG, clinical observations and information, and patientsymptoms to aid in the diagnosis of [facility]. [id number] 13:25:05 Test Item Value Reference Range Interpretation Comments PROTIME (SCOOTER) (test 15.8 seconds 11.9-14.2 H code = 759) INR (SCOOTER) (test 1.35 See_Comment [Automat ed code = 370) message] The sy stem which generated this result transmitted reference range : <=5.90. The reference range was not used to interpret this result as normal/abnormal . PARTIAL THROMBOPLASTIN 43.5 seconds 22.5-36.0 H TIME (SCOOTER) (test code = 760) RECOMMENDED COUMADIN/WARFARIN INR THERAPY RANGESSTANDARD DOSE: 2.0 - 3.0 Includes: PROPHYLAXIS for venous thrombosis, systemic embolization; TREATMENT for venous thrombosis and/or pulmonary embolus.HIGH RISK: Target INR is 2.5-3.5 for patients with mechanical heart valves.CBC W/PLT COUNT & AUTO [id number] 13:14:58 Test Item Value Reference Range Interpretation Comments WHITE BLOOD CELL COUNT (BEAKER) 8.0 K/ L 3.5-10.5 (test code = 775) RED BLOOD CELL COUNT (BEAKER) 3.01 M/ L 3.93-5.22 L (test code = 761) HEMOGLOBIN (BEAKER) (test code = 7.8 GM/DL 11.2-15.7 L 410) HEMATOCRIT (BEAKER) (test code = 24.7 % 34.1-44.9 L 411) MEAN CORPUSCULAR VOLUME (BEAKER) 82.1 fL 79.4-94.8 (test code = 753) MEAN CORPUSCULAR HEMOGLOBIN 25.9 pg 25.6-32.2 (BEAKER) (test code = 751) MEAN CORPUSCULAR HEMOGLOBIN CONC 31.6 GM/DL 32.2-35.5 L (BEAKER) (test code = 752) RED CELL DISTRIBUTION WIDTH 16.1 % 11.7-14.4 H (BEAKER) (test code = 412) PLATELET COUNT (BEAKER) (test 350 K/CU MM 150-450 code = 756) MEAN PLATELET VOLUME (BEAKER) 9.6 fL 9.4-12.3 (test code = 754) NUCLEATED RED BLOOD CELLS 0 /100 WBC 0-0 (BEAKER) (test code = 413) NEUTROPHILS RELATIVE PERCENT 75 % (BEAKER) (test code = 429) LYMPHOCYTES RELATIVE PERCENT 13 % (BEAKER) (test code = 430) MONOCYTES RELATIVE PERCENT 11 % (BEAKER) (test code = 431) EOSINOPHILS RELATIVE PERCENT 0 % (BEAKER) (test code = 432) BASOPHILS RELATIVE PERCENT 0 % (BEAKER) (test code = 437) NEUTROPHILS ABSOLUTE COUNT 5.97 K/ L 1.56-6.13 (BEAKER) (test code = 670) LYMPHOCYTES ABSOLUTE COUNT 1.07 K/ L 1.18-3.74 L (BEAKER) (test code = 414) MONOCYTES ABSOLUTE COUNT (BEAKER) 0.91 K/ L 0.24-0.36 H (test code = 415) EOSINOPHILS ABSOLUTE COUNT 0.00 K/ L 0.04-0.36 L (BEAKER) (test code = 416) BASOPHILS ABSOLUTE COUNT (BEAKER) 0.01 K/ L 0.01-0.08 (test code = 417) IMMATURE GRANULOCYTES-RELATIVE 0 % 0-1 PERCENT (BEAKER) (test code = 2801) CT, CHEST WITH IV CONTRAST- PE TEST [id number] 04:53:00Unlisted Reason for Exam - Click Yes and Enter Reason Below->No [facility] : 1955 Sex: FFINAL REPORT EXAM/TECHNIQUE: CT angiography of the chest pulmonary embolus protocol. MIPS sequences were acquired. Dose modulation, iterative reconstruction, and/or weight based adjustment of the mA/kV was utilized to reduce the radiation dose to as low as reasonably achievable. INDICATION: Pulmonary embolism. COMPARISON: CT chest from 10/05/2021. FINDINGS: Lower Neck: Unremarkable. Parenchyma/Pleura: Decreased pleural effusions and basilar pulmonary opacities. Airways: Unremarkable. Cardiac: The heart is normal in size. Trace pericardial effusion. Mediastinum/lymph nodes: No lymphadenopathy. Vessels: No filling defect. Osseous: Interval increase in compression fracture of the T7 vertebral body anterior and posterior column. Upper abdomen: Unremarkable. Impression: 1. No acute pulmonary embolism. 2. Newly progressed acute compression fracture of T7 vertebral body. 3. Decreased pleural effusions and basilar pulmonary opacities may represent infection improvement. Signed: Matthew Greene MDReport Verified Date/Time: 10/17/2021 04:53:26 [employer] CULTURE IDENTIFICATION [id number] 23:19:50 Test Item Value Reference Interpretation Comments Range LISTERIA MONOCYTOGENES Not detected Not detected (test code = 9772076) STAPHYLOCOCCUS (test Not detected Not detected code = 3459146) STAPHYLOCOCCUS AUREUS Not detected Not detected (test code = 8752539) STREPTOCOCCUS (test code Not detected Not detected = 2263275) STREPTOCOCCUS AGALACTIAE Not detected Not detected (GROUP B) (test code = 4985989) STREPTOCOCCUS PNEUMONIAE Not detected Not detected (test code = 1529362) STREPTOCOCCUS PYOGENES Not detected Not detected (GROUP A) (test code = 4477246) ACINETOBACTER BAUMANNII Not detected Not detected (test code = 6363042) HAEMOPHILUS INFLUENZAE Not detected Not detected (test code = 7869626) NEISSERIA MENINGITIDIS Not detected Not detected (test code = 3238620) ENTEROBACTERIACEAE (test Not detected Not detected code = 0398546) ENTEROBACTER CLOACOE Not detected Not detected COMPLEX (test code = 9723375) KLEBSIELLA OXYTOCA (test Not detected Not detected code = 3494092) KLEBSIELLA PNEUMONIAE Not detected Not detected (test code = 1650) PROTEUS (test code = Not detected Not detected 0059431) SERRATIA MARCESCENS Not detected Not detected (test code = 6188974) LAKISHA ALBICANS (test Not detected Not detected code = 4250989) LAKISHA GLABRATA (test Not detected Not detected code = 8806596) LAKISHA KRUSEI (test Not detected Not detected code = 0824605) LAKISHA PARAPSILOSIS Not detected Not detected (test code = 5581481) LAKISHA TROPICALIS (test Not detected Not detected code = 4618017) ESCHERICHIA COLI (test Not detected Not detected code = 5716453) METHICILLIN-RESISTANCE GENE (test code = 1146425) VANCOMYCIN-RESISTANCE Not detected Not detected Note: Antimicrobial GENE (test code = resistance can 8854834) occur via multi ple mechanisms. A N ot Detected result for the [employer] antimicrobial resistance gene assays does not indicate antimicrobial susceptibility. Subculturing is required for species identification and susceptibility testing of isolates. CARBAPENEM-RESISTANCE GENE (test code = 4869487) ENTEROCOCCUS-BEAKER Detected Not detected A Vancomyc in-suscepti (test code = 4607979) ble En terococcus (VSE)First-line therapy: Vancom ycin or Ampicillin (Ampicillin onl y if confirmed susceptible) Reference Range : Not Detected PSEUDOMONAS Not detected Not detected AERUGINOSA-BEAKER (test code = 2137833) Other bacteria and resistance markers not targeted by this PCR panel cannot be excluded; therefore clinical correlation and follow up of serology, culture results, and other molecular studies is required. The results are not intended to be used as the sole means for clinical diagnosis or patient management decisions. This sample was tested at the [facility] Molecular Diagnostics Laboratory using the [employer] Blood Culture ID Panel. It is FDA cleared and has been verified and approved by the [facility] for clinical use. This laboratory is CLIA-certified and College ofAmerican Pathologists (CAP)-accredited to perform high complexity testing.B-TYPE NATRIURETIC FACTOR (BNP)2021-10-16 23:01:08 Test Item Value Reference Range Interpretation Comments B-TYPE NATRIURETIC PEPTIDE (BEAKER) 46 pg/mL 0-100 (test code = 700) Laboratory Assistant ID - PIAYA LBASIC METABOLIC [id number] 22:54:52 Test Item Value Reference Range Interpretation Comments SODIUM (BEAKER) 133 meq/L 136-145 L (test code = 381) POTASSIUM 4.2 meq/L 3.5-5.1 (BEAKER) (test code = 379) CHLORIDE (BEAKER) 103 meq/L 98-107 (test code = 382) CO2 (BEAKER) 19 meq/L 22-29 L (test code = 355) BLOOD UREA 24 mg/dL 7-21 H NITROGEN (BEAKER) (test code = 354) CREATININE 0.72 mg/dL 0.57-1.25 (BEAKER) (test code = 358) GLUCOSE RANDOM 99 mg/dL 70-105 (BEAKER) (test code = 652) CALCIUM (BEAKER) 9.3 mg/dL 8.4-10.2 (test code = 697) EGFR (BEAKER) 93 Interpretatio n of eGFR (test code = mL/min/1.73 values Stage De scription 1092) sq m Result G1 Edel l or high >=90 G2 Mildly decreased 60-89 G3a Mildl y to moderately 45-5 9 G3b Moderately to s everely 30-44 G4 Severl y decreased 15-29 G5 Kidney failure <15Reported eGF R is based on the CKD-EPI 2021 equation that d oes not use a race coefficientEsti mated GFR is not as accur ate as Creatinine Ama geoffrey in predicting glom erular filtration rate . Estimated GFR is not appl icable for dialysis patien ts Laboratory Assistant ID - [id number] 22:54:52 Test Item Value Reference Range Interpretation Comments MAGNESIUM (BEAKER) (test code = 2.1 mg/dL 1.6-2.6 627) Laboratory Assistant ID - [id number] 22:45:10 Test Item Value Reference Range Interpretation Comments D-DIMER QUANTITATIVE (BEAKER) 3.22 MG/L FEU <0.50 H (test code = 671) Intended Use: The D-Dimer Assay can be used to aid in the diagnosis of Deep Vein Thrombosis (DVT) and Pulmonary Embolism Disease (PED).In patients with low pre- test probability, various studies concerning STA Liatest D-dimer test have reported that with a cutoff value of 0.50 MG/L FEU, the Negative Predictive Value (NPV) regarding the exclusion of thrombosis is within 95-100% range.LACTIC ACID, [id number] 22:40:28 Test Item Value Reference Range Interpretation Comments LACTATE BLOOD VENOUS 1.29 mmol/L 0.50-2.20 Specime n slightly (2) (BEAKER) (test hemolyzed code = 2872) Laboratory Assistant ID - ADMINBLOOD GAS, [id number] 22:38:26 Test Item Value Reference Range Interpretation Comments PH VENOUS (BEAKER) (test code = 7.42 7.32-7.42 701) PCO2 VENOUS (BEAKER) (test code = 37 mm Hg 41-51 L 755) PO2 VENOUS (BEAKER) (test code = 29 mm Hg 25-40 702) O2 SATURATION VENOUS (BEAKER) 56.0 % 40.0-70.0 (test code = 703) HCO3 VENOUS (BEAKER) (test code = 24 mmol/L 21-29 705) BASE EXCESS VENOUS (BEAKER) (test -0.5 mmol/L -2.0-3.0 code = 704) PATIENT TEMPERATURE (BEAKER) 36.9 (test code = 1818) FIO2 (BEAKER) (test code = 1819) 95.0 CBC W/PLT COUNT & AUTO [id number] 22:34:58 Test Item Value Reference Range Interpretation Comments WHITE BLOOD CELL COUNT (BEAKER) 7.8 K/ L 3.5-10.5 (test code = 775) RED BLOOD CELL COUNT (BEAKER) 3.52 M/ L 3.93-5.22 L (test code = 761) HEMOGLOBIN (BEAKER) (test code = 9.0 GM/DL 11.2-15.7 L 410) HEMATOCRIT (BEAKER) (test code = 29.8 % 34.1-44.9 L 411) MEAN CORPUSCULAR VOLUME (BEAKER) 84.7 fL 79.4-94.8 (test code = 753) MEAN CORPUSCULAR HEMOGLOBIN 25.6 pg 25.6-32.2 (BEAKER) (test code = 751) MEAN CORPUSCULAR HEMOGLOBIN CONC 30.2 GM/DL 32.2-35.5 L (BEAKER) (test code = 752) RED CELL DISTRIBUTION WIDTH 15.9 % 11.7-14.4 H (BEAKER) (test code = 412) PLATELET COUNT (BEAKER) (test 334 K/CU MM 150-450 code = 756) MEAN PLATELET VOLUME (BEAKER) 9.4 fL 9.4-12.3 (test code = 754) NUCLEATED RED BLOOD CELLS 0 /100 WBC 0-0 (BEAKER) (test code = 413) NEUTROPHILS RELATIVE PERCENT 82 % (BEAKER) (test code = 429) LYMPHOCYTES RELATIVE PERCENT 10 % (BEAKER) (test code = 430) MONOCYTES RELATIVE PERCENT 8 % (BEAKER) (test code = 431) EOSINOPHILS RELATIVE PERCENT 0 % (BEAKER) (test code = 432) BASOPHILS RELATIVE PERCENT 0 % (BEAKER) (test code = 437) NEUTROPHILS ABSOLUTE COUNT 6.42 K/ L 1.56-6.13 H (BEAKER) (test code = 670) LYMPHOCYTES ABSOLUTE COUNT 0.75 K/ L 1.18-3.74 L (BEAKER) (test code = 414) MONOCYTES ABSOLUTE COUNT (BEAKER) 0.63 K/ L 0.24-0.36 H (test code = 415) EOSINOPHILS ABSOLUTE COUNT 0.00 K/ L 0.04-0.36 L (BEAKER) (test code = 416) BASOPHILS ABSOLUTE COUNT (BEAKER) 0.01 K/ L 0.01-0.08 (test code = 417) IMMATURE GRANULOCYTES-RELATIVE 0 % 0-1 PERCENT (BEAKER) (test code = 2801) HIGH SENSITIVITY TROPONIN [id number] 22:16:22 Test Item Value Reference Range Interpretation Comments HIGH SENSITIVITY 231 pg/ml See_Comment H [Automated message] TROPONIN I (test code The sy stem which = [id number]) generated this result transmitted ref erence range: <=17. Th e reference range was not used to int erpret this result as normal/abnormal . Laboratory Assistant ID - ADMINThe CIVIL ENGINEERING SPECIALIST STAT High Sensitivity Troponin-I results should be used in conjunction with other diagnostic information such as ECG, clinical observations and information, and patientsymptoms to aid in the diagnosis of [facility]. Urinalysis w/[id number] 16:27:57 Test Item Value Reference Range Interpretation Comments Color, UA (test code Yellow = 5778-6) Clarity, UA (test Clear code = 5767-9) Specific [place], UA 1.037 1.001-1.035 H (test code = 5811-5) pH, UA (test code = 6.0 5.0-8.0 5803-2) Protein, UA (test 30 mg/dL Negative A code = 79929-0) Glucose, UA (test Negative Negative code = 365) Ketones, UA (test Negative Negative code = 2514-8) Bilirubin, UA (test Negative Negative code = 67502-1) Blood, UA (test code Negative Negative = 30952-5) Nitrite, UA (test Negative Negative code = 5802-4) Leukocytes, UA (test Large Negative A code = 5799-2) Urobilinogen, UA 0.2 mg/dL 0.2-1.0 (test code = 34608-3) RBC, UA (test code = 3 See_Comment [Autom ated 19106-8) message] The system which generated this result transmitted reference range : /HPF. The reference range was not used to interpret this result as normal/abnormal . WBC, UA (test code = 6 See_Comment [Autom ated 5821-4) message] The system which generated this result transmitted reference range : /HPF. The reference range was not used to interpret this result as normal/abnormal . Bacteria, UA (test Occasional code = 87533-9) Squam Epithel, UA 1 See_Comment [Automate d (test code = 20636-7) messag e] The system which generated this result transmitted reference range : /HPF. The reference range was not used to interpret this result as normal/abnormal . Hyaline Casts, UA 4 See_Comment [Automate d (test code = 77421-0) lissethag e] The system which generated this result transmitted reference range : /LPF. The reference range was not used to interpret this result as normal/abnormal . Crystals, Urine (test None Seen code = 41546-5) Specimen Source (test Urine, Voided code = 2795) YULI (test code = YULI) Laboratory Assistant ID - [auto]Laboratory Assistant ID - tech Lab Interpretation Abnormal (test code = 05887-7) [facility] [id number] 16:27:57 Test Item Value Reference Range Interpretation Comments COLOR (BEAKER) (test code = Yellow 470) CLARITY (BEAKER) (test code = Clear 469) SPECIFIC GRAVITY UA (BEAKER) 1.037 1.001-1.035 H (test code = 468) PH UA (BEAKER) (test code = 6.0 5.0-8.0 467) PROTEIN UA (BEAKER) (test code 30 mg/dL Negative A = 464) GLUCOSE UA (BEAKER) (test code Negative Negative = 365) KETONES UA (BEAKER) (test code Negative Negative = 371) BILIRUBIN UA (BEAKER) (test Negative Negative code = 462) BLOOD UA (BEAKER) (test code = Negative Negative 461) NITRITE UA (BEAKER) (test code Negative Negative = 465) LEUKOCYTE ESTERASE UA (BEAKER) Large Negative A (test code = 466) UROBILINOGEN UA (BEAKER) (test 0.2 mg/dL 0.2-1.0 code = 463) RBC UA (BEAKER) (test code = 3 /HPF 519) WBC UA (BEAKER) (test code = 6 /HPF 520) BACTERIA (BEAKER) (test code = Occasional 517) SQUAMOUS EPITHELIAL (BEAKER) 1 /HPF (test code = 516) HYALINE CASTS (BEAKER) (test 4 /LPF code = 514) CRYSTALS, URINE (BEAKER) (test None Seen code = 1521) SOURCE(BEAKER) (test code = Urine, Voided 2795) Laboratory Assistant ID - [auto]Laboratory Assistant ID - [id number] 15:48:59 Test Item Value Reference Range Interpretation Comments LIPASE (BEAKER) (test code = 749) 37 U/L 8-78 Laboratory Assistant ID - BSCT, [id number] 15:14:00Unlisted Reason for Exam - Click Yes and Enter Reason Below->YesUnlisted Reason for Exam->hx SBO, worsening pain, feverIs this for enterography?->NoWill this procedure require oral contrast?->No[facility] : 1955 Sex: FFINAL REPORT CT abdomen and pelvis with contrast History: History of small bowel obstruction with worsening abdominal pain and fever Comparison: 10/02/2021 Technique: serial axial imaging was performed following up to 100cc of non ionic iodinated intravenous contrast as per departmental protocol. Multiplanar images are reconstructed and reviewed when indicated. This CT examination isperformed using one or more of the following dose reduction techniques: Automated exposure control, adjustment of the mA and /or kV according to patient size, and/or use of iterative reconstruction technique. Findings: Bilateral lower lobe subsegmental atelectasis. Unremarkable appearance of pancreas and spleen. Unremarkable appearance of the liver. Cholelithiasis, without evidence of acute cholecystitis. Unremarkable appearance of the adrenal glands. 2.5 cm simple appearing right renal cyst requires no further follow-up. No hydronephrosis or suspicious renal masses. Unremarkable appearance of the u reters and urinary bladder. Unremarkable appearance of the uterus and adnexa. . No small or large bowel obstruction. No apparent bowel wall thickening. No findings to indicate acute appendicitis. No free fluid or lymphadenopathy. No abdominal aortic aneurysm. Small fat-containing umbilical hernia. No aggressive osseous lesion. Impression: 1. No acute findings in the abdomen or pelvis.2. Cholelithiasis, without evidence of acute cholecystitis. Signed: Wiley Jennings MDReport Verified Date/Time: 10/16/2021 15:14:49 Reading Location: [facility] Diagnostic Imaging Reading Room - [place] [address] Electronicallysigned by: WILEY JENNINGS MD on 10/16/2021 03:14 PMSARS-COV2/RT-PCR ([facility]) 2021-10-16 15:00:07 Test Item Value Reference Range Interpretation Comments SARS-COV2/RT-PCR Negative Negative The SARS-Co V-2 target (test code = nucleic acids a re not 9110448) detected in thi s specimen. Negative result s do not preclude SARS-C oV-2 infection and s hould not be used as the barber e basis for patient managem ent decisions. Nega tive results must be combine d with clinical observ ations, patient history , and epidemiological information. A false negativ e result may occur if a spec imen is improperly eric ected, transported or handled. This SARS CoV-2 test is a rapid, real-time RT-PC R test intended for th e qualitative detection of nu cleic acid from SARS-CoV-2 in a nasopharyngeal swab specimen collected from individuals suspected of CO VID-19 by their healthcar e provider. This test has been authorized by FDA under an EUA for use by authorized laboratories. This test is only authorized for the duration of the declaration that circumstances exist justifying the authorization of emergency use of in vitro diagnostic tests for detection and/or diagnosis of COVID-19 under Section 564(b)(1) of the Federal Food, Drug and Cosmetic Act, 21 U.S.C. 360bbb-3(b)(1), unless the authorization is terminated or revoked sooner. Fact Sheet for Healthcare Providers: https://www.[employer]/Documents/Xpert%20Xpress%20SARS%20CoV-2/Fact%20Sheets/872-9204%09XMXL-BRS-3%20 HEALTHCARE%20PROVIDERS%20FACT%20SHEET.pdf Fact Sheet for Healthcare Patients: https://www.[employer]/Documents/Xpert%20Xp ress%20SARS%20CoV-2/Fact%20Sheets/346-3801%69JYJN-BGS-9%20PATIENT%20FACT%20SHEET .pdfBLOOD GAS, [id number] 13:24:54 Test Item Value Reference Range Interpretation Comments PH VENOUS (BEAKER) (test code = 7.38 7.32-7.42 701) PCO2 VENOUS (BEAKER) (test code = 40 mm Hg 41-51 L 755) PO2 VENOUS (BEAKER) (test code = 33 mm Hg 25-40 702) O2 SATURATION VENOUS (BEAKER) 61.8 % 40.0-70.0 (test code = 703) HCO3 VENOUS (BEAKER) (test code = 23 mmol/L 21-29 705) BASE EXCESS VENOUS (BEAKER) (test -1.5 mmol/L -2.0-3.0 code = 704) PATIENT TEMPERATURE (BEAKER) 37.0 (test code = 1818) FIO2 (BEAKER) (test code = 1819) 21.0 HIGH SENSITIVITY TROPONIN [id number] 12:29:36 Test Item Value Reference Range Interpretation Comments HIGH SENSITIVITY 351 pg/ml See_Comment H [Automated message] TROPONIN I (test code The sy stem which = 3863274) generated this result transmitted ref erence range: <=17. Th e reference range was not used to int erpret this result as normal/abnormal . Laboratory Assistant ID - DEANNA MThe CIVIL ENGINEERING SPECIALIST STAT High Sensitivity Troponin-I results should be used in conjunction with other diagnostic information such as ECG, clinical observations and information, and patient symptoms to aid in the diagnosis of [facility].COMPREHENSIVE METABOLIC [id number] 12:23:15 Test Item Value Reference Range Interpretation Comments TOTAL PROTEIN 7.3 gm/dL 6.0-8.3 (BEAKER) (test code = 770) ALBUMIN (BEAKER) 3.4 g/dL 3.5-5.0 L (test code = 1145) ALKALINE 160 U/L 40-150 H PHOSPHATASE (BEAKER) (test code = 346) BILIRUBIN TOTAL 0.5 mg/dL 0.2-1.2 (BEAKER) (test code = 377) SODIUM (BEAKER) 133 meq/L 136-145 L (test code = 381) POTASSIUM (BEAKER) 4.2 meq/L 3.5-5.1 (test code = 379) CHLORIDE (BEAKER) 101 meq/L 98-107 (test code = 382) CO2 (BEAKER) (test 22 meq/L 22-29 code = 355) BLOOD UREA 23 mg/dL 7-21 H NITROGEN (BEAKER) (test code = 354) CREATININE 0.73 mg/dL 0.57-1.25 (BEAKER) (test code = 358) GLUCOSE RANDOM 135 mg/dL 70-105 H (BEAKER) (test code = 652) CALCIUM (BEAKER) 9.6 mg/dL 8.4-10.2 (test code = 697) AST (SGOT) 24 U/L 5-34 (BEAKER) (test code = 353) ALT (SGPT) 24 U/L 6-55 (BEAKER) (test code = 347) EGFR (BEAKER) 91 Interpretatio n of eGFR (test code = 1092) mL/min/1.[address] age Description sq m Result G1 Edel l or high >=90 G2 Mildly decreased 60-89 G3a Mildl y to moderately 45-5 9 G3b Moderately to s everely 30-44 G4 Severl y decreased 15-29 G5 Kidney failure <15Reported eGF R is based on the CKD-EPI 202 equation that d oes not use a race coefficientEsti mated GFR is not as accur ate as Creatinine Ama geoffrey in predicting glom erular filtration rate . Estimated GFR is not appl icable for dialysis patien ts Laboratory Assistant ID - DEANNA [id number] 12:18:57 Test Item Value Reference Range Interpretation Comments PARTIAL THROMBOPLASTIN TIME 46.4 seconds 22.5-36.0 H (BEAKER) (test code = 760) PROTHROMBIN [id number] 12:17:54 Test Item Value Reference Range Interpretation Comments PROTIME (BEAKER) 14.0 seconds 11.9-14.2 (test code = 759) INR (BEAKER) (test 1.10 See_Comment [Automat ed message] code = 370) The system [employer] generated this result transmitted ref erence range: <=5.90. The reference range was not used to int erpret this result as normal/abnormal . RECOMMENDED COUMADIN/WARFARIN INR THERAPY RANGESSTANDARD DOSE: 2.0 - 3.0 Includes: PROPHYLAXIS for venous thrombosis, systemic embolization; TREATMENT for venous thrombosis and/or pulmonary embolus.HIGH RISK: Target INR is 2.5-3.5 for patients with mechanical heart valves.CBC W/PLT COUNT & AUTO [id number] 12:12:51 Test Item Value Reference Range Interpretation Comments WHITE BLOOD CELL COUNT (BEAKER) 8.7 K/ L 3.5-10.5 (test code = 775) RED BLOOD CELL COUNT (BEAKER) 3.63 M/ L 3.93-5.22 L (test code = 761) HEMOGLOBIN (BEAKER) (test code = 9.4 GM/DL 11.2-15.7 L 410) HEMATOCRIT (BEAKER) (test code = 31.1 % 34.1-44.9 L 411) MEAN CORPUSCULAR VOLUME (BEAKER) 85.7 fL 79.4-94.8 (test code = 753) MEAN CORPUSCULAR HEMOGLOBIN 25.9 pg 25.6-32.2 (BEAKER) (test code = 751) MEAN CORPUSCULAR HEMOGLOBIN CONC 30.2 GM/DL 32.2-35.5 L (BEAKER) (test code = 752) RED CELL DISTRIBUTION WIDTH 15.9 % 11.7-14.4 H (BEAKER) (test code = 412) PLATELET COUNT (BEAKER) (test 399 K/CU MM 150-450 code = 756) MEAN PLATELET VOLUME (BEAKER) 9.9 fL 9.4-12.3 (test code = 754) NUCLEATED RED BLOOD CELLS 0 /100 WBC 0-0 (BEAKER) (test code = 413) NEUTROPHILS RELATIVE PERCENT 81 % (BEAKER) (test code = 429) LYMPHOCYTES RELATIVE PERCENT 10 % (BEAKER) (test code = 430) MONOCYTES RELATIVE PERCENT 8 % (BEAKER) (test code = 431) EOSINOPHILS RELATIVE PERCENT 0 % (BEAKER) (test code = 432) BASOPHILS RELATIVE PERCENT 0 % (BEAKER) (test code = 437) NEUTROPHILS ABSOLUTE COUNT 7.10 K/ L 1.56-6.13 H (BEAKER) (test code = 670) LYMPHOCYTES ABSOLUTE COUNT 0.86 K/ L 1.18-3.74 L (BEAKER) (test code = 414) MONOCYTES ABSOLUTE COUNT (BEAKER) 0.72 K/ L 0.24-0.36 H (test code = 415) EOSINOPHILS ABSOLUTE COUNT 0.00 K/ L 0.04-0.36 L (BEAKER) (test code = 416) BASOPHILS ABSOLUTE COUNT (BEAKER) 0.00 K/ L 0.01-0.08 L (test code = 417) IMMATURE GRANULOCYTES-RELATIVE 1 % 0-1 PERCENT (BEAKER) (test code = 2801) LACTIC ACID, [id number] 12:09:49 Test Item Value Reference Range Interpretation Comments LACTATE BLOOD VENOUS 0.98 mmol/L 0.50-2.20 Specime n slightly (2) (BEAKER) (test hemolyzed code = 2872) Laboratory Assistant ID - DEANNA MRAD, CHEST, 1 VIEW, NON [id number] 10:28:00Reason for exam:->fever, CPShould this be performed at the bedside?->Yes [facility] KINDRA NOVOA : 1955 Sex: FFINAL REPORT CLINICAL HISTORY: fever, CP TECHNIQUE: 1 view of the chest. COMPARISON: 10/04/2021 IMPRESSION: Right PICC line again seen. Previous airspace opacities have nearly resolved, with some prominent linear lung markings remaining in the left lung. No significant pleural fluid. The cardiomediastinal silhouette is magnified by technique. Signed: Clayton Granados MDReport Verified Da te/Time: 10/16/2021 10:28:56 Reading Location: [address] Reading Room POCT- GLUCOSE [id number] 12:03:33 Test Item Value Reference Range Interpretation Comments POC-GLUCOSE METER 126 mg/dL 70-110 H : TESTED A T [facility] 6720 (BEAKER) (test code = MIHAELA [place], 1538) [id number]: Laboratory Assistant/Techni benjamin ID = [id number] for PENNY French POCT-GLUCOSE [id number] 07:30:58 Test Item Value Reference Range Interpretation Comments POC-GLUCOSE METER 129 mg/dL 70-110 H : TESTED A T [facility] 6720 (BEAKER) (test code = MIHAELA Garcia [place], 1538) [address]: Laboratory Assistant/Techni benjamin ID = [id number] for PENNY French COMPREHENSIVE METABOLIC [id number] 06:49:09 Test Item Value Reference Range Interpretation Comments TOTAL PROTEIN 6.6 gm/dL 6.0-8.3 (BEAKER) (test code = 770) ALBUMIN (BEAKER) 3.1 g/dL 3.5-5.0 L (test code = 1145) ALKALINE 140 U/L 40-150 PHOSPHATASE (BEAKER) (test code = 346) BILIRUBIN TOTAL 0.4 mg/dL 0.2-1.2 (BEAKER) (test code = 377) SODIUM (BEAKER) 135 meq/L 136-145 L (test code = 381) POTASSIUM (BEAKER) 3.9 meq/L 3.5-5.1 (test code = 379) CHLORIDE (BEAKER) 99 meq/L 98-107 (test code = 382) CO2 (BEAKER) (test 27 meq/L 22-29 code = 355) BLOOD UREA 26 mg/dL 7-21 H NITROGEN (BEAKER) (test code = 354) CREATININE 0.68 mg/dL 0.57-1.25 (BEAKER) (test code = 358) GLUCOSE RANDOM 131 mg/dL 70-105 H (BEAKER) (test code = 652) CALCIUM (BEAKER) 9.4 mg/dL 8.4-10.2 (test code = 697) AST (SGOT) 23 U/L 5-34 (BEAKER) (test code = 353) ALT (SGPT) 24 U/L 6-55 (BEAKER) (test code = 347) EGFR (BEAKER) 97 Interpretatio n of eGFR (test code = 1092) mL/min/1.[address] age Description sq m Result G1 Edel l or high >=90 G2 Mildly decreased 60-89 G3a Mildl y to moderately 45-5 9 G3b Moderately to s everely 30-44 G4 Severl y decreased 15-29 G5 Kidney failure <15Reported eGF R is based on the CKD-EPI 2020 equation that d oes not use a race coefficientEsti mated GFR is not as accur ate as Creatinine Ama geoffrey in predicting glom erular filtration rate . Estimated GFR is not appl icable for dialysis patien ts Laboratory Assistant ID - KARMEN [id number] 06:49:09 Test Item Value Reference Range Interpretation Comments MAGNESIUM (BEAKER) (test code = 1.7 mg/dL 1.6-2.6 627) Laboratory Assistant ID - KARMEN LCBC W/PLT COUNT & AUTO [id number] 06:07:09 Test Item Value Reference Range Interpretation Comments WHITE BLOOD CELL COUNT (BEAKER) 6.7 K/ L 3.5-10.5 (test code = 775) RED BLOOD CELL COUNT (BEAKER) 3.25 M/ L 3.93-5.22 L (test code = 761) HEMOGLOBIN (BEAKER) (test code = 8.8 GM/DL 11.2-15.7 L 410) HEMATOCRIT (BEAKER) (test code = 28.4 % 34.1-44.9 L 411) MEAN CORPUSCULAR VOLUME (BEAKER) 87.4 fL 79.4-94.8 (test code = 753) MEAN CORPUSCULAR HEMOGLOBIN 27.1 pg 25.6-32.2 (BEAKER) (test code = 751) MEAN CORPUSCULAR HEMOGLOBIN CONC 31.0 GM/DL 32.2-35.5 L (BEAKER) (test code = 752) RED CELL DISTRIBUTION WIDTH 15.5 % 11.7-14.4 H (BEAKER) (test code = 412) PLATELET COUNT (BEAKER) (test 417 K/CU MM 150-450 code = 756) MEAN PLATELET VOLUME (BEAKER) 9.9 fL 9.4-12.3 (test code = 754) NUCLEATED RED BLOOD CELLS 0 /100 WBC 0-0 (BEAKER) (test code = 413) NEUTROPHILS RELATIVE PERCENT 68 % (BEAKER) (test code = 429) LYMPHOCYTES RELATIVE PERCENT 19 % (BEAKER) (test code = 430) MONOCYTES RELATIVE PERCENT 10 % (BEAKER) (test code = 431) EOSINOPHILS RELATIVE PERCENT 2 % (BEAKER) (test code = 432) BASOPHILS RELATIVE PERCENT 0 % (BEAKER) (test code = 437) NEUTROPHILS ABSOLUTE COUNT 4.56 K/ L 1.56-6.13 (BEAKER) (test code = 670) LYMPHOCYTES ABSOLUTE COUNT 1.26 K/ L 1.18-3.74 (BEAKER) (test code = 414) MONOCYTES ABSOLUTE COUNT (BEAKER) 0.64 K/ L 0.24-0.36 H (test code = 415) EOSINOPHILS ABSOLUTE COUNT 0.15 K/ L 0.04-0.36 (BEAKER) (test code = 416) BASOPHILS ABSOLUTE COUNT (BEAKER) 0.02 K/ L 0.01-0.08 (test code = 417) IMMATURE GRANULOCYTES-RELATIVE 1 % 0-1 PERCENT (BEAKER) (test code = 2801) POCT-GLUCOSE [id number] 02:07:41 Test Item Value Reference Range Interpretation Comments POC-GLUCOSE METER 117 mg/dL 70-110 H : TESTED A T [facility] 6720 (BEAKER) (test code = [facility], 1538) [id number]: Laboratory Assistant/Techni benjamin ID = [id number] for Ri Vidal carballo POCT-GLUCOSE [id number] 12:33:39 Test Item Value Reference Range Interpretation Comments POC-GLUCOSE METER 135 mg/dL 70-110 H : TESTED A T [facility] 6720 (BEAKER) (test code = [facility], 1538) [id number]: Laboratory Assistant/Techni benjamin ID = [id number] for Compa-LANDAVERD E, PENNY [id number] 12:21:53 Test Item Value Reference Range Interpretation Comments PHOSPHORUS (BEAKER) (test code = 3.1 mg/dL 2.3-4.7 604) Laboratory Assistant ID - KARMEN LCOMPREHENSIVE METABOLIC [id number] 06:54:52 Test Item Value Reference Range Interpretation Comments TOTAL PROTEIN 6.4 gm/dL 6.0-8.3 (BEAKER) (test code = 770) ALBUMIN (BEAKER) 2.9 g/dL 3.5-5.0 L (test code = 1145) ALKALINE 135 U/L 40-150 PHOSPHATASE (BEAKER) (test code = 346) BILIRUBIN TOTAL 0.4 mg/dL 0.2-1.2 (BEAKER) (test code = 377) SODIUM (BEAKER) 136 meq/L 136-145 (test code = 381) POTASSIUM (BEAKER) 3.3 meq/L 3.5-5.1 L (test code = 379) CHLORIDE (BEAKER) 98 meq/L 98-107 (test code = 382) CO2 (BEAKER) (test 30 meq/L 22-29 H code = 355) BLOOD UREA 28 mg/dL 7-21 H NITROGEN (BEAKER) (test code = 354) CREATININE 0.66 mg/dL 0.57-1.25 (BEAKER) (test code = 358) GLUCOSE RANDOM 134 mg/dL 70-105 H (BEAKER) (test code = 652) CALCIUM (BEAKER) 9.6 mg/dL 8.4-10.2 (test code = 697) AST (SGOT) 13 U/L 5-34 (BEAKER) (test code = 353) ALT (SGPT) 25 U/L 6-55 (BEAKER) (test code = 347) EGFR (BEAKER) 97 Interpretatio n of eGFR (test code = 1092) mL/min/1.[address] age Description sq m Result G1 Edel l or high >=90 G2 Mildly decreased 60-89 G3a Mildl y to moderately 45-5 9 G3b Moderately to s everely 30-44 G4 Severl y decreased 15-29 G5 Kidney failure <15Reported eGF R is based on the CKD-EPI 2021 equation that d oes not use a race coefficientEsti mated GFR is not as accur ate as Creatinine Ama hale in predicting glom erular filtration rate . Estimated GFR is not appl icable for dialysis patien ts Laboratory Assistant ID - [id number] 06:54:52 Test Item Value Reference Range Interpretation Comments MAGNESIUM (BEAKER) (test code = 1.8 mg/dL 1.6-2.6 627) Laboratory Assistant ID - [id number] 06:10:17 Test Item Value Reference Range Interpretation Comments MAGNESIUM (BEAKER) 2.4 mg/dL 1.6-2.6 Specimen slightly (test code = 627) hemolyzed- Epic auto-released r esult from contaminar jennifer specimen-see re sult from redraw.This is a corrected resul t. Previous result was 2.4 mg/dL on 022 at 0501 CDT Laboratory Assistant ID - PIAYA LCBC W/PLT COUNT & AUTO [id number] 04:58:23 Test Item Value Reference Range Interpretation Comments WHITE BLOOD CELL COUNT (BEAKER) 8.0 K/ L 3.5-10.5 (test code = 775) RED BLOOD CELL COUNT (BEAKER) 3.00 M/ L 3.93-5.22 L (test code = 761) HEMOGLOBIN (BEAKER) (test code = 8.0 GM/DL 11.2-15.7 L 410) HEMATOCRIT (BEAKER) (test code = 26.6 % 34.1-44.9 L 411) MEAN CORPUSCULAR VOLUME (BEAKER) 88.7 fL 79.4-94.8 (test code = 753) MEAN CORPUSCULAR HEMOGLOBIN 26.7 pg 25.6-32.2 (BEAKER) (test code = 751) MEAN CORPUSCULAR HEMOGLOBIN CONC 30.1 GM/DL 32.2-35.5 L (BEAKER) (test code = 752) RED CELL DISTRIBUTION WIDTH 15.1 % 11.7-14.4 H (BEAKER) (test code = 412) PLATELET COUNT (BEAKER) (test 383 K/CU MM 150-450 code = 756) MEAN PLATELET VOLUME (BEAKER) 10.1 fL 9.4-12.3 (test code = 754) NUCLEATED RED BLOOD CELLS 0 /100 WBC 0-0 (BEAKER) (test code = 413) NEUTROPHILS RELATIVE PERCENT 71 % (BEAKER) (test code = 429) LYMPHOCYTES RELATIVE PERCENT 19 % (BEAKER) (test code = 430) MONOCYTES RELATIVE PERCENT 10 % (BEAKER) (test code = 431) EOSINOPHILS RELATIVE PERCENT 1 % (BEAKER) (test code = 432) BASOPHILS RELATIVE PERCENT 0 % (BEAKER) (test code = 437) NEUTROPHILS ABSOLUTE COUNT 5.66 K/ L 1.56-6.13 (BEAKER) (test code = 670) LYMPHOCYTES ABSOLUTE COUNT 1.49 K/ L 1.18-3.74 (BEAKER) (test code = 414) MONOCYTES ABSOLUTE COUNT (BEAKER) 0.76 K/ L 0.24-0.36 H (test code = 415) EOSINOPHILS ABSOLUTE COUNT 0.04 K/ L 0.04-0.36 (BEAKER) (test code = 416) BASOPHILS ABSOLUTE COUNT (BEAKER) 0.00 K/ L 0.01-0.08 L (test code = 417) IMMATURE GRANULOCYTES-RELATIVE 1 % 0-1 PERCENT (BEAKER) (test code = 2801) B-TYPE NATRIURETIC FACTOR (BNP)2021-10-07 04:57:21 Test Item Value Reference Range Interpretation Comments B-TYPE NATRIURETIC PEPTIDE (BEAKER) 95 pg/mL 0-100 (test code = 700) Laboratory Assistant ID - PIAYA LPOCT-GLUCOSE [id number] 00:31:49 Test Item Value Reference Range Interpretation Comments POC-GLUCOSE METER 160 mg/dL 70-110 H : TESTED A T [facility] 6720 (BEAKER) (test code = MIHAELA Garcia [facility], 1538) [address]: Laboratory Assistant/Techni benjamin ID = [id number] for ALEJANDRO CALIXTO POCT-GLUCOSE [id number] 13:26:50 Test Item Value Reference Range Interpretation Comments POC-GLUCOSE METER 157 mg/dL 70-110 H : TESTED A T [facility] 6720 (BEAKER) (test code [facility], = 1538) 301[address]: Laboratory Assistant/Techni benjamin ID = [id number] for ROBER Rivas COMPREHENSIVE METABOLIC [id number] 05:46:42 Test Item Value Reference Range Interpretation Comments TOTAL PROTEIN 6.4 gm/dL 6.0-8.3 (BEAKER) (test code = 770) ALBUMIN (BEAKER) 3.0 g/dL 3.5-5.0 L (test code = 1145) ALKALINE 140 U/L 40-150 PHOSPHATASE (BEAKER) (test code = 346) BILIRUBIN TOTAL 0.3 mg/dL 0.2-1.2 (BEAKER) (test code = 377) SODIUM (BEAKER) 137 meq/L 136-145 (test code = 381) POTASSIUM (BEAKER) 4.0 meq/L 3.5-5.1 (test code = 379) CHLORIDE (BEAKER) 103 meq/L 98-107 (test code = 382) CO2 (BEAKER) (test 26 meq/L 22-29 code = 355) BLOOD UREA 21 mg/dL 7-21 NITROGEN (BEAKER) (test code = 354) CREATININE 0.58 mg/dL 0.57-1.25 (BEAKER) (test code = 358) GLUCOSE RANDOM 163 mg/dL 70-105 H (BEAKER) (test code = 652) CALCIUM (BEAKER) 9.9 mg/dL 8.4-10.2 (test code = 697) AST (SGOT) 17 U/L 5-34 (BEAKER) (test code = 353) ALT (SGPT) 29 U/L 6-55 (BEAKER) (test code = 347) EGFR (BEAKER) 100 Interpretatio n of eGFR (test code = 1092) mL/min/1.[address] age Description sq m Result G1 Edel l or high >=90 G2 Mildly decreased 60-89 G3a Mildl y to moderately 45-5 9 G3b Moderately to s everely 30-44 G4 Severl y decreased 15-29 G5 Kidney failure <15Reported eGF R is based on the CKD-EPI 2020 equation that d oes not use a race coefficientEsti mated GFR is not as accur ate as Creatinine Ama hale in predicting glom erular filtration rate . Estimated GFR is not appl icable for dialysis patien ts Laboratory Assistant ID - KARMEN [id number] 05:46:42 Test Item Value Reference Range Interpretation Comments MAGNESIUM (BEAKER) (test code = 1.9 mg/dL 1.6-2.6 627) Laboratory Assistant ID - KARMEN LCBC W/PLT COUNT & AUTO [id number] 05:17:43 Test Item Value Reference Range Interpretation Comments WHITE BLOOD CELL COUNT (BEAKER) 8.9 K/ L 3.5-10.5 (test code = 775) RED BLOOD CELL COUNT (BEAKER) 3.01 M/ L 3.93-5.22 L (test code = 761) HEMOGLOBIN (BEAKER) (test code = 8.0 GM/DL 11.2-15.7 L 410) HEMATOCRIT (BEAKER) (test code = 25.4 % 34.1-44.9 L 411) MEAN CORPUSCULAR VOLUME (BEAKER) 84.4 fL 79.4-94.8 (test code = 753) MEAN CORPUSCULAR HEMOGLOBIN 26.6 pg 25.6-32.2 (BEAKER) (test code = 751) MEAN CORPUSCULAR HEMOGLOBIN CONC 31.5 GM/DL 32.2-35.5 L (BEAKER) (test code = 752) RED CELL DISTRIBUTION WIDTH 14.9 % 11.7-14.4 H (BEAKER) (test code = 412) PLATELET COUNT (BEAKER) (test 309 K/CU MM 150-450 code = 756) MEAN PLATELET VOLUME (BEAKER) 10.1 fL 9.4-12.3 (test code = 754) NUCLEATED RED BLOOD CELLS 0 /100 WBC 0-0 (BEAKER) (test code = 413) NEUTROPHILS RELATIVE PERCENT 85 % (BEAKER) (test code = 429) LYMPHOCYTES RELATIVE PERCENT 8 % (BEAKER) (test code = 430) MONOCYTES RELATIVE PERCENT 7 % (BEAKER) (test code = 431) EOSINOPHILS RELATIVE PERCENT 0 % (BEAKER) (test code = 432) BASOPHILS RELATIVE PERCENT 0 % (BEAKER) (test code = 437) NEUTROPHILS ABSOLUTE COUNT 7.52 K/ L 1.56-6.13 H (BEAKER) (test code = 670) LYMPHOCYTES ABSOLUTE COUNT 0.75 K/ L 1.18-3.74 L (BEAKER) (test code = 414) MONOCYTES ABSOLUTE COUNT (BEAKER) 0.59 K/ L 0.24-0.36 H (test code = 415) EOSINOPHILS ABSOLUTE COUNT 0.00 K/ L 0.04-0.36 L (BEAKER) (test code = 416) BASOPHILS ABSOLUTE COUNT (BEAKER) 0.01 K/ L 0.01-0.08 (test code = 417) IMMATURE GRANULOCYTES-RELATIVE 0 % 0-1 PERCENT (BEAKER) (test code = 2801) POCT-GLUCOSE [id number] 17:28:18 Test Item Value Reference Range Interpretation Comments POC-GLUCOSE METER 164 mg/dL 70-110 H : TESTED A T [facility] (BEAKER) ([facility] = 1538[facility] 359[address]: Laboratory Assistant/Techni benjamin ID = [id number] for ROBER Rivas [facility] COMPREHENSIVE METABOLIC [id number] 10:10:42 Test Item Value Reference Range Interpretation Comments TOTAL PROTEIN 6.2 gm/dL 6.0-8.3 (BEAKER) (test code = 770) ALBUMIN (BEAKER) 2.9 g/dL 3.5-5.0 L (test code = 1145) ALKALINE 164 U/L 40-150 H PHOSPHATASE (BEAKER) (test code = 346) BILIRUBIN TOTAL 0.6 mg/dL 0.2-1.2 (BEAKER) (test code = 377) SODIUM (BEAKER) 137 meq/L 136-145 (test code = 381) POTASSIUM (BEAKER) 3.8 meq/L 3.5-5.1 (test code = 379) CHLORIDE (BEAKER) 103 meq/L 98-107 (test code = 382) CO2 (BEAKER) (test 25 meq/L 22-29 code = 355) BLOOD UREA 15 mg/dL 7-21 NITROGEN (BEAKER) (test code = 354) CREATININE 0.56 mg/dL 0.57-1.25 L (BEAKER) (test code = 358) GLUCOSE RANDOM 114 mg/dL 70-105 H (BEAKER) (test code = 652) CALCIUM (BEAKER) 9.8 mg/dL 8.4-10.2 (test code = 697) AST (SGOT) 21 U/L 5-34 (BEAKER) (test code = 353) ALT (SGPT) 33 U/L 6-55 (BEAKER) (test code = 347) EGFR (BEAKER) 101 Interpretatio n of eGFR (test code = 1092) mL/min/1.[address] age Description sq m Result G1 Edel l or high >=90 G2 Mildly decreased 60-89 G3a Mildl y to moderately 45-5 9 G3b Moderately to s everely 30-44 G4 Severl y decreased 15-29 G5 Kidney failure <15Reported eGF R is based on the CKD-EPI 2021 equation that d oes not use a race coefficientEsti mated GFR is not as accur ate as Creatinine Ama geoffrey in predicting glom erular filtration rate . Estimated GFR is not appl icable for dialysis patien ts Laboratory Assistant ID - [id number] 07:35:12 Test Item Value Reference Range Interpretation Comments MAGNESIUM (BEAKER) (test code = 2.5 mg/dL 1.6-2.6 627) Laboratory Assistant ID - DEANNA MC-REACTIVE [id number] 07:35:12 Test Item Value Reference Range Interpretation Comments C-REACTIVE PROTEIN (BEAKER) (test 23.96 mg/dL 0.00-0.50 H code = 676) Laboratory Assistant ID - DEANNA MCBC W/PLT COUNT & AUTO [id number] 07:27:41 Test Item Value Reference Range Interpretation Comments WHITE BLOOD CELL COUNT (BEAKER) 11.5 K/ L 3.5-10.5 H (test code = 775) RED BLOOD CELL COUNT (BEAKER) 2.81 M/ L 3.93-5.22 L (test code = 761) HEMOGLOBIN (BEAKER) (test code = 7.7 GM/DL 11.2-15.7 L 410) HEMATOCRIT (BEAKER) (test code = 24.2 % 34.1-44.9 L 411) MEAN CORPUSCULAR VOLUME (BEAKER) 86.1 fL 79.4-94.8 (test code = 753) MEAN CORPUSCULAR HEMOGLOBIN 27.4 pg 25.6-32.2 (BEAKER) (test code = 751) MEAN CORPUSCULAR HEMOGLOBIN CONC 31.8 GM/DL 32.2-35.5 L (BEAKER) (test code = 752) RED CELL DISTRIBUTION WIDTH 14.9 % 11.7-14.4 H (BEAKER) (test code = 412) PLATELET COUNT (BEAKER) (test 273 K/CU MM 150-450 code = 756) MEAN PLATELET VOLUME (BEAKER) 10.3 fL 9.4-12.3 (test code = 754) NUCLEATED RED BLOOD CELLS 0 /100 WBC 0-0 (BEAKER) (test code = 413) NEUTROPHILS RELATIVE PERCENT 83 % (BEAKER) (test code = 429) LYMPHOCYTES RELATIVE PERCENT 9 % (BEAKER) (test code = 430) MONOCYTES RELATIVE PERCENT 8 % (BEAKER) (test code = 431) EOSINOPHILS RELATIVE PERCENT 0 % (BEAKER) (test code = 432) BASOPHILS RELATIVE PERCENT 0 % (BEAKER) (test code = 437) NEUTROPHILS ABSOLUTE COUNT 9.53 K/ L 1.56-6.13 H (BEAKER) (test code = 670) LYMPHOCYTES ABSOLUTE COUNT 0.98 K/ L 1.18-3.74 L (BEAKER) (test code = 414) MONOCYTES ABSOLUTE COUNT (BEAKER) 0.92 K/ L 0.24-0.36 H (test code = 415) EOSINOPHILS ABSOLUTE COUNT 0.00 K/ L 0.04-0.36 L (BEAKER) (test code = 416) BASOPHILS ABSOLUTE COUNT (BEAKER) 0.01 K/ L 0.01-0.08 (test code = 417) IMMATURE GRANULOCYTES-RELATIVE 0 % 0-1 PERCENT (BEAKER) (test code = 2801) POCT-GLUCOSE [id number] 06:46:47 Test Item Value Reference Range Interpretation Comments POC-GLUCOSE METER 142 mg/dL 70-110 H : TESTED A T [facility] (BEAKER) (test code = [place]HAELA [place], 1538) [address]: Laboratory Assistant/Techni benjamin ID = [id number] for DEQUAN HENDERSNO CT, CHEST WITH IV CONTRAST- PE TEST [id number] 03:33:00Unlisted Reason for Exam - Click Yes and Enter Reason Below->YesUnlisted Reason for Exam->covid, worsening hypoxia, pls also evaluate the lung parenchyma [facility]: KINDRA NOVOA : 1955 Sex: FFINAL REPORT CT PULMONARY ANGIOGRAM History: Pulmonary embolism suspected. COVID pneumonia and worsening hypoxia. Comparison: No prior CT studies available for comparison. Technique: Images were obtained through the chest following the administration of contrast. Coronal and sagittalMIP reformats are provided. Post marginal radiation reduction technique was used. Findings: There isno pulmonary embolism. There is cardiomegaly and no pathologic-appearing mediastinal or hilar lymph nodes. Small bilateral pleural effusions and atelectasis. There are a few scattered groundglass opacities. No dense consolidation or pneumothorax. RIGHT PICC with the tip in the superior vena cava/atrial junction. Impression: Mild bilateral groundglass opacities compatible with history of COVID pneumonia. There are also small effusions and atelectasis. Signed: Tyree Edwards MDReport Verified Date/Time: 10/05/2021 03:33:15 POCT-GLUCOSE [id number] 01:24:41 Test Item Value Reference Range Interpretation Comments POC-GLUCOSE METER 170 mg/dL 70-110 H : TESTED A T [facility] (BEAKER) (test code = [place], 1538) 15[address]: Laboratory Assistant/Techni benjamin ID = [id number] for DEQUAN HENDERSON [id number] 18:45:20 Test Item Value Reference Range Interpretation Comments PROCALCITONIN (BEAKER) (test code 0.52 ng/mL <0.05 H = 3036) SEPSIS RISK (ng/mL)Low: 0.05-0.50Intermediate: 0.51-2.00High: >=2.012D Echo W/Doppler(CW/PW/Color)2021-10-04 18:13:47Ejection FractionSLEH ECHO [facility]ART[facility], NON [id number] 13:16:00Reason for exam:->hypoxia, covidShould this be performed at the bedside?->YesAD[facility] TULAREName: KINDRA NOVOA : 1955 Sex: FFINAL REPORT RAD, CHEST, 1 VIEW, NON DEPT INDICATION: hypoxia, covid COMPARISON: Prior day's exam TECHNIQUE: Portable frontal view of the chest. FINDINGS: Support Lines and Devices: Stable. Lungs and pleura: Bilateral airspace and interstitial opacities, worsened compared to prior exam, which may represent atelectasis, pneumonia or pulmonary edema. No pneumothorax identified. Heartand mediastinum: Stable contours. Stable surgical changes. Additional findings: None. IMPRESSION: Bilateral airspace and interstitial opacities, worsened compared to prior exam, which may represent atelectasis, pneumonia or pulmonary edema. Signed: Anita Romero Verified Date/Time: 10/04/2021 13:16:46 Reading Location: [facility] Radiology Reading Room POCT-GLUCOSE METER 2021-10-04 12:40:47 Test Item Value Reference Range Interpretation Comments POC-GLUCOSE METER 145 mg/dL 70-110 H : [facility]ED [facility] (BEAKER) (test code [facility], = 1538) [id number]: Laboratory Assistant/Techni benjamin ID = [id number] for ROBER Rivas DEZ BLOOD GAS, [id number] 12:14:46 Test Item Value Reference Range Interpretation Comments PH ARTERIAL (BEAKER) (test code = 7.42 7.35-7.45 383) PCO2 ARTERIAL (BEAKER) (test code 40 mm Hg 35-45 = 384) PO2 ARTERIAL (BEAKER) (test code = 59 mm Hg 80-90 L 385) O2 SATURATION ARTERIAL (BEAKER) 90.6 % 96.0-97.0 L (test code = 386) HCO3 ARTERIAL (BEAKER) (test code 25 mmol/L 21-29 = 388) BASE EXCESS ARTERIAL (BEAKER) 0.5 mmol/L -2.0-3.0 (test code = 387) PATIENT TEMPERATURE (BEAKER) (test 37.3 code = 1818) FIO2 (BEAKER) (test code = 1819) 21.0 B-TYPE NATRIURETIC FACTOR (BNP)2021-10-04 09:56:43 Test Item Value Reference Range Interpretation Comments B-TYPE NATRIURETIC PEPTIDE (BEAKER) 196 pg/mL 0-100 H (test code = 700) Laboratory Assistant ID - DEANNA MHEMOGLOBIN [id number] 09:04:48 Test Item Value Reference Range Interpretation Comments HEMOGLOBIN A1C 5.5 % See_Comment [Automated m essage] ELECTROPHORESIS (BEAKER) The system which (test code = 3811) generated this result transmitted ref erence range: <=5.6%. The reference range was not used to int erpret this result as normal/abnormal . "The A1c is measured using a NGS-certified method. HbA1c value equal to or greater than 6.5% as thediagnosis cutoff for diabetes. An HbA1c value of 5.7- 6.4% indicates increased risk for diabetes (prediabetes)."Laboratory Assistant ID - ADMPOCT- GLUCOSE [id number] 08:27:45 Test Item Value Reference Range Interpretation Comments POC-GLUCOSE METER 135 mg/dL 70-110 H : TESTED A [facility] 6720 (BEAKER) (test code [facility], = 1538) 36513: Laboratory Assistant/Techni benjamin ID = [id number] for ROBER iRvas COMPREHENSIVE METABOLIC [id number] 04:02:00 Test Item Value Reference Range Interpretation Comments TOTAL PROTEIN 6.2 gm/dL 6.0-8.3 (BEAKER) (test code = 770) ALBUMIN (BEAKER) 3.0 g/dL 3.5-5.0 L (test code = 1145) ALKALINE 167 U/L 40-150 H PHOSPHATASE (BEAKER) (test code = 346) BILIRUBIN TOTAL 1.0 mg/dL 0.2-1.2 (BEAKER) (test code = 377) SODIUM (BEAKER) 136 meq/L 136-145 (test code = 381) POTASSIUM (BEAKER) 4.1 meq/L 3.5-5.1 (test code = 379) CHLORIDE (BEAKER) 106 meq/L 98-107 (test code = 382) CO2 (BEAKER) (test 23 meq/L 22-29 code = 355) BLOOD UREA 14 mg/dL 7-21 NITROGEN (BEAKER) (test code = 354) CREATININE 0.56 mg/dL 0.57-1.25 L (BEAKER) (test code = 358) GLUCOSE RANDOM 116 mg/dL 70-105 H (BEAKER) (test code = 652) CALCIUM (BEAKER) 9.2 mg/dL 8.4-10.2 (test code = 697) AST (SGOT) 20 U/L 5-34 (BEAKER) (test code = 353) ALT (SGPT) 42 U/L 6-55 (BEAKER) (test code = 347) EGFR (BEAKER) 101 Interpretatio n of eGFR (test code = 1092) mL/min/1.[address] age Description sq m Result G1 Edel l or high >=90 G2 Mildly decreased 60-89 G3a Mildl y to moderately 45-5 9 G3b Moderately to s everely 30-44 G4 Severl y decreased 15-29 G5 Kidney failure <15Reported eGF R is based on the CKD-EPI 2020 equation that d oes not use a race coefficientEsti mated GFR is not as accur ate as Creatinine Ama hale in predicting glom erular filtration rate . Estimated GFR is not appl icable for dialysis patien ts Laboratory Assistant ID - DEANNA [id number] 04:02:00 Test Item Value Reference Range Interpretation Comments MAGNESIUM (BEAKER) (test code = 1.7 mg/dL 1.6-2.6 627) Laboratory Assistant ID - DEANNA [id number] 04:02:00 Test Item Value Reference Range Interpretation Comments TRIGLYCERIDES (BEAKER) (test code = 110 mg/dL 540) TRIGLYCERIDE REFERENCE RANGELow Risk <150Borderline Risk 150-199High Risk 200-499Very High Risk >=500Operator ID - DEANNA MCBC W/PLT COUNT & AUTO [id number] 03:34:22 Test Item Value Reference Range Interpretation Comments WHITE BLOOD CELL COUNT (BEAKER) 13.0 K/ L 3.5-10.5 H (test code = 775) RED BLOOD CELL COUNT (BEAKER) 3.20 M/ L 3.93-5.22 L (test code = 761) HEMOGLOBIN (BEAKER) (test code = 8.5 GM/DL 11.2-15.7 L 410) HEMATOCRIT (BEAKER) (test code = 27.5 % 34.1-44.9 L 411) MEAN CORPUSCULAR VOLUME (BEAKER) 85.9 fL 79.4-94.8 (test code = 753) MEAN CORPUSCULAR HEMOGLOBIN 26.6 pg 25.6-32.2 (BEAKER) (test code = 751) MEAN CORPUSCULAR HEMOGLOBIN CONC 30.9 GM/DL 32.2-35.5 L (BEAKER) (test code = 752) RED CELL DISTRIBUTION WIDTH 14.7 % 11.7-14.4 H (BEAKER) (test code = 412) PLATELET COUNT (BEAKER) (test 253 K/CU MM 150-450 code = 756) MEAN PLATELET VOLUME (BEAKER) 9.5 fL 9.4-12.3 (test code = 754) NUCLEATED RED BLOOD CELLS 0 /100 WBC 0-0 (BEAKER) (test code = 413) NEUTROPHILS RELATIVE PERCENT 78 % (BEAKER) (test code = 429) LYMPHOCYTES RELATIVE PERCENT 10 % (BEAKER) (test code = 430) MONOCYTES RELATIVE PERCENT 11 % (BEAKER) (test code = 431) EOSINOPHILS RELATIVE PERCENT 0 % (BEAKER) (test code = 432) BASOPHILS RELATIVE PERCENT 0 % (BEAKER) (test code = 437) NEUTROPHILS ABSOLUTE COUNT 10.17 K/ L 1.56-6.13 H (BEAKER) (test code = 670) LYMPHOCYTES ABSOLUTE COUNT 1.25 K/ L 1.18-3.74 (BEAKER) (test code = 414) MONOCYTES ABSOLUTE COUNT (BEAKER) 1.47 K/ L 0.24-0.36 H (test code = 415) EOSINOPHILS ABSOLUTE COUNT 0.00 K/ L 0.04-0.36 L (BEAKER) (test code = 416) BASOPHILS ABSOLUTE COUNT (BEAKER) 0.01 K/ L 0.01-0.08 (test code = 417) IMMATURE GRANULOCYTES-RELATIVE 1 % 0-1 PERCENT (BEAKER) (test code = 2801) POCT-GLUCOSE [id number] 22:24:15 Test Item Value Reference Range Interpretation Comments POC-GLUCOSE METER 112 mg/dL 70-110 H : [facility]ED [facility] (BEAKER) (test code = MIHAELA PRECIADO, 1538) [address]: Laboratory Assistant/Techni benjamin ID = [id number] for [place] LLIAMS, ALEJANDRO C-REACTIVE [id number] 15:57:28 Test Item Value Reference Range Interpretation Comments C-REACTIVE PROTEIN (SCOOTER) (test 21.81 mg/dL 0.00-0.50 H code = 676) Laboratory Assistant ID - PIAYA LRAD, CHEST, 1 VIEW, NON [id number] 11:13:00Reason for exam:->PICC tip location after attempted repositioning.Should this be performed at thebedside?->Yes [facility] : 1955 Sex: FFINAL REPORT RAD, CHEST, 1 VIEW, NON DEPT INDICATION: PICC tip location after attempted repositioning. COMPARISON: Prior day's exam TECHNIQUE: Portable frontal view of the chest. FINDINGS: Support Lines and Devices: Right PICC tip overlies the superior vena cava. Lungs and pleura: Unchanged airspace and pleural opacities. No pneumothorax identified. Heart and mediastinum: Stable contours. Stable surgical changes. Additional findings: None. IMPRESSION: 1.Right PICC tip overlies the superior vena cava.2.Hazy airspace opacities in the lower lungs bilaterally, which may represent atelectasis, pneumonia, or pulmonary edema. Signed: Anita Romeroort Verified Date/Time: 10/03/2021 11:13:07 Reading Location: [facility] Radiology Reading Room RAD, CHEST, 1 VIEW, NON [id number] 22:03:00Reason for exam:->ABDOMINAL PAINShould this be performed at the bedside?->Yes [facility] : 1955 Sex: FFINAL REPORT History: ABDOMINAL PAIN. Comparison: 08/13/2021 Findings: A single view of the chest is submitted. The examination is limited by low lung volumes and patient body habitus.The cardiac silhouette is within normal limits for size. There is atherosclerotic calcification of the tortuous aorta. Central vascular engorgement and perihilar interstitial coarsening may be exaggerated by low lung volumes or reflect mild vascular congestion/interstitial edema. There is no focal consolidation, pneumothorax, large pleural effusion or acute bony abnormality. A right PICC line tip hasbeen deflected and is now malpositioned, overlying the right internal jugular vein. Repositioning isrecommended. Signed: Hipolito Clark MDReport Verified Date/Time: 10/02/2021 22:03:26 Electronically si gned by: HIPOLITO CLARK M.D. on 10/02/2021 10:03 PMSARS-COV2/RT-PCR ([facility])2021-10-02 20:12:17 Test Item Value Reference Range Interpretation Comments SARS-COV2/RT-PCR Positive Negative AA The SARS-Co V-2 target (test code = nucleic acids a re detected ) in this specime n. The presence SARS-C oV-2 nucleic acids cannot ru le out co-infections o r disease caused by other viral or bacterial patho gens. As with any molecular t est, mutations withi n the target regions of the Xpert Xpress SARS-CoV-2 test could affect primer and/or p robe binding resulting in fa ilure to detect the pres ence of virus or the virus be ing detected less predictabl y. False negative result s may occur if virus is pre sent at levels below e analytical limit of detect ion. This SARS CoV-2 test is a rapid, real-time RT-PC R test intended for e qualitative detection of nu cleic acid from SARS-CoV-2 in a nasopharyngeal swab specimen collected from individuals suspected of CO VID-[facility]. Results from e Xpert Xpress SARS-CoV -2 test should be corre lated with the clinical hi story, epidemiological data, and other data avai lable to the clinician evalu ating the patient. Viral nucleic acid may persist in vivo, independent of virus viability. Dete ction of analyte target( s) does not imply that the corresponding virus(es) are i nfectious or are the causati ve agents for clinical sympto ms. This test has been authorized by FDA under an EUA for use by authorized laboratories. This test is only authorized for the duration of the declaration that circumstances exist justifying the authorization of emergency use of in vitro diagnostic tests for detection and/or diagnosis of COVID-19 under Section 564(b)(1) of the Federal Food, Drug and Cosmetic Act, 21 U.S.C. 360bbb-3(b)(1), unless the authorization is terminated or revoked sooner. Fact Sheet for Healthcare Providers: https://www.[employer] m/Documents/Xpert%20Xpress%20SARS%20CoV-2/Fact%20Sheets/3023802%80MOBU-CDX-8%20 HEALTHCARE%20PROVIDERS%20FACT%20SHEET.pdf Fact Sheet for Healthcare Patients: https://www.[employer]/Documents/Xpert%20Xp ress%20SARS%20CoV-2/Fact%20Sheets/3023801%11KMEH-GDW-1%20PATIENT%20FACT%20SHEET .pdfCT, [id number] 18:27:00Unlisted Reason for Exam - Click Yes and Enter Reason Below->Noepigastric pain, hx TPN and Crohn's, multiple SBOIs this for enterography?->NoWill this procedure require oral contrast?->No [facility] : 1955 Sex: FFINAL REPORT ABDOMINAL AND PELVIS CT DATED 10/02/2021 CLINICAL INFORMATION: Abdominal pain, acute, nonlocalized TECHNIQUE: Axial images of the abdomen and pelvis were obtained from diaphragm to the pubic symphysis with intravenous contrast. This exam was performed according to our departmental dose-optimization program, which includes automated exposure control, adjustment of the mA and/or kV according to patient size and/or use of interactive reconstruction technique. COMMENT: Liver and spleen are enlarged. Liver measures 19.9 cm in the right midclavicular line. Spleen measures 12.6 x 4.8 x 12.4 cm. The splenic, superior mesenteric, portal, and hepatic veins are patent. Main portal vein measures 1.4 cm in diameter. Gallbladder is contracted. No gallstone or biliary dilatation isnoted. Pancreas and adrenals are unremarkable. Both kidneys are normal in size and functioning. No hydronephrosis, hydroureter, urolithiasis is seen. A 1.8 cm cyst is seen in the midpole right kidney. A 9 mm hypodensity lesion is seen in the midpole left kidney compatible with previous noted angiomyolipoma. The small and large bowel are suboptimally evaluated secondary to lack of GI contrast. There is tethering of distal small bowel in the right lower quadrant abdomen. Focal small bowel dilatation is seen in the mid pelvis measuring up to 3.2 cm in size. Previously noted distal small bowel wall thickening has resolved. Diverticular disease is seen in the large bowel without diverticulitis. Appendix is not visualized. Uterus is normal in size. Both ovaries are unremarkable. The urinary bladder is contracted. No mass, adenopathy or ascites is present. IMPRESSION: 1. Hepatosplenomegaly.2. 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 Tethering of the distal small bowel in the right lower quadrant abdomen with focal small bowel dilatation may represent small bowel obstruction. Signed: Stefani Graceeport Verified Date/Time: 10/02/2021 18:27:20 Reading Location: [facility] C013Y CT Body Reading Ro om HIGH SENSITIVITY TROPONIN [id number] 16:40:32 Test Item Value Reference Range Interpretation Comments HIGH SENSITIVITY < pg/ml See_Comment [Automated message] TROPONIN I (test code = The system which [id number]) generated this result transmitted ref erence range: <=17. Th e reference range was not used to interpr et this result as normal/abnormal . Laboratory Assistant ID - ADMINThe CIVIL ENGINEERING SPECIALIST STAT High Sensitivity Troponin-I results should be used in conjunction with other diagnostic information such as ECG, clinical observations and information, and patientsymptoms to aid in the diagnosis of [facility]. COMPREHENSIVE METABOLIC [id number] 16:33:34 Test Item Value Reference Range Interpretation Comments TOTAL PROTEIN 6.4 gm/dL 6.0-8.3 (BEAKER) (test code = 770) ALBUMIN (BEAKER) 3.2 g/dL 3.5-5.0 L (test code = 1145) ALKALINE 197 U/L 40-150 H PHOSPHATASE (BEAKER) (test code = 346) BILIRUBIN TOTAL 0.7 mg/dL 0.2-1.2 (BEAKER) (test code = 377) SODIUM (BEAKER) 132 meq/L 136-145 L (test code = 381) POTASSIUM (BEAKER) 4.2 meq/L 3.5-5.1 (test code = 379) CHLORIDE (BEAKER) 104 meq/L 98-107 (test code = 382) CO2 (BEAKER) (test 22 meq/L 22-29 code = 355) BLOOD UREA 22 mg/dL 7-21 H NITROGEN (BEAKER) (test code = 354) CREATININE 0.71 mg/dL 0.57-1.25 (BEAKER) (test code = 358) GLUCOSE RANDOM 122 mg/dL 70-105 H (BEAKER) (test code = 652) CALCIUM (BEAKER) 9.0 mg/dL 8.4-10.2 (test code = 697) AST (SGOT) 30 U/L 5-34 (BEAKER) (test code = 353) ALT (SGPT) 64 U/L 6-55 H (BEAKER) (test code = 347) EGFR (BEAKER) 94 Interpretatio n of eGFR (test code = 1092) mL/min/1.73 values S tage Description sq m Result G1 Edel l or high >=90 G2 Mildly decreased 60-89 G3a Mildl y to moderately 45-5 9 G3b Moderately to s everely 30-44 G4 Severl y decreased 15-29 G5 Kidney failure <15Reported eGF R is based on the CKD-EPI 2020 equation that d oes not use a race coefficientEsti mated GFR is not as accur ate as Creatinine Ama geoffrey in predicting glom erular filtration rate . Estimated GFR is not appl icable for dialysis patien ts Laboratory Assistant ID - [id number] 16:33:34 Test Item Value Reference Range Interpretation Comments LIPASE (BEAKER) (test code = 749) 19 U/L 8-78 Laboratory Assistant ID - ADMINLACTIC ACID, [id number] 16:16:10 Test Item Value Reference Range Interpretation Comments LACTATE BLOOD VENOUS (2) (BEAKER) 0.71 mmol/L 0.50-2.20 (test code = 2872) Laboratory Assistant ID - ADMINCBC W/PLT COUNT & AUTO [id number] 16:06:24 Test Item Value Reference Range Interpretation Comments WHITE BLOOD CELL COUNT (BEAKER) 9.0 K/ L 3.5-10.5 (test code = 775) RED BLOOD CELL COUNT (BEAKER) 3.38 M/ L 3.93-5.22 L (test code = 761) HEMOGLOBIN (BEAKER) (test code = 9.1 GM/DL 11.2-15.7 L 410) HEMATOCRIT (BEAKER) (test code = 28.3 % 34.1-44.9 L 411) MEAN CORPUSCULAR VOLUME (BEAKER) 83.7 fL 79.4-94.8 (test code = 753) MEAN CORPUSCULAR HEMOGLOBIN 26.9 pg 25.6-32.2 (BEAKER) (test code = 751) MEAN CORPUSCULAR HEMOGLOBIN CONC 32.2 GM/DL 32.2-35.5 (BEAKER) (test code = 752) RED CELL DISTRIBUTION WIDTH 15.0 % 11.7-14.4 H (BEAKER) (test code = 412) PLATELET COUNT (BEAKER) (test 249 K/CU MM 150-450 code = 756) MEAN PLATELET VOLUME (BEAKER) 9.7 fL 9.4-12.3 (test code = 754) NUCLEATED RED BLOOD CELLS 0 /100 WBC 0-0 (BEAKER) (test code = 413) NEUTROPHILS RELATIVE PERCENT 77 % (BEAKER) (test code = 429) LYMPHOCYTES RELATIVE PERCENT 12 % (BEAKER) (test code = 430) MONOCYTES RELATIVE PERCENT 9 % (BEAKER) (test code = 431) EOSINOPHILS RELATIVE PERCENT 0 % (BEAKER) (test code = 432) BASOPHILS RELATIVE PERCENT 0 % (BEAKER) (test code = 437) NEUTROPHILS ABSOLUTE COUNT 6.97 K/ L 1.56-6.13 H (BEAKER) (test code = 670) LYMPHOCYTES ABSOLUTE COUNT 1.12 K/ L 1.18-3.74 L (BEAKER) (test code = 414) MONOCYTES ABSOLUTE COUNT (BEAKER) 0.84 K/ L 0.24-0.36 H (test code = 415) EOSINOPHILS ABSOLUTE COUNT 0.00 K/ L 0.04-0.36 L (BEAKER) (test code = 416) BASOPHILS ABSOLUTE COUNT (BEAKER) 0.01 K/ L 0.01-0.08 (test code = 417) IMMATURE GRANULOCYTES-RELATIVE 1 % 0-1 PERCENT (BEAKER) (test code = 2801) MR, ENTEROGRAPHY, ABDOMEN / PELVIS, WITHOUT / WITH IV [id number] 16:25:00Unlisted Reason for Exam - Click Yes and Enter Reason Below->No [facility] : 1955 Sex: FFINAL REPORT MR, ENTEROGRAPHY, ABDOMEN / PELVIS, WITHOUT [...] in the right lower quadrant appears mildly thick- walled and hyperemic and narrowed. The tethered portion [...] mild gallbladder wall thickening. No biliary ductal dilationor filling defect. Gallbladder is underdistended.Spleen: Borderline enlarged.Pancreas: [...] gallbladder wall thickening, possibly chronic cholecystitis. Signed: Osmin GuilloryReport Verified Date/Time: 08/15/2021 16:25:49 Reading Location: [address] Body Reading Room BASI METABOLIC [id number] 06:25:19 Test Item Value Reference Range Interpretation Comments SODIUM (BEAKER) 139 meq/L 136-145 (test code = 381) POTASSIUM (BEAKER) 4.0 meq/L 3.5-5.1 (test code = 379) CHLORIDE (BEAKER) 105 meq/L 98-107 (test code = 382) CO2 (BEAKER) (test 27 meq/L 22-29 code = 355) BLOOD UREA NITROGEN 18 mg/dL 7-21 (BEAKER) (test code = 354) CREATININE (BEAKER) 0.74 mg/dL 0.57-1.25 (test code = 358) GLUCOSE RANDOM 92 mg/dL 70-105 (BEAKER) (test code = 652) CALCIUM (BEAKER) 8.5 mg/dL 8.4-10.2 (test code = 697) EGFR (BEAKER) (test 79 mL/min/1.73 ESTIMA JENNIFER GFR IS code = 1092) sq m NOT ACCURATE CREATININE CLEARANCE IN PREDICTING GLOMERULAR FILTRATION RATE . ESTIMATED GFR I S NOT APPLICABLE FOR DIALYSIS PATIEN TS. Laboratory Assistant ID - [id number] 06:25:19 Test Item Value Reference Range Interpretation Comments MAGNESIUM (BEAKER) (test code = 2.5 mg/dL 1.6-2.6 627) Laboratory Assistant ID - [id number] 06:25:19 Test Item Value Reference Range Interpretation Comments PHOSPHORUS (BEAKER) (test code = 2.7 mg/dL 2.3-4.7 604) Laboratory Assistant ID - BSCBC W/PLT COUNT & AUTO [id number] 05:50:37 Test Item Value Reference Range Interpretation [...] 0-1 PERCENT (BEAKER) (test code = 2801) [id number] 14:14:38 Test Item Value Reference Range Interpretation Comments TRIGLYCERIDES (BEAKER) (test code = 163 mg/dL 540) TRIGLYCERIDE REFERENCE RANGELow Risk <150Borderline Risk 150-199High Risk 200-499Very High Risk >=500Operator ID - MOSARS-COV2/RT-PCR ([facility])2021-08-14 09:57:59 Test Item Value Reference Range Interpretation Comments SARS-COV2/RT-PCR (test Negative Not Detected, Negative, code = 9721769) See external report for linked test SARS-COV-2 PERFORMING LAB [facility] (test code = 8973970) Negative result for this test determines that [...] of the Act.Fact Sheet for Healthcare Prov iders:https://www.[employer]/sites/default/files/product/documents/Fact_Sheet_HC _Exhyvafed_Wuie_LGQS-ClQ-3.pdfFact Sheet for Healthcare Patients:https://www.[employer]/sites/default/files/product/docume nts/Xiih_Ipsqr_Jvbsmdht_Npzw_WOHT-IjE-5.pdfPerforming Laboratory:[address], [place] [address]OTTJ-EFALOGJ METER 2021-08-14 06:10:11 Test Item Value Reference Range Interpretation Comments POC-GLUCOSE METER 119 mg/dL 70-110 H : Notified RN/: (SCOOTER) (test code = TESTED AT [place] [address] 1538) [facility], [address]: Laboratory Assistant/Techni benjamin ID = [id number] for SYLVIA BARDALES POCT-GLUCOSE [id number] 00:23:47 Test Item Value Reference Range Interpretation Comments POC-GLUCOSE METER 178 mg/dL 70-110 H : Notified RN/: (SCOOTER) (test code = TESTED AT [place] [address] 1538) [facility], [address]: Laboratory Assistant/Techni benjamin ID = [id number] for SYLVIA BARDALES COMPREHENSIVE METABOLIC [id number] 19:13:46 Test Item Value Reference Range Interpretation [...] 347) EGFR (BEAKER) (test 61 mL/min/1.73 ESTIMA JENNIFER GFR IS code = 1092) sq m NOT ACCURATE CREATININE CLEARANCE IN PREDICTING GLOMERULAR FILTRATION RATE . ESTIMATED GFR I S NOT APPLICABLE FOR DIALYSIS PATIEN TS. Laboratory Assistant ID - BSPROTHROMBIN [id number] 19:02:27 Test Item Value Reference Range Interpretation Comments PROTIME (BEAKER) 12.3 seconds 11.9-14.2 (test code = 759) INR (BEAKER) (test 0.93 See_Comment [Automat ed message] code = 370) The system [employer] generated this result transmitted ref erence range: <=5.90. The reference range was not used to int erpret this result as normal/abnormal . RECOMMENDED COUMADIN/WARFARIN INR THERAPY RANGESSTANDARD DOSE: 2.0 - 3.0 Includes: PROPHYLAXIS for venous thrombosis, systemic embolization; TREATMENT for venous thrombosis and/or pulmonary embolus.HIGH RISK: Target INR is 2.5-3.5 for patients with mechanical heart valves.CBC W/PLT COUNT & AUTO [id number] 18:51:23 Test Item Value Reference Range Interpretation [...] = 2801) RAD, CHEST, 1 VIEW, NON [id number] 18:27:00Reason for exam:->post picc line insertionShould this be performed at the bedside?->Yes [facility] : 1955 Sex: FFINAL REPORT TECHNIQUE: [...] projected over the distal SVC. Signed: Thelma Higgins MDReport Verified Date/Time: 08/13/2021 18:27:07 BASI METABOLIC [id number] 05:35:09 Test Item Value Reference Range Interpretation [...] 697) EGFR (BEAKER) (test 64 mL/min/1.73 ESTIMA JENNIFER GFR IS code = 1092) sq m NOT ACCURATE CREATININE CLEARANCE IN PREDICTING GLOMERULAR FILTRATION RATE . ESTIMATED GFR I S NOT APPLICABLE FOR DIALYSIS PATIEN TS. Laboratory Assistant ID - PIAYA LLACTIC ACID, [id number] 05:11:20 Test Item Value Reference Range Interpretation Comments LACTATE BLOOD VENOUS (2) (BEAKER) 2.49 mmol/L 0.50-2.20 H (test code = 2872) Laboratory Assistant ID - DBCBC W/PLT COUNT & AUTO [id number] 05:00:57 Test Item Value Reference Range Interpretation [...] 0-1 PERCENT (BEAKER) (test code = 2801) [id number] 06:40:18 Test Item Value Reference Range Interpretation Comments PHOSPHORUS (BEAKER) 3.3 mg/dL 2.3-4.7 Specimen slightly (test code = 604) hemolyzed Laboratory Assistant ID - DBBASIC METABOLIC [id number] 06:40:18 Test Item Value Reference Range Interpretation [...] 697) EGFR (BEAKER) (test 60 mL/min/1.73 ESTIMA JENNIFER GFR IS code = 1092) sq m NOT ACCURATE CREATININE CLEARANCE IN PREDICTING GLOMERULAR FILTRATION RATE . ESTIMATED GFR I S NOT APPLICABLE FOR DIALYSIS PATIEN TS. Laboratory Assistant ID - [id number] 06:40:17 Test Item Value Reference Range Interpretation Comments MAGNESIUM (BEAKER) 1.9 mg/dL 1.6-2.6 Specimen slightly (test code = 627) hemolyzed Laboratory Assistant ID - DBCBC (HEMOGRAM ONLY)2021-05-18 05:39:35 Test [...] 0-0 (BEAKER) (test code = 413) SARS-COV2/RT-PCR ([facility])2021-05-17 14:30:52 Test Item Value Reference Range Interpretation Comments SARS-COV2/RT-PCR (test Negative Not Detected, Negative, code = 0127864) See external report for linked test SARS-COV-2 PERFORMING LAB [facility] (test code = 8914845) Negative result for this test determines that [...] of the Act.Fact Sheet for Healthcare Prov iders:https://www.[employer]/sites/default/files/product/documents/Fact_Sheet_HC _Bwxneykxh_Gxwv_DBEC-PcF-2.pdfFact Sheet for Healthcare Patients:https://www.[employer]/sites/default/files/product/docume nts/Kgjt_Dngqa_Vzzjvdoe_Fklv_WLBI-IvH-8.pdfPerforming Laboratory:[facility].[place], [place] [address]KAS, CHEST, 1 VIEW, NON [id number] 11:04:00Reason for exam:->new admission with possible entero- enteric fistulaShould this be performed at the bedside?->Yes [facility] : 1955 Sex: FFINAL REPORT 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 FINDINGS: Lines, tubes, and devices: None.Lungs andpleura: Clear lungs. No effusion.Heart and mediastinum: Normal heart size. Unremarkable mediastinal contours.Osseous structures: No acute abnormality. Mild spondylosis and facet arthropathy are presentwithin the spine. Other: None. IMPRESSION: No acute intrathoracic abnormality. Signed: Abigail Romero Verified Date/Time: 05/17/2021 11:04:57 Reading Location: [facility] Radiology Reading Room RAD, ABDOMEN/KUB, 1 VIEW [id number] 10:21:00Reason for exam:->concern for small bowel obstructionShould this be performed at the bedside?->Yes [facility] : 1955 Sex: FFINAL REPORT RAD, [...] ileus or partial small bowel obstruction. Signed: Anita Romero MDReport Verified Date/Time: 05/17/2021 10:21:20 Reading Location: [facility] Radiology Reading Room [id number] 09:42:25 Test Item Value Reference Range Interpretation Comments PHOSPHORUS (BEAKER) (test code = 2.6 mg/dL 2.3-4.7 604) Laboratory Assistant ID - DBBASIC METABOLIC [id number] 09:42:24 Test Item Value Reference Range Interpretation [...] 697) EGFR (BEAKER) (test 68 mL/min/1.73 ESTIMA JENNIFER GFR IS code = 1092) sq m NOT ACCURATE CREATININE CLEARANCE IN PREDICTING GLOMERULAR FILTRATION RATE . ESTIMATED GFR I S NOT APPLICABLE FOR DIALYSIS PATIEN TS. Laboratory Assistant ID - [id number] 09:42:24 Test Item Value Reference Range Interpretation Comments MAGNESIUM (BEAKER) (test code = 1.9 mg/dL 1.6-2.6 627) Laboratory Assistant ID - DBPROTHROMBIN [id number] 09:28:59 Test Item Value Reference Range Interpretation Comments PROTIME (BEAKER) 12.9 seconds 11.9-14.2 (test code = 759) INR (BEAKER) (test 0.99 See_Comment [Automat ed message] code = 370) The system [employer] generated this result transmitted ref erence range: [...] WBC 0-0 (BEAKER) (test code = 413) T Spot [id number] 10:58:56T-Spot TBOXSTERLING DIAGNOSTIC LABORATORIESNeg Ctrl Spot CountOXSTERLING DIAGNOSTIC LABORATORIESPanel A SpotOXSTERLING DIAGNOSTIC LABORATORIESPanel B SpotOXSTERLING DIAGNOSTIC LABORATORIESPos Ctrl Spot CtOXSTERLING DIAGNOSTIC LABORATORIESScan ResultOXSTERLING DIAGNOSTIC LABORATORIESSee scanned reportCHI [facility] B [id number] 20:49:20 Test Item Value Reference Range Interpretation Comments Hep B Core Total Ab Nonreactive Nonreactive (test code = 95481-4) Hep B S Ab (test <8.0 See_Comment [Automated code = 35583-9) message] The system which generated this result transmitted reference range : <8.0 mIU/mL. e reference range was not used to interpret this result as normal/abnormal . Hepatitis B surface Nonreactive Nonreactive antigen (test code = 5195-3) YULI (test code = Laboratory Assistant ID - YULI) BSOperator ID - BS Lab Interpretation Normal (test code = 35961-1) [facility] B [id number] 20:49:20 Test Item Value Reference Range Interpretation Comments HEPATITIS B CORE TOTAL ANTIBODY Nonreactive Nonreactive (BEAKER) (test code = 497) HEPATITIS B SURFACE ANTIBODY < mIU/mL <8.0 (BEAKER) (test code = 647) HEPATITIS B SURFACE ANTIGEN (2) Nonreactive Nonreactive (BEAKER) (test code = 2585) Laboratory Assistant ID - BSOperator ID - BSVitamin D, [id number] 18:58:29 Test Item Value Reference Range Interpretation Comments Vitamin D 25-Hydroxy 48.0 ng/mL 6.6-49.9 (test code = 2764) YULI (test code = YULI) Effective 11/26/2016: Reference Range ChangeNew: 6.6-49.9 ng/mL Previous: 13.0-47.8 ng/mL Recommended Vitamin D Target Range: 30.0-40.0 ng/mLOperator ID - BS Lab Interpretation (test Normal code = 94494-3) [facility], [id number] 18:58:29 Test Item Value Reference Range Interpretation Comments VITAMIN D 25-OH (BEAKER) (test 48.0 ng/mL 6.6-49.9 code = 2764) Effective 11/26/2016: Reference Range ChangeNew: 6.6-49.9 ng/mL Previous: 13.0- 47.8 ng/mLRecommendedVitamin D Target Range: 30.0-40.0 ng/mLOperator ID - BS Clostridium difficile GDH [id number] 13:19:34 Test Item Value Reference Range Interpretation Comments C. Difficle Toxin Negative Negative (test code = 1193611781) C. Difficile GDH Negative Negative No indicati on of Antigen (test code = Clostri dium 9686528071) difficile infection and n o colonization. Discontinue enteric isolati on and therapy. YULI (test code = Testing performed YULI) by Alere Rapid Cassette Assay. For GDH, published sensitivity of the assay is 98.7% compared to cytotoxicity testing. For Toxin AB, published sensitivity is 87.8% and specificity 99.4% compared to cytotoxicity testing.Verificati on of kit performance was done by the [facility] Microbiology Lab prior to clinical use. Lab Interpretation Normal (test code = 14635-3) [facility]. DIFFICILE GDH [id number] 13:19:34 Test Item Value Reference Range Interpretation Comments CDT TOXIN (test code Negative Negative = 7240764947) CDT GDH ANTIGEN (test Negative Negative No ind ication of code = 7955621050) Clostridi um difficile infection and n o colonization. Discontinue ent christopher isolation and t herapy. Testing performed by Alere Rapid Cassette Assay. For GDH, published sensitivity of the assay is 98.7% compared to cytotoxicity testing. For Toxin AB, published sensitivity is 87.8% and specificity 99.4% compared to cytotoxicity testing.Verification of kit performance was done by the [facility] MicrobiologyLab prior to clinical use.BASIC METABOLIC [id number] 05:52:32 Test Item Value Reference Range Interpretation [...] 697) EGFR (BEAKER) (test 80 mL/min/1.73 ESTIMA JENNIFER GFR IS code = 1092) sq m NOT ACCURATE CREATININE CLEARANCE IN PREDICTING GLOMERULAR FILTRATION RATE . ESTIMATED GFR I S NOT APPLICABLE FOR DIALYSIS PATIEN TS. Laboratory Assistant ID - PIAYA LCBC (HEMOGRAM ONLY)2021-02-06 05:38:48 [...] (BEAKER) (test code = 413) BASIC METABOLIC [id number] 05:38:29 Test Item Value Reference Range Interpretation [...] 697) EGFR (BEAKER) (test 77 mL/min/1.73 ESTIMA JENNIFER GFR IS code = 1092) sq m NOT ACCURATE CREATININE CLEARANCE IN PREDICTING GLOMERULAR FILTRATION RATE . ESTIMATED GFR I S NOT APPLICABLE FOR DIALYSIS PATIEN TS. Laboratory Assistant AMADA - DEANNA PRETTY-REACTIVE [id number] 05:38:29 Test Item Value Reference Range Interpretation Comments C-REACTIVE PROTEIN (BEAKER) (test 3.86 mg/dL 0.00-0.50 H code = 676) Laboratory Assistant AMADA - DEANNA PRETTYBC (HEMOGRAM ONLY)2021-02-05 05:28:27 [...] 0-0 (BEAKER) (test code = 413) CT, [id number] 16:56:00Unlisted Reason for Exam - Click Yes and Enter Reason Below->NoIs this for enterography?->NoWill this procedure require oral contrast?->No [facility] : 1955 Sex: FFINAL REPORT TECHNIQUE: [...] is most consistent with an angiomyolipoma. Signed: Jm Montesinos MDReport Verified Date/Time: 02/04/2021 16:56:27 Reading Location: [facility] Diagnostic Imaging Reading Room - [place] [address] Vitamin B12 and [id number] 07:14:11 Test Item Value Reference Range Interpretation Comments Vitamin B12 (test 187 pg/mL 213-816 L code = 2132-9) Folate (test code = 18.90 ng/mL See_Comment [Automa jennifer 2284-8) message] The system which generated this result transmit jennifer reference range : >=7.00. The reference range was not used to interpret this result as normal/abnormal . YULI (test code = YULI) Laboratory Assistant ID - LIDA Beverly Lab Interpretation Abnormal (test code = 64544-1) [facility] B12 AND [id number] 07:14:11 Test Item Value Reference Range Interpretation Comments VITAMIN B12 187 pg/mL 213-816 L (BEAKER) (test code = 774) FOLATE (BEAKER) 18.90 ng/mL See_Comment [Automated message] (test code = 362) The system which generated this result transmitted ref erence range: >=7.00. The reference range was not used to interpr et this result as normal/abnormal . Laboratory Assistant ID Kimberlee HILTON [id number] 07:14:10 Test Item Value Reference Range Interpretation Comments Ferritin (test code = 110.79 ng/mL 5.00-275.00 2276-4) YULI (test code = YULI) Laboratory Assistant ID Kimberlee HILTON F Lab Interpretation (test Normal code = 88197-7) [facility]ERR[facility]IN2021-[facility]-20 07:14:10 Test Item Value Reference Range Interpretation Comments FERRITIN (BEAKER) (test code = 110.79 ng/mL 5.00-275.00 361) Laboratory Assistant ID - LIDA FIron, TIBC, % sat. (without ferritin)2021-02-04 06:55:40 Test Item Value Reference Range Interpretation Comments Iron (test code = 2498-4) 75.0 ug/dL 40.0-160.0 TIBC (test code = 2500-7) 258 ug/dL 250-450 Iron % Saturation (test 29 % 20-55 code = 2502-3) YULI (test code = YULI) Laboratory Assistant ID Kimberlee HILTON F Lab Interpretation (test Normal code = 11198-2) [facility], TIBC, % SAT. (WITHOUT FERRITIN)2021-02-04 06:55:40 Test Item Value Reference Range Interpretation Comments IRON (BEAKER) (test code = 547) 75.0 ug/dL 40.0-160.0 TOTAL IRON BINDING CAPACITY 258 ug/dL 250-450 (BEAKER) (test code = 769) IRON % SATURATION (2) (BEAKER) 29 % 20-55 (test code = 2590) Laboratory Assistant ID - LIDA FHEPATIC FUNCTION [id number] 16:57:11 Test Item Value Reference Range Interpretation [...] Specimen slightly (test code = 347) hemolyzed Laboratory Assistant ID - PIAYA LHEMOGLOBIN [id number] 12:28:44 Test Item Value Reference Range Interpretation Comments HEMOGLOBIN A1C (BEAKER) (test code = 5.3 % 4.3-6.1 368) [id number] 09:47:42 Test Item Value Reference Range Interpretation Comments PHOSPHORUS (BEAKER) 3.5 mg/dL 2.3-4.7 Specimen slightly (test code = 604) hemolyzed Laboratory Assistant ID - PIAYA LBASIC METABOLIC [id number] 09:47:42 Test Item Value Reference Range Interpretation [...] 697) EGFR (BEAKER) (test 68 mL/min/1.73 ESTIMA JENNIFER GFR IS code = 1092) sq m NOT ACCURATE CREATININE CLEARANCE IN PREDICTING GLOMERULAR FILTRATION RATE . ESTIMATED GFR I S NOT APPLICABLE FOR DIALYSIS PATIEN TS. Laboratory Assistant ID - PIAYA [id number] 09:47:41 Test Item Value Reference Range Interpretation Comments MAGNESIUM (BEAKER) 2.2 mg/dL 1.6-2.6 Specimen slightly (test code = 627) hemolyzed Laboratory Assistant AMADA PERAZA LC-REACTIVE [id number] 09:45:23 Test Item Value Reference Range Interpretation Comments C-REACTIVE PROTEIN (BEAKER) (test 3.67 mg/dL 0.00-0.50 H code = 676) Laboratory Assistant ID - KARMEN LCBC W/PLT COUNT & AUTO [id number] 09:23:38 Test Item Value Reference Range Interpretation [...] code = 2801) RAD, ABDOMEN/KUB, 1 VIEW [id number] 07:28:00Reason for exam:->NGT tube placementShould this be performed at the bedside?->Yes [facility]OA : 1955 Sex: FFINAL REPORT RAD, ABDOMEN/KUB, 1 VIEW AP INDICATION: NGT tube placement COMPARISON: NoneTECHNIQUE: Limited portable radiograph of the lower chest and upper abdomen was acquired for purposes of evaluating tube placement FINDINGS/IMPRESSION:NG side-port overlies the stomach Signed: Nargis Grossman Verified Date/Time: 02/03/2021 07:28:00
--- NOTE | 2021-11-29 14:03 | P.HP ---
Certification for Inpatient Patient admitted to: Inpatient With expected LOS: >2 Midnights Patient will require the following post-hospital care: None Practitioner: I am a practitioner with admitting privileges, knowledge of patient current condition, hospital course, and medical plan of care. Services: Services provided to patient in accordance with Admission requirements found in Title 42 Section 412.3 of the Code of Federal Regulations Patient History Date of Service: 11/29/21 Reason for admission: Fungemia History of Present Illness: Mrs. 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 [place], [place] for higher level of care. She reports that, on 11/27/2021, she been developing fevers up to 101.2 F. She states that this has been associated with chills, generalized myalgias, weakness, and diffuse abdominal pain. She denies any obvious inciting or alleviating factors. She has tried taking hydrocodone-acetaminophen, without alleviation of her symptoms. On review of systems, she denies any headaches, dizziness, syncope, chest pain, palpitations, shortness of breath, wheezing, cough, nausea/vomiting, diarrhea, constipation, hematochezia, melena, dysuria, hematuria, myalgia, or any other symptoms. Upon evaluation, her vital signs were notable for a temperature of 101.1 F and a heart rate of 112 bpm. Her most recent laboratory studies were notable for a WBC count of 3.10. Recent urinalysis revealed 2+ nitrites, 250 leukocyte esterase, and 20-50 WBCs. Recent blood cultures x 2 tested positive for yeast. Recent chest x-ray revealed, "no acute abnormalities displayed." CT abdomen/pelvis revealed, "1. Persistent mild inflammatory changes at the terminal ileum consistent with active inflammation. Liquid stool noted in the colon. No bowel obstruction or abscess. Suspected small bowel fistula is again identified. 2. Mild gallbladder wall thickening. All present on prior CTs, suggest correlating clinically to exclude cholecystitis." She was admitted to the General Internal Medicine service for further evaluation. Allergies ciprofloxacin Allergy (Verified 08/30/21 22:33) Itching/Hives/Rash latex [Latex] Allergy (Verified 08/30/21 22:33) Itching/Hives/Rash Latex, Natural Rubber Allergy (Verified 08/30/21 22:33) Unknown metronidazole Allergy (Verified 08/30/21 22:33) Itching/Hives/Rash Home Medications: Albuterol Inhaler [Ventolin Inhaler*] 2 puff IH Q6H PRN 11/29/21 Apixaban [Eliquis *] 2.5 mg PO BID 11/29/21 Atorvastatin Calcium [Lipitor*] 10 mg PO BEDTIME tab 11/29/21 Benzonatate [Tessalon Perle*] 100 mg PO TID PRN cap 11/29/21 Bupropion *Xl* [Wellbutrin XL*] 150 mg PO DAILY tab 11/29/21 D10w [Dextrose 10% Water IV Soln*] 125 ml IV PRN PRN bag 11/29/21 Furosemide [Lasix*] 40 mg PO DAILY tab 11/29/21 Hydrocodone 5/APAP 325 [Marydel 5/325*] 1 tab PO Q4H PRN tab 11/29/21 Hydrocortisone Cream [Hydrocortisone 1% Cream*] 1 appl TOP TID PRN tube 11/29/21 Hydromorphone [Dilaudid*] 1 mg IV Q6H PRN ml 11/29/21 Hyoscyamine Sulfate [Levsin TAB*] 0.125 mg PO QID PRN tab 11/29/21 Insulin -Regular Human [Novolin -R*] See Protocol SQ Q6HR ml 11/29/21 Ipratropium Neb [Atrovent*] 0.5 mg NEB [id number] PRN amp 11/29/21 Lidocaine 4% Patch [Lidoderm 5% Patch*] 2 patch TOP DAILY patch 11/29/21 Loperamide [Imodium*] 2 mg PO Q4H PRN cap 11/29/21 Magnesium Oxide [Mag 0X*] 400 mg PO BID tab 11/29/21 Melatonin [Melatonin*] 3 mg PO BEDTIME PRN PRN 11/29/21 Metoprolol Tartrate [Lopressor*] 25 mg PO BID 6AM 6PM tab 11/29/21 Ondansetron [Zofran*] 8 mg IV Q6H PRN vial 11/29/21 Pantoprazole [Protonix Tab*] 40 mg PO ACB tab 11/29/21 Pharmacy Consult 1 ea XX DAILYPRN PRN 11/29/21 Potassium Oral Tab [Klor-Con 10 mEq Tab*] 10 meq PO DAILY tab 11/29/21 Promethazine Inj [Phenergan -Inj*] 25 mg IV Q6H PRN amp 11/29/21 Sertraline [Zoloft*] 150 mg PO BEDTIME tab 11/29/21 clonazePAM [Klonopin*] 0.5 mg PO BID PRN tab 11/29/21 lisinopriL [Prinivil*] 20 mg PO DAILY tab 11/29/21 predniSONE [Prednisone*] 60 mg PO DAILY tab 11/29/21 traMADol HCL [Ultram*] 50 mg PO Q4H PRN tab 11/29/21 - Past Medical/Surgical History Diabetic: No -: HTN -: Prediabetes -: Hypothyroidism -: Depression -: Recurrent SBO -: GERD -: Crohn's disease -: Colitis -: Psychosocial/ Personal History: Patient is . - Family History Father -: Cancer Notes: lung Cx Mother -: Heart disease, GI disease Notes: chron's - Social History Smoking Status: Never smoker Alcohol use: No CD- Drugs: No Caffeine use: No Review of Systems General: Fever, Chills, Weakness (generalized), Malaise Eyes: Unremarkable ENT: Unremarkable Respiratory: Unremarkable Cardiovascular: Unremarkable Gastrointestinal: Nausea, Abdominal Pain Genitourinary: Unremarkable Musculoskeletal: Unremarkable Integumentary: Unremarkable Neurological: Unremarkable Physical Examination - Vital Signs Temperature: 101.1 F Blood Pressure: 132/64 Pulse: 112 Respirations: 19 Pulse Ox (%): 96 - Physical Exam General: Alert, Oriented x3, Mild distress HEENT: Atraumatic, PERRLA, Mucous membr. moist/pink, EOMI, Sclerae nonicteric Neck: Supple, JVD not distended Respiratory: Clear to auscultation bilaterally, Normal air movement Cardiovascular: Regular rate/rhythm, Normal S1 S2, No gallops, No rubs, No murmurs, Edema (trace) Gastrointestinal: Hypoactive, Non-distended, No rebound, Tenderness (generalized), Guarding Musculoskeletal: No clubbing Integumentary: No rashes Neurological: Normal speech, Cranial nerves 3-12 intact, Normal affect Assessment and Plan - Plan # Fungal Sepsis secondary Fungemia from Total Parenteral Nutrition She met SIRS criteria based on temperature > 100.9 F, HR > 90 bpm, and WBC < 4,000, and the identified source is fungemia. - Sepsis order set was initiated - Initial Lactate was requested - Repeat blood cultures drawn - Broad spectrum antibiotics started per Infections Diseases - Vancomycin + Meropenem + Fluconazole - In regards to fluids: - 30 mL/kg of IV fluids was not administered given SBP > 90, MAP > 65 - Infectious Diseases consulted and spoke with Dr. Child - recommendations appreciated - Ophthalmology consulted for ophthalmic exam given fungemia - recommendations appreciated # Crohn's Disease complicated by Small Bowel Fistula and recurrent Small Bowel Obstructions with TPN dependence since August 2021 - CT abdomen/pelvis = "1. Persistent mild inflammatory changes at the terminal ileum consistent with active inflammation. Liquid stool noted in the colon. No bowel obstruction or abscess. Suspected small bowel fistula is again identified. 2. Mild gallbladder wall thickening. All present on prior CTs, suggest correlating clinically to exclude cholecystitis." - Ordered RUQ ultrasound - if suggestive of acute cholecystitis, consult General Surgery - I spoke with her GI specialist, Dr. Stein, who recommended against steroids - He states that he would advise discontinuing TPN and removing her PICC line - If she is improving, he suggests starting PPN in 48 hours - otherwise, she can be trailed on clear liquids - He advises against tube feeds # Hypertension # Hyperlipidemia # Hypothyroidism # Prediabetes # Depression # Gastroesophageal Reflux Disease Resume home medications once verified. 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 - Follow-up with PCP Eric Brown M.D. - Advance Directives Does patient have a Living Will: No Does patient have a Durable POA for Healthcare: No
[2021-11-29] MEDS: FLUCONAZOLE 400 MG IVPB 400 MG/200 ML BAG IV SCH (14:30)
[2021-11-29 14:54] VITALS: BMI 44.1
[2021-11-29] MEDS ORDERED: clonazePAM 0.5 MG TAB PO PRN (14:57)
[2021-11-29] MEDS ORDERED: VANCOMYCIN 2.75 GM in NA CHLORIDE 0.9% 500 ML IVPB ONE (15:00)
--- NOTE | 2021-11-29 15:19 | RAD REPORT ---
EXAM DESCRIPTION: US - Abdomen Exam Limited - 11/29/2021 3:09 pm CLINICAL HISTORY: gallbladder Abdominal pain COMPARISON: Abdomen Exam Limited dated 04/04/2021; Abdomen Pelvis W/Wo Contrast dated 11/29/2021 FINDINGS: The gallbladder demonstrates extensive cholelithiasis. Gallbladder wall is mildly thickene d. The common bile duct is normal measuring 3-4 mm.. The liver demonstrates no findings of intrahepatic biliary dilatation. IMPRESSION: Extensive cholelithiasis with upper limit of normal gallbladder wall.
[2021-11-29] MEDS: ENOXAPARIN 40 MG/0.4 ML SQ SCH (16:05)
[2021-11-29 17:10] LABS: Potassium 3.3 mmol/L (3.5-5.1)
[2021-11-29 17:21] LABS: Absolute Lymphocytes (CBC) 0.2 K/uL (0.7-4.9); Hematocrit 25.1 % (36.0-45.0); Lymphocytes % 14.4 % (15.3-44.8); MCV 79.5 fL (80-100); MPV 8.4 fL (7.6-11.3); RBC Red Blood Cell Count 3.15 M/uL (3.86-4.86)
[2021-11-29] MEDS ORDERED: ACETAMINOPHEN 650MG/RECT SUPP PR PRN (17:46)
[2021-11-29] MEDS ORDERED: KCL 20 MEQ/100 mL IVPB 20 MEQ/100 ML BAG IV SCH (18:00)
[2021-11-29] MEDS: Ringers Lactate 1,000 ML IV SCH (18:10)
[2021-11-29] MEDS: ONDANSETRON 4 MG/2 ML VIAL IV PRN (18:10)
[2021-11-29] MEDS ORDERED: HYDROCODONE/APAP 7.5/325 MG TAB PO PRN (18:29)
[2021-11-29] MEDS: MORPHINE 2 MG/ML SYR IV PRN (20:24)
[2021-11-29] MEDS: Meropenem 1,000 MG in NA CHLORIDE 0.9% 100 ML IV SCH (20:33)
[2021-11-29] MEDS: GABAPENTIN 300 MG CAP PO SCH (21:00)
[2021-11-29] MEDS: PROMETHAZINE INJ 25 MG/ML AMP IV PRN (21:28)
[2021-11-29 21:30] LABS: Platelet Estimate DECR
[2021-11-29 21:31] LABS: Anisocytosis 1+; Blood Morphology Comment NOTED (NOT SEEN); Ovalocytes SLIGHT; Poikilocytosis SLIGHT
[2021-11-30] MEDS: Meropenem 1,000 MG in NA CHLORIDE 0.9% 100 ML IV SCH ×4 (01:00→21:23)
[2021-11-30] MEDS: PROMETHAZINE INJ 25 MG/ML AMP IV PRN (05:46)
[2021-11-30] MEDS: Ringers Lactate 1,000 ML IV SCH ×2 (07:48→21:23)
[2021-11-30] MEDS: FLUCONAZOLE 400 MG IVPB 400 MG/200 ML BAG IV SCH (07:51)
[2021-11-30] MEDS: BUPROPION HCL XL 150 MG TAB PO SCH (07:52)
[2021-11-30] MEDS: GABAPENTIN 300 MG CAP PO SCH ×2 (07:52→21:00)
[2021-11-30] MEDS: ENOXAPARIN 40 MG/0.4 ML SQ SCH (07:52)
[2021-11-30] MEDS: SERTRALINE HCL 100 MG TAB PO SCH (07:53)
[2021-11-30] MEDS: VANCOMYCIN 2 GM in NA CHLORIDE 0.9% 500 ML IVPB SCH (09:08)
--- NOTE | 2021-11-30 09:28 | P.PN ---
Subjective Date of Service: 11/30/21 Chief Complaint: Sepsis possible fungemia Subjective: Improving (Improving no new complaint patient is on broad-spectrum IV antibiotics no new complaints history of Crohn's disease) Review of Systems General: Weakness Gastrointestinal: Diarrhea Physical Examination - Vital Signs Temperature: 98.2 F Blood Pressure: 105/49 Pulse: 88 Respirations: 16 Pulse Ox (%): 96 - Physical Exam General: Alert HEENT: Atraumatic Neck: Supple Cardiovascular: No edema, Regular rate/rhythm, Normal S1 S2 Gastrointestinal: Normal bowel sounds, Soft and benign - Studies Laboratory Data (last 24 hrs) 11/29/21 16:28: Sodium 137, Potassium 3.3 L, BUN 18, Creatinine 0.73, Glucose 95 11/29/21 16:28: WBC 1.60 L*, Hgb 8.1 L, Hct 25.1 L, Plt Count 112 L Assessment And Plan - Current Problems (Diagnosis) (1) Sepsis Current Visit: Yes Status: Acute Plan: Patient is 66 years of age with history of Crohn's disease on TPN admitted with fever possible fungemia and patient is on fluconazole vancomycin meropenem blood cultures have been sent urine cultures ordered patient was neutropenic labs are pending ID has been consulted patient's vital signs are stable currently on IV fluids ultrasound of the abdomen next extensive cholelithiasis seen by ID to biotics as per ID recommendation she also has paraplegia patient is afebrile vital signs stable on IV fluids cultures have been sent HIDA scan ordered Qualifiers: Sepsis type: sepsis due to unspecified organism
[2021-11-30] MEDS: MORPHINE 2 MG/ML SYR IV PRN (18:45)
[2021-11-30 21:40] LABS: Absolute Lymphocytes (CBC) 0.4 K/uL (0.7-4.9); Hematocrit 25.9 % (36.0-45.0); Lymphocytes % 32.1 % (15.3-44.8); MPV 8.5 fL (7.6-11.3); RBC Red Blood Cell Count 3.29 M/uL (3.86-4.86)
[2021-11-30 21:56] LABS: Bilirubin Total 0.4 mg/dL (0.2-1.0); Magnesium 1.7 mg/dL (1.8-2.4); Phosphorus 2.6 mg/dL (2.5-4.9); Potassium 3.5 mmol/L (3.5-5.1); Protein, Total 5.1 g/dL (6.4-8.2)
[2021-12-01] MEDS: VANCOMYCIN 2 GM in NA CHLORIDE 0.9% 500 ML IVPB SCH ×2 (02:26→21:55)
[2021-12-01] MEDS: PROMETHAZINE INJ 25 MG/ML AMP IV PRN (04:39)
[2021-12-01] MEDS: MORPHINE 2 MG/ML SYR IV PRN ×2 (05:37→21:56)
[2021-12-01] MEDS: Meropenem 1,000 MG in NA CHLORIDE 0.9% 100 ML IV SCH ×3 (05:38→21:00)
[2021-12-01] MEDS: SERTRALINE HCL 100 MG TAB PO SCH (08:14)
[2021-12-01] MEDS: BUPROPION HCL XL 150 MG TAB PO SCH (08:14)
[2021-12-01] MEDS: GABAPENTIN 300 MG CAP PO SCH ×2 (08:14→21:00)
--- NOTE | 2021-12-01 09:23 | P.PN ---
Subjective Date of Service: 12/01/21 Chief Complaint: Sepsis possible fungemia Subjective: Improving (Patient is doing better no fever denies any abdominal pain) Review of Systems 10-point ROS is otherwise unremarkable General: Weakness Physical Examination - Vital Signs Temperature: 97.4 F Blood Pressure: 135/62 Pulse: 82 Respirations: 18 Pulse Ox (%): 99 - Physical Exam General: Alert, In no apparent distress, Oriented x3 Respiratory: Clear to auscultation bilaterally Cardiovascular: No edema, Normal S1 S2 Gastrointestinal: Normal bowel sounds, Soft and benign, Non-distended - Studies Laboratory Data (last 24 hrs) 11/30/21 21:15: Sodium 139, Potassium 3.5, BUN 17, Creatinine 0.53 L, Glucose 73 L, Phosphorus 2.6, Magnesium 1.7 L, Total Bilirubin 0.4, AST 135 H, ALT 102 H, Alkaline Phosphatase 267 H 11/30/21 21:15: WBC 1.30 L*, Hgb 8.4 L, Hct 25.9 L, Plt Count 104 L Microbiology Data (last 24 hrs): 11/30/21 21:15 Blood - Blood Anaerobic Blood Culture - Final Assessment And Plan - Current Problems (Diagnosis) (1) Sepsis Current Visit: Yes Status: Acute Plan: Possible underlying sepsis so far no fever patient is still neutropenic blood cultures are pending we will try some liquids and some Jell-O chemistries are pending vital signs stable meds reviewed on IV fluids patient does have extensive cholelithiasis and ileitis from her Crohn's disease Qualifiers: Sepsis type: sepsis due to unspecified organism
[2021-12-01] MEDS: Ringers Lactate 1,000 ML IV SCH (09:54)
[2021-12-01] MEDS: ENOXAPARIN 40 MG/0.4 ML SQ SCH (09:55)
[2021-12-01] MEDS: FLUCONAZOLE 400 MG IVPB 400 MG/200 ML BAG IV SCH (09:55)
[2021-12-01 12:20] LABS: Transitional Epithelial <5 /HPF (None Seen); Urine Bacteria <20 /HPF (<20); Urine Bilirubin NEGATIVE (Negative); Urine Blood 1+ (Negative); Urine Clarity Turbid (Clear); Urine Color Yellow (Yellow); Urine Glucose NEGATIVE (Negative); Urine Mucus Slight /HPF (None Seen); Urine Protein 1+ (Negative); Urine Urobilinogen Normal (Normal); Urine pH 5.5 (5.0-7.0)
[2021-12-01] MEDS: ONDANSETRON 4 MG/2 ML VIAL IV PRN (12:35)
[2021-12-01 15:01] LABS: Bilirubin Total 0.4 mg/dL (0.2-1.0); Potassium 3.6 mmol/L (3.5-5.1); Protein, Total 5.1 g/dL (6.4-8.2)
[2021-12-01 15:06] LABS: Absolute Lymphocytes (CBC) 0.8 K/uL (0.7-4.9); Hematocrit 26.4 % (36.0-45.0); Lymphocytes % 33.7 % (15.3-44.8); MCV 79.4 fL (80-100); MPV 9.1 fL (7.6-11.3); RBC Red Blood Cell Count 3.32 M/uL (3.86-4.86)
[2021-12-01 15:36] LABS: Platelet Estimate DECR; White Blood Cell Scan OK (OK)
[2021-12-01 15:37] LABS: Anisocytosis SLIGHT; Blood Morphology Comment NOTED (NOT SEEN); Poikilocytosis SLIGHT
[2021-12-01] MEDS ORDERED: MORPHINE 2 MG/ML SYR IV ONE (22:15)
[2021-12-02] MEDS: Ringers Lactate 1,000 ML IV SCH ×3 (02:37→15:09)
[2021-12-02] MEDS: Meropenem 1,000 MG in NA CHLORIDE 0.9% 100 ML IV SCH ×3 (05:05→20:40)
[2021-12-02 06:11] LABS: Absolute Lymphocytes (CBC) 0.7 K/uL (0.7-4.9); Hematocrit 25.8 % (36.0-45.0); Lymphocytes % 33.3 % (15.3-44.8); MCV 78.8 fL (80-100); MPV 8.4 fL (7.6-11.3); RBC Red Blood Cell Count 3.28 M/uL (3.86-4.86)
[2021-12-02 06:25] LABS: Albumin 1.9 g/dL (3.4-5.0); Bilirubin Total 0.3 mg/dL (0.2-1.0); Potassium 3.2 mmol/L (3.5-5.1)
[2021-12-02] MEDS: GABAPENTIN 300 MG CAP PO SCH ×2 (09:00→20:41)
[2021-12-02] MEDS: SERTRALINE HCL 100 MG TAB PO SCH (09:00)
[2021-12-02] MEDS: BUPROPION HCL XL 150 MG TAB PO SCH (09:00)
[2021-12-02] MEDS: FLUCONAZOLE 400 MG IVPB 400 MG/200 ML BAG IV SCH (09:22)
[2021-12-02] MEDS: ENOXAPARIN 40 MG/0.4 ML SQ SCH (09:22)
[2021-12-02 11:40] VITALS: O2SAT 94
--- NOTE | 2021-12-02 12:34 | PN ---
Subjective: The patient lying in bed, looks much better today. Denies any chest pain, abdominal patricia n. Complains of backache because of lying down in bed. Still n.p.o. Objective: Vital Signs: Temperature 97, pulse 76, respiration 18, blood pressure 140/64. Lungs: Basal crackles. Heart: S1, S2. Regular. Abdomen: Soft, nontender. Bowel sounds present. Extremities: No edema. Laboratory Data: Shows WBC 2.2, hemoglobin 8.3, platelets are 120. Chemistry shows BUN is 8, creati nine 0.3. Albumin is 1.9. Assessment And Plan: A 66-year-old female with Crohn disease, awaiting surgical intervention. Growi ng yeast in her blood. Currently being treated with Diflucan. Fungemia on blood cultures from 11/27 and Pseudomonas aeruginosa from urine. The patient is currently on Diflucan and meropenem. Continu e supportive care. The patient has pancytopenia secondary to immune suppression. We will monitor ne utrophil counts. Continue supportive care and nutritional care. We will follow and total treatment of antifungal will be for 2 weeks. Consider restarting TPN on this patient. NF/MODL Voice ID: [id number] Report ID: [id number]
[2021-12-02] MEDS: MORPHINE 2 MG/ML SYR IV PRN ×2 (12:37→20:52)
[2021-12-02] MEDS: VANCOMYCIN 2 GM in NA CHLORIDE 0.9% 500 ML IVPB SCH (15:09)
--- NOTE | 2021-12-02 16:04 | P.PN ---
Date of Service: 12/02/21 Subjective Patient still with weakness and pain. Concern regarding surgery. Scheduled for December 05. Physical Examination - Vital Signs Reviewed - Physical Exam General: Alert, Oriented x3, Mild distress Respiratory: Clear to auscultation bilaterally, Normal air movement Cardiovascular: Regular rate/rhythm, Normal S1 S2, No gallops, No rubs, No mur murs, Edema (trace) Gastrointestinal: Hypoactive, Non-distended, No rebound, Tenderness (generalized), Guarding Neurological: No focal deficits Assessment and Plan -Assessment 1. Fungal Sepsis secondary Fungemia from Total Parenteral Nutrition 2. Crohn's Disease complicated by Small Bowel Fistula and recurrent Small Bowel Obstructions with TPN dependence since August 2021 3. Hypertension 4. Hyperlipidemia 5. Hypothyroidism 6. DM2 7. Depression 8. Gastroesophageal Reflux Disease 9. Acute T7 Compression Fracture with Cord Compression s/p T7 Corpectomy with Cage Placement and T4-T10 Posterior Segmental Instrumentation and Fusion (10/18/2021) 10. Significant Deconditioning 11. 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 Right Lower Lobe Pulmonary Nodule (5 mm) 13. Microscopic Hematuria - Plan 1. Continue with Diflucan 2. Continue with supportive care 3. Strict blood pressure and blood sugar control 4. Continue with antibiotic therapy 5. Discussed with gastroenterology regarding continued treatment for Crohn's disease 6. Discussed with surgery, Dr. Stein regarding IV nutrition
[2021-12-02] MEDS: D5 0.45 NS 1,000 ML IV SCH (21:18)
[2021-12-03] MEDS: Meropenem 1,000 MG in NA CHLORIDE 0.9% 100 ML IV SCH ×3 (04:49→21:10)
--- NOTE | 2021-12-03 06:59 | ECHO ---
HEIGHT: 5 ft 1 in WEIGHT: 234 lb 0 oz DATE OF STUDY: 12/02/[address]: Eric Brown MD 2-DIMENSIONAL: YES M.MODE: YES DOPPLER: YES COLOR FLOW: YES TDS: PORTABLE: YES DEFINITY: BUBBLE STUDY: DIAGNOSIS: RECENT ENDOCARDITIS WITH VALVULAR VEGETATIONS CARDIAC HISTORY: CATHERIZATION: NO SURGERY: NO PROSTHETIC VALVE: NO PACEMAKER: NO MEASUREMENTS (cm) DIASTOLIC (NORMALS) SYSTOLIC (NORMALS) IVSd 1.2 (0.6-1.2) LA Diam 3.0 (1.9-4.0) LVEF 61% LVIDd 4.0 (3.5-5.7) LVIDs 2.8 (2.0-3.5) %FS 32% LVPWd 1.3 (0.6-1.2) Ao Diam 2.4 (2.0-3.7) 2 DIMENSIONAL ASSESSMENT: RIGHT ATRIUM: NORMAL LEFT ATRIUM: NORMAL RIGHT VENTRICLE: NORMAL LEFT VENTRICLE: NORMAL TRICUSPID VALVE: NOT WELL SEEN MITRAL VALVE: MITRAL ANNULAR CALCIFICATION WITH MILD MITRAL REGURGITATION PULMONIC VALVE: NOT WELL SEEN AORTIC VALVE: CALCIFIED AORTIC VALVE WITH MILD AORTIC STENOSIS PERICARDIAL EFFUSION: NONE AORTIC ROOT: NORMAL LEFT VENTRICULAR WALL MOTION: NORMAL DOPPLER/COLOR FLOW: SEE BELOW COMMENTS: NORMAL LEFT VENTRICULAR EJECTION FRACTION 55-60% WITH NORMAL WALL MOTION. MITRAL ANNULAR CALCIFICATION WITH MILD MITRAL REGURGITATION. CALCIFIED AORTIC VALVE WITH MILD AORTIC STENOSIS. NO VEGETATION IS SEEN, RECOMMEND TRANSESOPHEGEAL ECHOCARDIOGRAM TO FURTHER EVALUATE. TECHNOLOGIST: DIANA ROSENTHAL
[2021-12-03] MEDS: GABAPENTIN 300 MG CAP PO SCH ×2 (08:09→21:00)
[2021-12-03] MEDS: BUPROPION HCL XL 150 MG TAB PO SCH (08:09)
[2021-12-03] MEDS: SERTRALINE HCL 100 MG TAB PO SCH (08:10)
[2021-12-03] MEDS: MORPHINE 2 MG/ML SYR IV PRN ×3 (10:13→22:00)
[2021-12-03] MEDS: VANCOMYCIN 2 GM in NA CHLORIDE 0.9% 500 ML IVPB SCH (10:14)
[2021-12-03] MEDS: ENOXAPARIN 40 MG/0.4 ML SQ SCH (10:14)
[2021-12-03] MEDS: D5 0.45 NS 1,000 ML IV SCH ×2 (10:15→23:40)
[2021-12-03] MEDS: FLUCONAZOLE 400 MG IVPB 400 MG/200 ML BAG IV SCH (12:45)
--- NOTE | 2021-12-03 14:07 | EKG ---
Test Date: 2021-11-29 Test Time: 19:42:16 Silviculturist: RT MEASUREMENT RESULTS: Intervals: Rate: 122 PA: 134 QRSD: 74 QT: 290 QTc: 413 [place]: P: 47 PA: 134 QRS: 21 T: 38 INTERPRETIVE STATEMENTS: Sinus tachycardia Otherwise normal ECG Compared to ECG 09/17/2021 14:52:53 ST (T wave) deviation no longer present Electronically Signed On 12-03-21 14:02:51 CDT by Venkata Long
--- NOTE | 2021-12-04 00:52 | PN ---
Subjective: The patient lying in bed. No new acute event. Chart reviewed. Denies any chest pain, abdominal pain, constipation, or diarrhea. Complains of backache, because of lying in bed. Objective: Vital Signs: Temperature 98, pulse 78, respirations 18, blood pressure 129/79. Lungs: Basal crackles. Heart: S1, S2 regular. Abdomen: Soft, nontender. Bowel sounds present. Extremities: No edema. Laboratory Data: Labs reviewed. Medications: Patient currently on fluconazole, meropenem, and vancomycin. Assessment/plan: Fungemia and funguria in a patient with severe Crohn disease. The patient is plann ed to be transferred to [facility] for surgical intervention. We will discontinue van comycin as patient is not growing methicillin-resistant Staphylococcus aureus. Tomorrow we will cont inue meropenem and Diflucan. Awaiting culture results. We will follow the patient closely. Monitor signs of infection with WBC and fever trends. Consider restarting TPN. Pseudomonas infection of ur ine. Complete meropenem in 5 days. We will follow the patient closely. NF/MODL Voice ID: [id number] Report ID: [id number]
[2021-12-04] MEDS: VANCOMYCIN 2 GM in NA CHLORIDE 0.9% 500 ML IVPB SCH (02:54)
[2021-12-04] MEDS: D5 0.45 NS 1,000 ML IV SCH ×2 (02:54→13:00)
[2021-12-04] MEDS: Meropenem 1,000 MG in NA CHLORIDE 0.9% 100 ML IV SCH (04:56)
[2021-12-04] MEDS: MORPHINE 2 MG/ML SYR IV PRN ×2 (05:01→16:12)
[2021-12-04 06:49] LABS: Absolute Lymphocytes (CBC) 1.2 K/uL (0.7-4.9); Hematocrit 28.7 % (36.0-45.0); Lymphocytes % 32.7 % (15.3-44.8); MCV 78.2 fL (80-100); RBC Red Blood Cell Count 3.67 M/uL (3.86-4.86)
[2021-12-04 07:11] LABS: ALT/SGPT 55 U/L (12-78); AST/SGOT 45 U/L (15-37); Albumin 2.2 g/dL (3.4-5.0); Alkaline Phosphatase 220 U/L (45-117); BUN Blood Urea Nitrogen < 3 mg/dL (7-18); Bicarbonate 36 mmol/L (21-32); Bilirubin Total 0.3 mg/dL (0.2-1.0); Glomerular Filtration Rate 115 ml/min (=/>90); Glucose Level 103 mg/dL (74-106); Magnesium 1.6 mg/dL (1.8-2.4); NT PRO-BNP 1340 pg/mL (<125); Protein, Total 5.5 g/dL (6.4-8.2); Sodium Level 139 mmol/L (136-145)
[2021-12-04 07:14] LABS: Potassium 2.6 mmol/L (3.5-5.1)
[2021-12-04] MEDS ORDERED: POTASSIUM CL 40 MEQ in NA CHLORIDE 0.9% 500 ML IV SCH (08:00)
[2021-12-04] MEDS: SERTRALINE HCL 100 MG TAB PO SCH (09:00)
[2021-12-04] MEDS: GABAPENTIN 300 MG CAP PO SCH (09:00)
[2021-12-04] MEDS: BUPROPION HCL XL 150 MG TAB PO SCH (09:00)
[2021-12-04] MEDS: ENOXAPARIN 40 MG/0.4 ML SQ SCH (09:25)
[2021-12-04] MEDS: FLUCONAZOLE 400 MG IVPB 400 MG/200 ML BAG IV SCH (09:25)
[2021-12-04 12:31] VITALS: BP 157/75; TEMP 97.8
== END 2021-12-04 16:16 | disposition short-term general hospital (02) | DRG 314 ==
LOC: 4TH 13:44
PROVIDERS: ADMIT Internal Medicine; ATTEND Hospitalist
PROC: 3E0336Z Introduction of Nutritional Substance into Peripheral Vein, Percutaneous Approach (ICD-10-PCS; principal; 2021-12-02)
DX: T82.7XXA Infection and inflammatory reaction due to other cardiac and vascular devices, implants and grafts, initial encounter (principal); A41.52 Sepsis due to Pseudomonas; K50.013 Crohn's disease of small intestine with fistula; D61.818 Other pancytopenia; I10 Essential (primary) hypertension; E78.5 Hyperlipidemia, unspecified; E03.9 Hypothyroidism, unspecified; F32.A Depression, unspecified; N28.1 Cyst of kidney, acquired; K21.9 Gastro-esophageal reflux disease without esophagitis; M48.54XD Collapsed vertebra, not elsewhere classified, thoracic region, subsequent encounter for fracture with routine healing; S24.103D Unspecified injury at T7-T10 level of thoracic spinal cord, subsequent encounter; R91.8 Other nonspecific abnormal finding of lung field; R73.03 Prediabetes; R31.29 Other microscopic hematuria; Z88.1 Allergy status to other antibiotic agents; Z88.8 Allergy status to other drugs, medicaments and biological substances; Z79.01 Long term (current) use of anticoagulants; Z79.4 Long term (current) use of insulin; Z79.52 Long term (current) use of systemic steroids; Z91.040 Latex allergy status; Z79.899 Other long term (current) drug therapy; Z20.822 Contact with and (suspected) exposure to COVID-19
CPT/HCPCS: 36415; 76705; 80048; 80053; 80202; 81001; 82947; 83605; 83735; 83880; 84100; 84145; 85025; 85044; 87040; 87070; 93005; 93306; 97110; 97161; 97530; J1450; J1650; J2185; J2270; J2405; J2550; J3370; J3480; J7040; J7120; J7799; U0003